=== PATIENT | male | born 1940 | race Caucasian/White ===

== ENCOUNTER → 2017-09-18 07:37 | Outpatient (CLI) | payer MEDICARE, OTHER, SELFPAY ==
--- NOTE | 2017-09-18 08:06 | EKG12_ITS ---
Test Reason : PREOP Blood Pressure : / mmHG Vent. Rate : 064 BPM Atrial Rate : 064 BPM P-R Int : 144 ms QRS Dur : 176 ms QT Int : 492 ms P-R-T Axes : 041 122 033 degrees QTc Int : 507 ms Electronic ventricular pacemaker When compared with ECG of 17-NOV-2015 08:43, Vent. rate has decreased BY 12 BPM Confirmed by SHASHANK BAXTER MD ([id number]), newspaper managing editor ENEDINA PALOMINO ([id number] on 09/18/2017 9:01:45 AM Referred By: Raymon Pineda Confirmed By:SHASHANK BAXTER MD
[2017-09-18 08:32] LABS: Hematocrit 38.8 % (40-54); Hemoglobin 12.4 g/dl (13.0-16.5); Mean Corpuscular Hgb 28.6 pg (27.0-32.0); Mean Corpuscular Volume 89.6 fL (80-94); Mean Platelet Vol. 9.5 fl (6.2-12.0); Platelet Count 339 K/mm3 (150-450); RBC Distribution Width CV 15.3 % (11.6-14.6); RBC Distribution Width SD 49.5 fl (35.1-43.9); Red Blood Count 4.33 M/mm3 (4.6-6.2); Scan Indicated on CBC? Y/N NO; White Blood Count 16.6 K/mm3 (4.4-11.0)
[2017-09-18 08:45] LABS: Anion Gap 8 (5-15); BUN 27 mg/dL (7-18); BUN/Creat Ratio 23.3 RATIO (10-20); Calcium,Total 8.6 mg/dL (8.5-10.1); Chloride 108 mmol/L (98-107); Creatinine, Serum 1.16 mg/dL (0.70-1.30); EST Glomerular Filtration Rate 65 mL/min (>60); Est Glom Filt Rate - Afr Amer 78 mL/min (>60); Glucose 121 mg/dL (74-106); Potassium 3.8 mmol/L (3.5-5.1); Sodium Level 146 mmol/L (136-145)
== END ==
PROVIDERS: Family Provider Internal Medicine; PCP Internal Medicine; Visit Provider Specialist
DX: Z01.810 Encounter for preprocedural cardiovascular examination (principal); Z01.818 Encounter for other preprocedural examination
CPT/HCPCS: 36415; 80048; 85027; 93005

== ENCOUNTER → 2017-11-02 09:44 | Outpatient (CLI) | payer MEDICARE, OTHER, SELFPAY ==
[2017-11-02 10:48] LABS: PSA,Total- Diagnostic 0.01 ng/mL (0.0-4.0)
== END ==
PROVIDERS: Family Provider Internal Medicine; PCP Internal Medicine; Visit Provider Radiology Radiation Oncology
DX: Z85.46 Personal history of malignant neoplasm of prostate (principal)
CPT/HCPCS: 36415; 84153

== ENCOUNTER → 2018-02-14 14:13 | Outpatient (CLI) | payer MEDICARE, OTHER, SELFPAY ==
[2018-02-14 15:22] LABS: Absolute Lymphocyte Count 10.83 X10^3/ul (0.83-4.51); Absolute Neutrophil Count 5.3 X10^3/uL (2.0-7.7); Basophil# 0.07 X10^3/uL; Basophil% 0.4 % (0-1); Eosinophil# 0.44 X10^3/uL; Eosinophils% 2.5 % (0-5); Hematocrit 36.3 % (40-54); Hemoglobin 11.6 g/dl (13.0-16.5); Lymphocyte # 10.83 X10^3/ul (4.0); Lymphocyte % 62.2 % (19-41); Mean Corpuscular Hgb 29.1 pg (27.0-32.0); Mean Platelet Vol. 9.7 fl (6.2-12.0); Monocyte# 0.79 X10^3/uL; Monocyte% 4.5 % (0-10); Neutrophil # 5.27 X10^3/uL (2.7-7.7); Neutrophil % 30.3 % (47-70); Platelet Count 282 K/mm3 (150-450); RBC Distribution Width CV 15.4 % (11.6-14.6); RBC Distribution Width SD 50.5 fl (35.1-43.9); Red Blood Count 3.99 M/mm3 (4.6-6.2); White Blood Count 17.4 K/mm3 (4.4-11.0)
[2018-02-14 15:24] LABS: Differential Indicated SCAN CRITERIA MET; POSITIVE COUNT NO; POSITIVE DIFFERENTIAL YES; POSITIVE MORPHOLOGY NO
[2018-02-14 15:39] LABS: ALB/GLOB Ratio 1.2 RATIO (0.9-2.4); AST(SGOT) 17 U/L (15-37); Alanine Aminotransfer ALT/SGPT 22 U/L (16-61); Albumin, Serum 3.3 g/dL (3.2-5.0); Alkaline Phosphatase 83 U/L (45-117); Anion Gap 7 (5-15); BUN 30 mg/dL (7-18); BUN/Creat Ratio 24.6 RATIO (10-20); Calcium,Total 8.9 mg/dL (8.5-10.1); Chloride 107 mmol/L (98-107); Creatinine, Serum 1.22 mg/dL (0.70-1.30); EST Glomerular Filtration Rate 61 mL/min (>60); Est Glom Filt Rate - Afr Amer 74 mL/min (>60); Globulin 2.8 g/dL (2.2-4.2); Glucose 95 mg/dL (74-106); PSA,Total- Diagnostic 0.02 ng/mL (0.0-4.0); Potassium 4.6 mmol/L (3.5-5.1); Protein, Total 6.1 g/dL (6.4-8.2); Sodium Level 144 mmol/L (136-145)
[2018-02-14 15:43] LABS: Differential Comment SCANNED
== END ==
PROVIDERS: Family Provider Internal Medicine; PCP Internal Medicine; Referring Provider Internal Medicine Medical Oncology; Visit Provider Internal Medicine Medical Oncology
DX: C91.10 Chronic lymphocytic leukemia of B-cell type not having achieved remission (principal); C61 Malignant neoplasm of prostate
CPT/HCPCS: 36415; 80053; 84153; 85025

== ENCOUNTER → 2018-04-13 11:37 | Outpatient (CLI) | payer MEDICARE, OTHER, SELFPAY ==
[2018-04-13 12:46] LABS: PSA,Total- Diagnostic 0.01 ng/mL (0.0-4.0)
--- OUTSIDE RECORDS SUMMARY | 2018-06-07 19:55 | XMS RPT_ITS ---
:1940 Author Organization [place] Support Name Relationship Address Phone JENIFER ANN Unavailable [address] + [place] [address] S Unavailable Unavailable Unavailable SETH JENIFER Unavailable [address] + [place] [address] S Unavailable Unavailable Unavailable SETH, JENIFER Unavailable [address] + [place] [address] S Unavailable Unavailable Unavailable SETH, JENIFER Unavailable [address] + [place] [address] S Unavailable Unavailable Unavailable OAWALD, BRYAN Unavailable [address] + [place] [address] OAWALD, BRYAN Unavailable [address] + [place] [address] OAWALD, BRYAN Unavailable [address] + [place] [address] OAWALD, BRYAN Unavailable [address] + [place] [address] SETH, JENIFER Unavailable [address] + [place] [address] S Unavailable Unavailable Unavailable SETH, JENIFER Unavailable [address] + [place] [address] S Unavailable Unavailable Unavailable SETH, JENIFER Unavailable [address] + [place] [address] S Unavailable Unavailable Unavailable OAWALD, BRYAN Unavailable [address] + [place] [address] OAWALD, BRYAN Unavailable [address] + [place] [address] SETH, JENIFER Unavailable [address] + [place] [address] S Unavailable Unavailable Unavailable OAWALD, BRYAN Unavailable [address] + [place] [address] OAWALD, BRYAN Unavailable [address] + [place] [address] OAWALD, BRYAN Unavailable [address] + [place] [address] OAWALD, BRYAN Unavailable [address] + [place] [address] OAWALD, BRYAN Unavailable [address] + [place] [address] OAWALD, BRYAN Unavailable [address] + [place] [address] Care Team Providers Name Role Phone Ean Bush Attending Unavailable Hal Ballard, Betsey Primary Care Unavailable Henry Cooper Referring Unavailable Ean Bush Attending Unavailable Hal Ballard, Betsey Primary Care Unavailable Ean Bush Consulting Unavailable Raymon Pineda Attending Unavailable Raymon Pineda Referring Unavailable Hal Ballard, Betsey Primary Care Unavailable Dominga Regan Attending Unavailable Hal Ballard, Betsey Primary Care Unavailable Dominga Regan Referring Unavailable Juan Banegas Attending Unavailable Raymon Pineda Referring Unavailable Ean Bush Attending Unavailable Ean Bush Referring Unavailable Hal Ballard, Betsey Primary Care Unavailable Ean Bush Attending Unavailable Henry Cooper Referring Unavailable Hal Ballard, Betsey Primary Care Unavailable Ean Bush Consulting Unavailable Henry Cooper Attending Unavailable Hal Ballard, Betsey Primary Care Unavailable Henry Cooper Referring Unavailable BETSEY LARES MD, JR. Attending Unavailable BETSEY LARES MD, JR. Primary Care Unavailable NATALIE LAWSON MD Attending Unavailable BETSEY LARES MD, JR. Primary Care Unavailable BETSEY LARES MD, JR. Attending Unavailable BETSEY LARES MD, JR. Primary Care Unavailable ELIA PALOMINO DO Attending Unavailable BETSEY LARES MD, JR. Primary Care Unavailable BETSEY LARES MD, JR. Attending Unavailable BETSEY LARES MD, JR. Primary Care Unavailable BETSEY LARES MD, JR. Attending Unavailable BETSEY LARES MD, JR. Primary Care Unavailable AG HORNE Attending Unavailable LONNY BARNETT Attending Unavailable LONNY BARNETT Referring Unavailable YOSHI RODRÍGUEZ Referring Unavailable HSICH, LONNY M Referring Unavailable AHMED, ANWAR Attending Unavailable CASSIEICH, LONNY M Referring Unavailable WILKOFF, EPI Referring Unavailable AHMED, ANWAR Referring Unavailable ASIYA OSEI (ERI) Attending Unavailable DESTINEE, ADITHYAWAR Referring Unavailable THERESA BATISAT Referring Unavailable YESSI, EPI Referring Unavailable MORENO AVINA P Referring Unavailable MORENO AVINA P Attending Unavailable BETSEY LARES JR Referring Unavailable RICHARD KATZ Attending Unavailable BETSEY LARES JR Referring Unavailable BETSEY LARES JR Referring Unavailable HSICH, LONNY M Referring Unavailable HSICH, LONNY M Attending Unavailable HSICH, LONNY M Referring Unavailable DOMINGA HAMILTON Referring Unavailable THERESA BATISTA Attending Unavailable EPI DICKSON Referring Unavailable AG HORNE Attending Unavailable AG HORNE Referring Unavailable AG HORNE Referring Unavailable HSICH, LONNY M Attending Unavailable HSICH, LONNY M Referring Unavailable IMCA Primary Care Unavailable AG HORNE Attending Unavailable AG HORNE Referring Unavailable IMCA Referring Unavailable IMCA Primary Care Unavailable AG HORNE Attending Unavailable PROBLEMS PROBLEMS DATE TYPE CONDITION / CODE ATTENDING STATUS SOURCE 02/21/2018 Unknown C61 - Malignant Ean Bush Active [place] neoplasm of prostate Community / C61(ICD-10) Hospital Repository 09/22/2015 Active Left bundle-branch NA Active [facility] block, unspecified / Clinic Main I44.7(ICD-10) [place] Repository 01/23/2018 Active Unknown / [place] Active [facility] UNK(Unknown) [facility] Main [place] Repository 10/06/2016 Active Essential (primary) BATISTA, Active [facility] hypertension / THERESA J Clinic Main I10(ICD-10) [facility] Repository 09/24/2015 Active Other BATISTA, Active [facility] cardiomyopathies / THERESA J Clinic Main I42.8(ICD-10) [facility] Repository 12/05/2017 Active Encounter for BATISTA Active [facility] screening for other THERESA J [facility] Main disorder / [place] Z13.89(ICD-10) Repository 10/06/2016 Active 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, except Clinic Main renal pelvis / [place] C64.2(ICD-10) Repository 08/10/2016 Active Aneurysm of other NA Active [facility] specified arteries / Clinic Main I72.8(ICD-10) [facility] Repository 10/29/2017 Active 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, without Clinic Main rupture / [place] I71.4(ICD-10) Repository 11/02/2017 Unknown Z01.810 - Encounter Juan Banegas Active [place] for preprocedural [facility] examination / Repository Z01.810(ICD-10) 07/19/2017 Active Syncope and collapse COLEEN, Active [facility] / R55(ICD-10) [facility] Clinic Other [place] Repository 07/19/2017 Admitting Unknown / COLEEN, Active [facility] diagnosis UNK(Unknown) [facility] Repository 07/04/2017 Active Other specified NA Active [facility] disorders of kidney Clinic Main and ureter / [place] N28.89(ICD-10) Repository 07/04/2017 Active Polyneuropathy, NA Active [facility] unspecified / Clinic Main G62.9(ICD-10) [facility] Repository 07/04/2017 Active Unspecified NA Active [facility] abnormalities of gait Clinic Main and mobility / [place] R26.9(ICD-10) Repository 07/04/2017 Active Other abnormal NA Active [facility] glucose / Clinic Main R73.09(ICD-10) [facility] Repository 07/04/2017 Active Abnormal finding of Active [facility] blood chemistry, Clinic Main unspecified / [place] R79.9(ICD-10) Repository 07/04/2017 Active 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, [place] unspecified / Repository G60.9(ICD-10) 06/21/2017 Active Encounter for NA Active [facility] examination for Clinic Main normal comparison and [place] control in clinical Repository research program / Z00.6(ICD-10) 09/24/2015 Active Chronic systolic NA Active [facility] (congestive) heart Clinic Main failure / [place] I50.22(ICD-10) Repository PROCEDURES PROCEDURES No Procedure Records FoundRESULTS RESULTS PSA,TOTAL- DIAGNOSTIC Collected: 04/13/2018 Status: F Source: [place] 11:44 AM [facility] HOSPITAL REPOSITORY TYPE CODE TESTS RESULT OUT OF RANGE REFERENCE UNITS LAB L501.9940 0.0-4.0 ng/mL PSA, Normal DIAGNOSTIC 0.01 Result Comment: This test was performed using the TPSA assay method for the [facility] system. Values obtained with different assay methods cannot be used interchangably. When changing PSA assays in the course of monitoring a patient, additional sequential testing should be carried out to confirm baseline values. Performed By: #### L501.9940 #### [facility] [place], [address] PROGRESS Observed: 03/04/2018 Status: COMPLETED Source: [place] 9:00 AM [facility] [place] REPOSITORY HNO ID: [id number] Author: Lonny Barnett Service: (none) Author Type: Physician Type: Progress Notes Filed: 03/04/2018 10:03 AM Note Text: Heart and Vascular [facility] SECTION OF HEART FAILURE and CARDIAC TRANSPLANT MEDICINE OUTPATIENT VISIT DATE March 04, 2018 OUTPATIENT VISIT TYPE Established Patient PRIMARY CARE PHYSICIAN: Betsey Lares Jr, MD [address] [id number] CHIEF COMPLAINT: HF F/u NURSING INTAKE (Patient?s concerns and/or recent hospitalizations/ER visits): HF Nursing Assessment: Interim Hospitalizations and/or ER visits: Chest Pain: no Skipping or irregular heartbeats: no Shortness of breath at rest: no Shortness of breath with activity: no Cough: no Waking up in the middle of the night gasping for air: no Lightheadedness or dizziness: yes with positional changes Feeling like you are going to pass out: no Actually passing out: no Poor energy level: yes Unintentional weight gain: up recently Unintentional weight loss: no Swelling in your legs,feet, abdomen: no Filling up quickly when you eat: no HISTORY OF PRESENT ILLNESS: Patient started norvasc 5 mg daily after last visit and nearly passed out. Feels better after stopping this drug PAST MEDICAL HISTORY Diagnosis Date - Chronic lymphocytic leukemia (HCC) - HTN (hypertension) - Liver cyst - Non-ischemic cardiomyopathy (HCC) - Peripheral neuropathy - Prostate cancer (HCC) s/p external radiation. no resection - Splenic artery aneurysm (HCC) - Subdural hematoma (HCC) summer 2015, after heart stopped and fell, s/p evacuation - Ventricular tachycardia (HCC) in 1983 and 2015 PAST SURGICAL HISTORY Procedure Laterality Date - ARTERIAL EMBOLIZATION, NON-HEMORRHAGE/TUMOR - TEACHING MUSIC LESSONS ICD (ICDCRT) 09/2015 - PAST SURGICAL HISTORY OF Right CMC arthroplasty - PAST SURGICAL HISTORY OF percutaneous splenic artery aneurysm repair SOCIAL HISTORY Social History Substance Use Topics - Smoking status: Never Smoker - Smokeless tobacco: Never Used - Alcohol use Yes Comment: rare use FAMILY HISTORY Problem Relation Age of Onset - Stroke Mother - Hypertension Mother - Diabetes Mother - Diabetes Father - Ischemic Heart Disease Father ALLERGIES: ALLERGIES Allergen Reactions - Lisinopril Cough CURRENT MEDICATIONS: carvedilol (COREG) 25 mg tablet Take 1 tablet by mouth twice daily. ENTRESTO 49-51 mg tablet TAKE 1 TABLET BY MOUTH TWICE DAILY. iv contrast (will be provided with radiology test) CT kidney wow Inject, intravenously, once for 1 dose.No IV access, insert saline lock prior to the beginning of sedation, infusion, injection of imaging exam. Discontinue saline lock post exam. If Pt. has a central line or IVAD, may access for administration according to line specific nursing protocol. Once exam is complete flush line and de-access according to line specific nursing protocol in the CT contrast administration guidelines link. nortriptyline (PAMELOR) 75 mg capsule Take 1 capsule by mouth twice daily. atorvastatin (LIPITOR) 20 mg tablet TAKE 1 TABLET BY MOUTH ONCE DAILY. CHOLECALCIFEROL, VITAMIN D3, (VITAMIN D3 ORAL) Take 1,000 Units by mouth once daily. oxybutynin ER (DITROPAN XL) 10 mg 24 hr tablet Take 10 mg by mouth once daily. Coenzyme Q10 (CO Q-10) 400 mg cap Take 1 capsule by mouth once daily. [id number] serr (OSTEO BI-FLEX, 5-LOXIN,) 1,500-400-100 mg-unit-mg tab Take 1 tablet by mouth once daily. REVIEW OF SYSTEMS: See HPI. PHYSICAL EXAMINATION: BP 124/61 Pulse 70 Ht 177.8 cm (5' 10) Wt 88.5 kg (195 lb) SpO2 94% BMI 27.98 kg/m? which is 3 lbs less than last visit General: no distress, obese, accompanied by family Skin: No clubbing, no cyanosis. Eyes: Anicteric sclerae Neck: Neck veins are not distended, no carotid bruits Lungs: Chest clear to auscultation Heart: Rhythm: regular rate and rhythm, Rate: normal, no murmur Abdomen: Distended, small hematoma right mid lateral quadrant. ?No HSM, normal bowel sounds Extremities:+1 edema right ankle, no edema left leg Component Latest Ref Rng AND Units 05/29/2017 07/04/2017 12/05/2017 Protein, Total 6.3 - 8.0 g/dL 6.1 (L) Albumin 3.9 - 4.9 g/dL 3.9 Calcium 8.5 - 10.2 mg/dL 9.0 9.4 Bilirubin, Total 0.2 - 1.3 mg/dL 0.4 Alkaline Phosphatase 36 - 108 U/L 94 AST 14 - 40 U/L 21 Glucose 74 - 99 mg/dL 106 (H) 87 BUN 9 - 24 mg/dL 21 30 (H) Creatinine 0.73 - 1.22 mg/dL 1.16 1.15 Sodium 136 - 144 mmol/L 142 143 Potassium 3.7 - 5.1 mmol/L 4.4 4.1 Chloride 97 - 105 mmol/L 104 105 CO2 22 - 30 mmol/L 27 26 Anion Gap 9 - 18 mmol/L 11 12 ALT 10 - 54 U/L 18 eGFR- >60 >60 eGFR-All Other Races . >60 >60 WBC 3.70 - 11.00 k/uL 13.80 (H) RBC 4.20 - 6.00 m/uL 4.57 Hemoglobin 13.0 - 17.0 g/dL 13.5 Hematocrit 39.0 - 51.0 % 41.0 MCV 80.0 - 100.0 fL 89.7 MCH 26.0 - 34.0 pG 29.5 MCHC 30.5 - 36.0 g/dL 32.9 RDW-CV 11.5 - 15.0 % 14.6 Platelet Count 150 - 400 k/uL 298 MPV 9.0 - 12.7 fL 9.6 Absolute nRBC <0.01 k/uL <0.01 Cr[place] Free, Serum 3.30 - 19.40 mg/L 12.2 Lambda Free, Serum 5.7 - 26.3 mg/L 14.5 K/L Ratio, Serum 0.26 - 1.65 0.84 Creatinine (POCT) 0.7 - 1.4 mg/dL 1.20 eGFR- (POCT) mL/min/1.73 m2 >60 eGFR-All Other Races (POCT) mL/min/1.73 m2 58 Hemoglobin A1C 4.3 - 5.6 % 6.4 (H) Estimated Average Glucose mg/dL 137 Result (PA) No M protein is identified. No M protein is identified. Staff Review ([facility]) Reviewed by Misbah Turner M.D., PhD ([id number]) [facility] Result No M protein is identified. No M protein is identified. Staff Review ([facility]) Reviewed by Misbah Turner M.D., PhD ([id number]) NT Pro BNP <450 pg/mL ??? CARDIOVASCULAR MEDICINE TESTING: Echocardiogram 07/04/16 LVEF = 34 ? 5% (2D biplane) (Visually EF appears <35%). ? Echo 11/23/17: The left ventricle is dilated. LVEF = 45 ? 5% (visual est.) - The right ventricle is normal in size. Right ventricular systolic function is normal. The left atrial cavity is mildly dilated. - Mild to moderate (1-2+) MR. Mild to moderate (1-2+) AI. Exam was compared with the prior echocardiographic exam performed on 07/04/2016 Ejection fraction and MR have improved. ICD check 02/13/18: PRESENTING EGM: /BV? BATTERY STATUS: Normal and shows no significant depletion.? COUNTERS SINCE : 11/12/17? ATRIAL ARRHYTHMIAS: There have been 0 triggered episodes of atrial high rates. Total time 0%. ? VENTRICULAR ARRHYTHMIAS: There have been no ventricular detections.? LEAD MEASUREMENTS: Sensing is appropriate. Review of the lead impedance trends are normal.? OTHER DIAGNOSTICS: Total V pacing 99.8%.? FOLLOW UP: Continue with 3 month remotes and yearly in-clinic visits. Rina Shea RN ? IMPRESSION Mr. Ann is a 77 year old male with a history of hypertension, LBBB, VT with syncope and non ischemic cardiomyopathy s/p BiV ICD in September 2015 when he was evaluated for heart failure. His admission in September of 2015 was associated with a drop in EF from 54% to 20% within a year in the setting of a syncopal event that was felt to be VT/VF. The etiology of this decline in EF is uncertain and may be due to tachycardia mediated due to VT, LBBB induced or viral/idiopathic. His coronary angiogram did not show obstructive coronary disease. Unfortunately, since September he?developed a subdural hematoma, likely during the syncopal event, which required surgical drainage in early November 2015. He was doing better and at last visit I increased his?Entresto. ?Then I reduced it again in January because he appeared dehydrated and fell after tripping over some stuff around the house. ?In November 2017 he had another fall and has hypertension in my office. I added norvasc 5 mg daily and he became light headed. Norvasc was discontinued and he has done well. Functional?NYHA class II, Stage C. LVEF 45% ?? ?I spent 30?minutes in this visit, with more than 50% of the time devoted to patient counseling. ?? PLAN AND RECOMMENDATIONS: 1. Continue current medications 2. Follow-up with me in 6 months ? Lonny Barnett MD March 04, 2018 9:50 AM ?? CC MD Yoshi Bender Jr, MD CNOV Observed: 03/04/2018 Status: COMPLETED Source: [place] 8:15 AM [facility] REPOSITORY Office Visit (TREV CHF ALEXI) JAIME ANN ([id number]) 1940 M Date Time Provider Department 03/04/18 8:15 AM LONNY BARNETT CHF ALEXI During your visit today, we recorded the following information about you: Pulse Blood pressure Weight Height 70/minute 124/61 88.5 kg 1.778 m Lonny Barnett MD 03/04/2018 10:03 AM [facility] Heart and Vascular [facility] SECTION OF HEART FAILURE and CARDIAC TRANSPLANT MEDICINE OUTPATIENT VISIT DATE March 04, 2018 OUTPATIENT VISIT TYPE Established Patient PRIMARY CARE PHYSICIAN: Betsey Lares Jr, MD [address] [place] [address] CHIEF COMPLAINT: HF F/u NURSING INTAKE (Patient?s concerns and/or recent hospitalizations/ER visits): HF Nursing Assessment: Interim Hospitalizations and/or ER visits: Chest Pain: no Skipping or irregular heartbeats: no Shortness of breath at rest: no Shortness of breath with activity: no Cough: no Waking up in the middle of the night gasping for air: no Lightheadedness or dizziness: yes with positional changes Feeling like you are going to pass out: no Actually passing out: no Poor energy level: yes Unintentional weight gain: up recently Unintentional weight loss: no Swelling in your legs,feet, abdomen: no Filling up quickly when you eat: no HISTORY OF PRESENT ILLNESS: Patient started norvasc 5 mg daily after last visit and nearly passed out. Feels better after stopping this drug PAST MEDICAL HISTORY Diagnosis Date - Chronic lymphocytic leukemia (HCC) - HTN (hypertension) - Liver cyst - Non-ischemic cardiomyopathy (HCC) - Peripheral neuropathy - Prostate cancer (HCC) s/p external radiation. no resection - Splenic artery aneurysm (HCC) - Subdural hematoma (HCC) summer 2015, after heart stopped and fell, s/p evacuation - Ventricular tachycardia (HCC) in 1983 and 2015 PAST SURGICAL HISTORY Procedure Laterality Date - ARTERIAL EMBOLIZATION, NON-HEMORRHAGE/TUMOR - TEACHING MUSIC LESSONS ICD (ICDCRT) 09/2015 - PAST SURGICAL HISTORY OF Right CMC arthroplasty - PAST SURGICAL HISTORY OF percutaneous splenic artery aneurysm repair SOCIAL HISTORY Social History Substance Use Topics - Smoking status: Never Smoker - Smokeless tobacco: Never Used - Alcohol use Yes Comment: rare use FAMILY HISTORY Problem Relation Age of Onset - Stroke Mother - Hypertension Mother - Diabetes Mother - Diabetes Father - Ischemic Heart Disease Father ALLERGIES: ALLERGIES Allergen Reactions - Lisinopril Cough CURRENT MEDICATIONS: carvedilol (COREG) 25 mg tablet Take 1 tablet by mouth twice daily. ENTRESTO 49-51 mg tablet TAKE 1 TABLET BY MOUTH TWICE DAILY. iv contrast (will be provided with radiology test) CT kidney wow Inject, intravenously, once for 1 dose.No IV access, insert saline lock prior to the beginning of sedation, infusion, injection of imaging exam. Discontinue saline lock post exam. If Pt. has a central line or IVAD, may access for administration according to line specific nursing protocol. Once exam is complete flush line and de-access according to line specific nursing protocol in the CT contrast administration guidelines link. nortriptyline (PAMELOR) 75 mg capsule Take 1 capsule by mouth twice daily. atorvastatin (LIPITOR) 20 mg tablet TAKE 1 TABLET BY MOUTH ONCE DAILY. CHOLECALCIFEROL, VITAMIN D3, (VITAMIN D3 ORAL) Take 1,000 Units by mouth once daily. oxybutynin ER (DITROPAN XL) 10 mg 24 hr tablet Take 10 mg by mouth once daily. Coenzyme Q10 (CO Q-10) 400 mg cap Take 1 capsule by mouth once daily. [id number] serr (OSTEO BI-FLEX, 5-LOXIN,) 1,500-400-100 mg-unit-mg tab Take 1 tablet by mouth once daily. REVIEW OF SYSTEMS: See HPI. PHYSICAL EXAMINATION: BP 124/61 Pulse 70 Ht 177.8 cm (5' 10) Wt 88.5 kg (195 lb) SpO2 94% BMI 27.98 kg/m? which is 3 lbs less than last visit General: no distress, obese, accompanied by family Skin: No clubbing, no cyanosis. Eyes: Anicteric sclerae Neck: Neck veins are not distended, no carotid bruits Lungs: Chest clear to auscultation Heart: Rhythm: regular rate and rhythm, Rate: normal, no murmur Abdomen: Distended, small hematoma right mid lateral quadrant. ?No HSM, normal bowel sounds Extremities:+1 edema right ankle, no edema left leg Component Latest Ref Rng AND Units 05/29/2017 07/04/2017 12/05/2017 Protein, Total 6.3 - 8.0 g/dL 6.1 (L) Albumin 3.9 - 4.9 g/dL 3.9 Calcium 8.5 - 10.2 mg/dL 9.0 9.4 Bilirubin, Total 0.2 - 1.3 mg/dL 0.4 Alkaline Phosphatase 36 - 108 U/L 94 AST 14 - 40 U/L 21 Glucose 74 - 99 mg/dL 106 (H) 87 BUN 9 - 24 mg/dL 21 30 (H) Creatinine 0.73 - 1.22 mg/dL 1.16 1.15 Sodium 136 - 144 mmol/L 142 143 Potassium 3.7 - 5.1 mmol/L 4.4 4.1 Chloride 97 - 105 mmol/L 104 105 CO2 22 - 30 mmol/L 27 26 Anion Gap 9 - 18 mmol/L 11 12 ALT 10 - 54 U/L 18 eGFR- >60 >60 eGFR-All Other Races . >60 >60 WBC 3.70 - 11.00 k/uL 13.80 (H) RBC 4.20 - 6.00 m/uL 4.57 Hemoglobin 13.0 - 17.0 g/dL 13.5 Hematocrit 39.0 - 51.0 % 41.0 MCV 80.0 - 100.0 fL 89.7 MCH 26.0 - 34.0 pG 29.5 MCHC 30.5 - 36.0 g/dL 32.9 RDW-CV 11.5 - 15.0 % 14.6 Platelet Count 150 - 400 k/uL 298 MPV 9.0 - 12.7 fL 9.6 Absolute nRBC <0.01 k/uL <0.01 [place] Free, Serum 3.30 - 19.40 mg/L 12.2 Lambda Free, Serum 5.7 - 26.3 mg/L 14.5 K/L Ratio, Serum 0.26 - 1.65 0.84 Creatinine (POCT) 0.7 - 1.4 mg/dL 1.20 eGFR- (POCT) mL/min/1.73 m2 >60 eGFR-All Other Races (POCT) mL/min/1.73 m2 58 Hemoglobin A1C 4.3 - 5.6 % 6.4 (H) Estimated Average Glucose mg/dL 137 Result ([facility]) No M protein is identified. No M protein is identified. Staff Review ([facility]) Reviewed by Misbah Turner M.D., PhD ([id number]) [facility] Result No M protein is identified. No M protein is identified. Staff Review ([facility]) Reviewed by Misbah Turner M.D., PhD ([id number]) NT Pro BNP <450 pg/mL ??? CARDIOVASCULAR MEDICINE TESTING: Echocardiogram 07/04/16 LVEF = 34 ? 5% (2D biplane) (Visually EF appears <35%). ? Echo 11/23/17: The left ventricle is dilated. LVEF = 45 ? 5% (visual est.) - The right ventricle is normal in size. Right ventricular systolic function is normal. The left atrial cavity is mildly dilated. - Mild to moderate (1-2+) MR. Mild to moderate (1-2+) AI. Exam was compared with the prior echocardiographic exam performed on 07/04/2016 Ejection fraction and MR have improved. ICD check 02/13/18: PRESENTING EGM: /BV? BATTERY STATUS: Normal and shows no significant depletion.? COUNTERS SINCE : 11/12/17? ATRIAL ARRHYTHMIAS: There have been 0 triggered episodes of atrial high rates. Total time 0%. ? VENTRICULAR ARRHYTHMIAS: There have been no ventricular detections.? LEAD MEASUREMENTS: Sensing is appropriate. Review of the lead impedance trends are normal.? OTHER DIAGNOSTICS: Total V pacing 99.8%.? FOLLOW UP: Continue with 3 month remotes and yearly in-clinic visits. Rina Shea RN ? IMPRESSION Mr. Ann is a 77 year old male with a history of hypertension, LBBB, VT with syncope and non ischemic cardiomyopathy s/p BiV ICD in September 2015 when he was evaluated for heart failure. His admission in September of 2015 was associated with a drop in EF from 54% to 20% within a year in the setting of a syncopal event that was felt to be VT/VF. The etiology of this decline in EF is uncertain and may be due to tachycardia mediated due to VT, LBBB induced or viral/idiopathic. His coronary angiogram did not show obstructive coronary disease. Unfortunately, since September he?developed a subdural hematoma, likely during the syncopal event, which required surgical drainage in early November 2015. He was doing better and at last visit I increased his?Entresto. ?Then I reduced it again in January because he appeared dehydrated and fell after tripping over some stuff around the house. ?In November 2017 he had another fall and has hypertension in my office. I added norvasc 5 mg daily and he became light headed. Norvasc was discontinued and he has done well. Functional?NYHA class II, Stage C. LVEF 45% ?? ?I spent 30?minutes in this visit, with more than 50% of the time devoted to patient counseling. ?? PLAN AND RECOMMENDATIONS: 1. Continue current medications 2. Follow-up with me in 6 months ? Lonny Barnett MD March 04, 2018 9:50 AM ?? CC MD Yoshi Bender Jr, MD Referring Provider: LONNY BARNETT [[id number]] Allergies As of Date: 03/04/2018 Noted Allergy Reaction LISINOPRIL 07/04/2016 3 - Cough Date Reviewed: 03/04/2018 Reviewed by: Venkata (Rn) JOSE DE JESUS Wilson - Fully Assessed Reason for Visit: Follow Up [171] Primary Visit Diagnosis:Chronic systolic CHF (congestive heart failure) (HCC) [I50.22] Other Visit Diagnoses:LBBB (left bundle branch block) [I44.7] Cardiomyopathy, nonischemic (HCC) [I42.8] VT (ventricular tachycardia) (HCC) [I47.2] Biventricular ICD (implantable cardioverter-defibrillator) in place [Z95.810] Syncope and collapse [R55] Subdural hematoma (HCC) [S06.5X9A] Essential hypertension [I10] Order(s):atorvastatin (LIPITOR) 20 mg tabletTake 1 tablet by mouth once daily.Disp: 30 tabletRfl: 11 Prescriptions as of 03/04/2018 Sig: ATORVASTATIN 20 MG TABLET Take 1 tablet by mouth once d* CARVEDILOL 25 MG TABLET Take 1 tablet by mouth twice * ENTRESTO 49 MG-51 MG TABLET TAKE 1 TABLET BY MOUTH TWICE * IV CONTRAST (RADIOLOGY PROCED* CT kidney wow Inject, intrave* NORTRIPTYLINE 75 MG CAPSULE Take 1 capsule by mouth twice* VITAMIN D3 ORAL Take 1,000 Units by mouth onc* OXYBUTYNIN CHLORIDE ER 10 MG * Take 10 mg by mouth once percy* COENZYME Q10 400 MG CAPSULE Take 1 capsule by mouth once * GLUCOSAMINE [id number] * Take 1 tablet by mouth once d* Problem List As Of Date 03/04/2018 Noted Resolved Left bundle branch block [I44.7] INVALID FOR* Priority: C Hypertension [I10] INVALID FOR*10/06/2016 More... Near syncope [R55] INVALID FOR* Hx of ventricular tachycardia [Z86.79] INVALID FOR* Splenic artery aneurysm (HCC) [I72.8] INVALID FOR* Cellulitis due to MRSA [L03.90, B95.62] INVALID FOR* Syncope [R55] INVALID FOR* Priority: A More... SUMMARY INVALID FOR* Priority: Mild More... 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 Medications Discontinued During This Encounter sacubitril-valsartan (ENTRESTO) 24-2* 60 t* 11 02/16/2017 03/04/2018 Route: ORAL Sig: Take 1 tablet by mouth twice daily. Disc: Changing Therapy/Dosage Form atorvastatin (LIPITOR) 20 mg tablet 30 t* 11 06/12/2017 03/04/2018 Sig: TAKE 1 TABLET BY MOUTH ONCE DAILY. Disc: Reason for discontinue is not on file. Disposition: Return in about 6 months (around 09/02/2018). Follow-up and Disposition History Recorded Encounter Status:Closed by LONNY BARNETT MD on 03/04/18 ONCOLOGY VISIT REPORT Observed: 02/21/2018 Status: F Source: [place] 2:00 PM [facility] REPOSITORY [facility] [address] [place] [id number] OFFICE VISIT Date of Service: 02/21/18 1355 MR#: [id number] Acct: [id number] Name: JAIME ANN Gab Rep #: [id number] : 1940 From: Ean Bush MD Age/Sex: 77/M Location: OMD Status: Signed Subjective - Date of Service Date of Service:: 02/21/18 - Chief Complaint F/u for CLL and Prostate cancer.. - History of Present Illness 77y.o.man was diagnosed with CLL stage 0 in 2003. He has not required therapy. He was diagnosed with Prostate Cancer stage IIA, finished Radiation therapy in July 2015 and on LHRH agonist by Dr. Cooper. Comes in for follow up. He feels well. - Past Medical/Social History Past Medical History Past Medical History: Hypertension Other Past Medical History: Ventricular Tachycardia Cancer: Leukemia,Prostate cancer Past Surgical History Surgical: Colonoscopy,Pacemaker Other Surgical History: Surgery to remove blood from brain after a fall. Family History Paternal Past Medical History: Heart disease Maternal Past Medical History: Stroke Social History Social History: No changes Smoking Status Never smoker Review of Systems Constitutional:: Denies: Fever, Sweats, Weight loss, Appetite change, Chills Cardiovascular:: Denies: Chest pain, Palpitations, Dyspnea on exertion, Orthopnea, PND, Shortness of breath Respiratory: Denies: Cough, Hemoptysis, Shortness of Breath, Wheezing Gastrointestinal:: Denies: Abdominal pain, Nausea, Vomiting, Diarrhea, Constipation, Hematochezia Genitourinary: Denies: Dysuria, Hematuria, 15, Flank pain Musculoskeletal:: Denies: Back pain, Myalgia, Arthralgia Skin: Denies: Rash, Skin Changes, Wounds Neurological:: Denies: Headache, Dizziness, Visual changes, Tinnitus, Hearing loss Psychiatric: Denies: Anxiety, Depression, Homicidal Ideations, Suicidal Ideations Vital Signs Height 5 ft 10 in Weight: 88.768 kg Weight in Pounds 195.7 lbs Pulse Ox 96 - Physical Exam General: Alert, Oriented x3, No apparent distress HEENT: Atraumatic, PERRLA, EOMI, Normocephalic Oropharynx:: Dry mucosa Neck:: Supple, Trachea midline. Negative for: JVD, bilateral Cardiac:: Regular rate, Regular rhythm, Normal S1, Normal S2. Negative for: Murmur Lungs: Clear to auscultation, Excusion symmetrical. Negative for: Rhonchi, Wheezes Abdomen:: Bowel sounds x 4, Soft, Non-tender, Non-distended. Negative for: Hepatosplenomegaly Extremities:: Negative for: Cyanosis, Edema Neurological: Neuro grossly intact Skin:: Negative for: Lesions, Rash, Petechiae, Ecchymosis Psychiatric:: Appropriate affect, Euthymic Lymphatics:: Negative for: Cervical lymphadenopathy, Supraclavicular lymphadenopathy, Axillary lymphadenopathy Laboratory Data: Laboratory Tests WBC Hgb Hct Plt Count Absolute Neuts (auto) Absolute Lymphs (auto) Creatinine 1.22 Total PSA 0.02 Assessment and Plan CLL-stage 0, clinically stable. Prostate cancer, PSA undetectable. Plan is to continue observation. Continue follow up with urology. RTC 6 months with CBC/CMP/LDH/PSA. Medications: Prescriptions This Visit Medication Instructions Recorded Primary Care Provider: Betsey Lares Referring Provider: - Problem List (1) CLL (chronic lymphocytic leukemia) Status: Chronic (2) Prostate cancer Status: Chronic Code Visit Office Visits / Consults: 23778 OV L3 Est 02/21/18 1400 <Electronically signed by Ean Bush MD> Date Ean Bush MD Cosigner Signature: Date (if applicable) CC: Betsey Lares Jr., MD CBC W/DIFF, AUTOMATED Collected: 02/14/2018 Status: F Source: [place] 2:27 PM [facility] REPOSITORY Order Comment: Reason for Laboratory Test . TYPE CODE TESTS RESULT OUT OF RANGE REFERENCE UNITS LAB L100.1000 4.4-11.0 K/mm3 High WBC 17.4 LAB L100.1200 4.6-6.2 M/mm3 Low RBC 3.99 LAB L100.1300 13.0-16.5 g/dl Low HGB 11.6 LAB L100.1400 40-54 % Low HCT 36.3 LAB L100.1500 80-94 fL Normal MCV 91.0 LAB L100.1600 27.0-32.0 pg Normal MCH 29.1 LAB L100.1700 32-36 g/gl Normal MCHC 32.0 LAB L100.1810 11.6-14.6 % High RDW CV 15.4 LAB L100.1820 35.1-43.9 fl High RDW SD 50.5 LAB L100.1900 150-450 K/mm3 Normal PLT 282 LAB L100.2000 6.2-12.0 fl Normal MPV 9.7 LAB L100.2100 47-70 % Low NEUT% 30.3 LAB L100.2200 19-41 % High LY% 62.2 LAB L100.2300 0-10 % Normal MONO% 4.5 LAB L100.2400 0-5 % Normal EO% 2.5 LAB L100.2500 0-1 % Normal BASO% 0.4 LAB L100.2550 0.0-0.9 % Normal IM GRAN % 0.100 Result Comment: IG% - Immature Granulocytes (promyelocytes, myelocytes and metamyelocytes) > 1% indicates that a LEFT SHIFT is Present. LAB L100.2620 2.0-7.7 X10 3/uL Normal Absolute Neut 5.3 LAB L100.2720 0.83-4.51 X10 3/ul High Absolute Lymph 10.83 LAB L100.4500 Normal SMEAR COMMENT SCANNED Result Comment: LYMPHOCYTOSIS NOTED Performed By: #### L100.0100, L500.4050, L501.9940 #### [facility] [address] [place], [place], [address] COMPREHENSIVE METABOLIC Collected: 02/14/2018 Status: F Source: [facility] 2:27 PM [facility] REPOSITORY Order Comment: Reason for Laboratory Test . TYPE CODE TESTS RESULT OUT OF RANGE REFERENCE UNITS LAB L501.0100 74-106 mg/dL Normal GLU 95 Result Comment: Please note revised GLUCOSE reference range effective 2017. LAB L501.1000 7-18 mg/dL High BUN 30 LAB L501.1100 0.70-1.30 mg/dL Normal CREAT,SERUM 1.22 Result Comment: The validity of the calculated GFR AND GFRAA in patients over 70 years has not been determined. Clinical correlation is essential. LAB L501.1110 >60 mL/min Normal EST GFR 61 Result Comment: Non- GFR Calc LAB L501.1115 >60 mL/min Normal EST GFR - AA 74 Result Comment: GFR Calc LAB L501.1300 10-20 RATIO High BUN/CRE 24.6 LAB L501.1500 6.4-8.2 g/dL Low T PROT 6.1 LAB L501.1800 3.2-5.0 g/dL Normal ALB 3.3 LAB L501.1950 2.2-4.2 g/dL Normal GLOB 2.8 LAB L501.2000 0.9-2.4 RATIO Normal A/G 1.2 LAB L501.2200 8.5-10.1 mg/dL CA Normal 8.9 LAB L501.4100 15-37 U/L Normal AST 17 LAB L501.4305 45-117 U/L Normal ALK P 83 LAB L501.4405 16-61 U/L Normal ALT 22 LAB L501.4600 0.20-1.00 mg/dL T Normal BILI 0.30 LAB L501.5300 136-145 mmol/L NA Normal 144 LAB L501.5600 3.5-5.1 mmol/L K Normal 4.6 LAB L501.5900 98-107 mmol/L CL Normal 107 LAB L501.6100 21.0-32.0 mmol/L Normal CO2 30.0 LAB L501.6200 5-15 Normal GAP 7 Performed By: #### L100.0100, L500.4050, L501.9940 #### [facility] [address] [place], [address] PSA,TOTAL- DIAGNOSTIC Collected: 02/14/2018 Status: F Source: [place] 2:27 PM [facility] REPOSITORY Order Comment: Reason for Laboratory Test . TYPE CODE TESTS RESULT OUT OF RANGE REFERENCE UNITS LAB L501.9940 0.0-4.0 ng/mL PSA, Normal DIAGNOSTIC 0.02 Result Comment: This test was performed using the TPSA assay method for the Regalister chemistry system. Values obtained with different assay methods cannot be used interchangably. When changing PSA assays in the course of monitoring a patient, additional sequential testing should be carried out to confirm baseline values. Performed By: #### L100.0100, L500.4050, L501.9940 #### [facility] [address] [place], [address] CBC Collected: 02/14/2018 Status: F Source: [facility] 8:23 AM [facility] REPOSIT[facility] TYPE CODE TESTS RESULT OUT OF REFERENCE UNITS RANGE LAB WBC(LOINC) 4.60-10.80 10 3/mcL High WBC 18.10 LAB RBCCT(LOINC 4.04-6.13 10 6/mcL ) RBC 4.31 LAB HGB(LOINC) 14.0-18.0 G/dL Low Hgb 12.4 LAB HCT(LOINC) 42.0-52.0 % Low Hct 38.3 LAB MCV(LOINC) 80.0-94.0 fL MCV 88.9 LAB MCH(LOINC) 27.0-31.2 pg MCH 28.8 LAB MCHC(LOINC) 31.8-35.4 G/dL MCHC 32.4 LAB RDW(LOINC) 11.5-14.5 % High RDW 15.9 LAB PLT(LOINC) 130-400 10 3/mcL Platelet 288 LAB MPV(LOINC) 7.4-10.4 fL MPV 7.5 Performed By: #### CBC, MORPH, DIFF #### [id number] [place], [place] [address] .MANUAL DIFF Collected: 02/14/2018 Status: F Source: [facility] 8:23 AM [facility] REPOSITORY TYPE CODE TESTS RESULT OUT OF REFERENCE UNITS RANGE LAB NEUM(LOINC 37.0-80.0 % ) Low Neutrophil %, 29.0 Manual LAB LYMM(LOINC 10.0-50.0 % ) Lymphocyte %, 49.0 Manual LAB MONM(LOINC 1.7-13.0 % ) Monocyte %, Manual 2.0 LAB EOM(LOINC) 0.0-7.0 % Eosinophil %, 2.0 Manual LAB BASM(LOINC 0.0-2.5 % ) Basophil High %, Manual 3.0 LAB ALYM(LOINC 0.0-5.0 % ) Atypical High Lymphs 15.0 LAB ANEUM(LOIN 2.85-6.16 10 3/mcL C) Neutrophil, Abs 5.00 Manual LAB ABLYMM(AXEL 0.77-3.85 10 3/mcL NC) High Lymphocyte, Abs 11.60 Manual LAB AMONM(LOIN 0.15-1.00 10 3/mcL C) Monocyte, Abs 0.40 Manual LAB AEOSM(LOIN 0.00-0.40 10 3/mcL C) Eosinophil, Abs 0.40 Manual LAB ABASM(LOIN 0.00-0.19 10 3/mcL C) High Basophil, Abs 0.50 Manual Performed By: #### CBC, MORPH, DIFF #### [address] [place], [place] [address] .MORPH Collected: 02/14/2018 Status: F Source: [facility] 8:23 AM [facility] REPOSITORY TYPE CODE TESTS RESULT OUT OF REFERENCE UNITS RANGE LAB PLTE(LOINC ) Platelet Normal Estimate LAB POIK(LOINC ) Poik Slight LAB SMUD(LOINC ) Smudge Cells Several Performed By: #### CBC, MORPH, DIFF #### [address] [place], [place] [address] CNNURSE Observed: 01/23/2018 Status: COMPLETED Source: [place] 3:45 PM [facility] REPOSITORY Nurse Visit (CAWSTR) JAIME ANN ([id number]) 1940 M Date Time Provider Department 01/23/18 3:45 PM NURSE CARD ADMIN [facility] WSTR CAWSTR During your visit today, we recorded the following information about you: Missy Barry MA 01/28/2018 10:38 AM Signed EKG completed and given to Dr Horne for review. Missy Barry MA Referring Provider: AG HORNE [[id number]] Allergies As of Date: 01/23/2018 Noted Allergy Reaction LISINOPRIL 07/04/2016 3 - Cough Date Reviewed: 01/23/2018 Reviewed by: Gabriela (Rn) Twin - Fully Assessed Visit Diagnosis:VT (ventricular tachycardia) ([facility]) [I47.2] Prescriptions as of 01/23/2018 Sig: CARVEDILOL 25 MG TABLET Take 1 tablet by mouth twice * ENTRESTO 49 MG-51 MG TABLET TAKE 1 TABLET BY MOUTH TWICE * IV CONTRAST (RADIOLOGY PROCED* CT kidney wow Inject, intrave* NORTRIPTYLINE 75 MG CAPSULE Take 1 capsule by mouth twice* ATORVASTATIN 20 MG TABLET TAKE 1 TABLET BY MOUTH ONCE D* SACUBITRIL 24 MG-VALSARTAN 26* Take 1 tablet by mouth twice * VITAMIN D3 ORAL Take 1,000 Units by mouth onc* OXYBUTYNIN CHLORIDE ER 10 MG * Take 10 mg by mouth once percy* COENZYME Q10 400 MG CAPSULE Take 1 capsule by mouth once * GLUCOSAMINE [id number] * Take 1 tablet by mouth once d* Problem List As Of Date 01/23/2018 Noted Resolved Left bundle branch block [I44.7] INVALID FOR* Priority: C Hypertension [I10] INVALID FOR*10/06/2016 More... Near syncope [R55] INVALID FOR* Hx of ventricular tachycardia [Z86.79] INVALID FOR* Splenic artery aneurysm (HCC) [I72.8] INVALID FOR* Cellulitis due to MRSA [L03.90, B95.62] INVALID FOR* Syncope [R55] INVALID FOR* Priority: A More... SUMMARY INVALID FOR* Priority: Mild More... 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] INVALID FOR* Peripheral polyneuropathy (HCC) [G62.9] INVALID FOR* Abnormality of gait [R26.9] INVALID FOR* Disturbance of skin sensation [R20.9] INVALID FOR* Pain in both lower extremities [M79.604, M79.60*INVALID FOR* Abnormal finding of blood chemistry [R79.9] INVALID FOR* Abnormal glucose [R73.09] INVALID FOR* Visit Notes: >> Missy Barry MA Mon Jan 28, 2018 10:37 AM Status: Signed EKG completed and given to Dr Horne for review. Missy Barry MA Encounter Status:Closed by MISSY BARRY MA on 01/29/18 CNNURSE Observed: 01/23/2018 Status: COMPLETED Source: [place] 3:45 PM [facility] REPOSITORY Nurse Visit (CAWSTR) JAIME ANN ([id number]) 1940 M Date Time Provider Department 01/23/18 3:45 PM [facility] During your visit today, we recorded the following information about you: Referring Provider: AG HORNE [[id number]] Allergies As of Date: 01/23/2018 Noted Allergy Reaction LISINOPRIL 07/04/2016 3 - Cough Date Reviewed: 01/23/2018 Reviewed by: Gabriela BanksRn) Twin - Fully Assessed Reason for Visit: Nurse Visit [792] Visit Diagnosis:Left bundle branch block [I44.7] Order(s):ECG COMPLETE W INTERPRETATION [ECG01] Order #: [id number] Prescriptions as of 01/23/2018 Sig: CARVEDILOL 25 MG TABLET Take 1 tablet by mouth twice * ENTRESTO 49 MG-51 MG TABLET TAKE 1 TABLET BY MOUTH TWICE * IV CONTRAST (RADIOLOGY PROCED* CT kidney wow Inject, intrave* NORTRIPTYLINE 75 MG CAPSULE Take 1 capsule by mouth twice* ATORVASTATIN 20 MG TABLET TAKE 1 TABLET BY MOUTH ONCE D* SACUBITRIL 24 MG-VALSARTAN 26* Take 1 tablet by mouth twice * VITAMIN D3 ORAL Take 1,000 Units by mouth onc* OXYBUTYNIN CHLORIDE ER 10 MG * Take 10 mg by mouth once percy* COENZYME Q10 400 MG CAPSULE Take 1 capsule by mouth once * GLUCOSAMINE [id number] * Take 1 tablet by mouth once d* Problem List As Of Date 01/23/2018 Noted Resolved Left bundle branch block [I44.7] INVALID FOR* Priority: C Hypertension [I10] INVALID FOR*10/06/2016 More... Near syncope [R55] INVALID FOR* Hx of ventricular tachycardia [Z86.79] INVALID FOR* Splenic artery aneurysm (HCC) [I72.8] INVALID FOR* Cellulitis due to MRSA [L03.90, B95.62] INVALID FOR* Syncope [R55] INVALID FOR* Priority: A More... SUMMARY INVALID FOR* Priority: Mild More... 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] INVALID FOR* Peripheral polyneuropathy (HCC) [G62.9] INVALID FOR* Abnormality of gait [R26.9] INVALID FOR* Disturbance of skin sensation [R20.9] INVALID FOR* Pain in both lower extremities [M79.604, M79.60*INVALID FOR* Abnormal finding of blood chemistry [R79.9] INVALID FOR* Abnormal glucose [R73.09] INVALID FOR* Encounter Status:Closed by OTF RUSSELL RN on 01/30/18 PROGRESS Observed: 01/23/2018 Status: COMPLETED Source: [place] 11:44 AM [facility] REPOSITORY HNO ID: [id number] Author: Ag Horne Service: (none) Author Type: Physician Type: Progress Notes Filed: 01/23/2018 1:03 PM Note Text: PERTINENT CARDIAC HISTORY Cardiomyopathy - nonischemic, 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 2015, no recurrence Orthostatic hypotension HL LBBB Splenic artery aneurysm - coil ADHERENCE TO GUIDELINES HERACLIO-I or ARB for HF with prior LVEF<40 (NQF 0081) - met ASA or Plavix for ASHD (NQF 0067) - met Beta domingo for ASHD with prior PA or prior LVEF<40 (NQF 0070) - met Beta domingo for HF with prior LVEF<40 (NQF 0083) - met HERACLIO-I or ARB for ASHD with DM or prior LVEF<40 (NQF 0066) - met Statin therapy for ASHD or FHL or DM - met BMI documented and plan if >25 (NQF 0421) - lifestyle recommendation form Tobacco use screening and referral (NQF 0028) - lifestyle recommendation form Recommendation for whole food, plant based diet - lifestyle recommendation form CLINICAL IMPRESSION/PLAN: Jaime Ann has stable nonischemic myopathy. He is well compensated. There is no evidence of volume overload. Blood pressure Is Borderline Low. I Advised Him to Discontinue Amlodipine and Go Back to Taking His Carvedilol Twice Daily. I Asked Him to Contact Me in One Week with Vital Signs. We Can Make Further Adjustments As Necessary. He Will Continue His Current Dose of Entresto. He Reports That Labs Are Being Followed at Primary Care. I Advised Him to Keep His Follow-Up Visit in Heart Failure Clinic Next Month. I Will See Him in 8 Months or As Needed. If There Is Increased Shortness of Breath or Chest Pain, He Has Been Advised to Contact me Written and verbal health teaching given to patient, patient verbalizes understanding and agrees with treatment plan. DIAGNOSIS FOR VISIT: Cardiomyopathy Postural hypotension HISTORY OF PRESENT ILLNESS Jaime Ann returns for follow-up of his nonischemic cardio myopathy. He was recently seen in the heart failure clinic. Amlodipine was added for better blood pressure control. Shortly thereafter, he called stating that his blood pressure was very low and he was lightheaded. His amlodipine was interrupted transiently. I advised him to restart at half dose, but he apparently did not get this message. He discontinued his evening dose of carvedilol and went back on amlodipine. He continues to have problems with lightheadedness. Blood pressures have been occasionally less than 100 systolic. He's had no chest discomfort. He denies orthopnea. He's had minimal edema. He's had no syncope, palpitations, TIAs, amaurosis. He has received no therapies from his device. He recently had an EP evaluation. ALLERGIES: ALLERGIES Allergen Reactions - Lisinopril Cough CURRENT OUTPATIENT MEDICATIONS: ENTRESTO 49-51 mg tablet TAKE 1 TABLET BY MOUTH TWICE DAILY. nortriptyline (PAMELOR) 75 mg capsule Take 1 capsule by mouth twice daily. amLODIPine (NORVASC) 5 mg tablet Take 1 tablet by mouth once daily. carvedilol (COREG) 25 mg tablet Take 1 tablet by mouth twice daily. atorvastatin (LIPITOR) 20 mg tablet TAKE 1 TABLET BY MOUTH ONCE DAILY. sacubitril-valsartan (ENTRESTO) 24-26 mg tablet Take 1 tablet by mouth twice daily. CHOLECALCIFEROL, VITAMIN D3, (VITAMIN D3 ORAL) Take 1,000 Units by mouth once daily. oxybutynin ER (DITROPAN XL) 10 mg 24 hr tablet Take 10 mg by mouth once daily. Coenzyme Q10 (CO Q-10) 400 mg cap Take 1 capsule by mouth once daily. qlxhanzteop-W7-htvvjtriq serr (OSTEO BI-FLEX, 5-LOXIN,) 1,500-400-100 mg-unit-mg tab Take 1 tablet by mouth once daily. iv contrast (will be provided with radiology test) CT kidney wow Inject, intravenously, once for 1 dose.No IV access, insert saline lock prior to the beginning of sedation, infusion, injection of imaging exam. Discontinue saline lock post exam. If Pt. has a central line or IVAD, may access for administration according to line specific nursing protocol. Once exam is complete flush line and de-access according to line specific nursing protocol in the CT contrast administration guidelines link. PHYSICAL EXAMINATION: VITAL SIGNS: BP 107/64 Pulse 80 Wt 192 lb 3.2 oz (87.2kg) Chest: Clear to auscultation. Trachea is midline. Air entry is equal. Cardiac: Regular rhythm. S1 and S2 are normal. PMI is Displaced. There is a soft murmur of mitral insufficiency. Carotids are brisk without bruits. JVP is less than 10 cm. Abdomen: Soft and nontender. There are no pulsatile masses or bruits. No liver enlargement. Bowel sounds are active. Extremities: No edema. Pulses are intact and symmetrical. EKG shows AV sequential pacemaker. Electronically Signed: Ag Horne MD January 23, 2018 11:44 AM CC: Betsey Lares Jr, MD EKG1 Observed: 01/23/2018 Status: F Source: [place] 11:24 AM [facility] REPOSITORY NAME : JAIME ANN PID : [id number] : 1940 Gender : Male Race : ORD : Procedure Date : Jan 23 2018 11:24:23 Edit Date : Jan 25 2018 09:59:13 Diagnosis:AV SEQUENTIAL OR DUAL CHAMBER ELECTRONIC PACEMAKER Confirmed by AG HORNE MD ([id number]) on 01/25/2018 9:47:48 AM Ventricular Rate : 60 BPM Atrial Rate : 65 BPM QRS Duration : 176 ms Q-T Interval : 480 ms QTC Calculation(Bezet) : 480 ms R [place] : 217 degrees T [place] : 30 degrees Test Reason : Location : 136 : [facility] Overread By : AG HORNE MD Edited By : AG HORNE MD Referred By : AG HORNE Acquired by : MAEVE MCCOLLUM Observed: 01/23/2018 Status: COMPLETED Source: [place] 10:30 AM [facility] REPOSITORY Office Visit (CAWSTR) JAIME ANN ([id number]) 1940 M Date Time Provider Department 01/23/18 10:30 AM AG HORNE CAWSTR During your visit today, we recorded the following information about you: Pulse Blood pressure Weight 80/minute 107/64 87.2 kg Ag Horne MD 01/23/2018 1:03 PM Signed PERTINENT CARDIAC HISTORY Cardiomyopathy - nonischemic, 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 2015, no recurrence Orthostatic hypotension HL LBBB Splenic artery aneurysm - coil ADHERENCE TO GUIDELINES HERACLIO-I or ARB for HF with prior LVEF<40 (NQF 0081) - met ASA or Plavix for ASHD (NQF 0067) - met Beta domingo for ASHD with prior PA or prior LVEF<40 (NQF 0070) - met Beta domingo for HF with prior LVEF<40 (NQF 0083) - met HERACLIO-I or ARB for ASHD with DM or prior LVEF<40 (NQF 0066) - met Statin therapy for ASHD or FHL or DM - met BMI documented and plan if >25 (NQF 0421) - lifestyle recommendation form Tobacco use screening and referral (NQF 0028) - lifestyle recommendation form Recommendation for whole food, plant based diet - lifestyle recommendation form CLINICAL IMPRESSION/PLAN: Jaime Ann has stable nonischemic myopathy. He is well compensated. There is no evidence of volume overload. Blood pressure Is Borderline Low. I Advised Him to Discontinue Amlodipine and Go Back to Taking His Carvedilol Twice Daily. I Asked Him to Contact Me in One Week with Vital Signs. We Can Make Further Adjustments As Necessary. He Will Continue His Current Dose of Entresto. He Reports That Labs Are Being Followed at Primary Care. I Advised Him to Keep His Follow-Up Visit in Heart Failure Clinic Next Month. I Will See Him in 8 Months or As Needed. If There Is Increased Shortness of Breath or Chest Pain, He Has Been Advised to Contact me Written and verbal health teaching given to patient, patient verbalizes understanding and agrees with treatment plan. DIAGNOSIS FOR VISIT: Cardiomyopathy Postural hypotension HISTORY OF PRESENT ILLNESS Jaime Ann returns for follow-up of his nonischemic cardio myopathy. He was recently seen in the heart failure clinic. Amlodipine was added for better blood pressure control. Shortly thereafter, he called stating that his blood pressure was very low and he was lightheaded. His amlodipine was interrupted transiently. I advised him to restart at half dose, but he apparently did not get this message. He discontinued his evening dose of carvedilol and went back on amlodipine. He continues to have problems with lightheadedness. Blood pressures have been occasionally less than 100 systolic. He's had no chest discomfort. He denies orthopnea. He's had minimal edema. He's had no syncope, palpitations, TIAs, amaurosis. He has received no therapies from his device. He recently had an EP evaluation. ALLERGIES: ALLERGIES Allergen Reactions - Lisinopril Cough CURRENT OUTPATIENT MEDICATIONS: ENTRESTO 49-51 mg tablet TAKE 1 TABLET BY MOUTH TWICE DAILY. nortriptyline (PAMELOR) 75 mg capsule Take 1 capsule by mouth twice daily. amLODIPine (NORVASC) 5 mg tablet Take 1 tablet by mouth once daily. carvedilol (COREG) 25 mg tablet Take 1 tablet by mouth twice daily. atorvastatin (LIPITOR) 20 mg tablet TAKE 1 TABLET BY MOUTH ONCE DAILY. sacubitril-valsartan (ENTRESTO) 24-26 mg tablet Take 1 tablet by mouth twice daily. CHOLECALCIFEROL, VITAMIN D3, (VITAMIN D3 ORAL) Take 1,000 Units by mouth once daily. oxybutynin ER (DITROPAN XL) 10 mg 24 hr tablet Take 10 mg by mouth once daily. Coenzyme Q10 (CO Q-10) 400 mg cap Take 1 capsule by mouth once daily. [id number] serr (OSTEO BI-FLEX, 5-LOXIN,) 1,500-400-100 mg-unit-mg tab Take 1 tablet by mouth once daily. iv contrast (will be provided with radiology test) CT kidney wow Inject, intravenously, once for 1 dose.No IV access, insert saline lock prior to the beginning of sedation, infusion, injection of imaging exam. Discontinue saline lock post exam. If Pt. has a central line or IVAD, may access for administration according to line specific nursing protocol. Once exam is complete flush line and de-access according to line specific nursing protocol in the CT contrast administration guidelines link. PHYSICAL EXAMINATION: VITAL SIGNS: BP 107/64 Pulse 80 Wt 192 lb 3.2 oz (87.2kg) Chest: Clear to auscultation. Trachea is midline. Air entry is equal. Cardiac: Regular rhythm. S1 and S2 are normal. PMI is Displaced. There is a soft murmur of mitral insufficiency. Carotids are brisk without bruits. JVP is less than 10 cm. Abdomen: Soft and nontender. There are no pulsatile masses or bruits. No liver enlargement. Bowel sounds are active. Extremities: No edema. Pulses are intact and symmetrical. EKG shows AV sequential pacemaker. Electronically Signed: Ag Horne MD January 23, 2018 11:44 AM CC: MD Ag Bender Jr, MD 01/23/2018 11:45 AM Signed LIFESTYLE CHANGE A healthy lifestyle is the most important component of your overall treatment plan. Please give serious thought to the following areas and commit to making skilled nursing changes. EAT A WHOLE FOOD, PLANT BASED DIET The nutrition your body gets is more important than the medicine you take. What matters most is the overall way you eat. We encourage you to minimize the use of animal products (which include dairy and all meats except fatty fish) and use whole, unprocessed plant foods to provide your protein, vitamins and other nutrients. We have a lot of information to share with you on this topic. This is not a diet. It is a way of life that you will keep with you. EXERCISE REGULARLY It is not important to spend hours in the gym, lifting weights and perspiring heavily. A total of 2-3 hours per week of aerobic (causing you to be moderately short of breath) exercise is sufficient to improve your health. Talk to us before you begin a new exercise program, if you have heart disease or experience shortness of breath or chest pain. REDUCE STRESS Chronic emotional and physical stress leads to disease. Ways of reducing stress include meditation, visualization, prayer, yoga and other forms of relaxation therapy. Consistency is the ny. Find a technique that works for you and do it every day. CULTIVATE RELATIONSHIPS Loneliness and isolation have a major negative impact on health. Seek out others who can love, care for and nurture you. Avoid hurtful relationships. MAINTAIN IDEAL BODY WEIGHT The best way to do this is to do all the things above. Our bodies naturally find the right weight if we keep moving and feed ourselves the right food. If your BMI is greater than 25, we strongly recommend a referral to a weight management program. Please speak to us or your family physician about available programs. AVOID NICOTINE IN ALL FORMS This includes all tobacco products, whether chewed, smoked, vaped, or rubbed on the skin. Smoking cessation programs, which can make use of tobacco substitutes, medications to suppress cravings and behavior management, are available. Please contact your family physician about programs in your area. Referring Provider: AG HORNE [[id number]] Allergies As of Date: 01/23/2018 Noted Allergy Reaction LISINOPRIL 07/04/2016 3 - Cough Date Reviewed: 01/23/2018 Reviewed by: Gabriela (Rn) Twin - Fully Assessed Reason for Visit: Established Patient [175] Cmt: 6 month follow-up CM/HTN Primary Visit Diagnosis:Left bundle branch block [I44.7] Other Visit Diagnosis:Cardiomyopathy, nonischemic (HCC) [I42.8] Order(s):ECG COMPLETE W INTERPRETATION [ECG01] Order #: [id number] FUTURE carvedilol (COREG) 25 mg tabletTake 1 tablet by mouth twice daily.Disp: 180 tabletRfl: 3 Prescriptions as of 01/23/2018 Sig: CARVEDILOL 25 MG TABLET Take 1 tablet by mouth twice * ENTRESTO 49 MG-51 MG TABLET TAKE 1 TABLET BY MOUTH TWICE * NORTRIPTYLINE 75 MG CAPSULE Take 1 capsule by mouth twice* ATORVASTATIN 20 MG TABLET TAKE 1 TABLET BY MOUTH ONCE D* SACUBITRIL 24 MG-VALSARTAN 26* Take 1 tablet by mouth twice * VITAMIN D3 ORAL Take 1,000 Units by mouth onc* OXYBUTYNIN CHLORIDE ER 10 MG * Take 10 mg by mouth once percy* COENZYME Q10 400 MG CAPSULE Take 1 capsule by mouth once * GLUCOSAMINE [id number] * Take 1 tablet by mouth once d* IV CONTRAST (RADIOLOGY PROCED* CT kidney wow Inject, intrave* Problem List As Of Date 01/23/2018 Noted Resolved Left bundle branch block [I44.7] INVALID FOR* Priority: C Hypertension [I10] INVALID FOR*10/06/2016 More... Near syncope [R55] INVALID FOR* Hx of ventricular tachycardia [Z86.79] INVALID FOR* Splenic artery aneurysm (HCC) [I72.8] INVALID FOR* Cellulitis due to MRSA [L03.90, B95.62] INVALID FOR* Syncope [R55] INVALID FOR* Priority: A More... SUMMARY INVALID FOR* Priority: Mild More... 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] INVALID FOR* Peripheral polyneuropathy (HCC) [G62.9] INVALID FOR* Abnormality of gait [R26.9] INVALID FOR* Disturbance of skin sensation [R20.9] INVALID FOR* Pain in both lower extremities [M79.604, M79.60*INVALID FOR* Abnormal finding of blood chemistry [R79.9] INVALID FOR* Abnormal glucose [R73.09] INVALID FOR* Other instructions from your clinician: LIFESTYLE CHANGE A healthy lifestyle is the most important component of your overall treatment plan. Please give serious thought to the following areas and commit to making skilled nursing changes. EAT A WHOLE FOOD, PLANT BASED DIET The nutrition your body gets is more important than the medicine you take. What matters most is the overall way you eat. We encourage you to minimize the use of animal products (which include dairy and all meats except fatty fish) and use whole, unprocessed plant foods to provide your protein, vitamins and other nutrients. We have a lot of information to share with you on this topic. This is not a diet. It is a way of life that you will keep with you. EXERCISE REGULARLY It is not important to spend hours in the gym, lifting weights and perspiring heavily. A total of 2-3 hours per week of aerobic (causing you to be moderately short of breath) exercise is sufficient to improve your health. Talk to us before you begin a new exercise program, if you have heart disease or experience shortness of breath or chest pain. REDUCE STRESS Chronic emotional and physical stress leads to disease. Ways of reducing stress include meditation, visualization, prayer, yoga and other forms of relaxation therapy. Consistency is the ny. Find a technique that works for you and do it every day. CULTIVATE RELATIONSHIPS Loneliness and isolation have a major negative impact on health. Seek out others who can love, care for and nurture you. Avoid hurtful relationships. MAINTAIN IDEAL BODY WEIGHT The best way to do this is to do all the things above. Our bodies naturally find the right weight if we keep moving and feed ourselves the right food. If your BMI is greater than 25, we strongly recommend a referral to a weight management program. Please speak to us or your family physician about available programs. AVOID NICOTINE IN ALL FORMS This includes all tobacco products, whether chewed, smoked, vaped, or rubbed on the skin. Smoking cessation programs, which can make use of tobacco substitutes, medications to suppress cravings and behavior management, are available. Please contact your family physician about programs in your area. Prescriptions ordered this encounter Disp Refills Start End CARVEDILOL 25 MG TABLET 180 * 3 01/23/2018 Class: Med Update Route: ORAL Sig: Take 1 tablet by mouth twice daily. Medications Discontinued During This Encounter amLODIPine (NORVASC) 5 mg tablet 30 t* 11 11/23/2017 01/23/2018 Route: ORAL Sig: Take 1 tablet by mouth once daily. Disc: Reason for discontinue is not on file. carvedilol (COREG) 25 mg tablet 180 * 3 06/18/2017 01/23/2018 Route: ORAL Sig: Take 1 tablet by mouth twice daily. Patient taking differently: Take 25 mg by mouth once daily. Disc: Reason for discontinue is not on file. Encounter Status:Closed by AG HORNE MD on 01/23/18 HG Collected: 01/17/2018 Status: F Source: [facility] 8:43 AM [facility] REPOSITORY TYPE CODE TESTS RESULT OUT OF REFERENCE UNITS RANGE LAB WBC(LOINC) 4.60-10.80 10 3/mcL High WBC 18.20 LAB RBCCT(LOINC 4.04-6.13 10 6/mcL ) RBC 4.24 LAB HGB(LOINC) 14.0-18.0 G/dL Low Hgb 12.4 LAB HCT(LOINC) 42.0-52.0 % Low Hct 36.9 LAB MCV(LOINC) 80.0-94.0 fL MCV 87.1 LAB MCH(LOINC) 27.0-31.2 pg MCH 29.3 LAB MCHC(LOINC) 31.8-35.4 G/dL MCHC 33.7 LAB RDW(LOINC) 11.5-14.5 % High RDW 15.1 LAB PLT(LOINC) 130-400 10 3/mcL Platelet 357 LAB MPV(LOINC) 7.4-10.4 fL MPV 7.7 Performed By: #### GFR, CMP, LIPID #### [address] [id number] #### HGMP #### [address] [id number] LIPID Collected: 01/17/2018 Status: F Source: [facility] 8:43 AM [facility] REPOSITORY TYPE CODE TESTS RESULT OUT OF REFERENCE UNITS RANGE LAB CHOL(LOINC 0-200 mg/dL ) Cholesterol 156 Result Comment: Cholesterol Reference Interval: Less than 200 Desirable 200-239 Borderline high risk 240 and above High risk LAB TRIG(LOINC) 0-150 mg/dL Triglycerides 116 Result Comment: Triglyceride Reference Interval: Less than 150 Normal 150-199 Borderline high risk 200-499 High risk 500 or higher Very high risk LAB HD(LOINC) 40-60 mg/dL HDL Cholesterol 44 LAB LDL(LOINC) 0-130 mg/dL LDL Cholesterol 89 Performed By: #### GFR, CMP, LIPID #### [address] [id number] #### HGMP #### [address] [address] CMP Collected: 01/17/2018 Status: F Source: [facility] 8:43 AM [facility] REPOSITORY TYPE CODE TESTS RESULT OUT OF REFERENCE UNITS RANGE LAB GLU(LOINC) 83-110 mg/dL Glucose High Level 121 LAB NA(LOINC) 136-145 mmol/L Sodium Level 143 LAB K(LOINC) 3.5-5.1 mmol/L Potassium Level 4.4 LAB CL(LOINC) 98-107 mmol/L Chloride 105 LAB CO2(LOINC) 23-31 mmol/L CO2 30 LAB EBAL(LOINC mEq/L ) Electrolyte Balance 8.0 LAB BUN(LOINC) 7-18 mg/dL BUN High 35 LAB CRE(LOINC) 0.70-1.30 mg/dL Creatinine Lvl (s) 1.23 LAB BC(LOINC) 7-27 ratio High BUN/Creatinine 28 Ratio LAB CA(LOINC) 8.4-10.2 mg/dL Calcium Lvl 9.3 LAB PROT(LOINC 6.4-8.2 G/dL ) Low Total Protein 6.1 LAB ALB(LOINC) 3.4-4.8 G/dL Albumin Level 3.5 LAB GLB(LOINC) G/dL Globulin 2.6 LAB AG(LOINC) 1.1-2.5 ratio A/G Ratio 1.3 LAB BILT(LOINC 0.2-1.0 mg/dL ) Bili Total 0.4 LAB AP(LOINC) 40-135 U/L Alk Phos 85 LAB AST(LOINC) 10-40 U/L AST/SGOT 14 LAB ALT(LOINC) 10-35 U/L ALT/SGPT 22 Performed By: #### GFR, CMP, LIPID #### [address] [id number] #### HGMP #### [address] [address] .GFR Collected: 01/17/2018 Status: F Source: [facility] 8:43 AM [facility] REPOSITORY TYPE CODE TESTS RESULT OUT OF REFERENCE UNITS RANGE LAB GFRAA(LOINC ml/min/1.73 ) sqm GFR 69 Tun[place]ian Result Comment: GFR Population mean for , Non- Americans Ages 20-29 = 116 mL/min/1.73 sq.m. Ages 30-39 = 107 mL/min/1.73 sq.m. Ages 40-49 = 99 mL/min/1.73 sq.m. Ages 50-59 = 93 mL/min/1.73 sq.m. Ages 60-69 = 85 mL/min/1.73 sq.m. Ages 70+ = 75 mL/min/1.73 sq.m. Chronic Kidney Disease: Less than 60 mL/min/1.73 square meters End Stage Renal Disease: Less than 15 mL/min/1.73 square meters LAB GFRNO(LOINC) ml/min/1.73sqm GFR Non- 57 Result Comment: GFR Population mean for , Non- Americans Ages 20-29 = 116 mL/min/1.73 sq.m. Ages 30-39 = 107 mL/min/1.73 sq.m. Ages 40-49 = 99 mL/min/1.73 sq.m. Ages 50-59 = 93 mL/min/1.73 sq.m. Ages 60-69 = 85 mL/min/1.73 sq.m. Ages 70+ = 75 mL/min/1.73 sq.m. Chronic Kidney Disease: Less than 60 mL/min/1.73 square meters End Stage Renal Disease: Less than 15 mL/min/1.73 square meters Performed By: #### GFR, CMP, LIPID #### [address] [id number] #### HGMP #### [address] [address] CNOV Observed: 12/05/2017 Status: COMPLETED Source: [place] 1:15 PM [facility] REPOSITORY Office Visit (UROLMN) JAIME ANN ([id number]) 1940 M Date Time Provider Department 12/05/17 1:15 PM THERESA BATISTA During your visit today, we recorded the following information about you: Theresa Batista MD 12/11/2017 3:05 PM Signed [facility] FOLLOW-UP Dx: Renal Cortical Tumor- Benign - Localized -, Left HPI: The patient is 77 year old years old and returns for surveillance of Left small renal neoplasms x 2 (9 mm and 15 mm) and bilateral complex renal cysts. The patient reports no specific complaints since last follow- up. No abdominal, back, or pelvic pain. No cough, dyspnea, chest pain. No headache, visual problems or gait problems. No weight loss, anorexia, fatigue, fever, chills. Hematuria: none Obstructive voiding symptoms: none. Irritative voiding symptoms: none Flank Pain: no Urinary tract infection: no Renal calculi: no Renal disease: no DATA REVIEW LABS Creatinine Date Value Ref Range Status 07/04/2017 1.15 0.73 - 1.22 mg/dL Final 05/29/2017 1.16 0.73 - 1.22 mg/dL Final 02/06/2017 1.33 (H) 0.73 - 1.22 mg/dL Final 11/20/2016 1.16 0.73 - 1.22 mg/dL Final Creatinine (POCT) Date Value Ref Range Status 12/05/2017 1.20 0.7 - 1.4 mg/dL Final 10/29/2017 1.20 0.7 - 1.4 mg/dL Final IMAGING: Ct kidney W/WO (12/05/2017): TWO SMALL ENHANCING LEFT RENAL NEOPLASMS ARE STABLE SINCE 01/2015. ?THERE IS A SINGLE LEFT RENAL ARTERY AND A RETROAORTIC LEFT RENAL VEIN. ONE RIGHT AND TWO LEFT BOSNIAK TYPE II RENAL CYSTS. MULTIPLE SMALL TO INTERMEDIATE SIZE RETROPERITONEAL AND MESENTERIC LYMPH NODES COULD INDICATE AN INDOLENT LYMPHOMA. I personally reviewed the images from above-mentioned radiology studies and agree with the interpretation as documented. Wt: 89.8 kg (198 lb) BMI: 28.41 kg/(m2) URINARY AND SEXUAL FUNCTION INCONTINENCE: Total QoL Score: 09/25 Continence 1- No pads SEXUAL FUNCTION: Total QoL Score: 06/25 PDE-5 Use: Never Erectile Function: 5- No erections IPSS: 4 QOL: 1 PVR: N/A PAST MEDICAL HISTORY/COMORBIDITIES PAST MEDICAL HISTORY Diagnosis Date - Chronic lymphocytic leukemia (HCC) - HTN (hypertension) - Liver cyst - Non-ischemic cardiomyopathy (HCC) - Peripheral neuropathy - Prostate cancer (HCC) s/p external radiation. 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 REVIEW OF SYSTEMS: GENERAL: No weight loss, malaise or fevers NECK: Negative for lumps, goiter, pain and significant neck swelling RESPIRATORY: Negative for cough, hemoptysis, wheezing, COPD, dyspnea or shortness of breath CARDIOVASCULAR: Negative for chest pain, leg swelling, hypertension, CHF or palpitations GI: No nausea, vomiting, or diarrhea : No history of dysuria, frequency or incontinence MUSCULOSKELETAL: Negative for joint pain or swelling, back pain or muscle pain SKIN: Negative for lesions, rash, and itching PSYCH: Negative for sleep disturbance, mood disorder and recent psychosocial stressors. HEMATOLOGY/LYMPHOLOGY Negative for prolonged bleeding, bruising easily or swollen nodes ENDOCRINE: Negative for cold or heat intolerance, polyuria, polydipsia and goiter NEURO: No history of headaches, syncope, paralysis, seizures or tremors PHYSICAL EXAM: constitutional: appears healthy in no acute distress cardiovascular: normal femoral pulses to palpate respiratory: normal respiratory motion gi: abdomen soft, non-tender without masses, small umbilical hernia gu: deferred skin: no rashes or bruises noted. Neck: Supple, no adenopathy; thyroid symmetric, normal size, no bruits Extremities: Extremities normal. No deformities, edema, or skin discoloration. Good capillary refill. Lymphatic: No palpable lymph nodes. Neuro: Gait normal. Sensation grossly intact. See impression and plan outlined in detail below. Disease Specificity: Acuity: Chronic Anatomic Site: Kidney, Laterality: Left Underlying Condition/Causal Agent: Primary Associated Conditions/Manifestations: 1. Malignant neoplasm of left kidney, except renal pelvis (HCC) - ICD9: 189.0, ICD10: C64.2 (primary diagnosis) 2. Essential hypertension - ICD9: 401.9, ICD10: I10 3. Non-ischemic cardiomyopathy (HCC) - ICD9: 425.4, ICD10: I42.8 IMPRESSION AND PLAN: 77 yo male with two small enhancing L renal neoplasms and bosniakII cysts, stable since last follow up Patient doing well with no LUTS, no complaints PE small umbilical hernia. Imaging discussed with patient, he is advised he can follow up yearly so long as imaging is stable. He is in agreement with this. PLAN FU [address] kidney and sCreatinine. Theresa Batista MD [facility] Electronically Signed Referring Provider: SELF [[id number]] Allergies As of Date: 12/05/2017 Noted Allergy Reaction LISINOPRIL 07/04/2016 3 - Cough Date Reviewed: 12/05/2017 Reviewed by: Crissy Temple Ma - Fully Assessed Primary Visit Diagnosis:Malignant neoplasm of left kidney, except renal pelvis (HCC) [C64.2] Other Visit Diagnoses:Essential hypertension [I10] Non-ischemic cardiomyopathy (HCC) [I42.8] Screening for genitourinary condition [Z13.89] Screening for nephropathy [Z13.89] Renal cell carcinoma of left kidney (HCC) [C64.2] Order(s):UA CHEMSTRIP ONLY [SQUA] Order #: [id number] FUTURE UA CHEMSTRIP ONLY [SQUA] Order #: [id number] CREATININE BLD [SQCRET] Order #: [id number] FUTURE CT KIDNEY WO/W IVCON [[id number]] Order #: [id number] FUTURE iv contrast (will be provided with radiology test)CT kidney wow Inject, intravenously, once for 1 dose.No IV access, insert saline lock prior to the beginning of sedation, infusion, injection of imaging exam. Discontinue saline lock post exam. If Pt. has a central line or IVAD, may access for administration according to line specific nursing protocol. Once exam is complete flush line and de-access according to line specific nursing protocol in the CT contrast administration guidelines link.Disp: 1 EachRfl: 0 Prescriptions as of 12/05/2017 Sig: NORTRIPTYLINE 75 MG CAPSULE Take 1 capsule by mouth twice* AMLODIPINE 5 MG TABLET Take 1 tablet by mouth once d* CARVEDILOL 25 MG TABLET Take 1 tablet by mouth twice * ATORVASTATIN 20 MG TABLET TAKE 1 TABLET BY MOUTH ONCE D* SACUBITRIL 24 MG-VALSARTAN 26* Take 1 tablet by mouth twice * VITAMIN D3 ORAL Take 1,000 Units by mouth onc* OXYBUTYNIN CHLORIDE ER 10 MG * Take 10 mg by mouth once percy* COENZYME Q10 400 MG CAPSULE Take 1 capsule by mouth once * GLUCOSAMINE [id number] * Take 1 tablet by mouth once d* IV CONTRAST (RADIOLOGY PROCED* CT kidney wow Inject, intrave* Problem List As Of Date 12/05/2017 Noted Resolved Left bundle branch block [I44.7] INVALID FOR* Priority: C Hypertension [I10] INVALID FOR*10/06/2016 More... Near syncope [R55] INVALID FOR* Hx of ventricular tachycardia [Z86.79] INVALID FOR* Splenic artery aneurysm (HCC) [I72.8] INVALID FOR* Cellulitis due to MRSA [L03.90, B95.62] INVALID FOR* Syncope [R55] INVALID FOR* Priority: A More... SUMMARY INVALID FOR* Priority: Mild More... 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] INVALID FOR* Peripheral polyneuropathy (HCC) [G62.9] INVALID FOR* Abnormality of gait [R26.9] INVALID FOR* Disturbance of skin sensation [R20.9] INVALID FOR* Pain in both lower extremities [M79.604, M79.60*INVALID FOR* Abnormal finding of blood chemistry [R79.9] INVALID FOR* Abnormal glucose [R73.09] INVALID FOR* Prescriptions ordered this encounter Disp Refills Start End IV CONTRAST (RADIOLOGY PROCEDURE) 1 Ea* 0 12/05/2017 Class: In Office Sig: CT kidney wow Inject, intravenously, once for 1 dose.No IV access, insert saline lock prior to the beginning of sedation, infusion, injection of imaging exam. Discontinue saline lock post exam. If Pt. has a central line or IVAD, may access for administration according to line specific nursing protocol. Once exam is complete flush line and de-access according to line specific nursing protocol in the CT contrast administration guidelines link. Level of Service: [facility] PATIENT VISIT LEVEL 4 [[id number]] Disposition: Return in about 1 year (around 12/05/2018). Follow-up and Disposition History Recorded Encounter Status:Closed by THERESA BATISTA MD on 12/11/17 CT KIDNEY WO/W Observed: 12/05/2017 Status: F Source: [place] IVCON 11:33 AM [facility] REPOSITORY * * *Final Report* * * DATE OF EXAM: Dec 05 2017 11:33AM [facility] [place] [id number] - CT KIDNEY WO/W IVCON / PROCEDURE REASON: multiple diagnoses * * * * Physician Interpretation * * * * EXAMINATION: CT ABDOMEN (KIDNEY) WITHOUT AND WITH IV CONTRAST CLINICAL HISTORY: Follow-up evaluation of previously identified 8 mm enhancing left renal mass. TECHNIQUE: Spiral imaging in three phases through the kidneys and including the entire abdomen was performed utilizing IV contrast only. No oral contrast was given. Arterial phase MIP, and nephrographic phase oblique coronal and sagittal reformations were created from thin-slice images under physician supervision on the imaging modality workstation. M: [id number] Contrast: IV contrast: 120 ml of Omnipaque 350 Oral Contrast: None CT Radiation dose: Integrated dose-length product (DLP) for this visit = 940 mGy*cm. CT Dose Reduction Employed: Yes COMPARISON: CTA abdomen/pelvis 10/29/2017 and right upper quadrant ultrasound 09/21/2015. Postcontrast CT evaluation of the abdomen and pelvis of 02/02/2015 RESULT: Kidneys, adrenals and ureters: Right kidney: No calculi. Stable 3 cm slightly above water attenuation (20 HU) nonenhancing mass in the interpolar region (8:47) with a thin rim of wall calcification. Additional subcentimeter low-attenuation lesions are too small to characterize. Right renal vasculature Arterial anatomy: single. No early branch (< 1cm). Venous anatomy: single. Right ureter: Single ureter. No hydronephrosis. Right adrenal: Normal, no nodules or thickening Left kidney: No calculus. * Anterolateral, exophytic enhancing mass in the interpolar region (0.9 cm; 8:53) unchanged in size since prior exam. It is also unchanged since 01/2015 This was the mass of concern on the prior scan. The mass is cortical. * More inferiorly placed anterolateral enhancing mass (1.5 cm; 8:61) unchanged in size since prior exam. Interestingly this mass is slightly smaller when compared to 01/2015 when it measured approximately 1.8 cm. This mass extends into the parenchyma but not to the level of the central sinus complex. * Stable 1.5 cm high attenuation, nonenhancing mass in the interpolar region (2:60) and 2.3 cm high attenuation, nonenhancing parapelvic cyst (8:51). * Additional cysts and indeterminate low-attenuation lesions also unchanged. Left renal vasculature Arterial anatomy: single. No early branch (< 1cm). Venous anatomy: retroaortic. Left ureter: Single ureter. No hydronephrosis. Left adrenal: Normal, no nodules or thickening Retroperitoneal lymphadenopathy and IVC involvement: No retroperitoneal lymphadenopathy. No IVC tumor thrombus. Abdomen and pelvis: Liver: Multiple liver cysts in both hepatic lobes are unchanged from the previous exam, for example a 4.2 cm bilobed cyst in segment II (2:23; previously 4.3 cm). Normal liver morphology. No new, enlarging or enhancing liver lesions. Biliary: No bile duct dilation. Stable 4 mm high attenuation focus in the gallbladder neck is either a polyp or gallstone. Spleen: Irregular splenic contour and cystic component in the mid aspect of the spleen are unchanged and related to splenic artery embolization. Pancreas: No mass or duct dilation. GI tract: No dilation or wall thickening. Lymph nodes (other): Multiple, small to intermediate size retroperitoneal and mesenteric lymph nodes. These lymph nodes are more prominent when compared to 01/2015. There still not technically enlarged. Mesentery/Peritoneum: No ascites or mass. Retroperitoneum: No mass. Vasculature: The celiac axis and SMA are patent. The portal vein and branches, splenic vein, SMV, and hepatic veins are patent. 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 Bones/Soft Tissues: No lytic or sclerotic osseous lesions. Degenerative changes in the lumbar spine. Lower thorax: Unremarkable. IMPRESSION: TWO SMALL ENHANCING LEFT RENAL NEOPLASMS ARE STABLE SINCE 01/2015. THERE IS A SINGLE LEFT RENAL ARTERY AND A RETROAORTIC LEFT RENAL VEIN. ONE RIGHT AND TWO LEFT BOSNIAK TYPE II RENAL CYSTS. MULTIPLE SMALL TO INTERMEDIATE SIZE RETROPERITONEAL AND MESENTERIC LYMPH NODES COULD INDICATE AN INDOLENT LYMPHOMA. Project Management Professor: MILLIE Transcribe Date/Time: Dec 05 2017 11:40A Dictated by : DOMINGA MOJICA MD This examination was interpreted and the report reviewed and electronically signed by: ESTRELLA HUSSEIN MD on Dec 05 2017 1:11PM EST [id number] PROGRESS Observed: 12/05/2017 Status: COMPLETED Source: [place] 11:25 AM [facility] REPOSITORY HNO ID: [id number] Author: NOBLE Gauthier (Ct) Service: Radiology Author Type: Clinical Shipping Weigher Type: Progress Notes Filed: 12/05/2017 11:33 AM Note Text: Radiology Service Progress Note PATIENT NAME: Jaime Ann DATE OF SERVICE: December 05, 2017 TIME: 11:25 AM PATIENT IDENTITY VERIFICATION COMPLETED USING TWO (2) METHODS: Patient confirmed name verbally and ID band matches.. PATIENT GENDER DATA: Male PATIENT RELEVANT IMPLANT DATA REVIEWED: Yes RADIOLOGY DEPARTMENT: CT; Exam(s) Completed: Kidney PERIPHERAL IV DATA: Site assessment: Clean,Dry and Intact, Site disposition Discontinued SIGNED BY: NOBLE Gauthier December 05, 2017 11:25 AM PROGRESS Observed: 12/05/2017 Status: COMPLETED Source: [place] 11:04 AM [facility] REPOSITORY HNO ID: [id number] Author: Anamaria BanksRn) JOSE DE JESUS Pennington Service: Nursing Author Type: Registered Nurse Type: Progress Notes Filed: 12/05/2017 11:14 AM Note Text: Radiology Service Progress Note PATIENT NAME: Jaime Ann DATE OF SERVICE: December 05, 2017 TIME: 11:04 AM PATIENT WEIGHT: 198 LBS PATIENT IDENTITY VERIFICATION COMPLETED USING TWO (2) METHODS: Patient confirmed name verbally and ID band matches.. PATIENT GENDER DATA: Male CONTRAST INDUCED NEPHROPATHY RISK FACTORS: Patient age > 60 years CREATININE: Creatinine Date Value Ref Range Status 07/04/2017 1.15 0.73 - 1.22 mg/dL Final 05/29/2017 1.16 0.73 - 1.22 mg/dL Final 02/06/2017 1.33 (H) 0.73 - 1.22 mg/dL Final Creatinine (POCT) Date Value Ref Range Status 10/29/2017 1.20 0.7 - 1.4 mg/dL Final eGFR-All Other Races Date Value Ref Range Status 07/04/2017 >60 . Final Comment: eGFR (Estimated GFR) Units of measure: mL/min/1.73 meters squared eGFR is derived from the reexpressed MDRD Study equation using the following parameters: serum creatinine, age, gender and race. The creatinine assay has been calibrated to be traceable to IDMS. An eGFR <60 mL/min/1.73m2 for >3 months is consistent with chronic kidney disease. Refer to KDOQI guidelines for clinical interpretation. In patients with unstable renal function, e.g. those with acute kidney injury, the eGFR may not accurately reflect actual GFR. eGFR-All Other Races (POCT) Date Value Ref Range Status 10/29/2017 58 mL/min/1.73 m2 Final eGFR- Date Value Ref Range Status 07/04/2017 >60 Final eGFR- (POCT) Date Value Ref Range Status 10/29/2017 >60 mL/min/1.73 m2 Final P.O.C.T. RESULTS: POC done: Yes, See Lab Tab December 05, 2017 TREATMENT: No Hydration needed. ALLERGIES: Reviewed and unchanged CONTRAST ALLERGY: NO. IV SITE: Ambulatory: A peripheral IV was started in the Left antecubital site with a Angio cath: 20 gauge diffusic and A Saline lock was inserted per protocol IV SITE APPEARANCE: Clean,Dry and Intact SIGNED BY: Anamaria Pennington RN December 05, 2017 11:04 AM PROGRESS Observed: 12/04/2017 Status: COMPLETED Source: [place] 10:57 AM [facility] REPOSITORY HNO ID: [id number] Author: Theresa Batista Service: (none) Author Type: Physician Type: Progress Notes Filed: 12/11/2017 3:05 PM Note Text: [facility] KIDNEY FOLLOW-UP Dx: Renal Cortical Tumor- Benign - Localized -, Left HPI: The patient is 77 year old years old and returns for surveillance of Left small renal neoplasms x 2 (9 mm and 15 mm) and bilateral complex renal cysts. The patient reports no specific complaints since last follow- up. No abdominal, back, or pelvic pain. No cough, dyspnea, chest pain. No headache, visual problems or gait problems. No weight loss, anorexia, fatigue, fever, chills. Hematuria: none Obstructive voiding symptoms: none. Irritative voiding symptoms: none Flank Pain: no Urinary tract infection: no Renal calculi: no Renal disease: no DATA REVIEW LABS Creatinine Date Value Ref Range Status 07/04/2017 1.15 0.73 - 1.22 mg/dL Final 05/29/2017 1.16 0.73 - 1.22 mg/dL Final 02/06/2017 1.33 (H) 0.73 - 1.22 mg/dL Final 11/20/2016 1.16 0.73 - 1.22 mg/dL Final Creatinine (POCT) Date Value Ref Range Status 12/05/2017 1.20 0.7 - 1.4 mg/dL Final 10/29/2017 1.20 0.7 - 1.4 mg/dL Final IMAGING: Ct kidney W/WO (12/05/2017): TWO SMALL ENHANCING LEFT RENAL NEOPLASMS ARE STABLE SINCE 01/2015. ?THERE IS A SINGLE LEFT RENAL ARTERY AND A RETROAORTIC LEFT RENAL VEIN. ONE RIGHT AND TWO LEFT BOSNIAK TYPE II RENAL CYSTS. MULTIPLE SMALL TO INTERMEDIATE SIZE RETROPERITONEAL AND MESENTERIC LYMPH NODES COULD INDICATE AN INDOLENT LYMPHOMA. I personally reviewed the images from above-mentioned radiology studies and agree with the interpretation as documented. Wt: 89.8 kg (198 lb) BMI: 28.41 kg/(m2) URINARY AND SEXUAL FUNCTION INCONTINENCE: Total QoL Score: 09/25 Continence 1- No pads SEXUAL FUNCTION: Total QoL Score: 2/ PDE-5 Use: Never Erectile Function: 5- No erections IPSS: 4 QOL: 1 PVR: N/A PAST MEDICAL HISTORY/COMORBIDITIES PAST MEDICAL HISTORY Diagnosis Date - Chronic lymphocytic leukemia (HCC) - HTN (hypertension) - Liver cyst - Non-ischemic cardiomyopathy (HCC) - Peripheral neuropathy - Prostate cancer (HCC) s/p external radiation. 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 REVIEW OF SYSTEMS: GENERAL: No weight loss, malaise or fevers NECK: Negative for lumps, goiter, pain and significant neck swelling RESPIRATORY: Negative for cough, hemoptysis, wheezing, COPD, dyspnea or shortness of breath CARDIOVASCULAR: Negative for chest pain, leg swelling, hypertension, CHF or palpitations GI: No nausea, vomiting, or diarrhea : No history of dysuria, frequency or incontinence MUSCULOSKELETAL: Negative for joint pain or swelling, back pain or muscle pain SKIN: Negative for lesions, rash, and itching PSYCH: Negative for sleep disturbance, mood disorder and recent psychosocial stressors. HEMATOLOGY/LYMPHOLOGY Negative for prolonged bleeding, bruising easily or swollen nodes ENDOCRINE: Negative for cold or heat intolerance, polyuria, polydipsia and goiter NEURO: No history of headaches, syncope, paralysis, seizures or tremors PHYSICAL EXAM: constitutional: appears healthy in no acute distress cardiovascular: normal femoral pulses to palpate respiratory: normal respiratory motion gi: abdomen soft, non-tender without masses, small umbilical hernia gu: deferred skin: no rashes or bruises noted. Neck: Supple, no adenopathy; thyroid symmetric, normal size, no bruits Extremities: Extremities normal. No deformities, edema, or skin discoloration. Good capillary refill. Lymphatic: No palpable lymph nodes. Neuro: Gait normal. Sensation grossly intact. See impression and plan outlined in detail below. Disease Specificity: Acuity: Chronic Anatomic Site: Kidney, Laterality: Left Underlying Condition/Causal Agent: Primary Associated Conditions/Manifestations: 1. Malignant neoplasm of left kidney, except renal pelvis (HCC) - ICD9: 189.0, ICD10: C64.2 (primary diagnosis) 2. Essential hypertension - ICD9: 401.9, ICD10: I10 3. Non-ischemic cardiomyopathy (HCC) - ICD9: 425.4, ICD10: I42.8 IMPRESSION AND PLAN: 77 yo male with two small enhancing L renal neoplasms and bosniakII cysts, stable since last follow up Patient doing well with no LUTS, no complaints PE small umbilical hernia. Imaging discussed with patient, he is advised he can follow up yearly so long as imaging is stable. He is in agreement with this. PLAN FU [address] kidney and sCreatinine. Theresa Batista MD [facility] Electronically Signed PROGRESS Observed: 11/23/2017 Status: COMPLETED Source: [place] 2:20 PM [facility] REPOSITORY HNO ID: [id number] Author: Lonny Barnett Service: (none) Author Type: Physician Type: Progress Notes Filed: 11/23/2017 4:00 PM Note Text: Heart [facility] Vascular [place] [facility] SECTION OF HEART FAILURE and CARDIAC TRANSPLANT MEDICINE OUTPATIENT VISIT DATE November 23, 2017 OUTPATIENT VISIT TYPE Established Patient PRIMARY CARE PHYSICIAN: Betsey Lares Jr, MD [address] [id number] CHIEF COMPLAINT: HF f/u NURSING INTAKE (Patient?s concerns and/or recent hospitalizations/ER visits): Mr. Ann was seen on 05/29/2017 HF Nursing Assessment: Interim Hospitalizations and/or ER visits:no Dyspnea: no Cough: no Orthopnea Or PND: no Chest pain: no Palpations: no Lightheadedness Or Dizziness: no Syncope: no Fatigue: no Unintentional weight loss or gain: stable Edema: No Appetite:Good HISTORY OF PRESENT ILLNESS: Since last visit patient saw neurologist and has broken his ankle. 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 It may have a hereditary component given that his brothers have similar symptoms. There is also concern for a possible restless leg syndrome given symptoms of urgency to move his legs at night. ? PLAN/RECOMMENDATIONS: 1. Labs: A1C, B12, MMA, Folate, Monoclonal studies, GENESIS, Crandon, Lambda, Ferritin and Celiac screening. 2. Medications: Stop Requip (denies efficacy)?and Nortriptyline (was already being weaned off). Start on Gabapentin 300 mg QHS (dual indication- polyneuropathy AND RLS).?Will increase to 300 mg TID over the next 3 weeks. Consult to physical therapy: Neuromuscular gait retraining and balance management. PAST MEDICAL HISTORY Diagnosis Date - Chronic lymphocytic leukemia (HCC) - HTN (hypertension) - Liver cyst - Non-ischemic cardiomyopathy (HCC) - Peripheral neuropathy - Prostate cancer (HCC) s/p external radiation. 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 carvedilol (COREG) 25 mg tablet Take 1 tablet by mouth twice daily. atorvastatin (LIPITOR) 20 mg tablet TAKE 1 TABLET BY MOUTH ONCE DAILY. sacubitril-valsartan (ENTRESTO) 24-26 mg tablet Take 1 tablet by mouth twice daily. CHOLECALCIFEROL, VITAMIN D3, (VITAMIN D3 ORAL) Take 1,000 Units by mouth once daily. oxybutynin ER (DITROPAN XL) 10 mg 24 hr tablet Take 10 mg by mouth once daily. Coenzyme Q10 (CO Q-10) 400 mg cap Take 1 capsule by mouth once daily. nfxaihennda-F8-jyesstocg serr (OSTEO BI-FLEX, 5-LOXIN,) 1,500-400-100 mg-unit-mg tab Take 1 tablet by mouth once daily. REVIEW OF SYSTEMS: See HPI. PHYSICAL EXAMINATION:BP 163/73 Pulse 60 Ht 177.8 cm (5' 10) Wt 89.8 kg (198 lb) SpO2 97% BMI 28.41 kg/m? Average BP (BpTru): 171/86 BpTRU BP #2 (BpTru): 164/87 Pulse #2 (BpTru): 64 beats/min BP #3 (BpTru): 166/86 Pulse #3 (BpTru): 64 beats/min BP #4 (BpTru): 172/86 Pulse #4 (BpTru): 64 beats/min BP #5 (BpTru): 172/84 Pulse #5 (BpTru): 63 beats/min BP #6 (BpTru): 179/84 Pulse #6 (BpTru): 65 beats/min Average BP (BpTru): 171/86 Average Pulse (BpTru): 64 beats/min 148/64 Pulse 60 Ht 177.8 cm (5' 10) Wt 91.2 kg (201 lb) SpO2 98% BMI 28.84 kg/m2 which is 1?lb more than last visit. General: no distress, obese, accompanied by family Skin: No clubbing, no cyanosis. Eyes: Anicteric sclerae Neck: Neck veins are not distended, no carotid bruits Lungs: Chest clear to auscultation Heart: Rhythm: regular rate and rhythm, Rate: normal, no murmur Abdomen: Distended, small hematoma right mid lateral quadrant. ?No HSM, normal bowel sounds Extremities:+1 edema right ankle, no edema left leg Component Latest Ref Rng AND Units 02/06/2017 05/29/2017 07/04/2017 10/29/2017 Protein, Total 6.3 - 8.0 g/dL 6.1 (L) Albumin 3.9 - 4.9 g/dL 3.9 Calcium 8.5 - 10.2 mg/dL 9.0 9.4 Bilirubin, Total 0.2 - 1.3 mg/dL 0.4 Alkaline Phosphatase 36 - 108 U/L 94 AST 14 - 40 U/L 21 Glucose 74 - 99 mg/dL 106 (H) 87 BUN 9 - 24 mg/dL 21 30 (H) Creatinine 0.73 - 1.22 mg/dL 1.16 1.15 Sodium 136 - 144 mmol/L 142 143 Potassium 3.7 - 5.1 mmol/L 4.4 4.1 Chloride 97 - 105 mmol/L 104 105 CO2 22 - 30 mmol/L 27 26 Anion Gap 9 - 18 mmol/L 11 12 ALT 10 - 54 U/L 18 eGFR- >60 >60 eGFR-All Other Races . >60 >60 WBC 3.70 - 11.00 k/uL 12.61 (H) 13.80 (H) RBC 4.20 - 6.00 m/uL 4.40 4.57 Hemoglobin 13.0 - 17.0 g/dL 13.0 13.5 Hematocrit 39.0 - 51.0 % 40.1 41.0 MCV 80.0 - 100.0 fL 91.1 89.7 MCH 26.0 - 34.0 pG 29.5 29.5 MCHC 30.5 - 36.0 g/dL 32.4 32.9 RDW-CV 11.5 - 15.0 % 15.8 (H) 14.6 Platelet Count 150 - 400 k/uL 301 298 MPV 9.0 - 12.7 fL 10.5 9.6 Absolute nRBC <0.01 k/uL 0.00 <0.01 Crandon Free, Serum 3.30 - 19.40 mg/L 12.2 Lambda Free, Serum 5.7 - 26.3 mg/L 14.5 K/L Ratio, Serum 0.26 - 1.65 0.84 IgA 78 - 391 mg/dL 45 (L) Transglutaminase Ab, IgA <20 Units 1 Interpretation (Celiac Screen) No serologic evidence of celiac disease. No serologic evidence of celiac disease. Creatinine (POCT) 0.7 - 1.4 mg/dL 1.20 eGFR- (POCT) mL/min/1.73 m2 >60 eGFR-All Other Races (POCT) mL/min/1.73 m2 58 Hemoglobin A1C 4.3 - 5.6 % 6.4 (H) Estimated Average Glucose mg/dL 137 Result ([facility]) No M protein is identified. No M protein is identified. Staff Review ([facility]) Reviewed by Misbah Turner M.D., PhD ([id number]) MPA Result No M protein is identified. No M protein is identified. Staff Review ([facility]) Reviewed by Misbah Turner M.D., PhD ([id number]) NT Pro BNP <450 pg/mL 579 (H) Vitamin B12 232 - 1,245 pg/mL 1,527 (H) Folate >4.7 ng/mL >20.0 MMA 79 - 376 nmol/L 344 Ferritin 30.3 - 565.7 ng/mL 125.9 ?? CARDIOVASCULAR MEDICINE TESTING: Echocardiogram 07/04/16 LVEF = 34 ? 5% (2D biplane) (Visually EF appears <35%). Echo today: The left ventricle is dilated. LVEF = 45 ? 5% (visual est.) - The right ventricle is normal in size. Right ventricular systolic function is normal. The left atrial cavity is mildly dilated. - Mild to moderate (1-2+) MR. Mild to moderate (1-2+) AI. Exam was compared with the prior echocardiographic exam performed on 07/04/2016 Ejection fraction and MR have improved. ICD check 11/12/17: UNDERLYING RHYTHM: SR? BATTERY STATUS: Normal and shows no significant depletion. COUNTERS SINCE 05/29/17? ATRIAL ARRHYTHMIAS: 0 AF. NO blood thinners? VENTRICULAR ARRHYTHMIAS: There have been no ventricular detections since the last evaluation.? LEAD MEASUREMENTS: Capture and sensing are appropriate. The pacing outputs maintain safety margin. Review of the lead impedance trends are normal. LV programmed to 1msecs d/t stimulation in the past. ? IMPLANT SITE/ SYMPTOMS: The incision and pocket are pain-free (0/10), well healed and without signs of erosion or infection. No arm swelling, syncope, pre-syncope or device related pocket stimulation.? OTHER DIAGNOSTICS: BIV pacing 99%.? PROGRAMMING CHANGES MADE TODAY: No changes made today? FOLLOW UP: Q 3 month remotes. ? IMPRESSION Mr. Ann is a 77 year old male with a history of hypertension, LBBB, VT with syncope and non ischemic cardiomyopathy s/p BiV ICD in September 2015 when he was evaluated for heart failure. His admission in September of 2015 was associated with a drop in EF from 54% to 20% within a year in the setting of a syncopal event that was felt to be VT/VF. The etiology of this decline in EF is uncertain and may be due to tachycardia mediated due to VT, LBBB induced or viral/idiopathic. His coronary angiogram did not show obstructive coronary disease. Unfortunately, since September he?developed a subdural hematoma, likely during the syncopal event, which required surgical drainage in early November 2015. He was doing better and at last visit I increased his?Entresto. ?Then I reduced it again in January because he appeared dehydrated and fell after tripping over some stuff around the house. ?Today returns after another fall and has hypertension. LVEF improved. Prefer to still not increase Entresto since this medication will significantly reduce his blood pressure. Will instead use a more gentle medication to lower it a little?NYHA class II, Stage C. ?? ?I spent 30?minutes in this visit, with more than 50% of the time devoted to patient counseling. ?? PLAN AND RECOMMENDATIONS: 1. Add norvasc 5 mg daily. Otherwise continue current medications 2. Follow-up with me in 3 months ? Lonny Barnett MD November 23, 2017 3:13 PM ? ?? CC MD Yoshi Bender Jr, MD ? ? CNOV Observed: 11/23/2017 Status: COMPLETED Source: [place] 2:15 PM [facility] [place] REPOSITORY Office Visit (TREV CHF ALEXI) SETHJAIME ([id number]) 1940 M Date Time Provider Department 11/23/17 2:15 PM LONNY BARNETT CHF ALEXI During your visit today, we recorded the following information about you: Pulse Blood pressure Weight Height 60/minute 163/73 89.8 kg 1.778 m Lonny Barnett MD 11/23/2017 4:00 PM Signed Heart [facility] Vascular [place] [facility] SECTION OF HEART FAILURE and CARDIAC TRANSPLANT MEDICINE OUTPATIENT VISIT DATE November 23, 2017 OUTPATIENT VISIT TYPE Established Patient PRIMARY CARE PHYSICIAN: Betsey Lares Jr, MD [address] [place] [address] CHIEF COMPLAINT: HF f/u NURSING INTAKE (Patient?s concerns and/or recent hospitalizations/ER visits): Mr. Ann was seen on 05/29/2017 HF Nursing Assessment: Interim Hospitalizations and/or ER visits:no Dyspnea: no Cough: no Orthopnea Or PND: no Chest pain: no Palpations: no Lightheadedness Or Dizziness: no Syncope: no Fatigue: no Unintentional weight loss or gain: stable Edema: No Appetite:Good HISTORY OF PRESENT ILLNESS: Since last visit patient saw neurologist and has broken his ankle. 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 It may have a hereditary component given that his brothers have similar symptoms. There is also concern for a possible restless leg syndrome given symptoms of urgency to move his legs at night. ? PLAN/RECOMMENDATIONS: 1. Labs: A1C, B12, MMA, Folate, Monoclonal studies, GENESIS, Crandon, Lambda, Ferritin and Celiac screening. 2. Medications: Stop Requip (denies efficacy)?and Nortriptyline (was already being weaned off). Start on Gabapentin 300 mg QHS (dual indication- polyneuropathy AND RLS).?Will increase to 300 mg TID over the next 3 weeks. Consult to physical therapy: Neuromuscular gait retraining and balance management. PAST MEDICAL HISTORY Diagnosis Date - Chronic lymphocytic leukemia (HCC) - HTN (hypertension) - Liver cyst - Non-ischemic cardiomyopathy (HCC) - Peripheral neuropathy - Prostate cancer (HCC) s/p external radiation. 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 carvedilol (COREG) 25 mg tablet Take 1 tablet by mouth twice daily. atorvastatin (LIPITOR) 20 mg tablet TAKE 1 TABLET BY MOUTH ONCE DAILY. sacubitril-valsartan (ENTRESTO) 24-26 mg tablet Take 1 tablet by mouth twice daily. CHOLECALCIFEROL, VITAMIN D3, (VITAMIN D3 ORAL) Take 1,000 Units by mouth once daily. oxybutynin ER (DITROPAN XL) 10 mg 24 hr tablet Take 10 mg by mouth once daily. Coenzyme Q10 (CO Q-10) 400 mg cap Take 1 capsule by mouth once daily. mjlypiiwwgn-[id number]-[id number] serr (OSTEO BI-FLEX, 5-LOXIN,) 1,500-400-100 mg-unit-mg tab Take 1 tablet by mouth once daily. REVIEW OF SYSTEMS: See HPI. PHYSICAL EXAMINATION:BP 163/73 Pulse 60 Ht 177.8 cm (5' 10) Wt 89.8 kg (198 lb) SpO2 97% BMI 28.41 kg/m? Average BP (BpTru): 171/86 BpTRU BP #2 (BpTru): 164/87 Pulse #2 (BpTru): 64 beats/min BP #3 (BpTru): 166/86 Pulse #3 (BpTru): 64 beats/min BP #4 (BpTru): 172/86 Pulse #4 (BpTru): 64 beats/min BP #5 (BpTru): 172/84 Pulse #5 (BpTru): 63 beats/min BP #6 (BpTru): 179/84 Pulse #6 (BpTru): 65 beats/min Average BP (BpTru): 171/86 Average Pulse (BpTru): 64 beats/min 148/64 Pulse 60 Ht 177.8 cm (5' 10) Wt 91.2 kg (201 lb) SpO2 98% BMI 28.84 kg/m2 which is 1?lb more than last visit. General: no distress, obese, accompanied by family Skin: No clubbing, no cyanosis. Eyes: Anicteric sclerae Neck: Neck veins are not distended, no carotid bruits Lungs: Chest clear to auscultation Heart: Rhythm: regular rate and rhythm, Rate: normal, no murmur Abdomen: Distended, small hematoma right mid lateral quadrant. ?No HSM, normal bowel sounds Extremities:+1 edema right ankle, no edema left leg Component Latest Ref Rng AND Units 02/06/2017 05/29/2017 07/04/2017 10/29/2017 Protein, Total 6.3 - 8.0 g/dL 6.1 (L) Albumin 3.9 - 4.9 g/dL 3.9 Calcium 8.5 - 10.2 mg/dL 9.0 9.4 Bilirubin, Total 0.2 - 1.3 mg/dL 0.4 Alkaline Phosphatase 36 - 108 U/L 94 AST 14 - 40 U/L 21 Glucose 74 - 99 mg/dL 106 (H) 87 BUN 9 - 24 mg/dL 21 30 (H) Creatinine 0.73 - 1.22 mg/dL 1.16 1.15 Sodium 136 - 144 mmol/L 142 143 Potassium 3.7 - 5.1 mmol/L 4.4 4.1 Chloride 97 - 105 mmol/L 104 105 CO2 22 - 30 mmol/L 27 26 Anion Gap 9 - 18 mmol/L 11 12 ALT 10 - 54 U/L 18 eGFR- >60 >60 eGFR-All Other Races . >60 >60 WBC 3.70 - 11.00 k/uL 12.61 (H) 13.80 (H) RBC 4.20 - 6.00 m/uL 4.40 4.57 Hemoglobin 13.0 - 17.0 g/dL 13.0 13.5 Hematocrit 39.0 - 51.0 % 40.1 41.0 MCV 80.0 - 100.0 fL 91.1 89.7 MCH 26.0 - 34.0 pG 29.5 29.5 MCHC 30.5 - 36.0 g/dL 32.4 32.9 RDW-CV 11.5 - 15.0 % 15.8 (H) 14.6 Platelet Count 150 - 400 k/uL 301 298 MPV 9.0 - 12.7 fL 10.5 9.6 Absolute nRBC <0.01 k/uL 0.00 <0.01 [place] Free, Serum 3.30 - 19.40 mg/L 12.2 Lambda Free, Serum 5.7 - 26.3 mg/L 14.5 K/L Ratio, Serum 0.26 - 1.65 0.84 IgA 78 - 391 mg/dL 45 (L) Transglutaminase Ab, IgA <20 Units 1 Interpretation (Celiac Screen) No serologic evidence of celiac disease. No serologic evidence of celiac disease. Creatinine (POCT) 0.7 - 1.4 mg/dL 1.20 eGFR- (POCT) mL/min/1.73 m2 >60 eGFR-All Other Races (POCT) mL/min/1.73 m2 58 Hemoglobin A1C 4.3 - 5.6 % 6.4 (H) Estimated Average Glucose mg/dL 137 Result ([facility]) No M protein is identified. No M protein is identified. Staff Review ([facility]) Reviewed by Misbah Turner M.D., PhD ([id number]) MPA Result No M protein is identified. No M protein is identified. Staff Review ([facility]) Reviewed by Misbah Turner M.D., PhD ([id number]) NT Pro BNP <450 pg/mL 579 (H) Vitamin B12 232 - 1,245 pg/mL 1,527 (H) Folate >4.7 ng/mL >20.0 MMA 79 - 376 nmol/L 344 Ferritin 30.3 - 565.7 ng/mL 125.9 ?? CARDIOVASCULAR MEDICINE TESTING: Echocardiogram 07/04/16 LVEF = 34 ? 5% (2D biplane) (Visually EF appears <35%). Echo today: The left ventricle is dilated. LVEF = 45 ? 5% (visual est.) - The right ventricle is normal in size. Right ventricular systolic function is normal. The left atrial cavity is mildly dilated. - Mild to moderate (1-2+) MR. Mild to moderate (1-2+) AI. Exam was compared with the prior echocardiographic exam performed on 07/04/2016 Ejection fraction and MR have improved. ICD check 11/12/17: UNDERLYING RHYTHM: SR? BATTERY STATUS: Normal and shows no significant depletion. COUNTERS SINCE 05/29/17? ATRIAL ARRHYTHMIAS: 0 AF. NO blood thinners? VENTRICULAR ARRHYTHMIAS: There have been no ventricular detections since the last evaluation.? LEAD MEASUREMENTS: Capture and sensing are appropriate. The pacing outputs maintain safety margin. Review of the lead impedance trends are normal. LV programmed to 1msecs d/t stimulation in the past. ? IMPLANT SITE/ SYMPTOMS: The incision and pocket are pain-free (0/10), well healed and without signs of erosion or infection. No arm swelling, syncope, pre-syncope or device related pocket stimulation.? OTHER DIAGNOSTICS: BIV pacing 99%.? PROGRAMMING CHANGES MADE TODAY: No changes made today? FOLLOW UP: Q 3 month remotes. ? IMPRESSION Mr. Ann is a 77 year old male with a history of hypertension, LBBB, VT with syncope and non ischemic cardiomyopathy s/p BiV ICD in September 2015 when he was evaluated for heart failure. His admission in September of 2015 was associated with a drop in EF from 54% to 20% within a year in the setting of a syncopal event that was felt to be VT/VF. The etiology of this decline in EF is uncertain and may be due to tachycardia mediated due to VT, LBBB induced or viral/idiopathic. His coronary angiogram did not show obstructive coronary disease. Unfortunately, since September he?developed a subdural hematoma, likely during the syncopal event, which required surgical drainage in early November 2015. He was doing better and at last visit I increased his?Entresto. ?Then I reduced it again in January because he appeared dehydrated and fell after tripping over some stuff around the house. ?Today returns after another fall and has hypertension. LVEF improved. Prefer to still not increase Entresto since this medication will significantly reduce his blood pressure. Will instead use a more gentle medication to lower it a little?NYHA class II, Stage C. ?? ?I spent 30?minutes in this visit, with more than 50% of the time devoted to patient counseling. ?? PLAN AND RECOMMENDATIONS: 1. Add norvasc 5 mg daily. Otherwise continue current medications 2. Follow-up with me in 3 months ? Lonny Barnett MD November 23, 2017 3:13 PM ? ?? CC MD Yoshi Bender Jr, MD ? ? Referring Provider: LONNY BARNETT [[id number]] Allergies As of Date: 11/23/2017 Noted Allergy Reaction LISINOPRIL 07/04/2016 3 - Cough Date Reviewed: 11/23/2017 Reviewed by: Michelle Zamarripa - Fully Assessed Reason for Visit: Follow Up [171] Primary Visit Diagnosis:Chronic systolic CHF (congestive heart failure) (HCC) [I50.22] Other Visit Diagnoses:LBBB (left bundle branch block) [I44.7] Cardiomyopathy, nonischemic (HCC) [I42.8] VT (ventricular tachycardia) ([facility]) [I47.2] Biventricular ICD (implantable cardioverter-defibrillator) in place [Z95.810] Subdural hematoma (HCC) [S06.5X9A] Order(s):amLODIPine (NORVASC) 5 mg tabletTake 1 tablet by mouth once daily.Disp: 30 tabletRfl: 11 Prescriptions as of 11/23/2017 Sig: NORTRIPTYLINE 75 MG CAPSULE Take 1 capsule by mouth twice* CARVEDILOL 25 MG TABLET Take 1 tablet by mouth twice * ATORVASTATIN 20 MG TABLET TAKE 1 TABLET BY MOUTH ONCE D* SACUBITRIL 24 MG-VALSARTAN 26* Take 1 tablet by mouth twice * VITAMIN D3 ORAL Take 1,000 Units by mouth onc* OXYBUTYNIN CHLORIDE ER 10 MG * Take 10 mg by mouth once percy* COENZYME Q10 400 MG CAPSULE Take 1 capsule by mouth once * GLUCOSAMINE [id number] * Take 1 tablet by mouth once d* AMLODIPINE 5 MG TABLET Take 1 tablet by mouth once d* Problem List As Of Date 11/23/2017 Noted Resolved Left bundle branch block [I44.7] INVALID FOR* Priority: C Hypertension [I10] INVALID FOR*10/06/2016 More... Near syncope [R55] INVALID FOR* Hx of ventricular tachycardia [Z86.79] INVALID FOR* Splenic artery aneurysm (HCC) [I72.8] INVALID FOR* Cellulitis due to MRSA [L03.90, B95.62] INVALID FOR* Syncope [R55] INVALID FOR* Priority: A More... SUMMARY INVALID FOR* Priority: Mild More... 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] INVALID FOR* Peripheral polyneuropathy (HCC) [G62.9] INVALID FOR* Abnormality of gait [R26.9] INVALID FOR* Disturbance of skin sensation [R20.9] INVALID FOR* Pain in both lower extremities [M79.604, M79.60*INVALID FOR* Abnormal finding of blood chemistry [R79.9] INVALID FOR* Abnormal glucose [R73.09] INVALID FOR* Prescriptions ordered this encounter Disp Refills Start End AMLODIPINE 5 MG TABLET 30 t* 11 11/23/2017 Route: ORAL Sig: Take 1 tablet by mouth once daily. Medications Discontinued During This Encounter aspirin 81 mg chewable tablet 12/07/2016 11/23/2017 Class: Med Update Route: ORAL Sig: Take 1 tablet by mouth every 48 hours. Disc: Discontinued by Patient DAILY MULTI-VITAMIN ORAL 11/23/2017 Class: Historical Med Route: ORAL Sig: Take 1 tablet by mouth once daily. Disc: Discontinued by Patient Disposition: Return in about 3 months (around 02/23/2018). Follow-up and Disposition History Recorded Encounter Status:Closed by LONNY BARNETT MD on 11/23/17 MAEVE Observed: 11/12/2017 Status: COMPLETED Source: [place] 3:30 PM [facility] REPOSITORY Office Visit (CARDMM) JAIME ANN ([id number]) 1940 M Date Time Provider Department 11/12/17 3:30 PM RICHARD KATZ During your visit today, we recorded the following information about you: Pulse Blood pressure Weight 70/minute 136/82 87.5 kg Richard Katz MD, MD 11/12/2017 3:58 PM Signed EP STAFF NOTE: Please note: This note has been produced using speech recognition software and may contain errors related to that system including grammar, punctuation, spelling, gender and words and phrases that may be inappropriate Consultation requested by Dr. Horne for an opinion regarding management of [employer] device and my final recommendations will be communicated back to the requesting physician by way of shared medical record OR letter via fax/US mail. I have reviewed the above information and examined the patient and confirm the above with the following additions/modifications. PE: Vitals: BP 136/82 Pulse 70 Wt 87.5 kg (193 lb) SpO2 96% BMI 27.69 kg/m? General: Appears well nourished. In no acute distress. Skin: No clubbing. No cyanosis. Eyes: EOMI Oropharynx: No oral lesions. Neck: Supple, no JVD, no carotid bruits, carotids w/ normal upstroke. Lungs: Clear to auscultation bilaterally. Heart: RRR, No M/G/R Abdomen: Soft, nontender, BS normal, no organomegaly, no bruits. Extremities: RLE in brace. Palpable distal pulses bilaterally. Neuro: Oriented x3, alert, cooperative, gait coordinated. DEVICE CHECK: LAst remote : PRESENTING EGM: /BiV paced ? BATTERY STATUS: Normal and shows no significant depletion, CONNIE 5 yrs. ? COUNTERS SINCE 05/29/15: ? ATRIAL ARRHYTHMIAS: There have been 0 triggered episodes of atrial high rates ? VENTRICULAR ARRHYTHMIAS: There have been no ventricular detections. ? LEAD MEASUREMENTS: Sensing is appropriate. Review of the lead impedance trends are normal. ? OTHER DIAGNOSTICS: BiV pacing 99.7%. Today: UNDERLYING RHYTHM: SR ? BATTERY STATUS: Normal and shows no significant depletion. COUNTERS SINCE 05/29/17 ? ATRIAL ARRHYTHMIAS: 0 AF. NO blood thinners ? VENTRICULAR ARRHYTHMIAS: There have been no ventricular detections since the last evaluation. ? LEAD MEASUREMENTS: Capture and sensing are appropriate. The pacing outputs maintain safety margin. Review of the lead impedance trends are normal. LV programmed to 1msecs d/t stimulation in the past. ? IMPLANT SITE/ SYMPTOMS: The incision and pocket are pain-free (0/10), well healed and without signs of erosion or infection. No arm swelling, syncope, pre-syncope or device related pocket stimulation. ? OTHER DIAGNOSTICS: BIV pacing 99%. ? PROGRAMMING CHANGES MADE TODAY: No changes made today ? FOLLOW UP: Q 3 month remotes. PROBLEM LIST: unexplained syncope in the setting of severe LV systolic dysfunction, with suspicion for ventricular tachyarrhythmia. During that hospitalization, his LVEF was found to be severely reduced at 19%. Coronary angiography during that stay demonstrated no evidence of flow-limiting coronary artery disease. hypertension LBBB VT with syncope chronic systolic heart failure d/t non ischemic cardiomyopathy s/p BiV ICD in September 2015. Last TTE : - The left ventricle is mildly dilated. There is left ventricular hypertrophy. Left ventricular systolic function is moderately decreased. EF = 34 ? 5% (2D biplane) (Visually EF appears <35%). - The right ventricle is normal in size. Right ventricular systolic function is normal. - The left atrial cavity is severely dilated. - The right atrial cavity is dilated. - There is moderate (2+ - 3+) mitral valve regurgitation. Regurgitant orifice area ?(PISA) is 0.21 cm?. - Exam was compared with the prior echocardiographic exam performed on 03/23/2016. MR appears to have increased. 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 He is followed by Dr. Rodríguez - last seen 2017. He present to establish longitudinal care for his device. LV lead is in a good mid lateral position. Paces with a RBBB, rightward axis. Device check show normal function. Rate histogram appropriate. BiV pacing 99.7% Battery 4 yr 11 mo No S/S of volume overload on PE. RLE in brace - tibular fracture after slip and fall. PLAN: Continue remotes q 3 months Annual device checks This note was created with electronic dictation and errors in syntax and meaning may have occurred. Richard Katz MD Pager: [phone] Office: [phone] I personally examined the patient and repeated the ny components of the exam and cardiac history, past medical and surgical history, social and family history. The assessment and plan were formulated and discussed with the patient and family. I spent over 25 minutes (face time) and greater than 50% of this time was spent counseling and/or coordinating the care of the patient with regard the diagnosis and medical regimen Referring Physician: Betsey Lares Jr, MD [address] [place] [address] Referring Provider: BETSEY LARES JR [[id number]] Allergies As of Date: 11/12/2017 Noted Allergy Reaction LISINOPRIL 07/04/2016 3 - Cough Date Reviewed: 11/12/2017 Reviewed by: Esther Toledo Ma - Fully Assessed Reason for Visit: Cardiology Follow Up [1732] Primary Visit Diagnosis:LBBB (left bundle branch block) [I44.7] Order(s):PACER OR ICD CHECK [[id number]] Order #: [id number]: 1 FUTURE Prescriptions as of 11/12/2017 Sig: CARVEDILOL 25 MG TABLET Take 1 tablet by mouth twice * ATORVASTATIN 20 MG TABLET TAKE 1 TABLET BY MOUTH ONCE D* SACUBITRIL 24 MG-VALSARTAN 26* Take 1 tablet by mouth twice * VITAMIN D3 ORAL Take 1,000 Units by mouth onc* OXYBUTYNIN CHLORIDE ER 10 MG * Take 10 mg by mouth once percy* COENZYME Q10 400 MG CAPSULE Take 1 capsule by mouth once * DAILY MULTI-VITAMIN ORAL Take 1 tablet by mouth once d* GLUCOSAMINE [id number] * Take 1 tablet by mouth once d* ASPIRIN 81 MG CHEWABLE TABLET Take 1 tablet by mouth every * Problem List As Of Date 11/12/2017 Noted Resolved Left bundle branch block [I44.7] INVALID FOR* Priority: C Hypertension [I10] INVALID FOR*10/06/2016 More... Near syncope [R55] INVALID FOR* Hx of ventricular tachycardia [Z86.79] INVALID FOR* Splenic artery aneurysm (HCC) [I72.8] INVALID FOR* Cellulitis due to MRSA [L03.90, B95.62] INVALID FOR* Syncope [R55] INVALID FOR* Priority: A More... SUMMARY INVALID FOR* Priority: Mild More... 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] INVALID FOR* Peripheral polyneuropathy (HCC) [G62.9] INVALID FOR* Abnormality of gait [R26.9] INVALID FOR* Disturbance of skin sensation [R20.9] INVALID FOR* Pain in both lower extremities [M79.604, M79.60*INVALID FOR* Abnormal finding of blood chemistry [R79.9] INVALID FOR* Abnormal glucose [R73.09] INVALID FOR* Disposition: Return in 12 months (on 11/12/2018). Follow-up and Disposition History Recorded Encounter Status:Closed by RICHARD KATZ MD on 11/12/17 PROGRESS Observed: 11/11/2017 Status: COMPLETED Source: [place] 2:37 PM [facility] [place] REPOSITORY [facility] ID: [id number] Author: Richard Katz MD Service: (none) Author Type: Physician Type: Progress Notes Filed: 11/12/2017 3:58 PM Note Text: EP STAFF NOTE: Please note: This note has been produced using speech recognition software and may contain errors related to that system including grammar, punctuation, spelling, gender and words and phrases that may be inappropriate Consultation requested by Dr. Horne for an opinion regarding management of [employer] device and my final recommendations will be communicated back to the requesting physician by way of shared medical record OR letter via fax/US mail. I have reviewed the above information and examined the patient and confirm the above with the following additions/modifications. PE: Vitals: BP 136/82 Pulse 70 Wt 87.5 kg (193 lb) SpO2 96% BMI 27.69 kg/m? General: Appears well nourished. In no acute distress. Skin: No clubbing. No cyanosis. Eyes: EOMI Oropharynx: No oral lesions. Neck: Supple, no JVD, no carotid bruits, carotids w/ normal upstroke. Lungs: Clear to auscultation bilaterally. Heart: RRR, No M/G/R Abdomen: Soft, nontender, BS normal, no organomegaly, no bruits. Extremities: RLE in brace. Palpable distal pulses bilaterally. Neuro: Oriented x3, alert, cooperative, gait coordinated. DEVICE CHECK: LAst remote : PRESENTING EGM: /BiV paced ? BATTERY STATUS: Normal and shows no significant depletion, CONNIE 5 yrs. ? COUNTERS SINCE 05/29/15: ? ATRIAL ARRHYTHMIAS: There have been 0 triggered episodes of atrial high rates ? VENTRICULAR ARRHYTHMIAS: There have been no ventricular detections. ? LEAD MEASUREMENTS: Sensing is appropriate. Review of the lead impedance trends are normal. ? OTHER DIAGNOSTICS: BiV pacing 99.7%. Today: UNDERLYING RHYTHM: SR ? BATTERY STATUS: Normal and shows no significant depletion. COUNTERS SINCE 05/29/17 ? ATRIAL ARRHYTHMIAS: 0 AF. NO blood thinners ? VENTRICULAR ARRHYTHMIAS: There have been no ventricular detections since the last evaluation. ? LEAD MEASUREMENTS: Capture and sensing are appropriate. The pacing outputs maintain safety margin. Review of the lead impedance trends are normal. LV programmed to 1msecs d/t stimulation in the past. ? IMPLANT SITE/ SYMPTOMS: The incision and pocket are pain-free (0/10), well healed and without signs of erosion or infection. No arm swelling, syncope, pre-syncope or device related pocket stimulation. ? OTHER DIAGNOSTICS: BIV pacing 99%. ? PROGRAMMING CHANGES MADE TODAY: No changes made today ? FOLLOW UP: Q 3 month remotes. PROBLEM LIST: unexplained syncope in the setting of severe LV systolic dysfunction, with suspicion for ventricular tachyarrhythmia. During that hospitalization, his LVEF was found to be severely reduced at 19%. Coronary angiography during that stay demonstrated no evidence of flow-limiting coronary artery disease. hypertension LBBB VT with syncope chronic systolic heart failure d/t non ischemic cardiomyopathy s/p BiV ICD in September 2015. Last TTE -2016: - The left ventricle is mildly dilated. There is left ventricular hypertrophy. Left ventricular systolic function is moderately decreased. EF = 34 ? 5% (2D biplane) (Visually EF appears <35%). - The right ventricle is normal in size. Right ventricular systolic function is normal. - The left atrial cavity is severely dilated. - The right atrial cavity is dilated. - There is moderate (2+ - 3+) mitral valve regurgitation. Regurgitant orifice area ?(PISA) is 0.21 cm?. - Exam was compared with the prior echocardiographic exam performed on 03/23/2016. MR appears to have increased. 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 He is followed by Dr. Rodríguez - last seen 2016. He present to establish longitudinal care for his device. LV lead is in a good mid lateral position. Paces with a RBBB, rightward axis. Device check show normal function. Rate histogram appropriate. BiV pacing 99.7% Battery 4 yr 11 mo No S/S of volume overload on PE. RLE in brace - tibular fracture after slip and fall. PLAN: Continue remotes q 3 months Annual device checks This note was created with electronic dictation and errors in syntax and meaning may have occurred. Richard Katz MD Pager: [phone] Office: [phone] I personally examined the patient and repeated the [place] components of the exam and cardiac history, past medical and surgical history, social and family history. The assessment and plan were formulated and discussed with the patient and family. I spent over 25 minutes (face time) and greater than 50% of this time was spent counseling and/or coordinating the care of the patient with regard the diagnosis and medical regimen Referring Physician: Betsey Lares Jr, [place] [address] [address] PSA,TOTAL- DIAGNOSTIC Collected: 11/02/2017 Status: F Source: [place] 9:49 AM [facility] [place] REPOSITORY TYPE CODE TESTS RESULT OUT OF RANGE REFERENCE UNITS LAB L501.9940 0.0-4.0 ng/mL PSA, Normal DIAGNOSTIC 0.01 Result Comment: This test was performed using the TPSA assay method for the [employer] chemistry system. Values obtained with different assay methods cannot be used interchangably. When changing PSA assays in the course of monitoring a patient, additional sequential testing should be carried out to confirm baseline values. Performed By: #### [id number] #### [facility] [address] 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 His repair looks intact. I do not see any enlargement of the spleen. I do not see any filling of the splenic artery. I do not see any enlargement of the splenic artery aneurysm. On his last CT report, there were some areas around his kidney with his history of lymphoma that we let him know to make sure that his cancer doctor followed up on. He since I last saw him broke his right ankle in July and is now in a boot after having surgery for it. The official CT report is not back yet. Once we have it, we will make sure we send a copy of that along with my note from today to Dr. Lares. Impression/Plan: Otherwise, I am really pleased with the splenic artery aneurysm repair and from that standpoint, I am going to recommend we recheck it again in two years. Moreno Avina M.D. 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 Because of his history of lymphoma, this should be worked up. Moreno Avina M.D. [facility]/089 Audio #: [id number] cc: Betsey Lares Jr, MD [address] [place] [address] Ag Horne MD [address] [place] [address] Lonny Barnett MD [address] [place] [address] Date Dictated: 10/29/2017 16:14:02 Date Typed: 10/30/2017 11:53:38 Date Revised: Moreno Avina MD 10/29/2017 4:33 PM Addendum DATE: 08/10/2016 AGE: 76 SURGEON 1: Moreno Avina M.D. OPERATION: Third order selective splenic artery catheterization and additional second order selective. Embolization with Tornado and Axel coils and [id number]. He is referred by Dr. Itz Hector for evaluation of splenic artery aneurysm. This was originally found when he was being evaluated for workup of kidney issues. It was found on a CAT scan. Back on 03/27/2015, Dr. Hector did a splenic embolization with a bunch of Xael coils. Originally, he had an ultrasound suggesting it was thrombosed. He had an ultrasound suggesting showing recannalization It measures 23 x 27 mm. We took him to surgery and reembolized it. October 29, 2017 This office note has been dictated. TECHNIQUE: ?High-resolution contrast-enhanced helical CT of the abdomen and pelvis was performed, timed to the arterial phase. ?3- D processing was performed by the physician on an independent work station, with MIP and volume-rendering techniques. ?Total of 90 ml of Omnipaque 350 was injected IV during the examination. ?The study was performed without oral contrast. ?The patient tolerated the injection without complications. Dose-Length Product (DLP): 485 mGy*cm. CT Dose Reduction Employed: Automated exposure control(AEC) and iterative recon RESULT: COMPARISON: ?The study was compared with a prior examination from 09/18/2016. ABDOMEN: Images of the aorta demonstrate mild calcifications without significant atherosclerotic disease, aneurysm, dissection, or stenosis. Celiac artery demonstrates mild aneurysmal dilation just before the bifurcation of the splenic and common hepatic arteries. ?This is unchanged in diameter from the prior examination. ?The coils near the splenic hilum are again noted and there is no flow seen distal to the coils in the vasculature. ?There is relative atrophy of the spleen with a very small post embolization cystic component since September.. Superior mesenteric artery demonstrates no significant focal stenosis. Inferior mesenteric artery demonstrates no significant focal stenosis. There is a single right renal artery. ?Right renal artery demonstrates no significant focal stenosis. ?There is a single renal vein which is patent. There is a single left renal artery. ?Left renal artery demonstrates no significant focal stenosis. ?There is a single renal vein which is patent. The common iliac arteries, the external iliac arteries, the internal iliac arteries, the common femoral arteries, the visualized superficial femoral arteries and profundus femoris arteries are normal. NONVASCULAR FINDINGS: Images through the lung bases demonstrate no acute pulmonary parenchymal abnormality or pleural effusion. Gallbladder, pancreas, spleen, bilateral adrenal glands, right kidney, and left kidney are unremarkable. ?Multiple cysts are again noted on the kidneys. Multiple low-density lesions are noted in the liver again. ?While these do have the appearance of cysts several of them are larger than on the prior examination notably the left lobe lesions now 2.4 cm with the segment 4 lesion being 3.2 cm and the anterior segment 6 lesion is 2.75 cm. ?These are all larger by several millimeters in the prior examination in September. ?While the interval growth is small is suggestion of interval growth suggests that these may represent something other than simple cysts and a dedicated three-phase CT of the abdomen and pelvis may be warranted. ?This was discussed with Dr. Avina. There are no enlarged lymph nodes. There is no significant free fluid. Visualized bony structures are unremarkable. Impression IMPRESSION: No significant change in the vascular configuration. 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 ?The low-density lesions in the liver getting larger so a 3-phase CT of the liver is suggested. Moreno Avina MD Railroad Worker: Transcribed Clinic Note (edin) ID: [id number] Author: MORENO AVINA * * * This document has not been signed * * * * * * DRAFT COPY. THIS DOCUMENT IS NOT AVAILABLE FOR PATIENT CARE * * * Document text: NAME: [facility] ANN [facility] NO: [id number] DATE OF SERVICE: 10/29/2017 DATE OF : 1940 Addendum: I did receive a call today from the radiologist reading his CAT scan, which noted there are low density lesions in the liver getting larger and recommended evaluation for that with a three-phase CT of the liver. Because of his history of lymphoma, this should be worked up. Moreno Avina M.D. [facility]/089 Audio #: [id number] cc: Betsey Lares Jr, MD [address] [place] [address] Ag Horne MD [address] [place] [address] Lonny Barnett MD [address] [place] [address] Date Dictated: 10/29/2017 16:14:02 Date Typed: 10/30/2017 11:53:38 Date Revised: Display document [id number] only Transcribed Clinic Note (edin) ID: [id number] Author: MORENO AVINA * * * This document has not been signed * * * * * * DRAFT COPY. 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 His repair looks intact. I do not see any enlargement of the spleen. I do not see any filling of the splenic artery. I do not see any enlargement of the splenic artery aneurysm. On his last CT report, there were some areas around his kidney with his history of lymphoma that we let him know to make sure that his cancer doctor followed up on. He since I last saw him broke his right ankle in July and is now in a boot after having surgery for it. The official CT report is not back yet. Once we have it, we will make sure we send a copy of that along with my note from today to Dr. Lares. Impression/Plan: Otherwise, I am really pleased with the splenic artery aneurysm repair and from that standpoint, I am going to recommend we recheck it again in two years. Moreno Avina M.D. [facility]/089 Audio #: [id number] cc: Klaus Hector MD [address] [id number] Date Dictated: 10/29/2017 12:04:30 Date Typed: 10/30/2017 10:38:46 Date Revised: Display document [id number] only Referring Provider: BETSEY LARES JR [[id number]] Allergies As of Date: 10/29/2017 Noted Allergy Reaction LISINOPRIL 07/04/2016 3 - Cough Date Reviewed: 10/29/2017 Reviewed by: Briana (Rn) JOSE DE JESUS Guerrero - Fully Assessed Reason for Visit: Established Patient [175] Primary Visit Diagnosis:Splenic artery aneurysm (HCC) [I72.8] Prescriptions as of 10/29/2017 Sig: CARVEDILOL 25 MG TABLET Take 1 tablet by mouth twice * ATORVASTATIN 20 MG TABLET TAKE 1 TABLET BY MOUTH ONCE D* SACUBITRIL 24 MG-VALSARTAN 26* Take 1 tablet by mouth twice * ASPIRIN 81 MG CHEWABLE TABLET Take 1 tablet by mouth every * VITAMIN D3 ORAL Take 1,000 Units by mouth onc* OXYBUTYNIN CHLORIDE ER 10 MG * Take 10 mg by mouth once percy* COENZYME Q10 400 MG CAPSULE Take 1 capsule by mouth once * DAILY MULTI-VITAMIN ORAL Take 1 tablet by mouth once d* GLUCOSAMINE [id number]-[id number] * Take 1 tablet by mouth once d* Problem List As Of Date 10/29/2017 Noted Resolved Left bundle branch block [I44.7] INVALID FOR* Priority: C Hypertension [I10] INVALID FOR*10/06/2016 More... Near syncope [R55] INVALID FOR* Hx of ventricular tachycardia [Z86.79] INVALID FOR* Splenic artery aneurysm (HCC) [I72.8] INVALID FOR* Cellulitis due to MRSA [L03.90, B95.62] INVALID FOR* Syncope [R55] INVALID FOR* Priority: A More... SUMMARY INVALID FOR* Priority: Mild More... 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] INVALID FOR* Peripheral polyneuropathy (HCC) [G62.9] INVALID FOR* Abnormality of gait [R26.9] INVALID FOR* Disturbance of skin sensation [R20.9] INVALID FOR* Pain in both lower extremities [M79.604, M79.60*INVALID FOR* Abnormal finding of blood chemistry [R79.9] INVALID FOR* Abnormal glucose [R73.09] INVALID FOR* Medications Discontinued During This Encounter iv contrast (will be provided with r* 1 Ea* 0 10/09/2017 10/29/2017 Class: In Office Sig: CT kidney wow Inject, intravenously, once for 1 dose.No IV access, insert saline lock prior to the beginning of sedation, infusion, injection of imaging exam. Discontinue saline lock post exam. If Pt. has a central line or IVAD, may access for administration according to line specific nursing protocol. Once exam is complete flush line and de-access according to line specific nursing protocol in the CT contrast administration guidelines link. Disc: Course of therapy completed gabapentin (NEURONTIN) 300 mg capsule 90 c* 5 07/04/2017 10/29/2017 Route: ORAL Sig: Take 1 capsule by mouth three times daily for 180 days. Start with 300 mg (1 cap) at bedtime. Disc: Course of therapy completed Letter Text Moreno Avina MD Parking Enforcement Manager Department of Vascular Surgery Office: [phone] Appointments: [phone] Fax: [phone] October 31, 2017 Betsey Lares Jr, MD [facility] [place] [address] NAME: Jaime Ann [facility] NO.: [id number] : 1940 DATE OF SERVICE: 10/29/[address] Lares: Your patient, Mr. Ann, was seen by me in the office. The details of his history and treatment plan are included in my office note, a copy of which is included for your interest and records. I appreciate the opportunity to participate in Mr. Ann's evaluation and treatment. If I can provide further information, please do not hesitate to contact me. Sincerely yours, Moreno Avina MD (Signed electronically to expedite mailing) [facility]/ Cc: Jaime Ann Klaus Hector MD Enclosure Encounter Status:Closed by MORENO AVINA MD on 10/29/17 PROGRESS Observed: 10/29/2017 Status: COMPLETED Source: [place] 11:12 AM [facility] REPOSITORY HNO ID: [id number] Author: Rhea Soliman Ct Service: (none) Author Type: (none) Type: Progress Notes Filed: 10/29/2017 11:12 AM Note Text: Radiology Service Progress Note PATIENT NAME: Jaime Ann DATE OF SERVICE: October 29, 2017 TIME: 11:12 AM PATIENT IDENTITY VERIFICATION COMPLETED USING TWO (2) METHODS: Patient confirmed name verbally and ID band matches.. PATIENT GENDER DATA: Male PATIENT RELEVANT IMPLANT DATA REVIEWED: Yes RADIOLOGY DEPARTMENT: CT; Exam(s) Completed: Abdomen/Pelvis PERIPHERAL IV DATA: Site assessment: Clean,Dry and Intact, Site disposition Discontinued SIGNED BY: Rhea Soliman Ct October 29, 2017 11:12 AM CTA ABD/PELV W IVCON Observed: 10/29/2017 Status: F Source: [place] 11:12 AM [facility] REPOSITORY * * *Final Report* * * DATE OF EXAM: Oct 29 2017 11:12AM [facility] [place] [facility] - CTA ABD/PELV W IVCON / PROCEDURE REASON: multiple diagnoses * * * * Physician Interpretation * * * * CT ANGIOGRAM OF THE ABDOMEN AND PELVIS HISTORY: 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 3- D processing was performed by the physician on an independent work station, with MIP and volume-rendering techniques. Total of 90 ml of Omnipaque 350 was injected IV during the examination. The study was performed without oral contrast. The patient tolerated the injection without complications. Dose-Length Product (DLP): 485 mGy*cm. CT Dose Reduction Employed: Automated exposure control(AEC) and iterative recon RESULT: COMPARISON: The study was compared with a prior examination from 09/18/2016. ABDOMEN: Images of the aorta demonstrate mild calcifications without significant atherosclerotic disease, aneurysm, dissection, or stenosis. Celiac artery demonstrates mild aneurysmal dilation just before the bifurcation of the splenic and common hepatic arteries. This is unchanged in diameter from the prior examination. The coils near the splenic hilum are again noted and there is no flow seen distal to the coils in the vasculature. There is relative atrophy of the spleen with a very small post embolization cystic component since September.. Superior mesenteric artery demonstrates no significant focal stenosis. Inferior mesenteric artery demonstrates no significant focal stenosis. There is a single right renal artery. Right renal artery demonstrates no significant focal stenosis. There is a single renal vein which is patent. There is a single left renal artery. Left renal artery demonstrates no significant focal stenosis. There is a single renal vein which is patent. The common iliac arteries, the external iliac arteries, the internal iliac arteries, the common femoral arteries, the visualized superficial femoral arteries and profundus femoris arteries are normal. NONVASCULAR FINDINGS: Images through the lung bases demonstrate no acute pulmonary parenchymal abnormality or pleural effusion. Gallbladder, pancreas, spleen, bilateral adrenal glands, right kidney, and left kidney are unremarkable. Multiple cysts are again noted on the kidneys. Multiple low-density lesions are noted in the liver again. While these do have the appearance of cysts several of them are larger than on the prior examination notably the left lobe lesions now 2.4 cm with the segment 4 lesion being 3.2 cm and the anterior segment 6 lesion is 2.75 cm. These are all larger by several millimeters in the prior examination in September. While the interval growth is small is suggestion of interval growth suggests that these may represent something other than simple cysts and a dedicated three-phase CT of the abdomen and pelvis may be warranted. This was discussed with Dr. Avina. There are no enlarged lymph nodes. There is no significant free fluid. Visualized bony structures are unremarkable. IMPRESSION: No significant change in the vascular configuration. 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 The low-density lesions in the liver getting larger so a 3-phase CT of the liver is suggested. Project Management Professor: MILLIE Transcribe Date/Time: Oct 29 2017 3:36P Dictated by : TED FLOREZ MD This examination was interpreted and the report reviewed and electronically signed by: TED FLOREZ MD on Oct 29 2017 3:57PM EST [id number] PROGRESS Observed: 10/29/2017 Status: COMPLETED Source: [place] 10:47 AM [facility] REPOSITORY HNO ID: [id number] Author: Briana BanksRn) JOSE DE JESUS Guerrero Service: Radiology Author Type: Registered Nurse Type: Progress Notes Filed: 10/29/2017 11:03 AM Note Text: Radiology Service Progress Note PATIENT NAME: Jaime Ann DATE OF SERVICE: October 29, 2017 TIME: 10:47 AM PATIENT WEIGHT: 193 LBS PATIENT IDENTITY VERIFICATION COMPLETED USING TWO (2) METHODS: Patient confirmed name verbally and ID band matches.. PATIENT GENDER DATA: Male CONTRAST INDUCED NEPHROPATHY RISK FACTORS: Patient age > 60 years CREATININE: Creatinine Date Value Ref Range Status 07/04/2017 1.15 0.73 - 1.22 mg/dL Final 05/29/2017 1.16 0.73 - 1.22 mg/dL Final 02/06/2017 1.33 (H) 0.73 - 1.22 mg/dL Final eGFR-All Other Races Date Value Ref Range Status 07/04/2017 >60 . Final Comment: eGFR (Estimated GFR) Units of measure: mL/min/1.73 meters squared eGFR is derived from the reexpressed MDRD Study equation using the following parameters: serum creatinine, age, gender and race. The creatinine assay has been calibrated to be traceable to IDMS. An eGFR <60 mL/min/1.73m2 for >3 months is consistent with chronic kidney disease. Refer to KDOQI guidelines for clinical interpretation. In patients with unstable renal function, e.g. those with acute kidney injury, the eGFR may not accurately reflect actual GFR. eGFR- Date Value Ref Range Status 07/04/2017 >60 Final P.O.C.T. RESULTS: POC done: Yes, See Lab Tab October 29, 2017 TREATMENT: No Hydration needed. ALLERGIES: Reviewed and unchanged CONTRAST ALLERGY: NO. IV SITE: Ambulatory: A peripheral IV was started in the Right antecubital site with a Angio cath: 20 gauge. and A Saline lock was inserted per protocol IV SITE APPEARANCE: Clean,Dry and Intact SIGNED BY: Briana Guerrero RN October 29, 2017 10:47 AM PROGRESS Observed: 10/29/2017 Status: COMPLETED Source: [place] 6:50 AM [facility] REPOSITORY [facility] ID: [id number] Author: Moreno Avina Service: (none) Author Type: Physician Type: Progress Notes Filed: 10/29/2017 4:33 PM Note Text: DATE: 08/10/2016 AGE: 76 SURGEON 1: Moreno Avina M.D. OPERATION: Third order selective splenic artery catheterization and additional second order selective. Embolization with Tornado and Axel coils and [id number]-zbmpjdeebdbru. He is referred by Dr. Itz Hector for evaluation of splenic artery aneurysm. This was originally found when he was being evaluated for workup of kidney issues. It was found on a CAT scan. Back on 03/27/2015, Dr. Hector did a splenic embolization with a bunch of Axel coils. Originally, he had an ultrasound suggesting it was thrombosed. He had an ultrasound suggesting showing recannalization It measures 23 x 27 mm. We took him to surgery and reembolized it. October 29, 2017 This office note has been dictated. TECHNIQUE: ?High-resolution contrast-enhanced helical CT of the abdomen and pelvis was performed, timed to the arterial phase. ?3- D processing was performed by the physician on an independent work station, with MIP and volume-rendering techniques. ?Total of 90 ml of Omnipaque 350 was injected IV during the examination. ?The study was performed without oral contrast. ?The patient tolerated the injection without complications. Dose-Length Product (DLP): 485 mGy*cm. CT Dose Reduction Employed: Automated exposure control(AEC) and iterative recon RESULT: COMPARISON: ?The study was compared with a prior examination from 09/18/2016. ABDOMEN: Images of the aorta demonstrate mild calcifications without significant atherosclerotic disease, aneurysm, dissection, or stenosis. Celiac artery demonstrates mild aneurysmal dilation just before the bifurcation of the splenic and common hepatic arteries. ?This is unchanged in diameter from the prior examination. ?The coils near the splenic hilum are again noted and there is no flow seen distal to the coils in the vasculature. ?There is relative atrophy of the spleen with a very small post embolization cystic component since September.. Superior mesenteric artery demonstrates no significant focal stenosis. Inferior mesenteric artery demonstrates no significant focal stenosis. There is a single right renal artery. ?Right renal artery demonstrates no significant focal stenosis. ?There is a single renal vein which is patent. There is a single left renal artery. ?Left renal artery demonstrates no significant focal stenosis. ?There is a single renal vein which is patent. The common iliac arteries, the external iliac arteries, the internal iliac arteries, the common femoral arteries, the visualized superficial femoral arteries and profundus femoris arteries are normal. NONVASCULAR FINDINGS: Images through the lung bases demonstrate no acute pulmonary parenchymal abnormality or pleural effusion. Gallbladder, pancreas, spleen, bilateral adrenal glands, right kidney, and left kidney are unremarkable. ?Multiple cysts are again noted on the kidneys. Multiple low-density lesions are noted in the liver again. ?While these do have the appearance of cysts several of them are larger than on the prior examination notably the left lobe lesions now 2.4 cm with the segment 4 lesion being 3.2 cm and the anterior segment 6 lesion is 2.75 cm. ?These are all larger by several millimeters in the prior examination in September. ?While the interval growth is small is suggestion of interval growth suggests that these may represent something other than simple cysts and a dedicated three-phase CT of the abdomen and pelvis may be warranted. ?This was discussed with Dr. Avina. There are no enlarged lymph nodes. There is no significant free fluid. Visualized bony structures are unremarkable. Impression IMPRESSION: No significant change in the vascular configuration. 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 ?The low-density lesions in the liver getting larger so a 3-phase CT of the liver is suggested. Moreno Avina MD PROGRESS Observed: 10/29/2017 Status: COMPLETED Source: [place] 12:00 AM [facility] REPOSITORY O ID: [id number] Author: Moreno vAina Service: Vascular Surgery Author Type: Physician Type: Progress Notes Filed: 11/08/2017 8:51 AM Note Text: NAME: JAIME ANN [facility] NO: [id number] DATE OF SERVICE: 10/29/2017 DATE OF : 1940 Addendum: I did receive a call today from the radiologist reading his CAT scan, which noted there are low density lesions in the liver getting larger and recommended evaluation for that with a three-phase CT of the liver. Because of his history of lymphoma, this should be worked up. Moreno Avina M.D. [facility]/089 Audio #: [id number] cc: Betsey Lares Jr, MD [address] [id number] Ag Horne MD [address] [id number] Lonny Barnett MD [address] [place], [place] [id number] Date Dictated: 10/29/2017 16:14:02 Date Typed: 10/30/2017 11:53:38 Date Revised: PROGRESS Observed: 10/29/2017 Status: COMPLETED Source: [place] 12:00 AM [facility] REPOSITORY HNO ID: [id number] Author: Moreno Avina Service: Vascular Surgery Author Type: Physician Type: Progress Notes Filed: 11/08/2017 8:51 AM Note Text: NAME: JAIME ANN [facility] NO: [id number] DATE OF SERVICE: 10/29/2017 DATE OF : 1940 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 His repair looks intact. I do not see any enlargement of the spleen. I do not see any filling of the splenic artery. I do not see any enlargement of the splenic artery aneurysm. On his last CT report, there were some areas around his kidney with his history of lymphoma that we let him know to make sure that his cancer doctor followed up on. He since I last saw him broke his right ankle in July and is now in a boot after having surgery for it. The official CT report is not back yet. Once we have it, we will make sure we send a copy of that along with my note from today to Dr. Lares. Impression/Plan: Otherwise, I am really pleased with the splenic artery aneurysm repair and from that standpoint, I am going to recommend we recheck it again in two years. Moreno Avina M.D. SPL/089 Audio #: [id number] cc: Klaus Hector MD [facility] [place] [address] Date Dictated: 10/29/2017 12:04:30 Date Typed: 10/30/2017 10:38:46 Date Revised: PROGRESS Observed: 09/20/2017 Status: COMPLETED Source: [place] 9:49 AM [facility] REPOSITORY HNO ID: [id number] Author: Sapna Lares (Rn), RN Service: (none) Author Type: Registered Nurse Type: Progress Notes Filed: 09/20/2017 9:50 AM Note Text: IRB # [id number]: [employer] SLS Registry (System Longevity Study) PI: Epi Dickson MD Chart review done today through last study visit / chart review on 08/29/2017. Sapna Lares RN Pager: [phone] CNNURSE Observed: 09/20/2017 Status: COMPLETED Source: [place] 7:00 AM [facility] REPOSITORY Nurse Visit (CARDMN) JAIME ANN ([id number]) 1940 M Date Time Provider Department 09/20/17 7:00 AM RESEARCH NURSE CARD EPS DALLINDMN During your visit today, we recorded the following information about you: Sapna Lares (Rn), RN 09/20/2017 9:50 AM Signed IRB # [id number]: [employer] SLS Registry (System Longevity Study) PI: Epi Dickson MD Chart review done today through last study visit / chart review on 08/29/2017. Sapna Lares, RN Pager: [phone] Referring Provider: EPI DICKSON [[id number]] Allergies As of Date: 09/20/2017 Noted Allergy Reaction LISINOPRIL 07/04/2016 3 - Cough Date Reviewed: 07/19/2017 Reviewed by: Linnea Mehta (Waitress) - Fully Assessed Reason for Visit: Research F/U [568] Primary Visit Diagnosis:Research study patient [Z00.6] Prescriptions as of 09/20/2017 Sig: GABAPENTIN 300 MG CAPSULE Take 1 capsule by mouth three* CARVEDILOL 25 MG TABLET Take 1 tablet by mouth twice * ATORVASTATIN 20 MG TABLET TAKE 1 TABLET BY MOUTH ONCE D* SACUBITRIL 24 MG-VALSARTAN 26* Take 1 tablet by mouth twice * ASPIRIN 81 MG CHEWABLE TABLET Take 1 tablet by mouth every * VITAMIN D3 ORAL Take 1,000 Units by mouth onc* OXYBUTYNIN CHLORIDE ER 10 MG * Take 10 mg by mouth once percy* COENZYME Q10 400 MG CAPSULE Take 1 capsule by mouth once * DAILY MULTI-VITAMIN ORAL Take 1 tablet by mouth once d* GLUCOSAMINE CON-W0-NEGBRSUNM * Take 1 tablet by mouth once d* Problem List As Of Date 09/20/2017 Noted Resolved Left bundle branch block [I44.7] INVALID FOR* Priority: C Hypertension [I10] INVALID FOR*10/06/2016 More... Near syncope [R55] INVALID FOR* Hx of ventricular tachycardia [Z86.79] INVALID FOR* Splenic artery aneurysm (HCC) [I72.8] INVALID FOR* Cellulitis due to MRSA [L03.90, B95.62] INVALID FOR* Syncope [R55] INVALID FOR* Priority: A More... SUMMARY INVALID FOR* Priority: Mild More... 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] INVALID FOR* Peripheral polyneuropathy (HCC) [G62.9] INVALID FOR* Abnormality of gait [R26.9] INVALID FOR* Disturbance of skin sensation [R20.9] INVALID FOR* Pain in both lower extremities [M79.604, M79.60*INVALID FOR* Abnormal finding of blood chemistry [R79.9] INVALID FOR* Abnormal glucose [R73.09] INVALID FOR* Encounter Status:Closed by SAPNA LARES on 09/20/17 12 LEAD ELECTROCARDIOGRAM Observed: 09/18/2017 Status: F Source: [place] 9:02 AM [facility] REPOSITORY [facility] Cardiovascular Services [address] [place] [id number] 12 Lead EKG 09/18/17 0821 MR#: [id number] Acct: [id number] Name: JAIME ANN Rep #: [id number] : 1940 77 From: Juan Banegas MD Attending Dr: Raymon Pineda MD Status: REG CLI Ordering Dr: Raymon Pineda MD Date: 09/18/17 Location: LAB Sex: M C Admitted: Test Reason : PREOP Blood Pressure : / mmHG Vent. Rate : 064 BPM Atrial Rate : 064 BPM P-R Int : 144 ms QRS Dur : 176 ms QT Int : 492 ms P-R-T Axes : 041 122 033 degrees QTc Int : 507 ms Electronic ventricular pacemaker When compared with ECG of 17-NOV-2015 08:43, Vent. rate has decreased BY 12 BPM Confirmed by JUAN BANEGAS MD ([id number]), food editor ENEDINA PALOMINO ([id number]) on 09/18/2017 9:01:45 AM Referred By: Raymon Pineda Confirmed By:JUAN BANEGAS MD 09/18/17 0901 Date Juan Banegas MD CC: Betsey Lares Jr., MD; Raymon Pineda MD Signed CBC-COMPLETE BLOOD CNT Collected: 09/18/2017 Status: F Source: [place] NO DIFF 7:44 AM [facility] REPOSITORY TYPE CODE TESTS RESULT OUT OF RANGE REFERENCE UNITS LAB L100.1000 4.4-11.0 K/mm3 High WBC 16.6 LAB L100.1200 4.6-6.2 M/mm3 Low RBC 4.33 LAB L100.1300 13.0-16.5 g/dl Low HGB 12.4 LAB L100.1400 40-54 % Low HCT 38.8 LAB L100.1500 80-94 fL Normal MCV 89.6 LAB L100.1600 27.0-32.0 pg Normal MCH 28.6 LAB L100.1700 32-36 g/gl Normal MCHC 32.0 LAB L100.1810 11.6-14.6 % High RDW CV 15.3 LAB L100.1820 35.1-43.9 fl High RDW SD 49.5 LAB L100.1900 150-450 K/mm3 Normal PLT 339 LAB L100.2000 6.2-12.0 fl Normal MPV 9.5 Performed By: #### L100.0500 #### [facility] [address] [place], [address] BASIC METABOLIC Collected: 09/18/2017 Status: F Source: [place] PROFILE (BMP) 7:44 AM [facility] REPOSITORY TYPE CODE TESTS RESULT OUT OF RANGE REFERENCE UNITS LAB L501.0100 74-106 mg/dL High GLU 121 Result Comment: Fasting Glucose result from 100 to 125 mg/dL suggests IMPAIRED HOMEOSTASIS per A.D.A. criteria. Please note revised GLUCOSE reference range effective 2017. LAB L501.1000 7-18 mg/dL High BUN 27 LAB L501.1100 0.70-1.30 mg/dL Normal CREAT,SERUM 1.16 Result Comment: The validity of the calculated GFR AND GFRAA in patients over 70 years has not been determined. Clinical correlation is essential. LAB L501.1110 >60 mL/min Normal EST GFR 65 Result Comment: Non- GFR Calc LAB L501.1115 >60 mL/min Normal EST GFR - AA 78 Result Comment: GFR Calc LAB L501.1300 10-20 RATIO High BUN/CRE 23.3 LAB L501.2200 8.5-10.1 mg/dL CA Normal 8.6 LAB L501.5300 136-145 mmol/L High NA 146 LAB L501.5600 3.5-5.1 mmol/L K Normal 3.8 LAB L501.5900 98-107 mmol/L High CL 108 LAB L501.6100 21.0-32.0 mmol/L Normal CO2 30.0 LAB L501.6200 5-15 Normal GAP 8 Performed By: #### L500.2500 #### [facility] [address] [place], [address] XR ANKLE MINIMUM 3 Observed: 09/03/2017 Status: F Source: [facility] VIEWS RIGHT 2:28 PM [facility] REPOSITORY ORIGINAL XR ANKLE MINIMUM 3 VIEWS RIGHT CLINICAL STATEMENT: pain. COMPARISON: None FINDINGS: There is a minimally displaced spiral fracture involving the distal fibula. Osseous fragments are seen inferior to the medial malleolus. No additional fractures or dislocation is identified. There is a large joint effusion and soft tissue swelling about the ankle. Degenerative changes are seen at the tibiotalar joint. There is calcaneal enthesopathy. IMPRESSION: 1. Minimally displaced spiral fracture involving the distal fibula. Soft tissue swelling about the ankle. 2. Osseous fragments inferior to the medial malleolus may represent avulsion fractures. Interpreted By: Lydia Amador MD Preliminary Report By: Lydia Amador MD Electronically Signed By: Lydia Amador MD Dictated Date: 09/03/2017 2:36:12 PM Prelim Date: 09/03/2017 2:36:12 PM Sign Date: 09/03/2017 2:46:54 PM ONCOLOGY VISIT REPORT Observed: 08/23/2017 Status: F Source: [place] 2:11 PM [facility] REPOSITORY [facility] [address] [place] [address] OFFICE VISIT Date of Service: 08/23/17 1404 MR#: [id number] Acct: [id number] Name: JAIME ANN Rep #: [id number] : 1940 From: Ean Bush MD Age/Sex: 77/M Location: OMD Status: Signed Subjective - Date of Service Date of Service:: 08/23/17 - Chief Complaint f/u for CLL and Prostate cancer.. - History of Present Illness 77y.o.man was diagnosed with CLL stage 0 in 2003. He has not required therapy. He was diagnosed with Prostate Cancer stage IIA, finished Radiation therapy in July 2015 and on LHRH agonist by Dr. Grewal. Comes in for follow up. He feels well. - Past Medical/Social History Past Medical History Past Medical History: Hypertension Other Past Medical History: Ventricular Tachycardia Cancer: Leukemia,Prostate cancer Past Surgical History Surgical: Colonoscopy,Pacemaker Other Surgical History: Surgery to remove blood from brain after a fall. Family History Paternal Past Medical History: Heart disease Maternal Past Medical History: Stroke Social History Social History: No changes Smoking Status Never smoker Review of Systems Constitutional:: Denies: Fever, Sweats, Weight loss, Appetite change, Chills Cardiovascular:: Denies: Chest pain, Palpitations, Dyspnea on exertion, Orthopnea, PND, Shortness of breath Respiratory: Denies: Cough, Hemoptysis, Shortness of Breath, Wheezing Gastrointestinal:: Denies: Abdominal pain, Nausea, Vomiting, Diarrhea, Constipation, Hematochezia Genitourinary: Denies: Dysuria, Hematuria, 15, Flank pain Musculoskeletal:: Denies: Back pain, Myalgia, Arthralgia Skin: Denies: Rash, Skin Changes, Wounds Neurological:: Denies: Headache, Dizziness, Visual changes, Tinnitus, Hearing loss Psychiatric: Denies: Anxiety, Depression, Homicidal Ideations, Suicidal Ideations Vital Signs Height 5 ft 10 in Weight: 87.362 kg Weight in Pounds 192.6 lbs Pulse Ox 99 - Physical Exam General: Alert, Oriented x3, No apparent distress HEENT: Atraumatic, PERRLA, EOMI, Normocephalic Oropharynx:: Dry mucosa Neck:: Supple, Trachea midline. Negative for: JVD, bilateral Cardiac:: Regular rate, Regular rhythm, Normal S1, Normal S2. Negative for: Murmur Lungs: Clear to auscultation, Excusion symmetrical. Negative for: Rhonchi, Wheezes Abdomen:: Bowel sounds x 4, Soft, Non-tender, Non-distended. Negative for: Hepatosplenomegaly Extremities:: Negative for: Cyanosis, Edema Neurological: Neuro grossly intact Skin:: Negative for: Lesions, Rash, Petechiae, Ecchymosis Psychiatric:: Appropriate affect, Euthymic Lymphatics:: Negative for: Cervical lymphadenopathy, Supraclavicular lymphadenopathy, Axillary lymphadenopathy Laboratory Data: 08/21/2017 Laboratory Tests WBC 15.9 H Hgb 12.3 L Plt Count 277 Absolute Lymphs (auto) 8.01 H Total PSA < 0.01 Assessment and Plan CLL-stage 0, clinically stable. Prostate cancer, PSA undetectable. Plan is to continue observation. Continue follow up with urology. RTC 6 months with CBC/CMP/LDH/PSA. Medications: Prescriptions This Visit Medication Instructions Recorded Aspirin [Lo-Dose Aspirin EC] 81 mg PO DAILY 08/09/16 Primary Care Provider: Betsey Lares Referring Provider: - Problem List (1) CLL (chronic lymphocytic leukemia) Status: Chronic (2) Prostate cancer Status: Chronic Code Visit Office Visits / Consults: [id number] OV L3 Est 08/23/17 1411 <Electronically signed by Ean Bush MD> Date Ean Bush MD Cosigner Signature: Date (if applicable) CC: CBC W/DIFF, AUTOMATED Collected: 08/21/2017 Status: F Source[facility] [place] [facility] Order Comment: Reason for Laboratory Test OV TYPE CODE TESTS RESULT OUT OF RANGE REFERENCE UNITS LAB L100.1000 4.4-11.0 K/mm3 High WBC 15.9 LAB L100.1200 4.6-6.2 M/mm3 Low RBC 4.16 LAB L100.1300 13.0-16.5 g/dl Low HGB 12.3 LAB L100.1400 40-54 % Low HCT 37.7 LAB L100.1500 80-94 fL Normal MCV 90.6 LAB L100.1600 27.0-32.0 pg Normal MCH 29.6 LAB L100.1700 32-36 g/gl Normal MCHC 32.6 LAB L100.1810 11.6-14.6 % High RDW CV 15.0 LAB L100.1820 35.1-43.9 fl High RDW SD 49.9 LAB L100.1900 150-450 K/mm3 Normal PLT 277 LAB L100.2000 6.2-12.0 fl Normal MPV 10.0 LAB L100.2100 47-70 % Low NEUT% 39.7 LAB L100.2200 19-41 % High LY% 50.4 LAB L100.2300 0-10 % Normal MONO% 6.5 LAB L100.2400 0-5 % Normal EO% 2.2 LAB L100.2500 0-1 % Normal BASO% 0.7 LAB L100.2550 0.0-0.9 % Normal IM GRAN % 0.500 Result Comment: IG% - Immature Granulocytes (promyelocytes, myelocytes and metamyelocytes) > 1% indicates that a LEFT SHIFT is Present. LAB L100.2620 2.0-7.7 X10 3/uL Normal Absolute Neut 6.3 LAB L100.2720 0.83-4.51 X10 3/ul High Absolute Lymph 8.01 LAB L100.4500 Normal SMEAR COMMENT COMMENT Result Comment: SLIDE SCANNED - LYMPHOCYTOSIS NOTED. Performed By: #### L100.0100, L500.4050, L501.9940 #### [facility] [address] [place], [address] COMPREHENSIVE METABOLIC Collected: 08/21/2017 Status: F Source: [place] PROFIL 2:13 PM [facility] REPOSITORY Order Comment: Reason for Laboratory Test OV TYPE CODE TESTS RESULT OUT OF RANGE REFERENCE UNITS LAB L501.0100 74-106 mg/dL Normal GLU 97 Result Comment: Please note revised GLUCOSE reference range effective 2017. LAB L501.1000 7-18 mg/dL High BUN 31 LAB L501.1100 0.70-1.30 mg/dL Normal CREAT,SERUM 1.19 Result Comment: The validity of the calculated GFR AND GFRAA in patients over 70 years has not been determined. Clinical correlation is essential. LAB L501.1110 >60 mL/min Normal EST GFR 63 Result Comment: Non- GFR Calc LAB L501.1115 >60 mL/min Normal EST GFR - AA 76 Result Comment: GFR Calc LAB L501.1255 ml/min Normal Estimated CRCL 51.97 LAB L501.1300 10-20 RATIO High BUN/CRE 26.1 LAB L501.1500 6.4-8. g/dL Low 2 T PROT 6.3 LAB L501.1800 3.2-5. g/dL Normal 0 ALB 3.6 LAB L501.1950 2.2-4. g/dL Normal 2 GLOB 2.7 LAB L501.2000 0.9-2. RATIO Normal 4 A/G 1.3 LAB L501.2200 8.5-10 mg/dL Normal .1 CA 8.7 LAB L501.4100 15-37 U/L Normal AST 18 LAB L501.4305 45-117 U/L Normal ALK P 89 LAB L501.4405 16-61 U/L Normal ALT 23 Result Comment: Please note revised ALT reference range effective 2017. LAB L501.4600 0.20-1.00 mg/dL Normal T BILI 0.40 LAB L501.5300 136-145 mmol/L Normal NA 143 LAB L501.5600 3.5-5.1 mmol/L Normal K 3.9 LAB L501.5900 98-107 mmol/L Normal CL 107 LAB L501.6100 21.0-32.0 mmol/L Normal CO2 30.0 LAB L501.6200 5-15 Normal GAP 6 Performed By: #### L100.0100, L500.4050, L501.9940 #### [facility] [address] [place], [address] PSA,TOTAL- DIAGNOSTIC Collected: 08/21/2017 Status: F Source: [place] 2:13 PM [facility] REPOSITORY Order Comment: Reason for Laboratory Test OV TYPE CODE TESTS RESULT OUT OF RANGE REFERENCE UNITS LAB L501.9940 0.0-4.0 ng/mL PSA, Normal DIAGNOSTIC < 0.01 Result Comment: This test was performed using the TPSA assay method for the [employer] chemistry system. Values obtained with different assay methods cannot be used interchangably. When changing PSA assays in the course of monitoring a patient, additional sequential testing should be carried out to confirm baseline values. 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 2015, no recurrence Orthostatic hypotension HL LBBB ADHERENCE TO GUIDELINES HERACLIO-I or ARB for HF with prior LVEF<40 (NQF 0081) - met ASA or Plavix for ASHD (NQF 0067) - met Beta domingo for ASHD with prior PA or prior LVEF<40 (NQF 0070) - met Beta domingo for HF with prior LVEF<40 (NQF 0083) - met HERACLIO-I or ARB for ASHD with DM or prior LVEF<40 (NQF 0066) - met Statin therapy for ASHD or FHL or DM - met BMI documented and plan if >25 (NQF 0421) - lifestyle recommendation form Tobacco use screening and referral (NQF 0028) - lifestyle recommendation form Recommendation for whole food, plant based diet - lifestyle recommendation form CLINICAL IMPRESSION/PLAN: Jaime Ann is doing well. His hemodynamics are optimized and he is receiving excellent therapy from his device. He will continue to be followed in heart failure clinic and EP. Labs are being followed in primary care, including lipids. I will continue to follow him periodically and be available for local issues. I will see him in 6 months or as needed. Written and verbal health teaching given to patient, patient verbalizes understanding and agrees with treatment plan. This note was generated using [employer] voice recognition system, and there may be some incorrect words, spellings, and punctuation that were not noted in checking the note before saving. DIAGNOSIS FOR VISIT: Cardiomyopathy The orthostatic hypotension HISTORY OF PRESENT ILLNESS Jaime Ann is a 76 -year-old gentleman with multiple cardiac issues, who is seen in follow-up. He was previously a patient of Dr. Arthur. He also follows with electrophysiology and heart failure clinic in [place] . He reports stable exercise tolerance. He has occasional postural lightheadedness but is able to keep from falling. He is cautious. He has had no recent chest discomfort and has used no nitroglycerin. He denies orthopnea. He's had no edema, palpitations, TIAs, amaurosis or claudication. He has received no therapies from his device. ALLERGIES: ALLERGIES Allergen Reactions - Lisinopril Cough CURRENT OUTPATIENT MEDICATIONS: carvedilol (COREG) 25 mg tablet Take 1 tablet by mouth twice daily. atorvastatin (LIPITOR) 20 mg tablet TAKE 1 TABLET BY MOUTH ONCE DAILY. sacubitril-valsartan (ENTRESTO) 24-26 mg tablet Take 1 tablet by mouth twice daily. aspirin 81 mg chewable tablet Take 1 tablet by mouth every 48 hours. CHOLECALCIFEROL, VITAMIN D3, (VITAMIN D3 ORAL) Take 1,000 Units by mouth once daily. oxybutynin ER (DITROPAN XL) 10 mg 24 hr tablet Take 10 mg by mouth once daily. Coenzyme Q10 (CO Q-10) 400 mg cap Take 1 capsule by mouth once daily. DAILY MULTI-VITAMIN ORAL Take 1 tablet by mouth once daily. mnbtpobucxn-N5-zkiewtafn serr (OSTEO BI-FLEX, 5-LOXIN,) 1,500-400-100 mg-unit-mg tab Take 1 tablet by mouth once daily. gabapentin (NEURONTIN) 300 mg capsule Take 1 capsule by mouth three times daily for 180 days. Start with 300 mg (1 cap) at bedtime. PAST MEDICAL HISTORY Diagnosis Date - Chronic lymphocytic leukemia (HCC) - HTN (hypertension) - Liver cyst - Non-ischemic cardiomyopathy (HCC) - Peripheral neuropathy - Prostate cancer (HCC) s/p external radiation. no resection - Splenic artery aneurysm (HCC) - Subdural hematoma (HCC) summer 2015, after heart stopped and fell, s/p evacuation - Ventricular tachycardia (HCC) in 1983 and 2015 PAST SURGICAL HISTORY Procedure Laterality Date - ARTERIAL EMBOLIZATION, NON-HEMORRHAGE/TUMOR - TEACHING MUSIC LESSONS ICD (ICDCRT) 09/2015 - PAST SURGICAL HISTORY OF Right CMC arthroplasty - PAST SURGICAL HISTORY OF percutaneous splenic artery aneurysm repair FAMILY HISTORY Problem Relation Age of Onset - Stroke Mother - Hypertension Mother - Diabetes Mother - Diabetes Father - Ischemic Heart Disease Father Social History Marital status: Spouse name: Years of education: Number of children: Social History Main Topics Smoking status: Never Smoker Smokeless status: Never Used Alcohol use: Yes Comment: rare use Drug use: No REVIEW OF SYSTEMS: General: No chills, fever, weight loss, night sweats. Respiratory: No productive cough. Cardiac: As noted above. GI: No melena. : No dysuria. Musculoskeletal: No myalgias. PHYSICAL EXAMINATION: S/he is alert and in no distress. VITAL SIGNS: BP 130/71 Pulse 74 Wt 192 lb 9.6 oz (87.4kg) SHEENT: Skin is warm and dry. No xanthelasmas appreciated. Pharynx is benign. There is no oral cyanosis. Neck: supple. No adenopathy or thyroid enlargement. Chest: Clear to percussion and auscultation. Trachea is midline. Air entry is equal. There is no chest wall tenderness. Cardiac: Regular rhythm. S1 and S2 are normal. PMI is sustained and enlarged. There is a soft murmur of mitral insufficiency. Carotids are brisk without bruits. JVP is less than 10 cm. Abdomen: Soft and nontender. There are no pulsatile masses or bruits. No liver enlargement. Bowel sounds are active. Extremities: No edema. Pulses are intact and symmetrical. No clubbing or cyanosis. No femoral bruits. Neurologic: Grossly normal motor and sensory. S/he is alert and oriented x4. Most recent echocardiogram shows ejection fraction of 35%. This has not improved with aggressive medical therapy. He has no significant coronary disease. Recent EKG shows paced rhythm. Device check shows near 100% biventricular pacing. Recent labs were reviewed. Renal function is normal. CBC is within normal limits. Electronically Signed: Ag Horne MD July 19, 2017 2:29 PM CC:Betsey Lares Jr, MD CNOV Observed: 07/19/2017 Status: COMPLETED Source: [place] 2:00 PM [facility] OTHER [facility] REPOSITORY Office Visit (AGCARDWST) JAIME ANN ([id number]) 1940 M Date Time Provider Department 07/19/17 2:00 PM AG HORNE AGCARDWST During your visit today, we recorded the following information about you: Pulse Blood pressure Weight 74/minute 130/71 87.4 kg Christos Reeves, RN, RN 07/20/2017 9:40 AM Signed Copy of OV note mailed to Dr. Lares's office. 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 2014, no recurrence Orthostatic hypotension HL LBBB ADHERENCE TO GUIDELINES HERACLIO-I or ARB for HF with prior LVEFANDlt;40 (NQF 0081) - met ASA or Plavix for ASHD (NQF 0067) - met Beta domingo for ASHD with prior PA or prior LVEFANDlt;40 (NQF 0070) - met Beta domingo for HF with prior LVEFANDlt;40 (NQF 0083) - met HERACLIO-I or ARB for ASHD with DM or prior LVEFANDlt;40 (NQF 0066) - met Statin therapy for ASHD or FHL or DM - met BMI documented and plan if ANDgt;25 (NQF 0421) - lifestyle recommendation form Tobacco use screening and referral (NQF 0028) - lifestyle recommendation form Recommendation for whole food, plant based diet - lifestyle recommendation form CLINICAL IMPRESSION/PLAN: Jaime Ann is doing well. His hemodynamics are optimized and he is receiving excellent therapy from his device. He will continue to be followed in heart failure clinic and EP. Labs are being followed in primary care, including lipids. I will continue to follow him periodically and be available for local issues. I will see him in 6 months or as needed. Written and verbal health teaching given to patient, patient verbalizes understanding and agrees with treatment plan. This note was generated using Cas[employer]et voice recognition system, and there may be some incorrect words, spellings, and punctuation that were not noted in checking the note before saving. DIAGNOSIS FOR VISIT: Cardiomyopathy The orthostatic hypotension HISTORY OF PRESENT ILLNESS Jaime Ann is a 76 -year-old gentleman with multiple cardiac issues, who is seen in follow-up. He was previously a patient of Dr. Arthur. He also follows with electrophysiology and heart failure clinic in [place] . He reports stable exercise tolerance. He has occasional postural lightheadedness but is able to keep from falling. He is cautious. He has had no recent chest discomfort and has used no nitroglycerin. He denies orthopnea. He's had no edema, palpitations, TIAs, amaurosis or claudication. He has received no therapies from his device. ALLERGIES: ALLERGIES Allergen Reactions - Lisinopril Cough CURRENT OUTPATIENT MEDICATIONS: carvedilol (COREG) 25 mg tablet Take 1 tablet by mouth twice daily. atorvastatin (LIPITOR) 20 mg tablet TAKE 1 TABLET BY MOUTH ONCE DAILY. sacubitril-valsartan (ENTRESTO) 24-26 mg tablet Take 1 tablet by mouth twice daily. aspirin 81 mg chewable tablet Take 1 tablet by mouth every 48 hours. CHOLECALCIFEROL, VITAMIN D3, (VITAMIN D3 ORAL) Take 1,000 Units by mouth once daily. oxybutynin ER (DITROPAN XL) 10 mg 24 hr tablet Take 10 mg by mouth once daily. Coenzyme Q10 (CO Q-10) 400 mg cap Take 1 capsule by mouth once daily. DAILY MULTI-VITAMIN ORAL Take 1 tablet by mouth once daily. ioxzzdfbgwa-O5-lxuqwkwld serr (OSTEO BI-FLEX, 5-LOXIN,) 1,500-400-100 mg-unit-mg tab Take 1 tablet by mouth once daily. gabapentin (NEURONTIN) 300 mg capsule Take 1 capsule by mouth three times daily for 180 days. Start with 300 mg (1 cap) at bedtime. PAST MEDICAL HISTORY Diagnosis Date - Chronic lymphocytic leukemia (HCC) - HTN (hypertension) - Liver cyst - Non-ischemic cardiomyopathy (HCC) - Peripheral neuropathy - Prostate cancer (HCC) s/p external radiation. no resection - Splenic artery aneurysm (HCC) - Subdural hematoma (HCC) summer 2015, after heart stopped and fell, s/p evacuation - Ventricular tachycardia (HCC) in 1983 and 2015 PAST SURGICAL HISTORY Procedure Laterality Date - ARTERIAL EMBOLIZATION, NON-HEMORRHAGE/TUMOR - TEACHING MUSIC LESSONS ICD (ICDCRT) 09/2015 - PAST SURGICAL HISTORY OF Right CMC arthroplasty - PAST SURGICAL HISTORY OF percutaneous splenic artery aneurysm repair FAMILY HISTORY Problem Relation Age of Onset - Stroke Mother - Hypertension Mother - Diabetes Mother - Diabetes Father - Ischemic Heart Disease Father Social History Marital status: Spouse name: Years of education: Number of children: Social History Main Topics Smoking status: Never Smoker Smokeless status: Never Used Alcohol use: Yes Comment: rare use Drug use: No REVIEW OF SYSTEMS: General: No chills, fever, weight loss, night sweats. Respiratory: No productive cough. Cardiac: As noted above. GI: No melena. : No dysuria. Musculoskeletal: No myalgias. PHYSICAL EXAMINATION: S/he is alert and in no distress. VITAL SIGNS: BP 130/71 Pulse 74 Wt 192 lb 9.6 oz (87.4kg) SHEENT: Skin is warm and dry. No xanthelasmas appreciated. Pharynx is benign. There is no oral cyanosis. Neck: supple. No adenopathy or thyroid enlargement. Chest: Clear to percussion and auscultation. Trachea is midline. Air entry is equal. There is no chest wall tenderness. Cardiac: Regular rhythm. S1 and S2 are normal. PMI is sustained and enlarged. There is a soft murmur of mitral insufficiency. Carotids are brisk without bruits. JVP is less than 10 cm. Abdomen: Soft and nontender. There are no pulsatile masses or bruits. No liver enlargement. Bowel sounds are active. Extremities: No edema. Pulses are intact and symmetrical. No clubbing or cyanosis. No femoral bruits. Neurologic: Grossly normal motor and sensory. S/he is alert and oriented x4. Most recent echocardiogram shows ejection fraction of 35%. This has not improved with aggressive medical therapy. He has no significant coronary disease. Recent EKG shows paced rhythm. Device check shows near 100% biventricular pacing. Recent labs were reviewed. Renal function is normal. CBC is within normal limits. Electronically Signed: Ag Horne MD July 19, 2017 2:29 PM CC:MD Ag Bender Jr, MD 07/19/2017 2:30 PM Signed LIFESTYLE CHANGE A healthy lifestyle is the most important component of your overall treatment plan. Please give serious thought to the following areas and commit to making skilled nursing changes. EAT A WHOLE FOOD, PLANT BASED DIET The nutrition your body gets is more important than the medicine you take. What matters most is the overall way you eat. We encourage you to minimize the use of animal products (which include dairy and all meats except fatty fish) and use whole, unprocessed plant foods to provide your protein, vitamins and other nutrients. We have a lot of information to share with you on this topic. We also hold Shared Medical Appointments, where you can come visit with Dr. Horne in the company of other patients and spend over an hour talking about the challenges of changing the way you eat. This is not a ANDquot;dietANDquot;. It is a way of life that you will keep with you. EXERCISE REGULARLY It is not important to spend hours in the gym, lifting weights and perspiring heavily. A total of 2-3 hours per week of aerobic (causing you to be moderately short of breath) exercise is sufficient to improve your health. Talk to us before you begin a new exercise program, if you have heart disease or experience shortness of breath or chest pain. REDUCE STRESS Chronic emotional and physical stress leads to disease. Ways of reducing stress include meditation, visualization, prayer, yoga and other forms of relaxation therapy. Consistency is the ny. Find a technique that works for you and do it every day. CULTIVATE RELATIONSHIPS Loneliness and isolation have a major negative impact on health. Seek out others who can love, care for and nurture you. Avoid hurtful relationships. MAINTAIN IDEAL BODY WEIGHT The best way to do this is to do all the things above. Our bodies naturally find the right weight if we keep moving and feed ourselves the right food. If your BMI is greater than 25, we strongly recommend a referral to a weight management program. Please speak to us or your family physician about available programs. AVOID NICOTINE IN ALL FORMS This includes all tobacco products, whether chewed, smoked, vaped, or rubbed on the skin. Smoking cessation programs, which can make use of tobacco substitutes, medications to suppress cravings and behavior management, are available. Please contact your family physician about programs in your area. Referring Provider: SELF [[id number]] Allergies As of Date: 07/19/2017 Noted Allergy Reaction LISINOPRIL 07/04/2016 3 - Cough Date Reviewed: 07/19/2017 Reviewed by: Linnea Mehta - Fully Assessed Reason for Visit: Recheck [92] Primary Visit Diagnosis:Cardiomyopathy, nonischemic (HCC) [I42.8] Other Visit Diagnoses:Hypertension, essential [I10] Cardiac syncope [R55] Prescriptions as of 07/19/2017 Sig: CARVEDILOL 25 MG TABLET Take 1 tablet by mouth twice * ATORVASTATIN 20 MG TABLET TAKE 1 TABLET BY MOUTH ONCE D* SACUBITRIL 24 MG-VALSARTAN 26* Take 1 tablet by mouth twice * ASPIRIN 81 MG CHEWABLE TABLET Take 1 tablet by mouth every * VITAMIN D3 ORAL Take 1,000 Units by mouth onc* OXYBUTYNIN CHLORIDE ER 10 MG * Take 10 mg by mouth once percy* COENZYME Q10 400 MG CAPSULE Take 1 capsule by mouth once * DAILY MULTI-VITAMIN ORAL Take 1 tablet by mouth once d* GLUCOSAMINE [id number] * Take 1 tablet by mouth once d* GABAPENTIN 300 MG CAPSULE Take 1 capsule by mouth three* Medication notes this encounter GABAPENTIN 300 MG CAPSULE >> Linnea Mehta LPN 07/19/2017 2:07 PM >> LINNEA MEHTA LPN Isabel Jul 19, 2017 2:07 PM Not taking Problem List As Of Date 07/19/2017 Noted Resolved Left bundle branch block [I44.7] INVALID FOR* Priority: C Hypertension [I10] INVALID FOR*10/06/2016 More... Near syncope [R55] INVALID FOR* Hx of ventricular tachycardia [Z86.79] INVALID FOR* Splenic artery aneurysm (HCC) [I72.8] INVALID FOR* Cellulitis due to MRSA [L03.90, B95.62] INVALID FOR* Syncope [R55] INVALID FOR* Priority: A More... SUMMARY INVALID FOR* Priority: Mild More... 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] INVALID FOR* Peripheral polyneuropathy (HCC) [G62.9] INVALID FOR* Abnormality of gait [R26.9] INVALID FOR* Disturbance of skin sensation [R20.9] INVALID FOR* Pain in both lower extremities [M79.604, M79.60*INVALID FOR* Abnormal finding of blood chemistry [R79.9] INVALID FOR* Abnormal glucose [R73.09] INVALID FOR* Other instructions from your clinician: LIFESTYLE CHANGE A healthy lifestyle is the most important component of your overall treatment plan. Please give serious thought to the following areas and commit to making skilled nursing changes. EAT A WHOLE FOOD, PLANT BASED DIET The nutrition your body gets is more important than the medicine you take. What matters most is the overall way you eat. We encourage you to minimize the use of animal products (which include dairy and all meats except fatty fish) and use whole, unprocessed plant foods to provide your protein, vitamins and other nutrients. We have a lot of information to share with you on this topic. We also hold Shared Medical Appointments, where you can come visit with Dr. Horne in the company of other patients and spend over an hour talking about the challenges of changing the way you eat. This is not a diet. It is a way of life that you will keep with you. EXERCISE REGULARLY It is not important to spend hours in the gym, lifting weights and perspiring heavily. A total of 2-3 hours per week of aerobic (causing you to be moderately short of breath) exercise is sufficient to improve your health. Talk to us before you begin a new exercise program, if you have heart disease or experience shortness of breath or chest pain. REDUCE STRESS Chronic emotional and physical stress leads to disease. Ways of reducing stress include meditation, visualization, prayer, yoga and other forms of relaxation therapy. Consistency is the ny. Find a technique that works for you and do it every day. CULTIVATE RELATIONSHIPS Loneliness and isolation have a major negative impact on health. Seek out others who can love, care for and nurture you. Avoid hurtful relationships. MAINTAIN IDEAL BODY WEIGHT The best way to do this is to do all the things above. Our bodies naturally find the right weight if we keep moving and feed ourselves the right food. If your BMI is greater than 25, we strongly recommend a referral to a weight management program. Please speak to us or your family physician about available programs. AVOID NICOTINE IN ALL FORMS This includes all tobacco products, whether chewed, smoked, vaped, or rubbed on the skin. Smoking cessation programs, which can make use of tobacco substitutes, medications to suppress cravings and behavior management, are available. Please contact your family physician about programs in your area. Visit Notes: >> Christos (Jose De Jesus) JOSE DE JESUS Reeves Isabel Jul 19, 2017 9:40 AM Status: Signed Copy of OV note mailed to Dr. Lares's office. Encounter Status:Closed by AG HORNE MD on 07/19/17 GLU Collected: 07/17/2017 Status: F Source: [place] [facility] 7:30 AM [facility] REPOSITORY TYPE CODE TESTS RESULT OUT OF REFERENCE UNITS RANGE LAB 1547-9 83-110 mg/dL GLUCOSE 103 Performed By: #### GLU #### [id number] [place], [place] [address] MONOCLONAL PROT UR Collected: 07/04/2017 Status: F Source: [place] 4:10 PM [facility] REPOSITORY TYPE CODE TESTS RESULT OUT OF REFERENCE UNITS RANGE LAB UMPA No M protein is identified. No UMPA M protein is Result identified. LAB UMPSTF UMPA Reviewed by Staff Review Misbah Turner M.D., PhD ([id number]) Performed By: #### URMPA #### [facility] [address] [place], [place] [address] FERRITIN Collected: 07/04/2017 Status: F Source: [place] 2:51 PM [facility] REPOSITORY TYPE CODE TESTS RESULT OUT OF REFERENCE UNITS RANGE LAB FERR 30.3-565.7 ng/mL Ferritin 125.9 Performed By: #### FERR, B12, SERFOL, HBA1C, KLFRS, MMA, CELSCR, IFESC #### [facility] [address] [place], [place] [address] VITAMIN B12 Collected: 07/04/2017 Status: F Source: [place] 2:51 PM [facility] REPOSITORY TYPE CODE TESTS RESULT OUT OF REFERENCE UNITS RANGE LAB B12 232-1245 pg/mL High Vitamin B12 1527 Performed By: #### FERR, B12, SERFOL, HBA1C, KLFRS, MMA, CELSCR, IFESC #### [facility] [address] [id number] FOLATE, SERUM Collected: 07/04/2017 Status: F Source: [place] 2:51 PM [facility] REPOSITORY TYPE CODE TESTS RESULT OUT OF REFERENCE UNITS RANGE LAB SERFOL >4.7 ng/mL Folate, >20.0 Serum Result Comment: A result of > 20 ng/mL is not necessarily indicative of a pathologic or treatable condition: it reflects a limitation of the test methodology. Assay reference range: 4.8 to 24.2 ng/mL. Suitable for detection of folate deficiency. Reference: Folate III (Folate III) [package insert V 1.0 [place]]. [place], [place], [place]: March 2015. Performed By: #### FERR, B12, SERFOL, HBA1C, KLFRS, MMA, CELSCR, IFESC #### [id number] [place] [address] HEMOGLOBIN A1C Collected: 07/04/2017 Status: F Source: [place] 2:51 PM [facility] REPOSITORY TYPE CODE TESTS RESULT OUT OF REFERENCE UNITS RANGE LAB HGBA1C 4.3-5.6 % High Hemoglobin A1c 6.4 LAB HBA0 mg/dL Est. Average Glucose 137 Result Comment: eAG: (Estimated average glucose) is a calculated value from HgbA1c and is medical office representative of the average blood glucose level in the last 2-3 month period. Performed By: #### FERR, B12, SERFOL, HBA1C, KLFRS, MMA, CELSCR, IFESC #### [facility] [address] [place], [place] [address] KAPPA/JOSHI,FREE,SER Collected: Status: F Source: [place] 07/04/2017 2:51 PM [facility] REPOSITORY TYPE CODE TESTS RESULT OUT OF REFERENCE UNITS RANGE LAB FKAPS 3.30-19.40 mg/L [place], 12.2 Free, Serum Result Comment: Rarely, increased serum free light chains values may not be detected due to antigen excess phenomenon. Results should always be correlated with other laboratory results and clinical findings. LAB FLAMS 5.7-26.3 mg/L Lambda, Free, 14.5 Serum Result Comment: Rarely, increased serum free light chains values may not be detected due to antigen excess phenomenon. Results should always be correlated with other laboratory results and clinical findings. LAB KLRAT 0.26-1.65 K/L Ratio, 0.84 Serum Performed By: #### FERR, B12, SERFOL, HBA1C, KLFRS, MMA, CELSCR, IFESC #### [facility] [address] [place] [id number] METHYLMALONIC ACID Collected: 07/04/2017 Status: F Source: [place] 2:51 PM [facility] REPOSITORY TYPE CODE TESTS RESULT OUT OF REFERENCE UNITS RANGE LAB MMA 79-376 nmol/L Methylmalonic Acid 344 Result Comment: This test was developed and its performance characteristics determined by [facility] [place] ([facility]). It has not been cleared or approved by the FDA. -[facility] is regulated under CLIA as qualified to perform high-complexity testing. This test is used for clinical purposes. It should not be regarded as investigational or for research. Performed By: #### FERR, B12, SERFOL, HBA1C, KLFRS, MMA, CELSCR, IFESC #### [id number] [place] [address] CELIAC SCR W REFLEX Collected: 07/04/2017 Status: F Source: [place] 2:51 PM [facility] REPOSITORY TYPE CODE TESTS RESULT OUT OF REFERENCE UNITS RANGE LAB IGA 78-391 mg/dL IgA Low 45 LAB TGLUTA <20 Units Transglutaminase IgA 1 Result Comment: Negative : < 20 Units Weak Positive : 20 - 30 Units Moderate Pos to Strong Pos: >30 Units The following results were obtained with the [employer] QUANTA Lite h-tTG IgA KEITH. h-tTG IgA values obtained with different manufacturers' assay methods may not be used interchangeably. The magnitude of th e reported IgA levels cannot be correlated to an endpoint titer. LAB CINTER No serologic evidence of Interpretation No celiac disease. serologic evidence of celiac disease. Performed By: #### FERR, B12, SERFOL, HBA1C, KLFRS, MMA, CELSCR, IFESC #### [facility] [address] [place], [place] [address] GENESIS SCREEN, SERUM Collected: 07/04/2017 Status: F Source: [place] 2:51 PM [facility] REPOSITORY TYPE CODE TESTS RESULT OUT OF REFERENCE UNITS RANGE LAB MPAR No M protein is identified. No MPA M protein is Result identified. LAB MPASTF Staff Reviewed by Review Misbah Turner M.D., PhD ([id number]) Performed By: #### FERR, B12, SERFOL, HBA1C, KLFRS, MMA, CELSCR, IFESC #### [facility] [address] [place] [id number] COMP METABOLIC PANEL Collected: 07/04/2017 Status: F Source: [place] 2:50 PM [facility] REPOSITORY TYPE CODE TESTS RESULT OUT OF REFERENCE UNITS RANGE LAB TP 6.3-8.0 g/dL Low Protein, Total 6.1 LAB ALB 3.9-4.9 g/dL Albumin 3.9 LAB CA 8.5-10.2 mg/dL Calcium, Total 9.4 LAB TBIL 0.2-1.3 mg/dL Bilirubin, Total 0.4 LAB ALKP 36-108 U/L Alkaline Phosphatase 94 LAB AST 14-40 U/L AST 21 LAB GLU 74-99 mg/dL Glucose 87 Result Comment: The [place] [employer] Association (ADA) provides guidance for cutoff values for fasting glucose and random glucose. The ADA defines fasting as no caloric intake for at least 8 hours. Fas ting plasma glucose results between 100 to 125 mg/dL indicate increased risk for diabetes (prediabetes). Fasting plasma glucose results greater than or equal to 126 mg/dL meet the criteria for diagnosis of diabetes. In the absence of unequivocal hyperglycemia, results should be confirmed by repeat testing. In a patient with classic symptoms of hyperglycemia or hyperglycemic crisis, random plasma glucose results greater than or equal to 200 mg/dL meet the criteria for diagnosis of diabetes. Reference: Standards of Medical Care in Diabetes 2016, [place] [employer] Association. Diabetes Care. 2016.39(Suppl 1). LAB BUN 9-24 mg/dL BUN High 30 LAB CRET 0.73-1.22 mg/dL Creatinine 1.15 LAB NA 136-144 mmol/L Sodium 143 LAB K 3.7-5.1 mmol/L Potassium 4.1 LAB CL 97-105 mmol/L Chloride 105 LAB CO2 22-30 mmol/L CO2 26 LAB AGAP 9-18 mmol/L Anion Gap 12 LAB ALT 10-54 U/L ALT 18 LAB GFRAA eGFR- Amer. >60 LAB GFRNAA . eGFR-All Other Races >60 Result Comment: eGFR (Estimated GFR) Units of measure: mL/min/1.73 meters squared eGFR is derived from the reexpressed MDRD Study equation using the following parameters: serum creatinine, age, gender and race. The creatinine assay has been calibrated to be traceable to IDMS. An eGFR <60 mL/min/1.73m2 for >3 months is consistent with chronic kidney disease. Refer to KDOQI guidelines for clinical interpretation. In patients with unstable renal function, e.g. those with acute kidney injury, the eGFR may not accurately reflect actual GFR. Performed By: #### CMP #### [facility] [id number] PROGRESS Observed: 07/04/2017 Status: COMPLETED Source: [place] 12:58 PM [facility] REPOSITORY HNO ID: [id number] Author: Yehuda Lainez Service: (none) Author Type: Physician Type: Progress Notes Filed: 07/10/2017 5:18 AM Note Text: [facility] [facility] New Patient Visit Note Consultation requested by Dr. Abhinav Sam for an opinion regarding neuropathy and balance issues. My final recommendations will be communicated back to the requesting physician by way of shared Medical record or letter to requesting physician via US mail. History of Present Illness: Mr. Ann is a pleasant 76 year old right-handed male with a history of HTN, CAD s/p AICD, CLL (15 years ago, in remission), prostate ca (s/p radiation, diagnosed in 2016) and subdural hematoma s/p fall presenting for evaluation of neuropathy symptoms and balance issues. The patient notes numbness in his feet for the past 10 years with some occasional stinging. He describes the numbness as feeling like he always has something around his foot. 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 It can wake him up at night. He was treated for this with Nortriptyline. He tried Lyrica and Neurotonin and he stopped due to fatigue. He also expresses an urge to move his feet at night. He was seen by Dr. Sam in Movement Disorder who felt he may have RLS. He is being weaned off Nortriptyline and onto Requip. He has had some fall recently (at work off a scaffolding and down the stairs). 2 years ago, he had an PA and fell which was complicated by subdural hematoma. He does report some issues with balance. He does not use a cane or walker. He is still working. When he closes his eyes in the shower, he has to hold onto the wall. He has a family history of neuropathy. He reports that all his brothers all have similar symptoms. The patient denies noticing any recent muscle bulk loss. There is no muscle pain, no cramps or muscle twitching. He denies symptoms suggestive of oculobulbar weakness including diplopia, ptosis, dysphagia, poor saliva control, dysarthria/dysphonia, impaired mastication, facial weakness/droop. The patient has not noticed any recent skin rashes nor does he report any constitutional symptoms like fever, night sweats, anorexia or unintentional weight loss. PAST MEDICAL HISTORY Diagnosis Date - Chronic lymphocytic leukemia (HCC) - HTN (hypertension) - Liver cyst - Non-ischemic cardiomyopathy (HCC) - Peripheral neuropathy - Prostate cancer (HCC) s/p external radiation. no resection - Splenic artery aneurysm (HCC) - Subdural hematoma (HCC) summer 2015, after heart stopped and fell, s/p evacuation - Ventricular tachycardia (HCC) in 1983 and 2015 PAST SURGICAL HISTORY Procedure Laterality Date - ARTERIAL EMBOLIZATION, NON-HEMORRHAGE/TUMOR - TEACHING MUSIC LESSONS ICD (ICDCRT) 09/2015 - PAST SURGICAL HISTORY OF Right CMC arthroplasty - PAST SURGICAL HISTORY OF percutaneous splenic artery aneurysm repair Medications: Current Outpatient Prescriptions: gabapentin (NEURONTIN) 300 mg capsule Take 1 capsule by mouth three times daily for 180 days. Start with 300 mg (1 cap) at bedtime. rOPINIRole (REQUIP) 0.25 mg tablet Take 1 tablet by mouth daily at bedtime. carvedilol (COREG) 25 mg tablet Take 1 tablet by mouth twice daily. atorvastatin (LIPITOR) 20 mg tablet TAKE 1 TABLET BY MOUTH ONCE DAILY. sacubitril-valsartan (ENTRESTO) 24-26 mg tablet Take 1 tablet by mouth twice daily. aspirin 81 mg chewable tablet Take 1 tablet by mouth every 48 hours. CHOLECALCIFEROL, VITAMIN D3, (VITAMIN D3 ORAL) Take 1,000 Units by mouth once daily. oxybutynin ER (DITROPAN XL) 10 mg 24 hr tablet Take 10 mg by mouth once daily. Coenzyme Q10 (CO Q-10) 400 mg cap Take 1 capsule by mouth once daily. nortriptyline (PAMELOR) 75 mg capsule Take 75 mg by mouth twice daily. DAILY MULTI-VITAMIN ORAL Take 1 tablet by mouth once daily. dhowygvdjid-T8-erblavewy serr (OSTEO BI-FLEX, 5-LOXIN,) 1,500-400-100 mg-unit-mg tab Take 1 tablet by mouth once daily. No current facility-administered medications for this visit. Allergies: See updated allergies documented below. ALLERGIES Allergen Reactions - Lisinopril Cough Social History Marital status: Spouse name: Years of education: Number of children: Social History Main Topics Smoking status: Never Smoker Smokeless status: Never Used Alcohol use: Yes Comment: rare use Drug use: No FAMILY HISTORY Problem Relation Age of Onset - Stroke Mother - Hypertension Mother - Diabetes Mother - Diabetes Father - Ischemic Heart Disease Father No history of neuromuscular disease. ROS: CONSTITUTIONAL: No reported fevers, chills, night sweats, or significant unintentional weight loss. EYES: No visual changes indicated. No eye pain or orbital swelling reported. HEENT: No hearing changes. No history of nose bleeds reported. He reports occasional episodes of vertigo. RESPIRATORY: No reported sputum, wheezing and dyspnea. + dry cough CARDIOVASCULAR: Negative for significant chest pain, and palpitations per report. GI: Negative for significant abdominal discomfort, blood in stools or black stools reported. No recent reported change in bowel habits. : No reported history of incontinence. No dark/cola colored urine reported. MUSCLOSKELETAL: No history of significant joint pain or swelling, or myalgias reported. SKIN: Negative for pertinent lesions, rash, and itching per report. HEMATOLOGY/ONCOLOGY: Negative for reported prolonged bleeding, bruising easily, and swollen nodes. ENDOCRINE: Negative for reported significant cold or heat intolerance, no reported goitrous neck swelling or polydipsia PSYCH: No reported depression or anxiety symptoms. NEURO: Per HPI above. Vital Signs: BP 149/59 Pulse 60 SpO2 96% Pain Scale: 0 on a scale of 0-10 General Medical Exam: General: Clinically well-appearing, comfortable. Eyes/ENT: see cranial nerve examination. Neck: No masses appreciated. Adequate range of motion without tenderness. Respiratory: Clear to auscultation, good air entry bilaterally. Cardiac/vascular: Regular rate and rhythm, no murmur appreciated. No carotid bruits appreciated. GI: non-distended abdomen. Rectal examination deferred. Back: Moderate range flexion and extension with no pain to palpation. Extremities: No pertinent deformities, no significant edema, or skin discoloration. Skin: Skin color, texture, turgor normal. No pertinent rashes or lesions. Neurologic Exam: Mental status including: orientation to time, place, person, recent and remote memory, attention span and concentration, language, and fund of knowledge is essentially normal. CRANIAL NERVES: II: No visual field defects. Funduscopic examination without appreciable abnormalities. III-IV-: Pupils equal round and reactive to light. Normal conjugate, extra-ocular eye movements in all directions of gaze. No nystagmus. No ptosis prior to or post sustained upgaze. V: Normal facial sensation. Jaw jerk is absent. VII: Normal facial symmetry and movements. No pathologic facial reflexes. VIII: Normal hearing and vestibular function. IX-X: Normal palatal movement. XI: Normal shoulder shrug and head rotation. XII: Normal tongue strength and range of motion, no deviation or fasciculation. Speech is not dysarthric. MOTOR: No appreciable atrophy, fasciculations or abnormal movements. No pronator drift. No scapular winging. Tone is within normal limits. Strength/Power (MRC grade- out of 5): Neck Flexion 5 Neck Extension 5 Upper extremity power, when graded out of 5, revealed: ?? ? Right Left ?? shoulder abduction 5 5 ? shoulder adduction 5 5 shoulder internal rotation 5 5 shoulder external rotation 5 5 ? elbow extension 5 5 ? elbow flexion 5 5 ? forearm supination 5 5 forearm pronation 5 5 ? wrist extension 5 5 ? wrist flexion 5 5 ? finger extension 5 5 ? deep finger flexion (D2-3) 5 5 deep finger flexion (D4-5) 5 5 ? thumb flexion with FPL 5 5 ? thumb abduction with APB 5 5 ? finger abduction 5 5 ? Lower extremity strength, when reported the same way, showed:? ? Right Left ?? hip flexion 5 5 ? hip extension 5 5 ? hip adduction 5 5 hip abduction 5 5 ? knee flexion 5 5 ? knee extension 5 5 ? ankle dorsiflexion 5 5 ? ankle plantar flexion 5 5 ? foot inversion 5 5 ? foot eversion 5 5 ? toe extension 5 5 ? toe flexion 5 5 ? Deep Tendon Reflexes (DTRs):? ? ? Right Left ?? Biceps 1+ 2+ ? Triceps 1+ 2+ ? Brachioradialis 1+ 2+ ? Patellar 1+ 1+ ? Achilles 0 0 ? Vertical spread: No Crossed adductors: No Klein's sign: No Tromner's sign: No Plantar responses: flexor Clonus: No SENSORY: Normal and symmetrical perception of light touch, pinprick, temperature, vibration, and proprioception except: - Diminished vibration: distal to the knee on the right, distal to ankle on the left - Increased temperature perception in the feet - Pinprick dysestheia in the feet - Normal proprioception. Romberg's sign absent. COORDINATION/GAIT: Normal finger-to- nose-finger and wick-xa-ffwb bilaterally. Intact rapid alternating movements bilaterally. Gait narrow-based and stable. Toe and heel walking intact. Unable to tandem OUTSIDE RECORDS: The patient provided outside medical records, which were reviewed during the course of the visit. The relevant details are summarized below: Hemoglobin A1C (11/17/2015) - 5.6 INTERNAL RECORDS: The patient's electronic medical record was reviewed. The relevant details include: CT head (07/04/2017) IMPRESSION: Left parietal craniotomy. No CT evidence of acute intracranial abnormality. IMPRESSION: 76 year old right-handed male with a history of HTN, CAD s/p AICD, CLL (15 years ago, in remission), prostate ca (s/p radiation, diagnosed in 2016) and subdural hematoma s/p fall in 2016 presents for evaluation of numbness in bilateral feet with occasional stinging sensations. Symptoms have been present for over 10 years but have been worsening in the past few years. It is disrupting his sleep. He has a family history of similar neuropathic symptoms. Patient has been weaning of nortriptyline and started on Requip 2 weeks ago. He has not had any benefit from the Requip. His exam is significant for diminished vibration sensation in lower extremity, increased pinprick and temperature perception in the feet, asymmetric reflexes (relative hyperreflexia in the left upper extremity) and difficult with tandem gait. Based on the patient's history and exam, the concern at this point would be for a distal, small fiber predominant polyneuropathy with difficulty with balance. It may have a hereditary component given that his brothers have similar symptoms. There is also concern for a possible restless leg syndrome given symptoms of urgency to move his legs at night. PLAN/RECOMMENDATIONS: 1. Labs: A1C, B12, MMA, Folate, Monoclonal studies, GENESIS, [place], Lambda, Ferritin and Celiac screening. 2. Medications: Stop Requip (denies efficacy) and Nortriptyline (was already being weaned off). Start on Gabapentin 300 mg QHS (dual indication- polyneuropathy AND RLS). Will increase to 300 mg TID over the next 3 weeks. 3. Consult to physical therapy: Neuromuscular gait retraining and balance management. 4. When available, results of the above investigations and possible further recommendations will be communicated to the patient via telephone/[employer]. Patient to call office if not contacted after expected testing turnaround time. 5. Follow Up: 3 months To aid with communication, patients (and primary care physicians) can sign up for [employer] (or [employer]), which allows online appointment scheduling, transmission of labs results and chart notes, and secure email communication. To establish either account, visit [email or web address]. Asiya Osei MD Neuromuscular Medicine (NM) Fellow In the service of Dr. Yehuda Lainez (NM Staff) [facility] STAFF: TEACHING PHYSICIAN NOTE OF PERSONAL INVOLVEMENT IN CARE INCLUDING MEDICAL DECISION MAKING I have reviewed the clinical details obtained and documented by Dr. Osei and I have participated in the ny components, including pertinent aspects of the history and physical examination. I have discussed the case and management of the patient's care with Dr. Osei. I essentially agree with the assessment and plan as documented above. Edits to the note are indicated by italics. The duration of this appointment visit was 75 minutes of collective xfue-mg-olne time with the patient. At least 50% of this time was spent in counseling, explanation of diagnosis, planning of further management, and coordination of care. This note was partially created using voice recognition software and is inherently subject to errors including those of syntax and sound-alike substitutions which may escape proofreading. In such instances, original meaning may be extrapolated by contextual derivation. Yehuda Lainez MD Staff, Neuromuscular Center [facility] [place] Electronically signed July 10, 2017 5:09 AM This note was created using voice recognition software and is subject to errors including those of syntax which may escape proofreading. Referring provider: Abhinav Sam MD [address] [facility] [address] Primary care provider: Betsey Lares Jr, MD [address] [address] [address] BRAIN WO IVCON Observed: 07/04/2017 Status: F Source: [place] 11:16 AM [facility] [place] REPOSITORY * * *Final Report* * * DATE OF EXAM: Jul 04 2017 11:16AM [facility] [place] CT BRAIN WO IVCON / PROCEDURE REASON: Hereditary and idiopathic neuropathy, unspecified * * * * Physician Interpretation * * * * EXAMINATION: CT BRAIN WO IVCON HISTORY: Hereditary and idiopathic neuropathy. TECHNIQUE: Serial axial images without IV were obtained from the vertex to the foramen magnum. MQ: [id number]_[id number] CT Dose-Length Product (DLP): 849 mGy*cm CT Dose Reduction Employed: No dose reduction techniques were required COMPARISON: None. RESULT: Post-operative change: None. Acute change: No evidence of an acute infarct or other acute parenchymal process. Hemorrhage: No evidence of acute intracranial hemorrhage. Mass Lesion / Mass Effect: There is no evidence of an intracranial mass or extraaxial fluid collection. No significant mass effect. Chronic change: None apparent. Left frontal craniotomy is seen. Parenchyma: There is no significant volume loss. The brain parenchyma is otherwise within normal limits for age. Ventricles: The ventricles are within normal limits of size and configuration for age. Paranasal sinuses and skull base: The visualized paranasal sinuses are grossly clear. The skull base and imaged soft tissues are unremarkable. IMPRESSION: Left parietal craniotomy. No CT evidence of acute intracranial abnormality. Project Management Professor: MILLIE Transcribe Date/Time: Jul 04 2017 11:32A Dictated by : RUCHI DUMONT MD This examination was interpreted and the report reviewed and electronically signed by: RUCHI DUMONT MD on Jul 04 2017 11:34AM EST [id number] PROGRESS Observed: 07/04/2017 Status: COMPLETED Source: [place] 11:09 AM [facility] REPOSITORY HNO ID: [id number] Author: NOBLE Gauthier (Ct) Service: Radiology Author Type: Clinical Shipping Weigher Type: Progress Notes Filed: 07/04/2017 11:14 AM Note Text: Radiology Service Progress Note PATIENT NAME: Jaime Ann DATE OF SERVICE: July 04, 2017 TIME: 11:09 AM PATIENT IDENTITY VERIFICATION COMPLETED USING TWO (2) METHODS: Patient confirmed name verbally and ID band matches.. PATIENT GENDER DATA: Male PATIENT RELEVANT IMPLANT DATA REVIEWED: Yes RADIOLOGY DEPARTMENT: CT; Exam(s) Completed: Brain PERIPHERAL IV DATA: Not applicable SIGNED BY: NOBLE Gauthier July 04, 2017 11:09 AM [facility] Observed: 07/04/2017 Status: COMPLETED Source: [place] 12:00 AM [facility] REPOSITORY Letter Text [facility] Abhinav Sam M.D. Department Of Movement Disorders/[place] [address] Office: [phone] July 04, 2017 [facility]#: [id number] Dear Jaime Ann Your Brain CT scan showed no new changes and no hemorrhage in brain. Thank you for inviting me to participate in your neurologic care. It was a pleasure meeting you. Sincerely, Abhinav Sam M.D. Enclosure: HISTORY PHYSICAL Observed: 06/19/2017 Status: COMPLETED Source: [place] 10:56 AM [facility] REPOSITORY HNO ID: [id number] Author: Abhinav Sam Service: (none) Author Type: Physician Type: HANDP Filed: 06/25/2017 10:05 AM Note Text: [facility] Outpatient History and Physical Referring provider: Lonny Barnett MD [address] [place] [address] HPI: Mr. Ann is a 76 year old right-handed male with a history of CHF, CLL, and peripheral neuropathy presenting for evaluation of balance problems/ ataxia. He reports that his balance problems started roughly around summer 2015. Around this time he had his heart stop from arrythmia, collapsed and hit his head on the concrete, and later wasn't acting right so saw Neurology who found brain bleed which was evacuated at [facility]. He reports since that time his walking/ balance have been the same. With his walking he notes that he sometimes leans to the side. Its not slowed or shuffling or leaning forward. He also drags his feet a bit so he trips over small things. He has had other falls hitting his head after slipping on the ice and mechanical fall over stoop down stairs. No fractures or LOC, did see stars. His falls all occurred in situations where balance is stressed- up on miriam/ ladders/ ice ect. He has fallen 2x in the last month. Has peripheral neuropathy in bilateral lower extremities just in feet, his brother and dad also have neuropathy. No clear etiology per patient Mother had a stroke. His brother has also had strokes. No other family history of neurological disorders. Non motor parkinsonism symptoms Loss of sense of smell: denies Hypomimia: denies Hypophonia: hoarseness, lots of voice clearing Neuropsychiatric symptoms; Depress mood/anxiety: denies Impaired Memory/Cognitive: trouble with names of people at work but not friends or family, not missing appointments/ bills, denies getting lost around Hallucination: denies Impulse Control Problems: denies Sleep disorders; Sleep problem: up to 2-3x per night to urinate REM behavioral disorder (RBD): denies Restless leg syndrome (RLS): denies Autonomic symptoms; Bowel/bladder control: denies Constipation: denies Sialorrhea: denies Swallowing: denies Orthostatic hypotension symptoms: yes PAST MEDICAL HISTORY Diagnosis Date - Chronic lymphocytic leukemia (HCC) - HTN (hypertension) - Liver cyst - Non-ischemic cardiomyopathy (HCC) - Peripheral neuropathy - Prostate cancer (HCC) s/p external radiation. no resection - Splenic artery aneurysm (HCC) - Subdural hematoma (HCC) summer 2015, after heart stopped and fell, s/p evacuation - Ventricular tachycardia (HCC) in 1983 and 2015 PAST SURGICAL HISTORY Procedure Laterality Date - ARTERIAL EMBOLIZATION, NON-HEMORRHAGE/TUMOR - TEACHING MUSIC LESSONS ICD (ICDCRT) 09/2015 - PAST SURGICAL HISTORY OF Right CMC arthroplasty - PAST SURGICAL HISTORY OF percutaneous splenic artery aneurysm repair Medications: See update medication list below. Current Outpatient Prescriptions: carvedilol (COREG) 25 mg tablet Take 1 tablet by mouth twice daily. atorvastatin (LIPITOR) 20 mg tablet TAKE 1 TABLET BY MOUTH ONCE DAILY. sacubitril-valsartan (ENTRESTO) 24-26 mg tablet Take 1 tablet by mouth twice daily. aspirin 81 mg chewable tablet Take 1 tablet by mouth every 48 hours. CHOLECALCIFEROL, VITAMIN D3, (VITAMIN D3 ORAL) Take 1,000 Units by mouth once daily. oxybutynin ER (DITROPAN XL) 10 mg 24 hr tablet Take 10 mg by mouth once daily. Coenzyme Q10 (CO Q-10) 400 mg cap Take 1 capsule by mouth once daily. nortriptyline (PAMELOR) 75 mg capsule Take 75 mg by mouth twice daily. DAILY MULTI-VITAMIN ORAL Take 1 tablet by mouth once daily. cyqxsuyxqyu-W7-eciumbphv serr (OSTEO BI-FLEX, 5-LOXIN,) 1,500-400-100 mg-unit-mg tab Take 1 tablet by mouth once daily. No current facility-administered medications for this visit. Allergies: See updated allergies documented below. 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 HEENT: Negative for frequent or significant headaches., No changes in hearing or vision NECK: + neck pain and stiffness after recent fall RESPIRATORY: Negative for cough, wheezing or shortness of breath. CARDIOVASCULAR: Negative for chest pain, leg swelling or palpitations. GI: Negative for abdominal discomfort : No history of dysuria or frequency or incontinence MUSCULOSKELETAL: Notes some muscular pain from recent fall SKIN: Negative for lesions, rash, and itching. NEURO: ?As per HPI Vital Signs: BP 152/66 Pulse 60 Resp 16 Ht 177.8 cm (5' 10) Wt 88.5 kg (195 lb) BMI 27.98 kg/m2 General Medical Exam: General: Well appearing, comfortable. Eyes/ENT: see cranial nerve examination. Neck: Full range of motion without tenderness. Respiratory: Clear to auscultation, good air entry bilaterally. Cardiac: Regular rate and rhythm Abdomen: Soft, non-tender, non-distended abdomen. Extremities: No deformities, edema, or skin discoloration Neurologic Exam: Mental Status: orientation to time, place, person Speech is not dysarthric. Cranial nerves: Pupils equal round and reactive to light. EOMI. No nystagmus. No ptosis. Normal facial sensation. Normal facial symmetry and movements. Decreased hearing to finger rubs bilaterally but able to hear hand rubs. Normal palatal movement. Normal shoulder shrug and head rotation. Normal tongue strength and range of motion, no deviation or fasciculation. Motor: No atrophy, fasciculations or abnormal movements. No pronator drift. Tone is normal. Power is 5/5 throughout. Sensation: Normal and symmetric perception of light touch. Symmetric decrease in pinprick to level of elbow and in lower extremities to level of knees, Vibration cannot feel until level of knees bilaterally, reports decreased cold sensation in bilateral feet, proprioception decreased in bilateral feet Reflexes: 1+ reflexes throughout, without vertical spread. Neither Klein's nor Tromner's signs are present. No crossed adductors. Plantar responses are mute. No clonus. Coordination: Normal finger-to- nose-finger. Intact rapid alternating movements bilaterally. Able to rise from a chair without using arms. Gait: Gait wide based but stable. Arm swing normal. Tandem gait intact with side-stepping. Other: Pull test negative. Rhomberg with significant swaying and side step. Prior Records: Saw Neurology in [place] found subdural hematoma s/p evacuation but balance/ walking never improved Impression: Mr. Ann is a 76 year-old male with CLL, CHF s/p ICD, peripheral neuropathy of unclear etiology, and ?subdural hematoma s/p evacuation presenting for 2 years of balance difficulty with falls and gait changes. His exam is notable for decreased sensation in multiple modalities in distal extremities, wide based gait, sway on Rhomberg and tandem gait with side-stepping. Overall clinical picture concerning for multifactorial gait/ balance disturbance from PN and possible recurrent subdural or NPH Plan: -CTH for evaluate for recurrent subdural or NPH -referral to neuromuscular for PN work-up Rica Garza MD Adult Neurology PGY-2 [id number] Staff Note: I reviewed the history and physical obtained and documented by the resident and I personally participated in the ny components. I agree with impression and plan. Other possibility is Nortriptyline associated side effects causing fall. We will wean off this medication. For RLS symptoms initiate Requip. Nortriptyline 75 mg Week 1: 1/2 twice daily Week 2: 1/2 tab at night Week 3: Stop Requip 0.25 mg at bed time Abhinav Sam MD CT HEAD OR BRAIN W/O Observed: 06/15/2017 Status: F Source: [facility] CONTRAST 1:42 PM [facility] REPOSITORY ORIGINAL Head CT 06/15/2017 1:47 PM INDICATION: INJURY COMPARISON: 09 September 2015 TECHNIQUE: Routine non-contrast head CT. This exam was performed according to our departmental dose optimization program, and includes the following measures where applicable: automated exposure control, adjustment of the mAs and/or kVp accord ing to patient size and/or exam, and an iterative reconstruction algorithm. FINDINGS: The ventricles and sulci are normal in size and configuration. There is no shift of midline structures. There are no abnormal intra or extra-axial fluid collections. There is mild irregular de creased attenuation in the white matter of the quiñones radiata and centrum semiovale. [place]-white matter differentiation is maintained. The paranasal sinuses and mastoid air cells are clear. The calvaria and the bones of the base of the skull are intact. Examination was performed within 24 hours of presentation to the hospital. IMPRESSION: Volume loss and white matter changes; no acute findings. Interpreted By: Venkata Alexander MD Preliminary Report By: Venkata Alexander MD Electronically Signed By: Venkata Alexander MD Dictated Date: 06/15/2017 1:48:34 PM Prelim Date: 06/15/2017 1:48:34 PM Sign Date: 06/15/2017 1:49:34 PM OBSOLETE Observed: 06/11/2017 Status: COMPLETED Source: [place] 12:00 AM [facility] REPOSITORY [facility] JAIME ANN ([id number]) 1940 M Date Time Provider Department 06/11/17 LONNY BARNETT [facility] During your visit today, we recorded the following information about you: Allergies As of Date: 06/11/2017 Noted Allergy Reaction LISINOPRIL 07/04/2016 3 - Cough Date Reviewed: 05/29/2017 Reviewed by: Michelle Zamarripa - Fully Assessed Reason for Visit: Refill Request [94] Order(s):atorvastatin (LIPITOR) 20 mg tabletTAKE 1 TABLET BY MOUTH ONCE DAILY.Disp: 30 tabletRfl: 11 Prescriptions as of 06/11/2017 Sig: ATORVASTATIN 20 MG TABLET TAKE 1 TABLET BY MOUTH ONCE D* SACUBITRIL 24 MG-VALSARTAN 26* Take 1 tablet by mouth twice * ASPIRIN 81 MG CHEWABLE TABLET Take 1 tablet by mouth every * CARVEDILOL 25 MG TABLET Take 1 tablet by mouth twice * VITAMIN D3 ORAL Take by mouth once daily. OXYBUTYNIN CHLORIDE ER 10 MG * Take 10 mg by mouth once percy* COENZYME Q10 400 MG CAPSULE Take 1 capsule by mouth once * NORTRIPTYLINE 75 MG CAPSULE Take 75 mg by mouth twice alyson* DAILY MULTI-VITAMIN ORAL Take 1 tablet by mouth once d* GLUCOSAMINE MSD-R2-CSYATAFUM * Take 1 tablet by mouth once d* Problem List As Of Date 06/11/2017 Noted Resolved Left bundle branch block [I44.7] INVALID FOR* Priority: C Hypertension [I10] INVALID FOR*10/06/2016 More... Near syncope [R55] INVALID FOR* Hx of ventricular tachycardia [Z86.79] INVALID FOR* Splenic artery aneurysm (HCC) [I72.8] INVALID FOR* Cellulitis due to MRSA [L03.90, B95.62] INVALID FOR* Syncope [R55] INVALID FOR* Priority: A More... SUMMARY INVALID FOR* Priority: Mild More... 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 Chronic systolic heart failure (HCC) [I50.22] INVALID FOR* Biventricular ICD (implantable cardioverter-def*INVALID FOR* Renal insufficiency [N28.9] INVALID FOR* Carotid stenosis [I65.29] Malignant neoplasm of left kidney, except renal*INVALID FOR* Essential hypertension [I10] INVALID FOR* Prescriptions ordered this encounter Disp Refills Start End ATORVASTATIN 20 MG TABLET 30 t* 11 06/12/2017 Sig: TAKE 1 TABLET BY MOUTH ONCE DAILY. Medications Discontinued During This Encounter atorvastatin (LIPITOR) 20 mg tablet 30 t* 6 11/16/2016 06/12/2017 Route: ORAL Sig: Take 1 tablet by mouth once daily. Disc: Reason for discontinue is not on file. Encounter Status:Closed by LONNY BARNETT MD on 06/12/17 CBC Collected: 05/29/2017 Status: F Source: [place] 12:46 PM [facility] REPOSITORY TYPE CODE TESTS RESULT OUT OF REFERENCE UNITS RANGE LAB WBC 3.70-11.00 k/uL WBC High 13.80 LAB RBC 4.20-6.00 m/uL RBC 4.57 LAB HGB 13.0-17.0 g/dL Hemoglobin 13.5 LAB HCT 39.0-51.0 % Hematocrit 41.0 LAB MCV 80.0-100.0 fL MCV 89.7 LAB MCH 26.0-34.0 pG MCH 29.5 LAB MCHC 30.5-36.0 g/dL MCHC 32.9 LAB RDWCV 11.5-15.0 % RDW-CV 14.6 LAB PLTCT 150-400 k/uL Platelet Count 298 LAB MPV 9.0-12.7 fL MPV 9.6 LAB ABSNUC <0.01 k/uL Absolute nRBC <0.01 Performed By: #### CBC, BMP #### [facility] [address], [place] [address] BASIC METABOLIC PANL Collected: 05/29/2017 Status: F Source: [place] 12:46 PM [facility] REPOSITORY TYPE CODE TESTS RESULT OUT OF REFERENCE UNITS RANGE LAB GLU 74-99 mg/dL High Glucose 106 Result Comment: The [place] Diabetes Association (ADA) provides guidance for cutoff values for fasting glucose and random glucose. The ADA defines fasting as no caloric intake for at least 8 hours. Fas ting plasma glucose results between 100 to 125 mg/dL indicate increased risk for diabetes (prediabetes). Fasting plasma glucose results greater than or equal to 126 mg/dL meet the criteria for diagnosis of diabetes. In the absence of unequivocal hyperglycemia, results should be confirmed by repeat testing. In a patient with classic symptoms of hyperglycemia or hyperglycemic crisis, random plasma glucose results greater than or equal to 200 mg/dL meet the criteria for diagnosis of diabetes. Reference: Standards of Medical Care in Diabetes 2016, [place] [employer] Association. Diabetes Care. 2016.39(Suppl 1). LAB BUN 9-24 mg/dL BUN 21 LAB CRET 0.73-1.22 mg/dL Creatinine 1.16 LAB NA 136-144 mmol/L Sodium 142 LAB K 3.7-5.1 mmol/L Potassium 4.4 LAB CL 97-105 mmol/L Chloride 104 LAB CO2 22-30 mmol/L CO2 27 LAB AGAP 9-18 mmol/L Anion Gap 11 LAB CA 8.5-10.2 mg/dL Calcium, Total 9.0 LAB GFRAA eGFR- Amer. >60 LAB GFRNAA . eGFR-All Other Races >60 Result Comment: eGFR (Estimated GFR) Units of measure: mL/min/1.73 meters squared eGFR is derived from the reexpressed MDRD Study equation using the following parameters: serum creatinine, age, gender and race. The creatinine assay has been calibrated to be traceable to IDMS. An eGFR <60 mL/min/1.73m2 for >3 months is consistent with chronic kidney disease. Refer to KDOQI guidelines for clinical interpretation. In patients with unstable renal function, e.g. those with acute kidney injury, the eGFR may not accurately reflect actual GFR. Performed By: #### CBC, BMP #### [facility] [address] [address] PROGRESS Observed: 05/29/2017 Status: COMPLETED Source: [place] 10:26 AM [facility] REPOSITORY HNO ID: [id number] Author: Lonny Barnett Service: (none) Author Type: Physician Type: Progress Notes Filed: 08/06/2017 9:53 AM Note Text: Heart and Vascular [facility] SECTION OF HEART FAILURE and CARDIAC TRANSPLANT MEDICINE OUTPATIENT VISIT DATE May 29, 2017 OUTPATIENT VISIT TYPE Established Patient PRIMARY CARE PHYSICIAN: Betsey Lares Jr, MD [address] [place] [address] CHIEF COMPLAINT: HF NURSING INTAKE (Patient?s concerns and/or recent hospitalizations/ER visits): Mr. Seth FAROOQ 02/06/17 Reduce Entresto to 24-26 mg twice daily. HISTORY OF PRESENT ILLNESS: HF F/u PAST MEDICAL HISTORY Diagnosis Date - Carotid stenosis - Chronic lymphocytic leukemia (HCC) - HTN (hypertension) - Liver cyst - Non-ischemic cardiomyopathy (HCC) - Peripheral neuropathy (HCC) - Prostate cancer (HCC) s/p external radiation. no resection - Splenic artery aneurysm (HCC) - Ventricular tachycardia (HCC) in 1983 and 2015 PAST SURGICAL HISTORY Procedure Laterality Date - ARTERIAL EMBOLIZATION, NON-HEMORRHAGE/TUMOR - TEACHING MUSIC LESSONS ICD (ICDCRT) 09/2015 - PAST SURGICAL HISTORY OF Right CMC arthroplasty - PAST SURGICAL HISTORY OF percutaneous splenic artery aneurysm repair SOCIAL HISTORY Social History Substance Use Topics - Smoking status: Never Smoker - Smokeless tobacco: Never Used - Alcohol use Yes Comment: rare use FAMILY HISTORY Problem Relation Age of Onset - Stroke Mother - Hypertension Mother - Diabetes Mother - Diabetes Father - Ischemic Heart Disease Father ALLERGIES: ALLERGIES Allergen Reactions - Lisinopril Cough CURRENT MEDICATIONS: sacubitril-valsartan (ENTRESTO) 24-26 mg tablet Take 1 tablet by mouth twice daily. aspirin 81 mg chewable tablet Take 1 tablet by mouth every 48 hours. atorvastatin (LIPITOR) 20 mg tablet Take 1 tablet by mouth once daily. carvedilol (COREG) 25 mg tablet Take 1 tablet by mouth twice daily. CHOLECALCIFEROL, VITAMIN D3, (VITAMIN D3 ORAL) Take by mouth once daily. oxybutynin ER (DITROPAN XL) 10 mg 24 hr tablet Take 10 mg by mouth once daily. Coenzyme Q10 (CO Q-10) 400 mg cap Take 1 capsule by mouth once daily. nortriptyline (PAMELOR) 75 mg capsule Take 75 mg by mouth twice daily. DAILY MULTI-VITAMIN ORAL Take 1 tablet by mouth once daily. [id number]-Y2-hcxhnobcr serr (OSTEO BI-FLEX, 5-LOXIN,) 1,500-400-100 mg-unit-mg tab Take 1 tablet by mouth once daily. REVIEW OF SYSTEMS: See HPI. PHYSICAL EXAMINATION: BP 148/64 Pulse 60 Ht 177.8 cm (5' 10) Wt 91.2 kg (201 lb) SpO2 98% BMI 28.84 kg/m2 which is 1?lb more than last visit. General: no distress, obese, accompanied by family Skin: No clubbing, no cyanosis. Eyes: Extra ocular movements intact, Normal conjunctiva, Non-icteric sclerae Neck: Neck veins are not distended, no carotid bruits Lungs: Chest clear to auscultation Heart: Rhythm: regular rate and rhythm, Rate: normal, no murmur Abdomen: Distended, small hematoma right mid lateral quadrant. No HSM, normal bowel sounds Extremities:No edema Neuro: Ambulating without assistance but cannot tandem walk Component Latest Ref Rng AND Units 08/11/2016 08/17/2016 11/20/2016 02/06/2017 Glucose 74 - 99 mg/dL 128 (H) 91 70 (L) 86 BUN 9 - 24 mg/dL 20 22 22 35 (H) Creatinine 0.73 - 1.22 mg/dL 0.98 1.09 1.16 1.33 (H) Sodium 136 - 144 mmol/L 140 143 144 140 Potassium 3.7 - 5.1 mmol/L 3.8 4.2 4.4 4.4 Chloride 97 - 105 mmol/L 100 104 106 (H) 101 CO2 22 - 30 mmol/L 25 27 26 29 Anion Gap 9 - 18 mmol/L 15 12 12 10 Calcium 8.5 - 10.2 mg/dL 8.7 8.8 9.3 9.0 eGFR- >60 >60 >60 >60 eGFR-All Other Races . >60 >60 >60 52 WBC 3.70 - 11.00 k/uL 12.61 (H) RBC 4.20 - 6.00 m/uL 4.40 Hemoglobin 13.0 - 17.0 g/dL 13.0 Hematocrit 39.0 - 51.0 % 40.1 MCV 80.0 - 100.0 fL 91.1 MCH 26.0 - 34.0 pG 29.5 MCHC 30.5 - 36.0 g/dL 32.4 RDW-CV 11.5 - 15.0 % 15.8 (H) Platelet Count 150 - 400 k/uL 301 MPV 9.0 - 12.7 fL 10.5 Absolute nRBC 0.00 k/uL 0.00 NT Pro BNP <450 pg/mL 1096 (H) 579 (H) ? CARDIOVASCULAR MEDICINE TESTING: Echocardiogram 07/04/16 CONCLUSIONS: - The left ventricle is mildly dilated. There is LVH, LVEF = 34 ? 5% (2D biplane) (Visually EF appears <35%). - The right ventricle is normal in size. Right ventricular systolic function is normal. - SUZAN. (2+ - 3+) mitral valve regurgitation. Regurgitant orifice area ?(PISA) is 0.21 cm?. - Exam was compared with the prior echocardiographic exam performed on 03/23/2016. MR appears to have increased. ?? ICD check 05/03/17: PRESENTING EGM: /BIV pacing BATTERY STATUS: Normal and shows no significant depletion. COUNTERS SINCE 02/06/17 ATRIAL ARRHYTHMIAS: There have been 0 triggered episodes of atrial high ratesBi VENTRICULAR ARRHYTHMIAS: There have been no ventricular detections. LEAD MEASUREMENTS: Sensing is appropriate. Review of the lead impedance trends are normal. OTHER DIAGNOSTICS: BiV pacing 99.7 %. ?FOLLOW UP: Continue with 3 month remotes and yearly in-clinic visits. Zoe Henao RN ? IMPRESSION Mr. Ann is a 76 year old male with a history of hypertension, LBBB, VT with syncope and non ischemic cardiomyopathy s/p BiV ICD in September 2015 when he was evaluated for heart failure. His admission in September of 2015 was associated with a drop in EF from 54% to 20% within a year in the setting of a syncopal event that was felt to be VT/VF. The etiology of this decline in EF is uncertain and may be due to tachycardia mediated due to VT, LBBB induced or viral/idiopathic. His coronary angiogram did not show obstructive coronary disease. Unfortunately, since September he developed a subdural hematoma, likely during the syncopal event, which required surgical drainage in early November 2015. He was doing better and at last visit I increased his Entresto. ?Then I reduced it again in January because he appeared dehydrated and fell after tripping over some stuff around the house. Currently feels better and appears euvolemic but remains unsteady with his gait. Cannot tandem walk. I do not want to change any blood pressure medication until he is more stable walking and I worry that he may have a cerebellar problem which cannot be evaluated because of his PPM/ICD. Since he did have one presyncopal event and has had ventricular arrythmia I will recheck his device today NYHA class II, Stage C. ?? ?I spent 30?minutes in this visit, with more than 50% of the time devoted to patient counseling. ?? PLAN AND RECOMMENDATIONS: 1. Continue current medications 2. Consult neuro 3. Device check today 4. Labs Lonny Barnett MD May 29, 2017 11:25 AM ?? CC MD Yoshi Bender Jr, MD ? Addendum: 1. Labs Component Latest Ref Rng AND Units 02/06/2017 05/29/2017 Glucose 74 - 99 mg/dL 86 106 (H) BUN 9 - 24 mg/dL 35 (H) 21 Creatinine 0.73 - 1.22 mg/dL 1.33 (H) 1.16 Sodium 136 - 144 mmol/L 140 142 Potassium 3.7 - 5.1 mmol/L 4.4 4.4 Chloride 97 - 105 mmol/L 101 104 CO2 22 - 30 mmol/L 29 27 Anion Gap 9 - 18 mmol/L 10 11 Calcium 8.5 - 10.2 mg/dL 9.0 9.0 eGFR- >60 >60 eGFR-All Other Races . 52 >60 WBC 3.70 - 11.00 k/uL 12.61 (H) RBC 4.20 - 6.00 m/uL 4.40 Hemoglobin 13.0 - 17.0 g/dL 13.0 Hematocrit 39.0 - 51.0 % 40.1 MCV 80.0 - 100.0 fL 91.1 MCH 26.0 - 34.0 pG 29.5 MCHC 30.5 - 36.0 g/dL 32.4 RDW-CV 11.5 - 15.0 % 15.8 (H) Platelet Count 150 - 400 k/uL 301 MPV 9.0 - 12.7 fL 10.5 Absolute nRBC 0.00 k/uL 0.00 2. Device check today: UNDERLYING RHYTHM: SR ?BATTERY STATUS: Normal and shows no significant depletion. COUNTERS SINCE 02/06/17 ATRIAL ARRHYTHMIAS: 0 AF. NO blood thinners VENTRICULAR ARRHYTHMIAS: There have been no ventricular detections since the last evaluation. LEAD MEASUREMENTS: Capture and sensing are appropriate. The pacing outputs maintain safety margin. Review of the lead impedance trends are normal. IMPLANT SITE/ SYMPTOMS: The incision and pocket are painfree (0/10), well healed and without signs of erosion or infection. No arm swelling, syncope, pre-syncope or device related pocket stimulation. OTHER DIAGNOSTICS: BIV pacing 99%. PROGRAMMING CHANGES MADE TODAY: NO changes made today FOLLOW UP: Q 3 month remotes. Will establish with DR. Katz in [place] Angel Manning RN 3. 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 It may have a hereditary component given that his brothers have similar symptoms. There is also concern for a possible restless leg syndrome given symptoms of urgency to move his legs at night. ? PLAN/RECOMMENDATIONS: 1. Labs: A1C, B12, MMA, Folate, Monoclonal studies, GENESIS, Crandon, Lambda, Ferritin and Celiac screening. 2. Medications: Stop Requip (denies efficacy) and Nortriptyline (was already being weaned off). Start on Gabapentin 300 mg QHS (dual indication- polyneuropathy AND RLS). Will increase to 300 mg TID over the next 3 weeks. Consult to physical therapy: Neuromuscular gait retraining and balance management. CNOV Observed: 05/29/2017 Status: COMPLETED Source: [place] 10:15 AM [facility] REPOSITORY Office Visit (TREV CHF ALEXI) JAIME ANN ([id number]) 1940 M Date Time Provider Department 05/29/17 10:15 AM LONNY BARNETT CHF ALEXI During your visit today, we recorded the following information about you: Pulse Blood pressure Weight Height 60/minute 148/64 91.2 kg 1.778 m Lonny Barnett MD 08/06/2017 9:53 AM Addendum Heart and Vascular [facility] SECTION OF HEART FAILURE and CARDIAC TRANSPLANT MEDICINE OUTPATIENT VISIT DATE May 29, 2017 OUTPATIENT VISIT TYPE Established Patient PRIMARY CARE PHYSICIAN: Betsey Lares Jr, MD [address] [place] [address] CHIEF COMPLAINT: HF NURSING INTAKE (Patient?s concerns and/or recent hospitalizations/ER visits): Mr. Seth FAROOQ 02/06/17 Reduce Entresto to 24-26 mg twice daily. HISTORY OF PRESENT ILLNESS: HF F/u PAST MEDICAL HISTORY Diagnosis Date - Carotid stenosis - Chronic lymphocytic leukemia (HCC) - HTN (hypertension) - Liver cyst - Non-ischemic cardiomyopathy (HCC) - Peripheral neuropathy (HCC) - Prostate cancer (HCC) s/p external radiation. no resection - Splenic artery aneurysm (HCC) - Ventricular tachycardia (HCC) in 1983 and 2015 PAST SURGICAL HISTORY Procedure Laterality Date - ARTERIAL EMBOLIZATION, NON-HEMORRHAGE/TUMOR - TEACHING MUSIC LESSONS ICD (ICDCRT) 09/2015 - PAST SURGICAL HISTORY OF Right CMC arthroplasty - PAST SURGICAL HISTORY OF percutaneous splenic artery aneurysm repair SOCIAL HISTORY Social History Substance Use Topics - Smoking status: Never Smoker - Smokeless tobacco: Never Used - Alcohol use Yes Comment: rare use FAMILY HISTORY Problem Relation Age of Onset - Stroke Mother - Hypertension Mother - Diabetes Mother - Diabetes Father - Ischemic Heart Disease Father ALLERGIES: ALLERGIES Allergen Reactions - Lisinopril Cough CURRENT MEDICATIONS: sacubitril-valsartan (ENTRESTO) 24-26 mg tablet Take 1 tablet by mouth twice daily. aspirin 81 mg chewable tablet Take 1 tablet by mouth every 48 hours. atorvastatin (LIPITOR) 20 mg tablet Take 1 tablet by mouth once daily. carvedilol (COREG) 25 mg tablet Take 1 tablet by mouth twice daily. CHOLECALCIFEROL, VITAMIN D3, (VITAMIN D3 ORAL) Take by mouth once daily. oxybutynin ER (DITROPAN XL) 10 mg 24 hr tablet Take 10 mg by mouth once daily. Coenzyme Q10 (CO Q-10) 400 mg cap Take 1 capsule by mouth once daily. nortriptyline (PAMELOR) 75 mg capsule Take 75 mg by mouth twice daily. DAILY MULTI-VITAMIN ORAL Take 1 tablet by mouth once daily. nvsngmhphhe-Z0-xybnwptls serr (OSTEO BI-FLEX, 5-LOXIN,) 1,500-400-100 mg-unit-mg tab Take 1 tablet by mouth once daily. REVIEW OF SYSTEMS: See HPI. PHYSICAL EXAMINATION: BP 148/64 Pulse 60 Ht 177.8 cm (5' 10ANDquot;) Wt 91.2 kg (201 lb) SpO2 98% BMI 28.84 kg/m2 which is 1?lb more than last visit. General: no distress, obese, accompanied by family Skin: No clubbing, no cyanosis. Eyes: Extra ocular movements intact, Normal conjunctiva, Non- icteric sclerae Neck: Neck veins are not distended, no carotid bruits Lungs: Chest clear to auscultation Heart: Rhythm: regular rate and rhythm, Rate: normal, no murmur Abdomen: Distended, small hematoma right mid lateral quadrant. No HSM, normal bowel sounds Extremities:No edema Neuro: Ambulating without assistance but cannot tandem walk Component Latest Ref Rng ANDamp; Units 08/11/2016 08/17/2016 11/20/2016 02/06/2017 Glucose 74 - 99 mg/dL 128 (H) 91 70 (L) 86 BUN 9 - 24 mg/dL 20 22 22 35 (H) Creatinine 0.73 - 1.22 mg/dL 0.98 1.09 1.16 1.33 (H) Sodium 136 - 144 mmol/L 140 143 144 140 Potassium 3.7 - 5.1 mmol/L 3.8 4.2 4.4 4.4 Chloride 97 - 105 mmol/L 100 104 106 (H) 101 CO2 22 - 30 mmol/L 25 27 26 29 Anion Gap 9 - 18 mmol/L 15 12 12 10 Calcium 8.5 - 10.2 mg/dL 8.7 8.8 9.3 9.0 eGFR- ANDgt;60 ANDgt;60 ANDgt;60 ANDgt;60 eGFR-All Other Races . ANDgt;60 ANDgt;60 ANDgt;60 52 WBC 3.70 - 11.00 k/uL 12.61 (H) RBC 4.20 - 6.00 m/uL 4.40 Hemoglobin 13.0 - 17.0 g/dL 13.0 Hematocrit 39.0 - 51.0 % 40.1 MCV 80.0 - 100.0 fL 91.1 MCH 26.0 - 34.0 pG 29.5 MCHC 30.5 - 36.0 g/dL 32.4 RDW-CV 11.5 - 15.0 % 15.8 (H) Platelet Count 150 - 400 k/uL 301 MPV 9.0 - 12.7 fL 10.5 Absolute nRBC 0.00 k/uL 0.00 NT Pro BNP ANDlt;450 pg/mL 1096 (H) 579 (H) ? CARDIOVASCULAR MEDICINE TESTING: Echocardiogram 07/04/16 CONCLUSIONS: - The left ventricle is mildly dilated. There is LVH, LVEF = 34 ? 5% (2D biplane) (Visually EF appears ANDlt;35%). - The right ventricle is normal in size. Right ventricular systolic function is normal. - SUZAN. (2+ - 3+) mitral valve regurgitation. Regurgitant orifice area ?(PISA) is 0.21 cm?. - Exam was compared with the prior echocardiographic exam performed on 03/23/2016. MR appears to have increased. ?? ICD check 05/03/17: PRESENTING EGM: /BIV pacing BATTERY STATUS: Normal and shows no significant depletion. COUNTERS SINCE 02/06/17 ATRIAL ARRHYTHMIAS: There have been 0 triggered episodes of atrial high ratesBi VENTRICULAR ARRHYTHMIAS: There have been no ventricular detections. LEAD MEASUREMENTS: Sensing is appropriate. Review of the lead impedance trends are normal. OTHER DIAGNOSTICS: BiV pacing 99.7 %. ?FOLLOW UP: Continue with 3 month remotes and yearly in-clinic visits. Zoe Henao RN ? IMPRESSION Mr. Ann is a 76 year old male with a history of hypertension, LBBB, VT with syncope and non ischemic cardiomyopathy s/p BiV ICD in September 2015 when he was evaluated for heart failure. His admission in September of 2015 was associated with a drop in EF from 54% to 20% within a year in the setting of a syncopal event that was felt to be VT/VF. The etiology of this decline in EF is uncertain and may be due to tachycardia mediated due to VT, LBBB induced or viral/idiopathic. His coronary angiogram did not show obstructive coronary disease. Unfortunately, since September he developed a subdural hematoma, likely during the syncopal event, which required surgical drainage in early November 2015. He was doing better and at last visit I increased his Entresto. ?Then I reduced it again in January because he appeared dehydrated and fell after tripping over some stuff around the house. Currently feels better and appears euvolemic but remains unsteady with his gait. Cannot tandem walk. I do not want to change any blood pressure medication until he is more stable walking and I worry that he may have a cerebellar problem which cannot be evaluated because of his PPM/ICD. Since he did have one presyncopal event and has had ventricular arrythmia I will recheck his device today NYHA class II, Stage C. ?? ?I spent 30?minutes in this visit, with more than 50% of the time devoted to patient counseling. ?? PLAN AND RECOMMENDATIONS: 1. Continue current medications 2. Consult neuro 3. Device check today 4. Labs Lonny Barnett MD May 29, 2017 11:25 AM ?? CC MD Yoshi Bender Jr, MD ? Addendum: 1. Labs Component Latest Ref Rng ANDamp; Units 02/06/2017 05/29/2017 Glucose 74 - 99 mg/dL 86 106 (H) BUN 9 - 24 mg/dL 35 (H) 21 Creatinine 0.73 - 1.22 mg/dL 1.33 (H) 1.16 Sodium 136 - 144 mmol/L 140 142 Potassium 3.7 - 5.1 mmol/L 4.4 4.4 Chloride 97 - 105 mmol/L 101 104 CO2 22 - 30 mmol/L 29 27 Anion Gap 9 - 18 mmol/L 10 11 Calcium 8.5 - 10.2 mg/dL 9.0 9.0 eGFR- ANDgt;60 ANDgt;60 eGFR-All Other Races . 52 ANDgt;60 WBC 3.70 - 11.00 k/uL 12.61 (H) RBC 4.20 - 6.00 m/uL 4.40 Hemoglobin 13.0 - 17.0 g/dL 13.0 Hematocrit 39.0 - 51.0 % 40.1 MCV 80.0 - 100.0 fL 91.1 MCH 26.0 - 34.0 pG 29.5 MCHC 30.5 - 36.0 g/dL 32.4 RDW-CV 11.5 - 15.0 % 15.8 (H) Platelet Count 150 - 400 k/uL 301 MPV 9.0 - 12.7 fL 10.5 Absolute nRBC 0.00 k/uL 0.00 2. Device check today: UNDERLYING RHYTHM: SR ?BATTERY STATUS: Normal and shows no significant depletion. COUNTERS SINCE 02/06/17 ATRIAL ARRHYTHMIAS: 0 AF. NO blood thinners VENTRICULAR ARRHYTHMIAS: There have been no ventricular detections since the last evaluation. LEAD MEASUREMENTS: Capture and sensing are appropriate. The pacing outputs maintain safety margin. Review of the lead impedance trends are normal. IMPLANT SITE/ SYMPTOMS: The incision and pocket are painfree (0/10), well healed and without signs of erosion or infection. No arm swelling, syncope, pre-syncope or device related pocket stimulation. OTHER DIAGNOSTICS: BIV pacing 99%. PROGRAMMING CHANGES MADE TODAY: NO changes made today FOLLOW UP: Q 3 month remotes. Will establish with DR. Katz in [place] Angel Manning RN 3. Neuro Consult Jun 2017: ANDnatashaot;His exam is significant for diminished vibration sensation in lower extremity, increased pinprick and temperature perception in the feet, asymmetric reflexes (relative hyperreflexia in the left upper extremity) and difficult with tandem gait.Based on the patient's history and exam, the concern at this point would be for a distal, small fiber predominant polyneuropathy with difficulty with balance. It may have a hereditary component given that his brothers have similar symptoms. There is also concern for a possible restless leg syndrome given symptoms of urgency to move his legs at night. ? PLAN/RECOMMENDATIONS: 1. Labs: A1C, B12, MMA, Folate, Monoclonal studies, GENESIS, Crandon, Lambda, Ferritin and Celiac screening. 2. Medications: Stop Requip (denies efficacy) and Nortriptyline (was already being weaned off). Start on Gabapentin 300 mg QHS (dual indication- polyneuropathy ANDamp; RLS). Will increase to 300 mg TID over the next 3 weeks. Consult to physical therapy: Neuromuscular gait retraining and balance management.ANDnatashaot; Referring Provider: LONNY BARNETT [[id number]] Allergies As of Date: 05/29/2017 Noted Allergy Reaction LISINOPRIL 07/04/2016 3 - Cough Date Reviewed: 05/29/2017 Reviewed by: Michelle Zamarripa - Fully Assessed Reason for Visit: Follow Up [171] Primary Visit Diagnosis:Chronic systolic CHF (congestive heart failure) ([facility]) [I50.22] Other Visit Diagnoses:LBBB (left bundle branch block) [I44.7] Cardiomyopathy, nonischemic (HCC) [I42.8] VT (ventricular tachycardia) ([facility]) [I47.2] Biventricular ICD (implantable cardioverter-defibrillator) in place [Z95.810] Essential hypertension [I10] Subdural hematoma (HCC) [I62.00] Syncope, unspecified syncope type [R55] Ataxia [R27.0] Prescriptions as of 05/29/2017 Sig: SACUBITRIL 24 MG-VALSARTAN 26* Take 1 tablet by mouth twice * ASPIRIN 81 MG CHEWABLE TABLET Take 1 tablet by mouth every * X ATORVASTATIN 20 MG TABLET Take 1 tablet by mouth once d* X CARVEDILOL 25 MG TABLET Take 1 tablet by mouth twice * VITAMIN D3 ORAL Take 1,000 Units by mouth onc* OXYBUTYNIN CHLORIDE ER 10 MG * Take 10 mg by mouth once percy* COENZYME Q10 400 MG CAPSULE Take 1 capsule by mouth once * DAILY MULTI-VITAMIN ORAL Take 1 tablet by mouth once d* GLUCOSAMINE [id number] * Take 1 tablet by mouth once d* X NORTRIPTYLINE 75 MG CAPSULE Take 75 mg by mouth twice alyson* Problem List As Of Date 05/29/2017 Noted Resolved Left bundle branch block [I44.7] INVALID FOR* Priority: C Hypertension [I10] INVALID FOR*10/06/2016 More... Near syncope [R55] INVALID FOR* Hx of ventricular tachycardia [Z86.79] INVALID FOR* Splenic artery aneurysm (HCC) [I72.8] INVALID FOR* Cellulitis due to MRSA [L03.90, B95.62] INVALID FOR* Syncope [R55] INVALID FOR* Priority: A More... SUMMARY INVALID FOR* Priority: Mild More... 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 Chronic systolic heart failure (HCC) [I50.22] INVALID FOR* Biventricular ICD (implantable cardioverter-def*INVALID FOR* Renal insufficiency [N28.9] INVALID FOR* Carotid stenosis [I65.29] Malignant neoplasm of left kidney, except renal*INVALID FOR* Essential hypertension [I10] INVALID FOR* Encounter Status:Closed by LONNY BARNETT MD on 05/29/17 A1C Collected: 05/04/2017 Status: F Source: [facility] 8:18 AM [facility] REPOSITORY TYPE CODE TESTS RESULT OUT OF RANGE REFERENCE UNITS LAB A1C(LOINC) 4.8-5.9 % High Hgb A1c 6.8 Performed By: #### A1C #### [id number] [place], [place] [address] ALLERGIES ALLERGIES DATE TYPE / CODE NAME / CODE REACTION SEVERITY SOURCE 02/21/2018 Drug No Known Unknown Kaylie Allergy/416 Allergies/[id number] [facility] [id number]([facility] 07/04/2016 DRUG LISINOPRIL COUGH [facility] INGREDI/419 Other [place] [id number](SNOM Repository ED CT) [id number] LISINOPRIL [address] [address]([facility] CT) Repository ENCOUNTERS ENCOUNTERS ADMIT/DISCHARGE ACCOUNT NUMBER ADMITTING ENCOUNTER LOCATION SOURCE CLASS 04/13/2018 [id number] Ambulatory [facility] ding:LAB.FUT Repository URE 03/04/2018/03/04/20 [id number] Ambulatory [address] Repository 02/21/2018 [id number] Ambulatory [facility] Repository 02/21/2018 [id number] Ambulatory [facility] ding:OMD Repository 02/14/2018 [id number] Ambulatory [facility] ding:LAB Repository 02/14/2018/02/15/20 [id number] Ambulatory [address] ding:[facility] Repository 01/23/2018/01/30/20 [id number] Ambulatory [address] Repository 01/23/2018/01/25/20 [id number] Ambulatory [address] Repository 01/23/2018 [id number] Ambulatory [facility] MEDICAL Repository CENTERBuildi ng:[facility] 01/17/2018/01/18/20 [id number] Ambulatory [address] ding:[facility] Repository 01/15/2018/01/16/20 [id number] Ambulatory [address] Repository 12/05/2017/12/13/19 [id number] Ambulatory [address] Repository 12/05/2017/12/06/19 [id number] Ambulatory [address] Repository 11/23/2017/11/27/19 [id number] Ambulatory [address] Repository 11/23/2017/11/24/19 [id number] Ambulatory [address] Repository 11/12/2017/11/21/19 [id number] Ambulatory [address] Repository 11/12/2017/11/13/19 [id number] Ambulatory [address] Repository 11/02/2017 [id number] Ambulatory [facility] ding:LAB.FUT Repository URE 10/29/2017/11/10/19 [id number] Ambulatory [address] Repository 10/29/2017/10/30/19 [id number] Ambulatory [address] Repository 09/20/2017/09/21/19 [id number] Ambulatory [address] Repository 09/18/2017 [id number] Ambulatory [facility] ding:LAB Repository 09/18/2017 [id number] Ambulatory BMSBuilding: [facility] Repository 09/03/2017/09/04/19 [id number] Emergency BBuilding:[facility] [place] [address] [place] [address] Repository 08/23/2017 [id number] Ambulatory BMSBuilding: [facility] Repository 07/19/2017/07/20/19 [id number] Ambulatory [address] Repository 07/19/2017/07/20/19 [id number] Ambulatory [address] MEDICAL Repository CENTERBuildi ng:CAGWS 07/17/2017/07/18/19 [id number] Ambulatory [address] ding:[facility] Repository 07/04/2017/07/09/19 [id number] Ambulatory [address] Repository 07/04/2017/07/10/19 [id number] Ambulatory [address] Repository 07/04/2017/07/09/19 [id number] Ambulatory [address] [place] Repository 06/21/2017/06/21/19 [id number] Ambulatory [address] [place] Repository 06/19/2017/06/25/19 [id number] Ambulatory [address] Repository 06/15/2017/06/15/19 [id number] Emergency BBuilding:PRINCESS Barajas [address] [place] [address] Repository 05/29/2017/05/29/19 [id number] Ambulatory [address] Repository 05/29/2017 [id number] Ambulatory [facility] Repository 05/29/2017/05/29/19 [id number] Ambulatory [address] Repository 05/04/2017/05/04/20 [id number] Ambulatory [address]:[facility] Repository PAYERS PAYERS ENCOUNTER GUARANTOR PAYER SUBSCRIBER SOURCE 04/13/2018 JAIME D Primary JAIME D Kaylie [id number] [place] Insurance:MEDICARE OSWALDDOB: Community [place] olicy Number: [id number] [facility]ingley [facility] [address]Jbl: [id number] Repository Date:2018-04-01 () 04/13/2018 Secondary JAIME D [place] Insurance:MUTUAL OF OSWALDDOB: [facility] Number: [id number] Hospital [id number] Repository Date:2192-61-74ZogsjrWanblee, [place] [address]MF: 04/13/2018 Tertiary NOT GIVENUNK Kaylie Insurance:SELF PAY [facility] Number: Effective Repository Date:2018-04-01 02/21/2018 JAIME D Primary JAIME D [place] [id number] LER[place] Insurance:MEDICARE OSWALDDOB: Community [place], PART A [facility] Number: [id number] Tingley Hospital [address]Ktl: [id number] Repository Date:2003-07-13 () 02/21/2018 Secondary JAIME D Kay[place] Insurance:MUTUAL OF OSWALDDOB: [facility] Number: [id number] Hospital [id number] Repository Date:2144-72-59Pstjzz [place] [address]CV: 02/21/2018 Tertiary NOT GIVENUNK [place] Insurance:SELF PAY [facility] Number: Effective Repository Date:2018-02-21 02/21/2018 JAIME D Primary JAIME D [place] [id number] [place] Insurance:MEDICARE OSWALDDOB: Community [place] A olicy Number: [id number] Tingley Hospital [address]Hwp: [id number] Repository Date:2003-07-13 () 02/21/2018 Secondary JAIME D [place] Insurance:MUTUAL OF OSWALDDOB: [facility] Number: [id number] Hospital [id number] Repository Date:4675-86[place]12[place]lgyxzSe[place], [place] [address]WZ: 02/21/2018 Tertiary NOT GIVENUNK Kaylie Insurance:SELF PAY [facility] Number: Effective Repository Date:2016-08-01 02/14/2018 Jaime [id number] Primary Jaime Kaylie [place] [address] Insurance:MEDICARE OswaldDOB: [place] PART A BPolicy Number: [id number] Hospital 250[address]Vgg: 330 [id number] Repository [phone] () Date:2018-02-14 02/14/2018 Secondary Jaime [place] Insurance:MUTUAL OF OswaldDOB: [facility] Number: [id number] Hospital [id number] Repository Date:4225-24-84DmxaicSeattle, [place] [address]ZD: 02/14/2018 Tertiary NOT GIVENUNK Kaylie Insurance:SELF PAY [facility] Number: Effective Repository Date:2018-02-14 02/14/2018 JAIME D Primary [facility] OSWALDDOB: Insurance:MEDICARE OSWALDDOB: [facility] PART BPolicy Number: [id number] Repository [place] [id number] [place] Date:2018-02-14 - [place], [place] [address]Upn: [phone] [id number] 00751Lih: Name:[facility] [phone] ()Tel: (000) Administrators LLCPO () (WP) [address] [address]Ahhndyrfb, [place] 000-0000 (WP) 96[address]IK: 02/14/2018 Secondary JAIME D [facility] Insurance:MUTUAL OF OSWALDDOB: [facility] Number: [id number] Repository [id number] [place] Date:2018-02-14 [place] 6549-90-25Yren [address]Fxi: ([phone]) Name:[facility] [place] [address] [facility] [place] ()Tel: [phone]: ([phone] 01/23/2018 JAIME D Primary [facility] OSWALDDOB: Insurance:MEDICARE A OSWALDDOB: Health System AND BPolicy Number: [id number] Repository [place] [id number] [place] Date: [address]Rpr: () 01/23/2018 Secondary [facility] Insurance:MUTUAL OF OSWALDDOB: Health [facility] [place] MEDICARE [id number] Repository SUPPLEMENTPolicy Number: [id number] Date: 01/17/2018 JAIME D Primary [facility] OSWALDDOB: Insurance:MEDICARE OSWALDDOB: [facility] PART BPolicy Number: [id number] Repository [place] [id number] [place] Date:2018-01-17 [place] [address]Gnf: [phone] [id number] [id number]: Name:[facility] [phone] ()Tel: (000) Administrators LLCPO () (WP) [address] [address]Zyrzdmojj, [place] 000-0000 (WP) [address]QG: 01/17/2018 Secondary [facility] Insurance:MUTUAL OF OSWALDDOB: [facility] Number: [id number] Repository [id number] [place] Date:2018-01-17 [place] 6868-46-13Ewlh 799[address]Vxk: ([phone]) Name:[facility] [place] [address] [place], [place] ()Tel: [phone]: () [phone] 11/02/2017 Jaime [id number] Primary Jaime Kaylie [place] [address] Insurance:MEDICARE OswaldDOB: Community [place] PART A BPolicy Number: [id number] Hospital 164[address]Jqk: [phone] [id number] Repository [phone] (HP) Date:2017-11-01 11/02/2017 Secondary Jaime Kaylie Insurance:MUTUAL OF OswaldDOB: [facility] Number: [id number] Hospital [id number] Repository Date:6477-87-03Ammvlb [place], [place] [address]VH: 11/02/2017 Tertiary NOT GIVENUNK [place] Insurance:SELF PAY [facility] Number: Effective Repository Date:2017-11-01 09/18/2017 Jaime [id number] Primary Jaime [place] [address] Insurance:MEDICARE OswaldDOB: [facility] PART A BPolicy Number: [id number] Hospital [address]Zux: [id number] Repository [phone] Date:2017-09-18 0-4 () 09/18/2017 Secondary Jaime Kaylie Insurance:MUTUAL OF OswaldDOB: [facility] Number: [id number] Hospital [id number] Repository Date:6569-62-56Vwqfhy Of [place], [place] [address]WH: 09/18/2017 Tertiary NOT GIVENUNK [place] Insurance:SELF PAY [facility] Number: Effective Repository Date:2017-09-18 09/18/2017 Jaime [id number] Primary Jaime [place] [address] Insurance:MEDICARE OswaldDOB: [facility] PART A BPolicy Number: [id number] Hospital [address]Ksb: [phone] [id number] Repository [phone] (HP) Date:2017-09-18 09/18/2017 Secondary Jaime [place] Insurance:MUTUAL OF OswaldDOB: [facility] Number: [id number] Hospital [id number] Repository Date:9438-97-63Jnnuuw Of [place], [place] [address]DH: 09/18/2017 Tertiary NOT GIVENUNK Kay[place] Insurance:SELF PAY [facility] Number: Effective Repository Date:2017-09-18 09/03/2017 JAIME D Primary [facility] OSWALDDOB: Insurance:MEDICARE OSWALDDOB: [facility] PART BPolicy Number: [id number] Repository [place] [id number] [place] Date:2017-09-03 [place], [place] [address]Zol: [id number] 21399Zdv: Name:[facility] [phone] ()Tel: (000) Administrators LLCPO () () [address] [place] [address] 000-0000 (WP) 833[address]CN: 09/03/2017 Secondary [facility] Insurance:MUTUAL OF OSWALDDOB: [facility] Number: [id number] Repository [id number] [place] Date:2017-09-03 [place] 1259-88-99Zlng [address]Aea: ([phone]) Name:CMUTUAL [facility] [place] ()Tel: [phone]) [phone]: (WP) [phone] 08/23/2017 Jaime [id number] Primary Jaime Kaylie [place] [address] Insurance:MEDICARE OswaldDOB: [facility] PART A BPolicy Number: [id number] Hospital [address]Oyy: [id number] Repository [phone] Date:2003-07-13 0-4 (HP) 08/23/2017 Secondary Jaime [place] Insurance:MUTUAL OF OswaldDOB: [facility] Number: [id number] Hospital [id number] Repository Date:3225-40-94[place] [address]QE: 08/23/2017 Tertiary NOT GIVENUNK [place] Insurance:SELF PAY [facility]: Effective Repository Date:2017-08-23 07/19/2017 JAIME D Primary JAIME D [facility] OSWALDDOB: Insurance:MEDICARE A OSWALDDOB: Health System AND BPolicy Number: [id number] Repository [place] [id number] [place] Date: [phone]: (HP) 07/19/2017 Secondary JAIME D [facility] Insurance:MUTUAL OF OSWALDDOB: [facility] [place] MEDICARE [id number] Repository SUPPLEMENTPolicy Number: [id number] Date: 07/17/2017 JAIME D Primary JAIME D [facility] OSWALDDOB: Insurance:MEDICARE OSWALDDOB: [facility] PART BPolicy Number: [id number] Repository [place] [id number] [place] Date:2017-07-17 [place], [place] [address]Uhk: 330 [id number] 33360Bmr: Name:[facility] [id number] (HP)Tel: (000) Administrators LLCPO (HP) (WP) [address] 000-0000 (WP) [address]PF: 07/17/2017 Secondary JAIME D [facility] Insurance:MUTUAL OF OSWALDDOB: [facility] Number: [id number] Repository [id number] [place] Date:2017-07-17 - [place] 9975-58-86Wsos [address]Okn: (330) Name:[facility] [place] [address] [facility] [place] (HP)Tel: [phone]) [phone]: ([phone] 06/15/2017 JAIME D [facility] OSWALDDOB: Insurance:MEDICARE OSWALDDOB: [facility] PART BPolicy Number: [id number] Repository [place] [id number] [place] Date:2017-06-15 [place], [place] [address]Vkr: [phone] [id number] 053[address]Owl: Name:[facility] [id number] (HP)Tel: (000) Administrators LLCPO (HP) (WP) [address] [address]Gzvyorpxd, [place] 000-0000 (WP) [address]LF: 06/15/2017 Secondary [facility] Insurance:MUTUAL OF OSWALDB: [facility] Number: [id number] Repository [id number] [place] Date:2017-06-15 [place], [place] 6572-99-68Ryyd [address]Tzy: ([phone]) Name:[facility]UAL [facility] [place] (HP)Tel: [phone]) [phone]: ([phone] 05/04/2017 JAIME De Guzman [facility] OSWALDDOB: Insurance:MEDICARE OSWALDDOB: [facility] PART BPolicy Number: [id number] Repository [place] [id number] [facility] [place] Date:2017-05-04 [place], [place] [address]Sjm: [phone] [id number] 27669Dcz: Name:[facility] [id number] (HP)Tel: (000) Administrators LLCPO (HP) (WP) [address] [address]Yexkyudqp, [place] 000-0000 (WP) [address]JM: 05/04/2017 Secondary [facility] Insurance:MUTUAL OF OSWALDDOB: [facility] Number: [id number] Repository [id number] [place] Date:2017-05-04 - [place] [id number] [address]Dlt: ([phone]) Name:[facility] [place] [phone] NATALIO FLETCHER ()Tel: [phone]: ([phone]
== END ==
PROVIDERS: Family Provider Internal Medicine; PCP Internal Medicine; Referring Provider Urology; Visit Provider Urology
DX: C61 Malignant neoplasm of prostate (principal)
CPT/HCPCS: 36415; 84153

== ENCOUNTER → 2018-08-20 09:05 | Outpatient (CLI) | payer MEDICARE, OTHER, SELFPAY ==
[2018-08-20 10:02] LABS: Absolute Lymphocyte Count 14.16 X10^3/ul (0.83-4.51); Absolute Neutrophil Count 5.2 X10^3/uL (2.0-7.7); Basophil# 0.07 X10^3/uL; Basophil% 0.3 % (0-1); Eosinophils% 2.4 % (0-5); Hematocrit 37.6 % (40-54); Lymphocyte # 14.16 X10^3/ul (4.0); Lymphocyte % 68.3 % (19-41); Mean Corp Hgb Conc 31.9 g/gl (32-36); Mean Corpuscular Hgb 28.8 pg (27.0-32.0); Mean Corpuscular Volume 90.2 fL (80-94); Mean Platelet Vol. 9.7 fl (6.2-12.0); Monocyte# 0.73 X10^3/uL; Monocyte% 3.5 % (0-10); Neutrophil # 5.21 X10^3/uL (2.7-7.7); Neutrophil % 25.2 % (47-70); Platelet Count 254 K/mm3 (150-450); RBC Distribution Width CV 15.6 % (11.6-14.6); RBC Distribution Width SD 50.9 fl (35.1-43.9); Red Blood Count 4.17 M/mm3 (4.6-6.2); White Blood Count 20.7 K/mm3 (4.4-11.0)
[2018-08-20 10:03] LABS: Differential Indicated SCAN CRITERIA MET; POSITIVE COUNT NO; POSITIVE DIFFERENTIAL YES; POSITIVE MORPHOLOGY NO
[2018-08-20 10:32] LABS: ALB/GLOB Ratio 1.5 RATIO (0.9-2.4); AST(SGOT) 21 U/L (15-37); Alanine Aminotransfer ALT/SGPT 21 U/L (16-61); Albumin, Serum 3.5 g/dL (3.2-5.0); Alkaline Phosphatase 94 U/L (45-117); Anion Gap 4 (5-15); BUN 28 mg/dL (7-18); BUN/Creat Ratio 21.7 RATIO (10-20); Calcium,Total 8.7 mg/dL (8.5-10.1); Chloride 109 mmol/L (98-107); Creatinine, Serum 1.29 mg/dL (0.70-1.30); EST Glomerular Filtration Rate 57 mL/min (>60); Est Glom Filt Rate - Afr Amer 69 mL/min (>60); Globulin 2.4 g/dL (2.2-4.2); Glucose 135 mg/dL (74-106); LDH 244 U/L (87-241); PSA,Total- Diagnostic 0.01 ng/mL (0.0-4.0); Protein, Total 5.9 g/dL (6.4-8.2); Sodium Level 141 mmol/L (136-145)
[2018-08-20 11:27] LABS: Platelet Estimate ADEQUATE (ADEQ); Red Cell Morphology NORM C+C NORMAL (NORM C&C)
[2018-08-20 11:28] LABS: Burr Cells RARE; Smudge Cells 2+
[2018-08-20 17:26] LABS: Xtra Tube EP Lab EXTRA TUBE
[2018-08-21 12:15] LABS: Pathologist Review Reviewed
== END ==
PROVIDERS: Family Provider Internal Medicine; PCP Internal Medicine; Referring Provider Internal Medicine Medical Oncology; Visit Provider Internal Medicine Medical Oncology
DX: C61 Malignant neoplasm of prostate (principal); C91.10 Chronic lymphocytic leukemia of B-cell type not having achieved remission
CPT/HCPCS: 36415; 80053; 83615; 84153; 85025

== ENCOUNTER → 2020-05-17 10:52 | Outpatient (CLI) | payer MEDICARE, SELFPAY ==
[2020-02-05 13:16] VITALS: BMI 28.4
[2020-05-17 12:10] LABS: PSA,Total- Diagnostic 0.05 ng/mL (0.0-4.0)
== END ==
PROVIDERS: PCP Nurse Practitioner Primary Care; Referring Provider Nurse Practitioner Adult Health; Visit Provider Nurse Practitioner Adult Health
DX: C61 Malignant neoplasm of prostate (principal)
CPT/HCPCS: 36415; 84153

== ENCOUNTER → 2021-02-21 12:42 | Outpatient (CLI) | payer MEDICARE, SELFPAY ==
[2021-02-21 13:48] LABS: Absolute Lymphocyte Count 37.93 X10^3/uL (0.83-4.51); Absolute Neutrophil Count 7.3 X10^3/uL (2.0-7.7); Basophil# 0.16 X10^3/uL; Basophil% 0.3 % (0-1); Eosinophil# 0.32 X10^3/uL; Eosinophils% 0.7 % (0-5); Hematocrit 34.3 % (40-54); Hemoglobin 10.8 g/dL (13.0-16.5); Lymphocyte # 37.93 X10^3/ul (0.83-4.51); Mean Corp Hgb Conc 31.5 g/dL (32-36); Mean Corpuscular Hgb 28.6 pg (27.0-32.0); Mean Platelet Vol. 9.5 fl (6.2-12.0); Monocyte# 2.09 X10^3/uL; Monocyte% 4.4 % (0-10); NRBC Flagged by Analyzer 0.1 % (0-5); Neutrophil # 7.26 X10^3/uL (2.7-7.7); POSITIVE COUNT YES; POSITIVE DIFFERENTIAL YES; POSITIVE MORPHOLOGY YES; Platelet Count 274 K/mm3 (150-450); RBC Distribution Width CV 16.2 % (11.6-14.6); RBC Distribution Width SD 53.6 fl (35.1-43.9); Red Blood Count 3.77 M/mm3 (4.6-6.2)
[2021-02-21 13:54] LABS: Differential Indicated SCAN CRITERIA MET
[2021-02-21 14:23] LABS: ALB/GLOB Ratio 0.9 RATIO (0.9-2.4); AST(SGOT) 15 U/L (15-37); Alanine Aminotransfer ALT/SGPT 22 U/L (16-61); Alkaline Phosphatase 98 U/L (45-117); Anion Gap 6 (5-15); BUN 35 mg/dL (7-18); BUN/Creat Ratio 24.3 RATIO (10-20); Calcium,Total 9.2 mg/dL (8.5-10.1); Chloride 106 mmol/L (98-107); Creatinine, Serum 1.44 mg/dL (0.70-1.30); EST Glomerular Filtration Rate 50 mL/min (>60); Est Glom Filt Rate - Afr Amer 60 mL/min (>60); Globulin 3.3 g/dL (2.2-4.2); Glucose 141 mg/dL (74-106); LDH 243 U/L (87-241); Potassium 4.3 mmol/L (3.5-5.1); Protein, Total 6.3 g/dL (6.4-8.2); Sodium Level 142 mmol/L (136-145)
[2021-02-21 14:46] LABS: Smudge Cells 1+
[2021-02-22 13:24] LABS: Pathologist Review Reviewed
== END ==
PROVIDERS: PCP Nurse Practitioner Primary Care; Referring Provider Internal Medicine Medical Oncology; Visit Provider Internal Medicine Medical Oncology
DX: C61 Malignant neoplasm of prostate (principal)
CPT/HCPCS: 36415; 80053; 83615; 85025

== ENCOUNTER 2023-03-04 12:38 | Inpatient (IN) | payer MEDICARE, SELFPAY ==
[2023-03-04] VITALS (9 sets, daily range): BP systolic 112–177; BP diastolic 59–80; PULSE 64–89; RESP 14–97; TEMP 36.4–36.7; O2SAT 98–100; BMI 25.0; BMI 26.1
--- NOTE | 2023-03-04 12:59 | RAD_ITS ---
INDICATION: chest pain EXAMINATION/TECHNIQUE: X-RAY - XR Chest 1 View COMPARISON: Prior study dated: 09/20/2015. FINDINGS: LINES/DEVICES: New dual-chamber left-sided cardiac pacer device in place. LUNGS: No consolidation, edema or effusion. No pneumothorax. MEDIASTINUM AND CARDIOVASCULAR STRUCTURES: Cardiac silhouette not enlarged. Central airways and mediastinal contour are unremarkable. BONES AND SOFT TISSUES: Unremarkable. RAD/Chest 1 View (Portable) IMPRESSION: No radiographic evidence of acute cardiopulmonary disease. Electronically Signed: Randy Coffey MD at 13:53 EDT ,
--- NOTE | 2023-03-04 13:00 | CT_ITS ---
INDICATION: vertigo EXAMINATION: CT BRAIN - CT Head or Brain W/O Contrast Injection TECHNIQUE: Multiple axial images were obtained of the head without intravenous contrast. A radiation dose optimization technique was used for this scan. IV Contrast dosage and agent: None. RADIATION DOSAGE (If Supplied By Facility): CTDIvol = ( 44.99 ) mGy, DLP = ( 779.24 ) mGycm COMPARISON: Prior study dated: 11/17/2015. FINDINGS: BRAIN PARENCHYMA: No intra- or extra-axial hemorrhage. No evidence of acute infarct. No intracranial mass or mass effect. There is preservation of the rouse/white matter interface. Mild chronic periventricular deep white matter changes likely due to microvascular disease. Posterior fossa structures are unremarkable. Atherosclerotic calcifications of the cavernous internal carotid arteries. CSF SPACES: Mild atrophy appropriate for patient''s age. No hydrocephalus. Basal cisterns are patent. CALVARIUM, SKULL BASE, PARANASAL SINUSES AND MASTOID AIR CELLS: Clear. No discrete lytic or blastic abnormalities. ORBITS: Both globes, extraocular muscles, optic nerves and retrobulbar fat appear unremarkable. CT/Brain/Head without Contrast IMPRESSION: 1. No acute intracranial process. 2. Chronic involutional changes of the brain. Electronically Signed: Randy Coffey MD at 14:05 EDT ,
--- NOTE | 2023-03-04 13:07 | EDS_ITS ---
HPI <RENETTA Waldrop - Last Filed: 03/04/23 14:13> History of Present Illness Chief Complaint: Dizziness Narrative Narrative: Patient is an 82-year-old male with history of nonischemic cardiomyopathy, vascular tachycardia, hypertension history of prostate cancer, CLL, history of brain bleed presents to the emergency department after multiple weeks of dizziness. Per the patient as well as the patient's , he has been having worsening dizziness over the last 3 to 4 weeks. He did have a mechanical fall few weeks ago and injuring his right wrist. Today he was at [employer], he had 2 episodes of dizziness, he did fall the second time. He denies any injury from today's fall. However secondary to the ongoing dizziness he is here for evaluation. Denies any weakness to his upper or lower extremities. Denies any difficulty speaking. Patient states the dizziness is more as unsteadiness, feeling that his balance is off. He denies any spinning sensation, denies any concern for lightheadedness. PFSH <RENETTA Waldrop - Last Filed: 03/04/23 14:13> [facility] Medical History (Updated 03/04/23 @ 14:[address] Waylon Sanchse, DO) CKD (chronic kidney disease) Essential hypertension Fracture of unspecified phalanx of unspecified finger, initial encounter for closed fracture Iron deficiency anemia LBBB (left bundle branch block) Non-ischemic cardiomyopathy Pacemaker Peripheral neuropathy Restless leg syndrome Subdural hematoma Syncope and collapse Ventricular tachycardia Home Medications multivitamin (Daily Multiple tablet) 1 ea PO DAILY 03/15/15 [History Last Taken 03/04/23] cholecalciferol (vitamin D3) 25 mcg (1,000 unit) capsule (Vitamin D3) 1,000 unit PO DAILY 08/09/16 [History Last Taken 03/04/23] carvedilol 25 mg tablet 25 mg PO BID 08/24/16 [History Last Taken 03/04/23] glucosamine 750 [id number] no1 644 mg-C 30 mg-gilson 1 mg tablet (Osteo Bi-Flex Triple Strength) 1 ea PO DAILY 08/24/16 [History Last Taken 03/04/23] sacubitril 49 mg-valsartan 51 mg tablet (Entresto) 1 tab PO BID 08/24/22 [History Last Taken 03/04/23] zinc acetate 50 mg (zinc) capsule 50 mg PO DAILY 08/24/22 [History Last Taken 03/04/23] atorvastatin 10 mg tablet 10 mg PO DAILY 03/04/23 [History Last Taken 03/03/23] nortriptyline 50 mg capsule 50 mg PO BID 03/04/23 [History Last Taken 03/04/23] Allergy/AdvReac Type Severity Reaction Status Date / Time lisinopril AdvReac Unknown cough Verified 08/24/22 15:46 Family History (Updated 08/24/22 @ 15:56 by Marely Parada) Mother CVA (cerebral vascular accident) Hypertension Diabetes Father Ischemic heart disease Diabetes Surgical History Cardiac 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 therapy defibrillator ([employer]-D) in place (~09/2015) History of arthroplasty of finger of left hand History of colonoscopy History of left heart catheterization (09/22/15) Splenic artery aneurysm Social History (Updated 08/24/22 @ 15:55 by Marely Parada) Smoking Status: Never smoker alcohol intake: never substance use type: does not use caffeine: Yes Type: coffee Number of servings: 3 ROS <RENETTA Waldrop - Last Filed: 03/04/23 14:13> [facility] ROS Narrative Constitutional: Negative for fever, chills, weight loss, weakness Eyes: Negative for vision loss, vision change, double vision ENT: Negative for any sore throat, ear pain, congestion Cardiovascular: Negative for any chest pain, tightness, palpitations Respiratory: Negative for any cough, sputum production, hemoptysis, dyspnea, dyspnea on exertion, orthopnea Gastrointestinal: Negative for any abdominal pain, nausea, vomiting, diarrhea, constipation, blood in stool, blood in vomit : Negative for any urinary frequency, dysuria, retention, blood in urine Muscle skeletal: Negative for any muscle joint pain, stiffness, myalgias, arthralgias, neck pain, back pain Neurological: Negative for any headache, syncope, numbness or tingling. Positive for feeling of unsteadiness, worse with standing up Skin: Negative for any rashes, lumps, itching, abrasions, lacerations Psychiatric: Negative for any depression, anxiety, stress, suicidal ideation, homicidal ideation Hematologic: Negative for any easy bruising, excessive bruising, easy bleeding Allergies: Negative for any eczema, hives, rash EXAM <Manolo OsunaRENETTA kessler - Last Filed: 03/04/23 14:13> Physical Exam Narrative Exam Narrative: Vital signs reviewed. Patient is no obvious distress. Alert and orient x4. Patient's feels asymptomatic at this time. HEET: Head normocephalic atraumatic, TMs clear bilaterally. Posterior pharynx is clear, moist mucous membranes. Nares clear bilaterally. Neck: Supple with no lymphadenopathy or tenderness. No signs of meningismus, negative jolt sign. Cardiac: Regular rate and rhythm no murmurs gallops or rubs, equal peripheral pulses bilaterally. Respiratory: Lungs clear to auscultation bilaterally. No chest tenderness. Abdomen: Soft, nontender, nondistended. No abdominal bruit or pulsatile masses. No hepatosplenomegaly Extremities: No peripheral edema, no signs of gross trauma or deformity. Active full range of motion of all extremities. Neuro: Cranial nerves II through XII intact, no focal neurological deficits. NIH stroke score is 0. [place]-Hallpike was negative. Patient did have orthostatic vital signs completed, patient did have a 20 point drop to the systolic blood pressure however heart rate remained the same. Patient denied any dizziness or unsteadiness sensation. Skin: Clean dry and intact with no rash, purpura, petechiae, vesicles or pus tules. Backs/flank: No CVA tenderness, no midline spinal tenderness, no deformity. Psych: Normal mood and affect. No SI, HI or acute psychosis. Const Vital Signs: 03/04/23 12:39 03/04/23 12:40 03/04/23 13:01 Temperature 97.6 F L Temperature Source Temporal Pulse Rate 68 Respiratory Rate 16 Respiratory Effort Normal Respiratory Depth Normal Respiratory Pattern Normal Blood Pressure 161/79 H Blood Pressure [Lying] Blood Pressure [Sitting (for 1 minute prior to obtaining)] Blood Pressure [Standing (for 1 minute prior to obtaining)] Blood Pressure Mean 106 Blood Pressure Mean [Lying] Blood Pressure Mean [Sitting (for 1 minute prior to obtaining)] Blood Pressure Mean [Standing (for 1 minute prior to obtaining)] Pulse Ox 99 Oxygen Delivery Method Room Air Room Air Room Air 03/04/23 13:20 03/04/23 13:21 Temperature Temperature Source Pulse Rate 74 Respiratory Rate 97 H Respiratory Effort Respiratory Depth Respiratory Pattern Blood Pressure 132/59 H Blood Pressure [Lying] 132/59 H Blood Pressure [Sitting (for 1 minute prior to obtaining)] 113/64 Blood Pressure [Standing (for 1 minute prior to obtaining)] 112/62 Blood Pressure Mean 83 Blood Pressure Mean [Lying] 83 Blood Pressure Mean [Sitting (for 1 minute prior to obtaining)] 80 Blood Pressure Mean [Standing (for 1 minute prior to obtaining)] 78 Pulse Ox Oxygen Delivery Method Room Air <Dr. Yovani Crenshaw DO - Last Filed: 03/04/23 15:58> Physical Exam Const Vital Signs: 03/04/23 12:39 03/04/23 12:40 03/04/23 13:01 Temperature 97.6 F L Temperature Source Temporal Pulse Rate 68 Respiratory Rate 16 Respiratory Effort Normal Respiratory Depth Normal Respiratory Pattern Normal Blood Pressure 161/79 H Blood Pressure [Lying] Blood Pressure [Sitting (for 1 minute prior to obtaining)] Blood Pressure [Standing (for 1 minute prior to obtaining)] Blood Pressure Mean 106 Blood Pressure Mean [Lying] Blood Pressure Mean [Sitting (for 1 minute prior to obtaining)] Blood Pressure Mean [Standing (for 1 minute prior to obtaining)] Pulse Ox 99 Oxygen Delivery Method Room Air Room Air Room Air 03/04/23 13:20 03/04/23 13:21 Temperature Temperature Source Pulse Rate 74 Respiratory Rate 97 H Respiratory Effort Respiratory Depth Respiratory Pattern Blood Pressure 132/59 H Blood Pressure [Lying] 132/59 H Blood Pressure [Sitting (for 1 minute prior to obtaining)] 113/64 Blood Pressure [Standing (for 1 minute prior to obtaining)] 112/62 Blood Pressure Mean 83 Blood Pressure Mean [Lying] 83 Blood Pressure Mean [Sitting (for 1 minute prior to obtaining)] 80 Blood Pressure Mean [Standing (for 1 minute prior to obtaining)] 78 Pulse Ox Oxygen Delivery Method Room Air [facility] <RENETTA Waldrop - Last Filed: 03/04/23 14:13> [facility] Lab Data Labs: Laboratory Results - last 24 hr 03/04/23 03/04/23 12:55 13:00 WBC 52.1 H* RBC 3.52 L Hgb 9.0 L Hct 30.8 L MCV 87.5 MCH 25.6 L MCHC 29.2 L RDW Std Deviation 56.0 H RDW Coeff of Willie 18.0 H Plt Count 305 MPV 9.5 Immature Gran % (Auto) 0.200 Neut % (Auto) 7.6 L Lymph % (Auto) 89.0 H Kerr % (Auto) 2.3 Eos % (Auto) 0.5 Baso % (Auto) 0.4 Absolute Neuts (auto) 3.9 Absolute Lymphs (auto) 46.39 H Nucleated RBC % 0 Diff Path Review May foll Smudge Cells 2+ Sodium 142 Potassium 4.6 Chloride 110 H Carbon Dioxide 26.0 Anion Gap 6 BUN 62 H Creatinine 2.82 H Estim Creat Clear Calc 20.13 Est GFR (MDRD) Af Amer 28 L Est GFR (MDRD) Non-Af 23 L BUN/Creatinine Ratio 22.0 H Glucose 90 Calcium 9.2 Troponin I High Sens 12 B-Natriuretic Peptide 477.2 H Urine Color Yellow Urine Clarity Turbid Urine pH 6.0 Ur Specific [place] 1.010 Urine Protein 100 H Urine Glucose (UA) Normal Urine Ketones Negative Urine Occult Blood 50 H Urine Nitrite Positive H Urine Bilirubin Negative Urine Urobilinogen Normal Ur Leukocyte Esterase 500 H Urine RBC 0 SEEN Urine WBC >100 SEEN Ur Squamous Epith Cells 0 SEEN Urine Bacteria 0 SEEN Urine Mucus 0 SEEN Radiography Diagnostic Testing: Clinical Impression(s) from Imaging Studies Chest X-Ray 03/04/23 12:59 IMPRESSION: No radiographic evidence of acute cardiopulmonary disease. Electronically Signed: Randy Coffey MD at 13:53 EDT , Brain CT 03/04/23 13:00 IMPRESSION: 1. No acute intracranial process. 2. Chronic involutional changes of the brain. Electronically Signed: Randy Coffey MD at 14:05 EDT , Treatment and Re-Evaluation :: Patient is in no obvious distress, vital signs are stable. Presenting to the emergency department with complaints of dizziness, which she describes as unsteadiness, difficulty keeping his balance. Differential diagnosis includes benign positional peripheral vertigo, brain tumor, dehydration, orthostatic hypotension. Patient will receive a full work-up including cardiac markers, CBC, BMP. Patient will receive 500 cc of normal saline bolus, looking for any urinary tract infection, as well as a CT scan of the brain. Patient did have orthostatic vital signs, there was a 20 point drop in the systolic blood pressure from laying to sitting however patient did not have an elevated heart rate. Patient was also asymptomatic during the orthostatic vital signs. Patient laboratory values showed a leukocytosis white blood count of 52.1, this is secondary to his CLL, he is aware that he does have elevated white blood count. Patient since 2019 has been over 20. Patient is slightly anemic with a hemoglobin 9.0, this is slightly down from his baseline of 10-11. Patient's chemistries show acute renal sufficiency with a BUN of 62 creatinine 2.8 and EGFR of 23. Patient 1 year ago showed a creatinine of 1.53 this was his baseline. Patient's proBNP was elevated at 477. Urinalysis was positive for infection with leukocytosis, nitrates, leukocyte Estrace. This was sent for culture. Patient was started IV Rocephin. He was given 500 cc of normal saline. Patient's chest x-ray, CT of the brain was grossly unremarkable. At this time, I do believe the patient needs to be admitted to the hospital, patient has acute kidney injury, dehydration, UTI. This could be likely why the patient has been having difficulty with balance. There is no evidence of any stroke. No evidence of any central vertigo. Patient will be admitted, hospitalist accepts. <Dr. Yovani Crenshaw, DO - Last Filed: 03/04/23 15:58> [facility] Narrative Medical decision making narrative: I have personally performed a face to face assessment of the patient and have reviewed the EMPERATRIZ Note. I performed a substantive portion of the visit including all aspects of the following. My ny findings include: History: Patient presents with dizziness that has been getting worse over the past several days. Patient states he feels like he is off balance. Patient states it is worse when he stands up from a seated position. Patient also thinks it may be worse when he extends his neck. Patient denies any hearing changes. Patient denies any tinnitus. Patient denies any nausea or vomiting. Patient denies any headaches. Exam: Vital signs are stable. Patient is afebrile. Patient is in no acute distress. Oral mucosa is pink and moist. Neck is supple. Trachea is midline. There is no JVD. Heart was regular rate and rhythm. Lungs are clear and equal bilaterally. Abdomen is soft. Bowel sounds are normal. There is no tenderness. Cranial nerves II through XII are intact. There are no focal motor or sensory deficits noted. Pupils are equal, round, and reactive to light bilaterally. Extraocular muscles are intact. There is no nystagmus noted. There is small some conjunctival hemorrhages on the right. Medical Decision Making: Differential diagnosis includes vertigo, labyrinthitis, stroke, intracranial bleeding, cardiac dysrhythmia, cardiac ischemia, and urinary tract infection. CT scan of the brain will be obtained to assess for intracranial bleeding. CBC will be obtained to assess for leukocytosis and anemia. Basic metabolic profile will be obtained to assess for renal function and electrolyte abnormalities. BNP will be obtained to assess for congestive heart failure. High-sensitivity troponin will be obtained to assess for cardiac ischemia. 2-hour repeat high-sensitivity troponin will be obtained to assess for ongoing cardiac ischemia. Urinalysis will be obtained to assess for urinary tract infection. Chest x-ray will be obtained to assess for pneumonia. EKG will be obtained to assess for cardiac dysrhythmia and cardiac ischemia. EKG was obtained. It showed a paced rhythm with a left bundle branch block pattern. There are no acute ST or T wave changes noted. CBC was reviewed. White blood cell count was elevated at 52.1. There is a mild anemia with a hemoglobin of 9.0 and hematocrit 30.8. Platelets were normal. Basic metabolic profile was reviewed. BUN was 62 and creatinine was 2.82. This was increased from previous results. High-sensitivity troponin was reviewed and was normal at 12. BNP was reviewed and was elevated at 477.2. Urinalysis was reviewed. There were positive nitrites. Leukocyte esterase was 500. There were greater than 100 white blood cells noted. Patient was started on Rocephin. Patient was given IV fluids. Case was discussed with the hospitalist. She will admit the patient to her service. Patient understood and was agreeable with the plan. All questions were answered. Lab Data Labs: Laboratory Results - last 24 hr 03/04/23 03/04/23 12:55 13:00 WBC 52.1 H* RBC 3.52 L Hgb 9.0 L Hct 30.8 L MCV 87.5 MCH 25.6 L MCHC 29.2 L RDW Std Deviation 56.0 H RDW Coeff of Willie 18.0 H Plt Count 305 MPV 9.5 Immature Gran % (Auto) 0.200 Neut % (Auto) 7.6 L Lymph % (Auto) 89.0 H Kerr % (Auto) 2.3 Eos % (Auto) 0.5 Baso % (Auto) 0.4 Absolute Neuts (auto) 3.9 Absolute Lymphs (auto) 46.39 H Nucleated RBC % 0 [address] Review May foll Smudge Cells 2+ Sodium 142 Potassium 4.6 Chloride 110 H Carbon Dioxide 26.0 Anion Gap 6 BUN 62 H Creatinine 2.82 H Estim Creat Clear Calc 20.13 Est GFR (MDRD) Af Amer 28 L Est GFR (MDRD) Non-Af 23 L BUN/Creatinine Ratio 22.0 H Glucose 90 Calcium 9.2 Troponin I High Sens 12 B-Natriuretic Peptide 477.2 H Urine Color Yellow Urine Clarity Turbid Urine pH 6.0 Ur Specific [place] 1.010 Urine Protein 100 H Urine Glucose (UA) Normal Urine Ketones Negative Urine Occult Blood 50 H Urine Nitrite Positive H Urine Bilirubin Negative Urine Urobilinogen Normal Ur Leukocyte Esterase 500 H Urine RBC 0 SEEN Urine WBC >100 SEEN Ur Squamous Epith Cells 0 SEEN Urine Bacteria 0 SEEN Urine Mucus 0 SEEN Radiography Diagnostic Testing: Clinical Impression(s) from Imaging Studies Chest X-Ray 03/04/23 12:59 IMPRESSION: No radiographic evidence of acute cardiopulmonary disease. Electronically Signed: Randy Coffey MD at 13:53 EDT Reading Location ID and State: [facility] / [place] Tel , Service support , Brain CT 03/04/23 13:00 IMPRESSION: 1. No acute intracranial process. 2. Chronic involutional changes of the brain. Electronically Signed: Rnady Coffey MD at 14:05 EDT , Management Discussion w/another healthcare provider: Hospitalist Discharge Plan Dx/Rx/DC Orders Clinical Impression: Acute kidney injury, UTI (urinary tract infection), Dizziness, Anemia, History of chronic lymphocytic leukemia, Fall Disposition Disposition: Acute Care Hospital [facility] Discharge Date/Time: 03/04/23 15:03
[2023-03-04 13:12] LABS: Absolute Lymphocyte Count 46.39 X10^3/uL (0.83-4.51); Absolute Neutrophil Count 3.9 X10^3/uL (2.0-7.7); Basophil% 0.4 % (0-1); Differential Indicated SCAN CRITERIA MET; Eosinophil# 0.28 X10^3/uL; Eosinophils% 0.5 % (0-5); Hematocrit 30.8 % (40-54); Lymphocyte # 46.39 X10^3/ul (0.83-4.51); Mean Corp Hgb Conc 29.2 g/dL (32-36); Mean Corpuscular Hgb 25.6 pg (27.0-32.0); Mean Corpuscular Volume 87.5 fL (80-94); Mean Platelet Vol. 9.5 fl (6.2-12.0); Monocyte# 1.21 X10^3/uL; Monocyte% 2.3 % (0-10); NRBC Flagged by Analyzer 0 % (0-5); Neutrophil # 3.93 X10^3/uL (2.7-7.7); Neutrophil % 7.6 % (47-70); POSITIVE COUNT YES; POSITIVE DIFFERENTIAL YES; POSITIVE MORPHOLOGY YES; Platelet Count 305 K/mm3 (150-450); Red Blood Count 3.52 M/mm3 (4.6-6.2); White Blood Count 52.1 K/mm3 (4.4-11.0)
[2023-03-04 13:27] LABS: Anion Gap 6 (5-15); BUN 62 mg/dL (7-18); Calcium,Total 9.2 mg/dL (8.5-10.1); Chloride 110 mmol/L (98-107); Creatinine, Serum 2.82 mg/dL (0.70-1.30); EST Glomerular Filtration Rate 23 mL/min (>60); Est Glom Filt Rate - Afr Amer 28 mL/min (>60); Estimated Creatinine Clearance 20.13 ml/min; Glucose 90 mg/dL (74-106); Potassium 4.6 mmol/L (3.5-5.1); Sodium Level 142 mmol/L (136-145); Troponin-I HS (w/2H Reflex) 12 pg/mL (3.0-78.0)
[2023-03-04] MEDS: 0.9% Normal Saline (500mL Bag) 500 ML 999 ML IV (13:27)
[2023-03-04 13:30] LABS: BNP,B-Type NATRIURETIC PEPTIDE 477.2 pg/mL (0-100)
[2023-03-04 13:31] LABS: Smudge Cells 2+
[2023-03-04 13:33] LABS: Bacteria 0 SEEN /hpf (None Seen); Mucous, Urine 0 SEEN /hpf (<or=2+); Red Blood Cells-Urine 0 SEEN /hpf (0-5); Squamous Epithelial Cells - UA 0 SEEN /hpf (0-5)
[2023-03-04 13:38] LABS: Color, Urine Yellow (Yellow); Glucose, Dipstick Normal (Normal); Ketone-Dipstick Negative (Negative); Leukocyte Esterase-Dipstick 500 /ul (Negative); Nitrite-Dipstick Positive (Negative); Occult Blood-Urine 50 /ul (Negative); Protein-Dipstick 100 mg/dl (Negative); Urine Bilirubin Dipstick Negative (Negative); Urine Clarity Turbid (Clear); Urine Urobilinogen Normal (Normal)
[2023-03-04 13:44] LABS: White Blood Cells >100 SEEN /hpf (0-5)
--- NOTE | 2023-03-04 14:29 | HP.PCM.HOS_ITS ---
HPI - General General Date of Admission: 03/04/23 Date of Service: 03/04/23 Chief Complaint: Orthostatic hypotension HPI Narrative BIGG LONG, is a 82 M with past medical history of heart failure with recovered ejection fraction, prostate cancer s/p radiation, iron deficiency anemia and CLL who presented to [facility] ED on 03/04/2023 with worsening dizziness. Patient seen at bedside in the ED, and son present. Patient sitting comfortably in bed, conversing normally, no acute distress. Patient states that he has felt dizzy specifically when going from sitting to standing over the past several weeks. Has history of heart failure and is on Coreg and Entresto, denies any recent changes to his medications that he is aware of. Patient denies any episodes of syncope or falls. Patient denies any specific vision changes. Denies any weakness, numbness or tingling in his extremities. Patient notes that he has been urinating quite frequently recently and often does not have very good p.o. intake at home. Patient denies any dysuria or burning with urination recently. He denies any fevers or chills curr ently. Denies any other acute concerns this morning. Vitals in ED notable for normotensive to mildly hypertensive BP, otherwise unremarkable. Notably did have orthostatic hypotension with 20 point drop of BP with standing in the ED. Labs notable for WBC count 52 (close to baseline), hemoglobin 9.0, platelets 305, sodium 142, potassium 4.6, chloride 110, bicarb 26, BUN 62, creatinine 2.82, BNP 477, troponin normal. UA showed positive nitrites, 500 leukocyte esterase, greater than 100 WBCs, however 0 bacteria. Chest x-ray nonacute. CT brain without contrast showed no acute intracranial pr ocess, chronic involutional changes of the brain. [facility] Medical History (Updated 03/04/23 @ 14:[address] Waylon Sanches, ) CKD (chronic kidney disease) Essential hypertension Fracture of unspecified phalanx of unspecified finger, initial encounter for closed fracture Iron deficiency anemia LBBB (left bundle branch block) Non-ischemic cardiomyopathy Pacemaker Peripheral neuropathy Restless leg syndrome Subdural hematoma Syncope and collapse Ventricular tachycardia Home Medications multivitamin (Daily Multiple tablet) 1 ea PO DAILY 03/15/15 [History Last Taken 03/04/23] cholecalciferol (vitamin D3) 25 mcg (1,000 unit) capsule (Vitamin D3) 1,000 unit PO DAILY 08/09/16 [History Last Taken 03/04/23] carvedilol 25 mg tablet 25 mg PO BID 08/24/16 [History Last Taken 03/04/23] glucosamine 750 [id number] 644 mg-C 30 mg-gilson 1 mg tablet (Osteo Bi-Flex Triple Strength) 1 ea PO DAILY 08/24/16 [History Last Taken 03/04/23] sacubitril 49 mg-valsartan 51 mg tablet (Entresto) 1 tab PO BID 08/24/22 [History Last Taken 03/04/23] zinc acetate 50 mg (zinc) capsule 50 mg PO DAILY 08/24/22 [History Last Taken 03/04/23] atorvastatin 10 mg tablet 10 mg PO DAILY 03/04/23 [History Last Taken 03/03/23] nortriptyline 50 mg capsule 50 mg PO BID 03/04/23 [History Last Taken 03/04/23] Allergy/AdvReac Type Severity Reaction Status Date / Time lisinopril AdvReac Unknown cough Verified 08/24/22 15:46 Family History (Updated 08/24/22 @ 15:56 by Marely Parada) Mother CVA (cerebral vascular accident) Hypertension Diabetes Father Ischemic heart disease Diabetes Surgical History Cardiac 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 therapy defibrillator (CYLINDER FILLER-D) in place (~09/2015) History of arthroplasty of finger of left hand History of colonoscopy History of left heart catheterization (09/22/15) Splenic artery aneurysm Social History (Updated 08/24/22 @ 15:55 by Marely Parada) Smoking Status: Never smoker alcohol intake: never substance use type: does not use caffeine: Yes Type: coffee Number of servings: 3 ROS Constitutional Constitutional: Denies change in weight, chills, fatigue, fever(s) or weakness Eyes Eyes: Denies change in vision Cardiovascular Cardiovascular: Reports lightheadedness; Denies chest pain, edema, orthopnea, palpitations, rapid heart rate or syncope Respiratory/Chest Respiratory/Chest: Denies cough or shortness of breath at rest Gastrointestinal Gastrointestinal: Denies abdominal pain, constipation, diarrhea, nausea or vomiting Genitourinary Genitourinary: Denies burning urination or dysuria Neurologic Neurologic: Reports dizziness; Denies abnormal gait, abnormal speech, confusion, focal weakness, headache(s), numbness, paresthesias, syncope or tingling Vital Signs Vital Signs Vital Signs: 03/04/23 12:39 03/04/23 12:40 03/04/23 13:01 Temperature 97.6 F L Temperature Source Temporal Pulse Rate 68 Respiratory Rate 16 Respiratory Effort Normal Respiratory Depth Normal Respiratory Pattern Normal Blood Pressure 161/79 H Blood Pressure [Lying] Blood Pressure [Sitting (for 1 minute prior to obtaining)] Blood Pressure [Standing (for 1 minute prior to obtaining)] Blood Pressure Mean 106 Blood Pressure Mean [Lying] Blood Pressure Mean [Sitting (for 1 minute prior to obtaining)] Blood Pressure Mean [Standing (for 1 minute prior to obtaining)] Pulse Ox 99 Oxygen Delivery Method Room Air Room Air Room Air 03/04/23 13:20 03/04/23 13:21 Temperature Temperature Source Pulse Rate 74 Respiratory Rate 97 H Respiratory Effort Respiratory Depth Respiratory Pattern Blood Pressure 132/59 H Blood Pressure [Lying] 132/59 H Blood Pressure [Sitting (for 1 minute prior to obtaining)] 113/64 Blood Pressure [Standing (for 1 minute prior to obtaining)] 112/62 Blood Pressure Mean 83 Blood Pressure Mean [Lying] 83 Blood Pressure Mean [Sitting (for 1 minute prior to obtaining)] 80 Blood Pressure Mean [Standing (for 1 minute prior to obtaining)] 78 Pulse Ox Oxygen Delivery Method Room Air Weight Weight: 79.197 kg Body Mass Index (BMI) 25.0 Physical Exam Const alert, oriented x3, no apparent distress and average body habitus Constitutional Narrative: Pleasant elderly female, sitting comfortably in bed, conversing normally, no acute distress. General Appearance: cooperative and comfortable HEENT normocephalic, head/scalp atraumatic, hearing grossly normal bilaterally, nasal mucous membranes and turbinates normal and moist oral mucous membranes Eyes PERRL, EOMs intact bilaterally and conjunctivae normal Neck full ROM, no lymphadenopathy and supple Lymph Lymphatic: no lymphadenopathy noted Chest inspection of chest normal Resp normal respiratory effort, normal air movement, no use of accessory muscles and clear to auscultation bilaterally Cardio regular rate, regular rhythm, no murmurs and peripheral pulses 2+ throughout GI normal to inspection, nondistended, normoactive bowel sounds, soft to palpation, non-tender and non-distended Back/Spine normal ROM Extremity normal to inspection, full ROM and no pedal edema Skin no rashes or lesions noted Psych mental status grossly normal Results Lab / Micro Data 03/04/23 12:55 03/04/23 12:55 Labs: Laboratory Results - last 24 hr 03/04/23 12:55: WBC 52.1 H*, RBC 3.52 L, Hgb 9.0 L, Hct 30.8 L, MCV 87.5, MCH 25.6 L, MCHC 29.2 L, RDW Std Deviation 56.0 H, RDW Coeff of Willie 18.0 H, Plt Count 305, MPV 9.5, Immature Gran % (Auto) 0.200, Neut % (Auto) 7.6 L, Lymph % (Auto) 89.0 H, [place] % (Auto) 2.3, Eos % (Auto) 0.5, Baso % (Auto) 0.4, Absolute Neuts (auto) 3.9, Absolute Lymphs (auto) 46.39 H, Nucleated RBC % 0, Diff Path Review May foll, Smudge Cells 2+, Sodium 142, Potassium 4.6, Chloride 110 H, Carbon Dioxide 26.0, Anion Gap 6, BUN 62 H, Creatinine 2.82 H, Estim Creat Clear Calc 20.13, Est GFR (MDRD) Af Amer 28 L, Est GFR (MDRD) Non-Af 23 L, BUN/Creatinine Ratio 22.0 H, Glucose 90, Calcium 9.2, Troponin I High Sens 12, B-Natriuretic Peptide 477.2 H 03/04/23 13:00: Urine Color Yellow, Urine Clarity Turbid, Urine pH 6.0, Ur Specific [place] 1.010, Urine Protein 100 H, Urine Glucose (UA) Normal, Urine Ketones Negative, Urine Occult Blood 50 H, Urine Nitrite Positive H, Urine Bilirubin Negative, Urine Urobilinogen Normal, Ur Leukocyte Esterase 500 H, Urine RBC 0 SEEN, Urine WBC >100 SEEN, Ur Squamous Epith Cells 0 SEEN, Urine Bacteria 0 SEEN, Urine Mucus 0 SEEN Radiology Impression Chest X-Ray 03/04/23 12:59 IMPRESSION: No radiographic evidence of acute cardiopulmonary disease. Electronically Signed: Randy Coffey MD at 13:53 EDT , Brain CT 03/04/23 13:00 IMPRESSION: 1. No acute intracranial process. 2. Chronic involutional changes of the brain. Electronically Signed: Randy Coffey MD at 14:05 EDT , Assessment & Plan Assessment/Plan (1) Orthostatic hypotension: PLAN: Plan Patient is an 82-year-old male with past medical history of heart failure with recovered ejection fraction, prostate cancer s/p radiation, iron deficiency anemia and CLL who presented to [facility] ED on 03/04/2023 with worsening dizziness. 1. Dizziness, orthostatic hypotension Positive orthostatic vital signs in the ED, blood pressure dropped about 20 points with standing. Orthostatic hypotension seems like most likely cause of his dizziness. May be secondary to overmedication. Does not seem consistent with BPPV or vertigo. Very low concern for intracranial etiology. CT brain without contrast in ED showed no acute intracranial process, chronic evolution of changes of the brain. Patient notably is on Coreg and Entresto for heart failure as noted below. ? Admit under observation status to PCU. We will give low-dose maintenance IV fluids through tomorrow morning. Recheck orthopedic vitals tomorrow. Hold home Coreg and Entresto for now, can likely restart Coreg tomorrow but would consider holding Entresto on discharge and can follow-up outpatient with cardiology to consider resuming at that time if needed. 2. AUGUSTO on CKD III Presumed prerenal AUGUSTO secondary to hypovolemia from possible overmedication as noted above. BUN 62, creatinine 2.82 on admit. Baseline creatinine appears to be around 1.3-1.6. ? Follow-up BMP tomorrow after IV fluids as noted above. Urine sodium and creatinine ordered to calculate FeNa. Lower concern for postobstructive etiology as patient reports good urine output, but will order renal/bladder ultrasound for completeness sake, especially given his history of prostate cancer as noted below. 3. Concern for UTI UA on admit with 500 leukocyte esterase, positive nitrates, greater than 100 WBCs, however no bacteria seen. Given 1 dose of IV ceftriaxone empirically in the ED. ? We will continue empiric ceftriaxone for now. Urine culture pending. 4. CLL, severe leukocytosis Follows outpatient with Dr. Bush with Oncology, last known office visit was in February 2022. Diagnosed with CLL back in 2003, has not required therapy to this point. WBC count has consistently been in the 40s since 2019. WBC count of 52 on admit. May be slightly elevated secondary to UTI, otherwise likely close to patient's baseline. Afebrile on admit. ? Monitor CBC daily. Outpatient follow-up with oncology. 5. Heart failure with recovered ejection fraction Patient had echo from 2015 that showed an EF of 20% at that time. Has followed with [facility] cardiology since then. On review of [facility] records, patient had an echo in 09/2022 that showed an EF of 48%. He is on home Coreg 25 mg twice daily and Entresto 49-51 mg twice daily. Patient denies any recent medication changes that he is aware of. ? Holding home Coreg and Entresto for now as noted above. Given the patient's ejection fraction has recovered fairly well, may be reasonable to hold Entresto on discharge and monitor BP outpatient. Can follow-up with [facility] cardiology and determine if patient continues to need Entresto going forward. Can likely restart Coreg on discharge. 6. Iron deficiency anemia Previously diagnosed with iron deficiency anemia back in February 2021. Unclear if patient was taking iron supplementation for this. Hemoglobin 9.0 on admit, baseline hemoglobin appears to be around 10-11. No signs of bleeding. ? Monitor CBC daily. Repeat iron studies ordered. Vitamin B12 and folate ordered as well. 7. History of prostate cancer Follows with Dr. Bush with oncology as noted above. Diagnosed with prostate cancer stage IIa in 2015, completed radiation therapy in July 2015 and received LHRH agonist for treatment via Dr. Cooper with Urology. Not currently on any treatment, remains on observation. ? Continue outpatient follow-up. DVT prophylaxis: Heparin subcu CODE STATUS: Full code, verified Expected disposition: TBD Total clinical time spent by myself addressing the patient's medical issues, reviewing all the data, and collaborating with patient's care team: 55 minutes. Charges/Coding Visit Charges Inpatient E&M: 56619 Init Hosp L2
[2023-03-04] MEDS: Ceftriaxone 1 GM/50 ML BAG IV (14:30)
[2023-03-04 15:06] LABS: Reflex Troponin-HS? (from REC) Y
[2023-03-04 16:14] LABS: Troponin-I HS 12 pg/mL (3.0-78.0)
[2023-03-04] MEDS: Lactated Ringers 1,000 ML 75 ML IV (17:00)
[2023-03-04 17:11] LABS: Ferritin 92 ng/mL (26-388); Iron 18 ug/dL (65-175); Iron Binding Capacity,Total 263 ug/dL (250-450); PERCENT IRON SATURATION 6.8 % (15.0-55.0)
[2023-03-04] MEDS: Heparin Injection (Vial) 5,000 UNIT/ML VIAL 5000 UNIT SC (21:19)
[2023-03-05] VITALS (7 sets, daily range): BP systolic 148–186; BP diastolic 63–92; PULSE 75–92; RESP 12–18; TEMP 36–36.8; O2SAT 96–100
[2023-03-05] MEDS: Lactated Ringers 1,000 ML 75 ML IV (05:03)
[2023-03-05 08:18] LABS: Vitamin B12 > 2000 pg/mL (211-911)
--- NOTE | 2023-03-05 09:00 | US_ITS ---
STUDY: RENAL ULTRASOUND - COMPLETE REASON FOR EXAM: Male, 82 years old. r/o hydronephrosis TECHNIQUE: Ultrasound evaluation of the kidneys was performed with real-time and static nunez-scale imaging. COMPARISON: Comparison is made with prior study February 05, 2015. FINDINGS: RIGHT KIDNEY: Normal location of the right kidney, which is normal in size. The right kidney measures 11.3 cm x 6 cm x 6.9 cm. There is a normal cortex of the right kidney. The renal cortex measures 2.4 cm. 1.7 cm x 1.8 cm x 1.4 cm right renal cyst. There are no right renal calculi. There is moderate to severe right hydronephrosis and hydroureter. DISTAL RIGHT URETER: There is mild hydroureter of the distal right ureter. There is no demonstrated right ureterovesical junction calculus. There is a visualized right ureteral jet. LEFT KIDNEY: Normal location of the left kidney, which is normal in size. The left kidney measures 10.2 cm x 5.9 cm x 4.8 cm. There is a normal cortex of the left kidney. The renal cortex measures 1.9 cm. There is no left renal mass or cyst. There are no left renal calculi. There is moderate to severe left hydronephrosis and hydroureter. DISTAL LEFT URETER: There is mild hydroureter of the distal left ureter. There is no demonstrated left ureterovesical junction calculus. There is a visualized left ureteral jet. BLADDER: The distended urinary bladder has a volume of 460 ml. There is a normal wall thickness of the distended urinary bladder. There is no demonstrated mass within the urinary bladder. There is a 1.8 cm x 1.5 cm x 0.9 cm stone at the base of the bladder. US/Kidney and Bladder IMPRESSION: Moderate to severe degree of bilateral hydronephrosis and hydroureter. Right renal cyst. Bladder calculus. Electronically Signed: Gerson Watkins MD at 10:12 EDT ,
--- NOTE | 2023-03-05 10:16 | PCM.PN.HOSP ---
Reason for Visit Reason for Visit: Diagnoses Orthostatic hypotension (03/04/23) Subjective Subjective Patient feels he is urinating well, does feel slightly better today versus yesterday Objective Data Objective Data Vital Signs: Vital Signs Temp Pulse Resp BP Pulse Ox O2 Del Method 98.1 F 75 12 148/63 H 97 Room Air 03/05/23 03:10 03/05/23 03:10 03/05/23 03:10 03/05/23 03:10 03/05/23 07:55 03/05/23 07:55 Oxygen Delivery Method Room Air Weight: 78 kg Body Mass Index (BMI) 26.1 Intake & Output: Intake and Output for Last 24 Hours 03/03/23 03/04/23 03/05/23 23:59 23:59 23:59 Intake Total 750 / 1550 2993.75 / 2993.75 Balance 750 / 1550 2993.75 / 2993.75 Lab / Micro Data 03/05/23 11:30 03/05/23 11:35 Labs: Laboratory Results - last 24 hr 03/04/23 12:55: WBC 52.1 H*, RBC 3.52 L, Hgb 9.0 L, Hct 30.8 L, MCV 87.5, MCH 25.6 L, MCHC 29.2 L, RDW Std Deviation 56.0 H, RDW Coeff of Willie 18.0 H, Plt Count 305, MPV 9.5, Immature Gran % (Auto) 0.200, Neut % (Auto) 7.6 L, Lymph % (Auto) 89.0 H, [place] % (Auto) 2.3, Eos % (Auto) 0.5, Baso % (Auto) 0.4, Absolute Neuts (auto) 3.9, Absolute Lymphs (auto) 46.39 H, Nucleated RBC % 0, Diff Path Review May foll, Smudge Cells 2+, Sodium 142, Potassium 4.6, Chloride 110 H, Carbon Dioxide 26.0, Anion Gap 6, BUN 62 H, Creatinine 2.82 H, Estim Creat Clear Calc 20.13, Est GFR (MDRD) Af Amer 28 L, Est GFR (MDRD) Non-Af 23 L, BUN/Creatinine Ratio 22.0 H, Glucose 90, Calcium 9.2, Troponin I High Sens 12, B-Natriuretic Peptide 477.2 H 03/04/23 13:00: Urine Color Yellow, Urine Clarity Turbid, Urine pH 6.0, Ur Specific [place] 1.010, Urine Protein 100 H, Urine Glucose (UA) Normal, Urine Ketones Negative, Urine Occult Blood 50 H, Urine Nitrite Positive H, Urine Bilirubin Negative, Urine Urobilinogen Normal, Ur Leukocyte Esterase 500 H, Urine RBC 0 SEEN, Urine WBC >100 SEEN, Ur Squamous Epith Cells 0 SEEN, Urine Bacteria 0 SEEN, Urine Mucus 0 SEEN 03/04/23 15:48: Iron 18 L, TIBC 263, Iron Saturation 6.8 L, Ferritin 92, Troponin I High Sens 12, Vitamin B12 > 2000 H, Folate 22.60 Micro: Microbiology 03/04/23 13:00 Urine, Clean Catch Urine Culture - Preliminary Staphylococcus aureus Radiography Diagnostic Testing: Radiology Impression Chest X-Ray 03/04/23 12:59 IMPRESSION: No radiographic evidence of acute cardiopulmonary disease. Electronically Signed: Randy Coffey MD at 13:53 EDT , Brain CT 03/04/23 13:00 IMPRESSION: 1. No acute intracranial process. 2. Chronic involutional changes of the brain. Electronically Signed: Randy Coffey MD at 14:05 EDT , Renal Ultrasound 03/05/23 09:00 IMPRESSION: Moderate to severe degree of bilateral hydronephrosis and hydroureter. Right renal cyst. Bladder calculus. Electronically Signed: Gerson Watkins MD at 10:12 EDT , Physical Exam Narrative General: Alert, oriented, no apparent distress HEENT: Atraumatic, normocephalic Eyes: Anicteric, normal conjunctiva, extraocular movements grossly intact Neck: Supple Respiratory: Clear to auscultation bilaterally, normal respiratory effort Cardiovascular: Regular rate and rhythm GI: Soft, nontender, nondistended Extremities: No edema Musculoskeletal: Moving all extremities but does have right wrist in brace Neuro: No overt focal neurological deficits Skin: Has bruise under right thumbnail Psych: Cooperative Assessment & Plan Assessment/Plan (1) Orthostatic hypotension: PLAN: Plan Patient is an 82-year-old male with past medical history of heart failure with recovered ejection fraction, prostate cancer s/p radiation, iron deficiency anemia and CLL who presented to [facility] ED on 03/04/2023 with worsening dizziness. 1. Dizziness, orthostatic hypotension Positive orthostatic vital signs in the ED, blood pressure dropped about 20 points with standing. Orthostatic hypotension seems like most likely cause of his dizziness. May be secondary to overmedication. Does not seem consistent with BPPV or vertigo. Very low concern for intracranial etiology. CT brain without contrast in ED showed no acute intracranial process, chronic evolution of changes of the brain. Patient notably is on Coreg and Entresto for heart failure as noted below. ? Admit under observation status to PCU. We will give low-dose maintenance IV fluids through tomorrow morning. Recheck orthostatic vitals tomorrow. Hold home Coreg and Entresto for now, can likely restart Coreg tomorrow but would consider holding Entresto on discharge and can follow-up outpatient with cardiology to consider resuming at that time if needed. -03/05: Likely exacerbated by underlying infection, blood pressure support, PT evaluation, repeat orthostatic vital signs 2. AUGUSTO on CKD III Presumed prerenal AUGUSTO secondary to hypovolemia from possible overmedication as noted above. BUN 62, creatinine 2.82 on admit. Baseline creatinine appears to be around 1.3-1.6. ? Follow-up BMP tomorrow after IV fluids as noted above. Urine sodium and creatinine ordered to calculate FeNa. Lower concern for postobstructive etiology as patient reports good urine output, but will order renal/bladder ultrasound for completeness sake, especially given his history of prostate cancer as noted below. -03/05: Improved slightly from yesterday, Fena 2.3% and urine sodium 57, appears to be intrinsic in nature, especially given history of heart failure we will proceed cautiously with fluids, will consult nephrology. Patient with moderate to severe bilateral hydronephrosis and hydroureter with a bladder calculus. We will get postvoid to see if patient has any retention. No previous imaging available 3. Concern for UTI- found to have staph aureus UTI UA on admit with 500 leukocyte esterase, positive nitrates, greater than 100 WBCs, however no bacteria seen. Given 1 dose of IV ceftriaxone empirically in the ED. ? We will continue empiric ceftriaxone for now. Urine culture pending. -03/05: Growing Staph aureus in urine, Rocephin switched to vancomycin while awaiting sensitivities 4. CLL, severe leukocytosis Follows outpatient with Dr. Bush with Oncology, last known office visit was in February 2022. Diagnosed with CLL back in 2003, has not required therapy to this point. WBC count has consistently been in the 40s since 2019. WBC count of 52 on admit. May be slightly elevated secondary to UTI, otherwise likely close to patient's baseline. Afebrile on admit. ? Monitor CBC daily. Outpatient follow-up with oncology. -03/05: Continue to monitor white blood cell count 5. Heart failure with recovered ejection fraction Patient had echo from 2015 that showed an EF of 20% at that time. Has followed with [facility] cardiology since then. On review of [facility] records, patient had an echo in 09/2022 that showed an EF of 48%. He is on home Coreg 25 mg twice daily and Entresto 49-51 mg twice daily. Patient denies any recent medication changes that he is aware of. ? Holding home Coreg and Entresto for now as noted above. Given the patient's ejection fraction has recovered fairly well, may be reasonable to hold Entresto on discharge and monitor BP outpatient. Can follow-up with [facility] cardiology and determine if patient continues to need Entresto going forward. Can likely restart Coreg on discharge. -03/05: Daily weights, I's and O's, holding Entresto 6. Multifactorial normocytic anemia Previously diagnosed with iron deficiency anemia back in February 2021. Unclear if patient was taking iron supplementation for this. Hemoglobin 9.0 on admit, baseline hemoglobin appears to be around 10-11. No signs of bleeding. ? Monitor CBC daily. Repeat iron studies ordered. Vitamin B12 and folate ordered as well. -03/05: Ferritin and 90s but low iron level and saturation, suspect component of iron depletion but also chronic disease likely secondary to CKD. Folate within normal limits and B12 actually elevated, continue to monitor, no active blood loss appreciated 7. History of prostate cancer Follows with Dr. Bush with oncology as noted above. Diagnosed with prostate cancer stage IIa in 2015, completed radiation therapy in July 2015 and received LHRH agonist for treatment via Dr. Cooper with Urology. Not currently on any treatment, remains on observation. ? Continue outpatient follow-up. DVT prophylaxis: Heparin subcu CODE STATUS: Full code, verified Expected disposition: TBD Total clinical time spent by myself addressing the patient's medical issues, reviewing all the data, and collaborating with patient's care team: 37 minutes. Charges/Coding Visit Charges Inpatient E&M: 64208 Subs Hosp L2
[2023-03-05] MEDS: 0.9% Saline Lock 10 ML Syringe IV (10:18)
[2023-03-05] MEDS: Ceftriaxone 1 GM/50 ML BAG IV (10:18)
[2023-03-05] MEDS: Heparin Injection (Vial) 5,000 UNIT/ML VIAL 5000 UNIT SC ×2 (10:19→21:14)
[2023-03-05] MEDS: Vancomycin HCl 2,000 MG in 0.9% Normal Saline (500mL Bag) 500 ML 250 MG IV (11:31)
--- NOTE | 2023-03-05 11:45 | PCM.RX.CS ---
Consult Antibiotic Management Pharmacy has been consulted to manage selected antiobiotic: Vancomycin Type of Intervention Type of Consult: New start Suspected Infection Suspected Infection: Other (SA URINARY TRACT INFECTION) Prior Doses of Antibiotics Prior Doses of Antibiotics Received/Current Regimen: Vancomycin 2000 mg loading dose given 03/05/23 @ 1131 Microbiology Microbiology: Microbiology 03/04/23 13:00 Urine, Clean Catch Urine Culture - Preliminary Staphylococcus aureus Dosing Weight Weight used for dosin kg Estimated Creatinine Clearance Estimated Creatinine Clearance: ~20 Goal Trough Goal Trough: 15-20 mcg/mL Pharmacy Plan for Drug Dosing Pharmacy Plan for Drug Dosing: Vancomycin 2000 mg IV x 1 loading dose followed by Vancomycin 750 mg IV Q24H starting 03/06/23 @ 1100 with a trough prior to the 3rd dose. Pharmacy Service will continue to monitor and adjust dosing as required. Follow-Up Labs Follow-Up Labs: Trough: Vancomycin Date/Time Labs Ordered Labs to be done on [date and time ordered]: 03/07/23 @ 1030
[2023-03-05 11:49] LABS: Absolute Lymphocyte Count 46.25 X10^3/uL (0.83-4.51); Absolute Neutrophil Count 3.9 X10^3/uL (2.0-7.7); Basophil# 0.25 X10^3/uL; Basophil% 0.5 % (0-1); Eosinophil# 0.35 X10^3/uL; Eosinophils% 0.7 % (0-5); Hematocrit 29.2 % (40-54); Hemoglobin 8.5 g/dL (13.0-16.5); Lymphocyte # 46.25 X10^3/ul (0.83-4.51); Mean Corp Hgb Conc 29.1 g/dL (32-36); Mean Corpuscular Hgb 25.1 pg (27.0-32.0); Mean Corpuscular Volume 86.1 fL (80-94); Mean Platelet Vol. 9.4 fl (6.2-12.0); Monocyte# 1.09 X10^3/uL; Monocyte% 2.1 % (0-10); NRBC Flagged by Analyzer 0 % (0-5); Neutrophil # 3.87 X10^3/uL (2.7-7.7); Neutrophil % 7.4 % (47-70); POSITIVE COUNT YES; POSITIVE DIFFERENTIAL YES; POSITIVE MORPHOLOGY YES; Platelet Count 280 K/mm3 (150-450); RBC Distribution Width SD 55.7 fl (35.1-43.9); Red Blood Count 3.39 M/mm3 (4.6-6.2)
[2023-03-05 11:57] LABS: Differential Indicated SCAN CRITERIA MET
[2023-03-05 12:14] LABS: Anion Gap 7 (5-15); BUN 52 mg/dL (7-18); BUN/Creat Ratio 21.7 RATIO (10-20); Calcium,Total 8.6 mg/dL (8.5-10.1); Chloride 109 mmol/L (98-107); EST Glomerular Filtration Rate 28 mL/min (>60); Est Glom Filt Rate - Afr Amer 33 mL/min (>60); Estimated Creatinine Clearance 22.17 ml/min; Glucose 150 mg/dL (74-106); Potassium 3.9 mmol/L (3.5-5.1); Sodium Level 142 mmol/L (136-145)
[2023-03-05 13:19] LABS: Urine Sodium 57 mmol/L (Not Establ.)
--- NOTE | 2023-03-05 15:49 | CHAPLAIN ---
Type of Pastoral Visit _x__ Initial Visit ___ Follow-up Visit ___ On-call Visit ___ General Patient Visit ___ Spiritual Assessment ___ Family Conference ___ Bereavement ___ Rapid Response ___ Code Blue ___ Other (describe below) Pastoral Care Referral From _x__ Patient ___ Family ___ Nurse ___ Physician ___ Care Consultant ___ Field Operator ___ Other (describe below) Sacrament/Intervention _x__ Active listening ___ Anointing ___ Buddhism ___ Bereavement ___ Communion _x__ Dipika exploration ___ _x__ Life review _x__ Prayer ___ Reconciliation ___ Sacrament of Sick ___ Supportive presence ___ Wedding ___ Other (describe below) Pastoral Comments patient along with spouse and son are in the room; pt is talkative and gives current status; pt acknowledges desire for spiritual care support and 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
--- NOTE | 2023-03-05 16:59 | CASEMGMT ---
RAMONITA MARTINEZ in to complete RICCI form with patient. RAMONITA MARTINEZ explained RICCI form to patient. Patient voiced understanding and signed RICCI Form. RAMONITA MARTINEZ provided copy of signed RICCI form to patient, original filed in chart. Patient had no further questions or concerns at this time.
[2023-03-05] MEDS: Carvedilol 6.25 MG Tablet PO (17:21)
--- NOTE | 2023-03-05 22:05 | NURSING ---
voided in urinal 300cc clear yellow. bladder scanned for 353cc. hutchinson placed and bladder drained 450 cc clear yellow
[2023-03-06] VITALS (11 sets, daily range): BP systolic 140–178; BP diastolic 66–145; PULSE 71–93; RESP 16–18; TEMP 36.2–36.8; O2SAT 94–98; BMI 26.6
[2023-03-06 07:02] LABS: Absolute Lymphocyte Count 46.86 X10^3/uL (0.83-4.51); Absolute Neutrophil Count 5.1 X10^3/uL (2.0-7.7); Basophil# 0.11 X10^3/uL; Basophil% 0.2 % (0-1); Eosinophil# 0.38 X10^3/uL; Eosinophils% 0.7 % (0-5); Hematocrit 28.3 % (40-54); Hemoglobin 8.5 g/dL (13.0-16.5); Lymphocyte # 46.86 X10^3/ul (0.83-4.51); Lymphocyte % 87.2 % (19-41); Mean Corpuscular Hgb 25.7 pg (27.0-32.0); Mean Corpuscular Volume 85.5 fL (80-94); Mean Platelet Vol. 9.6 fl (6.2-12.0); Monocyte# 1.04 X10^3/uL; Monocyte% 1.9 % (0-10); NRBC Flagged by Analyzer 0 % (0-5); Neutrophil # 5.14 X10^3/uL (2.7-7.7); Neutrophil % 9.6 % (47-70); POSITIVE COUNT YES; POSITIVE DIFFERENTIAL YES; POSITIVE MORPHOLOGY YES; Platelet Count 265 K/mm3 (150-450); RBC Distribution Width CV 17.9 % (11.6-14.6); RBC Distribution Width SD 55.1 fl (35.1-43.9); Red Blood Count 3.31 M/mm3 (4.6-6.2)
[2023-03-06 07:09] LABS: Differential Indicated SCAN CRITERIA MET; White Blood Count 53.7 K/mm3 (4.4-11.0)
[2023-03-06 07:25] LABS: Anion Gap 5 (5-15); BUN 41 mg/dL (7-18); Calcium,Total 8.5 mg/dL (8.5-10.1); Chloride 111 mmol/L (98-107); Creatinine, Serum 1.95 mg/dL (0.70-1.30); EST Glomerular Filtration Rate 35 mL/min (>60); Est Glom Filt Rate - Afr Amer 42 mL/min (>60); Estimated Creatinine Clearance 27.28 ml/min; Glucose 109 mg/dL (74-106); Potassium 3.4 mmol/L (3.5-5.1); Sodium Level 142 mmol/L (136-145)
[2023-03-06 07:26] LABS: Differential Comment SCANNED
[2023-03-06] MEDS: Carvedilol 6.25 MG Tablet PO (10:11)
[2023-03-06] MEDS: Heparin Injection (Vial) 5,000 UNIT/ML VIAL 5000 UNIT SC ×2 (10:11→21:26)
[2023-03-06] MEDS: Atorvastatin Calcium 10 MG Tablet PO (10:11)
[2023-03-06] MEDS: Polyethylene Glycol 3350 17 GM PACKET PO (10:11)
[2023-03-06] MEDS: Iron Polysaccharide Complex 150 MG CAPSULE PO (10:11)
[2023-03-06] MEDS: Potassium Chloride Oral Tablet 20 MEQ PO (10:17)
[2023-03-06 10:21] LABS: Pathologist Review Reviewed
--- NOTE | 2023-03-06 10:30 | CASEMGMT ---
RAMONITA MARTINEZ Face to Face with patient for initial transition planning/care coordination assessment. RN CM introduced self and role at [facility]. Patient lying in bed, alert and oriented. Patient willing to participate in assessment and is able to answer all questions appropriately. Care providers, pharmacy, and demographics verified. Patient wishes to discharge home, denies need for home health at this time. Patient states he has no further needs or concerns at this time. CM to follow for discharge planning needs that may arise. PCP: Riccardo JEWELRY MODEL MAKER Specialists: Sterling senior business development analyst Stella; OrvilleMetallurgical SpecialistShahrzad Preferred Pharmacy: [facility] Insurance: [employer] Prescription Benefit: yes Living Will/HPOA: yes, Christine Ann LNOK: , son Living Arrangements: Patient lives with in a split level home with 4-8 steps with railing between levels. Patient states he is independent at home and able to ambulate stairs. Transportation: self, DME/HHC: Patient states he has shower chair, cane, grab bars, walker. No previous HHC or SNF. Disposition Plan: Patient to discharge home with family support and follow-up plans in place. Verito MIRANDA, RN, CM
[2023-03-06] MEDS: Tamsulosin HCl 0.4 MG Capsule PO (10:37)
[2023-03-06] MEDS: Vancomycin HCl 750 MG in 0.9% Normal Saline (250mL Bag) 250 ML 250 MG IV (12:05)
[2023-03-06 13:09] LABS: Pathologist Review Reviewed
[2023-03-06 13:14] LABS: Pathologist Review Reviewed
--- NOTE | 2023-03-06 14:03 | PCM.DC ---
Discharge Instructions Diet Discharge Diet: No restrictions Activity Discharge Activity: Return to Normal Activity Follow Up Care Test Results: Test results from this visit will be discussed in further detail at your follow-up appointment, if applicable. Discharge Plan Admission Admit Date/Time: 03/05/23 16:41 Primary Reason for Your Visit: Dizziness, urinary tract infection Attending Provider: Laura Bowman Primary Care Provider: German Gu NP Consulting Providers: Waylon Sanches Instructions Patient Instructions: Indwelling Urinary Catheter Dc, ED Fall Prevention Additional Instructions / Restrictions: DISCHARGE INSTRUCTIONS PLEASE READ *Please take this with you to your next doctors appointment* -You will be discharged on 7 days of ciprofloxacin 250 mg every 12 hours -You will also be discharged on tamsulosin as well as iron supplementation -Please follow-up with urology upon discharge. Please call their office to schedule hospital follow-up appointment upon discharge. -Would recommend lab work (BMP) to check your kidney function in 2 to 3 days through your primary care physician's office. Please call their office upon discharge to obtain order for lab work. -Resume Entresto in 1 week -Would recommend against nortriptyline as it can contribute to orthostatic hypotension, urinary retention, confusion, and falls -Please call your primary care provider's office upon discharge to schedule a hospital follow up within 1 week. -For any concerning signs or symptoms please call 911 or proceed to the nearest emergency department Discharge Orders/Prescriptions Prescriptions: New ciprofloxacin HCl [Cipro] 250 mg tablet 250 mg PO Q12H 7 Days Qty: 14 0RF Rx Instructions: Starting 03/07 polysaccharide iron complex [Ferrex 150] 150 mg iron Capsule 150 mg PO DAILY Qty: 30 0RF tamsulosin 0.4 mg Capsule 0.4 mg PO DAILY 30 Days Qty: 30 0RF Continued zinc acetate 50 mg (zinc) capsule 50 mg PO DAILY multivitamin [Daily Multiple] 1 EACH tablet 1 ea PO DAILY Patient Comments: SUPPLEMENT cholecalciferol (vitamin D3) [Vitamin D3] 1,000 UNIT capsule 1,000 unit PO DAILY carvedilol 25 MG tablet 25 mg PO BID Osteo Bi-Flex Triple Strength 1 EACH tablet 1 ea PO DAILY atorvastatin 10 mg tablet 10 mg PO DAILY Held Entresto 49-51 mg tablet 1 tab PO BID Hold Instructions: Resume on 03/15/23. Discontinued nortriptyline 50 mg capsule 50 mg PO BID Referrals / Follow Up: Kenneth,Long, MD [Med Staff - Active Staff] - Within 1 Week (New urinary retention with Hood catheter placement) German Gu NP, SEWER SEPARATION DESIGNER-C [Primary Care Provider] - Within 1 Week Disposition Disposition (needs filled in before D/C Order can be placed): Home, Self Care
--- NOTE | 2023-03-06 14:09 | PCM.DC.SUM ---
Providers Date of Admission: 03/05/23 Date of Discharge: 03/06/23 Primary Care Physician: RENETTA Justice Reason For Visit: ORTHOSTATIC HYPOTENSION Diagnosis Discharge Diagnosis (1) Orthostatic hypotension: Status: Acute Code(s): I95.1 - Orthostatic hypotension (2) Acute kidney injury: Status: Acute Code(s): N17.9 - Acute kidney failure, unspecified (3) CLL (chronic lymphocytic leukemia): Status: Chronic Code(s): C91.10 - Chronic lymphocytic leukemia of B-cell type not having achieved remission (4) CKD (chronic kidney disease): Status: Chronic Code(s): N18.9 - Chronic kidney disease, unspecified (5) UTI (urinary tract infection): Status: Acute Code(s): N39.0 - Urinary tract infection, site not specified (6) Urinary retention: Status: Acute Code(s): R33.9 - Retention of urine, unspecified Plan 1. Dizziness, orthostatic hypotension- resolved 2. AUGUSTO on CKD III- improving, intrinsic injury secondary to urinary retention leading to bilateral hydronephrosis 3. staph aureus UTI 4. CLL, severe leukocytosis 5. 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 Multifactorial normocytic anemia 7. History of prostate cancer 8. Urinary retention Medications at Discharge Home Medications multivitamin (Daily Multiple tablet) 1 ea PO DAILY 03/15/15 cholecalciferol (vitamin D3) 25 mcg (1,000 unit) capsule (Vitamin D3) 1,000 unit PO DAILY 08/09/16 carvedilol 25 mg tablet 25 mg PO BID 08/24/16 glucosamine 750 [id number] no1 644 mg-C 30 mg-gilson 1 mg tablet (Osteo Bi-Flex Triple Strength) 1 ea PO DAILY 08/24/16 sacubitril 49 mg-valsartan 51 mg tablet (Entresto) 1 tab PO BID 08/24/22 zinc acetate 50 mg (zinc) capsule 50 mg PO DAILY 08/24/22 atorvastatin 10 mg tablet 10 mg PO DAILY 03/04/23 ciprofloxacin HCl 250 mg tablet (Cipro) 250 mg PO Q12H 7 days #14 tabs 03/06/23 polysaccharide iron complex 150 mg iron capsule (Ferrex) 150 mg PO DAILY #30 caps 03/06/23 tamsulosin 0.4 mg capsule 0.4 mg PO DAILY 30 days #30 caps 03/06/23 Hospital Course Summary of Care Provided Minutes Spent on Discharge: 35 Hospital Course: BIGG LONG, is a 82 M with past medical history of heart failure with recovered ejection fraction, prostate cancer s/p radiation, iron deficiency anemia and CLL who presented to [facility] ED on 03/04/2023 with worsening dizziness. He was found to have orthostatic hypotension and AUGUSTO with additional concern for UTI. He had his home blood pressure medications held, IV fluids, was found to have Staph aureus UTI and retroperitoneal ultrasound demonstrated bladder stone and bilateral hydroureter and hydronephrosis. Patient had postvoid with retention and straight cath x1 and repeat in the evening showed continued retention, Hood placement with an additional 450 cc out, patient improved with Hood placement. Unclear if he had UTI leading to worsening urinary retention or if urinary retention led to UTI. We will start tamsulosin and continue to hold nortriptyline as this may cause or contribute to his urinary retention, of note does have history of prostate cancer, will DC with Hood and advise close follow-up with urology for further eval and management. Blood cultures ordered by infectious disease physician prior to discharge, discussed and patient does not need to remain inpatient if stable and these can be followed peripherally. Discharge instructions as follows: -You will be discharged on 7 days of ciprofloxacin 250 mg every 12 hours -You will also be discharged on tamsulosin as well as iron supplementation -Please follow-up with urology upon discharge. Please call their office to schedule hospital follow-up appointment upon discharge. -Would recommend lab work (BMP) to check your kidney function in 2 to 3 days through your primary care physician's office. Please call their office upon discharge to obtain order for lab work. -Resume Entresto in 1 week -Would recommend against nortriptyline as it can contribute to orthostatic hypotension, urinary retention, confusion, and falls -Please call your primary care provider's office upon discharge to schedule a hospital follow up within 1 week. -For any concerning signs or symptoms please call 911 or proceed to the nearest emergency department Physical Exam Narrative General: Alert, oriented, no apparent distress HEENT: Atraumatic, normocephalic Eyes: Anicteric, normal conjunctiva, extraocular movements grossly intact Neck: Supple Respiratory: Clear to auscultation bilaterally, normal respiratory effort Cardiovascular: Regular rate and rhythm GI: Soft, nontender, nondistended Extremities: No edema Musculoskeletal: Moving all extremities but does have right wrist in brace Neuro: No overt focal neurological deficits Skin: Has bruise under right thumbnail Psych: Cooperative Weight / BMI Weight Weight: 79.3 kg Body Mass Index (BMI) 26.6 ABG / Lab / Microbiology Data 03/06/23 05:57 03/06/23 05:57 Laboratory: Laboratory Results - last 24 hr 03/04/23 12:55: Diff Path Review Reviewed 03/05/23 11:30: Diff Path Review Reviewed 03/06/23 05:57: WBC 53.7 H*, RBC 3.31 L, Hgb 8.5 L, Hct 28.3 L, MCV 85.5, MCH 25.7 L, MCHC 30.0 L, RDW Std Deviation 55.1 H, RDW Coeff of Willie 17.9 H, Plt Count 265, MPV 9.6, Immature Gran % (Auto) 0.400, Neut % (Auto) 9.6 L, Lymph % (Auto) 87.2 H, [place] % (Auto) 1.9, Eos % (Auto) 0.7, Baso % (Auto) 0.2, Absolute Neuts (auto) 5.1, Absolute Lymphs (auto) 46.86 H, Nucleated RBC % 0, Differential Comment SCANNED, Diff Path Review Reviewed, Sodium 142, Potassium 3.4 L, Chloride 111 H, Carbon Dioxide 26.0, Anion Gap 5, BUN 41 H, Creatinine 1.95 H, Estim Creat Clear Calc 27.28, Est GFR (MDRD) Af Amer 42 L, Est GFR (MDRD) Non-Af 35 L, BUN/Creatinine Ratio 21.0 H, Glucose 109 H, Calcium 8.5 Microbiology: Microbiology 03/04/23 13:00 Urine, Clean Catch Urine Culture - Final Staphylococcus aureus D/C Instructions Discharge Diet: No restrictions Meaningful Use Info Meaningful Use Diagnoses (Choose all that apply): None applicable Discharge Plan Admission Admit Date/Time: 03/05/23 16:41 Primary Reason for Your Visit: Dizziness, urinary tract infection Attending Provider: Laura Bowman Primary Care Provider: German Gu CHIEF CONTRACT OFFICER Consulting Providers: Waylon Sanches Instructions Patient Instructions: Indwelling Urinary Catheter Dc, ED Fall Prevention Additional Instructions / Restrictions: DISCHARGE INSTRUCTIONS PLEASE READ *Please take this with you to your next doctors appointment* -You will be discharged on 7 days of ciprofloxacin 250 mg every 12 hours -You will also be discharged on tamsulosin as well as iron supplementation -Please follow-up with urology upon discharge. Please call their office to schedule hospital follow-up appointment upon discharge. -Would recommend lab work (BMP) to check your kidney function in 2 to 3 days through your primary care physician's office. Please call their office upon discharge to obtain order for lab work. -Resume Entresto in 1 week -Would recommend against nortriptyline as it can contribute to orthostatic hypotension, urinary retention, confusion, and falls -Please call your primary care provider's office upon discharge to schedule a hospital follow up within 1 week. -For any concerning signs or symptoms please call 911 or proceed to the nearest emergency department Discharge Orders/Prescriptions Prescriptions: New ciprofloxacin HCl [Cipro] 250 mg tablet 250 mg PO Q12H 7 Days Qty: 14 0RF Rx Instructions: Starting 03/07 polysaccharide iron complex [Ferrex 150] 150 mg iron Capsule 150 mg PO DAILY Qty: 30 0RF tamsulosin 0.4 mg Capsule 0.4 mg PO DAILY 30 Days Qty: 30 0RF Continued zinc acetate 50 mg (zinc) capsule 50 mg PO DAILY multivitamin [Daily Multiple] 1 EACH tablet 1 ea PO DAILY Patient Comments: SUPPLEMENT cholecalciferol (vitamin D3) [Vitamin D3] 1,000 UNIT capsule 1,000 unit PO DAILY carvedilol 25 MG tablet 25 mg PO BID Osteo Bi-Flex Triple Strength 1 EACH tablet 1 ea PO DAILY atorvastatin 10 mg tablet 10 mg PO DAILY Held Entresto 49-51 mg tablet 1 tab PO BID Hold Instructions: Resume on 03/15/23. Discontinued nortriptyline 50 mg capsule 50 mg PO BID Referrals / Follow Up: Henry Cooper MD [Med Staff - Active Staff] - Within 1 Week (New urinary retention with Hood catheter placement) German Gu NP, CHIEF CONTRACT OFFICER-C [Primary Care Provider] - Within 1 Week Disposition Disposition (needs filled in before D/C Order can be placed): Home, Self Care Charges/Coding Visit Charges Inpatient E&M: 80760 Disch Hosp >30min
[2023-03-06] MEDS: Ondansetron 4 MG/2 ML Vial IV (15:28)
[2023-03-06] MEDS: Carvedilol 12.5 MG Tablet PO (16:11)
--- NOTE | 2023-03-06 16:42 | PN.HOSP_ITS ---
Reason for Visit Reason for Visit: Diagnoses Chronic lymphocytic leukemia of B-cell type not having achieved remission (02/12 08/03) Orthostatic hypotension (03/05/23) Acute kidney failure, unspecified (03/05/23) Chronic kidney disease, unspecified (03/05/23) Urinary tract infection, site not specified (03/05/23) Retention of urine, unspecified (03/05/23) Subjective Subjective Patient had been doing better earlier in the day but feeling a little bit unsteady and had an episode of emesis but patient very poor at describing any other associated symptoms or problems Objective Data Objective Data Vital Signs: Vital Signs Temp Pulse Resp BP Pulse Ox O2 Del Method 98.2 F 74 16 145/73 H 94 Room Air 03/06/23 16:09 03/06/23 16:09 03/06/23 16:09 03/06/23 16:09 03/06/23 16:09 03/06/23 16:09 Oxygen Delivery Method Room Air Weight: 79.3 kg Body Mass Index (BMI) 26.6 Intake & Output: Intake and Output for Last 24 Hours 03/04/23 03/05/23 03/06/23 23:59 23:59 23:59 Intake Total 750 / 1550 4032.08 / 4032.08 1185 / 1185 Output Total 1150 / 1150 2650 / 2650 Balance 750 / 1550 2882.08 / 2882.08 -1465 / -1465 Lab / Micro Data 03/06/23 05:57 03/06/23 05:57 Labs: Laboratory Results - last 24 hr 03/04/23 12:55: Diff Path Review Reviewed 03/05/23 11:30: Diff Path Review Reviewed 03/06/23 05:57: WBC 53.7 H*, RBC 3.31 L, Hgb 8.5 L, Hct 28.3 L, MCV 85.5, MCH 25.7 L, MCHC 30.0 L, RDW Std Deviation 55.1 H, RDW Coeff of Willie 17.9 H, Plt Count 265, MPV 9.6, Immature Gran % (Auto) 0.400, Neut % (Auto) 9.6 L, Lymph % (Auto) 87.2 H, [place] % (Auto) 1.9, Eos % (Auto) 0.7, Baso % (Auto) 0.2, Absolute Neuts (auto) 5.1, Absolute Lymphs (auto) 46.86 H, Nucleated RBC % 0, Differential Comment SCANNED, Diff Path Review Reviewed, Sodium 142, Potassium 3.4 L, Chloride 111 H, Carbon Dioxide 26.0, Anion Gap 5, BUN 41 H, Creatinine 1.95 H, Estim Creat Clear Calc 27.28, Est GFR (MDRD) Af Amer 42 L, Est GFR (MDRD) Non-Af 35 L, BUN/Creatinine Ratio 21.0 H, Glucose 109 H, Calcium 8.5 Micro: Microbiology 03/04/23 13:00 Urine, Clean Catch Urine Culture - Final Staphylococcus aureus Physical Exam Narrative General: Alert, no acute distress HEENT: Atraumatic, normocephalic Eyes: Anicteric, normal conjunctiva, extraocular movements grossly intact Neck: Supple Respiratory: Clear to auscultation bilaterally, normal respiratory effort Cardiovascular: Regular rate GI: Soft, nontender, nondistended Extremities: No edema Musculoskeletal: Moving all extremities Neuro: No overt focal neurological deficits Skin: No rashes appreciated Psych: Cooperative Assessment & Plan Assessment/Plan (1) Orthostatic hypotension: PLAN: Plan Patient is an 82-year-old male with past medical history of heart failure with recovered ejection fraction, prostate cancer s/p radiation, iron deficiency anemia and CLL who presented to [facility] ED on 03/04/2023 with worsening dizziness. 1. Dizziness, orthostatic hypotension Positive orthostatic vital signs in the ED, blood pressure dropped about 20 points with standing. Orthostatic hypotension seems like most likely cause of his dizziness. May be secondary to overmedication. Does not seem consistent with BPPV or vertigo. Very low concern for intracranial etiology. CT brain without contrast in ED showed no acute intracranial process, chronic evolution of changes of the brain. Patient notably is on Coreg and Entresto for heart failure as noted below. ? Admit under observation status to PCU. We will give low-dose maintenance IV fluids through tomorrow morning. Recheck orthostatic vitals tomorrow. Hold home Coreg and Entresto for now, can likely restart Coreg tomorrow but would consider holding Entresto on discharge and can follow-up outpatient with cardiology to consider resuming at that time if needed. -03/05: Likely exacerbated by underlying infection, blood pressure support, PT evaluation, repeat orthostatic vital signs -03/06: Patient repeat orthostats which were not overly impressive and patient actually was hypertensive, suspect this is all still due to resolving UTI and AUGUSTO, will continue present management and have patient work with [facility] tomorrow 2. AUGUSTO on CKD III with bilateral hydronephrosis secondary to urinary retention Presumed prerenal AUGUSTO secondary to hypovolemia from possible overmedication as noted above. BUN 62, creatinine 2.82 on admit. Baseline creatinine appears to be around 1.3-1.6. ? Follow-up BMP tomorrow after IV fluids as noted above. Urine sodium and creatinine ordered to calculate FeNa. Lower concern for postobstructive etiology as patient reports good urine output, but will order renal/bladder ultrasound for completeness sake, especially given his history of prostate cancer as noted below. -03/05: Improved slightly from yesterday, Fena 2.3% and urine sodium 57, appears to be intrinsic in nature, especially given history of heart failure we will proceed cautiously with fluids, will consult nephrology. Patient with moderate to severe bilateral hydronephrosis and hydroureter with a bladder calculus. We will get postvoid to see if patient has any retention. No previous imaging available -03/06: Patient retaining urine x2, Hood catheter placed last night and is improving, started on tamsulosin, treat underlying UTI, will likely need to DC with Hood catheter and outpatient follow-up 3. Concern for UTI- found to have staph aureus UTI UA on admit with 500 leukocyte esterase, positive nitrates, greater than 100 WBCs, however no bacteria seen. Given 1 dose of IV ceftriaxone empirically in the ED. ? We will continue empiric ceftriaxone for now. Urine culture pending. -03/05: Growing Staph aureus in urine, Rocephin switched to vancomycin while awaiting sensitivities -03/06: Blood cultures added by infectious disease. Also switch to Cipro 200 twice daily based on sensitivities and kidney function 4. CLL, severe leukocytosis Follows outpatient with Dr. Bush with Oncology, last known office visit was in February 2022. Diagnosed with CLL back in 2003, has not required therapy to this point. WBC count has consistently been in the 40s since 2019. WBC count of 52 on admit. May be slightly elevated secondary to UTI, otherwise likely close to patient's baseline. Afebrile on admit. ? Monitor CBC daily. Outpatient follow-up with oncology. -03/05: Continue to monitor white blood cell count -03/06: Patient follows with oncology on outpatient basis 5. Heart failure with recovered ejection fraction Patient had echo from 2015 that showed an EF of 20% at that time. Has followed with [facility] cardiology since then. On review of [facility] records, patient had an echo in 09/2022 that showed an EF of 48%. He is on home Coreg 25 mg twice daily and Entresto 49-51 mg twice daily. Patient denies any recent medication changes that he is aware of. ? Holding home Coreg and Entresto for now as noted above. Given the patient's ejection fraction has recovered fairly well, may be reasonable to hold Entresto on discharge and monitor BP outpatient. Can follow-up with [facility] cardiology and determine if patient continues to need Entresto going forward. Can likely restart Coreg on discharge. -03/05: Daily weights, I's and O's, holding Entresto 6. Multifactorial normocytic anemia Previously diagnosed with iron deficiency anemia back in February 2021. Unclear if patient was taking iron supplementation for this. Hemoglobin 9.0 on admit, baseline hemoglobin appears to be around 10-11. No signs of bleeding. ? Monitor CBC daily. Repeat iron studies ordered. Vitamin B12 and folate ordered as well. -03/05: Ferritin and 90s but low iron level and saturation, suspect component of iron depletion but also chronic disease likely secondary to CKD. Folate within normal limits and B12 actually elevated, continue to monitor, no active blood loss appreciated 7. History of prostate cancer Follows with Dr. Bush with oncology as noted above. Diagnosed with prostate cancer stage IIa in 2015, completed radiation therapy in July 2015 and received LHRH agonist for treatment via Dr. Cooper with Urology. Not currently on any treatment, remains on observation. ? Continue outpatient follow-up. DVT prophylaxis: Heparin subcu CODE STATUS: Full code, verified Expected disposition: TBD Total clinical time spent by myself addressing the patient's medical issues, reviewing all the data, and collaborating with patient's care team: 37 minutes. Charges/Coding Visit Charges Inpatient E&M: 91336 Subs Hosp L2
[2023-03-06] MEDS: 0.9% Normal Saline (1000mL) 1,000 ML 50 ML IV (17:49)
[2023-03-06] MEDS: Ciprofloxacin 200 MG/100 ML BAG 100 MG IV (21:23)
[2023-03-07 03:26] VITALS: BP 170/70; PULSE 72; RESP 16; TEMP 36.1; O2SAT 96
[2023-03-07 03:51] VITALS: BMI 25.7
[2023-03-07 06:19] LABS: Absolute Lymphocyte Count 49.61 X10^3/uL (0.83-4.51); Absolute Neutrophil Count 6.1 X10^3/uL (2.0-7.7); Basophil# 0.14 X10^3/uL; Basophil% 0.2 % (0-1); Eosinophil# 0.34 X10^3/uL; Eosinophils% 0.6 % (0-5); Hematocrit 29.9 % (40-54); Hemoglobin 8.9 g/dL (13.0-16.5); Lymphocyte # 49.61 X10^3/ul (0.83-4.51); Lymphocyte % 85.1 % (19-41); Mean Corp Hgb Conc 29.8 g/dL (32-36); Mean Corpuscular Hgb 25.7 pg (27.0-32.0); Mean Corpuscular Volume 86.4 fL (80-94); Mean Platelet Vol. 9.6 fl (6.2-12.0); Monocyte% 3.1 % (0-10); NRBC Flagged by Analyzer 0 % (0-5); Neutrophil # 6.14 X10^3/uL (2.7-7.7); Neutrophil % 10.5 % (47-70); POSITIVE COUNT YES; POSITIVE DIFFERENTIAL YES; POSITIVE MORPHOLOGY YES; Platelet Count 292 K/mm3 (150-450); RBC Distribution Width SD 55.8 fl (35.1-43.9); Red Blood Count 3.46 M/mm3 (4.6-6.2)
[2023-03-07 06:42] LABS: Anion Gap 7 (5-15); BUN 31 mg/dL (7-18); BUN/Creat Ratio 17.9 RATIO (10-20); Calcium,Total 8.5 mg/dL (8.5-10.1); Chloride 110 mmol/L (98-107); Creatinine, Serum 1.73 mg/dL (0.70-1.30); EST Glomerular Filtration Rate 40 mL/min (>60); Est Glom Filt Rate - Afr Amer 49 mL/min (>60); Estimated Creatinine Clearance 30.75 ml/min; Glucose 103 mg/dL (74-106); Potassium 3.7 mmol/L (3.5-5.1); Sodium Level 143 mmol/L (136-145)
[2023-03-07 06:45] LABS: Differential Indicated SCAN CRITERIA MET; White Blood Count 58.3 K/mm3 (4.4-11.0)
[2023-03-07 07:22] LABS: Differential Comment SCANNED
[2023-03-07] MEDS: Tamsulosin HCl 0.4 MG Capsule PO (09:00)
[2023-03-07] MEDS: Carvedilol 12.5 MG Tablet PO ×2 (09:00→18:04)
[2023-03-07] MEDS: Iron Polysaccharide Complex 150 MG CAPSULE PO (09:01)
[2023-03-07] MEDS: Heparin Injection (Vial) 5,000 UNIT/ML VIAL 5000 UNIT SC ×2 (09:01→22:53)
[2023-03-07] MEDS: Atorvastatin Calcium 10 MG Tablet PO (09:01)
[2023-03-07 09:30] VITALS: BP 160/68; PULSE 81; RESP 16; TEMP 36.6; O2SAT 97
[2023-03-07] MEDS: Ciprofloxacin 200 MG/100 ML BAG 100 MG IV ×2 (10:03→22:52)
[2023-03-07 11:25] LABS: AST(SGOT) 17 U/L (15-37); Alanine Aminotransfer ALT/SGPT 16 U/L (16-61); Albumin, Serum 2.6 g/dL (3.2-5.0); Alkaline Phosphatase 89 U/L (45-117); Globulin 2.8 g/dL (2.2-4.2); Magnesium 1.9 mg/dL (1.6-2.6); Phosphorus 2.9 mg/dL (2.5-4.9); Protein, Total 5.4 g/dL (6.4-8.2); Thyroid Stim Hormone (TSH) 4.48 uIU/mL (0.358-3.74)
--- NOTE | 2023-03-07 11:44 | PN.HOSP_ITS ---
Reason for Visit Reason for Visit: Diagnoses Chronic lymphocytic leukemia of B-cell type not having achieved remission (02/12 08/03) Orthostatic hypotension (03/05/23) Acute kidney failure, unspecified (03/05/23) Chronic kidney disease, unspecified (03/05/23) Urinary tract infection, site not specified (03/05/23) Retention of urine, unspecified (03/05/23) Subjective Subjective Patient reports still intermittently having a feeling of unsteadiness, patient has a very difficult time describing this feeling but does not seem to be necessarily lightheaded and said sometimes he will be looking at something and it will appear to be oscillating [id number] and it will take a minute before everything stays still and he will get nauseous sometimes and can happen when standing or sitting down he said this has been going on for a week and progress ively worsening and is what brought him to the hospital more so than a dizziness going from sitting to standing. Objective Data Objective Data Vital Signs: Vital Signs Temp Pulse Resp BP Pulse Ox O2 Del Method 97.8 F 81 16 160/68 H 97 Room Air 03/07/23 09:30 03/07/23 09:30 03/07/23 09:30 03/07/23 09:30 03/07/23 09:30 03/07/23 09:30 Oxygen Delivery Method Room Air Weight: 76.6 kg Body Mass Index (BMI) 25.7 Intake & Output: Intake and Output for Last 24 Hours 03/05/23 03/06/23 03/07/23 23:59 23:59 23:59 Intake Total 4032.08 / 4032.08 2405 / 2645 940 / 940 Output Total 1150 / 1150 3450 / 4150 2049 / 2049 Balance 2882.08 / 2882.08 -1045 / -1505 -1110 / -1110 Lab / Micro Data 03/07/23 05:17 03/07/23 05:17 Labs: Laboratory Results - last 24 hr 03/05/23 11:30: Diff Path Review Reviewed 03/06/23 05:57: Diff Path Review Reviewed 03/07/23 05:17: WBC 58.3 H*, RBC 3.46 L, Hgb 8.9 L, Hct 29.9 L, MCV 86.4, MCH 25.7 L, MCHC 29.8 L, RDW Std Deviation 55.8 H, RDW Coeff of Willie 18.0 H, Plt Coun t 292, MPV 9.6, Immature Gran % (Auto) 0.500, Neut % (Auto) 10.5 L, Lymph % (Auto) 85.1 H, [place] % (Auto) 3.1, Eos % (Auto) 0.6, Baso % (Auto) 0.2, Absolute Neuts (auto) 6.1, Absolute Lymphs (auto) 49.61 H, Nucleated RBC % 0, Differ ential Comment SCANNED, Diff Path Review September foll, Sodium 143, Potassium 3.7, Chloride 110 H, Carbon Dioxide 26.0, Anion Gap 7, BUN 31 H, Creatinine 1.73 H, Estim Creat Clear Calc 30.75, Est GFR (MDRD) Af Amer 49 L, Est GFR (MDRD) Non-Af 40 L, BUN/Creatinine Ratio 17.9, Glucose 103, Calcium 8.5, Phosphorus 2.9, Magnesium 1.9, Total Bilirubin 0.30, Direct Bilirubin 0.10, AST 17, ALT 16, Alkaline Phosphatase 89, C-React Prot Ext Range 15.50 H, Total Protein 5.4 L, Albumin 2.6 L, Globulin 2.8, TSH 4.48 H, Free T4 1.10 Micro: Microbiology 03/04/23 13:00 Urine, Clean Catch Urine Culture - Final Staphylococcus aureus Physical Exam Narrative General: Alert, oriented, no apparent distress HEENT: Atraumatic, normocephalic Eyes: Anicteric, normal conjunctiva, extraocular movements intact, pupils equal Neck: Supple Respiratory: Clear to auscultation bilaterally, normal respiratory effort Cardiovascular: Regular rate and rhythm GI: Soft, nontender, nondistended Extremities: No edema Musculoskeletal: Strength 5 out of 5 in right upper extremity, 5 out of 5 left upper extremity, 5 out of 5 right lower extremity, 5 out of 5 left lower extremity Neuro: No overt focal neurological deficits, cranial nerves II through XII intact, [id number] without significant difficulty bilaterally Skin: No rashes appreciated Psych: Cooperative Assessment & Plan Assessment/Plan (1) Orthostatic hypotension: PLAN: Plan Patient is an 82-year-old male with past medical history of heart failure with recovered ejection fraction, prostate cancer s/p radiation, iron deficiency anemia and CLL who presented to [facility] ED on 03/04/2023 with worsening dizziness. 1. Dizziness, orthostatic hypotension, feeling of being off balance Positive orthostatic vital signs in the ED, blood pressure dropped about 20 poi nts with standing. Orthostatic hypotension seems like most likely cause of his dizziness. May be secondary to overmedication. Does not seem consistent with BPPV or vertigo. Very low concern for intracranial etiology. CT brain without contrast in ED showed no acute intracranial process, chronic evolution of changes of the brain. Patient notably is on Coreg and Entresto for heart failure as noted below. ? Admit under observation status to PCU. We will give low-dose maintenance IV fluids through tomorrow morning. Recheck orthostatic vitals tomorrow. Hold home Coreg and Entresto for now, can likely restart Coreg tomorrow but would consider holding Entresto on discharge and can follow-up outpatient with cardiology to consider resuming at that time if needed. -03/05: Likely exacerbated by underlying infection, blood pressure support, PT evaluation, repeat orthostatic vital signs -03/06: Patient repeat orthostats which were not overly impressive and patient actually was hypertensive, suspect this is all still due to resolving UTI and AUGUSTO, will continue present management and have patient work with physical therapy tomorrow -03/07: Still has this feeling of being off balance that is affecting his ambulation and makes him sick, patient has difficult time describing this, will obtain further lab work-up and will attempt to obtain an MRI if pacemaker is compatible. Pending work-up may need neurology involvement if still having symptoms and no other underlying etiology found. Could be inner ear in nature but the way patient describes symptoms are not necessarily classic for that but are certainly not classic for orthostatic hypotension. Telemetry reviewed and patient does get intermittent PVCs but does not seem to string together and associated with his feeling unsteady this 2. AUGUSTO on CKD III with bilateral hydronephrosis secondary to urinary retention Presumed prerenal AUGUSTO secondary to hypovolemia from possible overmedication as noted above. BUN 62, creatinine 2.82 on admit. Baseline creatinine appears to be around 1.3-1.6. ? Follow-up BMP tomorrow after IV fluids as noted above. Urine sodium and creatinine ordered to calculate FeNa. Lower concern for postobstructive etiology as patient reports good urine output, but will order renal/bladder ultrasound for completeness sake, especially given his history of prostate cancer as noted below. -03/05: Improved slightly from yesterday, Fena 2.3% and urine sodium 57, appears to be intrinsic in nature, especially given history of heart failure we will proceed cautiously with fluids, will consult nephrology. Patient with moderate to severe bilateral hydronephrosis and hydroureter with a bladder calculus. We will get postvoid to see if patient has any retention. No previous imaging available -03/06: Patient retaining urine x2, Hood catheter placed last night and is improving, started on tamsulosin, treat underlying UTI, will likely need to DC with Hood catheter and outpatient follow-up -03/07: Continues to improve 3. Concern for UTI- found to have staph aureus UTI UA on admit with 500 leukocyte esterase, positive nitrates, greater than 100 WBCs, however no bacteria seen. Given 1 dose of IV ceftriaxone empirically in the ED. ? We will continue empiric ceftriaxone for now. Urine culture pending. -03/05: Growing Staph aureus in urine, Rocephin switched to vancomycin while awaiting sensitivities -03/06: Blood cultures added by infectious disease. Also switch to Cipro 200 twice daily based on sensitivities and kidney function -03/07: Good urine output, continue antibiotics 4. CLL, severe leukocytosis Follows outpatient with Dr. Bush with Oncology, last known office visit was in February 2022. Diagnosed with CLL back in 2003, has not required therapy to this point. WBC count has consistently been in the 40s since 2019. WBC count of 52 on admit. May be slightly elevated secondary to UTI, otherwise likely close to patient's baseline. Afebrile on admit. ? Monitor CBC daily. Outpatient follow-up with oncology. 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 Heart failure with recovered ejection fraction Patient had echo from 2016 that showed an EF of 20% at that time. Has followed with [facility] cardiology since then. On review [facility], patient had an echo in 09/2022 that showed an EF of 48%. He is on home Coreg 25 mg twice daily and Entresto 49-51 mg twice daily. Patient denies any recent medication changes that he is aware of. ? Holding home Coreg and Entresto for now as noted above. Given the patient's ejection fraction has recovered fairly well, may be reasonable to hold Entresto on discharge and monitor BP outpatient. Can follow-up with [facility] cardiology and determine if patient continues to need Entresto going forward. Can likely restart Coreg on discharge. -03/05: Daily weights, I's and O's, holding Entresto 6. Multifactorial normocytic anemia Previously diagnosed with iron deficiency anemia back in February 2021. Unclear if patient was taking iron supplementation for this. Hemoglobin 9.0 on admit, baseline hemoglobin appears to be around 10-11. No signs of bleeding. ? Monitor CBC daily. Repeat iron studies ordered. Vitamin B12 and folate ordered as well. -03/05: Ferritin and 90s but low iron level and saturation, suspect component of iron depletion but also chronic disease likely secondary to CKD. Folate within normal limits and B12 actually elevated, continue to monitor, no active blood loss appreciated 7. History of prostate cancer Follows with Dr. Bush with oncology as noted above. Diagnosed with prostate cancer stage IIa in 2015, completed radiation therapy in July 2015 and received LHRH agonist for treatment via Dr. Cooper with Urology. Not currently on any treatment, remains on observation. ? Continue outpatient follow-up. DVT prophylaxis: Heparin subcu CODE STATUS: Full code, verified Expected disposition: TBD Total clinical time spent by myself addressing the patient's medical issues, reviewing all the data, and collaborating with patient's care team: 51 minutes. Charges/Coding Visit Charges Inpatient E&M: 70511 Subs Hosp L3
[2023-03-07 11:45] LABS: HIV - WCH Non-Reactive (Nonreactive); Syphilis Antibodies Non-reactive; Vitamin D,25 Hydroxy 111.6 ng/mL
[2023-03-07 12:04] LABS: Erythrocyte Sedimentation Rate 17 mm/hr (0-20)
[2023-03-07 14:30] VITALS: BP 148/81; PULSE 73; RESP 15; TEMP 36.6; O2SAT 94
[2023-03-07 20:25] VITALS: BP 154/87; PULSE 93; RESP 16; TEMP 37.1; O2SAT 96
[2023-03-07 22:00] VITALS: PULSE 96; RESP 16; O2SAT 96
[2023-03-08] VITALS (10 sets, daily range): BP systolic 147–189; BP diastolic 75–104; PULSE 69–100; RESP 16–18; TEMP 36.6–37.1; O2SAT 92–96; BMI 25.4
[2023-03-08 07:41] LABS: Absolute Lymphocyte Count 51.57 X10^3/uL (0.83-4.51); Absolute Neutrophil Count 6.9 X10^3/uL (2.0-7.7); Basophil# 0.12 X10^3/uL; Basophil% 0.2 % (0-1); Eosinophil# 0.27 X10^3/uL; Eosinophils% 0.4 % (0-5); Hematocrit 30.1 % (40-54); Hemoglobin 9.1 g/dL (13.0-16.5); Lymphocyte # 51.57 X10^3/ul (0.83-4.51); Lymphocyte % 85.7 % (19-41); Mean Corp Hgb Conc 30.2 g/dL (32-36); Mean Platelet Vol. 9.2 fl (6.2-12.0); Monocyte# 1.03 X10^3/uL; Monocyte% 1.7 % (0-10); NRBC Flagged by Analyzer 0 % (0-5); Neutrophil # 6.87 X10^3/uL (2.7-7.7); Neutrophil % 11.5 % (47-70); POSITIVE COUNT YES; POSITIVE DIFFERENTIAL YES; POSITIVE MORPHOLOGY YES; Platelet Count 292 K/mm3 (150-450); RBC Distribution Width CV 18.2 % (11.6-14.6); RBC Distribution Width SD 55.7 fl (35.1-43.9)
[2023-03-08 08:10] LABS: Anion Gap 7 (5-15); BUN 29 mg/dL (7-18); BUN/Creat Ratio 16.6 RATIO (10-20); Calcium,Total 8.7 mg/dL (8.5-10.1); Chloride 110 mmol/L (98-107); Creatinine, Serum 1.75 mg/dL (0.70-1.30); EST Glomerular Filtration Rate 40 mL/min (>60); Est Glom Filt Rate - Afr Amer 48 mL/min (>60); Glucose 123 mg/dL (74-106); Potassium 3.8 mmol/L (3.5-5.1); Sodium Level 143 mmol/L (136-145)
[2023-03-08 08:22] LABS: Differential Indicated SCAN CRITERIA MET; White Blood Count 60.2 K/mm3 (4.4-11.0)
[2023-03-08 09:15] LABS: Differential Comment SCANNED; Smudge Cells 1+
[2023-03-08 09:24] LABS: Pathologist Review Reviewed
[2023-03-08] MEDS: Ondansetron 4 MG/2 ML Vial IV (09:26)
[2023-03-08] MEDS: 0.9% Saline Lock 10 ML Syringe IV (09:29)
--- NOTE | 2023-03-08 09:30 | MRI_ITS ---
HISTORY: dizziness/off balance. TECHNIQUE: Multiplanar and multisequence MR images of the brain were obtained before and after the intravenous administration of 15 cc Clariscan. 354 images. COMPARISON: CT 03/02/2023. FINDINGS: BRAIN PARENCHYMA: Mild foci of increased T2 FLAIR signal in the bilateral cerebral white matter. No enhancing lesion in the brain parenchyma. No abnormal focus of restricted diffusion. No acute intracranial hemorrhage identified. Old right posterior periventricular microhemorrhage. CSF SPACES: Generalized volume loss. No significant midline shift or other mass effect.No extra-axial fluid collection. VASCULAR SYSTEM: Major intracranial flow voids are maintained. OTHER: Artifact from left craniotomy. Symmetric orbital contents. Small right ethmoid mucous retention cyst. Trace fluid in the mastoid air cells. MRI/Brain W/WO Contrast IMPRESSION: No evidence for acute infarct or enhancing intracranial mass. Mild chronic involutional and white matter changes. Electronically Signed: Carmen Mukherjee MD at 11:49 EDT ,
[2023-03-08] MEDS: Heparin Injection (Vial) 5,000 UNIT/ML VIAL 5000 UNIT SC (10:56)
[2023-03-08] MEDS: Carvedilol 12.5 MG Tablet PO ×2 (10:56→16:30)
[2023-03-08] MEDS: Iron Polysaccharide Complex 150 MG CAPSULE PO (10:57)
[2023-03-08] MEDS: Polyethylene Glycol 3350 17 GM PACKET PO (10:57)
[2023-03-08] MEDS: Ciprofloxacin 200 MG/100 ML BAG 100 MG IV (10:57)
[2023-03-08] MEDS: Tamsulosin HCl 0.4 MG Capsule PO (10:57)
[2023-03-08] MEDS: Atorvastatin Calcium 10 MG Tablet PO (10:57)
--- NOTE | 2023-03-08 15:35 | DCINST_ITS ---
Discharge Instructions Diet Discharge Diet: No restrictions Activity Discharge Activity: Use Walker Follow Up Care Test Results: Test results from this visit will be discussed in further detail at your follow- up appointment, if applicable. Discharge Plan Admission Admit Date/Time: 03/05/23 16:41 Primary Reason for Your Visit: Dizziness, urinary tract infection Attending Provider: Laura Bowman Primary Care Provider: German Gu NP Consulting Providers: Waylon Sanches Instructions Patient Instructions: Indwelling Urinary Catheter Dc, ED Fall Prevention Additional Instructions / Restrictions: DISCHARGE INSTRUCTIONS PLEASE READ *Please take this with you to your next doctors appointment* -You will be discharged on ciprofloxacin 250 mg every 12 hours, you will need 1 dose tonight and then twice daily for 6 more days -You will also be discharged on tamsulosin as well as iron supplementation -Please follow-up with urology upon discharge. Please call their office to schedule hospital follow-up appointment upon discharge. -Would recommend lab work (CBC and BMP) to check your white blood cell count and kidney function in 2 to 3 days through your primary care physician's office. Please call their office upon discharge to obtain order for lab work. -Resume Entresto in 1 week -You will be discharged with a prescription for outpatient vestibular rehab and balance therapy, also advised to use a walker -Would recommend against nortriptyline as it can contribute to orthostatic hypotension, urinary retention, confusion, and falls -May be beneficial to follow-up with your hematology doctor for your CLL if you have not followed with them recently -Please call your primary care provider's office upon discharge to schedule a hospital follow up within 1 week. -For any concerning signs or symptoms please call 911 or proceed to the nearest emergency department Discharge Orders/Prescriptions Prescriptions: New ciprofloxacin HCl [Cipro] 250 mg tablet 250 mg PO Q12H 7 Days Qty: 14 0RF Rx Instructions: Starting 03/07 polysaccharide iron complex [Ferrex 150] 150 mg iron Capsule 150 mg PO DAILY Qty: 30 0RF tamsulosin 0.4 mg Capsule 0.4 mg PO DAILY 30 Days Qty: 30 0RF Continued zinc acetate 50 mg (zinc) capsule 50 mg PO DAILY multivitamin [Daily Multiple] 1 EACH tablet 1 ea PO DAILY Patient Comments: SUPPLEMENT cholecalciferol (vitamin D3) [Vitamin D3] 1,000 UNIT capsule 1,000 unit PO DAILY carvedilol 25 MG tablet 25 mg PO BID Osteo Bi-Flex Triple Strength 1 EACH tablet 1 ea PO DAILY atorvastatin 10 mg tablet 10 mg PO DAILY Held Entresto 49-51 mg tablet 1 tab PO BID Hold Instructions: Resume on 03/15/23. Discontinued nortriptyline 50 mg capsule 50 mg PO BID Referrals / Follow Up: Henry Cooper MD [Med Staff - Active Staff] - Within 1 Week (New urinary retention with Hood catheter placement) German Gu NP, [employer] [Primary Care Provider] - Within 1 Week Disposition Disposition (needs filled in before D/C Order can be placed): Home, Self Care
--- NOTE | 2023-03-08 15:40 | DS.PCM_ITS ---
Providers Date of Admission: 03/05/23 Date of Discharge: 03/08/23 Primary Care Physician: RENETTA Justice Reason For Visit: ORTHOSTATIC HYPOTENSION Diagnosis Discharge Diagnosis (1) Orthostatic hypotension: Status: Acute Code(s): I95.1 - Orthostatic hypotension Plan 1. Dizziness, orthostatic hypotension, feeling of being off balance, likely component of inner ear pathology 2. AUGUSTO on CKD III with bilateral hydronephrosis secondary to urinary retention- improving 3. staph aureus UTI 4. CLL, leukocytosis 5. Heart failure with recovered ejection fraction 6. Multifactorial normocytic anemia 7. History of prostate cancer Medications at Discharge Home Medications multivitamin (Daily Multiple tablet) 1 ea PO DAILY 03/15/15 cholecalciferol (vitamin D3) 25 mcg (1,000 unit) capsule (Vitamin D3) 1,000 unit PO DAILY 08/09/16 carvedilol 25 mg tablet 25 mg PO BID 08/24/16 glucosamine 750 [id number] no1 644 mg-C 30 mg-gilson 1 mg tablet (Osteo Bi-Flex Triple Strength) 1 ea PO DAILY 08/24/16 sacubitril 49 mg-valsartan 51 mg tablet (Entresto) 1 tab PO BID 08/24/22 zinc acetate 50 mg (zinc) capsule 50 mg PO DAILY 08/24/22 atorvastatin 10 mg tablet 10 mg PO DAILY 03/04/23 ciprofloxacin HCl 250 mg tablet (Cipro) 250 mg PO Q12H 7 days #14 tabs 03/06/23 polysaccharide iron complex 150 mg iron capsule (Ferrex) 150 mg PO DAILY #30 caps 03/06/23 tamsulosin 0.4 mg capsule 0.4 mg PO DAILY 30 days #30 caps 03/06/23 Hospital Course Summary of Care Provided Minutes Spent on Discharge: 40 Hospital Course: BIGG LONG, is a 82 M with past medical history of heart failure with recovered ejection fraction, prostate cancer s/p radiation, iron deficiency anemia and CLL who presented to [facility] ED on 03/04/2023 with worsening dizziness. He was found to have orthostatic hypotension and AUGUSTO with additional concern for UTI. He had his home blood pressure medications held, IV fluids, was found to have Staph aureus UTI and retroperitoneal ultrasound demonstrated bladder stone and bilateral hydroureter and hydronephrosis. Patient had postvoid with retention and straight cath x1 and repeat in the evening showed continued retention, Hood placement with an additional 450 cc out, patient improved with Hood placement. Unclear if he had UTI leading to worsening urinary retention or if urinary retention led to UTI. We will start tamsulosin and continue to hold nortriptyline as this may cause or contribute to his urinary retention, of note does have history of prostate cancer, will DC with Hood and advise close follow-up with urology for further eval and management. Patient was going to be discharged 03/06/2023 but reported continued feeling of being off balance despite no further significant orthostatic hypotension. Patient is very poor historian and had difficulty de scribing the feeling however after pinning it down it seemed like objects were spinning around in front of him and he would get nauseous and it was not associated with standing up and could happen when he turned his head or looked various directions. Given extent of his complaints MRI obtained which did not show acute infarct. On day of discharge patient reported that he was feeling better and was still having some of the episodes but they were decreasing in frequency, suspect this is inner ear pathology. Discussed with patient and regarding plan and both verbalized understanding and were okay with discharge. Discharge instructions as follows: -You will be discharged on ciprofloxacin 250 mg every 12 hours, you will need 1 dose tonight and then twice daily for 6 more days -You will also be discharged on tamsulosin as well as iron supplementation -Please follow-up with urology upon discharge. Please call their office to schedule hospital follow-up appointment upon discharge. -Would recommend lab work (CBC and BMP) to check your white blood cell count and kidney function in 2 to 3 days through your primary care physician's office. Please call their office upon discharge to obtain order for lab work. -Resume Entresto in 1 week -You will be discharged with a prescription for outpatient vestibular rehab and balance therapy, also advised to use a walker -Would recommend against nortriptyline as it can contribute to orthostatic hypotension, urinary retention, confusion, and falls -May be beneficial to follow-up with your hematology doctor for your CLL if you have not followed with them recently -Please call your primary care provider's office upon discharge to schedule a hospital follow up within 1 week. -For any concerning signs or symptoms please call 911 or proceed to the nearest emergency department Physical Exam Narrative General: Alert, no acute distress HEENT: Atraumatic, normocephalic Eyes: Anicteric, normal conjunctiva, extraocular movements grossly intact Neck: Supple Respiratory: Clear to auscultation bilaterally, normal respiratory effort Cardiovascular: Regular rate GI: Soft, nontender, nondistended Extremities: No edema Musculoskeletal: Moving all extremities Neuro: No overt focal neurological deficits Skin: No rashes appreciated Psych: Cooperative Weight / BMI Weight Weight: 76 kg Body Mass Index (BMI) 25.4 ABG / Lab / Microbiology Data 03/08/23 07:20 03/08/23 07:20 Laboratory: Laboratory Results - last 24 hr 03/07/23 05:17: Diff Path Review Reviewed 03/08/23 07:20: WBC 60.2 H*, RBC 3.50 L, Hgb 9.1 L, Hct 30.1 L, MCV 86.0, MCH 26.0 L, MCHC 30.2 L, RDW Std Deviation 55.7 H, RDW Coeff of Willie 18.2 H, Plt Count 292, MPV 9.2, Immature Gran % (Auto) 0.500, Neut % (Auto) 11.5 L, Lymph % (Auto) 85.7 H, Woods % (Auto) 1.7, Eos % (Auto) 0.4, Baso % (Auto) 0.2, Absolute Neuts (auto) 6.9, Absolute Lymphs (auto) 51.57 H, Nucleated RBC % 0, Differential Comment SCANNED, Diff Path Review May foll, Smudge Cells 1+ H, Sodium 143, Potassium 3.8, Chloride 110 H, Carbon Dioxide 26.0, Anion Gap 7, BUN 29 H, Creatinine 1.75 H, Estim Creat Clear Calc 30.40, Est GFR (MDRD) Af Amer 48 L, Est GFR (MDRD) Non-Af 40 L, BUN/Creatinine Ratio 16.6, Glucose 123 H, Calcium 8.7 Microbiology: Microbiology 03/06/23 08:47 Blood Culture (Wb) - Anticubital Right Blood Culture - Preliminary No growth in 48 hours. 03/06/23 08:40 Blood Culture (Wb) - Anticubital Left Blood Culture - Preliminary No growth in 48 hours. 03/04/23 13:00 Urine, Clean Catch Urine Culture - Final Staphylococcus aureus Radiography Diagnostic Testing: Radiology Impression Brain MRI 03/08/23 09:30 IMPRESSION: No evidence for acute infarct or enhancing intracranial mass. Mild chronic involutional and white matter changes. Electronically Signed: Carmen Mukherjee MD at 11:49 EDT Reading Location ID and State: [facility] / [place] Tel , Service support , D/C Instructions Discharge Diet: No restrictions Discharge Activity: Use Walker Meaningful Use Info Meaningful Use Diagnoses (Choose all that apply): None applicable Discharge Plan Admission Admit Date/Time: 03/05/23 16:41 Primary Reason for Your Visit: Dizziness, urinary tract infection Attending Provider: Laura Bowman Primary Care Provider: German Gu NP Consulting Providers: Waylon Sanches Instructions Patient Instructions: Indwelling Urinary Catheter Dc, ED Fall Prevention Additional Instructions / Restrictions: DISCHARGE INSTRUCTIONS PLEASE READ *Please take this with you to your next doctors appointment* -You will be discharged on ciprofloxacin 250 mg every 12 hours, you will need 1 dose tonight and then twice daily for 6 more days -You will also be discharged on tamsulosin as well as iron supplementation -Please follow-up with urology upon discharge. Please call their office to schedule hospital follow-up appointment upon discharge. -Would recommend lab work (CBC and BMP) to check your white blood cell count and kidney function in 2 to 3 days through your primary care physician's office. Please call their office upon discharge to obtain order for lab work. -Resume Entresto in 1 week -You will be discharged with a prescription for outpatient vestibular rehab and balance therapy, also advised to use a walker -Would recommend against nortriptyline as it can contribute to orthostatic hypotension, urinary retention, confusion, and falls -May be beneficial to follow-up with your hematology doctor for your CLL if you have not followed with them recently -Please call your primary care provider's office upon discharge to schedule a hospital follow up within 1 week. -For any concerning signs or symptoms please call 911 or proceed to the nearest emergency department Discharge Orders/Prescriptions Prescriptions: New ciprofloxacin HCl [Cipro] 250 mg tablet 250 mg PO Q12H 7 Days Qty: 14 0RF Rx Instructions: Starting 03/07 polysaccharide iron complex [Ferrex 150] 150 mg iron Capsule 150 mg PO DAILY Qty: 30 0RF tamsulosin 0.4 mg Capsule 0.4 mg PO DAILY 30 Days Qty: 30 0RF Continued zinc acetate 50 mg (zinc) capsule 50 mg PO DAILY multivitamin [Daily Multiple] 1 EACH tablet 1 ea PO DAILY Patient Comments: SUPPLEMENT cholecalciferol (vitamin D3) [Vitamin D3] 1,000 UNIT capsule 1,000 unit PO DAILY carvedilol 25 MG tablet 25 mg PO BID Osteo Bi-Flex Triple Strength 1 EACH tablet 1 ea PO DAILY atorvastatin 10 mg tablet 10 mg PO DAILY Held Entresto 49-51 mg tablet 1 tab PO BID Hold Instructions: Resume on 03/15/23. Discontinued nortriptyline 50 mg capsule 50 mg PO BID Referrals / Follow Up: Henry Cooper MD [Med Staff - Active Staff] - Within 1 Week (New urinary retention with Hood catheter placement) German Gu NP, [employer] [Primary Care Provider] - Within 1 Week Disposition Disposition (needs filled in before D/C Order can be placed): Home, Self Care Charges/Coding Visit Charges Inpatient E&M: 10526 Disch Hosp >30min
--- NOTE | 2023-03-08 15:55 | CASEMGMT ---
RAMONITA MARTINEZ NOTE: Pt being discharged. Therapy notes reviewed. OP therapy for balance training recommended and Dr Bowman rec vestibular therapy. Script for both obtained from Dr Bowman. RN CM to room. Introduced self and role. Pt resting in bed. @ bedside. Discussed discharge planning. Pt and interested in OP therapy. Given script and made aware they can take to any location of choice and instructed on process. They voice understanding. Pt has a WW @ home and denies needing any other DME and they deny having any further discharge planning needs or concerns. Noemy BENITON RN CM
[2023-03-09 09:53] LABS: Pathologist Review Reviewed
== END 2023-03-08 16:42 | disposition home or self-care (01) | DRG 666 ==
LOC: ED 14:13 → PCU 14:44
PROVIDERS: Nurse Practitioner; Admitting Provider Hospitalist; Emergency Provider Emergency Medicine; PCP Nurse Practitioner Primary Care; Visit Provider Internal Medicine
DX: N13.6 Pyonephrosis (principal); I42.8 Other cardiomyopathies; I13.0 Hypertensive heart and chronic kidney disease with heart failure and stage 1 through stage 4 chronic kidney disease, or unspecified chronic kidney disease; N13.8 Other obstructive and reflux uropathy; C91.10 Chronic lymphocytic leukemia of B-cell type not having achieved remission; I50.32 Chronic diastolic (congestive) heart failure; D63.1 Anemia in chronic kidney disease; N17.9 Acute kidney failure, unspecified; N18.30 Chronic kidney disease, stage 3 unspecified; D50.9 Iron deficiency anemia, unspecified; I95.1 Orthostatic hypotension; E78.00 Pure hypercholesterolemia, unspecified; K21.00 Gastro-esophageal reflux disease with esophagitis, without bleeding; K44.9 Diaphragmatic hernia without obstruction or gangrene; E87.6 Hypokalemia; I25.2 Old myocardial infarction; K57.10 Diverticulosis of small intestine without perforation or abscess without bleeding; B95.61 Methicillin susceptible Staphylococcus aureus infection as the cause of diseases classified elsewhere; N40.1 Benign prostatic hyperplasia with lower urinary tract symptoms; R33.8 Other retention of urine; Z95.0 Presence of cardiac pacemaker; Z79.899 Other long term (current) drug therapy; Z85.46 Personal history of malignant neoplasm of prostate; Z92.3 Personal history of irradiation
CPT/HCPCS: 36415; 70450; 70553; 71045; 74176; 76770; 80048; 80053; 80076; 81001; 82150; 82306; 82570; 82607; 82728; 82746; 83540; 83550; 83690; 83735; 83880; 84100; 84300; 84439; 84443; 84484; 85025; 85610; 85652; 85730; 86140; 86703; 86780; 87040; 87077; 87086; 87088; 87186; 88300; 88305; 88325; 88341; 88342; 93005; 97110; 97162; 97166; 97802; 99285; A9575; J7030; J7040; J7050; J7120; A4216; J0744; J2405

== ENCOUNTER 2023-03-12 17:08 | Inpatient (IN) | payer MEDICARE, SELFPAY ==
[2023-03-12 16:19] VITALS: BMI 24.7
--- NOTE | 2023-03-12 16:51 | CT_ITS ---
INDICATION: nausea vomiting EXAMINATION: CT Abdomen And Pelvis W/O Contrast Injection TECHNIQUE: Helically acquired images were obtained of the abdomen and pelvis without the use of IV contrast. A radiation dose optimization technique was used for this scan. Oral contrast: None. COMPARISON: None FINDINGS: Evaluation of the solid organs and vascular structures is limited without intravenous contrast. Visualized lung bases: Unremarkable Liver: Multiple stable simple cysts. Gallbladder: Few small intraluminal stones seen. 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 Pancreas: Unremarkable Adrenal Glands: Unremarkable Kidneys: Mild bilateral pelviectasis with no obstructing stone seen. 3.2 cm intermediate density cyst in the left upper renal pole. Vasculature: Severe aortoiliac atherosclerotic disease. GI Tract: Hiatal hernia. Extensive colonic diverticula. Lymphadenopathy: There is retroperitoneal lymphadenopathy. Peritoneum: No ascites. Bladder: 1.4 cm stone in the dependent portion of the bladder. Mild circumferential bladder wall thickening with surrounding mesenteric fat stranding. Reproductive organs: Postradiation changes in the prostate. Bones/Soft tissues: There are diffuse degenerative changes of the spine. CT/Abdomen/Pelvis without Cont IMPRESSION: Findings suspicious for cystitis. Correlate with urinalysis. Mild bilateral pelviectasis with no obstructing stone seen. Retroperitoneal lymphadenopathy of uncertain etiology. 3.2 cm intermediate density cyst in the left upper renal pole it is indeterminate.. Recommend multiphase MR abdomen with and without contrast renal mass protocol. 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 Electronically Signed: Kennedy Day MD at 19:35 EDT ,
[2023-03-12 17:01] VITALS: BP 172/66; PULSE 57; RESP 18; TEMP 36.9; O2SAT 97
--- NOTE | 2023-03-12 17:24 | PN.HOSP_ITS ---
Objective Data Objective Data Vital Signs: Vital Signs Temp Pulse Resp BP Pulse Ox O2 Del Method 98.5 F 57 L 18 172/66 H 97 Room Air 03/12/23 17:01 03/12/23 17:01 03/12/23 17:01 03/12/23 17:01 03/12/23 17:01 03/12/23 17:01 Oxygen Delivery Method Room Air Weight: 162 lb 14.746 oz Body Mass Index (BMI) 24.7 Physical Exam Narrative General: Alert, Oriented x3, Cooperative, No apparent distress HEENT: Atraumatic, PERRLA, EOMI, Normocephalic Oral: Moist Mucosa Neck: Supple, No JVD Lungs: Diminished, Normal air movement, No rhonchi, No wheeze, No rales Cardiovascular: Regular rate, Regular Rhythm, Normal S1, Normal S2, No murmurs Abdomen: Soft, Non Tender, Non-Distended, No Hepato-splenomegaly Extremities: No edema, Capillary Refill Less than 3 Seconds Skin: No rashes, No breakdown Musculoskeletal: No Tenderness to Palpation of Joints or Extremities Neurological: Cranial nerves II-XII grossly intact, Motor Exam 5/5 strength throughout, Sensory exam intact to light touch and pain Psych/Mental Status: Normal Affect, Appropriate Assessment & Plan Assessment/Plan (1) Urinary retention: PLAN: Plan 1. Urinary retention with hydronephrosis ? She was a direct admission from the urologist office secondary to nausea and vomiting ? We will place him on Zofran and start him on IV fluids ? Plan for CT scan of the abdomen/pelvis ? Of note on his previous admission to have a Staph aureus UTI 2. Chronic systolic CHF/HTN/HLD 3
--- NOTE | 2023-03-12 17:24 | PCM.PN.HOSP ---
Subjective Subjective 82-year-old male who was recently discharged from the hospital for a staph UTI as well as his 6 months of dizziness. At that time he was found to have some orthostatic hypotension but he was not having any nausea or vomiting. He was found to have a staph UTI started on Cipro but he says that he thinks that the nausea and vomiting started because of the Cipro and the iron so he stopped taking it. He was discharged with a Hood and secondary to urinary retention and he followed up with urology today where the Hood was removed but he was describing his nausea and vomiting and therefore he was transferred back to the hospital as a direct admission under urology for further evaluation. Lab work is currently pending, but vital signs so far are unremarkable, his blood pressure is a little bit elevated. Objective Data Objective Data Vital Signs: Vital Signs Temp Pulse Resp BP Pulse Ox O2 Del Method 98.5 F 57 L 18 172/66 H 97 Room Air 03/12/23 17:03/12/23 17:01 03/12/23 17:03/12/23 17:01 03/12/23 17:01 03/12/23 17:01 Oxygen Delivery Method Room Air Weight: 162 lb 14.746 oz Body Mass Index (BMI) 24.7 Physical Exam Narrative General: Alert, Oriented x3, Cooperative, No apparent distress HEENT: Atraumatic, PERRLA, EOMI, Normocephalic Oral: Moist Mucosa Neck: Supple, No JVD Lungs: Diminished, Normal air movement, No rhonchi, No wheeze, No rales Cardiovascular: Regular rate, Regular Rhythm, Normal S1, Normal S2, No murmurs Abdomen: Soft, Non Tender, Non-Distended, No Hepato-splenomegaly Extremities: No edema, Capillary Refill Less than 3 Seconds Skin: No rashes, No breakdown Musculoskeletal: No Tenderness to Palpation of Joints or Extremities Neurological: Cranial nerves II-XII grossly intact, Motor Exam 5/5 strength throughout, Sensory exam intact to light touch and pain Psych/Mental Status: Normal Affect, Appropriate Assessment & Plan Assessment/Plan (1) Urinary retention: PLAN: Plan 1. Urinary retention with hydronephrosis/history of prostate cancer/nausea and vomiting ?He was a direct admission from the urologist office secondary to nausea and vomiting ? He thinks that the nausea and vomiting is due to his iron and Cipro but is also been having dizziness for the last 6 months ? We will place him on Zofran and start him on IV fluids ? Of note on his previous admission to have a Staph aureus UTI which was sensitive to Levaquin and he was discharged on Cipro, will repeat UA ? Continue with Flomax 2. Chronic systolic CHF/HTN/HLD ? Blood pressures are stable, will monitor and make adjustments as necessary ? Continue with his Coreg but will continue to hold Entresto pending a BMP to monitor his renal function as this was held on his last discharge secondary to AUGUSTO 3. CLL with normocytic anemia ? Being monitored by oncology as an outpatient DVT: SCDs Charges/Coding Visit Charges Inpatient E&M: 26313 Subs Hosp L2
[2023-03-12] MEDS: 0.9% Normal Saline (1000mL) 1,000 ML 75 ML IV (18:14)
[2023-03-12 18:28] LABS: Absolute Lymphocyte Count 59.41 X10^3/uL (0.83-4.51); Absolute Neutrophil Count 9.2 X10^3/uL (2.0-7.7); Basophil# 0.08 X10^3/uL; Basophil% 0.1 % (0-1); Eosinophil# 0.04 X10^3/uL; Eosinophils% 0.1 % (0-5); Hematocrit 31.3 % (40-54); Hemoglobin 9.4 g/dL (13.0-16.5); Lymphocyte # 59.41 X10^3/ul (0.83-4.51); Lymphocyte % 85.5 % (19-41); Mean Corpuscular Hgb 26.3 pg (27.0-32.0); Mean Corpuscular Volume 87.7 fL (80-94); Mean Platelet Vol. 9.2 fl (6.2-12.0); Monocyte# 0.34 X10^3/uL; Monocyte% 0.5 % (0-10); NRBC Flagged by Analyzer 0 % (0-5); Neutrophil # 9.19 X10^3/uL (2.7-7.7); Neutrophil % 13.2 % (47-70); POSITIVE COUNT YES; POSITIVE DIFFERENTIAL YES; POSITIVE MORPHOLOGY YES; Platelet Count 286 K/mm3 (150-450); RBC Distribution Width CV 18.7 % (11.6-14.6); RBC Distribution Width SD 57.9 fl (35.1-43.9); Red Blood Count 3.57 M/mm3 (4.6-6.2)
[2023-03-12 18:40] VITALS: BP 169/70; PULSE 63
[2023-03-12 18:45] LABS: ALB/GLOB Ratio 1.2 RATIO (0.9-2.4); AST(SGOT) 23 U/L (15-37); Alanine Aminotransfer ALT/SGPT 25 U/L (16-61); Alkaline Phosphatase 80 U/L (45-117); Amylase 36 U/L (25-115); Anion Gap 5 (5-15); BUN 31 mg/dL (7-18); BUN/Creat Ratio 16.7 RATIO (10-20); Calcium,Total 8.4 mg/dL (8.5-10.1); Chloride 110 mmol/L (98-107); Creatinine, Serum 1.86 mg/dL (0.70-1.30); EST Glomerular Filtration Rate 37 mL/min (>60); Est Glom Filt Rate - Afr Amer 45 mL/min (>60); Globulin 2.6 g/dL (2.2-4.2); Glucose 146 mg/dL (74-106); Lipase 12 U/L (13-75); Potassium 3.6 mmol/L (3.5-5.1); Protein, Total 5.6 g/dL (6.4-8.2); Sodium Level 143 mmol/L (136-145)
[2023-03-12 18:50] LABS: Differential Indicated SCAN CRITERIA MET
[2023-03-12 18:51] LABS: White Blood Count 69.5 K/mm3 (4.4-11.0)
[2023-03-12 18:55] LABS: Anisocytosis RARE; Differential Comment SEE COMMENTS; Ovalocyte RARE; Platelet Estimate ADEQUATE (ADEQ); Red Cell Morphology N CHROM NORMAL (NORM C&C)
--- NOTE | 2023-03-12 19:26 | PCM.HP.BLA ---
History and Physical CC/HPI: 82 year old male with history of prostate cancer presents for a hospital follow up visit He was experiencing dizziness and weakness then fell at [employer] Presented to the ER and was found to have urinary retention and a UTI Admitted and treated with IV abx He was sent home with Cipro - he has been experiencing adverse reactions of nausea, vomiting & swelling. He discontinued this medication but symptoms persist He was sent home with a hutchinson, presents today for removal He started taking Flomax on Sunday Denies hematuria ALLERGIES:Cipro - Swelling, Vomiting, Nausea MEDICATIONS: see in patient list. PAST SURGICAL HISTORY: - 2015, 2014 Depolupron 1 3 4 Month - 2017, 2017, 2016, 2016, 2016 Hand/finger Surgery - 2019 Heart Pacemaker/ICD Initial Male VB Sounds - 2015 Laser Surgery Prostate - 2015 Patient documented to have received pneumococcal vaccination PLACE RT DEVICE/MARKER, PROS - 2015 Prostate Needle Biopsy - 2014 Transrectal Biopsy US - 2015, 2014 PAST MEDICAL HISTORY:- 06/01/2022, - 2021, - 2017, - 2016, - 2016, - 2016, - 2015, - 2016, - 2016, - 2016, - 2016, - 2016, - 2014, - 2014 Nocturia - 06/01/2022 Male erectile dysfunction, unspecified (Stable) - 2021, - 2014, - 2013 Post-traumatic bulbous urethral stricture - 2021, - 2016 Overactive bladder - 2020 Personal history of malignant neoplasm of prostate - 2020 Urge incontinence (Stable) - 2020, - 2015 Urgency of urination - 2020 Poor urinary stream - 2015, - 2015, - 2016, - 2016, - 2016, - 2015, - 2015, - 2015, - 2014, - 2013, - 2012 Urethral stricture, unspecified - 2016 Benign prostatic hyperplasia with lower urinary tract symptoms - 2015, - 2015, - 2015, - 2015, - 2015, - 2015, - 2014 Post-traumatic urethral stricture, male, meatal - 2016 Feeling of incomplete bladder emptying - 2016 Neuromuscular dysfunction of bladder, unspecified - 2015 Elevated prostate specific antigen [PSA] - 2014 Benign neoplasm of urinary organ, unspecified - 2014, - 2014, - 2013, - 2012, - 2011 Cutaneous T-cell lymphoma, unspecified, intra-abdominal lymph nodes Hyperlipidemia, unspecified Non-ST elevation (NSTEMI) myocardial infarction Polyneuropathy in diseases classified elsewhere Presence of cardiac pacemaker Secondary hypertension, unspecified FAMILY HISTORY:Diabetes - Runs in Family Hypertension - Runs in Family SOCIAL HISTORY:Marital Status: Preferred Language: Belarusian; Ethnicity: Not Or ; Race: White Current Smoking Status: Patient has never smoked. Does not use smokeless tobacco. Has never drank. Does not use drugs. Drinks 2 caffeinated drinks per day. Has not had a blood transfusion REVIEW OF SYSTEMS:Constitutional: ?Gastrointestinal: ?Patient reports nausea and vomiting.Genitourinary: ?hutchinson in place today in office . Patient reports urinary retention. VITAL SIGNS:?03/12/2023 02:23 PMWeightBP PHYSICAL EXAM:Penis:Penile hutchinson catheter present. Experiencing N/V in office Complexity of Data: Source Of History:? Lab Test Review: ? Records Review: ? X-Ray Review: PROCEDURES: ASSESSMENT: ? ICD-10 Details PLAN: ? ? ? Document Letter(s): ? ? ?Notes: ? Experiencing persistent N/V since hospital admission, thought it was due to Cipro but has not had much improvement after discontinuing medication. Reviewed urine culture, CBC, CMP, renal US from hospital admission. Hutchinson was removed in office however he was retaining urine prior to placement. Educated that he needs to push fluids and if he can't urinate within 6 hours he will need hutchinson replaced. Based on his previous test results and his current symptoms in office he would benefit from hospital admission and further work up. Patient agrees with this plan. Direct admit to hospital, written orders provided. Assessment & Plan Assessment/Plan (1) Urinary retention: PLAN: Hutchinson out voiding trial tonight nurse instructed to replace hutchinson if can't void (2) Orthostatic hypotension: (3) Fall: (4) History of chronic lymphocytic leukemia: PLAN: wbc elevated? (5) Anemia: (6) Dizziness: (7) UTI (urinary tract infection): (8) Acute kidney injury: (9) CLL (chronic lymphocytic leukemia): (10) Prostate cancer: PLAN: stabel PLAN: Plan persistent Nausea and vomiting not feeling well hutchinson removed for a void trial medical consult consult for nausea and vomiting will also order imaging
[2023-03-12 20:46] LABS: Bacteria 0 SEEN /hpf (None Seen); Mucous, Urine 0 SEEN /hpf (<or=2+); Red Blood Cells-Urine 0 SEEN /hpf (0-5); Squamous Epithelial Cells - UA 0 SEEN /hpf (0-5)
[2023-03-12 21:53] LABS: Color, Urine Yellow (Yellow); Glucose, Dipstick 100 mg/dl (Normal); Ketone-Dipstick Negative (Negative); Leukocyte Esterase-Dipstick Negative /ul (Negative); Nitrite-Dipstick Negative (Negative); Occult Blood-Urine 10 /ul (Negative); Protein-Dipstick 30 mg/dl (Negative); Specific Gravity, Urine 1.015 (1.002-1.030); Urine Bilirubin Dipstick Negative (Negative); Urine Clarity Clear (Clear); Urine Urobilinogen Normal (Normal); Urine pH 6.5 (5.0 - 8.0)
[2023-03-12 22:02] LABS: White Blood Cells 0-5 SEEN /hpf (0-5)
[2023-03-12 22:43] VITALS: BP 163/74; PULSE 82; RESP 16; TEMP 36.7; O2SAT 97
[2023-03-12] MEDS: Atorvastatin Calcium 10 MG Tablet PO (22:48)
[2023-03-12] MEDS: Carvedilol 25 MG Tablet PO (22:48)
[2023-03-12] MEDS: Ondansetron 4 MG/2 ML Vial IV (23:00)
--- NOTE | 2023-03-12 23:00 | CON.PCM.GI_ITS ---
HPI Consult Data Date of Consult: 03/12/23 HPI Narrative Reason for Consultation: Nausea and vomiting HPI Narrative: BIGG LONG, is a 82 M with past medical history of heart failure with recovered ejection fraction, prostate cancer s/p radiation, iron deficiency anemia and CLL who presented to [facility] ED on 03/04/2023 with worsening dizziness. Patient stated that he has felt dizzy specifically when going from sitting to standing over the past several weeks. He has history of heart failure and is on Coreg and Entresto, denies any recent changes to his medications that he is aware of. Patient denies any episodes of syncope or falls. Patient denies any specific vision changes. Denies any weakness, numbness or tingling in his extremities. Patient notes that he has been urinating quite frequently recently and often does not have very good p.o. intake at home. Patient denies any dysuria or burning with urination recently. He denies any fevers or chills currently. Denies any other acute concerns this morning. Vitals in ED notable for normotensive to mildly hypertensive BP, otherwise unremarkable. Notably did have orthostatic hypotension with 20 point drop of BP with standing in the ED. Labs notable for WBC count 52 (close to baseline), hemoglobin 9.0, platelets 305, sodium 142, potassium 4.6, chloride 110, bicarb 26, BUN 62, creatinine 2.82, BNP 477, troponin normal. UA showed positive ni trites, 500 leukocyte esterase, greater than 100 WBCs, however 0 bacteria. Chest x-ray nonacute. CT brain without contrast showed no acute intracranial process, chronic involutional changes of the brain. During the hospitalization he had his home blood pressure medications held, IV fluids, was found to have Staph aureus UTI and retroperitoneal ultrasound demonstrated bladder stone and bilateral hydroureter and hydronephrosis. Patient had postvoid with retention and straight cath x1 and repeat in the evening showed continued retention, Hood placement with an additional 450 cc out, patient improved with Hood placement. Unclear if he had UTI leading to worsening urinary retention or if urinary retention led to UTI. He was started on tamsulosin and nortriptyline was held as it may have contributed to his urinary retention, of note does have history of prostate cancer, will DC with Hood and advise close follow-up with urology for further eval and management. Patient was discharged 03/08/2023 but reported continued feeling of being off balance despite no further significant orthostatic hypotension. Patient is very poor historian and had difficulty describing the feeling however after pinning it down it seemed like objects were spinning around in front of him and he would get nauseous and it was not associated with standing up and could happen when he turned his head or looked various directions. MRI obtained which did not show acute infarct. On day of discharge patient reported that he was feeling better and was discharged on ciprofloxacin 250 mg every 12 hours. He presented back to the hospital with worsening nausea and vomiting after being seen in the office with worsening nausea vomiting. He was discharged with a Hood and secondary to urinary retention and he followed up with urology today where the Hood was removed but he was describing his nausea and vomiting and therefore he was transferred back to the hospital as a direct admission under urology for further evaluation. [facility] Medical History (Updated 03/12/23 @ 16:32 by Sherry Avalos) Cancer CKD (chronic kidney disease) Essential hypertension Fracture of unspecified phalanx of unspecified finger, initial encounter for closed fracture Iron deficiency anemia LBBB (left bundle branch block) Non-ischemic cardiomyopathy Pacemaker Peripheral neuropathy Restless leg syndrome Subdural hematoma Syncope Syncope and collapse Ventricular tachycardia Home Medications multivitamin (Daily Multiple tablet) 1 ea PO DAILY 03/15/15 [History Last Taken 03/04/23] cholecalciferol (vitamin D3) 25 mcg (1,000 unit) capsule (Vitamin D3) 1,000 unit PO DAILY 08/09/16 [History Last Taken 03/04/23] carvedilol 25 mg tablet 25 mg PO BID 08/24/16 [History Last Taken 03/04/23] glucosamine 750 uf-[id number]-rrd no1 644 mg-C 30 mg-gilson 1 mg tablet (Osteo Bi-Flex Triple Strength) 1 ea PO DAILY 08/24/16 [History Last Taken 03/04/23] sacubitril 49 mg-valsartan 51 mg tablet (Entresto) 1 tab PO BID 08/24/22 [Hi story Last Taken 03/04/23] zinc acetate 50 mg (zinc) capsule 50 mg PO DAILY 08/24/22 [History Last Taken 03/04/23] atorvastatin 10 mg tablet 10 mg PO DAILY 03/04/23 [History Last Taken 03/03/23] ciprofloxacin HCl 250 mg tablet (Cipro) 250 mg PO Q12H 7 days #14 tabs 03/06/23 [Rx Last Taken Unknown] polysaccharide iron complex 150 mg iron capsule (Ferrex) 150 mg PO DAILY #30 caps 03/06/23 [Rx Last Taken Unknown] tamsulosin 0.4 mg capsule 0.4 mg PO DAILY 30 days #30 caps 03/06/23 [Rx Last Taken Unknown] Allergy/AdvReac Type Severity Reaction Status Date / Time lisinopril AdvReac Unknown cough Verified 03/05/23 11:08 Family History (Updated 08/24/22 @ 15:56 by Marely Parada) Mother CVA (cerebral vascular accident) Hypertension Diabetes Father Ischemic heart disease Diabetes Surgical History Cardiac 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 therapy defibrillator (FINISH CARPENTER-D) in place (~09/2015) History of arthroplasty of finger of left hand History of colonoscopy History of left heart catheterization (09/22/15) Splenic artery aneurysm Social History (Updated 08/24/22 @ 15:55 by Marely Parada) Smoking Status: Never smoker alcohol intake: never substance use type: does not use caffeine: Yes Type: coffee Number of servings: 3 ROS Constitutional Constitutional: Denies change in weight, chills, fatigue, fever(s) or weakness Eyes Eyes: Denies change in vision Cardiovascular Cardiovascular: Reports lightheadedness; Denies chest pain, edema, orthopnea, palpitations, rapid heart rate or syncope Respiratory/Chest Respiratory/Chest: Denies cough or shortness of breath at rest Gastrointestinal Gastrointestinal: Denies abdominal pain, constipation, diarrhea, nausea or vomiting Genitourinary Genitourinary: Denies burning urination or dysuria Neurologic Neurologic: Reports dizziness; Denies abnormal gait, abnormal speech, confusion, focal weakness, headache(s), numbness, paresthesias, syncope or tingling Physical Exam Narrative GENERAL: cooperative HEENT: Atraumatic; normocephalic EYES; Anicteric, Normal Conjunctiva NECK; supple, normal thyroid, RESPIRATORY: Diminished to auscultation CARDIOVASCULAR: Regular S1 S2, GI: soft, normoactive bowel sounds, : No Renal angle tenderness; EXTREMITIES: No edema, no clubbing, MUSCULOSKELETAL: no muscle wasting NEURO: Awake; no lateralizing signs. SKIN: No Rash PSYCH; Flat affect Lab / Micro Data 03/12/23 18:17 03/12/23 18:17 Labs: Laboratory Results - last 24 hr 03/12/23 18:17: WBC 69.5 H*, RBC 3.57 L, Hgb 9.4 L, Hct 31.3 L, MCV 87.7, MCH 26.3 L, MCHC 30.0 L, RDW Std Deviation 57.9 H, RDW Coeff of Willie 18.7 H, Plt Count 286, MPV 9.2, Immature Gran % (Auto) 0.600, Neut % (Auto) 13.2 L, Lymph % (Auto) 85.5 H, [place] % (Auto) 0.5, Eos % (Auto) 0.1, Baso % (Auto) 0.1, Absolute Neuts (auto) 9.2 H, Absolute Lymphs (auto) 59.41 H, Nucleated RBC % 0, Differential Comment SEE COMMENTS, Diff Path Review May foll, Platelet Estimate ADEQUATE, RBC Morphology N CHROM, Anisocytosis RARE, Ovalocytes RARE, Sodium 143, Potassium 3.6, Chloride 110 H, Carbon Dioxide 28.0, Anion Gap 5, BUN 31 H, Creatinine 1.86 H, Estim Creat Clear Calc 28.60, Est GFR (MDRD) Af Amer 45 L, Est GFR (MDRD) Non-Af 37 L, BUN/Creatinine Ratio 16.7, Glucose 146 H, Calcium 8.4 L, Total Bilirubin 0.40, AST 23, ALT 25, Alkaline Phosphatase 80, Total Protein 5.6 L, Albumin 3.0 L, Globulin 2.6, Albumin/Globulin Ratio 1.2, Amylase 36, Lipase 12 L 03/12/23 20:30: Urine Color Yellow, Urine Clarity Clear, Urine pH 6.5, Ur Specific [place] 1.015, Urine Protein 30 H, Urine Glucose (UA) 100 H, Urine Ketones Negative, Urine Occult Blood 10 H, Urine Nitrite Negative, Urine Bilirubin Negative, Urine Urobilinogen Normal, Ur Leukocyte Esterase Negative, Urine RBC 0 SEEN, Urine WBC 0-5 SEEN, Ur Squamous Epith Cells 0 SEEN, Urine B acteria 0 SEEN, Urine Mucus 0 SEEN Radiology Impression Abdomen/Pelvis CT 03/12/23 16:51 IMPRESSION: Findings suspicious for cystitis. Correlate with urinalysis. Mild bilateral pelviectasis with no obstructing stone seen. Retroperitoneal lymphadenopathy of uncertain etiology. 3.2 cm intermediate density cyst in the left upper renal pole it is indeterminate.. Recommend multiphase MR abdomen with and without contrast renal mass protocol. 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 Electronically Signed: Kennedy Day MD at 19:35 EDT , Assessment & Plan Assessment/Plan (1) Urinary retention: PLAN: Plan 82-year-old with past medical history of CLL, prostate cancer status post ration, CKD stage III and recent urinary tract infection with obstructive uropathy status post Hood and removal Urinary retention with hydronephrosis/history of prostate cancer/nausea and vomiting ? He thinks that the nausea and vomiting is due to his iron and Cipro but is also been having dizziness for the last 6 months He will undergo an upper endoscopy to make sure it is not an acute GI pathology contributing to his nausea and vomiting. If that is normal then I will treat him accordingly. He was explained alternatives, risk, benefits include not withstanding bleeding, infection, sepsis, perforation, need for emergency to . Have an ASA of 3. Chronic systolic CHF/HTN/HLD ? Seems to be stable and not contributing to his nausea vomiting Charges/Coding Visit Charges Inpatient E&M: 27785 Init Hosp L3
[2023-03-13] VITALS (9 sets, daily range): BP systolic 130–177; BP diastolic 59–90; PULSE 59–77; RESP 14–18; TEMP 36.4–36.9; O2SAT 91–96
--- NOTE | 2023-03-13 | EGD_PTH ---
PATIENT: BIGG LONG LOC: MS3 U#:[id number] AGE/SX: 82/M ROOM: IN312 RE03/12/[address]: Dr. Onesimo Cavazos MD : 1940 BED: 1 DIS: 03/15/2023 SPEC #: [id number] RECD: 03/13/23 15:12 STATUS: KAJAL REKrupa #: [id number] SHANON: 03/13/23 00:[address]: Harpreet Hartman DEPT: SURGICAL PATHOLOGY RECD BY: Maykel Nagel ENTERED: 03/14/23 10:09 SP TYPE: EGD BIOPSY OTHR DR: MD Dr. Henry Jurado MD Dr. Nicholas F Kotsonis, MD Dr. Rahsaan Friend, DO Ryan Baltes, NP-C Tissues: A - Gastric mucous membrane B - Duodenum, NOS Procedures: Gen Path Consultation (on slides) Surgery Specimen Level IV Comments: @ Ordering doctor for SUIV edited from to @ by ORLIN at 03/14/23 1448 @ Submitting doctor edited from to @ by ORLIN at 03/14/23 1448 HEADER OPERATION: EGD with biopsy PRE-OP DIAGNOSIS: Nausea and vomiting TISSUE SUBMITTED: A - Ampulla biopsy, B - Duodenum biopsy MICROSCOPIC DIAGNOSIS A. 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 See comment. B. Duodenum, biopsy: Gastric metaplasia. AM:ariana 03/15/2023 COMMENT A. Immunohistochemistry ([id number]) supports the above diagnosis. The specimen is sent to [facility] for expert opinion and reviewed by Dr. branch and above diagnosis is rendered. The complete report is viewable in patient's EMR. Case has been reviewed in consultation with Dr. Michelle who concurs with the above diagnosis. IDC:SJ MICROSCOPIC DESCRIPTION Slides are reviewed. GROSS DESCRIPTION A - Received in fixative is one container labeled with the patient's name and designated ampulla biopsy. The specimen consists of multiple irregular fragments of light harry soft tissue that in aggregate measure 0.8 x 0.3 x 0.1 cm. The specimen is totally submitted in one cassette. B - Received in fixative is one container labeled with the patient's name and designated duodenum biopsy. The specimen consists of multiple irregular fragments of light harry soft tissue that in aggregate measure 1.0 x 0.3 x 0.1 cm. The specimen is totally submitted in one cassette. / SJ:ariana 03/14/2023 TC:5 CPT: 24223 x2
--- NOTE | 2023-03-13 | IMM_PTH ---
PATIENT: BIGG LONG LOC: MS3 U#:[id number] AGE/SX: 82/M ROOM: WV312 RE03/12/[address]: Dr. Onesimo Cavazos MD : 1940 BED: 1 DIS: 03/15/2023 SPEC #: [id number] RECD: 03/15/23 14:07 STATUS: KAJAL REQ #: [id number] SHANON: 03/13/23 00:[address]: Harpreet Hartman DEPT: IMMUNOHISTOCHEMISTRY RECD BY: Kristina Angel ENTERED: 03/15/23 14:10 SP TYPE: IMMUNO OTHR DR: MD Dr. Henry Jurado MD Dr. Nicholas F Kotsonis, MD Ryan Baltes, INTERNAL SPECIALIST-C Tissues: A - Stomach, NOS Procedures: CK20 (add) CK7 (add) KI-67 (add) P53 (add) Pankeratin (initial) CDX2 (add) PHYSICIAN & [address] [address] SPECIMEN INFORMATION: Tissue Source: Kenia Enriquez Clinical Info: Nausea and vomiting Specimen Number: [id number] CPT code: 08496, 59922 x5 METHODOLOGY: Deparaffinized sections of prefer/formalin-fixed tissue or PAP/DQ stained slides are incubated with monoclonal/polyclonal antibodies/oligonucleotide probes. Localization is made via biotin free immunoperoxidase method. Appropriate controls are performed and reacted as expected. Results on target cell population are indicated in the following table: RESULTS: ANTIBODY / CLONE RESULT Block A AE1-3 (AE1/AE3/PCK26) positive CK7 (OV-TL12/30) positive CK20 (KS20.8) negative CDX2 (UON0572J) positive P53 (DO-7) positive, wild type pattern Ki-67 (30-9) positive, 5% These tests were developed and their performance characteristics determined by [facility]. They may not have been cleared or approved by the U.S. Food and Drug Administration. The FDA has determined that such clearance or approval is not necessary. The above immunohistochemical/dualISH markers are ordered and reviewed by the Pathologist. INTERPRETATION: Drew Enriquez, biopsy: Neoplastic glandular epithelium. AM/am 03/27/23
[2023-03-13] MEDS: 0.9% Normal Saline (1000mL) 1,000 ML 75 ML IV ×2 (06:07→17:57)
--- NOTE | 2023-03-13 07:34 | PN.URO_ITS ---
Subjective Subjective CT scan last night demonstrates a distended bladder and a bladder stone has a history of a recent UTI with Staph aureus. We will start him on antibiotics with Cipro 40 mg IV twice daily n.p.o. at midnight plan for surgery tomorrow for cystolitholapaxy removal of the bladder stone and possible TURP. Hold all blood thinners Objective Data Objective Data Vital Signs: Vital Signs Temp Pulse Resp BP Pulse Ox O2 Del Method 97.6 F L 70 16 162/90 H 93 Room Air 03/13/23 03:38 03/13/23 03:38 03/13/23 03:38 03/13/23 03:38 03/13/23 03:38 03/13/23 03:38 Oxygen Delivery Method Room Air Weight: 73.9 kg Body Mass Index (BMI) 24.7 Intake & Output: Intake and Output for Last 24 Hours 03/11/23 03/12/23 03/13/23 23:59 23:59 23:59 Intake Total 300 / 300 1091.25 / 1091.25 Output Total 500 / 500 375 / 375 Balance -200 / -200 716.25 / 716.25 Lab / Micro Data 03/12/23 18:17 03/12/23 18:17 Labs: Laboratory Results - last 24 hr 03/12/23 18:17: WBC 69.5 H*, RBC 3.57 L, Hgb 9.4 L, Hct 31.3 L, MCV 87.7, MCH 26.3 L, MCHC 30.0 L, RDW Std Deviation 57.9 H, RDW Coeff of Willie 18.7 H, Plt Count 286, MPV 9.2, Immature Gran % (Auto) 0.600, Neut % (Auto) 13.2 L, Lymph % (Auto) 85.5 H, [place] % (Auto) 0.5, Eos % (Auto) 0.1, Baso % (Auto) 0.1, Absolute Neuts (auto) 9.2 H, Absolute Lymphs (auto) 59.41 H, Nucleated RBC % 0, Differential Comment SEE COMMENTS, Diff Path Review May foll, Platelet Estimate ADEQUATE, RBC Morphology N CHROM, Anisocytosis RARE, Ovalocytes RARE, Sodium 143, Potassium 3.6, Chloride 110 H, Carbon Dioxide 28.0, Anion Gap 5, BUN 31 H, Creatinine 1.86 H, Estim Creat Clear Calc 28.60, Est GFR (MDRD) Af Amer 45 L, Est GFR (MDRD) Non-Af 37 L, BUN/Creatinine Ratio 16.7, Glucose 146 H, Calcium 8.4 L, Total Bilirubin 0.40, AST 23, ALT 25, Alkaline Phosphatase 80, Total Protein 5.6 L, Albumin 3.0 L, Globulin 2.6, Albumin/Globulin Ratio 1.2, Amylase 36, Lipase 12 L 03/12/23 20:30: Urine Color Yellow, Urine Clarity Clear, Urine pH 6.5, Ur Specific [place] 1.015, Urine Protein 30 H, Urine Glucose (UA) 100 H, Urine Ketones Negative, Urine Occult Blood 10 H, Urine Nitrite Negative, Urine Bilirubin Negative, Urine Urobilinogen Normal, Ur Leukocyte Esterase Negative, Urine RBC 0 SEEN, Urine WBC 0-5 SEEN, Ur Squamous Epith Cells 0 SEEN, Urine Bacteria 0 SEEN, Urine Mucus 0 SEEN Radiography Diagnostic Testing: Radiology Impression Abdomen/Pelvis CT 03/12/23 16:51 IMPRESSION: Findings suspicious for cystitis. Correlate with urinalysis. Mild bilateral pelviectasis with no obstructing stone seen. Retroperitoneal lymphadenopathy of uncertain etiology. 3.2 cm intermediate density cyst in the left upper renal pole it is indeterminate.. Recommend multiphase MR abdomen with and without contrast renal mass protocol. 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 Electronically Signed: Kennedy Day MD at 19:35 EDT ,
--- NOTE | 2023-03-13 09:56 | PCM.PN.HOSP ---
Reason for Visit Reason for Visit: Diagnoses Malignant neoplasm of prostate (03/12/23) Chronic lymphocytic leukemia of B-cell type not having achieved remission (03/12/23) Anemia, unspecified (03/12/23) Orthostatic hypotension (03/12/23) Acute kidney failure, unspecified (03/12/23) Urinary tract infection, site not specified (03/12/23) Retention of urine, unspecified (03/12/23) Dizziness and giddiness (03/12/23) Unspecified fall, initial encounter (03/12/23) Personal history of leukemia (03/12/23) Subjective Subjective Patient is an 82-year-old gentleman With history of recent hospitalization with staph UTI discharged home with a Hood catheter due to urinary retention admitted with nausea vomiting and dizziness Objective Data Objective Data Vital Signs: Vital Signs Temp Pulse Resp BP Pulse Ox O2 Del Method 98 F 61 14 177/68 H 91 Room Air 03/13/23 08:31 03/13/23 08:31 03/13/23 08:31 03/13/23 08:31 03/13/23 08:31 03/13/23 08:31 Oxygen Delivery Method Room Air Weight: 73.9 kg Body Mass Index (BMI) 24.7 Intake & Output: Intake and Output for Last 24 Hours 03/11/23 03/12/23 03/13/23 23:59 23:59 23:59 Intake Total 300 / 300 1091.25 / 1091.25 Output Total 500 / 500 375 / 375 Balance -200 / -200 716.25 / 716.25 Lab / Micro Data 03/12/23 18:17 03/12/23 18:17 Labs: Laboratory Results - last 24 hr 03/12/23 18:17: WBC 69.5 H*, RBC 3.57 L, Hgb 9.4 L, Hct 31.3 L, MCV 87.7, MCH 26.3 L, MCHC 30.0 L, RDW Std Deviation 57.9 H, RDW Coeff of Willie 18.7 H, Plt Count 286, MPV 9.2, Immature Gran % (Auto) 0.600, Neut % (Auto) 13.2 L, Lymph % (Auto) 85.5 H, [place] % (Auto) 0.5, Eos % (Auto) 0.1, Baso % (Auto) 0.1, Absolute Neuts (auto) 9.2 H, Absolute Lymphs (auto) 59.41 H, Nucleated RBC % 0, Differential Comment SEE COMMENTS, Diff Path Review May foll, Platelet Estimate ADEQUATE, RBC Morphology N CHROM, Anisocytosis RARE, Ovalocytes RARE, Sodium 143, Potassium 3.6, Chloride 110 H, Carbon Dioxide 28.0, Anion Gap 5, BUN 31 H, Creatinine 1.86 H, Estim Creat Clear Calc 28.60, Est GFR (MDRD) Af Amer 45 L, Est GFR (MDRD) Non-Af 37 L, BUN/Creatinine Ratio 16.7, Glucose 146 H, Calcium 8.4 L, Total Bilirubin 0.40, AST 23, ALT 25, Alkaline Phosphatase 80, Total Protein 5.6 L, Albumin 3.0 L, Globulin 2.6, Albumin/Globulin Ratio 1.2, Amylase 36, Lipase 12 L 03/12/23 20:30: Urine Color Yellow, Urine Clarity Clear, Urine pH 6.5, Ur Specific [place] 1.015, Urine Protein 30 H, Urine Glucose (UA) 100 H, Urine Ketones Negative, Urine Occult Blood 10 H, Urine Nitrite Negative, Urine Bilirubin Negative, Urine Urobilinogen Normal, Ur Leukocyte Esterase Negative, Urine RBC 0 SEEN, Urine WBC 0-5 SEEN, Ur Squamous Epith Cells 0 SEEN, Urine Bacteria 0 SEEN, Urine Mucus 0 SEEN Radiography Diagnostic Testing: Radiology Impression Abdomen/Pelvis CT 03/12/23 16:51 IMPRESSION: Findings suspicious for cystitis. Correlate with urinalysis. Mild bilateral pelviectasis with no obstructing stone seen. Retroperitoneal lymphadenopathy of uncertain etiology. 3.2 cm intermediate density cyst in the left upper renal pole it is indeterminate.. Recommend multiphase MR abdomen with and without contrast renal mass protocol. 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 Electronically Signed: Kennedy Day MD at 19:35 EDT , Physical Exam Narrative GENERAL: cooperative HEENT: Atraumatic; normocephalic EYES; Anicteric, Normal Conjunctiva NECK; supple, normal thyroid, RESPIRATORY: Diminished to auscultation CARDIOVASCULAR: Regular S1 S2, GI: soft, normoactive bowel sounds, : No Renal angle tenderness; EXTREMITIES: No edema, no clubbing, MUSCULOSKELETAL: no muscle wasting NEURO: Awake; no lateralizing signs. SKIN: No Rash PSYCH; Flat affect Assessment & Plan Assessment/Plan (1) Urinary retention: PLAN: Plan Patient is an 82-year-old gentleman With history of recent hospitalization with staph UTI discharged home with a Hood catheter due to urinary retention admitted with nausea vomiting and dizziness 1. Intractable nausea vomiting ? Suspected to be secondary to acute urinary tract infection. Patient had recently grown staph patient was started on ciprofloxacin repeat cultures sent. Patient also has a stone and plan is for cystolitholapaxy removal of the bladder stone and possible TURP on 03/14/[address] Cooper 2. Urinary retention ? Status post Hood catheter placement followed by urology 3. History of prostate CA ? Follows with Dr. Bush with oncology as noted above. Diagnosed with prostate cancer stage IIa in 2015, completed radiation therapy in July 2015 and received LHRH agonist for treatment via Dr. Cooper with Urology 4. 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 Status post cardiac 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 therapy defibrillator placement. Patient is on carvedilol did continue on Entresto held given low blood pressure and impaired kidney function 5. Anemia - Secondary to chronic disorder monitoring H&H and transfuse if patient becomes symptomatic or hemoglobin falls below 7 6. Chronic lymphocytic leukemia with significant leukocytosis ? Followed by oncology 7. Chronic kidney disease stage III ? Kidney function at baseline 8. Dyslipidemia -Patient is on statin therapy, continued at home dose 9. DVT prophylaxis ? Started on SC heparin Time spent in the patient's overall evaluation,decision-making process, review of diagnostic data, adjustment of management, discussion with other providers, nursing nursing and ancillary staff involved in patient's care documentation,50 Minutes Charges/Coding Visit Charges Inpatient E&M: 15452 Subs Hosp L3
--- NOTE | 2023-03-13 10:33 | CASEMGMT ---
Social Work SW met with pt to discuss advance directives.? SW explained living will and health care POA and pt states he has not completed these documents. Pt was accepting of written information and Advance Directive Rack Card provided. Pt will discuss with his spouse and is aware he can make an appointment with SW as an outpatient. CARLEY Majano
--- NOTE | 2023-03-13 13:10 | OP.CCLET_ITS ---
03/13/2023 Jorge Luis Justice Re : Upper GI endoscopy procedure for Jaime Meader Riccardo This procedure was performed on Monday, March 13, 2023. My impressions and recommendations are as follows: Impressions : - LA Grade B reflux esophagitis with no bleeding. Biopsied. - No gross lesions in the stomach. - Small hiatal hernia. - Congested duodenal mucosa. Biopsied. - Non-bleeding duodenal diverticulum. - Nodular mucosa in the area of the papilla. Biopsied. Recommendations : - Return patient to hospital [facility] for ongoing care. - Full liquid diet. - Use Protonix (pantoprazole) 40 mg PO BID for 4 weeks. -It is likely he has vestibular causes of nausea vomiting therefore first-line agents would be antihistamines, anticholinergics or dopamine antagonist. He should have IV metoclopramide and transition to oral for a 1 week course of 5 mg IV every 6 hours and transition to oral over 7 days, antihistamines at night (such as 25 to 50 mg of Benadryl at night ) for 3 to 5 days and avoiding anticholinergics due to his history of urinary retention. - Continue present medications. My findings are described in the full procedure note, which is enclosed. If I can be of further assistance, please feel free to contact me at . Sincerely, Harpreet Hartman, 03/13/2023 1:09:51 PM This report has been signed electronically.
--- NOTE | 2023-03-13 13:10 | OP.EGD_ITS ---
Patient Name: Jaime Ann Procedure Date: 03/13/2023 12:36 PM Date of : 1940 Age: 82 Procedure: Upper GI endoscopy Indications: Dyspepsia, Indigestion Providers: Harpreet Hartman DO Medicines: Monitored Anesthesia Care Patient Profile: This is an 82 year old male. Refer to note in patient chart for documentation of history and physical. Patient has symptoms of chronic vomiting. Complications: No immediate complications. Procedure: Pre-Anesthesia Assessment: - Prior to the procedure, a History and Physical was performed, and patient medications and allergies were reviewed. The patient is competent. The risks and benefits of the procedure and the sedation options and risks were discussed with the patient. All questions were answered and informed consent was obtained. Patient identification and proposed procedure were verified by the physician in the pre-procedure area. Mental Status Examination: alert and oriented. Airway Examination: normal oropharyngeal airway and neck mobility. Respiratory Examination: clear to auscultation. CV Examination: normal. Prophylactic Antibiotics: The patient does not require prophylactic antibiotics. Prior Anticoagulants: The patient has taken no anticoagulant or antiplatelet agents. ASA Grade Assessment: II - A patient with mild systemic disease. After reviewing the risks and benefits, the patient was deemed in satisfactory condition to undergo the procedure. The anesthesia plan was to use monitored anesthesia care (MAC). Immediately prior to administration of medications, the patient was re-assessed for adequacy to receive sedatives. The heart rate, respiratory rate, oxygen saturations, blood pressure, adequacy of pulmonary ventilation, and response to care were monitored throughout the procedure. The physical status of the patient was re-assessed after the procedure. After obtaining informed consent, the endoscope was passed under direct vision. Throughout the procedure, the patient's blood pressure, pulse, and oxygen saturations were monitored continuously. The Endoscope was introduced through the mouth, and advanced to the second part of duodenum. The upper GI endoscopy was accomplished without difficulty. The patient tolerated the procedure well. Scope In: 12:49:55 PM Scope Out: 12:56:09 PM Total Procedure Duration Time 0 hours 6 minutes 14 seconds Findings: LA Grade B (one or more mucosal breaks greater than 5 mm, not extending between the tops of two mucosal folds) esophagitis with no bleeding was found 37 to 39 cm from the incisors. Biopsies were taken with a cold forceps for histology. Verification of patient identification for the specimen was done. Estimated blood loss was minimal. No gross lesions were noted in the stomach. A small hiatal hernia was present. Localized moderately congested mucosa without active bleeding and with no stigmata of bleeding was found in the duodenal bulb. Biopsies were taken with a cold forceps for histology. Verification of patient identification for the specimen was done. Estimated blood loss was minimal. A 5 mm non-bleeding diverticulum was found in the second portion of the duodenum. Localized nodular mucosa was found in the area of the papilla. Biopsies were taken with a cold forceps for histology. Verification of patient identification for the specimen was done. Estimated blood loss was minimal. Impression: - LA Grade B reflux esophagitis with no bleeding. Biopsied. - No gross lesions in the stomach. - Small hiatal hernia. - Congested duodenal mucosa. Biopsied. - Non-bleeding duodenal diverticulum. - Nodular mucosa in the area of the papilla. Biopsied. Recommendation: - Return patient to [facility] for ongoing care. - Full liquid diet. - Use Protonix (pantoprazole) 40 mg PO BID for 4 weeks. -It is likely he has vestibular causes of nausea vomiting therefore first-line agents would be antihistamines, anticholinergics or dopamine antagonist. He should have IV metoclopramide and transition to oral for a 1 week course of 5 mg IV every 6 hours and transition to oral over 7 days, antihistamines at night (such as 25 to 50 mg of Benadryl at night ) for 3 to 5 days and avoiding anticholinergics due to his history of urinary retention. - Continue present medications. Procedure Code(s): --- Professional --- 14204, Esophagogastroduodenoscopy, flexible, transoral; with biopsy, single or multiple CPT copyright 2021 [employer]. All rights reserved. The codes documented in this report are preliminary and upon rouge sifter and miller review may be revised to meet current compliance requirements. Harpreet Hartman DO 03/13/2023 1:09:51 PM This report has been signed electronically. Number of Addenda: 0 Note Initiated On: 03/13/2023 12:36 PM
[2023-03-13] MEDS: Carvedilol 25 MG Tablet PO ×2 (14:03→22:21)
[2023-03-13] MEDS: Tamsulosin HCl 0.4 MG Capsule PO (14:03)
[2023-03-13] MEDS: Cefepime HCl 1 GM in 0.9% Normal Saline (50mL MB+) 50 ML IV (14:08)
--- NOTE | 2023-03-13 15:31 | CHAPLAIN ---
Type of Pastoral Visit _x__ Initial Visit ___ Follow-up Visit ___ On-call Visit ___ General Patient Visit ___ Spiritual Assessment ___ Family Conference ___ Bereavement ___ Rapid Response ___ Code Blue ___ Other (describe below) Pastoral Care Referral From _x__ Patient _x__ Family ___ Nurse ___ Physician ___ Heavy Mobile Equipment Repairer ___ Western Philosophy Professor ___ Other (describe below) Sacrament/Intervention _x__ Active listening ___ Anointing ___ Synagogue ___ Bereavement ___ Communion _x__ Dipika exploration ___ _x__ Life review _x__ Prayer ___ Reconciliation ___ Sacrament of Sick ___ Supportive presence ___ Wedding ___ Other (describe below) Pastoral Comments found patient in the room along with his and his design assistant; conversation continued as pt talks about his own needs and for the planned surgery; pt and spouse talk about a rough year it has been and how they hope for a better year next year; pt is active in his pentecostal and has a dipika in [place] which helps him; pt has family support as well;
--- NOTE | 2023-03-13 15:52 | CASEMGMT ---
RN JUAN Readmission Note: Index Diagnosis: orthostatic hypotension Admission Dates: 03/05/23-03/08/23 Disposition: Home with rx for outpt therapy for balance and vestibular treatment Current Diagnosis: nausea, vomiting, hydronephrosis, failed therapy Pt was a direct admit from 's office. Pt had follow up appt with uro and hutchinson was removed. Pt reported N/V that he contributed to his atb cipro and from the iron. Pt had EGD today with GI c/s and is scheduled for cysto with litholapaxy tomorrow. No therapy currently ordered as pt 6clicks=20. RAMONITA MARTINEZ into pt room, pt states his dizziness is better than prior. He states once home he did have his rx picked up and had taken all meds as ordered but then stopped the cipro and iron. Pt has a WW at home but did not need to use, steady on feet without AD. Pt had not had time to follow up with PCP and did not have labs drawn prior to rehospitalization. Pt states he has been up in the halls, encouraged him to continue this with staff member. Pt present in the room. Pt does not feel he will have any homegoing dc needs. Pt aware RAMONITA MARTINEZ will continue to follow. DC Plan: Home, pt still has outpt therapy rx
[2023-03-13] MEDS: Ensure Plus High Protein 120 ML LIQUID PO (17:57)
[2023-03-13] MEDS: Atorvastatin Calcium 10 MG Tablet PO (22:21)
[2023-03-14] VITALS (11 sets, daily range): BP systolic 146–184; BP diastolic 59–95; PULSE 58–76; RESP 14–18; TEMP 36.6–37.7; O2SAT 92–96; BMI 24.7
[2023-03-14] MEDS: 0.9% Normal Saline (1000mL) 1,000 ML 75 ML IV ×2 (04:50→16:05)
--- NOTE | 2023-03-14 06:00 | EKG12_ITS ---
Test Reason : PRE-OP Blood Pressure : / mmHG Vent. Rate : 066 BPM Atrial Rate : 066 BPM P-R Int : 000 ms QRS Dur : 180 ms QT Int : 488 ms P-R-T Axes : 000 212 045 degrees QTc Int : 511 ms AV dual-paced rhythm Biventricular pacemaker detected Abnormal ECG When compared with ECG of 04-MAR-2023 12:53, Vent. rate has decreased BY 3 BPM Confirmed by AMIRA MCKEON, TASNEEM ([id number]), medical editor CINTHIA MCGARRY ([id number]) on 03/26/2023 10:45:17 AM Referred By: PAULINE Confirmed By:JUDITH COLLIER MD
[2023-03-14 06:54] LABS: Absolute Lymphocyte Count 61.17 X10^3/uL (0.83-4.51); Absolute Neutrophil Count 6.7 X10^3/uL (2.0-7.7); Basophil# 0.32 X10^3/uL; Basophil% 0.5 % (0-1); Eosinophil# 0.18 X10^3/uL; Eosinophils% 0.3 % (0-5); Hematocrit 30.8 % (40-54); Hemoglobin 8.9 g/dL (13.0-16.5); Lymphocyte # 61.17 X10^3/ul (0.83-4.51); Lymphocyte % 88.3 % (19-41); Mean Corp Hgb Conc 28.9 g/dL (32-36); Mean Corpuscular Hgb 25.6 pg (27.0-32.0); Mean Corpuscular Volume 88.5 fL (80-94); Mean Platelet Vol. 9.8 fl (6.2-12.0); Monocyte# 0.56 X10^3/uL; Monocyte% 0.8 % (0-10); NRBC Flagged by Analyzer 0 % (0-5); Neutrophil # 6.68 X10^3/uL (2.7-7.7); Neutrophil % 9.5 % (47-70); POSITIVE COUNT YES; POSITIVE DIFFERENTIAL YES; Platelet Count 298 K/mm3 (150-450); RBC Distribution Width CV 18.9 % (11.6-14.6); RBC Distribution Width SD 59.3 fl (35.1-43.9); Red Blood Count 3.48 M/mm3 (4.6-6.2)
--- NOTE | 2023-03-14 07:00 | PCM.PN.GU ---
Subjective Subjective N.p.o., plan for cystoscopy laser bladder stones and transurethral section of prostate Objective Data Objective Data Vital Signs: Vital Signs Temp Pulse Resp BP Pulse Ox O2 Del Method 98.2 F 62 16 173/74 H 94 Room Air 03/14/23 04:49 03/14/23 04:49 03/14/23 04:49 03/14/23 04:49 03/14/23 04:49 03/14/23 04:49 Oxygen Delivery Method Room Air Weight: 73.9 kg Body Mass Index (BMI) 24.7 Intake & Output: Intake and Output for Last 24 Hours 03/12/23 03/13/23 03/14/23 23:59 23:59 23:59 Intake Total 300 / 300 2028.75 / 2328.75 1116.25 / 1116.25 Output Total 500 / 500 375 / 675 600 / 600 Balance -200 / -200 1653.75 / 1653.75 516.25 / 516.25 Lab / Micro Data 03/12/23 18:17 03/12/23 18:17
[2023-03-14 07:06] LABS: Differential Indicated SCAN CRITERIA MET; White Blood Count 69.3 K/mm3 (4.4-11.0)
[2023-03-14 07:08] LABS: International Normalized Ratio 1.1; Prothrombin Time (Protime)PT. 14.2 SECONDS (11.7-14.9)
[2023-03-14 07:09] LABS: Partial Thromboplast Time 26.3 Seconds (24.1-36.2)
[2023-03-14 07:37] LABS: Differential Comment SCANNED
[2023-03-14 07:50] LABS: Anion Gap 10 (5-15); BUN 24 mg/dL (7-18); BUN/Creat Ratio 14.5 RATIO (10-20); Calcium,Total 7.5 mg/dL (8.5-10.1); Chloride 113 mmol/L (98-107); Creatinine, Serum 1.65 mg/dL (0.70-1.30); EST Glomerular Filtration Rate 42 mL/min (>60); Est Glom Filt Rate - Afr Amer 51 mL/min (>60); Estimated Creatinine Clearance 32.24 ml/min; Glucose 91 mg/dL (74-106); Magnesium 1.9 mg/dL (1.6-2.6); Phosphorus 2.8 mg/dL (2.5-4.9); Potassium 3.7 mmol/L (3.5-5.1); Sodium Level 144 mmol/L (136-145)
--- NOTE | 2023-03-14 08:11 | PCM.PN.HOSP ---
Reason for Visit Reason for Visit: Diagnoses Malignant neoplasm of prostate (03/12/23) Chronic lymphocytic leukemia of B-cell type not having achieved remission (03/12/23) Anemia, unspecified (03/12/23) Orthostatic hypotension (03/12/23) Acute kidney failure, unspecified (03/12/23) Urinary tract infection, site not specified (03/12/23) Retention of urine, unspecified (03/12/23) Dizziness and giddiness (03/12/23) Unspecified fall, initial encounter (03/12/23) Personal history of leukemia (03/12/23) Subjective Subjective Patient is scheduled to undergo cystoscopy laser bladder stones and transurethral section of prostate Objective Data Objective Data Vital Signs: Vital Signs Temp Pulse Resp BP Pulse Ox O2 Del Method 98.2 F 62 16 173/74 H 94 Room Air 03/14/23 04:49 03/14/23 04:49 03/14/23 04:49 03/14/23 04:49 03/14/23 04:49 03/14/23 04:49 Oxygen Delivery Method Room Air Weight: 73.9 kg Body Mass Index (BMI) 24.7 Intake & Output: Intake and Output for Last 24 Hours 03/12/23 03/13/23 03/14/23 23:59 23:59 23:59 Intake Total 300 / 300 2028.75 / 2328.75 1116.25 / 1116.25 Output Total 500 / 500 375 / 675 600 / 600 Balance -200 / -200 1653.75 / 1653.75 516.25 / 516.25 Lab / Micro Data 03/14/23 05:40 03/14/23 05:40 Labs: Laboratory Results - last 24 hr 03/14/23 05:40: WBC 69.3 H*, RBC 3.48 L, Hgb 8.9 L, Hct 30.8 L, MCV 88.5, MCH 25.6 L, MCHC 28.9 L, RDW Std Deviation 59.3 H, RDW Coeff of Willie 18.9 H, Plt Count 298, MPV 9.8, Immature Gran % (Auto) 0.600, Neut % (Auto) 9.5 L, Lymph % (Auto) 88.3 H, [place] % (Auto) 0.8, Eos % (Auto) 0.3, Baso % (Auto) 0.5, Absolute Neuts (auto) 6.7, Absolute Lymphs (auto) 61.17 H, Nucleated RBC % 0, Differential Comment SCANNED, Diff Path Review September foll, PT 14.2, INR 1.1, APTT 26.3, Sodium 144, Potassium 3.7, Chloride 113 H, Carbon Dioxide 21.0, Anion Gap 10, BUN 24 H, Creatinine 1.65 H, Estim Creat Clear Calc 32.24, Est GFR (MDRD) Af Amer 51 L, Est GFR (MDRD) Non-Af 42 L, BUN/Creatinine Ratio 14.5, Glucose 91, Calcium 7.5 L, Phosphorus 2.8, Magnesium 1.9 Physical Exam Narrative GENERAL: cooperative HEENT: Atraumatic; normocephalic EYES; Anicteric, Normal Conjunctiva NECK; supple, normal thyroid, RESPIRATORY: Diminished to auscultation CARDIOVASCULAR: Regular S1 S2, GI: soft, normoactive bowel sounds, : No Renal angle tenderness; EXTREMITIES: No edema, no clubbing, MUSCULOSKELETAL: no muscle wasting NEURO: Awake; no lateralizing signs. SKIN: No Rash PSYCH; Flat affect Assessment & Plan Assessment/Plan (1) Urinary retention: PLAN: Plan Patient is an 82-year-old gentleman With history of recent hospitalization with staph UTI discharged home with a Hood catheter due to urinary retention admitted with nausea vomiting and dizziness 1. Intractable nausea vomiting ? Suspected to be secondary to acute urinary tract infection. Patient had recently grown staph patient was started on ciprofloxacin repeat cultures sent. Patient also has a stone and plan is for cystolitholapaxy removal of the bladder stone and possible TURP on 03/14/[address] Cooper ? 03/14/2023; Patient is scheduled to undergo cystoscopy laser bladder stones and transurethral section of p 2. Urinary retention ? Status post Hood catheter placement followed by urology 3. History of prostate CA ? Follows with Dr. Bush with oncology as noted above. Diagnosed with prostate cancer stage IIa in 2015, completed radiation therapy in July 2015 and received LHRH agonist for treatment via Dr. Cooper with Urology 4. 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 Status post cardiac 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 therapy defibrillator placement. Patient is on carvedilol did continue on Entresto held given low blood pressure and impaired kidney function 5. Anemia - Secondary to chronic disorder monitoring H&H and transfuse if patient becomes symptomatic or hemoglobin falls below 7 6. Chronic lymphocytic leukemia with significant leukocytosis ? Followed by oncology 7. Chronic kidney disease stage III ? Kidney function at baseline 8. Dyslipidemia -Patient is on statin therapy, continued at home dose 9. DVT prophylaxis ? Started on SC heparin Time spent in the patient's overall evaluation,decision-making process, review of diagnostic data, adjustment of management, discussion with other providers, nursing nursing and ancillary staff involved in patient's care documentation, 35 Minutes Charges/Coding Visit Charges Inpatient E&M: 25157 Subs Hosp L2
[2023-03-14] MEDS: Cefepime HCl 1 GM in 0.9% Normal Saline (50mL MB+) 50 ML IV (09:35)
[2023-03-14] MEDS: Carvedilol 25 MG Tablet PO ×2 (09:36→21:02)
[2023-03-14 13:32] LABS: Pathologist Review Reviewed
[2023-03-14 13:41] LABS: Pathologist Review Reviewed
--- NOTE | 2023-03-14 14:58 | NURSING ---
talked with [facility] device nurse about pt's defiberlator- nurse given all info about pt's surgery and she states since surgery is below umbilicus no intervention is needed. but she said if they want to put a magnet on they can and just remove after surgery is completed. pacer form sent to device clinic to be filled out. this info given to the surgery team
--- NOTE | 2023-03-14 15:24 | OP.PCM_ITS ---
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 Went to the bladder with a 21 Marshallese rigid cystourethroscope the entire length of the urethra is normal no scar tissues or abnormalities and along the urethra sphincter was intact went through the prostate into the bladder I then identified a stone that was in the base of the bladder this was seen on CAT scan I used 1000 ?m laser fiber laser the stone little tiny pieces and then all the pieces then evacuated out of the bladder I then used the 24 Marshallese noncontinuous flow Olympus bipolar resectoscope used the obturator lens to get into the prostate identified the prostate anatomy the verumontanum the sphincter of the bladder neck I then used the button and there was a short but obstructive prostate we used the button then the shave open the prostate and got a nice wide open channel after using the button there was minimal tissue so no specimen I then cauterized extensively to control for bleeding and then we put a 22 Marshallese catheter in the bladder for continuous bladder irrigation patient anesthetic was reversed taken back to PACU in good condition and will remove the catheter tomorrow for voiding trial and successfully removed the stone from his bladder. Surgeon: Henry Cooper Type of Anesthesia: General Drains: 22fr 3 way Estimated Blood Loss (mL): 0 Admit VTE Documentation VTE Present on Admission: No VTE Mechan Device Prophylaxis: SCD's VTE Pharm Prophylaxis ordered?: No
--- NOTE | 2023-03-14 16:05 | CALC_PTH ---
PATIENT: BIGG LONG LOC: MS3 U#:[id number] AGE/SX: 82/M ROOM: W[facility]312 RE03/12/[address]: Dr. Onesimo Cavazos MD : 1940 BED: 1 DIS: 03/15/2023 SPEC #: [id number] RECD: 03/14/23 18:10 STATUS: KAJAL MASTERS #: [id number] SHANON: 03/14/23 16:[address]: Henry Cooper DEPT: SURGICAL PATHOLOGY RECD BY: Krys Miller ENTERED: 03/15/23 09:04 SP TYPE: Calculi OTHR DR: MD Dr. Henry Jurado MD Dr. Nicholas F Kotsonis, MD Dr. Rahsaan Friend, DO Ryan Baltes, NP-C Tissues: CALCULI Procedures: Surgery Specimen Level I Comments: @ Ordering doctor for PALMA edited from to @ by ORLIN at 03/15/23 1515 @ Submitting doctor edited from to @ by ORLIN at 03/15/23 1515 HEADER OPERATION: Cysto, litholapaxy, laser bladder stone extraction, transurethral PRE-OP DIAGNOSIS: Bladder stone, BPH, obstruction TISSUE SUBMITTED: Bladder stones GROSS DIAGNOSIS Fragments of stone, clinically bladder stone (gross only). CHRIS:ariana 03/16/2023 MICROSCOPIC DESCRIPTION Slides are reviewed. GROSS DESCRIPTION Received without fixative labeled with the patient's name and designated bladder stone. The specimen consists of multiple fragments of brown irregular stone measuring in aggregate 1.5 x 1.0 x 0.3 cm. The specimen is for gross identification only. The entire specimen is saved if stone analysis is requested. / CHRIS:ariana 03/15/2023 CPT: 07410
[2023-03-14] MEDS: Ensure Plus High Protein 120 ML LIQUID PO (17:48)
--- NOTE | 2023-03-14 19:07 | PN.GI_ITS ---
Subjective Subjective Patient underwent an upper endoscopy yesterday. He is scheduled to undergo urologic procedure today. His nausea is a lot better. It he was able to eat some clear liquids overnight. He denies any chest pain or shortness of breath. Objective Data Objective Data Vital Signs: Vital Signs Temp Pulse Resp BP Pulse Ox O2 Del Method 97.9 F 58 L 16 178/95 H 95 Room Air 03/14/23 17:18 03/14/23 17:18 03/14/23 17:18 03/14/23 17:18 03/14/23 17:18 03/14/23 17:18 Oxygen Delivery Method Room Air Weight: 162 lb 14.746 oz Body Mass Index (BMI) 24.7 Intake & Output: Intake and Output for Last 24 Hours 03/12/23 03/13/23 03/14/23 23:59 23:59 23:59 Intake Total 300 / 300 2028.75 / 2328.75 2166.25 / 2166.25 Output Total 500 / 500 375 / 675 2900 / 2900 Balance -200 / -200 1653.75 / 1653.75 -733.75 / -733.75 Lab / Micro Data 03/14/23 05:40 03/14/23 05:40 Labs: Laboratory Results - last 24 hr 03/12/23 18:17: Diff Path Review Reviewed 03/14/23 05:40: WBC 69.3 H*, RBC 3.48 L, Hgb 8.9 L, Hct 30.8 L, MCV 88.5, MCH 25.6 L, MCHC 28.9 L, RDW Std Deviation 59.3 H, RDW Coeff of Willie 18.9 H, Plt Count 298, MPV 9.8, Immature Gran % (Auto) 0.600, Neut % (Auto) 9.5 L, Lymph % (Auto) 88.3 H, [place] % (Auto) 0.8, Eos % (Auto) 0.3, Baso % (Auto) 0.5, Absolute Neuts (auto) 6.7, Absolute Lymphs (auto) 61.17 H, Nucleated RBC % 0, Differential Comment SCANNED, Diff Path Review Reviewed, PT 14.2, INR 1.1, APTT 26.3, Sodium 144, Potassium 3.7, Chloride 113 H, Carbon Dioxide 21.0, Anion Gap 10, BUN 24 H, Creatinine 1.65 H, Estim Creat Clear Calc 32.24, Est GFR (MDRD) Af Amer 51 L, Est GFR (MDRD) Non-Af 42 L, BUN/Creatinine Ratio 14.5, Glucose 91, Calcium 7.5 L, Phosphorus 2.8, Magnesium 1.9 Physical Exam Narrative GENERAL: cooperative HEENT: Atraumatic; normocephalic EYES; Anicteric, Normal Conjunctiva NECK; supple, normal thyroid, RESPIRATORY: Diminished to auscultation CARDIOVASCULAR: Regular S1 S2, GI: soft, normoactive bowel sounds, : No Renal angle tenderness; EXTREMITIES: No edema, no clubbing, MUSCULOSKELETAL: no muscle wasting NEURO: Awake; no lateralizing signs. SKIN: No Rash PSYCH; Flat affect Assessment & Plan Assessment/Plan (1) Urinary retention: PLAN: Plan 82-year-old with past medical history of CLL, prostate cancer status post rati on, CKD stage III and recent urinary tract infection with obstructive uropathy status post Hood and removal Urinary retention with hydronephrosis/history of prostate cancer/nausea and vomiting ? He thinks that the nausea and vomiting is due to his iron and Cipro but is also been having dizziness for the last 6 months He will undergo an upper endoscopy to make sure it is not an acute GI pathology contributing to his nausea and vomiting. If that is normal then I will treat him accordingly. He was explained alternatives, risk, benefits include not withstanding bleeding, infection, sepsis, perforation, need for emergency to . Have an ASA of 3. Chronic systolic CHF/HTN/HLD ? Seems to be stable and not contributing to his nausea vomiting 03/14- Findings from EGD include: LA Grade B (one or more mucosal breaks greater than 5 mm, not extending between the tops of two mucosal folds) esophagitis with no bleeding was found 37 to 39 cm from the incisors. Biopsies were taken with a cold forceps for histology. Verification of patient identification for the specimen was done. Estimated blood loss was minimal. No gross lesions were noted in the stomach. A small hiatal hernia was present. Localized moderately congested mucosa without active bleeding and with no stigmata of bleeding was found in the duodenal bulb. Biopsies were taken with a cold forceps for histology. Verification of patient identification for the specimen was done. Estimated blood loss was minimal. A 5 mm non-bleeding diverticulum was found in the second portion of the duodenum. Localized nodular mucosa was found in the area of the papilla. Biopsies were taken with a cold forceps for histology. Verification of patient identification for the specimen was done. Estimated blood loss was minimal. Continue supportive care as patient is getting a lot better. Await biopsy results. Charges/Coding Visit Charges Inpatient E&M: 01233 Subs Hosp L3
[2023-03-14] MEDS: Atorvastatin Calcium 10 MG Tablet PO (21:02)
[2023-03-15 00:12] VITALS: BP 147/56; PULSE 59; RESP 16; TEMP 37.2; O2SAT 95; BMI 24.7
[2023-03-15 05:02] VITALS: BP 176/74; PULSE 59; RESP 16; TEMP 37.1; O2SAT 96; BMI 24.7
[2023-03-15] MEDS: 0.9% Normal Saline (1000mL) 1,000 ML 75 ML IV (05:05)
[2023-03-15 06:37] VITALS: BP 149/69
--- NOTE | 2023-03-15 07:14 | DS.PCM_ITS ---
Providers Date of Admission: 03/12/23 Primary Care Physician: RENETTA Justice Consultations 03/12/23 16:46 Consult: Gastroenterology Routine Consulting Provider: Harpreet Hartman Reason for Consult: persistent nausea vomiting EMERGENT Consult: No Notified: Yes Date Notified: 03/12/23 Time Notified: 16:47 Method of Notification: Text Consult: Hospitalist Routine Consulting Provider: Braxton Powers Reason for Consult: medical management EMERGENT Consult: No Notified: Yes Date Notified: 03/12/23 Time Notified: 16:46 Method of Notification: Text Reason For Visit: NAUSEA,VOMITING,HYDRONEPHROSIS,FAILED THERAPY Diagnosis Discharge Diagnosis (1) Urinary retention: Status: Acute Code(s): R33.9 - Retention of urine, unspecified Plan: Hutchinson out voiding trial tonight nurse instructed to replace hutchinson if can't void Plan persistent Nausea and vomiting not feeling well hutchinson removed for a void trial medical consult consult for nausea and vomiting will also order imaging Medications at Discharge Home Medications multivitamin (Daily Multiple tablet) 1 ea PO DAILY 03/15/15 cholecalciferol (vitamin D3) 25 mcg (1,000 unit) capsule (Vitamin D3) 1,000 unit PO DAILY 08/09/16 carvedilol 25 mg tablet 25 mg PO BID 08/24/16 glucosamine 750 [id number] no1 644 mg-C 30 mg-gilson 1 mg tablet (Osteo Bi-Flex Triple Strength) 1 ea PO DAILY 08/24/16 sacubitril 49 mg-valsartan 51 mg tablet (Entresto) 1 tab PO BID 08/24/22 zinc acetate 50 mg (zinc) capsule 50 mg PO DAILY 08/24/22 atorvastatin 10 mg tablet 10 mg PO DAILY 03/04/23 polysaccharide iron complex 150 mg iron capsule (Ferrex) 150 mg PO DAILY #30 caps 03/06/23 tamsulosin 0.4 mg capsule 0.4 mg PO DAILY 30 days #30 caps 03/06/23 ciprofloxacin HCl 500 mg tablet (Cipro) 500 mg PO BID #10 tabs 03/15/23 ondansetron 4 mg disintegrating tablet 4 mg PO Q6H PRN nausea and vomiting #10 tabs 03/15/23 Hospital Course Summary of Care Provided Minutes Spent on Discharge: 35 Hospital Course: 82-year-old male was admitted to the hospital persistent nausea vomiting UTI CT scan was done demonstrated a stone in the bladder also was seen by gastroenterology biopsies pending. Patient underwent a cystoscopy evacuation laser of the bladder stone also went TURP with a bipolar Olympus. Today we will remove the Hutchinson catheter for voiding trial. He will be given Cipro for his UTI infection with Staph aureus pansensitive. But he has been feeling better since admission no more nausea or vomiting. Feels ready to be discharged. So we will discharge him home today with Cipro for the UTI for few more days, and ondansetron as necessary for nausea vomiting follow-up with me in the office and that he will follow-up with all his other primary personal care aide. Physical Exam Const alert and oriented x3 General Appearance: cooperative HEENT normocephalic, head/scalp atraumatic, EAC's normal and TM's normal bilaterally Eyes PERRL and EOMs intact bilaterally Pupil: sluggish Neck no lymphadenopathy, supple and no JVD General: trachea midline Lymph Lymphatic: no lymphadenopathy noted, lymphedema and lymphadenopathy Resp normal respiratory effort, normal air movement and clear to auscultation bilaterally Cardio regular rate, regular rhythm and peripheral pulses 2+ throughout GI soft to palpation, non-tender and non-distended Extremity normal capillary refill and no clubbing, cyanosis or edema General Extremity: no tenderness to palpation of joints or extremities Skin no rashes or lesions noted General Skin Exam: turgor normal Lesions: no lesions Rashes: no rashes Neuro CN's II-XII intact bilaterally Speech: speech normal Motor Exam: strength 5/5 throughout; Negative for general weakness Psych thought process normal, cooperative and affect normal Appearance: appropriate Medical Records Data Attestation: I reviewed the patient's medical records Weight / BMI Weight Weight: 73.9 kg Body Mass Index (BMI) 24.7 ABG / Lab / Microbiology Data 03/14/23 05:40 03/14/23 05:40 Laboratory: Laboratory Results - last 24 hr 03/12/23 18:17: Diff Path Review Reviewed 03/14/23 05:40: Differential Comment SCANNED, Diff Path Review Reviewed, Sodium 144, Potassium 3.7, Chloride 113 H, Carbon Dioxide 21.0, Anion Gap 10, BUN 24 H, Creatinine 1.65 H, Estim Creat Clear Calc 32.24, Est GFR (MDRD) Af Amer 51 L, Est GFR (MDRD) Non-Af 42 L, BUN/Creatinine Ratio 14.5, Glucose 91, Calcium 7.5 L , Phosphorus 2.8, Magnesium 1.9 D/C Instructions Discharge Diet: No restrictions Discharge Activity: Return to Normal Activity Call your doctor if you observe: Fever of 101 or Higher Please Follow Up With: Henry Cooper MD When: 2 weeks Meaningful Use Info Meaningful Use Diagnoses (Choose all that apply): None applicable Discharge Plan Admission Admit Date/Time: 03/12/23 17:08 Primary Reason for Your Visit: bladder stone, and TURP, UTI Attending Provider: Onesimo Cavazos Primary Care Provider: German Gu NP Consulting Providers: Harpreet Hartman; Braxton Powers; Henry Cooper Discharge Orders/Prescriptions Prescriptions: New ciprofloxacin HCl [Cipro] 500 mg tablet 500 mg PO BID Qty: 10 0RF ondansetron 4 mg tablet,disintegrating 4 mg PO Q6H PRN (Reason: nausea and vomiting) Qty: 10 0RF Continued Entresto 49-51 mg tablet 1 tab PO BID Hold Instructions: Resume on 03/15/23. zinc acetate 50 mg (zinc) capsule 50 mg PO DAILY multivitamin [Daily Multiple] 1 EACH tablet 1 ea PO DAILY Patient Comments: SUPPLEMENT cholecalciferol (vitamin D3) [Vitamin D3] 1,000 UNIT capsule 1,000 unit PO DAILY carvedilol 25 MG tablet 25 mg PO BID Osteo Bi-Flex Triple Strength 1 EACH tablet 1 ea PO DAILY atorvastatin 10 mg tablet 10 mg PO DAILY polysaccharide iron complex [Ferrex 150] 150 mg iron Capsule 150 mg PO DAILY Qty: 30 0RF tamsulosin 0.4 mg Capsule 0.4 mg PO DAILY 30 Days Qty: 30 0RF Discontinued ciprofloxacin HCl [Cipro] 250 mg tablet 250 mg PO Q12H 7 Days Qty: 14 0RF Rx Instructions: Starting 03/07 Referrals / Follow Up: German Gu NP, WET MACHINE CUTTER-C [Primary Care Provider] - Henry Cooper MD [Med Staff - Active Staff] - Disposition Discharge Orders: Discharge Patient (Routine); Ordered 03/15/23 Ordered By: Dr. Henry Cooper
[2023-03-15 07:36] LABS: Absolute Lymphocyte Count 55.55 X10^3/uL (0.83-4.51); Absolute Neutrophil Count 10.9 X10^3/uL (2.0-7.7); Basophil# 0.17 X10^3/uL; Basophil% 0.2 % (0-1); Eosinophil# 0.16 X10^3/uL; Eosinophils% 0.2 % (0-5); Hematocrit 28.3 % (40-54); Hemoglobin 8.3 g/dL (13.0-16.5); Lymphocyte # 55.55 X10^3/ul (0.83-4.51); Lymphocyte % 80.9 % (19-41); Mean Corp Hgb Conc 29.3 g/dL (32-36); Mean Corpuscular Hgb 25.8 pg (27.0-32.0); Mean Corpuscular Volume 87.9 fL (80-94); Mean Platelet Vol. 9.9 fl (6.2-12.0); Monocyte# 1.46 X10^3/uL; Monocyte% 2.1 % (0-10); NRBC Flagged by Analyzer 0 % (0-5); Neutrophil # 10.88 X10^3/uL (2.7-7.7); POSITIVE COUNT YES; POSITIVE DIFFERENTIAL YES; POSITIVE MORPHOLOGY YES; Platelet Count 243 K/mm3 (150-450); RBC Distribution Width SD 59.6 fl (35.1-43.9); Red Blood Count 3.22 M/mm3 (4.6-6.2)
[2023-03-15 07:58] LABS: Differential Indicated SCAN CRITERIA MET; White Blood Count 68.6 K/mm3 (4.4-11.0)
[2023-03-15 08:09] LABS: Anion Gap 9 (5-15); BUN 28 mg/dL (7-18); BUN/Creat Ratio 16.8 RATIO (10-20); Calcium,Total 7.5 mg/dL (8.5-10.1); Chloride 113 mmol/L (98-107); Creatinine, Serum 1.67 mg/dL (0.70-1.30); EST Glomerular Filtration Rate 42 mL/min (>60); Est Glom Filt Rate - Afr Amer 51 mL/min (>60); Estimated Creatinine Clearance 31.86 ml/min; Glucose 102 mg/dL (74-106); Potassium 3.3 mmol/L (3.5-5.1); Sodium Level 144 mmol/L (136-145)
[2023-03-15 08:25] VITALS: BP 159/94; PULSE 67; RESP 16; TEMP 36.9
--- NOTE | 2023-03-15 09:17 | PCM.PN.HOSP ---
Reason for Visit Reason for Visit: Diagnoses Malignant neoplasm of prostate (03/12/23) Chronic lymphocytic leukemia of B-cell type not having achieved remission (03/12/23) Anemia, unspecified (03/12/23) Orthostatic hypotension (03/12/23) Acute kidney failure, unspecified (03/12/23) Urinary tract infection, site not specified (03/12/23) Retention of urine, unspecified (03/12/23) Dizziness and giddiness (03/12/23) Unspecified fall, initial encounter (03/12/23) Personal history of leukemia (03/12/23) Subjective Subjective Patient seen, Underwent Cystoscopy and laser of bladder stone stone was 1 cm in size and transurethral resection of the prostate with button Olympus. Plan is for patient to be assessed for possible discharge by Dr Cooper Objective Data Objective Data Vital Signs: Vital Signs Temp Pulse Resp BP Pulse Ox O2 Del Method 98.4 F 67 16 159/94 H 96 Room Air 03/15/23 08:25 03/15/23 08:25 03/15/23 08:25 03/15/23 08:25 03/15/23 05:02 03/15/23 08:25 Oxygen Delivery Method Room Air Weight: 73.9 kg Body Mass Index (BMI) 24.7 Intake & Output: Intake and Output for Last 24 Hours 03/13/23 03/14/23 03/15/23 23:59 23:59 23:59 Intake Total 2028.75 / 2328.75 2166.25 / 2366.25 1293.75 / 1293.75 Output Total 375 / 675 2900 / 3200 900 / 900 Balance 1653.75 / 1653.75 -733.75 / -833.75 393.75 / 393.75 Lab / Micro Data 03/15/23 06:40 03/15/23 06:40 Labs: Laboratory Results - last 24 hr 03/12/23 18:17: Diff Path Review Reviewed 03/14/23 05:40: Diff Path Review Reviewed 03/15/23 06:40: WBC 68.6 H*, RBC 3.22 L, Hgb 8.3 L, Hct 28.3 L, MCV 87.9, MCH 25.8 L, MCHC 29.3 L, RDW Std Deviation 59.6 H, RDW Coeff of Willie 19.0 H, Plt Count 243, MPV 9.9, Immature Gran % (Auto) 0.600, Neut % (Auto) 16.0 L, Lymph % (Auto) 80.9 H, [place] % (Auto) 2.1, Eos % (Auto) 0.2, Baso % (Auto) 0.2, Absolute Neuts (auto) 10.9 H, Absolute Lymphs (auto) 55.55 H, Nucleated RBC % 0, Differential Comment COMMENT, Diff Path Review September foll, Sodium 144, Potassium 3.3 L, Chloride 113 H, Carbon Dioxide 22.0, Anion Gap 9, BUN 28 H, Creatinine 1.67 H, Estim Creat Clear Calc 31.86, Est GFR (MDRD) Af Amer 51 L, Est GFR (MDRD) Non-Af 42 L, BUN/Creatinine Ratio 16.8, Glucose 102, Calcium 7.5 L Micro: Microbiology 03/12/23 20:30 Urine, Clean Catch Urine Culture - Final Culture exhibits no growth. Physical Exam Narrative GENERAL: cooperative HEENT: Atraumatic; normocephalic EYES; Anicteric, Normal Conjunctiva NECK; supple, normal thyroid, RESPIRATORY: Diminished to auscultation CARDIOVASCULAR: Regular S1 S2, GI: soft, normoactive bowel sounds, : No Renal angle tenderness; EXTREMITIES: No edema, no clubbing, MUSCULOSKELETAL: no muscle wasting NEURO: Awake; no lateralizing signs. SKIN: No Rash PSYCH; Flat affect Assessment & Plan Assessment/Plan (1) Urinary retention: PLAN: Plan Patient is an 82-year-old gentleman With history of recent hospitalization with staph UTI discharged home with a Hood catheter due to urinary retention admitted with nausea vomiting and dizziness 1. Intractable nausea vomiting ? Suspected to be secondary to acute urinary tract infection. Patient had recently grown staph patient was started on ciprofloxacin repeat cultures sent. Patient also has a stone and plan is for cystolitholapaxy removal of the bladder stone and possible TURP on 03/14/[address] Cooper ? 03/14/2023; Patient is scheduled to undergo cystoscopy laser bladder stones and transurethral section of prostate ? 03/15/2023; status post Cystoscopy and laser of bladder stone stone was 1 cm in size and transurethral resection of the prostate with button Olympus by Dr Cooper on 03/14/2023. 2. Urinary retention ? Status post Hood catheter placement followed by urology 3. History of prostate CA ? Follows with Dr. Bush with oncology as noted above. Diagnosed with prostate cancer stage IIa in 2015, completed radiation therapy in July 2015 and received LHRH agonist for treatment via Dr. Cooper with Urology 4. 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 Status post cardiac 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 therapy defibrillator placement. Patient is on carvedilol did continue on Entresto held given low blood pressure and impaired kidney function 5. Anemia - Secondary to chronic disorder monitoring H&H and transfuse if patient becomes symptomatic or hemoglobin falls below 7 6. Chronic lymphocytic leukemia with significant leukocytosis ? Followed by oncology 7. Chronic kidney disease stage III ? Kidney function at baseline 8. Dyslipidemia -Patient is on statin therapy, continued at home dose 9. DVT prophylaxis ? Started on SC heparin 10. Hypokalemia ? Corrected per protocol Time spent in the patient's overall evaluation,decision-making process, review of diagnostic data, adjustment of management, discussion with other providers, nursing nursing and ancillary staff involved in patient's care documentation, 35 Minutes Charges/Coding Visit Charges Inpatient E&M: 79291 Subs Hosp L2
--- NOTE | 2023-03-15 09:25 | CASEMGMT ---
RAMONITA CM into pt room, pt lying in bed in no distress. Pt states he feels safe to go home, feels strong enough. Pt states he will use his outpt therapy rx once home. Denies any homegoing needs.
[2023-03-15] MEDS: Cefepime HCl 1 GM in 0.9% Normal Saline (50mL MB+) 50 ML IV (10:19)
[2023-03-15] MEDS: Tamsulosin HCl 0.4 MG Capsule PO (10:19)
[2023-03-15] MEDS: Potassium Chloride Oral Tablet 20 MEQ 40 MEQ PO (10:19)
[2023-03-15] MEDS: Carvedilol 25 MG Tablet PO (10:19)
[2023-03-15 13:59] LABS: Pathologist Review Reviewed
== END 2023-03-15 13:13 | disposition home or self-care (01) | DRG 666 ==
PROVIDERS: Anesthesiology; Family Medicine; Internal Medicine Gastroenterology; Admitting Provider Urology; PCP Nurse Practitioner Primary Care; Visit Provider Internal Medicine
PROC: 0DJ08ZZ Inspection of Upper Intestinal Tract, Via Natural or Artificial Opening Endoscopic (ICD-10-PCS; CPT 43235; principal; 2023-03-13 14:40)
PROC: 0VT08ZZ Resection of Prostate, Via Natural or Artificial Opening Endoscopic (ICD-10-PCS; principal; 2023-03-14 15:55)
DX: N13.6 Pyonephrosis (principal); I13.0 Hypertensive heart and chronic kidney disease with heart failure and stage 1 through stage 4 chronic kidney disease, or unspecified chronic kidney disease; N13.8 Other obstructive and reflux uropathy; C91.10 Chronic lymphocytic leukemia of B-cell type not having achieved remission; I50.22 Chronic systolic (congestive) heart failure; D63.1 Anemia in chronic kidney disease; C61 Malignant neoplasm of prostate; N18.30 Chronic kidney disease, stage 3 unspecified; E78.00 Pure hypercholesterolemia, unspecified; K21.00 Gastro-esophageal reflux disease with esophagitis, without bleeding; K44.9 Diaphragmatic hernia without obstruction or gangrene; E87.6 Hypokalemia; K57.10 Diverticulosis of small intestine without perforation or abscess without bleeding; I25.2 Old myocardial infarction; I95.1 Orthostatic hypotension; N40.1 Benign prostatic hyperplasia with lower urinary tract symptoms; R33.8 Other retention of urine; B95.61 Methicillin susceptible Staphylococcus aureus infection as the cause of diseases classified elsewhere; Z95.0 Presence of cardiac pacemaker; Z79.899 Other long term (current) drug therapy
CPT/HCPCS: 36415; 74176; 80048; 80053; 81001; 82150; 83690; 83735; 84100; 85025; 85610; 85730; 87086; 88300; 88305; 88325; 88341; 88342; 93005; 97802; J7030; J7120; J2405

== ENCOUNTER 2023-03-31 14:00 | Observation (INO) | payer MEDICARE, SELFPAY ==
[2023-03-31] VITALS (7 sets, daily range): BP systolic 141–163; BP diastolic 64–93; PULSE 66–79; RESP 16–18; TEMP 36.9–37.1; O2SAT 94–98; BMI 27.3; BMI 27.1
--- NOTE | 2023-03-31 14:29 | RAD_ITS ---
EXAM: XR CHEST, 1 VIEW CLINICAL INDICATION: chest pain TECHNIQUE: Frontal view of the chest. COMPARISON: XR Chest dated 03/04/2023 FINDINGS: LUNGS AND PLEURAL SPACES: Small bilateral pleural effusions. HEART: Stable top normal heart size. MEDIASTINUM: No mediastinal or hilar mass. BONES/JOINTS: No acute abnormality. TUBES, LINES AND DEVICES: Atrial and biventricular pacemaker wires are in place. RAD/Chest 1 View (Portable) IMPRESSION: Small bilateral pleural effusions. Electronically Signed: Patrick Wagner MD at 15:52 EST ,
--- NOTE | 2023-03-31 14:29 | EKG12_ITS ---
Test Reason : CHEST PAIN Blood Pressure : / mmHG Vent. Rate : 063 BPM Atrial Rate : 063 BPM P-R Int : 000 ms QRS Dur : 176 ms QT Int : 486 ms P-R-T Axes : 000 190 045 degrees QTc Int : 497 ms Ventricular-paced rhythm Biventricular pacemaker detected Abnormal ECG Confirmed by VEE MCKEON, SHASHANK ([id number]), editor in chief CINTHIA MCGARRY ([id number]) on 04/04/2023 12:37:22 PM Referred By: ERNESTINA Confirmed By:SHASHANK BAXTER MD
--- NOTE | 2023-03-31 14:30 | EDS_ITS ---
HPI History of Present Illness Chief Complaint: Edema Detail of Chief Complaint: Left arm and bilateral leg swelling Informant: patient Onset/Context/Timing Onset: Days Context: Gradual Onset Timing: Continuous Maximum Severity: Mild Narrative Narrative: 82-year-old male history of a pacemaker, chronic kidney disease and hypertension. Recently hospitalized for UTI and bladder stone removal. States that in the last 3 days he has developed swelling of his left arm and both legs. He denies any prior history. He denies being short of breath. He denies any palpitations or chest pain. Prior similar symptoms: No Recent Illness/Hospitalization: Yes [facility] Medical History Back pain due to injury Bilateral lower extremity edema Cancer CKD (chronic kidney disease) Edema of left upper extremity Essential hypertension Fall Fracture of unspecified phalanx of unspecified finger, initial encounter for closed fracture High cholesterol History of stress test Iron deficiency anemia Irregular heartbeat LBBB (left bundle branch block) Non-ischemic cardiomyopathy Orthostatic hypotension Pacemaker Peripheral neuropathy Restless leg syndrome Subdural hematoma Syncope Syncope and collapse Ventricular tachycardia Home Medications multivitamin (Daily Multiple tablet) 1 ea PO DAILY 03/15/15 [History Last Taken 03/04/23] cholecalciferol (vitamin D3) 25 mcg (1,000 unit) capsule (Vitamin D3) 1,000 unit PO DAILY 08/09/16 [History Last Taken 03/04/23] carvedilol 25 mg tablet 25 mg PO BID 08/24/16 [History Last Taken 03/04/23] glucosamine 750 [id number] no1 644 mg-C 30 mg-gilson 1 mg tablet (Osteo Bi-Flex Triple Strength) 1 ea PO DAILY 08/24/16 [History Last Taken 03/04/23] sacubitril 49 mg-valsartan 51 mg tablet (Entresto) 1 tab PO BID 08/24/22 [History Last Taken 03/04/23] zinc acetate 50 mg (zinc) capsule 50 mg PO DAILY 08/24/22 [History Last Taken 03/04/23] atorvastatin 10 mg tablet 10 mg PO DAILY 03/04/23 [History Last Taken 03/03/23] tamsulosin 0.4 mg capsule 0.4 mg PO DAILY 30 days #30 caps 03/06/23 [Rx Last Taken Unknown] ondansetron 4 mg disintegrating tablet 4 mg PO Q6H PRN nausea and vomiting #10 tabs 03/15/23 [Rx Last Taken Unknown] polysaccharide iron complex 150 mg iron capsule (Ferrex) 150 mg PO DAILY #30 caps 03/20/23 [Rx Last Taken Unknown] Allergy/AdvReac Type Severity Reaction Status Date / Time lisinopril AdvReac Unknown cough Verified 03/31/23 14:00 Family History Mother CVA (cerebral vascular accident) Hypertension Diabetes Father Ischemic heart disease Diabetes Surgical History Cardiac 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 therapy defibrillator (STORAGE BATTERY TESTER-D) in place (~09/2015) History of arthroplasty of finger of left hand History of colonoscopy History of left heart catheterization (09/22/15) Splenic artery aneurysm Social History Smoking Status: Never smoker alcohol intake: never substance use type: does not use caffeine: Yes Type: coffee Number of servings: 3 ROS ROS ED ROS Narrative Denies shortness of breath. Denies fever. Review of Systems ROS Unobtainable: Denies due to encephalopathy Constitutional Constitutional ED: Denies chills or fever(s) Eyes Eyes: Denies blurry vision ENT ENT ED: Denies ear pain Cardiovascular Cardiovascular: Denies chest pain Respiratory/Chest Respiratory/Chest: Denies cough or dyspnea Gastrointestinal Gastrointestinal: Denies abdominal pain Genitourinary Genitourinary ED: Denies dysuria or hematuria Musculoskeletal Musculoskeletal: Denies arthralgias Integumentary Denies abscess Neurologic Neurologic: Denies headache(s) Psychiatric Psychiatric: Denies anxiety Endocrine Endocrinology: Denies cold intolerance Hematologic/Lymphatic Hematologic/Lymphatic: Reports none; Denies systems reviewed and no addt'l complaints, except as documented Allergic/Immunologic Allergic/Immunologic ED: Denies mouth swelling, tongue swelling or urticaria EXAM Physical Exam Narrative Exam Narrative: Appearing 82-year-old male. Vital signs are stable and afebrile. Sitting upright in bed. He is comfortable. He is in no distress. Family is at bedside. H EENT exam unremarkable. Neck nontender. No JVD. No lymphadenopathy. Lungs clear to auscultation bilaterally. Heart regular rhythm rate in the 70s no murmur. Chest wall nontender. Abdomen soft nontender. He is moving all 4 extremities. He has 1+ pitting edema both lower extremities which is equal symmetrical. Calves are nontender. He also swelling to his left hand and forearm. Right upper extremity is unremarkable. He has normal motor strength. Normal range of motion. Neurologically he is awake and alert. He is answering questions and following commands. Const Vital Signs: 03/31/23 14:01 03/31/23 14:52 Temperature 98.4 F Temperature Source Temporal Pulse Rate 77 Respiratory Rate 18 Blood Pressure 161/76 H Blood Pressure Mean 104 Pulse Ox 98 Oxygen Delivery Method Room Air Room Air Positive well nourished and well developed; Negative for obese, cachectic, contractures or unkempt General Appearance ED: well developed and NAD; Negative for unkempt, cachectic, contractures, cyanotic or diaphoretic Nutritional Appearance: Negative for cachectic or obese HEENT Reports moist mucous membranes; Denies dry mucous membranes Negative for trauma or tenderness Mouth ED: No dry mucous membranes Mouth: No dry mucous membranes Eyes PERRL and EOMs intact bilaterally General Eye ED: Negative for pale conjunctiva or scleral icterus Neck no lymphadenopathy, supple and no JVD General: Negative for tenderness Lymph Lymphatic: Negative for other Chest Wall inspection of chest normal and palpation of chest normal Chest: Negative for other Resp normal respiratory effort and clear to auscultation bilaterally Effort and Inspection: Negative for retractions Auscultation: Negative for rales, rhonchi or wheezes Cardio regular rate, regular rhythm, S1 normal heart sound, S2 normal heart sound and no murmurs Palpation: Negative for palpable S3 or palpable S4 Rate: Negative for bradycardia or tachycardic Rhythm: Negative for abnormal rhythm GI normal to inspection, nondistended, normoactive bowel sounds, non-tender, non- distended and no masses Inspection: Negative for abdominal distention Auscultation: normoactive bowel sounds Palpation: soft; Negative for tender or guarding Back/Spine no CVA tenderness General Back: Negative for CVA tenderness Cervical Spine: Negative for cervical spine tenderness Thoracic Spine / Upper Back: Negative for thoracic spinal tenderness Lumbar Spine / Lower Back: Negative for lumbar spinal tenderness Extremity Negative for normal to inspection Extremity Narrative: Edema of the left upper extremity. Bilateral lower extremity 1+ pitting edema. General Extremety ED: Yes edema General Extremity: edema Neuro oriented x3 and CN's II-XII intact bilaterally Sensorium / Orientation: alert; Negative for orientation impaired, lethargic or stuporous Motor Exam: strength 5/5 throughout; Negative for general weakness Psych mental status grossly normal Appearance: Negative for unkempt Attitude: No agitated Mood & Affect: Negative for depressed, anxious or tearful Skin no rashes or lesions noted, no wounds and skin turgor normal General Skin Exam: Negative for elasticity normal Lesions: No lesion noted Rashes: No rashes noted Trauma: Negative for abrasion Wounds: Negative for wounds noted MDM MDM MDM Narrative Medical decision making narrative: 82-year-old male with edema of his left upper and both lower extremities. He denies any history of this. 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 He will be worked up for possible CHF. History & Record Review Discussion w/independent historian: Patient and Family Lab Data Attestation: I reviewed the patient's lab results. Lab results narrative: DC shows a white count of 50,000 which is the patient's baseline he has chronic leukemia. H&H is 7.8 and 26.7 he also has a chronic anemia. Platelet count 171. Electrolytes show a gap of 3. BUN and creatinine are 37 and 2.0. Glucose 130. Troponin normal at 61. BNP elevated at 1597. Chest x-ray is unremarkable. No significant congestive heart failure. No effusions. Left-sided pacemaker defibrillator. Labs: Laboratory Results - last 24 hr 03/31/23 14:30 RBC 3.00 L Hgb 7.8 L Hct 26.7 L MCV 89.0 MCH 26.0 L MCHC 29.2 L RDW Std Deviation 63.7 H RDW Coeff of Willie 19.9 H Plt Count 171 MPV 9.9 Immature Gran % (Auto) 0.400 Neut % (Auto) 12.8 L Lymph % (Auto) 82.0 H [place] % (Auto) 4.3 Eos % (Auto) 0.4 Baso % (Auto) 0.1 Absolute Neuts (auto) 6.6 Absolute Lymphs (auto) 41.98 H Nucleated RBC % 0 Sodium 140 Potassium 4.2 Chloride 107 Carbon Dioxide 30.0 Anion Gap 3 L BUN 37 H Creatinine 2.09 H Estim Creat Clear Calc 25.45 Est GFR (MDRD) Af Amer 39 L Est GFR (MDRD) Non-Af 32 L BUN/Creatinine Ratio 17.7 Glucose 130 H Calcium 8.8 Troponin I High Sens 61 B-Natriuretic Peptide 1597.3 H Radiography Chest X-Ray - ED: 1 View, Read by ED Physician, Heart, Lungs, Mediastinum, Bony Structures, No Acute Disease and Chronic Changes Diagnostic Testing: Chest x-ray, portable, single view shows normal cardiac silhouette. Normal mediastinum. Normal lung arevalo. No CHF. No effusions. No pneumonia. Left- sided pacemaker defibrillator. Rhythm Strip Rhythm Strip: Paced Rate: 63 Ectopy: None EKG Initial EKG: Attestation: I personally reviewed and interpreted this EKG as follows: Interpretation: Paced Comments: Rhythm. Rate is 63. No acute signs of [place], ischemia or dysrhythmia. Discharge Plan Triage Chief Complaint: Edema ED Provider: [place] Jung Dx/Rx/DC Orders Prescriptions: No Action Entresto 49-51 mg tablet 1 tab PO BID Hold Instructions: Resume on 03/15/23. zinc acetate 50 mg (zinc) capsule 50 mg PO DAILY polysaccharide iron complex [Ferrex 150] 150 mg iron capsule 150 mg PO DAILY Qty: 30 1RF multivitamin [Daily Multiple] 1 EACH tablet 1 ea PO DAILY Patient Comments: SUPPLEMENT cholecalciferol (vitamin D3) [Vitamin D3] 1,000 UNIT capsule 1,000 unit PO DAILY carvedilol 25 MG tablet 25 mg PO BID Osteo Bi-Flex Triple Strength 1 EACH tablet 1 ea PO DAILY atorvastatin 10 mg tablet 10 mg PO DAILY tamsulosin 0.4 mg Capsule 0.4 mg PO DAILY 30 Days Qty: 30 0RF ondansetron 4 mg tablet,disintegrating 4 mg PO Q6H PRN (Reason: nausea and vomiting) Qty: 10 0RF Primary Care Provider: German Gu NP Referrals: German Gu NP, PHYSICAL FITNESS TRAINER-C [Primary Care Provider] -
[2023-03-31 14:42] LABS: Absolute Lymphocyte Count 41.98 X10^3/uL (0.83-4.51); Absolute Neutrophil Count 6.6 X10^3/uL (2.0-7.7); Basophil# 0.05 X10^3/uL; Basophil% 0.1 % (0-1); Eosinophils% 0.4 % (0-5); Hematocrit 26.7 % (40-54); Hemoglobin 7.8 g/dL (13.0-16.5); Lymphocyte # 41.98 X10^3/ul (0.83-4.51); Mean Corp Hgb Conc 29.2 g/dL (32-36); Mean Platelet Vol. 9.9 fl (6.2-12.0); Monocyte# 2.18 X10^3/uL; Monocyte% 4.3 % (0-10); NRBC Flagged by Analyzer 0 % (0-5); Neutrophil # 6.62 X10^3/uL (2.7-7.7); Neutrophil % 12.8 % (47-70); POSITIVE COUNT YES; POSITIVE DIFFERENTIAL YES; POSITIVE MORPHOLOGY YES; Platelet Count 171 K/mm3 (150-450); RBC Distribution Width CV 19.9 % (11.6-14.6); RBC Distribution Width SD 63.7 fl (35.1-43.9)
[2023-03-31 14:44] LABS: Differential Indicated SCAN CRITERIA MET
[2023-03-31 14:45] LABS: White Blood Count 51.2 K/mm3 (4.4-11.0)
[2023-03-31 15:03] LABS: Anion Gap 3 (5-15); BNP,B-Type NATRIURETIC PEPTIDE 1597.3 pg/mL (0-100); BUN 37 mg/dL (7-18); BUN/Creat Ratio 17.7 RATIO (10-20); Calcium,Total 8.8 mg/dL (8.5-10.1); Chloride 107 mmol/L (98-107); Creatinine, Serum 2.09 mg/dL (0.70-1.30); EST Glomerular Filtration Rate 32 mL/min (>60); Est Glom Filt Rate - Afr Amer 39 mL/min (>60); Estimated Creatinine Clearance 25.45 ml/min; Glucose 130 mg/dL (74-106); Potassium 4.2 mmol/L (3.5-5.1); Sodium Level 140 mmol/L (136-145); Troponin-I HS 61 pg/mL (3.0-78.0)
[2023-03-31 15:18] LABS: Smudge Cells 3+
--- NOTE | 2023-03-31 16:08 | PCM.HP.STD ---
HPI - General General Date of Admission: 03/31/23 Date of Service: 03/31/23 Chief Complaint: Edema. HPI Narrative The patient is an 82 y/o M w/ PMHx: CLL, HTN, HLD, Hx Prostate CA, CLL following with Dr. Bush, CKD stage III unclear subtype, Orthostatic hypotension, HFrEF with component of recovery s/p prior AICD/pacemaker/Nonischemic cardiomyopathy, Chronic anemia/Fe deficiency anemia, RLS, Chronic peripheral neuropathy, recent admission 03/12/23-03/15/23 following evaluation for intractable nausea and emesis as well as urinary retention with eventual diagnosis of UTI and CT scan demonstrating a stone in the bladder with cystoscopy performed of the stone in addition to follow-up TURP with discharge on ciprofloxacin with resolution of nausea and emesis who now represents to the [facility] ED on 03/31/23 with history of significantly increased swelling to bilateral lower extremities as well as his left upper extremity over the last 3 days with no associated dyspnea nor chest discomfort initially seen at urgent care with referral to the ED for evaluation to be cautious. Oddly patient has notable edema in BL LE and LUE but not the RUE. He does state that he attempted to elevate these extremities but from discussions sounds as though it was not above his heart. He denies any recent calf discomfort or pain to the lower extremities or the left upper extremity. Work-up in the ED included T98.2, heart rate 70, BP 132/54, respiratory rate 14, 98% on room air, CBC with WBC 51.2, hemoglobin 7.8, MCV 89, platelet 171 with significant lymphocytosis, BMP with BUN/creatinine 37/2.09, glucose 130, troponin 61, BNP 1597.3, EKG paced with rate 63. Unfortunately per discussion with ED unable to obtain duplex ultrasound at this time. [facility] Medical History (Updated 03/31/23 @ 16:[address] Zari Jose MD) Back pain due to injury CKD (chronic kidney disease), stage III CLL (chronic lymphocytic leukemia) Essential hypertension High cholesterol Iron deficiency anemia LBBB (left bundle branch block) Non-ischemic cardiomyopathy Orthostatic hypotension Pacemaker Peripheral neuropathy Prostate cancer Restless leg syndrome Subdural hematoma Ventricular tachycardia Home Medications multivitamin (Daily Multiple tablet) 1 ea PO DAILY 03/15/15 [History Last Taken 03/04/23] cholecalciferol (vitamin D3) 25 mcg (1,000 unit) capsule (Vitamin D3) 1,000 unit PO DAILY 08/09/16 [History Last Taken 03/04/23] carvedilol 25 mg tablet 25 mg PO BID 08/24/16 [History Last Taken 03/04/23] glucosamine 750 [id number] no1 644 mg-C 30 mg-gilson 1 mg tablet (Osteo Bi-Flex Triple Strength) 1 ea PO DAILY 08/24/16 [History Last Taken 03/04/23] sacubitril 49 mg-valsartan 51 mg tablet (Entresto) 1 tab PO BID 08/24/22 [History Last Taken 03/04/23] zinc acetate 50 mg (zinc) capsule 50 mg PO DAILY 08/24/22 [History Last Taken 03/04/23] atorvastatin 10 mg tablet 10 mg PO DAILY 03/04/23 [History Last Taken 03/03/23] tamsulosin 0.4 mg capsule 0.4 mg PO DAILY 30 days #30 caps 03/06/23 [Rx Last Taken Unknown] ondansetron 4 mg disintegrating tablet 4 mg PO Q6H PRN nausea and vomiting #10 tabs 03/15/23 [Rx Last Taken Unknown] polysaccharide iron complex 150 mg iron capsule (Ferrex) 150 mg PO DAILY #30 caps 03/20/23 [Rx Last Taken Unknown] Allergy/AdvReac Type Severity Reaction Status Date / Time lisinopril AdvReac Unknown cough Verified 03/31/23 14:00 Family History Mother CVA (cerebral vascular accident) Hypertension Diabetes Father Ischemic heart disease Diabetes Surgical History (Updated 03/31/23 @ 16:[address] Zari Jose MD) Cardiac 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 therapy defibrillator ([employer]) in place (~09/2015) History of arthroplasty of finger of left hand History of colonoscopy History of left heart catheterization (09/22/15) S/P TURP Splenic artery aneurysm Status post laser lithotripsy of ureteral calculus Social History (Updated 03/31/23 @ 16:[address] Zari Jose MD) household members: spouse Smoking Status: Never smoker alcohol intake: never substance use type: does not use caffeine: Yes Type: coffee Number of servings: 3 ROS ROS Narrative Admission Review of Systems: CONSTITUTIONAL: No weight loss, fever, chills, + weakness or fatigue. HEENT: Eyes: No visual loss, blurred vision, double vision or yellow sclerae. Ears, Nose, Throat: No hearing loss, sneezing, congestion, runny nose or sore throat. SKIN: + Very staged ecchymoses, abrasions, venous stasis skin changes. CARDIOVASCULAR: + Edema to left upper, bilateral lower extremities. No chest pain, chest pressure or chest discomfort, palpitations, orthopnea, syncopal events. RESPIRATORY: No shortness of breath, cough or sputum, wheezing, hemoptysis. GASTROINTESTINAL: No anorexia, nausea, vomiting or diarrhea, abdominal pain, melena, BRBPR. GENITOURINARY: + History of recent urinary retention with nephrolithiasis with UTI, resolved. No dysuria, frequency, urgency or retention. NEUROLOGICAL: No headache, dizziness, syncope, paralysis, ataxia, numbness or tingling in the extremities, focal weakness, change in bowel or bladder control, seizure. MUSCULOSKELETAL: + muscle, back pain, joint pain or stiffness. HEMATOLOGIC: + anemia, bleeding/bruising. LYMPHATICS: No enlarged nodes. No history of splenectomy. PSYCHIATRIC: No history of depression or anxiety. ENDOCRINOLOGIC: No reports of sweating, cold or heat intolerance. No polyuria or polydipsia. ALLERGIES: No history of asthma, hives, eczema or rhinitis. Vital Signs Vital Signs Vital Signs: 03/31/23 14:01 03/31/23 14:52 Temperature 98.4 F Temperature Source Temporal Pulse Rate 77 Respiratory Rate 18 Blood Pressure 161/76 H Blood Pressure Mean 104 Pulse Ox 98 Oxygen Delivery Method Room Air Room Air Weight Weight: 180 lb Body Mass Index (BMI) 27.3 Physical Exam Narrative Physical Examination: General: Awake, alert, oriented x 3 and cooperative, seated upright in the ED bed in no apparent distress, denies any chest discomfort or dyspnea associated. Skin: Normal color, normal turgor, no icterus, no cyanosis except for very staged ecchymoses, venous stasis skin changes, abrasions. HEENT: AT/NC, EOMI, PERRLA, MMM, no carotid bruits or JVD noted. Lungs: CTA bilaterally, moderate effort, mild decrease BL bases, no rales, ronchi or wheezing. Heart: Regular rate and rhythm; no gallop, rub audible, + SM. Abdomen: Soft, overweight, NTTP, ND, distant normal BS, no appreciated HSM. Extremities: No cyanosis, no clubbing, bilateral pedal, right mildly greater than left likely secondary to previous injury pedal edema to proximal wilkins 1-2+ edema as well as left upper extremity with hand to mid forearm 1-2+ pitting edema. Neurological: Patient awake, alert, oriented as noted, cognitive function intact; pupils equally reactive to light and accommodation, cranial nerves II-XII grossly normal, moving all 4 extremities, no focal deficits, strength moderately globally decreased secondary to acute presentation underlying comorbidities Psychiatric: Affect appears fatigued, no acute evidence of depressive or anxiety feelings. Results Lab / Micro Data 03/31/23 14:30 03/31/23 14:30 Labs: Laboratory Results - last 24 hr 03/31/23 14:30: WBC 51.2 H*, RBC 3.00 L, Hgb 7.8 L, Hct 26.7 L, MCV 89.0, MCH 26.0 L, MCHC 29.2 L, RDW Std Deviation 63.7 H, RDW Coeff of Willie 19.9 H, Plt Count 171, MPV 9.9, Immature Gran % (Auto) 0.400, Neut % (Auto) 12.8 L, Lymph % (Auto) 82.0 H, [place] % (Auto) 4.3, Eos % (Auto) 0.4, Baso % (Auto) 0.1, Absolute Neuts (auto) 6.6, Absolute Lymphs (auto) 41.98 H, Nucleated RBC % 0, Differential Comment COMMENT, Diff Path Review May foll, Smudge Cells 3+, Sodium 140, Potassium 4.2, Chloride 107, Carbon Dioxide 30.0, Anion Gap 3 L, BUN 37 H, Creatinine 2.09 H, Estim Creat Clear Calc 25.45, Est GFR (MDRD) Af Amer 39 L, Est GFR (MDRD) Non-Af 32 L, BUN/Creatinine Ratio 17.7, Glucose 130 H, Calcium 8.8, Troponin I High Sens 61, B-Natriuretic Peptide 1597.3 H Rhythm Strip Rhythm Strip: Paced Rate: 63 Ectopy: None Imagaing Radiology Impression Chest X-Ray 03/31/23 14:29 IMPRESSION: Small bilateral pleural effusions. Electronically Signed: aPtrick Wagner MD at 15:52 EST Reading Location ID and State: [facility] / [place] Tel , Service support , Assessment & Plan Assessment/Plan (1) Bilateral lower extremity edema: PLAN: Plan The patient is an 82 y/o M w/ PMHx: CLL, HTN, HLD, Hx Prostate CA, CLL following with Dr. Bush, CKD stage III unclear subtype, Orthostatic hypotension, HFrEF with component of recovery s/p prior AICD/pacemaker/Nonischemic cardiomyopathy, Chronic anemia/Fe deficiency anemia, RLS, Chronic peripheral neuropathy, recent admission 03/12/23-03/15/23 following evaluation for intractable nausea and emesis as well as urinary retention with eventual diagnosis of UTI and CT scan demonstrating a stone in the bladder with cystoscopy performed of the stone in addition to follow-up TURP with discharge on ciprofloxacin with resolution of nausea and emesis who now represents to the [facility] ED on 03/31/23 with history of significantly increased swelling to bilateral lower extremities as well as his left upper extremity over the last 3 days with no associated dyspnea nor chest discomfort initially seen at urgent care with referral to the ED for evaluation to be cautious. Oddly patient has notable edema in BL LE and LUE but not the RUE. #1. Peripheral Edema, Possibly multifactorial, atypical given only 3 extremities, concern for Acute on Chronic HFrEF w/ component of recovery/Nonischemic cardiomyopathy as well as Possible VTE: s/p pacemaker/AICD, Mmst recent [facility] ECHO noted 09/21/2015 with moderately dilated LV, severe segmental systolic dysfunction with EF 20%, septal motion consistent with IVCD, mildly enlarged LA, moderately severe MVI, mild TVI, trivial MINOR, trivial PVI, RVSP 38 mmHg, bubble study negative at that time. Most recent echocardiogram in clinic sink records at [facility] 09/2022 with EF 48% but given now 6 months out will request repeat. Will admit to PCU, maintain on cardiac telemetry, obtain cardiac enzyme series, obtain serial EKGs, continue IV lasix diuresis, monitor I/Os, maintain on intake restriction, continue medical therapy w/ asa, statin, BB, ACEI, obtain TSH and magnesium level. Duplex ultrasound bilateral lower extremities as well as left upper extremity requested to be cautious given atypical edema presentation. Will place snug Iftikhar wraps with elevation. The thing to consider is given underlying cancer history may certainly consider imaging to assure there is no compression as etiology for presentation as well. PT/OT/case management consulted for discharge planning. #2. Mild Acute Renal Insufficiency on Chronic Kidney Disease Stage III, unclear subtype per GFR trend: Admission BUN/Cr 37/2.09, baseline renal function appears primarily 0.6-1.9, most recently prior to this 03/20/2023 creatinine 1.74, will closely monitor given usage of judicious IV Lasix and if worsens further will hold other nephrotoxic medication and further investigate. #3. CLL: Admission CBC with a BC 51.2, hemoglobin 7.8, platelet 171 with significant lymphocytosis with known underlying CLL, following with Dr. Bush, initially diagnosed in 2003 with primarily baseline consistent WBC at least in the 40s since 2019 however since recent presentation 02/2023 level has remained in the 50s of note, encourage continued early follow-up with oncology. #4. Chronic normocytic anemia: Large component secondary to his underlying CLL, admission hemoglobin 7.8, MCV 89, baseline hemoglobin primarily 8-9, most recently prior to this presentation 03/20/2023 hemoglobin 9.2, continue to monitor and if drifts further would initiate PRBC administration, will continue trend CBC. Recent work-up included iron studies as well as vitamin B12 and folic acid and ferritin, encourage follow-up outpatient with hematology. #5. Recent nephrolithiasis with BL hydronephrosis secondary to acute staphylococcal complicated urinary tract infection with acute urinary retention: Required transient Hood placement, continued on Flomax, status post cystoscopy with laser intervention as well as follow-up TURP discharged on ciprofloxacin. #6. Hypertension: Continue home regimen including Entresto, Coreg, PRN hydralazine. #7. Hyperlipidemia: We will continue patient on statin therapy, FLP in AM. #8. Prostate cancer: Follows with Dr. Waite and urology, diagnosed stage IIa prostate cancer in 2016 status post radiation therapy, received LHRH agonist not currently on any treatment, status post recent TURP as noted. #9. Orthostatic hypotension: Noted historically, encourage cautious positional changes especially given diuresis as noted above, not currently on any midodrine, closely monitor, PT/OT/case management consulted for discharge planning. #10. DVT prophylaxis: Chemoprophylactic dosing of heparin, will hold on anticoagulation given hemoglobin decrease until assure need for this as again unclear reason for edema, possibly multifactorial with failure as main etiology. #11. CODE status: Patient ZAHEER is his daughter who is present and living will is currently in place. Discussed CODE status at length including difference between FULL code, DNR-CCA and DNR-CC status. Following discussions about the differences in these status, requested Full Code status. Advanced Care Planning Face to Face Time: 16 minutes. Charges/Coding Visit Charges Inpatient E&M: 30911 Init Hosp L2 Procedures Hospitalists Procedures: 91371 Advncd Care Plan 30 Min
--- NOTE | 2023-03-31 16:14 | VDUE_ITS ---
Reason For Study: Left arm swelling Left Proximal Left jugular vein is spontaneous, widely patent, phasic, with no intraluminal echogenicity noted. Left subclavian vein is spontaneous, widely patent, phasic, with no intraluminal echogenicity noted. Left Arm Left axillary vein is spontaneous, patent, phasic, competent, compressible and demonstrates augmentation. Left brachial vein is compressible. Left cephalic vein is compressible. Left basilic vein is compressible. Left Lower Arm Left radial vein is compressible. Left ulnar vein is compressible. Patient Safety Preliminary report given to PCU wrapper layer and examiner soft work. VL/Venous Duplex US, Unilateral Interpretation Summary Deep veins of the left upper extremity are patent and compressible segmentally. There is no evidence of deep vein thrombosis. Superficial veins of the left upper extremity are patent and compressible segme ntally. There is no evidence of superficial vein thrombosis. Ordering Physician: Zari Jose Referring Physician: German Gu Performed By: Verito Curiel RVT ???
--- NOTE | 2023-03-31 16:14 | VDLE_ITS ---
Reason For Study: Bilateral leg swelling RIGHT LEFT GSV is normal. GSV is normal. CFV is compressible, spontaneous, phasic, CFV is compressible, spontaneous, phasic, competent and demonstrates normal competent, and demonstrates normal augmentation. augmentation. FV is compressible, spontaneous, phasic, FV is compressible, spontaneous, phasic, competent and demonstrates normal competent and demonstrates normal augmentation. augmentation. POP V is compressible, spontaneous, phasic, POP V is compressible, spontaneous, phasic, competent and demonstrates normal competent and demonstrates normal augmentation. augmentation. T/P Trunk is compressible. T/P Trunk is compressible. PTV is compressible. PTV is compressible. RT PerV is compressible. LT PerV is compressible. Procedure This is a venous duplex using B-mode, color flow and spectral Doppler. Exam performed portable in patient room. A preliminary report was called and/or faxed to PCU director of marketing [employer]. VL/Venous Duplex US - Nagi Extrem Interpretation Summary Deep veins of the bilateral lower extremities are patent and compressible segme ntally. There is no evidence of bilateral lower extremity deep vein thrombosis. The bilateral great saphenous veins appear patent and compressible segmentally. Ordering Physician: Zari Jose Referring Physician: German Gu Performed By: Verito Curiel RVT
--- NOTE | 2023-03-31 16:55 | ECHOD_ITS ---
Version 2 Reason For Study: CHF Procedure This was a 2D Doppler, Color Flow transthoracic echocardiogram. Exam performed portable in patient room. Left Ventricle Moderately dilated left ventricle. Mild concentric left ventricular hypertrophy. The left ventricular ejection fraction is 30 %. Diastolic function is indeterminate. There is severe global hypokinesis of the left ventricle. Right Ventricle ICD or pacer leads identified within the right ventricle. Atria The left atrium is moderately enlarged. Normal right atrium. Mitral Valve Mild mitral annular calcification. Moderately severe (3+) posteriorly directed mitral valve insufficiency. Tricuspid Valve Trivial tricuspid valve insufficiency. Unable to estimate RV systolic pressure due to insufficient tricuspid regurgitant envelope. Aortic Valve Trisinus/trileaflet aortic valve. Mild (1+) aortic valve insufficiency. Pulmonic Valve The pulmonic valve is not well visualized. Mild (1+) pulmonic valve insufficiency. Great Vessels The aortic root is not well visualized. Pericardium/Pleural No pericardial effusion. MMode/2D Measurements & Calculations LVIDd: 6.0 cm IVSd: 1.5 cm LAV(MOD-bp): 90.4 ml LVIDs: 5.0 cm LVPWd: 1.4 cm LAV(MOD-bp) Indexed: 46.2 ml/m2 FS: 17.6 % LAV(MOD-sp2): 92.9 ml LAV(MOD-sp4): 77.5 ml SV(MOD-sp4): 44.3 ml SV(sp4-el): 44.6 ml LVAd ap4: 31.6 cm2 LVLd ap4: 8.2 cm EDV(MOD-sp4): 104.5 ml EDV(sp4-el): 103.1 ml LVAs ap4: 21.9 cm2 LVLs ap4: 7.0 cm ESV(MOD-sp4): 60.2 ml ESV(sp4-el): 58.5 ml EF(MOD-sp4): 42.4 % EF(sp4-el): 43.2 % LA A4 area: 25.9 cm2 LA dimension(2D): 4.5 cm RA A4 area: 18.6 cm2 TAPSE: 3.1 cm Time Measurements MV dec time: 0.21 sec Doppler Measurements & Calculations MV E max brian: 78.1 cm/sec Lat Peak E' Brian: 9.3 cm/sec Med Peak E' Brian: 6.3 cm/sec MV A max brian: 92.2 cm/sec E/E' lat: 8.4 E/E' med: 12.3 MV E/A: 0.85 MV V2 max: 98.8 cm/sec Ao V2 max: 185.6 cm/sec MV max P.9 mmHg MV dec slope: 371.6 cm/sec2 Ao max P.9 mmHg MV V2 mean: 72.8 cm/sec Ao V2 mean: 126.7 cm/sec MV mean P.2 mmHg Ao mean P.4 mmHg MV V2 VTI: 28.2 cm Ao V2 VTI: 37.4 cm AV (velocity ratio): 0.68 LV V1 max: 132.5 cm/sec PA V2 max: 123.9 cm/sec LV V1 max P.0 mmHg PA V2 mean: 85.8 cm/sec LV V1 mean P.0 mmHg LV V1 mean: 93.2 cm/sec LV V1 VTI: 25.4 cm ECHO/Echo Complete Interpretation Summary Moderately dilated left ventricle. Mild concentric left ventricular hypertrophy. The left ventricular ejection fraction is 30 %. Diastolic function is indeterminate. The left atrium is moderately enlarged. Mild mitral annular calcification. Moderately severe (3+) posteriorly directed mitral valve insufficiency. Mild (1+) aortic valve insufficiency. Mild (1+) pulmonic valve insufficiency. Multiple large hepatic cysts noted. Recommend abdominal ultrasound or CT scan f or further evaluation. Ordering Physician: Zari Jose Referring Physician: KENN TURCIOS Performed By: Sommer Hernandez RCS
[2023-03-31 16:58] LABS: Magnesium 2.1 mg/dL (1.6-2.6); Phosphorus 2.9 mg/dL (2.5-4.9)
[2023-03-31] MEDS: Furosemide 40 MG/4 ML Vial IV (17:48)
[2023-03-31] MEDS: 0.9% Saline Lock 10 ML Syringe IV (17:49)
[2023-03-31 18:18] LABS: Troponin-I HS 63 pg/mL (3.0-78.0)
[2023-03-31] MEDS: Carvedilol 25 MG Tablet PO (20:35)
[2023-03-31] MEDS: SACUBITRIL/VALSARTAN 49-51 MG TABLET 1 EACH PO (20:35)
[2023-03-31] MEDS: Heparin Injection (Vial) 5,000 UNIT/ML VIAL 5000 UNIT SC (20:36)
[2023-03-31 21:09] LABS: Troponin-I HS 52 pg/mL (3.0-78.0)
[2023-04-01 05:15] VITALS: BP 136/64; PULSE 63; RESP 18; TEMP 36.6; O2SAT 96
[2023-04-01 06:00] VITALS: BMI 27.6
[2023-04-01 06:53] LABS: Absolute Lymphocyte Count 42.84 X10^3/uL (0.83-4.51); Absolute Neutrophil Count 4.9 X10^3/uL (2.0-7.7); Basophil# 0.08 X10^3/uL; Basophil% 0.2 % (0-1); Eosinophil# 0.42 X10^3/uL; Eosinophils% 0.9 % (0-5); Hematocrit 25.6 % (40-54); Hemoglobin 7.5 g/dL (13.0-16.5); Lymphocyte # 42.84 X10^3/ul (0.83-4.51); Lymphocyte % 87.3 % (19-41); Mean Corp Hgb Conc 29.3 g/dL (32-36); Mean Corpuscular Hgb 26.3 pg (27.0-32.0); Mean Corpuscular Volume 89.8 fL (80-94); Mean Platelet Vol. 10.1 fl (6.2-12.0); Monocyte# 0.74 X10^3/uL; Monocyte% 1.5 % (0-10); NRBC Flagged by Analyzer 0 % (0-5); Neutrophil # 4.88 X10^3/uL (2.7-7.7); Neutrophil % 9.8 % (47-70); POSITIVE COUNT YES; POSITIVE DIFFERENTIAL YES; POSITIVE MORPHOLOGY YES; Platelet Count 171 K/mm3 (150-450); RBC Distribution Width CV 19.4 % (11.6-14.6); Red Blood Count 2.85 M/mm3 (4.6-6.2)
[2023-04-01 06:56] LABS: Differential Indicated SCAN CRITERIA MET; White Blood Count 49.1 K/mm3 (4.4-11.0)
[2023-04-01 07:33] LABS: ALB/GLOB Ratio 1.1 RATIO (0.9-2.4); AST(SGOT) 15 U/L (15-37); Alanine Aminotransfer ALT/SGPT 21 U/L (16-61); Albumin, Serum 2.6 g/dL (3.2-5.0); Alkaline Phosphatase 61 U/L (45-117); Anion Gap 7 (5-15); BUN 34 mg/dL (7-18); BUN/Creat Ratio 16.4 RATIO (10-20); Calcium,Total 8.2 mg/dL (8.5-10.1); Chloride 108 mmol/L (98-107); Cholesterol 104 mg/dL (200); Creatinine, Serum 2.07 mg/dL (0.70-1.30); EST Glomerular Filtration Rate 33 mL/min (>60); Est Glom Filt Rate - Afr Amer 40 mL/min (>60); Globulin 2.4 g/dL (2.2-4.2); Glucose 99 mg/dL (74-106); High Density Lipoprotein 47 mg/dL; Potassium 3.7 mmol/L (3.5-5.1); Sodium Level 142 mmol/L (136-145); Thyroid Stim Hormone (TSH) 3.83 uIU/mL (0.358-3.74); Triglycerides 73 mg/dL; Very Low Density Lipoprotein 15 mg/dL (5-40)
[2023-04-01 08:17] VITALS: O2SAT 94
--- NOTE | 2023-04-01 08:43 | PN.HOSP_ITS ---
Reason for Visit Reason for Visit: Diagnoses Localized edema (03/31/23) Subjective Subjective Still with edema in his legs and his left upper extremity. Does not have edema in his right upper extremity. Denies any history of any trauma to his left arm nor any surgery though he does have a pacemaker in his left upper chest. Objective Data Objective Data Vital Signs: Vital Signs Temp Pulse Resp BP Pulse Ox O2 Del Method 36.6 C 63 18 136/64 H 94 Room Air 04/01/23 05:15 04/01/23 05:15 04/01/23 05:15 04/01/23 05:15 04/01/23 08:17 04/01/23 08:17 Oxygen Delivery Method Room Air Weight: 82.6 kg Body Mass Index (BMI) 27.6 Intake & Output: Intake and Output for Last 24 Hours 03/30/23 03/31/23 04/01/23 23:59 23:59 23:59 Intake Total 610 / 610 200 / 200 Output Total 900 / 900 800 / 800 Balance -290 / -290 -600 / -600 Lab / Micro Data 04/01/23 06:31 04/01/23 06:31 Labs: Laboratory Results - last 24 hr 03/31/23 14:30: WBC 51.2 H*, RBC 3.00 L, Hgb 7.8 L, Hct 26.7 L, MCV 89.0, MCH 26.0 L, MCHC 29.2 L, RDW Std Deviation 63.7 H, RDW Coeff of Willie 19.9 H, Plt Count 171, MPV 9.9, Immature Gran % (Auto) 0.400, Neut % (Auto) 12.8 L, Lymph % (Auto) 82.0 H, [place] % (Auto) 4.3, Eos % (Auto) 0.4, Baso % (Auto) 0.1, Absolute Neuts (auto) 6.6, Absolute Lymphs (auto) 41.98 H, Nucleated RBC % 0, Differential Comment COMMENT, Diff Path Review May foll, Smudge Cells 3+, Sodium 140, Potassium 4.2, Chloride 107, Carbon Dioxide 30.0, Anion Gap 3 L, BUN 37 H, Creatinine 2.09 H, Estim Creat Clear Calc 25.45, Est GFR (MDRD) Af Amer 39 L, Est GFR (MDRD) Non-Af 32 L, BUN/Creatinine Ratio 17.7, Glucose 130 H, Calcium 8.8, Phosphorus 2.9, Magnesium 2.1, Troponin I High Sens 61, B-Natriuretic Peptide 1597.3 H 03/31/23 17:45: Troponin I High Sens 63 03/31/23 20:30: Troponin I High Sens 52 04/01/23 06:31: WBC 49.1 H*, RBC 2.85 L, Hgb 7.5 L, Hct 25.6 L, MCV 89.8, MCH 26.3 L, MCHC 29.3 L, RDW Std Deviation 63.0 H, RDW Coeff of Willie 19.4 H, Plt Count 171, MPV 10.1, Immature Gran % (Auto) 0.300, Neut % (Auto) 9.8 L, Lymph % (Auto) 87.3 H, [place] % (Auto) 1.5, Eos % (Auto) 0.9, Baso % (Auto) 0.2, Absolute Neuts (auto) 4.9, Absolute Lymphs (auto) 42.84 H, Nucleated RBC % 0, Sodium 142, Potassium 3.7, Chloride 108 H, Carbon Dioxide 27.0, Anion Gap 7, BUN 34 H, Creatinine 2.07 H, Estim Creat Clear Calc 25.70, Est GFR (MDRD) Af Amer 40 L, Est GFR (MDRD) Non-Af 33 L, BUN/Creatinine Ratio 16.4, Glucose 99, Calcium 8.2 L , Total Bilirubin 0.40, AST 15, ALT 21, Alkaline Phosphatase 61, Total Protein 5.0 L, Albumin 2.6 L, Globulin 2.4, Albumin/Globulin Ratio 1.1, Triglycerides 73, Cholesterol 104, LDL Cholesterol 42, VLDL Cholesterol 15, HDL Cholesterol 47, TSH 3.83 H Radiography Diagnostic Testing: Radiology Impression Chest X-Ray 03/31/23 14:29 IMPRESSION: Small bilateral pleural effusions. Electronically Signed: Patrick Wagner MD at 15:52 EST , Rhythm Strip Rhythm Strip: Paced Rate: 63 Ectopy: None Physical Exam Cardio regular rate, regular rhythm, S1 normal heart sound and S2 normal heart sound GI normal to inspection, nondistended, normoactive bowel sounds, soft to palpation, non-tender and non-distended Extremity normal to inspection and full ROM Extremity Narrative: Nonpitting edema lower extremities. Subtle edema left upper extremity as compared to the right. Assessment & Plan Assessment/Plan (1) HFrEF (heart failure with reduced ejection fraction): PLAN: Acute with peripheral edema, pleural effusions (not enough for thoracentesis). Undergoing diuresis with furosemide 40 IV BID. Continue sacubitril/valsartan, carvedilol. Current weight 82.6, was 78 on the 7th. Fluid restrict. Duplex of upper extremity and lower extremities performed but results pending. Echo ordered, yet to be performed. PLAN: Plan Chronic complicating medical conditions: * CKD IIIB: monitor closely while on furosemide * CLL:Following with Dr. Bush, initially diagnosed in 2003 * Chronic normocytic anemia: overall trending down over the past several month. Monitor. Check iron studies, B12, folate. TSH high, will check free T4. * Recent nephrolithiasis with BL hydronephrosis secondary to acute staphylococc al complicated urinary tract infection with acute urinary retention: Required transient Hood placement, continued on Flomax, status post cystoscopy with laser intervention as well as follow-up TURP discharged on ciprofloxacin. Follow up w * Hypertension: Continue home regimen including Entresto, Coreg, PRN hydralazine. * Hyperlipidemia: We will continue patient on statin * Prostate cancer: Follows with Dr. Bush and urology, diagnosed stage IIa prostate cancer in 2016 status post radiation therapy, received LHRH agonist not currently on any treatment, status post recent TURP as noted. * Orthostatic hypotension: Noted historically, encourage cautious positional changes especially given diuresis as noted above, not currently on any midodrine, closely monitor, PT/OT/case management consulted for discharge planning. DVT prophylaxis: SQ heparin CODE status: Full code. Charges/Coding Visit Charges Inpatient E&M: 16707 Subs Hosp L2
[2023-04-01 08:44] LABS: Differential Comment SCANNED
[2023-04-01 08:55] VITALS: BP 161/81; PULSE 70; RESP 16; TEMP 36.7; O2SAT 95
[2023-04-01] MEDS: Carvedilol 25 MG Tablet PO ×2 (08:56→20:45)
[2023-04-01] MEDS: SACUBITRIL/VALSARTAN 49-51 MG TABLET 1 EACH PO ×2 (08:56→20:45)
[2023-04-01] MEDS: Heparin Injection (Vial) 5,000 UNIT/ML VIAL 5000 UNIT SC ×2 (08:56→20:45)
[2023-04-01] MEDS: 0.9% Saline Lock 10 ML Syringe IV ×2 (08:56→17:45)
[2023-04-01] MEDS: Zinc Sulfate 50 mg zinc (220 mg) ORAL capsule PO (08:56)
[2023-04-01] MEDS: Tamsulosin HCl 0.4 MG Capsule PO (08:56)
[2023-04-01] MEDS: Furosemide 40 MG/4 ML Vial IV ×2 (08:56→17:45)
[2023-04-01 10:04] LABS: Ferritin 106 ng/mL (26-388); Iron 17 ug/dL (65-175); Iron Binding Capacity,Total 231 ug/dL (250-450); PERCENT IRON SATURATION 7.4 % (15.0-55.0); T4 Free Direct 1.06 ng/dL (0.76-1.46)
[2023-04-01 14:55] VITALS: BP 156/69; PULSE 69; RESP 16; TEMP 37.3; O2SAT 94
[2023-04-01 20:55] VITALS: BP 167/68; PULSE 67; RESP 18; TEMP 36.9; O2SAT 94
[2023-04-02 02:55] VITALS: BP 151/81; PULSE 69; RESP 16; TEMP 36.7; O2SAT 93
[2023-04-02 04:43] VITALS: BMI 27.4
[2023-04-02 04:58] LABS: Absolute Lymphocyte Count 41.94 X10^3/uL (0.83-4.51); Absolute Neutrophil Count 6.1 X10^3/uL (2.0-7.7); Basophil# 0.06 X10^3/uL; Basophil% 0.1 % (0-1); Eosinophil# 0.32 X10^3/uL; Eosinophils% 0.6 % (0-5); Hematocrit 28.5 % (40-54); Hemoglobin 8.5 g/dL (13.0-16.5); Lymphocyte # 41.94 X10^3/ul (0.83-4.51); Lymphocyte % 84.9 % (19-41); Mean Corp Hgb Conc 29.8 g/dL (32-36); Mean Corpuscular Hgb 26.2 pg (27.0-32.0); Mean Platelet Vol. 10.1 fl (6.2-12.0); Monocyte# 0.85 X10^3/uL; Monocyte% 1.7 % (0-10); NRBC Flagged by Analyzer 0 % (0-5); Neutrophil # 6.07 X10^3/uL (2.7-7.7); Neutrophil % 12.4 % (47-70); POSITIVE COUNT YES; POSITIVE DIFFERENTIAL YES; POSITIVE MORPHOLOGY YES; Platelet Count 193 K/mm3 (150-450); RBC Distribution Width CV 19.3 % (11.6-14.6); RBC Distribution Width SD 61.1 fl (35.1-43.9); Red Blood Count 3.24 M/mm3 (4.6-6.2)
[2023-04-02 05:04] LABS: Differential Indicated SCAN CRITERIA MET; White Blood Count 49.4 K/mm3 (4.4-11.0)
[2023-04-02 05:47] LABS: Anion Gap 7 (5-15); BUN 36 mg/dL (7-18); BUN/Creat Ratio 17.7 RATIO (10-20); Calcium,Total 8.6 mg/dL (8.5-10.1); Chloride 105 mmol/L (98-107); Creatinine, Serum 2.03 mg/dL (0.70-1.30); EST Glomerular Filtration Rate 33 mL/min (>60); Est Glom Filt Rate - Afr Amer 40 mL/min (>60); Estimated Creatinine Clearance 26.21 ml/min; Glucose 112 mg/dL (74-106); Potassium 3.2 mmol/L (3.5-5.1); Sodium Level 143 mmol/L (136-145)
[2023-04-02] MEDS: Potassium Chloride Oral Tablet 20 MEQ 60 MEQ PO (06:50)
[2023-04-02 07:04] VITALS: O2SAT 95
[2023-04-02 08:55] VITALS: BP 165/77; PULSE 77; RESP 14; TEMP 36.8; O2SAT 94
[2023-04-02 09:54] LABS: Vitamin B12 > 2000 pg/mL (211-911)
[2023-04-02] MEDS: Carvedilol 25 MG Tablet PO (10:02)
[2023-04-02] MEDS: Tamsulosin HCl 0.4 MG Capsule PO (10:02)
[2023-04-02] MEDS: Furosemide 40 MG/4 ML Vial IV (10:02)
[2023-04-02] MEDS: Zinc Sulfate 50 mg zinc (220 mg) ORAL capsule PO (10:03)
[2023-04-02] MEDS: 0.9% Saline Lock 10 ML Syringe IV (10:03)
[2023-04-02] MEDS: SACUBITRIL/VALSARTAN 49-51 MG TABLET 1 EACH PO (10:03)
[2023-04-02] MEDS: Menthol/Lanolin/Calamine/Znox 113 GM Tube 1 APPLIC TOPICAL (10:04)
[2023-04-02] MEDS: Heparin Injection (Vial) 5,000 UNIT/ML VIAL 5000 UNIT SC (10:05)
--- NOTE | 2023-04-02 11:27 | PCM.DC ---
Discharge Instructions Diet Discharge Diet: No restrictions Activity Discharge Activity: Return to Normal Activity Weight Bearing Status: Full weight bearing Follow Up Care Test Results: Test results from this visit will be discussed in further detail at your follow-up appointment, if applicable. Discharge Plan Admission Admit Date/Time: 03/31/23 16:10 Primary Reason for Your Visit: edema Attending Provider: Marco Antonio Recinos Primary Care Provider: German Gu NP Consulting Providers: Zari Jose; Yovani Soto Instructions Additional Instructions / Restrictions: With your account solutions analyst as scheduled Discharge Orders/Prescriptions Prescriptions: New furosemide [Lasix] 40 mg tablet 40 mg PO DAILY Qty: 30 0RF potassium chloride 20 mEq tablet extended release 20 meq PO DAILY Qty: 30 0RF Continued Entresto 49-51 mg tablet 1 tab PO BID Hold Instructions: Resume on 03/15/23. zinc acetate 50 mg (zinc) capsule 50 mg PO DAILY polysaccharide iron complex [Ferrex 150] 150 mg iron capsule 150 mg PO DAILY Qty: 30 1RF multivitamin [Daily Multiple] 1 EACH tablet 1 ea PO DAILY Patient Comments: SUPPLEMENT cholecalciferol (vitamin D3) [Vitamin D3] 1,000 UNIT capsule 50 mcg PO DAILY carvedilol 25 MG tablet 25 mg PO BID Osteo Bi-Flex Triple Strength 1 EACH tablet 1 ea PO DAILY atorvastatin 10 mg tablet 10 mg PO DAILY tamsulosin 0.4 mg Capsule 0.4 mg PO DAILY 30 Days Qty: 30 0RF ondansetron 4 mg tablet,disintegrating 4 mg PO Q6H PRN (Reason: nausea and vomiting) Qty: 10 0RF nortriptyline 50 mg capsule 50 mg PO BID Referrals / Follow Up: German Gu NP, REAL ESTATE ASSET MANAGER-C [Primary Care Provider] - Within 2 Weeks Disposition Disposition (needs filled in before D/C Order can be placed): Home, Self Care
--- NOTE | 2023-04-02 12:25 | PHA.DC.MC.R ---
Pharmacy [facility] has performed discharge medication reconciliation and counseling for this patient. The patient's discharge medication list was reviewed for discrepancies and discrepancies were resolved. The patient was counseled on the following discharge medications and changes in medications for homegoing were reviewed. The Reason for Use, instructions for use, and potential side effects were reviewed for all new medications. The patient's questions regarding all of their medications were answered. 1. furosemide 40 mg PO daily 2. potassium chloride 20 mEq PO daily The patient was able to verbally demonstrate an understanding of their discharge medications. The patient was counselled on new medications by director of student financial services Hunter. Medications at Discharge Home Medications multivitamin (Daily Multiple tablet) 1 ea PO DAILY 03/15/15 cholecalciferol (vitamin D3) 25 mcg (1,000 unit) capsule (Vitamin D3) 50 mcg PO DAILY 08/09/16 carvedilol 25 mg tablet 25 mg PO BID 08/24/16 glucosamine 750 [id number] no1 644 mg-C 30 mg-gilson 1 mg tablet (Osteo Bi-Flex Triple Strength) 1 ea PO DAILY 08/24/16 sacubitril 49 mg-valsartan 51 mg tablet (Entresto) 1 tab PO BID 08/24/22 zinc acetate 50 mg (zinc) capsule 50 mg PO DAILY 08/24/22 atorvastatin 10 mg tablet 10 mg PO DAILY 03/04/23 tamsulosin 0.4 mg capsule 0.4 mg PO DAILY 30 days #30 caps 03/06/23 ondansetron 4 mg disintegrating tablet 4 mg PO Q6H PRN nausea and vomiting #10 tabs 03/15/23 polysaccharide iron complex 150 mg iron capsule (Ferrex) 150 mg PO DAILY #30 caps 03/20/23 nortriptyline 50 mg capsule 50 mg PO BID neuropathy 03/31/23 furosemide 40 mg tablet (Lasix) 40 mg PO DAILY #30 tabs 04/02/23 potassium chloride 20 mEq tablet,extended release 20 meq PO DAILY #30 tabs 04/02/23
--- NOTE | 2023-04-02 13:08 | CASEMGMT ---
Patient has order for discharge. RN CM in to discuss needs at discharge with patient. Patient deny needs for at discharge. Patient states he has a scale at home. RN CM encouraged patient to weigh self daily and to updated PCP with significant weight increases. Patient and voiced understanding. Patient had no further questions or concerns.
--- NOTE | 2023-04-02 13:16 | CASEMGMT ---
Met with patient and his to complete RICCI form. RICCI form explained to both who voiced understanding, Patient requested that his sign form. Original form placed in pt?s chart and copy provided to?patient. Tammy Vital, Discharge Planning Asst
--- NOTE | 2023-04-02 14:14 | PCM.DC ---
Discharge Instructions Diet Discharge Diet: No restrictions Activity Weight Bearing Status: Full weight bearing Follow Up Care Test Results: Test results from this visit will be discussed in further detail at your follow-up appointment, if applicable. Discharge Plan Admission Admit Date/Time: 03/31/23 16:10 Primary Reason for Your Visit: edema Attending Provider: Marco Antonio Recinos Primary Care Provider: German Gu NP Consulting Providers: Zari Jose; Yovani Soto Instructions Additional Instructions / Restrictions: With your catalyst unit operator as scheduled Weight yourself daily, if you gain more than 5 pounds per week, notify your catalyst unit operator Discharge Orders/Prescriptions Prescriptions: New furosemide [Lasix] 40 mg tablet 40 mg PO DAILY Qty: 30 0RF potassium chloride 20 mEq tablet extended release 20 meq PO DAILY Qty: 30 0RF Continued Entresto 49-51 mg tablet 1 tab PO BID Hold Instructions: Resume on 03/15/23. zinc acetate 50 mg (zinc) capsule 50 mg PO DAILY polysaccharide iron complex [Ferrex 150] 150 mg iron capsule 150 mg PO DAILY Qty: 30 1RF multivitamin [Daily Multiple] 1 EACH tablet 1 ea PO DAILY Patient Comments: SUPPLEMENT cholecalciferol (vitamin D3) [Vitamin D3] 1,000 UNIT capsule 50 mcg PO DAILY carvedilol 25 MG tablet 25 mg PO BID Osteo Bi-Flex Triple Strength 1 EACH tablet 1 ea PO DAILY atorvastatin 10 mg tablet 10 mg PO DAILY tamsulosin 0.4 mg Capsule 0.4 mg PO DAILY 30 Days Qty: 30 0RF ondansetron 4 mg tablet,disintegrating 4 mg PO Q6H PRN (Reason: nausea and vomiting) Qty: 10 0RF nortriptyline 50 mg capsule 50 mg PO BID Referrals / Follow Up: German Gu NP, SAFETY SEALER-C [Primary Care Provider] - Within 2 Weeks Disposition Disposition (needs filled in before D/C Order can be placed): Home, Self Care
[2023-04-02 14:38] VITALS: BP 167/87; PULSE 68; RESP 16; TEMP 37.4; O2SAT 94
[2023-04-02 15:00] VITALS: BP 167/77; PULSE 76
--- NOTE | 2023-04-02 19:37 | DS.PCM_ITS ---
Providers Date of Admission: 03/31/23 Date of Discharge: 04/02/23 Primary Care Physician: RENETTA Justice Reason For Visit: PEIRPHERAL EDEMA, ? 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 #4 essential hypertension #5 hyperlipidemia #6 severe mitral valve insufficiency Medications at Discharge Home Medications multivitamin (Daily Multiple tablet) 1 ea PO DAILY 03/15/15 cholecalciferol (vitamin D3) 25 mcg (1,000 unit) capsule (Vitamin D3) 50 mcg PO DAILY 08/09/16 carvedilol 25 mg tablet 25 mg PO BID 08/24/16 glucosamine 750 [id number] no1 644 mg-C 30 mg-gilson 1 mg tablet (Osteo Bi-Flex Triple Strength) 1 ea PO DAILY 08/24/16 sacubitril 49 mg-valsartan 51 mg tablet (Entresto) 1 tab PO BID 08/24/22 zinc acetate 50 mg (zinc) capsule 50 mg PO DAILY 08/24/22 atorvastatin 10 mg tablet 10 mg PO DAILY 03/04/23 tamsulosin 0.4 mg capsule 0.4 mg PO DAILY 30 days #30 caps 03/06/23 ondansetron 4 mg disintegrating tablet 4 mg PO Q6H PRN nausea and vomiting #10 tabs 03/15/23 polysaccharide iron complex 150 mg iron capsule (Ferrex) 150 mg PO DAILY #30 caps 03/20/23 nortriptyline 50 mg capsule 50 mg PO BID neuropathy 03/31/23 furosemide 40 mg tablet (Lasix) 40 mg PO DAILY #30 tabs 04/02/23 potassium chloride 20 mEq tablet,extended release 20 meq PO DAILY #30 tabs 04/02/23 Hospital Course Operations None Procedures 2-D Echocardiogram Summary of Care Provided Minutes Spent on Discharge: 32 Hospital Course: This 82-year-old white male was seen in the emergency room at [facility] with complaints of swelling of his left arm and both legs, patient denied any chest pain or shortness of breath patient had +1 pitting edema over both lower extremities, there is noted to be swelling of his left hand and forearm. Patient's pulse ox was above 90% on room air. Patient's labs showed an elevated white count which was normal due to his chronic leukemia, hemoglobin was 7.8, beta natruretic peptide was elevated at 1597, chest x-ray showed no gross evidence of pulmonary edema. Patient was admitted to PCU for acute on chronic congestive heart failure, echocardiogram was obtained which showed a reduced ejection fraction of 30% and severe mitral regurg. Patient was treated with IV Lasix, Doppler of the left arm did not show any evidence of thrombus. Patient improved during his hospital stay. On 04/02/2023, patient was seen and examined: On examination he appeared in good health and spirits. Vital signs as documented. Skin warm and dry and without overt rashes. Neck without JVD, neck was supple, trachea midline, thyroid was normal. Lungs clear bilaterally, normal air movement was noted. Heart exam notable for regular rhythm, normal sounds and absence of murmurs, rubs or gallops. Abdomen unremarkable and without evidence of organomegaly, masses, or abdominal aortic enlargement. Bowel sounds are present, abdomen is not distended. Extremities nonedematous, no cyanosis was noted, no clubbing was noted. Neuro: Cranial nerves II through XII are grossly intact, no focal motor deficits were noted, sensation to light touch and pinprick intact, motor exam 5/5 throughout. Psych: Patient is alert and oriented x3, he does not appear anxious or depressed, he does not appear agitated. Patient was discharged home in stable condition on 04/02/2020 Weight / BMI Weight Weight: 81.8 kg Body Mass Index (BMI) 27.4 ABG / Lab / Microbiology Data 04/02/23 04:12 04/02/23 04:12 Laboratory: Laboratory Results - last 24 hr 04/02/23 04:12: WBC 49.4 H*, RBC 3.24 L, Hgb 8.5 L, Hct 28.5 L, MCV 88.0, MCH 26.2 L, MCHC 29.8 L, RDW Std Deviation 61.1 H, RDW Coeff of Willie 19.3 H, Plt Cou nt 193, MPV 10.1, Immature Gran % (Auto) 0.300, Neut % (Auto) 12.4 L, Lymph % (Auto) 84.9 H, [place] % (Auto) 1.7, Eos % (Auto) 0.6, Baso % (Auto) 0.1, Absolute Neuts (auto) 6.1, Absolute Lymphs (auto) 41.94 H, Nucleated RBC % 0, Diff erential Comment COMMENT, Diff Path Review September foll, Sodium 143, Potassium 3.2 L , Chloride 105, Carbon Dioxide 31.0, Anion Gap 7, BUN 36 H, Creatinine 2.03 H, Estim Creat Clear Calc 26.21, Est GFR (MDRD) Af Amer 40 L, Est GFR (MDRD) Non-Af 33 L, BUN/Creatinine Ratio 17.7, Glucose 112 H, Calcium 8.6, Vitamin B12 > 2000 H Radiography Diagnostic Testing: Radiology Impression Venous Doppler Study 03/31/23 16:14 Interpretation Summary Deep veins of the bilateral lower extremities are patent and compressible segmentally. There is no evidence of bilateral lower extremity deep vein thrombosis. The bilateral great saphenous veins appear patent and compressible segmentally. Ordering Physician: Zari Jose Referring Physician: Kenn Gu Performed By: Verito Curiel RVT Venous Doppler Study 03/31/23 16:14 Interpretation Summary Deep veins of the left upper extremity are patent and compressible segmentally. There is no evidence of deep vein thrombosis. Superficial veins of the left upper extremity are patent and compressible segmentally. There is no evidence of superficial vein thrombosis. Ordering Physician: Zari Jose Referring Physician: Kenn Gu Performed By: Willinger, Verito, RVT ??? Echocardiogram 03/31/23 16:55 Interpretation Summary Moderately dilated left ventricle. Mild concentric left ventricular hypertrophy. The left ventricular ejection fraction is 30 %. Diastolic function is indeterminate. The left atrium is moderately enlarged. Mild mitral annular calcification. Moderately severe (3+) posteriorly directed mitral valve insufficiency. Mild (1+) aortic valve insufficiency. Mild (1+) pulmonic valve insufficiency. Ordering Physician: Zari Jose Referring Physician: KENN GU Performed By: Sommer Hernandez RCS D/C Instructions Discharge Diet: No restrictions Weight Bearing Status: Full weight bearing Meaningful Use Info Meaningful Use Diagnoses (Choose all that apply): CHF CHF HERACLIO/ARB ordered at discharge?: Yes Documented LVEF (%): 30 Discharge Plan Admission Admit Date/Time: 03/31/23 16:10 Primary Reason for Your Visit: edema Attending Provider: Marco Antonio Recinos Primary Care Provider: Kenn Gu NP Consulting Providers: Zari Jose; Yoavni Soto Instructions Additional Instructions / Restrictions: With your database design analyst as scheduled Weight yourself daily, if you gain more than 5 pounds per week, notify your database design analyst Discharge Orders/Prescriptions Prescriptions: New furosemide [Lasix] 40 mg tablet 40 mg PO DAILY Qty: 30 0RF potassium chloride 20 mEq tablet extended release 20 meq PO DAILY Qty: 30 0RF Continued Entresto 49-51 mg tablet 1 tab PO BID Hold Instructions: Resume on 03/15/23. zinc acetate 50 mg (zinc) capsule 50 mg PO DAILY polysaccharide iron complex [Ferrex 150] 150 mg iron capsule 150 mg PO DAILY Qty: 30 1RF multivitamin [Daily Multiple] 1 EACH tablet 1 ea PO DAILY Patient Comments: SUPPLEMENT cholecalciferol (vitamin D3) [Vitamin D3] 1,000 UNIT capsule 50 mcg PO DAILY carvedilol 25 MG tablet 25 mg PO BID Osteo Bi-Flex Triple Strength 1 EACH tablet 1 ea PO DAILY atorvastatin 10 mg tablet 10 mg PO DAILY tamsulosin 0.4 mg Capsule 0.4 mg PO DAILY 30 Days Qty: 30 0RF ondansetron 4 mg tablet,disintegrating 4 mg PO Q6H PRN (Reason: nausea and vomiting) Qty: 10 0RF nortriptyline 50 mg capsule 50 mg PO BID Referrals / Follow Up: Kenn Gu SUPERINTENDENT POLICE, SUPERINTENDENT POLICE-C [Primary Care Provider] - Within 2 Weeks Disposition Disposition (needs filled in before D/C Order can be placed): Home, Self Care Charges/Coding Visit Charges Inpatient E&M: 50891 Disch Hosp >30min
[2023-04-03 10:00] LABS: Pathologist Review Reviewed
[2023-04-03 10:08] LABS: Pathologist Review Reviewed
[2023-04-03 10:11] LABS: Pathologist Review Reviewed
== END 2023-04-02 15:56 | disposition home or self-care (01) ==
LOC: ED 16:21 → PCU 16:26
PROVIDERS: Admitting Provider Family Medicine; Emergency Provider Emergency Medicine; PCP Nurse Practitioner Primary Care; Visit Provider Internal Medicine
DX: I13.0 Hypertensive heart and chronic kidney disease with heart failure and stage 1 through stage 4 chronic kidney disease, or unspecified chronic kidney disease (principal); C91.10 Chronic lymphocytic leukemia of B-cell type not having achieved remission; I42.8 Other cardiomyopathies; I50.23 Acute on chronic systolic (congestive) heart failure; N18.32 Chronic kidney disease, stage 3b; I08.3 Combined rheumatic disorders of mitral, aortic and tricuspid valves; D50.9 Iron deficiency anemia, unspecified; E78.00 Pure hypercholesterolemia, unspecified; Z95.0 Presence of cardiac pacemaker; Z79.899 Other long term (current) drug therapy
CPT/HCPCS: 36415; 71045; 80048; 80053; 80061; 82607; 82728; 82746; 83540; 83550; 83735; 83880; 84100; 84439; 84443; 84484; 85025; 93005; 93306; 93970; 93971; 94667; 94668; 96372; 96374; 96376; 99221; 99252; 99285; A4216; G0378; G0463; J1940

== ENCOUNTER → 2023-04-20 | Outpatient (CLI) | payer MEDICARE, SELFPAY ==
--- NOTE | 2023-04-20 10:25 | MRI_ITS ---
STUDY: MRI ABDOMEN WITH AND WITHOUT CONTRAST REASON FOR EXAM: Male, 82 years old. PANCREATIC PROTOCOL/AMPULLAR CA TECHNIQUE: Standardized fat and water weighted pulse sequences were obtained in all 3 orthogonal planes post contrast administration. IV 15CC CLARISCAN was administered for the contrast portion of the examination. COMPARISON: CT 03/12/2023 FINDINGS: The visualized lung bases are unremarkable. The visualized portions of the heart are within normal limits. Multiple nonenhancing hepatic cysts primarily in the left lobe. The largest measures 3 cm in the lateral segment left lobe. There are multiple gallstones. Normal spleen. Normal pancreas. Normal bilateral adrenal glands. Multiple bilateral renal cysts. 1.5 cm cyst of the posterior cortex in the midsection left kidney is T1 slightly hyperintense, T2 slightly hyperintense and does not demonstrate contrast enhancement consistent with a hyperdense (hemorrhagic or proteinaceous) (cyst. There is a 4 cm oval T1 hyperintense, T2 hyperintense with fluid fluid level nonenhancing mass of the upper pole the left kidney consistent with another hyperdense (hemorrhagic or proteinaceous) cyst. Normal visualized stomach. Normal small intestine. Normal colon. There is non-visualization of the appendix. Normal abdominal aorta. Normal inferior vena cava. Multiple enlarged retroperitoneal lymph nodes at the level of the renal arteries worrisome for metastatic lymphadenopathy. The largest discrete lymph node is a left aortic lymph node that measures 1.5 x 2.2 cm. Normal abdominal wall. Normal osseous structures. MRI/MRI Abd WITH and W/O Contrast IMPRESSION: 1. No obvious pancreatic mass. 2. Multiple benign hepatic cysts. 3. Multiple bilateral renal cysts including hyperdense (hemorrhagic or proteinaceous) (Bosniak type II) (cyst. 4. Suspect metastatic retroperitoneal lymphadenopathy. Electronically Signed: Jenaro Murphy MD at 0:28 EST ,
[2023-04-20 10:57] VITALS: BP 148/86; PULSE 100; RESP 18; O2SAT 98
[2023-04-20 11:12] VITALS: BP 129/79; PULSE 100; O2SAT 99
[2023-04-20 11:27] VITALS: BP 152/77; PULSE 100; O2SAT 97
== END | disposition home or self-care (01) ==
PROVIDERS: PCP Nurse Practitioner Primary Care; Referring Provider Internal Medicine Medical Oncology; Visit Provider Internal Medicine Medical Oncology
DX: C24.1 Malignant neoplasm of ampulla of Vater (principal)
CPT/HCPCS: 74183; A9575; A4216

== ENCOUNTER 2023-08-07 12:29 | Inpatient (IN) | payer MEDICARE, SELFPAY ==
[2023-08-07] VITALS (12 sets, daily range): BP systolic 149–179; BP diastolic 74–94; PULSE 71–95; RESP 16–24; TEMP 36–36.7; O2SAT 79–98; BMI 25.5; BMI 25.0
--- NOTE | 2023-08-07 13:13 | EKG12_ITS ---
Test Reason : SOB Blood Pressure : / mmHG Vent. Rate : 081 BPM Atrial Rate : 081 BPM P-R Int : 128 ms QRS Dur : 166 ms QT Int : 446 ms P-R-T Axes : 050 228 052 degrees QTc Int : 518 ms Atrial-sensed ventricular-paced rhythm Biventricular pacemaker detected Abnormal ECG Confirmed by VEE MCKEON, SHASHANK ([id number]), assistant film editor SHWETA MORENO ([id number]) on 08/08/2023 9:33:27 AM Referred By: Confirmed By:SHASHANK BAXTER MD
--- NOTE | 2023-08-07 13:15 | EDS_ITS ---
HPI History of Present Illness Chief Complaint: Shortness of Breath Detail of Chief Complaint: Shortness of breath Informant: patient Narrative Narrative: Patient presents with shortness of breath that started 2 days ago. Complains of exertional dyspnea. Denies weight gain. Has had no fever. He started with a cough today. He had some sweats last night. Daughter came to visit from out of town today and noted that he had some increased confusion today. Patient with history of hypertension and cholesterol as well as CKD and history of CLL. Patient has a pacer and defibrillator. Patient denies any chest pain. He denies recent travel or surgery. No history of PE or DVT. [facility] Medical History Back pain due to injury CKD (chronic kidney disease), stage III CLL (chronic lymphocytic leukemia) Essential hypertension HFrEF (heart failure with reduced ejection fraction) High cholesterol Iron deficiency anemia LBBB (left bundle branch block) Non-ischemic cardiomyopathy Orthostatic hypotension Pacemaker Peripheral neuropathy Prostate cancer Restless leg syndrome Subdural hematoma Ventricular tachycardia Home Medications cholecalciferol (vitamin D3) 25 mcg (1,000 unit) capsule (Vitamin D3) 50 mcg PO DAILY 08/09/16 [History Last Taken 03/31/23] carvedilol 25 mg tablet 25 mg PO BID 08/24/16 [History Last Taken 03/04/23] glucosamine 750 [id number] no1 644 mg-C 30 mg-gilson 1 mg tablet (Osteo Bi-Flex Triple Strength) 1 ea PO DAILY 08/24/16 [History Last Taken 03/31/23] sacubitril 49 mg-valsartan 51 mg tablet (Entresto) 1 tab PO BID 08/24/22 [History Last Taken 03/31/23] zinc acetate 50 mg (zinc) capsule 50 mg PO DAILY 08/24/22 [History Last Taken 03/31/23] atorvastatin 10 mg tablet 10 mg PO DAILY 03/04/23 [History Last Taken 03/30/23] tamsulosin 0.4 mg capsule 0.4 mg PO DAILY 30 days #30 caps 03/06/23 [Rx Last Taken 03/31/23] ondansetron 4 mg disintegrating tablet 4 mg PO Q6H PRN nausea and vomiting #10 tabs 03/15/23 [Rx Last Taken Unknown] polysaccharide iron complex 150 mg iron capsule (Ferrex) 150 mg PO DAILY #30 caps 03/20/23 [Rx Last Taken 03/31/23] nortriptyline 50 mg capsule 50 mg PO BID neuropathy 03/31/23 [History Last Taken 03/31/23] multivitamin (Daily Multi-Vitamin tablet) 1 tab PO DAILY 08/07/23 [History Last Taken Unknown] potassium chloride 10 mEq capsule,extended release 10 meq PO DAILY 08/07/23 [History Last Taken Unknown] Allergy/AdvReac Type Severity Reaction Status Date / Time lisinopril AdvReac Unknown cough Verified 08/07/23 12:30 Family History Mother CVA (cerebral vascular accident) Hypertension Diabetes Father Ischemic heart disease Diabetes Surgical History Cardiac 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 therapy 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 (~09/2015) History of arthroplasty of finger of left hand History of colonoscopy History of left heart catheterization (09/22/15) S/P TURP Splenic artery aneurysm Status post laser lithotripsy of ureteral calculus Social History household members: spouse Smoking Status: Never smoker alcohol intake: never substance use type: does not use caffeine: Yes Type: coffee Number of servings: 3 ROS ROS ED Review of Systems ROS Unobtainable: other Constitutional Constitutional ED: Reports lethargy; Denies chills, fever(s), sweats or weight loss Eyes Eyes: Denies blurry vision, change in vision or diplopia ENT ENT ED: Denies rhinorrhea or sore throat Cardiovascular Cardiovascular: Denies chest pain, orthopnea or racing heartbeat Respiratory/Chest Respiratory/Chest: Reports cough, dyspnea and dyspnea on exertion; Denies orthopnea or sputum Gastrointestinal Gastrointestinal: Denies abdominal pain, diarrhea, nausea or vomiting Genitourinary Genitourinary ED: Denies dysuria, hematuria or urinary frequency Musculoskeletal Musculoskeletal: Denies arthralgias, back pain, myalgias or neck pain Integumentary Denies abscess, Abrasions or rash Neurologic Neurologic: Denies headache(s) or weakness Psychiatric Psychiatric: Denies anxiety, depression or suicidal thoughts Endocrine Endocrinology: Denies polydipsia, polyphagia or polyuria Hematologic/Lymphatic Hematologic/Lymphatic: Denies easy bleeding, easy bruising or lymphadenopathy Allergic/Immunologic Allergic/Immunologic ED: Denies mouth swelling, tongue swelling or urticaria EXAM Physical Exam Const Vital Signs: 08/07/23 12:30 08/07/23 12:30 08/07/23 12:33 Temperature 96.8 F L 97.7 F L Temperature Source Temporal Oral Pulse Rate 95 93 95 Respiratory Rate 22 H 22 H 23 H Respiratory Effort Respiratory Depth Respiratory Pattern Blood Pressure 171/94 H 171/94 H 179/94 H Blood Pressure Mean 119 119 122 Pulse Ox 93 94 91 Oxygen Delivery Method Room Air Room Air Room Air 08/07/23 12:41 08/07/23 13:18 08/07/23 13:23 Temperature Temperature Source Pulse Rate 84 Respiratory Rate 22 H Respiratory Effort Normal Non-Labored Respiratory Depth Normal Respiratory Pattern Normal Tachypnea Blood Pressure Blood Pressure Mean Pulse Ox Oxygen Delivery Method Room Air Room Air 08/07/23 13:33 08/07/23 14:00 Temperature 97.8 F 97.9 F Temperature Source Oral Oral Pulse Rate 82 83 Respiratory Rate 23 H 17 Respiratory Effort Respiratory Depth Respiratory Pattern Blood Pressure 157/87 H 161/85 H Blood Pressure Mean 110 108 Pulse Ox 94 92 Oxygen Delivery Method Room Air Positive well nourished and well developed General Appearance ED: well developed and NAD HEENT Reports TM's clear and moist mucous membranes normocephalic and atraumatic; Negative for trauma or tenderness Tympanic Membrane ED: Yes TM's clear Eyes PERRL and EOMs intact bilaterally General Eye ED: Negative for pale conjunctiva or scleral icterus Neck no lymphadenopathy, supple and no JVD General: Negative for tenderness Chest Wall inspection of chest normal and palpation of chest normal Chest: Negative for tenderness Resp normal respiratory effort and clear to auscultation bilaterally Resp Narrative: Rales noted in the right base. He does have tachypnea with some mild conversational dyspnea at rest. No accessory muscle use or retractions. Effort and Inspection: Negative for respiratory distress or pain with movement Auscultation: Negative for rhonchi, wheezes or diminished lung sounds Cardio regular rate, regular rhythm, S1 normal heart sound, S2 normal heart sound and no murmurs Peripheral Pulses: pulses 2+ throughout GI normal to inspection, nondistended, normoactive bowel sounds, soft to palpation, non-tender, non-distended and no masses Back/Spine no CVA tenderness and no thoracic nor lumbar tenderness Extremity normal to inspection Extremity Narrative: Trace edema both lower extremities. Neuro oriented x3, CN's II-XII intact bilaterally, no sensory deficits noted and gait normal Sensorium / Orientation: awake, alert, oriented to person, oriented to place and oriented to time Motor Exam: strength 5/5 throughout and strength abnormal Psych mental status grossly normal Skin no rashes or lesions noted and no wounds MDM MDM MDM Narrative Medical decision making narrative: Patient presents with dyspnea. History of CLL. Denies fever. He did develop a cough today. He denied having history of CHF or COPD to me. IV line established. EKG obtained showed atrially sensed ventricularly paced rhythm with rate of 81 bpm with left bundle branch block morphology. CBC with differential showed a white count of 55,000 with hemoglobin 9.2 and platelet count of 236. Chemistries unremarkable. BUN was 44 and creatinine 1.91. D- dimer elevated 1.43. BNP was elevated 4227. Troponin was 34. Did review his prior medical records and it is noted that he does have history of CHF. Patient had an echocardiogram in March 2023 that showed an EF of 30%. Patient was given Lasix 40 mg IV and started nitro paste. With minimal movement patient desaturates O2 sats down into the 70s. Case will be discussed with hospitalist to evaluate patient for admission. I did obtain a CTA of the chest to rule out PE given his history of CLL and elevated D-dimer and dyspnea. Official report pending but on my interpretation I do not appreciate any obvious PEs and did note bilateral pleural effusions and pulmonary edema. Lab Data Attestation: I reviewed the patient's lab results. Labs: Laboratory Results - last 24 hr 08/07/23 13:37 WBC 55.2 H* RBC 3.50 L Hgb 9.2 L Hct 30.7 L MCV 87.7 MCH 26.3 L MCHC 30.0 L RDW Std Deviation 57.8 H RDW Coeff of Willie 18.3 H Plt Count 236 MPV 10.4 Immature Gran % (Auto) 0.400 Neut % (Auto) 11.0 L Lymph % (Auto) 82.7 H [place] % (Auto) 5.2 Eos % (Auto) 0.4 Baso % (Auto) 0.3 Absolute Neuts (auto) 6.1 Absolute Lymphs (auto) 45.68 H Nucleated RBC % 0 Differential Comment SCANNED Diff Path Review May foll Smudge Cells 2+ D-Dimer Quant (PE/DVT) 1.43 H* Sodium 143 Potassium 4.5 Chloride 110 H Carbon Dioxide 25.0 Anion Gap 8 BUN 44 H Creatinine 1.91 H Estim Creat Clear Calc 29.20 Est GFR (MDRD) Af Amer 43 L Est GFR (MDRD) Non-Af 36 L BUN/Creatinine Ratio 23.0 H Glucose 121 H Lactic Acid 0.9 Calcium 9.1 Troponin I High Sens 34 B-Natriuretic Peptide 4227.8 H Radiography Diagnostic Testing: Clinical Impression(s) from Imaging Studies Chest X-Ray 08/07/23 13:30 IMPRESSION: Mild cardiomegaly and the vascular congestion with CHF. Blunting of both costophrenic angles. Electronically Signed: Gerson Watkins MD at 13:48 EDT , 1 view chest x-ray obtained interpreted by myself as cardiomegaly with pulmonary congestion and small pleural effusions. Radiology in agreement noted cardiomegaly and vascular congestion with CHF. EKG Initial EKG: Attestation: I personally reviewed and interpreted this EKG as follows: Comments: Atrially sensed and ventricularly paced rhythm with rate of 81 bpm with left bundle branch block morphology. Discharge Plan Triage Chief Complaint: Shortness of Breath Other Complaint: Cough ED Provider: Ian Lujan Dx/Rx/DC Orders Clinical Impression: Acute exacerbation of CHF (congestive heart failure), Personal history of chronic lymphocytic leukemia, Hypoxemia, Leukocytosis Prescriptions: No Action Entresto 49-51 mg tablet 1 tab PO BID Hold Instructions: Resume on 03/15/23. zinc acetate 50 mg (zinc) capsule 50 mg PO DAILY polysaccharide iron complex [Ferrex 150] 150 mg iron capsule 150 mg PO DAILY Qty: 30 1RF cholecalciferol (vitamin D3) [Vitamin D3] 1,000 UNIT capsule 50 mcg PO DAILY Patient Comments: pt unsure if 25mcg or 50 mcg carvedilol 25 MG tablet 25 mg PO BID Osteo Bi-Flex Triple Strength 1 EACH tablet 1 ea PO DAILY atorvastatin 10 mg tablet 10 mg PO DAILY tamsulosin 0.4 mg Capsule 0.4 mg PO DAILY 30 Days Qty: 30 0RF ondansetron 4 mg tablet,disintegrating 4 mg PO Q6H PRN (Reason: nausea and vomiting) Qty: 10 0RF nortriptyline 50 mg capsule 50 mg PO BID multivitamin [Daily Multi-Vitamin] Tablet 1 tab PO DAILY potassium chloride 10 mEq capsule, extended release 10 meq PO DAILY Primary Care Provider: German Gu NP Referrals: German Gu NP, [facility] [Primary Care Provider] - Disposition Disposition: Acute Care Hospital [facility]
[2023-08-07] MEDS: Ipratropium/Albuterol Sulfate 3 ML AMPUL.NEB INHALATION (13:22)
--- NOTE | 2023-08-07 13:30 | RAD_ITS ---
STUDY: X-RAY CHEST REASON FOR EXAM: Male, 83 years old. dyspnea TECHNIQUE: Single AP portable view of the chest. COMPARISON: Comparison is made with prior study March 31, 2023. FINDINGS: EKG electrodes are seen. Blunting of both cosmetic angles. Vascular congestion and mild degree of CHF with superimposed bibasilar atelectasis. There is mild cardiac enlargement. A left-sided dual-chamber pacemaker is seen. Normal mediastinum and emerson. Normal visualized pulmonary arteries. There is atherosclerotic calcification of the aortic arch with tortuosity. There are diffuse degenerative changes of the visualized thoracic spine. There is degenerative osteoarthritis of the bilateral shoulders. There is no demonstrated abnormality of the visualized soft tissue structures of the upper abdomen. RAD/Chest 1 View (Portable) IMPRESSION: Mild cardiomegaly and the vascular congestion with CHF. Blunting of both costophrenic angles. Electronically Signed: Gerson Watkins MD at 13:48 EDT ,
[2023-08-07 13:49] LABS: Absolute Lymphocyte Count 45.68 X10^3/uL (0.83-4.51); Absolute Neutrophil Count 6.1 X10^3/uL (2.0-7.7); Basophil# 0.14 X10^3/uL; Basophil% 0.3 % (0-1); Eosinophils% 0.4 % (0-5); Hematocrit 30.7 % (40-54); Hemoglobin 9.2 g/dL (13.0-16.5); Lymphocyte # 45.68 X10^3/ul (0.83-4.51); Lymphocyte % 82.7 % (19-41); Mean Corpuscular Hgb 26.3 pg (27.0-32.0); Mean Corpuscular Volume 87.7 fL (80-94); Mean Platelet Vol. 10.4 fl (6.2-12.0); Monocyte# 2.87 X10^3/uL; Monocyte% 5.2 % (0-10); NRBC Flagged by Analyzer 0 % (0-5); Neutrophil # 6.13 X10^3/uL (2.7-7.7); POSITIVE COUNT YES; POSITIVE DIFFERENTIAL YES; POSITIVE MORPHOLOGY YES; Platelet Count 236 K/mm3 (150-450); RBC Distribution Width CV 18.3 % (11.6-14.6); RBC Distribution Width SD 57.8 fl (35.1-43.9); White Blood Count 55.2 K/mm3 (4.4-11.0)
[2023-08-07 13:51] LABS: Differential Indicated SCAN CRITERIA MET
[2023-08-07 14:05] LABS: Lactic Acid 0.9 mmol/L (0.4-1.9)
[2023-08-07 14:08] LABS: Anion Gap 8 (5-15); BUN 44 mg/dL (7-18); Calcium,Total 9.1 mg/dL (8.5-10.1); Chloride 110 mmol/L (98-107); Creatinine, Serum 1.91 mg/dL (0.70-1.30); EST Glomerular Filtration Rate 36 mL/min (>60); Est Glom Filt Rate - Afr Amer 43 mL/min (>60); Glucose 121 mg/dL (74-106); Potassium 4.5 mmol/L (3.5-5.1); Sodium Level 143 mmol/L (136-145); Troponin-I HS 34 pg/mL (3.0-78.0)
[2023-08-07 14:11] LABS: D-Dimer Quantitative (DVT/PE) 1.43 FEU/ug/m (0.27-0.49)
[2023-08-07 14:12] LABS: Differential Comment SCANNED; Smudge Cells 2+
[2023-08-07] MEDS: Furosemide 40 MG/4 ML Vial IV ×2 (14:19→17:17)
--- NOTE | 2023-08-07 14:28 | CT_ITS ---
STUDY: CTA CHEST REASON FOR EXAM: Male, 83 years old. Elevated d-dimer RADIATION DOSAGE (If Supplied By Facility): CTDIvol = ( 14.44 ) mGy, DLP = ( 546.91 ) mGycm TECHNIQUE: The examination was performed with the intravenous administration of IV 100mL Isovue-370. Post-processing of the angiographic images was performed, with multiplanar reformation and 3D reconstruction. Individualized dose optimization techniques were used for this CT. COMPARISON: Comparison is made with prior chest radiograph done earlier today. FINDINGS: Normal enhancement of the main pulmonary artery and right and left pulmonary arteries. Normal enhancement of the bilateral peripheral pulmonary arteries. There is no demonstrated pulmonary embolism. There is atherosclerotic calcification of the aortic arch with tortuosity. There is no demonstrated aortic dissection. There are calcifications of the coronary arteries. A dual-chamber pacemaker is seen. Normal mediastinum. Normal hilar regions. Normal visualized trachea and bronchi. Bilateral pleural effusions with bibasilar dependent atelectasis. I suspect superimposed scarring. Increased interstitial markings suggestive of a mild degree of CHF. Normal chest wall structures. There are degenerative changes of thoracic spine. There is enlargement of the retroperitoneal lymph nodes. Multiple hypodense nodules are seen scattered throughout the liver suggestive of hepatic cysts. Findings suggestive of a left parapelvic renal cysts. CT/CTA Chest W/WO Contrast IMPRESSION: No evidence of bone embolism. Small bilateral pleural effusions with bibasilar atelectasis with superimposed scarring. Mild degree of increased interstitial markings suggestive of CHF. Multiple hepatic cysts. Enlarged retroperitoneal lymph nodes. Electronically Signed: Gerson Watkins MD at 15:19 EDT ,
[2023-08-07 14:33] LABS: BNP,B-Type NATRIURETIC PEPTIDE 4227.8 pg/mL (0-100)
[2023-08-07] MEDS: Nitroglycerin Oint 1 INCH PACKET TD (14:33)
--- NOTE | 2023-08-07 15:19 | ED.RN ---
pt returned from radiology and pulse ox was 79% on room air. pt placed on oxygen 2lnc and currently pulse ox 98%.
--- NOTE | 2023-08-07 15:48 | HP.PCM.HOS_ITS ---
[facility] - General General Date of Admission: 08/07/23 Date of Service: 08/07/23 Chief Complaint: shortness of breath. HPI Narrative BIGG LONG, is a 83 M who presents with shortness of breath. He states it began 2 weeks ago but the patient's daughter, is at bedside, stated that happened yesterday. Patient presented to the emergency room and his oxygen was okay but when he would move around in bed, dropped down to the 70s. Patient was subsequent placed on oxygen. Denies any fever or chills. Denies any lower extremity edema. Patient had been on furosemide but had been stopped at some point by his primary care doctor. Reasoning for the discontinuation is unknown to the patient. Patient had a elevated BNP of 4000, D-dimer was elevated at 1.43. CTA of the chest showed bilateral pleural effusions and increased interstitial markings consistent with CHF. Patient did receive IV furosemide in the emergency room. [facility] Medical History Back pain due to injury CKD (chronic kidney disease), stage III CLL (chronic lymphocytic leukemia) Essential hypertension HFrEF (heart failure with reduced ejection fraction) High cholesterol Iron deficiency anemia LBBB (left bundle branch block) Non-ischemic cardiomyopathy Orthostatic hypotension Pacemaker Peripheral neuropathy Prostate cancer Restless leg syndrome Subdural hematoma Ventricular tachycardia Home Medications cholecalciferol (vitamin D3) 25 mcg (1,000 unit) capsule (Vitamin D3) 50 mcg PO DAILY 08/09/16 [History Last Taken 03/31/23] carvedilol 25 mg tablet 25 mg PO BID 08/24/16 [History Last Taken 03/04/23] glucosamine 750 mh-[id number]-nhi no1 644 mg-C 30 mg-gilson 1 mg tablet (Osteo Bi-Flex Triple Strength) 1 ea PO DAILY 08/24/16 [History Last Taken 03/31/23] sacubitril 49 mg-valsartan 51 mg tablet (Entresto) 1 tab PO BID 08/24/22 [History Last Taken 03/31/23] zinc acetate 50 mg (zinc) capsule 50 mg PO DAILY 08/24/22 [History Last Taken 03/31/23] atorvastatin 10 mg tablet 10 mg PO DAILY 03/04/23 [History Last Taken 03/30/23] tamsulosin 0.4 mg capsule 0.4 mg PO DAILY 30 days #30 caps 03/06/23 [Rx Last T aken 03/31/23] ondansetron 4 mg disintegrating tablet 4 mg PO Q6H PRN nausea and vomiting #10 tabs 03/15/23 [Rx Last Taken Unknown] polysaccharide iron complex 150 mg iron capsule (Ferrex) 150 mg PO DAILY #30 caps 03/20/23 [Rx Last Taken 03/31/23] nortriptyline 50 mg capsule 50 mg PO BID neuropathy 03/31/23 [History Last Taken 03/31/23] multivitamin (Daily Multi-Vitamin tablet) 1 tab PO DAILY 08/07/23 [History Last Taken Unknown] potassium chloride 10 mEq capsule,extended release 10 meq PO DAILY 08/07/23 [History Last Taken Unknown] Allergy/AdvReac Type Severity Reaction Status Date / Time lisinopril AdvReac Unknown cough Verified 08/07/23 12:30 Family History Mother CVA (cerebral vascular accident) Hypertension Diabetes Father Ischemic heart disease Diabetes Surgical History Cardiac 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 No fever or chills. All review of systems were negative except as mentioned above in the history of present illness and the other review of systems. Vital Signs Vital Signs Vital Signs: 08/07/23 12:30 08/07/23 12:30 08/07/23 12:33 Temperature 36.0 C L 36.5 C L Temperature Source Temporal Oral Pulse Rate 95 93 95 Respiratory Rate 22 H 22 H 23 H Respiratory Effort Respiratory Depth Respiratory Pattern Blood Pressure 171/94 H 171/94 H 179/94 H Blood Pressure Mean 119 119 122 Pulse Ox 93 94 91 Oxygen Delivery Method Room Air Room Air Room Air 08/07/23 12:41 08/07/23 13:18 08/07/23 13:23 Temperature Temperature Source Pulse Rate 84 Respiratory Rate 22 H Respiratory Effort Normal Non-Labored Respiratory Depth Normal Respiratory Pattern Normal Tachypnea Blood Pressure Blood Pressure Mean Pulse Ox Oxygen Delivery Method Room Air Room Air 08/07/23 13:33 08/07/23 14:00 08/07/23 15:05 Temperature 36.6 C 36.6 C Temperature Source Oral Oral Pulse Rate 82 83 Respiratory Rate 23 H 17 24 H Respiratory Effort Respiratory Depth Respiratory Pattern Blood Pressure 157/87 H 161/85 H Blood Pressure Mean 110 108 Pulse Ox 94 92 79 Oxygen Delivery Method Room Air Room Air 08/07/23 15:40 Temperature 36.7 C Temperature Source Pulse Rate 81 Respiratory Rate 18 Respiratory Effort Respiratory Depth Respiratory Pattern Blood Pressure 159/93 H Blood Pressure Mean 115 Pulse Ox 98 Oxygen Delivery Method Weight Weight: 80.739 kg Body Mass Index (BMI) 25.5 Physical Exam Const alert and no apparent distress General Appearance: cooperative HEENT normocephalic and head/scalp atraumatic Eyes Eyes Narrative: No icterus Neck no lymphadenopathy Neck Narrative: No thyromegaly. Patient has loose skin on his I appreciate any JVD. Resp Resp Narrative: Bibasilar wheezes. Dullness percussion in the bases bilaterally. Cardio regular rate, regular rhythm, S1 normal heart sound and S2 normal heart sound GI normal to inspection, nondistended, normoactive bowel sounds, soft to palpation, non-tender and non-distended Extremity Extremity Narrative: Trace lower extremity edema. Skin Skin Narrative: No rashes or lesions. Neuro oriented x3 and moves all extremities Sensorium / Orientation: awake and alert Psych affect normal Results Lab / Micro Data Attestation: I reviewed the patient's lab results. 08/07/23 13:37 08/07/23 13:37 Labs: Laboratory Results - last 24 hr 08/07/23 13:37: WBC 55.2 H*, RBC 3.50 L, Hgb 9.2 L, Hct 30.7 L, MCV 87.7, MCH 26.3 L, MCHC 30.0 L, RDW Std Deviation 57.8 H, RDW Coeff of Willie 18.3 H, Plt Count 236, MPV 10.4, Immature Gran % (Auto) 0.400, Neut % (Auto) 11.0 L, Lymph % (Auto) 82.7 H, [place] % (Auto) 5.2, Eos % (Auto) 0.4, Baso % (Auto) 0.3, Absolute Neuts (auto) 6.1, Absolute Lymphs (auto) 45.68 H, Nucleated RBC % 0, Differential Comment SCANNED, Diff Path Review May foll, Smudge Cells 2+, D- Dimer Quant (PE/DVT) 1.43 H*, Sodium 143, Potassium 4.5, Chloride 110 H, Carbon Dioxide 25.0, Anion Gap 8, BUN 44 H, Creatinine 1.91 H, Estim Creat Clear Calc 29.20, Est GFR (MDRD) Af Amer 43 L, Est GFR (MDRD) Non-Af 36 L, BUN/Creatinine Ratio 23.0 H, Glucose 121 H, Lactic Acid 0.9, Calcium 9.1, Troponin I High Sens 34, B-Natriuretic Peptide 4227.8 H Micro: Microbiology 08/07/23 13:20 Mucosa - Nose SARS-CoV-2, Influenza & RSV (PCR) - Final EKG Initial EKG: EKG Rhythm Intrepretation: Ventricular Paced Imaging Radiology Impression Chest X-Ray 08/07/23 13:30 IMPRESSION: Mild cardiomegaly and the vascular congestion with CHF. Blunting of both costophrenic angles. Electronically Signed: Gerson Watkins MD at 13:48 EDT , Chest CTA 08/07/23 14:28 IMPRESSION: No evidence of bone embolism. Small bilateral pleural effusions with bibasilar atelectasis with superimposed scarring. Mild degree of increased interstitial markings suggestive of CHF. Multiple hepatic cysts. Enlarged retroperitoneal lymph nodes. Electronically Signed: Gerson Watkins MD at 15:19 EDT , Assessment & Plan Assessment/Plan (1) Acute exacerbation of CHF (congestive heart failure): PLAN: Plan Acute heart failure with reduced ejection fraction * EF 30% from 2 echocardiogram from March 2023. * Appears that the patient's weight is gone up about 3 to 4 kg since March * Continue with IV furosemide. Continue with sacubitril/valsartan. Continue with carvedilol * Caution with kidney function. Chronic kidney disease stage IIIb * Creatinine seems to be better than it was back in April where his creatinine was 2.4 at that time. It is 1.91 today. I suspect his worsening kidney function was why his furosemide was discontinued previously. * Caution with the IV furosemide but patient also had contrast with a CT angiogram. Chronic complicating medical conditions: * CLL:Following with Dr. Bush, initially diagnosed in 2003 * Chronic normocytic anemia: Stable * Recent nephrolithiasis with BL hydronephrosis secondary to acute staphylococcal complicated urinary tract infection with acute urinary retention: Required transient Hood placement, continued on Flomax, status post cystoscopy with laser intervention as well as follow-up TURP discharged on ciprofloxacin. Follow up w * Hypertension: Continue home regimen including Entresto, Coreg * Hyperlipidemia: We will continue patient on statin * Prostate cancer: Follows with Dr. Bush and urology, diagnosed stage IIa prostate cancer in 2016 status post radiation therapy, received LHRH agonist not currently on any treatment, status post recent TURP as noted. * Orthostatic hypotension: Noted historically, encourage cautious positional changes especially given diuresis as noted above, not currently on any midodrine, closely monitor, PT/OT/case management consulted for discharge planning. VTE prophylaxis with enoxaparin CODE STATUS: Addressed with the patient and his family at bedside. Patient was to be full code. Charges/Coding Visit Charges Inpatient E&M: 93649 Init Hosp L3
--- NOTE | 2023-08-07 16:14 | ECHOD_ITS ---
Reason For Study: CHF Procedure This was a 2D Doppler, Color Flow transthoracic echocardiogram. Exam performed portable in patient room. Left Ventricle Normal LV size. Moderate concentric left ventricular hypertrophy. Moderately severe global left ventricular systolic dysfunction. The estimated ejection fraction is 30 %. Stage 2 diastolic dysfunction. Right Ventricle ICD or pacer leads identified within the right ventricle. Normal RV size. Normal systolic function. Atria The left atrium is moderately enlarged. ICD or pacer leads identified within the right atrium. The right atrium is mildly enlarged. Mitral Valve Mild mitral annular calcification. Moderately severe (3+) eccentric mitral valve insufficiency. Tricuspid Valve Normal tricuspid valve. Pulmonary artery systolic pressure is 57 mmHg. Mild (1+) tricuspid valve insufficiency. Aortic Valve Trisinus/trileaflet aortic valve. Mild focal aortic valve thickening. Mild focal aortic valve calcification. Mild (1+) aortic valve insufficiency. Pulmonic Valve Normal pulmonic valve. Trivial pulmonic valve insufficiency. Great Vessels Normal aortic root. Pericardium/Pleural No pericardial effusion. Left pleural effusion. MMode/2D Measurements & Calculations LVIDd: 5.5 cm IVSd: 1.4 cm LVOT diam: 2.2 cm LVIDs: 3.9 cm LVPWd: 1.3 cm LVOT area: 3.7 cm2 RVDd: 3.8 cm FS: 29.3 % Ao root diam: 3.7 cm LAV(MOD-bp): 111.4 ml LVAd ap4: 35.7 cm2 LAV(MOD-bp) Indexed: 56.6 ml/m2 LVLd ap4: 8.8 cm LAV(MOD-sp2): 102.8 ml EDV(MOD-sp4): 125.6 ml LAV(MOD-sp4): 110.0 ml EDV(sp4-el): 122.7 ml LVAs ap4: 27.6 cm2 LVLs ap4: 8.3 cm ESV(MOD-sp4): 77.9 ml ESV(sp4-el): 78.6 ml EF(MOD-sp4): 38.0 % EF(sp4-el): 36.0 % LVAd ap2: 42.0 cm2 SV(MOD-sp4): 47.7 ml SV(MOD-sp2): 48.8 ml LVLd ap2: 9.4 cm EDV(MOD-sp2): 162.8 ml EDV(sp2-el): 159.1 ml LVAs ap2: 35.1 cm2 LVLs ap2: 9.0 cm ESV(MOD-sp2): 114.0 ml ESV(sp2-el): 116.3 ml EF(MOD-sp2): 30.0 % SV(sp4-el): 44.1 ml LA dimension(2D): 4.9 cm LA A4 area: 30.2 cm2 RA A4 area: 19.9 cm2 TAPSE: 2.3 cm Time Measurements MV dec time: 0.20 sec Doppler Measurements & Calculations MV E max brian: 82.8 cm/sec Lat Peak E' Brian: 4.9 cm/sec Med Peak E' Brian: 4.4 cm/sec MV A max brian: 76.8 cm/sec E/E' lat: 16.8 E/E' med: 18.9 MV E/A: 1.1 Ao V2 max: 154.1 cm/sec AI max brian: 460.5 cm/sec MV dec slope: 408.5 cm/sec2 Ao max P.5 mmHg AI max P.8 mmHg Ao V2 mean: 106.8 cm/sec Ao mean P.3 mmHg AI dec slope: 370.8 cm/sec2 Ao V2 VTI: 31.7 cm AI P1/2t: 363.8 msec AV (velocity ratio): 0.73 RADHA(I,D): 2.7 cm2 RADHA(V,D): 2.6 cm2 LV V1 max: 109.5 cm/sec SV(LVOT): 85.9 ml PA V2 max: 93.4 cm/sec LV V1 max P.8 mmHg PA max PG (full): 2.7 mmHg LV V1 mean P.3 mmHg LV V1 mean: 67.4 cm/sec LV V1 VTI: 23.1 cm TR max brian: 349.3 cm/sec TR max P.8 mmHg ECHO/Echo Complete Interpretation Summary The estimated ejection fraction is 30 %. Stage 2 diastolic dysfunction. Moderate concentric left ventricular hypertrophy. Moderately severe (3+) eccentric mitral valve insufficiency. Mild (1+) tricuspid valve insufficiency. Pulmonary artery systolic pressure is 57 mmHg. Mild (1+) aortic valve insufficiency. No significant change from prior echocardiogram Ordering Physician: Yovani Soto Referring Physician: German Gu Performed By: Madison Romero RDCS
[2023-08-07] MEDS: Carvedilol 25 MG Tablet PO (17:17)
[2023-08-07] MEDS: Tamsulosin HCl 0.4 MG Capsule PO (17:17)
[2023-08-07] MEDS: 0.9% Saline Lock 10 ML Syringe IV (17:19)
[2023-08-07] MEDS: Nortriptyline 25 MG Capsule 50 MG PO (21:05)
[2023-08-07] MEDS: Atorvastatin Calcium 10 MG Tablet PO (21:05)
[2023-08-07] MEDS: SACUBITRIL/VALSARTAN 49-51 MG TABLET 1 EACH PO (21:05)
[2023-08-08] VITALS (9 sets, daily range): BP systolic 124–169; BP diastolic 62–96; PULSE 69–76; RESP 16–18; TEMP 36.3–36.7; O2SAT 89–96; BMI 24.6
[2023-08-08] MEDS: hydrALAZINE 20 MG/ML Vial 10 MG IV (05:14)
[2023-08-08] MEDS: 0.9% Saline Lock 10 ML Syringe IV ×2 (05:14→17:44)
[2023-08-08 07:26] LABS: Absolute Lymphocyte Count 43.22 X10^3/uL (0.83-4.51); Absolute Neutrophil Count 5.6 X10^3/uL (2.0-7.7); Basophil# 0.21 X10^3/uL; Basophil% 0.4 % (0-1); Eosinophil# 0.35 X10^3/uL; Eosinophils% 0.7 % (0-5); Hematocrit 31.5 % (40-54); Hemoglobin 9.7 g/dL (13.0-16.5); Lymphocyte # 43.22 X10^3/ul (0.83-4.51); Lymphocyte % 84.2 % (19-41); Mean Corp Hgb Conc 30.8 g/dL (32-36); Mean Corpuscular Volume 87.7 fL (80-94); Mean Platelet Vol. 10.5 fl (6.2-12.0); Monocyte# 1.75 X10^3/uL; Monocyte% 3.4 % (0-10); NRBC Flagged by Analyzer 0 % (0-5); Neutrophil % 10.9 % (47-70); POSITIVE COUNT YES; POSITIVE DIFFERENTIAL YES; POSITIVE MORPHOLOGY YES; Platelet Count 236 K/mm3 (150-450); RBC Distribution Width SD 56.9 fl (35.1-43.9); Red Blood Count 3.59 M/mm3 (4.6-6.2); White Blood Count 51.3 K/mm3 (4.4-11.0)
[2023-08-08 07:48] LABS: Anion Gap 6 (5-15); BUN 44 mg/dL (7-18); BUN/Creat Ratio 22.7 RATIO (10-20); Chloride 108 mmol/L (98-107); Creatinine, Serum 1.94 mg/dL (0.70-1.30); EST Glomerular Filtration Rate 35 mL/min (>60); Est Glom Filt Rate - Afr Amer 43 mL/min (>60); Estimated Creatinine Clearance 28.74 ml/min; Glucose 128 mg/dL (74-106); Potassium 3.8 mmol/L (3.5-5.1); Sodium Level 141 mmol/L (136-145)
[2023-08-08 08:06] LABS: Anisocytosis 2+; Smudge Cells 2+
[2023-08-08] MEDS: Iron Polysaccharide Complex 150 MG CAPSULE PO (10:35)
[2023-08-08] MEDS: Furosemide 40 MG/4 ML Vial IV (10:35)
[2023-08-08] MEDS: Potassium Chloride Oral Tablet 10 MEQ PO (10:35)
[2023-08-08] MEDS: Multivitamins,Therapeutic Tablet 1 TABLET PO (10:36)
[2023-08-08] MEDS: Nortriptyline 25 MG Capsule 50 MG PO ×2 (10:36→22:27)
[2023-08-08] MEDS: Zinc Sulfate 50 mg zinc (220 mg) ORAL capsule PO (10:36)
[2023-08-08] MEDS: Carvedilol 25 MG Tablet PO ×2 (10:36→17:44)
[2023-08-08] MEDS: SACUBITRIL/VALSARTAN 49-51 MG TABLET 1 EACH PO ×2 (10:36→22:27)
[2023-08-08] MEDS: Cholecalciferol (VIT D3) 25 MCG TABLET (1,000 UNITS) 50 MCG PO (10:36)
[2023-08-08] MEDS: Enoxaparin 30 MG/0.3 ML Syringe SC (10:52)
--- NOTE | 2023-08-08 11:30 | CASEMGMT ---
RAMONITA MARTINEZ Face to Face with patient for initial transition planning/care coordination assessment. RAMONITA MARTINEZ introduced self and role at [facility]. Patient sitting in chair, alert and oriented, daughter at bedside. Patient willing to participate in assessment and is able to answer all questions appropriately. Care providers, pharmacy, and demographics verified. PCP: Riccardo MACHINE PACKAGER Specialists: Population Health Manager, [facility]; Kenneth Cardenas Pharmacy: [facility] Insurance: [employer] [facility] Prescription Benefit: yes Living Will/HPOA: Daughter Renuka Vo LNOK: , daughter, sons Living Arrangements: Patient lives with and son in a 2 story home. Patient is independent at home and able to ambulate stairs. Son that lives with patient has health issues according to daughter and not much assistance at home. Patient's recent had surgery and is requiring more help than what patient can provide. Transportation: self, son DME/HHC: Patient has shower chair, raised toilet, cane, walker, grab bars at home. No previous HHC or SNF. Patient wishes to discharge home, will monitor progress with therapy for HHC. RAMONITA MARTINEZ discussed CCN, private aides, and HHC for patient's and process to setup. Daughter appreciative of conversation. Patient and daughter state they have no further needs or concerns at this time. CM to follow for discharge planning needs that may arise. Disposition Plan: Patient to discharge home with family support and follow-up plans in place. Will monitor for HHC. Verito MIRANDA, RN, CM
[2023-08-08] MEDS: Ondansetron 4 MG/2 ML Vial IV (11:34)
--- NOTE | 2023-08-08 15:34 | CASEMGMT ---
RN JUAN reviewed progress with therapy, no therapy recommended. RN JUAN provided daughter with Private Duty List, C list, and CCN resources. Daughter voiced appreciation. Referral sent to CCN. CM will continue to follow this patient and plan for a safe discharge.
--- NOTE | 2023-08-08 15:42 | PCM.PN.HOSP ---
Reason for Visit Reason for Visit: Shortness of breath Subjective Subjective Mr. Ann is an 83-year-old white male who presented to emergency department at [facility] on 08/07/2023 due to shortness of breath. He reported that it started about 2 weeks ago but his daughter was at the bedside and feels that it happened the day prior to presentation. Upon presentation the emergency department his oxygenation was stable on room air however when he would move around in bed he dropped to the 70s. He was subsequently placed on oxygen at that time. He denied any fever chills or lower extremity edema. He had previously been on diuretics but had been stopped at some point by his primary care today after for uncertain reasons. He does have a known history of cardiomyopathy with a previous echocardiogram done in 2022 that demonstrated an EF of 30% with moderately dilated LV, mild concentric LVH, indeterminate diastolic dysfunction, moderate left atrial lodgment, severe mitral valve insufficiency, mild aortic and pulmonic valve insufficiency. Vital signs on presentation showed a temperature of 36 ?C, heart rate was 95, blood pressure was initially 171/94 with a pulse ox of 93% on room air and a respiratory rate of 22. His CBC shows a markedly elevated white count however this is chronic and stable, he is a chronic stable anemia with a normal platelet count and no left shift. CBC does show a significant lymphocytosis, which again is chronic and stable. His chemistry panel showed chronic stable serum creatinine elevation at 1.91 with a slightly elevated glucose at 121. His troponin was 34 and his BNP was 4227.8 which is markedly elevated when compared to previous numbers at which time he was admitted. His daughter does not think he weighs himself, watches his diet or watches his fluid intake. He was admitted to the PCU and started on IV Lasix and a repeat echocardiogram was ordered. Today the patient states that he is feeling better overall and his breathing is improved. Objective Data Objective Data Vital Signs: Vital Signs Temp Pulse Resp BP Pulse Ox O2 Del Method O2 Flow Rate 97.3 F L 76 16 150/96 H 91 Room Air 2 08/08/23 10:33 08/08/23 10:33 08/08/23 10:33 08/08/23 10:33 08/08/23 13:23 08/08/23 13:23 08/08/23 13:23 Oxygen Flow Rate (L/min) 2 Oxygen Delivery Method Room Air Weight: 78 kg Body Mass Index (BMI) 24.6 Intake & Output: Intake and Output for Last 24 Hours 08/06/23 08/07/23 08/08/23 23:59 23:59 23:59 Intake Total 520 / 520 Output Total 200 / 200 Balance -200 / -200 520 / 520 Lab / Micro Data 08/08/23 06:50 08/08/23 06:50 Labs: Laboratory Results - last 24 hr 08/08/23 06:50: WBC 51.3 H*, RBC 3.59 L, Hgb 9.7 L, Hct 31.5 L, MCV 87.7, MCH 27.0, MCHC 30.8 L, RDW Std Deviation 56.9 H, RDW Coeff of Willie 18.0 H, Plt Count 236, MPV 10.5, Immature Gran % (Auto) 0.400, Neut % (Auto) 10.9 L, Lymph % (Auto) 84.2 H, [place] % (Auto) 3.4, Eos % (Auto) 0.7, Baso % (Auto) 0.4, Absolute Neuts (auto) 5.6, Absolute Lymphs (auto) 43.22 H, Nucleated RBC % 0, Diff Path Review May foll, Smudge Cells 2+, Anisocytosis 2+, Sodium 141, Potassium 3.8, Chloride 108 H, Carbon Dioxide 27.0, Anion Gap 6, BUN 44 H, Creatinine 1.94 H, Estim Creat Clear Calc 28.74, Est GFR (MDRD) Af Amer 43 L, Est GFR (MDRD) Non-Af 35 L, BUN/Creatinine Ratio 22.7 H, Glucose 128 H, Calcium 9.0 Micro: Microbiology 08/07/23 13:20 Mucosa - Nose SARS-CoV-2, Influenza & RSV (PCR) - Final Radiography Diagnostic Testing: Radiology Impression Echocardiogram 08/07/23 16:14 Interpretation Summary The estimated ejection fraction is 30 %. Stage 2 diastolic dysfunction. Moderate concentric left ventricular hypertrophy. Moderately severe (3+) eccentric mitral valve insufficiency. Mild (1+) tricuspid valve insufficiency. Pulmonary artery systolic pressure is 57 mmHg. Mild (1+) aortic valve insufficiency. No significant change from prior echocardiogram Ordering Physician: Yovani Soto Referring Physician: German Gu Performed By: Madison Romero RDCS Physical Exam Const alert, oriented x3, no apparent distress, average body habitus and well nourished; Negative for healthy appearing Constitutional Narrative: Elderly, white male, lying in bed sleeping upon my arrival however his daughter was at the bedside, he awakened quite easily HEENT head/scalp atraumatic and moist oral mucous membranes HEENT Narrative: Mallampati 2, no thrush Head and Scalp: normocephalic Eyes PERRL, EOMs intact bilaterally and conjunctivae normal Eyes Narrative: No scleral icterus Neck no lymphadenopathy, supple and No no JVD Neck Narrative: Positive JVD, trachea midline Resp normal respiratory effort, no retractions, no use of accessory muscles and No clear to auscultation bilaterally Resp Narrative: Crackles at bases bilaterally, no signs of respiratory distress at rest and patient is on room air Auscultation: crackles; Negative for rhonchi or wheezes Cardio regular rate, regular rhythm, S1 normal heart sound, S2 normal heart sound, no murmurs, no rub, no gallops and no clicks GI normal to inspection, nondistended, normoactive bowel sounds, soft to palpation and non-tender Extremity Extremity Narrative: Trace bilateral lower extremity edema, no cyanosis or clubbing Skin no wounds, skin turgor normal, no jaundice, no petechiae and no mottling Skin Narrative: Scattered ecchymosis, thin skin Neuro oriented x3, moves all extremities and no focal motor deficits Speech: speech normal Psych affect normal Psych Narrative: Very pleasant, eye contact is good Assessment & Plan Assessment/Plan (1) Hypoxemia: PLAN: Plan Hypoxia and shortness of breath secondary to acute exacerbation of heart failure with reduced ejection fraction -EF at baseline is 30% and repeat echo done today is stable when compared to previous echo from 2022 -This is a nonischemic cardiomyopathy -Continue home goal-directed therapy with carvedilol and Entresto -Will transition from intermittent IV push diuretics to Lasix drip -BNP on admission was greater than 4000 -Salt restricted diet to 2 g and fluid restrict to 1500 cc daily -Check daily weights -Accurate I's and O's -Will ensure patient has cardiology follow-up after discharge CKD stage IIIb -Baseline serum creatinine appears to run between 1.9 and 2.4 -Stable with diuretics at this point -Patient did have CT angiogram due to elevated D-dimer on presentation so we will need to monitor closely especially with diuretics 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 -Management as above -Chronic left bundle branch on EKG -ICD pacer in place HTN/HPL -Continue Entresto -Continue Coreg -Continue home statin History of prostate cancer -Follows as an outpatient with oncology and urology -Diagnosis stage IIIa in 2016 History of orthostatic hypotension -No signs of any current issues Vitamin D deficiency -Continue home supplemental vitamin D History of subdural hematoma -No acute issues DVT prophylaxis -Heparin 3 times daily CODE STATUS -Further discussion today with patient and daughter and they have elected for DNR CCA with no intubation--> order changed to address this Charges/Coding Visit Charges Inpatient E&M: 77737 [facility] L3
[2023-08-08 16:28] LABS: Pathologist Review Reviewed
[2023-08-08 16:31] LABS: Pathologist Review Reviewed
[2023-08-08 17:05] LABS: Anion Gap 6 (5-15); BUN 45 mg/dL (7-18); BUN/Creat Ratio 22.5 RATIO (10-20); Calcium,Total 8.9 mg/dL (8.5-10.1); Chloride 106 mmol/L (98-107); EST Glomerular Filtration Rate 34 mL/min (>60); Est Glom Filt Rate - Afr Amer 41 mL/min (>60); Estimated Creatinine Clearance 27.88 ml/min; Glucose 110 mg/dL (74-106); Potassium 3.6 mmol/L (3.5-5.1); Sodium Level 141 mmol/L (136-145)
[2023-08-08] MEDS: Furosemide 500 MG in Empty Viaflex 50 mL 1 EACH CONT INF (17:44)
[2023-08-08] MEDS: Tamsulosin HCl 0.4 MG Capsule PO (17:44)
[2023-08-08] MEDS: Atorvastatin Calcium 10 MG Tablet PO (22:27)
[2023-08-08] MEDS: Heparin Injection (Vial) 5,000 UNIT/ML VIAL 5000 UNIT SC (22:32)
[2023-08-09] VITALS (7 sets, daily range): BP systolic 99–161; BP diastolic 59–73; PULSE 63–79; RESP 16; TEMP 36.3–36.9; O2SAT 92–100; BMI 24.3
[2023-08-09 00:23] LABS: Anion Gap 6 (5-15); BUN 50 mg/dL (7-18); BUN/Creat Ratio 24.4 RATIO (10-20); Calcium,Total 8.6 mg/dL (8.5-10.1); Chloride 106 mmol/L (98-107); Creatinine, Serum 2.05 mg/dL (0.70-1.30); EST Glomerular Filtration Rate 33 mL/min (>60); Est Glom Filt Rate - Afr Amer 40 mL/min (>60); Glucose 124 mg/dL (74-106); Potassium 3.5 mmol/L (3.5-5.1); Sodium Level 143 mmol/L (136-145)
[2023-08-09] MEDS: Heparin Injection (Vial) 5,000 UNIT/ML VIAL 5000 UNIT SC ×3 (05:28→21:27)
[2023-08-09 06:20] LABS: Absolute Lymphocyte Count 45.76 X10^3/uL (0.83-4.51); Absolute Neutrophil Count 4.5 X10^3/uL (2.0-7.7); Basophil# 0.14 X10^3/uL; Basophil% 0.3 % (0-1); Eosinophil# 0.42 X10^3/uL; Eosinophils% 0.8 % (0-5); Hematocrit 33.1 % (40-54); Hemoglobin 9.9 g/dL (13.0-16.5); Lymphocyte # 45.76 X10^3/ul (0.83-4.51); Lymphocyte % 86.6 % (19-41); Mean Corp Hgb Conc 29.9 g/dL (32-36); Mean Corpuscular Hgb 26.2 pg (27.0-32.0); Mean Corpuscular Volume 87.6 fL (80-94); Mean Platelet Vol. 9.7 fl (6.2-12.0); Monocyte# 1.85 X10^3/uL; Monocyte% 3.5 % (0-10); NRBC Flagged by Analyzer 0 % (0-5); Neutrophil # 4.54 X10^3/uL (2.7-7.7); Neutrophil % 8.5 % (47-70); POSITIVE COUNT YES; POSITIVE DIFFERENTIAL YES; POSITIVE MORPHOLOGY YES; Platelet Count 244 K/mm3 (150-450); RBC Distribution Width SD 57.1 fl (35.1-43.9); Red Blood Count 3.78 M/mm3 (4.6-6.2); White Blood Count 52.9 K/mm3 (4.4-11.0)
[2023-08-09 06:36] LABS: Anion Gap 6 (5-15); BUN 49 mg/dL (7-18); Calcium,Total 8.8 mg/dL (8.5-10.1); Chloride 104 mmol/L (98-107); Creatinine, Serum 2.13 mg/dL (0.70-1.30); EST Glomerular Filtration Rate 32 mL/min (>60); Est Glom Filt Rate - Afr Amer 38 mL/min (>60); Estimated Creatinine Clearance 26.18 ml/min; Glucose 118 mg/dL (74-106); Magnesium 2.1 mg/dL (1.6-2.6); Potassium 3.7 mmol/L (3.5-5.1); Sodium Level 142 mmol/L (136-145)
[2023-08-09 06:41] LABS: Phosphorus 4.8 mg/dL (2.5-4.9)
[2023-08-09 07:06] LABS: Differential Indicated SCAN CRITERIA MET
[2023-08-09 07:12] LABS: Differential Comment SCANNED
[2023-08-09] MEDS: Carvedilol 25 MG Tablet PO ×2 (08:43→17:19)
[2023-08-09] MEDS: Zinc Sulfate 50 mg zinc (220 mg) ORAL capsule PO (08:43)
[2023-08-09] MEDS: Iron Polysaccharide Complex 150 MG CAPSULE PO (08:43)
[2023-08-09] MEDS: Nortriptyline 25 MG Capsule 50 MG PO (08:44)
[2023-08-09] MEDS: Cholecalciferol (VIT D3) 25 MCG TABLET (1,000 UNITS) 50 MCG PO (08:44)
[2023-08-09] MEDS: Potassium Chloride Oral Tablet 10 MEQ PO (08:44)
[2023-08-09] MEDS: SACUBITRIL/VALSARTAN 49-51 MG TABLET 1 EACH PO ×2 (08:44→21:27)
[2023-08-09] MEDS: Multivitamins,Therapeutic Tablet 1 TABLET PO (08:44)
--- NOTE | 2023-08-09 13:52 | PCM.PN.HOSP ---
Reason for Visit Reason for Visit: Shortness of breath Subjective Subjective Patient states he feels much better today. He he was able to move around the room and walk without any significant shortness of breath. Feels like his swelling is better. Has no complaints at this time. Family reports that he has had ongoing issues with dry mouth and we did review his medication list. He is on nortriptyline and I suspect this is probably causing significant dry mouth. I did discuss with them discontinuing this and starting him on some low-dose gabapentin at night for his neuropathy and they were in agreement. They also will start him on some Biotene. We did discuss that if he continues to feel well we will probably be able to discharge him in the next 24 hours. Objective Data Objective Data Vital Signs: Vital Signs Temp Pulse Resp BP Pulse Ox O2 Del Method O2 Flow Rate 97.6 F L 79 16 99/63 98 Nasal Cannula 2 08/09/23 08:41 08/09/23 08:41 08/09/23 08:41 08/09/23 10:21 08/09/23 08:41 08/09/23 09:00 08/09/23 09:00 Oxygen Flow Rate (L/min) 2 Oxygen Delivery Method Nasal Cannula Weight: 76.7 kg Body Mass Index (BMI) 24.3 Intake & Output: Intake and Output for Last 24 Hours 08/07/23 08/08/23 08/09/23 23:59 23:59 23:59 Intake Total 1400 / 1400 466.62 / 466.62 Output Total 200 / 200 450 / 450 Balance -200 / -200 1400 / 1400 16.62 / 16.62 Lab / Micro Data 08/09/23 06:05 08/09/23 06:05 Labs: Laboratory Results - last 24 hr 08/07/23 13:37: Diff Path Review Reviewed 08/08/23 06:50: Diff Path Review Reviewed 08/08/23 16:17: Sodium 141, Potassium 3.6, Chloride 106, Carbon Dioxide 29.0, Anion Gap 6, BUN 45 H, Creatinine 2.00 H, Estim Creat Clear Calc 27.88, Est GFR (MDRD) Af Amer 41 L, Est GFR (MDRD) Non-Af 34 L, BUN/Creatinine Ratio 22.5 H, Glucose 110 H, Calcium 8.9 08/08/23 23:55: Sodium 143, Potassium 3.5, Chloride 106, Carbon Dioxide 31.0, Anion Gap 6, BUN 50 H, Creatinine 2.05 H, Estim Creat Clear Calc 27.20, Est GFR (MDRD) Af Amer 40 L, Est GFR (MDRD) Non-Af 33 L, BUN/Creatinine Ratio 24.4 H, Glucose 124 H, Calcium 8.6 08/09/23 06:03: Phosphorus 4.8 08/09/23 06:05: WBC 52.9 H*, RBC 3.78 L, Hgb 9.9 L, Hct 33.1 L, MCV 87.6, MCH 26.2 L, MCHC 29.9 L, RDW Std Deviation 57.1 H, RDW Coeff of Willie 18.0 H, Plt Count 244, MPV 9.7, Immature Gran % (Auto) 0.300, Neut % (Auto) 8.5 L, Lymph % (Auto) 86.6 H, [place] % (Auto) 3.5, Eos % (Auto) 0.8, Baso % (Auto) 0.3, Absolute Neuts (auto) 4.5, Absolute Lymphs (auto) 45.76 H, Nucleated RBC % 0, Differential Comment SCANNED, Diff Path Review September, Sodium 142, Potassium 3.7, Chloride 104, Carbon Dioxide 32.0, Anion Gap 6, BUN 49 H, Creatinine 2.13 H, Estim Creat Clear Calc 26.18, Est GFR (MDRD) Af Amer 38 L, Est GFR (MDRD) Non-Af 32 L, BUN/Creatinine Ratio 23.0 H, Glucose 118 H, Calcium 8.8, Magnesium 2.1 Micro: Microbiology 08/07/23 13:37 Blood Culture (Wb) - Anticubital Left Blood Culture - Preliminary No growth in 48 hours. 08/07/23 13:20 Mucosa - Nose SARS-CoV-2, Influenza & RSV (PCR) - Final Radiography Diagnostic Testing: Radiology Impression Echocardiogram 08/07/23 16:14 Interpretation Summary The estimated ejection fraction is 30 %. Stage 2 diastolic dysfunction. Moderate concentric left ventricular hypertrophy. Moderately severe (3+) eccentric mitral valve insufficiency. Mild (1+) tricuspid valve insufficiency. Pulmonary artery systolic pressure is 57 mmHg. Mild (1+) aortic valve insufficiency. No significant change from prior echocardiogram Ordering Physician: Yovani Soto Referring Physician: German Gu Performed By: Madison Romero RDCS Physical Exam Const alert, oriented x3, no apparent distress, average body habitus and well nourished; Negative for healthy appearing Constitutional Narrative: Elderly, white male, sitting up in a chair at the bedside, appears comfortable, nontoxic, daughter and son are at the bedside General Appearance: cooperative HEENT normocephalic, head/scalp atraumatic and moist oral mucous membranes Resp normal respiratory effort, no retractions, no use of accessory muscles and clear to auscultation bilaterally Auscultation: Negative for crackles, rhonchi or wheezes Cardio regular rate, regular rhythm, S1 normal heart sound, S2 normal heart sound, no murmurs, no rub, no gallops and no clicks GI normal to inspection, nondistended, normoactive bowel sounds, soft to palpation and non-tender Extremity Extremity Narrative: Pitting edema has resolved, no cyanosis or clubbing Neuro oriented x3, moves all extremities and no focal motor deficits Speech: speech normal Psych affect normal Psych Narrative: Very pleasant, eye contact is good Assessment & Plan Assessment/Plan (1) Hypoxemia: PLAN: Plan Hypoxia and shortness of breath secondary to acute exacerbation of heart failure with reduced ejection fraction -EF at baseline is 30% and repeat echo done today is stable when compared to previous echo from 2022 -This is a nonischemic cardiomyopathy -Continue home goal-directed therapy with carvedilol and Entresto -Will discontinue Lasix drip and place him on IV push Lasix twice daily -BNP on admission was greater than 4000 -Salt restricted diet to 2 g and fluid restrict to 1500 cc daily -Continue daily weights--> patient is down about 2 kg for his hospital stay -Accurate I's and O's--> these appear inaccurate -Will ensure patient has cardiology follow-up after discharge -Patient and family would like him to follow-up here we will arrange for records from [facility] to be transported down to [place] -Will schedule follow-up for him at [place] cardiology CKD stage IIIb -Baseline serum creatinine appears to run between 1.9 and 2.4 -Serum creatinine is slowly trending up and is now up to 2.13 so we will stop Lasix drip and transition him to IV push Lasix -Patient did have CT angiogram due to elevated D-dimer on presentation so we will need to monitor closely especially with diuretics CLL -Continue outpatient follow-up with Dr. 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 -Management as above -Chronic left bundle branch on EKG -ICD pacer in place HTN/HPL -Continue Entresto -Continue Coreg -Continue home statin History of prostate cancer -Follows as an outpatient with oncology and urology -Diagnosis stage IIIa in 2016 History of orthostatic hypotension -No signs of any current issues History of neuropathy -Patient had been on nortriptyline for this -Patient has been having significant dry mouth -Will discontinue nortriptyline now and at the time of discharge -Hopefully this will change his severe dry mouth as he is drinking excessive amounts of water to combat this -Start gabapentin 200 mg nightly for his neuropathy Vitamin D deficiency -Continue home supplemental vitamin D History of subdural hematoma -No acute issues DVT prophylaxis -Heparin 3 times daily CODE STATUS -DNR CCA with no intubation per discussion yesterday with patient and daughter Charges/Coding Visit Charges Inpatient E&M: 54973 Subs Hosp L2
[2023-08-09 14:38] LABS: Pathologist Review Reviewed
[2023-08-09 16:17] LABS: Anion Gap 5 (5-15); BUN 52 mg/dL (7-18); BUN/Creat Ratio 23.7 RATIO (10-20); Calcium,Total 9.1 mg/dL (8.5-10.1); Chloride 105 mmol/L (98-107); Creatinine, Serum 2.19 mg/dL (0.70-1.30); EST Glomerular Filtration Rate 31 mL/min (>60); Est Glom Filt Rate - Afr Amer 37 mL/min (>60); Estimated Creatinine Clearance 25.46 ml/min; Glucose 93 mg/dL (74-106); Potassium 4.1 mmol/L (3.5-5.1); Sodium Level 144 mmol/L (136-145)
[2023-08-09] MEDS: Tamsulosin HCl 0.4 MG Capsule PO (17:19)
[2023-08-09] MEDS: Furosemide 40 MG/4 ML Vial IV (17:19)
[2023-08-09] MEDS: Atorvastatin Calcium 10 MG Tablet PO (21:27)
[2023-08-09] MEDS: 0.9% Saline Lock 10 ML Syringe IV (21:27)
[2023-08-09] MEDS: Gabapentin 100 MG Capsule 200 MG PO (21:27)
[2023-08-10] MEDS: Magnesium Sulfate 1 GM in Dextrose 5%-Water (100mL Bag) 100 ML IV (00:36)
[2023-08-10 02:51] VITALS: BP 168/76; PULSE 63; RESP 18; TEMP 36.4; O2SAT 94
[2023-08-10 04:15] VITALS: BMI 24.0
[2023-08-10 05:06] VITALS: BP 148/71
[2023-08-10] MEDS: Heparin Injection (Vial) 5,000 UNIT/ML VIAL 5000 UNIT SC (05:07)
[2023-08-10 06:47] LABS: Absolute Lymphocyte Count 47.53 X10^3/uL (0.83-4.51); Absolute Neutrophil Count 5.4 X10^3/uL (2.0-7.7); Basophil# 0.23 X10^3/uL; Basophil% 0.4 % (0-1); Eosinophils% 0.7 % (0-5); Hematocrit 34.4 % (40-54); Hemoglobin 10.5 g/dL (13.0-16.5); Lymphocyte # 47.53 X10^3/ul (0.83-4.51); Lymphocyte % 85.7 % (19-41); Mean Corp Hgb Conc 30.5 g/dL (32-36); Mean Corpuscular Hgb 26.6 pg (27.0-32.0); Mean Corpuscular Volume 87.3 fL (80-94); Mean Platelet Vol. 10.2 fl (6.2-12.0); Monocyte# 1.76 X10^3/uL; Monocyte% 3.2 % (0-10); NRBC Flagged by Analyzer 0 % (0-5); Neutrophil # 5.37 X10^3/uL (2.7-7.7); Neutrophil % 9.7 % (47-70); POSITIVE COUNT YES; POSITIVE DIFFERENTIAL YES; Platelet Count 253 K/mm3 (150-450); RBC Distribution Width CV 17.8 % (11.6-14.6); RBC Distribution Width SD 56.9 fl (35.1-43.9); Red Blood Count 3.94 M/mm3 (4.6-6.2)
[2023-08-10 06:51] LABS: Differential Indicated SCAN CRITERIA MET
[2023-08-10 06:53] LABS: White Blood Count 55.5 K/mm3 (4.4-11.0)
[2023-08-10 07:18] LABS: Anion Gap 5 (5-15); BUN 49 mg/dL (7-18); BUN/Creat Ratio 23.9 RATIO (10-20); Calcium,Total 9.1 mg/dL (8.5-10.1); Chloride 105 mmol/L (98-107); Creatinine, Serum 2.05 mg/dL (0.70-1.30); EST Glomerular Filtration Rate 33 mL/min (>60); Est Glom Filt Rate - Afr Amer 40 mL/min (>60); Glucose 118 mg/dL (74-106); Potassium 3.6 mmol/L (3.5-5.1); Sodium Level 144 mmol/L (136-145)
[2023-08-10 08:50] VITALS: BP 157/82; PULSE 74; RESP 16; TEMP 36; O2SAT 95
[2023-08-10] MEDS: Carvedilol 25 MG Tablet PO (08:52)
[2023-08-10] MEDS: SACUBITRIL/VALSARTAN 49-51 MG TABLET 1 EACH PO (08:53)
[2023-08-10] MEDS: Potassium Chloride Oral Tablet 10 MEQ PO (08:53)
[2023-08-10] MEDS: Iron Polysaccharide Complex 150 MG CAPSULE PO (08:53)
[2023-08-10] MEDS: Furosemide 40 MG Tablet PO (08:53)
[2023-08-10] MEDS: Multivitamins,Therapeutic Tablet 1 TABLET PO (08:53)
[2023-08-10] MEDS: Cholecalciferol (VIT D3) 25 MCG TABLET (1,000 UNITS) 50 MCG PO (08:53)
[2023-08-10] MEDS: Zinc Sulfate 50 mg zinc (220 mg) ORAL capsule PO (08:54)
[2023-08-10 11:07] LABS: Pathologist Review Reviewed
--- NOTE | 2023-08-10 11:22 | DS.PCM_ITS ---
Providers Date of Admission: 08/07/23 Date of Discharge: 08/10/23 Primary Care Physician: RENETTA Justice Reason For Visit: CHF EXAC Diagnosis Discharge Diagnosis (1) Hypoxemia: Status: Acute Code(s): R09.02 - Hypoxemia Medications at Discharge Home Medications cholecalciferol (vitamin D3) 25 mcg (1,000 unit) capsule (Vitamin D3) 50 mcg PO DAILY 08/09/16 carvedilol 25 mg tablet 25 mg PO BID 08/24/16 glucosamine 750 [id number] no1 644 mg-C 30 mg-gilson 1 mg tablet (Osteo Bi-Flex Triple Strength) 1 ea PO DAILY 08/24/16 sacubitril 49 mg-valsartan 51 mg tablet (Entresto) 1 tab PO BID 08/24/22 zinc acetate 50 mg (zinc) capsule 50 mg PO DAILY 08/24/22 atorvastatin 10 mg tablet 10 mg PO DAILY 03/04/23 tamsulosin 0.4 mg capsule 0.4 mg PO DAILY 30 days #30 caps 03/06/23 ondansetron 4 mg disintegrating tablet 4 mg PO Q6H PRN nausea and vomiting #10 tabs 03/15/23 polysaccharide iron complex 150 mg iron capsule (Ferrex) 150 mg PO DAILY #30 caps 03/20/23 multivitamin (Daily Multi-Vitamin tablet) 1 tab PO DAILY 08/07/23 potassium chloride 10 mEq capsule,extended release 10 meq PO DAILY 08/07/23 furosemide 40 mg tablet 40 mg PO DAILY #30 tabs 08/10/23 gabapentin 100 mg capsule 200 mg (2 x 100 mg) PO QHS #60 caps 08/10/23 Hospital Course Operations None Procedures 2-D Echocardiogram, EKG and - (Chest x-ray/CTA chest) Summary of Care Provided Minutes Spent on Discharge: 38 Hospital Course: Mr. Ann is an 83-year-old white male who presented to emergency department at [facility] on 08/07/2023 due to shortness of breath. He reported that it started about 2 weeks ago but his daughter was at the bedside and feels that it happened the day prior to presentation. Upon presentation the emergency department his oxygenation was stable on room air however when he would move around in bed he dropped to the 70s. He was subsequently placed on oxygen at that time. He denied any fever chills or lower extremity edema. He had previously been on diuretics but had been stopped at some point by his primary care today after for uncertain reasons. He does have a known history of cardi omyopathy with a previous echocardiogram done in 2022 that demonstrated an EF of 30% with moderately dilated LV, mild concentric LVH, indeterminate diastolic dysfunction, moderate left atrial lodgment, severe mitral valve insufficiency, mild aortic and pulmonic valve insufficiency. Vital signs on presentation showed a temperature of 36 ?C, heart rate was 95, blood pressure was initially 171/94 with a pulse ox of 93% on room air and a respiratory rate of 22. His CBC shows a markedly elevated white count however this is chronic and stable, he is a chronic stable anemia with a normal platelet count and no left shift. CBC does show a significant lymphocytosis, which again is chronic and stable. His chemistry panel showed chronic stable serum creatinine elevation at 1.91 with a slightly elevated glucose at 121. His troponin was 34 and his BNP was 4227.8 which is markedly elevated when compared to previous numbers at which time he was admitted. His daughter does not think he weighs himself, watches his diet or watches his fluid intake. He was admitted to the PCU and started on IV Lasix and a repeat echocardiogram was ordered. Echocardiogram done on 08/07/2023 demonstrated an EF of 30% with stage II diastolic dysfunction, moderate concentric LVH, moderately severe eccentric mitral valve insufficiency, mild tricuspid valve insufficiency, pulmonary artery systolic pressure of 57 mmHg and mild aortic valve insufficiency with no significant changes from previous echocardiogram done last year. He was transition from bolus Lasix to Lasix drip for about 24 hours. Had good diuresis. We then discontinued the Lasix drip and placed him on bolus IV Lasix for another 24 hours. We were able to wean him off oxygen and he had no further shortness of breath with exertion. He was complaining of significant dry mouth and this evidently had been a problem at home per discussion with both he and his son and daughter. He was noted to be on nortriptyline for neuropathy. I discussed the side effects of nortriptyline with the patient and his family and recommended discontinuing this. They were agreed so we did and placed him on gabapentin 200 mg at at bedtime for his neuropathy. He got good resolution of his symptoms with the gabapentin and he stated his mouth was not nearly as dry being off the nortriptyline. This was discontinued at the time of discharge. We did send him on on Lasix 40 mg oral daily. He is already on goal-directed therapy for his reduced ejection fraction with carvedilol as well as Entresto. We were able to obtain a follow-up appointment with Dr. Loc Thorne on September 04, 2023 at 1:30 PM as he desires to switch his cardiology care to [place] from [facility] as it is very taxing for he and his to drive that far for appointments. I did ask case management to start the process for procurement of previous records so that Dr. Thorne has them in his office when he follows up. Prescriptions for gabapentin and Lasix were sent to local pharmacy with 1 month refill. I have also asked him to follow-up with his [facility] physician within the next week and ask that a basic metabolic profile be done in the next 5 to 7 days to reassess his renal function and electrolytes on the Lasix. Patient was able to be discharged home in stable condition on room air on 08/10/2023. We talked extensively about daily weights and taking an extra dose of Lasix if he gains more than 2 to 3 pounds in a 24-hour period, sodium restriction as well as fluid restriction prior to discharge. Discharge diagnoses: Acute hypoxia-resolved Shortness of breath-resolved Acute on chronic heart failure with preserved ejection fraction CKD stage IIIb CLL Chronic normocytic anemia History of bilateral hydronephrosis secondary to acute staphylococcal complicated UTI with acute urinary retention History of nephrolithiasis History of nonischemic cardiomyopathy HTN HPL History of prostate cancer History of BPH with obstruction History of orthostatic hypotension History of neuropathy Vitamin D deficiency History of subdural hematoma Physical Exam Narrative Pt reports that he is feeling well today. Did have some nausea this morning a fter he ate the for breakfast egg but that has since resolved. Denies any shortness of breath and is anxious to go home if possible. Const alert, oriented x3, no apparent distress, average body habitus, no limitations and well nourished; Negative for healthy appearing Constitutional Narrative: Elderly, white male, sitting up in bed, appears comfortable, nontoxic General Appearance: cooperative, comfortable, well kempt and well developed Orientation / Consciousness: awake, oriented to person, oriented to place and oriented to time Exam Limitations: no limitations HEENT normocephalic, head/scalp atraumatic and moist oral mucous membranes HEENT Narrative: Mild to moderate hearing loss, Mallampati is 2-3, no thrush Eyes PERRL, EOMs intact bilaterally and conjunctivae normal Eyes Narrative: No scleral icterus Neck no lymphadenopathy, supple and no JVD Neck Narrative: trachea midline, no thyroid enlargement Resp normal respiratory effort, no retractions, no use of accessory muscles and clear to auscultation bilaterally Auscultation: Negative for crackles, rhonchi or wheezes Cardio regular rate, regular rhythm, S1 normal heart sound, S2 normal heart sound, no murmurs, no rub, no gallops and no clicks GI normal to inspection, nondistended, normoactive bowel sounds, soft to palpation and non-tender Extremity no clubbing, cyanosis or edema Skin no wounds, skin turgor normal, no jaundice, no petechiae and no mottling Skin Narrative: Scattered ecchymosis Neuro oriented x3, CN's II-XII intact bilaterally, moves all extremities and no focal motor deficits Sensorium / Orientation: awake and alert Speech: speech normal Psych affect normal Psych Narrative: Very pleasant, eye contact is good Weight / BMI Weight Weight: 75.9 kg Body Mass Index (BMI) 24.0 ABG / Lab / Microbiology Data 08/10/23 06:10 08/10/23 06:10 Laboratory: Laboratory Results - last 24 hr 08/09/23 06:05: Diff Path Review Reviewed 08/09/23 15:55: Sodium 144, Potassium 4.1, Chloride 105, Carbon Dioxide 34.0 H, Anion Gap 5, BUN 52 H, Creatinine 2.19 H, Estim Creat Clear Calc 25.46, Est GFR (MDRD) Af Amer 37 L, Est GFR (MDRD) Non-Af 31 L, BUN/Creatinine Ratio 23.7 H, Glucose 93, Calcium 9.1 08/10/23 06:10: WBC 55.5 H*, RBC 3.94 L, Hgb 10.5 L, Hct 34.4 L, MCV 87.3, MCH 26.6 L, MCHC 30.5 L, RDW Std Deviation 56.9 H, RDW Coeff of Willie 17.8 H, Plt Count 253, MPV 10.2, Immature Gran % (Auto) 0.300, Neut % (Auto) 9.7 L, Lymph % (Auto) 85.7 H, [place]berry % (Auto) 3.2, Eos % (Auto) 0.7, Baso % (Auto) 0.4, Absolute Neuts (auto) 5.4, Absolute Lymphs (auto) 47.53 H, Nucleated RBC % 0, Diff Path Review Reviewed, Sodium 144, Potassium 3.6, Chloride 105, Carbon Dioxide 34.0 H, Anion Gap 5, BUN 49 H, Creatinine 2.05 H, Estim Creat Clear Calc 27.20, Est GFR (MDRD) Af Amer 40 L, Est GFR (MDRD) Non-Af 33 L, BUN/Creatinine Ratio 23.9 H, Glucose 118 H, Calcium 9.1 Microbiology: Microbiology 08/07/23 13:37 Blood Culture (Wb) - Anticubital Left Blood Culture - Preliminary No growth in 48 hours. 08/07/23 13:20 Mucosa - Nose SARS-CoV-2, Influenza & RSV (PCR) - Final D/C Instructions Discharge Diet: Low fat / Low cholesterol (Limit to 2 L of fluid a day) and 2000 mg Sodium Diet Discharge Activity: Return to Normal Activity Meaningful Use Info Meaningful Use Diagnoses (Choose all that apply): CHF CHF HERACLIO/ARB ordered at discharge?: Yes Documented LVEF (%): 30 Discharge Plan Admission Admit Date/Time: 08/07/23 15:19 Primary Reason for Your Visit: Shortness of breath Attending Provider: Kate Horton Primary Care Provider: German Gu NP Consulting Providers: Yovani Soto Instructions Additional Instructions / Restrictions: 1. You are found to have acute on chronic congestive heart failure at the time of your admission. At discharge please monitor your liquid intake and take in no more than 2 L daily. Also, please limit your salt intake to no more than 2 to 3 g of salt daily. 2. Please weigh yourself on a daily basis with no close on. This would be best to do in the morning when you get up and if you gain more than 2 to 3 pounds in a 24-hour period please take 1 extra dose of Lasix at that time. And call the manager cost office. Make sure you use the same scale every day. 3. Due to your dry mouth we stopped your nortriptyline for your neuropathy. 4. Please follow-up with cardiology as noted below 5. Please call your primary care physician and ask that a basic metabolic profile be obtained in the next 5 to 7 days to recheck your kidney function and electrolyte levels with the addition of the Lasix. Discharge Orders/Prescriptions Prescriptions: New furosemide 40 mg Tablet 40 mg PO DAILY Qty: 30 1RF gabapentin 100 mg Capsule 200 mg PO QHS Qty: 60 1RF Continued Entresto 49-51 mg tablet 1 tab PO BID Hold Instructions: Resume on 03/15/23. zinc acetate 50 mg (zinc) capsule 50 mg PO DAILY polysaccharide iron complex [Ferrex 150] 150 mg iron capsule 150 mg PO DAILY Qty: 30 1RF cholecalciferol (vitamin D3) [Vitamin D3] 1,000 UNIT capsule 50 mcg PO DAILY Patient Comments: pt unsure if 25mcg or 50 mcg carvedilol 25 MG tablet 25 mg PO BID Osteo Bi-Flex Triple Strength 1 EACH tablet 1 ea PO DAILY atorvastatin 10 mg tablet 10 mg PO DAILY tamsulosin 0.4 mg Capsule 0.4 mg PO DAILY 30 Days Qty: 30 0RF ondansetron 4 mg tablet,disintegrating 4 mg PO Q6H PRN (Reason: nausea and vomiting) Qty: 10 0RF multivitamin [Daily Multi-Vitamin] Tablet 1 tab PO DAILY potassium chloride 10 mEq capsule, extended release 10 meq PO DAILY Discontinued nortriptyline 50 mg capsule 50 mg PO BID Referrals / Follow Up: Loc Thorne MD [Med Staff - Active Staff] - 09/04/23 1:30 pm German Gu NP, [employer]ATOR-C [Primary Care Provider] - Within 1 Week Disposition Disposition (needs filled in before D/C Order can be placed): Home, Self Care Charges/Coding Visit Charges Inpatient E&M: 33680 Disch Hosp >30min
--- NOTE | 2023-08-10 12:45 | CASEMGMT ---
Patient has order for discharge. RN CM in to discuss needs at discharge. Patient states he would like walker at discharge and prefers [employer]. Patient discharging with CCN. Patient and sons had no further questions or concerns. Script received and referral sent to [facility] via [email or web address]. Patient provided walker from [employer].
--- NOTE | 2023-08-10 13:37 | PHA.DC_ITS ---
Pharmacy [facility] has performed discharge medication reconciliation and counseling for this patient. The patient's discharge medication list was reviewed for discrepancies and discrepancies were resolved. The patient was counseled on the following discharge medications and changes in medications for homegoing were reviewed. The Reason for Use, instructions for use, and potential side effects were reviewed for all new medications. The patient's questions regarding all of their medications were answered. 1. Furosemide 40 mg PO daily 2. Gabapentin 200 mg PO QHS The patient was able to verbally demonstrate an understanding of their discharge medications. Medications at Discharge Home Medications cholecalciferol (vitamin D3) 25 mcg (1,000 unit) capsule (Vitamin D3) 50 mcg PO DAILY 08/09/16 carvedilol 25 mg tablet 25 mg PO BID 08/24/16 glucosamine 750 [id number] no1 644 mg-C 30 mg-gilson 1 mg tablet (Osteo Bi-Flex Triple Strength) 1 ea PO DAILY 08/24/16 sacubitril 49 mg-valsartan 51 mg tablet (Entresto) 1 tab PO BID 08/24/22 zinc acetate 50 mg (zinc) capsule 50 mg PO DAILY 08/24/22 atorvastatin 10 mg tablet 10 mg PO DAILY 03/04/23 tamsulosin 0.4 mg capsule 0.4 mg PO DAILY 30 days #30 caps 03/06/23 ondansetron 4 mg disintegrating tablet 4 mg PO Q6H PRN nausea and vomiting #10 tabs 03/15/23 polysaccharide iron complex 150 mg iron capsule (Ferrex) 150 mg PO DAILY #30 caps 03/20/23 multivitamin (Daily Multi-Vitamin tablet) 1 tab PO DAILY 08/07/23 potassium chloride 10 mEq capsule,extended release 10 meq PO DAILY 08/07/23 furosemide 40 mg tablet 40 mg PO DAILY #30 tabs 08/10/23 gabapentin 100 mg capsule 200 mg (2 x 100 mg) PO QHS #60 caps 08/10/23
--- NOTE | 2023-08-10 14:20 | CCN.REFER ---
PATIENT AND FAMILY AGREEABLE TO CCN. HOME VISIT WILL TAKE PLACE WEEK OF 08/11.
== END 2023-08-10 13:45 | disposition home or self-care (01) | DRG 291 ==
LOC: ED 15:17 → PCU 15:27
PROVIDERS: Emergency Provider Emergency Medicine; PCP Nurse Practitioner Primary Care; Visit Provider Internal Medicine
DX: I13.0 Hypertensive heart and chronic kidney disease with heart failure and stage 1 through stage 4 chronic kidney disease, or unspecified chronic kidney disease (principal); I50.23 Acute on chronic systolic (congestive) heart failure; N13.8 Other obstructive and reflux uropathy; D63.1 Anemia in chronic kidney disease; I42.8 Other cardiomyopathies; N18.32 Chronic kidney disease, stage 3b; E78.00 Pure hypercholesterolemia, unspecified; E55.9 Vitamin D deficiency, unspecified; G62.9 Polyneuropathy, unspecified; I44.7 Left bundle-branch block, unspecified; R09.02 Hypoxemia; N40.1 Benign prostatic hyperplasia with lower urinary tract symptoms; R33.8 Other retention of urine; Z66 Do not resuscitate; Z95.810 Presence of automatic (implantable) cardiac defibrillator; Z79.899 Other long term (current) drug therapy; Z85.46 Personal history of malignant neoplasm of prostate; Z85.6 Personal history of leukemia; Z86.79 Personal history of other diseases of the circulatory system; Z92.3 Personal history of irradiation
CPT/HCPCS: 36415; 71045; 71275; 80048; 83605; 83735; 83880; 84100; 84484; 85025; 85379; 87040; 87631; 92526; 92610; 93005; 93306; 94640; 97161; 97802; 99285; Q9967; A4216; J1940; J2405

== ENCOUNTER 2023-08-16 11:35 | Inpatient (IN) | payer MEDICARE, SELFPAY ==
[2023-08-16] VITALS (7 sets, daily range): BP systolic 116–148; BP diastolic 54–90; PULSE 60–88; RESP 13–18; TEMP 36.6–36.7; O2SAT 94–97; BMI 22.9
--- NOTE | 2023-08-16 11:57 | CT_ITS ---
STUDY: CT BRAIN WITHOUT CONTRAST REASON FOR EXAM: Male, 83 years old. Altered mental status RADIATION DOSAGE (If Supplied By Facility): CTDIvol = ( 44.99 ) mGy, DLP = ( 812.98 ) mGycm TECHNIQUE: Transaxial CT imaging of the brain was performed without administration of intravenous contrast material. Individualized dose optimization techniques were used for this CT. COMPARISON: Comparison is made with prior examination dated March 04, 2023. FINDINGS: Normal soft tissue structures. The patient is status post left frontal craniotomy. There is mild cerebral atrophy with widening of the extra-axial spaces and ventricular dilatation. There are areas of decreased attenuation within the white matter tracts of the supratentorial brain, consistent with microvascular disease changes. Normal basal ganglia and thalami. Normal brainstem. Normal cerebellum. There is no intracranial hemorrhage. There are no findings of an acute ischemic infarction. Atherosclerotic plaque formation of the vertebral arteries and cavernous portions of the internal carotid arteries bilaterally. Normal visualized paranasal sinuses. Nasal septal deviation towards the left side of the midline. CT/Brain/Head without Contrast IMPRESSION: Chronic involutional changes of the brain. Electronically Signed: Gerson Watkins MD at 12:51 EDT ,
--- NOTE | 2023-08-16 12:00 | EX.ED.DYSGE1 ---
HPI <RENETTA Waldrop - Last Filed: 08/16/23 13:50> History of Present Illness Chief Complaint: Weakness Narrative Narrative: Patient is a 83-year-old male with history of hypertension hyperlipidemia CHF who recently was admitted to the hospital 1 week ago for CHF exacerbation, hypoxia. Patient has been home for greater than 1 week. Per the daughter, the patient is continuing to have nausea and vomiting, patient has been having intermittent dizziness which she described as unsteadiness, however this has been ongoing for several weeks. He did see his PCP yesterday given Zofran however patient continues to feel worsening weakness. Patient denies any chest pain or shortness of breath. Per the daughter, they were very concerned with his excessive weakness in the last 24 hours and is here for evaluation. PFS <RENETTA Waldrop - Last Filed: 08/16/23 13:50> [facility] Medical History Back pain due to injury Cancer CKD (chronic kidney disease), stage III CLL (chronic lymphocytic leukemia) Essential hypertension HFrEF (heart failure with reduced ejection fraction) High cholesterol ICD (implantable cardioverter-defibrillator) in place Iron deficiency anemia LBBB (left bundle branch block) Myocardial infarct Non-ischemic cardiomyopathy Orthostatic hypotension Pacemaker Peripheral neuropathy Prostate cancer Restless leg syndrome Subdural hematoma Ventricular tachycardia Home Medications cholecalciferol (vitamin D3) 25 mcg (1,000 unit) capsule (Vitamin D3) 50 mcg PO DAILY 08/09/16 [History Last Taken 03/31/23] carvedilol 25 mg tablet 25 mg PO BID 08/24/16 [History Last Taken 03/04/23] sacubitril 49 mg-valsartan 51 mg tablet (Entresto) 1 tab PO BID 08/24/22 [History Last Taken 03/31/23] zinc acetate 50 mg (zinc) capsule 50 mg PO DAILY 08/24/22 [History Last Taken 03/31/23] atorvastatin 10 mg tablet 10 mg PO DAILY 03/04/23 [History Last Taken 03/30/23] polysaccharide iron complex 150 mg iron capsule (Ferrex) 150 mg PO DAILY #30 caps 03/20/23 [Rx Last Taken 03/31/23] potassium chloride 10 mEq capsule,extended release 10 meq PO DAILY 08/07/23 [History Last Taken Unknown] furosemide 40 mg tablet 40 mg PO DAILY #30 tabs 08/10/23 [Rx Last Taken Unknown] gabapentin 100 mg capsule 200 mg (2 x 100 mg) PO QHS #60 caps 08/10/23 [Rx Last Taken Unknown] Allergy/AdvReac Type Severity Reaction Status Date / Time lisinopril AdvReac Unknown cough Verified 08/16/23 11:36 Family History Mother CVA (cerebral vascular accident) Hypertension Diabetes Father Ischemic heart disease Diabetes Surgical History Cardiac 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 therapy defibrillator (LEGAL COMPLIANCE OFFICER-D) in place (~09/2015) History of arthroplasty of finger of left hand History of colonoscopy History of left heart catheterization (09/22/15) S/P TURP Splenic artery aneurysm Status post laser lithotripsy of ureteral calculus Social History household members: spouse Smoking Status: Never smoker alcohol intake: never substance use type: does not use caffeine: Yes Type: coffee Number of servings: 3 ROS <RENETTA Waldrop - Last Filed: 08/16/23 13:50> ROS ED ROS Narrative Constitutional: Negative for fever, chills, weight loss. Positive for generalized weakness Eyes: Negative for vision loss, vision change, double vision ENT: Negative for any sore throat, ear pain, congestion Cardiovascular: Negative for any chest pain, tightness, palpitations Respiratory: Negative for any cough, sputum production, hemoptysis, dyspnea, dyspnea on exertion, orthopnea Gastrointestinal: Negative for any abdominal pain, diarrhea, constipation, blood in stool, blood in vomit. Positive for nausea and vomiting : Negative for any urinary frequency, dysuria, retention, blood in urine Muscle skeletal: Negative for any neck pain, back pain Neurological: Negative for any headache, syncope, dizziness Skin: Negative for any rashes, itching, abrasions, lacerations Psychiatric: Negative for any depression, anxiety, stress, suicidal ideation, homicidal ideation Hematologic: Negative for any excessive bruising, easy bleeding EXAM <RENETTA Waldrop - Last Filed: 08/16/23 13:50> Physical Exam Narrative Exam Narrative: Vital signs reviewed. Patient is alert and orient x 4. HEET: Head normocephalic atraumatic, TMs clear bilaterally. Posterior pharynx is clear, dry mucous membranes. Nares clear bilaterally. Neck: Supple with no lymphadenopathy or tenderness. No signs of meningismus. Cardiac: Regular rate and rhythm no murmurs gallops or rubs, equal peripheral pulses bilaterally. Respiratory: Lungs clear to auscultation bilaterally. No chest tenderness. Abdomen: Soft, nontender, nondistended. No abdominal bruit or pulsatile masses. No hepatosplenomegaly Extremities: No peripheral edema, no signs of gross trauma or deformity. Active full range of motion of all extremities. Neuro: Cranial nerves II through XII intact, no focal neurological deficits. Gladis-Hallpike maneuver was negative. However patient does have horizontal nystagmus. Skin: Clean dry and intact with no rash, purpura, petechiae, vesicles or pustules. Backs/flank: No CVA tenderness, no midline spinal tenderness, no deformity. Psych: Normal mood and affect. No SI, HI or acute psychosis. Const Vital Signs: 08/16/23 11:35 08/16/23 12:17 08/16/23 13:35 Temperature 98 F Temperature Source Temporal Pulse Rate 61 67 Respiratory Rate 14 18 Respiratory Effort Normal Respiratory Pattern Normal Blood Pressure 118/54 L 117/59 L Blood Pressure Mean 75 78 Pulse Ox 96 96 Oxygen Delivery Method Room Air Room Air <Dr. Latesha Heredia MD - Last Filed: 08/16/23 15:45> Physical Exam Const Vital Signs: 08/16/23 11:35 08/16/23 12:17 08/16/23 13:35 Temperature 98 F Temperature Source Temporal Pulse Rate 61 67 Respiratory Rate 14 18 Respiratory Effort Normal Respiratory Pattern Normal Blood Pressure 118/54 L 117/59 L Blood Pressure Mean 75 78 Pulse Ox 96 96 Oxygen Delivery Method Room Air Room Air MAT <RENETTA Waldrop - Last Filed: 08/16/23 13:50> [facility] Lab Data Labs: Laboratory Results - last 24 hr 08/16/23 08/16/23 12:00 13:00 WBC 57.8 H* RBC 3.99 L Hgb 10.7 L Hct 35.5 L MCV 89.0 MCH 26.8 L MCHC 30.1 L RDW Std Deviation 57.1 H RDW Coeff of Willie 17.7 H Plt Count 272 MPV 10.1 Immature Gran % (Auto) 0.300 Neut % (Auto) 11.5 L Lymph % (Auto) 85.8 H [place] % (Auto) 1.7 Eos % (Auto) 0.3 Baso % (Auto) 0.4 Absolute Neuts (auto) 6.7 Absolute Lymphs (auto) 49.61 H Nucleated RBC % 0 Differential Comment SCANNED Diff Path Review September foll Sodium 141 Potassium 3.8 Chloride 106 Carbon Dioxide 33.0 H Anion Gap 2 L BUN 54 H Creatinine 2.05 H Est GFR (MDRD) Af Amer 40 L Est GFR (MDRD) Non-Af 33 L BUN/Creatinine Ratio 26.3 H Glucose 140 H Calcium 9.0 Magnesium 2.3 Total Bilirubin 0.40 AST 19 ALT 24 Alkaline Phosphatase 87 Troponin I High Sens 17 Total Protein 5.8 L Albumin 3.3 Globulin 2.5 Albumin/Globulin Ratio 1.3 Lipase 15 Urine Color Yellow Urine Clarity Clear Urine pH 6.5 Ur Specific [place] 1.010 Urine Protein 15 H Urine Glucose (UA) Normal Urine Ketones Negative Urine Occult Blood Negative Urine Nitrite Negative Urine Bilirubin Negative Urine Urobilinogen Normal Ur Leukocyte Esterase 100 H Urine RBC 0 SEEN Urine WBC 5-10 SEEN Ur Squamous Epith Cells 0 SEEN Urine Bacteria 0 SEEN Urine Mucus 0 SEEN Radiography Diagnostic Testing: Clinical Impression(s) from Imaging Studies Brain CT 08/16/23 11:57 IMPRESSION: Chronic involutional changes of the brain. Electronically Signed: Gerson Watkins MD at 12:51 EDT , Chest X-Ray 08/16/23 12:22 IMPRESSION: Hyperinflation. No acute abnormality is seen. Electronically Signed: Gerson Watkins MD at 12:52 EDT , EKG AV dual pacemaker: Attestation: I personally reviewed and interpreted this EKG as follows: Comments: AV dual paced rhythm, rate of 60 bpm, SC interval 126 ms, QRS duration 68 ms, no acute ST elevation, no acute infarct noted. Treatment and Re-Evaluation :: Differential diagnosis includes however is not limited to: CVA, ACS, DC, dehydration, electrolyte abnormality, gastroenteritis, vertigo Patient is alert oriented x 4. Patient is in no respiratory distress. Patient presents to the emergency department with complaints of generalized weakness, nausea and vomiting, intermittent dizziness. Patient will receive a full workup. Patient received a CT scan of the brain, chest x-ray, laboratory values including a troponin. This is concerning for any ACS or DC, electrolyte abnormalities. All radiologic examinations were read, reviewed by the emergency department attending. From these reads, a plan of care will be put in place. Patient will be given IV fluids, 500 cc normal saline. Patient will be reevaluated. Patient's chest x-ray showed no acute abnormality. Patient's COVID-19 influenza and RSV were negative. CT scan of the brain was unremarkable. Patient's laboratory values showed an elevated white blood count at 57.8 however second [place] to the patient's CLL, he is always above 50. Patient's hemoglobin is 10.7 which is baseline. Patient's chemistries show some renal sufficiency with a creatinine of 2.05, this again is baseline for the patient. Patient's BUN is elevated at 54. Patient trying to urinate on the urinal did take 2 nurses to help him steady himself. At this time, I spoke with the patient, the patient's family. The patient and family are very nervous about the patient returning home, the patient's is currently healing from a significant back surgery and the patient's family lives greater than 1 hour away. The patient is concerned for falling, and is unsure if the patient cannot care for himself. Patient will need to be admitted to the hospital and sent to rehab facility. I spoke with the patient as well as the patient's family, they are in agreement. I spoke with hospitalist who agrees to admit. Patient is stable. <Dr. Latesha Heredia MD - Last Filed: 08/16/23 15:45> [facility] Lab Data Labs: Laboratory Results - last 24 hr 08/16/23 08/16/23 12:00 13:00 WBC 57.8 H* RBC 3.99 L Hgb 10.7 L Hct 35.5 L MCV 89.0 MCH 26.8 L MCHC 30.1 L RDW Std Deviation 57.1 H RDW Coeff of Willie 17.7 H Plt Count 272 MPV 10.1 Immature Gran % (Auto) 0.300 Neut % (Auto) 11.5 L Lymph % (Auto) 85.8 H [place] % (Auto) 1.7 Eos % (Auto) 0.3 Baso % (Auto) 0.4 Absolute Neuts (auto) 6.7 Absolute Lymphs (auto) 49.61 H Nucleated RBC % 0 Differential Comment SCANNED Diff Path Review September Sodium 141 Potassium 3.8 Chloride 106 Carbon Dioxide 33.0 H Anion Gap 2 L BUN 54 H Creatinine 2.05 H Est GFR (MDRD) Af Amer 40 L Est GFR (MDRD) Non-Af 33 L BUN/Creatinine Ratio 26.3 H Glucose 140 H Calcium 9.0 Magnesium 2.3 Total Bilirubin 0.40 AST 19 ALT 24 Alkaline Phosphatase 87 Troponin I High Sens 17 Total Protein 5.8 L Albumin 3.3 Globulin 2.5 Albumin/Globulin Ratio 1.3 Lipase 15 Urine Color Yellow Urine Clarity Clear Urine pH 6.5 Ur Specific [place] 1.010 Urine Protein 15 H Urine Glucose (UA) Normal Urine Ketones Negative Urine Occult Blood Negative Urine Nitrite Negative Urine Bilirubin Negative Urine Urobilinogen Normal Ur Leukocyte Esterase 100 H Urine RBC 0 SEEN Urine WBC 5-10 SEEN Ur Squamous Epith Cells 0 SEEN Urine Bacteria 0 SEEN Urine Mucus 0 SEEN Radiography Diagnostic Testing: Clinical Impression(s) from Imaging Studies Brain CT 08/16/23 11:57 IMPRESSION: Chronic involutional changes of the brain. Electronically Signed: Gersno Watkins MD at 12:51 EDT , Chest X-Ray 08/16/23 12:22 IMPRESSION: Hyperinflation. No acute abnormality is seen. Electronically Signed: Gerson Watkins MD at 12:52 EDT , Treatment and Re-Evaluation Comments:: Patient seen and evaluated with EMPERATRIZ. I personally interviewed and examined the patient. I was involved in all aspects of patient's orders, interpretation of results, and treatment. Patient presents secondary to generalized weakness. He had a recent hospital admission for CHF. Family states he has continued to have functional decline at home. His reportedly just had recent back surgery and she is unable to help care for him as well. Patient is concerned about falling and injuring himself. Patient sitting upright in bed no acute distress. Head and neck examination unremarkable. Heart is regular rate and rhythm. Lung sounds are clear. Abdomen is soft with no focal tenderness. Neuro exam reveals no evidence of focal deficit. CBC reveals white count of 57.8 consistent with his CLL. Hemoglobin is 10.7. 85% lymphocytes noted. Chemistry studies reveal a BUN of 54 and a creatinine of 2.05. This is consistent with his prior values. LFTs and lipase are unremarkable. Urinalysis reveals no evidence of acute infection. CT scan of the head reveals chronic changes with no acute findings. Chest x-ray shows hyperinflation with no evidence of focal infiltrate per both my independent interpretation as well as radiology. Swab for COVID, influenza, and RSV is negative. EKG is paced with no evidence of ischemia. Nursing staff does note that they got the patient up to help him go to the bathroom. He required an assist of 2 secondary to unsteadiness. Family would like him placed for rehab and therapy. Hospitalist contacted. Discharge Plan Dx/Rx/DC Orders Clinical Impression: Dizziness, Weakness, Nausea & vomiting Disposition Disposition: [facility]
[2023-08-16] MEDS: Ondansetron 4 MG/2 ML Vial IV (12:12)
[2023-08-16] MEDS: 0.9% Normal Saline (500mL Bag) 500 ML 999 ML IV (12:13)
[2023-08-16 12:14] LABS: Absolute Lymphocyte Count 49.61 X10^3/uL (0.83-4.51); Absolute Neutrophil Count 6.7 X10^3/uL (2.0-7.7); Basophil# 0.24 X10^3/uL; Basophil% 0.4 % (0-1); Eosinophil# 0.18 X10^3/uL; Eosinophils% 0.3 % (0-5); Hematocrit 35.5 % (40-54); Hemoglobin 10.7 g/dL (13.0-16.5); Lymphocyte # 49.61 X10^3/ul (0.83-4.51); Lymphocyte % 85.8 % (19-41); Mean Corp Hgb Conc 30.1 g/dL (32-36); Mean Corpuscular Hgb 26.8 pg (27.0-32.0); Mean Platelet Vol. 10.1 fl (6.2-12.0); Monocyte# 0.97 X10^3/uL; Monocyte% 1.7 % (0-10); NRBC Flagged by Analyzer 0 % (0-5); Neutrophil # 6.65 X10^3/uL (2.7-7.7); Neutrophil % 11.5 % (47-70); POSITIVE COUNT YES; POSITIVE DIFFERENTIAL YES; Platelet Count 272 K/mm3 (150-450); RBC Distribution Width CV 17.7 % (11.6-14.6); RBC Distribution Width SD 57.1 fl (35.1-43.9); Red Blood Count 3.99 M/mm3 (4.6-6.2)
--- NOTE | 2023-08-16 12:22 | RAD_ITS ---
STUDY: X-RAY CHEST REASON FOR EXAM: Male, 83 years old. Cough TECHNIQUE: Single AP portable view of the chest. COMPARISON: Comparison is made with prior study August 07, 2023. FINDINGS: EKG electrodes are seen. Hyperinflation. The lungs are clear. There is no demonstrated pleural abnormality. There is mild cardiac enlargement. A left-sided dual-chamber pacemaker is seen. Normal mediastinum and emerson. Normal visualized pulmonary arteries. There is atherosclerotic calcification of the aortic arch with tortuosity. There are diffuse degenerative changes of the visualized thoracic spine. There is degenerative osteoarthritis of the bilateral shoulders. There is no demonstrated abnormality of the visualized soft tissue structures of the upper abdomen. RAD/Chest 1 View (Portable) IMPRESSION: Hyperinflation. No acute abnormality is seen. Electronically Signed: Gerson Watkins MD at 12:52 EDT ,
[2023-08-16 12:28] LABS: Differential Indicated SCAN CRITERIA MET; White Blood Count 57.8 K/mm3 (4.4-11.0)
[2023-08-16 12:32] LABS: ALB/GLOB Ratio 1.3 RATIO (0.9-2.4); AST(SGOT) 19 U/L (15-37); Alanine Aminotransfer ALT/SGPT 24 U/L (16-61); Albumin, Serum 3.3 g/dL (3.2-5.0); Alkaline Phosphatase 87 U/L (45-117); Anion Gap 2 (5-15); BUN 54 mg/dL (7-18); BUN/Creat Ratio 26.3 RATIO (10-20); Chloride 106 mmol/L (98-107); Creatinine, Serum 2.05 mg/dL (0.70-1.30); EST Glomerular Filtration Rate 33 mL/min (>60); Est Glom Filt Rate - Afr Amer 40 mL/min (>60); Globulin 2.5 g/dL (2.2-4.2); Glucose 140 mg/dL (74-106); Lipase 15 U/L (13-75); Potassium 3.8 mmol/L (3.5-5.1); Protein, Total 5.8 g/dL (6.4-8.2); Sodium Level 141 mmol/L (136-145); Troponin-I HS 17 pg/mL (3.0-78.0)
[2023-08-16 12:48] LABS: Differential Comment SCANNED
[2023-08-16 13:08] LABS: Bacteria 0 SEEN /hpf (None Seen); Mucous, Urine 0 SEEN /hpf (<or=2+); Red Blood Cells-Urine 0 SEEN /hpf (0-5); Squamous Epithelial Cells - UA 0 SEEN /hpf (0-5)
[2023-08-16 13:14] LABS: Color, Urine Yellow (Yellow); Glucose, Dipstick Normal (Normal); Ketone-Dipstick Negative (Negative); Leukocyte Esterase-Dipstick 100 /ul (Negative); Nitrite-Dipstick Negative (Negative); Occult Blood-Urine Negative /ul (Negative); Protein-Dipstick 15 mg/dl (Negative); Urine Bilirubin Dipstick Negative (Negative); Urine Clarity Clear (Clear); Urine Urobilinogen Normal (Normal); Urine pH 6.5 (5.0 - 8.0)
[2023-08-16 13:22] LABS: White Blood Cells 5-10 SEEN /hpf (0-5)
--- NOTE | 2023-08-16 13:42 | HP.PCM.HOS_ITS ---
HPI - General HPI Narrative BIGG LONG, is a 83 M who presents [facility] Medical History Back pain due to injury Cancer CKD (chronic kidney disease), stage III CLL (chronic lymphocytic leukemia) Essential hypertension HFrEF (heart failure with reduced ejection fraction) High cholesterol ICD (implantable cardioverter-defibrillator) in place Iron deficiency anemia LBBB (left bundle branch block) Myocardial infarct Non-ischemic cardiomyopathy Orthostatic hypotension Pacemaker Peripheral neuropathy Prostate cancer Restless leg syndrome Subdural hematoma Ventricular tachycardia Home Medications cholecalciferol (vitamin D3) 25 mcg (1,000 unit) capsule (Vitamin D3) 50 mcg PO DAILY 08/09/16 [History Last Taken 03/31/23] carvedilol 25 mg tablet 25 mg PO BID 08/24/16 [History Last Taken 03/04/23] glucosamine 750 [id number] 644 mg-C 30 mg-gilson 1 mg tablet (Osteo Bi-Flex Triple Strength) 1 ea PO DAILY 08/24/16 [History Last Taken 03/31/23] sacubitril 49 mg-valsartan 51 mg tablet (Entresto) 1 tab PO BID 08/24/22 [History Last Taken 03/31/23] zinc acetate 50 mg (zinc) capsule 50 mg PO DAILY 08/24/22 [History Last Taken 03/31/23] atorvastatin 10 mg tablet 10 mg PO DAILY 03/04/23 [History Last Taken 03/30/23] tamsulosin 0.4 mg capsule 0.4 mg PO DAILY 30 days #30 caps 03/06/23 [Rx Last Taken 03/31/23] ondansetron 4 mg disintegrating tablet 4 mg PO Q6H PRN nausea and vomiting #10 tabs 03/15/23 [Rx Last Taken Unknown] polysaccharide iron complex 150 mg iron capsule (Ferrex) 150 mg PO DAILY #30 caps 03/20/23 [Rx Last Taken 03/31/23] multivitamin (Daily Multi-Vitamin tablet) 1 tab PO DAILY 08/07/23 [History Last Taken Unknown] potassium chloride 10 mEq capsule,extended release 10 meq PO DAILY 08/07/23 [History Last Taken Unknown] furosemide 40 mg tablet 40 mg PO DAILY #30 tabs 08/10/23 [Rx Last Taken Unknown] gabapentin 100 mg capsule 200 mg (2 x 100 mg) PO QHS #60 caps 08/10/23 [Rx Last Taken Unknown] Allergy/AdvReac Type Severity Reaction Status Date / Time lisinopril AdvReac Unknown cough Verified 08/16/23 11:36 Family History Mother CVA (cerebral vascular accident) Hypertension Diabetes Father Ischemic heart disease Diabetes Surgical History Cardiac 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 therapy defibrillator (COMMUNICATIONS STATION MANAGER-D) in place (~09/2015) History of arthroplasty of finger of left hand History of colonoscopy History of left heart catheterization (09/22/15) S/P TURP Splenic artery aneurysm Status post laser lithotripsy of ureteral calculus Social History household members: spouse Smoking Status: Never smoker alcohol intake: never substance use type: does not use caffeine: Yes Type: coffee Number of servings: 3 Vital Signs Vital Signs Vital Signs: 08/16/23 11:35 08/16/23 12:17 08/16/23 13:35 Temperature 98 F Temperature Source Temporal Pulse Rate 61 67 Respiratory Rate 14 18 Respiratory Effort Normal Respiratory Pattern Normal Blood Pressure 118/54 L 117/59 L Blood Pressure Mean 75 78 Pulse Ox 96 96 Oxygen Delivery Method Room Air Room Air Results Lab / Micro Data 08/16/23 12:00 08/16/23 12:00 Labs: Laboratory Results - last 24 hr 08/16/23 12:00: WBC 57.8 H*, RBC 3.99 L, Hgb 10.7 L, Hct 35.5 L, MCV 89.0, MCH 26.8 L, MCHC 30.1 L, RDW Std Deviation 57.1 H, RDW Coeff of Willie 17.7 H, Plt Count 272, MPV 10.1, Immature Gran % (Auto) 0.300, Neut % (Auto) 11.5 L, Lymph % (Auto) 85.8 H, [place] % (Auto) 1.7, Eos % (Auto) 0.3, Baso % (Auto) 0.4, Absolute Neuts (auto) 6.7, Absolute Lymphs (auto) 49.61 H, Nucleated RBC % 0, Differential Comment SCANNED, Diff Path Review September foll, Sodium 141, Potassium 3.8, Chloride 106, Carbon Dioxide 33.0 H, Anion Gap 2 L, BUN 54 H, Creatinine 2.05 H, Est GFR (MDRD) Af Amer 40 L, Est GFR (MDRD) Non-Af 33 L, BUN/Creatinine Ratio 26.3 H, Glucose 140 H, Calcium 9.0, Total Bilirubin 0.40, AST 19, ALT 24, Alkaline Phosphatase 87, Troponin I High Sens 17, Total Protein 5.8 L, Albumin 3.3, Globulin 2.5, Albumin/Globulin Ratio 1.3, Lipase 15 08/16/23 13:00: Urine Color Yellow, Urine Clarity Clear, Urine pH 6.5, Ur Specific [place] 1.010, Urine Protein 15 H, Urine Glucose (UA) Normal, Urine Ketones Negative, Urine Occult Blood Negative, Urine Nitrite Negative, Urine Bilirubin Negative, Urine Urobilinogen Normal, Ur Leukocyte Esterase 100 H, Urine RBC 0 SEEN, Urine WBC 5-10 SEEN, Ur Squamous Epith Cells 0 SEEN, Urine Bacteria 0 SEEN, Urine Mucus 0 SEEN Micro: Microbiology 08/16/23 12:10 Mucosa - Nose SARS-CoV-2, Influenza & RSV (PCR) - Final Imaging Radiology Impression Brain CT 08/16/23 11:57 IMPRESSION: Chronic involutional changes of the brain. Electronically Signed: Gerson Watkins MD at 12:51 EDT Reading Location ID and State: [facility] / [place] , Service support , Chest X-Ray 08/16/23 12:22 IMPRESSION: Hyperinflation. No acute abnormality is seen. Electronically Signed: Gerson Watkins MD at 12:52 EDT , Assessment & Plan Assessment/Plan PLAN: Plan Microbiology Past 72 Hours 08/16/23 12:10 Mucosa - Nose SARS-CoV-2, Influenza & RSV (PCR) - Final Laboratory Results 08/16/23 12:00: WBC 57.8 H*, RBC 3.99 L, Hgb 10.7 L, Hct 35.5 L, MCV 89.0, MCH 26.8 L, MCHC 30.1 L, RDW Std Deviation 57.1 H, RDW Coeff of Willie 17.7 H, Plt Count 272, MPV 10.1, Immature Gran % (Auto) 0.300, Neut % (Auto) 11.5 L, Lymph % (Auto) 85.8 H, [place] % (Auto) 1.7, Eos % (Auto) 0.3, Baso % (Auto) 0.4, Absolute Neuts (auto) 6.7, Absolute Lymphs (auto) 49.61 H, Nucleated RBC % 0, Differential Comment SCANNED, Diff Path Review September, Sodium 141, Potassium 3.8, Chloride 106, Carbon Dioxide 33.0 H, Anion Gap 2 L, BUN 54 H, Creatinine 2.05 H, Est GFR (MDRD) Af Amer 40 L, Est GFR (MDRD) Non-Af 33 L, BUN/Creatinine Ratio 26.3 H, Glucose 140 H, Calcium 9.0, Total Bilirubin 0.40, AST 19, ALT 24, Alkaline Phosphatase 87, Troponin I High Sens 17, Total Protein 5.8 L, Albumin 3.3, Globulin 2.5, Albumin/Globulin Ratio 1.3, Lipase 15 08/16/23 13:00: Urine Color Yellow, Urine Clarity Clear, Urine pH 6.5, Ur Specific [place] 1.010, Urine Protein 15 H, Urine Glucose (UA) Normal, Urine Ketones Negative, Urine Occult Blood Negative, Urine Nitrite Negative, Urine Bilirubin Negative, Urine Urobilinogen Normal, Ur Leukocyte Esterase 100 H, Urine RBC 0 SEEN, Urine WBC 5-10 SEEN, Ur Squamous Epith Cells 0 SEEN, Urine Bacteria 0 SEEN, Urine Mucus 0 SEEN Clinical Impression(s) from Imaging Studies Brain CT 08/16/23 11:57 IMPRESSION: Chronic involutional changes of the brain. Chest X-Ray 08/16/23 12:22
--- NOTE | 2023-08-16 13:42 | PCM.HP.STD ---
[facility] - General General Date of Admission: 08/16/23 Date of Service: 08/16/23 Chief Complaint: Generalized weakness, nauseated/mild vomiting in the morning. HPI Narrative BIGG LONG, is a 83 M who was recently admitted between 08/06 to 08/09 for acute on chronic HFrEF and had full workup done and discharged on guideline directed heart failure medications. After discharge patient feels periodic morning nausea and vomiting little amount after he wakes up. As per the son and daughter who is near the patient in ED also said that he only gets vomiting more like gagging and nauseated in the morning but not afterwards. This is even before taking medication or food or drink. No fever. Patient also complained that he feels very weak fatigued even on normal activities of daily living. He gets easily tired on walking within the home like in the morning climbed 340 steps and he felt like fatigue and almost collapsed and sat down. He did not pass out or felt like fainting or vertigo although had mild dizziness feeling. Patient denies chest pressure tightness or pain or shortness of breath on exertion or palpitation or other cardiopulmonary symptoms after discharge. Patient is being admitted for dehydration and evaluation for rehab placement Vitals in the ED within normal range. Labs and EKG reviewed and discussed assessment and plan [facility] Medical History Back pain due to injury Cancer CKD (chronic kidney disease), stage III CLL (chronic lymphocytic leukemia) Essential hypertension HFrEF (heart failure with reduced ejection fraction) High cholesterol ICD (implantable cardioverter-defibrillator) in place Iron deficiency anemia LBBB (left bundle branch block) Myocardial infarct Non-ischemic cardiomyopathy Orthostatic hypotension Pacemaker Peripheral neuropathy Prostate cancer Restless leg syndrome Subdural hematoma Ventricular tachycardia Home Medications cholecalciferol (vitamin D3) 25 mcg (1,000 unit) capsule (Vitamin D3) 50 mcg PO DAILY 08/09/16 [History Last Taken 03/31/23] carvedilol 25 mg tablet 25 mg PO BID 08/24/16 [History Last Taken 03/04/23] sacubitril 49 mg-valsartan 51 mg tablet (Entresto) 1 tab PO BID 08/24/22 [History Last Taken 03/31/23] zinc acetate 50 mg (zinc) capsule 50 mg PO DAILY 08/24/22 [History Last Taken 03/31/23] atorvastatin 10 mg tablet 10 mg PO DAILY 03/04/23 [History Last Taken 03/30/23] polysaccharide iron complex 150 mg iron capsule (Ferrex) 150 mg PO DAILY #30 caps 03/20/23 [Rx Last Taken 03/31/23] potassium chloride 10 mEq capsule,extended release 10 meq PO DAILY 08/07/23 [History Last Taken Unknown] furosemide 40 mg tablet 40 mg PO DAILY #30 tabs 08/10/23 [Rx Last Taken Unknown] gabapentin 100 mg capsule 200 mg (2 x 100 mg) PO QHS #60 caps 08/10/23 [Rx Last Taken Unknown] Allergy/AdvReac Type Severity Reaction Status Date / Time lisinopril AdvReac Unknown cough Verified 08/16/23 11:36 Family History Mother CVA (cerebral vascular accident) Hypertension Diabetes Father Ischemic heart disease Diabetes Surgical History Cardiac 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 therapy defibrillator (CONCRETE TILE MACHINE OPERATOR-D) in place (~09/2015) History of arthroplasty of finger of left hand History of colonoscopy History of left heart catheterization (09/22/15) S/P TURP Splenic artery aneurysm Status post laser lithotripsy of ureteral calculus Social History household members: spouse Smoking Status: Never smoker alcohol intake: never substance use type: does not use caffeine: Yes Type: coffee Number of servings: 3 ROS ROS Narrative Constitutional: Reports severe fatigue and weakness. No fever. HEENT: Reports systems reviewed and no addt'l complaints, except as documented Respiratory/Chest:No acute shortness of breath or respiratory distress or wheezing. CVS: Recent admission for heart failure exacerbation. Rest described in HPI Gastrointestinal: No abdominal pain. Denies acute alteration of bowel habit. Rest as described in HPI. No hematemesis melena Genitourinary: Denies burning urination or new urinary tract symptoms Musculoskeletal: Denies acute joint pain or limited range of motion. No acute injury. Chronic arthritis Neurologic: Denies seizure-like symptoms. skin: No ulcer. No rash Endocrinology: Reports systems reviewed and no addt'l complaints, except as documented Hematologic/Lymphatic: Reports systems reviewed and no addt'l complaints, except as documented Rest 14 ROS are negative except as mentioned in HPI Vital Signs Vital Signs Vital Signs: 08/16/23 11:35 08/16/23 12:17 08/16/23 13:35 Temperature 98 F Temperature Source Temporal Pulse Rate 61 67 Respiratory Rate 14 18 Respiratory Effort Normal Respiratory Pattern Normal Blood Pressure 118/54 L 117/59 L Blood Pressure Mean 75 78 Pulse Ox 96 96 Oxygen Delivery Method Room Air Room Air Physical Exam Narrative General: Alert, Oriented x3, Cooperative HEENT: Atraumatic, PERRLA, EOMI, Normocephalic Oral: No Gingival or Mucosal Lesions/ Ulcerations Neck: Supple, No JVD, Negative Carotid Bruits Chest wall/Lungs: Air entry diminished in bilateral lung bases. No crepitation/rhonchi Cardiovascular: Paced rhythm, left upper chest AICD.No M/G/R Abdomen: Bowel Sounds Present, Soft, Non Tender, Non-Distended : No dysuria. No renal angle tenderness. No suprapubic tenderness. Extremities: No edema, Capillary Refill Less than 3 Seconds Skin: No rashes, No breakdown Musculoskeletal: No Tenderness to Palpation of Joints or Extremities. Degenerative arthritis of knees and hip joints Neurological: Cranial nerves II-XII grossly intact, DTR 2+/4. No acute focal neurological deficit. Psych/Mental Status: Normal Affect, Appropriate. Results Lab / Micro Data 08/16/23 12:00 08/16/23 12:00 Labs: Laboratory Results - last 24 hr 08/16/23 12:00: WBC 57.8 H*, RBC 3.99 L, Hgb 10.7 L, Hct 35.5 L, MCV 89.0, MCH 26.8 L, MCHC 30.1 L, RDW Std Deviation 57.1 H, RDW Coeff of Willie 17.7 H, Plt Count 272, MPV 10.1, Immature Gran % (Auto) 0.300, Neut % (Auto) 11.5 L, Lymph % (Auto) 85.8 H, [place] % (Auto) 1.7, Eos % (Auto) 0.3, Baso % (Auto) 0.4, Absolute Neuts (auto) 6.7, Absolute Lymphs (auto) 49.61 H, Nucleated RBC % 0, Differential Comment SCANNED, Diff Path Review May foll, Sodium 141, Potassium 3.8, Chloride 106, Carbon Dioxide 33.0 H, Anion Gap 2 L, BUN 54 H, Creatinine 2.05 H, Est GFR (MDRD) Af Amer 40 L, Est GFR (MDRD) Non-Af 33 L, BUN/Creatinine Ratio 26.3 H, Glucose 140 H, Calcium 9.0, Total Bilirubin 0.40, AST 19, ALT 24, Alkaline Phosphatase 87, Troponin I High Sens 17, Total Protein 5.8 L, Albumin 3.3, Globulin 2.5, Albumin/Globulin Ratio 1.3, Lipase 15 08/16/23 13:00: Urine Color Yellow, Urine Clarity Clear, Urine pH 6.5, Ur Specific [place] 1.010, Urine Protein 15 H, Urine Glucose (UA) Normal, Urine Ketones Negative, Urine Occult Blood Negative, Urine Nitrite Negative, Urine Bilirubin Negative, Urine Urobilinogen Normal, Ur Leukocyte Esterase 100 H, Urine RBC 0 SEEN, Urine WBC 5-10 SEEN, Ur Squamous Epith Cells 0 SEEN, Urine Bacteria 0 SEEN, Urine Mucus 0 SEEN Micro: Microbiology 08/16/23 12:10 Mucosa - Nose SARS-CoV-2, Influenza & RSV (PCR) - Final Imaging Radiology Impression Brain CT 08/16/23 11:57 IMPRESSION: Chronic involutional changes of the brain. Electronically Signed: Gerson Watkins MD at 12:51 EDT , Chest X-Ray 08/16/23 12:22 IMPRESSION: Hyperinflation. No acute abnormality is seen. Electronically Signed: Gerson Watkins MD at 12:52 EDT , Assessment & Plan Assessment/Plan (1) Weakness: (2) Nausea & vomiting: QUALIFIERS: Vomiting type: unspecified Qualified Code(s): R11.2 - Nausea with vomiting, unspecified (3) Chronic HFrEF (heart failure with reduced ejection fraction): PLAN: Plan This 83-year-old gentleman being admitted for generalized fatigue and weakness nausea and vomiting. 1. Acute dehydration associated with nausea and vomiting, exact etiology unclear: Patient is being admitted on MedSurg floor. Conservative IV fluid normal saline ordered as patient recently admitted for HFrEF exacerbation. I feel mild to be gabapentin 200 mg at bedtime may be the potential cause although unclear. Will decrease the dose to gabapentin 100 mg at bedtime. 2. Fatigue and generalized weakness with restricted ADL to mobility/adult failure to thrive: Patient uses cane for walking but gets easily fatigued while doing ADLs. PT and OT ordered. nursing manager consulted. 3. Recent admission for acute on chronic HFrEF: Currently patient not having signs and symptoms of acute heart failure. Resume Lasix from tomorrow. Home heart failure medications including carvedilol and Entresto continued. 4. CKD stage IIIb: Patient baseline creatinine runs between 1.8-2.4. Currently it is 2.05 BUN 54, on baseline. BUN slightly elevated. 5. CLL: Patient follows Dr. Osborn an outpatient diagnosis in 2003. Patient chronically has elevated leukocytosis mainly lymphocytes 85%. ALC about 50,000. 6. Chronic normocytic anemia: Hemoglobin is 10.7/35% on baseline. Patient is on ferrous sulfate. 7. History of bilateral hydronephrosis secondary to acute [place] complicated UTI with history of nephrolithiasis and urine retention during recent admission: Patient on Flomax continued. Follows urologist as an outpatient. 8. Other multiple comorbidities include hypertension, dyslipidemia, history of prostate cancer diagnosed in 2016, history of subdural hematoma and neuropathy: Chronic conditions. Multiple comorbidities complicates the present care and expect difficult and delay recovery Living will/advanced directive/end of life care: Patient does have living will or advanced directive. Her daughter is power of immigration attorney for health. After discussion of benefits/risks procedures involved with full code, DNR CC arrest and DNR CC, the patient, her daughter and son all in agreement with DNR CC arrest with no intubation. Patient doesn't want artificial life support including intubation, tube feed, ventilator and/chest compression, central venous catheter, vasopressor and DC shock if needed Total time spent in [id number] encounter in discussion of advanced directive 17 minutes. Microbiology Past 72 Hours 08/16/23 12:10 Mucosa - Nose SARS-CoV-2, Influenza & RSV (PCR) - Final Laboratory Results 08/16/23 12:00: WBC 57.8 H*, RBC 3.99 L, Hgb 10.7 L, Hct 35.5 L, MCV 89.0, MCH 26.8 L, MCHC 30.1 L, RDW Std Deviation 57.1 H, RDW Coeff of Willie 17.7 H, Plt Count 272, MPV 10.1, Immature Gran % (Auto) 0.300, Neut % (Auto) 11.5 L, Lymph % (Auto) 85.8 H, [place] % (Auto) 1.7, Eos % (Auto) 0.3, Baso % (Auto) 0.4, Absolute Neuts (auto) 6.7, Absolute Lymphs (auto) 49.61 H, Nucleated RBC % 0, Differential Comment SCANNED, Diff Path Review September, Sodium 141, Potassium 3.8, Chloride 106, Carbon Dioxide 33.0 H, Anion Gap 2 L, BUN 54 H, Creatinine 2.05 H, Est GFR (MDRD) Af Amer 40 L, Est GFR (MDRD) Non-Af 33 L, BUN/Creatinine Ratio 26.3 H, Glucose 140 H, Calcium 9.0, Total Bilirubin 0.40, AST 19, ALT 24, Alkaline Phosphatase 87, Troponin I High Sens 17, Total Protein 5.8 L, Albumin 3.3, Globulin 2.5, Albumin/Globulin Ratio 1.3, Lipase 15 08/16/23 13:00: Urine Color Yellow, Urine Clarity Clear, Urine pH 6.5, Ur Specific [place] 1.010, Urine Protein 15 H, Urine Glucose (UA) Normal, Urine Ketones Negative, Urine Occult Blood Negative, Urine Nitrite Negative, Urine Bilirubin Negative, Urine Urobilinogen Normal, Ur Leukocyte Esterase 100 H, Urine RBC 0 SEEN, Urine WBC 5-10 SEEN, Ur Squamous Epith Cells 0 SEEN, Urine Bacteria 0 SEEN, Urine Mucus 0 SEEN Clinical Impression(s) from Imaging Studies Brain CT 08/16/23 11:57 IMPRESSION: Chronic involutional changes of the brain. Chest X-Ray 08/16/23 12:22 IMPRESSION: Hyperinflation. No acute abnormality is seen. Charges/Coding Visit Charges Inpatient E&M: 07554 Init Hosp L3 Procedures Hospitalists Procedures: 71808 Advncd Care Plan 30 Min
[2023-08-16] MEDS: 0.9% Normal Saline (1000mL) 1,000 ML 75 ML IV (14:37)
[2023-08-16 14:42] LABS: Magnesium 2.3 mg/dL (1.6-2.6)
[2023-08-16] MEDS: proCHLORPERazine 10 MG/2 ML Vial 5 MG IV (17:21)
[2023-08-16] MEDS: Carvedilol 25 MG Tablet PO (23:14)
[2023-08-16] MEDS: Senna/Docusate Sodium 1 Tablet 2 TABLET PO (23:14)
[2023-08-16] MEDS: SACUBITRIL/VALSARTAN 49-51 MG TABLET 1 EACH PO (23:14)
[2023-08-16] MEDS: Gabapentin 100 MG Capsule PO (23:21)
[2023-08-17 03:51] VITALS: BP 155/71; PULSE 66; RESP 18; TEMP 36.6; O2SAT 94
[2023-08-17] MEDS: Enoxaparin 30 MG/0.3 ML Syringe SC (06:20)
[2023-08-17 06:58] VITALS: O2SAT 95
[2023-08-17 07:39] LABS: Absolute Lymphocyte Count 47.98 X10^3/uL (0.83-4.51); Absolute Neutrophil Count 5.2 X10^3/uL (2.0-7.7); Basophil% 0.2 % (0-1); Eosinophil# 0.29 X10^3/uL; Eosinophils% 0.5 % (0-5); Hematocrit 34.3 % (40-54); Hemoglobin 10.1 g/dL (13.0-16.5); Lymphocyte # 47.98 X10^3/ul (0.83-4.51); Lymphocyte % 86.6 % (19-41); Mean Corp Hgb Conc 29.4 g/dL (32-36); Mean Corpuscular Hgb 26.1 pg (27.0-32.0); Mean Corpuscular Volume 88.6 fL (80-94); Mean Platelet Vol. 10.9 fl (6.2-12.0); Monocyte# 1.66 X10^3/uL; NRBC Flagged by Analyzer 0 % (0-5); Neutrophil % 9.4 % (47-70); POSITIVE COUNT YES; POSITIVE DIFFERENTIAL YES; POSITIVE MORPHOLOGY YES; Platelet Count 254 K/mm3 (150-450); RBC Distribution Width CV 17.7 % (11.6-14.6); RBC Distribution Width SD 57.1 fl (35.1-43.9); Red Blood Count 3.87 M/mm3 (4.6-6.2)
[2023-08-17 07:48] LABS: Differential Indicated SCAN CRITERIA MET
[2023-08-17 07:53] LABS: White Blood Count 55.4 K/mm3 (4.4-11.0)
[2023-08-17 08:08] LABS: Anion Gap 5 (5-15); BUN 45 mg/dL (7-18); BUN/Creat Ratio 24.7 RATIO (10-20); Calcium,Total 9.1 mg/dL (8.5-10.1); Chloride 110 mmol/L (98-107); Creatinine, Serum 1.82 mg/dL (0.70-1.30); EST Glomerular Filtration Rate 38 mL/min (>60); Est Glom Filt Rate - Afr Amer 46 mL/min (>60); Estimated Creatinine Clearance 30.46 ml/min; Glucose 118 mg/dL (74-106); Potassium 3.5 mmol/L (3.5-5.1); Sodium Level 144 mmol/L (136-145)
[2023-08-17 09:43] LABS: BNP,B-Type NATRIURETIC PEPTIDE 616.4 pg/mL (0-100)
[2023-08-17 10:00] VITALS: BP 128/55; PULSE 57; RESP 15; TEMP 36.3; O2SAT 96
[2023-08-17] MEDS: Carvedilol 25 MG Tablet PO ×2 (10:30→22:23)
[2023-08-17] MEDS: Furosemide 40 MG Tablet PO (10:30)
[2023-08-17] MEDS: Potassium Chloride Oral Tablet 10 MEQ PO (10:30)
[2023-08-17] MEDS: Iron Polysaccharide Complex 150 MG CAPSULE PO (10:30)
[2023-08-17] MEDS: Atorvastatin Calcium 10 MG Tablet PO (10:30)
[2023-08-17] MEDS: Senna/Docusate Sodium 1 Tablet 2 TABLET PO ×2 (10:30→22:58)
[2023-08-17] MEDS: Cholecalciferol (VIT D3) 25 MCG TABLET (1,000 UNITS) 50 MCG PO (10:30)
[2023-08-17] MEDS: SACUBITRIL/VALSARTAN 49-51 MG TABLET 1 EACH PO ×2 (10:30→22:34)
--- NOTE | 2023-08-17 12:59 | CASEMGMT ---
Readmission Note: Index: 08/07/23-08/10/23. Dx: CHF Exacerbation Readmission: 08/16/23. Dx: N/V Pt with a history of CKD stage III, HTN, HFrEF, high cholesterol, VT, and ventricular tachycardia was admitted on the above noted dates for the corresponding dx?s. On index admission, the pt was admitted for acute on chronic HFrEF and had full workup done and discharged on guideline directed heart failure medications. Pt was discharged with CCN and a walker. RAMONITA MARTINEZ to pt room at this time. Pt daughter at bedside. 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 Pt states that he saw his PCP on Sunday. Pt states that his appt with the transcribing operator head is on the . Pt also reports that he has been weighing himself daily. Pt is aware and states that he has been adhering to the diet restrictions/ recommendations given at discharge. Pt states that it has not been hard to follow the fluid restrictions d/t his nausea. Pt came to [facility] ER with generalizes weakness and N/V. Pt and the pt daughter are wanting the pt to DC to a SNF. However, the pt has done great with therapy and PT is not recommending any additional therapy. LORI Mcneill explained to the pt and the pt daughter that if the pt were to go to a SNF, the pt insurance would most likely not approve and the pt would have to self pay. Dr. Sanches notified that the pt did well with therapy. Dr. Sanches to pt room at this time. The MD states that the pt will not be medically ready until at least tomorrow d/t the intractable N/V. Dr. Sanches states to this RAMONITA MARTINEZ and LORI that the pt is wanting to go to a SNF regardless if he has to self pay or not. SW is aware and to follow for safe DC from [facility]. PLAN: Self pay to SNF
[2023-08-17 13:10] LABS: Pathologist Review Reviewed
[2023-08-17] MEDS: Ondansetron 4 MG/2 ML Vial IV (13:42)
[2023-08-17] MEDS: 0.9% Saline Lock 10 ML Syringe IV ×2 (13:42→18:49)
[2023-08-17 14:00] VITALS: BP 117/62; PULSE 60; RESP 14; TEMP 36.7; O2SAT 95
--- NOTE | 2023-08-17 14:36 | CASEMGMT ---
Addendum entered by Charito Gallardo 08/17/23 16:43: Social Work Pt has been accepted at [facility], private pay. Pt, Pt's dgt and pt's son notified and agreeable. Pt's son Kee [phone] will transport to [facility] when pt is medically ready. Green sheet on chart to facilitate a weekend discharge. Physician updated. Plan: [facility], when medically ready CARLEY Majano Original Note: Social Work SW met with pt and his daughter Renuka and introduced self and role of SW. Pt lives at home with his who is recovering from back surgery. Pt has 4 children who do not live local and are unable to assist. Pt is a hospital readmission. Pt feels he cannot return home at this time and will need short term SNF placement. SW reviewed therapy notes with pt and dgt and updated that pt ambulated 400 ft SBA and transferred at SBA. LORI informed pt and family that pt does not qualify for SNF stay under insurance. Options discussed including return home with home health care vs. private pay at SNF. After consideration and speaking with family pt and dgt requesting private pay in a nursing facility. A list of SNF providers including quality and resource use data and consistent with the patient?s preferred geographic region, medical needs, and insurance network were provided from the [employer] Guide. Pt preferred provider is [facility] and [facility]. Referrals sent to both facilities. SW will await determination of acceptance. Plan: [facility] or [facility], pending acceptance CARLEY Majano
--- NOTE | 2023-08-17 15:59 | PN.HOSP_ITS ---
Reason for Visit Reason for Visit: Diagnoses Chronic systolic (congestive) heart failure (08/16/23) Nausea with vomiting, unspecified (08/16/23) Weakness (08/16/23) Subjective Subjective No acute events overnight. Patient seen at bedside this morning. Sitting up comfortably in bedside chair, conversing normally, no acute distress. Patient stated that he ate some breakfast and tolerated this without issue. Denied any nausea at that time. He reported feeling somewhat weak this morning, had not worked with physical therapy yet to that point. Denied any other acute concerns. Saw patient again this afternoon and daughter was present. Was noted that patient had a significant episode of vomiting around noon. Had not eaten since breakfast and stated that he felt fairly nauseous for 15 minutes or so prior to vomiting. Has not tried eating since that episode of vomiting. Patient notably did work with PT and OT and did quite well ambulating around the floor. In talking with daughter, she notes that the patient has had these episodes of nausea and vomiting fairly consistently over the past few weeks. He has never had this consistently before. Has had fairly normal bowel movements throughout that time. Patient states that between episodes of nausea vomiting he feels fairly well. Has been eating slightly less food than normal but initially tolerates food well, then has nausea with vomiting a few hours later. He denies any symptoms of acid reflux. Denies any dysphagia symptoms. Denies any pain with eating or anytime after eating. No other acute concerns at this time. Objective Data Objective Data Vital Signs: Vital Signs Temp Pulse Resp BP Pulse Ox O2 Del Method 98.1 F 60 14 117/62 95 Room Air 08/17/23 14:00 08/17/23 14:00 08/17/23 14:00 08/17/23 14:00 08/17/23 14:00 08/17/23 14:00 Oxygen Delivery Method Room Air Weight: 72.575 kg Body Mass Index (BMI) 22.9 Intake & Output: Intake and Output for Last 24 Hours 08/15/23 08/16/23 08/17/23 23:59 23:59 23:59 Intake Total 1128.75 / 1128.75 0 / 0 Balance 1128.75 / 1128.75 0 / 0 Medical Nutrition Assessment Dietitian: Malnutrition Criteria Met Start: 08/17/23 13:12 Freq: Status: Active Protocol: Document 08/17/23 13:13 IVAN (Rec: 08/17/23 13:13 [facility] Desktop) Nutrition Malnutrition Evidence of Malnutrition Exists Yes Malnutrition (severe): Acute Illness/Injury Evidenced By Suboptimal Energy Intake ( Severe),Weight Loss (Severe) Clinical Problem Acute Disease or Injury Related Malnutrition Etiology related to GI dysfunction, therapeutic diet and inadequate energy intake Signs/Symptoms as evidenced by n/v since discharge from hospital 08/09 w / 7% wt loss and po intake meeting <75% of est nutritional needs Status Active Problem Recommendation Dietitian Recommendations/Changes Will change diet to Cardiac/ Sodium Restricted w/ Ensure Compact at meals - suggest fluid restriction if indicated by MD Available if additional diet education desired prior to d/c . Lab / Micro Data 08/17/23 06:10 08/17/23 06:10 Labs: Laboratory Results - last 24 hr 08/16/23 12:00: Diff Path Review Reviewed 08/17/23 06:10: WBC 55.4 H*, RBC 3.87 L, Hgb 10.1 L, Hct 34.3 L, MCV 88.6, MCH 26.1 L, MCHC 29.4 L, RDW Std Deviation 57.1 H, RDW Coeff of Willie 17.7 H, Plt Count 254, MPV 10.9, Immature Gran % (Auto) 0.300, Neut % (Auto) 9.4 L, Lymph % (Auto) 86.6 H, [place] % (Auto) 3.0, Eos % (Auto) 0.5, Baso % (Auto) 0.2, Absolute Neuts (auto) 5.2, Absolute Lymphs (auto) 47.98 H, Nucleated RBC % 0, Differential Comment COMMENT, Diff Path Review May foll, Sodium 144, Potassium 3.5, Chloride 110 H, Carbon Dioxide 29.0, Anion Gap 5, BUN 45 H, Creatinine 1.82 H, Estim Creat Clear Calc 30.46, Est GFR (MDRD) Af Amer 46 L, Est GFR (MDRD) Non-Af 38 L, BUN/Creatinine Ratio 24.7 H, Glucose 118 H, Calcium 9.1, B- Natriuretic Peptide 616.4 H Micro: Microbiology 08/16/23 12:10 Mucosa - Nose SARS-CoV-2, Influenza & RSV (PCR) - Final Physical Exam Const alert, oriented x3, no apparent distress and average body habitus Constitutional Narrative: Pleasant elderly male, sitting up comfortably in bedside chair, conversing normally, no acute distress. General Appearance: cooperative and comfortable HEENT normocephalic, head/scalp atraumatic, hearing grossly normal bilaterally and nasal mucous membranes and turbinates normal Eyes PERRL, EOMs intact bilaterally and conjunctivae normal Neck full ROM Chest inspection of chest normal Resp normal respiratory effort, normal air movement, no use of accessory muscles and clear to auscultation bilaterally Cardio regular rate, regular rhythm, no murmurs and peripheral pulses 2+ throughout GI normal to inspection, nondistended, normoactive bowel sounds, soft to palpation, non-tender and non-distended Back/Spine normal ROM Extremity normal to inspection, full ROM and no pedal edema Skin no rashes or lesions noted Neuro moves all extremities and no focal motor deficits Speech: speech normal Psych mental status grossly normal Assessment & Plan Assessment/Plan (1) Nausea & vomiting: QUALIFIERS: Vomiting type: unspecified Qualified Code(s): R11.2 - Nausea with vomiting, unspecified (2) Weakness: PLAN: Plan Patient is an 83-year-old male who presented to [facility] ED on 08/16/2023 with worsening weakness at home and recurrent episodes of nausea with vomiting. 1. Recurrent episodes of nausea with vomiting Unclear etiology at this time. Reportedly has had episodes of nausea with vomiting in the mornings most days for the past few weeks prior to admission. Had similar episode a few hours after eating breakfast on morning of 08/16. Normal bowel movements during that time. No symptoms of acid reflux or dy sphagia. No pain with eating or anytime after eating. Does not seem to have any offending medications on med list. ? GI consulted. CT abdomen pelvis with oral contrast ordered on 08/16. N.p.o. at midnight for possible gastric emptying study plus or minus EGD tomorrow. 2. Weakness ? PT/OT/case management following. Patient did very well with therapy on 08/16, walked several hundred feet with minimal assistance. However, on discussion with patient's daughter they have strong concern with him going home given his recurrent episodes of nausea with vomiting as noted above, and patient's is having back surgery soon and patient will have very minimal help at home. Family likely planning to have patient placed in SNF on discharge, even if this requires private pay. Will continue to follow. 3. HFrEF with recent hospitalization for heart failure exacerbation ? See discharge summary from 08/10/2023 for further details. Patient appeared euvolemic on admission. Chest x-ray with hyperinflation, no other abnormalities, no volume overload. BNP 616 on admit, much improved from BNP 4227 on 08/06. Continue home p.o. Lasix 40 mg daily, Coreg 25 mg twice daily, Entresto twice daily. 4. CKD stage IIIb ? Creatinine 2.05 on admit, baseline creatinine 1.8-2.2. Stable at baseline. Adequate urine output reported. 5. CLL ? WBC count 57 on admit, baseline WBC count 52 to 62, leukocyte predominant. Diagnosed back in 2003, follows with Dr. Osborn in outpatient setting. Stable at baseline. Chronic medical conditions: ? Chronic normocytic anemia: Hemoglobin 10.7 on admit, baseline hemoglobin 9-11. Stable at baseline. ? History of bilateral hydronephrosis secondary to complicated UTI with nephrolithiasis and urinary retention during recent hospitalization: Good urine output reported since admission. Not on any home medications for urinary retention. Stable. ? Hypertension: Continue home Coreg, Entresto, Lasix. ? Hyperlipidemia: Continue home statin. ? Neuropathy: Continue home gabapentin. ? History of prostate cancer ? History of subdural hematoma DVT prophylaxis: Heparin subcu CODE STATUS: DNR CCA, DNI Expected disposition: SNF, TBD Total clinical time spent by myself addressing the patient's medical issues, reviewing all the data, and collaborating with patient's care team: 35 minutes. Charges/Coding Visit Charges Inpatient E&M: 21367 Subs Hosp L2
--- NOTE | 2023-08-17 16:08 | CHAPLAIN ---
Type of Pastoral Visit _x__ Initial Visit ___ Follow-up Visit ___ On-call Visit ___ General Patient Visit ___ Spiritual Assessment ___ Family Conference ___ Bereavement ___ Rapid Response ___ Code Blue ___ Other (describe below) Pastoral Care Referral From _x__ Patient ___ Family ___ Nurse ___ Physician ___ Automatic Nailing Machine Feeder ___ Ladle Filler ___ Other (describe below) Sacrament/Intervention ___ Active listening ___ Anointing ___ Denominational ___ Bereavement ___ Communion ___ Dipika exploration ___ ___ Life review ___ Prayer ___ Reconciliation ___ Sacrament of Sick _x__ Supportive presence ___ Wedding ___ Other (describe below) Pastoral Comments this was a brief offer of support and moments of presence to give support for patient; pt remembers this behavioral health technician from previous visits; pt needed assistance from SHIP CLEANER for the bathroom and the visit ended; due to time limits this behavioral health technician was unable to return to the room
--- NOTE | 2023-08-17 18:26 | CT_ITS ---
INDICATION: intractable nausea/vomiting, unclear etiology EXAMINATION: CT ABDOMEN AND PELVIS WITHOUT CONTRAST - CT Abdomen And Pelvis W/O Contrast Injection TECHNIQUE: Helically acquired images were obtained of the abdomen and pelvis without oral or IV contrast. A radiation dose optimization technique was used for this scan. IV Contrast dosage and agent: None. Oral contrast: Oral Gastrografin administered. COMPARISON: None. FINDINGS: LOWER CHEST: Basilar atelectasis. Mild cardiomegaly with partially seen AICD. LIVER: Homogeneous with scattered small hepatic cysts. No focal mass. GALLBLADDER AND BILIARY TREE: No calcified gallstones. No gallbladder distension or wall edema. No intra- or extrahepatic biliary ductal dilation. PANCREAS: No focal cystic or solid mass. SPLEEN: Normal size without focal cystic or solid mass. ADRENAL GLANDS: No nodules. KIDNEYS AND URETERS: Severe left and moderate right hydronephrosis and hydroureter extending into a mildly distended bladder. PERITONEUM: No ascites or free air. No other fluid collection. BOWEL: No acute gastric finding. No small bowel distention or focal wall thickening. Normal appendix. Mild cecal colonic wall thickening LYMPH NODES: No enlarged mesenteric or retroperitoneal lymph nodes. VESSELS: Aortic atherosclerosis without ectasia. URINARY BLADDER: Distended bladder without focal wall thickening. REPRODUCTIVE ORGANS: Scattered prostate radiation beads ABDOMINAL WALL: Small fat-containing umbilical hernia with minimal hernia fluid CT/Abdomen/Pel W ORAL Cont Only IMPRESSION: Distended bladder with severe left and moderate right hydronephrosis concerning for urinary retention. Prosthetic radiation beads also noted. No bowel obstruction. Large colonic stool burden as can be seen with constipation. Focal mild wall thickening of the gastric ascending colon likely represents peristalsis. Electronically Signed: Eulalio Hatfield MD at 1:32 EDT ,
[2023-08-17] MEDS: proCHLORPERazine 10 MG/2 ML Vial 5 MG IV (18:50)
[2023-08-17 22:00] VITALS: BP 167/68; PULSE 64; RESP 18; TEMP 36.7; O2SAT 95
[2023-08-17] MEDS: Gabapentin 100 MG Capsule PO (22:23)
[2023-08-17] MEDS: Heparin Injection (Vial) 5,000 UNIT/ML VIAL 5000 UNIT SC (22:24)
[2023-08-18 05:00] VITALS: BP 148/64; PULSE 62; RESP 16; TEMP 36.8; O2SAT 95
[2023-08-18 05:52] LABS: Hematocrit 32.2 % (40-54); Mean Corp Hgb Conc 31.1 g/dL (32-36); Mean Corpuscular Hgb 27.1 pg (27.0-32.0); Mean Corpuscular Volume 87.3 fL (80-94); Mean Platelet Vol. 10.1 fl (6.2-12.0); POSITIVE COUNT YES; Platelet Count 238 K/mm3 (150-450); RBC Distribution Width CV 17.4 % (11.6-14.6); RBC Distribution Width SD 55.4 fl (35.1-43.9); Red Blood Count 3.69 M/mm3 (4.6-6.2)
[2023-08-18 06:07] LABS: Anion Gap 4 (5-15); BUN 37 mg/dL (7-18); BUN/Creat Ratio 20.7 RATIO (10-20); Calcium,Total 8.6 mg/dL (8.5-10.1); Chloride 108 mmol/L (98-107); Creatinine, Serum 1.79 mg/dL (0.70-1.30); EST Glomerular Filtration Rate 39 mL/min (>60); Est Glom Filt Rate - Afr Amer 47 mL/min (>60); Estimated Creatinine Clearance 30.97 ml/min; Glucose 106 mg/dL (74-106); Potassium 3.9 mmol/L (3.5-5.1); Sodium Level 142 mmol/L (136-145)
[2023-08-18 06:35] LABS: White Blood Count 51.7 K/mm3 (4.4-11.0)
[2023-08-18 06:44] LABS: ERROR RESULT FLAG NO
[2023-08-18 06:45] LABS: Differential Comment SCANNED; Scan Indicated on CBC? Y/N YES- FLAGS NOTED
[2023-08-18 08:11] VITALS: O2SAT 95
[2023-08-18 10:00] VITALS: BP 159/69; PULSE 63; RESP 18; TEMP 37; O2SAT 96
[2023-08-18] MEDS: Bisacodyl 10 MG Suppository RC (10:08)
[2023-08-18] MEDS: Carvedilol 25 MG Tablet PO ×2 (10:08→21:19)
[2023-08-18] MEDS: Polyethylene Glycol 3350 17 GM PACKET PO (10:09)
[2023-08-18] MEDS: SACUBITRIL/VALSARTAN 49-51 MG TABLET 1 EACH PO ×2 (10:10→21:21)
[2023-08-18] MEDS: Heparin Injection (Vial) 5,000 UNIT/ML VIAL 5000 UNIT SC (10:10)
[2023-08-18] MEDS: Senna/Docusate Sodium 1 Tablet 2 TABLET PO ×2 (10:10→21:20)
[2023-08-18] MEDS: Furosemide 40 MG Tablet PO (11:00)
--- NOTE | 2023-08-18 11:16 | PN.HOSP_ITS ---
Reason for Visit Reason for Visit: Diagnoses Chronic systolic (congestive) heart failure (08/16/23) Nausea with vomiting, unspecified (08/16/23) Weakness (08/16/23) Subjective Subjective Patient had CT abdomen pelvis with oral contrast done yesterday evening, was found to have large colonic stool burden likely secondary to constipation, focal mild wall thickening of gastric ascending colon likely representing peristalsis, and distended bladder with severe left and moderate right hydronephrosis concerning for urinary retention. Patient seen at bedside this morning, daughter was also listening in over the phone. Patient noted that he had a small hard bowel movement this morning and he has had difficulty with having bowel movements over the past few weeks. He denied any pain or discomfort with urination or any suprapubic pain at this time. He was n.p.o. this morning for possible EGD versus small bowel follow-through study, still had a mild degree of nausea but no episodes of vomiting, did not feel very hungry even when I saw him later in the morning. No other acute concerns today. Objective Data Objective Data Vital Signs: Vital Signs Temp Pulse Resp BP Pulse Ox O2 Del Method 98.6 F 63 18 159/69 H 96 Room Air 08/18/23 10:00 08/18/23 10:00 08/18/23 10:00 08/18/23 10:00 08/18/23 10:00 08/18/23 10:00 Oxygen Delivery Method Room Air Weight: 72.575 kg Body Mass Index (BMI) 22.9 Intake & Output: Intake and Output for Last 24 Hours 08/16/23 08/17/23 08/18/23 23:59 23:59 23:59 Intake Total 1128.75 / 1128.75 0 / 0 Balance 1128.75 / 1128.75 0 / 0 Medical Nutrition Assessment Dietitian: Malnutrition Criteria Met Start: 08/17/23 13:1 2 Freq: Status: Active Protocol: Document 08/17/23 13:13 IVAN (Rec: 08/17/23 13:13 IVAN Desktop) Nutrition Malnutrition Evidence of Malnutrition Exists Yes Malnutrition (severe): Acute Illness/Injury Evidenced By Suboptimal Energy Intake ( Severe),Weight Loss (Severe) Clinical Problem Acute Disease or Injury Related Malnutrition Etiology related to GI dysfunction, therapeutic diet and inadequate energy intake Signs/Symptoms as evidenced by n/v since discharge from hospital 08/09 w / 7% wt loss and po intake meeting <75% of est nutritional needs Status Active Problem Recommendation Dietitian Recommendations/Changes Will change diet to Cardiac/ Sodium Restricted w/ Ensure Compact at meals - suggest fluid restriction if indicated by MD Available if additional diet education desired prior to d/c . Lab / Micro Data 08/18/23 05:30 08/18/23 05:30 Labs: Laboratory Results - last 24 hr 08/16/23 12:00: Diff Path Review Reviewed 08/18/23 05:30: WBC 51.7 H*, RBC 3.69 L, Hgb 10.0 L, Hct 32.2 L, MCV 87.3, MCH 27.1, MCHC 31.1 L D, RDW Std Deviation 55.4 H, RDW Coeff of Willie 17.4 H, Plt Count 238, MPV 10.1, Differential Comment SCANNED, Diff Path Review September, Sodium 142, Potassium 3.9, Chloride 108 H, Carbon Dioxide 30.0, Anion Gap 4 L, BUN 37 H, Creatinine 1.79 H, Estim Creat Clear Calc 30.97, Est GFR (MDRD) Af Amer 47 L, Est GFR (MDRD) Non-Af 39 L, BUN/Creatinine Ratio 20.7 H, Glucose 106, Calcium 8.6 Micro: Microbiology 08/16/23 12:10 Mucosa - Nose SARS-CoV-2, Influenza & RSV (PCR) - Final Radiography Diagnostic Testing: Radiology Impression Abdomen CT 08/17/23 18:26 IMPRESSION: Distended bladder with severe left and moderate right hydronephrosis concerning for urinary retention. Prosthetic radiation beads also noted. No bowel obstruction. Large colonic stool burden as can be seen with constipation. Focal mild wall thickening of the gastric ascending colon likely represents peristalsis. Electronically Signed: Eulalio Hatfield MD at 1:32 EDT , Physical Exam Const alert, oriented x3, no apparent distress and average body habitus Constitutional Narrative: Pleasant elderly male, sitting up comfortably in bed, conversing normally, no acute distress. General Appearance: cooperative and comfortable HEENT normocephalic, head/scalp atraumatic, hearing grossly normal bilaterally and nasal mucous membranes and turbinates normal Eyes PERRL, EOMs intact bilaterally and conjunctivae normal Neck full ROM Chest inspection of chest normal Resp normal respiratory effort, normal air movement, no use of accessory muscles and clear to auscultation bilaterally Cardio regular rate, regular rhythm, no murmurs and peripheral pulses 2+ throughout GI normal to inspection, nondistended, normoactive bowel sounds, soft to palpation, non-tender and non-distended no CVA tenderness Bladder / Kidney Exam: No catheter in place and bladder normal to palpation Back/Spine normal ROM Extremity normal to inspection, full ROM and no pedal edema Skin no rashes or lesions noted Neuro moves all extremities and no focal motor deficits Speech: speech normal Psych mental status grossly normal Assessment & Plan Assessment/Plan (1) Nausea & vomiting: QUALIFIERS: Vomiting type: unspecified Qualified Code(s): R11.2 - Nausea with vomiting, unspecified (2) Weakness: (3) Constipation: (4) Hydronephrosis: PLAN: Plan Patient is an 83-year-old male who presented to [facility] ED on 08/16/2023 with worsening weakness at home and recurrent episodes of nausea with vomiting. 1. Recurrent episodes of nausea with vomiting suspected due to constipation Unclear etiology at this time. Reportedly has had episodes of nausea with vomiting in the mornings most days for the past few weeks prior to admission. Had similar episode a few hours after eating breakfast on morning of 08/16. Normal bowel movements during that time. No symptoms of acid reflux or dysphagia. No pain with eating or anytime after eating. Does not seem to have any offending medications on med list. CT abdomen pelvis with oral contrast on 08/16 showed large colonic stool burden likely secondary to constipation, focal mild wall thickening of gastric ascending colon likely representing peristalsis. ? GI consulted. Started heavy bowel regimen on 08/17 including senna/docusate 2 tablets twice daily, MiraLAX daily, Dulcolax suppository daily for 3 days. Pending response, can give enemas as needed as well. Patient okay for diet, will treat constipation for now and hold on any further GI studies such as gastric emptying study or EGD for now. Appreciate GI recs. 2. Severe bilateral hydronephrosis with concern for urinary retention; history of bilateral hydronephrosis secondary to complicated UTI with nephrolithiasis CT abdomen pelvis on 08/16 showed a distended bladder with severe left and moderate right hydronephrosis concerning for urinary retention. Patient notably has had decent urine output per nursing staff and denies any suprapubic pain, pain or discomfort with urination, CVA tenderness. Has been hemodynamically stable and denies fevers or chills. UA on admit noninfectious appearing. ? Urology consulted. Will plan to straight cath today and see how much urine is removed with this. Okay to continue home diuretics as noted below. Appreciate further urology recommendations. 3. Weakness ? PT/OT/case management following. Patient did well with therapy on 08/16, walked several hundred feet with minimal assistance. However, on discussion with patient's daughter they have strong concern with him going home given his ongoing nausea with vomiting as noted above, and patient's is having back surgery soon and patient will have very minimal help at home. Likely planning for SNF on discharge even if this requires private pay. Will continue to follow. 4. HFrEF with recent hospitalization for heart failure exacerbation ? See discharge summary from 08/10/2023 for further details. Patient appeared euvolemic on admission. Chest x-ray with hyperinflation, no other abnormalities, no volume overload. BNP 616 on admit, much improved from BNP 4227 on 08/06. Continue home p.o. Lasix 40 mg daily, Coreg 25 mg twice daily, Entresto twice daily. 5. CKD stage IIIb ? Creatinine 2.05 on admit, baseline creatinine 1.8-2.2. Stable at baseline. Adequate urine output reported. 6. CLL ? WBC count 57 on admit, baseline WBC count 50 to 60, leukocyte predominant. Diagnosed back in 2003, follows with Dr. Osborn in outpatient setting. Stable at baseline. 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 Follows with Dr. Bush with oncology, last office visit 06/21/2023. 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 CA 19?9 was mildly elevated at 49 on 04/17/2023, however it improved to 34 on 06/21/2023. MRI abdomen on 04/20/2023 apparently showed no masses, PET/CT on 12/26 showed no hypermetabolic activity. Continue outpatient oncology follow-up. Chronic medical conditions: ? Chronic normocytic anemia: Hemoglobin 10.7 on admit, baseline hemoglobin 9-11. Stable at baseline. ? Hypertension: Continue home Coreg, Entresto, Lasix. ? Hyperlipidemia: Continue home statin. ? Neuropathy: Continue home gabapentin. ? History of prostate cancer: Follows with oncology, last office visit as noted above. Clinically stable, PSA normal. Continue observation. ? History of subdural hematoma DVT prophylaxis: Heparin subcu CODE STATUS: DNR CCA, DNI Expected disposition: SNF, TBD Total clinical time spent by myself addressing the patient's medical issues, reviewing all the data, and collaborating with patient's care team: 35 minutes. Charges/Coding Visit Charges Inpatient E&M: 91330 Subs Hosp L2
--- NOTE | 2023-08-18 15:14 | CON.PCM.GI_ITS ---
HPI Consult Data Date of Consult: 08/18/23 HPI Narrative Reason for Consultation: nausea and vomiting HPI Narrative: BIGG LONG, is a 83 M who presents with nausea and vomiting. He was recently admitted between 08/06 to 08/09 for acute on chronic HFrEF and had full workup done and discharged on guideline directed heart failure medications. After discharge patient feels periodic morning nausea and vomiting little amount after he wakes up. He was diagnosed with CLL stage 0 in 2003. He has not required therapy. He was diagnosed with Prostate Cancer stage IIA, finished Radiation therapy in July 2015 and received LHRH agonist by Dr. Cooper. He was admitted to [facility] with UTI, found to have Iron deficiency anemia, started on Oral Iron, had nausea and vomiting so stopped. He had an EGD on 03/13/2023 which showed nodular mass around the Ampulla of Vater, biopsy showed Neoplastic glandular epithelium with pancreatobiliary f eatures. MRI abdomen on 04/20/2023 showed no pancreatic mass, cysts in liver and kidneys, ?metastatic retroperitoneal node. CA19-9 on 04/17/2023 was 49. PET/CT ON 05/08/2023 was negative. He saw Surgeon at [facility]. He had an Endoscopy on 05/28/2022. He reports that the biopsy was negative. I was called to see him due to nausea vomiting. He had a CT scan of the abdomen pelvis that displayed Distended bladder with severe left and moderate right hydronephrosis concerning for urinary retention. Prosthetic radiation beads also noted. There was no bowel obstruction. Large colonic stool burden as can be seen with constipation. There was also some focal mild wall thickening of the gastric ascending colon likely represents peristalsis. [facility] Medical History Back pain due to injury Cancer CKD (chronic kidney disease), stage III CLL (chronic lymphocytic leukemia) Essential hypertension HFrEF (heart failure with reduced ejection fraction) High cholesterol ICD (implantable cardioverter-defibrillator) in place Iron deficiency anemia LBBB (left bundle branch block) Myocardial infarct Non-ischemic cardiomyopathy Orthostatic hypotension Pacemaker Peripheral neuropathy Prostate cancer Restless leg syndrome Subdural hematoma Ventricular tachycardia Home Medications cholecalciferol (vitamin D3) 25 mcg (1,000 unit) capsule (Vitamin D3) 50 mcg PO DAILY 03/29/17 [History Last Taken 03/31/23] carvedilol 25 mg tablet 25 mg PO BID 08/24/16 [History Last Taken 03/04/23] sacubitril 49 mg-valsartan 51 mg tablet (Entresto) 1 tab PO BID 08/24/22 [History Last Taken 03/31/23] zinc acetate 50 mg (zinc) capsule 50 mg PO DAILY 08/24/22 [History Last Taken 03/31/23] atorvastatin 10 mg tablet 10 mg PO DAILY 03/04/23 [History Last Taken 03/30/23] polysaccharide iron complex 150 mg iron capsule (Ferrex) 150 mg PO DAILY #30 caps 03/20/23 [Rx Last Taken 03/31/23] potassium chloride 10 mEq capsule,extended release 10 meq PO DAILY 08/07/23 [History Last Taken Unknown] furosemide 40 mg tablet 40 mg PO DAILY #30 tabs 08/10/23 [Rx Last Taken Unknown] gabapentin 100 mg capsule 200 mg (2 x 100 mg) PO QHS #60 caps 08/10/23 [Rx Last Taken Unknown] Allergy/AdvReac Type Severity Reaction Status Date / Time lisinopril AdvReac Unknown cough Verified 08/16/23 11:36 Family History Mother CVA (cerebral vascular accident) Hypertension Diabetes Father Ischemic heart disease Diabetes Surgical History Cardiac 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 therapy defibrillator ([employer]-D) in place (~09/2015) History of arthroplasty of finger of left hand History of colonoscopy History of left heart catheterization (09/22/15) S/P TURP Splenic artery aneurysm Status post laser lithotripsy of ureteral calculus Social History household members: spouse Smoking Status: Never smoker alcohol intake: never substance use type: does not use caffeine: Yes Type: coffee Number of servings: 3 ROS ROS Narrative Constitutional: Reports severe fatigue and weakness. No fever. HEENT: Reports systems reviewed and no addt'l complaints, except as documented Respiratory/Chest:No acute shortness of breath or respiratory distress or wheezing. CVS: Recent admission for heart failure exacerbation. Rest described in HPI Gastrointestinal: No abdominal pain. Denies acute alteration of bowel habit. Rest as described in HPI. No hematemesis melena Genitourinary: Denies burning urination or new urinary tract symptoms Musculoskeletal: Denies acute joint pain or limited range of motion. No acute injury. Chronic arthritis Neurologic: Denies seizure-like symptoms. skin: No ulcer. No rash Endocrinology: Reports systems reviewed and no addt'l complaints, except as documented Hematologic/Lymphatic: Reports systems reviewed and no addt'l complaints, except as documented Rest 14 ROS are negative except as mentioned in HPI Physical Exam Const alert, oriented x3, no apparent distress and average body habitus Constitutional Narrative: no acute distress. General Appearance: cooperative and comfortable HEENT normocephalic, head/scalp atraumatic, hearing grossly normal bilaterally and nasal mucous membranes and turbinates normal Eyes PERRL, EOMs intact bilaterally and conjunctivae normal Neck full ROM Chest inspection of chest normal Resp normal respiratory effort, normal air movement, no use of accessory muscles and clear to auscultation bilaterally Cardio regular rate, regular rhythm, no murmurs and peripheral pulses 2+ throughout GI normal to inspection, nondistended, normoactive bowel sounds, soft to palpation, non-tender and non-distended no CVA tenderness Bladder / Kidney Exam: No catheter in place and bladder normal to palpation Back/Spine normal ROM Extremity normal to inspection, full ROM and no pedal edema Skin no rashes or lesions noted Neuro moves all extremities and no focal motor deficits Speech: speech normal Psych mental status grossly normal Medical Records Data Medical Nutrition Assessment Dietitian: Malnutrition Criteria Met Start: 08/17/23 13:12 Freq: Status: Active Protocol: Document 08/17/23 13:13 IVAN (Rec: 08/17/23 13:13 [facility] Desktop) Nutrition Malnutrition Evidence of Malnutrition Exists Yes Malnutrition (severe): Acute Illness/Injury Evidenced By Suboptimal Energy Intake ( Severe),Weight Loss (Severe) Clinical Problem Acute Disease or Injury Related Malnutrition Etiology related to GI dysfunction, therapeutic diet and inadequate energy intake Signs/Symptoms as evidenced by n/v since discharge from hospital 08/09 w / 7% wt loss and po intake meeting <75% of est nutritional needs Status Active Problem Recommendation Dietitian Recommendations/Changes Will change diet to Cardiac/ Sodium Restricted w/ Ensure Compact at meals - suggest fluid restriction if indicated by MD Available if additional diet education desired prior to d/c . Lab / Micro Data 08/18/23 05:30 08/18/23 05:30 Labs: Laboratory Results - last 24 hr 08/18/23 05:30: WBC 51.7 H*, RBC 3.69 L, Hgb 10.0 L, Hct 32.2 L, MCV 87.3, MCH 27.1, MCHC 31.1 L D, RDW Std Deviation 55.4 H, RDW Coeff of Willie 17.4 H, Plt Count 238, MPV 10.1, Differential Comment SCANNED, Diff Path Review May foll, Sodium 142, Potassium 3.9, Chloride 108 H, Carbon Dioxide 30.0, Anion Gap 4 L, BUN 37 H, Creatinine 1.79 H, Estim Creat Clear Calc 30.97, Est GFR (MDRD) Af Amer 47 L, Est GFR (MDRD) Non-Af 39 L, BUN/Creatinine Ratio 20.7 H, Glucose 106, Calcium 8.6 Imaging Radiology Impression Abdomen CT 08/17/23 18:26 IMPRESSION: Distended bladder with severe left and moderate right hydronephrosis concerning for urinary retention. Prosthetic radiation beads also noted. No bowel obstruction. Large colonic stool burden as can be seen with constipation. Focal mild wall thickening of the gastric ascending colon likely represents peristalsis. Electronically Signed: Eulalio Hatfield MD at 1:32 EDT Reading Location ID and State: [facility] / [place] Tel , Service support , Assessment & Plan Assessment/Plan (1) Hydronephrosis: (2) Constipation: (3) Nausea & vomiting: QUALIFIERS: Vomiting type: unspecified Qualified Code(s): R11.2 - Nausea with vomiting, unspecified PLAN: Plan 82-year-old with past medical history of CLL, prostate cancer status post ration, CKD stage III and recent urinary tract infection with obstructive uropathy status post Hood and removal Urinary retention with hydronephrosis/history of prostate cancer/nausea and vomiting ? He thinks that the nausea and vomiting is due to his iron and Cipro but is also been having dizziness for the last 6 months He will undergo an upper endoscopy to make sure it is not an acute GI pathology contributing to his nausea and vomiting. On his last upper endoscopy approximately 6 months ago he was discovered to have some nodular changes in his duodenum causing a mild elevation of peristalsis with intermittent possible gastric outlet. It would make sense that he would get this during the morning if he is building up pressure from the night. He was explained alternatives, risk, benefits include not withstanding bleed ing, infection, sepsis, perforation, need for emergency to . Have an ASA of 3. Chronic systolic CHF/HTN/HLD ? Seems to be stable and not contributing to his nausea vomiting Charges/Coding Visit Charges Inpatient E&M: 50043 Init Hosp L3
--- NOTE | 2023-08-18 15:50 | CM.UR ---
Social Work Power of employee benefits attorney for healthcare is scanned into [employer], with the living will provision initialed, Shruthi Ann as listed as POA for healthcare. MELODY Huffman
[2023-08-18] MEDS: Tamsulosin HCl 0.4 MG Capsule PO (18:42)
[2023-08-18 21:16] VITALS: BP 149/69; PULSE 69; RESP 16; TEMP 36.9; O2SAT 97
[2023-08-18] MEDS: Gabapentin 100 MG Capsule PO (21:23)
--- NOTE | 2023-08-19 06:00 | EKG12_ITS ---
Test Reason : PRE OP Blood Pressure : / mmHG Vent. Rate : 061 BPM Atrial Rate : 061 BPM P-R Int : 126 ms QRS Dur : 172 ms QT Int : 502 ms P-R-T Axes : 000 212 073 degrees QTc Int : 505 ms AV dual-paced rhythm Possible Biventricular pacemaker detected Abnormal ECG Confirmed by Loc Thorne ([id number]), movie editor PETEY CONTEH ([id number]) on 08/20/2023 1:19:41 PM Referred By: RYANN Confirmed By:Loc Thorne
[2023-08-19 06:37] VITALS: BP 150/64; PULSE 62; RESP 16; TEMP 36.9; O2SAT 97
[2023-08-19 07:20] LABS: Hemoglobin 9.7 g/dL (13.0-16.5); Mean Corp Hgb Conc 30.3 g/dL (32-36); Mean Corpuscular Hgb 26.5 pg (27.0-32.0); Mean Corpuscular Volume 87.4 fL (80-94); Mean Platelet Vol. 10.8 fl (6.2-12.0); POSITIVE COUNT YES; Platelet Count 242 K/mm3 (150-450); RBC Distribution Width CV 17.4 % (11.6-14.6); RBC Distribution Width SD 55.6 fl (35.1-43.9); Red Blood Count 3.66 M/mm3 (4.6-6.2); White Blood Count 56.7 K/mm3 (4.4-11.0)
[2023-08-19 07:36] LABS: Scan Indicated on CBC? Y/N YES- FLAGS NOTED
[2023-08-19 08:08] LABS: Anion Gap 3 (5-15); BUN 44 mg/dL (7-18); BUN/Creat Ratio 25.3 RATIO (10-20); Chloride 109 mmol/L (98-107); Creatinine, Serum 1.74 mg/dL (0.70-1.30); EST Glomerular Filtration Rate 40 mL/min (>60); Est Glom Filt Rate - Afr Amer 48 mL/min (>60); Estimated Creatinine Clearance 31.86 ml/min; Glucose 123 mg/dL (74-106); Potassium 3.5 mmol/L (3.5-5.1); Sodium Level 143 mmol/L (136-145)
--- NOTE | 2023-08-19 08:28 | CON.PCM.UR_ITS ---
HPI Consult Data Date of Consult: 08/19/23 HPI Narrative Reason for Consultation: retention HPI Narrative: BIGG LONG, is a 83 M who presents in hospital with retention of urine and bilateral hydronephrosis, hutchinson in place, had a turp end of last year, nit sure why went back into retention, will need to be discharged w hutchinson for outpatient work up, follow up w urology as outpatient w hutchinson and cysto, call w questions [facility] Medical History Back pain due to injury Cancer CKD (chronic kidney disease), stage III CLL (chronic lymphocytic leukemia) Essential hypertension HFrEF (heart failure with reduced ejection fraction) High cholesterol ICD (implantable cardioverter-defibrillator) in place Iron deficiency anemia LBBB (left bundle branch block) Myocardial infarct Non-ischemic cardiomyopathy Orthostatic hypotension Pacemaker Peripheral neuropathy Prostate cancer Restless leg syndrome Subdural hematoma Ventricular tachycardia Home Medications cholecalciferol (vitamin D3) 25 mcg (1,000 unit) capsule (Vitamin D3) 50 mcg PO DAILY 08/09/16 [History Last Taken 03/31/23] carvedilol 25 mg tablet 25 mg PO BID 08/24/16 [History Last Taken 03/04/23] sacubitril 49 mg-valsartan 51 mg tablet (Entresto) 1 tab PO BID 08/24/22 [History Last Taken 03/31/23] zinc acetate 50 mg (zinc) capsule 50 mg PO DAILY 08/24/22 [History Last Taken 03/31/23] atorvastatin 10 mg tablet 10 mg PO DAILY 03/04/23 [History Last Taken 03/30/23] polysaccharide iron complex 150 mg iron capsule (Ferrex) 150 mg PO DAILY #30 caps 03/20/23 [Rx Last Taken 03/31/23] potassium chloride 10 mEq capsule,extended release 10 meq PO DAILY 08/07/23 [History Last Taken Unknown] furosemide 40 mg tablet 40 mg PO DAILY #30 tabs 08/10/23 [Rx Last Taken Unknown] gabapentin 100 mg capsule 200 mg (2 x 100 mg) PO QHS #60 caps 08/10/23 [Rx Last Taken Unknown] Allergy/AdvReac Type Severity Reaction Status Date / Time lisinopril AdvReac Unknown cough Verified 08/16/23 11:36 Family History Mother CVA (cerebral vascular accident) Hypertension Diabetes Father Ischemic heart disease Diabetes Surgical History Cardiac 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 therapy defibrillator (OVERNIGHT STOCKER-D) in place (~09/2015) History of arthroplasty of finger of left hand History of colonoscopy History of left heart catheterization (09/22/15) S/P TURP Splenic artery aneurysm Status post laser lithotripsy of ureteral calculus Social History household members: spouse Smoking Status: Never smoker alcohol intake: never substance use type: does not use caffeine: Yes Type: coffee Number of servings: 3 Medical Records Data Medical Nutrition Assessment Dietitian: Malnutrition Criteria Met Start: 08/17/23 13:12 Freq: Status: Active Protocol: Document 08/17/23 13:13 SLA (Rec: 08/17/23 13:13 SLA Desktop) Nutrition Malnutrition Evidence of Malnutrition Exists Yes Malnutrition (severe): Acute Illness/Injury Evidenced By Suboptimal Energy Intake ( Severe),Weight Loss (Severe) Clinical Problem Acute Disease or Injury Related Malnutrition Etiology related to GI dysfunction, therapeutic diet and inadequate energy intake Signs/Symptoms as evidenced by n/v since discharge from hospital 08/09 w / 7% wt loss and po intake meeting <75% of est nutritional needs Status Active Problem Recommendation Dietitian Recommendations/Changes Will change diet to Cardiac/ Sodium Restricted w/ Ensure Compact at meals - suggest fluid restriction if indicated by MD Available if additional diet education desired prior to d/c . Lab / Micro Data 08/19/23 05:50 08/19/23 05:50 Labs: Laboratory Results - last 24 hr 08/19/23 05:50: WBC 56.7 H*, RBC 3.66 L, Hgb 9.7 L, Hct 32.0 L, MCV 87.4, MCH 26.5 L, MCHC 30.3 L, RDW Std Deviation 55.6 H, RDW Coeff of Willie 17.4 H, Plt Count 242, MPV 10.8, Differential Comment , Diff Path Review September, Sodium 143, Potassium 3.5, Chloride 109 H, Carbon Dioxide 31.0, Anion Gap 3 L, BUN 44 H , Creatinine 1.74 H, Estim Creat Clear Calc 31.86, Est GFR (MDRD) Af Amer 48 L, Est GFR (MDRD) Non-Af 40 L, BUN/Creatinine Ratio 25.3 H, Glucose 123 H, Calcium 9.0
[2023-08-19 09:34] VITALS: BP 167/77; PULSE 63; RESP 16; TEMP 36.5; O2SAT 97
[2023-08-19] MEDS: Carvedilol 25 MG Tablet PO ×2 (09:37→21:14)
[2023-08-19] MEDS: Bisacodyl 10 MG Suppository RC (09:44)
--- NOTE | 2023-08-19 10:58 | PN.HOSP_ITS ---
Reason for Visit Reason for Visit: Diagnoses Chronic systolic (congestive) heart failure (08/16/23) Constipation, unspecified (08/16/23) Unspecified hydronephrosis (08/16/23) Nausea with vomiting, unspecified (08/16/23) Weakness (08/16/23) Subjective Subjective No acute events overnight. Patient seen at bedside this morning. Patient and nursing staff noted that he had a large bowel movement this morning. He had Hood catheter placed yesterday afternoon and has been tolerating this without issue. He was kept n.p.o. overnight for possible scopes today, notes that he feels hungry today and denies any nausea this morning. No other acute concerns at this time. Objective Data Objective Data Vital Signs: Vital Signs Temp Pulse Resp BP Pulse Ox O2 Del Method 97.7 F L 63 16 167/77 H 97 Room Air 08/19/23 09:34 08/19/23 09:34 08/19/23 09:34 08/19/23 09:34 08/19/23 09:34 08/19/23 09:34 Oxygen Delivery Method Room Air Weight: 72.575 kg Body Mass Index (BMI) 22.9 Intake & Output: Intake and Output for Last 24 Hours 08/17/23 08/18/23 08/19/23 23:59 23:59 23:59 Intake Total 0 / 0 350 / 550 200 / 200 Output Total 375 / 375 Balance 0 / 0 350 / 550 -175 / -175 Medical Nutrition Assessment Dietitian: Malnutrition Criteria Met Start: 08/17/23 13: 12 Freq: Status: Active Protocol: Document 08/17/23 13:13 IVAN (Rec: 08/17/23 13:13 IVAN Desktop) Nutrition Malnutrition Evidence of Malnutrition Exists Yes Malnutrition (severe): Acute Illness/Injury Evidenced By Suboptimal Energy Intake ( Severe),Weight Loss (Severe) Clinical Problem Acute Disease or Injury Related Malnutrition Etiology related to GI dysfunction, therapeutic diet and inadequate energy intake Signs/Symptoms as evidenced by n/v since discharge from hospital 08/09 w / 7% wt loss and po intake meeting <75% of est nutritional needs Status Active Problem Recommendation Dietitian Recommendations/Changes Will change diet to Cardiac/ Sodium Restricted w/ Ensure Compact at meals - suggest fluid restriction if indicated by MD Available if additional diet education desired prior to d/c . Lab / Micro Data 08/19/23 05:50 08/19/23 05:50 Labs: Laboratory Results - last 24 hr 08/19/23 05:50: WBC 56.7 H*, RBC 3.66 L, Hgb 9.7 L, Hct 32.0 L, MCV 87.4, MCH 26.5 L, MCHC 30.3 L, RDW Std Deviation 55.6 H, RDW Coeff of Willie 17.4 H, Plt Count 242, MPV 10.8, Differential Comment , Diff Path Review September, Sodium 143, Potassium 3.5, Chloride 109 H, Carbon Dioxide 31.0, Anion Gap 3 L, BUN 44 H , Creatinine 1.74 H, Estim Creat Clear Calc 31.86, Est GFR (MDRD) Af Amer 48 L, Est GFR (MDRD) Non-Af 40 L, BUN/Creatinine Ratio 25.3 H, Glucose 123 H, Calcium 9.0 Micro: Microbiology 08/16/23 12:10 Mucosa - Nose SARS-CoV-2, Influenza & RSV (PCR) - Final Physical Exam Const alert, oriented x3, no apparent distress and average body habitus Constitutional Narrative: Pleasant elderly male, sitting up comfortably in bed, conversing normally, no acute distress. General Appearance: cooperative and comfortable HEENT normocephalic, head/scalp atraumatic, hearing grossly normal bilaterally and nasal mucous membranes and turbinates normal Eyes PERRL, EOMs intact bilaterally and conjunctivae normal Neck full ROM Chest inspection of chest normal Resp normal respiratory effort, normal air movement, no use of accessory muscles and clear to auscultation bilaterally Cardio regular rate, regular rhythm, no murmurs and peripheral pulses 2+ throughout GI normal to inspection, nondistended, normoactive bowel sounds, soft to palpation, non-tender and non-distended no CVA tenderness Bladder / Kidney Exam: No catheter in place and bladder normal to palpation Back/Spine normal ROM Extremity normal to inspection, full ROM and no pedal edema Skin no rashes or lesions noted Neuro moves all extremities and no focal motor deficits Speech: speech normal Psych mental status grossly normal Assessment & Plan Assessment/Plan (1) Nausea & vomiting: QUALIFIERS: Vomiting type: unspecified Qualified Code(s): R11.2 - Nausea with vomiting, unspecified (2) Weakness: (3) Constipation: (4) Hydronephrosis: PLAN: Plan Patient is an 83-year-old male who presented to [facility] ED on 08/16/2023 with worsening weakness at home and recurrent episodes of nausea with vomiting. 1. Recurrent episodes of nausea with vomiting suspected due to constipation Unclear etiology at this time. Reportedly has had episodes of nausea with vomiting in the mornings most days for the past few weeks prior to admission. Had similar episode a few hours after eating breakfast on morning of 08/16. Normal bowel movements during that time. No symptoms of acid reflux or dysphagia. No pain with eating or anytime after eating. Does not seem to have any offending medications on med list. CT abdomen pelvis with oral contrast on 08/16 showed large colonic stool burden likely secondary to constipation, focal mild wall thickening of gastric ascending colon likely representing peristalsis. ? GI following. Started heavy bowel regimen on 08/17 including senna/docusate 2 tablets twice daily, MiraLAX daily, Dulcolax suppository daily for 3 days. Has had a few large bowel movements with this, will continue for now. Patient okay for diet today, will make n.p.o. overnight with plan for EGD tomorrow to evaluate for possible intermittent gastric outlet obstruction. 2. Severe bilateral hydronephrosis with concern for urinary retention; history of bilateral hydronephrosis secondary to complicated UTI with nephrolithiasis CT abdomen pelvis on 08/16 showed a distended bladder with severe left and moderate right hydronephrosis concerning for urinary retention. Patient notably had decent urine output per nursing staff and denied any suprapubic pain, pain or discomfort with urination, CVA tenderness. Hemodynamically stable and denied fevers or chills. UA on admit noninfectious appearing. Hood placed on 08/17, has had moderate urine output since placement. ? Urology evaluated. Unsure why patient went back into urinary retention. Ace mmended discharging patient with Hood catheter with close outpatient follow-up with urology. Okay to continue home Flomax and home diuretics as noted below. 3. Weakness ? PT/OT/case management following. Patient did well with therapy on 08/16, walked several hundred feet with minimal assistance. However, on discussion with patient's daughter they have strong concern with him going home given his ongoing nausea with vomiting as noted above, and patient's is having back surgery soon and patient will have very minimal help at home. Currently plan for discharge to SNF even though this will require private pay. 4. HFrEF with recent hospitalization for heart failure exacerbation ? See discharge summary from 08/10/2023 for further details. Patient appeared euvolemic on admission. Chest x-ray with hyperinflation, no other abnormalities, no volume overload. BNP 616 on admit, much improved from BNP 4227 on 08/06. Continue home p.o. Lasix 40 mg daily, Coreg 25 mg twice daily, Entresto twice daily. 5. CKD stage IIIb ? Creatinine 2.05 on admit, baseline creatinine 1.8-2.2. Stable at baseline, has had adequate urine output. 6. CLL ? WBC count 57 on admit, baseline WBC count 50 to 60, leukocyte predominant. Diagnosed back in 2003, follows with Dr. Osborn in outpatient setting. Stable at baseline. 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 Follows with Dr. Bush with oncology, last office visit 06/21/2023. 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 CA 19?9 was m ildly elevated at 49 on 04/17/2023, however it improved to 34 on 06/21/2023. MRI abdomen on 04/20/2023 apparently showed no masses, PET/CT on 05/08 showed no hypermetabolic activity. Continue outpatient oncology follow-up. Chronic medical conditions: ? Chronic normocytic anemia: Hemoglobin 10.7 on admit, baseline hemoglobin 9-11. Stable at baseline. ? Hypertension: Continue home Coreg, Entresto, Lasix. ? Hyperlipidemia: Continue home statin. ? Neuropathy: Continue home gabapentin. ? History of prostate cancer: Follows with oncology, last office visit as noted above. Clinically stable, PSA normal. Continue observation. ? History of subdural hematoma DVT prophylaxis: Heparin subcu CODE STATUS: DNR CCA, DNI Expected disposition: SNF, TBD Total clinical time spent by myself addressing the patient's medical issues, reviewing all the data, and collaborating with patient's care team: 35 minutes. Charges/Coding Visit Charges Inpatient E&M: 26885 Subs Hosp L2
[2023-08-19] MEDS: 0.9% Saline Lock 10 ML Syringe IV (11:25)
[2023-08-19] MEDS: Ondansetron 4 MG/2 ML Vial IV (11:25)
[2023-08-19] MEDS: Heparin Injection (Vial) 5,000 UNIT/ML VIAL 5000 UNIT SC (11:26)
[2023-08-19] MEDS: SACUBITRIL/VALSARTAN 49-51 MG TABLET 1 EACH PO ×2 (11:30→21:14)
[2023-08-19] MEDS: Cholecalciferol (VIT D3) 25 MCG TABLET (1,000 UNITS) 50 MCG PO (11:30)
[2023-08-19] MEDS: Senna/Docusate Sodium 1 Tablet 2 TABLET PO (11:32)
[2023-08-19] MEDS: Furosemide 40 MG Tablet PO (11:33)
--- NOTE | 2023-08-19 11:45 | NURSING ---
This RN went in to see pt and tell him that there wont be any procedures done today so he can have a diet. Pt started to dry heave. Pt said its been a few minutes that he started to feel nauseated. Continued to dry heave for 1-2 minutes. Zofran given.
[2023-08-19 14:01] VITALS: BP 117/52; PULSE 64; RESP 18; TEMP 36.4; O2SAT 95
[2023-08-19] MEDS: Tamsulosin HCl 0.4 MG Capsule PO (18:33)
[2023-08-19 21:10] VITALS: BP 139/61; PULSE 66; RESP 16; TEMP 36.8; O2SAT 95
[2023-08-19] MEDS: Gabapentin 100 MG Capsule PO (21:14)
[2023-08-20] VITALS (12 sets, daily range): BP systolic 88–155; BP diastolic 52–90; PULSE 58–71; RESP 12–18; TEMP 36.1–37; O2SAT 93–98
[2023-08-20 04:40] LABS: Hematocrit 31.9 % (40-54); Hemoglobin 9.7 g/dL (13.0-16.5); Mean Corp Hgb Conc 30.4 g/dL (32-36); Mean Corpuscular Hgb 26.6 pg (27.0-32.0); Mean Corpuscular Volume 87.6 fL (80-94); Mean Platelet Vol. 10.6 fl (6.2-12.0); POSITIVE COUNT YES; Platelet Count 213 K/mm3 (150-450); RBC Distribution Width CV 17.4 % (11.6-14.6); RBC Distribution Width SD 55.8 fl (35.1-43.9); Red Blood Count 3.64 M/mm3 (4.6-6.2)
[2023-08-20 04:49] LABS: Scan Indicated on CBC? Y/N YES- FLAGS NOTED; White Blood Count 48.2 K/mm3 (4.4-11.0)
[2023-08-20 05:03] LABS: Anion Gap 3 (5-15); BUN 42 mg/dL (7-18); BUN/Creat Ratio 22.1 RATIO (10-20); Calcium,Total 8.8 mg/dL (8.5-10.1); Chloride 109 mmol/L (98-107); EST Glomerular Filtration Rate 36 mL/min (>60); Est Glom Filt Rate - Afr Amer 44 mL/min (>60); Estimated Creatinine Clearance 29.18 ml/min; Glucose 123 mg/dL (74-106); Potassium 3.9 mmol/L (3.5-5.1); Sodium Level 144 mmol/L (136-145)
[2023-08-20 06:44] LABS: Differential Comment SCANNED
[2023-08-20] MEDS: Lactated Ringers 1,000 ML 15 ML IV (11:36)
--- NOTE | 2023-08-20 12:30 | EGD_PTH ---
PATIENT: BIGG LONG LOC: MS3 U#:[id number] AGE/SX: 83/M ROOM: [facility] [place] RE08/16/[address]: Dr. Kate Horton DO : 1940 BED: 1 DIS: 08/20/2023 SPEC #: [id number] RECD: 08/20/23 17:07 STATUS: KAJAL REKrupa #: [id number] SHANON: 08/20/23 12:[address]: Harpreet Hartman DEPT: SURGICAL PATHOLOGY RECD BY: Michelle Burger ENTERED: 08/21/23 12:08 SP TYPE: EGD BIOPSY OTHR DR: DO Dr. Kate Bradshaw DO Dr. Prakash Chand, MD Dr. Rahsaan Friend, DO Ryan Baltes, NP-C Tissues: Gastric mucous membrane Procedures: Surgery Specimen Level IV Comments: @ Ordering doctor for PALMA edited from to @ gary ABREU at 08/21/23 1340 @ Submitting doctor edited from to @ by LOIS at 08/21/23 1340 HEADER OPERATION: EGD with biopsy PRE-OP DIAGNOSIS: Nausea and vomiting TISSUE SUBMITTED: Gastric antrum MICROSCOPIC DIAGNOSIS Gastric antrum, biopsy: Mild gastritis. See microscopic description and comment. / 08/22/23 COMMENT The results of immunohistochemistry for Helicobacter pylori will be reported separately ([id number]). MICROSCOPIC DESCRIPTION Slides are reviewed. The specimen shows fragments of gastric mucosa with chronic inflammatory cell infiltrates in the lamina propria consisting of lymphocytes and plasma cells, consistent with mild chronic gastritis. GROSS DESCRIPTION Received in fixative is one container labeled with the patient's name and designated Gastric antrum. The specimen consists of two irregular fragments of light harry soft tissue that in aggregate measure 0.5 x 0.5 x 0.1 cm. The specimen is totally submitted in one cassette. [facility] 08/21/23 TC:3 CPT: 02045
--- NOTE | 2023-08-20 12:30 | IMM_PTH ---
PATIENT: BIGG LONG LOC: MS3 U#:[id number] AGE/SX: 83/M ROOM: [facility] [place] RE08/16/[address]: Dr. Kate Horton DO : 1940 BED: 1 DIS: 08/20/2023 SPEC #: [id number] RECD: 08/21/23 13:38 STATUS: SOUT REQ #: [id number] SHANON: 08/20/23 12:[address]: Harpreet Hartman DEPT: IMMUNOHISTOCHEMISTRY RECD BY: Jonas Porter ENTERED: 08/21/23 13:39 SP TYPE: IMMUNO OTHR DR: DO Dr. Kate Bradshaw DO Dr. Prakash Chand, MD Dr. Rahsaan Friend, DO Ryan Baltes, HEALTHCARE ECONOMICS CONSULTANT-C Tissues: Stomach, NOS Procedures: H Pylori (initial) Comments: @ Ordering doctor for H.PYLORI edited from to @ by LOIS at 08/21/23 1340 @ Submitting doctor edited from to @ by LOIS at 08/21/23 1340 PHYSICIAN & INSTITUTION [place] [id number] SPECIMEN INFORMATION: Tissue Source: Gastric antrum Clinical Info: Nausea and vomiting Specimen Number: [id number] CPT code: 57253 METHODOLOGY: Deparaffinized sections of prefer/formalin-fixed tissue or PAP/DQ stained slides are incubated with monoclonal/polyclonal antibodies/oligonucleotide probes. Localization is made via biotin free immunoperoxidase method. Appropriate controls are performed and reacted as expected. Results on target cell population are indicated in the following table: RESULTS: ANTIBODY / CLONE RESULT H Pylori (polyclonal) negative These tests were developed and their performance characteristics determined by [facility]. They may not have been cleared or approved by the U.S. Food and Drug Administration. The FDA has determined that such clearance or approval is not necessary. The above immunohistochemical/dualISH markers are ordered and reviewed by the Pathologist. INTERPRETATION: Gastric antrum, biopsy: Negative for Helicobacter pylori organisms. CHRIS/ 08/22/23
--- NOTE | 2023-08-20 13:08 | OP.EGD_ITS ---
Patient Name: Jaime Ann Procedure Date: 08/20/2023 12:52 PM Date of : 1940 Age: 83 Procedure: Upper GI endoscopy Indications: Nausea, Nausea with vomiting, Regurgitation Providers: Harpreet Hartman DO Medicines: Monitored Anesthesia Care Patient Profile: This is an 83 year old male. Refer to note in patient chart for documentation of history and physical. Patient has symptoms of acute regurgitation, chronic regurgitation, acute vomiting and chronic vomiting. Complications: No immediate complications. Procedure: Pre-Anesthesia Assessment: - Prior to the procedure, a History and Physical was performed, and patient medications and allergies were reviewed. The patient is competent. The risks and benefits of the procedure and the sedation options and risks were discussed with the patient. All questions were answered and informed consent was obtained. Patient identification and proposed procedure were verified by the physician in the pre-procedure area. Mental Status Examination: alert and oriented. Airway Examination: normal oropharyngeal airway and neck mobility. Respiratory Examination: clear to auscultation. CV Examination: normal. Prophylactic Antibiotics: The patient does not require prophylactic antibiotics. Prior Anticoagulants: The patient has taken no anticoagulant or antiplatelet agents. ASA Grade Assessment: II - A patient with mild systemic disease. After reviewing the risks and benefits, the patient was deemed in satisfactory condition to undergo the procedure. The anesthesia plan was to use monitored anesthesia care (MAC). Immediately prior to administration of medications, the patient was re-assessed for adequacy to receive sedatives. The heart rate, respiratory rate, oxygen saturations, blood pressure, adequacy of pulmonary ventilation, and response to care were monitored throughout the procedure. The physical status of the patient was re-assessed after the procedure. After obtaining informed consent, the endoscope was passed under direct vision. Throughout the procedure, the patient's blood pressure, pulse, and oxygen saturations were monitored continuously. The Endoscope was introduced through the mouth, and advanced to the second part of duodenum. The upper GI endoscopy was accomplished without difficulty. The patient tolerated the procedure well. Scope In: 1:00:02 PM Scope Out: 1:01:31 PM Total Procedure Duration Time 0 hours 1 minute 29 seconds Findings: The examined esophagus was normal. Localized moderate inflammation characterized by congestion (edema), erosions and erythema was found in the gastric antrum. Biopsies were taken with a cold forceps for histology. Verification of patient identification for the specimen was done. Estimated blood loss was minimal. Biopsies were taken with a cold forceps for Helicobacter pylori testing. Verification of patient identification for the specimen was done. Estimated blood loss was minimal. The second portion of the duodenum was normal. Impression: - Normal esophagus. - Chronic gastritis. Biopsied. - Normal second portion of the duodenum. Recommendation: - Return patient to hospital [facility] for ongoing care. - Resume regular diet. - Continue present medications. - Await pathology results. Procedure Code(s): --- Professional --- 41456, Esophagogastroduodenoscopy, flexible, transoral; with biopsy, single or multiple CPT copyright 2021 [employer]. All rights reserved. The codes documented in this report are preliminary and upon braille coder review may be revised to meet current compliance requirements. Harpreet Hartman DO 08/20/2023 1:07:42 PM This report has been signed electronically. Number of Addenda: 0 Note Initiated On: 08/20/2023 12:52 PM
--- NOTE | 2023-08-20 13:08 | OP.CCLET_ITS ---
08/20/2023 Jorge Luis Justice Re : Upper GI endoscopy procedure for Jaime Ann Dear Riccardo This procedure was performed on Sunday, August 20, 2023. My impressions and recommendations are as follows: Impressions : - Normal esophagus. - Chronic gastritis. Biopsied. - Normal second portion of the duodenum. Recommendations : - Return patient to hospital [facility] for ongoing care. - Resume regular diet. - Continue present medications. - Await pathology results. My findings are described in the full procedure note, which is enclosed. If I can be of further assistance, please feel free to contact me at . Sincerely, Harpreet Hartman, 08/20/2023 1:07:42 PM This report has been signed electronically.
--- NOTE | 2023-08-20 14:55 | TREXTCAR_ITS ---
Diet Diet Order/Speech Therapy: 08/20/23 14:28 Diet: Cardiac - Heart Healthy Dietary Modifications:: Sodium Restricted Type of Dietary Supplement:: Ensure Compact Is pt able to select menu?: No Routine Orders/Code Status Enema Frequency: Daily PRN Suppository Type: Dulcolax 10mg Suppository Frequency: Daily PRN O2 Frequency: PRN Keep PO Greater than or Equal to (%): 89 Routine Lab Work: CBC (1 week) and BMP (1 week) Code Status: DNRCC-A (No intubation) Wound(s) RT INNER ARM: Wound Type: Skin Tear Suggestions for Active Care Change Position every (hours): 2 Therapies Weight Bearing: Full weight bearing Physical Therapy: Eval and Treat Occupational Therapy: Eval and Treat Problem/Diagnosis (1) Nausea & vomiting: Status: Acute Code(s): R11.2 - Nausea with vomiting, unspecified (2) Weakness: Status: Acute Code(s): R53.1 - Weakness (3) Constipation: Status: Acute Code(s): K59.00 - Constipation, unspecified (4) Hydronephrosis: Status: Acute Code(s): N13.30 - Unspecified hydronephrosis Allergies/Procedures Done in Hospital Allergies lisinopril Adverse Reaction (Unknown, Verified 08/16/23 11:36) cough Adressed with patient and he does not remeber the reaction, it was so long ago but he was told not to take Lisinopril Procedures: EGD and - (CT abdomen and pelvis/brain CT/chest x-ray) Type of Care/Length of Stay Estimated LOS: Convalescent Care Less Than 30 days Type of Care Needed: Skilled Rehab Potential: Good Prognosis: Good Additional Orders/Day of Discharge Day of Discharge: 08/20/23 Dietary and Speech Recommendations Dietitian Recommendations/Changes: When able to resume diet, rec Cardiac/ Sodium Restricted w/ Ensure Compact at meals - suggest fluid restriction if indicated by MD Available if additional diet education desired prior to d/c. Follow Up Care Please follow up with your Primary Care Physician in: 1 week after discharge from intermediate facility Please Follow Up With: Henry Cooper MD When: 1 week Discharge Plan Admission Admit Date/Time: 08/16/23 13:43 Attending Provider: Kate Horton Primary Care Provider: German Gu NP Consulting Providers: Lamont Castillo; Friend,Harpreet; Waylon Sanches Discharge Orders/Prescriptions Prescriptions: No Action Entresto 49-51 mg tablet 1 tab PO BID Hold Instructions: Resume on 03/15/23. zinc acetate 50 mg (zinc) capsule 50 mg PO DAILY polysaccharide iron complex [Ferrex 150] 150 mg iron capsule 150 mg PO DAILY Qty: 30 1RF cholecalciferol (vitamin D3) [Vitamin D3] 1,000 UNIT capsule 50 mcg PO DAILY carvedilol 25 MG tablet 25 mg PO BID atorvastatin 10 mg tablet 10 mg PO DAILY potassium chloride 10 mEq capsule, extended release 10 meq PO DAILY furosemide 40 mg Tablet 40 mg PO DAILY Qty: 30 1RF gabapentin 100 mg Capsule 200 mg PO QHS Qty: 60 1RF Referrals / Follow Up: German Gu DIRECTOR OF REGIONAL SALES, DIRECTOR OF REGIONAL SALES-C [Primary Care Provider] - (1) Nausea & vomiting Qualifiers: Vomiting type: unspecified Qualified Code(s): R11.2 - Nausea with vomiting, unspecified
--- NOTE | 2023-08-20 14:57 | DS.PCM_ITS ---
Providers Date of Admission: 08/16/23 Date of Discharge: 08/20/23 Primary Care Physician: German Gu, RENETTA Consultations 08/17/23 18:27 Consult: Gastroenterology Routine Consulting Provider: Harpreet Hartman Reason for Consult: intractable n/v, ctap w/ po contrast pending, EGD +/- GES needed? EMERGENT Consult: No MD Notified: Yes Date Notified: 08/17/23 Time Notified: 18:27 Method of Notification: via text 08/18/23 11:55 Consult: Urology Routine Consulting Provider: Henry Cooper Reason for Consult: severe left and moderate right hydronephrosis EMERGENT Consult: No MD Notified: No Date Notified: 08/18/23 Time Notified: 11:55 Reason For Visit: N/V Diagnosis Discharge Diagnosis (1) Nausea & vomiting: Status: Acute Code(s): R11.2 - Nausea with vomiting, unspecified Qualifiers: Vomiting type: unspecified Qualified Code(s): R11.2 - Nausea with vomiting, unspecified (2) Weakness: Status: Acute Code(s): R53.1 - Weakness (3) Constipation: Status: Acute Code(s): K59.00 - Constipation, unspecified (4) Hydronephrosis: Status: Acute Code(s): N13.30 - Unspecified hydronephrosis Medications at Discharge Home Medications cholecalciferol (vitamin D3) 25 mcg (1,000 unit) capsule (Vitamin D3) 50 mcg PO DAILY 08/09/16 carvedilol 25 mg tablet 25 mg PO BID 08/24/16 sacubitril 49 mg-valsartan 51 mg tablet (Entresto) 1 tab PO BID 08/24/22 zinc acetate 50 mg (zinc) capsule 50 mg PO DAILY 08/24/22 atorvastatin 10 mg tablet 10 mg PO DAILY 03/04/23 polysaccharide iron complex 150 mg iron capsule (Ferrex) 150 mg PO DAILY #30 caps 03/20/23 potassium chloride 10 mEq capsule,extended release 10 meq PO DAILY 08/07/23 furosemide 40 mg tablet 40 mg PO DAILY #30 tabs 08/10/23 bisacodyl 10 mg rectal suppository 10 mg ND DAILY #0 ea 08/20/23 gabapentin 100 mg capsule 100 mg PO QHS #0 caps 08/20/23 tamsulosin 0.4 mg capsule 0.4 mg PO DAILY@1730 #0 caps 08/20/23 Hospital Course Procedures EGD, EKG and - (Chest x-ray/CT abdomen/CT brain) Summary of Care Provided Minutes Spent on Discharge: 37 Hospital Course: Mr. Ann is an 83-year-old white male who presented to the emergency department at [facility] on 08/16/2023 with generalized weakness, nausea, and vomiting. The patient had a recent hospitalization here from 08/07/2023 through 08/10/2023 for heart failure and was aggressively diuresed. He did very well and did have 1 episode of emesis on the day of discharge but indicated to us that it was not an ongoing issue. Evidently, it has been an ongoing issue and he was brought back to the emergency department due to this and generalized weakness. During that hospitalization he was complaining of dry mouth so we discontinued his nortriptyline and placed him on gabapentin low-dose 200 mg at night. The admitting physician thought that it was may be related to this however it sounds like this has been an ongoing issue prior to the initiation of gabapentin. He was having significant fatigue with exertion and had a mild dizziness failing on presentation. He was admitted to the medical floor and workup was initiated. A CT of his abdomen pelvis was obtained and he had marked distention of the bladder with severe left and moderate right hydronephrosis concerning for urinary retention, no bowel obstruction but large colonic stool burden and mild wall thickening of the gastric ascending colon that was suggestive of peristalsis. With bilateral hydronephrosis, urology was consulted and recommended continuation of Hood at the time of discharge and outpatient follow-up for further workup. He does have a history of TURP and history of retention but plan is for outpatient cystoscopy after discharge. I have asked the patient to follow-up with urology within 1 week as urology a vailability labs. He was placed on an aggressive bowel regimen for his constipation and we were able to get good stool output. He will be maintained on stool softeners and MiraLAX at discharge with a goal for him to be having a bowel movement every 1 to 2 days. As needed enemas and suppositories have been suggested as well for discharge. With the treatment of the above his nausea vomiting has resolved. An EGD was performed to ensure that there is no issue with his esophagus or stomach. This was performed on 08/20/2023 and found localized moderate inflammation characterized by congestion, erosions, and erythema in the gastric antrum. Biopsies were taken here and sent to pathology. The findings were consistent with chronic gastritis and no medication changes were recommended. He was asked to follow-up with gastroenterology as able for biopsy results as Dr. Hartman's availability allows after discharge. We have also asked that he follow-up with his primary care physician within 1 week after discharge from the senior living [facility]. Family was concerned about him going home due to his weakness however he did extremely well with therapy. At this point his is having issues that she has had recent back surgery and is not able to help him so they plan on private pay at [facility] for ongoing rehab until he is stable to go home again. He was started on Flomax in addition to his bowel regimen at the time of discharge. He was discharged home in stable condition on 08/20/2023. He is to continue fluid and sodium restriction at the time of discharge. Discharge diagnoses: Nausea and vomiting-resolved Severe constipation-resolved Bilateral hydronephrosis chronic heart failure with preserved ejection fraction CKD stage IIIb CLL Chronic normocytic anemia History of bilateral hydronephrosis secondary to acute staphylococcal com plicated UTI with acute urinary retention History of nephrolithiasis History of nonischemic cardiomyopathy HTN HPL History of prostate cancer History of BPH with obstruction History of orthostatic hypotension History of neuropathy Vitamin D deficiency History of subdural hematoma Physical Exam Narrative Patient said his nausea and vomiting has resolved. He is able to eat without any difficulty. Having bowel movements with no problem. Const alert, oriented x3, no apparent distress, average body habitus and no limitations; Negative for well nourished Constitutional Narrative: Elderly, white male, sitting up in bed, appears comfortable, son at bedside, nontoxic, watching television General Appearance: cooperative, comfortable, well kempt and well developed Orientation / Consciousness: awake, oriented to person, oriented to place and oriented to time Exam Limitations: no limitations Nutritional Appearance: thin HEENT normocephalic, head/scalp atraumatic and moist oral mucous membranes HEENT Narrative: Moderate hearing loss, Mallampati is 2, no thrush Eyes PERRL, EOMs intact bilaterally and conjunctivae normal Eyes Narrative: No scleral icterus Neck no lymphadenopathy, supple and no JVD Neck Narrative: Trachea midline, no thyroid enlargement Resp normal respiratory effort, no retractions, no use of accessory muscles and clear to auscultation bilaterally Auscultation: Negative for rales, rhonchi or wheezes Cardio regular rate, regular rhythm, S1 normal heart sound, S2 normal heart sound, no murmurs, no rub, no gallops and no clicks GI normal to inspection, nondistended, normoactive bowel sounds, soft to palpation and non-tender Extremity no clubbing, cyanosis or edema Extremity Narrative: Pedal pulses and radial pulses are 2+ Skin no rashes or lesions noted, no wounds, skin turgor normal and no jaundice Neuro oriented x3, CN's II-XII intact bilaterally, moves all extremities and no focal motor deficits Speech: speech normal Psych affect normal Psych Narrative: Very pleasant, jovial, interacts appropriately Medical Records Data Medical Nutrition Assessment Dietitian: Malnutrition Criteria Met Start: 08/17/23 13:12 Freq: Status: Active Protocol: Document 08/17/23 13:13 SLA (Rec: 08/17/23 13:13 SLA Desktop) Nutrition Malnutrition Evidence of Malnutrition Exists Yes Malnutrition (severe): Acute Illness/Injury Evidenced By Suboptimal Energy Intake ( Severe),Weight Loss (Severe) Clinical Problem Acute Disease or Injury Related Malnutrition Etiology related to GI dysfunction, therapeutic diet and inadequate energy intake Signs/Symptoms as evidenced by n/v since discharge from hospital 08/09 w / 7% wt loss and po intake meeting <75% of est nutritional needs Status Active Problem Recommendation Dietitian Recommendations/Changes Will change diet to Cardiac/ Sodium Restricted w/ Ensure Compact at meals - suggest fluid restriction if indicated by MD Available if additional diet education desired prior to d/c . Weight / BMI Weight Weight: 72.575 kg Body Mass Index (BMI) 22.9 ABG / Lab / Microbiology Data 08/20/23 04:20 08/20/23 04:20 Laboratory: Laboratory Results - last 24 hr 08/20/23 04:20: WBC 48.2 H*, RBC 3.64 L, Hgb 9.7 L, Hct 31.9 L, MCV 87.6, MCH 26.6 L, MCHC 30.4 L, RDW Std Deviation 55.8 H, RDW Coeff of Willie 17.4 H, Plt Count 213, MPV 10.6, Differential Comment SCANNED, Diff Path Review September foll, Sodium 144, Potassium 3.9, Chloride 109 H, Carbon Dioxide 32.0, Anion Gap 3 L, BUN 42 H, Creatinine 1.90 H, Estim Creat Clear Calc 29.18, Est GFR (MDRD) Af Amer 44 L, Est GFR (MDRD) Non-Af 36 L, BUN/Creatinine Ratio 22.1 H, Glucose 123 H, Calcium 8.8 Microbiology: Microbiology 08/16/23 12:10 Mucosa - Nose SARS-CoV-2, Influenza & RSV (PCR) - Final D/C Instructions Discharge Diet: Low fat / Low cholesterol (Sodium restriction to 2 g daily/fluid restriction to 2 L daily) Discharge Activity: Return to Normal Activity Please Follow Up With: Henry Cooper MD Meaningful Use Info Meaningful Use Diagnoses (Choose all that apply): None applicable Discharge Plan Admission Admit Date/Time: 08/16/23 13:43 Primary Reason for Your Visit: Nausea and vomiting Attending Provider: Kate Horton Primary Care Provider: German Gu NP Consulting Providers: Lamont Castillo; Harpreet Hartman; Waylon Sanches Instructions Additional Instructions / Restrictions: 1. Hood is to stay in place until evaluated by urology Discharge Orders/Prescriptions Prescriptions: New tamsulosin 0.4 mg Capsule 0.4 mg PO DAILY@1730 Qty: 0 0RF bisacodyl 10 mg Suppository 10 mg ND DAILY Qty: 0 0RF gabapentin 100 mg Capsule 100 mg PO QHS Qty: 0 0RF Continued Entresto 49-51 mg tablet 1 tab PO BID Hold Instructions: Resume on 03/15/23. zinc acetate 50 mg (zinc) capsule 50 mg PO DAILY polysaccharide iron complex [Ferrex 150] 150 mg iron capsule 150 mg PO DAILY Qty: 30 1RF cholecalciferol (vitamin D3) [Vitamin D3] 1,000 UNIT capsule 50 mcg PO DAILY carvedilol 25 MG tablet 25 mg PO BID atorvastatin 10 mg tablet 10 mg PO DAILY potassium chloride 10 mEq capsule, extended release 10 meq PO DAILY furosemide 40 mg Tablet 40 mg PO DAILY Qty: 30 1RF Discontinued gabapentin 100 mg Capsule 200 mg PO QHS Qty: 60 1RF Referrals / Follow Up: Henry Cooper MD [Med Staff - Active Staff] - Within 1 Week (Keep Hood in until evaluated by urology) German Gu COMP FIELD CASE MANAGER, COMP FIELD CASE MANAGER-C [Primary Care Provider] - Within 1 Week (After discharge from nursing facility) Disposition Disposition (needs filled in before D/C Order can be placed): Group Home Facility Charges/Coding Visit Charges Inpatient E&M: 70805 SNF Disch >30 Min
--- NOTE | 2023-08-20 15:32 | PHA.DC.MR.R ---
Pharmacy [place] Med Reconciliation Pharmacy Service has performed discharge medication reconciliation for this patient. The patient's discharge medication list was reviewed for discrepancies and discrepancies were resolved. Medications at Discharge Home Medications cholecalciferol (vitamin D3) 25 mcg (1,000 unit) capsule (Vitamin D3) 50 mcg PO DAILY 08/09/16 carvedilol 25 mg tablet 25 mg PO BID 08/24/16 sacubitril 49 mg-valsartan 51 mg tablet (Entresto) 1 tab PO BID 08/24/22 zinc acetate 50 mg (zinc) capsule 50 mg PO DAILY 08/24/22 atorvastatin 10 mg tablet 10 mg PO DAILY 03/04/23 polysaccharide iron complex 150 mg iron capsule (Ferrex) 150 mg PO DAILY #30 caps 03/20/23 potassium chloride 10 mEq capsule,extended release 10 meq PO DAILY 08/07/23 furosemide 40 mg tablet 40 mg PO DAILY #30 tabs 08/10/23 bisacodyl 10 mg rectal suppository 10 mg NE DAILY #0 ea 08/20/23 gabapentin 100 mg capsule 100 mg PO QHS #0 caps 08/20/23 tamsulosin 0.4 mg capsule 0.4 mg PO DAILY@1730 #0 caps 08/20/23
[2023-08-20] MEDS: Tamsulosin HCl 0.4 MG Capsule PO (17:45)
--- NOTE | 2023-08-20 21:37 | NURSING ---
Report called to RAMONITA Garcia at [facility]
[2023-08-21 08:49] LABS: Pathologist Review Reviewed
[2023-08-21 08:52] LABS: Pathologist Review Reviewed
[2023-08-21 08:53] LABS: Pathologist Review Reviewed
[2023-08-21 09:07] LABS: Pathologist Review Reviewed
== END 2023-08-20 21:05 | disposition skilled nursing facility (03) | DRG 391 ==
LOC: ED 14:00 → MS3 15:27
PROVIDERS: Hospitalist; Internal Medicine Gastroenterology; Nurse Practitioner; Admitting Provider Internal Medicine; Emergency Provider Emergency Medicine; PCP Nurse Practitioner Primary Care; Visit Provider Internal Medicine
PROC: 0DJ08ZZ Inspection of Upper Intestinal Tract, Via Natural or Artificial Opening Endoscopic (ICD-10-PCS; CPT 43235; principal; 2023-08-20 12:25)
DX: K59.09 Other constipation (principal); E43 Unspecified severe protein-calorie malnutrition; I42.8 Other cardiomyopathies; I13.0 Hypertensive heart and chronic kidney disease with heart failure and stage 1 through stage 4 chronic kidney disease, or unspecified chronic kidney disease; N13.39 Other hydronephrosis; C91.10 Chronic lymphocytic leukemia of B-cell type not having achieved remission; I50.32 Chronic diastolic (congestive) heart failure; N18.32 Chronic kidney disease, stage 3b; D50.9 Iron deficiency anemia, unspecified; K29.50 Unspecified chronic gastritis without bleeding; E86.0 Dehydration; E78.00 Pure hypercholesterolemia, unspecified; E55.9 Vitamin D deficiency, unspecified; G62.9 Polyneuropathy, unspecified; I25.2 Old myocardial infarction; N40.1 Benign prostatic hyperplasia with lower urinary tract symptoms; R33.8 Other retention of urine; R62.7 Adult failure to thrive; R53.1 Weakness; Z66 Do not resuscitate; Z68.22 Body mass index [BMI] 22.0-22.9, adult; Z95.810 Presence of automatic (implantable) cardiac defibrillator; Z79.899 Other long term (current) drug therapy; Z85.46 Personal history of malignant neoplasm of prostate; Z86.79 Personal history of other diseases of the circulatory system; Z87.442 Personal history of urinary calculi
CPT/HCPCS: 36415; 70450; 71045; 74176; 80048; 80053; 81001; 83690; 83735; 83880; 84484; 85025; 85027; 87426; 87631; 88305; 88342; 93005; 94668; 97162; 97166; 97530; 99284; J7030; J7040; J7120; A4216; J2405

== ENCOUNTER → 2023-09-18 | Outpatient (CLI) | payer MEDICARE, SELFPAY ==
[2023-09-18 11:21] LABS: Anion Gap 4 (5-15); BUN 59 mg/dL (7-18); BUN/Creat Ratio 28.6 RATIO (10-20); Calcium,Total 9.1 mg/dL (8.5-10.1); Chloride 108 mmol/L (98-107); Creatinine, Serum 2.06 mg/dL (0.70-1.30); EST Glomerular Filtration Rate 33 mL/min (>60); Est Glom Filt Rate - Afr Amer 40 mL/min (>60); Glucose 127 mg/dL (74-106); Potassium 4.4 mmol/L (3.5-5.1); Sodium Level 143 mmol/L (136-145)
== END | disposition home or self-care (01) ==
LOC: LAB 10:34
PROVIDERS: PCP Nurse Practitioner Primary Care; Referring Provider Internal Medicine Cardiovascular Disease; Visit Provider Internal Medicine Cardiovascular Disease
DX: N18.9 Chronic kidney disease, unspecified (principal)
CPT/HCPCS: 36415; 80048

== ENCOUNTER → 2023-11-08 | Outpatient (CLI) | payer MEDICARE, SELFPAY | END | disposition home or self-care (01) | LOC: LABSPEC 15:50 | PROVIDERS: PCP Nurse Practitioner Primary Care; Referring Provider Urology; Visit Provider Urology | DX: R30.0 Dysuria (principal) | CPT/HCPCS: 87077; 87086; 87088 ==

== ENCOUNTER → 2023-11-23 | Outpatient (CLI) | payer MEDICARE, SELFPAY ==
[2023-11-23 13:40] LABS: Anion Gap 5 (5-15); BUN 59 mg/dL (7-18); BUN/Creat Ratio 23.5 RATIO (10-20); Calcium,Total 8.9 mg/dL (8.5-10.1); Chloride 109 mmol/L (98-107); Creatinine, Serum 2.51 mg/dL (0.70-1.30); EST Glomerular Filtration Rate 26 mL/min (>60); Est Glom Filt Rate - Afr Amer 32 mL/min (>60); Glucose 124 mg/dL (74-106); Potassium 4.6 mmol/L (3.5-5.1); Sodium Level 140 mmol/L (136-145)
== END | disposition home or self-care (01) ==
LOC: LAB 12:13
PROVIDERS: PCP Nurse Practitioner Primary Care; Referring Provider Internal Medicine Cardiovascular Disease; Visit Provider Internal Medicine Cardiovascular Disease
DX: I42.8 Other cardiomyopathies (principal)
CPT/HCPCS: 36415; 80048

== ENCOUNTER → 2023-12-07 | Outpatient (CLI) | payer MEDICARE, SELFPAY ==
[2023-12-07 09:49] LABS: Anion Gap 5 (5-15); BUN 39 mg/dL (7-18); Calcium,Total 8.9 mg/dL (8.5-10.1); Chloride 111 mmol/L (98-107); Creatinine, Serum 2.17 mg/dL (0.70-1.30); EST Glomerular Filtration Rate 31 mL/min (>60); Est Glom Filt Rate - Afr Amer 37 mL/min (>60); Glucose 153 mg/dL (74-106); Potassium 4.3 mmol/L (3.5-5.1); Sodium Level 143 mmol/L (136-145)
== END | disposition home or self-care (01) ==
LOC: LAB 09:10
PROVIDERS: PCP Nurse Practitioner Primary Care; Visit Provider Internal Medicine Cardiovascular Disease
DX: N18.32 Chronic kidney disease, stage 3b (principal)
CPT/HCPCS: 36415; 80048

== ENCOUNTER → 2024-01-17 | Outpatient (CLI) | payer MEDICARE, SELFPAY ==
[2024-01-17 13:22] LABS: Anion Gap 6 (5-15); BUN 47 mg/dL (7-18); BUN/Creat Ratio 24.5 RATIO (10-20); Calcium,Total 9.1 mg/dL (8.5-10.1); Chloride 111 mmol/L (98-107); Creatinine, Serum 1.92 mg/dL (0.70-1.30); EST Glomerular Filtration Rate 36 mL/min (>60); Est Glom Filt Rate - Afr Amer 43 mL/min (>60); Glucose 98 mg/dL (74-106); Potassium 4.2 mmol/L (3.5-5.1); Sodium Level 143 mmol/L (136-145)
== END | disposition home or self-care (01) ==
PROVIDERS: PCP Nurse Practitioner Primary Care; Referring Provider Nurse Practitioner Primary Care; Visit Provider Nurse Practitioner Primary Care
DX: I12.9 Hypertensive chronic kidney disease with stage 1 through stage 4 chronic kidney disease, or unspecified chronic kidney disease (principal); N18.4 Chronic kidney disease, stage 4 (severe)
CPT/HCPCS: 36415; 80048

== ENCOUNTER → 2024-04-07 | Outpatient (CLI) | payer MEDICARE, SELFPAY ==
[2024-04-07 16:06] LABS: PSA,Total- Diagnostic 0.03 ng/mL (0.0-4.0)
== END | disposition home or self-care (01) ==
LOC: LAB 14:56
PROVIDERS: PCP Nurse Practitioner Primary Care; Referring Provider Urology; Visit Provider Urology
DX: C61 Malignant neoplasm of prostate (principal)
CPT/HCPCS: 36415; 84153

== ENCOUNTER → 2024-06-23 | Outpatient (CLI) | payer MEDICARE, SELFPAY ==
--- NOTE | 2024-06-23 17:01 | RAD_ITS ---
PROCEDURE: CHEST PA AND LATERAL REASON FOR EXAM: Productive cough. TECHNIQUE: Frontal and lateral views of the chest. COMPARISON: Chest x-ray from 08/16/2023. FINDINGS: Mild cardiomegaly is present. Pulmonary vasculature is within normal limits. No consolidation, pleural effusion, or pneumothorax is present. Left-sided pacemaker is present. Mild bibasilar atelectatic changes are present. RAD/Chest PA and Lateral IMPRESSION: No acute cardiopulmonary process. Reading Location: [facility]
== END | disposition home or self-care (01) ==
LOC: MTRAD 17:01
PROVIDERS: PCP Family Medicine; Referring Provider Family Medicine; Visit Provider Family Medicine
DX: R05.8 Other specified cough (principal)
CPT/HCPCS: 71046

== ENCOUNTER → 2024-07-09 | Outpatient (CLI) | payer MEDICARE, SELFPAY ==
--- NOTE | 2024-07-09 18:49 | CT_ITS ---
PROCEDURE: Noncontrast CT of the abdomen. 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 TECHNIQUE: Contiguous unenhanced axial CT images were obtained through the abdomen. Sagittal and coronal reformats were created. COMPARISON: 08/17/2023 FINDINGS: Bones are osteopenic with degenerative changes in the spine. There is similar severe compression/vertebral plana deformity of the T12 vertebral body. There is similar posterior cortical retropulsion of T12 and [id number] central spinal canal narrowing. Evaluation of the solid organs and vascular structures is limited due to lack of intravenous contrast. Heart is not enlarged. No sizable pericardial effusion. Moderate coronary artery calcifications. Lower ribs intact. Some increased scarring or subsegmental atelectasis in the lower lobes. There is moderate enteric contrast in the stomach. Streak artifact from embolization coil in the left upper abdomen, between the posterior stomach and spleen, similar to the previous study. Multiple low-attenuation probable cysts of the liver, measuring up to 3.4 cm, not significantly changed. Probable gallstones in the gallbladder lumen without evidence of acute cholecystitis. The gallbladder undo that the common duct measures 9 mm near the level of the pancreatic head, probably not significantly different. There is a 17 mm filling defect/area of nodularity at the medial aspect 1st segment of the duodenum on image 67 of the axial images. This is not well evaluated on the prior study due to lack of oral contrast. No abnormally dilated bowel segments of the abdomen. Moderate colonic diverticulosis. Moderate stool in the colon. Normal appendix. The adrenal glands are unremarkable. Heterogeneous/lobulated appearance of the spleen similar to the prior study. No focal abnormality of the pancreas on the provided noncontrast images. There is similar to slightly worsened moderate dilation of the right renal collecting system and included right ureter without obstructing calculus. There is severe worsened distention of the left renal collecting system and left renal pelvis, as well as the included left ureter. The lower pelvis is not included on this study. A 3.7 cm probable proteinaceous cyst at the medial aspect of the left kidney is not significantly changed from the prior study. The abdominal aorta is normal in caliber with a moderate amount of atherosclerotic calcification. There are either tortuous vascular structures in the upper abdomen/left retroperitoneum versus adenopathy in these locations, not significantly changed from 08/17/2023. 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 This is not well demonstrated/evaluated o n the prior study due to lack of intravenous contrast. The common duct measures 9 mm near the pancreatic head, which can be within normal limits for patient of this age. There are either tortuous vascular structures or adenopathy in the upper abdome n and left retroperitoneum, not significantly changed from the prior study. Similar moderate distention/dilation of the right renal pelvis and right ureter and worsened severe distention of the left renal pelvis and left ureter. The distal ureters are not included on this examinatio n. No radiopaque obstructing calculus. Colonic diverticulosis, partially included. Similar lobulated heterogeneous ap pearance of the spleen. Embolization coil in the upper abdomen, between the posterior stomach and spleen, similar to the previou s study. Similar hepatic cysts. One or more dose reduction techniques were used (e.g., Automated exposure contr ol, adjustment of the mA and/or kV according to patient size, use of iterative reconstruction technique). Reading Location: [facility]
== END | disposition home or self-care (01) ==
LOC: CT 18:47
PROVIDERS: PCP Family Medicine; Visit Provider Nurse Practitioner Family
DX: C24.1 Malignant neoplasm of ampulla of Vater (principal)
CPT/HCPCS: 74150

== ENCOUNTER → 2024-09-04 | Outpatient (CLI) | payer MEDICARE, SELFPAY ==
[2024-09-04 12:27] LABS: Absolute Lymphocyte Count 42.57 X10^3/uL (0.83-4.51); Absolute Neutrophil Count 6.1 X10^3/uL (2.0-7.7); Basophil% 0.4 % (0-1); Eosinophil# 0.46 X10^3/uL; Eosinophils% 0.9 % (0-5); Hematocrit 32.2 % (40-54); Hemoglobin 9.8 g/dL (13.0-16.5); Lymphocyte # 42.57 X10^3/ul (0.83-4.51); Lymphocyte % 84.4 % (19-41); Mean Corp Hgb Conc 30.4 g/dL (32-36); Mean Corpuscular Hgb 27.4 pg (27.0-32.0); Mean Corpuscular Volume 89.9 fL (80-94); Mean Platelet Vol. 9.8 fl (6.2-12.0); Monocyte# 0.96 X10^3/uL; Monocyte% 1.9 % (0-10); NRBC Flagged by Analyzer 0 % (0-5); Neutrophil % 12.1 % (47-70); POSITIVE COUNT YES; POSITIVE DIFFERENTIAL YES; POSITIVE MORPHOLOGY YES; Platelet Count 198 K/mm3 (150-450); RBC Distribution Width CV 18.1 % (11.6-14.6); RBC Distribution Width SD 59.2 fl (35.1-43.9); Red Blood Count 3.58 M/mm3 (4.6-6.2)
[2024-09-04 12:37] LABS: Differential Indicated SCAN CRITERIA MET; White Blood Count 50.5 K/mm3 (4.4-11.0)
[2024-09-04 13:04] LABS: Anion Gap 8 (5-15); BUN 44 mg/dL (4-19); BUN/Creat Ratio 26.4 RATIO (10-20); Calcium,Total 8.7 mg/dL (7.6-11.0); Carbon Dioxide 25.7 mmol/L (21.0-32.0); Chloride 108 mmol/L (98-108); Creatinine, Serum 1.65 mg/dL (0.70-1.20); EST Glomerular Filtration Rate 40 (>60); Glucose 88 mg/dL (70-99); Potassium 4.7 mmol/L (3.3-5.1); Sodium Level 141 mmol/L (133-145)
[2024-09-04 13:49] LABS: Smudge Cells 2+
== END | disposition home or self-care (01) ==
LOC: LAB 12:04
PROVIDERS: PCP Family Medicine; Referring Provider Internal Medicine Cardiovascular Disease; Visit Provider Internal Medicine Cardiovascular Disease
DX: C91.10 Chronic lymphocytic leukemia of B-cell type not having achieved remission (principal); I42.8 Other cardiomyopathies
CPT/HCPCS: 36415; 80048; 85025

== ENCOUNTER → 2024-10-13 | Outpatient (CLI) | payer MEDICARE, SELFPAY ==
--- NOTE | 2024-10-13 12:48 | RAD_ITS ---
PROCEDURE: CHEST PA AND LATERAL 10/13/2024 REASON FOR EXAM: COUGH, RECENT BRONCHITIS TECHNIQUE: Frontal and lateral views of the chest. COMPARISON: 06/23/2024 FINDINGS: Bibasilar subsegmental atelectasis. No definite focal consolidations. Mild pulmonary vascular congestion. Stable bazg-yn-lkmzuaet cardiomegaly. Atherosclerotic aortic arch. Left chest pacer. No pleural effusion or pneumothorax. Extensive degenerative changes of the thoracic spine with stable multilevel compression deformities. RAD/Chest PA and Lateral IMPRESSION: Bibasilar subsegmental atelectasis. No definite focal consolidations. Mild pul monary vascular congestion. Stable ivyg-pg-lpwqqckn cardiomegaly. Atherosclerotic Reading Location: [id number]
[2024-10-13 15:28] LABS: Absolute Lymphocyte Count 27.67 X10^3/uL (0.83-4.51); Absolute Neutrophil Count 3.8 X10^3/uL (2.0-7.7); Basophil% 0.6 % (0-1); Eosinophils% 1.5 % (0-5); Hematocrit 33.5 % (40-54); Hemoglobin 10.2 g/dL (13.0-16.5); Lymphocyte # 27.67 X10^3/ul (0.83-4.51); Lymphocyte % 80.6 % (19-41); Mean Corp Hgb Conc 30.4 g/dL (32-36); Mean Corpuscular Hgb 27.3 pg (27.0-32.0); Mean Corpuscular Volume 89.8 fL (80-94); Mean Platelet Vol. 10.2 fl (6.2-12.0); Monocyte# 2.02 X10^3/uL; Monocyte% 5.9 % (0-10); NRBC Flagged by Analyzer 0.1 % (0-5); Neutrophil # 3.78 X10^3/uL (2.7-7.7); POSITIVE COUNT YES; POSITIVE DIFFERENTIAL YES; POSITIVE MORPHOLOGY YES; Platelet Count 261 K/mm3 (150-450); RBC Distribution Width CV 17.3 % (11.6-14.6); RBC Distribution Width SD 56.5 fl (35.1-43.9); Red Blood Count 3.73 M/mm3 (4.6-6.2)
[2024-10-13 15:37] LABS: Anion Gap 11 (5-15); BUN 46 mg/dL (4-19); BUN/Creat Ratio 23.1 RATIO (10-20); Calcium,Total 9.3 mg/dL (7.6-11.0); Carbon Dioxide 25.6 mmol/L (21.0-32.0); Chloride 104 mmol/L (98-108); Creatinine, Serum 1.99 mg/dL (0.70-1.20); EST Glomerular Filtration Rate 32 (>60); Glucose 176 mg/dL (70-99); Potassium 4.6 mmol/L (3.3-5.1); Sodium Level 141 mmol/L (133-145)
[2024-10-13 16:01] LABS: Pro- Brain NATRIURETIC PEPTIDE 2639 pg/mL (<=1800)
[2024-10-13 16:03] LABS: Differential Indicated SCAN CRITERIA MET; White Blood Count 34.3 K/mm3 (4.4-11.0)
[2024-10-13 21:21] LABS: Atypical Lymphocyte 2+ %
[2024-10-13 21:22] LABS: Acanthocytes 1+; Ovalocyte 1+; Platelet Estimate A (ADEQ); Red Cell Morphology NORM C+C NORMAL (NORM C&C)
[2024-10-14 05:32] LABS: Pathologist Review May foll
== END | disposition home or self-care (01) ==
LOC: MTLAB 12:46
PROVIDERS: PCP Family Medicine; Referring Provider Nurse Practitioner Family; Visit Provider Nurse Practitioner Family
DX: R05.9 Cough, unspecified (principal)
CPT/HCPCS: 36415; 71046; 80048; 83880; 85025

== ENCOUNTER 2024-10-20 14:51 | Outpatient (CLI) | payer MEDICARE, SELFPAY ==
[2024-10-20 16:26] LABS: Anion Gap 11 (5-15); BUN 52 mg/dL (4-19); Calcium,Total 9.3 mg/dL (7.6-11.0); Carbon Dioxide 27.3 mmol/L (21.0-32.0); Chloride 105 mmol/L (98-108); Creatinine, Serum 2.27 mg/dL (0.70-1.20); EST Glomerular Filtration Rate 27 (>60); Glucose 111 mg/dL (70-99); Potassium 4.6 mmol/L (3.3-5.1); Sodium Level 143 mmol/L (133-145)
--- OUTSIDE RECORDS SUMMARY | 2024-10-20 23:54 | XMS RPT_ITS | CCD ---
Author Organization [facility] Care Team Providers Care Planner/Scheduler Name Role Phone FUNMILAYO HORNE Unavailable Unavailable [facility] Unavailable Unavailable [facility] Unavailable Unavailable FUNMILAYO HORNE Unavailable Unavailable FUNMILAYO HORNE Unavailable Unavailable IMCA Unavailable Unavailable Richard ALCOCER, Emma Key Unavailable RICCARDO BUYER ASSISTANT-KENN OLIVIA Primary Care Physician (33 [phone]) Domingo PT, Carin Unavailable Unavailable [facility] BUYER ASSISTANT.Kenn OLIVIA Primary Care Provider [phone] Jenaro Hong Jr. Unavailable Apple Barnett MD Unavailable Hal Ballard MD, Richard W Unavailable Riccardo BUYER ASSISTANT.Kenn OLIVIA Primary Care Provider [phone] Hal Ballard MD, Richard W Unavailable Apple Barnett MD Unavailable [phone] RICCARDO BUYER ASSISTANT-KENN OLIVIA Primary Care Physician (33 [phone]) Riccardo BUYER ASSISTANT.Kenn OLIVIA Primary Care Provider [phone] Hal Ballard MD, Richard W Unavailable Apple Barnett MD Unavailable Apple Barnett MD Unavailable Riccardo GARNETT FEEDER, GARNETT FEEDER-C Kenn Primary Care Provider [phone] Dr. Yovani Crenshaw Emergency Provider Dr. Waylon Sanches Admit Provider Dr. Waylon Sanches Attending Provider Dr. Waylon Sanches Other Provider Dr. Laura Bowman Attending Provider Dr. Laura Bowman Other Provider Kenneth, Dr. Janine Horton Admit Provider Kenneth, Dr. Janine Horton Other Provider Friend, Dr. Mullins Other Provider Dr. Braxton Powers Attending Provider Dr. Braxton Powers Other Provider Friend, Dr. Mullins Attending Provider [phone] Dr. Mehreen Cavazos Other Provider Unavailable Dr. Mehreen Cavazos Attending Provider Unavailable Riccardo GARNETT FEEDER, GARNETT FEEDER-C Kenn Primary Care Provider [phone] Dr. Yovani Crenshaw Emergency Provider Dr. Waylon Sanches Admit Provider [phone] Dr. Waylon Sanches Attending Provider Dr. Waylon Sanches Other Provider Dr. Laura Bowman Attending Provider Dr. Laura Bowman Other Provider Kenneth, Dr. Janine Horton Admit Provider Kenneth, Dr. Janine Horton Other Provider Devan, Dr. Mullins Other Provider Dr. Braxton Powers Attending Provider Dr. Braxton Powers Other Provider Devan, Dr. Mullins Attending Provider [phone] Dr. Mehreen Cavazos Other Provider Unavailable Dr. Mehreen Cavazos Attending Provider Unavailable Dr. Maria Esther Garza Attending Provider Dr. Mehreen Cavazos Referring Provider Unavailable Riccardo GARNETT FEEDER, GARNETT FEEDER-C Kenn Referring Provider [phone] Dr. aEn Bush Attending Provider EDISON Mayo Attending Provider Dr. Boston Jung Emergency Provider Dr. Zari Jose Admit Provider Dr. Zari Jose Other Provider Dr. Yovani Soto Attending Provider Dr. Yovani Soto Other Provider Dr. Yovani Pierce Attending Provider Dr. Sailaja Cuevas Attending Provider Baltes NURSING UNIT CLERK, Kenn Primary Care Provider [phone] Dr. Mehreen Cavazos Referring Provider Unavailable Dr. Zari Jose Referring Provider Dr. Marco Antonio Recinos Attending Provider Dr. Marco Antonio Recinos Other Provider BALTES, KENN Primary Care Unavailable BALTES, KENN Primary Care Unavailable CHIQUI, LAMINE Referring Unavailable HSICH, APPLE M Referring Unavailable BALTES, KENN Primary Care Unavailable HSICH, APPLE M Attending Unavailable BALTES, KENN Primary Care Unavailable KERA DICKSON Referring Unavailable BALTES, KENN Primary Care Unavailable CHIQUI, LAMINE Attending Unavailable CHIQUI, LAMINE Referring Unavailable BALTES, KENN Primary Care Unavailable CHIQUI, LAMINE Referring Unavailable CHIQUILAMINE Admitting Unavailable CHIQUILAMINE Attending Unavailable HSICH, APPLE M Referring Unavailable BALTES, KENN Primary Care Unavailable HSICH, APPLE M Referring Unavailable BALTES, KENN Primary Care Unavailable HSICH, APPLE M Attending Unavailable BALTES, KENN Primary Care Unavailable CHIQUI, LAMINE Referring Unavailable BALTES, KENN Primary Care Unavailable WILKOFFKERA Referring Unavailable BALTES, KENN Primary Care Unavailable CHIQUI, LAMINE Referring Unavailable CHIQUI, LAMINE Attending Unavailable BALTES, KENN Primary Care Unavailable CHIQUI, LAMINE Referring Unavailable HSICH, APPLE M Attending Unavailable BALTES, KENN Primary Care Unavailable HSICH, APPLE M Referring Unavailable BALTES, KENN Primary Care Unavailable BALTES, KENN Primary Care Unavailable HSICH, APPLE M Referring Unavailable BALTES, KENN Primary Care Unavailable LAMINE KATZ Admitting Unavailable LAMINE KATZ Attending Unavailable KATE AGUIRRE Attending Unavailable BALTES, KENN Primary Care Unavailable BALTES, KENN Primary Care Unavailable JAVON PINEDA Attending Unavailable KATE AGUIRRE Referring Unavailable KATE AGUIRRE Attending Unavailable BALTES, KENN Primary Care Unavailable Baltes GARNETT FEEDER, GARNETT FEEDER-C Kenn Primary Care Provider [phone] Baltes GARNETT FEEDER, GARNETT FEEDER-C Kenn Referring Provider [phone] Dr. Ean Bush Attending Provider Dr. Ian Lujan Emergency Provider Dr. Yovani Soto Admit Provider Dr. Yovani Soto Attending Provider Dr. Yovani Soto Other Provider Dr. Keyana Pal Attending Provider Dr. Kate Horton Attending Provider Dr. Kate Horton Other Provider Baltes GARNETT FEEDER, GARNETT FEEDER-C Kenn Primary Care Provider [phone] Baltes GARNETT FEEDER, GARNETT FEEDER-C Kenn Referring Provider [phone] Dr. Ean Bush Attending Provider Dr. Latesha Heredia Emergency Provider Dr. Lamont Castillo Attending Provider Dr. Lamont Castillo Admit Provider Dr. Lamont Castillo Other Provider Dr. Waylon Sanches Attending Provider Dr. Waylon Sanches Other Provider Friend, Dr. Mullins Other Provider Friend, Dr. Mullins Attending Provider BALTES BUYER ASSISTANT-NURSING UNIT CLERK, KENN Attending Unavailabl e BALTES BUYER ASSISTANT-NURSING UNIT CLERK, KENN Primary Care Unavailabl e DR SWAPNIL SEN MD Attending Un available BALTES BUYER ASSISTANT-NURSING UNIT CLERK, KENN Primary Care Unavailabl e BALTES BUYER ASSISTANT-NURSING UNIT CLERK, KENN Attending Unavailabl e BALTES BUYER ASSISTANT-NURSING UNIT CLERK, KENN Primary Care Unavailabl e BALTES BUYER ASSISTANT-NURSING UNIT CLERK, KENN Attending Unavailabl e BALTES BUYER ASSISTANT-NURSING UNIT CLERK, KENN Primary Care Unavailabl e FRANCY MCKEON, DR KRAFT Attending Un available BALTES BUYER ASSISTANT-NURSING UNIT CLERK, KENN Primary Care Unavailabl e BALTES BUYER ASSISTANT-NURSING UNIT CLERK, KENN Attending Unavailabl e BALTES BUYER ASSISTANT-NURSING UNIT CLERK, KENN Primary Care Unavailabl e BALTES BUYER ASSISTANT-NURSING UNIT CLERK, KENN Attending Unavailabl e BALTES BUYER ASSISTANT-NURSING UNIT CLERK, KENN Primary Care Unavailabl e BALTES BUYER ASSISTANT-NURSING UNIT CLERK, KENN Attending Unavailabl e BALTES BUYER ASSISTANT-NURSING UNIT CLERK, KENN Primary Care Unavailabl e BALTES BUYER ASSISTANT-NURSING UNIT CLERK, KENN Attending Unavailabl e BALTES BUYER ASSISTANT-NURSING UNIT CLERK, KENN Primary Care Unavailabl e RFANCY MCKEON, DR KRAFT Attending Un available BALTES BUYER ASSISTANT-NURSING UNIT CLERK, KENN Primary Care Unavailabl e FRANCY MCKEON, DR KRAFT Attending Un available BALTES BUYER ASSISTANT-NURSING UNIT CLERK, KENN Primary Care Unavailabl e BALTES BUYER ASSISTANT-NURSING UNIT CLERK, KENN Attending Unavailabl e BALTES BUYER ASSISTANT-NURSING UNIT CLERK, KENN Primary Care Unavailabl e Baltes NURSING UNIT CLERK, Kenn Primary Care Provider [phone] BALTES BUYER ASSISTANT-NURSING UNIT CLERK, KENN Attending Unavailabl e BALTES BUYER ASSISTANT-NURSING UNIT CLERK, KENN Primary Care Unavailabl e Baltes GARNETT FEEDER-C, Kenn Primary Care Provider [phone] Kenneth MCKEON, Dr. Janine Horton Attending Provider Dr. Janine Payne MD Referring Provider [phone] Dr. Juan Banegas MD Attending Provider Dr. Ean Bush MD Attending Provider Leona Parra MD Primary Care Provider Leona Parra MD Attending Provider Leona Parra MD Referring Provider [phone] Bandar GARNETT FEEDER-C, Sherri Attending Provider Riccardo GARNETT FEEDER-C, Kenn Referring Provider 1([facility])754-[address] [place] [address] GARNETT FEEDER-Yehuda Garrett Attending Provider Bandar GARNETT FEEDER, Sherri Attending Unavailable Aida, Chalon Primary Care Unavailable Makenzie, Juan Attending Unavailable Aida, Chalon Primary Care Unavailable Loc Thorne Attending Unavailable Baltes GARNETT FEEDER, Kenn Referring Unavailable Baltes GARNETT FEEDER, Kenn Primary Care Unavailable Loc Thorne Attending Unavailable Baltes GARNETT FEEDER, Kenn Primary Care Unavailable Kenneth, Long Referring Unavailable Baltes GARNETT FEEDER, Kenn Primary Care Unavailable Ean Bush Attending Unavailable Baltes GARNETT FEEDER, Kenn Primary Care Unavailable Baltes GARNETT FEEDER, Kenn Referring Unavailable Baltes GARNETT FEEDER, Kenn Attending Unavailable Kenneth, Long Referring Unavailable Kenneth, Janine Horton Attending Unavailable Baltes GARNETT FEEDER, Kenn Primary Care Unavailable Aida, Chalon Attending Unavailable Aida, Chalon Primary Care Unavailable Aida, Chalon Referring Unavailable Aida, Chalon Referring Unavailable Blue GARNETT FEEDER, Rola Attending Unavailable Aida, Chalon Primary Care Unavailable Loc Thorne Referring Unavailable Loc Thorne Attending Unavailable Aida, Chalon Primary Care Unavailable Aida, Chalon Primary Care Unavailable Ean Bush Attending Unavailable Aida, Chalon Referring Unavailable Makenzie, Littleton Attending Unavailable Aida, Chalon Primary Care Unavailable Loc Thorne Attending Unavailable Aida, Chalon Primary Care Unavailable Aida, Chalon Referring Unavailable Makenzie, Littleton Attending Unavailable Baltes GARNETT FEEDER, Kenn Primary Care Unavailable Roof GARNETT FEEDER, Yehuda Hawley Attending Unavailable Baltes GARNETT FEEDER, Kenn Primary Care Unavailable Baltes GARNETT FEEDER, Kenn Referring Unavailable Makenzie, Littleton Attending Unavailable Baltes GARNETT FEEDER, Kenn Primary Care Unavailable Bandar GARNETT FEEDER, Sherri Attending Unavailable Aida, Chalon Primary Care Unavailable Aida, Chalon Referring Unavailable Roof GARNETT FEEDER, Yehuda Hawley Attending Unavailable Aida, Chalon Primary Care Unavailable Baltes GARNETT FEEDER, Kenn Referring Unavailable Aida, Chalon Referring Unavailable Aida, Chalon Primary Care Unavailable Makenzie, Littleton Attending Unavailable Kenneth, Long Referring Unavailable Kenneth, Long Attending Unavailable Baltes GARNETT FEEDER, Kenn Primary Care Unavailable Loc Thorne Referring Unavailable Loc Thorne Attending Unavailable Baltes GARNETT FEEDER, Kenn Primary Care Unavailable JtNina Referring Unavailable Nina Waters Attending Unavailable Aida, Chalon Primary Care Unavailable Eleazar MCKEON, Dr. Mckoy Attending Provider [phone] Dr. Juan Banegas MD Attending Provider Dr. Loc Thorne MD Attending Provider Dr. Loc Thorne MD Referring Provider Mirza GARNETT FEEDER-C, Rola Attending Provider Jt GARNETT FEEDER-CNina Attending Provider Jt GARNETT FEEDER-C, Nina Referring Provider Allergies Allergy Classification Reported Allergen(s) Allergy Type Date of Onset Reaction(s) Facility (20 sources) lisinopril; Translations: [LISINOPRIL] Drug Allergy 7 Cough (finding), Cough [facility] Repository Comment on above: Adressed with patifrancy t and he does not remeber the reaction, it was so long ago" but he was told not to take Lisinopril (2 sources) Ciprofloxacin; Translations: [ciprofloxacin] Drug Allergy unsure-per [facility] [place] Medications Current Medications Medication Drug Class(es) Dates Sig (Normalized) Sig (Original) atorvastatin 10 mg oral tablet (20 sources) HMG-CoA Reductase Inhibitor Start: 08-01-2022 End: 10-11-2024 take 1 tablet by mouth once daily Atorvastatin 10 mg tablet Active 10 mg PO DAILY March 04, 2023 12:00am Start: 06-05-2022 take 1 tablet by fatoumata th once daily atorvastatin (LIPITOR) 20 mg tablet Take 1 tablet by mouth once daily. 90 tablet 3 06/05/2022 Active Start: 11-24-2021 End: 02-22-2022 atorvastatin 10 mg oral tabl et Dose : 10 mg = 1 tab(s), Oral, qDay, # 90 tab(s), 0 Refill(s), Pharmacy: [id number], Hyperlipidemia Type 2 diabetes mellitus, 171.45, cm, 11/22/21 11:46:00 EDT, Height Start Date: 11/24/21 Stop Date: 02/22/22 Status: Ordered Comment on above: Take 1 tablet by fatoumata th once daily. capsaicin 0.25 mg/ml topical cream (2 sources) Start: 11-28-2023 End: 03-27-2024 capsaicin 0.025% topical cream Apply 1 alex, Topical, QID, X 30 day(s), # 20 gram(s), 3 Refill(s), Pharmacy: [id number], Cream, 166, cm, 11/27/23 10:20:00 EDT, Height, 74.6, kg, 11/27/23 10:08:00 EDT, Dosing Weight Start Date: 11/28/23 Stop Date: 03/27/24 Status: Ordered carvedilol 12.5 mg oral tablet (20 sources) alpha-Adrenergic Domingo, beta-Adrenergic Domingo Start: 10-02-2024 take 2 tablets by mouth twice daily Carvedilol 12.5 mg tablet Active 25 mg PO TWICE A DAY October 02, 2024 11:27am Start: 09-04-2024 End: 10-02-2024 take 1 tablet by mouth twice daily Carvedilol 12.5 mg tablet Discontinued 12.5 mg PO TWICE A DAY September 04, 2024 11:52am October 02, 2024 11:28am Start: 09-26-2019 CARVEDILOL 25 MG TABS 1 tablet daily CARVEDILOL [id number] Missy Ojeda AT Start: 08-24-2016 End: 09-04-2024 take 1 tablet by mouth twice daily Carvedilol 25 mg tablet Discontinued 25 mg PO TWICE A DAY 180 August 13, 2024 2:50pm September 04, 2024 11:54am Comment on above: Take 1 tablet by fatoumata th twice daily. Take 1 tablet by fatoumata th twice daily with meals. Take 1 tablet by fatoumata th two times a day with meals. cephalexin 250 mg oral capsule (2 sources) Cephalosporin Antibacterial Start: 01-17-2024 End: 01-24-2024 cephalexin 250 mg oral capsule Dose : 250 mg = 1 cap(s), Oral, q12h, X 7 day(s), # 14 cap(s), 0 Refill(s), 01/24/24 11:14:00 AM EDT, Pharmacy: [id number], Urinary tract infection, 165.1, cm, 01/17/24 10:50:00 EDT, Height, 74, kg, 01/17/24 10:44:00 EDT, Dosing Weight Start Date: 01/17/24 Stop Date: 01/24/24 Status: Ordered Start: 11-27-2023 End: 12-04-2023 cephalexin 500 mg oral capsu le Dose : 500 mg = 1 cap(s), Oral, q12h, X 7 day(s), # 14 cap(s), 0 Refill(s), 12/04/23 10:45:00 AM EDT, Pharmacy: [id number], UTI (urinary tract infection), 166, cm, 11/27/23 10:20:00 EDT, Height, 74.6, kg, 11/27/23 10:08:00 EDT, Dosing Weight Start Date: 11/27/23 Stop Date: 12/04/23 Status: Ordered CHOLECALCIFEROL, VITAMIN D3, (VITAMIN D3 ORAL) (20 sources) take 1000 [IU] by mouth once daily CHOLECALCIFEROL, VITAMIN D3, (VITAMIN D3 ORAL) Take 1,000 Units by mouth once daily. Active take 1000 [IU] by mouth once alyson ly CHOLECALCIFEROL, VITAMIN D3, (VITAMIN D3 ORAL) Take 1,000 Units by mouth once daily. 0 Active Comment on above: Take 1,000 Units by mouth once daily. Co-Q10 (7 sources) Start: 021 take 1 dose by mouth once daily Co-Q10 Dose : 400 mg =, Oral, qDay, 0 Refill(s) Start Date: 02/15/21 Status: Ordered dextromethorphan hydrobromide 3 mg/ml oral solution (1 source) Uncompetitive E-pshwhi-S-aspartate Receptor Antagonist, Sigma-1 Agonist Start: 025 take 30 mg by mouth once as needed Dextromethorphan Hbr 15 mg/5 mL syrup Active 30 mg PO ONCE as needed October 20, 2024 12:00am ferrous sulfate 325 mg delayed release oral tablet (6 sources) Start: 023 ferrous sulfate 325 mg (65 mg elemental iron) oral delayed release tablet Dose : 325 mg = 1 tab(s), Oral, qDay, # 90 tab(s), 0 Refill(s), Pharmacy: [id number], Iron deficiency anemia, 171.45, cm, 05/24/22 11:38:00 EST, Height Start Date: 05/25/22 Status: Ordered furosemide 40 mg oral tablet (20 sources) Loop Diuretic Start: take 1 tablet by mouth once daily Furosemide 40 mg tablet Active 40 mg PO daily October 14, 2024 4:07pm Start: 10-02-2024 End: 10-02-2024 take 1 tablet by mouth once daily Furosemide 40 mg tablet Discontinued 40 mg PO daily October 02, 2024 11:27am October 02, 2024 12:00pm Start: 06-12-2024 End: 10-14-2024 Furosemide 40 mg tablet Disc ontinued 20 mg PO daily October 02, 2024 12:00pm October 14, 2024 4:07pm Start: 01-30-2024 End: 06-12-2024 take 1 tablet by mouth every other day Furosemide 40 mg tablet Discontinued 40 mg PO every other day January 30, 2024 3:30pm June 12, 2024 9:48am Start: 08-10-2023 End: 01-30-2024 take 1 tablet by mouth once daily Furosemide 40 mg tablet Discontinued 40 mg PO DAILY October 15, 2023 1:33pm January 30, 2024 3:31pm Start: 04-02-2023 End: 06-21-2023 take 1 tablet by mouth once daily Furosemide (Lasix) 40 mg tablet Discontinued 40 mg PO DAILY April 02, 2023 1:00am June 21, 2023 4:01pm gabapentin 300 mg oral capsule (20 sources) Anti-epileptic Agent Start: 10-02-2024 Gabapenti n 300 mg capsule Active 200 mg PO AT BEDTIME October 02, 2024 11:27am Start: 07-10-2024 take 2 capsules by m outh once daily in the morning Gabapentin 100 mg capsule Active 200 mg PO EVERY MORNING July 10, 2024 11:28am Start: 07-10-2024 End: 10-02-2024 take 1 capsule by mouth at bedtime Gabapentin 300 mg capsule Discontinued 300 mg PO AT BEDTIME July 10, 2024 1:00am October 02, 2024 11:28am Start: 08-15-2023 End: 07-10-2024 take 1 capsule by mouth at bedtime Gabapentin 100 mg Capsule Discontinued 100 mg PO AT BEDTIME August 20, 2023 12:00am July 10, 2024 11:30am Start: 08-10-2023 End: 08-20-2023 take 2 capsules by mouth at bedtime Gabapentin 100 mg Capsule Discontinued 200 mg PO AT BEDTIME 60 August 10, 2023 12:00am August 20, 2023 2:58pm Start: 08-10-2023 End: 08-20-2023 take 200 mg by mouth at bedtime Gabapentin Discontinue d 200 MG PO AT BEDTIME 60 August 10, 2023 12:00am August 20, 2023 2:58pm Nghhesph-Uftp-Imu1-C-Jesus-Aj sw (Osteo Bi-Flex Caplet) 1 EACH tablet (14 sources) Start: 08-24-2016 take 1 tablet by mouth once daily Mqsivmiy-Xqzk-Dum9-C-Jesus-Bosw (Osteo Bi-Flex Caplet) 1 EACH tablet Active 1 EACH PO DAILY August 24, 2016 12:00am Start: 03-15-2015 End: 08-24-2016 take 1 tablet by mouth once daily Tbxsyfvk-Shwt-Qpc5-C-Ejsus-Bosw (Osteo Bi -Flex Caplet) 1 EACH tablet Discontinued 1 NMA PO DAILY March 15, 2015 1:00am August 24, 2016 2:05pm Start: 03-15-2015 End: 08-24-2016 take 1 tablet by mouth once daily Fcpdjxos-Xglf-Ujx4-C-Jesus-Bosw (Osteo Bi -Flex Caplet) 1 EACH tablet Discontinued 1 EACH PO DAILY March 15, 2015 12:00am August 24, 2016 1:05pm Start: 03-15-2015 End: 08-24-2016 take 1 tablet by mouth once daily Xyywftwf-Pdqp-Pfu6-C-Jesus-Bosw (Osteo Bi -Flex Caplet) 1 EACH tablet Discontinued 1 EACH PO DAILY March 15, 2015 1:00am August 24, 2016 2:05pm idbwsaduitz-E4-Ivyjpcqub ser r 1,500-400-100 mg-unit-mg tab (20 sources) take 1 tablet by mouth once daily tmozluripzp-D1-Elolstpch serr 1,500-400-100 mg-unit-mg tab Take 1 tablet by mouth once daily. Active take 1 tablet by mouth once percy y owldwfvpphj-D5-Royuvulvm serr 1,500-400-100 mg-unit-mg tab Take 1 tablet by mouth once daily. 0 Active Comment on above: Take 1 tablet by fatoumata once daily. M.V.I. Adult (14 sources) Start: 09-09-2015 M.V.I. Adult S tart Date: 09/09/15 Status: Ordered MULTI-VITAMIN ORAL (20 sources) MULTI-VITAMIN OR AL Take by mouth. Active MULTI-VITAMIN OR AL Take by mouth. 0 Active Comment on above: Take by mouth. Multivitamin (Daily Multiple Vitamin) 1 EACH tablet (1 source) Start: 03-15-20 15 take 1 tablet by mouth once daily Multivitamin (Daily Multiple Vitamin) 1 EACH tablet Active 1 EACH PO DAILY March 15, 2015 1:00am naproxen sodium 220 mg oral tablet (8 sources) Nonsteroidal Anti-inflammatory Drug Start: 11-21-19 take 1 capsule by mouth once daily as needed for pain Aleve 220 mg oral tablet 1 cap(s), Oral, Daily, PRN as needed for pain, # 40 cap(s), 0 Refill(s) Start Date: 11/20/18 Status: Ordered Nerve renew (2 sources) Start: 11-27-19 Nerve renew Nerve renew, 0 Refill(s), 74.3 Start Date: 11/27/23 Status: Ordered ofloxacin 3 mg/ml otic solution (1 source) Quinolone Antimicrobial Start: 10-02-19 End: 10-09-19 ofloxacin 0.3% otic solution Dose = 5 drop(s), Ear, left, BID, Please d/c any existing drops ordered, X 7 day(s), # 5 mL, 0 Refill(s), Pharmacy: [id number], Left otitis externa, 166, cm, 09/28/23 13:23:00 EDT, Height, kg, 10/02/23 8:59:00 EDT, Dosing Weight Start Date: 10/02/23 Stop Date: 10/09/23 Status: Ordered omeprazole 20 mg delayed release oral tablet (5 sources) Proton Pump Inhibitor Start: 11-27-19 omeprazole 20 mg oral delayed release tablet Dose : 20 mg = 1 tab(s), Oral, qDay, 0 Refill(s) Start Date: 11/27/23 Status: Ordered Start: 11-23-2023 take 1 capsule by mo uth once daily Omeprazole 20 mg capsule,delayed release(DR/EC) Active 20 mg PO daily November 23, 2023 12:00am ondansetron 4 mg oral tablet (12 sources) Serotonin-3 Receptor Antagonist Start: 08-15-2023 End: 08-25-2023 Zofran 4 mg oral tablet Dose : 4 mg = 1 tab(s), Oral, BID, PRN Nausea, # 20 tab(s), 0 Refill(s), Pharmacy: [id number], Nausea, 167.6, cm, 08/15/23 13:08:00 EDT, Height, kg, 08/15/23 12:57:00 EDT, Dosing Weight Start Date: 08/15/23 Stop Date: 08/25/23 Status: Ordered Start: 03-15-2023 End: 08-16-2023 take 1 tablet by mouth every six hours as needed for nausea and vomiting Ondansetron 4 mg tablet,disintegrating Discontinued 4 mg PO EVERY 6 HOURS as needed for nausea and vomiting March 15, 2023 12:00am August 16, 2023 1:44pm OTC NUTRITIONAL SUPPLEMENT (20 sources) OTC NUTRITIONAL SUPPLEMENT 2 tablets once daily. Nerve Renew Active OTC NUTRITIONAL SUPPLEMENT 2 tablets once daily. Nerve Renew 0 Active Comment on above: 2 tablets once daily . Nerve Renew 24 hr oxybutynin chloride 10 mg extended release oral tablet (17 sources) Cholinergic Muscarinic Antagonist Start: 11-27-2023 take 1 tablet by mouth every hour, then take 1 tablet by mouth once daily oxybutynin 10 mg/24 hr oral tablet, extended release Dose : 10 mg = 1 tab(s), Oral, qDay, 0 Refill(s) Start Date: 11/27/23 Status: Ordered Start: 09-26-2019 OXYBUTYNIN CHL ORIDE ER 10 MG [id number] 1 tablet daily OXYBUTYNIN CHLORIDE [id number] Missy Ojeda AT Start: 08-24-2016 End: 08-24-2022 take 2 tablets by mouth once daily Oxybutynin Chloride 5 MG tablet Discontinued 10 mg PO DAILY August 24, 2016 12:00am August 24, 2022 3:50pm Start: 08-24-2016 End: 08-24-2022 take 10 mg by mouth once daily Oxybutynin Chloride Dis continued 10 MG PO DAILY August 24, 2016 12:00am August 24, 2022 3:50pm perflutren lipid microspheres 1.3 mL in NaCl (PF) 0.9% 10 mL injection (DEFINITY) (20 sources) Start: 02-20-2022 End: 05-22-2023 perflutren lipid microspheres 1.3 mL in NaCl (PF) 0.9% 10 mL injection (DEFINITY) polysaccharide iron complex 150 mg oral capsule (20 sources) Start: 03-06-2023 End: 03-20-2023 Polysaccharide Iron Complex (Ferrex 150) 150 mg iron capsule Active 150 mg PO DAILY March 20, 2023 3:55pm psyllium 3400 mg powder for oral suspension (2 sources) Start: 11-27-2023 take 1.7 doses by mouth once daily Metamucil 3.4 g/5.2 g oral powder for reconstitution Dose : 1.7 gram(s) =, Oral, qDay, 0 Refill(s) Start Date: 11/27/23 Status: Ordered sacubitril 49 mg / valsartan 51 mg oral tablet (20 sources) Angiotensin 2 Receptor Domingo Start: 10-20-2024 Sacubitril-Valsartan (Entresto) 49-51 mg tablet Active 1 {tbl} PO TWICE A DAY 180 October 20, 2024 2:38pm Start: 07-16-2024 End: 10-20-2024 Sacubitril-Valsartan (Entres to) 49-51 mg tablet Discontinued 0.5 {tbl} PO TWICE A DAY July 16, 2024 1:00am October 20, 2024 2:38pm Start: 07-16-2024 Sacubitril-Yulissa sartan (Entresto) 49-51 mg tablet Active 0.5 {tbl} PO TWICE A DAY July 16, 2024 1:00am Start: 07-10-2024 End: 07-16-2024 Sacubitril-Valsartan (Entres to) 24-26 mg tablet Discontinued 1 {tbl} PO TWICE A DAY 60 July 10, 2024 1:00am July 16, 2024 12:52pm Start: 02-20-2022 End: 07-10-2024 Sacubitril-Valsartan (Entres to) 49-51 mg tablet Discontinued 1 {tbl} PO TWICE A DAY August 24, 2022 12:00am July 10, 2024 11:50am Start: 02-18-2020 End: 02-20-2022 take 1 tablet by mouth twice daily Entresto 24 mg-26 mg oral tablet Dose = 1 tab(s), Oral, BID, # 60 tab(s), 0 Refill(s) Start Date: 02/18/20 Status: Ordered Start: 09-26-2019 ENTRESTO 49-51 MG TABS 1 tablet twice a day SACUBITRIL-VALSARTAN [id number] Emma Ramos PA-C Start: 08-26-2018 End: 08-24-2022 take 49-51 mg by mouth twice daily Entresto 49 mg-51 mg Tablet Discontinued 49 - 51 mg PO TWICE A DAY August 26, 2018 12:00am August 24, 2022 3:49pm Start: 08-26-2018 End: 08-24-2022 take 49-51 mg by mouth twice daily Entresto 49 mg-51 mg Tablet Discontinued 49 - 51 MG PO TWICE A DAY August 25, 2018 11:00pm August 24, 2022 2:49pm Start: 08-26-2018 End: 08-24-2022 take 49-51 mg by mouth twice daily Entresto 49 mg-51 mg Tablet Discontinued 49 - 51 MG PO TWICE A DAY August 26, 2018 12:00am August 24, 2022 3:49pm Comment on above: Take 1 tablet by fatoumata twice daily. 125 ml sodium chloride 9 mg/ml prefilled syringe (20 sources) Start: 02-20-2022 End: 05-22-2023 sodium chloride 0.9 % (flush) 10 mL (BD POSIFLUSH) tamsulosin hydrochloride 0.4 mg oral capsule (20 sources) alpha-Adrenergic Domingo Start: 07-10-2024 take 1 mg by mouth once daily Tamsulosin 0.4 mg capsule Active mg PO DAILY July 10, 2024 1:00am Start: 08-20-2023 End: 09-04-2023 take 1 capsule by mouth once daily Tamsulosin 0.4 mg Capsule Discontinued 0.4 mg PO DAILY@1730 0 August 20, 2023 12:00am September 04, 2023 1:40pm Start: 03-06-2023 End: 08-16-2023 take 1 capsule by mouth once daily Tamsulosin 0.4 mg Capsule Discontinued 0.4 mg PO DAILY March 06, 2023 12:00am August 16, 2023 1:42pm Start: 11-17-2015 End: 08-24-2016 take 1 capsule by mouth once daily Tamsulosin 0.4 MG capsule Discontinued 0.4 mg PO DAILY November 17, 2015 12:00am August 24, 2016 2:04pm Comment on above: Take 0.4 mg by mouth once daily. traZODone hydrochloride 50 mg oral tablet (3 sources) Serotonin Reuptake Inhibitor Start: 3 traZODone 50 mg oral tablet Dose : 25 mg = 0.5 tab(s), Oral, qHS, # 15 tab(s), 0 Refill(s), Pharmacy: [id number], Insomnia, 170.2, cm, 03/22/23 13:00:00 EST, Height, kg, 03/22/23 13:00:00 EST, Dosing Weight Start Date: 03/23/23 Status: Ordered Vitamin D3 50 mcg (2000 intl units) oral capsule (11 sources) Start: 1 Vitamin D3 50 mcg (2000 intl units) oral capsule Dose : 50 mcg = 1 cap(s), Oral, qDay, 0 Refill(s) Start Date: 02/15/21 Status: Ordered Zinc (3 sources) Start: 4 take 1 tablet by mouth once daily zinc zinc, 1 tab(s), Oral, Daily, 50 mg, 0 Refill(s), 72.2 Start Date: 09/11/23 Status: Ordered zinc acetate 50 mg oral capsule (20 sources) Start: 3 take 1 capsule by mouth once daily Zinc Acetate 50 mg (zinc) capsule Active 50 mg PO DAILY August 24, 2022 12:00am ZINC ACETATE ORA L Take by mouth once daily. Active ZINC ACETATE ORA L Take by mouth once daily. 0 Active Comment on above: Take by mouth once d aily. zinc gluconate 50 mg oral tablet (10 sources) Start: 08-12-2020 zinc (as gluconate) 50 mg oral tablet Dose : 50 mg = 1 tab(s), Oral, Daily, 0 Refill(s) Start Date: 02/21/22 Status: Ordered Completed/Discontinued Medications Medication Drug Class(es) Dates Sig (Normalized) Sig (Original) amLODIPine 10 mg oral tablet (13 sources) Dihydropyridine Calcium Channel Domingo Start: 03-12-2015 End: 08-24-2016 take 1 tablet by mouth once daily Amlodipine 10 MG tablet Discontinued 10 mg PO DAILY March 12, 2015 12:00am August 24, 2016 2:08pm bisacodyl 10 mg rectal suppository (5 sources) Stimulant Laxative Start: 08-20-2023 End: 07-10-2024 Bisacodyl 10 mg Suppository Discontinued 10 mg RC DAILY 0 August 20, 2023 12:00am July 10, 2024 11:29am Cholecalciferol (15 sources) Vitamin D Start: 09-26-2019 VITAMIN D3 GUMMIES CHEW 1 tablet daily CHOLECALCIFEROL CHEW [id number] Missy Ojeda AT Start: 08-09-2016 Cholecalcifero l (Vitamin D3) (Vitamin D3) 1,000 UNIT capsule Active 50 ug PO DAILY August 09, 2016 12:00am Start: 08-09-2016 take [address] [facility] once daily Cholecalciferol (Vitamin D3) (Vitamin D3) 1,000 UNIT capsule Active 1000 UNIT PO DAILY August 08, 2016 11:00pm chondroitin sulfates 200 mg / glucosamine hydrochloride 250 mg oral tablet (13 sources) Start: 09-26-2019 OSTEO BI-FLEX REGULAR STRENGTH 250-200 MG TABS 1 tablet daily GLUCOSAMINE-CHONDROITIN [id number] Missy Ojeda AT Start: 09-09-2015 Osteo Bi-Flex Start Date: 09/09/15 Status: Ordered ciprofloxacin 500 mg oral tablet (20 sources) Quinolone Antimicrobial Start: 03-15-2023 End: 03-31-2023 take 1 tablet by mouth twice daily Ciprofloxacin Hcl (Cipro) 500 mg tablet Discontinued 500 mg PO TWICE A DAY March 15, 2023 12:00am March 31, 2023 3:50pm Start: 03-06-2023 End: 03-15-2023 take 1 tablet by mouth every twelve hours Ciprofloxacin Hcl (Cipro) 250 mg tablet Discontinued 250 mg PO Q12H 14 7 March 06, 2023 12:00am March 15, 2023 7:13am Starting 03/07 COENZYME Q10 CAPS (2 sources) Start: 04-10-2012 CO Q 10 CAPS 1 tab every day COENZYME Q10 CAPS [id number] Nina Katarina Kbfixcdx-Jwoj-Plp2-C- Jesus-Bosw (Osteo Bi-Flex Triple Strength) 1 EACH tablet (12 sources) Start: 08-24-2016 End: 08-16-2023 take 1 tablet by mouth once daily Rzouxzgx-Cqev-Naf1-C-Jesus -Bosw (Osteo Bi-Flex Triple Strength) 1 EACH tablet Discontinued 1 NMA PO DAILY August 24, 2016 12:00am August 16, 2023 1:43pm Start: 08-24-2016 End: 08-16-2023 take 1 tablet by mouth once daily Fbazubzk-Uurh-Ysa4-C-Jesus-Bosw (Osteo Bi -Flex Triple Strength) 1 EACH tablet Discontinued 1 EACH PO DAILY August 24, 2016 12:00am August 16, 2023 1:43pm Start: 08-24-2016 take 1 tablet by fatoumata th once daily Ulpkusic-Mikj-Imx1-C-Jesus-Bosw (Osteo Bi -Flex Triple Strength) 1 EACH tablet Active 1 EACH PO DAILY August 23, 2016 11:00pm Start: 08-24-2016 take 1 tablet by fatoumata th once daily Shbeebzt-Tmep-Wnh5-C-Jesus-Bosw (Osteo Bi -Flex Triple Strength) 1 EACH tablet Active 1 EACH PO DAILY August 24, 2016 12:00am digduykhfma-I7-awrvrhfpa serr (OSTEO BI-FLEX, 5-LOXIN,) 1,500-400-100 mg-unit-mg tab (3 sources) take 1 tablet by mouth once daily pttxzgviyba-E0-uwztypvnw serr (OSTEO BI-FLEX, 5-LOXIN,) 1,500-400-100 mg-unit-mg tab Take 1 tablet by mouth once daily. 0 Active Comment on above: Take 1 tablet by fatoumata th once daily. levETIRAcetam 500 mg oral tablet (13 sources) Star t: 03-2 9-20 17 End: 08-12 17 take 1 tablet by mouth twice daily Levetiracetam 500 MG tablet Discontinued 500 mg PO TWICE A DAY August 09, 2016 12:00am August 24, 2016 2:03pm lisinopril 20 mg oral tablet (13 sources) Angiotensin Converting Enzyme Inhibitor Star t: 10-31 16 End: 08-12 17 take 1 tablet by mouth once daily Lisinopril 20 MG tablet Discontinued 20 mg PO DAILY November 17, 2015 12:00am August 24, 2016 2:05pm 24 hr metoprolol succinate 25 mg extended release oral tablet (13 sources) beta-Adrenergic Domingo Star t: 07-03 15 End: 08-12 17 take 1 tablet by mouth once daily Metoprolol Succinate 25 MG tablet Discontinued 25 mg PO DAILY March 15, 2015 1:00am August 24, 2016 2:04pm Misc Medication (14 sources) Star t: 09-30 Misc Medication Something for his feet, OTC. And a cream also for his feet., 0 Refill(s), 88.5 Start Date: 08/16/21 Status: Ordered MULTIPLE VITAMIN (2 sources) Star t: 03-15 12 MULTIVITAMINS TABS 1 tab every day MULTIPLE VITAMIN [id number] Nina Katarina Multivitamin (Daily Multi-Vitamin) tablet (7 sources) Star t: 07-13 24 End: 08-31 24 Multivitamin (Daily Multi-Vitamin) tablet Discontinued 1 {tbl} PO DAILY August 07, 2023 12:00am August 16, 2023 1:42pm Start: 08-07-2023 End: 08-16-2023 take 1 tablet by mouth once daily Multivitamin (Daily Multi-Vitamin) tablet Discontinued 1 TABLET PO DAILY August 07, 2023 12:00am August 16, 2023 1:42pm Start: 08-07-2023 take 1 tablet by fatoumata th once daily Multivitamin (Daily Multi-Vitamin) tablet Active 1 TABLET PO DAILY August 07, 2023 12:00am Multivitamin (Daily Multiple) 1 EACH tablet (12 sources) Start: 03-15-2015 End: 08-07-2023 take 1 tablet by mouth once daily Multivitamin (Daily Multiple) 1 EACH tablet Discontinued 1 NMA PO DAILY March 15, 2015 1:00am August 07, 2023 2:14pm Start: 03-15-2015 End: 08-07-2023 take 1 tablet by mouth once daily Multivitamin (Daily Multiple) 1 EACH tablet Discontinued 1 EACH PO DAILY March 15, 2015 1:00am August 07, 2023 2:14pm Start: 03-15-2015 take 1 tablet by fatoumata th once daily Multivitamin (Daily Multiple) 1 EACH tablet Active 1 EACH PO DAILY March 15, 2015 12:00am Start: 03-15-2015 take 1 tablet by fatoumata th once daily Multivitamin (Daily Multiple) 1 EACH tablet Active 1 EACH PO DAILY March 15, 2015 1:00am Nerve Renew (9 sources) Start: 05-24-2022 Nerve Renew Nerve Renew, 1 tab(s), Oral, BID, 0 Refill(s), 83.6 Start Date: 05/24/22 Status: Ordered nortriptyline 50 mg oral capsule (20 sources) Tricyclic Antidepressant Start: 10-03-2022 End: 10-15-2023 take 1 capsule by mouth twice daily Nortriptyline 50 mg capsule Discontinued 50 mg PO TWICE A DAY March 31, 2023 1:00am August 10, 2023 11:24am Start: 03-28-2022 End: 09-24-2022 nortriptyline 50 mg oral cap josefa Dose : 50 mg = 1 cap(s), Oral, BID, # 180 cap(s), 1 Refill(s), Pharmacy: [id number], Neuropathy, 171.45, cm, 02/21/22 11:43:00 EDT, Height, kg, 02/21/22 11:43:00 EDT, Dosing Weight Start Date: 03/28/22 Stop Date: 09/24/22 Status: Ordered Start: 09-21-2021 End: 03-20-2022 nortriptyline 50 mg oral cap josefa Dose : 50 mg = 1 cap(s), Oral, BID, # 180 cap(s), 1 Refill(s), Pharmacy: [id number], Neuropathy, 172.7, cm, 08/16/21 9:34:00 EDT, Height, kg, 08/16/21 9:34:00 EDT, Dosing Weight Start Date: 09/21/21 Stop Date: 03/20/22 Status: Ordered Start: 02-15-2021 End: 08-14-2021 nortriptyline 50 mg oral cap josefa Dose : 50 mg = 1 cap(s), Oral, BID, # 180 cap(s), 1 Refill(s), Pharmacy: [id number], Neuropathy, 172.7, cm, 02/15/21 9:04:00 EDT, Height, kg, 02/15/21 9:04:00 EDT, Dosing Weight Start Date: 02/15/21 Stop Date: 08/14/21 Status: Ordered Start: 03-12-2015 End: 03-04-2023 take 1 capsule by mouth twice daily Nortriptyline (Pamelor) 75 MG capsule Discontinued 75 mg PO TWICE A DAY March 12, 2015 12:00am March 04, 2023 2:36pm Start: 04-10-2012 NORTRIPTYLINE HCL 50 MG ORAL CAPSULE (NORTRIPTYLINE HCL) 75 mg in the AM 50mg in the PM NORTRIPTYLINE HCL 50 MG ORAL CAPSULE (NORTRIPTYLINE HCL) Emma Ramos PA-C Comment on above: Take [address] [facility] twice daily. Take 50 mg by mouth twice daily. potassium chloride 10 meq extended release oral capsule (20 sources) Start: 07-19-2023 End: 09-09-2024 take 1 capsule by mouth once daily Potassium Chloride 10 mEq capsule, extended release Discontinued 10 meq PO DAILY August 07, 2023 12:00am September 09, 2024 2:32pm Start: 04-18-2023 Potassium Chlo ride (Nbv-Bvyb-Gmc M20) 20 mEq oral tablet, extended release Dose : 20 mEq = 1 tab(s), Oral, qDay, # 90 tab(s), 0 Refill(s), Pharmacy: [id number], Hypokalemia Heart failure with reduced ejection fraction, 170.4, cm, 04/18/23 9:11:00 EST, Height, kg, 04/18/23 9:04:00 EST, Dosing Weight Start Date: 04/18/23 Status: Ordered Start: 04-02-2023 End: 08-07-2023 take 1 tablet by mouth once daily Potassium Chloride 20 mEq tablet extended release Discontinued 20 meq PO DAILY April 02, 2023 1:00am August 07, 2023 2:15pm ubidecarenone 100 mg oral capsule (20 sources) Start: 03-15-2015 End: 03-04-2023 take 10 capsules by mouth once daily Coenzyme Q10 100 MG capsule Discontinued 400 mg PO DAILY March 15, 2015 1:00am March 04, 2023 2:36pm End: 04-12-2023 take 1 capsule by mouth once daily Coenzyme Q10 (CO Q-10) 400 mg cap Take 1 capsule by mouth once daily. 0 04/12/2023 Discontinued (Course of therapy completed) Comment on above: Take 1 capsule by [facility] once daily. vitamin e 100 unt oral capsule (13 sources) Start: 08-09-2016 End: 08-24-2016 take 1 capsule by mouth once daily Vitamin E 100 UNIT capsule Discontinued 100 U PO DAILY August 09, 2016 12:00am August 24, 2016 2:03pm Problems Active Problems Problem Classification Problem Date Documented Da te Episodic/Chronic Acute and unspecified renal failure (20 sources) Acute renal failure syndrome; Translations: [Acute kidney failure, unspecified] 03-04-2023 Episodic Acute cerebrovascular disease (11 sources) Hematoma of subdural space of neuraxis; Translations: [Subdural hematoma] Onset: 3 Chronic Aortic; peripheral; and visceral artery aneurysms (20 sources) Aneurysm of splenic artery; Translations: [Aneurysm of other specified arteries] Onset: 5 08-10-2016 Chronic Cancer of kidney and renal pelvis (20 sources) Malignant tumor of kidney; Translations: [Malignant neoplasm of left kidney, except renal pelvis] Onset: 7 10-06-2016 Chronic Cancer of other GI organs; peritoneum (20 sources) Carcinoma of ampulla of Vater; Translations: [Malignant neoplasm of ampulla of Vater] Onset: 4 04-24-2023 Chronic Comment on above: Biopsy of Duodenal A mpullary mass done in the hospital 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 Cancer of prostate (19 sources) Malignant tumor of prostate; Translations: [Malignant neoplasm of prostate] Onset: 4 03-02-2021 Chronic Comment on above: Clinically stable. P SA is normal. Cardiac dysrhythmias (20 sources) Ventricular tachycardia; Translations: [Ventricular tachycardia] Onset: 3 Chronic Chronic kidney disease (20 sources) Chronic kidney disease stage 3; Translations: [Chronic kidney disease] Onset: 3 11-24-2021 Chronic Chronic kidney disease (2 sources) Chronic kidney disease; Translations: [Stage 3 chronic kidney disease, unspecified whether stage 3a or 3b CKD (HCC)] Onset: 4 Chronic obstructive pulmonary disease and bronchiectasis (6 sources) Bronchitis 05-17-2023 Episodic Conditions associated with dizziness or vertigo (20 sources) Postural dizziness; Translations: [Dizziness and giddiness] Episodic Conduction disorders (20 sources) Cardiac pacemaker in situ; Translations: [Left bundle branch block] Onset: 5 06-15-2017 Chronic Congestive heart failure; nonhypertensive (20 sources) Chronic systolic heart failure; Translations: [Chronic systolic (congestive) heart failure] Onset: 6 Chronic Deficiency and other anemia (1 source) Anemia of chronic renal failure; Translations: [Anemia in chronic kidney disease] Chronic Deficiency and other anemia (20 sources) Iron deficiency anemia; Translations: [Iron deficiency anemia, unspecified] 08-17-2021 Episodic Comment on above: He wants to try Oral iron again before considering IV. Most recently in Jun 2024, his hemoglobin was 9.8Patient has a CLL. Deficiency and other anemia (18 sources) Anemia; Translations: [Anemia, unspecified] 03-04-2023 Episodic Deficiency and other anemia (10 sources) Anemia, unspecified; Translations: [Anemia, unspecified] 03-04-2023 Episodic Diabetes mellitus with complications (2 sources) Type 2 diabetes mellitus with hyperosmolarity without nonketotic hyperglycemic-hyperosm olar coma ([facility]); Translations: [Type 2 diabetes mellitus with hyperosmolarity without coma, unspecified whether mcc insulin use (HCC)] Onset: 3 Chronic Diabetes mellitus without complication (20 sources) Type 2 diabetes mellitus; Translations: [Type 2 diabetes mellitus with hyperosmolarity without nonketotic hyperglycemic-hyperosm olar coma ([facility])] Onset: 3 11-23-2021 Chronic Diseases of white blood cells (11 sources) Leukocytosis; Translations: [Elevated white blood cell count, unspecified] 08-07-2023 Chronic Disorders of lipid metabolism (19 sources) Hyperlipidemia; Translations: [Hyperlipidemia, unspecified] Onset: 4 11-24-2021 Chronic E Codes: Fall (17 sources) Fall; Translations: [Unspecified fall, initial encounter] 03-04-2023 Episodic E Codes: Fall (14 sources) Fall 06-15-2017 Essential hypertension (20 sources) Hypertensive disorder; Translations: [Essential hypertension] Onset: 5 Resolved: 7 04-29-2019 Chronic Genitourinary symptoms and ill-defined conditions (20 sources) Retention of urine; Translations: [Retention of urine, unspecified] Onset: 4 03-06-2023 Episodic Hypertension with complications and secondary hypertension (1 source) Hypertensive chronic kidney disease with stage 1 through stage 4 chronic kidney disease, or unspecified chronic kidney disease; Translations: [Hypertensive chronic kidney disease with stage 1 through stage 4 chronic kidney disease, or unspecified chronic kidney disease] Onset: 4 Chronic Intracranial injury (13 sources) Concussion injury of body structure; Translations: [Concussion] 08-24-2022 Episodic Leukemias (20 sources) Chronic lymphoid leukemia, disease; Translations: [Chronic lymphocytic leukemia of B-cell type not having achieved remission] Onset: 9 Chronic Comment on above: Lymphocytes are risi ng.No indication for therapy. Leukemias (20 sources) History of chronic lymphocytic leukemia; Translations: [Personal history of leukemia] Onset: 5 03-04-2023 Episodic Malaise and fatigue (7 sources) Asthenia; Translations: [Weakness] 08-16-2023 Episodic Nausea and vomiting (10 sources) Nausea and vomiting; Translations: [Nausea with vomiting, unspecified] 08-16-2023 Episodic Occlusion or stenosis of precerebral arteries (20 sources) Carotid artery stenosis; Translations: [Occlusion and stenosis of unspecified carotid artery] 08-07-2016 Chronic Open wounds of extremities (1 source) Laceration of thumb; Translations: [Laceration without foreign body of unspecified thumb without damage to nail, initial encounter] Onset: Episodic Osteoarthritis (2 sources) Osteoarthrosis of the carpometacarpal joint of the thumb; Translations: [Unilateral primary osteoarthritis of first carpometacarpal joint, right hand] Onset: 5 02-23-2015 Chronic Other aftercare (3 sources) Post-discharge follow-up 09-12-2023 Episodic Other aftercare (2 sources) Long-term current use of diuretic; Translations: [Encounter for therapeutic drug level monitoring] 10-14-2024 Episodic Other and unspecified benign neoplasm (1 source) Adenoma of ampulla of Vater; Translations: [Benign neoplasm of extrahepatic bile ducts] 06-22-2023 Episodic Other circulatory disease (13 sources) Orthostatic hypotension; Translations: [Orthostatic hypotension] 03-04-2023 Episodic Other circulatory disease (4 sources) Orthostatic hypotension; Translations: [Orthostatic hypotension] 03-04-2023 Episodic Other connective tissue disease (14 sources) Contracture of palmar fascia 06-16-2020 Episodic Other diseases of kidney and ureters (4 sources) Hydronephrosis; Translations: [Unspecified hydronephrosis] 08-18-2023 Episodic Other diseases of kidney and ureters (1 source) Unspecified hydronephrosis; Translations: [Hydronephrosis] 08-20-2023 Episodic Other diseases of kidney and ureters (3 sources) Bilateral hydronephrosis 09-12-2023 Episodic Other endocrine disorders (1 source) Secondary hyperparathyroidism; Translations: [Secondary hyperparathyroidism, not elsewhere classified] Chronic Other gastrointestinal disorders (4 sources) Constipation; Translations: [Constipation, unspecified] 08-18-2023 Episodic Other gastrointestinal disorders (1 source) Constipation, unspecified; Translations: [Constipation, unspecified] 08-20-2023 Episodic Other hereditary and degenerative nervous system conditions (2 sources) Restless legs 11-30-2023 Chronic Other lower respiratory disease (7 sources) Hypoxemia; Translations: [Hypoxemia] 08-07-2023 Episodic Other lower respiratory disease (4 sources) Hypoxemia; Translations: [Hypoxemia] 08-07-2023 Episodic Other nervous system disorders (14 sources) Neuropathy 11-19-2018 Chronic Other nervous system disorders (20 sources) Small fiber neuropathy; Translations: [Polyneuropathy, unspecified] Onset: 8 07-10-2017 Chronic Other nervous system disorders (20 sources) Polyneuropathy; Translations: [Polyneuropathy, unspecified] Onset: 8 07-10-2017 Chronic Other nervous system disorders (2 sources) Peripheral nerve disease 11-30-2023 Chronic Other non-traumatic joint disorders (1 source) Arthritis of first carpometacarpal joint of left hand; Translations: [Unilateral primary osteoarthritis of first carpometacarpal joint, left hand] Onset: 0 09-30-2019 Marci-; endo-; and myocarditis; cardiomyopathy (20 sources) Other cardiomyopathies; Translations: [Cardiomyopathy] Onset: 6 11-19-2018 Chronic Residual codes; unclassified (10 sources) Bilateral lower limb edema; Translations: [Localized edema] 03-31-2023 Episodic Residual codes; unclassified (10 sources) Edema of left upper limb; Translations: [Localized edema] 03-31-2023 Episodic Residual codes; unclassified (9 sources) Localized edema; Translations: [Edema] 03-31-2023 Episodic Syncope (20 sources) Near syncope; Translations: [Syncope and collapse] Onset: 5 10-16-2014 Episodic Unclassified (1 source) Unknown / UNK(Unknown) Onset: 8 Unclassified (14 sources) Patient encounter status 08-17-2021 Unclassified (20 sources) SUMMARY Onset: 6 05-09-2021 Unclassified (1 source) VT (ventricular tachycardia) (HCC); Translations: [VT (ventricular tachycardia) (HCC)] Onset: 3 Unclassified (1 source) VT (ventricular tachycardia); Translations: [VT (ventricular tachycardia)] Onset: 3 Unclassified (1 source) Established Patient Onset: 4 Unclassified (1 source) Cough, unspecified; Translations: [Cough, unspecified] Onset: 5 Unclassified (1 source) Other specified cough; Translations: [Other specified cough] Onset: 5 Urinary tract infections (20 sources) Urinary tract infectious disease; Translations: [Urinary tract infection, site not specified] Onset: 4 03-04-2023 Episodic Past or Other Problems Problem Classification Problem Date Documented Date Episodic/Chronic Cancer of prostate (20 sources) History of malignant neoplasm of prostate; Translations: [Personal history of malignant neoplasm of prostate] Onset: 04-02-2019 02-15-2021 Episodic Deficiency and other anemia (20 sources) Iron deficiency anemia, unspecified; Translations: [Iron deficiency anemia, unspecified] Onset: 07-16-2024 03-20-2023 Episodic Diabetes mellitus without complication (20 sources) Abnormal glucose level; Translations: [Other abnormal glucose] Onset: 07-10-2017 07-10-2017 Episodic Fracture of upper limb (2 sources) Fracture of unspecified phalanx of right little finger, initial encounter for closed fracture; Translations: [Fracture of unspecified phalanx of right little finger, initial encounter for closed fracture] Onset: 09-26-2019 09-26-2019 Episodic Other circulatory disease (20 sources) History of cardiac arrhythmia; Translations: [Personal history of other diseases of the circulatory system] Onset: 10-16-2014 09-21-2015 Episodic Other connective tissue disease (2 sources) Dupuytren's contracture ; Translations: [Palmar fascial fibromatosis [Dupuytren]] Onset: 02-23-2015 02-23-2015 Episodic Other connective tissue disease (1 source) Hand pain; Translations: [Pain in left hand] Onset: 09-30-2019 09-30-2019 Episodic Other connective tissue disease (20 sources) Pain in bilateral legs; Translations: [Pain in right leg] Onset: 07-10-2017 07-10-2017 Episodic Other diseases of kidney and ureters (20 sources) Renal impairment; Translations: [Disorder of kidney and ureter, unspecified] Onset: 07-19-2016 07-19-2016 Episodic Other nervous system disorders (20 sources) Abnormal gait; Translations: [Unspecified abnormalities of gait and mobility] Onset: 07-10-2017 07-10-2017 Episodic Other nervous system disorders (20 sources) Skin sensation disturbance; Translations: [Unspecified disturbances of skin sensation] Onset: 07-10-2017 07-10-2017 Episodic Other screening for suspected conditions (not mental disorders or infectious disease) (20 sources) Blood chemistry abnormal; Translations: [Abnormal finding of blood chemistry, unspecified] Onset: 07-10-2017 07-10-2017 Episodic Skin and subcutaneous tissue infections (20 sources) Cellulitis caused by Staphylococcus aureus; Translations: [Cellulitis, unspecified] Onset: 08-05-2015 08-05-2015 Episodic Unclassified (2 sources) Problem Results Test Name Value Interpretation Reference Range Facility CBC W/Diff, Automatedon PATH REV May foll Normal [facility] Comment on above: Order Comment: Order Date: 10/13/24Order Info: [id number] - CBCD Performed By: #### L 500.2500, L100.0100 ####[facility] [address] [place], [address] Absolute lymphocyte countOrd ered By: Nina Waters on 10-13-2024 Lymphocytes Auto (Unsp spec) [#/Vol] 27.67 10*3/uL High 0.83-4.51 [facility] Absolute neutrophil countOrd ered By: Ninameredith Waters on 10-13-2024 Neutrophils (Bld) [#/Vol] 3.8 10*3/uL 2.0-7.7 [facility] Anion gap in Serum or Plasma Ordered By: Nina Waters on 10-13-2024 Anion gap [Moles/Vol] 11 mmol/L 5-15 [facility] Automated lymphocyte count a s percentage of total leukocytesOrdered By: Nina Waters on 10-13-2024 Lymphocytes/100 WBC Auto (Unsp spec) 80.6 % High 19-41 [facility] BUN/creatinine ratioOrdered By: Nina Waters on 10-13-2024 Urea nitrogen/Creatinine [Mass ratio] 23.1 mg/mg High 10-20 [facility] Basic Metabolic Profile (BMP )on 10-13-2024 BUN/CRE 23.1 RATIO High 10-20 [facility] Comment on above: Order Comment: Order Date: 10/13/24 Order Info: 0667-1 - BMP Performed By: #### L 500.2500, L100.0100 #### [facility] [address] [place], [address] Calcium [Mass/Vol] 9.3 mg/dL Normal 7.6-11.0 [facility] Comment on above: Order Comment: Order Date: 10/13/24 Order Info: 0667-1 - BMP Performed By: #### L 500.2500, L100.0100 #### [facility] [address] [place], [address] Chloride [Moles/Vol] 104 mmol/L Normal 98-108 [facility] Comment on above: Order Comment: Order Date: 10/13/24 Order Info: 0667-1 - BMP Performed By: #### L 500.2500, L100.0100 #### [facility] [address] [place], [address] CO2 [Moles/Vol] 25.6 mmol/L Normal 21.0-32.0 [facility] Comment on above: Order Comment: Order Date: 10/13/24 Order Info: 0667-1 - BMP Performed By: #### L 500.2500, L100.0100 #### [facility] [address] [place], [address] Creatinine [Mass/Vol] 1.99 mg/dL High 0.70-1.20 [facility] Comment on above: Order Comment: Order Date: 10/13/24 Order Info: 0667-1 - BMP Performed By: #### L 500.2500, L100.0100 #### [facility] [address] [place], [address] GAP 11 Normal 5-15 [facility] Comment on above: Order Comment: Order Date: 10/13/24 Order Info: 0667-1 - BMP Performed By: #### L 500.2500, L100.0100 #### [facility] [address] [place], [address] GFR/1.73 sq M.predicted among non-blacks MDRD (S/P/Bld) [Vol rate/Area] 32 mL/min/{1.73_m2} Low >60 [facility] Comment on above: Order Comment: Order Date: 10/13/24 Order Info: 0667- - BMP Result Comment: mL/m in/1.73m2 CKD-EPI Creatinine Equation (2020) Performed By: #### L 500.2500, L100.0100 #### [facility] [address] [place], [address] Glucose [Mass/Vol] 176 mg/dL High 70-99 [facility] Comment on above: Order Comment: Order Date: 10/13/24 Order Info: 0667- - BMP Performed By: #### L 500.2500, L100.0100 #### [facility] [address] [place], [address] Potassium [Moles/Vol] 4.6 mmol/L Normal 3.3-5.1 [facility] Comment on above: Order Comment: Order Date: 10/13/24 Order Info: 0667- - BMP Performed By: #### L 500.2500, L100.0100 #### [facility] [address] [place], [address] Sodium [Moles/Vol] 141 mmol/L Normal 133-145 [facility] Comment on above: Order Comment: Order Date: 10/13/24 Order Info: 0667- - BMP Performed By: #### L 500.2500, L100.0100 #### [facility] [address] [place], [address] Urea nitrogen [Mass/Vol] 46 mg/dL High 4-19 [facility] Comment on above: Order Comment: Order Date: 10/13/24 Order Info: 0667- - BMP Performed By: #### L 500.2500, L100.0100 #### [facility] [address] [place], [place], [address] Basophil percentageOrdered B y: Nina Waters on 10-13-2024 Basophils/100 WBC (Bld) 0.6 % 0-1 [facility] Carbon dioxide, total [Moles /volume] in Central venous bloodOrdered By: Nina Waters on 10-13-2024 CO2 [Moles/Vol] 25.6 mmol/L 21.0-32.0 [facility] Chest PA and Lateralon 10-13 Chest PA and Lateral [facility] Imaging Services [address] [place], [place] [address] Chest PA and Lateral MR#: [id number] Acct: [id number] Name: JAIME ANN Rep #: [id number] : 1940 M 84 From: [place] De Guzman PCP: Dr. Leona Parra MD Status: REG CLI Study: Chest PA and Lateral Date of Exam: 10/13/24 Exam# [id number] Ordering Dr: Nina Waters NP [facility] [employer]-C PROCEDURE: CHEST PA AND LATERAL 10/13/2024 REASON FOR EXAM: COUGH, RECENT BRONCHITIS TECHNIQUE: Frontal and lateral views of the chest. COMPARISON: 06/23/2024 FINDINGS: Bibasilar subsegmental atelectasis. No definite focal consolidations. Mild pulmonary vascular congestion. Stable tdwv-wd-tiojgwnm cardiomegaly. Atherosclerotic aortic arch. Left chest pacer. No pleural effusion or pneumothorax. Extensive degenerative changes of the thoracic spine with stable multilevel compression deformities. RAD/Chest PA and Lateral IMPRESSION: Bibasilar subsegmental atelectasis. No definite focal consolidations. Mild pulmonary vascular congestion. Stable uqby-dy-taoehuzm cardiomegaly. Atherosclerotic Reading Location: [facility] CC: [facility]ER-C Nina Waters; Dr. Leona Parra MD Manuscripts Curator: Signed Normal [place] [facility] Chloride assayOrdered By: Pj Waters on 10-13-2024 Chloride [Moles/Vol] 104 mmol/L 98-108 [facility] Eosinophil percentageOrdered By: Nina Waters on 10-13-2024 Eosinophils/100 WBC (Bld) 1.5 % 0-5 [facility] Erythrocyte distribution wid th ratioOrdered By: Nina Waters on 10-13-2024 Erythrocyte distribution width (RBC) [Ratio] 17.3 % High 11.6-14.6 [facility] Erythrocyte distribution wid th standard deviationOrdered By: Nina Waters on 10-13-2024 Erythrocyte distribution width (RBC) [Ratio] 56.5 fl High 35.1-43.9 [facility] Erythrocyte morphology asses smentOrdered By: Nina Waters on 10-13-2024 RBC morphology finding Nom (Bld) NORM C+C NORMAL NORM C&C [facility] Glomerular filtration rate ( GFR) estimation/1.73 sq m using serum, plasma, or whole bOrdered By: Nina Waters on 10-13-2024 GFR/1.73 sq M.predicted among non-blacks MDRD (S/P/Bld) [Vol rate/Area] 32 mL/min/{1.73_m2} Low >60 [facility] Comment on above: mL/min/1.73m2 CKD-EP I Creatinine Equation (2020) Hematocrit Auto (Bld) [Volum e fraction]Ordered By: Nina Waters on 10-13-2024 Hematocrit (Bld) [Volume fraction] 33.5 % Low 40-54 [facility] Hemoglobin measurementOrdere d By: Nina Waters on 10-13-2024 Hemoglobin (Bld) [Mass/Vol] 10.2 g/dL Low 13.0-16.5 [facility] Immature granulocytes/100 WB C Auto (Bld)Ordered By: Nina Waters on 10-13-2024 Immature granulocytes/100 WBC (Bld) 0.400 % 0.0-0.9 [facility] Comment on above: IG% - Immature Granu locytes (promyelocytes, myelocytes and metamyelocytes) > 1% indicates that a LEFT SHIFT is Present. L503.7505on 10-13-2024 Natriuretic peptide B (Bld) [Mass/Vol] 2639 pg/mL High <=1800 [facility] Comment on above: Order Comment: Order Date: 10/13/24 Order Info: 0667-1 - BMP Result Comment: Hear t Failure Unlikely: < 300 pg/mL Heart Failure Likely < 50 Years: > 450 pg/mL 50-75 Years: > 900 pg/mL >75 Years: > 1800 pg/mL Performed By: #### L 503.7505 #### [facility] [address] [place], [address] MCV (mean corpuscular volume ) determinationOrdered By: Ninameredith Waters on 10-13-2024 MCV (RBC) [Entitic vol] 89.8 fL 80-94 [facility] Mean corpuscular hemoglobin (MCH) determinationOrdered By: Ninameredith Waters on 10-13-2024 MCH (RBC) [Entitic mass] 27.3 pg 27.0-32.0 [facility] Mean corpuscular hemoglobin concentration (MCHC) determinationOrdered By: Nina Waters on 10-13-2024 MCHC (RBC) [Mass/Vol] 30.4 g/dL Low 32-36 [facility] Mean platelet volume determi nationOrdered By: Ninameredith Waters on 10-13-2024 Platelet mean volume (Bld) [Entitic vol] 10.2 fL 6.2-12.0 [facility] Monocyte percentageOrdered B y: Nina Waters on 10-13-2024 Monocytes/100 WBC (Bld) 5.9 % 0-10 [facility] Natriuretic peptide.B prohor peter N-Terminal [Mass/volume] in Serum or PlasmaOrdered By: Nina Waters on 10-13-2024 Natriuretic peptide.B prohormone N-Terminal [Mass/Vol] 2639 pg/mL High <1800 [facility] Comment on above: Heart Failure Unlike ly: < 300 pg/mLHeart Failure Likely< 50 Years: > 450 pg/mL50-75 Years: > 900 pg/mL>75 Years: > 1800 pg/mL Neutrophil percentageOrdered By: Nina Waters on 10-13-2024 Neutrophils/100 WBC (Bld) 11.0 % Low 47-70 [facility] Nucleated red blood cell per centageOrdered By: Nina Waters on 10-13-2024 Nucleated RBC/100 WBC (Bld) [Ratio] 0.1 % 0-5 [facility] Ovalocyte detectionOrdered B y: Nina Waters on 10-13-2024 Ovalocytes LM Ql (Bld) 1+ [facility] Platelet countOrdered By: Pj Waters on 10-13-2024 Platelets (Bld) [#/Vol] 261 10*3/uL 150-450 [facility] Platelet estimateOrdered By: Nina Waters on 10-13-2024 Platelets LM Ql (Bld) A ADEQ [facility] Potassium measurement (mass/ volume)Ordered By: Nina Waters on 10-13-2024 Potassium (Unsp spec) [Mass/Vol] 4.6 mmol/L 3.3-5.1 [facility] RBC Auto (Bld) [#/Vol]Ordere d By: Nina Waters on 10-13-2024 RBC (Bld) [#/Vol] 3.73 10*6/uL Low 4.6-6.2 [facility] Review by pathologistOrdered By: Nina Waters on 10-13-2024 Pathologist review Felice (Unsp spec) [Interp] September [facility] Serum creatinine measurement (mass/volume)Ordered By: Nina Waters on 10-13-2024 Creatinine [Mass/Vol] 1.99 mg/dL High 0.70-1.20 [facility] Serum glucose measurement (m ass/volume)Ordered By: Nina Waters on 10-13-2024 Glucose [Mass/Vol] 176 mg/dL High 70-99 [facility] Serum or plasma calcium jamila urement (mass/volume)Ordered By: Nina Waters on 10-13-2024 Calcium [Mass/Vol] 9.3 mg/dL 7.6-11.0 [facility] Serum or plasma urea nitroge n measurement (mass/volume)Ordered By: Nina Waters on 10-13-2024 Urea nitrogen [Mass/Vol] 46 mg/dL High 4-19 [facility] Sodium levelOrdered By: Nina Waters on 10-13-2024 Sodium [Moles/Vol] 141 mmol/L 133-145 [facility] White blood cell (WBC) count Ordered By: Nina Waters on 10-13-2024 WBC (Bld) [#/Vol] 34.3 10*3/uL High 4.4-11.0 [facility] Comment on above: CRITICAL VALUE PRAKASH D TO Sergio [id number]/02/25 1603 Missy Oconnell.RESULTS READ BACK BY SAME. Cardiology Visit Reporton Cardiology Visit Report [facility] [address] [place] [address] OFFICE VISIT Date of Service: 10/02/24 MR#: [id number] Acct: [id number] Name: JAIME ANN Rep #: [id number] : 1940 Provider: RENETTA valles Age/Sex: 84/M Location: [facility] Status: Signed HPI HPI History of Present Illness Details: Patient is a very pleasant 84-year-old white male who presents to the office today for a cardiovascular follow-up visit. Patient has been lightheaded and very unsteady on his feet. He has a known history of heart failure reduced ejection fraction in the 30% range. Echocardiogram in July 2023 showed 3+ MR he also has a history of chronic anemia and CLL he is usual white count is in the 50,000 range. He also has chronic kidney disease and is status post MATTRESS STRIPPER-D implant followed to the [place] device clinic. From a cardiac standpoint, the patient is doing well. He denies any palpitations, chest pain, pressure or heaviness. He denies SOB, Orthopnea, and PND. He does not have bleeding issues; no blood in urine, stool, or nosebleeds. He denies any decrease in energy level, myalgias, or claudication. He does not have edema, or sudden weight gain. He does have slight lightheadedness with positional changes. He states this has improved slightly from the decrease in medications. He denies dizziness, syncopal or near syncopal episodes, and headaches. Intake Vital Signs 09/04/24 11:36 10/02/24 06:51 Height 5 ft 10 in 5 ft 10 in Weight: 164 lb BMI 23.5 BP 171/82 H Blood Pressure Location Lt brachial Position Sitting Respiration 18 Pulse 70 Pulse Source Monitor Pulse Oximetry (%) 99 Intake Visit Reasons: 1 M FU [employer] Person Required: No Is patient in pain?: No Allergies lisinopril Adverse Reaction (Unknown, Verified 10/02/24 11:54) cough Medications ???Medication ???Instructions ???Recorded ???Confirmed ???Type cholecalciferol (vitamin D3) 25 50 mcg PO DAILY 08/09/16 10/02/24 History mcg (1,000 unit) capsule (Vitamin D3) zinc acetate 50 mg (zinc) capsule 50 mg PO DAILY 08/24/22 10/02/24 History atorvastatin 10 mg tablet 10 mg PO DAILY 03/04/23 10/02/24 H istory polysaccharide iron complex 150 mg 150 mg PO DAILY #30 caps 3 10/02/24 Rx iron capsule (Ferrex) omeprazole 20 mg capsule,delayed 20 mg PO QDAY 11/23/23 10/02/24 Hi story release gabapentin 100 mg capsule 200 mg PO QAM 07/10/24 10/02/24 Hi story tamsulosin 0.4 mg capsule mg PO DAILY 07/10/24 10/02/24 Hist ory sacubitril 49 mg-valsartan 51 mg 0.5 tab PO BID Pt has large supply 07/16/24 10/02/24 Rx tablet (Entresto) from [facility] tabs potassium chloride 10 mEq 10 meq PO DAILY #90 caps 09/09/24 10/02/24 Rx capsule,extended release carvedilol 12.5 mg tablet 25 mg PO BID 10/02/24 10/02/24 His tory furosemide 40 mg tablet 20 mg PO QDAY dose decreasd by 10/02/24 History Aida gabapentin 300 mg capsule 200 mg PO QHS 10/02/24 10/02/24 Hi story Ejection fraction %: 30 Have you fallen in the past year?: No PFSH Medical History Chronic HFrEF (heart failure with reduced ejection fraction) Cancer ICD (implantable cardioverter-defibrillat or) in place Myocardial infarct Personal history of chronic lymphocytic leukemia HFrEF (heart failure with reduced ejection fraction) CKD (chronic kidney disease), stage III Back pain due to injury High cholesterol Orthostatic hypotension Restless leg syndrome Iron deficiency anemia LBBB (left bundle branch block) Subdural hematoma Peripheral neuropathy Non-ischemic cardiomyopathy Essential hypertension Pacemaker Ventricular tachycardia CLL (chronic lymphocytic leukemia) Prostate cancer Surgical History S/P TURP Status post laser lithotripsy of ureteral calculus History of left heart catheterization (09/22/15) Splenic artery aneurysm Cardiac 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 therapy defibrillator (MATTRESS STRIPPER-D) in place ( 09/2015) History of colonoscopy History of arthroplasty of finger of left hand Family History Mother CVA (cerebral vascular accident) Hypertension Diabetes Father Ischemic heart disease Diabetes Social History household members: spouse Smoking Status: Never smoker alcohol intake: never substance use type: does not use caffeine: Yes Type: coffee Number of servings: 3 ROS Const Const: Negative for fatigue, weakness, headache(s) or frequent falls Eyes Eyes: Negative for blurry vision ENT ENT: Negative for headache(s), dizziness or Nosebleed/epistaxis Car (more content not included)... Normal [facility] CBC W/Diff, Automatedon 09-11 PATH REV Reviewed Normal [facility] Comment on above: Result Comment: SEE REPORT IN PATIENT'S EMR. Performed By: #### L 100.0100, L500.2500 #### [facility] [address] [place], [address] Absolute lymphocyte countOrd ered By: Loc Thorne on 09-04-2024 Lymphocytes Auto (Unsp spec) [#/Vol] 42.57 10*3/uL High 0.83-4.51 [facility] Absolute neutrophil countOrd ered By: Loc Thorne on 09-04-2024 Neutrophils (Bld) [#/Vol] 6.1 10*3/uL 2.0-7.7 [facility] Anion gap in Serum or Plasma Ordered By: Loc Thorne on 04-24-2025 Anion gap [Moles/Vol] 8 mmol/L 5-15 [facility] Automated lymphocyte count a s percentage of total leukocytesOrdered By: Loc Thorne on 09-04-2024 Lymphocytes/100 WBC Auto (Unsp spec) 84.4 % High 19-41 [facility] BUN/creatinine ratioOrdered By: Loc Thorne on 09-04-2024 Urea nitrogen/Creatinine [Mass ratio] 26.4 mg/mg High 10- [facility] Basic Metabolic Profile (BMP )on 09-04-2024 BUN/CRE 26.4 RATIO High 10- [facility] Comment on above: Performed By: #### L 100.0100, L500.2500 #### [facility] [address] [place], [address] Calcium [Mass/Vol] 8.7 mg/dL Normal 7.6-11.0 [facility] Comment on above: Performed By: #### L 100.0100, L500.2500 #### [facility] [address] [place], [address] Chloride [Moles/Vol] 108 mmol/L Normal 98-108 [facility] Comment on above: Performed By: #### L 100.0100, L500.2500 #### [facility] [address] [place], [address] CO2 [Moles/Vol] 25.7 mmol/L Normal 21.0-32.0 [facility] Comment on above: Performed By: #### L 100.0100, L500.2500 #### [facility] [address] [place], [address] Creatinine [Mass/Vol] 1.65 mg/dL High 0.70-1.20 [facility] Comment on above: Performed By: #### L 100.0100, L500.2500 #### [facility] [address] [place], [address] GAP 8 Normal -15 [facility] Comment on above: Performed By: #### L 100.0100, L500.2500 #### [facility] [address] [place], [address] GFR/1.73 sq M.predicted among non-blacks MDRD (S/P/Bld) [Vol rate/Area] 40 mL/min/{1.73_m2} Low >60 [facility] Comment on above: Result Comment: mL/m in/1.73m2 CKD-EPI Creatinine Equation (2020) Performed By: #### L 100.0100, L500.2500 #### [facility] [address] [place], [address] Glucose [Mass/Vol] 88 mg/dL Normal 70-99 [facility] Comment on above: Performed By: #### L 100.0100, L500.2500 #### [facility] [address] [place], [address] Potassium [Moles/Vol] 4.7 mmol/L Normal 3.3-5.1 [facility] Comment on above: Performed By: #### L 100.0100, L500.2500 #### [facility] [address] [place], [address] Sodium [Moles/Vol] 141 mmol/L Normal 133-145 [facility] Comment on above: Performed By: #### L 100.0100, L500.2500 #### [facility] [address] [place], [address] Urea nitrogen [Mass/Vol] 44 mg/dL High 4-19 [facility] Comment on above: Performed By: #### L 100.0100, L500.2500 #### [facility] [address] [place], [address] Basophil percentageOrdered B y: Loc Thorne on 09-04-2024 Basophils/100 WBC (Bld) 0.4 % 0-1 [facility] Carbon dioxide, total [Moles /volume] in Central venous bloodOrdered By: Loc Thorne on 09-04-2024 CO2 [Moles/Vol] 25.7 mmol/L 21.0-32.0 [facility] Cardiology Visit Reporton Cardiology Visit Report [facility] [address] [place] [address] OFFICE VISIT Date of Service: 09/04/24 MR#: [id number] Acct: [id number] Name: JAIME ANN Rep #: [id number] : 1940 Provider: Dr. Loc jensen MD Age/Sex: 84/M Location: [facility] Status: Signed with Addenda ADDENDUM by Dr. Loc Thorne MD on 09/04/24 at 1211 Addendum Addendum Details:: Patient's MATTRESS STRIPPER-D device was interrogated today in the [facility] device clinic. He is BiV paced 99% of the time. There were no 8 atrial tach or atrial fibs episodes there were 4 nonsustained VT episodes lasting was April 09, 2024. The patient has not received any therapeutic shocks since his last interrogation. Assessment and Plan Assessment and Plan (1) CLL (chronic lymphocytic leukemia): Status: Chronic Comment: Lymphocytes are rising. No indication for therapy. (2) Non-ischemic cardiomyopathy: Status: Acute (3) Anemia: Status: Acute Qualifiers: Anemia type: unspecified type Qualified Code(s): D64.9 - Anemia, unspecified (4) Dizziness: Status: Chronic Orders: Orders Basic Metabolic Profile (BMP) Today C91.10 - Chronic lymphocytic leukemia of B-cell type not having achieved remission, I42.8 - Other cardiomyopathies CBC W/Diff, Automated Today Z85.6 - Personal history of leukemia Medications: Changed From carvedilol 25 mg PO BID 180 tabs 3RF To carvedilol 12.5 mg PO BID 30 tabs 11RF Plan Details Follow Up: 1 Month (With ALEX and as needed) 09/04/24 1211 Date Loc Thorne MD cc: Dr. Leona Parra MD * Signed HPI HPI History of Present Illness Details: Patient is a very pleasant 84-year-old white male that comes in today for monitoring of his cardiovascular status Patient has been lightheaded and very unsteady on his feet. He has a known history of heart failure reduced ejection fraction in the 30% range. Echocardiogram in July 2023 showed 3+ MR he also has a history of chronic anemia and CLL he is usual white count is in the 50,000 range. He also has chronic kidney disease and is status post MATTRESS STRIPPER-D implant followed to the [place] device clinic. Orthostatics were done in the office today he was 125/63 sitting 101/60 standing and his heart rate went from 73-66 sitting to standing. This is not consistent with a diagnosis of orthostasis. We had previously cut his Entresto in half. Due to low resting blood pressures. The patient has had carotids done 5 years ago that had minimal disease bilaterally. And the patient has a nonischemic cardiomyopathy. He denies any lower extremity edema denies any PND orthopnea at this time. He reports that for months he has had this situation where when he stands up he has to stand for a little while to get equilibrated before he starts to walk. Intake Vital Signs 07/16/24 14:10 09/04/24 11:36 09/04/24 11:37 Height 5 ft 10 in 5 ft 10 in Weight: 163 lb 6 oz 167 lb BMI 23.4 23.9 BP 109/59 L 125/63 H 101/60 Blood Pressure Location Lt brachial Lt brachial Lt brachial Position Sitting Sitting Standing Respiration 18 18 18 Pulse 65 73 66 Pulse Source Monitor Monitor Monitor Temp 98.3 F Temperature Source Temporal Artery Pulse Oximetry (%) 98 90 89 Oxygen Delivery Method room air room air room air Intake Visit Reasons: 6 M FU/Sees Zulma @ [employer] Person Required: No Accompanied by: Self Is patient in pain?: No Allergies lisinopril Adverse Reaction (Unknown, Verified 09/04/24 11:28) cough Medications ???Medication ???Instructions ???Recorded ???Confirmed ???Type cholecalciferol (vitamin D3) 25 50 mcg PO DAILY 08/09/16 09/04/24 History mcg (1,000 unit) capsule (Vitamin D3) zinc acetate 50 mg (zinc) capsule 50 mg PO DAILY 08/24/22 09/04/24 History atorvastatin 10 mg tablet 10 mg PO DAILY 03/04/23 09/04/24 H istory polysaccharide iron complex 150 mg 150 mg PO DAILY #30 caps 3 09/04/24 Rx iron capsule (Ferrex) potassium chloride 10 mEq 10 meq PO DAILY 08/07/23 09/04/24 History capsule,extended release omeprazole 20 mg capsule,delayed 20 mg PO QDAY 11/23/23 09/04/24 Hi story release furosemide 40 mg tablet 20 mg (1/2 x 40 mg) PO QDAY dose 0 06/12/24 09/04/[address] Parra #0 tabs gabapentin 100 mg capsule 200 mg PO QAM 07/10/24 09/04/24 Hi story gabapentin 300 mg capsule 300 mg PO QHS 07/10/24 09/04/24 Hi story tamsulosin 0.4 mg capsule mg PO DAILY 07/10/24 09/04/24 Hist ory sacubitril 49 mg-valsartan 51 mg 0.5 tab PO BID Pt has large supply 07/16/24 09/04/24 Rx tablet (Entresto) from [facility] #90 tabs carvedilol 12.5 mg tablet 12.5 mg PO BID #30 tabs 09/04/24 0 09/04/24 Rx Ejection fra (more content not included)... Normal [facility] Chloride assayOrdered By: Beatriz Thorne on 09-04-2024 Chloride [Moles/Vol] 108 mmol/L 98-108 [facility] Eosinophil percentageOrdered By: Loc Thorne on 09-04-2024 Eosinophils/100 WBC (Bld) 0.9 % 0-5 [facility] Erythrocyte distribution wid th ratioOrdered By: Loc Thorne on 09-04-2024 Erythrocyte distribution width (RBC) [Ratio] 18.1 % High 11.6-14.6 [facility] Erythrocyte distribution wid th standard deviationOrdered By: Loc Throne on 09-04-2024 Erythrocyte distribution width (RBC) [Ratio] 59.2 fl High 35.1-43.9 [facility] Glomerular filtration rate ( GFR) estimation/1.73 sq m using serum, plasma, or whole bOrdered By: Loc Thorne on 09-04-2024 GFR/1.73 sq M.predicted among non-blacks MDRD (S/P/Bld) [Vol rate/Area] 40 mL/min/{1.73_m2} Low >60 [facility] Comment on above: mL/min/1.73m2 CKD-EP I Creatinine Equation (2020) Hematocrit Auto (Bld) [Volum e fraction]Ordered By: Loc Thorne on 09-04-2024 Hematocrit (Bld) [Volume fraction] 32.2 % Low 40-54 [facility] Hemoglobin measurementOrdere d By: Loc Thorne on 09-04-2024 Hemoglobin (Bld) [Mass/Vol] 9.8 g/dL Low 13.0-16.5 [facility] Immature granulocytes/100 WB C Auto (Bld)Ordered By: Loc Thorne on 09-04-2024 Immature granulocytes/100 WBC (Bld) 0.300 % 0.0-0.9 [facility] Comment on above: IG% - Immature Granu locytes (promyelocytes, myelocytes and metamyelocytes) > 1% indicates that a LEFT SHIFT is Present. MCV (mean corpuscular volume ) determinationOrdered By: Loc Thorne on 09-04-2024 MCV (RBC) [Entitic vol] 89.9 fL 80-94 [facility] Mean corpuscular hemoglobin (MCH) determinationOrdered By: Loc Thorne on 09-04-2024 MCH (RBC) [Entitic mass] 27.4 pg 27.0-32.0 [facility] Mean corpuscular hemoglobin concentration (MCHC) determinationOrdered By: Loc Thorne on 09-04-2024 MCHC (RBC) [Mass/Vol] 30.4 g/dL Low 32-36 [facility] Mean platelet volume determi nationOrdered By: Loc Thorne on 09-04-2024 Platelet mean volume (Bld) [Entitic vol] 9.8 fL 6.2-12.0 [facility] Monocyte percentageOrdered B y: Loc Thorne on 09-04-2024 Monocytes/100 WBC (Bld) 1.9 % 0-10 [facility] Neutrophil percentageOrdered By: Loc Thorne on 09-04-2024 Neutrophils/100 WBC (Bld) 12.1 % Low 47-70 [facility] Nucleated red blood cell per centageOrdered By: Loc Thorne on 09-04-2024 Nucleated RBC/100 WBC (Bld) [Ratio] 0 % 0-5 [facility] Pacemaker Checkon 09-04-2024 Pacemaker Check [facility] [address] [place] [address] Pacemaker Check Date of Service: 09/04/24 1542 MR#: [id number] Acct: [id number] Name: JAIME ANN Rep #: [id number] : 1940 From: Cindy Powell Age/Sex: 84/M Location: [facility] Status: Signed Billing Codes ICD Device Billin ICD Dev Prog Eval, Multi Assessment and Plan Assessment and Plan (1) Cardiac 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 therapy defibrillator (MATTRESS STRIPPER-D) in place: Status: Chronic (2) Ventricular tachycardia: Status: Chronic (3) Non-ischemic cardiomyopathy: Status: Acute (4) LBBB (left bundle branch block): Status: Chronic 09/04/24 1543 Date Cindy Lee Signature: Date (if applicable) CC: Normal [facility] Platelet countOrdered By: Beatriz Thorne on 09-04-2024 Platelets (Bld) [#/Vol] 198 10*3/uL 150-450 [facility] Potassium measurement (mass/ volume)Ordered By: Loc Thorne on 09-04-2024 Potassium (Unsp spec) [Mass/Vol] 4.7 mmol/L 3.3-5.1 [facility] RBC Auto (Bld) [#/Vol]Ordere d By: Loc Thorne on 09-04-2024 RBC (Bld) [#/Vol] 3.58 10*6/uL Low 4.6-6.2 [facility] Review by pathologistOrdered By: Loc Thorne on 09-04-2024 Pathologist review Felice (Unsp spec) [Interp] Reviewed [facility] Comment on above: SEE REPORT IN ROSA[facility]A Tucker'S EMR. Serum creatinine measurement (mass/volume)Ordered By: Loc Thorne on 09-04-2024 Creatinine [Mass/Vol] 1.65 mg/dL High 0.70-1.20 [facility] Serum glucose measurement (m ass/volume)Ordered By: Loc Thorne on 09-04-2024 Glucose [Mass/Vol] 88 mg/dL 70-99 [facility] Serum or plasma calcium jamila urement (mass/volume)Ordered By: Loc Thorne on 09-04-2024 Calcium [Mass/Vol] 8.7 mg/dL 7.6-11.0 [facility] Serum or plasma urea nitroge n measurement (mass/volume)Ordered By: Loc hTorne on 09-04-2024 Urea nitrogen [Mass/Vol] 44 mg/dL High 4-19 [facility] Smudge cell detectionOrdered By: Loc Thorne on 09-04-2024 Smudge cells LM Ql (Bld) 2+ [facility] Sodium levelOrdered By: Vasile Thorne on 09-04-2024 Sodium [Moles/Vol] 141 mmol/L 133-145 [facility] White blood cell (WBC) count Ordered By: Loc Thorne on 09-04-2024 WBC (Bld) [#/Vol] 50.5 10*3/uL High 4.4-11.0 [facility] Comment on above: CRITICAL VALUE PRAKASH Gab MESSER RN ([facility])09/04/24 1237 Eulalio Dietz.RESULTS READ BACK BY SAME. Oncology Visit Reporton Oncology Visit Report [facility] [address] [place] [address] OFFICE VISIT Date of Service: 07/16/24 1409 MR#: [id number] Acct: [id number] Name: ETHANJAIMERUBIO VERDE Rep #: [id number] : 1940 From: Ean Bush MD Age/Sex: 83/M Location: [facility] Status: Signed HPI Subjective Date of Service 07/16/24 Chief Complaint F/u for CLL and Ampullary tumor. History of Present Illness 83 y.o.man was diagnosed with CLL stage 0 in 2003. He has not required therapy. He was diagnosed with Prostate Cancer stage IIA, finished Radiation therapy in July 2015 and received LHRH agonist by Dr. Payne. He was admitted to [facility] with UTI, found to have Iron deficiency anemia, started on Oral Iron, had nausea and vomiting so stopped. 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 MRI abdomen on 04/20/2023 showed no pancreatic mass, cysts in liver and kidneys, ?metastatic retroperitoneal node. CA19-9 on 04/17/2023 was 49. PET/CT ON 05/08/2023 was negative. Saw Surgeon at [facility], had Endoscopy on 05/28/2022. He reports that the biopsy was negative. 08/20/23 EGD: Impressions : - Normal esophagus. - Chronic gastritis. Biopsied (Spec # [id number] gastric antrum: mild gastritis). - Normal second portion of the duodenum. He is on observation, had CT done,comes for follow up. H feels well. [facility] Medical History Chronic HFrEF (heart failure with reduced ejection fraction) Cancer ICD (implantable cardioverter-defibrillat or) in place Myocardial infarct Personal history of chronic lymphocytic leukemia HFrEF (heart failure with reduced ejection fraction) CKD (chronic kidney disease), stage III Back pain due to injury High cholesterol Orthostatic hypotension Restless leg syndrome Iron deficiency anemia LBBB (left bundle branch block) Subdural hematoma Peripheral neuropathy Non-ischemic cardiomyopathy Essential hypertension Pacemaker Ventricular tachycardia CLL (chronic lymphocytic leukemia) Prostate cancer Surgical History S/P TURP Status post laser lithotripsy of ureteral calculus History of left heart catheterization (09/22/15) Splenic artery aneurysm Cardiac 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 therapy defibrillator (MATTRESS STRIPPER-D) in place ( 09/2015) History of colonoscopy History of arthroplasty of finger of left hand Family History Mother CVA (cerebral vascular accident) Hypertension Diabetes Father Ischemic heart disease Diabetes Social History household members: spouse Smoking Status: Never smoker alcohol intake: never substance use type: does not use caffeine: Yes Type: coffee Number of servings: 3 Intake Vital Signs 06/24/24 14:57 07/10/24 10:14 07/16/24 14:10 Height 5 ft 10 in 5 ft 10 in 5 ft 10 in Weight: 73.936 kg 74.106 kg BMI 23.3 23.4 BP 104/60 109/59 L Blood Pressure Location Lt brachial Lt brachial Position Sitting Sitting Respiration 18 18 Pulse 65 65 Pulse Source NIBP Monitor Temp 98.3 F Temperature Source Temporal Artery Pulse Oximetry (%) 98 Oxygen Delivery Method room air Intake Is patient in pain?: No Allergies lisinopril Adverse Reaction (Unknown, Verified 07/16/24 14:13) cough Medications ???Medication ???Instructions ???Recorded ???Confirmed ???Type cholecalciferol (vitamin D3) 25 50 mcg PO DAILY 08/09/16 07/16/24 History mcg (1,000 unit) capsule (Vitamin D3) carvedilol 25 mg tablet 25 mg PO BID 08/24/16 07/16/24 His tory zinc acetate 50 mg (zinc) capsule 50 mg PO DAILY 08/24/22 07/16/24 History atorvastatin 10 mg tablet 10 mg PO DAILY 03/04/23 07/16/24 H istory polysaccharide iron complex 150 mg 150 mg PO DAILY #30 caps 3 07/16/24 Rx iron capsule (Ferrex) potassium chloride 10 mEq 10 meq PO DAILY 08/07/23 07/16/24 History capsule,extended release omeprazole 20 mg capsule,delayed 20 mg PO QDAY 11/23/23 07/16/24 Hi story release furosemide 40 mg tablet 20 mg (1/2 x 40 mg) PO QDAY dose 0 06/12/24 07/16/[address] Parra #0 tabs gabapentin 100 mg capsule 200 mg PO QAM 02/27/25 03/05/25 Hi story gabapentin 300 mg capsule 300 mg PO QHS 07/10/24 07/16/24 Hi story tamsulosin 0.4 mg capsule mg PO DAILY 07/10/24 07/16/24 Hist ory sacubitril 49 mg-valsartan 51 mg 0.5 tab PO BID Pt has large supply 07/16/24 07/16/24 Rx tablet (Entresto) from [facility] Special[facility] #90 tabs Have you fallen in the past year?: No Central Venous Access Central Venous Access: No 07/09/2024 CT reviewed. (more content not included)... Normal [facility] Cardiology Visit Reporton Cardiology Visit Report [facility] [address] [place] [address] OFFICE VISIT Date of Service: 07/10/24 MR#: [id number] Acct: [id number] Name: JAIME ANN Rep #: [id number] : 1940 Provider: RENETTA burgess Age/Sex: 83/M Location: [facility] Status: Signed HPI HPI History of Present Illness Details: He has a history of heart failure with reduced ejection fraction at 30% range. He also carries a history of iron deficiency, anemia, and chronic lymphocytic leukemia with a white count in the 45- 50,000 range. He has chronic kidney disease with a GFR of around 30-35. He also has a history of MATTRESS STRIPPER-D implant. He denies chest, arm, jaw, or neck discomfort. He denies palpitations. He denies bilateral lower extremity edema. He denies claudication. He denies shortness of breath with activity, shortness of breath at rest, orthopnea, or PND. He denies chronic cough. He denies significant, sudden weight gain. He acknowledges occasional lightheadedness when changing positions. He denies dizziness, near- syncope, or syncope. He denies blood in urine, blood in stool, or epistaxis. He denies fever with chills. He denies myalgia. He denies fatigue. His exercise level has remained stable. Intake Vital Signs 02/26/24 11:27 07/10/24 10:14 Height 5 ft 10 in 5 ft 10 in Weight: 163 lb BMI 23.3 BP 104/60 Blood Pressure Location Lt brachial Position Sitting Respiration 18 Pulse 65 Pulse Source NIBP Intake Visit Reasons: Dr genevieve fitzpatrick [employer] Person Required: No Is patient in pain?: No Allergies lisinopril Adverse Reaction (Unknown, Verified 07/10/24 10:24) cough Medications ???Medication ???Instructions ???Recorded ???Confirmed ???Type cholecalciferol (vitamin D3) 25 50 mcg PO DAILY 08/09/16 07/10/24 History mcg (1,000 unit) capsule (Vitamin D3) carvedilol 25 mg tablet 25 mg PO BID 08/24/16 07/10/24 His tory zinc acetate 50 mg (zinc) capsule 50 mg PO DAILY 08/24/22 07/10/24 History atorvastatin 10 mg tablet 10 mg PO DAILY 03/04/23 07/10/24 H istory polysaccharide iron complex 150 mg 150 mg PO DAILY #30 caps 3 07/10/24 Rx iron capsule (Ferrex) potassium chloride 10 mEq 10 meq PO DAILY 08/07/23 07/10/24 History capsule,extended release omeprazole 20 mg capsule,delayed 20 mg PO QDAY 11/23/23 07/10/24 Hi story release furosemide 40 mg tablet 20 mg (1/2 x 40 mg) PO QDAY dose 0 06/12/24 07/10/[address] Parra #0 tabs gabapentin 100 mg capsule 200 mg PO QAM 07/10/24 History gabapentin 300 mg capsule 300 mg PO QHS 07/10/24 07/10/24 Hi story sacubitril 24 mg-valsartan 26 mg 1 tab PO BID #60 tabs 07/10/24 Rx tablet (Entresto) tamsulosin 0.4 mg capsule mg PO DAILY 07/10/24 07/10/24 Hist ory Ejection fraction %: 30 Have you fallen in the past year?: Yes (Slip and fall) [facility] Medical History Chronic HFrEF (heart failure with reduced ejection fraction) Cancer ICD (implantable cardioverter-defibrillat or) in place Myocardial infarct Personal history of chronic lymphocytic leukemia HFrEF (heart failure with reduced ejection fraction) CKD (chronic kidney disease), stage III Back pain due to injury High cholesterol Orthostatic hypotension Restless leg syndrome Iron deficiency anemia LBBB (left bundle branch block) Subdural hematoma Peripheral neuropathy Non-ischemic cardiomyopathy Essential hypertension Pacemaker Ventricular tachycardia CLL (chronic lymphocytic leukemia) Prostate cancer Surgical History S/P TURP Status post laser lithotripsy of ureteral calculus History of left heart catheterization (09/22/15) Splenic artery aneurysm Cardiac 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 therapy defibrillator (MATTRESS STRIPPER-D) in place ( 09/2015) History of colonoscopy History of arthroplasty of finger of left hand Family History Mother CVA (cerebral vascular accident) Hypertension Diabetes Father Ischemic heart disease Diabetes Social History household members: spouse Smoking Status: Never smoker alcohol intake: never substance use type: does not use caffeine: Yes Type: coffee Number of servings: 3 ROS Const Const: Negative for fatigue or weakness Eyes Eyes: Negative for change in vision ENT ENT: Negative for dizziness or balance problems Cardio Chest Pain: No Palpitations: No Edema: None Muscle aches with walking: None Resp Respiratory: Positive for Cough; Negative for SOB with activity, SOB at rest or SOB orthopnea SOB lying down GI GI: Negative nausea or heartburn : Negative for hematuria or frequent nighttime urination/ (more content not included)... Normal [facility] Abdomen without IV Contrasto n 07-09-2024 Abdomen without IV Contrast [facility] Imaging Services [address], [place] [address] Abdomen without IV Contrast MR#: [id number] Acct: [id number] Name: JAIME ANN Rep #: [id number] : 1940 M 83 From: Mark Hearn i, DO PCP: Dr. Leona Parra MD Status: REG CLI Study: Abdomen without IV Contrast Date of Exam: 06/15 11/05 Exam# [id number] Ordering Dr: Sherri Portillo [facility] [employer] -C PROCEDURE: Noncontrast CT of the abdomen. 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 TECHNIQUE: Contiguous unenhanced axial CT images were obtained through the abdomen. Sagittal and coronal reformats were created. COMPARISON: 08/17/2023 FINDINGS: Bones are osteopenic with degenerative changes in the spine. There is similar severe compression/vertebral plana deformity of the T12 vertebral body. There is similar posterior cortical retropulsion of T12 and [id number] central spinal canal narrowing. Evaluation of the solid organs and vascular structures is limited due to lack of intravenous contrast. Heart is not enlarged. No sizable pericardial effusion. Moderate coronary artery calcifications. Lower ribs intact. Some increased scarring or subsegmental atelectasis in the lower lobes. There is moderate enteric contrast in the stomach. Streak artifact from embolization coil in the left upper abdomen, between the posterior stomach and spleen, similar to the previous study. Multiple low-attenuation probable cysts of the liver, measuring up to 3.4 cm, not significantly changed. Probable gallstones in the gallbladder lumen without evidence of acute cholecystitis. The gallbladder undo that the common duct measures 9 mm near the level of the pancreatic head, probably not significantly different. There is a 17 mm filling defect/area of nodularity at the medial aspect 1st segment of the duodenum on image 67 of the axial images. This is not well evaluated on the prior study due to lack of oral contrast. No abnormally dilated bowel segments of the abdomen. Moderate colonic diverticulosis. Moderate stool in the colon. Normal appendix. The adrenal glands are unremarkable. Heterogeneous/lobulated appearance of the spleen similar to the prior study. No focal abnormality of the pancreas on the provided noncontrast images. There is similar to slightly worsened moderate dilation of the right renal collecting system and included right ureter without obstructing calculus. There is severe worsened distention of the left renal collecting system and left renal pelvis, as well as the included left ureter. The lower pelvis is not included on this study. A 3.7 cm probable proteinaceous cyst at the medial aspect of the left kidney is not significantly changed from the prior study. The abdominal aorta is normal in caliber with a moderate amount of atherosclerotic calcification. There are either tortuous vascular structures in the upper abdomen/left retroperitoneum versus adenopathy in these locations, not significantly changed from 08/17/2023. 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 This is not well demonstrated/evaluated on the prior study due to lack of intravenous contrast. The common duct measures 9 mm near the pancreatic head, which can be within normal limits for patient of this age. There are either tortuous vascular structures or adenopathy in the upper abdomen and left retroperitoneum, not significantly changed from the prior study. Similar moderate distention/dilation of the right renal pelvis and right ureter and worsened severe distention of the left renal pelvis and left ureter. The distal ureters are not included on this examination. No radiopaque obstructing calculus. Colonic diverticulosis, partially included. Similar lobulated heterogeneous appearance of the spleen. Embolization coil in the upper abdomen, between the posterior stomach and spleen, similar to the previous study. Similar hepatic cysts. One or more dose reduction techniques were used (e.g., Automated exposure control, adjustment of the mA and/or kV according to patient size, use of iterative reconstruction technique). Reading Location: [facility] CC: GARNETT FEEDERRafi Portillo; Dr. Leona Parra MD Manuscripts Curator: Signed Normal [facility] Oncology Visit Reporton 06-14 Oncology Visit Report [facility] [address] [place] [address] OFFICE VISIT Date of Service: 06/24/24 1456 MR#: [id number] Acct: [id number] Name: JAIME ANN MEHREEN Rep #: [id number] : 1940 From: Sherri Portillo NP [employer]ER Rafi Age/Sex: 83/M Location: [facility] Status: Signed HPI Subjective Date of Service 06/21/23 Chief Complaint F/u for CLL and new Ampullary tumor. History of Present Illness 83 y.o.man was diagnosed with CLL stage 0 in 2003. He has not required therapy. He was diagnosed with Prostate Cancer stage IIA, finished Radiation therapy in July 2015 and received LHRH agonist by Dr. Payne. He was admitted to [facility] with UTI, found to have Iron deficiency anemia, started on Oral Iron, had nausea and vomiting so stopped. 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 MRI abdomen on 04/20/2023 showed no pancreatic mass, cysts in liver and kidneys, ?metastatic retroperitoneal node. CA19-9 on 04/17/2023 was 49. PET/CT ON 05/08/2023 was negative. Saw Surgeon at [facility], had Endoscopy on 05/28/2022. He reports that the biopsy was negative. 08/20/23 EGD: Impressions : - Normal esophagus. - Chronic gastritis. Biopsied (Spec # [id number] gastric antrum: mild gastritis). - Normal second portion of the duodenum. Interval History The patient is presenting to clinic for a planned 1 year follow up. Recently experienced a viral URI, has residual occasional cough. This is being managed by his pcp, thinks he may have been taking steroids last week with cough suppressant to address cough. Specifically denies headaches, enlarged lymph nodes, dysphagia, night sweats, CP, palpitations, SOB, abd pain, swelling/pain of his extremities, melena, hematochezia. Takes iron and vitamin C daily. Nocturia ongoing, up 2 times per night typically. Follows with Dr. Payne every 6 months. [facility] Medical History Chronic HFrEF (heart failure with reduced ejection fraction) Cancer ICD (implantable cardioverter-defibrillat or) in place Myocardial infarct Personal history of chronic lymphocytic leukemia HFrEF (heart failure with reduced ejection fraction) CKD (chronic kidney disease), stage III Back pain due to injury High cholesterol Orthostatic hypotension Restless leg syndrome Iron deficiency anemia LBBB (left bundle branch block) Subdural hematoma Peripheral neuropathy Non-ischemic cardiomyopathy Essential hypertension Pacemaker Ventricular tachycardia CLL (chronic lymphocytic leukemia) Prostate cancer Surgical History S/P TURP Status post laser lithotripsy of ureteral calculus History of left heart catheterization (09/22/15) Splenic artery aneurysm Cardiac 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 therapy defibrillator (MATTRESS STRIPPER-D) in place ( 09/2015) History of colonoscopy History of arthroplasty of finger of left hand Family History Mother CVA (cerebral vascular accident) Hypertension Diabetes Father Ischemic heart disease Diabetes Social History household members: spouse Smoking Status: Never smoker alcohol intake: never substance use type: does not use caffeine: Yes Type: coffee Number of servings: 3 ROS ROS Narrative Negative except as documented in the interval HPI Intake Vital Signs 02/26/24 11:27 06/24/24 14:57 Height 5 ft 10 in 5 ft 10 in Weight: 168 lb 4 oz BMI 24.1 BP 120/60 Blood Pressure Location Lt brachial Position Sitting Respiration 18 Pulse 62 Pulse Source Monitor Temp 97 F L Temperature Source Temporal Artery Pulse Oximetry (%) 94 Oxygen Delivery Method room air Intake Is patient in pain?: No Allergies lisinopril Adverse Reaction (Unknown, Verified 06/24/24 14:56) cough Medications ???Medication ???Instructions ???Recorded ???Confirmed ???Type cholecalciferol (vitamin D3) 25 50 mcg PO DAILY 08/09/16 06/24/24 History mcg (1,000 unit) capsule (Vitamin D3) carvedilol 25 mg tablet 25 mg PO BID 08/24/16 06/24/24 His tory sacubitril 49 mg-valsartan 51 mg 1 tab PO BID 08/24/22 06/24/24 His tory tablet (Entresto) zinc acetate 50 mg (zinc) capsule 50 mg PO DAILY 08/24/22 06/24/24 History atorvastatin 10 mg tablet 10 mg PO DAILY 03/04/23 06/24/24 H istory polysaccharide iron complex 150 mg 150 mg PO DAILY #30 caps 3 06/24/24 Rx iron capsule (Ferrex) potassium chloride 10 mEq 10 meq PO DAILY 08/07/23 06/24/24 History capsule,extended release bisacodyl 10 mg rectal suppository 10 mg MD DAILY #0 ea 08/20/23more content not included)... Normal [facility] Chest PA and Lateralon 06-23 Chest PA and Lateral [facility] Imaging Services [address] [place], [place] [address] Chest PA and Lateral MR#: [id number] Acct: [id number] Name: JAIME ANN Rep #: [id number] : 1940 M 83 From: Dimitri Wilcox DO PCP: Dr. Leona Parra MD Status: REG CLI Study: Chest PA and Lateral Date of Exam: 06/23/24 Exam# [id number] Ordering Dr: Leona Parra MD PROCEDURE: CHEST PA AND LATERAL REASON FOR EXAM: Productive cough. TECHNIQUE: Frontal and lateral views of the chest. COMPARISON: Chest x-ray from 08/16/2023. FINDINGS: Mild cardiomegaly is present. Pulmonary vasculature is within normal limits. No consolidation, pleural effusion, or pneumothorax is present. Left-sided pacemaker is present. Mild bibasilar atelectatic changes are present. RAD/Chest PA and Lateral IMPRESSION: No acute cardiopulmonary process. Reading Location: [facility] CC: Dr. Leona Parra MD Manuscripts Curator: Signed Normal [facility] CBC W/Diff, Automatedon PATH REV Reviewed Normal [facility] Comment on above: Result Comment: Abso lute lymphocytosis suggestive of low grade lympho- proliferative disorder. Normocytic anemia. Clinical correlation is necessary. Roby Michelle M.D. 06/19/24 AMENDED REPORT 06/19/24 0912 PATH REV previously reported as: September Performed By: #### L 101.9900, L503.6030, L501.6710, L100.9950, L500.4050, L3100.5020, L503.6550, L504.2610, L100.0100, L501.9940 ####[facility] [address] [place], [address] Carbohydrate AG 19-9on 06-18 CA 19-9 39 U/mL High 0-35 [facility] Comment on above: Result Comment: [employer] Electrochemiluminescence Immunoassay (ECLIA) Values obtained with different assay methods or kits cannot be used interchangeably. Results cannot be interpreted as absolute evidence of the presence or absence of malignant disease. Performed at: - [facility] [address], [place] [id number] [employer]: Sharad Armando PhD, Phone: [phone] Performed By: #### L 101.9900, L503.6030, L501.6710, L100.9950, L500.4050, L3100.5020, L503.6550, L504.2610, L100.0100, L501.9940 ####[facility] [address] [place], [address] Absolute neutrophil countOrd ered By: Ean Bush on 06-17-2024 Neutrophils (Bld) [#/Vol] 5.1 10*3/uL 2.0-7.7 [facility] Acanthocyte detectionOrdered By: Ean Eleazar on 06-17-2024 Acanthocytes 1+ [facility] Albumin to globulin ratioOrd ered By: Ean Bush on 06-17-2024 Albumin/Globulin [Mass ratio] 1.3 {ratio} 0.9-2.4 [facility] Basophil percentageOrdered B y: Ean [facility] on 06-17-2024 Basophils/100 WBC (Bld) 0.3 % 0-1 [facility] Bilirubin, totalOrdered By: Ean Bush on 06-17-2024 Bilirubin [Mass/Vol] 0.60 mg/dL 0.20-1.00 [facility] Comment on above: For patients on eltr ombopag therapy, use of Dimension Beacon TBIL is not recommended. Blood urea nitrogen (BUN)/cr eatinine ratioOrdered By: Ean Bush on 06-17-2024 Urea nitrogen/Creatinine [Mass ratio] 19.1 mg/mg 10-20 [facility] C-reactive protein measureme nt by high sensitivity methodOrdered By: Ean Bush on 06-17-2024 C-Reactive Protein Extended Range 16.00 mg/L High 0.0-3.0 [facility] Comment on above: C-Reactive Protein ( CRP) provides useful information for thediagnosis, therapy and monitoring of inflammatory processesand associated diseases. For the evaluation of Relative Riskfor Cardiovascular Disease, a High Sensitivity CRP (HSCRP)should be ordered. CA 19-9 agOrdered By: Ean Bush on 06-17-2024 CA 19-9 Antigen 39 U/mL High 0-35 [facility] Comment on above: [facility] El ectrochemiluminescence Immunoassay(ECLIA)Values obtained with different assay methods or kits cannotbe used interchangeably. Results cannot be interpreted asabsolute evidence of the presence or absence of malignantdisease.Performed at: [facility] [id number] Director: Sharad Armando PhD, Phone: [phone] CRPon 06-17-2024 C-REACTIVE PROT 16.00 mg/L High 0.0-3.0 [facility] Comment on above: Result Comment: C-Re active Protein (CRP) provides useful information for the diagnosis, therapy and monitoring of inflammatory processes and associated diseases. For the evaluation of Relative Risk for Cardiovascular Disease, a High Sensitivity CRP (HSCRP) should be ordered. Performed By: #### L 101.9900, L503.6030, L501.6710, L100.9950, L500.4050, L3100.5020, L503.6550, L504.2610, L100.0100, L501.9940 ####[facility] [address] [place], [address] Carbon dioxide measurementOr dered By: Ean Bsuh on 06-17-2024 CO2 [Moles/Vol] 27.0 mmol/L 21.0-32.0 [facility] Chloride measurementOrdered By: Ean Bush on 06-17-2024 Chloride [Moles/Vol] 108 mmol/L High 98-107 [facility] Comprehensive Metabolic Prof ilon 06-17-2024 Albumin [Mass/Vol] 3.2 g/dL Normal 3.2-5.0 [facility] Comment on above: Order Comment: N Performed By: #### L 101.9900, L503.6030, L501.6710, L100.9950, L500.4050, L3100.5020, L503.6550, L504.2610, L100.0100, L501.9940 ####[facility] [address] [place], [address] Albumin/Globulin [Mass ratio] 1.3 {ratio} Normal 0.9-2.4 [facility] Comment on above: Order Comment: N Performed By: #### L 101.9900, L503.6030, L501.6710, L100.9950, L500.4050, L3100.5020, L503.6550, L504.2610, L100.0100, L501.9940 ####[facility] [address] [place], [place], [id number] ALK P 79 U/L Normal 45-117 [facility] Comment on above: Order Comment: N Performed By: #### L 101.9900, L503.6030, L501.6710, L100.9950, L500.4050, L3100.5020, L503.6550, L504.2610, L100.0100, L501.9940 ####[facility] [address] [place], [place], [id number] ALT [Catalytic activity/Vol] 16 U/L Normal 16-61 [facility] Comment on above: Order Comment: N Performed By: #### L 101.9900, L503.6030, L501.6710, L100.9950, L500.4050, L3100.5020, L503.6550, L504.2610, L100.0100, L501.9940 ####[facility] [address] [place], [address] AST [Catalytic activity/Vol] 22 U/L Normal 15-37 [facility] Comment on above: Order Comment: N Performed By: #### L 101.9900, L503.6030, L501.6710, L100.9950, L500.4050, L3100.5020, L503.6550, L504.2610, L100.0100, L501.9940 ####[facility] [address] [place], [address] Bilirubin [Mass/Vol] 0.60 mg/dL Normal 0.20-1.00 [facility] Comment on above: Order Comment: N Result Comment: For patients on eltrombopag therapy, use of Dimension Beacon TBIL is not recommended. Performed By: #### L 101.9900, L503.6030, L501.6710, L100.9950, L500.4050, L3100.5020, L503.6550, L504.2610, L100.0100, L501.9940 ####[facility] [address] [place], [place], [phone] BUN/CRE 19.1 RATIO Normal 10-20 [facility] Comment on above: Order Comment: N Performed By: #### L 101.9900, L503.6030, L501.6710, L100.9950, L500.4050, L3100.5020, L503.6550, L504.2610, L100.0100, L501.9940 ####[facility] [address] [place], [place], [phone] CA,Total 8.8 mg/dL Normal 8.5-10.1 [facility] Comment on above: Order Comment: N Performed By: #### L 101.9900, L503.6030, L501.6710, L100.9950, L500.4050, L3100.5020, L503.6550, L504.2610, L100.0100, L501.9940 ####[facility] [address] [place], [address] Chloride [Moles/Vol] 108 mmol/L High 98-107 [facility] Comment on above: Order Comment: N Performed By: #### L 101.9900, L503.6030, L501.6710, L100.9950, L500.4050, L3100.5020, L503.6550, L504.2610, L100.0100, L501.9940 ####[facility] [address] [place], [address] CO2 [Moles/Vol] 27.0 mmol/L Normal 21.0-32.0 [facility] Comment on above: Order Comment: N Performed By: #### L 101.9900, L503.6030, L501.6710, L100.9950, L500.4050, L3100.5020, L503.6550, L504.2610, L100.0100, L501.9940 ####[facility] [address] [place], [address] Creatinine [Mass/Vol] 1.99 mg/dL High 0.70-1.30 [facility] Comment on above: Order Comment: N Result Comment: The validity of the calculated GFR GFRAA in patients over 70 years has not been determined. Clinical correlation is essential. Performed By: #### L 101.9900, L503.6030, L501.6710, L100.9950, L500.4050, L3100.5020, L503.6550, L504.2610, L100.0100, L501.9940 ####[facility] [address] [place], [address] ECRCL 26.26 ml/min Normal [facility] Comment on above: Order Comment: N Performed By: #### L 101.9900, L503.6030, L501.6710, L100.9950, L500.4050, L3100.5020, L503.6550, L504.2610, L100.0100, L501.9940 ####[facility] [address] [place], [address] EST GFR - AA 41 mL/min Low >60 [facility] Comment on above: Order Comment: N Result Comment: Afri can Thai GFR Calc Performed By: #### L 101.9900, L503.6030, L501.6710, L100.9950, L500.4050, L3100.5020, L503.6550, L504.2610, L100.0100, L501.9940 ####[facility] [address] [place], [place], [phone]) GAP 6 Normal 5-15 [facility] Comment on above: Order Comment: N Performed By: #### L 101.9900, L503.6030, L501.6710, L100.9950, L500.4050, L3100.5020, L503.6550, L504.2610, L100.0100, L501.9940 ####[facility] [address] [place], [place], [phone]) GFR/1.73 sq M.predicted among non-blacks MDRD (S/P/Bld) [Vol rate/Area] 34 mL/min/{1.73_m2} Low >60 [facility] Comment on above: Order Comment: N Result Comment: Non- GFR Calc Performed By: #### L 101.9900, L503.6030, L501.6710, L100.9950, L500.4050, L3100.5020, L503.6550, L504.2610, L100.0100, L501.9940 ####[facility] [address] [place], [place], [phone] Globulin (S) [Mass/Vol] 2.4 g/dL Normal 2.2-4.2 [facility] Comment on above: Order Comment: N Performed By: #### L 101.9900, L503.6030, L501.6710, L100.9950, L500.4050, L3100.5020, L503.6550, L504.2610, L100.0100, L501.9940 ####[facility] [address] [place], [address] Glucose [Mass/Vol] 143 mg/dL High 74-106 [facility] Comment on above: Order Comment: N Result Comment: Fast ing Glucose result greater than or equal to 126 mg/dL suggests DIABETES MELLITUS per A.D.A. criteria. Performed By: #### L 101.9900, L503.6030, L501.6710, L100.9950, L500.4050, L3100.5020, L503.6550, L504.2610, L100.0100, L501.9940 ####[facility] [address] [place], [address] Potassium [Moles/Vol] 4.4 mmol/L Normal 3.5-5.1 [facility] Comment on above: Order Comment: N Performed By: #### L 101.9900, L503.6030, L501.6710, L100.9950, L500.4050, L3100.5020, L503.6550, L504.2610, L100.0100, L501.9940 ####[facility] [address] [place], [address] Sodium [Moles/Vol] 141 mmol/L Normal 136-145 [facility] Comment on above: Order Comment: N Performed By: #### L 101.9900, L503.6030, L501.6710, L100.9950, L500.4050, L3100.5020, L503.6550, L504.2610, L100.0100, L501.9940 ####[facility] [address] [place], [address] T PROT 5.6 g/dL Low 6.4-8.2 [facility] Comment on above: Order Comment: N Performed By: #### L 101.9900, L503.6030, L501.6710, L100.9950, L500.4050, L3100.5020, L503.6550, L504.2610, L100.0100, L501.9940 ####[facility] [address] [place], [address] Urea nitrogen [Mass/Vol] 38 mg/dL High 7-18 [facility] Comment on above: Order Comment: N Performed By: #### L 101.9900, L503.6030, L501.6710, L100.9950, L500.4050, L3100.5020, L503.6550, L504.2610, L100.0100, L501.9940 ####[facility] [address] [place], [address] Diagnostic total prostate sp ecific antigen (PSA) measurementOrdered By: Ean Bush on 06-17-2024 Prostate Specific Antigen Total 0.04 ng/mL 0.0-4.0 [facility] Comment on above: This test was perfor med using the TPSA assay method for theCellBiosciences chemistry system. Values obtained with differentassay methods cannot be used interchangably.When changing PSA assays in the course of monitoring apatient, additional sequential testing should be carriedout to confirm baseline values. Eosinophil percentageOrdered By: Ean Bush on 06-17-2024 Eosinophils/100 WBC (Bld) 1.0 % 0-5 [facility] Erythrocyte Sed Rateon 06-17 SED RATE 1 mm/hr Normal 0-20 [facility] Comment on above: Performed By: #### L 101.9900, L503.6030, L501.6710, L100.9950, L500.4050, L3100.5020, L503.6550, L504.2610, L100.0100, L501.9940 ####[facility] [address] [place], [address] Erythrocyte distribution wid th ratioOrdered By: Ean Bush on 06-17-2024 Erythrocyte distribution width (RBC) [Ratio] 18.6 % High 11.6-14.6 [facility] Erythrocyte distribution wid th standard deviationOrdered By: Ean Bush on 06-17-2024 Erythrocyte distribution width (RBC) [Entitic vol] 61.1 fL High 35.1-43.9 [facility] Erythrocyte sedimentation ra teOrdered By: Ean Bush on 06-17-2024 ESR (Bld) [Velocity] 1 mm/h 0-20 [facility] Estimated glomerular filtrat ion rate (GFR) AmericanOrdered By: Ean Bush on 06-17-2024 Estimated GFR (MDRD) Amer 41 mL/min Low >60 [facility] Comment on above: GFR Calc Estimation of creatinine benjy aranceOrdered By: Ean Bush on 06-17-2024 Estimated Creatinine Clearance Calc 26.26 ml/min [facility] Ferritinon 06-17-2024 Ferritin [Mass/Vol] 48 ng/mL Normal 26-388 [facility] Comment on above: Performed By: #### L 101.9900, L503.6030, L501.6710, L100.9950, L500.4050, L3100.5020, L503.6550, L504.2610, L100.0100, L501.9940 ####[facility] [address] [place], [address] Ferritin measurementOrdered By: Ean Bush on 06-17-2024 Ferritin [Mass/Vol] 48 ng/mL 26-388 [facility] Glomerular filtration rate ( GFR) estimationOrdered By: Ean Bush on 06-17-2024 Estimated GFR (MDRD) Non-Af Amer 34 mL/min Low >60 [facility] Comment on above: Non- GFR Calc Glucose measurementOrdered B y: Ean Bush on 06-17-2024 Glucose [Mass/Vol] 143 mg/dL High 74-106 [facility] Comment on above: Fasting Glucose resu lt greater than or equal to 126 mg/dL suggests DIABETES MELLITUS per A.D.A. criteria. Hematocrit Auto (Bld) [Volum e fraction]Ordered By: Ean Bush on 06-17-2024 Hematocrit (Bld) [Volume fraction] 32.6 % Low 40-54 [facility] Hemoglobin (Reticulocytes) [ Entitic mass]Ordered By: Ean Bush on 06-17-2024 Reticulocyte Hemoglobin Equivalent 30.3 pg 30-35 [facility] Hemoglobin measurementOrdere d By: [facility] on 06-17-2024 Hemoglobin (Bld) [Mass/Vol] 9.8 g/dL Low 13.0-16.5 [facility] Immature granulocytes/100 WB C Auto (Bld)Ordered By: [facility] on 06-17-2024 Immature granulocytes/100 WBC (Bld) 0.200 % 0.0-0.9 [facility] Comment on above: IG% - Immature Granu locytes (promyelocytes, myelocytes and metamyelocytes) > 1% indicates that a LEFT SHIFT is Present. Immature reticulocyte fracti onOrdered By: [facility] on 06-17-2024 Immature Reticulocyte Fraction 21.80 % High 3.00-15.90 [facility] Iron (Unsp spec) [Mass/Mass] Ordered By: [facility] on 06-17-2024 Iron [Mass/Vol] 34 ug/dL Low 65-175 [facility] Iron saturation [Mass fracti on]Ordered By: [facility] on 06-17-2024 Iron Saturation 11.4 % Low 15.0-55.0 [facility] Iron+Iron Binding Capacityon 06-17-2024 Iron [Mass/Vol] 34 ug/dL Low 65-175 [facility] Comment on above: Order Comment: N Performed By: #### L 101.9900, L503.6030, L501.6710, L100.9950, L500.4050, L3100.5020, L503.6550, L504.2610, L100.0100, L501.9940 ####[facility] [address] [place], [place], [phone] IRON SATURATION 11.4 Low 15.0-55.0 [facility] Comment on above: Order Comment: N Performed By: #### L 101.9900, L503.6030, L501.6710, L100.9950, L500.4050, L3100.5020, L503.6550, L504.2610, L100.0100, L501.9940 ####[facility] [address] [place], [place], [id number] TIBC 299 ug/dL Normal 250-450 [facility] Comment on above: Order Comment: N Performed By: #### L 101.9900, L503.6030, L501.6710, L100.9950, L500.4050, L3100.5020, L503.6550, L504.2610, L100.0100, L501.9940 ####[facility] [address] [place], [address] LDHon 06-17-2024 LDH 255 U/L High 87-241 [facility] Comment on above: Order Comment: N1 Performed By: #### L 101.9900, L503.6030, L501.6710, L100.9950, L500.4050, L3100.5020, L503.6550, L504.2610, L100.0100, L501.9940 ####[facility] [address] [facility] [place], [place], [address] Laboratory - Chemistry and C hemistry - challengeOrdered By: Ean Bush on 06-17-2024 AST [Catalytic activity/Vol] 22 U/L 15-37 [facility] Laboratory - Hematology and Cell countsOrdered By: Ean Bush on 06-17-2024 Anisocytosis Ql (Bld) 1+ [facility] Lactate dehydrogenase (LDH) measurementOrdered By: Ean Bush on 06-17-2024 LDH [Catalytic activity/Vol] 255 U/L High 87-241 [facility] Lymphocytes Auto (Unsp spec) [#/Vol]Ordered By: Ean Bush on 06-17-2024 Lymphocytes (Bld) [#/Vol] 54.33 10*3/uL High 0.83-4.51 [facility] Lymphocytes/100 WBC Auto (Un sp spec)Ordered By: Ean Bush on 06-17-2024 Lymphocytes/100 WBC (Bld) 86.1 % High 19-41 [facility] MCV (mean corpuscular volume ) determinationOrdered By: Ean Bush on 06-17-2024 MCV (RBC) [Entitic vol] 90.1 fL 80-94 [facility] Mean corpuscular hemoglobin (MCH) determinationOrdered By: Ean Bush on 06-17-2024 MCH (RBC) [Entitic mass] 27.1 pg 27.0-32.0 [facility] Mean corpuscular hemoglobin concentration (MCHC) determinationOrdered By: [facility] on 06-17-2024 MCHC (RBC) [Mass/Vol] 30.1 g/dL Low 32-36 [facility] Mean platelet volume determi nationOrdered By: [facility] on 06-17-2024 Platelet mean volume (Bld) [Entitic vol] 9.6 fL 6.2-12.0 [facility] Monocyte percentageOrdered B y: Ean [facility] on 06-17-20[facility] Monocytes/100 WBC (Bld) 4.3 % 0-10 [facility] Neutrophil percentageOrdered By: [facility] on 06-17-2024 Neutrophils/100 WBC (Bld) 8.1 % Low 47-70 [facility] Nucleated red blood cell per centageOrdered By: [facility] on 06-17-2024 Nucleated RBC/100 WBC (Bld) [Ratio] 0 % 0-5 [facility] PSA,Total- Diagnosticon 02-0 PSA, DIAGNOSTIC 0.04 ng/mL Normal 0.0-4.0 [facility] Comment on above: Result Comment: This test was performed using the TPSA assay method for the [employer] chemistry system. Values obtained with different assay methods cannot be used interchangably. When changing PSA assays in the course of monitoring a patient, additional sequential testing should be carried out to confirm baseline values. Performed By: #### L 101.9900, L503.6030, L501.6710, L100.9950, L500.4050, L3100.5020, L503.6550, L504.2610, L100.0100, L501.9940 ####[facility] [address] [place], [address] Pathologist review Felice (Unsp spec) [Interp]Ordered By: Ean Bush on 02-04-2025 Differential Pathologist's Review Reviewed [facility] Comment on above: Previous reported re sult: Ayesha adamson Edited by: LOIS on 06/19/24:0912Absolute lymphocytosis suggestive of low grade lympho-proliferative disorder.Normocytic anemia.Clinical correlation is necessary. Roby Michelle M.D. 06/19/24 AMENDED REPORT 06/19/24 0912 PATH REV previously reported as: Ayesha adamson Platelet countOrdered By: Sarah Bush on 06-17-2024 Platelets (Bld) [#/Vol] 167 10*3/uL 150-450 [facility] Platelets LM Ql (Bld)Ordered By: Ean Bush on 06-17-2024 Platelet Estimate ADEQUATE ADEQ [facility] Polychromasia LM Ql (Bld)Ord ered By: Ean Bush on 06-17-2024 Polychromasia 1+ [facility] Potassium measurementOrdered By: Ean Bush on 06-17-2024 Potassium [Moles/Vol] 4.4 mmol/L 3.5-5.1 [facility] RBC Auto (Bld) [#/Vol]Ordere d By: Ean Bush on 06-17-2024 RBC (Bld) [#/Vol] 3.62 10*6/uL Low 4.6-6.2 [facility] Retic Panelon 06-17-2024 IM RET FRACTION 21.80 High 3.00-15.90 [facility] Comment on above: Performed By: #### L 101.9900, L503.6030, L501.6710, L100.9950, L500.4050, L3100.5020, L503.6550, L504.2610, L100.0100, L501.9940 ####[facility] [address] [place], [place], [id number] RET-HE 30.3 pg Normal 30-35 [facility] Comment on above: Performed By: #### L 101.9900, L503.6030, L501.6710, L100.9950, L500.4050, L3100.5020, L503.6550, L504.2610, L100.0100, L501.9940 ####[facility] [address] [facility] [place], [address] Retic Count 1.65 High 0.5-1.5 [facility] Comment on above: Performed By: #### L 101.9900, L503.6030, L501.6710, L100.9950, L500.4050, L3100.5020, L503.6550, L504.2610, L100.0100, L501.9940 ####[facility] [address] [facility] [place], [address] Reticulocytes Auto (Bld) [#/ Vol]Ordered By: Ean Bush on 06-17-2024 Reticulocyte Count 1.65 % High 0.5-1.5 [facility] Serum anion gap measurementO rdered By: Ean Bush on 06-17-2024 Anion gap [Moles/Vol] 6 mmol/L 5-15 [facility] Serum globulin measurementOr dered By: Ean Bush on 06-17-2024 Globulin (S) [Mass/Vol] 2.4 g/dL 2.2-4.2 [facility] Serum or plasma alanine bernabe otransferase (ALT) measurementOrdered By: Ean Bush on 06-17-2024 ALT [Catalytic activity/Vol] 16 U/L 16-61 [facility] Serum or plasma albumin jamila urement (mass/volume)Ordered By: Ean Bush on 06-17-2024 Albumin [Mass/Vol] 3.2 g/dL 3.2-5.0 [facility] Serum or plasma alkaline onelia sphatase measurementOrdered By: Ean Bush on 06-17-2024 ALP [Catalytic activity/Vol] 79 U/L 45-117 [facility] Serum or plasma calcium jamila urement (mass/volume)Ordered By: Ean Bush on 06-17-2024 Calcium [Mass/Vol] 8.8 mg/dL 8.5-10.1 [facility] Serum or plasma creatinine m easurement (mass/volume)Ordered By: Ean Bush on 06-17-2024 Creatinine [Mass/Vol] 1.99 mg/dL High 0.70-1.30 [facility] Comment on above: The validity of the calculated GFR & GFRAA in patients over 70 years has not been determined. Clinical correlation is essential. Serum or plasma urea nitroge n measurement (mass/volume)Ordered By: Ean Bush on 06-17-2024 Urea nitrogen [Mass/Vol] 38 mg/dL High 7-18 [facility] Smudge cells LM Ql (Bld)Orde red By: Ean Bush on 06-17-2024 Smudge Cells 3+ [facility] Sodium levelOrdered By: Collin Bush on 06-17-2024 Sodium [Moles/Vol] 141 mmol/L 136-145 [facility] TIBCOrdered By: Ean Bush on 06-17-2024 Total Iron Binding Capacity 299 ug/dL 250-450 [facility] Total proteinOrdered By: Marc Bush on 06-17-2024 Protein [Mass/Vol] 5.6 g/dL Low 6.4-8.2 [facility] White blood cell (WBC) count Ordered By: Ean Bush on 06-17-2024 WBC (Bld) [#/Vol] 63.1 10*3/uL High 4.4-11.0 [facility] Comment on above: CRITICAL VALUE PRAKASH D TO DOROTHY GAGNON06/17/24 1027 [place].RESULTS READ BACK BY SAME. Diagnostic total prostate sp ecific antigen (PSA) measurementOrdered By: Janine Payne on 04-07-2024 Prostate Specific Antigen Total 0.03 ng/mL 0.0-4.0 [facility] Comment on above: This test was perfor med using the TPSA assay method for the[employer] chemistry system. Values obtained with differentassay methods cannot be used interchangably.When changing PSA assays in the course of monitoring apatient, additional sequential testing should be carriedout to confirm baseline values. PSA,Total- Diagnosticon 03-15 PSA, DIAGNOSTIC 0.03 ng/mL Normal 0.0-4.0 [facility] Comment on above: Result Comment: This test was performed using the TPSA assay method for the [employer] chemistry system. Values obtained with different assay methods cannot be used interchangably. When changing PSA assays in the course of monitoring a patient, additional sequential testing should be carried out to confirm baseline values. Performed By: #### L 501.9940 #### [facility] [address] [place], [address] Cardiology Visit Reporton Cardiology Visit Report [facility] [address] [place] [address] OFFICE VISIT Date of Service: 02/26/24 MR#: [id number] Acct: [id number] Name: JAIME ANN Rep #: [id number] : 1940 Provider: RENETTA burgess Age/Sex: 83/M Location: [facility] [place] Status: Signed [facility] History of Present Illness Details: He has a history of heart failure with reduced ejection fraction at 30% range he also carries a history of iron deficiency anemia chronic lymphocytic leukemia with a white count in the 45-50,000 range he has chronic kidney disease with a GFR of around 30-35. He also has a history of MATTRESS STRIPPER-D implant. He denies chest, arm, jaw, or neck discomfort. He denies palpitations. He denies bilateral lower extremity edema. He denies claudication. He denies shortness of breath with activity, shortness of breath at rest, orthopnea, or PND. He denies chronic cough. He denies significant, sudden weight gain. He states intermittent dizziness. He denies lightheadedness, near-syncope, or syncope. He denies blood in urine, blood in stool, or epistaxis. He denies fever with chills. He denies myalgia. He denies fatigue. His exercise level has remained stable. Intake Vital Signs 11/23/23 11:36 02/26/24 11:23 02/26/24 11:27 Height 5 ft 10 in 5 ft 10 in 5 ft 10 in Weight: 165 lb BMI 23.6 BP 157/76 H Blood Pressure Location Lt brachial Position Sitting Respiration 18 Pulse 71 Pulse Source Monitor Pulse Oximetry (%) 97 Intake Visit Reasons: 3 M [employer] Person Required: No Is patient in pain?: No Allergies lisinopril Adverse Reaction (Unknown, Verified 02/26/24 11:23) cough Medications ???Medication ???Instructions ???Recorded ???Confirmed ???Type cholecalciferol (vitamin D3) 25 50 mcg PO DAILY 08/09/16 02/26/24 History mcg (1,000 unit) capsule (Vitamin D3) carvedilol 25 mg tablet 25 mg PO BID 08/24/16 02/26/24 History sacubitril 49 mg-valsartan 51 mg 1 tab PO BID 08/24/22 02/26/24 History tablet (Entresto) zinc acetate 50 mg (zinc) capsule 50 mg PO DAILY 08/24/22 02/26/24 History atorvastatin 10 mg tablet 10 mg PO DAILY 03/04/23 02/26/24 History polysaccharide iron complex 150 mg 150 mg PO DAILY #30 caps 03/20/23 02/26/24 Rx iron capsule (Ferrex) potassium chloride 10 mEq 10 meq PO DAILY 08/07/23 02/26/24 History capsule,extended release bisacodyl 10 mg rectal suppository 10 mg MD DAILY #0 ea 08/20/23 02/26/24 Rx gabapentin 100 mg capsule 100 mg PO QHS #0 caps 08/20/23 02/26/24 Rx omeprazole 20 mg capsule,delayed 20 mg PO QDAY 11/23/23 02/26/24 History release furosemide 40 mg tablet 40 mg PO Q OTHER DAY dose 01/30/24 02/26/24 Rx decreased by Kenn HOGAN #90 tabs Have you fallen in the past year?: No PFSH Medical History Chronic HFrEF (heart failure with reduced ejection fraction) Cancer ICD (implantable cardioverter-defibrillat or) in place Myocardial infarct Personal history of chronic lymphocytic leukemia HFrEF (heart failure with reduced ejection fraction) CKD (chronic kidney disease), stage III Back pain due to injury High cholesterol Orthostatic hypotension Restless leg syndrome Iron deficiency anemia LBBB (left bundle branch block) Subdural hematoma Peripheral neuropathy Non-ischemic cardiomyopathy Essential hypertension Pacemaker Ventricular tachycardia CLL (chronic lymphocytic leukemia) Prostate cancer Surgical History S/P TURP Status post laser lithotripsy of ureteral calculus History of left heart catheterization (09/22/15) Splenic artery aneurysm Cardiac 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 therapy defibrillator (MATTRESS STRIPPER-D) in place ( 09/2015) History of colonoscopy History of arthroplasty of finger of left hand Family History Mother CVA (cerebral vascular accident) Hypertension Diabetes Father Ischemic heart disease Diabetes Social History household members: spouse Smoking Status: Never smoker alcohol intake: never substance use type: does not use caffeine: Yes Type: coffee Number of servings: 3 ROS Const Const: Negative for fatigue, weakness, body ache, fever(s) or chills ENT ENT: Positive for dizziness; Negative for Nosebleed/epistaxis Cardio Chest Pain: No Palpitations: No Edema: None Muscle aches with walking: None Resp Respiratory: Negative for SOB with activity, SOB at rest, SOB orthopnea SOB lying down, Cough or paroxysmal nocturnal dyspnea GI GI: Negative nausea, vomiting blood/hematemesis, bright, red blood in stools or black,tarry stools : Negative for hematuria or frequen (more content not included)... Normal [facility] Basic Metabolic Profile (BMP )on 01-17-2024 BUN/CRE 24.5 RATIO High 10-20 [facility] Comment on above: Performed By: #### L 500.2500 ####[facility] [address] [facility] [place], [address] CA,Total 9.1 mg/dL Normal 8.5-10.1 [facility] Comment on above: Performed By: #### L 500.2500 ####[facility] [address] [place], [address] Chloride [Moles/Vol] 111 mmol/L High 98-107 [facility] Comment on above: Performed By: #### L 500.2500 ####[facility] [address] [place], [address] CO2 [Moles/Vol] 26.0 mmol/L Normal 21.0-32.0 [facility] Comment on above: Performed By: #### L 500.2500 ####[facility] [address] [place], [address] Creatinine [Mass/Vol] 1.92 mg/dL High 0.70-1.30 [facility] Comment on above: Result Comment: The validity of the calculated GFR GFRAA in patients over 70 years has not been determined. Clinical correlation is essential. Performed By: #### L 500.2500 ####[facility] [address] [place], [address] EST GFR - AA 43 mL/min Low >60 [facility] Comment on above: Result Comment: Afri can Thai GFR Calc Performed By: #### L 500.2500 ####[facility] [address] [place], [address] GAP 6 Normal 5-15 [facility] Comment on above: Performed By: #### L 500.2500 ####[facility] [address] [place], [address] GFR/1.73 sq M.predicted among non-blacks MDRD (S/P/Bld) [Vol rate/Area] 36 mL/min/{1.73_m2} Low >60 [facility] Comment on above: Result Comment: Non- GFR Calc Performed By: #### L 500.2500 ####[facility] [address] [place], [address] Glucose [Mass/Vol] 98 mg/dL Normal 74-106 [facility] Comment on above: Performed By: #### L 500.2500 ####[facility] [address] [place], [address] Potassium [Moles/Vol] 4.2 mmol/L Normal 3.5-5.1 [facility] Comment on above: Performed By: #### L 500.2500 ####[facility] [address] [place], [address] Sodium [Moles/Vol] 143 mmol/L Normal 136-145 [facility] Comment on above: Performed By: #### L 500.2500 ####[facility] [address] [place], [address] Urea nitrogen [Mass/Vol] 47 mg/dL High 7-18 [facility] Comment on above: Performed By: #### L 500.2500 ####[facility] [address] [place], [address] No Panel Informationon 01-16 Culture Urine 50,000 - 100,000 cfu /ml Mixed growth consistent with normal urogenital javier. [facility] Work Phone: Basic Metabolic Profile (BMP )on 12-07-2023 BUN/CRE 18.0 RATIO Normal 10-20 [facility] Comment on above: Performed By: #### L 500.2500 #### [facility] [address] [place], [address] CA,Total 8.9 mg/dL Normal 8.5-10.1 [facility] Comment on above: Performed By: #### L 500.2500 #### [facility] [address] [place], [address] Chloride [Moles/Vol] 111 mmol/L High 98-107 [facility] Comment on above: Performed By: #### L 500.2500 #### [facility] [address] [place], [address] CO2 [Moles/Vol] 27.0 mmol/L Normal 21.0-32.0 [facility] Comment on above: Performed By: #### L 500.2500 #### [facility] [address] [place], [address] Creatinine [Mass/Vol] 2.17 mg/dL High 0.70-1.30 [facility] Comment on above: Result Comment: The validity of the calculated GFR GFRAA in patients over 70 years has not been determined. Clinical correlation is essential. Performed By: #### L 500.2500 #### [facility] [address] [place], [address] EST GFR - AA 37 mL/min Low >60 [facility] Comment on above: Result Comment: Afri can Thai GFR Calc Performed By: #### L 500.2500 #### [facility] [address] [place], [address] GAP 5 Normal 5-15 [facility] Comment on above: Performed By: #### L 500.2500 #### [facility] [address] [place], [address] GFR/1.73 sq M.predicted among non-blacks MDRD (S/P/Bld) [Vol rate/Area] 31 mL/min/{1.73_m2} Low >60 [facility] Comment on above: Result Comment: Non- GFR Calc Performed By: #### L 500.2500 #### [facility] [address] [place], [address] Glucose [Mass/Vol] 153 mg/dL High 74-106 [facility] Comment on above: Result Comment: Fast ing Glucose result greater than or equal to 126 mg/dL suggests DIABETES MELLITUS per A.D.A. criteria. Performed By: #### L 500.2500 #### [facility] [address] [place], [address] Potassium [Moles/Vol] 4.3 mmol/L Normal 3.5-5.1 [facility] Comment on above: Performed By: #### L 500.2500 #### [facility] [address] [place], [address] Sodium [Moles/Vol] 143 mmol/L Normal 136-145 [facility] Comment on above: Performed By: #### L 500.2500 #### [facility] [address] [place], [address] Urea nitrogen [Mass/Vol] 39 mg/dL High 7-18 [facility] Comment on above: Performed By: #### L 500.2500 #### [facility] [address] [place], [address] No Panel Informationon 11-26 Culture Urine 50,000 - 100,000 cfu /ml Mixed growth consistent with normal urogenital javier. [facility] Work Phone: Basic Metabolic Profile (BMP )on 11-23-2023 BUN/CRE 23.5 RATIO High 10-20 [facility] Comment on above: Performed By: #### L 500.2500 #### [facility] [address] [place], [address] CA,Total 8.9 mg/dL Normal 8.5-10.1 [facility] Comment on above: Performed By: #### L 500.2500 #### [facility] [address] [place], [address] Chloride [Moles/Vol] 109 mmol/L High 98-107 [facility] Comment on above: Performed By: #### L 500.2500 #### [facility] [address] [place], [address] CO2 [Moles/Vol] 26.0 mmol/L Normal 21.0-32.0 [facility] Comment on above: Performed By: #### L 500.2500 #### [facility] [address] [place], [address] Creatinine [Mass/Vol] 2.51 mg/dL High 0.70-1.30 [facility] Comment on above: Result Comment: The validity of the calculated GFR GFRAA in patients over 70 years has not been determined. Clinical correlation is essential. Performed By: #### L 500.2500 #### [facility] [address] [place], [address] EST GFR - AA 32 mL/min Low >60 [facility] Comment on above: Result Comment: Afri can Thai GFR Calc Performed By: #### L 500.2500 #### [facility] [address] [place], [address] GAP 5 Normal 5-15 [facility] Comment on above: Performed By: #### L 500.2500 #### [facility] [address] [place], [address] GFR/1.73 sq M.predicted among non-blacks MDRD (S/P/Bld) [Vol rate/Area] 26 mL/min/{1.73_m2} Low >60 [facility] Comment on above: Result Comment: Non- GFR Calc Performed By: #### L 500.2500 #### [facility] [address] [place], [address] Glucose [Mass/Vol] 124 mg/dL High 74-106 [facility] Comment on above: Result Comment: Fast ing Glucose result from 100 to 125 mg/dL suggests IMPAIRED HOMEOSTASIS per A.D.A. criteria. Performed By: #### L 500.2500 #### [facility] [address] [place], [address] Potassium [Moles/Vol] 4.6 mmol/L Normal 3.5-5.1 [facility] Comment on above: Performed By: #### L 500.2500 #### [facility] [address] [place], [address] Sodium [Moles/Vol] 140 mmol/L Normal 136-145 [facility] Comment on above: Performed By: #### L 500.2500 #### [facility] [address] [place], [address] Urea nitrogen [Mass/Vol] 59 mg/dL High 7-18 [facility] Comment on above: Performed By: #### L 500.2500 #### [facility] [address] [place], [address] Cardiology Visit Reporton Cardiology Visit Report [facility] [address] [place] [address] OFFICE VISIT Date of Service: 11/23/23 MR#: [id number] Acct: [id number] Name: JAIME ANN Rep #: [id number] : 1940 Provider: Dr. Loc jensen MD Age/Sex: 83/M Location: [facility] [place] Status: Signed HPI HPI History of Present Illness Details: Patient comes in today for 3-month follow-up visit. He has a history of heart failure with reduced ejection fraction at 30% range he also carries a history of iron deficiency anemia chronic lymphocytic leukemia with a white count in the 45-50,000 range he has chronic kidney disease with a GFR of around 30-35. He also has a history of MATTRESS STRIPPER-D implant. Historically he has been 98% BiV paced. His device is monitored through the [facility]. He just moved yesterday into a condo and I asked him to make sure he checks with the device clinic next week to be certain that his device is communicating appropriately. Patient reports that upon change of position he does get some minimal lightheadedness he has not had any falls when he changes position. He did have a mechanical fall where he missed stepped last week on a step and fell down he was not significantly injured and he did skin the side of his face. The patient reports that his lower extremity edema has been controlled he is currently on furosemide 40 mg daily we had increased that from every other day to daily at his last office visit 3 months ago. Intake Vital Signs 09/04/23 13:39 11/23/23 11:36 Height 5 ft 10 in 5 ft 10 in Weight: 165 lb BMI 23.6 BP 93/44 L Blood Pressure Location Lt brachial Position Sitting Respiration 18 Pulse 78 Pulse Source Monitor Pulse Oximetry (%) 94 Oxygen Delivery Method room air Intake Visit Reasons: 3 M [employer] Person Required: No Accompanied by: Self Is patient in pain?: No Allergies lisinopril Adverse Reaction (Unknown, Verified 11/23/23 11:39) cough Medications ???Medication ???Instructions ???Recorded ???Confirmed ???Type cholecalciferol (vitamin D3) 25 50 mcg PO DAILY 08/09/16 11/23/23 History mcg (1,000 unit) capsule (Vitamin D3) carvedilol 25 mg tablet 25 mg PO BID 08/24/16 11/23/23 History sacubitril 49 mg-valsartan 51 mg 1 tab PO BID 08/24/22 11/23/23 History tablet (Entresto) zinc acetate 50 mg (zinc) capsule 50 mg PO DAILY 08/24/22 11/23/23 History atorvastatin 10 mg tablet 10 mg PO DAILY 03/04/23 11/23/23 History polysaccharide iron complex 150 mg 150 mg PO DAILY #30 caps 03/20/23 11/23/23 Rx iron capsule (Ferrex) potassium chloride 10 mEq 10 meq PO DAILY 08/07/23 11/23/23 History capsule,extended release bisacodyl 10 mg rectal suppository 10 mg MD DAILY #0 ea 08/20/23 11/23/23 Rx gabapentin 100 mg capsule 100 mg PO QHS #0 caps 08/20/23 11/23/23 Rx furosemide 40 mg tablet 40 mg PO DAILY #90 tabs 10/15/23 11/23/23 Rx omeprazole 20 mg capsule,delayed 20 mg PO QDAY 11/23/23 11/23/23 History release Ejection fraction %: 30 Have you fallen in the past year?: Yes (Patient had a mechanical fall) [facility] Medical History Chronic HFrEF (heart failure with reduced ejection fraction) Cancer ICD (implantable cardioverter-defibrillat or) in place Myocardial infarct Personal history of chronic lymphocytic leukemia HFrEF (heart failure with reduced ejection fraction) CKD (chronic kidney disease), stage III Back pain due to injury High cholesterol Orthostatic hypotension Restless leg syndrome Iron deficiency anemia LBBB (left bundle branch block) Subdural hematoma Peripheral neuropathy Non-ischemic cardiomyopathy Essential hypertension Pacemaker Ventricular tachycardia CLL (chronic lymphocytic leukemia) Prostate cancer Surgical History S/P TURP Status post laser lithotripsy of ureteral calculus History of left heart catheterization (09/22/15) Splenic artery aneurysm Cardiac 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 therapy defibrillator (MATTRESS STRIPPER-D) in place ( 09/2015) History of colonoscopy History of arthroplasty of finger of left hand Family History Mother CVA (cerebral vascular accident) Hypertension Diabetes Father Ischemic heart disease Diabetes Social History household members: spouse Smoking Status: Never smoker alcohol intake: never substance use type: does not use caffeine: Yes Type: coffee Number of servings: 3 ROS Const Const: Positive for fatigue; Negative for weakness ENT ENT: Positive for dizziness (upon standing up); Negative for balance problems Cardio Chest Pain: No Palpitati (more content not included)... Normal [facility] Urine Cultureon 11-11-2023 [facility] Organism is too fastidious for routine susceptibility studies. Aerococcus urinae [place] Count 11,000-25,000 Normal [facility] Comment on above: Performed By: #### M 100.2200 ####[facility] [address] [place], [address] .CBC Path Reviewon CBC Path Review Marked atypical abso lute lymphocytosis noted, consistent with patient's history of chronic lymphocytic leukemia. Moderate anemia also noted. Normal [facility] ([place]) Comment on above: Result Comment: Elec tronically signed by: ALFONSO MCNEIL 10.03.2023 11:32 EDT Performed By: #### C BC, GFR, DIFF, URIC, MORPH, BMP, VIDH #### [address] [address] #### PTH #### [facility] [address] [place] [address] .Auto Diffon 10-02-2023 Basophil, Absolute 0.1 10 3/mcL Normal 0.0-0.2 [facility] ([place]) Comment on above: Performed By: #### C BC, GFR, DIFF, URIC, MORPH, BMP, VIDH #### [address] [address] #### PTH #### [address] [address] Basophils/100 WBC (Bld) 0.2 % Normal 0.0-2.5 [facility] ([place]) Comment on above: Performed By: #### C BC, GFR, DIFF, URIC, MORPH, BMP, VIDH #### [address] [address] #### PTH #### [address] [address] Eosinophil, Absolute 0.8 10 3/mcL High 0.0-0.4 [facility] ([place]) Comment on above: Performed By: #### C BC, GFR, DIFF, URIC, MORPH, BMP, VIDH #### [address] [address] #### PTH #### [address] [address] Eosinophils/100 WBC (Bld) 1.4 % Normal 0.0-7.0 [facility] ([place]) Comment on above: Performed By: #### C BC, GFR, DIFF, URIC, MORPH, BMP, VIDH #### [place] [address] #### PTH #### [address] [address] Lymphocyte, Absolute 49.7 10 3/mcL High 0.8-3.9 [facility] ([place]) Comment on above: Performed By: #### C BC, GFR, DIFF, URIC, MORPH, BMP, VIDH #### [place] [address] #### PTH #### [address] [address] Lymphocytes/100 WBC (Bld) 82.5 % High 10.0-50.0 [facility] ([place]) Comment on above: Performed By: #### C BC, GFR, DIFF, URIC, MORPH, BMP, VIDH #### [address] [address] #### PTH #### [address] [address] Monocyte, Absolute 1.3 10 3/mcL High 0.2-1.0 [facility] ([place]) Comment on above: Performed By: #### C BC, GFR, DIFF, URIC, MORPH, BMP, VIDH #### [address] [address] #### PTH #### [address] [address] Monocytes/100 WBC (Bld) 2.1 % Normal 1.7-13.0 [facility] ([place]) Comment on above: Performed By: #### C BC, GFR, DIFF, URIC, MORPH, BMP, VIDH #### [address] [address] #### PTH #### [address] [address] Neutrophils/100 WBC (Bld) 13.8 % Low 37.0-80.0 [facility] ([place]) Comment on above: Performed By: #### C BC, GFR, DIFF, URIC, MORPH, BMP, VIDH #### [address] [address] #### PTH #### [address] [address] .GFRon 10-02-2023 GFR 26 ml/min/1.73sqm Normal [facility] ([place]) Comment on above: Result Comment: GFR Population mean for , [...] 15 mL/min/1.73 square meters Performed By: #### C BC, GFR, DIFF, URIC, MORPH, BMP, VIDH #### [address] [address] #### PTH #### [address] [address] GFR Non- 22 ml/min/1.73sqm Normal [facility] ([place]) Comment on above: Result Comment: GFR Population mean for , [...] 15 mL/min/1.73 square meters Performed By: #### C BC, GFR, DIFF, URIC, MORPH, BMP, VIDH #### [place] [address] #### PTH #### [place] [address] .Morphon 10-02-2023 Platelet Estimate Normal Normal [facility] ([place]) Comment on above: Performed By: #### C BC, GFR, DIFF, URIC, MORPH, BMP, VIDH #### [place] [address] #### PTH #### [address] [address] Smudge Cells 2+ Normal [facility] ([place]) Comment on above: Performed By: #### C BC, GFR, DIFF, URIC, MORPH, BMP, VIDH #### [place] [address] #### PTH #### [place] [address] .NEUABSon 10-02-2023 Neutrophil, Absolute 8.3 10 3/mcL High 2.9-6.2 [facility] ([place]) Comment on above: Performed By: #### C BC, GFR, DIFF, URIC, MORPH, BMP, VIDH #### [address] [address] #### PTH #### [address] [address] BMPon 10-02-2023 BUN/Creatinine Ratio 19 ratio Normal 7-27 [facility] ([place]) Comment on above: Performed By: #### C BC, GFR, DIFF, URIC, MORPH, BMP, VIDH #### [address] [address] #### PTH #### [address] [address] Calcium [Mass/Vol] 9.2 mg/dL Normal 8.4-10.2 [facility] ([place]) Comment on above: Performed By: #### C BC, GFR, DIFF, URIC, MORPH, BMP, VIDH #### [address] [address] #### PTH #### [address] [address] Chloride [Moles/Vol] 106 mmol/L Normal 98-107 [facility] ([place]) Comment on above: Performed By: #### C BC, GFR, DIFF, URIC, MORPH, BMP, VIDH #### [address] [address] #### PTH #### [address] [address] CO2 [Moles/Vol] 27 mmol/L Normal 23-31 [facility] ([place]) Comment on above: Performed By: #### C BC, GFR, DIFF, URIC, MORPH, BMP, VIDH #### [address] [address] #### PTH #### [address] [address] Creatinine [Mass/Vol] 2.81 mg/dL High 0.70-1.30 [facility] ([place]) Comment on above: Performed By: #### C BC, GFR, DIFF, URIC, MORPH, BMP, VIDH #### [address] [address] #### PTH #### [address] [address] Electrolyte Balance 11.0 mEq/L Normal 4.0-15.0 [facility] ([place]) Comment on above: Performed By: #### C BC, GFR, DIFF, URIC, MORPH, BMP, VIDH #### [place] [address] #### PTH #### [address] [address] Glucose [Mass/Vol] 150 mg/dL High 83-110 [facility] ([place]) Comment on above: Performed By: #### C BC, GFR, DIFF, URIC, MORPH, BMP, VIDH #### [place] [address] #### PTH #### [address] [address] Potassium [Moles/Vol] 5.1 mmol/L Normal 3.5-5.1 [facility] ([place]) Comment on above: Performed By: #### C BC, GFR, DIFF, URIC, MORPH, BMP, VIDH #### [place] [address] #### PTH #### [address] [address] Sodium [Moles/Vol] 144 mmol/L Normal 136-145 [facility] ([place]) Comment on above: Performed By: #### C BC, GFR, DIFF, URIC, MORPH, BMP, VIDH #### [place] [address] #### PTH #### [address] [address] Urea nitrogen [Mass/Vol] 54 mg/dL High 7-18 [facility] ([place]) Comment on above: Performed By: #### C BC, GFR, DIFF, URIC, MORPH, BMP, VIDH #### [place] [address] #### PTH #### [place] [address] CBCon 10-02-2023 Erythrocyte distribution width (RBC) [Ratio] 17.6 % High 11.5-14.5 [facility] ([place]) Comment on above: Performed By: #### C BC, GFR, DIFF, URIC, MORPH, BMP, VIDH #### [place] [address] #### PTH #### [place] [address] Hematocrit (Bld) [Volume fraction] 28.2 % Low 42.0-52.0 [facility] ([place]) Comment on above: Performed By: #### C BC, GFR, DIFF, URIC, MORPH, BMP, VIDH #### [place] [address] #### PTH #### [place] [address] Hgb 9.4 G/dL Low 14.0-18.0 [facility] ([place]) Comment on above: Performed By: #### C BC, GFR, DIFF, URIC, MORPH, BMP, VIDH #### [place] [address] #### PTH #### [place] [address] MCH (RBC) [Entitic mass] 27.5 pg Normal 27.0-31.2 [facility] ([place]) Comment on above: Performed By: #### C BC, GFR, DIFF, URIC, MORPH, BMP, VIDH #### [place] [address] #### PTH #### [place] [address] MCHC 33.4 G/dL Normal 31.8-35.4 [facility] ([place]) Comment on above: Performed By: #### C BC, GFR, DIFF, URIC, MORPH, BMP, VIDH #### [place] [address] #### PTH #### [place] [address] MCV (RBC) [Entitic vol] 82.2 fL Normal 80.0-94.0 [facility] ([place]) Comment on above: Performed By: #### C BC, GFR, DIFF, URIC, MORPH, BMP, VIDH #### [place] [address] #### PTH #### [place] [address] Platelet 380 10 3/mcL Normal 130-400 [facility] ([place]) Comment on above: Performed By: #### C BC, GFR, DIFF, URIC, MORPH, BMP, VIDH #### [place] [address] #### PTH #### [place] [address] Platelet mean volume (Bld) [Entitic vol] 7.8 fL Normal 7.4-10.4 [facility] ([place]) Comment on above: Performed By: #### C BC, GFR, DIFF, URIC, MORPH, BMP, VIDH #### [place] [address] #### PTH #### [place] [address] RBC 3.42 10 6/mcL Low 4.04-6.13 [facility] ([place] Comment on above: Performed By: #### C BC, GFR, DIFF, URIC, MORPH, BMP, VIDH #### [place] [address] #### PTH #### [place] [address] WBC 60.2 10 3/mcL Critically abnormal 4.6-10.8 [facility] ([place]) Comment on above: Performed By: #### C BC, GFR, DIFF, URIC, MORPH, BMP, VIDH #### [place] [address] #### PTH #### [facility] [address] [place] [address] CRURon 10-02-2023 U Creatinine 47.3 mg/dL Normal 39.0-259.0 [facility] ([place]) Comment on above: Performed By: #### P AVIS BROWNUR #### [place] [id number] [place], [place] [address] LABORATORYOrdered By: SYSTEM SYSTEM on 10-02-2023 Creatinine (U) [Mass/Vol] 47.3 mg/dL Normal 39.0 - 259.0 mg/dL AO ADM SS Protein (U) [Mass/Vol] 218 mg/dL High 0 - 11 mg/dL AO ADM SS 25-hydroxyvitamin D3 [Mass/Vol] 91.0 ng/mL Invalid Interpretation Code AO ADM SS Comment on above: Interpretive Data: I nterpretive Values Based on Total 25(OH) Vitamin D: Deficient <20 ng/mL Insufficient 20 - <30 ng/mL Sufficient 30-100 ng/mL Basophil, Absolute 0.1 103/mcL Normal 0.0 - 0.2 10^3/mcL AO Workflow SS Basophils/100 WBC (Bld) 0.2 % Normal 0.0 - 2.5 % AO Workflow SS Calcium [Mass/Vol] 9.2 mg/dL Normal 8.4 - 10. 2 mg/dL AO ADM SS Chloride [Moles/Vol] 106 mmol/L Normal 98 - 10 7 mmol/L AO ADM SS CO2 [Moles/Vol] 27 mmol/L Normal 23 - 31 mmol/L AO ADM SS Creatinine [Mass/Vol] 2.81 mg/dL High 0.70 - 1.30 mg/dL AO ADM SS Electrolyte Balance 11.0 mEq/L Normal 4.0 - 15 .0 mEq/L AO ADM SS Eosinophil, Absolute 0.8 103/mcL High 0.0 - 0 .4 10^3/mcL AO Workflow SS Eosinophils/100 WBC (Bld) 1.4 % Normal 0.0 - 7.0 % AO Workflow SS Erythrocyte distribution width (RBC) [Ratio] 17.6 % High 11.5 - 14.5 % AO Workflow SS GFR/1.73 sq M.predicted among blacks MDRD (S/P/Bld) [Vol rate/Area] 26 ml/min/1.73sqm Invalid Interpretation Code AO Chemistry S Comment on above: Interpretive Data: GFR Population mean for , Non- Americans Ages 20-29 = 116 mL/min/1.73 sq.m. Ages 30-39 = 107 mL/min/1.73 sq.m. Ages 40-49 = 99 mL/min/1.73 sq.m. Ages 50-59 = 93 mL/min/1.73 sq.m. Ages 60-69 = 85 mL/min/1.73 sq.m. Ages 70+ = 75 mL/min/1.73 sq.m. Chronic Kidney Disease: Less than 60 mL/min/1.73 square meters End Stage Renal Disease: Less than 15 mL/min/1.73 square meters GFR/1.73 sq M.predicted among non-blacks MDRD (S/P/Bld) [Vol rate/Area] 22 ml/min/1.73sqm Invalid Interpretation Code AO Chemistry S Comment on above: Interpretive Data: GFR Population mean for , Non- Americans Ages 20-29 = 116 mL/min/1.73 sq.m. Ages 30-39 = 107 mL/min/1.73 sq.m. Ages 40-49 = 99 mL/min/1.73 sq.m. Ages 50-59 = 93 mL/min/1.73 sq.m. Ages 60-69 = 85 mL/min/1.73 sq.m. Ages 70+ = 75 mL/min/1.73 sq.m. Chronic Kidney Disease: Less than 60 mL/min/1.73 square meters End Stage Renal Disease: Less than 15 mL/min/1.73 square meters Glucose [Mass/Vol] 150 mg/dL High 83 - 110 mg/dL AO ADM SS Hematocrit (Bld) [Volume fraction] 28.2 % Low 42.0 - 52.0 % AO Workflow SS Hemoglobin (Bld) [Mass/Vol] 9.4 G/dL Low 14.0 - 18.0 G/dL AO Workflow SS Lymphocyte, Absolute 49.7 103/mcL High 0.8 - 3 .9 10^3/mcL AO Workflow SS Lymphocytes/100 WBC (Bld) 82.5 % High 10.0 - 50.0 % AO Workflow SS MCH (RBC) [Entitic mass] 27.5 pg Normal 27.0 - 31.2 pg AO Workflow SS MCHC 33.4 G/dL Normal 31.8 - 35.4 G/dL AO Workflow SS MCV (RBC) [Entitic vol] 82.2 fL Normal 80.0 - 94.0 fL AO Workflow SS Monocyte, Absolute 1.3 103/mcL High 0.2 - 1.0 10^3/mcL AO Workflow SS Monocytes/100 WBC (Bld) 2.1 % Normal 1.7 - 13.0 % AO Workflow SS Neutrophil, Absolute 8.3 103/mcL High 2.9 - 6 .2 10^3/mcL AO Workflow SS Neutrophils/100 WBC (Bld) 13.8 % Low 37.0 - 80.0 % AO Workflow SS Parathyrin.intact [Mass/Vol] 67.3 pg/mL Normal 18.5 - 88.0 pg/mL AH ADM SS Platelet Estimate Normal *NA* (10/02/23 8:42 AM) Invalid Interpretation Code AO Workflow SS Platelet mean volume (Bld) [Entitic vol] 7.8 fL Normal 7.4 - 10.4 fL AO Workflow SS Platelets (Bld) [#/Vol] 380 103/mcL Normal 130 - 400 10^3/mcL AO Workflow SS Potassium [Moles/Vol] 5.1 mmol/L Normal 3.5 - 5.1 mmol/L AO ADM SS RBC (Bld) [#/Vol] 3.42 106/mcL Low 4.04 - 6.1 3 10^6/mcL AO Workflow SS Smudge Cells 2+ *NA* (10/02/23 8:42 AM) Invalid Interpretation Code AO Workflow SS Sodium [Moles/Vol] 144 mmol/L Normal 136 - 145 mmol/L AO ADM SS Urea nitrogen [Mass/Vol] 54 mg/dL High 7 - 18 mg/dL AO ADM SS Urea nitrogen/Creatinine [Mass ratio] 19 ratio Normal 7 - 27 ratio AO ADM SS Uric Acid Lvl 7.3 mg/dL High 3.5 - 7.2 mg/dL AO ADM SS WBC (Bld) [#/Vol] 60.2 103/mcL Invalid Interpretation Code 4.6 - 10.8 10^3/mcL AO Workflow SS PRURon 10-02-2023 U Protein 218 mg/dL High 0-11 [facility] ([place]) Comment on above: Performed By: #### P RUR, CRUR #### [address] [address] PTHon 10-02-2023 PTH, Intact 67.3 pg/mL Normal 18.5-88.0 [facility] ([place]) Comment on above: Performed By: #### C BC, GFR, DIFF, URIC, MORPH, BMP, VIDH #### [place] [address] #### PTH #### [place] [address] URICon 10-02-2023 Uric Acid Lvl 7.3 mg/dL High 3.5-7.2 [facility] ([place]) Comment on above: Performed By: #### C BC, GFR, DIFF, URIC, MORPH, BMP, VIDH #### [place] [address] #### PTH #### [place] [address] VIDHon 10-02-2023 Vit. D 25-Hydroxy 91.0 ng/mL Normal [facility] ([place]) Comment on above: Result Comment: Inte rpretive Values Based on Total 25(OH) Vitamin D: Deficient <20 ng/mL Insufficient 20 - <30 ng/mL Sufficient 30-100 ng/mL Performed By: #### C BC, GFR, DIFF, URIC, MORPH, BMP, VIDH #### [place] [address] #### PTH #### [place] [address] Basophil percentageOrdered B y: Waylon Khannanieves on 08-20-2023 Chloride [Moles/Vol] 109 mmol/L 98-107 [facility] Glucose [Mass/Vol] 123 mg/dL 74-106 [facility] Comment on above: Fasting Glucose resu lt from 100 to 125 mg/dL suggests IMPAIRED HOMEOSTASIS per A.D.A. criteria. Hemoglobin (Bld) [Mass/Vol] 9.7 g/dL 13.0-16.5 [facility] Potassium [Moles/Vol] 3.9 mmol/L 3.5-5.1 [facility] Sodium [Moles/Vol] 144 mmol/L 136-145 [facility] WBC (Bld) [#/Vol] 48.2 10*3/uL 4.4-11.0 [facility] Comment on above: CRITICAL VALUE VERIF IED. CALLED TO [id number]/08/24 0449 Manjinder Araseli Trish.RESULTS READ BACK BY SAME. Blood manual differential co mment interpretation (narrative result)Ordered By: Waylon Sanches on 08-20-2023 Manual differential comment Felice (Bld) [Interp] SCANNED [facility] Comment on above: LEUKOCYTOSIS PRESENT SMUDGE CELLS PRESENT 2+ COVID-19 virus antigen assay Ordered By: Kate Horton on 08-20-2023 SARS-CoV-2 (COVID-19) Ag IA.rapid Ql (Resp) [facility] Determination of erythrocyte mean corpuscular volume (MCV)Ordered By: Waylon Sanches on 08-20-2023 MCV (RBC) [Entitic vol] 87.6 fL 80-94 [facility] Erythrocyte distribution wid th ratioOrdered By: Waylon Sanches on 08-20-2023 Erythrocyte distribution width (RBC) [Ratio] 17.4 % 11.6-14.6 [facility] Erythrocyte distribution wid th standard deviationOrdered By: Waylon Sanches on 08-20-2023 Erythrocyte distribution width (RBC) [Entitic vol] 55.8 fL 35.1-43.9 [facility] Hematocrit Auto (Bld) [Volum e fraction]Ordered By: Waylon Sanches on 08-20-2023 Hematocrit (Bld) [Volume fraction] 31.9 % 40-54 [facility] Laboratory - Chemistry and C hemistry - challengeOrdered By: Waylon Sanches on 08-20-2023 CO2 [Moles/Vol] 32.0 mmol/L 21.0-32.0 [facility] Urea nitrogen/Creatinine [Mass ratio] 22.1 mg/mg 10-20 [facility] Laboratory - Hematology and Cell countsOrdered By: Waylon Sanches on 08-20-2023 MCH (RBC) [Entitic mass] 26.6 pg 27.0-32.0 [facility] MCHC (RBC) [Mass/Vol] 30.4 g/dL 32-36 [facility] Platelet mean volume (Bld) [Entitic vol] 10.6 fL 6.2-12.0 [facility] Platelets (Bld) [#/Vol] 213 10*3/uL 150-450 [facility] No Panel InformationOrdered By: Waylon Sanches on 08-20-2023 Estimated Creatinine Clearance Calc 29.18 ml/min [facility] Estimated GFR (MDRD) Amer 44 mL/min >60 [facility] Comment on above: GFR Calc Estimated GFR (MDRD) Non-Af Amer 36 mL/min >60 [facility] Comment on above: Non- GFR Calc RBC Auto (Bld) [#/Vol]Ordere d By: Waylon Sanches on 08-20-2023 RBC (Bld) [#/Vol] 3.64 10*6/uL 4.6-6.2 [facility] Review by pathologistOrdered By: Waylon Sanches on 08-20-2023 Pathologist review Felice (Unsp spec) [Interp] September [facility] Serum or plasma calcium jamila urement (mass/volume)Ordered By: Waylon Sanches on 08-20-2023 Calcium [Mass/Vol] 8.8 mg/dL 8.5-10.1 [facility] Serum or plasma creatinine m easurement (mass/volume)Ordered By: Waylon Sanches on 08-20-2023 Creatinine [Mass/Vol] 1.90 mg/dL 0.70-1.30 [facility] Comment on above: The validity of the calculated GFR & GFRAA in patients over 70 years has not been determined. Clinical correlation is essential. Serum or plasma urea nitroge n measurement (mass/volume)Ordered By: Waylon Sanches on 08-20-2023 Urea nitrogen [Mass/Vol] 42 mg/dL 7-18 [facility] Thin prep Papanicolaou smear with manual screeningOrdered By: Waylon Sanches on 08-20-2023 Thin prep Papanicolaou smear with manual screening 3 5-15 [facility] Absolute lymphocyte countOrd ered By: Lamont Castillo on 08-17-2023 Lymphocytes Auto (Unsp spec) [#/Vol] 47.98 10*3/uL 0.83-4.51 [facility] Automated lymphocyte count a s percentage of total leukocytesOrdered By: Lamont Castillo on 08-17-2023 Lymphocytes/100 WBC Auto (Unsp spec) 86.6 % 19-41 [facility] Basophil percentageOrdered B y: Lamont Castillo on 08-17-2023 Basophils/100 WBC (Bld) 0.2 % 0-1 [facility] Eosinophils/100 WBC (Bld) 0.5 % 0-5 [facility] Monocytes/100 WBC (Bld) 3.0 % 0-10 [facility] Neutrophils (Bld) [#/Vol] 5.2 10*3/uL 2.0-7.7 [facility] Neutrophils/100 WBC (Bld) 9.4 % 47-70 [facility] Immature granulocytes/100 WB C Auto (Bld)Ordered By: Lamont Castillo on 08-17-2023 Immature granulocytes/100 WBC (Bld) 0.300 % 0.0-0.9 [facility] Comment on above: IG% - Immature Granu locytes (promyelocytes, myelocytes and metamyelocytes) > 1% indicates that a LEFT SHIFT is Present. Laboratory - Chemistry and C hemistry - challengeOrdered By: Waylon Sanches on 08-17-2023 Natriuretic peptide B (Bld) [Mass/Vol] 616.4 pg/mL 0-100 [facility] Laboratory - Hematology and Cell countsOrdered By: Lamont Castillo on 08-17-2023 Nucleated RBC/100 WBC (Bld) [Ratio] 0 % 0-5 [facility] Absolute lymphocyte countOrd ered By: Manolo Khan on 08-16-2023 Lymphocytes Auto (Unsp spec) [#/Vol] 49.61 10*3/uL 0.83-4.51 [facility] Automated lymphocyte count a s percentage of total leukocytesOrdered By: Manolo Khan on 08-16-2023 Lymphocytes/100 WBC Auto (Unsp spec) 85.8 % 19-41 [facility] Basophil percentageOrdered B y: Manolo Khan on 08-16-2023 Basophil percentage 5-10 SEEN /hpf 0-5 [facility] Basophils/100 WBC (Bld) 0.4 % 0-1 [facility] Bilirubin [Mass/Vol] 0.40 mg/dL 0.20-1.00 [facility] Comment on above: For patients on eltr ombopag therapy, use of Dimension Beacon TBIL is not recommended. Chloride [Moles/Vol] 106 mmol/L 98-107 [facility] Eosinophils/100 WBC (Bld) 0.3 % 0-5 [facility] Glucose [Mass/Vol] 140 mg/dL 74-106 [facility] Comment on above: Fasting Glucose resu lt greater than or equal to 126 mg/dL suggests DIABETES MELLITUS per A.D.A. criteria. Hemoglobin (Bld) [Mass/Vol] 10.7 g/dL 13.0-16.5 [facility] Monocytes/100 WBC (Bld) 1.7 % 0-10 [facility] Neutrophils (Bld) [#/Vol] 6.7 10*3/uL 2.0-7.7 [facility] Neutrophils/100 WBC (Bld) 11.5 % 47-70 [facility] Potassium [Moles/Vol] 3.8 mmol/L 3.5-5.1 [facility] Protein [Mass/Vol] 5.8 g/dL 6.4-8.2 [facility] Sodium [Moles/Vol] 141 mmol/L 136-145 [facility] WBC (Bld) [#/Vol] 57.8 10*3/uL 4.4-11.0 [facility] Comment on above: CRITICAL VALUE VERIF IED. CALLED TO [id number]/04/24 1228 Lupillo Quiroga.RESULTS READ BACK BY SAME . Bilirubin Test strip Ql (U)O rdered By: Manolo Khan on 08-16-2023 Bilirubin Ql (U) Negative Negative [facility] Blood manual differential co mment interpretation (narrative result)Ordered By: Manolo Khan on 08-16-2023 Manual differential comment Felice (Bld) [Interp] SCANNED [facility] Determination of erythrocyte mean corpuscular volume (MCV)Ordered By: Manolo Khan on 08-16-2023 MCV (RBC) [Entitic vol] 89.0 fL 80-94 [facility] Erythrocyte distribution wid th ratioOrdered By: Manolo Khan on 08-16-2023 Erythrocyte distribution width (RBC) [Ratio] 17.7 % 11.6-14.6 [facility] Erythrocyte distribution wid th standard deviationOrdered By: Manolo Khan on 08-16-2023 Erythrocyte distribution width (RBC) [Entitic vol] 57.1 fL 35.1-43.9 [facility] Hematocrit Auto (Bld) [Volum e fraction]Ordered By: Manolo Khan on 08-16-2023 Hematocrit (Bld) [Volume fraction] 35.5 % 40-54 [facility] Immature granulocytes/100 WB C Auto (Bld)Ordered By: Manolo Khan on 08-16-2023 Immature granulocytes/100 WBC (Bld) 0.300 % 0.0-0.9 [facility] Comment on above: IG% - Immature Granu locytes (promyelocytes, myelocytes and metamyelocytes) > 1% indicates that a LEFT SHIFT is Present. Ketones Test strip Ql (U)Ord ered By: Manolo Khan on 08-16-2023 Ketones Ql (U) Negative Negative [facility] Laboratory - Chemistry and C hemistry - challengeOrdered By: Manolo Khan on 08-16-2023 Albumin/Globulin [Mass ratio] 1.3 {ratio} 0.9-2.4 [facility] ALP [Catalytic activity/Vol] 87 U/L 45-117 [facility] ALT [Catalytic activity/Vol] 24 U/L 16-61 [facility] CO2 [Moles/Vol] 33.0 mmol/L 21.0-32.0 [facility] Globulin (S) [Mass/Vol] 2.5 g/dL 2.2-4.2 [facility] Lipase [Catalytic activity/Vol] 15 U/L 13-75 [facility] Comment on above: Please note:LIPASE r evised reference range effective 22. New Lipase methodology. Expected to produce lower values than the previous assay method. NEW Reference Range: 13 - 75 U/L Urea nitrogen/Creatinine [Mass ratio] 26.3 mg/mg 10-20 [facility] Laboratory - Chemistry and C hemistry - challengeOrdered By: Lamont Castillo on 08-16-2023 Magnesium [Mass/Vol] 2.3 mg/dL 1.6-2.6 [facility] Laboratory - Hematology and Cell countsOrdered By: Manolo Khan on 08-16-2023 MCH (RBC) [Entitic mass] 26.8 pg 27.0-32.0 [facility] MCHC (RBC) [Mass/Vol] 30.1 g/dL 32-36 [facility] Nucleated RBC/100 WBC (Bld) [Ratio] 0 % 0-5 [facility] Platelet mean volume (Bld) [Entitic vol] 10.1 fL 6.2-12.0 [facility] Platelets (Bld) [#/Vol] 272 10*3/uL 150-450 [facility] Laboratory - Microbiology an d Antimicrobial susceptibilityOrdered By: Manolo Khan on 08-16-2023 SARS-CoV-2 (COVID-19) RNA LAURA+probe Ql (Unsp spec) [facility] Mucus LM Ql (Urine sed)Order ed By: Manolo Khan on 08-16-2023 Mucus Ql (Urine sed) 0 SEEN /hpf [facility] Nitrite Test strip Ql (U)Ord ered By: Manolo Khan on 08-16-2023 Nitrite Ql (U) Negative Negative [facility] No Panel InformationOrdered By: Manolo Khan on 08-16-2023 Urine RBC 0 SEEN /hpf 0-5 [facility] Estimated GFR (MDRD) Amer 40 mL/min >60 [facility] Comment on above: GFR Calc Estimated GFR (MDRD) Non-Af Amer 33 mL/min >60 [facility] Comment on above: Non- GFR Calc Troponin I High Sensitivity 17 pg/mL 3.0-78.0 [facility] Comment on above: Please Note: New Kacie t Units and Gender Specific Reference Ranges. For more information see Policy Stat Procedure Beacon High Sensitivity Troponin (TNIH) and attachments. Protein Test strip Ql (U)Ord ered By: Manolo Khan on 08-16-2023 Protein Ql (U) 15 mg/dl Negative [facility] RBC Auto (Bld) [#/Vol]Ordere d By: Manolo Khan on 08-16-2023 RBC (Bld) [#/Vol] 3.99 10*6/uL 4.6-6.2 [facility] Review by pathologistOrdered By: Manolo Khan on 08-16-2023 Pathologist review Felice (Unsp spec) [Interp] May foll [facility] Serum or plasma calcium jamila urement (mass/volume)Ordered By: Manolo Khan on 08-16-2023 Calcium [Mass/Vol] 9.0 mg/dL 8.5-10.1 [facility] Serum or plasma creatinine m easurement (mass/volume)Ordered By: Manolo Khan on 08-16-2023 Creatinine [Mass/Vol] 2.05 mg/dL 0.70-1.30 [facility] Comment on above: The validity of the calculated GFR & GFRAA in patients over 70 years has not been determined. Clinical correlation is essential. Serum or plasma urea nitroge n measurement (mass/volume)Ordered By: Manolo Khan on 08-16-2023 Urea nitrogen [Mass/Vol] 54 mg/dL 7-18 [facility] Squamous epithelial cells de tection in urine sediment by light microscopyOrdered By: Manolo Khan on 08-16-2023 Epithelial cells.squamous LM Ql (Urine sed) 0 SEEN /hpf 0-5 [facility] Thin prep Papanicolaou smear with manual screeningOrdered By: Manolo Khan on 08-16-2023 Thin prep Papanicolaou smear with manual screening 3.3 g/dL 3.2-5.0 [facility] Thin prep Papanicolaou smear with manual screening 19 U/L 15-37 [facility] Thin prep Papanicolaou smear with manual screening 2 5-15 [facility] Urine blood detectionOrdered By: Manolo Khan on 08-16-2023 RBC Ql (U) Negative Negative [facility] Urine clarityOrdered By: Magaly Khan on 08-16-2023 Clarity (U) Clear Clear [facility] Urine color determinationOrd ered By: Manolo Khan on 08-16-2023 Color (U) Yellow Yellow [facility] Urine glucose detectionOrder ed By: Manolo Khan on 08-16-2023 Glucose Ql (U) Normal mg/dl Normal [facility] Urine leukocyte esterase det ection by dipstickOrdered By: Manolo Khan on 08-16-2023 Leukocyte esterase Test strip Ql (U) 100 /ul Negative [facility] Urine pHOrdered By: Manolo tanner on 08-16-2023 pH (U) 6.5 [pH] 5.0 - 8.0 [facility] Urine sediment bacteria coun t by microscopy (number/high power field)Ordered By: Manolo Khan on 08-16-2023 Bacteria LM.HPF (Urine sed) [#/Area] 0 /[HPF] None Seen [facility] Urine specific gravity measu rementOrdered By: Manolo Khan on 08-16-2023 Specific gravity (U) [Rel density] 1.010 1.002-1.030 [facility] Urine urobilinogen measureme ntOrdered By: Manolo Khan on 08-16-2023 Urobilinogen Ql (U) Normal mg/dl Normal [facility] .GFRon 08-15-2023 GFR Non- 31 ml/min/1.73sqm Normal [facility] ([place]) Comment on above: Result Comment: GFR Population mean for , [...] 15 mL/min/1.73 square meters Performed By: #### C BC, GFR, DIFF, URIC, MORPH, BMP, VIDH #### [address] [address] #### PTH #### [address] [address] GFR 38 ml/min/1.73sqm Normal [facility] ([place]) Comment on above: Result Comment: GFR Population mean for , [...] 15 mL/min/1.73 square meters Performed By: #### C BC, GFR, DIFF, URIC, MORPH, BMP, VIDH #### [place] [address] #### PTH #### [place] [address] .Manual Diffon 08-15-2023 Atypical Lymphs 3.0 % Normal 0.0-5.0 [facility] ([place]) Comment on above: Performed By: #### C BC, GFR, DIFF, URIC, MORPH, BMP, VIDH #### [place] [address] #### PTH #### [place] [address] Basophil %, Manual 0.0 % Normal 0.0-2.5 [facility] ([place]) Comment on above: Performed By: #### C BC, GFR, DIFF, URIC, MORPH, BMP, VIDH #### [place] [address] #### PTH #### [place] [address] Basophil, Abs Manual 0.0 10 3/mcL Normal 0.0-0.2 [facility] ([place]) Comment on above: Performed By: #### C BC, GFR, DIFF, URIC, MORPH, BMP, VIDH #### [place] [address] #### PTH #### [place] [address] Eosinophil %, Manual 1.0 % Normal 0.0-7.0 [facility] ([place]) Comment on above: Performed By: #### C BC, GFR, DIFF, URIC, MORPH, BMP, VIDH #### [place] [address] #### PTH #### [address] [address] Eosinophil, Abs Manual 0.6 10 3/mcL High 0.0-0.4 [facility] ([place]) Comment on above: Performed By: #### C BC, GFR, DIFF, URIC, MORPH, BMP, VIDH #### [place] [address] #### PTH #### [address] [address] Lymphocyte %, Manual 82.0 % High 10.0-50.0 [facility] ([place]) Comment on above: Performed By: #### C BC, GFR, DIFF, URIC, MORPH, BMP, VIDH #### [place] [address] #### PTH #### [address] [address] Lymphocyte, Abs Manual 53.1 10 3/mcL High 0.8-3.9 [facility] ([place]) Comment on above: Performed By: #### C BC, GFR, DIFF, URIC, MORPH, BMP, VIDH #### [place] [address] #### PTH #### [address] [address] Monocyte %, Manual 2.0 % Normal 1.7-13.0 [facility] ([place] Comment on above: Performed By: #### C BC, GFR, DIFF, URIC, MORPH, BMP, VIDH #### [place] [address] #### PTH #### [address] [address] Monocyte, Abs Manual 1.3 10 3/mcL High 0.2-1.0 [facility] ([place]) Comment on above: Performed By: #### C BC, GFR, DIFF, URIC, MORPH, BMP, VIDH #### [place] [address] #### PTH #### [place] [address] Neutrophil %, Manual 12.0 % Low 37.0-80.0 [facility] ([place] Comment on above: Performed By: #### C BC, GFR, DIFF, URIC, MORPH, BMP, VIDH #### [place] [address] #### PTH #### [place] [address] Neutrophil, Abs Manual 7.8 10 3/mcL High 2.9-6.2 [facility] ([place] Comment on above: Performed By: #### C BC, GFR, DIFF, URIC, MORPH, BMP, VIDH #### [place] [address] #### PTH #### [place] [address] Nucleated RBC 0.0 /100 WBC Normal [facility] ([place] Comment on above: Performed By: #### C BC, GFR, DIFF, URIC, MORPH, BMP, VIDH #### [place] [address] #### PTH #### [place] [address] .Morphon 08-15-2023 Anisocytosis Ql (Bld) 1+ Normal [facility] ([place]) Comment on above: Performed By: #### C BC, GFR, DIFF, URIC, MORPH, BMP, VIDH #### [place] [address] #### PTH #### [place] [address] Ovalocytes 1+ Normal [facility] ([place]) Comment on above: Performed By: #### C BC, GFR, DIFF, URIC, MORPH, BMP, VIDH #### [place] [address] #### PTH #### [address] [address] Platelet Estimate Normal Normal [facility] ([place]) Comment on above: Performed By: #### C BC, GFR, DIFF, URIC, MORPH, BMP, VIDH #### [address] [address] #### PTH #### [address] [address] Poik 1+ Normal [facility] ([place]) Comment on above: Performed By: #### C BC, GFR, DIFF, URIC, MORPH, BMP, VIDH #### [address] [address] #### PTH #### [address] [address] Tear Cell 1+ Normal [facility] ([place]) Comment on above: Performed By: #### C BC, GFR, DIFF, URIC, MORPH, BMP, VIDH #### [address] [address] #### PTH #### [place] [address] BMPon 08-15-2023 BUN/Creatinine Ratio 28 ratio High 7-27 [facility] ([place]) Comment on above: Performed By: #### C BC, GFR, DIFF, URIC, MORPH, BMP, VIDH #### [address] [address] #### PTH #### [place] [address] Calcium [Mass/Vol] 8.6 mg/dL Normal 8.4-10.2 [facility] ([place] Comment on above: Performed By: #### C BC, GFR, DIFF, URIC, MORPH, BMP, VIDH #### [address] [address] #### PTH #### [address] [address] Chloride [Moles/Vol] 105 mmol/L Normal 98-107 [facility] ([place]) Comment on above: Performed By: #### C BC, GFR, DIFF, URIC, MORPH, BMP, VIDH #### [place] [address] #### PTH #### [address] [address] CO2 [Moles/Vol] 30 mmol/L Normal 23-31 [facility] ([place] Comment on above: Performed By: #### C BC, GFR, DIFF, URIC, MORPH, BMP, VIDH #### [place] [address] #### PTH #### [address] [address] Creatinine [Mass/Vol] 2.03 mg/dL High 0.70-1.30 [facility] ([place]) Comment on above: Performed By: #### C BC, GFR, DIFF, URIC, MORPH, BMP, VIDH #### [place] [address] #### PTH #### [address] [address] Electrolyte Balance 9.0 mEq/L Normal 4.0-15.0 [facility] ([place]) Comment on above: Performed By: #### C BC, GFR, DIFF, URIC, MORPH, BMP, VIDH #### [place] [address] #### PTH #### [address] [address] Glucose [Mass/Vol] 104 mg/dL Normal 83-110 [facility] ([place] Comment on above: Performed By: #### C BC, GFR, DIFF, URIC, MORPH, BMP, VIDH #### [place] [address] #### PTH #### [address] [address] Potassium [Moles/Vol] 3.9 mmol/L Normal 3.5-5.1 [facility] ([place]) Comment on above: Performed By: #### C BC, GFR, DIFF, URIC, MORPH, BMP, VIDH #### [address] [address] #### PTH #### [address] [address] Sodium [Moles/Vol] 144 mmol/L Normal 136-145 [facility] ([place] Comment on above: Performed By: #### C BC, GFR, DIFF, URIC, MORPH, BMP, VIDH #### [place] [address] #### PTH #### [address] [address] Urea nitrogen [Mass/Vol] 57 mg/dL High 7-18 [facility] ([place] Comment on above: Performed By: #### C BC, GFR, DIFF, URIC, MORPH, BMP, VIDH #### [place] [address] #### PTH #### [place] [address] CBCon 08-15-2023 Erythrocyte distribution width (RBC) [Ratio] 18.6 % High 11.5-14.5 [facility] ([place] Comment on above: Performed By: #### C BC, GFR, DIFF, URIC, MORPH, BMP, VIDH #### [place] [address] #### PTH #### [place] [address] Hematocrit (Bld) [Volume fraction] 34.4 % Low 42.0-52.0 [facility] ([place] Comment on above: Performed By: #### C BC, GFR, DIFF, URIC, MORPH, BMP, VIDH #### [place] [address] #### PTH #### [place] [address] Hgb 11.0 G/dL Low 14.0-18.0 [facility] ([place] Comment on above: Performed By: #### C BC, GFR, DIFF, URIC, MORPH, BMP, VIDH #### [place] [address] #### PTH #### [address] [address] MCH (RBC) [Entitic mass] 26.9 pg Low 27.0-31.2 [facility] ([place]) Comment on above: Performed By: #### C BC, GFR, DIFF, URIC, MORPH, BMP, VIDH #### [place] [address] #### PTH #### [place] [address] MCHC 31.9 G/dL Normal 31.8-35.4 [facility] ([place]) Comment on above: Performed By: #### C BC, GFR, DIFF, URIC, MORPH, BMP, VIDH #### [place] [address] #### PTH #### [place] [address] MCV (RBC) [Entitic vol] 84.2 fL Normal 80.0-94.0 [facility] ([place]) Comment on above: Performed By: #### C BC, GFR, DIFF, URIC, MORPH, BMP, VIDH #### [place] [address] #### PTH #### [place] [address] Platelet 292 10 3/mcL Normal 130-400 [facility] ([place]) Comment on above: Performed By: #### C BC, GFR, DIFF, URIC, MORPH, BMP, VIDH #### [place] [address] #### PTH #### [place] [address] Platelet mean volume (Bld) [Entitic vol] 7.9 fL Normal 7.4-10.4 [facility] ([place]) Comment on above: Performed By: #### C BC, GFR, DIFF, URIC, MORPH, BMP, VIDH #### [place] [address] #### PTH #### [address] [address] RBC 4.09 10 6/mcL Normal 4.04-6.13 [facility] ([place] Comment on above: Performed By: #### C BC, GFR, DIFF, URIC, MORPH, BMP, VIDH #### [address] [address] #### PTH #### [place] [address] WBC 64.7 10 3/mcL Critically abnormal 4.6-10.8 [facility] ([place]) Comment on above: Performed By: #### C BC, GFR, DIFF, URIC, MORPH, BMP, VIDH #### [address] [address] #### PTH #### [place] [address] LABORATORYOrdered By: SYSTEM SYSTEM on 08-15-2023 Calcium [Mass/Vol] 8.6 mg/dL Normal 8.4 - 10. 2 mg/dL AO ADM SS Chloride [Moles/Vol] 105 mmol/L Normal 98 - 10 7 mmol/L AO ADM SS CO2 [Moles/Vol] 30 mmol/L Normal 23 - 31 mmol/L AO ADM SS Creatinine [Mass/Vol] 2.03 mg/dL High 0.70 - 1.30 mg/dL AO ADM SS Electrolyte Balance 9.0 mEq/L Normal 4.0 - 15 .0 mEq/L AO ADM SS GFR/1.73 sq M.predicted among blacks MDRD (S/P/Bld) [Vol rate/Area] 38 ml/min/1.73sqm Invalid Interpretation Code AO Chemistry S Comment on above: Interpretive Data: GFR Population mean for , Non- Americans Ages 20-29 = 116 mL/min/1.73 sq.m. Ages 30-39 = 107 mL/min/1.73 sq.m. Ages 40-49 = 99 mL/min/1.73 sq.m. Ages 50-59 = 93 mL/min/1.73 sq.m. Ages 60-69 = 85 mL/min/1.73 sq.m. Ages 70+ = 75 mL/min/1.73 sq.m. Chronic Kidney Disease: Less than 60 mL/min/1.73 square meters End Stage Renal Disease: Less than 15 mL/min/1.73 square meters GFR/1.73 sq M.predicted among non-blacks MDRD (S/P/Bld) [Vol rate/Area] 31 ml/min/1.73sqm Invalid Interpretation Code AO Chemistry S Comment on above: Interpretive Data: GFR Population mean for , Non- Americans Ages 20-29 = 116 mL/min/1.73 sq.m. Ages 30-39 = 107 mL/min/1.73 sq.m. Ages 40-49 = 99 mL/min/1.73 sq.m. Ages 50-59 = 93 mL/min/1.73 sq.m. Ages 60-69 = 85 mL/min/1.73 sq.m. Ages 70+ = 75 mL/min/1.73 sq.m. Chronic Kidney Disease: Less than 60 mL/min/1.73 square meters End Stage Renal Disease: Less than 15 mL/min/1.73 square meters Glucose [Mass/Vol] 104 mg/dL Normal 83 - 110 mg/dL AO ADM SS Potassium [Moles/Vol] 3.9 mmol/L Normal 3.5 - 5.1 mmol/L AO ADM SS Sodium [Moles/Vol] 144 mmol/L Normal 136 - 145 mmol/L AO ADM SS Urea nitrogen [Mass/Vol] 57 mg/dL High 7 - 18 mg/dL AO ADM SS Urea nitrogen/Creatinine [Mass ratio] 28 ratio High 7 - 27 ratio AO ADM SS Absolute lymphocyte countOrd ered By: Kate Horton on 08-10-2023 Lymphocytes Auto (Unsp spec) [#/Vol] 47.53 10*3/uL 0.83-4.51 [facility] Automated lymphocyte count a s percentage of total leukocytesOrdered By: Kate Horton on 08-10-2023 Lymphocytes/100 WBC Auto (Unsp spec) 85.7 % 19-41 [facility] Basophil percentageOrdered B y: Kate Horton on 08-10-2023 Basophils/100 WBC (Bld) 0.4 % 0-1 [facility] Chloride [Moles/Vol] 105 mmol/L 98-107 [facility] Eosinophils/100 WBC (Bld) 0.7 % 0-5 [facility] Glucose [Mass/Vol] 118 mg/dL 74-106 [facility] Comment on above: Fasting Glucose resu lt from 100 to 125 mg/dL suggests IMPAIRED HOMEOSTASIS per A.D.A. criteria. Hemoglobin (Bld) [Mass/Vol] 10.5 g/dL 13.0-16.5 [facility] Monocytes/100 WBC (Bld) 3.2 % 0-10 [facility] Neutrophils (Bld) [#/Vol] 5.4 10*3/uL 2.0-7.7 [facility] Neutrophils/100 WBC (Bld) 9.7 % 47-70 [facility] Potassium [Moles/Vol] 3.6 mmol/L 3.5-5.1 [facility] Sodium [Moles/Vol] 144 mmol/L 136-145 [facility] WBC (Bld) [#/Vol] 55.5 10*3/uL 4.4-11.0 [facility] Comment on above: CRITICAL VALUE VERIF IED. CALLED TO [id number] 0651 Veronica Donovan.RESULTS READ BACK BY SAME. Determination of erythrocyte mean corpuscular volume (MCV)Ordered By: Kate Horton on 08-10-2023 MCV (RBC) [Entitic vol] 87.3 fL 80-94 [facility] Erythrocyte distribution wid th ratioOrdered By: Kate Horton on 08-10-2023 Erythrocyte distribution width (RBC) [Ratio] 17.8 % 11.6-14.6 [facility] Erythrocyte distribution wid th standard deviationOrdered By: Kate Horton on 08-10-2023 Erythrocyte distribution width (RBC) [Entitic vol] 56.9 fL 35.1-43.9 [facility] Hematocrit Auto (Bld) [Volum e fraction]Ordered By: Kate Horton on 08-10-2023 Hematocrit (Bld) [Volume fraction] 34.4 % 40-54 [facility] Immature granulocytes/100 WB C Auto (Bld)Ordered By: Kate Horton on 08-10-2023 Immature granulocytes/100 WBC (Bld) 0.300 % 0.0-0.9 [facility] Comment on above: IG% - Immature Granu locytes (promyelocytes, myelocytes and metamyelocytes) > 1% indicates that a LEFT SHIFT is Present. Laboratory - Chemistry and C hemistry - challengeOrdered By: Kate Horton on 08-10-2023 CO2 [Moles/Vol] 34.0 mmol/L 21.0-32.0 [facility] Urea nitrogen/Creatinine [Mass ratio] 23.9 mg/mg 10-20 [facility] Laboratory - Hematology and Cell countsOrdered By: Kate Horton on 08-10-2023 MCH (RBC) [Entitic mass] 26.6 pg 27.0-32.0 [facility] MCHC (RBC) [Mass/Vol] 30.5 g/dL 32-36 [facility] Nucleated RBC/100 WBC (Bld) [Ratio] 0 % 0-5 [facility] Platelet mean volume (Bld) [Entitic vol] 10.2 fL 6.2-12.0 [facility] Platelets (Bld) [#/Vol] 253 10*3/uL 150-450 [facility] No Panel InformationOrdered By: Kate Horton on 08-10-2023 Estimated Creatinine Clearance Calc 27.20 ml/min [facility] Estimated GFR (MDRD) Amer 40 mL/min >60 [facility] Comment on above: GFR Calc Estimated GFR (MDRD) Non-Af Amer 33 mL/min >60 [facility] Comment on above: Non- GFR Calc RBC Auto (Bld) [#/Vol]Ordere d By: Kate Horton on 08-10-2023 RBC (Bld) [#/Vol] 3.94 10*6/uL 4.6-6.2 [facility] Review by pathologistOrdered By: Kate Horton on 08-10-2023 Pathologist review Felice (Unsp spec) [Interp] Reviewed [facility] Comment on above: Previous reported re sult: September foll Edited by: LOIS on 08/10/23:1107Absolute lymphocytosis suggestive of low grade lympho-proliferative disorder.Clinical correlation is necessary.Normocytic anemia. Roby Michelle M.D. 08/10/23 AMENDED REPORT 08/10/23 1107 PATH REV previously reported as: September foll Serum or plasma calcium jamila urement (mass/volume)Ordered By: Kate Horton on 08-10-2023 Calcium [Mass/Vol] 9.1 mg/dL 8.5-10.1 [facility] Serum or plasma creatinine m easurement (mass/volume)Ordered By: Kate Horton on 08-10-2023 Creatinine [Mass/Vol] 2.05 mg/dL 0.70-1.30 [facility] Comment on above: The validity of the calculated GFR & GFRAA in patients over 70 years has not been determined. Clinical correlation is essential. Serum or plasma urea nitroge n measurement (mass/volume)Ordered By: Kate Horton on 08-10-2023 Urea nitrogen [Mass/Vol] 49 mg/dL 7-18 [facility] Thin prep Papanicolaou smear with manual screeningOrdered By: Kate Horton on 08-10-2023 Thin prep Papanicolaou smear with manual screening 5 5-15 [facility] Basophil percentageOrdered B y: Kate Horton on 08-09-2023 Basophil percentage 4.8 mg/dL 2.5-4.9 [facility] Blood manual differential co mment interpretation (narrative result)Ordered By: Kate Horton on 08-09-2023 Manual differential comment Felice (Bld) [Interp] SCANNED [facility] Laboratory - Chemistry and C hemistry - challengeOrdered By: Kate Horton on 08-09-2023 Magnesium [Mass/Vol] 2.1 mg/dL 1.6-2.6 [facility] Laboratory - Hematology and Cell countsOrdered By: Yovani Soto on 08-08-2023 Anisocytosis Ql (Bld) 2+ [facility] Smudge cell detectionOrdered By: Yovani Soto on 08-08-2023 Smudge cells LM Ql (Bld) 2+ [facility] Absolute lymphocyte countOrd ered By: Ian Lujan on 08-07-2023 Lymphocytes Auto (Unsp spec) [#/Vol] 45.68 10*3/uL 0.83-4.51 [facility] Automated lymphocyte count a s percentage of total leukocytesOrdered By: Ian Lujan on 08-07-2023 Lymphocytes/100 WBC Auto (Unsp spec) 82.7 % 19-41 [facility] Basophil percentageOrdered B y: Ian Delacruzbhavin on 08-07-2023 Basophils/100 WBC (Bld) 0.3 % 0-1 [facility] Chloride [Moles/Vol] 110 mmol/L 98-107 [facility] Eosinophils/100 WBC (Bld) 0.4 % 0-5 [facility] Glucose [Mass/Vol] 121 mg/dL 74-106 [facility] Comment on above: Fasting Glucose resu lt from 100 to 125 mg/dL suggests IMPAIRED HOMEOSTASIS per A.D.A. criteria. Hemoglobin (Bld) [Mass/Vol] 9.2 g/dL 13.0-16.5 [facility] Lactate [Moles/Vol] 0.9 mmol/L 0.4-2.0 [facility] Monocytes/100 WBC (Bld) 5.2 % 0-10 [facility] Neutrophils (Bld) [#/Vol] 6.1 10*3/uL 2.0-7.7 [facility] Neutrophils/100 WBC (Bld) 11.0 % 47-70 [facility] Potassium [Moles/Vol] 4.5 mmol/L 3.5-5.1 [facility] Sodium [Moles/Vol] 143 mmol/L 136-145 [facility] WBC (Bld) [#/Vol] 55.2 10*3/uL 4.4-11.0 [facility] Blood manual differential co mment interpretation (narrative result)Ordered By: Ian Lujan on 08-07-2023 Manual differential comment Felice (Bld) [Interp] SCANNED [facility] Comment on above: LYMPHOCYTOSIS Determination of erythrocyte mean corpuscular volume (MCV)Ordered By: Ian Lujan on 08-07-2023 MCV (RBC) [Entitic vol] 87.7 fL 80-94 [facility] Erythrocyte distribution wid th ratioOrdered By: Ian Lujan on 08-07-2023 Erythrocyte distribution width (RBC) [Ratio] 18.3 % 11.6-14.6 [facility] Erythrocyte distribution wid th standard deviationOrdered By: Ian Lujan on 08-07-2023 Erythrocyte distribution width (RBC) [Entitic vol] 57.8 fL 35.1-43.9 [facility] Hematocrit Auto (Bld) [Volum e fraction]Ordered By: Ian Lujan on 08-07-2023 Hematocrit (Bld) [Volume fraction] 30.7 % 40-54 [facility] Immature granulocytes/100 WB C Auto (Bld)Ordered By: Ian Lujan on 08-07-2023 Immature granulocytes/100 WBC (Bld) 0.400 % 0.0-0.9 [facility] Comment on above: IG% - Immature Granu locytes (promyelocytes, myelocytes and metamyelocytes) > 1% indicates that a LEFT SHIFT is Present. Laboratory - Chemistry and C hemistry - challengeOrdered By: [facility] 08-07-2023 CO2 [Moles/Vol] 25.0 mmol/L 21.0-32.0 [facility] Natriuretic peptide B (Bld) [Mass/Vol] 4227.8 pg/mL 0-100 [facility] Urea nitrogen/Creatinine [Mass ratio] 23.0 mg/mg 10-20 [facility] Laboratory - Hematology and Cell countsOrdered By: [facility] on 08-07-2023 MCH (RBC) [Entitic mass] 26.3 pg 27.0-32.0 [facility] MCHC (RBC) [Mass/Vol] 30.0 g/dL 32-36 [facility] Nucleated RBC/100 WBC (Bld) [Ratio] 0 % 0-5 [facility] Platelet mean volume (Bld) [Entitic vol] 10.4 fL 6.2-12.0 [facility] Platelets (Bld) [#/Vol] 236 10*3/uL 150-450 [facility] Laboratory - Microbiology an d Antimicrobial susceptibilityOrdered By: [facility] Lujan on 08-07-2023 Bacteria identified Cx Nom (Bld) No growth in 5 days. [facility] SARS-CoV-2 (COVID-19) RNA LAURA+probe Ql (Unsp spec) [facility] No Panel InformationOrdered By: [facility] Lu[facility] on 08-07-2023 D-Dimer Quantitative (PE/DVT) 1.43 FEU/ug/m 0.27-0.49 [facility] Comment on above: D-Dimer ELEVATED (>0 .49): Additional studies and clinicalassessments are indicated to conclude diagnosis of:Deep Vein Thrombosis (DVT) or Pulmonary Embolism (PE)CRITICAL VALUE VERIFIED. CALLED TO GORDO LAZAR08/07/23 1410 Karon Velazquez.RESULTS READ BACK BY SAME . Estimated Creatinine Clearance Calc 29.20 ml/min [facility] Estimated GFR (MDRD) Amer 43 mL/min >60 [facility] Comment on above: GFR Calc Estimated GFR (MDRD) Non-Af Amer 36 mL/min >60 [facility] Comment on above: Non- GFR Calc Troponin I High Sensitivity 34 pg/mL 3.0-78.0 [facility] Comment on above: Please Note: New Kacie t Units and Gender Specific Reference Ranges. For more information see Policy Stat Procedure [place] High Sensitivity Troponin (TNIH) and attachments. RBC Auto (Bld) [#/Vol]Ordere d By: Ian Lujan on 08-07-2023 RBC (Bld) [#/Vol] 3.50 10*6/uL 4.6-6.2 [facility] Review by pathologistOrdered By: Ian Lujan on 08-07-2023 Pathologist review Felice (Unsp spec) [Interp] May foll [facility] Serum or plasma calcium jamila urement (mass/volume)Ordered By: Ian Lujan on 08-07-2023 Calcium [Mass/Vol] 9.1 mg/dL 8.5-10.1 [facility] Serum or plasma creatinine m easurement (mass/volume)Ordered By: Ian Lujan on 08-07-2023 Creatinine [Mass/Vol] 1.91 mg/dL 0.70-1.30 [facility] Comment on above: The validity of the calculated GFR & GFRAA in patients over 70 years has not been determined. Clinical correlation is essential. Serum or plasma urea nitroge n measurement (mass/volume)Ordered By: Ian Lujan on 08-07-2023 Urea nitrogen [Mass/Vol] 44 mg/dL 7-18 [facility] Smudge cell detectionOrdered By: Ian Lujan on 08-07-2023 Smudge cells LM Ql (Bld) 2+ [facility] Thin prep Papanicolaou smear with manual screeningOrdered By: Ian Lujan on 08-07-2023 Thin prep Papanicolaou smear with manual screening 8 5-15 [facility] .GFRon 07-18-2023 GFR 36 ml/min/1.73sqm Normal [facility] ([place]) Comment on above: Result Comment: GFR Population mean for , [...] 15 mL/min/1.73 square meters Performed By: #### P KASIA BROWN #### [address] [address] GFR Non- 30 ml/min/1.73sqm Normal [facility] ([place]) Comment on above: Result Comment: GFR Population mean for , [...] 15 mL/min/1.73 square meters Performed By: #### P KASIA BROWN #### [address] [address] .Manual Diffon 07-18-2023 Basophil %, Manual 0.0 % Normal 0.0-2.5 [facility] ([place]) Comment on above: Performed By: #### P RUR, CRUR #### [address] [address] Basophil, Abs Manual 0.0 10 3/mcL Normal 0.0-0.2 [facility] ([place]) Comment on above: Performed By: #### P RUR, CRUR #### [address] [address] Eosinophil %, Manual 1.0 % Normal 0.0-7.0 [facility] ([place]) Comment on above: Performed By: #### P RUR, CRUR #### [address] [address] Eosinophil, Abs Manual 0.5 10 3/mcL High 0.0-0.4 [facility] ([place]) Comment on above: Performed By: #### P RUR, CRUR #### [address] [address] Lymphocyte %, Manual 92.0 % High 10.0-50.0 [facility] ([place]) Comment on above: Performed By: #### P RUR, CRUR #### [address] [address] Lymphocyte, Abs Manual 49.4 10 3/mcL High 0.8-3.9 [facility] ([place]) Comment on above: Performed By: #### P RUR, CRUR #### [address] [address] Monocyte %, Manual 1.0 % Low 1.7-13.0 [facility] ([place] Comment on above: Performed By: #### P RUR, CRUR #### [address] [address] Monocyte, Abs Manual 0.6 10 3/mcL Normal 0.2-1.0 [facility] ([place]) Comment on above: Performed By: #### P RUR, CRUR #### [address] [address] Neutrophil %, Manual 6.0 % Low 37.0-80.0 [facility] ([place]) Comment on above: Performed By: #### P RUR, KASIA #### [address] [address] Neutrophil, Abs Manual 3.2 10 3/mcL Normal 2.9-6.2 [facility] ([place]) Comment on above: Performed By: #### P RUR, CRUR #### [place] [id number] Nucleated RBC 0.0 /100 WBC Normal [facility] ([place]) Comment on above: Performed By: #### P RUR, CRUR #### [place] [address] .Morphon 07-18-2023 Anisocytosis Ql (Bld) 1+ Normal [facility] ([place]) Comment on above: Performed By: #### P RUR, KASIA #### [place] [address] Ovalocytes 1+ Normal [facility] ([place]) Comment on above: Performed By: #### P RUR, CRBHAVIN #### [place] [address] Platelet Estimate Normal Normal [facility] ([place]) Comment on above: Performed By: #### P RUR, CRUR #### [place] [address] Poik 1+ Normal [facility] [facility] ([place]) Comment on above: Performed By: #### P RUR, CRUR #### [place] [address] CBCon 07-18-2023 Erythrocyte distribution width (RBC) [Ratio] 18.4 % High 11.5-14.5 [facility] ([place]) Comment on above: Performed By: #### P RUR, CRUR #### [place] [address] Hematocrit (Bld) [Volume fraction] 31.0 % Low 42.0-52.0 [facility] ([place]) Comment on above: Performed By: #### P RUR, KASIA #### [address] [address] Hgb 9.9 G/dL Low 14.0-18.0 [facility] ([place]) Comment on above: Performed By: #### P RUR, CRBHAVIN #### [address] [address] MCH (RBC) [Entitic mass] 26.8 pg Low 27.0-31.2 [facility] ([place]) Comment on above: Performed By: #### P RUR, KASIA #### [address] [address] MCHC 31.9 G/dL Normal 31.8-35.4 [facility] ([place]) Comment on above: Performed By: #### P RUR, KASIA #### [address] [address] MCV (RBC) [Entitic vol] 83.8 fL Normal 80.0-94.0 [facility] ([place]) Comment on above: Performed By: #### P RURKASIA #### [address] [address] Platelet 259 10 3/mcL Normal 130-400 [facility] ([place]) Comment on above: Performed By: #### P RUR, KASIA #### [address] [address] Platelet mean volume (Bld) [Entitic vol] 8.0 fL Normal 7.4-10.4 [facility] ([place]) Comment on above: Performed By: #### P RUR, KASIA #### [address] [address] RBC 3.70 10 6/mcL Low 4.04-6.13 [facility] ([place]) Comment on above: Performed By: #### P RUR, CRBHAVIN #### [address] [address] WBC 53.7 10 3/mcL Critically abnormal 4.6-10.8 [facility] ([place]) Comment on above: Performed By: #### KASIA SPEARS #### [address] [address] CMPon 07-18-2023 Albumin Level 3.6 G/dL Normal 3.4-4.8 [facility] ([place]) Comment on above: Performed By: #### P KASIA BROWN #### [address] [address] Albumin/Globulin [Mass ratio] 1.8 {ratio} Normal 1.1-2.5 [facility] ([place]) Comment on above: Performed By: #### KASIA SPEARS #### [address] [address] ALP [Catalytic activity/Vol] 131 U/L Normal 40-135 [facility] ([place]) Comment on above: Performed By: #### KASIA SPEARS #### [address] [address] ALT [Catalytic activity/Vol] 20 U/L Normal 16-63 [facility] ([place]) Comment on above: Performed By: #### KASIA SPEARS #### [address] [address] AST [Catalytic activity/Vol] 18 U/L Normal 10-40 [facility] ([place]) Comment on above: Performed By: #### P KASIA BROWN #### [address] [address] Bili Total 0.5 mg/dL Normal 0.2-1.0 [facility] ([place]) Comment on above: Result Comment: Use of this assay is not recommended for patients undergoing treatment with eltrombopag due to the potential for falsely elevated results. Performed By: #### P KASIA BROWN #### [address] [address] BUN/Creatinine Ratio 18 ratio Normal 7-27 [facility] ([place]) Comment on above: Performed By: #### P KASIA BROWN #### [address] [address] Calcium [Mass/Vol] 9.1 mg/dL Normal 8.4-10.2 [facility] ([place]) Comment on above: Performed By: #### KASIA SPEARS #### [address] [address] Chloride [Moles/Vol] 104 mmol/L Normal 98-107 [facility] ([place]) Comment on above: Performed By: #### KASIA SPEARS #### [address] [address] CO2 [Moles/Vol] 29 mmol/L Normal 23-31 [facility] ([place]) Comment on above: Performed By: #### KASIA SPEASR #### [address] [address] Creatinine [Mass/Vol] 2.11 mg/dL High 0.70-1.30 [facility] ([place]) Comment on above: Performed By: #### KASIA SPEARS #### [address] [address] Electrolyte Balance 6.0 mEq/L Normal 4.0-15.0 [facility] ([place]) Comment on above: Performed By: #### KASIA SPEARS #### [address] [address] Globulin 2.0 G/dL Normal [facility] ([place]) Comment on above: Performed By: #### AKSIA SPEARS #### [address] [address] Glucose [Mass/Vol] 99 mg/dL Normal 83-110 [facility] ([place]) Comment on above: Performed By: #### KASIA SPEARS #### [address] [address] Potassium [Moles/Vol] 5.1 mmol/L Normal 3.5-5.1 [facility] ([place]) Comment on above: Performed By: #### KASIA SPEARS #### [address] [place], [place] [address] Sodium [Moles/Vol] 139 mmol/L Normal 136-145 [facility] ([place]) Comment on above: Performed By: #### KASIA SPEARS #### [place] [id number] [place], [place] [address] Total Protein 5.6 G/dL Low 6.4-8.2 [facility] ([place]) Comment on above: Performed By: #### KASIA SPEARS #### [address] [address] Urea nitrogen [Mass/Vol] 38 mg/dL High 7-18 [facility] ([place]) Comment on above: Performed By: #### KASIA SPEARS #### [address] [address] Basilio 07-18-2023 Ferritin [Mass/Vol] 70.0 ng/mL Normal 26.0-388.0 [facility] ([place]) Comment on above: Performed By: #### KASIA SPEARS #### [address] [address] LABORATORYOrdered By: SYSTEM SYSTEM on 07-18-2023 Albumin BCP dye [Mass/Vol] 3.6 G/dL Normal 3.4 - 4.8 G/dL AO ADM SS Albumin/Globulin [Mass ratio] 1.8 {ratio} Normal 1.1 - 2.5 ratio AO ADM SS ALP [Catalytic activity/Vol] 131 U/L Normal 40 - 135 U/L AO ADM SS ALT With P-5'-P [Catalytic activity/Vol] 20 U/L Normal 16 - 63 U/L AO ADM SS Anisocytosis Ql (Bld) 1+ *NA* (07/18/23 11:25 AM) Invalid Interpretation Code AO Workflow SS AST With P-5'-P [Catalytic activity/Vol] 18 U/L Normal 10 - 40 U/L AO ADM SS Basophil %, Manual 0.0 % Normal 0.0 - 2.5 % AO Wo rkflow SS Basophil, Abs Manual 0.0 103/mcL Normal 0.0 - 0 .2 10^3/mcL AO Workflow SS Bilirubin [Mass/Vol] 0.5 mg/dL Normal 0.2 - 1 .0 mg/dL AO ADM SS Comment on above: Interpretive Data: U se of this assay is not recommended for patients undergoing treatment with eltrombopag due to the potential for falsely elevated results. Calcium [Mass/Vol] 9.1 mg/dL Normal 8.4 - 10. 2 mg/dL AO ADM SS Chloride [Moles/Vol] 104 mmol/L Normal 98 - 10 7 mmol/L AO ADM SS CO2 [Moles/Vol] 29 mmol/L Normal 23 - 31 mmol/L AO ADM SS Creatinine [Mass/Vol] 2.11 mg/dL High 0.70 - 1.30 mg/dL AO ADM SS Electrolyte Balance 6.0 mEq/L Normal 4.0 - 15 .0 mEq/L AO ADM SS Eosinophil %, Manual 1.0 % Normal 0.0 - 7.0 % AO Workflow SS Eosinophils (Bld) [#/Vol] 0.5 103/mcL High 0.0 - 0.4 10^3/mcL AO Workflow SS Erythrocyte distribution width (RBC) [Ratio] 18.4 % High 11.5 - 14.5 % AO Workflow SS Ferritin [Mass/Vol] 70.0 ng/mL Normal 26.0 - 3 88.0 ng/mL AO ADM SS GFR/1.73 sq M.predicted among blacks MDRD (S/P/Bld) [Vol rate/Area] 36 ml/min/1.73sqm Invalid Interpretation Code AO Chemistry S Comment on above: Interpretive Data: GFR Population mean for , Non- Americans Ages 20-29 = 116 mL/min/1.73 sq.m. Ages 30-39 = 107 mL/min/1.73 sq.m. Ages 40-49 = 99 mL/min/1.73 sq.m. Ages 50-59 = 93 mL/min/1.73 sq.m. Ages 60-69 = 85 mL/min/1.73 sq.m. Ages 70+ = 75 mL/min/1.73 sq.m. Chronic Kidney Disease: Less than 60 mL/min/1.73 square meters End Stage Renal Disease: Less than 15 mL/min/1.73 square meters GFR/1.73 sq M.predicted among non-blacks MDRD (S/P/Bld) [Vol rate/Area] 30 ml/min/1.73sqm Invalid Interpretation Code AO Chemistry S Comment on above: Interpretive Data: GFR Population mean for , Non- Americans Ages 20-29 = 116 mL/min/1.73 sq.m. Ages 30-39 = 107 mL/min/1.73 sq.m. Ages 40-49 = 99 mL/min/1.73 sq.m. Ages 50-59 = 93 mL/min/1.73 sq.m. Ages 60-69 = 85 mL/min/1.73 sq.m. Ages 70+ = 75 mL/min/1.73 sq.m. Chronic Kidney Disease: Less than 60 mL/min/1.73 square meters End Stage Renal Disease: Less than 15 mL/min/1.73 square meters Globulin 2.0 G/dL Invalid Interpretation Code AO ADM SS Glucose [Mass/Vol] 99 mg/dL Normal 83 - 110 mg/dL AO ADM SS Hematocrit (Bld) [Volume fraction] 31.0 % Low 42.0 - 52.0 % AO Workflow SS Hemoglobin (Bld) [Mass/Vol] 9.9 G/dL Low 14.0 - 18.0 G/dL AO Workflow SS Lymphocyte %, Manual 92.0 % High 10.0 - 50.0 % AO Workflow SS Lymphocyte, Abs Manual 49.4 103/mcL High 0.8 - 3.9 10^3/mcL AO Workflow SS MCH (RBC) [Entitic mass] 26.8 pg Low 27.0 - 31.2 pg AO Workflow SS MCHC 31.9 G/dL Normal 31.8 - 35.4 G/dL AO Workflow SS MCV (RBC) [Entitic vol] 83.8 fL Normal 80.0 - 94.0 fL AO Workflow SS Monocyte %, Manual 1.0 % Low 1.7 - 13.0 % AO W orkflow SS Monocyte, Abs Manual 0.6 103/mcL Normal 0.2 - 1 .0 10^3/mcL AO Workflow SS Neutrophil %, Manual 6.0 % Low 37.0 - 80.0 % AO Workflow SS Neutrophil, Abs Manual 3.2 103/mcL Normal 2.9 - 6.2 10^3/mcL AO Workflow SS Nucleated RBC 0.0 /100 WBC Invalid Interpretation Code AO Workflow SS Ovalocytes LM Ql (Bld) 1+ *NA* (07/18/23 11:25 AM) Invalid Interpretation Code AO Workflow SS Platelet Estimate Normal *NA* (07/18/23 11:25 AM) Invalid Interpretation Code AO Workflow SS Platelet mean volume (Bld) [Entitic vol] 8.0 fL Normal 7.4 - 10.4 fL AO Workflow SS Platelets (Bld) [#/Vol] 259 103/mcL Normal 130 - 400 10^3/mcL AO Workflow SS Poikilocytosis LM Ql (Bld) 1+ *NA* (07/18/23 11:25 AM) Invalid Interpretation Code AO Workflow SS Potassium [Moles/Vol] 5.1 mmol/L Normal 3.5 - 5.1 mmol/L AO ADM SS Protein [Mass/Vol] 5.6 G/dL Low 6.4 - 8.2 G/dL AO ADM SS RBC (Bld) [#/Vol] 3.70 106/mcL Low 4.04 - 6.1 3 10^6/mcL AO Workflow SS Sodium [Moles/Vol] 139 mmol/L Normal 136 - 145 mmol/L AO ADM SS Urea nitrogen [Mass/Vol] 38 mg/dL High 7 - 18 mg/dL AO ADM SS Urea nitrogen/Creatinine [Mass ratio] 18 ratio Normal 7 - 27 ratio AO ADM SS WBC (Bld) [#/Vol] 53.7 103/mcL Invalid Interpretation Code 4.6 - 10.8 10^3/mcL AO Workflow SS ICD REMOTE CHECKon 4 AV Delay Adaptive Paced Minimum (ms) 130 ms [facility] AV Delay Adaptive Rate Maximum (bpm) 130 {beats}/min [facility] AV Delay Adaptive Rate Minimum (bpm) 90 {beats}/min [facility] AV Delay Adaptive Sensed Minimum (ms) 100 ms [facility] AV Delay Adaptive Status ENABLED [facility] AV Delay Paced (ms) 100 ms [facility] AV Delay Sensed (ms) 70 ms [facility] Battery Voltage 3 V [facility] Jaxson LV Pacing Amplitude (volts) 1.75 V [facility] Jaxson LV Pacing Polarity BI [facility] Jaxson LV Pacing Pulse Width (ms) 1.0 ms [facility] Jaxson RA Pacing Amplitude (volts) 1.5 V [facility] Jaxson RA Pacing Polarity BI [facility] Jaxson RA Pacing Pulse Width (ms) 0.4 ms [facility] Jasxon RA Sensing Amplitude (mvolts) 0.3 mV [facility] Jaxson RA Sensing Blanking Period (ms) 150 ms [facility] Jaxson RA Sensing Polarity BI [facility] Jaxson RA Sensing Refractory Period (ms) 300 ms [facility] Jaxson RV Pacing Amplitude (volts) 2.0 V [facility] Jaxson RV Pacing Polarity BI [facility] Jaxson RV Pacing Pulse Width (ms) 0.4 ms [facility] Jaxson RV Sensing Amplitude (mvolts) 0.45 mV [facility] Jaxson RV Sensing Blanking Period (ms) 230 ms [facility] Jaxson RV Sensing Polarity BI [facility] Detection Configuration (Vent) 2 - Zone [facility] FastVT_Detection Interval 320 ms [facility] FastVT_Therapy Configuration 1 ATP(s) + 6 Shock(s) [facility] ICD AFIB DetectionStatus ENABLED [facility] ICD ATAF DetectionInterval ms 350 ms [facility] ICD ATAF DetectionStatus ENABLED [facility] ICD FastVT DetectionStatus ENABLED [facility] ICD-ADLRATE_BPM 85 {beats}/min [facility] ICD-AMS EPISODES 171 {beats}/min [facility] ICD-ATP Episodes (Vent) 0 [facility] ICD-ATRIALFIBRILLATION 0 Cl [facility] ICD-Device Lili ESTEBAN [facility] ICD-LEADIMPEDANCEATRIA L 399 ohm [facility] ICD-Percent Pacing (Vent) 98.27 % [facility] ICD-PMT Intervention Enabled [facility] ICD-PVC Intervention Enabled [facility] ICD-Rate Modulation Acceleration Reaction 30 s [facility] ICD-Rate Modulation Deceleration Exercise [facility] ICD-Rate Modulation Cowley 3 [facility] ICD-Rate Modulation Threshold Medium High [facility] ICD-Shocks Aborted (Vent) 0 [facility] [id number] 0 [facility] ICD-SHOCKSABORTED 0 [facility] ICD-SHOCKSDELIVEREDVEN TRICULAR 0 [facility] ICD-Ventricular Fibrillation 0 [facility] ICD-VVDELAY_MS 0 ms [facility] Implant Date 09/26/2022 [facility] Lead Impedance (LV) 836 ohm [facility] Lead Impedance (RV) 209 ohm [facility] Lead Impedance High Voltage 48 ohm [facility] Lead1 Lili MCKEONT [facility] Lead2 Lili ESTEBAN [facility] Lead3 Lili ESTEBAN [facility] Location LV [facility] Location RA [facility] Location RV [facility] Lower Rate (bpm) 60 {beats}/min [facility] LV PACING % 98.23 % [facility] Max Sensor Rate (bpm) 130 {beats}/min [facility] MDT_PROG_TACHY_ZONE_DE TECTIONS_STATUS ENABLED [facility] Model [id number] [place] XT HF Quad MATTRESS STRIPPER-D MRI [facility] Model 4298 Attain Performa [facility] Model 5076 CapSureFix Novus [facility] Model 6947M Sprint Quattro Secure [facility] Pacing Mode DDDR [facility] Serial Number [id number] [facility] Serial Number [id number] [facility] Serial Number [id number] [facility] Serial Number [id number] [facility] Test Charge Energy 18.0 J [facility] Test Charge Time 3.7 s [facility] Therapy Status (Vent) Enabled [facility] Thresh LV Capture Amplitude (volts) 1.125 V [facility] Thresh LV Capture Duration (ms) 1.0 ms [facility] Thresh RA Capture Amplitude (volts) 0.625 V [facility] Thresh RA Capture Duration (ms) 0.4 ms [facility] Thresh RA Sensing Amplitude (mvolts) 3.1 mV [facility] Thresh RV Capture Amplitude (VOLTS) 0.75 V [facility] Thresh RV Capture Duration (MS) 0.4 ms [facility] Thresh RV Sensing Amplitude (MVOLTS) 8.1 mV [facility] Tracking Rate (bpm) 130 {beats}/min [facility] VF Zone Detection Interval 320 ms [facility] VF Zone Therapy Configuration 1 ATP(s) + 6 Shock(s) [facility] No Panel Informationon 07-07 BLANK _ [facility] ICD-ATRIALTACHYCARDIA 0 [facility] ICD-Fast Ventricular Tachycardia 0 [facility] Implant Date 09/27/2015 [facility] No Panel InformationOrdered By: Ean Bush on 06-21-2023 CA 19-9 Antigen 34 U/mL 0-35 [facility] Comment on above: [facility] El ectrochemiluminescence Immunoassay(ECLIA)Values obtained with different assay methods or kits cannotbe used interchangeably. Results cannot be interpreted asabsolute evidence of the presence or absence of malignantdisease.Performed at: [place] [id number] [place], [place] [id number] Director: Sharad Armando PhD, Phone: [phone] Bianca 06-19-2023 CN Office Visit (AGGENS 3) -------- ETHANJAIME Gab ([id number]) 1940 M Date Time Provider Department 06/19/23 11:30 AM KATE AGUIRRE3 During your visit today, we recorded the following information about you: Pulse Blood pressure Weight Height 65/minute 130/80 77.1 kg 1.778 m Kate Aguirre MD 06/22/2023 2:36 PM Signed [facility] SURGERY PROGRESS NOTE Subjective INTERVAL HISTORY OF PRESENT ILLNESS: Continues to be asymptomatic and without complaints Had EGD/EUS with Dr. Pineda with biopsy of his enlarged lymph nodes and biopsy of an ampullary polyp Biopsy consistent with pyloric gland adenoma and lymph node biopsies negative for malignancy. No biliary obstruction clinically or biochemically. Objective PHYSICAL EXAM: BP 130/80 Pulse 65 Ht 5' 10" (1.78m) Wt 170 lb (77.1kg) SpO2 99% BMI 24.39 kg/(m2). Physical Exam Performed GENERAL: Alert, no distress, cooperative LUNGS: No respiratory distress ABDOMEN: Soft, nontender The remainder of the physical exam is noncontributory. 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 --Discussed with Dr. Pineda plan for endoscopic surveillance --Will defer to Dr. 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 - tamsulosin (FLOMAX) 0.4 mg Take 0.4 mg by mouth once daily. - nortriptyline (PAMELOR) 50 mg capsule Take 50 mg by mouth twice daily. - carvedilol (COREG) 25 mg tablet Take 1 tablet by mouth twice daily with meals. - atorvastatin (LIPITOR) 20 mg tablet Take 1 tablet by mouth once daily. - OTC NUTRITIONAL SUPPLEMENT 2 tablets once daily. [employer] Renew - ZINC ACETATE ORAL Take by mouth once daily. - MULTI-VITAMIN ORAL Take by mouth. - CHOLECALCIFEROL, VITAMIN D3, (VITAMIN D3 ORAL) Take 1,000 Units by mouth once daily. - phsptwohrcn-K4-Fhvakncoe serr 1,500-400-100 mg-unit-mg tab Take 1 tablet by mouth once daily. 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] 02/19/2015 Cellulitis due to MRSA [L03.90, B95.62] 08/05/2015 Syncope [R55] 09/21/2015 SUMMARY 09/22/2015 Non-ischemic cardiomyopathy (HCC) [I42.8] 09/22/2015 Chronic systolic heart failure (HCC) [I50.22] 09/24/2015 Biventricular ICD (implantable cardioverter-def* 016 Renal insufficiency [N28.9] 07/19/2016 Carotid stenosis [I65.29] Malignant neoplasm of left kidney, except renal*10/06/2016 Essential hypertension [I10] 10/06/2016 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] 07/10/2017 Peripheral polyneuropathy (HCC) [G62.9] 07/10/2017 Abnormality of gait [R26.9] 07/10/2017 Disturbance of skin sensation [R20.9] 07/10/2017 Pain in both lower extremities [M79.604, M79.60*07/10/2017 Abnormal finding of blood chemistry [R79.9] 07/10/2017 Abnormal glucose [R73.09] 07/10/2017 CLL (chronic lymphocytic leukemia) (HCC) [C91.1*04/02/2019 History of prostate cancer [Z85.46] 04/02/2019 VT (ventricular tachycardia) (HCC) [I47.20] 10/05/2022 Type 2 diabetes mellitus with hyperosmolarity w*10/05/2022 Pre-op examination [Z01.818] 05/30/2023 Subdural hematoma (HCC) [S06.5XAA] 05/30/2023 Hyperlipidemia [E78.5] 05/30/2023 Stage 3 chronic kidney disease (HCC) [N18.30] 03/08/2023 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 ANES POSTPROC EVALon 024 ANES POSTPROC EVAL HNO ID: [id number] Author: EAN SANCHEZ MD Service: Anesthesiology Author Type: Physician Type: Anesthesia Postprocedure Evaluation Filed: 05/30/2023 14:19 Note Text: POST ANESTHESIA EVALUATION NOTE : 1940 Procedure Summary Date: 05/30/23 Room / Location: [facility] Anesthesia Start: 1125 Anesthesia Stop: 1216 Procedure: EGD - THERAPEUTIC, EUS, OR TUBE INTERVENTIONS Diagnosis: Ampullary carcinoma (HCC) (Duodenal mucosal mass/polyp found on endoscopy) Scheduled Providers: Javon Pineda MD Responsible Provider: Ean Sanchez MD Anesthesia Type: MAC ASA Status: 4 Anesthesia Type: MAC Last Vitals Vitals Value Taken Time BP 173/79 05/30/23 1245 Temp 36.5 ?C (97.7 ?F) 05/30/23 1231 Pulse 63 05/30/23 1245 Resp 16 05/30/23 1245 SpO2 96 % 05/30/23 1245 Post Anesthesia Patient Status Patient Evaluation: bedside. Pulmonary Status: breathing comfortably on supplemental oxygen Cardiovascular Status: stable. Intraoperative Events: no significant anesthesia events Recommendation: continue current plan of care. Anesthesia Observations No Documentation SIGNATURE: Ean Sanchez MD PATIENT NAME: Jaime Ann DATE: May 30, 2023 TIME: 2:19 PM CSN: [id number] Normal [facility] ANES PRE-OPon 05-30-2023 ANES PRE-OP HNO ID: [id number] Author: EAN SANCHEZ MD Service: Anesthesiology Author Type: Physician Type: Anesthesia Preprocedure Evaluation Filed: 05/30/2023 10:06 Note Text: ANESTHESIOLOGY DAY OF SURGERY NOTE : 1940 Procedure Information Date/Time: 05/30/23 1000 Scheduled providers: Javon Pineda MD Procedure: EGD - THERAPEUTIC, EUS, OR TUBE INTERVENTIONS Location: [facility] Estimated body mass index is 24.39 kg/m? as calculated from the following: Height as of 05/01/23: 177.8 cm (5' 10"). Weight as of 05/01/23: 77.1 kg (170 lb). Most recent hematocrit and potassium results: Hematocrit 34.0 09/26/2022 Potassium 4.9 04/12/2023 Relevant Problems CARDIO (+) Carotid stenosis (+) Essential hypertension (+) Left bundle branch block (+) Splenic artery aneurysm (HCC) ENDO (+) Type 2 diabetes mellitus with hyperosmolarity without coma, unspecified whether mcc insulin use (HCC) -RENAL (+) Malignant neoplasm of left kidney, except renal pelvis (HCC) (+) Renal insufficiency (+) Stage 3 chronic kidney disease (HCC) NEURO-PSYCH (+) History of prostate cancer (+) Hx of ventricular tachycardia Other (+) CLL (chronic lymphocytic leukemia) ([facility]) I - PHYSICAL EVALUATION AIRWAY Patient intubated: No. Tracheostomy tube not present Mallampati: II. TM distance: >3 FB. Neck ROM: full ROM without neurological symptoms. Mouth opening: adequate. Short neck: no. Thick neck: no Garner present: no Microretrognathia/Micron agthia/Recessed Chin: No DENTAL Dental findings: poor dentition. Additional exam findings: no II - ANESTHESIA PLAN ASA Score: 4 Anesthetic Plan: MAC NPO Status: adequate Anesthetic plan additional comments: HX V Tach CLL CHF . Beta Domingo Administration of chronic beta domingo medication not planned. Reasons for not administering beta domingo perioperatively: other Monitoring Plan Monitoring plan: standard ASA. Post Procedure Analgesic Plan Postoperative analgesic plan: parenteral or oral opioids and per surgical service. Informed Consent Anesthetic risks, benefits, alternatives, personnel and consent discussed: yes. Patient / Responsible [employer] Party agrees to proceed: yes Patient / Surrogate agrees to blood products: blood products not planned Discussed the possibility of lip / dental damage: yes Vitals Value Taken Time BP 165/77 05/30/23930 Pulse 74 05/30/23930 Resp 23 05/30/23930 Temp 36.1 ?C (97 ?F) 05/30/23930 SpO2 97 % 05/30/23930 Outpatient Medications as of 05/30/2023 Medication Sig - sacubitril-valsartan (ENTRESTO) 49-51 mg tablet Take 1 tablet by mouth twice daily. - nortriptyline (PAMELOR) 50 mg capsule Take 50 mg by mouth twice daily. - carvedilol (COREG) 25 mg tablet Take 1 tablet by mouth twice daily with meals. - atorvastatin (LIPITOR) 20 mg tablet Take 1 tablet by mouth once daily. - ZINC ACETATE ORAL Take by mouth once daily. - MULTI-VITAMIN ORAL Take by mouth. - CHOLECALCIFEROL, VITAMIN D3, (VITAMIN D3 ORAL) Take 1,000 Units by mouth once daily. - ccuhcuzodap-F7-Kuouqjsnf serr 1,500-400-100 mg-unit-mg tab Take 1 tablet by mouth once daily. - tamsulosin (FLOMAX) 0.4 mg Take 0.4 mg by mouth once daily. (Patient not taking: Reported on 05/01/2023) - OTC NUTRITIONAL SUPPLEMENT 2 tablets once daily. Nerve Renew Facility-Administered Medications as of 05/30/2023 Medication Dose Route Frequency - lidocaine 10 mg/mL (1 %) 1-2 mg injection (XYLOCAINE) 0.1-0.2 mL INTRADERMAL PRN - NaCl 0.9% iv infusion 30 mL/hr INTRAVENOUS CONTINUOUS I have interviewed and examined the patient. I have reviewed the medical record and/or the pre-anesthesia evaluation, pertinent labs, and test results. This contains updated information obtained within 48 hours of Surgery/Procedure. SIGNATURE: Ean Sanchez MD PATIENT NAME: Jaime Ann DATE: May 30, 2023 TIME: 10:03 AM CSN: [id number] [facility] CYTOLOGY NON-GYNon CASE REPORT [facility] Comment on above: Order Comment: Speci men Type: SPECIMEN OBTAINED BY ASPIRATION Ordering Facility: [facility] Address: [address] [place] [address] Result Comment: [facility] Cytology Report Case: [id number] Authorizing Provider: Javon Pineda MD Collected: 05/30/2023 12:10 PM Ordering Location: [facility] Received: 05/31/2023 03:16 AM Pathologist: Linda Hines MD Specimens: A) - PORTAL REGION FINE NEEDLE ASPIRATION, MARCI PORTAL HEPATIC LYMPH NODE #1 B) - PORTAL REGION FINE NEEDLE ASPIRATION, MARCI PORTAL HEPATIC LYMPH NODE #2 Performed By: #### C YTONON #### [facility] CLIA [id number] [address] FINAL DIAGNOSIS [facility] Comment on above: Order Comment: Speci men Type: SPECIMEN OBTAINED BY ASPIRATION Ordering Facility: [facility] Address: [address] [place] [address] Result Comment: A - PORTAL REGION FINE NEEDLE ASPIRATION - MARCI PORTAL HEPATIC LYMPH NODE #1 Negative for carcinoma. Heterogeneous lymphoid sample. B - PORTAL REGION FINE NEEDLE ASPIRATION - MARCI PORTAL HEPATIC LYMPH NODE #2 Negative for malignant cells. Heterogeneous lymphoid sample. [place] ductal cells. The following cell blocks were associated with this case: A1 Cell Block, Alcohol Fixed B1 Cell Block, Alcohol Fixed Performed By: #### C YTONON #### [facility] CLIA [id number] [address] FINAL PERFORMING LAB Normal [facility] Comment on above: Order Comment: Speci men Type: SPECIMEN OBTAINED BY ASPIRATION Ordering Facility: [facility] Address: [address] [place] [address] Result Comment: Tech nical component, psychology assistant screening performed at [facility], [address] [place] [address] CLIA# [id number] Diagnostic interpretation performed at [facility], [address] [place] [address] CLIA# [id number] Bisque Grader: Yovani Luna M.D. Performed By: #### C YTONON #### [facility] CLIA [id number] [address] GROSS DESCRIPTION [facility] Comment on above: Order Comment: Speci men Type: SPECIMEN OBTAINED BY ASPIRATION Ordering Facility: [facility] Address: [address] [place] [address] Result Comment: A. P ORTAL REGION FINE NEEDLE ASPIRATION 30 cc clear light pink CytoLyt with scant particles. ThinPrep and Cell Block prepared and 2 smears (1 air dried and 1 fixed). B. PORTAL REGION FINE NEEDLE ASPIRATION 30 cc clear light pink CytoLyt with scant particles. ThinPrep and Cell Block prepared and 2 smears (1 air dried and 1 fixed). Performed By: #### C YTONON #### [facility] CLIA [id number] [address] [place] [address] HISTORY PHYSICALon HISTORY PHYSICAL HNO ID: [id number] Author: TRISTA MCDONALD APRN.CNP Service: Anesthesiology Author Type: Nurse Practitioner Type: H&P Filed: 05/30/2023 09:45 Note Text: HISTORY AND PHYSICAL EXAMINATION SERVICE DATE: 05/30/2023 SERVICE TIME: 9:36 AM PRIMARY CARE PHYSICIAN: Kenn Turcios NP, NURSING UNIT CLERK REASON FOR VISIT: The reason for this visit is To perform a comprehensive review of the patients past medical history, assess their current health status and obtain any additional testing required based on anesthesia guidelines. To assess and identify potential anesthesia problems, particularly those that may suggest potential complications or contraindications to the planned procedure. The patient has the following: ACTIVE PROBLEM LIST Left Bundle Branch Block Near Syncope Hx of Ventricular Tachycardia Splenic Artery Aneurysm (Hcc) Cellulitis Due to Mrsa Syncope Summary Non-Ischemic Cardiomyopathy (Hcc) Chronic Systolic Heart Failure (Hcc) Biventricular Icd (Implantable Cardioverter-Defibrillat or) in Place Renal Insufficiency Carotid Stenosis Malignant Neoplasm of Left Kidney, Except Renal Pelvis (Hcc) Essential Hypertension Small Fiber Neuropathy Peripheral Polyneuropathy Abnormality of Gait Disturbance of Skin Sensation Pain in Both Lower Extremities Abnormal finding of blood chemistry Abnormal Glucose Cll (Chronic Lymphocytic Leukemia) (Hcc) History of Prostate Cancer Vt (Ventricular Tachycardia) (Hcc) Type 2 Diabetes Mellitus With Hyperosmolarity Without Coma, 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 Patient here for routine Upper GI Endoscopy screening. Patient has had previous EGD's. He believes his last one was last year, but is here today for EUS as well. Patient denies any N/V/D or constipation. Denies any abdominal pain. Denies any melena, hematochezia, or hematemesis. Patient denies any other problems at this time. Denies any family history of Colon cancer or other Gastric ca. Patient agreed to planned procedure. METS: Climb a flight of stairs or walk up a hill (5.50 METs) Patient denies any chest pain or undue shortness of breath with the above physical activity. Patient denies any CP/SOB with above activity. PAST MEDICAL HISTORY Diagnosis Date Chronic lymphocytic leukemia (HCC) HTN (hypertension) Liver cyst Non-ischemic cardiomyopathy (HCC) Peripheral neuropathy Prostate cancer (HCC) s/p external radiation. no resection Splenic artery aneurysm (HCC) Subdural hematoma (HCC) summer 2015, after heart stopped and fell, s/p evacuation Ventricular tachycardia (HCC) in 1983 and 2015 PAST SURGICAL HISTORY Procedure Laterality Date MATTRESS STRIPPER ICD (ICDCRT) 09/2015 FASCT PALM W/WO Z-PLASTY TISSUE REARGMT/SKN GRFT Left 04/04/2019 Left palmar fasciectomy HAND SURGERY HX 2014 detrupens contracture PAST SURGICAL HISTORY OF Right CMC arthroplasty PAST SURGICAL HISTORY OF percutaneous splenic artery aneurysm repair VASCULAR EMBOLIZATION OR OCCLUSION ARTERIAL RSANDI FAMILY HISTORY Problem Relation Age of Onset Stroke Mother Hypertension Mother Diabetes Mother Diabetes Father Ischemic Heart Disease Father SOCIAL HISTORY: Social History Tobacco Use Smoking status: Never Smokeless tobacco: Never Vaping Use Vaping Use: Never used Substance Use Topics Alcohol use: Yes Comment: rare use Drug use: No Prior to Admission medications as of 05/30/23 0931 Medication Sig Last Dose Taking sacubitril-valsartan (ENTRESTO) 49-51 mg tablet Take 1 tablet by mouth twice daily. 05/29/2023 Yes nortriptyline (PAMELOR) 50 mg capsule Take 50 mg by mouth twice daily. 05/29/2023 Yes carvedilol (COREG) 25 mg tablet Take 1 tablet by mouth twice daily with meals. 05/29/2023 Yes atorvastatin (LIPITOR) 20 mg tablet Take 1 tablet by mouth once daily. 05/29/2023 Yes ZINC ACETATE ORAL Take by mouth once daily. 05/29/2023 Yes MULTI-VITAMIN ORAL Take by mouth. 05/29/2023 Yes CHOLECALCIFEROL, VITAMIN D3, (VITAMIN D3 ORAL) Take 1,000 Units by mouth once daily. 05/29/2023 Yes wbokugxkibs-Z2-Ehbbkdoso serr 1,500-400-100 mg-unit-mg tab Take 1 tablet by mouth once daily. 05/29/2023 Yes tamsulosin (FLOMAX) 0.4 mg Take 0.4 mg by mouth once daily. Patient not taking: Reported on 05/01/2023 OTC NUTRITIONAL SUPPLEMENT 2 tablets once daily. Nerve Renew No medication comments found. ALLERGIES Allergen Reactions Lisinopril Cough REVIEW OF SYSTEMS: PAIN ASSESSMENT: Pain Pain Level: 0 Pain Assessment: Assessment Tool: Verbal (Numeric Rating or Visual Analog Scale) General: Denies fever, chills, and unexpected weight change. Neuro: Denies dizziness and headaches. Respiratory: Denies SOB. Cardiovascular: Denies CP and palpita (more content not included)... [facility] SURGICAL PATHOLOGYon CASE REPORT [facility] Comment on above: Order Comment: Speci men Type: TISSUE SPECIMEN Ordering Facility: [facility] Address: [address] [place] [address] Result Comment: Surg ica Pathology Report Case: [id number] Authorizing Provider: Javon Pineda MD Collected: 05/30/2023 11:39 AM Ordering Location: [facility] Received: 05/31/2023 11:07 AM Pathologist: Mark Ledezma MD Specimen: AMPULLA BIOPSY, ampulla polyp boipsy Performed By: #### S #### [facility] CLIA [id number] [address] DIAGNOSIS COMMENT No high-grade dyspla melva is identified. The case was presented at the [facility] Gastrointestinal Pathology consensus conference on 06/05/2023 via telepathology, and there was agreement on this interpretation (by amongst others Drs. eYhuda Guerrero and Sukumar Hutton.) [facility] Comment on above: Order Comment: Speci men Type: TISSUE SPECIMEN Ordering Facility: [facility] Address: [address] [place] [address] Performed By: #### S #### [facility] CLIA [id number] [address] [place] [address] FINAL DIAGNOSIS [facility] Comment on above: Order Comment: Speci men Type: TISSUE SPECIMEN Ordering Facility: [facility] Address: [address] [place] [address] Result Comment: A. A mpulla, polyp, biopsy: - Pyloric gland adenoma, (see comment). Performed By: #### S #### [facility] CLIA [id number] [address] [place] [address] FINAL PERFORMING LAB [facility] Comment on above: Order Comment: Speci men Type: TISSUE SPECIMEN Ordering Facility: [facility] Address: [address] [place] [address] Result Comment: Diag nostic interpretation performed at [facility], [address] [place] [address] CLIA# [id number] Bisque Grader: Yovani Luna M.D. Performed By: #### S #### [facility] CLIA [id number] [address] [place] [address] GROSS DESCRIPTION [facility] Comment on above: Order Comment: Speci men Type: TISSUE SPECIMEN Ordering Facility: [facility] Address: [address] [place] [address], [place] [address] Result Comment: A. A MPULLA BIOPSY Received in formalin labeled "ampulla polyp biopsy" are two pieces of harry, soft tissue aggregating to 0.8 x 0.2 x 0.2 cm. Totally submitted in one cassette. Gross examination performed at [facility], [address] [place] [address] CLIA#[id number] [facility] May 31, 2023 2:47 PM Performed By: #### S #### [facility] CLIA [id number] [address] [place] [address] [place] Upper EUSon 05-30-2023 Upper EUS [facility] Gastrointestinal Endoscopy Patient Name: Jaime Ann Procedure Date: 05/30/2023 11:08 AM Date of : 1940 Admit Type: Outpatient Room: [place] [address] Gender: Male Note Status: Finalized Attending MD: Javon Pineda MD, [id number] Procedure: Upper EUS Indications: Duodenal mucosal mass/polyp found on endoscopy Providers: Javon Pineda MD Patient Profile: This is an 82 year old male. Refer to note in patient chart for documentation of history and physical. Referring Physician: Kate Aguirre MD (Referring MD) Medicines: Monitored Anesthesia Care Complications: No immediate complications. Procedure: Pre-Anesthesia Assessment: - Prior to the procedure, a History and Physical was performed, and patient medications and allergies were reviewed. The patient's tolerance of previous anesthesia was also reviewed. The risks and benefits of the procedure and the sedation options and risks were discussed with the patient. All questions were answered, and informed consent was obtained. Prior Anticoagulants: The patient has taken no anticoagulant or antiplatelet agents. ASA Grade Assessment: III - A patient with severe systemic disease. After reviewing the risks and benefits, the patient was deemed in satisfactory condition to undergo the procedure. After obtaining informed consent, the endoscope was passed under direct vision. Throughout the procedure, the patient's blood pressure, pulse, and oxygen saturations were monitored continuously. The Endoscope was introduced through the mouth, and advanced to the second part of duodenum. I was present and participated during the entire procedure, including non-ny portions, and during the administration and monitoring of Moderate Sedation. The Duodenoscope was introduced through the mouth, and advanced to the second part of duodenum. I was present and participated during the entire procedure, including non-ny portions, and during the administration and monitoring of Moderate Sedation. The Endosonoscope was introduced through the and advanced to the. I was present and participated during the entire procedure, including non-ny portions, and during the administration and monitoring of Moderate Sedation. After obtaining informed consent, the endoscope was passed under direct vision. Throughout the procedure, the patient's blood pressure, pulse, and oxygen saturations were monitored continuously.The upper GI endoscopy was accomplished without difficulty. The patient tolerated the procedure well. Moderate Sedation: Exam was performed under monitored anesthesia care (MAC) Findings: ENDOSCOPIC FINDING: : The examined esophagus was normal. The entire examined stomach was normal. A single 8 mm sessile polyp with no bleeding was found at the major papilla. Biopsies were taken with a cold forceps for histology. Verification of patient identification for the specimen was done. Estimated blood loss was minimal. ENDOSONOGRAPHIC FINDING: : There was no sign of significant endosonographic abnormality in the entire pancreas. No masses, the pancreatic duct was regular in contour. A hypoechoic round mass was identified endosonographically in the ampulla. The mass measured 8 mm by 5 mm in maximal cross-sectional diameter with possible extension into distal CBD. Two enlarged lymph nodes were visualized in the amelia hepatis region. The largest measured 25 (16 mm and 25 mm) mm in maximal cross-sectional diameter. The nodes were triangular, hypoechoic and had well defined margins. Fine needle biopsy was performed. Color Doppler imaging was utilized prior to needle puncture to confirm a lack of significant vascular structures within the needle path. Two passes were made with the 22 gauge HunterOnCore biopsy needle using a transduodenal approach. A visible core of tissue was obtained. Preliminary cytologic examination and touch preps were performed. Final cytology results are pending. Verification of patient identification for the specimen was done. Estimated blood loss was minimal. Due to technical issues EUS pictures were not saved. Estimated Blood Loss: Estimated blood loss: none. Impression: - Normal esophagus. - Normal stomach. - A single duodenal polyp. Biopsied. - There was no sign of significant pathology in the entire pancreas. - A 8 mm hypoecheic lesion with possible extension into distal CBD was found in the ampulla. - Two enlarged lymph nodes were visualized in the amelia hepatis region. Fine needle biopsy performed. Recommendation: - Discharge patient to home. - Resume previous diet. - Continue present medications. - Await cytology results and await path results. Procedure Code(s): --- Professional --- 59782, Esophagogastroduodenosco py, flexible, transoral; with transendoscopic ultrasound-guided (more content not included)... [facility] .GFRon 05-28-2023 GFR Non- 32 ml/min/1.73sqm Normal [facility] ([place]) Comment on above: Result Comment: GFR Population mean for , [...] 15 mL/min/1.73 square meters Performed By: #### C BC, GFR, DIFF, URIC, MORPH, BMP, VIDH #### [address] [address] #### PTH #### [place] [address] GFR 39 ml/min/1.73sqm Normal [facility] ([place]) Comment on above: Result Comment: GFR Population mean for , [...] 15 mL/min/1.73 square meters Performed By: #### C BC, GFR, DIFF, URIC, MORPH, BMP, VIDH #### [place] [address] #### PTH #### [place] [address] .Manual Diffon 05-28-2023 Basophil %, Manual 1.0 % Normal 0.0-2.5 [facility] ([place]) Comment on above: Performed By: #### C BC, GFR, DIFF, URIC, MORPH, BMP, VIDH #### [place] [address] #### PTH #### [place] [address] Basophil, Abs Manual 0.6 10 3/mcL High 0.0-0.2 [facility] ([place]) Comment on above: Performed By: #### C BC, GFR, DIFF, URIC, MORPH, BMP, VIDH #### [place] [address] #### PTH #### [place] [address] Eosinophil %, Manual 1.0 % Normal 0.0-7.0 [facility] ([place]) Comment on above: Performed By: #### C BC, GFR, DIFF, URIC, MORPH, BMP, VIDH #### [place] [address] #### PTH #### [place] [address] Eosinophil, Abs Manual 0.6 10 3/mcL High 0.0-0.4 [facility] ([place]) Comment on above: Performed By: #### C BC, GFR, DIFF, URIC, MORPH, BMP, VIDH #### [place] [address] #### PTH #### [place] [address] Lymphocyte %, Manual 71.0 % High 10.0-50.0 [facility] ([place]) Comment on above: Performed By: #### C BC, GFR, DIFF, URIC, MORPH, BMP, VIDH #### [address] [address] #### PTH #### [address] [address] Lymphocyte, Abs Manual 43.2 10 3/mcL High 0.8-3.9 [facility] ([place]) Comment on above: Performed By: #### C BC, GFR, DIFF, URIC, MORPH, BMP, VIDH #### [place] [address] #### PTH #### [place] [address] Monocyte %, Manual 0.0 % Low 1.7-13.0 [facility] ([place]) Comment on above: Performed By: #### C BC, GFR, DIFF, URIC, MORPH, BMP, VIDH #### [place] [address] #### PTH #### [address] [address] Monocyte, Abs Manual 0.0 10 3/mcL Low 0.2-1.0 [facility] ([place]) Comment on above: Performed By: #### C BC, GFR, DIFF, URIC, MORPH, BMP, VIDH #### [place] [address] #### PTH #### [address] [address] Neutrophil %, Manual 27.0 % Low 37.0-80.0 [facility] ([place]) Comment on above: Performed By: #### C BC, GFR, DIFF, URIC, MORPH, BMP, VIDH #### [place] [address] #### PTH #### [address] [address] Neutrophil, Abs Manual 16.5 10 3/mcL High 2.9-6.2 [facility] ([place]) Comment on above: Performed By: #### C BC, GFR, DIFF, URIC, MORPH, BMP, VIDH #### [address] [address] #### PTH #### [address] [address] Nucleated RBC 0.0 /100 WBC Normal [facility] ([place]) Comment on above: Performed By: #### C BC, GFR, DIFF, URIC, MORPH, BMP, VIDH #### [place] [address] #### PTH #### [address] [address] .Morphon 05-28-2023 Acanthocytes 1+ Normal [facility] ([place]) Comment on above: Performed By: #### C BC, GFR, DIFF, URIC, MORPH, BMP, VIDH #### [place] [address] #### PTH #### [place] [address] Anisocytosis Ql (Bld) 1+ Normal [facility] ([place]) Comment on above: Performed By: #### C BC, GFR, DIFF, URIC, MORPH, BMP, VIDH #### [address] [address] #### PTH #### [place] [address] Hypochrom 1+ Normal [facility] ([place]) Comment on above: Performed By: #### C BC, GFR, DIFF, URIC, MORPH, BMP, VIDH #### [address] [address] #### PTH #### [address] [address] Ovalocytes 1+ Normal [facility] ([place]) Comment on above: Performed By: #### C BC, GFR, DIFF, URIC, MORPH, BMP, VIDH #### [place] [address] #### PTH #### [address] [address] Platelet Estimate Normal Normal [facility] ([place]) Comment on above: Performed By: #### C BC, GFR, DIFF, URIC, MORPH, BMP, VIDH #### [address] [address] #### PTH #### [address] [address] Smudge Cells 2+ Normal [facility] ([place]) Comment on above: Performed By: #### C BC, GFR, DIFF, URIC, MORPH, BMP, VIDH #### [address] [address] #### PTH #### [address] [address] BMPon 05-28-2023 BUN/Creatinine Ratio 18 ratio Normal 7-27 [facility] ([place]) Comment on above: Performed By: #### C BC, GFR, DIFF, URIC, MORPH, BMP, VIDH #### [address] [address] #### PTH #### [address] [address] Calcium [Mass/Vol] 9.2 mg/dL Normal 8.4-10.2 [facility] ([place]) Comment on above: Performed By: #### C BC, GFR, DIFF, URIC, MORPH, BMP, VIDH #### [address] [address] #### PTH #### [address] [address] Chloride [Moles/Vol] 107 mmol/L Normal 98-107 [facility] ([place]) Comment on above: Performed By: #### C BC, GFR, DIFF, URIC, MORPH, BMP, VIDH #### [address] [address] #### PTH #### [address] [address] CO2 [Moles/Vol] 30 mmol/L Normal 23-31 [facility] ([place]) Comment on above: Performed By: #### C BC, GFR, DIFF, URIC, MORPH, BMP, VIDH #### [address] [address] #### PTH #### [address] [address] Creatinine [Mass/Vol] 2.01 mg/dL High 0.70-1.30 [facility] ([place]) Comment on above: Performed By: #### C BC, GFR, DIFF, URIC, MORPH, BMP, VIDH #### [place] [address] #### PTH #### [address] [address] Electrolyte Balance 10.0 mEq/L Normal 4.0-15.0 [facility] ([place]) Comment on above: Performed By: #### C BC, GFR, DIFF, URIC, MORPH, BMP, VIDH #### [place] [address] #### PTH #### [address] [address] Glucose [Mass/Vol] 115 mg/dL High 83-110 [facility] ([place]) Comment on above: Performed By: #### C BC, GFR, DIFF, URIC, MORPH, BMP, VIDH #### [place] [address] #### PTH #### [address] [address] Potassium [Moles/Vol] 4.7 mmol/L Normal 3.5-5.1 [facility] ([place]) Comment on above: Performed By: #### C BC, GFR, DIFF, URIC, MORPH, BMP, VIDH #### [place] [address] #### PTH #### [address] [address] Sodium [Moles/Vol] 147 mmol/L High 136-145 [facility] ([place]) Comment on above: Performed By: #### C BC, GFR, DIFF, URIC, MORPH, BMP, VIDH #### [address] [address] #### PTH #### [address] [address] Urea nitrogen [Mass/Vol] 36 mg/dL High 7-18 [facility] ([place]) Comment on above: Performed By: #### C BC, GFR, DIFF, URIC, MORPH, BMP, VIDH #### [place] [address] #### PTH #### [address] [address] CBCon 05-28-2023 RBC 3.71 10 6/mcL Low 4.04-6.13 [facility] ([place]) Comment on above: Result Comment: crit ical wbc called to Carin snow 05/28/2023 12:25:50 EST Performed By: #### C BC, GFR, DIFF, URIC, MORPH, BMP, VIDH #### [place] [address] #### PTH #### [place] [address] Erythrocyte distribution width (RBC) [Ratio] 17.9 % High 11.5-14.5 [facility] ([place]) Comment on above: Performed By: #### C BC, GFR, DIFF, URIC, MORPH, BMP, VIDH #### [place] [address] #### PTH #### [place] [address] Hematocrit (Bld) [Volume fraction] 30.9 % Low 42.0-52.0 [facility] ([place]) Comment on above: Performed By: #### C BC, GFR, DIFF, URIC, MORPH, BMP, VIDH #### [place] [address] #### PTH #### [place] [address] Hgb 9.9 G/dL Low 14.0-18.0 [facility] ([place]) Comment on above: Performed By: #### C BC, GFR, DIFF, URIC, MORPH, BMP, VIDH #### [place] [address] #### PTH #### [place] [address] MCH (RBC) [Entitic mass] 26.8 pg Low 27.0-31.2 [facility] ([place]) Comment on above: Performed By: #### C BC, GFR, DIFF, URIC, MORPH, BMP, VIDH #### [place] [address] #### PTH #### [place] [address] MCHC 32.2 G/dL Normal 31.8-35.4 [facility] ([place]) Comment on above: Performed By: #### C BC, GFR, DIFF, URIC, MORPH, BMP, VIDH #### [place] [address] #### PTH #### [place] [address] MCV (RBC) [Entitic vol] 83.2 fL Normal 80.0-94.0 [facility] ([place]) Comment on above: Performed By: #### C BC, GFR, DIFF, URIC, MORPH, BMP, VIDH #### [place] [address] #### PTH #### [place] [address] Platelet 290 10 3/mcL Normal 130-400 [facility] ([place]) Comment on above: Performed By: #### C BC, GFR, DIFF, URIC, MORPH, BMP, VIDH #### [place] [address] #### PTH #### [place] [address] Platelet mean volume (Bld) [Entitic vol] 7.5 fL Normal 7.4-10.4 [facility] ([place]) Comment on above: Performed By: #### C BC, GFR, DIFF, URIC, MORPH, BMP, VIDH #### [address] [address] #### PTH #### [address] [address] WBC 60.9 10 3/mcL Critically abnormal 4.6-10.8 [facility] ([place] Comment on above: Performed By: #### C BC, GFR, DIFF, URIC, MORPH, BMP, VIDH #### [place] [address] #### PTH #### [address] [address] CRURon 05-28-2023 U Creatinine 46.4 mg/dL Normal 39.0-259.0 [facility] ([place]) Comment on above: Performed By: #### P RUR, CRUR #### [place] [address] LABORATORYOrdered By: SYSTEM SYSTEM on 05-28-2023 Creatinine (U) [Mass/Vol] 46.4 mg/dL Normal 39.0 - 259.0 mg/dL AO ADM SS Protein (U) [Mass/Vol] 34 mg/dL High 0 - 11 mg/dL AO ADM SS 25-hydroxyvitamin D3 [Mass/Vol] 94.4 ng/mL Invalid Interpretation Code AO ADM SS Comment on above: Interpretive Data: I nterpretive Values Based on Total 25(OH) Vitamin D: Deficient <20 ng/mL Insufficient 20 - <30 ng/mL Sufficient 30-100 ng/mL Acanthocytes LM Ql (Bld) 1+ *NA* (05/28/23 10:21 AM) Invalid Interpretation Code AO Workflow SS Anisocytosis Ql (Bld) 1+ *NA* (05/28/23 10:21 AM) Invalid Interpretation Code AO Workflow SS Basophil %, Manual 1.0 % Normal 0.0 - 2.5 % AO Wo rkflow SS Basophil, Abs Manual 0.6 103/mcL High 0.0 - 0 .2 10^3/mcL AO Workflow SS Calcium [Mass/Vol] 9.2 mg/dL Normal 8.4 - 10. 2 mg/dL AO ADM SS Chloride [Moles/Vol] 107 mmol/L Normal 98 - 10 7 mmol/L AO ADM SS CO2 [Moles/Vol] 30 mmol/L Normal 23 - 31 mmol/L AO ADM SS Creatinine [Mass/Vol] 2.01 mg/dL High 0.70 - 1.30 mg/dL AO ADM SS Electrolyte Balance 10.0 mEq/L Normal 4.0 - 15 .0 mEq/L AO ADM SS Eosinophil %, Manual 1.0 % Normal 0.0 - 7.0 % AO Workflow SS Eosinophils (Bld) [#/Vol] 0.6 103/mcL High 0.0 - 0.4 10^3/mcL AO Workflow SS Erythrocyte distribution width (RBC) [Ratio] 17.9 % High 11.5 - 14.5 % AO Workflow SS GFR/1.73 sq M.predicted among blacks MDRD (S/P/Bld) [Vol rate/Area] 39 ml/min/1.73sqm Invalid Interpretation Code AO Chemistry S Comment on above: Interpretive Data: GFR Population mean for , Non- Americans Ages 20-29 = 116 mL/min/1.73 sq.m. Ages 30-39 = 107 mL/min/1.73 sq.m. Ages 40-49 = 99 mL/min/1.73 sq.m. Ages 50-59 = 93 mL/min/1.73 sq.m. Ages 60-69 = 85 mL/min/1.73 sq.m. Ages 70+ = 75 mL/min/1.73 sq.m. Chronic Kidney Disease: Less than 60 mL/min/1.73 square meters End Stage Renal Disease: Less than 15 mL/min/1.73 square meters GFR/1.73 sq M.predicted among non-blacks MDRD (S/P/Bld) [Vol rate/Area] 32 ml/min/1.73sqm Invalid Interpretation Code AO Chemistry S Comment on above: Interpretive Data: GFR Population mean for , Non- Americans Ages 20-29 = 116 mL/min/1.73 sq.m. Ages 30-39 = 107 mL/min/1.73 sq.m. Ages 40-49 = 99 mL/min/1.73 sq.m. Ages 50-59 = 93 mL/min/1.73 sq.m. Ages 60-69 = 85 mL/min/1.73 sq.m. Ages 70+ = 75 mL/min/1.73 sq.m. Chronic Kidney Disease: Less than 60 mL/min/1.73 square meters End Stage Renal Disease: Less than 15 mL/min/1.73 square meters Glucose [Mass/Vol] 115 mg/dL High 83 - 110 mg/dL AO ADM SS Hematocrit (Bld) [Volume fraction] 30.9 % Low 42.0 - 52.0 % AO Workflow SS Hemoglobin (Bld) [Mass/Vol] 9.9 G/dL Low 14.0 - 18.0 G/dL AO Workflow SS Hypochromia Ql (Bld) 1+ *NA* (05/28/23 10:21 AM) Invalid Interpretation Code AO Workflow SS Lymphocyte %, Manual 71.0 % High 10.0 - 50.0 % AO Workflow SS Lymphocyte, Abs Manual 43.2 103/mcL High 0.8 - 3.9 10^3/mcL AO Workflow SS MCH (RBC) [Entitic mass] 26.8 pg Low 27.0 - 31.2 pg AO Workflow SS MCHC 32.2 G/dL Normal 31.8 - 35.4 G/dL AO Workflow SS MCV (RBC) [Entitic vol] 83.2 fL Normal 80.0 - 94.0 fL AO Workflow SS Monocyte %, Manual 0.0 % Low 1.7 - 13.0 % AO W orkflow SS Monocyte, Abs Manual 0.0 103/mcL Low 0.2 - 1 .0 10^3/mcL AO Workflow SS Neutrophil %, Manual 27.0 % Low 37.0 - 80.0 % AO Workflow SS Neutrophil, Abs Manual 16.5 103/mcL High 2.9 - 6.2 10^3/mcL AO Workflow SS Nucleated RBC 0.0 /100 WBC Invalid Interpretation Code AO Workflow SS Ovalocytes LM Ql (Bld) 1+ *NA* (05/28/23 10:21 AM) Invalid Interpretation Code AO Workflow SS Parathyrin.intact [Mass/Vol] 64.3 pg/mL Normal 18.5 - 88.0 pg/mL AH ADM SS Platelet Estimate Normal *NA* (05/28/23 10:21 AM) Invalid Interpretation Code AO Workflow SS Platelet mean volume (Bld) [Entitic vol] 7.5 fL Normal 7.4 - 10.4 fL AO Workflow SS Platelets (Bld) [#/Vol] 290 103/mcL Normal 130 - 400 10^3/mcL AO Workflow SS Potassium [Moles/Vol] 4.7 mmol/L Normal 3.5 - 5.1 mmol/L AO ADM SS RBC (Bld) [#/Vol] 3.71 106/mcL Low 4.04 - 6.1 3 10^6/mcL AO Hematology S Comment on above: Result Comment: crit ical wbc called to Carin snow 05/28/2023 12:25:50 EST Smudge Cells 2+ *NA* (05/28/23 10:21 AM) Invalid Interpretation Code AO Workflow SS Sodium [Moles/Vol] 147 mmol/L High 136 - 145 mmol/L AO ADM SS Urea nitrogen [Mass/Vol] 36 mg/dL High 7 - 18 mg/dL AO ADM SS Urea nitrogen/Creatinine [Mass ratio] 18 ratio Normal 7 - 27 ratio AO ADM SS Uric Acid Lvl 5.4 mg/dL Normal 3.5 - 7.2 mg/dL AO ADM SS WBC (Bld) [#/Vol] 60.9 103/mcL Invalid Interpretation Code 4.6 - 10.8 10^3/mcL AO Workflow SS PRURon 05-28-2023 U Protein 34 mg/dL High 0-11 [facility] ([place] Comment on above: Performed By: #### P KASIA BROWN #### [address] [address] PTHon 05-28-2023 PTH, Intact 64.3 pg/mL Normal 18.5-88.0 [facility] ([place]) Comment on above: Performed By: #### C BC, GFR, DIFF, URIC, MORPH, BMP, VIDH #### [address] [address] #### PTH #### [address] [address] URICon 05-28-2023 Uric Acid Lvl 5.4 mg/dL Normal 3.5-7.2 [facility] ([place]) Comment on above: Performed By: #### C BC, GFR, DIFF, URIC, MORPH, BMP, VIDH #### [address] [address] #### PTH #### [address] [address] VIDHon 05-28-2023 Vit. D 25-Hydroxy 94.4 ng/mL Normal [facility] ([place]) Comment on above: Result Comment: Inte rpretive Values Based on Total 25(OH) Vitamin D: Deficient <20 ng/mL Insufficient 20 - <30 ng/mL Sufficient 30-100 ng/mL Performed By: #### C BC, GFR, DIFF, URIC, MORPH, BMP, VIDH #### [address] [address] #### PTH #### [place] [id number] CNOVon 05-01-2023 CNOV Office Visit ([facility] 3) -------- JAIME ANN ([id number]) 1940 M Date Time Provider Department 05/01/23 11:15 AM KATE [id number] During your visit today, we recorded the following information about you: Pulse Blood pressure Weight Height 72/minute 118/64 77.1 kg 1.778 m Kate Aguirre MD 05/09/2023 2:39 PM Signed [facility] SURGERY HANDP Subjective CHIEF COMPLAINT: Ampullary nodularity HISTORY OF PRESENT ILLNESS: Mr. Ann is a 82 year old male who presents for ampullary lesion. History of CLL diagnosed 01/2004 and has not required therapy for this. 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 Had MRI which showed no obvious pancreatic mass. Does not have biliary obstruction/jaundice. No current symptoms. He was having dry heaves when he was admitted with a UTI, but this has resolved. No abdominal pain. No vomiting. Eating well. No unintentional weight loss. No history of pancreatitis. PAST MEDICAL HISTORY Diagnosis Date Chronic lymphocytic leukemia (HCC) HTN (hypertension) Liver cyst Non-ischemic cardiomyopathy (HCC) Peripheral neuropathy Prostate cancer (HCC) s/p external radiation. no resection Splenic artery aneurysm (HCC) Subdural hematoma (HCC) summer 2015, after heart stopped and fell, s/p evacuation Ventricular tachycardia (HCC) in 1983 and 2015 PAST SURGICAL HISTORY Procedure Laterality Date MATTRESS STRIPPER ICD (ICDCRT) 09/2015 FASCT PALM W/WO Z-PLASTY TISSUE REARGMT/SKN GRFT Left 04/04/2019 Left palmar fasciectomy HAND SURGERY HX 2014 detrupens contracture PAST SURGICAL HISTORY OF Right CMC arthroplasty PAST SURGICAL HISTORY OF percutaneous splenic artery aneurysm repair VASCULAR EMBOLIZATION OR OCCLUSION ARTERIAL RSANDI Current Outpatient Medications on File Prior to Visit Medication Sig sacubitril-valsartan (ENTRESTO) 49-51 mg tablet Take 1 tablet by mouth twice daily. tamsulosin (FLOMAX) 0.4 mg Take 0.4 mg by mouth once daily. nortriptyline (PAMELOR) 50 mg capsule Take 50 mg by mouth twice daily. carvedilol (COREG) 25 mg tablet Take 1 tablet by mouth twice daily with meals. atorvastatin (LIPITOR) 20 mg tablet Take 1 tablet by mouth once daily. OTC NUTRITIONAL SUPPLEMENT 2 tablets once daily. Nerve Renew ZINC ACETATE ORAL Take by mouth once daily. MULTI-VITAMIN ORAL Take by mouth. CHOLECALCIFEROL, VITAMIN D3, (VITAMIN D3 ORAL) Take 1,000 Units by mouth once daily. qtfbqaaiuby-H2-Hlfoiajvv serr 1,500-400-100 mg-unit-mg tab Take 1 tablet by mouth once daily. Current Facility-Administered Medications on File Prior to Visit Medication perflutren lipid microspheres 1.3 mL in NaCl (PF) 0.9% 10 mL injection (DEFINITY) sodium chloride 0.9 % (flush) 10 mL (BD POSIFLUSH) ALLERGIES Allergen Reactions Lisinopril Cough FAMILY HISTORY Problem Relation Age of Onset Stroke Mother Hypertension Mother Diabetes Mother Diabetes Father Ischemic Heart Disease Father Social History Tobacco Use Smoking status: Never Smokeless tobacco: Never Vaping Use Vaping Use: Never used Substance Use Topics Alcohol use: Yes Comment: rare use Drug use: No Objective PHYSICAL EXAM: BP 118/64 Pulse 72 Ht 5' 10" (1.78m) Wt 170 lb (77.1kg) SpO2 97% BMI 24.39 kg/(m2). Physical Exam Performed GENERAL: Alert, no distress, cooperative LUNGS: No respiratory distress CARDIAC: RRR ABDOMEN: Soft, nontender The remainder of the physical exam is noncontributory. DATA: Diagnostic tests reviewed for today's visit: Most recent labs and imaging results. CT abdomen/pelvis non-con 03/12/23 --Findings suspicious for cystitis. Correlate with urinalysis. --Mild bilateral pelviectasis with no obstructing stone seen. --Retroperitoneal lymphadenopathy of uncertain etiology --3.2 cm indeterminate density cyst in the left upper renal pole is indeterminate. Recommend multiphase MR abdomen with and without contrast renal mass protocol. --Posttreatment changes status post embolization of the splenic artery aneurysm EGD 03/13/23: --LA Grade B reflux, esophagitis with no bleeding, biopsied --No gross lesions in the stomach --Small hiatal hernia --Congested duodenal mucosa. Biopsied. --Nonbleeding duodenal diverticulum --Nodular mucosa in the area of the papilla. Biopsied. 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 Normal [facility] HISTORY PHYSICALon HISTORY PHYSICAL HNO ID: [id number] Author: Kate Aguirre MD Service: ? Author Type: Physician Type: HANDP Filed: 05/09/2023 2:39 PM Note Text: HPB SURGERY HANDP Subjective CHIEF COMPLAINT: Ampullary nodularity HISTORY OF PRESENT ILLNESS: Mr. Ann is a 82 year old male who presents for ampullary lesion. History of CLL diagnosed 01/2004 and has not required therapy for this. 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 Had MRI which showed no obvious pancreatic mass. Does not have biliary obstruction/jaundice. No current symptoms. He was having dry heaves when he was admitted with a UTI, but this has resolved. No abdominal pain. No vomiting. Eating well. No unintentional weight loss. No history of pancreatitis. PAST MEDICAL HISTORY Diagnosis Date Chronic lymphocytic leukemia (HCC) HTN (hypertension) Liver cyst Non-ischemic cardiomyopathy (HCC) Peripheral neuropathy Prostate cancer (HCC) s/p external radiation. no resection Splenic artery aneurysm (HCC) Subdural hematoma (HCC) summer 2015, after heart stopped and fell, s/p evacuation Ventricular tachycardia (HCC) in 1983 and 2015 PAST SURGICAL HISTORY Procedure Laterality Date MATTRESS STRIPPER ICD (ICDCRT) 09/2015 FASCT PALM W/WO Z-PLASTY TISSUE REARGMT/SKN GRFT Left 04/04/2019 Left palmar fasciectomy HAND SURGERY HX 2014 detrupens contracture PAST SURGICAL HISTORY OF Right CMC arthroplasty PAST SURGICAL HISTORY OF percutaneous splenic artery aneurysm repair VASCULAR EMBOLIZATION OR OCCLUSION ARTERIAL RSANDI Current Outpatient Medications on File Prior to Visit Medication Sig sacubitril-valsartan (ENTRESTO) 49-51 mg tablet Take 1 tablet by mouth twice daily. tamsulosin (FLOMAX) 0.4 mg Take 0.4 mg by mouth once daily. nortriptyline (PAMELOR) 50 mg capsule Take 50 mg by mouth twice daily. carvedilol (COREG) 25 mg tablet Take 1 tablet by mouth twice daily with meals. atorvastatin (LIPITOR) 20 mg tablet Take 1 tablet by mouth once daily. OTC NUTRITIONAL SUPPLEMENT 2 tablets once daily. Nerve Renew ZINC ACETATE ORAL Take by mouth once daily. MULTI-VITAMIN ORAL Take by mouth. CHOLECALCIFEROL, VITAMIN D3, (VITAMIN D3 ORAL) Take 1,000 Units by mouth once daily. niyelyxynom-R7-Ozjzodfsw serr 1,500-400-100 mg-unit-mg tab Take 1 tablet by mouth once daily. Current Facility-Administered Medications on File Prior to Visit Medication perflutren lipid microspheres 1.3 mL in NaCl (PF) 0.9% 10 mL injection (DEFINITY) sodium chloride 0.9 % (flush) 10 mL (BD POSIFLUSH) ALLERGIES Allergen Reactions Lisinopril Cough FAMILY HISTORY Problem Relation Age of Onset Stroke Mother Hypertension Mother Diabetes Mother Diabetes Father Ischemic Heart Disease Father Social History Tobacco Use Smoking status: Never Smokeless tobacco: Never Vaping Use Vaping Use: Never used Substance Use Topics Alcohol use: Yes Comment: rare use Drug use: No Objective PHYSICAL EXAM: BP 118/64 Pulse 72 Ht 5' 10" (1.78m) Wt 170 lb (77.1kg) SpO2 97% BMI 24.39 kg/(m2). Physical Exam Performed GENERAL: Alert, no distress, cooperative LUNGS: No respiratory distress CARDIAC: RRR ABDOMEN: Soft, nontender The remainder of the physical exam is noncontributory. DATA: Diagnostic tests reviewed for today's visit: Most recent labs and imaging results. CT abdomen/pelvis non-con 03/12/23 --Findings suspicious for cystitis. Correlate with urinalysis. --Mild bilateral pelviectasis with no obstructing stone seen. --Retroperitoneal lymphadenopathy of uncertain etiology --3.2 cm indeterminate density cyst in the left upper renal pole is indeterminate. Recommend multiphase MR abdomen with and without contrast renal mass protocol. --Posttreatment changes status post embolization of the splenic artery aneurysm EGD 03/13/23: --LA Grade B reflux, esophagitis with no bleeding, biopsied --No gross lesions in the stomach --Small hiatal hernia --Congested duodenal mucosa. Biopsied. --Nonbleeding duodenal diverticulum --Nodular mucosa in the area of the papilla. Biopsied. 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 Normal [facility] .GFRon 04-18-2023 GFR 31 ml/min/1.73sqm Normal [facility] ([place]) Comment on above: Result Comment: GFR Population mean for , [...] 15 mL/min/1.73 square meters Performed By: #### C BC, GFR, DIFF, URIC, MORPH, BMP, VIDH #### [address] [address] #### PTH #### [address] [address] GFR Non- 26 ml/min/1.73sqm Normal [facility] ([place]) Comment on above: Result Comment: GFR Population mean for , [...] 15 mL/min/1.73 square meters Performed By: #### C BC, GFR, DIFF, URIC, MORPH, BMP, VIDH #### [address] [address] #### PTH #### [address] [address] .Manual Diffon 04-18-2023 Atypical Lymphs 5.0 % Normal 0.0-5.0 [facility] ([place]) Comment on above: Performed By: #### C BC, GFR, DIFF, URIC, MORPH, BMP, VIDH #### [place] [address] #### PTH #### [address] [address] Basophil %, Manual 0.0 % Normal 0.0-2.5 [facility] ([place]) Comment on above: Performed By: #### C BC, GFR, DIFF, URIC, MORPH, BMP, VIDH #### [place] [address] #### PTH #### [address] [address] Basophil, Abs Manual 0.0 10 3/mcL Normal 0.0-0.2 [facility] ([place]) Comment on above: Performed By: #### C BC, GFR, DIFF, URIC, MORPH, BMP, VIDH #### [place] [address] #### PTH #### [place] [address] Eosinophil %, Manual 0.0 % Normal 0.0-7.0 [facility] ([place]) Comment on above: Performed By: #### C BC, GFR, DIFF, URIC, MORPH, BMP, VIDH #### [place] [address] #### PTH #### [place] [address] Eosinophil, Abs Manual 0.0 10 3/mcL Normal 0.0-0.4 [facility] ([place]) Comment on above: Performed By: #### C BC, GFR, DIFF, URIC, MORPH, BMP, VIDH #### [place] [address] #### PTH #### [place] [address] Lymphocyte %, Manual 60.0 % High 10.0-50.0 [facility] ([place]) Comment on above: Performed By: #### C BC, GFR, DIFF, URIC, MORPH, BMP, VIDH #### [place] [address] #### PTH #### [address] [address] Lymphocyte, Abs Manual 34.7 10 3/mcL High 0.8-3.9 [facility] ([place]) Comment on above: Performed By: #### C BC, GFR, DIFF, URIC, MORPH, BMP, VIDH #### [place] [address] #### PTH #### [address] [address] Monocyte %, Manual 0.0 % Low 1.7-13.0 [facility] ([place]) Comment on above: Performed By: #### C BC, GFR, DIFF, URIC, MORPH, BMP, VIDH #### [place] [address] #### PTH #### [address] [address] Monocyte, Abs Manual 0.0 10 3/mcL Low 0.2-1.0 [facility] ([place]) Comment on above: Performed By: #### C BC, GFR, DIFF, URIC, MORPH, BMP, VIDH #### [place] [address] #### PTH #### [address] [address] Neutrophil %, Manual 35.0 % Low 37.0-80.0 [facility] ([place]) Comment on above: Performed By: #### C BC, GFR, DIFF, URIC, MORPH, BMP, VIDH #### [place] [address] #### PTH #### [address] [address] Neutrophil, Abs Manual 20.3 10 3/mcL High 2.9-6.2 [facility] ([place]) Comment on above: Performed By: #### C BC, GFR, DIFF, URIC, MORPH, BMP, VIDH #### [place] [address] #### PTH #### [address] [address] Nucleated RBC 0.0 /100 WBC Normal [facility] ([place]) Comment on above: Performed By: #### C BC, GFR, DIFF, URIC, MORPH, BMP, VIDH #### [address] [address] #### PTH #### [address] [address] .Morphon 04-18-2023 Acanthocytes 1+ Normal [facility] ([place]) Comment on above: Performed By: #### C BC, GFR, DIFF, URIC, MORPH, BMP, VIDH #### [address] [address] #### PTH #### [place] [address] Anisocytosis Ql (Bld) 1+ Normal [facility] ([place]) Comment on above: Performed By: #### C BC, GFR, DIFF, URIC, MORPH, BMP, VIDH #### [address] [address] #### PTH #### [place] [address] Ovalocytes 1+ Normal [facility] ([place]) Comment on above: Performed By: #### C BC, GFR, DIFF, URIC, MORPH, BMP, VIDH #### [address] [address] #### PTH #### [place] [address] Platelet Estimate Normal Normal [facility] ([place]) Comment on above: Performed By: #### C BC, GFR, DIFF, URIC, MORPH, BMP, VIDH #### [address] [address] #### PTH #### [place] [address] Smudge Cells 2+ Normal [facility] ([place]) Comment on above: Performed By: #### C BC, GFR, DIFF, URIC, MORPH, BMP, VIDH #### [place] [address] #### PTH #### [address] [address] CBCon 04-18-2023 Erythrocyte distribution width (RBC) [Ratio] 18.8 % High 11.5-14.5 [facility] ([place]) Comment on above: Performed By: #### C BC, GFR, DIFF, URIC, MORPH, BMP, VIDH #### [place] [address] #### PTH #### [place] [address] Hematocrit (Bld) [Volume fraction] 29.3 % Low 42.0-52.0 [facility] ([place]) Comment on above: Performed By: #### C BC, GFR, DIFF, URIC, MORPH, BMP, VIDH #### [place] [address] #### PTH #### [place] [address] Hgb 9.2 G/dL Low 14.0-18.0 [facility] ([place]) Comment on above: Performed By: #### C BC, GFR, DIFF, URIC, MORPH, BMP, VIDH #### [place] [address] #### PTH #### [place] [address] MCH (RBC) [Entitic mass] 25.9 pg Low 27.0-31.2 [facility] ([place]) Comment on above: Performed By: #### C BC, GFR, DIFF, URIC, MORPH, BMP, VIDH #### [place] [address] #### PTH #### [place] [address] MCHC 31.4 G/dL Low 31.8-35.4 [facility] ([place]) Comment on above: Performed By: #### C BC, GFR, DIFF, URIC, MORPH, BMP, VIDH #### [place] [address] #### PTH #### [place] [address] MCV (RBC) [Entitic vol] 82.6 fL Normal 80.0-94.0 [facility] ([place]) Comment on above: Performed By: #### C BC, GFR, DIFF, URIC, MORPH, BMP, VIDH #### [place] [address] #### PTH #### [place] [address] Platelet 286 10 3/mcL Normal 130-400 [facility] ([place]) Comment on above: Performed By: #### C BC, GFR, DIFF, URIC, MORPH, BMP, VIDH #### [place] [address] #### PTH #### [place] [address] Platelet mean volume (Bld) [Entitic vol] 7.8 fL Normal 7.4-10.4 [facility] ([place]) Comment on above: Performed By: #### C BC, GFR, DIFF, URIC, MORPH, BMP, VIDH #### [place] [address] #### PTH #### [place] [address] RBC 3.54 10 6/mcL Low 4.04-6.13 [facility] ([place]) Comment on above: Performed By: #### C BC, GFR, DIFF, URIC, MORPH, BMP, VIDH #### [place] [address] #### PTH #### [place] [address] WBC 57.9 10 3/mcL Critically abnormal 4.6-10.8 [facility] ([place]) Comment on above: Performed By: #### C BC, GFR, DIFF, URIC, MORPH, BMP, VIDH #### [place] [address] #### PTH #### [address] [address] CMPon 04-18-2023 Albumin Level 3.2 G/dL Low 3.4-4.8 [facility] ([place]) Comment on above: Performed By: #### C BC, GFR, DIFF, URIC, MORPH, BMP, VIDH #### [address] [address] #### PTH #### [address] [address] Albumin/Globulin [Mass ratio] 1.3 {ratio} Normal 1.1-2.5 [facility] ([place]) Comment on above: Performed By: #### C BC, GFR, DIFF, URIC, MORPH, BMP, VIDH #### [place] [address] #### PTH #### [address] [address] ALP [Catalytic activity/Vol] 84 U/L Normal 40-135 [facility] ([place]) Comment on above: Performed By: #### C BC, GFR, DIFF, URIC, MORPH, BMP, VIDH #### [place] [address] #### PTH #### [address] [address] ALT [Catalytic activity/Vol] 18 U/L Normal 16-63 [facility] ([place]) Comment on above: Performed By: #### C BC, GFR, DIFF, URIC, MORPH, BMP, VIDH #### [place] [address] #### PTH #### [address] [address] AST [Catalytic activity/Vol] 16 U/L Normal 10-40 [facility] ([place] Comment on above: Performed By: #### C BC, GFR, DIFF, URIC, MORPH, BMP, VIDH #### [address] [address] #### PTH #### [address] [address] Bili Total 0.4 mg/dL Normal 0.2-1.0 [facility] ([place]) Comment on above: Result Comment: Use of this assay is not recommended for patients undergoing treatment with eltrombopag due to the potential for falsely elevated results. Performed By: #### C BC, GFR, DIFF, URIC, MORPH, BMP, VIDH #### [place] [address] #### PTH #### [place] [address] BUN/Creatinine Ratio 22 ratio Normal 7-27 [facility] ([place]) Comment on above: Performed By: #### C BC, GFR, DIFF, URIC, MORPH, BMP, VIDH #### [place] [address] #### PTH #### [place] [address] Calcium [Mass/Vol] 9.0 mg/dL Normal 8.4-10.2 [facility] ([place]) Comment on above: Performed By: #### C BC, GFR, DIFF, URIC, MORPH, BMP, VIDH #### [place] [address] #### PTH #### [place] [address] Chloride [Moles/Vol] 104 mmol/L Normal 98-107 [facility] ([place]) Comment on above: Performed By: #### C BC, GFR, DIFF, URIC, MORPH, BMP, VIDH #### [place] [address] #### PTH #### [place] [address] CO2 [Moles/Vol] 29 mmol/L Normal 23-31 [facility] ([place]) Comment on above: Performed By: #### C BC, GFR, DIFF, URIC, MORPH, BMP, VIDH #### [place] [address] #### PTH #### [place] [address] Creatinine [Mass/Vol] 2.43 mg/dL High 0.70-1.30 [facility] ([place]) Comment on above: Performed By: #### C BC, GFR, DIFF, URIC, MORPH, BMP, VIDH #### [address] [address] #### PTH #### [address] [address] Electrolyte Balance 13.0 mEq/L Normal 4.0-15.0 [facility] ([place]) Comment on above: Performed By: #### C BC, GFR, DIFF, URIC, MORPH, BMP, VIDH #### [address] [address] #### PTH #### [address] [address] Globulin 2.5 G/dL Normal [facility] ([place]) Comment on above: Performed By: #### C BC, GFR, DIFF, URIC, MORPH, BMP, VIDH #### [address] [address] #### PTH #### [address] [address] Glucose [Mass/Vol] 86 mg/dL Normal 83-110 [facility] ([place]) Comment on above: Performed By: #### C BC, GFR, DIFF, URIC, MORPH, BMP, VIDH #### [address] [address] #### PTH #### [address] [address] Potassium [Moles/Vol] 4.3 mmol/L Normal 3.5-5.1 [facility] ([place]) Comment on above: Performed By: #### C BC, GFR, DIFF, URIC, MORPH, BMP, VIDH #### [address] [address] #### PTH #### [address] [address] Sodium [Moles/Vol] 146 mmol/L High 136-145 [facility] ([place]) Comment on above: Performed By: #### C BC, GFR, DIFF, URIC, MORPH, BMP, VIDH #### [address] [address] #### PTH #### [address] [address] Total Protein 5.7 G/dL Low 6.4-8.2 [facility] ([place]) Comment on above: Performed By: #### C BC, GFR, DIFF, URIC, MORPH, BMP, VIDH #### [address] [address] #### PTH #### [address] [address] Urea nitrogen [Mass/Vol] 53 mg/dL High 7-18 [facility] ([place]) Comment on above: Performed By: #### C BC, GFR, DIFF, URIC, MORPH, BMP, VIDH #### [place] [id number] #### PTH #### [address] [address] Janis 04-18-2023 CNPN Telephone (TIFFANI) -------- JAIME ANN ([id number]) 1940 M Date Time Provider Department 04/18/23 LAMINE KATZ During your visit today, we recorded the following information about you: Ananya Manzo 04/18/2023 8:15 AM Signed Cardiology form completed, fax'd/rec'd AND scanned into outside ep. Ananya Manzo Allergies As of Date: 04/18/2023 Noted Allergy Reaction LISINOPRIL 07/04/2016 3 - Cough Date Reviewed: 04/12/2023 Reviewed by: Karon Conteh Ma - Fully Assessed Reason for Visit: Received Outside Medical Records [[id number]] Cmt: [employer] Cardiology Form Prescriptions as of 04/18/2023 - tamsulosin (FLOMAX) 0.4 mg Take 0.4 mg by mouth once daily. - nortriptyline (PAMELOR) 50 mg capsule Take 50 mg by mouth twice daily. - carvedilol (COREG) 25 mg tablet Take 1 tablet by mouth twice daily with meals. - atorvastatin (LIPITOR) 20 mg tablet Take 1 tablet by mouth once daily. - sacubitril-valsartan (ENTRESTO) 49-51 mg tablet Take 1 tablet by mouth twice daily. - OTC NUTRITIONAL SUPPLEMENT 2 tablets once daily. Nerve Renew - ZINC ACETATE ORAL Take by mouth once daily. - MULTI-VITAMIN ORAL Take by mouth. - CHOLECALCIFEROL, VITAMIN D3, (VITAMIN D3 ORAL) Take 1,000 Units by mouth once daily. - slbhtinoavk-H4-Nkrbbcsld serr 1,500-400-100 mg-unit-mg tab Take 1 tablet by mouth once daily. Facility-Administered Medications as of 04/18/2023 - perflutren lipid microspheres 1.3 mL in NaCl (PF) 0.9% 10 mL injection (DEFINITY) - sodium chloride 0.9 % (flush) 10 mL (BD POSIFLUSH) Problem List As Of Date 04/18/2023 Noted Resolved Left bundle branch block [I44.7] 10/16/2014 Hypertension [I10] 10/16/2014 10/06/2016 Near syncope [R55] 10/16/2014 Hx of ventricular tachycardia [Z86.79] 10/16/2014 Splenic artery aneurysm (HCC) [I72.8] 02/19/2015 Cellulitis due to MRSA [L03.90, B95.62] 08/05/2015 Syncope [R55] 09/21/2015 SUMMARY 09/22/2015 Non-ischemic cardiomyopathy (HCC) [I42.8] 09/22/2015 Chronic systolic heart failure (HCC) [I50.22] 09/24/2015 Biventricular ICD (implantable cardioverter-def* 016 Renal insufficiency [N28.9] 07/19/2016 Carotid stenosis [I65.29] Malignant neoplasm of left kidney, except renal*10/06/2016 Essential hypertension [I10] 10/06/2016 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] 07/10/2017 Peripheral polyneuropathy (HCC) [G62.9] 07/10/2017 Abnormality of gait [R26.9] 07/10/2017 Disturbance of skin sensation [R20.9] 07/10/2017 Pain in both lower extremities [M79.604, M79.60*07/10/2017 Abnormal finding of blood chemistry [R79.9] 07/10/2017 Abnormal glucose [R73.09] 07/10/2017 CLL (chronic lymphocytic leukemia) (HCC) [C91.1*04/02/2019 History of prostate cancer [Z85.46] 04/02/2019 VT (ventricular tachycardia) ([facility]) [I47.20] 10/05/2022 Type 2 diabetes mellitus with hyperosmolarity w*10/05/2022 Encounter Status:Closed by ANANYA MANZO on 04/18/23 Normal [facility] Absolute lymphocyte countOrd ered By: Ean Bush on 04-17-2023 Lymphocytes Auto (Unsp spec) [#/Vol] 51.12 10*3/uL 0.83-4.51 [facility] Basophil percentageOrdered B y: Ean Bush on 04-17-2023 Basophils/100 WBC (Bld) 0.3 % 0-1 [facility] Bilirubin [Mass/Vol] 0.50 mg/dL 0.20-1.00 [facility] Comment on above: For patients on eltr ombopag therapy, use of Dimension Beacon TBIL is not recommended. Chloride [Moles/Vol] 107 mmol/L 98-107 [facility] Eosinophils/100 WBC (Bld) 0.4 % 0-5 [facility] Glucose [Mass/Vol] 101 mg/dL 74-106 [facility] Comment on above: Fasting Glucose resu lt from 100 to 125 mg/dL suggests IMPAIRED HOMEOSTASIS per A.D.A. criteria. LDH [Catalytic activity/Vol] 238 U/L 87-241 [facility] Neutrophils (Bld) [#/Vol] 9.4 10*3/uL 2.0-7.7 [facility] Neutrophils/100 WBC (Bld) 15.2 % 47-70 [facility] Potassium [Moles/Vol] 4.8 mmol/L 3.5-5.1 [facility] Protein [Mass/Vol] 6.0 g/dL 6.4-8.2 [facility] Sodium [Moles/Vol] 141 mmol/L 136-145 [facility] WBC (Bld) [#/Vol] 62.3 10*3/uL 4.4-11.0 [facility] Blood erythrocytes count (nu mber/volume)Ordered By: Ean Bush on 04-17-2023 RBC (Bld) [#/Vol] 3.60 10*6/uL 4.6-6.2 [facility] Blood hemoglobin measurement (mass/volume)Ordered By: Ean Bush on 04-17-2023 Hemoglobin (Bld) [Mass/Vol] 9.6 g/dL 13.0-16.5 [facility] Blood lymphocytes/100 leukoc ytesOrdered By: Ean Bush on 04-17-2023 Lymphocytes/100 WBC (Bld) 82.0 % 19-41 [facility] Blood monocytes/100 leukocyt esOrdered By: Ean Bush on 04-17-2023 Monocytes/100 WBC (Bld) 1.8 % 0-10 [facility] Blood platelet mean volumeOr dered By: Ean Bush on 04-17-2023 Platelet mean volume (Bld) [Entitic vol] 9.5 fL 6.2-12.0 [facility] Determination of erythrocyte mean corpuscular volume (MCV)Ordered By: Ean Bush on 04-17-2023 MCV (RBC) [Entitic vol] 88.1 fL 80-94 [facility] Hematocrit Auto (Bld) [Volum e fraction]Ordered By: Ean Bush on 04-17-2023 Hematocrit (Bld) [Volume fraction] 31.7 % 40-54 [facility] Hypochromatic red blood cell detectionOrdered By: Ean Bush on 04-17-2023 Hypochromia Ql (Bld) See comment [facility] Comment on above: Absolute lymphocytos is suggestive of low grade lympho-proliferative disorder.Clinical correlation is necessary.Normocytic anemia. Roby Michelle M.D. 04/19/23 Hypochromia Ql (Bld)Ordered By: Ean Bush on 04-17-2023 Hypochromasia See comment [facility] Comment on above: Absolute lymphocytos is suggestive of low grade lympho-proliferative disorder.Clinical correlation is necessary.Normocytic anemia. Roby Michelle M.D. 04/19/23 Iron measurement (mass/mass) Ordered By: Ean Bush on 04-17-2023 Iron (Unsp spec) [Mass/Mass] 26 ug/dL 65-175 [facility] Laboratory - Chemistry and C hemistry - challengeOrdered By: Ean Bush on 04-17-2023 ALP [Catalytic activity/Vol] 81 U/L 45-117 [facility] ALT [Catalytic activity/Vol] 18 U/L 16-61 [facility] CO2 [Moles/Vol] 28.0 mmol/L 21.0-32.0 [facility] Globulin (S) [Mass/Vol] 2.8 g/dL 2.2-4.2 [facility] Urea nitrogen/Creatinine [Mass ratio] 18.8 mg/mg 10-20 [facility] Laboratory - Hematology and Cell countsOrdered By: Ean Bush on 04-17-2023 Erythrocyte distribution width (RBC) [Entitic vol] 56.8 fL 35.1-43.9 [facility] Erythrocyte distribution width (RBC) [Ratio] 17.9 % 11.6-14.6 [facility] Immature granulocytes/100 WBC (Bld) 0.300 % 0.0-0.9 [facility] Comment on above: IG% - Immature Granu locytes (promyelocytes, myelocytes and metamyelocytes) > 1% indicates that a LEFT SHIFT is Present. MCH (RBC) [Entitic mass] 26.7 pg 27.0-32.0 [facility] Nucleated RBC/100 WBC (Bld) [Ratio] 0 % 0-5 [facility] MCHC Auto (RBC) [Mass/Vol]Or dered By: Ean Bush on 04-17-2023 MCHC (RBC) [Mass/Vol] 30.3 g/dL 32-36 [facility] No Panel InformationOrdered By: Ean Bush on 04-17-2023 CA 19-9 Antigen 49 U/mL 0-35 [facility] Comment on above: [facility] El ectrochemiluminescence Immunoassay(ECLIA)Values obtained with different assay methods or kits cannotbe used interchangeably. Results cannot be interpreted asabsolute evidence of the presence or absence of malignantdisease.Performed at: [facility] [id number] Director: Sharad Armando PhD, Phone: [phone] Estimated Creatinine Clearance Calc 22.17 ml/min [facility] Estimated GFR (MDRD) Amer 33 mL/min >60 [facility] Comment on above: GFR Calc Estimated GFR (MDRD) Non-Af Amer 28 mL/min >60 [facility] Comment on above: Non- GFR Calc Total Iron Binding Capacity 302 ug/dL 250-450 [facility] Platelets bldOrdered By: Marc Bush on 04-17-2023 Platelets (Bld) [#/Vol] 299 10*3/uL 150-450 [facility] Review by pathologistOrdered By: Ean Bush on 04-17-2023 Pathologist review Felice (Unsp spec) [Interp] Reviewed [facility] Comment on above: Previous reported re sult: Ayesha adamson Edited by: MARY on 04/19/23:1048 AMENDED REPORT 04/19/23 1048 PATH REV previously reported as: Ayesha adamson Serum or plasma albumin jamila urement (mass/volume)Ordered By: Ean Bush on 04-17-2023 Albumin [Mass/Vol] 3.2 g/dL 3.2-5.0 [facility] Serum or plasma albumin/glob ulin mass ratioOrdered By: Ean Bush on 04-17-2023 Albumin/Globulin [Mass ratio] 1.1 {ratio} 0.9-2.4 [facility] Serum or plasma calcium jamila urement (mass/volume)Ordered By: Ean Bush on 04-17-2023 Calcium [Mass/Vol] 8.9 mg/dL 8.5-10.1 [facility] Serum or plasma creatinine m easurement (mass/volume)Ordered By: Ean Bush on 04-17-2023 Creatinine [Mass/Vol] 2.40 mg/dL 0.70-1.30 [facility] Comment on above: The validity of the calculated GFR & GFRAA in patients over 70 years has not been determined. Clinical correlation is essential. Serum or plasma ferritin sabine surement (mass/volume)Ordered By: Ean Vadim on 04-17-2023 Ferritin [Mass/Vol] 71 ng/mL 26-388 [facility] Serum or plasma iron saturat ion measurement (mass fraction)Ordered By: [facility] on 04-17-2023 Iron saturation [Mass fraction] 8.6 % 15.0-55.0 [facility] Serum or plasma urea nitroge n measurement (mass/volume)Ordered By: [facility] on 04-17-2023 Urea nitrogen [Mass/Vol] 45 mg/dL 7-18 [facility] Thin prep Papanicolaou smear with manual screeningOrdered By: [facility] on 04-17-2023 Thin prep Papanicolaou smear with manual screening 16 U/L 15-37 [facility] Thin prep Papanicolaou smear with manual screening 6 5-15 [facility] CNOVon 04-12-2023 CNOV Office Visit (CARD C HF ALEXI) -------- JAIME ANN ([id number]) 1940 M Date Time Provider Department 04/12/23 10:15 AM [facility] CARD CHF ALEXI During your visit today, we recorded the following information about you: Pulse Blood pressure Weight Height 81/minute 113/58 75.2 kg 1.753 m Apple Barnett MD 04/12/2023 2:02 PM Signed [facility] [place] [facility] SECTION OF HEART FAILURE and CARDIAC TRANSPLANT MEDICINE OUTPATIENT VISIT DATE April 12, 2023 OUTPATIENT VISIT TYPE Established Patient PRIMARY CARE PHYSICIAN: Kenn Turcios NP [address] [place] [address] CHIEF COMPLAINT: HF f/u NURSING INTAKE (Patient?s concerns and/or recent hospitalizations/ER visits): HF Nursing Assessment: Interim Hospitalizations and/or ER visits: 03/04/2023 UTI 03/12/2023 bladder stone; 03/31/2023 retention of fluid Chest Pain: no Skipping or irregular heartbeats: no Shortness of breath at rest: no Shortness of breath with activity: no Cough: yes Waking up in the middle of the night gasping for air: no Lightheadedness or dizziness: yes, when stand too quickly Feeling like you are going to pass out: no Actually passing out: no Poor energy level: no Unintentional weight gain: no Unintentional weight loss:yes, loss 12 lbs since last visit Swelling in your legs,feet, abdomen: no Filling up quickly when you eat: no HISTORY OF PRESENT ILLNESS: Hospitalized x 3 since last visit 1. S aureus UTI 03/04/23 2. Nephrolithiasis 03/12/23 with BL hydronephrosis secondary to acute staphyloco ccal complicated urinary tract infection with acute urinary retention. Required transient Hood placement, continued on Flomax, status post cystoscopy with laser intervention as well as follow-up TURP discharged on ciprofloxacin. 3. LUE and leg edema without DVT per 03/31/23. BNP 1597, Cr 2.09, BUN 37 Had echo on 04/02/23 locally PAST MEDICAL HISTORY Diagnosis Date Chronic lymphocytic leukemia (HCC) HTN (hypertension) Liver cyst Non-ischemic cardiomyopathy (HCC) Peripheral neuropathy Prostate cancer (HCC) s/p external radiation. no resection Splenic artery aneurysm (HCC) Subdural hematoma (HCC) summer 2015, after heart stopped and fell, s/p evacuation Ventricular tachycardia (HCC) in 1983 and 2015 PAST SURGICAL HISTORY Procedure Laterality Date MATTRESS STRIPPER ICD (ICDCRT) 09/2015 FASCT PALM W/WO Z-PLASTY TISSUE REARGMT/SKN GRFT Left 04/04/2019 Left palmar fasciectomy HAND SURGERY HX 2014 detrupens contracture PAST SURGICAL HISTORY OF Right CMC arthroplasty PAST SURGICAL HISTORY OF percutaneous splenic artery aneurysm repair VASCULAR EMBOLIZATION OR OCCLUSION ARTERIAL RSANDI SOCIAL HISTORY Social History Tobacco Use Smoking status: Never Smokeless tobacco: Never Vaping Use Vaping Use: Never used Substance Use Topics Alcohol use: Yes Comment: rare use Drug use: No FAMILY HISTORY Problem Relation Age of Onset Stroke Mother Hypertension Mother Diabetes Mother Diabetes Father Ischemic Heart Disease Father ALLERGIES: ALLERGIES Allergen Reactions Lisinopril Cough CURRENT MEDICATIONS: tamsulosin (FLOMAX) 0.4 mgTake 0.4 mg by mouth once daily.Disp: Rfl: nortriptyline (PAMELOR) 50 mg capsuleTake 50 mg by mouth twice daily.Disp: Rfl: carvedilol (COREG) 25 mg tabletTake 1 tablet by mouth twice daily with meals.Disp: 180 tabletRfl: 3 atorvastatin (LIPITOR) 20 mg tabletTake 1 tablet by mouth once daily.Disp: 90 tabletRfl: 3 sacubitril-valsartan (ENTRESTO) 49-51 mg tabletTake 1 tablet by mouth twice daily.Disp: 60 tabletRfl: 11 OTC NUTRITIONAL SUPPLEMENT2 tablets once daily. Nerve Renew Disp: Rfl: ZINC ACETATE ORALTake by mouth once daily.Disp: Rfl: MULTI-VITAMIN ORALTake by mouth.Disp: Rfl: CHOLECALCIFEROL, VITAMIN D3, (VITAMIN D3 ORAL)Take 1,000 Units by mouth once daily. Disp: Rfl: seuzamhjvlw-Z4-Hibkmhifa serr 1,500-400-100 mg-unit-mg tabTake 1 tablet by mouth once daily.Disp: Rfl: REVIEW OF SYSTEMS: ROS HEART FAILURE PATIENT ENTERED DATA: No flowsheet data found. PHQ-9 06/19/2017 Score 3 PROMIS Global Health - (T-Scores - the mean of general population = 50. Five points is a clinically meaningful difference.) 06/19/2017 03/04/2019 03/04/2019 Physical T-Score 47.7 - - Mental T-Score 53.3 50.8 50.8 PHYSICAL EXAMINATION: BP 113/58 (BP Site: Left Arm) Pulse 81 Ht 175.3 cm (5' 9") Wt 75.2 kg (165 lb 11.2 oz) SpO2 98% BMI 24.47 kg/m? which is 8 lbs less than last visit. General: no distress, obese, accompanied by family Skin: No clubbing, no cyanosis. Eyes: Anicteric sclerae Neck: Neck veins are not distended, no carotid bruits Lungs: Chest clear to auscultation Heart: Irregular rate and rhythm, Rate: normal, no murmur Abdomen: No HSM, normal bow (more content not included)... Normal [facility] Comprehensive metabolic 2000 panelon 04-12-2023 Albumin [Mass/Vol] 3.9 g/dL Normal 3.9-4.9 [facility] Comment on above: Order Comment: Speci men Type: BLOOD SPECIMENOrdering Facility: [facility] Address: [address] [place] [address] Performed By: #### 2 4323-8 ####[facility] LABCLIA [id number] [place] [address] [place] ALP [Catalytic activity/Vol] 74 U/L Normal 38-113 [facility] Comment on above: Order Comment: Speci men Type: BLOOD SPECIMENOrdering Facility: [facility] Address: [address] [place] [address] Performed By: #### 2 4323-8 ####[facility] LABCLIA [id number] [place] [address] [place] ALT [Catalytic activity/Vol] 13 U/L Normal 10-54 [facility] Comment on above: Order Comment: Speci men Type: BLOOD SPECIMENOrdering Facility: [facility] Address: [address] [place] [address] Result Comment: Resu lt rechecked. Performed By: #### 2 4323-8 ####[facility] LABCLIA [id number] [place] [address] [place] Anion gap [Moles/Vol] 9 mmol/L Normal 9-18 [facility] Comment on above: Order Comment: Speci men Type: BLOOD SPECIMENOrdering Facility: [facility] Address: [address] [place] [address] Performed By: #### 2 4323-8 ####[facility] LABCLIA [id number] [place] [address] [place] AST [Catalytic activity/Vol] 17 U/L Normal 14-40 [facility] Comment on above: Order Comment: Speci men Type: BLOOD SPECIMENOrdering Facility: [facility] Address: [address] [place] [address] Performed By: #### 2 4323-8 ####[facility] LABCLIA [id number] [place] [address] [place] Bilirubin [Mass/Vol] 0.3 mg/dL Normal 0.2-1.3 [facility] Comment on above: Order Comment: Speci men Type: BLOOD SPECIMENOrdering Facility: [facility] Address: [address] [place] [address] Performed By: #### 2 4323-8 ####[facility] LABCLIA [id number] [place] [address] [place] Calcium [Mass/Vol] 9.5 mg/dL Normal 8.5-10.2 [facility] Comment on above: Order Comment: Speci men Type: BLOOD SPECIMENOrdering Facility: [facility] Address: [address] [place] [address] Performed By: #### 2 4323-8 ####[facility] LABCLIA [id number] [place] [address] [place] Chloride [Moles/Vol] 106 mmol/L High 97-105 [facility] Comment on above: Order Comment: Speci men Type: BLOOD SPECIMENOrdering Facility: [facility] Address: [address] [place] [address] Performed By: #### 2 4323-8 ####[facility] LABCLIA [id number] [place] [address] [place] CO2 [Moles/Vol] 29 mmol/L Normal 22-30 [facility] Comment on above: Order Comment: Speci men Type: BLOOD SPECIMENOrdering Facility: [facility] Address: [address] [place] [address] Performed By: #### 2 4323-8 ####[facility] LABCLIA [id number] [place] [address] [place] Creatinine [Mass/Vol] 2.33 mg/dL High 0.73-1.22 [facility] Comment on above: Order Comment: Glynn silva Type: BLOOD SPECIMENOrdering Facility: [facility] Address: [address] [place] [address] Performed By: #### 2 4323-8 ####[facility] LABCLIA [id number] [place] [address] [facility] Creatinine and Glomerular filtration rate.predicted panel (S/P/Bld) 27 mL/min/1.73m??? Low >=60 [facility] Comment on above: Order Comment: Glynn silva Type: BLOOD SPECIMENOrdering Facility: [facility] Address: [address] [place] [address] Result Comment: Melania mated Glomerular Filtration Rate (eGFR) is calculated using the 2020 CKD-EPI creatinine equation. This equation utilizes serum creatinine, sex, and age as parameters. The creatinine assay has traceable calibration to isotope dilution-mass spectrometry. Refer to KDIGO guidelines for clinical interpretation. In patients with unstable renal function, e.g. those with acute kidney injury, the eGFR may not accurately reflect actual GFR. Performed By: #### 2 4323-8 ####[facility] LABCLIA [id number] [place] [address] [place] Glucose [Mass/Vol] 95 mg/dL Normal 74-99 [facility] Comment on above: Order Comment: Glynn silva Type: BLOOD SPECIMENOrdering Facility: [facility] Address: [address] [place] [address] Result Comment: The [place] Diabetes [employer] (ADA) provides guidance for cutoff values for fasting glucose and random glucose. The ADA defines fasting as no caloric intake for at least 8 hours. Fasting plasma glucose results between 100 to 125 [...] Standards of Medical Care in Diabetes 2016, [place] [employer]. Diabetes Care. 2016.39(Suppl 1). Performed By: #### 2 4323-8 ####[facility] LABCLIA [id number] [place] [address] [place] Potassium [Moles/Vol] 4.9 mmol/L Normal 3.7-5.1 [facility] Comment on above: Order Comment: Speci men Type: BLOOD SPECIMENOrdering Facility: [facility] Address: [address] [place] [address] Performed By: #### 2 4323-8 ####[facility] LABCLIA [id number] [place] [address] [place] Protein [Mass/Vol] 5.7 g/dL Low 6.3-8.0 [facility] Comment on above: Order Comment: Speci men Type: BLOOD SPECIMENOrdering Facility: [facility] Address: [address] [place] [address] Performed By: #### 2 4323-8 ####[facility] LABIA [id number] [place] [address] [place] Sodium [Moles/Vol] 144 mmol/L Normal 136-144 [facility] Comment on above: Order Comment: Speci men Type: BLOOD SPECIMENOrdering Facility: [facility] Address: [address] [place] [address] Performed By: #### 2 4323-8 ####[facility] LABCLIA [id number] [place] [address] [place] Urea nitrogen [Mass/Vol] 52 mg/dL High 9-24 [facility] Comment on above: Order Comment: Speci men Type: BLOOD SPECIMENOrdering Facility: [facility] Address: [address] [place] [address] Performed By: #### 2 4323-8 ####[facility] LABCLIA [id number] [address] [address] [place] Albumin [Mass/Vol] 3.9 g/dL 3.9 - 4.9 g/dL [facility] ALP [Catalytic activity/Vol] 74 U/L 38 - 113 U/L [facility] ALT [Catalytic activity/Vol] 13 U/L 10 - 54 U/L [facility] Anion gap [Moles/Vol] 9 mmol/L 9 - 18 mmol/L [facility] AST [Catalytic activity/Vol] 17 U/L 14 - 40 U/L [facility] Bilirubin [Mass/Vol] 0.3 mg/dL 0.2 - 1 .3 mg/dL [facility] Calcium [Mass/Vol] 9.5 mg/dL 8.5 - 10. 2 mg/dL [facility] Chloride [Moles/Vol] 106 mmol/L High 97 - 10 5 mmol/L [facility] CO2 [Moles/Vol] 29 mmol/L 22 - 30 mmol/L [facility] Creatinine [Mass/Vol] 2.33 mg/dL High 0.73 - 1.22 mg/dL [facility] Estimated Glomerular Filtration Rate 27 mL/min/1.73m Low >=60 mL/min/1.73m [facility] Glucose [Mass/Vol] 95 mg/dL 74 - 99 mg/dL [facility] Potassium [Moles/Vol] 4.9 mmol/L 3.7 - 5.1 mmol/L [facility] Protein [Mass/Vol] 5.7 g/dL Low 6.3 - 8.0 g/dL [facility] Sodium [Moles/Vol] 144 mmol/L 136 - 144 mmol/L [facility] Urea nitrogen [Mass/Vol] 52 mg/dL High 9 - 24 mg/dL [facility] [id number] 04-12-2023 ECG01 Ventricular Rate : 7 2 BPM Atrial Rate : 72 BPM P-R Interval : 134 ms QRS Duration : 158 ms Q-T Interval : 488 ms QTC Calculation(Bazett) : 534 ms Calculated P [place] : 108 degrees Calculated R [place] : -146 degrees Calculated T [place] : 47 degrees ELECTRONIC VENTRICULAR PACEMAKER BIVENTRICULAR PACING * ABNORMAL ECG Confirmed by MD ZORAN, ALLISON ([id number]) on 04/25/2023 3:35:36 PM NAME : JAIME ANN PID : [id number] : 1940 Gender : Male Race : ORD : Procedure Date : Apr 12 2023 11:04:09 Edit Date : Apr 25 2023 15:35:40 Diagnosis: ELECTRONIC VENTRICULAR PACEMAKER BIVENTRICULAR PACING * ABNORMAL ECG Confirmed by MD MEEHAN HEBA ([id number]) on 04/25/2023 3:35:36 PM Test Reason : Location : 568 : [facility] Overread By : MD MEEHAN HEBA Edited By : MD MEEHAN HEBA Referred By : , Acquired by : [id number], Normal [facility] ICD REMOTE CHECKon 3 AV Delay Adaptive Paced Minimum (ms) 130 ms [facility] AV Delay Adaptive Rate Maximum (bpm) 130 {beats}/min [facility] AV Delay Adaptive Rate Minimum (bpm) 90 {beats}/min [facility] AV Delay Adaptive Sensed Minimum (ms) 100 ms [facility] AV Delay Adaptive Status ENABLED [facility] AV Delay Paced (ms) 100 ms [facility] AV Delay Sensed (ms) 70 ms [facility] Battery Voltage 3 V [facility] Jaxson LV Pacing Amplitude (volts) 2.0 V [facility] Jaxson LV Pacing Polarity BI [facility] Jaxson LV Pacing Pulse Width (ms) 1.0 ms [facility] Jaxson RA Pacing Amplitude (volts) 1.5 V [facility] Jaxson RA Pacing Polarity BI [facility] Jaxson RA Pacing Pulse Width (ms) 0.4 ms [facility] Jaxson RA Sensing Amplitude (mvolts) 0.3 mV [facility] Jaxson RA Sensing Blanking Period (ms) 150 ms [facility] Jaxson RA Sensing Polarity BI [facility] Jaxson RA Sensing Refractory Period (ms) 300 ms [facility] Jaxson RV Pacing Amplitude (volts) 2.0 V [facility] Jaxson RV Pacing Polarity BI [facility] Jaxson RV Pacing Pulse Width (ms) 0.4 ms [facility] Jaxson RV Sensing Amplitude (mvolts) 0.45 mV [facility] Jaxson RV Sensing Blanking Period (ms) 230 ms [facility] Jaxson RV Sensing Polarity BI [facility] Detection Configuration (Vent) 2 - Zone [facility] FastVT_Detection Interval 320 ms [facility] FastVT_Therapy Configuration 1 ATP(s) + 6 Shock(s) [facility] ICD AFIB DetectionStatus ENABLED [facility] ICD ATAF DetectionInterval ms 350 ms [facility] ICD ATAF DetectionStatus ENABLED [facility] ICD FastVT DetectionStatus ENABLED [facility] ICD-ADLRATE_BPM 85 {beats}/min [facility] ICD-AMS EPISODES 171 {beats}/min [facility] ICD-ATP Episodes (Vent) 0 [facility] ICD-ATRIALFIBRILLATION 0 Cl [facility] ICD-Device Mfg MDT [facility] ICD-LEADIMPEDANCEATRIA L 380 ohm [facility] ICD-Percent Pacing (Atrial) 24.64 % [facility] ICD-Percent Pacing (Vent) 98.21 % [facility] ICD-PMT Intervention Enabled [facility] ICD-PVC Intervention Enabled [facility] ICD-Rate Modulation Acceleration Reaction 30 s [facility] ICD-Rate Modulation Deceleration Exercise [facility] ICD-Rate Modulation Cow[place] 3 [facility] ICD-Rate Modulation Threshold Medium High [facility] ICD-Shocks Aborted (Vent) 0 [facility] [id number] 0 [facility] ICD-SHOCKSABORTED 0 [facility] ICD-SHOCKSDELIVEREDVEN TRICULAR 0 [facility] ICD-Ventricular Fibrillation 0 [facility] ICD-VVDELAY_MS 0 ms [facility] Implant Date 09/26/2022 [facility] Lead Impedance (LV) 646 ohm [facility] Lead Impedance (RV) 209 ohm [facility] Lead Impedance High Voltage 43 ohm [facility] Lead1 Mfg MDT [facility] Lead2 Mfg MDT [facility] Lead3 Mfg MDT [facility] Location LV [facility] Location RA [facility] Location RV [facility] Lower Rate (bpm) 60 {beats}/min [facility] LV PACING % 98.16 % [facility] Max Sensor Rate (bpm) 130 {beats}/min [facility] MDT_PROG_TACHY_ZONE_DE TECTIONS_STATUS ENABLED [facility] Model [id number] [place] XT HF Quad MATTRESS STRIPPER-D MRI [facility] Model 4298 Attain Performa [facility] Model 5076 CapSureFix Novus [facility] Model 6947M Sprint Quattro Secure [facility] Pacing Mode DDDR [facility] Serial Number [id number] [facility] Serial Number [id number] [facility] Serial Number [id number] [facility] Serial Number [id number] [facility] Test Charge Energy 18.0 J [facility] Test Charge Time 3.7 s [facility] Therapy Status (Vent) Enabled [facility] Thresh LV Capture Amplitude (volts) 1.0 V [facility] Thresh LV Capture Duration (ms) 1.0 ms [facility] Thresh RA Capture Amplitude (volts) 0.625 V [facility] Thresh RA Capture Duration (ms) 0.4 ms [facility] Thresh RA Sensing Amplitude (mvolts) 3.9 mV [facility] Thresh RV Capture Amplitude (VOLTS) 1.0 V [facility] Thresh RV Capture Duration (MS) 0.4 ms [facility] Thresh RV Sensing Amplitude (MVOLTS) 8.1 mV [facility] Tracking Rate (bpm) 130 {beats}/min [facility] VF Zone Detection Interval 320 ms [facility] VF Zone Therapy Configuration 1 ATP(s) + 6 Shock(s) [facility] No Panel Informationon 04-03 BLANK _ [facility] ICD-ATRIALTACHYCARDIA 0 [facility] ICD-Fast Ventricular Tachycardia 0 [facility] Implant Date 09/27/2015 [facility] Absolute lymphocyte countOrd ered By: Yovani Brittany on 04-02-2023 Lymphocytes Auto (Unsp spec) [#/Vol] 41.94 10*3/uL 0.83-4.51 [facility] Basophil percentageOrdered B y: Yovani Smithbrenda on 04-02-2023 Basophils/100 WBC (Bld) 0.1 % 0-1 [facility] Chloride [Moles/Vol] 105 mmol/L 98-107 [facility] Eosinophils/100 WBC (Bld) 0.6 % 0-5 [facility] Glucose [Mass/Vol] 112 mg/dL 74-106 [facility] Comment on above: Fasting Glucose resu lt from 100 to 125 mg/dL suggests IMPAIRED HOMEOSTASIS per A.D.A. criteria. Neutrophils (Bld) [#/Vol] 6.1 10*3/uL 2.0-7.7 [facility] Neutrophils/100 WBC (Bld) 12.4 % 47-70 [facility] Potassium [Moles/Vol] 3.2 mmol/L 3.5-5.1 [facility] Sodium [Moles/Vol] 143 mmol/L 136-145 [facility] WBC (Bld) [#/Vol] 49.4 10*3/uL 4.4-11.0 [facility] Comment on above: CRITICAL VALUE VERIF IED. CALLED TO [id number]/20/23 0502 Manjinder Chambers.RESULTS READ BACK BY SAME. Blood erythrocytes count (nu mber/volume)Ordered By: Yovani Soto on 04-02-2023 RBC (Bld) [#/Vol] 3.24 10*6/uL 4.6-6.2 [facility] Blood hemoglobin measurement (mass/volume)Ordered By: Yovani Soto on 04-02-2023 Hemoglobin (Bld) [Mass/Vol] 8.5 g/dL 13.0-16.5 [facility] Blood lymphocytes/100 leukoc ytesOrdered By: Yovani Soto on 04-02-2023 Lymphocytes/100 WBC (Bld) 84.9 % 19-41 [facility] Blood manual differential co mment interpretation (narrative result)Ordered By: Yovani Soto on 04-02-2023 Manual differential comment Felice (Bld) [Interp] COMMENT [facility] Comment on above: LYMPHOCYTOSIS.LEUKOC YTOSIS. Blood monocytes/100 leukocyt esOrdered By: Yovani Soto on 04-02-2023 Monocytes/100 WBC (Bld) 1.7 % 0-10 [facility] Blood platelet mean volumeOr dered By: Yovani Soto on 04-02-2023 Platelet mean volume (Bld) [Entitic vol] 10.1 fL 6.2-12.0 [facility] Determination of erythrocyte mean corpuscular volume (MCV)Ordered By: Yovani Soto on 04-02-2023 MCV (RBC) [Entitic vol] 88.0 fL 80-94 [facility] Hematocrit Auto (Bld) [Volum e fraction]Ordered By: Yovani Soto on 04-02-2023 Hematocrit (Bld) [Volume fraction] 28.5 % 40-54 [facility] Laboratory - Chemistry and C hemistry - challengeOrdered By: Yovani Soto on 04-02-2023 CO2 [Moles/Vol] 31.0 mmol/L 21.0-32.0 [facility] Urea nitrogen/Creatinine [Mass ratio] 17.7 mg/mg 10-20 [facility] Laboratory - Hematology and Cell countsOrdered By: Yovani Soto on 04-02-2023 Erythrocyte distribution width (RBC) [Entitic vol] 61.1 fL 35.1-43.9 [facility] Erythrocyte distribution width (RBC) [Ratio] 19.3 % 11.6-14.6 [facility] Immature granulocytes/100 WBC (Bld) 0.300 % 0.0-0.9 [facility] Comment on above: IG% - Immature Granu locytes (promyelocytes, myelocytes and metamyelocytes) > 1% indicates that a LEFT SHIFT is Present. MCH (RBC) [Entitic mass] 26.2 pg 27.0-32.0 [facility] Nucleated RBC/100 WBC (Bld) [Ratio] 0 % 0-5 [facility] MCHC Auto (RBC) [Mass/Vol]Or dered By: Yovani Soto on 04-02-2023 MCHC (RBC) [Mass/Vol] 29.8 g/dL 32-36 [facility] No Panel InformationOrdered By: Yovani Soto on 04-02-2023 Estimated Creatinine Clearance Calc 26.21 ml/min [facility] Estimated GFR (MDRD) Amer 40 mL/min >60 [facility] Comment on above: GFR Calc Estimated GFR (MDRD) Non-Af Amer 33 mL/min >60 [facility] Comment on above: Non- GFR Calc Vitamin B12 Level > 2000 pg/mL 211-911 [facility] Platelets bldOrdered By: Connie Soto on 04-02-2023 Platelets (Bld) [#/Vol] 193 10*3/uL 150-450 [facility] Review by pathologistOrdered By: Yovani Soto on 04-02-2023 Pathologist review Felice (Unsp spec) [Interp] Ayesha adamson [facility] Pathologist review Felice (Unsp spec) [Interp] Reviewed [facility] Comment on above: Previous reported re sult: Ayesha adamson Edited by: RGOOD on 04/03/23:1010Absolute Lymphocytosis consistent with CLL.Normocytic anemia.Clinical correlation necessary.Hlolis Gallegos D.O. 04/03/23 AMENDED REPORT 04/03/23 1010 PATH REV previously reported as: Ayesha adamson Serum or plasma calcium jamila urement (mass/volume)Ordered By: Yovani Soto on 04-02-2023 Calcium [Mass/Vol] 8.6 mg/dL 8.5-10.1 [facility] Serum or plasma creatinine m easurement (mass/volume)Ordered By: Yovani Soto on 04-02-2023 Creatinine [Mass/Vol] 2.03 mg/dL 0.70-1.30 [facility] Comment on above: The validity of the calculated GFR & GFRAA in patients over 70 years has not been determined. Clinical correlation is essential. Serum or plasma urea nitroge n measurement (mass/volume)Ordered By: Yovani Soto on 04-02-2023 Urea nitrogen [Mass/Vol] 36 mg/dL 7-18 [facility] Thin prep Papanicolaou smear with manual screeningOrdered By: Yovani Soto on 04-02-2023 Thin prep Papanicolaou smear with manual screening 7 5-15 [facility] Basophil percentageOrdered B y: Zari White on 04-01-2023 Bilirubin [Mass/Vol] 0.40 mg/dL 0.20-1.00 [facility] Comment on above: For patients on eltr ombopag therapy, use of Dimension Beacon TBIL is not recommended. Cholesterol [Mass/Vol] 104 mg/dL <200 [facility] Comment on above: <200 mg/dL Desirable 200-240 mg/dL Borderline >240 mg/dL High Risk Protein [Mass/Vol] 5.0 g/dL 6.4-8.2 [facility] Triglyceride [Mass/Vol] 73 mg/dL <199 [facility] Comment on above: The drugs N-Acetylcy steine and Metamizole may falsely depress this assay.Serum Triglycerides Reference Interval Normal <150 mg/dL Borderline high 150 - 199 mg/dL High 200 - 499 mg/dL Very High > or = 500 mg/dL Iron measurement (mass/mass) Ordered By: Yovani Soto on 04-01-2023 Iron (Unsp spec) [Mass/Mass] 17 ug/dL 65-175 [facility] Laboratory - Chemistry and C hemistry - challengeOrdered By: Zari Jose on 04-01-2023 ALP [Catalytic activity/Vol] 61 U/L 45-117 [facility] ALT [Catalytic activity/Vol] 21 U/L 16-61 [facility] Globulin (S) [Mass/Vol] 2.4 g/dL 2.2-4.2 [facility] Laboratory - Chemistry and C hemistry - challengeOrdered By: Yovani Soto on 04-01-2023 Free T4 [Mass/Vol] 1.06 ng/dL 0.76-1.46 [facility] No Panel InformationOrdered By: Zari Jose on 04-01-2023 Thyroid Stimulating Hormone (TSH) 3.83 uIU/mL 0.358-3.74 [facility] No Panel InformationOrdered By: Yovani Soto on 04-01-2023 Total Iron Binding Capacity 231 ug/dL 250-450 [facility] Serum or plasma albumin jamila urement (mass/volume)Ordered By: Zari Jose on 04-01-2023 Albumin [Mass/Vol] 2.6 g/dL 3.2-5.0 [facility] Serum or plasma albumin/glob ulin mass ratioOrdered By: Zari Damon on 04-01-2023 Albumin/Globulin [Mass ratio] 1.1 {ratio} 0.9-2.4 [facility] Serum or plasma cholesterol in HDL measurement (mass/volume)Ordered By: Zari Jose on 04-01-2023 Cholesterol in HDL [Mass/Vol] 47 mg/dL >40 [facility] Comment on above: The drugs N-Acetylcy steine and Metamizole may falsely depress this assay. Reference Range HDL <40 mg/dL Low HDL Cholesterol HDL >or= 60 mg/dL High HDL Cholesterol Serum or plasma cholesterol in VLDL measurement (mass/volume)Ordered By: Zari Jose on 04-01-2023 Cholesterol in VLDL [Mass/Vol] 15 mg/dL 5-40 [facility] Serum or plasma ferritin sabine surement (mass/volume)Ordered By: Yovani Soto on 04-01-2023 Ferritin [Mass/Vol] 106 ng/mL 26-388 [facility] Serum or plasma folate measu rement (mass/volume)Ordered By: Yovani Soto on 04-01-2023 Folate [Mass/Vol] 16.10 ng/mL 3.1-55.4 [facility] Serum or plasma iron saturat ion measurement (mass fraction)Ordered By: Yovani Soto on 04-01-2023 Iron saturation [Mass fraction] 7.4 % 15.0-55.0 [facility] Serum or plasma low density lipoprotein (LDL) cholesterol measurement (mass/volume)Ordered By: Zari Jose on 04-01-2023 Cholesterol in LDL [Mass/Vol] 42 mg/dL 0-130 [facility] Thin prep Papanicolaou smear with manual screeningOrdered By: Zari Damon on 04-01-2023 Thin prep Papanicolaou smear with manual screening 15 U/L 15-37 [facility] Absolute lymphocyte countOrd ered By: Boston Jung on 03-31-2023 Lymphocytes Auto (Unsp spec) [#/Vol] 41.98 10*3/uL 0.83-4.51 [facility] Basophil percentageOrdered B y: Zari Jose on 03-31-2023 Basophil percentage 2.9 mg/dL 2.5-4.9 [facility] Basophil percentageOrdered B y: Boston Jung on 03-31-2023 Basophils/100 WBC (Bld) 0.1 % 0-1 [facility] Chloride [Moles/Vol] 107 mmol/L 98-107 [facility] Eosinophils/100 WBC (Bld) 0.4 % 0-5 [facility] Glucose [Mass/Vol] 130 mg/dL 74-106 [facility] Comment on above: Fasting Glucose resu lt greater than or equal to 126 mg/dL suggests DIABETES MELLITUS per A.D.A. criteria. Neutrophils (Bld) [#/Vol] 6.6 10*3/uL 2.0-7.7 [facility] Neutrophils/100 WBC (Bld) 12.8 % 47-70 [facility] Potassium [Moles/Vol] 4.2 mmol/L 3.5-5.1 [facility] Sodium [Moles/Vol] 140 mmol/L 136-145 [facility] WBC (Bld) [#/Vol] 51.2 10*3/uL 4.4-11.0 [facility] Comment on above: CRITICAL VALUE VERIF IED. CALLED TO [id number]/18/23 1445 Cornelia Cobb.RESULTS READ BACK BY SAME . Blood erythrocytes count (nu mber/volume)Ordered By: Boston Jung on 03-31-2023 RBC (Bld) [#/Vol] 3.00 10*6/uL 4.6-6.2 [facility] Blood hemoglobin measurement (mass/volume)Ordered By: Boston Jung on 03-31-2023 Hemoglobin (Bld) [Mass/Vol] 7.8 g/dL 13.0-16.5 [facility] Blood lymphocytes/100 leukoc ytesOrdered By: Boston Jung on 03-31-2023 Lymphocytes/100 WBC (Bld) 82.0 % 19-41 [facility] Blood manual differential co mment interpretation (narrative result)Ordered By: Boston Jung on 03-31-2023 Manual differential comment Felice (Bld) [Interp] COMMENT [facility] Comment on above: LEUKOCYTOSIS AND LYM PHOCYTOSIS NOTED Blood monocytes/100 leukocyt esOrdered By: Boston Jung on 03-31-2023 Monocytes/100 WBC (Bld) 4.3 % 0-10 [facility] Blood platelet mean volumeOr dered By: Boston Jung on 03-31-2023 Platelet mean volume (Bld) [Entitic vol] 9.9 fL 6.2-12.0 [facility] Determination of erythrocyte mean corpuscular volume (MCV)Ordered By: Boston Jung on 03-31-2023 MCV (RBC) [Entitic vol] 89.0 fL 80-94 [facility] Hematocrit Auto (Bld) [Volum e fraction]Ordered By: Boston Jung on 03-31-2023 Hematocrit (Bld) [Volume fraction] 26.7 % 40-54 [facility] Laboratory - Chemistry and C hemistry - challengeOrdered By: Boston Jung on 03-31-2023 CO2 [Moles/Vol] 30.0 mmol/L 21.0-32.0 [facility] Natriuretic peptide B (Bld) [Mass/Vol] 1597.3 pg/mL 0-100 [facility] Urea nitrogen/Creatinine [Mass ratio] 17.7 mg/mg 10-20 [facility] Laboratory - Chemistry and C hemistry - challengeOrdered By: Zari Jose on 03-31-2023 Magnesium [Mass/Vol] 2.1 mg/dL 1.6-2.6 [facility] Laboratory - Hematology and Cell countsOrdered By: Boston Jung on 03-31-2023 Erythrocyte distribution width (RBC) [Entitic vol] 63.7 fL 35.1-43.9 [facility] Erythrocyte distribution width (RBC) [Ratio] 19.9 % 11.6-14.6 [facility] Immature granulocytes/100 WBC (Bld) 0.400 % 0.0-0.9 [facility] Comment on above: IG% - Immature Granu locytes (promyelocytes, myelocytes and metamyelocytes) > 1% indicates that a LEFT SHIFT is Present. MCH (RBC) [Entitic mass] 26.0 pg 27.0-32.0 [facility] Nucleated RBC/100 WBC (Bld) [Ratio] 0 % 0-5 [facility] MCHC Auto (RBC) [Mass/Vol]Or dered By: Boston Jung on 03-31-2023 MCHC (RBC) [Mass/Vol] 29.2 g/dL 32-36 [facility] No Panel InformationOrdered By: Zari Jose on 03-31-2023 Troponin I High Sensitivity 52 pg/mL 3.0-78.0 [facility] Comment on above: Please Note: New Kacie t Units and Gender Specific Reference Ranges. For more information see Policy Stat Procedure Beacon High Sensitivity Troponin (TNIH) and attachments. No Panel InformationOrdered By: Boston Jung on 03-31-2023 Estimated Creatinine Clearance Calc 25.45 ml/min [facility] Estimated GFR (MDRD) Amer 39 mL/min >60 [facility] Comment on above: GFR Calc Estimated GFR (MDRD) Non-Af Amer 32 mL/min >60 [facility] Comment on above: Non- GFR Calc Troponin I High Sensitivity 61 pg/mL 3.0-78.0 [facility] Comment on above: Please Note: New Kacie t Units and Gender Specific Reference Ranges. For more information see Policy Stat Procedure Beacon High Sensitivity Troponin (TNIH) and attachments. Platelets bldOrdered By: Dar Jung on 03-31-2023 Platelets (Bld) [#/Vol] 171 10*3/uL 150-450 [facility] Review by pathologistOrdered By: Boston Jung on 03-31-2023 Pathologist review Felice (Unsp spec) [Interp] May juan diego [facility] Serum or plasma calcium jamila urement (mass/volume)Ordered By: Boston Jung on 03-31-2023 Calcium [Mass/Vol] 8.8 mg/dL 8.5-10.1 [facility] Serum or plasma creatinine m easurement (mass/volume)Ordered By: Boston Jung on 03-31-2023 Creatinine [Mass/Vol] 2.09 mg/dL 0.70-1.30 [facility] Comment on above: The validity of the calculated GFR & GFRAA in patients over 70 years has not been determined. Clinical correlation is essential. Serum or plasma urea nitroge n measurement (mass/volume)Ordered By: Boston Jung on 03-31-2023 Urea nitrogen [Mass/Vol] 37 mg/dL 7-18 [facility] Smudge cell detectionOrdered By: Boston Jung on 03-31-2023 Smudge cells LM Ql (Bld) 3+ [facility] Thin prep Papanicolaou smear with manual screeningOrdered By: Boston Jung on 03-31-2023 Thin prep Papanicolaou smear with manual screening 3 5-15 [facility] Lower GI hemoglobin IA Ql (S tl)Ordered By: Ean Bush on 03-27-2023 Stool Occult Blood (ROBERTA) [facility] Stool gastrointestinal hemog lobin detection by immunologic methodOrdered By: Ean Bush on 03-27-2023 Lower GI hemoglobin IA Ql (Stl) [facility] Lower GI hemoglobin IA Ql (Stl) [facility] .GFRon 03-22-2023 GFR Non- 37 ml/min/1.73sqm Normal [facility] ([place]) Comment on above: Result Comment: GFR Population mean for , [...] 15 mL/min/1.73 square meters Performed By: #### C BC, GFR, DIFF, URIC, MORPH, BMP, VIDH #### [address] [address] #### PTH #### [address] [address] GFR 45 ml/min/1.73sqm Normal [facility] ([place]) Comment on above: Result Comment: GFR Population mean for , [...] 15 mL/min/1.73 square meters Performed By: #### C BC, GFR, DIFF, URIC, MORPH, BMP, VIDH #### [address] [address] #### PTH #### [address] [address] .Manual Diffon 03-22-2023 Basophil %, Manual 0.0 % Normal 0.0-2.5 [facility] ([place]) Comment on above: Performed By: #### C BC, GFR, DIFF, URIC, MORPH, BMP, VIDH #### [address] [address] #### PTH #### [address] [address] Basophil, Abs Manual 0.0 10 3/mcL Normal 0.0-0.2 [facility] ([place]) Comment on above: Performed By: #### C BC, GFR, DIFF, URIC, MORPH, BMP, VIDH #### [place] [address] #### PTH #### [address] [address] Eosinophil %, Manual 5.0 % Normal 0.0-7.0 [facility] ([place]) Comment on above: Performed By: #### C BC, GFR, DIFF, URIC, MORPH, BMP, VIDH #### [place] [address] #### PTH #### [address] [address] Eosinophil, Abs Manual 3.0 10 3/mcL High 0.0-0.4 [facility] ([place]) Comment on above: Performed By: #### C BC, GFR, DIFF, URIC, MORPH, BMP, VIDH #### [place] [address] #### PTH #### [address] [address] Lymphocyte %, Manual 78.0 % High 10.0-50.0 [facility] ([place]) Comment on above: Performed By: #### C BC, GFR, DIFF, URIC, MORPH, BMP, VIDH #### [place] [address] #### PTH #### [address] [address] Lymphocyte, Abs Manual 47.4 10 3/mcL High 0.8-3.9 [facility] ([place]) Comment on above: Performed By: #### C BC, GFR, DIFF, URIC, MORPH, BMP, VIDH #### [place] [address] #### PTH #### [address] [address] Monocyte %, Manual 2.0 % Normal 1.7-13.0 [facility] ([place]) Comment on above: Performed By: #### C BC, GFR, DIFF, URIC, MORPH, BMP, VIDH #### [place] [address] #### PTH #### [address] [address] Monocyte, Abs Manual 1.2 10 3/mcL High 0.2-1.0 [facility] ([place]) Comment on above: Performed By: #### C BC, GFR, DIFF, URIC, MORPH, BMP, VIDH #### [place] [address] #### PTH #### [place] [address] Neutrophil %, Manual 15.0 % Low 37.0-80.0 [facility] ([place]) Comment on above: Performed By: #### C BC, GFR, DIFF, URIC, MORPH, BMP, VIDH #### [place] [address] #### PTH #### [place] [address] Neutrophil, Abs Manual 9.1 10 3/mcL High 2.9-6.2 [facility] ([place]) Comment on above: Performed By: #### C BC, GFR, DIFF, URIC, MORPH, BMP, VIDH #### [place] [address] #### PTH #### [place] [address] Nucleated RBC 0.0 /100 WBC Normal [facility] ([place]) Comment on above: Performed By: #### C BC, GFR, DIFF, URIC, MORPH, BMP, VIDH #### [place] [address] #### PTH #### [place] [address] .Morphon 03-22-2023 Acanthocytes 1+ Normal [facility] ([place]) Comment on above: Performed By: #### C BC, GFR, DIFF, URIC, MORPH, BMP, VIDH #### [address] [address] #### PTH #### [address] [address] Anisocytosis Ql (Bld) 1+ Normal [facility] ([place]) Comment on above: Performed By: #### C BC, GFR, DIFF, URIC, MORPH, BMP, VIDH #### [address] [address] #### PTH #### [place] [address] Hypochrom 1+ Normal [facility] ([place]) Comment on above: Performed By: #### C BC, GFR, DIFF, URIC, MORPH, BMP, VIDH #### [address] [address] #### PTH #### [place] [address] Ovalocytes 1+ Normal [facility] ([place]) Comment on above: Performed By: #### C BC, GFR, DIFF, URIC, MORPH, BMP, VIDH #### [address] [address] #### PTH #### [place] [address] Platelet Estimate Normal [facility] ([place]) Comment on above: Performed By: #### C BC, GFR, DIFF, URIC, MORPH, BMP, VIDH #### [place] [address] #### PTH #### [place] [address] Poik 1+ Normal [facility] ([place]) Comment on above: Performed By: #### C BC, GFR, DIFF, URIC, MORPH, BMP, VIDH #### [address] [address] #### PTH #### [place] [address] Smudge Cells 2+ Normal [facility] ([place]) Comment on above: Performed By: #### C BC, GFR, DIFF, URIC, MORPH, BMP, VIDH #### [place] [address] #### PTH #### [place] [address] CBCon 03-22-2023 Erythrocyte distribution width (RBC) [Ratio] 21.0 % High 11.5-14.5 [facility] ([place]) Comment on above: Performed By: #### C BC, GFR, DIFF, URIC, MORPH, BMP, VIDH #### [place] [address] #### PTH #### [place] [address] Hematocrit (Bld) [Volume fraction] 28.4 % Low 42.0-52.0 [facility] ([place]) Comment on above: Performed By: #### C BC, GFR, DIFF, URIC, MORPH, BMP, VIDH #### [place] [address] #### PTH #### [place] [address] Hgb 8.7 G/dL Low 14.0-18.0 [facility] ([place]) Comment on above: Performed By: #### C BC, GFR, DIFF, URIC, MORPH, BMP, VIDH #### [place] [address] #### PTH #### [place] [address] MCH (RBC) [Entitic mass] 26.0 pg Low 27.0-31.2 [facility] ([place]) Comment on above: Performed By: #### C BC, GFR, DIFF, URIC, MORPH, BMP, VIDH #### [place] [address] #### PTH #### [place] [address] MCHC 30.8 G/dL Low 31.8-35.4 [facility] ([place] Comment on above: Performed By: #### C BC, GFR, DIFF, URIC, MORPH, BMP, VIDH #### [place] [address] #### PTH #### [place] [address] MCV (RBC) [Entitic vol] 84.4 fL Normal 80.0-94.0 [facility] ([place]) Comment on above: Performed By: #### C BC, GFR, DIFF, URIC, MORPH, BMP, VIDH #### [place] [address] #### PTH #### [place] [address] Platelet 231 10 3/mcL Normal 130-400 [facility] ([place]) Comment on above: Performed By: #### C BC, GFR, DIFF, URIC, MORPH, BMP, VIDH #### [place] [address] #### PTH #### [place] [address] Platelet mean volume (Bld) [Entitic vol] 7.6 fL Normal 7.4-10.4 [facility] ([place]) Comment on above: Performed By: #### C BC, GFR, DIFF, URIC, MORPH, BMP, VIDH #### [place] [address] #### PTH #### [place] [address] RBC 3.37 10 6/mcL Low 4.04-6.13 [facility] ([place]) Comment on above: Performed By: #### C BC, GFR, DIFF, URIC, MORPH, BMP, VIDH #### [place] [address] #### PTH #### [place] [address] WBC 60.7 10 3/mcL Critically abnormal 4.6-10.8 [facility] ([place]) Comment on above: Performed By: #### C BC, GFR, DIFF, URIC, MORPH, BMP, VIDH #### [place] [address] #### PTH #### [address] [address] CMPon 03-22-2023 Albumin Level 3.4 G/dL Normal 3.4-4.8 [facility] ([place]) Comment on above: Performed By: #### C BC, GFR, DIFF, URIC, MORPH, BMP, VIDH #### [address] [address] #### PTH #### [address] [address] Albumin/Globulin [Mass ratio] 1.8 {ratio} Normal 1.1-2.5 [facility] ([place]) Comment on above: Performed By: #### C BC, GFR, DIFF, URIC, MORPH, BMP, VIDH #### [place] [address] #### PTH #### [address] [address] ALP [Catalytic activity/Vol] 66 U/L Normal 40-135 [facility] ([place]) Comment on above: Performed By: #### C BC, GFR, DIFF, URIC, MORPH, BMP, VIDH #### [place] [address] #### PTH #### [address] [address] ALT [Catalytic activity/Vol] 17 U/L Normal 16-63 [facility] ([place]) Comment on above: Performed By: #### C BC, GFR, DIFF, URIC, MORPH, BMP, VIDH #### [place] [address] #### PTH #### [address] [address] AST [Catalytic activity/Vol] 17 U/L Normal 10-40 [facility] ([place]) Comment on above: Performed By: #### C BC, GFR, DIFF, URIC, MORPH, BMP, VIDH #### [place] [address] #### PTH #### [address] [address] Bili Total 0.5 mg/dL Normal 0.2-1.0 [facility] ([place]) Comment on above: Result Comment: Use of this assay is not recommended for patients undergoing treatment with eltrombopag due to the potential for falsely elevated results. Performed By: #### C BC, GFR, DIFF, URIC, MORPH, BMP, VIDH #### [place] [address] #### PTH #### [address] [address] BUN/Creatinine Ratio 13 ratio Normal 7-27 [facility] ([place]) Comment on above: Performed By: #### C BC, GFR, DIFF, URIC, MORPH, BMP, VIDH #### [place] [address] #### PTH #### [address] [address] Calcium [Mass/Vol] 9.2 mg/dL Normal 8.4-10.2 [facility] ([place]) Comment on above: Performed By: #### C BC, GFR, DIFF, URIC, MORPH, BMP, VIDH #### [place] [address] #### PTH #### [address] [address] Chloride [Moles/Vol] 109 mmol/L High 98-107 [facility] ([place]) Comment on above: Performed By: #### C BC, GFR, DIFF, URIC, MORPH, BMP, VIDH #### [place] [address] #### PTH #### [address] [address] CO2 [Moles/Vol] 27 mmol/L Normal 23-31 [facility] ([place]) Comment on above: Performed By: #### C BC, GFR, DIFF, URIC, MORPH, BMP, VIDH #### [place] [address] #### PTH #### [address] [address] Creatinine [Mass/Vol] 1.76 mg/dL High 0.70-1.30 [facility] ([place]) Comment on above: Performed By: #### C BC, GFR, DIFF, URIC, MORPH, BMP, VIDH #### [address] [address] #### PTH #### [address] [address] Electrolyte Balance 9.0 mEq/L Normal 4.0-15.0 [facility] ([place]) Comment on above: Performed By: #### C BC, GFR, DIFF, URIC, MORPH, BMP, VIDH #### [address] [address] #### PTH #### [address] [address] Globulin 1.9 G/dL Normal [facility] ([place]) Comment on above: Performed By: #### C BC, GFR, DIFF, URIC, MORPH, BMP, VIDH #### [address] [address] #### PTH #### [address] [address] Glucose [Mass/Vol] 85 mg/dL Normal 83-110 [facility] ([place]) Comment on above: Performed By: #### C BC, GFR, DIFF, URIC, MORPH, BMP, VIDH #### [address] [address] #### PTH #### [address] [address] Potassium [Moles/Vol] 4.1 mmol/L Normal 3.5-5.1 [facility] ([place]) Comment on above: Performed By: #### C BC, GFR, DIFF, URIC, MORPH, BMP, VIDH #### [address] [address] #### PTH #### [address] [address] Sodium [Moles/Vol] 145 mmol/L Normal 136-145 [facility] ([place]) Comment on above: Performed By: #### C BC, GFR, DIFF, URIC, MORPH, BMP, VIDH #### [address] [address] #### PTH #### [address] [address] Total Protein 5.3 G/dL Low 6.4-8.2 [facility] ([place]) Comment on above: Performed By: #### C BC, GFR, DIFF, URIC, MORPH, BMP, VIDH #### [place] [address] #### PTH #### [place] [address] Urea nitrogen [Mass/Vol] 23 mg/dL High 7-18 [facility] ([place]) Comment on above: Performed By: #### C BC, GFR, DIFF, URIC, MORPH, BMP, VIDH #### [place] [address] #### PTH #### [address] [address] FEon 03-22-2023 Iron [Mass/Vol] 31 ug/dL Low 65-175 [facility] ([place]) Comment on above: Performed By: #### C BC, GFR, DIFF, URIC, MORPH, BMP, VIDH #### [place] [address] #### PTH #### [place] [address] Basilio 03-22-2023 Ferritin [Mass/Vol] 80.0 ng/mL Normal 26.0-388.0 [facility] ([place]) Comment on above: Performed By: #### C BC, GFR, DIFF, URIC, MORPH, BMP, VIDH #### [place] [address] #### PTH #### [place] [address] Absolute lymphocyte countOrd ered By: Ean Bush on 03-20-2023 Lymphocytes Auto (Unsp spec) [#/Vol] 64.59 10*3/uL 0.83-4.51 [facility] Basophil percentageOrdered B y: Ean Bush on 03-20-2023 Basophils/100 WBC (Bld) 0.3 % 0-1 [facility] Bilirubin [Mass/Vol] 0.40 mg/dL 0.20-1.00 [facility] Comment on above: For patients on eltr ombopag therapy, use of Dimension Beacon TBIL is not recommended. Chloride [Moles/Vol] 111 mmol/L 98-107 [facility] Eosinophils/100 WBC (Bld) 0.7 % 0-5 [facility] Glucose [Mass/Vol] 120 mg/dL 74-106 [facility] Comment on above: Fasting Glucose resu lt from 100 to 125 mg/dL suggests IMPAIRED HOMEOSTASIS per A.D.A. criteria. LDH [Catalytic activity/Vol] 247 U/L 87-241 [facility] Neutrophils (Bld) [#/Vol] 6.5 10*3/uL 2.0-7.7 [facility] Neutrophils/100 WBC (Bld) 8.9 % 47-70 [facility] Potassium [Moles/Vol] 4.3 mmol/L 3.5-5.1 [facility] Protein [Mass/Vol] 5.5 g/dL 6.4-8.2 [facility] Sodium [Moles/Vol] 144 mmol/L 136-145 [facility] WBC (Bld) [#/Vol] 73.1 10*3/uL 4.4-11.0 [facility] Comment on above: CRITICAL VALUE VERIF IED. CALLED TO FADY SHIPMAN (ONC)03/20/23 1429 Eulalio Dietz.RESULTS READ BACK BY SAME. Blood erythrocytes count (nu mber/volume)Ordered By: Ean Eleazar on 03-20-2023 RBC (Bld) [#/Vol] 3.60 10*6/uL 4.6-6.2 [facility] Blood hemoglobin measurement (mass/volume)Ordered By: Ean Bush on 03-20-2023 Hemoglobin (Bld) [Mass/Vol] 9.2 g/dL 13.0-16.5 [facility] Blood lymphocytes/100 leukoc ytesOrdered By: Ean Bush on 03-20-2023 Lymphocytes/100 WBC (Bld) 88.4 % 19-41 [facility] Blood manual differential co mment interpretation (narrative result)Ordered By: Ean Bush on 03-20-2023 Manual differential comment Felice (Bld) [Interp] COMMENT [facility] Comment on above: LYMPHOCYTOSIS.LEUKOC YTOSIS. Blood monocytes/100 leukocyt esOrdered By: Ean Bush on 03-20-2023 Monocytes/100 WBC (Bld) 1.4 % 0-10 [facility] Blood platelet mean volumeOr dered By: Ean Bush on 03-20-2023 Platelet mean volume (Bld) [Entitic vol] 9.6 fL 6.2-12.0 [facility] Determination of erythrocyte mean corpuscular volume (MCV)Ordered By: Ean Bush on 03-20-2023 MCV (RBC) [Entitic vol] 90.0 fL 80-94 [facility] Hematocrit Auto (Bld) [Volum e fraction]Ordered By: Ean Bush on 03-20-2023 Hematocrit (Bld) [Volume fraction] 32.4 % 40-54 [facility] Iron measurement (mass/mass) Ordered By: Ean Bush on 03-20-2023 Iron (Unsp spec) [Mass/Mass] 37 ug/dL 65-175 [facility] Laboratory - Chemistry and C hemistry - challengeOrdered By: Ean Bush on 03-20-2023 ALP [Catalytic activity/Vol] 65 U/L 45-117 [facility] ALT [Catalytic activity/Vol] 15 U/L 16-61 [facility] CO2 [Moles/Vol] 29.0 mmol/L 21.0-32.0 [facility] Globulin (S) [Mass/Vol] 2.2 g/dL 2.2-4.2 [facility] Urea nitrogen/Creatinine [Mass ratio] 19.0 mg/mg 10-20 [facility] Laboratory - Hematology and Cell countsOrdered By: Ean Bush on 03-20-2023 Erythrocyte distribution width (RBC) [Entitic vol] 63.2 fL 35.1-43.9 [facility] Erythrocyte distribution width (RBC) [Ratio] 19.8 % 11.6-14.6 [facility] Immature granulocytes/100 WBC (Bld) 0.300 % 0.0-0.9 [facility] Comment on above: IG% - Immature Granu locytes (promyelocytes, myelocytes and metamyelocytes) > 1% indicates that a LEFT SHIFT is Present. MCH (RBC) [Entitic mass] 25.6 pg 27.0-32.0 [facility] Nucleated RBC/100 WBC (Bld) [Ratio] 0 % 0-5 [facility] MCHC Auto (RBC) [Mass/Vol]Or dered By: Ean Bush on 03-20-2023 MCHC (RBC) [Mass/Vol] 28.4 g/dL 32-36 [facility] Manual differential comment Felice (Bld) [Interp]Ordered By: Ean Bush on 03-20-2023 Differential Comment COMMENT [facility] Comment on above: LYMPHOCYTOSIS.LEUKOC YTOSIS. No Panel InformationOrdered By: Ean Bush on 03-20-2023 Estimated Creatinine Clearance Calc 30.57 ml/min [facility] Estimated GFR (MDRD) Amer 48 mL/min >60 [facility] Comment on above: GFR Calc Estimated GFR (MDRD) Non-Af Amer 40 mL/min >60 [facility] Comment on above: Non- GFR Calc Prostate Specific Antigen Total 0.09 ng/mL 0.0-4.0 [facility] Comment on above: This test was perfor med using the TPSA assay method [facility]. Values obtained with differentassay methods cannot be used interchangably.When changing PSA assays in the course of monitoring apatient, additional sequential testing should be carriedout to confirm baseline values. Total Iron Binding Capacity 273 ug/dL 250-450 [facility] Platelets bldOrdered By: Marc Bush on 03-20-2023 Platelets (Bld) [#/Vol] 271 10*3/uL 150-450 [facility] Review by pathologistOrdered By: Ean Bush on 03-20-2023 Pathologist review Felice (Unsp spec) [Interp] Reviewed [facility] Comment on above: Previous reported re sult: Ayesha adamson Edited by: JOSÉ LUIS on 03/22/23:0915Absolute lymphocytosis suggestive of low grade lympho-proliferative disorder.Normocytic anemia.Clinical correlation is necessary. Roby Michelle M.D. 03/22/23 AMENDED REPORT 03/22/23914 PATH REV previously reported as: Ayesha adamson Serum or plasma albumin jamila urement (mass/volume)Ordered By: Ean Bush on 03-20-2023 Albumin [Mass/Vol] 3.3 g/dL 3.2-5.0 [facility] Serum or plasma albumin/glob ulin mass ratioOrdered By: Ean Bush on 03-20-2023 Albumin/Globulin [Mass ratio] 1.5 {ratio} 0.9-2.4 [facility] Serum or plasma calcium jamila urement (mass/volume)Ordered By: Ean Bush on 03-20-2023 Calcium [Mass/Vol] 8.9 mg/dL 8.5-10.1 [facility] Serum or plasma creatinine m easurement (mass/volume)Ordered By: Ean Bush on 03-20-2023 Creatinine [Mass/Vol] 1.74 mg/dL 0.70-1.30 [facility] Comment on above: The validity of the calculated GFR & GFRAA in patients over 70 years has not been determined. Clinical correlation is essential. Serum or plasma ferritin sabine surement (mass/volume)Ordered By: Ean Bush on 03-20-2023 Ferritin [Mass/Vol] 72 ng/mL 26-388 [facility] Serum or plasma iron saturat ion measurement (mass fraction)Ordered By: Ean Bush on 03-20-2023 Iron saturation [Mass fraction] 13.6 % 15.0-55.0 [facility] Serum or plasma urea nitroge n measurement (mass/volume)Ordered By: Ean Bush on 03-20-2023 Urea nitrogen [Mass/Vol] 33 mg/dL 7-18 [facility] Thin prep Papanicolaou smear with manual screeningOrdered By: Ean Bush on 03-20-2023 Thin prep Papanicolaou smear with manual screening 19 U/L 15-37 [facility] Thin prep Papanicolaou smear with manual screening 4 5-15 [facility] Absolute lymphocyte countOrd ered By: Mehreen Cavazos on 03-15-2023 Lymphocytes Auto (Unsp spec) [#/Vol] 55.55 10*3/uL 0.83-4.51 [facility] Basophil percentageOrdered B y: Mehreen Cavazos on 03-15-2023 Basophils/100 WBC (Bld) 0.2 % 0-1 [facility] Chloride [Moles/Vol] 113 mmol/L 98-107 [facility] Eosinophils/100 WBC (Bld) 0.2 % 0-5 [facility] Glucose [Mass/Vol] 102 mg/dL 74-106 [facility] Comment on above: Fasting Glucose resu lt from 100 to 125 mg/dL suggests IMPAIRED HOMEOSTASIS per A.D.A. criteria. Neutrophils (Bld) [#/Vol] 10.9 10*3/uL 2.0-7.7 [facility] Neutrophils/100 WBC (Bld) 16.0 % 47-70 [facility] Potassium [Moles/Vol] 3.3 mmol/L 3.5-5.1 [facility] Sodium [Moles/Vol] 144 mmol/L 136-145 [facility] WBC (Bld) [#/Vol] 68.6 10*3/uL 4.4-11.0 [facility] Comment on above: CRITICAL VALUE VERIF IED. CALLED TO HUANG SHIPMAN (MS3)03/15/23 9230 Eulalio Dietz.RESULTS READ BACK BY SAME. Blood erythrocytes count (nu mber/volume)Ordered By: Mehreen Cavazos on 03-15-2023 RBC (Bld) [#/Vol] 3.22 10*6/uL 4.6-6.2 [facility] Blood hemoglobin measurement (mass/volume)Ordered By: Mehreen Cavazos on 03-15-2023 Hemoglobin (Bld) [Mass/Vol] 8.3 g/dL 13.0-16.5 [facility] Blood lymphocytes/100 leukoc ytesOrdered By: Mehreen Cavazos on 03-15-2023 Lymphocytes/100 WBC (Bld) 80.9 % 19-41 [facility] Blood manual differential co mment interpretation (narrative result)Ordered By: Mehreen Cavazos on 03-15-2023 Manual differential comment Felice (Bld) [Interp] COMMENT [facility] Comment on above: LYMPHOCYTOSIS.LEUKOC YTOSIS. Blood monocytes/100 leukocyt esOrdered By: Mehreen Cavazos on 03-15-2023 Monocytes/100 WBC (Bld) 2.1 % 0-10 [facility] Blood platelet mean volumeOr dered By: Mehreen Cavazos on 03-15-2023 Platelet mean volume (Bld) [Entitic vol] 9.9 fL 6.2-12.0 [facility] Determination of erythrocyte mean corpuscular volume (MCV)Ordered By: Mehreen Cavazos on 03-15-2023 MCV (RBC) [Entitic vol] 87.9 fL 80-94 [facility] Hematocrit Auto (Bld) [Volum e fraction]Ordered By: Mehreen Cavazos on 03-15-2023 Hematocrit (Bld) [Volume fraction] 28.3 % 40-54 [facility] Laboratory - Chemistry and C hemistry - challengeOrdered By: Mehreen Cavazos on 03-15-2023 CO2 [Moles/Vol] 22.0 mmol/L 21.0-32.0 [facility] Urea nitrogen/Creatinine [Mass ratio] 16.8 mg/mg 10-20 [facility] Laboratory - Hematology and Cell countsOrdered By: Mehreen Cavazos on 03-15-2023 Erythrocyte distribution width (RBC) [Entitic vol] 59.6 fL 35.1-43.9 [facility] Erythrocyte distribution width (RBC) [Ratio] 19.0 % 11.6-14.6 [facility] Immature granulocytes/100 WBC (Bld) 0.600 % 0.0-0.9 [facility] Comment on above: IG% - Immature Granu locytes (promyelocytes, myelocytes and metamyelocytes) > 1% indicates that a LEFT SHIFT is Present. MCH (RBC) [Entitic mass] 25.8 pg 27.0-32.0 [facility] Nucleated RBC/100 WBC (Bld) [Ratio] 0 % 0-5 [facility] MCHC Auto (RBC) [Mass/Vol]Or dered By: Mehreen Cavazos on 03-15-2023 MCHC (RBC) [Mass/Vol] 29.3 g/dL 32-36 [facility] No Panel InformationOrdered By: Mehreen Cavazos on 03-15-2023 Estimated Creatinine Clearance Calc 31.86 ml/min [facility] Estimated GFR (MDRD) Amer 51 mL/min >60 [facility] Comment on above: GFR Calc Estimated GFR (MDRD) Non-Af Amer 42 mL/min >60 [facility] Comment on above: Non- GFR Calc Platelets bldOrdered By: Angel Cavazos on 03-15-2023 Platelets (Bld) [#/Vol] 243 10*3/uL 150-450 [facility] Review by pathologistOrdered By: Mehreen Cavazos on 03-15-2023 Pathologist review Felice (Unsp spec) [Interp] Ayesha adamson [facility] Pathologist review Felice (Unsp spec) [Interp] Reviewed [facility] Comment on above: Previous reported re sult: Ayesha adamson Edited by: RGOOD on 03/15/23:1358Absolute lymphocytosis suggestive of low grade lympho-proliferative disorder.Normocytic anemia.Clinical correlation is necessary. Roby Michelle M.D. 03/15/23 AMENDED REPORT 03/15/23 1358 PATH REV previously reported as: Ayesha adamson Serum or plasma calcium jamila urement (mass/volume)Ordered By: Mehreen Cavazos on 03-15-2023 Calcium [Mass/Vol] 7.5 mg/dL 8.5-10.1 [facility] Serum or plasma creatinine m easurement (mass/volume)Ordered By: Mehreen Cavazos on 03-15-2023 Creatinine [Mass/Vol] 1.67 mg/dL 0.70-1.30 [facility] Comment on above: The validity of the calculated GFR & GFRAA in patients over 70 years has not been determined. Clinical correlation is essential. Serum or plasma urea nitroge n measurement (mass/volume)Ordered By: Mehreen Cavazos on 03-15-2023 Urea nitrogen [Mass/Vol] 28 mg/dL 7-18 [facility] Thin prep Papanicolaou smear with manual screeningOrdered By: Mehreen Cavazos on 03-15-2023 Thin prep Papanicolaou smear with manual screening 9 5-15 [facility] Basophil percentageOrdered B y: Mehreen Cavazos on 03-14-2023 Basophil percentage 2.8 mg/dL 2.5-4.9 [facility] INR in Blood by Coagulation assayOrdered By: Amilcar Pisano on 03-14-2023 INR Coag (Bld) [Relative time] 1.1 {INR} [facility] Laboratory - Chemistry and C hemistry - challengeOrdered By: Mehreen Cavazos on 03-14-2023 Magnesium [Mass/Vol] 1.9 mg/dL 1.6-2.6 [facility] Laboratory - CoagulationOrde red By: Amilcar Pisano on 03-14-2023 aPTT Coag (Bld) [Time] 26.3 s 24.1-36.2 [facility] PT Coag (PPP) [Time] 14.2 s 11.7-14.9 [facility] Basophil percentageOrdered B y: Braxton Powers on 03-12-2023 Basophil percentage 0-5 SEEN /hpf 0-5 [facility] Basophil percentageOrdered B y: Janine Payne on 03-12-2023 Amylase [Catalytic activity/Vol] 36 U/L 25-115 [facility] Bilirubin [Mass/Vol] 0.40 mg/dL 0.20-1.00 [facility] Comment on above: For patients on eltr ombopag therapy, use of Dimension Beacon TBIL is not recommended. Protein [Mass/Vol] 5.6 g/dL 6.4-8.2 [facility] Bilirubin Test strip Ql (U)O rdered By: Braxton Powers on 03-12-2023 Bilirubin Ql (U) Negative Negative [facility] Blood platelet adequacy dete ction by light microscopyOrdered By: Janine Payne on 03-12-2023 Platelets LM Ql (Bld) ADEQUATE ADEQ [facility] Culture, urineOrdered By: Carmela Payne on 03-12-2023 Bacteria identified Cx Nom (U) Culture exhibits no growth. [facility] Bacteria identified Cx Nom (U) Culture exhibits no growth. [facility] Ketones Test strip Ql (U)Ord ered By: Braxton Powers on 03-12-2023 Ketones Ql (U) Negative Negative [facility] Laboratory - Chemistry and C hemistry - challengeOrdered By: Janine Payne on 03-12-2023 ALP [Catalytic activity/Vol] 80 U/L 45-117 [facility] ALT [Catalytic activity/Vol] 25 U/L 16-61 [facility] Globulin (S) [Mass/Vol] 2.6 g/dL 2.2-4.2 [facility] Lipase [Catalytic activity/Vol] 12 U/L 13-75 [facility] Comment on above: Please note:LIPASE r evised reference range effective 22. New Lipase methodology. Expected to produce lower values than the previous assay method. NEW Reference Range: 13 - 75 U/L Laboratory - Hematology and Cell countsOrdered By: Janine Payne on 03-12-2023 Anisocytosis Ql (Bld) RARE [facility] Mucus LM Ql (Urine sed)Order ed By: Braxton Powers on 03-12-2023 Mucus Ql (Urine sed) 0 SEEN /hpf [facility] Nitrite Test strip Ql (U)Ord ered By: Braxton Powers on 03-12-2023 Nitrite Ql (U) Negative Negative [facility] Ovalocyte detectionOrdered B y: Janine Payne on 03-12-2023 Ovalocytes LM Ql (Bld) RARE [facility] Protein Test strip Ql (U)Ord ered By: Braxton Powers on 03-12-2023 Protein Ql (U) 30 mg/dl Negative [facility] RBC morphologyOrdered By: Carmela Payne on 03-12-2023 RBC morphology finding Nom (Bld) N CHROM NORMAL NORM C&C [facility] Serum or plasma albumin jamila urement (mass/volume)Ordered By: Janine Payne on 03-12-2023 Albumin [Mass/Vol] 3.0 g/dL 3.2-5.0 [facility] Serum or plasma albumin/glob ulin mass ratioOrdered By: Janine Payne on 03-12-2023 Albumin/Globulin [Mass ratio] 1.2 {ratio} 0.9-2.4 [facility] Squamous epithelial cells de tection in urine sediment by light microscopyOrdered By: Braxton Powers on 03-12-2023 Epithelial cells.squamous LM Ql (Urine sed) 0 SEEN /hpf 0-5 [facility] Thin prep Papanicolaou smear with manual screeningOrdered By: Janine Payne on 03-12-2023 Thin prep Papanicolaou smear with manual screening 23 U/L 15-37 [facility] Urine blood detectionOrdered By: Braxton Powers on 03-12-2023 RBC Ql (U) 10 /ul Negative [facility] RBC Ql (U) 0 SEEN /hpf 0-5 [facility] Urine clarityOrdered By: Tee Powers on 03-12-2023 Clarity (U) Clear Clear [facility] Urine color determinationOrd ered By: Braxton Powers on 03-12-2023 Color (U) Yellow Yellow [facility] Urine glucose detectionOrder ed By: Braxton Powers on 03-12-2023 Glucose Ql (U) 100 mg/dl Normal [facility] Urine leukocyte esterase det ection by dipstickOrdered By: Braxton Powers on 03-12-2023 Leukocyte esterase Test strip Ql (U) Negative Negative [facility] Urine pHOrdered By: Braxton Powers on 03-12-2023 pH (U) 6.5 [pH] 5.0 - 8.0 [facility] Urine sediment bacteria coun t by microscopy (number/high power field)Ordered By: Braxton Powers on 03-12-2023 Bacteria LM.HPF (Urine sed) [#/Area] 0 /[HPF] None Seen [facility] Urine specific gravity measu rementOrdered By: Braxton Powers on 03-12-2023 Specific gravity (U) [Rel density] 1.015 1.002-1.030 [facility] Urobilinogen Auto test strip Ql (U)Ordered By: Braxton Powers on 03-12-2023 Urobilinogen Ql (U) Normal mg/dl Normal [facility] Absolute lymphocyte countOrd ered By: Laura Bowman on 03-08-2023 Lymphocytes Auto (Unsp spec) [#/Vol] 51.57 10*3/uL 0.83-4.51 [facility] Basophil percentageOrdered B y: Laura Bowman on 03-08-2023 Basophils/100 WBC (Bld) 0.2 % 0-1 [facility] Chloride [Moles/Vol] 110 mmol/L 98-107 [facility] Eosinophils/100 WBC (Bld) 0.4 % 0-5 [facility] Glucose [Mass/Vol] 123 mg/dL 74-106 [facility] Comment on above: Fasting Glucose resu lt from 100 to 125 mg/dL suggests IMPAIRED HOMEOSTASIS per A.D.A. criteria. Neutrophils (Bld) [#/Vol] 6.9 10*3/uL 2.0-7.7 [facility] Neutrophils/100 WBC (Bld) 11.5 % 47-70 [facility] Potassium [Moles/Vol] 3.8 mmol/L 3.5-5.1 [facility] Sodium [Moles/Vol] 143 mmol/L 136-145 [facility] WBC (Bld) [#/Vol] 60.2 10*3/uL 4.4-11.0 [facility] Comment on above: CRITICAL VALUE VERIF IED. CALLED TO RADHA MATTHEWS03/08/23 0822 Karon Velazquez.RESULTS READ BACK BY SAME . Blood erythrocytes count (nu mber/volume)Ordered By: Laura Bowman on 03-08-2023 RBC (Bld) [#/Vol] 3.50 10*6/uL 4.6-6.2 [facility] Blood hemoglobin measurement (mass/volume)Ordered By: Laura Bowman on 03-08-2023 Hemoglobin (Bld) [Mass/Vol] 9.1 g/dL 13.0-16.5 [facility] Blood lymphocytes/100 leukoc ytesOrdered By: Laura Bowman on 03-08-2023 Lymphocytes/100 WBC (Bld) 85.7 % 19-41 [facility] Blood manual differential co mment interpretation (narrative result)Ordered By: Laura Bowman on 03-08-2023 Manual differential comment Felice (Bld) [Interp] SCANNED [facility] Comment on above: LYMPHOCYTOSIS NOTED Blood monocytes/100 leukocyt esOrdered By: Laura Bowman on 03-08-2023 Monocytes/100 WBC (Bld) 1.7 % 0-10 [facility] Blood platelet mean volumeOr dered By: Laura Bowman on 03-08-2023 Platelet mean volume (Bld) [Entitic vol] 9.2 fL 6.2-12.0 [facility] CNPNon 03-08-2023 CNPN Telephone (CARDMN) -------- JAIME ANN ([id number]) 1940 M Date Time Provider Department 03/08/23 LAMINE KATZ During your visit today, we recorded the following information about you: Ananya Manzo 03/08/2023 8:25 AM Signed Outside EP Signed, fax'd/rec'd AND scanned into outside ep. Ananya Manzo Allergies As of Date: 03/08/2023 Noted Allergy Reaction LISINOPRIL 07/04/2016 3 - Cough Date Reviewed: 01/18/2023 Reviewed by: Lesly Oliva - Fully Assessed Reason for Visit: Received Outside Medical Records [9879] Cmt: [email or web address] [facility]iology Form Prescriptions as of 03/08/2023 - nortriptyline (PAMELOR) 50 mg capsule Take 50 mg by mouth twice daily. - carvedilol (COREG) 25 mg tablet Take 1 tablet by mouth twice daily with meals. - atorvastatin (LIPITOR) 20 mg tablet Take 1 tablet by mouth once daily. - sacubitril-valsartan (ENTRESTO) 49-51 mg tablet Take 1 tablet by mouth twice daily. - OTC NUTRITIONAL SUPPLEMENT 2 tablets once daily. [facility] - ZINC ACETATE ORAL Take by mouth once daily. - MULTI-VITAMIN ORAL Take by mouth. - CHOLECALCIFEROL, VITAMIN D3, (VITAMIN D3 ORAL) Take 1,000 Units by mouth once daily. - Coenzyme Q10 (CO Q-10) 400 mg cap Take 1 capsule by mouth once daily. - sbldhppzjlx-I1-Jtnovfrmc serr 1,500-400-100 mg-unit-mg tab Take 1 tablet by mouth once daily. Facility-Administered Medications as of 03/08/2023 - perflutren lipid microspheres 1.3 mL in NaCl (PF) 0.9% 10 mL injection (DEFINITY) - sodium chloride 0.9 % (flush) 10 mL (BD POSIFLUSH) Problem List As Of Date 03/08/2023 Noted Resolved Left bundle branch block [I44.7] 10/16/2014 Hypertension [I10] 10/16/2014 10/06/2016 Near syncope [R55] 10/16/2014 Hx of ventricular tachycardia [Z86.79] 10/16/2014 Splenic artery aneurysm (HCC) [I72.8] 02/19/2015 Cellulitis due to MRSA [L03.90, B95.62] 08/05/2015 Syncope [R55] 09/21/2015 SUMMARY 09/22/2015 Non-ischemic cardiomyopathy (HCC) [I42.8] 09/22/2015 Chronic systolic heart failure (HCC) [I50.22] 09/24/2015 Biventricular ICD (implantable cardioverter-def* 016 Renal insufficiency [N28.9] 07/19/2016 Carotid stenosis [I65.29] Malignant neoplasm of left kidney, except renal*10/06/2016 Essential hypertension [I10] 10/06/2016 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] 07/10/2017 Peripheral polyneuropathy (HCC) [G62.9] 07/10/2017 Abnormality of gait [R26.9] 07/10/2017 Disturbance of skin sensation [R20.9] 07/10/2017 Pain in both lower extremities [M79.604, M79.60*07/10/2017 Abnormal finding of blood chemistry [R79.9] 07/10/2017 Abnormal glucose [R73.09] 07/10/2017 CLL (chronic lymphocytic leukemia) (HCC) [C91.1*04/02/2019 History of prostate cancer [Z85.46] 04/02/2019 VT (ventricular tachycardia) (HCC) [I47.20] 10/05/2022 Type 2 diabetes mellitus with hyperosmolarity w*10/05/2022 Encounter Status:Closed by ANANYA MANZO on 03/08/23 Normal [facility] Determination of erythrocyte mean corpuscular volume (MCV)Ordered By: Laura Bowman on 03-08-2023 MCV (RBC) [Entitic vol] 86.0 fL 80-94 [facility] Hematocrit Auto (Bld) [Volum e fraction]Ordered By: Laura Bowman on 03-08-2023 Hematocrit (Bld) [Volume fraction] 30.1 % 40-54 [facility] Laboratory - Chemistry and C hemistry - challengeOrdered By: Laura Bowman on 03-08-2023 CO2 [Moles/Vol] 26.0 mmol/L 21.0-32.0 [facility] Urea nitrogen/Creatinine [Mass ratio] 16.6 mg/mg 10-20 [facility] Laboratory - Hematology and Cell countsOrdered By: Laura Bowman on 03-08-2023 Erythrocyte distribution width (RBC) [Entitic vol] 55.7 fL 35.1-43.9 [facility] Erythrocyte distribution width (RBC) [Ratio] 18.2 % 11.6-14.6 [facility] Immature granulocytes/100 WBC (Bld) 0.500 % 0.0-0.9 [facility] Comment on above: IG% - Immature Granu locytes (promyelocytes, myelocytes and metamyelocytes) > 1% indicates that a LEFT SHIFT is Present. MCH (RBC) [Entitic mass] 26.0 pg 27.0-32.0 [facility] Nucleated RBC/100 WBC (Bld) [Ratio] 0 % 0-5 [facility] MCHC Auto (RBC) [Mass/Vol]Or dered By: Laura Bowman on 03-08-2023 MCHC (RBC) [Mass/Vol] 30.2 g/dL 32-36 [facility] No Panel InformationOrdered By: Laura Bowman on 03-08-2023 Estimated Creatinine Clearance Calc 30.40 ml/min [facility] Estimated GFR (MDRD) Amer 48 mL/min >60 [facility] Comment on above: GFR Calc Estimated GFR (MDRD) Non-Af Amer 40 mL/min >60 [facility] Comment on above: Non- GFR Calc Platelets bldOrdered By: Siria Bowman on 03-08-2023 Platelets (Bld) [#/Vol] 292 10*3/uL 150-450 [facility] Review by pathologistOrdered By: Laura Bowman on 03-08-2023 Pathologist review Felice (Unsp spec) [Interp] September juan diego [facility] Pathologist review Felice (Unsp spec) [Interp] Reviewed [facility] Comment on above: Previous reported re sult: September juan diego Edited by: RGOOD on 03/09/23:0953Absolute lymphocytosis suggestive of low grade lympho-proliferative disorder.Normocytic anemia.Clinical correlation is necessary. Roby Michelle M.D. 03/09/23 AMENDED REPORT 03/09/23 0953 PATH REV previously reported as: September juan diego Serum or plasma calcium jamila urement (mass/volume)Ordered By: Lauar Bowman on 03-08-2023 Calcium [Mass/Vol] 8.7 mg/dL 8.5-10.1 [facility] Serum or plasma creatinine m easurement (mass/volume)Ordered By: Laura Bowman on 03-08-2023 Creatinine [Mass/Vol] 1.75 mg/dL 0.70-1.30 [facility] Comment on above: The validity of the calculated GFR & GFRAA in patients over 70 years has not been determined. Clinical correlation is essential. Serum or plasma urea nitroge n measurement (mass/volume)Ordered By: Laura Bowman on 03-08-2023 Urea nitrogen [Mass/Vol] 29 mg/dL 7-18 [facility] Smudge cell detectionOrdered By: Laura Bowman on 03-08-2023 Smudge cells LM Ql (Bld) 1+ [facility] Thin prep Papanicolaou smear with manual screeningOrdered By: Laura Bowman on 03-08-2023 Thin prep Papanicolaou smear with manual screening 7 5-15 [facility] Basophil percentageOrdered B y: Laura Bowman on 03-07-2023 Basophil percentage 2.9 mg/dL 2.5-4.9 [facility] Bilirubin [Mass/Vol] 0.30 mg/dL 0.20-1.00 [facility] Comment on above: For patients on eltr ombopag therapy, use of Dimension Beacon TBIL is not recommended. Protein [Mass/Vol] 5.4 g/dL 6.4-8.2 [facility] Direct bilirubinOrdered By: Laura Bowman on 03-07-2023 Bilirubin.direct [Mass/Vol] 0.10 mg/dL 0.00-0.30 [facility] Erythrocyte sedimentation ra teOrdered By: Laura Bowman on 03-07-2023 ESR (Bld) [Velocity] 17 mm/h 0-20 [facility] HIV 1 and HIV-2 antibody ass ay with HIV-1 p24 antigen detectionOrdered By: Laura Bowman on 03-07-2023 HIV 1+2 Ab+HIV1 p24 Ag IA Ql Non-Reactive Nonreactive [facility] Laboratory - Chemistry and C hemistry - challengeOrdered By: Laura Bowman on 03-07-2023 ALP [Catalytic activity/Vol] 89 U/L 45-117 [facility] ALT [Catalytic activity/Vol] 16 U/L 16-61 [facility] Free T4 [Mass/Vol] 1.10 ng/dL 0.76-1.46 [facility] Globulin (S) [Mass/Vol] 2.8 g/dL 2.2-4.2 [facility] Magnesium [Mass/Vol] 1.9 mg/dL 1.6-2.6 [facility] No Panel InformationOrdered By: Laura Bowman on 03-07-2023 Thyroid Stimulating Hormone (TSH) 4.48 uIU/mL 0.358-3.74 [facility] Vitamin D 25-Hydroxy 111.6 ng/mL [facility] Comment on above: Vitamin D 25(OH) Sta tus Range Deficiency <20 ng/mL (50nmol/L) Insufficiency 20 - 30 ng/mL (50 - 75 nmol/L) Sufficiency 30 - 100 ng/mL (75 - 250 nmol/L) Toxicity >100 ng/mL (>250 nmol/L)Evidence suggests that patients undergoing fluorescein dye angiography can retain small amounts of fluorescein in the body for up to 48 to 72 hours post-treatment. In the cases of patients with renal insufficiency, retention could be much longer. Samples containing fluorescein can produce falsely elevated values when tested with the [employer] Vitamin D assay. With fluorescein interference, observed Vitamin D values can be as high as >150 ng/mL (>375 nmol/L). Samples should be resubmitted post fluorescein clearance to ensure there is no interference with Vitamin D test results. Serum Treponema species anti body detectionOrdered By: Laura Bowman on 03-07-2023 Treponema sp Ab Ql (S) Non-Reactive [facility] Serum or plasma C reactive p rotein measurement (mass/volume)Ordered By: Laura Bowman on 03-07-2023 CRP [Mass/Vol] 15.50 mg/L 0.0-3.0 [facility] Comment on above: C-Reactive Protein ( CRP) provides useful information for thediagnosis, therapy and monitoring of inflammatory processesand associated diseases. For the evaluation of Relative Riskfor Cardiovascular Disease, a High Sensitivity CRP (HSCRP)should be ordered. Serum or plasma albumin jamila urement (mass/volume)Ordered By: Laura Bowman on 03-07-2023 Albumin [Mass/Vol] 2.6 g/dL 3.2-5.0 [facility] Thin prep Papanicolaou smear with manual screeningOrdered By: Laura Bowman on 03-07-2023 Thin prep Papanicolaou smear with manual screening 17 U/L 15-37 [facility] Laboratory - Microbiology an d Antimicrobial susceptibilityOrdered By: Klaus Ambriz on 03-06-2023 Bacteria identified Cx Nom (Bld) No growth in 5 days. [facility] Bacteria identified Cx Nom (Bld) No growth in 5 days. [facility] Absolute lymphocyte countOrd ered By: Manolo Khan on 03-04-2023 Lymphocytes Auto (Unsp spec) [#/Vol] 46.39 10*3/uL 0.83-4.51 [facility] Basophil percentageOrdered B y: Manolo Khan on 03-04-2023 Basophil percentage >100 SEEN /hpf 0-5 [facility] Basophils/100 WBC (Bld) 0.4 % 0-1 [facility] Chloride [Moles/Vol] 110 mmol/L 98-107 [facility] Eosinophils/100 WBC (Bld) 0.5 % 0-5 [facility] Glucose [Mass/Vol] 90 mg/dL 74-106 [facility] Neutrophils (Bld) [#/Vol] 3.9 10*3/uL 2.0-7.7 [facility] Neutrophils/100 WBC (Bld) 7.6 % 47-70 [facility] Potassium [Moles/Vol] 4.6 mmol/L 3.5-5.1 [facility] Sodium [Moles/Vol] 142 mmol/L 136-145 [facility] WBC (Bld) [#/Vol] 52.1 10*3/uL 4.4-11.0 [facility] Bilirubin Test strip Ql (U)O rdered By: Manolo Khan on 03-04-2023 Bilirubin Ql (U) Negative Negative [facility] Blood erythrocytes count (nu mber/volume)Ordered By: Manolo Khan on 03-04-2023 RBC (Bld) [#/Vol] 3.52 10*6/uL 4.6-6.2 [facility] Blood hemoglobin measurement (mass/volume)Ordered By: Manolo Khan on 03-04-2023 Hemoglobin (Bld) [Mass/Vol] 9.0 g/dL 13.0-16.5 [facility] Blood lymphocytes/100 leukoc ytesOrdered By: Manolo Khan on 03-04-2023 Lymphocytes/100 WBC (Bld) 89.0 % 19-41 [facility] Blood monocytes/100 leukocyt esOrdered By: Manolo Khan on 03-04-2023 Monocytes/100 WBC (Bld) 2.3 % 0-10 [facility] Blood platelet mean volumeOr dered By: Manolo Khan on 03-04-2023 Platelet mean volume (Bld) [Entitic vol] 9.5 fL 6.2-12.0 [facility] Culture, urineOrdered By: Edison Khan on 03-04-2023 Bacteria identified Cx Nom (U) Staphylococcus aureus [facility] Determination of erythrocyte mean corpuscular volume (MCV)Ordered By: Manolo Khan on 03-04-2023 MCV (RBC) [Entitic vol] 87.5 fL 80-94 [facility] Hematocrit Auto (Bld) [Volum e fraction]Ordered By: Manolo Khan on 03-04-2023 Hematocrit (Bld) [Volume fraction] 30.8 % 40-54 [facility] Iron measurement (mass/mass) Ordered By: Waylon Sanches on 03-04-2023 Iron (Unsp spec) [Mass/Mass] 18 ug/dL 65-175 [facility] Ketones Test strip Ql (U)Ord ered By: Manolo Khan on 03-04-2023 Ketones Ql (U) Negative Negative [facility] Laboratory - Chemistry and C hemistry - challengeOrdered By: Waylon Sanches on 03-04-2023 Sodium (U) [Moles/Vol] 57 mmol/L Not Establ. [facility] Laboratory - Chemistry and C hemistry - challengeOrdered By: Manolo Khan on 03-04-2023 CO2 [Moles/Vol] 26.0 mmol/L 21.0-32.0 [facility] Natriuretic peptide B (Bld) [Mass/Vol] 477.2 pg/mL 0-100 [facility] Urea nitrogen/Creatinine [Mass ratio] 22.0 mg/mg 10-20 [facility] Laboratory - Hematology and Cell countsOrdered By: Manolo Khan on 03-04-2023 Erythrocyte distribution width (RBC) [Entitic vol] 56.0 fL 35.1-43.9 [facility] Erythrocyte distribution width (RBC) [Ratio] 18.0 % 11.6-14.6 [facility] Immature granulocytes/100 WBC (Bld) 0.200 % 0.0-0.9 [facility] Comment on above: IG% - Immature Granu locytes (promyelocytes, myelocytes and metamyelocytes) > 1% indicates that a LEFT SHIFT is Present. MCH (RBC) [Entitic mass] 25.6 pg 27.0-32.0 [facility] Nucleated RBC/100 WBC (Bld) [Ratio] 0 % 0-5 [facility] MCHC Auto (RBC) [Mass/Vol]Or dered By: Manolo Khan on 03-04-2023 MCHC (RBC) [Mass/Vol] 29.2 g/dL 32-36 [facility] Mucus LM Ql (Urine sed)Order ed By: Manolo Khan on 03-04-2023 Mucus Ql (Urine sed) 0 SEEN /hpf [facility] Nitrite Test strip Ql (U)Ord ered By: Manolo Khan on 03-04-2023 Nitrite Ql (U) Positive Negative [facility] No Panel InformationOrdered By: Waylon Sanches on 03-04-2023 Total Iron Binding Capacity 263 ug/dL 250-450 [facility] Vitamin B12 Level > 2000 pg/mL 211-911 [facility] No Panel InformationOrdered By: Manolo Khan on 03-04-2023 Troponin I High Sensitivity 12 pg/mL 3.0-78.0 [facility] Comment on above: Please Note: New Kacie t Units and Gender Specific Reference Ranges. For more information see Policy Stat Procedure Beacon High Sensitivity Troponin (TNIH) and attachments. Estimated Creatinine Clearance Calc 20.13 ml/min [facility] Estimated GFR (MDRD) Amer 28 mL/min >60 [facility] Comment on above: GFR Calc Estimated GFR (MDRD) Non-Af Amer 23 mL/min >60 [facility] Comment on above: Non- GFR Calc Troponin I High Sensitivity 12 pg/mL 3.0-78.0 [facility] Comment on above: Please Note: New Kacie t Units and Gender Specific Reference Ranges. For more information see Policy Stat Procedure Beacon High Sensitivity Troponin (TNIH) and attachments. Platelets bldOrdered By: Magaly Khan on 03-04-2023 Platelets (Bld) [#/Vol] 305 10*3/uL 150-450 [facility] Protein Test strip Ql (U)Ord ered By: Manolo Khan on 03-04-2023 Protein Ql (U) 100 mg/dl Negative [facility] Review by pathologistOrdered By: Manolo Khan on 03-04-2023 Pathologist review Felice (Unsp spec) [Interp] May foll [facility] Serum or plasma calcium jamila urement (mass/volume)Ordered By: Manolo Khan on 03-04-2023 Calcium [Mass/Vol] 9.2 mg/dL 8.5-10.1 [facility] Serum or plasma creatinine m easurement (mass/volume)Ordered By: Manolo Khan on 03-04-2023 Creatinine [Mass/Vol] 2.82 mg/dL 0.70-1.30 [facility] Comment on above: The validity of the calculated GFR & GFRAA in patients over 70 years has not been determined. Clinical correlation is essential. Serum or plasma ferritin sabine surement (mass/volume)Ordered By: Waylon Sanches on 03-04-2023 Ferritin [Mass/Vol] 92 ng/mL 26-388 [facility] Serum or plasma folate measu rement (mass/volume)Ordered By: Waylon Sanches on 03-04-2023 Folate [Mass/Vol] 22.60 ng/mL 3.1-55.4 [facility] Serum or plasma iron saturat ion measurement (mass fraction)Ordered By: Waylon Sanches on 03-04-2023 Iron saturation [Mass fraction] 6.8 % 15.0-55.0 [facility] Serum or plasma urea nitroge n measurement (mass/volume)Ordered By: Manolo Khan on 03-04-2023 Urea nitrogen [Mass/Vol] 62 mg/dL 7-18 [facility] Smudge cell detectionOrdered By: Manolo Khan on 03-04-2023 Smudge cells LM Ql (Bld) 2+ [facility] Squamous epithelial cells de tection in urine sediment by light microscopyOrdered By: Manolo Khan on 03-04-2023 Epithelial cells.squamous LM Ql (Urine sed) 0 SEEN /hpf 0-5 [facility] Thin prep Papanicolaou smear with manual screeningOrdered By: Manolo Khan on 03-04-2023 Thin prep Papanicolaou smear with manual screening 6 5-15 [facility] Urine blood detectionOrdered By: Manolo Khan on 03-04-2023 RBC Ql (U) 50 /ul Negative [facility] RBC Ql (U) 0 SEEN /hpf 0-5 [facility] Urine clarityOrdered By: Magaly Khan on 03-04-2023 Clarity (U) Turbid Clear [facility] Urine color determinationOrd ered By: Manolo Khan on 03-04-2023 Color (U) Yellow Yellow [facility] Urine creatinine measurement (mass/volume)Ordered By: Waylon Sanches on 03-04-2023 Creatinine (U) [Mass/Vol] 49.50 mg/dL NO RANGE EST. [facility] Urine glucose detectionOrder ed By: Manolo Khan on 03-04-2023 Glucose Ql (U) Normal mg/dl Normal [facility] Urine leukocyte esterase det ection by dipstickOrdered By: Manolo Khan on 03-04-2023 Leukocyte esterase Test strip Ql (U) 500 /ul Negative [facility] Urine pHOrdered By: Manolo tanner on 03-04-2023 pH (U) 6.0 [pH] 5.0 - 8.0 [facility] Urine sediment bacteria coun t by microscopy (number/high power field)Ordered By: Manolo Khan on 03-04-2023 Bacteria LM.HPF (Urine sed) [#/Area] 0 /[HPF] None Seen [facility] Urine specific gravity measu rementOrdered By: Manolo Khan on 03-04-2023 Specific gravity (U) [Rel density] 1.010 1.002-1.030 [facility] Urobilinogen Auto test strip Ql (U)Ordered By: Manolo Khan on 03-04-2023 Urobilinogen Ql (U) Normal mg/dl Normal [facility] .GFRon 02-27-2023 GFR 24 ml/min/1.73sqm Normal [facility] ([place]) Comment on above: Result Comment: GFR Population mean for , [...] 15 mL/min/1.73 square meters Performed By: #### C BC, GFR, DIFF, URIC, MORPH, BMP, VIDH #### [address] [address] #### PTH #### [address] [address] GFR Non- 20 ml/min/1.73sqm Normal [facility] ([place]) Comment on above: Result Comment: GFR Population mean for , [...] 15 mL/min/1.73 square meters Performed By: #### C BC, GFR, DIFF, URIC, MORPH, BMP, VIDH #### [place] [address] #### PTH #### [place] [address] .Manual Diffon 02-27-2023 Basophil %, Manual 0.0 % Normal 0.0-2.5 [facility] ([place]) Comment on above: Performed By: #### C BC, GFR, DIFF, URIC, MORPH, BMP, VIDH #### [place] [address] #### PTH #### [place] [address] Basophil, Abs Manual 0.0 10 3/mcL Normal 0.0-0.2 [facility] ([place]) Comment on above: Performed By: #### C BC, GFR, DIFF, URIC, MORPH, BMP, VIDH #### [place] [address] #### PTH #### [place] [address] Eosinophil %, Manual 3.0 % Normal 0.0-7.0 [facility] ([place]) Comment on above: Performed By: #### C BC, GFR, DIFF, URIC, MORPH, BMP, VIDH #### [place] [address] #### PTH #### [place] [address] Eosinophil, Abs Manual 1.5 10 3/mcL High 0.0-0.4 [facility] ([place]) Comment on above: Performed By: #### C BC, GFR, DIFF, URIC, MORPH, BMP, VIDH #### [address] [address] #### PTH #### [address] [address] Lymphocyte %, Manual 76.0 % High 10.0-50.0 [facility] ([place]) Comment on above: Performed By: #### C BC, GFR, DIFF, URIC, MORPH, BMP, VIDH #### [place] [address] #### PTH #### [address] [address] Lymphocyte, Abs Manual 36.7 10 3/mcL High 0.8-3.9 [facility] ([place]) Comment on above: Performed By: #### C BC, GFR, DIFF, URIC, MORPH, BMP, VIDH #### [place] [address] #### PTH #### [address] [address] Monocyte %, Manual 4.0 % Normal 1.7-13.0 [facility] ([place] Comment on above: Performed By: #### C BC, GFR, DIFF, URIC, MORPH, BMP, VIDH #### [place] [address] #### PTH #### [address] [address] Monocyte, Abs Manual 1.9 10 3/mcL High 0.2-1.0 [facility] ([place]) Comment on above: Performed By: #### C BC, GFR, DIFF, URIC, MORPH, BMP, VIDH #### [place] [address] #### PTH #### [address] [address] Neutrophil %, Manual 17.0 % Low 37.0-80.0 [facility] ([place] Comment on above: Performed By: #### C BC, GFR, DIFF, URIC, MORPH, BMP, VIDH #### [address] [address] #### PTH #### [place] [address] Neutrophil, Abs Manual 8.2 10 3/mcL High 2.9-6.2 [facility] ([place] Comment on above: Performed By: #### C BC, GFR, DIFF, URIC, MORPH, BMP, VIDH #### [place] [address] #### PTH #### [place] [address] Nucleated RBC 0.0 /100 WBC Normal [facility] ([place]) Comment on above: Performed By: #### C BC, GFR, DIFF, URIC, MORPH, BMP, VIDH #### [place] [address] #### PTH #### [place] [address] .Morphon 02-27-2023 Acanthocytes 1+ Normal [facility] ([place] Comment on above: Performed By: #### C BC, GFR, DIFF, URIC, MORPH, BMP, VIDH #### [place] [address] #### PTH #### [place] [address] Anisocytosis Ql (Bld) 1+ Normal [facility] ([place]) Comment on above: Performed By: #### C BC, GFR, DIFF, URIC, MORPH, BMP, VIDH #### [place] [address] #### PTH #### [place] [address] Hypochrom 1+ Normal [facility] ([place]) Comment on above: Performed By: #### C BC, GFR, DIFF, URIC, MORPH, BMP, VIDH #### [place] [address] #### PTH #### [address] [address] Ovalocytes 1+ Normal [facility] ([place]) Comment on above: Performed By: #### C BC, GFR, DIFF, URIC, MORPH, BMP, VIDH #### [address] [address] #### PTH #### [address] [address] Platelet Estimate Normal Normal [facility] ([place]) Comment on above: Performed By: #### C BC, GFR, DIFF, URIC, MORPH, BMP, VIDH #### [address] [address] #### PTH #### [address] [address] Poik 1+ Normal [facility] ([place]) Comment on above: Performed By: #### C BC, GFR, DIFF, URIC, MORPH, BMP, VIDH #### [address] [address] #### PTH #### [address] [address] Smudge Cells 2+ Normal [facility] ([place]) Comment on above: Performed By: #### C BC, GFR, DIFF, URIC, MORPH, BMP, VIDH #### [address] [address] #### PTH #### [place] [address] BMPon 02-27-2023 BUN/Creatinine Ratio 19 ratio Normal 7-27 [facility] ([place]) Comment on above: Performed By: #### C BC, GFR, DIFF, URIC, MORPH, BMP, VIDH #### [address] [address] #### PTH #### [address] [address] Calcium [Mass/Vol] 9.2 mg/dL Normal 8.4-10.2 [facility] ([place]) Comment on above: Performed By: #### C BC, GFR, DIFF, URIC, MORPH, BMP, VIDH #### [address] [address] #### PTH #### [address] [address] Chloride [Moles/Vol] 107 mmol/L Normal 98-107 [facility] ([place]) Comment on above: Performed By: #### C BC, GFR, DIFF, URIC, MORPH, BMP, VIDH #### [place] [address] #### PTH #### [address] [address] CO2 [Moles/Vol] 28 mmol/L Normal 23-31 [facility] ([place]) Comment on above: Performed By: #### C BC, GFR, DIFF, URIC, MORPH, BMP, VIDH #### [place] [address] #### PTH #### [address] [address] Creatinine [Mass/Vol] 3.03 mg/dL High 0.70-1.30 [facility] ([place]) Comment on above: Performed By: #### C BC, GFR, DIFF, URIC, MORPH, BMP, VIDH #### [place] [address] #### PTH #### [address] [address] Electrolyte Balance 7.0 mEq/L Normal 4.0-15.0 [facility] ([place]) Comment on above: Performed By: #### C BC, GFR, DIFF, URIC, MORPH, BMP, VIDH #### [place] [address] #### PTH #### [address] [address] Glucose [Mass/Vol] 153 mg/dL High 83-110 [facility] ([place]) Comment on above: Performed By: #### C BC, GFR, DIFF, URIC, MORPH, BMP, VIDH #### [address] [address] #### PTH #### [address] [address] Potassium [Moles/Vol] 4.8 mmol/L Normal 3.5-5.1 [facility] ([place]) Comment on above: Performed By: #### C BC, GFR, DIFF, URIC, MORPH, BMP, VIDH #### [address] [address] #### PTH #### [address] [address] Sodium [Moles/Vol] 142 mmol/L Normal 136-145 [facility] ([place]) Comment on above: Performed By: #### C BC, GFR, DIFF, URIC, MORPH, BMP, VIDH #### [address] [address] #### PTH #### [address] [address] Urea nitrogen [Mass/Vol] 59 mg/dL High 7-18 [facility] ([place]) Comment on above: Performed By: #### C BC, GFR, DIFF, URIC, MORPH, BMP, VIDH #### [address] [address] #### PTH #### [address] [address] CBCon 02-27-2023 Erythrocyte distribution width (RBC) [Ratio] 18.0 % High 11.5-14.5 [facility] ([place]) Comment on above: Performed By: #### C BC, GFR, DIFF, URIC, MORPH, BMP, VIDH #### [address] [address] #### PTH #### [address] [address] Hematocrit (Bld) [Volume fraction] 28.4 % Low 42.0-52.0 [facility] ([place]) Comment on above: Performed By: #### C BC, GFR, DIFF, URIC, MORPH, BMP, VIDH #### [place] [address] #### PTH #### [place] [address] Hgb 9.0 G/dL Low 14.0-18.0 [facility] ([place]) Comment on above: Performed By: #### C BC, GFR, DIFF, URIC, MORPH, BMP, VIDH #### [place] [address] #### PTH #### [place] [address] MCH (RBC) [Entitic mass] 25.8 pg Low 27.0-31.2 [facility] ([place]) Comment on above: Performed By: #### C BC, GFR, DIFF, URIC, MORPH, BMP, VIDH #### [place] [address] #### PTH #### [place] [address] MCHC 31.6 G/dL Low 31.8-35.4 [facility] ([place]) Comment on above: Performed By: #### C BC, GFR, DIFF, URIC, MORPH, BMP, VIDH #### [place] [address] #### PTH #### [place] [address] MCV (RBC) [Entitic vol] 81.6 fL Normal 80.0-94.0 [facility] ([place]) Comment on above: Performed By: #### C BC, GFR, DIFF, URIC, MORPH, BMP, VIDH #### [place] [address] #### PTH #### [place] [address] Platelet 293 10 3/mcL Normal 130-400 [facility] ([place]) Comment on above: Performed By: #### C BC, GFR, DIFF, URIC, MORPH, BMP, VIDH #### [place] [address] #### PTH #### [place] [address] Platelet mean volume (Bld) [Entitic vol] 7.2 fL Low 7.4-10.4 [facility] ([place] Comment on above: Performed By: #### C BC, GFR, DIFF, URIC, MORPH, BMP, VIDH #### [place] [address] #### PTH #### [place] [address] RBC 3.48 10 6/mcL Low 4.04-6.13 [facility] ([place]) Comment on above: Performed By: #### C BC, GFR, DIFF, URIC, MORPH, BMP, VIDH #### [place] [address] #### PTH #### [place] [address] WBC 48.3 10 3/mcL High 4.6-10.8 [facility] ([place] Comment on above: Performed By: #### C BC, GFR, DIFF, URIC, MORPH, BMP, VIDH #### [place] [address] #### PTH #### [place] [address] CRURon 02-27-2023 U Creatinine 52.4 mg/dL Normal 39.0-259.0 [facility] ([place]) Comment on above: Performed By: #### P RUR, CRUR #### [place] [address] LABORATORYOrdered By: SYSTEM SYSTEM on 02-27-2023 Creatinine (U) [Mass/Vol] 52.4 mg/dL Invalid Interpretation Code 39.0 - 259.0 mg/dL AO ADM SS Protein (U) [Mass/Vol] 105 mg/dL Invalid Interpretation Code 0 - 11 mg/dL AO ADM SS 25-hydroxyvitamin D3 [Mass/Vol] 105.9 ng/mL Invalid Interpretation Code AO ADM SS Comment on above: Interpretive Data: I nterpretive Values Based on Total 25(OH) Vitamin D: Deficient <20 ng/mL Insufficient 20 - <30 ng/mL Sufficient 30-100 ng/mL Acanthocytes LM Ql (Bld) 1+ *NA* (02/27/23 9:55 AM) Invalid Interpretation Code AO Workflow SS Anisocytosis Ql (Bld) 1+ *NA* (02/27/23 9:55 AM) Invalid Interpretation Code AO Workflow SS Basophil %, Manual 0.0 1 Invalid Interpretation Code 0.0 - 2.5 % AO Workflow SS Basophil, Abs Manual 0.0 103/mcL Invalid Interpretation Code 0.0 - 0.2 10^3/mcL AO Workflow SS Calcium [Mass/Vol] 9.2 mg/dL Invalid Interpretation Code 8.4 - 10.2 mg/dL AO ADM SS Chloride [Moles/Vol] 107 mmol/L Invalid Interpretation Code 98 - 107 mmol/L AO ADM SS CO2 [Moles/Vol] 28 mmol/L Invalid Interpretation Code 23 - 31 mmol/L AO ADM SS Creatinine [Mass/Vol] 3.03 mg/dL Invalid Interpretation Code 0.70 - 1.30 mg/dL AO ADM SS Electrolyte Balance 7.0 mEq/L Invalid Interpretation Code 4.0 - 15.0 mEq/L AO ADM SS Eosinophil %, Manual 3.0 1 Invalid Interpretation Code 0.0 - 7.0 % AO Workflow SS Eosinophils (Bld) [#/Vol] 1.5 103/mcL Invalid Interpretation Code 0.0 - 0.4 10^3/mcL AO Workflow SS Erythrocyte distribution width (RBC) [Ratio] 18.0 % Invalid Interpretation Code 11.5 - 14.5 % AO Workflow SS GFR/1.73 sq M.predicted among blacks MDRD (S/P/Bld) [Vol rate/Area] 24 ml/min/1.73sqm Invalid Interpretation Code AO Chemistry S Comment on above: Interpretive Data: GFR Population mean for , Non- Americans Ages 20-29 = 116 mL/min/1.73 sq.m. Ages 30-39 = 107 mL/min/1.73 sq.m. Ages 40-49 = 99 mL/min/1.73 sq.m. Ages 50-59 = 93 mL/min/1.73 sq.m. Ages 60-69 = 85 mL/min/1.73 sq.m. Ages 70+ = 75 mL/min/1.73 sq.m. Chronic Kidney Disease: Less than 60 mL/min/1.73 square meters End Stage Renal Disease: Less than 15 mL/min/1.73 square meters GFR/1.73 sq M.predicted among non-blacks MDRD (S/P/Bld) [Vol rate/Area] 20 ml/min/1.73sqm Invalid Interpretation Code AO Chemistry S Comment on above: Interpretive Data: GFR Population mean for , Non- Americans Ages 20-29 = 116 mL/min/1.73 sq.m. Ages 30-39 = 107 mL/min/1.73 sq.m. Ages 40-49 = 99 mL/min/1.73 sq.m. Ages 50-59 = 93 mL/min/1.73 sq.m. Ages 60-69 = 85 mL/min/1.73 sq.m. Ages 70+ = 75 mL/min/1.73 sq.m. Chronic Kidney Disease: Less than 60 mL/min/1.73 square meters End Stage Renal Disease: Less than 15 mL/min/1.73 square meters Glucose [Mass/Vol] 153 mg/dL Invalid Interpretation Code 83 - 110 mg/dL AO ADM SS Hematocrit (Bld) [Volume fraction] 28.4 % Invalid Interpretation Code 42.0 - 52.0 % AO Workflow SS Hemoglobin (Bld) [Mass/Vol] 9.0 G/dL Invalid Interpretation Code 14.0 - 18.0 G/dL AO Workflow SS Hypochromia Ql (Bld) 1+ *NA* (02/27/23 9:55 AM) Invalid Interpretation Code AO Workflow SS Lymphocyte %, Manual 76.0 1 Invalid Interpretation Code 10.0 - 50.0 % AO Workflow SS Lymphocyte, Abs Manual 36.7 103/mcL Invalid Interpretation Code 0.8 - 3.9 10^3/mcL AO Workflow SS MCH (RBC) [Entitic mass] 25.8 pg Invalid Interpretation Code 27.0 - 31.2 pg AO Workflow SS MCHC 31.6 G/dL Invalid Interpretation Code 31.8 - 35.4 G/dL AO Workflow SS MCV (RBC) [Entitic vol] 81.6 fL Invalid Interpretation Code 80.0 - 94.0 fL AO Workflow SS Monocyte %, Manual 4.0 1 Invalid Interpretation Code 1.7 - 13.0 % AO Workflow SS Monocyte, Abs Manual 1.9 103/mcL Invalid Interpretation Code 0.2 - 1.0 10^3/mcL AO Workflow SS Neutrophil %, Manual 17.0 1 Invalid Interpretation Code 37.0 - 80.0 % AO Workflow SS Neutrophil, Abs Manual 8.2 103/mcL Invalid Interpretation Code 2.9 - 6.2 10^3/mcL AO Workflow SS Nucleated RBC 0.0 /100 WBC Invalid Interpretation Code AO Workflow SS Ovalocytes LM Ql (Bld) 1+ *NA* (02/27/23 9:55 AM) Invalid Interpretation Code AO Workflow SS Parathyrin.intact [Mass/Vol] 36.9 pg/mL Invalid Interpretation Code 18.5 - 88.0 pg/mL AH ADM SS Platelet Estimate Normal *NA* (02/27/23 9:55 AM) Invalid Interpretation Code AO Workflow SS Platelet mean volume (Bld) [Entitic vol] 7.2 fL Invalid Interpretation Code 7.4 - 10.4 fL AO Workflow SS Platelets (Bld) [#/Vol] 293 103/mcL Invalid Interpretation Code 130 - 400 10^3/mcL AO Workflow SS Poikilocytosis LM Ql (Bld) 1+ *NA* (02/27/23 9:55 AM) Invalid Interpretation Code AO Workflow SS Potassium [Moles/Vol] 4.8 mmol/L Invalid Interpretation Code 3.5 - 5.1 mmol/L AO ADM SS RBC (Bld) [#/Vol] 3.48 106/mcL Invalid Interpretation Code 4.04 - 6.13 10^6/mcL AO Workflow SS Smudge Cells 2+ *NA* (02/27/23 9:55 AM) Invalid Interpretation Code AO Workflow SS Sodium [Moles/Vol] 142 mmol/L Invalid Interpretation Code 136 - 145 mmol/L AO ADM SS Urea nitrogen [Mass/Vol] 59 mg/dL Invalid Interpretation Code 7 - 18 mg/dL AO ADM SS Urea nitrogen/Creatinine [Mass ratio] 19 ratio Invalid Interpretation Code 7 - 27 ratio AO ADM SS Uric Acid Lvl 6.2 mg/dL Invalid Interpretation Code 3.5 - 7.2 mg/dL AO ADM SS WBC (Bld) [#/Vol] 48.3 103/mcL Invalid Interpretation Code 4.6 - 10.8 10^3/mcL AO Workflow SS PRURon 02-27-2023 U Protein 105 mg/dL High 0-11 [facility] ([place] Comment on above: Performed By: #### P RUR, CRUR #### [address] [address] PTHon 02-27-2023 PTH, Intact 36.9 pg/mL Normal 18.5-88.0 [facility] ([place]) Comment on above: Performed By: #### C BC, GFR, DIFF, URIC, MORPH, BMP, VIDH #### [place] [address] #### PTH #### [place] [address] URICon 02-27-2023 Uric Acid Lvl 6.2 mg/dL Normal 3.5-7.2 [facility] ([place]) Comment on above: Performed By: #### C BC, GFR, DIFF, URIC, MORPH, BMP, VIDH #### [place] [address] #### PTH #### [place] [address] VIDHon 02-27-2023 Vit. D 25-Hydroxy 105.9 ng/mL Normal [facility] ([place]) Comment on above: Result Comment: Inte rpretive Values Based on Total 25(OH) Vitamin D: Deficient <20 ng/mL Insufficient 20 - <30 ng/mL Sufficient 30-100 ng/mL Performed By: #### C BC, GFR, DIFF, URIC, MORPH, BMP, VIDH #### [place] [address] #### PTH #### [place] [address] US RENALon 02-22-2023 US RENAL ORIGINAL EXAMINATION: ULTRASOUND OF THE KIDNEYS 02/20/2023 10:19 am COMPARISON: Renal ultrasound 11/09/2022 HISTORY: ORDERING SYSTEM PROVIDED HISTORY: Reason for Exam: CKD STAGE 3B FINDINGS: Right kidney: Measures 10.5 x 5.3 x 5.3 cm. Cortical thickness is within normal limits. Suspect subtle mild increased cortical echogenicity. Mild pelvicaliectasis, increased in the prior exam. There is a 2.0 cm benign appearing right lower pole cyst. Left kidney: Measures 9.4 cm in length. Mild cortical thinning and mild increased echogenicity. There is moderate pelvicaliectasis, increased from the prior exam. There is mild dilatation of the left ureter, with visualization to the level of the pelvis. No nephrolithiasis or visualized ureteral stone. Multiple benign renal cysts measuring up to 4.8 cm by my measurement. Bladder: Bladder wall appears mildly prominent for the degree of distension. There are bladder wall trabeculations. There is a large mobile stone. Both ureteral jets are visualized. Postvoid volume of 219.2 mL. Prostate: Not visualized IMPRESSION: Thick-walled, trabeculated bladder with large postvoid residual, which is nonspecific but can be seen in the setting of neurogenic bladder or acute on chronic bladder outlet obstruction. There is a mobile bladder calculus. Correlate with KUB if not already performed. Moderate left and mild right pelvicaliectasis with mild dilatation of the visualized left ureter, increased from the comparison study. This could be secondary to bladder outlet obstruction. No nephrolithiasis or visualized ureteral stone. Suspect medical renal disease. The prostate is not visualized. I have personally reviewed the images of this examination and agree with the resident's findings and interpretation. Interpreted by: Derek Pierre MD Preliminary Report By: Brandy Huynh Electronically signed By Derek Pierre MD Dictated Date: 02/22/2023 11:34:39 AM Prelim Date: 02/22/2023 4:11:36 PM Sign Date: 02/22/2023 4:11:36 PM Ordering Provider: SWAPNIL SEN [facility] ([place]) XR HAND MINIMUM 3 VIEWS [facility] 02-09-2023 XR HAND MINIMUM 3 VIEWS RIGHT ORIGINAL EXAMINATION: THREE XRAY VIEWS OF THE RIGHT WRIST; THREE XRAY VIEWS OF THE RIGHT HAND02/07/2023 11:05 am; 02/07/2023 11:04 am COMPARISON: None HISTORY: ORDERING SYSTEM PROVIDED HISTORY: Reason for Exam: fall, pain, injury; ORDERING SYSTEM PROVIDED HISTORY: Reason for Exam: fall, hand/wrist pain FINDINGS: There is suspected fracture through the distal radius involving the metaphysis. There is also small fracture of the ulnar styloid. There is overlying soft tissue swelling. There are postsurgical changes of the 5th proximal phalanx. The bones are diffusely osteopenic with interphalangeal degenerative changes. There also degenerative changes through the carpal bones with multiple calcified loose bodies. IMPRESSION: Distal radial and ulnar fractures. Interpreted by: Mehreen Ny DO Preliminary Report By: Mehreen Ny DO Electronically signed By Mehreen Ny DO Dictated Date: 02/09/2023 4:17:46 PM Prelim Date: 02/09/2023 4:21:40 PM Sign Date: 02/09/2023 4:21:40 PM Ordering Provider: KENN TURCIOS [facility] ([place] XR WRIST MINIMUM 3 VIEWS RIG HTon 02-09-2023 XR WRIST MINIMUM 3 VIEWS RIGHT ORIGINAL EXAMINATION: THREE XRAY VIEWS OF THE RIGHT WRIST; THREE XRAY VIEWS OF THE RIGHT HAND02/07/2023 11:05 am; 02/07/2023 11:04 am COMPARISON: None HISTORY: ORDERING SYSTEM PROVIDED HISTORY: Reason for Exam: fall, pain, injury; ORDERING SYSTEM PROVIDED HISTORY: Reason for Exam: fall, hand/wrist pain FINDINGS: There is suspected fracture through the distal radius involving the metaphysis. There is also small fracture of the ulnar styloid. There is overlying soft tissue swelling. There are postsurgical changes of the 5th proximal phalanx. The bones are diffusely osteopenic with interphalangeal degenerative changes. There also degenerative changes through the carpal bones with multiple calcified loose bodies. IMPRESSION: Distal radial and ulnar fractures. Interpreted by: Mehreen Ny DO Preliminary Report By: Mehreen Ny DO Electronically signed By Mehreen Ny DO Dictated Date: 02/09/2023 4:17:46 PM Prelim Date: 02/09/2023 4:21:40 PM Sign Date: 02/09/2023 4:21:40 PM Ordering Provider: KENN TURCIOS [facility] ([place]) LABORATORYOrdered By: Maddie Machado on 01-26-2023 Albumin DL <= 20 mg/L (U) [Mass/Vol] 5927 mcg/dL Invalid Interpretation Code AO ADM SS Albumin/Creatinine DL <= 20 mg/L (U) [Mass ratio] 118 mcg/mg Invalid Interpretation Code 0 - 30 mcg/mg AO ADM SS Creatinine (U) [Mass/Vol] 50.4 mg/dL Invalid Interpretation Code 39.0 - 259.0 mg/dL AO ADM SS MALBRon 01-26-2023 U Creatinine 50.4 mg/dL Normal 39.0-259.0 [facility] ([place]) Comment on above: Performed By: #### C BC, GFR, DIFF, URIC, MORPH, BMP, VIDH #### [address] [address] #### PTH #### [address] [address] U Microalb 5927 mcg/dL Normal [facility] ([place]) Comment on above: Performed By: #### C BC, GFR, DIFF, URIC, MORPH, BMP, VIDH #### [address] [address] #### PTH #### [address] [address] U Ratio Alb/Cre 118 mcg/mg High 0-30 [facility] ([place] Comment on above: Performed By: #### C BC, GFR, DIFF, URIC, MORPH, BMP, VIDH #### [address] [address] #### PTH #### [address] [address] CNOVon 01-18-2023 CNOV Office Visit (CRUZITO ) -------- JAIME ANN ([id number]) 1940 M Date Time Provider Department 01/18/23 3:00 PM LAMINE KATZ During your visit today, we recorded the following information about you: Pulse Blood pressure Weight Height 64/minute 122/68 79.4 kg 1.753 m Lamine Katz MD 01/18/2023 3:18 PM Signed EP STAFF NOTE: Please note: This note has been produced using speech recognition software and may contain errors related to that system including grammar, punctuation, spelling, gender and words and phrases that may be inappropriate Consultation initially requested by Dr. Horne 2018 for an opinion regarding management of MATTRESS STRIPPER device I have reviewed the above information and examined the patient and confirm the above with the following additions/modifications. PE: Vitals: BP 122/68 Pulse 64 Ht 175.3 cm (5' 9") Wt 79.4 kg (175 lb) SpO2 97% BMI 25.84 kg/m? Neck: no JVD. Lungs: Unlabored Heart: RRR Extremities: No peripheral edema bilaterally. DEVICE CHECK: CHB, no RV intrinsic at VVI 30 Today: PRESENTS FOR: Appt with Dr. Katz PRESENTING EGM: /AP/Bi-V paced UNDERLYING RHYTHM: Sinus with CHB, no RV intrinsic at VVI 40bpm BATTERY STATUS: Estimated time remaining to CONNIE is 8.6 years. COUNTERS SINCE: 11/08/2022 ARRHYTHMIAS: None LEAD MEASUREMENTS: Capture and RA sensing are appropriate. The pacing outputs maintain safety margin. Review of the lead impedance trends are normal. IMPLANT SITE/ SYMPTOMS: The incision and pocket are pain-free, well healed and without signs of erosion or infection. OTHER DIAGNOSTICS: RA pacing 21.1%, Nonadaptive BiV pacing 97.3%. PROGRAMMING CHANGES MADE TODAY: RV sensing was programmed to integrated bipolar with sensitivity programmed at 0.45mV, as it was in previous device. FOLLOW UP: Pt will continue with every 3 month remote transmissions and annual in-clinic visits. Kinga Ruiz RN PROBLEM LIST: unexplained syncope in the setting of severe LV systolic dysfunction, with suspicion for ventricular tachyarrhythmia. During that hospitalization, his LVEF was found to be severely reduced at 19%. Coronary angiography during that stay demonstrated no evidence of flow-limiting coronary artery disease. 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 TTE : - The left ventricle is [...] 3+) mitral valve regurgitation. Regurgitant orifice area (PISA) is 0.21 cm?. - Exam was compared with the prior CC echocardiographic exam performed on 03/23/2016. MR appears to have increased. tibular fracture after slip and fall. TTE : - The left ventricle is dilated. Left ventricular systolic function is mildly decreased. EF = 45 ? 5% (visual est.) - The right ventricle is normal in size. Right ventricular systolic function is normal. - The left atrial cavity is mildly dilated. - Mild to moderate (1-2+) MR. - Mild to moderate (1-2+) AI. - Exam was compared with the prior CC echocardiographic exam performed on 07/04/2016 Ejection fraction and MR have improved. TTE with Dr. Barnett: - Exam indication: Evaluation of known heart failure to guide therapy - The left ventricle is normal in size. Left ventricular systolic function is mildly decreased. EF = 45 ? 5% (visual est.) - The right ventricle is normal in size. Right ventricular systolic function is low normal. - The left atrial cavity is severely dilated. - The right atrial cavity is mildly dilated. - The visualized aorta is borderline dilated with a maximal dimension of 3.8 cm. - There is moderate (2+) aortic valve regurgitation. - There are no significant valvular abnormalities. - Exam was compared with the prior CC echocardiographic exam performed on 11/23/2017. Similar findings. IMPRESSION / PLAN: 82 y/o with DCM, LBBB and VT with associated syncope - s/p MATTRESS STRIPPER-D . He was followed by Dr. Darden - last seen 2016. He presented to [facility] longitudinal care for his device . Last seen be id at time of generator change. presents for follow up No CV complaints. No CV events in past year. Looking forward [place] [employer] [place] with [place] On OMT with Entresto and Coreg. Follows with Dr. Barnett at [facility] main - upcoming visits in September 2022 Dizziness with positional changes - chronic issues - consistent with orthostatic intolerance. No arrhythmia n (more content not included)... Normal [facility] CHECKon 3 AV Delay Adaptive Paced Minimum (ms) 130 ms [facility] AV Delay Adaptive Rate Maximum (bpm) 130 {beats}/min [facility] AV Delay Adaptive Rate Minimum (bpm) 90 {beats}/min [facility] AV Delay Adaptive Sensed Minimum (ms) 100 ms [facility] AV Delay Adaptive Status ENABLED [facility] AV Delay Paced (ms) 100 ms [facility] AV Delay Sensed (ms) 70 ms [facility] Battery Voltage 3.04 V [facility] Jaxson LV Pacing Amplitude (volts) 1.5 V [facility] Jaxson LV Pacing Polarity BI [facility] Jaxson LV Pacing Pulse Width (ms) 1.0 ms [facility] Jaxson RA Pacing Amplitude (volts) 1.5 V [facility] Jaxson RA Pacing Polarity BI [facility] Jaxson RA Pacing Pulse Width (ms) 0.4 ms [facility] Jaxson RA Sensing Amplitude (mvolts) 0.3 mV [facility] Jaxson RA Sensing Blanking Period (ms) 150 ms [facility] Jaxson RA Sensing Polarity BI [facility] Jaxson RA Sensing Refractory Period (ms) 300 ms [facility] Jaxson RV Pacing Amplitude (volts) 2.0 V [facility] Jaxson RV Pacing Polarity BI [facility] Jaxson RV Pacing Pulse Width (ms) 0.4 ms [facility] Jaxson RV Sensing Amplitude (mvolts) 0.45 mV [facility] Jaxson RV Sensing Blanking Period (ms) 230 ms [facility] Jaxson RV Sensing Polarity BI [facility] Detection Configuration (Vent) 2 - Zone [facility] FastVT_Detection Interval 320 ms [facility] FastVT_Therapy Configuration 1 ATP(s) + 6 Shock(s) [facility] ICD AFIB DetectionStatus ENABLED [facility] ICD ATAF DetectionInterval ms 350 ms [facility] ICD ATAF DetectionStatus ENABLED [facility] ICD FastVT DetectionStatus ENABLED [facility] ICD-ADLRATE_BPM 85 {beats}/min [facility] ICD-AMS EPISODES 171 {beats}/min [facility] ICD-ATP Episodes (Vent) 0 [facility] ICD-ATRIALFIBRILLATION 0 Cl [facility] ICD-Device Mfg MDT [facility] ICD-LEADIMPEDANCEATRIA L 418 ohm [facility] ICD-Percent Pacing (Atrial) 21.10 % [facility] ICD-Percent Pacing (Vent) 97.29 % [facility] ICD-PMT Intervention Enabled [facility] ICD-PVC Intervention Enabled [facility] ICD-Rate Modulation Acceleration Reaction 30 s [facility] ICD-Rate Modulation Deceleration Exercise [facility] ICD-Rate Modulation Cowley 3 [facility] ICD-Rate Modulation Threshold Medium High [facility] ICD-Rhythm Sinus with CHB, no R V intrinsic at VVI 40bpm [facility] ICD-Shocks Aborted (Vent) 0 [facility] [id number] 0 [facility] ICD-SHOCKSABORTED 0 [facility] ICD-SHOCKSDELIVEREDVEN TRICULAR 0 [facility] ICD-Ventricular Fibrillation 0 [facility] ICD-VVDELAY_MS 0 ms [facility] Implant Date 09/26/2022 [facility] Lead Impedance (LV) 874 ohm [facility] Lead Impedance (RV) 247 ohm [facility] Lead Impedance High Voltage 51 ohm [facility] Lead1 Mfg MDT [facility] Lead2 Mfg MDT [facility] Lead3 Mfg MDT [facility] Location LV [facility] Location RA [facility] Location RV [facility] Lower Rate (bpm) 60 {beats}/min [facility] LV PACING % 97.25 % [facility] Max Sensor Rate (bpm) 130 {beats}/min [facility] MDT_PROG_TACHY_ZONE_DE TECTIONS_STATUS ENABLED [facility] Model [id number] [place] XT HF Quad MATTRESS STRIPPER-D MRI [facility] Model 4298 Attain Performa [facility] Model 5076 CapSureFix Novus [facility] Model 6947M Sprint Quattro Secure [facility] Pacemaker Dependent? YES [facility] Pacing Mode DDDR [facility] Serial Number [id number] [facility] Serial Number [id number] [facility] Serial Number [id number] [facility] Serial Number [id number] [facility] Test Charge Energy 18.0 J [facility] Test Charge Time 3.6 s [facility] Therapy Status (Vent) Enabled [facility] Thresh LV Capture Amplitude (volts) 1.0 V [facility] Thresh LV Capture Duration (ms) 1.0 ms [facility] Thresh RA Capture Amplitude (volts) 0.625 V [facility] Thresh RA Capture Duration (ms) 0.4 ms [facility] Thresh RA Sensing Amplitude (mvolts) 4.5 mV [facility] Thresh RV Capture Amplitude (VOLTS) 1.0 V [facility] Thresh RV Capture Duration (MS) 0.4 ms [facility] Thresh RV Sensing Amplitude (MVOLTS) 1.3 mV [facility] Tracking Rate (bpm) 130 {beats}/min [facility] VF Zone Detection Interval 320 ms [facility] VF Zone Therapy Configuration 1 ATP(s) + 6 Shock(s) [facility] No Panel Informationon 01-18 BLANK _ [facility] ICD-Fast Ventricular Tachycardia 0 [facility] Implant Date 09/27/2015 [facility] ICD REMOTE CHECKon AV Delay Adaptive Paced Minimum (ms) 130 ms [facility] AV Delay Adaptive Rate Maximum (bpm) 130 {beats}/min [facility] AV Delay Adaptive Rate Minimum (bpm) 90 {beats}/min [facility] AV Delay Adaptive Sensed Minimum (ms) 100 ms [facility] AV Delay Adaptive Status ENABLED [facility] AV Delay Paced (ms) 100 ms [facility] AV Delay Sensed (ms) 70 ms [facility] Battery Voltage 3.05 V [facility] Jaxson LV Pacing Amplitude (volts) 1.5 V [facility] Jaxson LV Pacing Polarity BI [facility] Jaxson LV Pacing Pulse Width (ms) 1.0 ms [facility] Jaxson RA Pacing Amplitude (volts) 1.5 V [facility] Jaxson RA Pacing Polarity BI [facility] Jaxson RA Pacing Pulse Width (ms) 0.4 ms [facility] Jaxson RA Sensing Amplitude (mvolts) 0.3 mV [facility] Jaxson RA Sensing Blanking Period (ms) 150 ms [facility] Jaxson RA Sensing Polarity BI [facility] Jaxson RA Sensing Refractory Period (ms) 300 ms [facility] Jaxson RV Pacing Amplitude (volts) 2.0 V [facility] Jaxson RV Pacing Polarity BI [facility] Jaxson RV Pacing Pulse Width (ms) 0.4 ms [facility] Jaxson RV Sensing Amplitude (mvolts) 0.3 mV [facility] Jaxson RV Sensing Blanking Period (ms) 230 ms [facility] Jaxson RV Sensing Polarity BI [facility] Detection Configuration (Vent) 2 - Zone [facility] FastVT_Detection Interval 320 ms [facility] FastVT_Therapy Configuration 1 ATP(s) + 6 Shock(s) [facility] ICD AFIB DetectionStatus ENABLED [facility] ICD ATAF DetectionInterval ms 350 ms [facility] ICD ATAF DetectionStatus ENABLED [facility] ICD FastVT DetectionStatus ENABLED [facility] ICD-ADLRATE_BPM 85 {beats}/min [facility] ICD-AMS EPISODES 171 {beats}/min [facility] ICD-ATP Episodes (Vent) 0 [facility] ICD-ATRIALFIBRILLATION 0 Cl [facility] ICD-Device Mfg MDT [facility] ICD-LEADIMPEDANCEATRIA L 361 ohm [facility] ICD-Percent Pacing (Atrial) 20.50 % [facility] ICD-Percent Pacing (Vent) 96.98 % [facility] ICD-PMT Intervention Enabled [facility] ICD-PVC Intervention Enabled [facility] ICD-Rate Modulation Acceleration Reaction 30 s [facility] ICD-Rate Modulation Deceleration Exercise [facility] ICD-Rate Modulation Cowley 3 [facility] ICD-Rate Modulation Threshold Medium High [facility] ICD-Shocks Aborted (Vent) 0 [facility] [id number] 0 [facility] ICD-SHOCKSABORTED 0 [facility] ICD-SHOCKSDELIVEREDVEN TRICULAR 0 [facility] ICD-Ventricular Fibrillation 0 [facility] ICD-VVDELAY_MS 0 ms [facility] Implant Date 09/26/2022 [facility] Lead Impedance (LV) 817 ohm [facility] Lead Impedance (RV) 228 ohm [facility] Lead Impedance High Voltage 47 ohm [facility] Lead1 Mfg MDT [facility] Lead2 Mfg MDT [facility] Lead3 Mfg MDT [facility] Location LV [facility] Location RA [facility] Location RV [facility] Lower Rate (bpm) 60 {beats}/min [facility] LV PACING % 96.94 % [facility] Max Sensor Rate (bpm) 130 {beats}/min [facility] MDT_PROG_TACHY_ZONE_DE TECTIONS_STATUS ENABLED [facility] Model [id number] [place] XT HF Quad MATTRESS STRIPPER-D MRI [facility] Model 4298 Attain Performa [facility] Model 5076 CapSureFix Novus [facility] Model 6947M Sprint Quattro Secure [facility] Pacing Mode DDDR [facility] Serial Number [id number] [facility] Serial Number [id number] [facility] Serial Number [id number] [facility] Serial Number [id number] [facility] Test Charge Energy 18.0 J [facility] Test Charge Time 3.6 s [facility] Therapy Status (Vent) Enabled [facility] Thresh LV Capture Amplitude (volts) 1.0 V [facility] Thresh LV Capture Duration (ms) 1.0 ms [facility] Thresh RA Capture Amplitude (volts) 0.5 V [facility] Thresh RA Capture Duration (ms) 0.4 ms [facility] Thresh RA Sensing Amplitude (mvolts) 3.8 mV [facility] Thresh RV Capture Amplitude (VOLTS) 1.0 V [facility] Thresh RV Capture Duration (MS) 0.4 ms [facility] Thresh RV Sensing Amplitude (MVOLTS) 1.3 mV [facility] Tracking Rate (bpm) 130 {beats}/min [facility] VF Zone Detection Interval 320 ms [facility] VF Zone Therapy Configuration 1 ATP(s) + 6 Shock(s) [facility] No Panel Informationon 01-04 BLANK _ [facility] ICD-ATRIALTACHYCARDIA 0 [facility] ICD-Fast Ventricular Tachycardia 0 [facility] Implant Date 09/27/2015 [facility] Janis 11-08-2022 LYNNE Telephone (CARDMN) -------- JAIME ANN ([id number]) 1940 M Date Time Provider Department 11/08/22 LAMINE KATZ During your visit today, we recorded the following information about you: Gordo Montalvo, RN 11/08/2022 2:12 PM Signed After reviewing all documents and 1 High rate-NS event, EGM shows one 1 second of TWOS and noise/oversensing. Patient had this back in June and patient came in 06/15/20 to have changes made and no further episodes occurred. It appears the changes (which were RV sensing from bipolar to integrated bipolar, and sensitivity from 0.30mV to 0.45mV) were not changed in the new ICD. I called patient requesting him to come back (as he was driving back home) and he said would like to wait until he comes back to see Dr. Katz in January. I did let patient and know that if patient experiences any dizziness or weird feelings like he did back in 2020 to be seen sooner. Patient and verbally confirmed understanding. Updated Dr. Katz. MULTI LEAD ICD EVALUATION PRESENTS FOR: 4-6 week post implant device check. PRESENTING EGM: AP-/BiVP UNDERLYING RHYTHM: Sinus jaxson with CHB, rare ventricular escape at VVI 30bpm. BATTERY STATUS: Estimated time remaining to CONNIE is 8.8 years. COUNTERS SINCE: 09/26/22 ATRIAL ARRHYTHMIAS: None. VENTRICULAR ARRHYTHMIAS: There was 1 High Rate-NS episode on 10/03/22 at 12:05am for 1 second. EGM shows TWOS/lead noise, which patient previously had in previous device (in-clinic check explains full extent 06/15/20). LEAD MEASUREMENTS: Capture and RA sensing are appropriate. The pacing outputs maintain safety margin. Review of the lead impedance trends are normal. Upon reviewing of episode, RV sensitivity is at 0.30mV, and RV sensing is bipolar (Previous device was programmed with RV sensitivity at 0.45mV, and sense polarity was integrated bipolar). IMPLANT SITE/ SYMPTOMS: The incision and pocket are pain-free, well healed and without signs of erosion or infection. OTHER DIAGNOSTICS: RA pacing 23.5%, Nonadaptive BiV pacing 96.9%. PROGRAMMING CHANGES MADE TODAY: Turned ON post-shock pacing. FOLLOW UP: After reviewing EGM and patient's programming history quite awhile after patient left, I attempted to call patient back for programming changes. Patient reports he would like to wait until January, as he is almost home (Lives in [facility]). Telephone encounter documented in [place]. Update Dr. Katz. Continue Q3 month remotes and routine in clinic device checks. RAMONITA Regalado 11/21/2022 1:00 PM Signed Patient is scheduled for device check before appointment with Dr. Katz Allergies As of Date: 11/08/2022 Noted Allergy Reaction LISINOPRIL 07/04/2016 3 - Cough Date Reviewed: 10/05/2022 Reviewed by: Karon Conteh Ma - Fully Assessed Reason for Visit: Patient Update [1234] Functional Skills Tutor - Other [3602] Cmt: ICD settings Prescriptions as of 11/21/2022 - nortriptyline (PAMELOR) 50 mg capsule Take 50 mg by mouth twice daily. - carvedilol (COREG) 25 mg tablet Take 1 tablet by mouth twice daily with meals. - atorvastatin (LIPITOR) 20 mg tablet Take 1 tablet by mouth once daily. - sacubitril-valsartan (ENTRESTO) 49-51 mg tablet Take 1 tablet by mouth twice daily. - OTC NUTRITIONAL SUPPLEMENT 2 tablets once daily. Nerve Renew - ZINC ACETATE ORAL Take by mouth once daily. - MULTI-VITAMIN ORAL Take by mouth. - CHOLECALCIFEROL, VITAMIN D3, (VITAMIN D3 ORAL) Take 1,000 Units by mouth once daily. - Coenzyme Q10 (CO Q-10) 400 mg cap Take 1 capsule by mouth once daily. - caipkecihva-O5-Jwwqdpagj serr 1,500-400-100 mg-unit-mg tab Take 1 tablet by mouth once daily. Facility-Administered Medications as of 11/21/2022 - perflutren lipid microspheres 1.3 mL in NaCl (PF) 0.9% 10 mL injection (DEFINITY) - sodium chloride 0.9 % (flush) 10 mL (BD POSIFLUSH) Problem List As Of Date 11/08/2022 Noted Resolved Left bundle branch block [I44.7] 10/16/2014 Hypertension [I10] 10/16/2014 10/06/2016 Near syncope [R55] 10/16/2014 Hx of ventricular tachycardia [Z86.79] 10/16/2014 Splenic artery aneurysm (HCC) [I72.8] 02/19/2015 Cellulitis due to MRSA [L03.90, B95.62] 08/05/2015 Syncope [R55] 09/21/2015 SUMMARY 09/22/2015 Non-ischemic cardiomyopathy (HCC) [I42.8] 09/22/2015 Chronic systolic heart failure (HCC) [I50.22] 09/24/2015 Biventricular ICD (implantable cardioverter-def* 016 Renal insufficiency [N28.9] 07/19/2016 Carotid stenosis [I65.29] Malignant neoplasm of left kidney, except renal*10/06/2016 Essential hypertension [I10] 10/06/2016 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 Normal [facility] ICD CLINIC CHECKon 3 AV Delay Adaptive Paced Minimum (ms) 130 ms [facility] AV Delay Adaptive Rate Maximum (bpm) 130 {beats}/min [facility] AV Delay Adaptive Rate Minimum (bpm) 90 {beats}/min [facility] AV Delay Adaptive Sensed Minimum (ms) 100 ms [facility] AV Delay Adaptive Status ENABLED [facility] AV Delay Paced (ms) 100 ms [facility] AV Delay Sensed (ms) 70 ms [facility] Battery Voltage 3.12 V [facility] Jaxson LV Pacing Amplitude (volts) 1.5 V [facility] Jaxson LV Pacing Polarity BI [facility] Jaxson LV Pacing Pulse Width (ms) 1.0 ms [facility] Jaxson RA Pacing Amplitude (volts) 1.5 V [facility] Jaxson RA Pacing Polarity BI [facility] Jaxson RA Pacing Pulse Width (ms) 0.4 ms [facility] Jaxson RA Sensing Amplitude (mvolts) 0.3 mV [facility] Jaxson RA Sensing Blanking Period (ms) 150 ms [facility] Jaxson RA Sensing Polarity BI [facility] Jaxson RA Sensing Refractory Period (ms) 300 ms [facility] Jaxson RV Pacing Amplitude (volts) 2.0 V [facility] Jaxson RV Pacing Polarity BI [facility] Jaxson RV Pacing Pulse Width (ms) 0.4 ms [facility] Jaxson RV Sensing Amplitude (mvolts) 0.3 mV [facility] Jaxson RV Sensing Blanking Period (ms) 230 ms [facility] Jaxson RV Sensing Polarity BI [facility] Detection Configuration (Vent) 2 - Zone [facility] FastVT_Detection Interval 320 ms [facility] FastVT_Therapy Configuration 1 ATP(s) + 6 Shock(s) [facility] ICD AFIB DetectionStatus ENABLED [facility] ICD ATAF DetectionInterval ms 350 ms [facility] ICD ATAF DetectionStatus ENABLED [facility] ICD FastVT DetectionStatus ENABLED [facility] ICD-ADLRATE_BPM 85 {beats}/min [facility] ICD-AMS EPISODES 171 {beats}/min [facility] ICD-ATP Episodes (Vent) 0 [facility] ICD-ATRIALFIBRILLATION 0 Cl [facility] ICD-Device Mfg MDT [facility] ICD-LEADIMPEDANCEATRIA L 399 ohm [facility] ICD-Percent Pacing (Atrial) 23.13 % [facility] ICD-Percent Pacing (Vent) 96.87 % [facility] ICD-PMT Intervention Enabled [facility] ICD-PVC Intervention Enabled [facility] ICD-Rate Modulation Acceleration Reaction 30 s [facility] ICD-Rate Modulation Deceleration Exercise [facility] ICD-Rate Modulation Cowley 3 [facility] ICD-Rate Modulation Threshold Medium High [facility] ICD-Rhythm Sinus jaxson with CHB , rare ventricular escape at VVI 30bpm. [facility] ICD-Shocks Aborted (Vent) 0 [facility] [id number] 0 [facility] ICD-SHOCKSABORTED 0 [facility] ICD-SHOCKSDELIVEREDVEN TRICULAR 0 [facility] ICD-Ventricular Fibrillation 0 [facility] ICD-VVDELAY_MS 0 ms [facility] Implant Date 09/26/2022 [facility] Lead Impedance (LV) 912 ohm [facility] Lead Impedance (RV) 228 ohm [facility] Lead Impedance High Voltage 48 ohm [facility] Lead1 Mfg MDT [facility] Lead2 Mfg MDT [facility] Lead3 Mfg MDT [facility] Location LV [facility] Location RA [facility] Location RV [facility] Lower Rate (bpm) 60 {beats}/min [facility] LV PACING % 96.82 % [facility] Max Sensor Rate (bpm) 130 {beats}/min [facility] MDT_PROG_TACHY_ZONE_DE TECTIONS_STATUS ENABLED [facility] Model [id number] [place] XT HF Quad MATTRESS STRIPPER-D MRI [facility] Model 4298 Attain Performa [facility] Model 5076 CapSureFix Novus [facility] Model 6947M Sprint Quattro Secure [facility] Pacemaker Dependent? YES [facility] Pacing Mode DDDR [facility] Serial Number [id number] [facility] Serial Number [id number] [facility] Serial Number [id number] [facility] Serial Number [id number] [facility] Test Charge Energy 40.0 J [facility] Test Charge Time 0 s [facility] Therapy Status (Vent) Enabled [facility] Thresh LV Capture Amplitude (volts) 1.0 V [facility] Thresh LV Capture Duration (ms) 1.0 ms [facility] Thresh RA Capture Amplitude (volts) 0.5 V [facility] Thresh RA Capture Duration (ms) 0.4 ms [facility] Thresh RA Sensing Amplitude (mvolts) 4.3 mV [facility] Thresh RV Capture Amplitude (VOLTS) 0.75 V [facility] Thresh RV Capture Duration (MS) 0.4 ms [facility] Thresh RV Sensing Amplitude (MVOLTS) 1.3 mV [facility] Tracking Rate (bpm) 130 {beats}/min [facility] VF Zone Detection Interval 320 ms [facility] VF Zone Therapy Configuration 1 ATP(s) + 6 Shock(s) [facility] No Panel Informationon 11-08 BLANK _ [facility] ICD-Fast Ventricular Tachycardia 0 [facility] Implant Date 09/27/2015 [facility] LABORATORYOrdered By: Malachi iEd on 10-31-2022 Creatinine (U) [Mass/Vol] 51.6 mg/dL Invalid Interpretation Code 39.0 - 259.0 mg/dL AO ADM SS Protein (U) [Mass/Vol] 97 mg/dL Invalid Interpretation Code 0 - 11 mg/dL AO ADM SS U Ratio Prot/Creat 1.9 ratio Invalid Interpretation Code AO Chemistry S Erythrocyte distribution width (RBC) [Ratio] 17.3 % Invalid Interpretation Code 11.5 - 14.5 % AO Workflow SS Hematocrit (Bld) [Volume fraction] 32.8 % Invalid Interpretation Code 42.0 - 52.0 % AO Workflow SS Hemoglobin (Bld) [Mass/Vol] 10.5 G/dL Invalid Interpretation Code 14.0 - 18.0 G/dL AO Workflow SS MCH (RBC) [Entitic mass] 26.9 pg Invalid Interpretation Code 27.0 - 31.2 pg AO Workflow SS MCHC 32.0 G/dL Invalid Interpretation Code 31.8 - 35.4 G/dL AO Workflow SS MCV (RBC) [Entitic vol] 84.0 fL Invalid Interpretation Code 80.0 - 94.0 fL AO Workflow SS Platelet mean volume (Bld) [Entitic vol] 7.4 fL Invalid Interpretation Code 7.4 - 10.4 fL AO Workflow SS Platelets (Bld) [#/Vol] 234 103/mcL Invalid Interpretation Code 130 - 400 10^3/mcL AO Workflow SS RBC (Bld) [#/Vol] 3.91 106/mcL Invalid Interpretation Code 4.04 - 6.13 10^6/mcL AO Workflow SS WBC (Bld) [#/Vol] 53.5 103/mcL Invalid Interpretation Code 4.6 - 10.8 10^3/mcL AO Workflow SS LABORATORYOrdered By: SYSTEM SYSTEM on 10-31-2022 25-hydroxyvitamin D3 [Mass/Vol] 96.2 ng/mL Invalid Interpretation Code AO ADM SS Calcium [Mass/Vol] 9.4 mg/dL Invalid Interpretation Code 8.4 - 10.2 mg/dL AO ADM SS Chloride [Moles/Vol] 105 mmol/L Invalid Interpretation Code 98 - 107 mmol/L AO ADM SS CO2 [Moles/Vol] 31 mmol/L Invalid Interpretation Code 23 - 31 mmol/L AO ADM SS Creatinine [Mass/Vol] 1.76 mg/dL Invalid Interpretation Code 0.70 - 1.30 mg/dL AO ADM SS Electrolyte Balance 5.0 mEq/L Invalid Interpretation Code 4.0 - 15.0 mEq/L AO ADM SS Ferritin [Mass/Vol] 58.0 ng/mL Invalid Interpretation Code 26.0 - 388.0 ng/mL AO ADM SS GFR/1.73 sq M.predicted among blacks MDRD (S/P/Bld) [Vol rate/Area] 45 ml/min/1.73sqm Invalid Interpretation Code AO Chemistry S GFR/1.73 sq M.predicted among non-blacks MDRD (S/P/Bld) [Vol rate/Area] 37 ml/min/1.73sqm Invalid Interpretation Code AO Chemistry S Glucose [Mass/Vol] 103 mg/dL Invalid Interpretation Code 83 - 110 mg/dL AO ADM SS Iron [Mass/Vol] 30 ug/dL Invalid Interpretation Code 65 - 175 mcg/dL AO ADM SS Iron binding capacity [Mass/Vol] 303 mcg/dL Invalid Interpretation Code 250 - 450 mcg/dL AO ADM SS Iron Sat 10 1 Invalid Interpretation Code AO ADM SS Parathyrin.intact [Mass/Vol] 77.0 pg/mL Invalid Interpretation Code 18.5 - 88.0 pg/mL AH ADM SS Potassium [Moles/Vol] 4.5 mmol/L Invalid Interpretation Code 3.5 - 5.1 mmol/L AO ADM SS Sodium [Moles/Vol] 141 mmol/L Invalid Interpretation Code 136 - 145 mmol/L AO ADM SS Urea nitrogen [Mass/Vol] 38 mg/dL Invalid Interpretation Code 7 - 18 mg/dL AO ADM SS Urea nitrogen/Creatinine [Mass ratio] 22 ratio Invalid Interpretation Code 7 - 27 ratio AO ADM SS Uric Acid Lvl 5.7 mg/dL Invalid Interpretation Code 3.5 - 7.2 mg/dL AO ADM SS LABORATORYOrdered By: Justice Ramirez on 10-31-2022 Basophil %, Manual 0.0 1 Invalid Interpretation Code 0.0 - 2.5 % AO Workflow SS Basophil, Abs Manual 0.0 103/mcL Invalid Interpretation Code 0.0 - 0.2 10^3/mcL AO Workflow SS Eosinophil %, Manual 0.0 1 Invalid Interpretation Code 0.0 - 7.0 % AO Workflow SS Eosinophils (Bld) [#/Vol] 0.0 103/mcL Invalid Interpretation Code 0.0 - 0.4 10^3/mcL AO Workflow SS Lymphocyte %, Manual 91.0 1 Invalid Interpretation Code 10.0 - 50.0 % AO Workflow SS Lymphocyte, Abs Manual 48.7 103/mcL Invalid Interpretation Code 0.8 - 3.9 10^3/mcL AO Workflow SS Monocyte %, Manual 3.0 1 Invalid Interpretation Code 1.7 - 13.0 % AO Workflow SS Monocyte, Abs Manual 1.6 103/mcL Invalid Interpretation Code 0.2 - 1.0 10^3/mcL AO Workflow SS Neutrophil %, Manual 6.0 1 Invalid Interpretation Code 37.0 - 80.0 % AO Workflow SS Neutrophil, Abs Manual 3.2 103/mcL Invalid Interpretation Code 2.9 - 6.2 10^3/mcL AO Workflow SS Nucleated RBC 0.0 /100 WBC Invalid Interpretation Code AO Workflow SS Ovalocytes LM Ql (Bld) 1+ (10/31/22 10:45 AM) Invalid Interpretation Code AO Hematology S Platelet Estimate Normal (10/31/22 10:45 AM) Invalid Interpretation Code AO Hematology S Poikilocytosis LM Ql (Bld) 1+ (10/31/22 10:45 AM) Invalid Interpretation Code AO Hematology S Smudge Cells 2+ (10/31/22 10:45 AM) Invalid Interpretation Code AO Hematology S Tear Cell 1+ (10/31/22 10:45 AM) Invalid Interpretation Code AO Hematology S LABORATORYOrdered By: Yazan Conteh on 10-31-2022 Protein [Mass/Vol] 5.7 G/dL Invalid Interpretation Code 5.7 - 8.2 G/dL AH ADM SS CNPNon 10-13-2022 CNPN Telephone (CARDMN) -------- JAIME ANN ([id number]) 1940 M Date Time Provider Department 10/13/22 LAMINE KATZ During your visit today, we recorded the following information about you: Sevar Consult 10/13/2022 12:34 PM Signed Post Implant follow up call: Date: 10/13/2022 Name: Jaime Humphreyswald Is your incision: Red: No Open: No Swollen: No Draining: No Steri Strips: fell off If the device is an ICD, have you received any shocks: No Have you received your temporary or permanent ID card: Yes Do you have your f/u appointment: Yes Appointments for Next 60 Days Date Time Provider Location Dept Phone 11/08/2022 12:45 PM [facility] [phone] Any scheduling issues:No Questions moving forward: No Sevar Consult Allergies As of Date: 10/13/2022 Noted Allergy Reaction LISINOPRIL 07/04/2016 3 - Cough Date Reviewed: 10/05/2022 Reviewed by: Karon Conteh Ma - Fully Assessed Reason for Visit: device survey [Other] Prescriptions as of 10/13/2022 - nortriptyline (PAMELOR) 50 mg capsule Take 50 mg by mouth twice daily. - carvedilol (COREG) 25 mg tablet Take 1 tablet by mouth twice daily with meals. - atorvastatin (LIPITOR) 20 mg tablet Take 1 tablet by mouth once daily. - sacubitril-valsartan (ENTRESTO) 49-51 mg tablet Take 1 tablet by mouth twice daily. - OTC NUTRITIONAL SUPPLEMENT 2 tablets once daily. Nerve Renew - ZINC ACETATE ORAL Take by mouth once daily. - MULTI-VITAMIN ORAL Take by mouth. - CHOLECALCIFEROL, VITAMIN D3, (VITAMIN D3 ORAL) Take 1,000 Units by mouth once daily. - Coenzyme Q10 (CO Q-10) 400 mg cap Take 1 capsule by mouth once daily. - knfzxfjwvvo-O9-Pbbkqeceo serr 1,500-400-100 mg-unit-mg tab Take 1 tablet by mouth once daily. Facility-Administered Medications as of 10/13/2022 - perflutren lipid microspheres 1.3 mL in NaCl (PF) 0.9% 10 mL injection (DEFINITY) - sodium chloride 0.9 % (flush) 10 mL (BD POSIFLUSH) Problem List As Of Date 10/13/2022 Noted Resolved Left bundle branch block [I44.7] 10/16/2014 Hypertension [I10] 10/16/2014 10/06/2016 Near syncope [R55] 10/16/2014 Hx of ventricular tachycardia [Z86.79] 10/16/2014 Splenic artery aneurysm (HCC) [I72.8] 02/19/2015 Cellulitis due to MRSA [L03.90, B95.62] 08/05/2015 Syncope [R55] 09/21/2015 SUMMARY 09/22/2015 Non-ischemic cardiomyopathy (HCC) [I42.8] 09/22/2015 Chronic systolic heart failure (HCC) [I50.22] 09/24/2015 Biventricular ICD (implantable cardioverter-def* 016 Renal insufficiency [N28.9] 07/19/2016 Carotid stenosis [I65.29] Malignant neoplasm of left kidney, except renal*10/06/2016 Essential hypertension [I10] 10/06/2016 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] 07/10/2017 Peripheral polyneuropathy (HCC) [G62.9] 07/10/2017 Abnormality of gait [R26.9] 07/10/2017 Disturbance of skin sensation [R20.9] 07/10/2017 Pain in both lower extremities [M79.604, M79.60*07/10/2017 Abnormal finding of blood chemistry [R79.9] 07/10/2017 Abnormal glucose [R73.09] 07/10/2017 CLL (chronic lymphocytic leukemia) ([facility]) [C91.1*04/02/2019 History of prostate cancer [Z85.46] 04/02/2019 VT (ventricular tachycardia) ([facility]) [I47.20] 10/05/2022 Type 2 diabetes mellitus with hyperosmolarity w*10/05/2022 Encounter Status:Closed by SORAIDA FONSECA on 10/13/22 [facility] CNOVon 10-05-2022 CNOV Office Visit (CARD C HF ALEXI) -------- JAIME ANN ([id number]) 1940 Date Time Provider Department 10/05/22 11:45 AM APPLE BARNETT CHF ALEXI During your visit today, we recorded the following information about you: Pulse Blood pressure Weight Height 61/minute 154/74 80.3 kg 1.778 m Apple Barnett MD 10/05/2022 1:39 PM [facility] [place] [facility] SECTION OF HEART FAILURE and CARDIAC TRANSPLANT MEDICINE OUTPATIENT VISIT DATE October 05, 2022 OUTPATIENT VISIT TYPE Established Patient PRIMARY CARE PHYSICIAN: Kenn Turcios NP [address] [place] [address] CHIEF COMPLAINT: HF f/u NURSING INTAKE (Patient?s concerns and/or recent hospitalizations/ER visits): HF Nursing Assessment: Interim Hospitalizations and/or ER visits:09/26/2022 VT Chest Pain: no Skipping or irregular heartbeats: no Shortness of breath at rest: no Shortness of breath with activity: no Cough: no Waking up in the middle of the night gasping for air: no Lightheadedness or dizziness: yes, looking up and down Feeling like you are going to pass out: no Actually passing out: no Poor energy level: yes Unintentional weight gain: no Unintentional weight loss: no Swelling in your legs,feet, abdomen: no Filling up quickly when you eat: no HISTORY OF PRESENT ILLNESS: No new issues PAST MEDICAL HISTORY Diagnosis Date Chronic lymphocytic leukemia (HCC) HTN (hypertension) Liver cyst Non-ischemic cardiomyopathy (HCC) Peripheral neuropathy Prostate cancer (HCC) s/p external radiation. no resection Splenic artery aneurysm (HCC) Subdural hematoma (HCC) summer 2015, after heart stopped and fell, s/p evacuation Ventricular tachycardia (HCC) in 1983 and 2015 PAST SURGICAL HISTORY Procedure Laterality Date MATTRESS STRIPPER ICD (ICDCRT) 09/2015 FASCT PALM W/WO Z-PLASTY TISSUE REARGMT/SKN GRFT Left 04/04/2019 Left palmar fasciectomy HAND SURGERY HX 2014 detrupens contracture PAST SURGICAL HISTORY OF Right CMC arthroplasty PAST SURGICAL HISTORY OF percutaneous splenic artery aneurysm repair VASCULAR EMBOLIZATION OR OCCLUSION ARTERIAL RSANDI SOCIAL HISTORY Social History Tobacco Use Smoking status: Never Smokeless tobacco: Never Vaping Use Vaping Use: Never used Substance Use Topics Alcohol use: Yes Comment: rare use Drug use: No FAMILY HISTORY Problem Relation Age of Onset Stroke Mother Hypertension Mother Diabetes Mother Diabetes Father Ischemic Heart Disease Father ALLERGIES: ALLERGIES Allergen Reactions Lisinopril Cough CURRENT MEDICATIONS: nortriptyline (PAMELOR) 50 mg capsuleTake 50 mg by mouth twice daily.Disp: Rfl: carvedilol (COREG) 25 mg tabletTake 1 tablet by mouth twice daily with meals.Disp: 180 tabletRfl: 3 atorvastatin (LIPITOR) 20 mg tabletTake 1 tablet by mouth once daily.Disp: 90 tabletRfl: 3 sacubitril-valsartan (ENTRESTO) 49-51 mg tabletTake 1 tablet by mouth twice daily.Disp: 60 tabletRfl: 11 OTC NUTRITIONAL SUPPLEMENT2 tablets once daily. Nerve Renew Disp: Rfl: ZINC ACETATE ORALTake by mouth once daily.Disp: Rfl: MULTI-VITAMIN ORALTake by mouth.Disp: Rfl: CHOLECALCIFEROL, VITAMIN D3, (VITAMIN D3 ORAL)Take 1,000 Units by mouth once daily. Disp: Rfl: Coenzyme Q10 (CO Q-10) 400 mg capTake 1 capsule by mouth once daily. Disp: Rfl: xibggwflgpb-I9-Xbcgtiuxa serr 1,500-400-100 mg-unit-mg tabTake 1 tablet by mouth once daily.Disp: Rfl: REVIEW OF SYSTEMS: ROS HEART FAILURE PATIENT ENTERED DATA: No flowsheet data found. PHQ-9 06/19/2017 Score 3 PROMIS Global Health - (T-Scores - the mean of general population = 50. Five points is a clinically meaningful difference.) 06/19/2017 03/04/2019 03/04/2019 Physical T-Score 47.7 - - Mental T-Score 53.3 50.8 50.8 PHYSICAL EXAMINATION: BP 154/74 (BP Site: Left Arm) Pulse 61 Ht 177.8 cm (5' 10") Wt 80.3 kg (177 lb) SpO2 99% BMI 25.40 kg/m? which is 3 lbs less than last visit. General: no distress, obese, accompanied by family Skin: No clubbing, no cyanosis. Eyes: Anicteric sclerae Neck: Neck veins are not distended, no carotid bruits Lungs: Chest clear to auscultation Heart: Rhythm: regular rate and rhythm, Rate: normal, no murmur Abdomen: No HSM, normal bowel sounds Extremities: No edema Labs on 10/26/2019: Na 140, K 4.0, BUN 18, Cr 1.1, WBC 32.6, hgb 12.4, plt 276 Labs Feb 2022 Alkphos 98, LDH 249, TC 45, TTG 110, LDL 147, Hgb a1C 6.2 Labs 05/24/22: WBC 52.9, hct 33.5, hgb 10.5, plt 221, TP 5.8, ALB 3.6, ALT 24, AST 22, Tbili 0.5, Ca 9.3, Na 142, K 4.6, BUN 38, Cr 1.68, glucose 94, TSH 2.84, Component Latest Ref Rng AND Units 07/29/2020 09/26/2022 Protein, Total 6.3 - 8.0 g/dL 5.8 (L) Albumin 3.9 - 4.9 g/dL 4.1 Calcium 8.5 - 10.2 mg/dL 9.4 9.3 Bilirubin, Total 0.2 - 1.3 mg/dL 0.3 Alkaline Phosp (more content not included)... Normal [facility] ECHOon 10-05-2022 Echocardiography Echocardiography Rep ort: Transthoracic Echo [facility] J1-5 Date of service: 10/05/2022 10:02:15 AM ICER Ordering physician: APPLE BARNETT Indication: Chronic systolic HF Technologist: Lalitha Hayes and Cesilia Infante RD Fellow: Mark Kramer MD Interpreting physician: Loc De La Cruz MD PATIENT: Name: MR. JAIME ANN : 1940 Age: 82 years Gender: M History of cardiomyopathy, valvular heart disease, hypertension, arrhythmia, heart failure with hospitalization and syncope. Previous cardiovascular interventions: BIV ICD pacemaker implant (2016) Primary rhythm: V. Paced. Height: 177.80 cm BSA: 2.01 m Weight: 81.65 kg BMI: 25.8 kg/m Heart rate 61 bpm Blood pressure 142/55 mmHg Color Doppler was utilized to interrogate the cardiac valves assessed and spectral Doppler was utilized to determine the flow velocities and pressure gradients reported in this exam. Myocardial strain analysis was performed in this exam to aid in the assessment of cardiac function. MEASUREMENTS: Value Indexed Normal Max aortic dimension 3.6 cm Ao < 3.8 Left atrial volume 72 ml (biplane A-L) 36 ml/m Galen <= 34 LV ID (diastole) 5.8 cm (2D) 2.89 cm/m LV ID (systole) 4.4 cm (2D) 2.19 cm/m IVS, leaflet tips 1.1 cm (2D) Posterior wall thickness 1.1 cm (2D) Left ventricular mass 264 g (2D) 132 g/m Global peak long strain -8.5 % LV stroke volume 54 ml (2D biplane) LV end diastolic volume 113 ml (2D biplane) 56.4 ml/m 34<=EDVi<75 LV end systolic volume 59 ml (2D biplane) 29.3 ml/m Ejection Fraction 48 % (2D biplane) EF > 52 FINDINGS: LEFT VENTRICLE The left ventricle is normal in size. There is prominent trabeculation of the left ventricle. Left ventricular systolic function is mildly decreased globally. Global LV myocardial strain is abnormal. Left ventricular diastolic function was not evaluated due to >2+ AI and >2+ MR. Mitral annular lateral E/e': 8.6. Mitral annular septal E/e': 8.6. Wall Motion: The entire anterior wall, entire lateral wall, entire septum, entire apex, and entire inferior wall are mildly hypokinetic. RIGHT VENTRICLE The right ventricle is normal in size. Pacer wires are noted in the right ventricle. Right ventricular systolic function is low normal. RV systolic tissue Doppler velocity is 16.0 cm/s. Tricuspid annular displacement is 3.2 cm. Estimated right ventricular systolic pressure is not reported due to an insufficient tricuspid regurgitation signal. Estimated right atrial pressure is 3 mmHg based on IVC assessment. LEFT ATRIUM The left atrial cavity is mildly dilated. Pulmonary Veins: The pulmonary venous pattern showed blunted systolic flow. RIGHT ATRIUM The right atrial cavity is normal in size. Pacer wires are noted in the right atrium. Inferior Vena Cava: The inferior vena cava appears normal measuring 1.8 cm. The vessel decreases greater than 50 percent with inspiration. MITRAL VALVE There is moderately severe (3+) holosystolic mitral valve regurgitation. There is mild thickening. Regurgitant orifice area (PISA) is 0.23 cm . The pressure half time is 70 msec. The peak mitral E/A ratio is 0.70. The average mitral E/e' ratio is 8.6. The mitral flow deceleration time is 243 msec. TRICUSPID VALVE The tricuspid valve leaflets are structurally normal. There is trace tricuspid valve regurgitation. AORTIC VALVE There is moderate (2+) aortic valve regurgitation. Tricuspid aortic valve. There is mild thickening. The peak gradient is 8 mmHg (peak velocity = 144.0 cm/s). PULMONIC VALVE The pulmonic valve cusps are structurally normal. There is trace pulmonic valve regurgitation. AORTA The visualized aorta is normal in size. Measurements - Sinus: 3.6 cm. Mid ascending aorta 3.4 cm. Distal ascending aorta 3.5 cm. PULMONARY ARTERIES The pulmonary arteries are normal. INTERATRIAL SEPTUM There is no evidence of intracardiac shunting as detected by Doppler. INTERVENTRICULAR SEPTUM There is abnormal motion of the interventricular septum secondary to a pacemaker. There is no flow through the interventricular septum as detected by Doppler. PERICARDIUM There is no pericardial effusion. CONCLUSIONS: - Exam indication: Chronic systolic HF - The left ventricle is normal in size. Left ventricular systolic function is mildly decreased. EF = 48 5% (2D biplane) Left ventricular diastolic function was not evaluated due to >2+ AI and >2+ MR. - The right ventricle is normal in size. Right ventricular systolic function is low normal. - The left atrial cavity is mildly dilated. - There is moderately severe (3+) holosystolic mitral valve regurgitation. Regurgitant orifice area (PISA) is 0.23 cm . - There is moderate (2+) aortic valve regurgitation. - Exam was compared with the prior echocardiographic exam performed on 02/17/2021. Interval progression of MR severit (more content not included)... Normal [facility] BRIEF OP NOTon 09-26-2022 BRIEF OP NOT HNO ID: [id number] Author: William Heard MD Service: Electrophysiology Author Type: Fellow Type: Brief Op Note Filed: 09/26/2022 10:40 AM Note Text: [facility]LECTR[facility] BRIEF PROCEDURE NOTE Jaime Ann [id number] Physician Team: - Attending: Lamine Katz MD - Fellow: William Heard MD - Primary Care: Kenn Turcios NP, BUYER ASSISTANT.NURSING UNIT CLERK PATIENT AND PROCEDURE: CRTD generator change OUTCOME: successful ACCESS: Left prepectoral pocket COMPLICATIONS: none Estimated blood loss: 10cc Specimen removed: Old generator PLAN: - Post-procedure device check ordered. - Avoid heparin and enoxaparin for the next 48-72 hours due to risk of pocket hematoma. - No changes to outpatient medications upon discharge. - Plan for same day discharge Full report will follow in Psychiatric. William Heard MD Cardiac Electrophysiology Fellow Pager [phone] 09/26/2022 10:39 AM Normal [facility] Basic metabolic 2000 panelon 09-26-2022 Anion gap [Moles/Vol] 7 mmol/L Low 9-18 [facility] Comment on above: Order Comment: Spectim silva Type: BLOOD SPECIMENOrdering Facility: [facility] Address: [address] [id number] Performed By: #### 2 4321-2 ####[facility] LABCLIA [id number] [place] [address] [place] Calcium [Mass/Vol] 9.3 mg/dL Normal 8.5-10.2 [facility] Comment on above: Order Comment: Glynn silva Type: BLOOD SPECIMENOrdering Facility: [facility] Address: [address] [address] Performed By: #### 2 4321-2 ####[facility] LABCLIA [id number] [place] [address] [place] Chloride [Moles/Vol] 108 mmol/L High 97-105 [facility] Comment on above: Order Comment: Speci men Type: BLOOD SPECIMENOrdering Facility: [facility] Address: [address] [place] [address] Performed By: #### 2 4321-2 ####[facility] LABIA [id number] [place] [address] [place] CO2 [Moles/Vol] 28 mmol/L Normal 22-30 [facility] Comment on above: Order Comment: Speci men Type: BLOOD SPECIMENOrdering Facility: [facility] Address: [address] [place] [address] Performed By: #### 2 4321-2 ####[facility] LABIA [id number] [address] STATES OF [facility] Creatinine [Mass/Vol] 1.87 mg/dL High 0.73-1.22 [facility] Comment on above: Order Comment: Speci men Type: BLOOD SPECIMENOrdering Facility: [facility] Address: [address] [place] [address] Performed By: #### 2 4321-2 ####[facility] LABIA [id number] [address] OF [facility] ESTIMATED GLOMERULAR FILTRATION RATE 35 mL/min/1.73m??? Low >=60 [facility] Comment on above: Order Comment: Speci men Type: BLOOD SPECIMENOrdering Facility: [facility] Address: [address] [place] [address] Result Comment: Melania mated Glomerular Filtration Rate (eGFR) is calculated using the 2020 CKD-EPI creatinine equation. This equation utilizes serum creatinine, sex, and age as parameters. The creatinine assay has traceable calibration to isotope dilution-mass spectrometry. Refer to KDIGO guidelines for clinical interpretation. In patients with unstable renal function, e.g. those with acute kidney injury, the eGFR may not accurately reflect actual GFR. Performed By: #### 2 4321-2 ####[facility] LABIA [id number] [place] [address] [place] Glucose [Mass/Vol] 120 mg/dL High 74-99 [facility] Comment on above: Order Comment: Speci men Type: BLOOD SPECIMENOrdering Facility: [facility] Address: [address] [address] Result Comment: The [place] Diabetes Association (ADA) provides guidance for cutoff values for fasting glucose and random glucose. The ADA defines fasting as no caloric intake for at least 8 hours. Fasting plasma glucose results between 100 to 125 [...] Standards of Medical Care in Diabetes 2016, [place] [employer]. Diabetes Care. 2016.39(Suppl 1). Performed By: #### 2 4321-2 ####[facility] LABIA [id number] [place] [address] [place] Potassium [Moles/Vol] 4.5 mmol/L Normal 3.7-5.1 [facility] Comment on above: Order Comment: Oraliai men Type: BLOOD SPECIMENOrdering Facility: [facility] Address: [address] [id number] Performed By: #### 2 4321-2 ####[facility] LABIA [id number] [place] [address] [place] Sodium [Moles/Vol] 143 mmol/L Normal 136-144 [facility] Comment on above: Order Comment: Oraliai men Type: BLOOD SPECIMENOrdering Facility: [facility] Address: [address] [place], [place] [address] Performed By: #### 2 4321-2 ####[facility] LABCLIA [id number] [place] [address] [place] Urea nitrogen [Mass/Vol] 35 mg/dL High 9-24 [facility] Comment on above: Order Comment: Speci men Type: BLOOD SPECIMENOrdering Facility: [facility] Address: [address] [place] [address] Performed By: #### 2 4321-2 ####[facility] LABCLIA [id number] [place] [address] [place] CBC panel Auto (Bld)on 09-26 Erythrocyte distribution width (RBC) [Ratio] 16.8 % High 11.5-15.0 [facility] Comment on above: Order Comment: Speci men Type: BLOOD SPECIMENOrdering Facility: [facility] Address: [address] [place] [address] Performed By: #### 5 8410-2 ####[facility] LABCLIA [id number] [place] [address] [place] Hematocrit (Bld) [Volume fraction] 34.0 % Low 39.0-51.0 [facility] Comment on above: Order Comment: Speci men Type: BLOOD SPECIMENOrdering Facility: [facility] Address: [address] [place], [place] [address] Performed By: #### 5 8410-2 ####[facility] LABCLIA [id number] [place] [address] [place] Hemoglobin (Bld) [Mass/Vol] 10.6 g/dL Low 13.0-17.0 [facility] Comment on above: Order Comment: Speci men Type: BLOOD SPECIMENOrdering Facility: [facility] Address: [address] [place], [place] [address] Performed By: #### 5 8410-2 ####[facility] LABCLIA [id number] [place] [address] [place] MCH (RBC) [Entitic mass] 27.1 pg Normal 26.0-34.0 [facility] Comment on above: Order Comment: Speci men Type: BLOOD SPECIMENOrdering Facility: [facility] Address: [address] [place] [address] Performed By: #### 5 8410-2 ####[facility] [id number] [address] [place] MCHC (RBC) [Mass/Vol] 31.2 g/dL Normal 30.5-36.0 [facility] Comment on above: Order Comment: Speci men Type: BLOOD SPECIMENOrdering Facility: [facility] Address: [address] [place] [address] Performed By: #### 5 8410-2 ####[facility] [id number] [address] [place] MCV (RBC) [Entitic vol] 87.0 fL Normal 80.0-100.0 [facility] Comment on above: Order Comment: Speci men Type: BLOOD SPECIMENOrdering Facility: [facility] Address: [address] [place], [place] [address] Performed By: #### 5 8410-2 ####[facility] [id number] [place] [address] [place] Nucleated RBC (Bld) [#/Vol] 10*3/uL Normal <0.01 [facility] Comment on above: Order Comment: Speci men Type: BLOOD SPECIMENOrdering Facility: [facility] Address: [address] [place], [place] [address] Performed By: #### 5 8410-2 ####[facility] [id number] [address] [place] Platelet mean volume (Bld) [Entitic vol] 9.2 fL Normal 9.0-12.7 [facility] Comment on above: Order Comment: Speci men Type: BLOOD SPECIMENOrdering Facility: [facility] Address: [address] [place], [place] [address] Performed By: #### 5 8410-2 ####[facility] LABCLIA [id number] [place] [address] [place] Platelets (Bld) [#/Vol] 237 10*3/uL Normal 150-400 [facility] Comment on above: Order Comment: Speci men Type: BLOOD SPECIMENOrdering Facility: [facility] Address: [address] [place], [place] [address] Performed By: #### 5 8410-2 ####[facility] LABCLIA [id number] [place] [address] [place] RBC (Bld) [#/Vol] 3.91 10*6/uL Low 4.20-6.00 [facility] Comment on above: Order Comment: Speci men Type: BLOOD SPECIMENOrdering Facility: [facility] Address: [address] [place], [place] [address] Performed By: #### 5 8410-2 ####[facility] LABCLIA [id number] [place] [address] [place] WBC (Bld) [#/Vol] 44.71 10*3/uL High 3.70-11.00 [facility] Comment on above: Order Comment: Speci men Type: BLOOD SPECIMENOrdering Facility: [facility] Address: [address] [place], [place] [address] Performed By: #### 5 8410-2 ####[facility] LABCLIA [id number] [place] [address] [place] ECG COMPLETEon 09-26-2022 ECG COMPLETE Ventricular Rate : 6 0 BPM Atrial Rate : 60 BPM P-R Interval : 128 ms QRS Duration : 176 ms Q-T Interval : 510 ms QTC Calculation(Bazett) : 510 ms Calculated R [place] : -173 degrees Calculated T [place] : 23 degrees AV DUAL-PACED RHYTHM BIVENTRICULAR PACEMAKER DETECTED ABNORMAL ECG Confirmed by CHANDANA LEMUS MD ([id number]) on 10/04/2022 10:27:39 AM NAME : JAIME ANN PID : [id number] : 1940 Gender : Male Race : ORD : [id number] Procedure Date : Sep 26 2022 12:19:49 Edit Date : Oct 04 2022 10:27:47 Diagnosis: AV DUAL-PACED RHYTHM BIVENTRICULAR PACEMAKER DETECTED ABNORMAL ECG Confirmed by CHANDANA LEMUS MD ([id number]) on 10/04/2022 10:27:39 AM Test Reason : Post-OP Location : 333 : J33 [id number] Overread By : CHANDANA LEMUS MD Edited By : CHANDANA LEMUS MD Referred By : , Acquired by : TOMI CONTEH [facility] ECG COMPLETE Ventricular Rate : 6 0 BPM Atrial Rate : 60 BPM P-R Interval : 134 ms QRS Duration : 178 ms Q-T Interval : 500 ms QTC Calculation(Bazett) : 500 ms Calculated P [place] : 101 degrees Calculated R [place] : -141 degrees Calculated T [place] : 42 degrees AV DUAL-PACED RHYTHM BIVENTRICULAR PACEMAKER DETECTED ABNORMAL ECG Confirmed by DARIN BUSBY MD ([id number]) on 10/01/2022 9:29:39 AM NAME : JAIME ANN PID : [id number] : 1940 Gender : Male Race : ORD : [id number] Procedure Date : Sep 26 2022 08:07:28 Edit Date : Oct 01 2022 09:29:40 Diagnosis: AV DUAL-PACED RHYTHM BIVENTRICULAR PACEMAKER DETECTED ABNORMAL ECG Confirmed by DARIN BUSBY MD ([id number]) on 10/01/2022 9:29:39 AM Test Reason : 921 Location : 23 : J21NS J21NS Overread By : DARIN BUSBY MD Edited By : DARIN BUSBY MD Referred By : , Acquired by : [id number] Trejo [facility] SURGICAL PATHOLOGYon 05-16-2 023 CASE REPORT Normal [facility] Comment on above: Order Comment: Speci men Type: DEVICE SPECIMENOrdering Facility: [facility] Address: [address] [place] [address] Result Comment: Surg [facility] Pathology Report Case: [id number] Authorizing Provider: Lamine Katz MD Collected: 09/26/2022 09:49 AM Ordering Location: [id number] Received: 09/26/2022 02:42 PM Pathologist: Wili Clement MD Specimen: HARDWARE, old icd Performed By: #### S ####[facility] LABCLIA [id number] [address] CLINICAL HISTORY Normal [facility] Comment on above: Order Comment: Speci men Type: DEVICE SPECIMENOrdering Facility: [facility] Address: [address] [place] [address] Result Comment: Pre- op diagnosis: VT (ventricular tachycardia) ([facility]) [I47.20] NICM (nonischemic cardiomyopathy) ([facility]) [I42.8] Chronic systolic CHF (congestive heart failure) ([facility]) [I50.22] LBBB (left bundle branch block) [I44.7] Syncope and collapse [R55] Performed By: #### S ####[facility] LABCLIA [id number] [address] FINAL DIAGNOSIS Normal [facility] Comment on above: Order Comment: Speci men Type: DEVICE SPECIMENOrdering Facility: [facility] Address: [address] [place] [address] Result Comment: A. S ite not specified, hardware removal: - Generator battery with no soft tissue present (gross examination only) ERR/ADALI 09/27/22 Performed By: #### S ####[facility] LABCLIA [id number] [address] FINAL PERFORMING LAB Normal [facility] Comment on above: Order Comment: Speci men Type: DEVICE SPECIMENOrdering Facility: [facility] Address: [address] [place] [address] Result Comment: Diag nostic interpretation performed at [facility], [address] [address] CLIA# [id number] Bisque Grader: Sheldon Reagan M.D. Performed By: #### S ####[facility] LABCLIA [id number] [place] [address] [place] GROSS DESCRIPTION A. HARDWARE Normal [facility] Comment on above: Order Comment: Speci men Type: DEVICE SPECIMENOrdering Facility: [facility] Address: [address] [address] Result Comment: Rece ived in formalin labeled "ICD" is a generator battery measuring 7.2 x 5.1 x 1.3 cm with following inscription "[employer] MRI Quad MATTRESS STRIPPER-D SureScan CXOJ1OF SN [id number] DDE-DDDR [place]". No soft tissue is present. No sections were submitted. The specimen was shown to Dr. Clement. Gross examination performed at [facility], [address] [place] [address] 09/27/22 10:21 AM Performed By: #### S ####[facility] LABIA [id number] [address] [place] TYPE + SCREENon 09-26-2022 ABO A Normal [facility] Comment on above: Order Comment: Speci men Type: BLOOD SPECIMENOrdering Facility: [facility] Address: [address] [place] [address] Performed By: #### T SCR ####[facility] BLOOD BANKIA [id number] [place] [address] [place] HISTORICAL AB SCR STATUS Negative Normal [facility] Comment on above: Order Comment: Speci men Type: BLOOD SPECIMENOrdering Facility: [facility] Address: [address] [address] Performed By: #### T SCR ####[facility] BLOOD BANKIA [id number] [address] [id number] [facility] Rh Nom (Bld) Positive Normal [facility] Comment on above: Order Comment: Speci men Type: BLOOD SPECIMENOrdering Facility: [facility] Address: [address] [place] [address] Performed By: #### T SCR ####[facility] BLOOD BANKCLIA [id number] [address] TYPE AND SCREEN EXPIRATION 09/29/2022 23:59 Normal [facility] Comment on above: Order Comment: Speci men Type: BLOOD SPECIMENOrdering Facility: [facility] Address: [place] [address] Performed By: #### T SCR ####[facility] BLOOD BANKCLIA [id number] [address] [id number] [facility] LABORATORYOrdered By: SYSTEM SYSTEM on 09-21-2022 Albumin BCP dye [Mass/Vol] 3.5 G/dL Invalid Interpretation Code 3.4 - 4.8 G/dL AO ADM SS Albumin/Globulin [Mass ratio] 1.6 {ratio} Invalid Interpretation Code 1.1 - 2.5 ratio AO ADM SS ALP [Catalytic activity/Vol] 100 U/L Invalid Interpretation Code 40 - 135 U/L AO ADM SS ALT With P-5'-P [Catalytic activity/Vol] 21 U/L Invalid Interpretation Code 16 - 63 U/L AO ADM SS AST With P-5'-P [Catalytic activity/Vol] 22 U/L Invalid Interpretation Code 10 - 40 U/L AO ADM SS Bilirubin [Mass/Vol] 0.4 mg/dL Invalid Interpretation Code 0.2 - 1.0 mg/dL AO ADM SS Calcium [Mass/Vol] 9.1 mg/dL Invalid Interpretation Code 8.4 - 10.2 mg/dL AO ADM SS Chloride [Moles/Vol] 106 mmol/L Invalid Interpretation Code 98 - 107 mmol/L AO ADM SS CO2 [Moles/Vol] 30 mmol/L Invalid Interpretation Code 23 - 31 mmol/L AO ADM SS Creatinine [Mass/Vol] 1.77 mg/dL Invalid Interpretation Code 0.70 - 1.30 mg/dL AO ADM SS Electrolyte Balance 8.0 mEq/L Invalid Interpretation Code 4.0 - 15.0 mEq/L AO ADM SS Ferritin [Mass/Vol] 71.0 ng/mL Invalid Interpretation Code 26.0 - 388.0 ng/mL AO ADM SS GFR/1.73 sq M.predicted among blacks MDRD (S/P/Bld) [Vol rate/Area] 45 ml/min/1.73sqm Invalid Interpretation Code AO Chemistry S GFR/1.73 sq M.predicted among non-blacks MDRD (S/P/Bld) [Vol rate/Area] 37 ml/min/1.73sqm Invalid Interpretation Code AO Chemistry S Globulin 2.2 G/dL Invalid Interpretation Code AO ADM SS Glucose [Mass/Vol] 94 mg/dL Invalid Interpretation Code 83 - 110 mg/dL AO ADM SS Potassium [Moles/Vol] 4.8 mmol/L Invalid Interpretation Code 3.5 - 5.1 mmol/L AO ADM SS Protein [Mass/Vol] 5.7 G/dL Invalid Interpretation Code 6.4 - 8.2 G/dL AO ADM SS Sodium [Moles/Vol] 144 mmol/L Invalid Interpretation Code 136 - 145 mmol/L AO ADM SS Urea nitrogen [Mass/Vol] 37 mg/dL Invalid Interpretation Code 7 - 18 mg/dL AO ADM SS Urea nitrogen/Creatinine [Mass ratio] 21 ratio Invalid Interpretation Code 7 - 27 ratio AO ADM SS LABORATORYOrdered By: Miles Dotson on 09-21-2022 Anisocytosis Ql (Bld) 1+ *NA* (09/21/22 12:24 PM) Invalid Interpretation Code AO Workflow SS Bands 2.0 1 Invalid Interpretation Code 0.0 - 5.0 % AO Workflow SS Basophil %, Manual 0.0 1 Invalid Interpretation Code 0.0 - 2.5 % AO Workflow SS Basophil, Abs Manual 0.0 103/mcL Invalid Interpretation Code 0.0 - 0.2 10^3/mcL AO Workflow SS Eosinophil %, Manual 2.0 1 Invalid Interpretation Code 0.0 - 7.0 % AO Workflow SS Eosinophils (Bld) [#/Vol] 1.0 103/mcL Invalid Interpretation Code 0.0 - 0.4 10^3/mcL AO Workflow SS Lymphocyte %, Manual 86.0 1 Invalid Interpretation Code 10.0 - 50.0 % AO Workflow SS Lymphocyte, Abs Manual 44.7 103/mcL Invalid Interpretation Code 0.8 - 3.9 10^3/mcL AO Workflow SS Monocyte %, Manual 3.0 1 Invalid Interpretation Code 1.7 - 13.0 % AO Workflow SS Monocyte, Abs Manual 1.6 103/mcL Invalid Interpretation Code 0.2 - 1.0 10^3/mcL AO Workflow SS Neutrophil %, Manual 7.0 1 Invalid Interpretation Code 37.0 - 80.0 % AO Workflow SS Neutrophil, Abs Manual 3.7 103/mcL Invalid Interpretation Code 2.9 - 6.2 10^3/mcL AO Workflow SS Nucleated RBC 0.0 /100 WBC Invalid Interpretation Code AO Workflow SS Ovalocytes LM Ql (Bld) 1+ *NA* (09/21/22 12:24 PM) Invalid Interpretation Code AO Workflow SS Platelet Estimate Normal *NA* (09/21/22 12:24 PM) Invalid Interpretation Code AO Workflow SS Poikilocytosis LM Ql (Bld) 1+ *NA* (09/21/22 12:24 PM) Invalid Interpretation Code AO Workflow SS Smudge Cells 2+ *NA* (09/21/22 12:24 PM) Invalid Interpretation Code AO Workflow SS LABORATORYOrdered By: Justice Ramirez on 09-21-2022 Erythrocyte distribution width (RBC) [Ratio] 17.4 % Invalid Interpretation Code 11.5 - 14.5 % AO Workflow SS Hematocrit (Bld) [Volume fraction] 34.2 % Invalid Interpretation Code 42.0 - 52.0 % AO Workflow SS Hemoglobin (Bld) [Mass/Vol] 10.9 G/dL Invalid Interpretation Code 14.0 - 18.0 G/dL AO Workflow SS MCH (RBC) [Entitic mass] 26.8 pg Invalid Interpretation Code 27.0 - 31.2 pg AO Workflow SS MCHC 32.0 G/dL Invalid Interpretation Code 31.8 - 35.4 G/dL AO Workflow SS MCV (RBC) [Entitic vol] 83.8 fL Invalid Interpretation Code 80.0 - 94.0 fL AO Workflow SS Platelet mean volume (Bld) [Entitic vol] 7.4 fL Invalid Interpretation Code 7.4 - 10.4 fL AO Workflow SS Platelets (Bld) [#/Vol] 292 103/mcL Invalid Interpretation Code 130 - 400 10^3/mcL AO Workflow SS RBC (Bld) [#/Vol] 4.08 106/mcL Invalid Interpretation Code 4.04 - 6.13 10^6/mcL AO Workflow SS WBC (Bld) [#/Vol] 52.0 103/mcL Invalid Interpretation Code 4.6 - 10.8 10^3/mcL AO Workflow SS CNOVon 08-28-2022 CNOV Office Visit ([facility]ARD[facility] ) -------- JAIME ANN ([id number]) 1940 M Date Time Provider Department 08/28/22 10:30 AM LAMINE KATZ During your visit today, we recorded the following information about you: Pulse Blood pressure Weight Height 68/minute 150/82 81.6 kg 1.778 m Lamine Katz MD 08/28/2022 11:06 AM Signed EP STAFF NOTE: Please note: This note has been produced using speech recognition software and may contain errors related to that system including grammar, punctuation, spelling, gender and words and phrases that may be inappropriate Consultation initially requested by Dr. Radha Hughes for an opinion regarding management of MATTRESS STRIPPER device and my final recommendations will be communicated back to the requesting physician by way of shared medical record OR letter via fax/US mail. I have reviewed the above information and examined the patient and confirm the above with the following additions/modifications. PE: Vitals: BP 150/82 Pulse 68 Ht 177.8 cm (5' 10") Wt 81.6 kg (180 lb) SpO2 98% BMI 25.83 kg/m? Neck: no JVD. Lungs: Unlabored Heart: RRR Extremities: No peripheral edema bilaterally. DEVICE CHECK: CHB, no RV intrinsic at VVI 30 Last remote : PRESENTING EGM: -AP/BiVP BATTERY STATUS: Device reached CORRECTIONAL GUARD on 07/31/2022. Device has advisory of potential for shortened CORRECTIONAL GUARD to EOS. COUNTERS SINCE: 06/05/2022 ATRIAL ARRHYTHMIAS: There have been no atrial high rate detections since the last evaluation. VENTRICULAR ARRHYTHMIAS: There have been no ventricular detections since the last evaluation. LEAD MEASUREMENTS: Sensing is appropriate. Review of the lead impedance trends are normal. OTHER DIAGNOSTICS: RA pacing 29.7%, 98.9%, VSR pace 0.2%, VS 0.9%. FOLLOW UP: Update sent to Dr. Katz. Updated patient on CORRECTIONAL GUARD status. Continue 5 week remote transmissions and yearly in-clinic interrogations. Dwain Garcia RN. PROBLEM LIST: unexplained syncope in the setting of severe LV systolic dysfunction, with suspicion for ventricular tachyarrhythmia. During that hospitalization, his LVEF was found to be severely reduced at 19%. Coronary angiography during that stay demonstrated no evidence of flow-limiting coronary artery disease. 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 TTE : - The left ventricle is [...] 3+) mitral valve regurgitation. Regurgitant orifice area (PISA) is 0.21 cm?. - Exam was compared with the prior CC echocardiographic exam performed on 03/23/2016. MR appears to have increased. tibular fracture after slip and fall. TTE : - The left ventricle is dilated. Left ventricular systolic function is mildly decreased. EF = 45 ? 5% (visual est.) - The right ventricle is normal in size. Right ventricular systolic function is normal. - The left atrial cavity is mildly dilated. - Mild to moderate (1-2+) MR. - Mild to moderate (1-2+) AI. - Exam was compared with the prior CC echocardiographic exam performed on 07/04/2016 Ejection fraction and MR have improved. IMPRESSION: 82 y/o with DCM, LBBB and VT with associated syncope - s/p MATTRESS STRIPPER-D . He was followed by Dr. Darden - last seen 2016. He presented to [facility] care for his device . Last seen be id . Device reached CONNIE . Scheduled for generator change . presents for follow up No CV complaints. No CV events in past year. On OMT with Entresto and Coreg. Follows with Dr. Barnett at [facility] main - upcoming visits in September 2022 Dizziness with positional changes - chronic issues - consistent with orthostatic intolerance. No arrhythmia noted on device check. Improved with counter maneuvers prior to standing. LV lead is in a good mid lateral position. Paces with a RBBB, rightward axis. No underlying rhythm at VVI 30 Rate histogram appropriate. BiV pacing 99% No S/S of volume overload on PE. ast visit TTE with Dr. Barnett: - Exam indication: Evaluation of known heart failure to guide therapy - The left ventricle is normal in size. Left ventricular systolic function is mildly decreased. EF = 45 ? 5% (visual est.) - The right ventricle is normal in size. Right ventricular systolic function is low normal. - The left atrial cavity is severely dilated. - The right atrial cavity is mildly dilated. - The visualized aorta is borderline dilated with a maxi (more content not included)... Normal [facility] ICD CLINIC CHECKon 3 AV Delay Adaptive Paced Minimum (ms) 130 ms [facility] AV Delay Adaptive Rate Maximum (bpm) 130 {beats}/min [facility] AV Delay Adaptive Rate Minimum (bpm) 90 {beats}/min [facility] AV Delay Adaptive Sensed Minimum (ms) 100 ms [facility] AV Delay Adaptive Status ENABLED [facility] AV Delay Paced (ms) 100 ms [facility] AV Delay Sensed (ms) 70 ms [facility] Battery Voltage 2.69 V [facility] Jaxson LV Pacing Amplitude (volts) 2 V [facility] Jaxson LV Pacing Polarity BI [facility] Jaxson LV Pacing Pulse Width (ms) 1 ms [facility] Jaxson RA Pacing Amplitude (volts) 1.5 V [facility] Jaxson RA Pacing Polarity BI [facility] Jaxson RA Pacing Pulse Width (ms) 0.4 ms [facility] Jaxson RA Sensing Amplitude (mvolts) 0.3 mV [facility] Jaxson RA Sensing Blanking Period (ms) 150 ms [facility] Jaxson RA Sensing Polarity BI [facility] Jaxson RA Sensing Refractory Period (ms) 300 ms [facility] Jaxson RV Pacing Amplitude (volts) 2 V [facility] Jaxson RV Pacing Polarity BI [facility] Jaxson RV Pacing Pulse Width (ms) 0.4 ms [facility] Jaxson RV Sensing Amplitude (mvolts) 0.45 mV [facility] Jaxson RV Sensing Blanking Period (ms) 200 ms [facility] Jaxson RV Sensing Polarity BI [facility] Detection Configuration (Vent) 2 - Zone [facility] FastVT_Detection Interval 320 ms [facility] FastVT_Therapy Configuration 1 ATP(s) + 6 Shock(s) [facility] ICD ATAF DetectionInterval ms 350 ms [facility] ICD ATAF DetectionStatus ENABLED [facility] ICD FastVT DetectionStatus ENABLED [facility] ICD-ADLRATE_BPM 85 {beats}/min [facility] ICD-AMS EPISODES 171 {beats}/min [facility] ICD-ATP Episodes (Vent) 0 [facility] ICD-ATRIALFIBRILLATION 0 Cl [facility] ICD-Counters Cleared Date 09/27/2015 [facility] ICD-Device Lili ESTEBAN [facility] ICD-Fast Ventricular Tachycardia 1 [facility] ICD-LEADIMPEDANCEATRIA L 399 ohm [facility] ICD-Percent Pacing (Atrial) 28.48 % [facility] ICD-Percent Pacing (Vent) 98.98 % [facility] ICD-PMT Intervention ENABLED [facility] ICD-PVC Intervention ENABLED [facility] ICD-Rate Modulation Acceleration Reaction 30 s [facility] ICD-Rate Modulation Deceleration Exercise [facility] ICD-Rate Modulation Cowley 3 [facility] ICD-Rate Modulation Threshold MediumHigh [facility] ICD-Shocks Aborted (Vent) 0 [facility] EQP-JKAUST-TRERBGMAR 0 [facility] ICD-SHOCKSABORTED 0 [facility] ICD-SHOCKSDELIVEREDVEN TRICULAR 0 [facility] ICD-Ventricular Fibrillation 0 [facility] ICD-VVDELAY_MS 0 ms [facility] Lead Impedance (LV) 1235 ohm [facility] Lead Impedance (RV) 304 ohm [facility] Lead Impedance High Voltage 40 ohm [facility] Lead1 Mfg MDT [facility] Lead2 Padminig MDT [facility] Lead3 Mfg MDT [facility] Location LV [facility] Location RA [facility] Location RV [facility] Lower Rate (bpm) 60 {beats}/min [facility] Max Sensor Rate (bpm) 130 {beats}/min [facility] MDT_PROG_TACHY_ZONE_DE TECTIONS_STATUS ENABLED [facility] Model [id number] Compia MRI Q uad MATTRESS STRIPPER-D [facility] Model 4298 Attain Performa [facility] Model 5076 CapSureFix Novus [facility] Model 6947M Sprint Quattro Secure [facility] Pacing Mode DDDR [facility] Serial Number [id number] [facility] Serial Number [id number] [facility] Serial Number [id number] [facility] Serial Number [id number] [facility] Test Charge Energy 18 J [facility] Test Charge Time 5.695 [facility] Status (Vent) Enabled [facility] Thresh LV Capture Amplitude (volts) 1.625 V [facility] Thresh LV Capture Duration (ms) 0.5 ms [facility] Thresh RA Capture Amplitude (volts) 0.625 V [facility] Thresh RA Capture Duration (ms) 0.4 ms [facility] Thresh RA Sensing Amplitude (mvolts) 3 mV [facility] Thresh RV Capture Amplitude (VOLTS) 0.875 V [facility] Thresh RV Capture Duration (MS) 0.4 ms [facility] Thresh RV Sensing Amplitude (MVOLTS) 10.375 mV [facility] Tracking Rate (bpm) 130 {beats}/min [facility] VF Zone Detection Interval 320 ms [facility] VF Zone Therapy Configuration 1 ATP(s) + 6 Shock(s) [facility] No Panel Informationon 08-28 BLANK _ [facility] ICD-Fast Ventricular Tachycardia 0 [facility] Implant Date 09/27/2015 [facility] CNCOon 08-16-2022 CNCO Letter Text Normal [facility] CNPNon 08-14-2022 CNPN Telephone (EPSMN) -------- JAIME ANN ([id number]) 1940 M Date Time Provider Department 08/14/22 LAMINE KATZ EPSMN During your visit today, we recorded the following information about you: John Auguste RN 08/14/2022 1:03 PM Signed ----- Message from Lamine Katz MD sent at 08/09/2022 6:51 PM EDT ----- EPS Lab Request: Device Patient: Jaime Ann Requested by: Lamine Katz MD Requesting Physician: Lamine Katz MD Procedure Physician: Any Procedure Requested: ICD change CPT: 05170 Multi Lead Date of Last HANDP? 06-05 Indications / Dx for Procedure: CHF Procedure Time Frame: Patient's Convenience Estimated length of case: 1 HOUR Device Company: [email or web address] Patient: No Type of Bed: SHORTSTAY (4-8 HRS) Medication to be stopped(please specify medication/timeframe): No John Auguste RN 08/14/2022 1:05 PM Signed The date of 09-26-[address] Katz offered AND accepted by patients' . Noted to be scheduled for OPD with Dr. Katz on 08-28-22. Instructed that patient will also need labs AND CXR that day as well. Stated understanding. Allergies As of Date: 08/14/2022 Noted Allergy Reaction LISINOPRIL 07/04/2016 3 - Cough Date Reviewed: 06/05/2022 Reviewed by: Diana Moreno MA - Fully Assessed Reason for Visit: Schedule Surgery [1330] Cmt: MATTRESS STRIPPER - D change Prescriptions as of 08/14/2022 - carvedilol (COREG) 25 mg tablet Take 1 tablet by mouth twice daily with meals. - atorvastatin (LIPITOR) 20 mg tablet Take 1 tablet by mouth once daily. - sacubitril-valsartan (ENTRESTO) 49-51 mg tablet Take 1 tablet by mouth twice daily. - sacubitril-valsartan (ENTRESTO) 49-51 mg tablet Take 1 tablet by mouth twice daily. - OTC NUTRITIONAL SUPPLEMENT 2 tablets once daily. Nerve Renew - ZINC ACETATE ORAL Take by mouth once daily. - MULTI-VITAMIN ORAL Take by mouth. - nortriptyline (PAMELOR) 75 mg capsule Take 1 capsule by mouth twice daily. - CHOLECALCIFEROL, VITAMIN D3, (VITAMIN D3 ORAL) Take 1,000 Units by mouth once daily. - Coenzyme Q10 (CO Q-10) 400 mg cap Take 1 capsule by mouth once daily. - pactqbbixkp-K5-Jcrozwwll serr 1,500-400-100 mg-unit-mg tab Take 1 tablet by mouth once daily. Facility-Administered Medications as of 08/14/2022 - perflutren lipid microspheres 1.3 mL in NaCl (PF) 0.9% 10 mL injection (DEFINITY) - sodium chloride 0.9 % (flush) 10 mL (BD POSIFLUSH) Problem List As Of Date 08/14/2022 Noted Resolved Left bundle branch block [I44.7] 10/16/2014 Hypertension [I10] 10/16/2014 10/06/2016 Near syncope [R55] 10/16/2014 Hx of ventricular tachycardia [Z86.79] 10/16/2014 Splenic artery aneurysm (HCC) [I72.8] 02/19/2015 Cellulitis due to MRSA [L03.90, B95.62] 08/05/2015 Syncope [R55] 09/21/2015 SUMMARY 09/22/2015 Non-ischemic cardiomyopathy (HCC) [I42.8] 09/22/2015 Chronic systolic heart failure (HCC) [I50.22] 09/24/2015 Biventricular ICD (implantable cardioverter-def* 016 Renal insufficiency [N28.9] 07/19/2016 Carotid stenosis [I65.29] Malignant neoplasm of left kidney, except renal*10/06/2016 Essential hypertension [I10] 10/06/2016 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] 07/10/2017 Peripheral polyneuropathy (HCC) [G62.9] 07/10/2017 Abnormality of gait [R26.9] 07/10/2017 Disturbance of skin sensation [R20.9] 07/10/2017 Pain in both lower extremities [M79.604, M79.60*07/10/2017 Abnormal finding of blood chemistry [R79.9] 07/10/2017 Abnormal glucose [R73.09] 07/10/2017 CLL (chronic lymphocytic leukemia) (HCC) [C91.1*04/02/2019 History of prostate cancer [Z85.46] 04/02/2019 Encounter Status:Closed by JOHN AUGUSTE RN on 08/14/22 [facility] 08-07-2022 CNPN Telephone (CRUZITO) -------- ETHANJAIME MICHAELS ([id number]) 1940 M Date Time Provider Department 08/07/22 LAMINE KATZ During your visit today, we recorded the following information about you: Misyt Lindsay RN 08/07/2022 10:52 AM Signed Pt calling in to report device is has been alarming for the past week. Per 08/01/22 Remote Check: Device reached CORRECTIONAL GUARD on 07/31/2022. Device has advisory of potential for shortened CORRECTIONAL GUARD to EOS. Ananya Manzo 08/10/2022 10:27 AM Signed Device is alarming. Ananya Barnes RN 08/10/2022 12:22 PM Addendum Patient contacted and device alarm discussed. Patient concerns regarding CORRECTIONAL GUARD status and device function addressed. Change out request submitted on 08/03/[address] Katz updated. Patient schedule to see Dr. Katz and have device check done 08/28/22. Patient encouraged to contact device with any further concerns or questions Allergies As of Date: 08/07/2022 Noted Allergy Reaction LISINOPRIL 07/04/2016 3 - Cough Date Reviewed: 06/05/2022 Reviewed by: Diana Moreno MA - Fully Assessed Reason for Visit: Patient Question [0382] Cmt: Device Alarming Prescriptions as of 08/10/2022 - carvedilol (COREG) 25 mg tablet Take 1 tablet by mouth twice daily with meals. - atorvastatin (LIPITOR) 20 mg tablet Take 1 tablet by mouth once daily. - sacubitril-valsartan (ENTRESTO) 49-51 mg tablet Take 1 tablet by mouth twice daily. - sacubitril-valsartan (ENTRESTO) 49-51 mg tablet Take 1 tablet by mouth twice daily. - OTC NUTRITIONAL SUPPLEMENT 2 tablets once daily. Nerve Renew - ZINC ACETATE ORAL Take by mouth once daily. - MULTI-VITAMIN ORAL Take by mouth. - nortriptyline (PAMELOR) 75 mg capsule Take 1 capsule by mouth twice daily. - CHOLECALCIFEROL, VITAMIN D3, (VITAMIN D3 ORAL) Take 1,000 Units by mouth once daily. - Coenzyme Q10 (CO Q-10) 400 mg cap Take 1 capsule by mouth once daily. - vwhrqewvwlw-P1-Hohyokvyi serr 1,500-400-100 mg-unit-mg tab Take 1 tablet by mouth once daily. Facility-Administered Medications as of 08/10/2022 - perflutren lipid microspheres 1.3 mL in NaCl (PF) 0.9% 10 mL injection (DEFINITY) - sodium chloride 0.9 % (flush) 10 mL (BD POSIFLUSH) Problem List As Of Date 08/07/2022 Noted Resolved Left bundle branch block [I44.7] 10/16/2014 Hypertension [I10] 10/16/2014 10/06/2016 Near syncope [R55] 10/16/2014 Hx of ventricular tachycardia [Z86.79] 10/16/2014 Splenic artery aneurysm (HCC) [I72.8] 02/19/2015 Cellulitis due to MRSA [L03.90, B95.62] 08/05/2015 Syncope [R55] 09/21/2015 SUMMARY 09/22/2015 Non-ischemic cardiomyopathy (HCC) [I42.8] 09/22/2015 Chronic systolic heart failure (HCC) [I50.22] 09/24/2015 Biventricular ICD (implantable cardioverter-def* 016 Renal insufficiency [N28.9] 07/19/2016 Carotid stenosis [I65.29] Malignant neoplasm of left kidney, except renal*10/06/2016 Essential hypertension [I10] 10/06/2016 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] 07/10/2017 Peripheral polyneuropathy (HCC) [G62.9] 07/10/2017 Abnormality of gait [R26.9] 07/10/2017 Disturbance of skin sensation [R20.9] 07/10/2017 Pain in both lower extremities [M79.604, M79.60*07/10/2017 Abnormal finding of blood chemistry [R79.9] 07/10/2017 Abnormal glucose [R73.09] 07/10/2017 CLL (chronic lymphocytic leukemia) (HCC) [C91.1*04/02/2019 History of prostate cancer [Z85.46] 04/02/2019 Encounter Status:Closed by MISTY LINDSAY on 08/09/22 [facility] 06-07-2022 CNPN Telephone (MNOPRX) -------- JAIME ANN ([id number]) 1940 M Date Time Provider Department 06/07/22 LINNEA VALLEOPRX During your visit today, we recorded the following information about you: Linnea Valle [facility] 06/07/2022 9:38 AM Signed Patient's copay was $47 for a 30 day supply with his Medicare Part D insurance. Patient was approved for efra assistance through [employer] which brought the copay to $0. Shipment has been arranged, and pt will receive medication(s) on 06/08/22 via [employer]. Patient expressed understanding of the information provided today and received our contact information for any questions or concerns which may arise. Thank you, Linnea Valle [facility] [phone] Allergies As of Date: 06/07/2022 Noted Allergy Reaction LISINOPRIL 07/04/2016 3 - Cough Date Reviewed: 06/05/2022 Reviewed by: Diana Moreno MA - Fully Assessed Reason for Visit: Medication Update [4661] Cmt: Entresto 49-51mg Prescriptions as of 06/07/2022 - atorvastatin (LIPITOR) 20 mg tablet Take 1 tablet by mouth once daily. - sacubitril-valsartan (ENTRESTO) 49-51 mg tablet Take 1 tablet by mouth twice daily. - sacubitril-valsartan (ENTRESTO) 49-51 mg tablet Take 1 tablet by mouth twice daily. - OTC NUTRITIONAL SUPPLEMENT 2 tablets once daily. Nerve Renew - ZINC ACETATE ORAL Take by mouth once daily. - MULTI-VITAMIN ORAL Take by mouth. - nortriptyline (PAMELOR) 75 mg capsule Take 1 capsule by mouth twice daily. - CHOLECALCIFEROL, VITAMIN D3, (VITAMIN D3 ORAL) Take 1,000 Units by mouth once daily. - Coenzyme Q10 (CO Q-10) 400 mg cap Take 1 capsule by mouth once daily. - tlsztlraykz-Z7-Ichcblimn serr 1,500-400-100 mg-unit-mg tab Take 1 tablet by mouth once daily. Facility-Administered Medications as of 06/07/2022 - perflutren lipid microspheres 1.3 mL in NaCl (PF) 0.9% 10 mL injection (DEFINITY) - sodium chloride 0.9 % (flush) 10 mL (BD POSIFLUSH) Problem List As Of Date 06/07/2022 Noted Resolved Left bundle branch block [I44.7] 10/16/2014 Hypertension [I10] 10/16/2014 10/06/2016 Near syncope [R55] 10/16/2014 Hx of ventricular tachycardia [Z86.79] 10/16/2014 Splenic artery aneurysm (HCC) [I72.8] 02/19/2015 Cellulitis due to MRSA [L03.90, B95.62] 08/05/2015 Syncope [R55] 09/21/2015 SUMMARY 09/22/2015 Non-ischemic cardiomyopathy (HCC) [I42.8] 09/22/2015 Chronic systolic heart failure (HCC) [I50.22] 09/24/2015 Biventricular ICD (implantable cardioverter-def* 016 Renal insufficiency [N28.9] 07/19/2016 Carotid stenosis [I65.29] Malignant neoplasm of left kidney, except renal*10/06/2016 Essential hypertension [I10] 10/06/2016 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] 07/10/2017 Peripheral polyneuropathy (HCC) [G62.9] 07/10/2017 Abnormality of gait [R26.9] 07/10/2017 Disturbance of skin sensation [R20.9] 07/10/2017 Pain in both lower extremities [M79.604, M79.60*07/10/2017 Abnormal finding of blood chemistry [R79.9] 07/10/2017 Abnormal glucose [R73.09] 07/10/2017 CLL (chronic lymphocytic leukemia) (HCC) [C91.1*04/02/2019 History of prostate cancer [Z85.46] 04/02/2019 Encounter Status:Closed by LINNEA VALLE on 06/07/22 Normal [facility] CNOVon 06-05-2022 CNOV Office Visit (TREV Garrett HF ALEXI) -------- JAIME ANN ([id number]) 1940 M Date Time Provider Department 06/05/22 2:45 PM APPLE BARNETT CHF ALEXI During your visit today, we recorded the following information about you: Pulse Respiration Blood pressure Weight 68/minute 15/minute 174/82 81.6 kg Height 1.778 m Apple Barnett MD 06/05/2022 7:53 PM Signed [facility] [place] [facility] SECTION OF HEART FAILURE and CARDIAC TRANSPLANT MEDICINE OUTPATIENT VISIT DATE June 05, 2022 OUTPATIENT VISIT TYPE Established Patient PRIMARY CARE PHYSICIAN: Kenn Turcios NP [address] [place] [address] CHIEF COMPLAINT: HF f/u NURSING INTAKE (Patient?s concerns and/or recent hospitalizations/ER visits): HF Nursing Assessment: Interim Hospitalizations and/or ER visits:no Chest Pain: no Skipping or irregular heartbeats: no Shortness of breath at rest: no Shortness of breath with activity: no Cough: yes Waking up in the middle of the night gasping for air: no Lightheadedness or dizziness: no Feeling like you are going to pass out: no Actually passing out: no Poor energy level: yes with age Unintentional weight gain: no Unintentional weight loss: no Swelling in your legs,feet, abdomen: no Filling up quickly when you eat: no HISTORY OF PRESENT ILLNESS: No new issues PAST MEDICAL HISTORY Diagnosis Date Chronic lymphocytic leukemia (HCC) HTN (hypertension) Liver cyst Non-ischemic cardiomyopathy (HCC) Peripheral neuropathy Prostate cancer (HCC) s/p external radiation. no resection Splenic artery aneurysm (HCC) Subdural hematoma (HCC) summer 2015, after heart stopped and fell, s/p evacuation Ventricular tachycardia (HCC) in 1983 and 2015 PAST SURGICAL HISTORY Procedure Laterality Date MATTRESS STRIPPER ICD (ICDCRT) 09/2015 FASCT PALM W/WO Z-PLASTY TISSUE REARGMT/SKN GRFT Left 04/04/2019 Left palmar fasciectomy HAND SURGERY HX 2014 detrupens contracture PAST SURGICAL HISTORY OF Right [facility] arthroplasty PAST SURGICAL HISTORY OF percutaneous splenic artery aneurysm repair VASCULAR EMBOLIZATION OR OCCLUSION ARTERIAL RSANDI SOCIAL HISTORY Social History Tobacco Use Smoking status: Never Smokeless tobacco: Never Vaping Use Vaping Use: Never used Substance Use Topics Alcohol use: Yes Comment: rare use Drug use: No FAMILY HISTORY Problem Relation Age of Onset Stroke Mother Hypertension Mother Diabetes Mother Diabetes Father Ischemic Heart Disease Father ALLERGIES: ALLERGIES Allergen Reactions Lisinopril Cough CURRENT MEDICATIONS: carvedilol (COREG) 25 mg tabletTake 1 tablet by mouth twice daily.Disp: 180 tabletRfl: 3 sacubitril-valsartan (ENTRESTO) 49-51 mg tabletTake 1 tablet by mouth twice daily.Disp: 180 tabletRfl: 3 OTC NUTRITIONAL SUPPLEMENT2 tablets once daily. Nerve Renew Disp: Rfl: ZINC ACETATE ORALTake by mouth once daily.Disp: Rfl: MULTI-VITAMIN ORALTake by mouth.Disp: Rfl: nortriptyline (PAMELOR) 75 mg capsuleTake 1 capsule by mouth twice daily. Disp: Rfl: CHOLECALCIFEROL, VITAMIN D3, (VITAMIN D3 ORAL)Take 1,000 Units by mouth once daily. Disp: Rfl: Coenzyme Q10 (CO Q-10) 400 mg capTake 1 capsule by mouth once daily. Disp: Rfl: tkklcpsekan-I6-Bownpwwet serr 1,500-400-100 mg-unit-mg tabTake 1 tablet by mouth once daily.Disp: Rfl: REVIEW OF SYSTEMS: ROS HEART FAILURE PATIENT ENTERED DATA: No flowsheet data found. PHQ-9 06/19/2017 Score 3 PROMIS Global Health - (T-Scores - the mean of general population = 50. Five points is a clinically meaningful difference.) 06/19/2017 03/04/2019 03/04/2019 Physical T-Score 47.7 - - Mental T-Score 53.3 50.8 50.8 PHYSICAL EXAMINATION: BP 174/82 (BP Site: Right Arm, BP Position: Sitting, BP Cuff Size: Regular Adult) Pulse 68 Resp 15 Ht 177.8 cm (5' 10") Wt 81.6 kg (180 lb) SpO2 98% BMI 25.83 kg/m? which is 2 lbs less than last visit. General: no distress, obese, accompanied by family Skin: No clubbing, no cyanosis. Eyes: Anicteric sclerae Neck: Neck veins are not distended, no carotid bruits Lungs: Chest clear to auscultation Heart: Rhythm: regular rate and rhythm, Rate: normal, no murmur Abdomen: No HSM, normal bowel sounds Extremities: No edema Labs on 10/26/2019: Na 140, K 4.0, BUN 18, Cr 1.1, WBC 32.6, hgb 12.4, plt 276 Component Latest Ref Rng AND Units 07/29/2020 Protein, Total 6.3 - 8.0 g/dL 5.8 (L) Albumin 3.9 - 4.9 g/dL 4.1 Calcium 8.5 - 10.2 mg/dL 9.4 Bilirubin, Total 0.2 - 1.3 mg/dL 0.3 Alkaline Phosphatase 38 - 113 U/L 88 AST 14 - 40 U/L 27 Glucose 74 - 99 mg/dL 96 BUN 9 - 24 mg/dL 36 (H) Creatinine 0.73 - 1.22 mg/dL 1.38 (H) Sodium 136 - 144 mmol/L 142 Potassium 3.7 - 5.1 mmol/L 4.7 Chloride 97 - 105 mmol/L 106 (H) CO2 22 - 30 mmol/L 28 Anion Gap 9 - 18 mmol/L (more content not included)... Normal [facility] CLINIC CHECKon 3 AV Delay Adaptive Paced Minimum (ms) 130 ms [facility] AV Delay Adaptive Rate Maximum (bpm) 130 {beats}/min [facility] AV Delay Adaptive Rate Minimum (bpm) 90 {beats}/min [facility] AV Delay Adaptive Sensed Minimum (ms) 100 ms [facility] AV Delay Adaptive Status ENABLED [facility] AV Delay Paced (ms) 100 ms [facility] AV Delay Sensed (ms) 70 ms [facility] Battery Voltage 2.77 V [facility] Jaxson LV Pacing Amplitude (volts) 2 V [facility] Jaxson LV Pacing Polarity BI [facility] Jaxson LV Pacing Pulse Width (ms) 1 ms [facility] Jaxson RA Pacing Amplitude (volts) 1.5 V [facility] Jaxson RA Pacing Polarity BI [facility] Jaxson RA Pacing Pulse Width (ms) 0.4 ms [facility] Jaxson RA Sensing Amplitude (mvolts) 0.3 mV [facility] Jaxson RA Sensing Blanking Period (ms) 150 ms [facility] Jaxson RA Sensing Polarity BI [facility] Jaxson RA Sensing Refractory Period (ms) 300 ms [facility] Jaxson RV Pacing Amplitude (volts) 2 V [facility] Jaxson RV Pacing Polarity BI [facility] Jaxson RV Pacing Pulse Width (ms) 0.4 ms [facility] Jaxson RV Sensing Amplitude (mvolts) 0.45 mV [facility] Jaxson RV Sensing Blanking Period (ms) 200 ms [facility] Jaxson RV Sensing Polarity BI [facility] Detection Configuration (Vent) 2 - Zone [facility] FastVT_Detection Interval 320 ms [facility] FastVT_Therapy Configuration 1 ATP(s) + 6 Shock(s) [facility] ICD ATAF DetectionInterval ms 350 ms [facility] ICD ATAF DetectionStatus ENABLED [facility] ICD FastVT DetectionStatus ENABLED [facility] ICD-ADLRATE_BPM 85 {beats}/min [facility] ICD-AMS EPISODES 171 {beats}/min [facility] ICD-ATP Episodes (Vent) 0 [facility] ICD-ATRIALFIBRILLATION 0 Cl [facility] ICD-Counters Cleared Date 09/27/2015 [facility] ICD-Device Mfg MDT [facility] ICD-LEADIMPEDANCEATRIA L 399 ohm [facility] ICD-Percent Pacing (Atrial) 24.9 % [facility] ICD-Percent Pacing (Vent) 99.04 % [facility] ICD-PMT Intervention ENABLED [facility] ICD-PVC Intervention ENABLED [facility] ICD-Rate Modulation Acceleration Reaction 30 s [facility] ICD-Rate Modulation Deceleration Exercise [facility] ICD-Rate Modulation Cowley 3 [facility] ICD-Rate Modulation Threshold MediumHigh [facility] ICD-Rhythm sinus arrhythmia wit h CHB [facility] ICD-Shocks Aborted (Vent) 0 [facility] [id number] 0 [facility] ICD-SHOCKSABORTED 0 [facility] ICD-SHOCKSDELIVEREDVEN TRICULAR 0 [facility] ICD-Ventricular Fibrillation 0 [facility] ICD-VVDELAY_MS 0 ms [facility] Lead Impedance (LV) 1140 ohm [facility] Lead Impedance (RV) 323 ohm [facility] Lead Impedance High Voltage 40 ohm [facility] Lead1 Mfg MDT [facility] Lead2 Mfg MDT [facility] Lead3 Mfg MDT [facility] Location LV [facility] Location RA [facility] Location RV [facility] Lower Rate (bpm) 60 {beats}/min [facility] Max Sensor Rate (bpm) 130 {beats}/min [facility] MDT_PROG_TACHY_ZONE_DE TECTIONS_STATUS ENABLED [facility] Model [id number] Compia MRI Q uad MATTRESS STRIPPER-D [facility] Model 4298 Attain Performa [facility] Model 5076 CapSureFix Novus [facility] Model 6947M Sprint Quattro Secure [facility] Pacemaker Dependent? YES [facility] Pacing Mode DDDR [facility] Serial Number [id number] [facility] Serial Number [id number] [facility] Serial Number [id number] [facility] Serial Number [id number] [facility] Test Charge Energy 18 J [facility] Test Charge Time 5.345 [facility] Therapy Status (Vent) Enabled [facility] Thresh LV Capture Amplitude (volts) 1.625 V [facility] Thresh LV Capture Duration (ms) 0.5 ms [facility] Thresh RA Capture Amplitude (volts) 0.625 V [facility] Thresh RA Capture Duration (ms) 0.4 ms [facility] Thresh RA Sensing Amplitude (mvolts) 3.5 mV [facility] Thresh RV Capture Amplitude (VOLTS) 0.875 V [facility] Thresh RV Capture Duration (MS) 0.4 ms [facility] Thresh RV Sensing Amplitude (MVOLTS) 8.125 mV [facility] Tracking Rate (bpm) 130 {beats}/min [facility] VF Zone Detection Interval 320 ms [facility] VF Zone Therapy Configuration 1 ATP(s) + 6 Shock(s) [facility] No Panel Informationon 06-05 BLANK _ [facility] ICD-Fast Ventricular Tachycardia 0 [facility] Implant Date 09/27/2015 [facility] ICD REMOTE CHECKon AV Delay Adaptive Paced Minimum (ms) 130 ms [facility] AV Delay Adaptive Rate Maximum (bpm) 130 {beats}/min [facility] AV Delay Adaptive Rate Minimum (bpm) 90 {beats}/min [facility] AV Delay Adaptive Sensed Minimum (ms) 100 ms [facility] AV Delay Adaptive Status ENABLED [facility] AV Delay Paced (ms) 100 ms [facility] AV Delay Sensed (ms) 70 ms [facility] Battery Voltage 2.77 V [facility] Jaxson LV Pacing Amplitude (volts) 2 V [facility] Jaxson LV Pacing Polarity BI [facility] Jaxson LV Pacing Pulse Width (ms) 1 ms [facility] Jaxson RA Pacing Amplitude (volts) 1.5 V [facility] Jaxson RA Pacing Polarity BI [facility] Jaxson RA Pacing Pulse Width (ms) 0.4 ms [facility] Jaxson RA Sensing Amplitude (mvolts) 0.3 mV [facility] Jaxson RA Sensing Blanking Period (ms) 150 ms [facility] Jaxson RA Sensing Polarity BI [facility] Jaxson RA Sensing Refractory Period (ms) 300 ms [facility] Jaxson RV Pacing Amplitude (volts) 2 V [facility] Jaxson RV Pacing Polarity BI [facility] Jaxson RV Pacing Pulse Width (ms) 0.4 ms [facility] Jaxson RV Sensing Amplitude (mvolts) 0.45 mV [facility] Jaxson RV Sensing Blanking Period (ms) 200 ms [facility] Jaxson RV Sensing Polarity BI [facility] Detection Configuration (Vent) 2 - Zone [facility] FastVT_Detection Interval 320 ms [facility] FastVT_Therapy Configuration 1 ATP(s) + 6 Shock(s) [facility] ICD ATAF DetectionInterval ms 350 ms [facility] ICD ATAF DetectionStatus ENABLED [facility] ICD FastVT DetectionStatus ENABLED [facility] ICD-ADLRATE_BPM 85 {beats}/min [facility] ICD-AMS EPISODES 171 {beats}/min [facility] ICD-ATP Episodes (Vent) 0 [facility] ICD-ATRIALFIBRILLATION 0 Cl [facility] ICD-Counters Cleared Date 09/27/2015 [facility] ICD-Device Mfg MDT [facility] ICD-LEADIMPEDANCEATRIA L 399 ohm [facility] ICD-Percent Pacing (Atrial) 25.23 % [facility] ICD-Percent Pacing (Vent) 98.84 % [facility] ICD-PMT Intervention ENABLED [facility] ICD-PVC Intervention ENABLED [facility] ICD-Rate Modulation Acceleration Reaction 30 s [facility] ICD-Rate Modulation Deceleration Exercise [facility] ICD-Rate Modulation Cowley 3 [facility] ICD-Rate Modulation Threshold MediumHigh [facility] ICD-Shocks Aborted (Vent) 0 [facility] [id number] 0 [facility] ICD-SHOCKSABORTED 0 [facility] ICD-SHOCKSDELIVEREDVEN TRICULAR 0 [facility] ICD-Ventricular Fibrillation 0 [facility] ICD-VVDELAY_MS 0 ms [facility] Lead Impedance (LV) 1235 ohm [facility] Lead Impedance (RV) 266 ohm [facility] Lead Impedance High Voltage 37 ohm [facility] Lead1 Mfg MDT [facility] Lead2 Mfg MDT [facility] Lead3 Mfg MDT [facility] Location LV [facility] Location RA [facility] Location RV [facility] Lower Rate (bpm) 60 {beats}/min [facility] Max Sensor Rate (bpm) 130 {beats}/min [facility] MDT_PROG_TACHY_ZONE_DE TECTIONS_STATUS ENABLED [facility] Model [id number] Compia MRI Q uad MATTRESS STRIPPER-D [facility] Model 4298 Attain Performa [facility] Model 5076 CapSureFix Novus [facility] Model 6947M Sprint Quattro Secure [facility] Pacing Mode DDDR [facility] Serial Number [id number] [facility] Serial Number [id number] [facility] Serial Number [id number] [facility] Serial Number [id number] [facility] Test Charge Energy 18 J [facility] Test Charge Time 5.345 [facility] Therapy Status (Vent) Enabled [facility] Thresh LV Capture Amplitude (volts) 1.625 V [facility] Thresh LV Capture Duration (ms) 0.5 ms [facility] Thresh RA Capture Amplitude (volts) 0.625 V [facility] Thresh RA Capture Duration (ms) 0.4 ms [facility] Thresh RA Sensing Amplitude (mvolts) 3.75 mV [facility] Thresh RV Capture Amplitude (VOLTS) 0.875 V [facility] Thresh RV Capture Duration (MS) 0.4 ms [facility] Thresh RV Sensing Amplitude (MVOLTS) 8.125 mV [facility] Tracking Rate (bpm) 130 {beats}/min [facility] VF Zone Detection Interval 320 ms [facility] VF Zone Therapy Configuration 1 ATP(s) + 6 Shock(s) [facility] No Panel Informationon 05-24 BLANK _ [facility] ICD-ATRIALTACHYCARDIA 0 [facility] ICD-Fast Ventricular Tachycardia 0 [facility] Implant Date 09/27/2015 [facility] ICD REMOTE CHECKon 2 AV Delay Adaptive Paced Minimum (ms) 130 ms [facility] AV Delay Adaptive Rate Maximum (bpm) 130 {beats}/min [facility] AV Delay Adaptive Rate Minimum (bpm) 90 {beats}/min [facility] AV Delay Adaptive Sensed Minimum (ms) 100 ms [facility] AV Delay Adaptive Status ENABLED [facility] AV Delay Paced (ms) 100 ms [facility] AV Delay Sensed (ms) 70 ms [facility] Battery Voltage 2.79 V [facility] Jaxson LV Pacing Amplitude (volts) 2 V [facility] Jaxson LV Pacing Polarity BI [facility] Jaxson LV Pacing Pulse Width (ms) 1 ms [facility] Jaxson RA Pacing Amplitude (volts) 1.5 V [facility] Jaxson RA Pacing Polarity BI [facility] Jaxson RA Pacing Pulse Width (ms) 0.4 ms [facility] Jaxson RA Sensing Amplitude (mvolts) 0.3 mV [facility] Jaxson RA Sensing Blanking Period (ms) 150 ms [facility] Jaxson RA Sensing Polarity BI [facility] Jaxson RA Sensing Refractory Period (ms) 300 ms [facility] Jaxson RV Pacing Amplitude (volts) 2 V [facility] Jaxson RV Pacing Polarity BI [facility] Jaxson RV Pacing Pulse Width (ms) 0.4 ms [facility] Jaxson RV Sensing Amplitude (mvolts) 0.45 mV [facility] Jaxson RV Sensing Blanking Period (ms) 200 ms [facility] Jaxson RV Sensing Polarity BI [facility] Detection Configuration (Vent) 2 - Zone [facility] FastVT_Detection Interval 320 ms [facility] FastVT_Therapy Configuration 1 ATP(s) + 6 Shock(s) [facility] ICD ATAF DetectionInterval ms 350 ms [facility] ICD ATAF DetectionStatus ENABLED [facility] ICD FastVT DetectionStatus ENABLED [facility] ICD-ADLRATE_BPM 85 {beats}/min [facility] ICD-AMS EPISODES 171 {beats}/min [facility] ICD-ATP Episodes (Vent) 0 [facility] ICD-ATRIALFIBRILLATION 0 Cl [facility] ICD-Counters Cleared Date 09/27/2015 [facility] ICD-Device Mfg MDT [facility] ICD-LEADIMPEDANCEATRIA L 380 ohm [facility] ICD-Percent Pacing (Atrial) 25.08 % [facility] ICD-Percent Pacing (Vent) 99.12 % [facility] ICD-PMT Intervention ENABLED [facility] ICD-PVC Intervention ENABLED [facility] ICD-Rate Modulation Acceleration Reaction 30 s [facility] ICD-Rate Modulation Deceleration Exercise [facility] ICD-Rate Modulation Cowley 3 [facility] ICD-Rate Modulation Threshold MediumHigh [facility] ICD-Shocks Aborted (Vent) 0 [facility] [id number] 0 [facility] ICD-SHOCKSABORTED 0 [facility] ICD-SHOCKSDELIVEREDVEN TRICULAR 0 [facility] ICD-Ventricular Fibrillation 0 [facility] ICD-VVDELAY_MS 0 ms [facility] Lead Impedance (LV) 1273 ohm [facility] Lead Impedance (RV) 304 ohm [facility] Lead Impedance High Voltage 39 ohm [facility] Lead1 Mfg MDT [facility] Lead2 Mfg MDT [facility] Lead3 Mfg MDT [facility] Location LV [facility] Location RA [facility] Location RV [facility] Lower Rate (bpm) 60 {beats}/min [facility] Max Sensor Rate (bpm) 130 {beats}/min [facility] MDT_PROG_TACHY_ZONE_DE TECTIONS_STATUS ENABLED [facility] Model [id number] Compia MRI Q uad MATTRESS STRIPPER-D [facility] Model 4298 Attain Performa [facility] Model 5076 CapSureFix Novus [facility] Model 6947M Sprint Quattro Secure [facility] Pacing Mode DDDR [facility] Serial Number [id number] [facility] Serial Number [id number] [facility] Serial Number [id number] [facility] Serial Number [id number] [facility] Test Charge Energy 18 J [facility] Test Charge Time 4.904 [facility] Therapy Status (Vent) Enabled [facility] Thresh LV Capture Amplitude (volts) 1.625 V [facility] Thresh LV Capture Duration (ms) 0.5 ms [facility] Thresh RA Capture Amplitude (volts) 0.625 V [facility] Thresh RA Capture Duration (ms) 0.4 ms [facility] Thresh RA Sensing Amplitude (mvolts) 3.375 mV [facility] Thresh RV Capture Amplitude (VOLTS) 1 V [facility] Thresh RV Capture Duration (MS) 0.4 ms [facility] Thresh RV Sensing Amplitude (MVOLTS) 8.125 mV [facility] Tracking Rate (bpm) 130 {beats}/min [facility] VF Zone Detection Interval 320 ms [facility] VF Zone Therapy Configuration 1 ATP(s) + 6 Shock(s) [facility] No Panel Informationon 04-19 BLANK _ [facility] ICD-ATRIALTACHYCARDIA 0 [facility] ICD-Fast Ventricular Tachycardia 0 [facility] Implant Date 09/27/2015 [facility] ICD REMOTE CHECKon 2 AV Delay Adaptive Paced Minimum (ms) 130 ms [facility] AV Delay Adaptive Rate Maximum (bpm) 130 {beats}/min [facility] AV Delay Adaptive Rate Minimum (bpm) 90 {beats}/min [facility] AV Delay Adaptive Sensed Minimum (ms) 100 ms [facility] AV Delay Adaptive Status ENABLED [facility] AV Delay Paced (ms) 100 ms [facility] AV Delay Sensed (ms) 70 ms [facility] Battery Voltage 2.81 V [facility] Jaxson LV Pacing Amplitude (volts) 2 V [facility] Jaxson LV Pacing Polarity BI [facility] Jaxson LV Pacing Pulse Width (ms) 1 ms [facility] Jaxson RA Pacing Amplitude (volts) 1.5 V [facility] Jaxson RA Pacing Polarity BI [facility] Jaxson RA Pacing Pulse Width (ms) 0.4 ms [facility] Jaxson RA Sensing Amplitude (mvolts) 0.3 mV [facility] Jaxson RA Sensing Blanking Period (ms) 150 ms [facility] Jaxson RA Sensing Polarity BI [facility] Jaxson RA Sensing Refractory Period (ms) 300 ms [facility] Jaxson RV Pacing Amplitude (volts) 2.25 V [facility] Jaxson RV Pacing Polarity BI [facility] Jaxson RV Pacing Pulse Width (ms) 0.4 ms [facility] Jaxson RV Sensing Amplitude (mvolts) 0.45 mV [facility] Jaxson RV Sensing Blanking Period (ms) 200 ms [facility] Jaxson RV Sensing Polarity BI [facility] Detection Configuration (Vent) 2 - Zone [facility] FastVT_Detection Interval 320 ms [facility] FastVT_Therapy Configuration 1 ATP(s) + 6 Shock(s) [facility] ICD ATAF DetectionInterval ms 350 ms [facility] ICD ATAF DetectionStatus ENABLED [facility] ICD FastVT DetectionStatus ENABLED [facility] ICD-ADLRATE_BPM 85 {beats}/min [facility] ICD-AMS EPISODES 171 {beats}/min [facility] ICD-ATP Episodes (Vent) 0 [facility] ICD-ATRIALFIBRILLATION 0 Cl [facility] ICD-Counters Cleared Date 09/27/2015 [facility] ICD-Device Lili ESTEBAN [facility] ICD-LEADIMPEDANCEATRIA L 380 ohm [facility] ICD-Percent Pacing (Atrial) 28.95 % [facility] ICD-Percent Pacing (Vent) 99.2 % [facility] ICD-PMT Intervention ENABLED [facility] ICD-PVC Intervention ENABLED [facility] ICD-Rate Modulation Acceleration Reaction 30 s [facility] ICD-Rate Modulation Deceleration Exercise [facility] ICD-Rate Modulation Cowley 3 [facility] ICD-Rate Modulation Threshold MediumHigh [facility] ICD-Shocks Aborted (Vent) 0 [facility] [id number] 0 [facility] ICD-SHOCKSABORTED 0 [facility] ICD-SHOCKSDELIVEREDVEN TRICULAR 0 [facility] ICD-Ventricular Fibrillation 0 [facility] ICD-VVDELAY_MS 0 ms [facility] Lead Impedance (LV) 1349 ohm [facility] Lead Impedance (RV) 266 ohm [facility] Lead Impedance High Voltage 39 ohm [facility] Lead1 Mfg MDT [facility] Lead2 Mfg MDT [facility] Lead3 Mfg MDT [facility] Location LV [facility] Location RA [facility] Location RV [facility] Lower Rate (bpm) 60 {beats}/min [facility] Max Sensor Rate (bpm) 130 {beats}/min [facility] EULALIA_PROG_TACHY_ZONE_DE TECTIONS_STATUS ENABLED [facility] Model [id number] Compia MRI Q uad MATTRESS STRIPPER-D [facility] Model 4298 Attain Performa [facility] Model 5076 [employer]Sure[employer] [facility] Model 6947M Sprint Quattro Secure [facility] Pacing Mode DDDR [facility] Serial Number [id number] [facility] Serial Number [id number] [facility] Serial Number [id number] [facility] Serial Number [id number] [facility] Test Charge Energy 18 J [facility] Test Charge Time 4.904 [facility] Therapy Status (Vent) Enabled [facility] Thresh LV Capture Amplitude (volts) 1.625 V [facility] Thresh LV Capture Duration (ms) 0.5 ms [facility] Thresh RA Capture Amplitude (volts) 0.625 V [facility] Thresh RA Capture Duration (ms) 0.4 ms [facility] Thresh RA Sensing Amplitude (mvolts) 3.375 mV [facility] Thresh RV Capture Amplitude (VOLTS) 1 V [facility] Thresh RV Capture Duration (MS) 0.4 ms [facility] Thresh RV Sensing Amplitude (MVOLTS) 8.125 mV [facility] Tracking Rate (bpm) 130 {beats}/min [facility] VF Zone Detection Interval 320 ms [facility] VF Zone Therapy Configuration 1 ATP(s) + 6 Shock(s) [facility] No Panel Informationon 03-08 BLANK _ [facility] ICD-ATRIALTACHYCARDIA 0 [facility] ICD-Fast Ventricular Tachycardia 0 [facility] Implant Date 09/27/2015 [facility] Blood platelet adequacy dete ction by light microscopyOrdered By: Ean Bush on 03-01-2022 Platelets LM Ql (Bld) ADEQUATE ADEQ [facility] No Panel InformationOrdered By: Ean Bush on 03-01-2022 Atypical Lymphocytes 2+ % [facility] RBC morphologyOrdered By: Sarah Bush on 03-01-2022 RBC morphology finding Nom (Bld) NORM C+C NORMAL NORM C&C [facility] RBC morphology finding Nom ( Bld)Ordered By: Ean Bush on 03-01-2022 Red Blood Cell Morphology NORM C+C NORMAL NORM C&C [facility] Smudge cell detectionOrdered By: Ean Bush on 03-01-2022 Smudge cells LM Ql (Bld) 2+ [facility] LABORATORYOrdered By: Justice Ramirez on 02-20-2022 Albumin BCP dye [Mass/Vol] 3.4 G/dL Invalid Interpretation Code 3.4 - 4.8 G/dL AO ADM SS Albumin/Globulin [Mass ratio] 1.7 {ratio} Invalid Interpretation Code 1.1 - 2.5 ratio AO ADM SS ALP [Catalytic activity/Vol] 99 U/L Invalid Interpretation Code 40 - 135 U/L AO ADM SS ALT With P-5'-P [Catalytic activity/Vol] 24 U/L Invalid Interpretation Code 16 - 63 U/L AO ADM SS AST With P-5'-P [Catalytic activity/Vol] 20 U/L Invalid Interpretation Code 10 - 40 U/L AO ADM SS Bilirubin [Mass/Vol] 0.3 mg/dL Invalid Interpretation Code 0.2 - 1.0 mg/dL AO ADM SS Calcium [Mass/Vol] 8.6 mg/dL Invalid Interpretation Code 8.4 - 10.2 mg/dL AO ADM SS Chloride [Moles/Vol] 106 mmol/L Invalid Interpretation Code 98 - 107 mmol/L AO ADM SS Cholesterol [Mass/Vol] 157 mg/dL Invalid Interpretation Code 0 - 200 mg/dL AO ADM SS Cholesterol in HDL [Mass/Vol] 48 mg/dL Invalid Interpretation Code 40 - 60 mg/dL AO ADM SS Cholesterol in LDL [Mass/Vol] 91 mg/dL Invalid Interpretation Code 0 - 130 mg/dL AO ADM SS CO2 [Moles/Vol] 29 mmol/L Invalid Interpretation Code 23 - 31 mmol/L AO ADM SS Creatinine [Mass/Vol] 1.62 mg/dL Invalid Interpretation Code 0.70 - 1.30 mg/dL AO ADM SS Electrolyte Balance 8.0 mEq/L Invalid Interpretation Code 4.0 - 15.0 mEq/L AO ADM SS Globulin 2.0 G/dL Invalid Interpretation Code AO ADM SS Glucose [Mass/Vol] 121 mg/dL Invalid Interpretation Code 83 - 110 mg/dL AO ADM SS HbA1c (Bld) [Mass fraction] 6.2 % Invalid Interpretation Code 4.3 - 6.4 % AO ADM SS Potassium [Moles/Vol] 4.1 mmol/L Invalid Interpretation Code 3.5 - 5.1 mmol/L AO ADM SS Protein [Mass/Vol] 5.4 G/dL Invalid Interpretation Code 6.4 - 8.2 G/dL AO ADM SS Sodium [Moles/Vol] 143 mmol/L Invalid Interpretation Code 136 - 145 mmol/L AO ADM SS Triglyceride [Mass/Vol] 89 mg/dL Invalid Interpretation Code 0 - 150 mg/dL AO ADM SS Urea nitrogen [Mass/Vol] 34 mg/dL Invalid Interpretation Code 7 - 18 mg/dL AO ADM SS Urea nitrogen/Creatinine [Mass ratio] 21 ratio Invalid Interpretation Code 7 - 27 ratio AO ADM SS LABORATORYOrdered By: Irma Otto on 02-20-2022 Anisocytosis Ql (Bld) 1+ *NA* (02/20/22 7:18 AM) Invalid Interpretation Code AO Workflow SS Basophil %, Manual 0.0 1 Invalid Interpretation Code 0.0 - 2.5 % AO Workflow SS Basophil, Abs Manual 0.0 103/mcL Invalid Interpretation Code 0.0 - 0.2 10^3/mcL AO Workflow SS Eosinophil %, Manual 1.0 1 Invalid Interpretation Code 0.0 - 7.0 % AO Workflow SS Eosinophils (Bld) [#/Vol] 0.5 103/mcL Invalid Interpretation Code 0.0 - 0.4 10^3/mcL AO Workflow SS Erythrocyte distribution width (RBC) [Ratio] 17.0 % Invalid Interpretation Code 11.5 - 14.5 % AO Workflow SS Hematocrit (Bld) [Volume fraction] 33.3 % Invalid Interpretation Code 42.0 - 52.0 % AO Workflow SS Hemoglobin (Bld) [Mass/Vol] 10.8 G/dL Invalid Interpretation Code 14.0 - 18.0 G/dL AO Workflow SS Lymphocyte %, Manual 61.0 1 Invalid Interpretation Code 10.0 - 50.0 % AO Workflow SS Lymphocyte, Abs Manual 27.4 103/mcL Invalid Interpretation Code 0.8 - 3.9 10^3/mcL AO Workflow SS MCH (RBC) [Entitic mass] 28.1 pg Invalid Interpretation Code 27.0 - 31.2 pg AO Workflow SS MCHC 32.4 G/dL Invalid Interpretation Code 31.8 - 35.4 G/dL AO Workflow SS MCV (RBC) [Entitic vol] 86.6 fL Invalid Interpretation Code 80.0 - 94.0 fL AO Workflow SS Monocyte %, Manual 5.0 1 Invalid Interpretation Code 1.7 - 13.0 % AO Workflow SS Monocyte, Abs Manual 2.2 103/mcL Invalid Interpretation Code 0.2 - 1.0 10^3/mcL AO Workflow SS Neutrophil %, Manual 19.0 1 Invalid Interpretation Code 37.0 - 80.0 % AO Workflow SS Neutrophil, Abs Manual 8.5 103/mcL Invalid Interpretation Code 2.9 - 6.2 10^3/mcL AO Workflow SS Nucleated RBC 0.0 /100 WBC Invalid Interpretation Code AO Workflow SS Ovalocytes LM Ql (Bld) 1+ *NA* (02/20/22 7:18 AM) Invalid Interpretation Code AO Workflow SS Platelet Estimate Normal *NA* (02/20/22 7:18 AM) Invalid Interpretation Code AO Workflow SS Platelet mean volume (Bld) [Entitic vol] 7.8 fL Invalid Interpretation Code 7.4 - 10.4 fL AO Workflow SS Platelets (Bld) [#/Vol] 230 103/mcL Invalid Interpretation Code 130 - 400 10^3/mcL AO Workflow SS RBC (Bld) [#/Vol] 3.84 106/mcL Invalid Interpretation Code 4.04 - 6.13 10^6/mcL AO Workflow SS Smudge Cells 2+ *NA* (02/20/22 7:18 AM) Invalid Interpretation Code AO Workflow SS Tear Cell 1+ *NA* (02/20/22 7:18 AM) Invalid Interpretation Code AO Workflow SS Variant lymphocytes/100 WBC (Bld) 14.0 % Invalid Interpretation Code 0.0 - 5.0 % AO Workflow SS WBC (Bld) [#/Vol] 44.9 103/mcL Invalid Interpretation Code 4.6 - 10.8 10^3/mcL AO Workflow SS LABORATORYOrdered By: SYSTEM SYSTEM on 02-20-2022 GFR 50 ml/min/1.73sqm Invalid Interpretation Code AO Chemistry S GFR Non- 41 ml/min/1.73sqm Invalid Interpretation Code AO Chemistry S ICD REMOTE CHECKon 2 AV Delay Adaptive Paced Minimum (ms) 130 ms [facility] AV Delay Adaptive Rate Maximum (bpm) 130 {beats}/min [facility] AV Delay Adaptive Rate Minimum (bpm) 90 {beats}/min [facility] AV Delay Adaptive Sensed Minimum (ms) 100 ms [facility] AV Delay Adaptive Status ENABLED [facility] AV Delay Paced (ms) 100 ms [facility] AV Delay Sensed (ms) 70 ms [facility] Battery Voltage 2.83 V [facility] Jaxson LV Pacing Amplitude (volts) 2 V [facility] Jaxson LV Pacing Polarity BI [facility] Jaxson LV Pacing Pulse Width (ms) 1 ms [facility] Jaxson RA Pacing Amplitude (volts) 1.5 V [facility] Jaxson RA Pacing Polarity BI [facility] Jaxson RA Pacing Pulse Width (ms) 0.4 ms [facility] Jaxson RA Sensing Amplitude (mvolts) 0.3 mV [facility] Jaxson RA Sensing Blanking Period (ms) 150 ms [facility] Jaxson RA Sensing Polarity BI [facility] Jaxson RA Sensing Refractory Period (ms) 300 ms [facility] Jaxson RV Pacing Amplitude (volts) 2 V [facility] Jaxson RV Pacing Polarity BI [facility] Jaxson RV Pacing Pulse Width (ms) 0.4 ms [facility] Jaxson RV Sensing Amplitude (mvolts) 0.45 mV [facility] Jaxson RV Sensing Blanking Period (ms) 200 ms [facility] Jaxson RV Sensing Polarity BI [facility] Detection Configuration (Vent) 2 - Zone [facility] FastVT_Detection Interval 320 ms [facility] FastVT_Therapy Configuration 1 ATP(s) + 6 Shock(s) [facility] ICD ATAF DetectionInterval ms 350 ms [facility] ICD ATAF DetectionStatus ENABLED [facility] ICD FastVT DetectionStatus ENABLED [facility] ICD-ADLRATE_BPM 85 {beats}/min [facility] ICD-AMS EPISODES 171 {beats}/min [facility] ICD-ATP Episodes (Vent) 0 [facility] ICD-ATRIALFIBRILLATION 0 Cl [facility] ICD-Counters Cleared Date 09/27/2015 [facility] ICD-Device Mfg MDT [facility] ICD-LEADIMPEDANCEATRIA L 399 ohm [facility] ICD-Percent Pacing (Atrial) 23.21 % [facility] ICD-Percent Pacing (Vent) 99.16 % [facility] ICD-PMT Intervention ENABLED [facility] ICD-PVC Intervention ENABLED [facility] ICD-Rate Modulation Acceleration Reaction 30 s [facility] ICD-Rate Modulation Deceleration Exercise [facility] ICD-Rate Modulation Cowley 3 [facility] ICD-Rate Modulation Threshold MediumHigh [facility] ICD-Shocks Aborted (Vent) 0 [facility] [id number] 0 [facility] ICD-SHOCKSABORTED 0 [facility] ICD-SHOCKSDELIVEREDVEN TRICULAR 0 [facility] ICD-Ventricular Fibrillation 0 [facility] ICD-VVDELAY_MS 0 ms [facility] Lead Impedance (LV) 1425 ohm [facility] Lead Impedance (RV) 304 ohm [facility] Lead Impedance High Voltage 39 ohm [facility] Lead1 Mfg MDT [facility] Lead2 Mfg MDT [facility] Lead3 Mfg MDT [facility] Location LV [facility] Location RA [facility] Location RV [facility] Lower Rate (bpm) 60 {beats}/min [facility] Max Sensor Rate (bpm) 130 {beats}/min [facility] MDT_PROG_TACHY_ZONE_DE TECTIONS_STATUS ENABLED [facility] Model [id number] Compia MRI Q uad MATTRESS STRIPPER-D [facility] Model 4298 Attain Performa [facility] Model 5076 CapSureFix Novus [facility] Model 6947M Sprint Quattro Secure [facility] Pacing Mode DDDR [facility] Serial Number [id number] [facility] Serial Number [id number] [facility] Serial Number [id number] [facility] Serial Number [id number] [facility] Test Charge Energy 18 J [facility] Test Charge Time 4.644 [facility] Therapy Status (Vent) Enabled [facility] Thresh LV Capture Amplitude (volts) 1.625 V [facility] Thresh LV Capture Duration (ms) 0.5 ms [facility] Thresh RA Capture Amplitude (volts) 0.625 V [facility] Thresh RA Capture Duration (ms) 0.4 ms [facility] Thresh RA Sensing Amplitude (mvolts) 3.875 mV [facility] Thresh RV Capture Amplitude (VOLTS) 0.875 V [facility] Thresh RV Capture Duration (MS) 0.4 ms [facility] Thresh RV Sensing Amplitude (MVOLTS) 8.125 mV [facility] Tracking Rate (bpm) 130 {beats}/min [facility] VF Zone Detection Interval 320 ms [facility] VF Zone Therapy Configuration 1 ATP(s) + 6 Shock(s) [facility] No Panel Informationon 12-05 BLANK _ [facility] ICD-ATRIALTACHYCARDIA 0 [facility] ICD-Fast Ventricular Tachycardia 0 [facility] Implant Date 09/27/2015 [facility] ICD REMOTE CHECKon AV Delay Adaptive Paced Minimum (ms) 130 ms [facility] AV Delay Adaptive Rate Maximum (bpm) 130 {beats}/min [facility] AV Delay Adaptive Rate Minimum (bpm) 90 {beats}/min [facility] AV Delay Adaptive Sensed Minimum (ms) 100 ms [facility] AV Delay Adaptive Status ENABLED [facility] AV Delay Paced (ms) 100 ms [facility] AV Delay Sensed (ms) 70 ms [facility] Battery Voltage 2.85 V [facility] Jaxson LV Pacing Amplitude (volts) 2 V [facility] Jaxson LV Pacing Polarity BI [facility] Jaxson LV Pacing Pulse Width (ms) 1 ms [facility] Jaxson RA Pacing Amplitude (volts) 1.5 V [facility] Jaxson RA Pacing Polarity BI [facility] Jaxson RA Pacing Pulse Width (ms) 0.4 ms [facility] Jaxson RA Sensing Amplitude (mvolts) 0.3 mV [facility] Jaxson RA Sensing Blanking Period (ms) 150 ms [facility] Jaxson RA Sensing Polarity BI [facility] Jaxson RA Sensing Refractory Period (ms) 300 ms [facility] Jaxson RV Pacing Amplitude (volts) 2 V [facility] Jaxson RV Pacing Polarity BI [facility] Jaxson RV Pacing Pulse Width (ms) 0.4 ms [facility] Jaxson RV Sensing Amplitude (mvolts) 0.45 mV [facility] Jaxson RV Sensing Blanking Period (ms) 200 ms [facility] Jaxson RV Sensing Polarity BI [facility] Detection Configuration (Vent) 2 - Zone [facility] FastVT_Detection Interval 320 ms [facility] FastVT_Therapy Configuration 1 ATP(s) + 6 Shock(s) [facility] ICD ATAF DetectionInterval ms 350 ms [facility] ICD ATAF DetectionStatus ENABLED [facility] ICD FastVT DetectionStatus ENABLED [facility] ICD-ADLRATE_BPM 85 {beats}/min [facility] ICD-AMS EPISODES 171 {beats}/min [facility] ICD-ATP Episodes (Vent) 0 [facility] ICD-ATRIALFIBRILLATION 0 Cl [facility] ICD-Counters Cleared Date 09/27/2015 [facility] ICD-Device Mfg MDT [facility] ICD-LEADIMPEDANCEATRIA L 380 ohm [facility] ICD-Percent Pacing (Atrial) 20.51 % [facility] ICD-Percent Pacing (Vent) 98.96 % [facility] ICD-PMT Intervention ENABLED [facility] ICD-PVC Intervention ENABLED [facility] ICD-Rate Modulation Acceleration Reaction 30 s [facility] ICD-Rate Modulation Deceleration Exercise [facility] ICD-Rate Modulation Cowley 3 [facility] ICD-Rate Modulation Threshold MediumHigh [facility] ICD-Shocks Aborted (Vent) 0 [facility] [id number] 0 [facility] ICD-SHOCKSABORTED 0 [facility] ICD-SHOCKSDELIVEREDVEN TRICULAR 0 [facility] ICD-Ventricular Fibrillation 0 [facility] ICD-VVDELAY_MS 0 ms [facility] Lead Impedance (LV) 1368 ohm [facility] Lead Impedance (RV) 304 ohm [facility] Lead Impedance High Voltage 41 ohm [facility] Lead1 Mfg MDT [facility] Lead2 Mfg MDT [facility] Lead3 Mfg MDT [facility] Location LV [facility] Location RA [facility] Location RV [facility] Lower Rate (bpm) 60 {beats}/min [facility] Max Sensor Rate (bpm) 130 {beats}/min [facility] MDT_PROG_TACHY_ZONE_DE TECTIONS_STATUS ENABLED [facility] Model [id number] Compia MRI Q uad MATTRESS STRIPPER-D [facility] Model 4298 Attain Performa [facility] Model 5076 CapSureFix Novus [facility] Model 6947M Sprint Quattro Secure [facility] Pacing Mode DDDR [facility] Serial Number [id number] [facility] Serial Number [id number] [facility] Serial Number [id number] [facility] Serial Number [id number] [facility] Test Charge Energy 18 J [facility] Test Charge Time 4.504 [facility] Therapy Status (Vent) Enabled [facility] Thresh LV Capture Amplitude (volts) 1.625 V [facility] Thresh LV Capture Duration (ms) 0.5 ms [facility] Thresh RA Capture Amplitude (volts) 0.625 V [facility] Thresh RA Capture Duration (ms) 0.4 ms [facility] Thresh RA Sensing Amplitude (mvolts) 3.375 mV [facility] Thresh RV Capture Amplitude (VOLTS) 1 V [facility] Thresh RV Capture Duration (MS) 0.4 ms [facility] Thresh RV Sensing Amplitude (MVOLTS) 10.5 mV [facility] Tracking Rate (bpm) 130 {beats}/min [facility] VF Zone Detection Interval 320 ms [facility] VF Zone Therapy Configuration 1 ATP(s) + 6 Shock(s) [facility] No Panel Informationon 10-18 BLANK _ [facility] ICD-ATRIALTACHYCARDIA 0 [facility] ICD-Fast Ventricular Tachycardia 0 [facility] Implant Date 09/27/2015 [facility] LABORATORYOrdered By: Maddie Machado on 08-17-2021 Albumin BCP dye [Mass/Vol] 3.3 G/dL Invalid Interpretation Code 3.4 - 4.8 G/dL AO ADM SS Albumin/Globulin [Mass ratio] 1.4 {ratio} Invalid Interpretation Code 1.1 - 2.5 ratio AO ADM SS ALP [Catalytic activity/Vol] 103 U/L Invalid Interpretation Code 40 - 135 U/L AO ADM SS ALT With P-5'-P [Catalytic activity/Vol] 23 U/L Invalid Interpretation Code 16 - 63 U/L AO ADM SS AST With P-5'-P [Catalytic activity/Vol] 15 U/L Invalid Interpretation Code 10 - 40 U/L AO ADM SS Atypical Lymphs 10.0 1 Invalid Interpretation Code 0.0 - 5.0 % AO Auto Heme SS Basophil %, Manual 0.0 1 Invalid Interpretation Code 0.0 - 2.5 % AO Auto Heme SS Basophil, Abs Manual 0.00 103/mcL Invalid Interpretation Code 0.00 - 0.19 10^3/mcL AO Auto Heme SS Bilirubin [Mass/Vol] 0.3 mg/dL Invalid Interpretation Code 0.2 - 1.0 mg/dL AO ADM SS Calcium [Mass/Vol] 9.3 mg/dL Invalid Interpretation Code 8.4 - 10.2 mg/dL AO ADM SS Chloride [Moles/Vol] 105 mmol/L Invalid Interpretation Code 98 - 107 mmol/L AO ADM SS Cholesterol [Mass/Vol] 214 mg/dL Invalid Interpretation Code 0 - 200 mg/dL AO ADM SS Cholesterol in HDL [Mass/Vol] 45 mg/dL Invalid Interpretation Code 40 - 60 mg/dL AO ADM SS Cholesterol in LDL [Mass/Vol] 147 mg/dL Invalid Interpretation Code 0 - 130 mg/dL AO ADM SS CO2 [Moles/Vol] 29 mmol/L Invalid Interpretation Code 23 - 31 mmol/L AO ADM SS Creatinine [Mass/Vol] 1.48 mg/dL Invalid Interpretation Code 0.70 - 1.30 mg/dL AO ADM SS Electrolyte Balance 8.0 mEq/L Invalid Interpretation Code 4.0 - 15.0 mEq/L AO ADM SS Eosinophil %, Manual 2.0 1 Invalid Interpretation Code 0.0 - 7.0 % AO Auto Heme SS Eosinophil, Abs Manual 0.88 103/mcL Invalid Interpretation Code 0.00 - 0.40 10^3/mcL AO Auto Heme SS Erythrocyte distribution width (RBC) [Ratio] 18.5 % Invalid Interpretation Code 11.5 - 14.5 % AO Auto Heme SS Globulin 2.3 G/dL Invalid Interpretation Code AO ADM SS Glucose [Mass/Vol] 108 mg/dL Invalid Interpretation Code 83 - 110 mg/dL AO ADM SS HbA1c (Bld) [Mass fraction] 6.5 % Invalid Interpretation Code 4.3 - 6.4 % AO ADM SS Hematocrit (Bld) [Volume fraction] 32.6 % Invalid Interpretation Code 42.0 - 52.0 % AO Auto Heme SS Hemoglobin (Bld) [Mass/Vol] 10.4 G/dL Invalid Interpretation Code 14.0 - 18.0 G/dL AO Auto Heme SS Iron [Mass/Vol] 41 ug/dL Invalid Interpretation Code 65 - 175 mcg/dL AO ADM SS Lymphocyte %, Manual 71.0 1 Invalid Interpretation Code 10.0 - 50.0 % AO Auto Heme SS Lymphocyte, Abs Manual 35.80 103/mcL Invalid Interpretation Code 0.77 - 3.85 10^3/mcL AO Auto Heme SS MCH (RBC) [Entitic mass] 26.6 pg Invalid Interpretation Code 27.0 - 31.2 pg AO Auto Heme SS MCHC (RBC) [Mass/Vol] 32.0 G/dL Invalid Interpretation Code 31.8 - 35.4 G/dL AO Auto Heme SS MCV (RBC) [Entitic vol] 83.3 fL Invalid Interpretation Code 80.0 - 94.0 fL AO Auto Heme SS Monocyte %, Manual 1.0 1 Invalid Interpretation Code 1.7 - 13.0 % AO Auto Heme SS Monocyte, Abs Manual 0.44 103/mcL Invalid Interpretation Code 0.15 - 1.00 10^3/mcL AO Auto Heme SS Neutrophil %, Manual 16.0 1 Invalid Interpretation Code 37.0 - 80.0 % AO Auto Heme SS Neutrophil, Abs Manual 7.07 103/mcL Invalid Interpretation Code 2.85 - 6.16 10^3/mcL AO Auto Heme SS Platelet Estimate Normal (08/17/21 7:36 AM) Invalid Interpretation Code AO Auto Heme SS Platelet mean volume (Bld) [Entitic vol] 7.8 fL Invalid Interpretation Code 7.4 - 10.4 fL AO Auto Heme SS Platelets (Bld) [#/Vol] 280 103/mcL Invalid Interpretation Code 130 - 400 10^3/mcL AO Auto Heme SS Potassium [Moles/Vol] 4.2 mmol/L Invalid Interpretation Code 3.5 - 5.1 mmol/L AO ADM SS Protein [Mass/Vol] 5.6 G/dL Invalid Interpretation Code 6.4 - 8.2 G/dL AO ADM SS RBC (Bld) [#/Vol] 3.92 106/mcL Invalid Interpretation Code 4.04 - 6.13 10^6/mcL AO Auto Heme SS Smudge cells/100 WBC (Bld) Many (08/17/21 7:36 AM) Invalid Interpretation Code AO Auto Heme SS Sodium [Moles/Vol] 142 mmol/L Invalid Interpretation Code 136 - 145 mmol/L AO ADM SS Triglyceride [Mass/Vol] 110 mg/dL Invalid Interpretation Code 0 - 150 mg/dL AO ADM SS Urea nitrogen [Mass/Vol] 31 mg/dL Invalid Interpretation Code 7 - 18 mg/dL AO ADM SS Urea nitrogen/Creatinine [Mass ratio] 21 ratio Invalid Interpretation Code 7 - 27 ratio AO ADM SS WBC (Bld) [#/Vol] 44.20 103/mcL Invalid Interpretation Code 4.60 - 10.80 10^3/mcL AO Auto Heme SS LABORATORYOrdered By: SYSTEM SYSTEM on 08-17-2021 Cobalamin (Vitamin B12) [Mass/Vol] pg/mL Invalid Interpretation Code 211 - 911 pg/mL AH ADM SS Ferritin [Mass/Vol] 60.6 ng/mL Invalid Interpretation Code 26.0 - 388.0 ng/mL AH ADM SS Folate [Mass/Vol] 16.36 ng/mL Invalid Interpretation Code 5.38 - 24.00 ng/mL AH ADM SS GFR 55 ml/min/1.73sqm Invalid Interpretation Code AO Chemistry S GFR Non- 45 ml/min/1.73sqm Invalid Interpretation Code AO Chemistry S CT BRAIN WO IVCONon 07-06-[address] BRAIN WO IVCON * * *Final Report* * * DATE OF EXAM: Jul 06 2020 3:36PM [facility] [place] BRAIN WO IVCON / PROCEDURE REASON: subdural hematoma, pt to take cd * * * * Physician Interpretation * * * * EXAMINATION: CT BRAIN WO IVCON CLINICAL HISTORY: FOLLOW UP SUBDURAL TECHNIQUE: Serial axial images without IV contrast were obtained from the vertex to the foramen magnum. MQ: [id number] CT Radiation dose: Integrated Dose-Length Product (DLP) for this visit = 744 mGy*cm CT Dose Reduction Employed: No dose reduction techniques were required COMPARISON: 07/04/2017 RESULT: Post-operative change: Left frontoparietal craniotomy Acute change: No evidence of an acute infarct or other acute parenchymal process. Hemorrhage: No evidence of acute intracranial hemorrhage. ECASS hemorrhagic transformation score: Not Applicable Mass Lesion / Mass Effect: There is no evidence of an intracranial mass or extraaxial fluid collection. No significant mass effect. Chronic change: Scattered patchy foci of low attenuation are present within supratentorial white matter which is a nonspecific finding but likely represents mild microvascular ischemia. Parenchyma: There is no significant volume loss. The brain parenchyma is otherwise within normal limits for age. Ventricles: The ventricles are within normal limits of size and configuration for age. Paranasal sinuses and skull base: The visualized paranasal sinuses are grossly clear. The skull base and imaged soft tissues are unremarkable. Pharmaceutical Process Engineer (topogram) images: No additional findings. IMPRESSION: NO EVIDENCE OF AN ACUTE INTRACRANIAL PROCESS Manuscripts Curator: MILLIE Transcribe Date/Time: Jul 06 2020 3:37P Dictated by : BOLIVAR SANTOYO MD This examination was interpreted and the report reviewed and electronically signed by: BOLIVAR SANTOYO MD on Jul 06 2020 3:40PM EST [id number] [facility] PROGRESSon 07-06-2020 PROGRESS HNO ID: [id number] Author: NOBLE Kelly (Ct) Service: Radiology Author Type: Clinical Medical Service Representative Type: Progress Notes Filed: 07/06/2020 3:35 PM Note Text: Radiology Service Progress Note PATIENT NAME: Jaime Ann DATE OF SERVICE: July 06, 2020 TIME: 3:35 PM PATIENT IDENTITY VERIFICATION COMPLETED USING TWO (2) IDENTIFIERS: Name and Date of confirmed by patient verbally and Name and Date of confirmed by identification band. FALL SCREENING: Has the patient had 2 falls in the last year or 1 fall with injury or currently using an Ambulatory Assistive Device (Walker, Cane, Wheelchair, Crutches, etc.)? No PATIENT GENDER DATA: Male PATIENT RELEVANT IMPLANT DATA REVIEWED: Not Applicable RADIOLOGY DEPARTMENT: CT; Exam(s) Completed: Brain PERIPHERAL IV DATA: Not applicable SIGNED BY: NOBLE Kelly July 06, 2020 3:35 PM Normal [facility] Basophil percentageon 2019 Eosinophils/100 WBC (Bld) 3 % 0-5 [facility] Cells counted Molgen (Bld/Ti ss) [#]on 02-05-2020 Differential Total Cells Counted 100 MANUAL DIFF [facility] Laboratory - Hematology and Cell countson 02-05-2020 Lymphocytes/100 WBC (Bld) 71 % High 19-41 [facility] Metamyelocytes/100 WBC (Bld) 1 % 0-1 [facility] Monocytes/100 WBC (Bld) 6 % 0-10 [facility] Neutrophils/100 WBC (Bld) 17 % Low 47-70 [facility] No Panel Informationon 02-04 Blast Cells % 2 % High 0-0 [facility] Serum or plasma uric acid me asurement (mass/volume)on 02-05-2020 Urate [Mass/Vol] 6.8 mg/dL 3.5-7.2 [facility] Comment on above: The drugs N-Acetylcy steine and Metamizole may falsely depress this assay. Total cell counton 0 Cells counted Molgen (Bld/Tiss) [#] 100 MANUAL DIFF [facility] Blood platelet morphology de termination (nominal result)on 10-28-2019 Platelet morphology finding Nom (Bld) [facility] Laboratory - Hematology and Cell countson 10-28-2019 Band form neutrophils/100 WBC (Bld) 1 % 0-5 [facility] Platelet morphology finding Nom (Bld)on 10-28-2019 Platelet Morphology Comment [facility] Clinical Summary: HMSPatient IDon 09-30-2019 SOP [facility] Work Phone: Clinical Summary: HMSPatient IDon 09-26-2019 number of previous outpatient psychiatric treatments [id number] SOT [facility] Work Phone: SOP [facility] Work Phone: Office Visit: New/Est - 1st visit with physician, Rm:on 09-26-2019 xray history of the right hand on 09/25/2019 at [facility] Work Phone: NEGATED: Highlighted rowxray history of the right hand on 09/25/2019 at [facility] Work Phone: Erythrocyte distribution wid th (RBC) [Entitic vol]on 08-21-2017 Red Cell Distribution Width Diff 49.9 fl High 35.1-43.9 [facility] Erythrocyte distribution wid th standard deviationon 08-21-2017 Erythrocyte distribution width (RBC) [Entitic vol] 49.9 fL 35.1-43.9 [facility] Laboratory - Hematology and Cell countson 08-21-2017 Erythrocyte distribution width (RBC) [Ratio] 15.0 % High 11.6-14.6 [facility] Vital Signs Date Time Vital Sign Value [facility] 10-20-2024 13:56-0400 Body height 177.8 cm Leona Parra MD Work Phone: [facility] 10-20-2024 13:56-0400 Body mass index (BMI) [Ratio] 22.9 kg/m2 Leona Parra MD Work Phone: [facility] 10-20-2024 13:56-0400 Body weight 72.57 kg Leona Parra MD Work Phone: [facility] 10-20-2024 13:56-0400 Diastolic blood pressure 91 mm[Hg] Leona Parra MD Work Phone: [facility] 10-20-2024 13:56-0400 Heart rate 73 /min Leona Parra MD Work Phone: [facility] 10-20-2024 13:56-0400 Respiratory rate 16 /min Leona Parra MD Work Phone: [facility] 10-20-2024 13:56-0400 Systolic blood pressure 147 mm[Hg] Leona Parra MD Work Phone: [facility] 10-02-2024 06:51-0400 Body mass index (BMI) [Ratio] 23.5 kg/m2 Leona Parra MD Work Phone: [facility] 10-02-2024 06:51-0400 Body weight 74.38 kg Leona Parra MD Work Phone: [facility] 10-02-2024 06:51-0400 Diastolic blood pressure 82 mm[Hg] Leona Parra MD Work Phone: [facility] 10-02-2024 06:51-0400 Heart rate 70 /min Leona Parra MD Work Phone: [facility] 10-02-2024 06:51-0400 Respiratory rate 18 /min Leona Parra MD Work Phone: [facility] 10-02-2024 06:51-0400 SaO2% (BldA) [Mass fraction] 99 % Leona Parra MD Work Phone: [facility] 10-02-2024 06:51-0400 Systolic blood pressure 171 mm[Hg] Leona Parra MD Work Phone: [facility] 09-04-2024 11:37-0400 Diastolic blood pressure 60 mm[Hg] Leona Parra MD Work Phone: [facility] 09-04-2024 11:37-0400 Heart rate 66 /min Leona Parra MD Work Phone: [facility] 09-04-2024 11:37-0400 Respiratory rate 18 /min Leona Parra MD Work Phone: [facility] 09-04-2024 11:37-0400 SaO2% (BldA) [Mass fraction] 89 % Leona Parra MD Work Phone: [facility] 09-04-2024 11:37-0400 Systolic blood pressure 101 mm[Hg] Leona Parra MD Work Phone: [facility] 09-04-2024 11:36-0400 Body height 177.8 cm Leona Parra MD Work Phone: [facility] 09-04-2024 11:36-0400 Body mass index (BMI) [Ratio] 23.9 kg/m2 Leona Parra MD Work Phone: [facility] 09-04-2024 11:36-0400 Body weight 75.74 kg Leona Parra MD Work Phone: [facility] 07-16-2024 14:10-0500 Body height 177.8 cm Kenn Baltes [employer] Work Phone: [facility] 07-16-2024 14:10-0500 Body mass index (BMI) [Ratio] 23.4 kg/m2 Kenn Baltes [employer] Work Phone: [facility] 07-16-2024 14:10-0500 Body temperature 98.3 [degF] Kenn Baltes [employer] Work Phone: [facility] 07-16-2024 14:10-0500 Body weight 74.1 kg Kenn Baltes [employer] Work Phone: [facility] 07-16-2024 14:10-0500 Diastolic blood pressure 59 mm[Hg] Kenn Baltes [employer] Work Phone: [facility] 07-16-2024 14:10-0500 Heart rate 65 /min Kenn Baltes [employer] Work Phone: [facility] 07-16-2024 14:10-0500 Respiratory rate 18 /min Kenn Baltes [employer] Work Phone: [facility] 07-16-2024 14:10-0500 SaO2% (BldA) [Mass fraction] 98 % Kenn Baltes [employer] Work Phone: [facility] 07-16-2024 14:10-0500 Systolic blood pressure 109 mm[Hg] Kenn Baltes [employer] Work Phone: [facility] 07-10-2024 10:14-0500 Body mass index (BMI) [Ratio] 23.3 kg/m2 Kenn Baltes [employer] Work Phone: [facility] 07-10-2024 10:14-0500 Body weight 73.93 kg Kenn Baltes [employer] Work Phone: [facility] 07-10-2024 10:14-0500 Diastolic blood pressure 60 mm[Hg] Kenn Baltes [employer] Work Phone: [facility] 07-10-2024 10:14-0500 Heart rate 65 /min Kenn Baltes [employer] Work Phone: [facility] 07-10-2024 10:14-0500 Respiratory rate 18 /min Kenn Baltes [employer] Work Phone: [facility] 07-10-2024 10:14-0500 Systolic blood pressure 104 mm[Hg] Kenn Baltes [employer] Work Phone: [facility] 06-24-2024 14:57-0500 Body mass index (BMI) [Ratio] 24.1 kg/m2 Kenn Baltes [employer] Work Phone: [facility] 06-24-2024 14:57-0500 Body temperature 97 [degF] Kenn Baltes [employer] Work Phone: [facility] 06-24-2024 14:57-0500 Body weight 76.31 kg Kenn Baltes [employer] Work Phone: [facility] 06-24-2024 14:57-0500 Diastolic blood pressure 60 mm[Hg] Kenn Baltes [employer] Work Phone: [facility] 06-24-2024 14:57-0500 Heart rate 62 /min Kenn Baltes [employer] Work Phone: [facility] 06-24-2024 14:57-0500 Respiratory rate 18 /min Kenn Baltes [employer] Work Phone: [facility] 06-24-2024 14:57-0500 SaO2% (BldA) [Mass fraction] 94 % Kenn Baltes [employer] Work Phone: [facility] 06-24-2024 14:57-0500 Systolic blood pressure 120 mm[Hg] Kenn Baltes [employer] Work Phone: [facility] 08-20-2023 21:05-0400 Body temperature 98.3 [degF] [employer] Kenn Baltes [employer] Work Phone: [facility] 08-20-2023 21:05-0400 Diastolic blood pressure 90 mm[Hg] [employer] Kenn Baltes [employer] Work Phone: [facility] 08-20-2023 21:05-0400 Heart rate 71 /min [employer] Kenn Baltes [employer] Work Phone: [facility] 08-20-2023 21:05-0400 Respiratory rate 16 /min [employer] Kenn Baltes [employer] Work Phone: [facility] 08-20-2023 21:05-0400 SaO2% (BldA) [Mass fraction] 96 % [employer] Kenn Baltes [employer] Work Phone: [facility] 08-20-2023 21:05-0400 Systolic blood pressure 155 mm[Hg] [employer] Kenn Baltes [employer] Work Phone: [facility] 08-20-2023 12:53-0400 Body height 177.8 cm [employer] Kenn Baltes [employer] Work Phone: [facility] 08-20-2023 12:53-0400 Body weight 72.57 kg [employer] Kenn Baltes [employer] Work Phone: [facility] 08-16-2023 16:26-0400 Body mass index (BMI) [Ratio] 22.9 kg/m2 [employer] Kenn Baltes [employer] Work Phone: [facility] 08-16-2023 15:00-0400 Diastolic blood pressure 90 mm[Hg] [employer] Kenn Baltes [employer] Work Phone: [facility] 08-16-2023 15:00-0400 Heart rate 63 /min [employer] Kenn Baltes [employer] Work Phone: [facility] 08-16-2023 15:00-0400 Respiratory rate 14 /min [employer] Kenn Baltes [employer] Work Phone: [facility] 08-16-2023 15:00-0400 SaO2% (BldA) [Mass fraction] 94 % [employer] Kenn Baltes [employer] Work Phone: [facility] 08-16-2023 15:00-0400 Systolic blood pressure 136 mm[Hg] [employer] Kenn Baltes [employer] Work Phone: [facility] 08-16-2023 14:00-0400 Body temperature 98 [degF] [employer] Kenn Baltes [employer] Work Phone: [facility] 08-16-2023 11:35-0400 Body height 177.8 cm [employer] Kenn Baltes [employer] Work Phone: [facility] 08-10-2023 08:50-0400 Body temperature 96.8 [degF] [employer] Kenn Baltes [employer] Work Phone: [facility] 08-10-2023 08:50-0400 Diastolic blood pressure 82 mm[Hg] [employer] Kenn Baltes [employer] Work Phone: [facility] 08-10-2023 08:50-0400 Heart rate 74 /min [employer] Kenn Baltes [employer] Work Phone: [facility] 08-10-2023 08:50-0400 Respiratory rate 16 /min [employer] Kenn Baltes [employer] Work Phone: [facility] 08-10-2023 08:50-0400 SaO2% (BldA) [Mass fraction] 95 % [employer] Kenn Baltes [employer] Work Phone: [facility] 08-10-2023 08:50-0400 Systolic blood pressure 157 mm[Hg] [employer] Kenn Baltes [employer] Work Phone: [facility] 08-10-2023 04:15-0400 Body mass index (BMI) [Ratio] 24 kg/m2 [employer] Kenn Baltes [employer] Work Phone: [facility] 08-10-2023 04:15-0400 Body weight 75.9 kg [employer] Kenn Baltes [employer] Work Phone: [facility] 08-09-2023 09:00-0400 Inhaled oxygen flow rate 2 L/min [employer] Kenn Baltes [employer] Work Phone: [facility] 08-08-2023 16:02-0400 Body height 177.8 cm [employer] Kenn Baltes [employer] Work Phone: [facility] 08-07-2023 15:40-0400 Body temperature 98.1 [degF] [employer] Kenn Baltes [employer] Work Phone: [facility] 08-07-2023 15:40-0400 Diastolic blood pressure 93 mm[Hg] [employer] Kenn Baltes [employer] Work Phone: [facility] 08-07-2023 15:40-0400 Heart rate 81 /min [employer] Kenn Baltes [employer] Work Phone: [facility] 08-07-2023 15:40-0400 Respiratory rate 18 /min [employer] Kenn Baltes [employer] Work Phone: [facility] 08-07-2023 15:40-0400 SaO2% (BldA) [Mass fraction] 98 % [employer] Kenn Baltes [employer] Work Phone: [facility] 08-07-2023 15:40-0400 Systolic blood pressure 159 mm[Hg] [employer] Kenn Baltes [employer] Work Phone: [facility] 08-07-2023 12:30-0400 Body height 177.8 cm [employer] Kenn Baltes [employer] Work Phone: [facility] 08-07-2023 12:30-0400 Body mass index (BMI) [Ratio] 25.5 kg/m2 [employer] Kenn Baltes [employer] Work Phone: [facility] 08-07-2023 12:30-0400 Body weight 80.73 kg [employer] Kenn Baltes [employer] Work Phone: [facility] 06-21-2023 15:01-0500 Body mass index (BMI) [Ratio] 26.6 kg/m2 [employer] Kenn Baltes [employer] Work Phone: [facility] 06-21-2023 15:01-0500 Body temperature 98.7 [degF] [employer] Kenn Baltes [employer] Work Phone: [facility] 06-21-2023 15:01-0500 Body weight 79.57 kg [employer] Kenn Baltes [employer] Work Phone: [facility] 06-21-2023 15:01-0500 Diastolic blood pressure 71 mm[Hg] [employer] Kenn Baltes [employer] Work Phone: [facility] 06-21-2023 15:01-0500 Heart rate 81 /min [employer] Kenn Baltes [employer] Work Phone: [facility] 06-21-2023 15:01-0500 Respiratory rate 18 /min [employer] Kenn Baltes [employer] Work Phone: [facility] 06-21-2023 15:01-0500 SaO2% (BldA) [Mass fraction] 98 % [employer] Kenn Baltes [employer] Work Phone: [facility] 06-21-2023 15:01-0500 Systolic blood pressure 155 mm[Hg] [employer] Kenn Baltes [employer]ER Work Phone: [facility] 06-19-2023 11:15-0500 Body height 177.8 cm Kate Aguirre MD Work Phone: [facility] 06-19-2023 11:15-0500 Body weight 77.11 kg Kate Aguirre MD Work Phone: [facility] 06-19-2023 11:15-0500 Diastolic blood pressure 80 mm[Hg] Kate Aguirre MD Work Phone: [facility] 06-19-2023 11:15-0500 Heart rate 65 /min Kate Aguirre MD Work Phone: [facility] 06-19-2023 11:15-0500 SaO2% (BldA) [Mass fraction] 99 % Kate Aguirre MD Work Phone: [facility] 06-19-2023 11:15-0500 Systolic blood pressure 130 mm[Hg] Kate Aguirre MD Work Phone: [facility] 05-10-2023 14:01-0500 Body mass index (BMI) [Ratio] 25.9 kg/m2 [employer] Kenn Baltes [employer] Work Phone: [facility] 05-10-2023 14:01-0500 Body temperature 98.4 [degF] [employer] Kenn Baltes [employer] Work Phone: [facility] 05-10-2023 14:01-0500 Body weight 77.28 kg [employer] Kenn Baltes [employer] Work Phone: [facility] 05-10-2023 14:01-0500 Diastolic blood pressure 57 mm[Hg] [employer] Kenn Baltes [employer]ER Work Phone: [facility] 05-10-2023 14:01-0500 Heart rate 80 /min [employer] Kenn Baltes [employer] Work Phone: [facility] 05-10-2023 14:01-0500 Respiratory rate 18 /min [employer] Kenn Baltes [employer] Work Phone: [facility] 05-10-2023 14:01-0500 SaO2% (BldA) [Mass fraction] 98 % [employer] Kenn Baltes [employer] Work Phone: [facility] 05-10-2023 14:01-0500 Systolic blood pressure 107 mm[Hg] [employer] Kenn Baltes [employer] Work Phone: [facility] 04-24-2023 11:03-0500 Body height 172.72 cm [employer] Kenn Baltes [employer] Work Phone: [facility] 04-24-2023 11:03-0500 Body mass index (BMI) [Ratio] 25.9 kg/m2 [employer] Kenn Baltes [employer] Work Phone: [facility] 04-24-2023 11:03-0500 Body temperature 97.5 [degF] [employer] Kenn Baltes [employer] Work Phone: [facility] 04-24-2023 11:03-0500 Body weight 77.3 kg [employer] Kenn Baltes [employer] Work Phone: [facility] 04-24-2023 11:03-0500 Diastolic blood pressure 75 mm[Hg] [employer] Kenn Baltes [employer]ER Work Phone: [facility] 04-24-2023 11:03-0500 Heart rate 70 /min [employer] Kenn Baltes [employer] Work Phone: [facility] 04-24-2023 11:03-0500 Respiratory rate 18 /min [employer] Kenn Baltes [employer] Work Phone: [facility] 04-24-2023 11:03-0500 SaO2% (BldA) [Mass fraction] 96 % [employer] Kenn Baltes [employer] Work Phone: [facility] 04-24-2023 11:03-0500 Systolic blood pressure 145 mm[Hg] [employer] Kenn Baltes [employer]ER Work Phone: [facility] 04-20-2023 11:27-0500 Diastolic blood pressure 77 mm[Hg] [employer] Kenn Baltes [employer]ER Work Phone: [facility] 04-20-2023 11:27-0500 Heart rate 100 /min [employer] Kenn Baltes [employer] Work Phone: [facility] 04-20-2023 11:27-0500 SaO2% (BldA) [Mass fraction] 97 % [employer] Kenn Baltes [employer]ER Work Phone: [facility] 04-20-2023 11:27-0500 Systolic blood pressure 152 mm[Hg] [employer] Kenn Baltes [employer]ER Work Phone: [facility] 04-20-2023 10:57-0500 Respiratory rate 18 /min [employer] Kenn Baltes [employer] Work Phone: [facility] 04-17-2023 15:00-0500 Body mass index (BMI) [Ratio] 25.9 kg/m2 [employer] Kenn Baltes [employer]ER Work Phone: [facility] 04-17-2023 15:00-0500 Body temperature 97 [degF] [employer] Kenn Baltes [employer]ER Work Phone: [facility] 04-17-2023 15:00-0500 Body weight 77.3 kg [employer] Kenn Baltes [employer] Work Phone: [facility] 04-17-2023 15:00-0500 Diastolic blood pressure 76 mm[Hg] [employer] Kenn Baltes [employer]ER Work Phone: [facility] 04-17-2023 15:00-0500 Heart rate 7 /min [employer] Kenn Baltes [employer]ER Work Phone: [facility] 04-17-2023 15:00-0500 Respiratory rate 18 /min [employer] Kenn Baltes [employer]ER Work Phone: [facility] 04-17-2023 15:00-0500 SaO2% (BldA) [Mass fraction] 97 % [employer] Kenn Baltes [employer]ER Work Phone: [facility] 04-17-2023 15:00-0500 Systolic blood pressure 156 mm[Hg] [employer] Kenn Baltes [employer]ER Work Phone: [facility] 04-12-2023 10:44-0500 Body height 175.3 cm Apple Barnett MD Work Phone: [facility] 04-12-2023 10:44-0500 Body weight 75.16 kg Apple Barnett MD Work Phone: [facility] 04-12-2023 10:44-0500 Diastolic blood pressure 58 mm[Hg] Apple Barnett MD Work Phone: [facility] 04-12-2023 10:44-0500 Heart rate 81 /min Apple Barnett MD Work Phone: [facility] 04-12-2023 10:44-0500 SaO2% (BldA) [Mass fraction] 98 % Apple Barnett MD Work Phone: [facility] 04-12-2023 10:44-0500 Systolic blood pressure 113 mm[Hg] Apple Barnett MD Work Phone: [facility] 04-02-2023 15:00-0500 Diastolic blood pressure 77 mm[Hg] [employer] Kenn Baltes [employer]ER Work Phone: [facility] 04-02-2023 15:00-0500 Heart rate 76 /min [employer] Kenn Baltes [employer]ER Work Phone: [facility] 04-02-2023 15:00-0500 Systolic blood pressure 167 mm[Hg] [employer] Kenn Baltes [employer]ER Work Phone: [facility] 04-02-2023 14:38-0500 Body temperature 99.3 [degF] [employer] Kenn Baltes [employer]ER Work Phone: [facility] 04-02-2023 14:38-0500 Respiratory rate 16 /min [employer] Kenn Baltes [employer]ER Work Phone: [facility] 04-02-2023 14:38-0500 SaO2% (BldA) [Mass fraction] 94 % [employer] Kenn Baltes [employer]ER Work Phone: [facility] 04-02-2023 04:43-0500 Body mass index (BMI) [Ratio] 27.4 kg/m2 [employer] Kenn Baltes [employer]ER Work Phone: [facility] 04-02-2023 04:43-0500 Body weight 81.8 kg [employer] Kenn Baltes [employer]ER Work Phone: [facility] 03-31-2023 17:03-0500 Body height 172.72 cm [employer] Kenn Baltes [employer]ER Work Phone: [facility] 03-31-2023 16:50-0500 Diastolic blood pressure 81 mm[Hg] [employer] Kenn Baltes [employer]ER Work Phone: [facility] 03-31-2023 16:50-0500 Systolic blood pressure 163 mm[Hg] [employer] Kenn Baltes [employer]ER Work Phone: [facility] 03-31-2023 14:01-0500 Body height 173 cm [employer] Kenn Baltes [employer]ER Work Phone: [facility] 03-31-2023 14:01-0500 Body mass index (BMI) [Ratio] 27.3 kg/m2 [employer] Kenn Baltes [employer]ER Work Phone: [facility] 03-31-2023 14:01-0500 Body temperature 98.4 [degF] [employer] Kenn Baltes [employer]ER Work Phone: [facility] 03-31-2023 14:01-0500 Body weight 81.64 kg [employer] Kenn Baltes [employer] FE[employer]ER Work Phone: [facility] 03-31-2023 14:01-0500 Heart rate 77 /min [employer] Kenn Baltes [employer] FEEDER Work Phone: [facility] 03-31-2023 14:01-0500 Respiratory rate 18 /min [employer] Kenn Baltes [employer] FE[employer]ER Work Phone: [facility] 03-31-2023 14:01-0500 SaO2% (BldA) [Mass fraction] 98 % [employer] Kenn Baltes [employer] FE[employer]ER Work Phone: [facility] 03-31-2023 13:46-0500 Body mass index (BMI) [Ratio] 27.3 kg/m2 [employer] Kenn Baltes [employer]ER Work Phone: [facility] 03-31-2023 13:46-0500 Body temperature 98.2 [degF] [employer] Kenn Baltes [employer] FE[employer]ER Work Phone: [facility] 03-31-2023 13:46-0500 Body weight 81.64 kg [employer] Kenn Baltes [employer] Work Phone: [facility] 03-31-2023 13:46-0500 Diastolic blood pressure 54 mm[Hg] [employer] Kenn Baltes [employer] FE[employer]ER Work Phone: [facility] 03-31-2023 13:46-0500 Heart rate 70 /min [employer] Kenn Baltes [employer] FE[employer]ER Work Phone: [facility] 03-31-2023 13:46-0500 Respiratory rate 14 /min [employer] Kenn Baltes [employer]ER Work Phone: [facility] 03-31-2023 13:46-0500 SaO2% (BldA) [Mass fraction] 98 % [employer] Kenn Baltes [employer]ER Work Phone: [facility] 03-31-2023 13:46-0500 Systolic blood pressure 132 mm[Hg] [employer] Kenn Baltes [employer]ER Work Phone: [facility] 03-20-2023 14:39-0500 Body mass index (BMI) [Ratio] 26.2 kg/m2 [employer] Kenn Baltes [employer]ER Work Phone: [facility] 03-20-2023 14:39-0500 Body temperature 98.6 [degF] [employer] Kenn Baltes [employer]ER Work Phone: [facility] 03-20-2023 14:39-0500 Body weight 78.47 kg [employer] Kenn Baltes [employer] Work Phone: [facility] 03-20-2023 14:39-0500 Diastolic blood pressure 68 mm[Hg] [employer] Kenn Baltes [employer]ER Work Phone: [facility] 03-20-2023 14:39-0500 Heart rate 71 /min [employer] Kenn Baltes [employer]ER Work Phone: [facility] 03-20-2023 14:39-0500 Respiratory rate 18 /min [employer] Kenn Baltes [employer]ER Work Phone: [facility] 03-20-2023 14:39-0500 SaO2% (BldA) [Mass fraction] 98 % [employer] Kenn Baltes [employer]ER Work Phone: [facility] 03-20-2023 14:39-0500 Systolic blood pressure 169 mm[Hg] [employer] Kenn Baltes [employer]ER Work Phone: [facility] 03-15-2023 08:25-0400 Body temperature 98.4 [degF] [employer] Kenn Baltes [employer] Work Phone: [facility] 03-15-2023 08:25-0400 Diastolic blood pressure 94 mm[Hg] [employer] Kenn Baltes [employer]ER Work Phone: [facility] 03-15-2023 08:25-0400 Heart rate 67 /min [employer] Kenn Baltes [employer]ER Work Phone: [facility] 03-15-2023 08:25-0400 Respiratory rate 16 /min [employer] Kenn Baltes [employer] Work Phone: [facility] 03-15-2023 08:25-0400 Systolic blood pressure 159 mm[Hg] [employer] Kenn Baltes [employer] Work Phone: [facility] 03-15-2023 05:02-0400 SaO2% (BldA) [Mass fraction] 96 % [employer] Kenn Baltes [employer]ER Work Phone: [facility] 03-14-2023 13:25-0400 Body height 173 cm [employer] Kenn Baltes [employer] Work Phone: [facility] 03-14-2023 13:25-0400 Body mass index (BMI) [Ratio] 24.7 kg/m2 [employer] Kenn Baltes [employer] Work Phone: [facility] 03-14-2023 13:25-0400 Body weight 73.9 kg [employer] Kenn Baltes [employer] Work Phone: [facility] 03-08-2023 15:10-0400 Body temperature 97.9 [degF] [employer] Kenn Baltes [employer] Work Phone: [facility] 03-08-2023 15:10-0400 Diastolic blood pressure 75 mm[Hg] [employer] Kenn Baltes [employer] Work Phone: [facility] 03-08-2023 15:10-0400 Heart rate 69 /min [employer] Kenn Baltes [employer] Work Phone: [facility] 03-08-2023 15:10-0400 Respiratory rate 18 /min [employer] Kenn Baltes [employer] Work Phone: [facility] 03-08-2023 15:10-0400 SaO2% (BldA) [Mass fraction] 95 % [employer] Kenn Baltes [employer] Work Phone: [facility] [facility] 03-08-2023 15:10-0400 Systolic blood pressure 149 mm[Hg] GARNETT FEEDER-C Kenn Baltes GARNETT FEEDER Work Phone: [facility] 03-08-2023 02:35-0400 Body mass index (BMI) [Ratio] 25.4 kg/m2 GARNETT FEEDER-C Kenn Baltes GARNETT FEEDER Work Phone: [facility] 03-08-2023 02:35-0400 Body weight 76 kg GARNETT FEEDER-C Kenn Baltes GARNETT FEEDER Work Phone: [facility] 03-04-2023 15:08-0400 Body height 172.72 cm GARNETT FEEDER-C Kenn Baltes GARNETT FEEDER Work Phone: [facility] 03-04-2023 14:40-0400 Body temperature 97.6 [degF] [facility] 03-04-2023 14:40-0400 Diastolic blood pressure 78 mm[Hg] [facility] 03-04-2023 14:40-0400 Heart rate 64 /min [facility] 03-04-2023 14:40-0400 Respiratory rate 14 /min [facility] 03-04-2023 14:40-0400 SaO2% (BldA) [Mass fraction] 99 % [facility] 03-04-2023 14:40-0400 Systolic blood pressure 118 mm[Hg] [facility] 03-04-2023 12:48-0400 Body mass index (BMI) [Ratio] 25 kg/m2 [facility] 03-04-2023 12:48-0400 Body weight 79.19 kg [facility] 03-04-2023 12:39-0400 Body height 177.8 cm [facility] 01-18-2023 14:42-0400 Body height 175.3 cm Lamine Katz MD Work Phone: [facility] 01-18-2023 14:42-0400 Body weight 79.38 kg Lamine Katz MD Work Phone: [facility] 01-18-2023 14:42-0400 Diastolic blood pressure 68 mm[Hg] Lamine Katz MD Work Phone: [facility] 01-18-2023 14:42-0400 Heart rate 64 /min Lamine Katz MD Work Phone: [facility] 01-18-2023 14:42-0400 SaO2% (BldA) [Mass fraction] 97 % Lamine Katz MD Work Phone: [facility] 01-18-2023 14:42-0400 Systolic blood pressure 122 mm[Hg] Lamine Katz MD Work Phone: [facility] 10-31-2022 11:09-0400 Body height 177.8 cm JIM OLMOS MD [facility] 10-31-2022 11:09-0400 Body temperature 96.98 [degF] JIM OLMOS MD [facility] 10-31-2022 11:09-0400 Body weight 81.8 kg JIM OLMOS MD [facility] 10-31-2022 11:09-0400 Diastolic Blood Pressure Non-Invasive 78 1 JIM OLMOS MD [facility] 10-31-2022 11:09-0400 Heart rate 64 /min JIM OLMOS MD [facility] 10-31-2022 11:09-0400 Respiratory rate 18 /min JIM OLMOS MD [facility] 10-31-2022 11:09-0400 Systolic Blood Pressure Non-Invasive 179 1 JIM OLMOS MD [facility] 08-28-2022 10:45-0400 Body height 177.8 cm Lamine Katz MD Work Phone: [facility] 08-28-2022 10:45-0400 Body weight 81.65 kg Lamine Katz MD Work Phone: [facility] 08-28-2022 10:45-0400 Diastolic blood pressure 82 mm[Hg] Lamine Katz MD Work Phone: [facility] 08-28-2022 10:45-0400 Heart rate 68 /min Lamine Katz MD Work Phone: [facility] 08-28-2022 10:45-0400 SaO2% (BldA) [Mass fraction] 98 % Lamine Katz MD Work Phone: [facility] 08-28-2022 10:45-0400 Systolic blood pressure 150 mm[Hg] Lamine Katz MD Work Phone: [facility] 06-05-2022 14:46-0500 Diastolic blood pressure 82 mm[Hg] Apple Barnett MD Work Phone: [facility] 06-05-2022 14:46-0500 Systolic blood pressure 174 mm[Hg] Apple Barnett MD Work Phone: [facility] 06-05-2022 14:43-0500 Body height 177.8 cm Apple Barnett MD Work Phone: [facility] 06-05-2022 14:43-0500 Body weight 81.65 kg Apple Barnett MD Work Phone: [facility] 06-05-2022 14:43-0500 Heart rate 68 /min Apple Barnett MD Work Phone: [facility] 06-05-2022 14:43-0500 Respiratory rate 15 /min Apple Barnett MD Work Phone: [facility] 06-05-2022 14:43-0500 SaO2% (BldA) [Mass fraction] 98 % Apple Barnett MD Work Phone: [facility] 02-20-2022 11:06-0400 Body height 177.8 cm Apple Barnett MD Work Phone: [facility] 02-20-2022 11:06-0400 Body weight 82.56 kg Apple Barnett MD Work Phone: [facility] 02-20-2022 11:06-0400 Diastolic blood pressure 62 mm[Hg] Apple Barnett MD Work Phone: [facility] 02-20-2022 11:06-0400 Heart rate 63 /min Apple Barnett MD Work Phone: [facility] 02-20-2022 11:06-0400 Respiratory rate 15 /min Apple Barnett MD Work Phone: [facility] 02-20-2022 11:06-0400 SaO2% (BldA) [Mass fraction] 97 % Apple Barnett MD Work Phone: [facility] 02-20-2022 11:06-0400 Systolic blood pressure 144 mm[Hg] Apple Barnett MD Work Phone: [facility] 08-18-2021 09:47-0400 Diastolic blood pressure 78 mm[Hg] Apple Barnett MD Work Phone: [facility] 08-18-2021 09:47-0400 Heart rate 62 /min Apple Barnett MD Work Phone: [facility] 08-18-2021 09:47-0400 Systolic blood pressure 157 mm[Hg] Apple Barnett MD Work Phone: [facility] 08-18-2021 09:40-0400 Body height 176.5 cm Apple Barnett MD Work Phone: [facility] 08-18-2021 09:40-0400 Body weight 84.1 kg Apple Barnett MD Work Phone: [facility] 08-18-2021 09:40-0400 SaO2% (BldA) [Mass fraction] 99 % Apple Barnett MD Work Phone: [facility] 02-05-2020 13:16-0400 Body mass index (BMI) [Ratio] 28.4 kg/m2 GARNETT FEEDER-C Kenn Baltes GARNETT FEEDER Work Phone: [facility] 02-05-2020 13:16-0400 Body temperature 97.5 [degF] GARNETT FEEDER-C Kenn Baltes GARNETT FEEDER Work Phone: [facility] 02-05-2020 13:16-0400 Diastolic blood pressure 73 mm[Hg] GARNETT FEEDER-C Kenn Baltes GARNETT FEEDER Work Phone: [facility] 02-05-2020 13:16-0400 Heart rate 61 /min GARNETT FEEDER-C Kenn Baltes GARNETT FEEDER Work Phone: [facility] 02-05-2020 13:16-0400 Respiratory rate 16 /min GARNETT FEEDER-C Kenn Baltes GARNETT FEEDER Work Phone: [facility] 02-05-2020 13:16-0400 SaO2% (BldA) [Mass fraction] 98 % GARNETT FEEDER-C Kenn Baltes GARNETT FEEDER Work Phone: [facility] 02-05-2020 13:16-0400 Systolic blood pressure 164 mm[Hg] GARNETT FEEDER-C Kenn Baltes GARNETT FEEDER Work Phone: [facility] NEGATED: Highlighted [id number] 11:19-0400 BMI (Body Mass Index) 30.06 kg/m2 Norma Madison [employer]ERCIAL SALES CONSULTANT [facility] Work Phone: NEGATED: Highlighted [id number] 11:19-0400 Body weight 89.36 kg Norma Madison COMMERCIAL SALES CONSULTANT [facility] Work Phone: NEGATED: Highlighted [id number] 11:19-0400 Body weight 90 kg Norma Los COMMERCIAL SALES CONSULTANT [facility] Work Phone: NEGATED: Highlighted [id number] 11:19-0400 Height 172.72 cm Norma Madison COMMERCIAL SALES CONSULTANT [facility] Work Phone: NEGATED: Highlighted [id number] 11:-0400 Height 173 cm Norma Madison COMMERCIAL SALES CONSULTANT [facility] Work Phone: NEGATED: Highlighted [id number] 10:17-0400 BMI (Body Mass Index) 30.06 kg/m2 Missy Rusty AT [facility] Work Phone: NEGATED: Highlighted [id number] 10:17-0400 Body weight 89.36 kg Missy Rusty AT [facility] Work Phone: NEGATED: Highlighted [id number] 10:17-0400 Body weight 90 kg Missy Rusty AT [facility] Work Phone: NEGATED: Highlighted [id number] 10:17-0400 BP Diastolic 0 mm[Hg] Missy Rusty AT [facility] Work Phone: NEGATED: Highlighted [id number] 10:17-0400 BP Systolic 0 mm[Hg] Missy Rusty AT [facility] Work Phone: NEGATED: Highlighted [id number] 10:17-0400 Height 172.72 cm Missy Rusty AT [facility] Work Phone: NEGATED: Highlighted [id number] 10:17-0400 Height 173 cm Missy Ojeda AT [facility] Work Phone: NEGATED: Highlighted [id number] 10:17-0400 Pulse (Heart Rate) 0 /min Missy Ojeda AT [facility] Work Phone: Encounters Encounter Date Encounter Type Care Provider Facility Start: 10-20-2024 End: 10-20-2024 ambulatory Leona Parra MD Work Phone: [facility] Work Phone: Start: 10-20-2024 End: 10-20-2024 Patient encounter procedure Yehuda Kennedy GARNETT FEEDER-C -[facility] Work Phone: Start: 10-13-2024 End: 10-13-2024 ambulatory Leona Parra MD Work Phone: [facility] Work Phone: Start: 10-13-2024 End: 10-13-2024 Patient encounter procedure Nina Waters GARNETT FEEDER-C -[facility] Work Phone: Start: 10-13-2024 End: 10-13-2024 ambulatory Nina Waters Facility:[facility] Start: 10-02-2024 End: 10-02-2024 Patient encounter procedure Rola Blue GARNETT FEEDER-Gerry -[facility] Work Phone: Start: 10-02-2024 End: 10-02-2024 ambulatory Leona Parra Facility:[facility] Start: 09-04-2024 End: 09-04-2024 ambulatory Leona Parra Facility:[facility] Start: 09-04-2024 End: 09-04-[address] Juan Banegas MD -[facility] Work Phone: Start: 09-04-2024 End: 09-04-2024 ambulatory Loc Thorne Facility:[facility] Start: 07-19-2024 End: 07-19-2024 ambulatory Juan Banegas Facility:[facility] Start: 07-19-2024 End: 07-19-[address] Juan Banegas MD -[facility] Work Phone: Start: 07-16-2024 End: 07-16-[address] Ean Bush MD -[facility] Work Phone: Start: 07-16-2024 End: 07-16-2024 ambulatory Leona Parra Facility:[facility] Start: 07-10-2024 End: 07-10-2024 Patient encounter procedure Yehuda Kennedy GARNETT FEEDER-C -[facility] Work Phone: Start: 07-10-2024 End: 07-10-2024 ambulatory Yehuda Kennedy GARNETT FEEDER Facility:[facility] Start: 07-09-2024 End: 07-09-2024 ambulatory Kenn Turcios GARNETT FEEDER-C Work Phone: [facility] Work Phone: Start: 07-09-2024 End: 07-09-2024 Patient encounter procedure Sherri Abndar GARNETT FEEDER-C -[facility] Work Phone: Start: 07-09-2024 End: 07-09-2024 ambulatory Sherri Bandar GARNETT FEEDER Facility:[facility] Start: 06-24-2024 End: 06-24-2024 Patient encounter procedure Sherri Bandar GARNETT FEEDER-C -[facility] Work Phone: Start: 06-24-2024 End: 06-24-2024 ambulatory Sherri Bandar GARNETT FEEDER Facility:[facility] Start: 06-23-2024 End: 06-23-[address] [facility] Start: 06-23-2024 End: 06-23-2024 ambulatory Leona Parra Facility:[facility] Start: 06-17-2024 ambulatory Janine Payne Faci lity:[facility] Start: 06-17-[address] Ean Bush MD -[facility] Start: 04-29-2024 End: 04-29-2024 Refill Apple Barnett MD Work Phone: Cardiology Comment on above: Refill Request Start: 04-20-2024 End: 04-20-2024 ambulatory Juan Banegas Facility:[facility] Start: 04-20-2024 End: 04-20-[address] Juan Banegas MD -[facility] Work Phone: Start: 04-07-2024 End: 04-07-[address] Janine Payne MD -Laboratory Work Phone: Start: 04-07-2024 End: 04-07-2024 ambulatory Janine Payne Facility:[facility] Start: 02-26-2024 End: 02-26-2024 ambulatory Yehuda Kennedy NP Facility:[facility] Start: 01-19-2024 End: 01-19-2024 ambulatory Juan Banegas Facility:[facility] Start: 01-17-2024 End: 01-21-2024 ambulatory KENN BALKACIE BUYER ASSISTANT-NURSING UNIT CLERK Facility:[facility] Start: 01-17-2024 End: 01-21-2024 Outreach Lab KENN TURCIOS BUYER ASSISTANT-NURSING UNIT CLERK [facility] Start: 01-17-2024 End: 01-17-2024 ambulatory Kenn Turcios GARNETT FEEDER Facility:[facility] Start: 12-26-2023 Telephone encounter Lamine dorman MD Work Phone: Cardiology Start: 12-07-2023 End: 12-07-2023 ambulatory Loc Thorne Facility:[facility] Start: 11-27-2023 End: 12-01-2023 ambulatory KENN BALKACIE BUYER ASSISTANT-NURSING UNIT CLERK Facility:[facility] Start: 11-27-2023 End: 12-01-2023 Outreach Lab KENN TURCIOS BUYER ASSISTANT-NURSING UNIT CLERK [facility] Start: 11-23-2023 End: 11-23-2023 ambulatory Loc Thorne Facility:[facility] Start: 11-23-2023 End: 11-23-2023 ambulatory Loc Thorne Facility:[facility] Start: 11-08-2023 End: 11-08-2023 ambulatory Janine Payne Facility:[facility] Start: 10-02-2023 End: 10-02-[address] SWAPNIL SEN MD Facility:[facility] Start: 10-02-2023 End: 10-02-[address] SWAPNIL SEN MD [facility] Start: 08-20-2023 Non-patient / Non-visit GARNETT FEEDER-C R anh Baltes GARNETT FEEDER Work Phone: [facility] Work Phone: Start: 08-20-2023 Non-patient / Non-visit GARNETT FEEDER-C R anh Baltes GARNETT FEEDER Work Phone: [facility] Start: 08-19-2023 Non-patient / Non-visit GARNETT FEEDER-C R anh Baltes GARNETT FEEDER Work Phone: [facility] Work Phone: Start: 08-18-2023 Non-patient / Non-visit GARNETT FEEDER-C R anh Baltes GARNETT FEEDER Work Phone: [facility] Start: 08-18-2023 Non-patient / Non-visit GARNETT FEEDER-C R anh Baltes GARNETT FEEDER Work Phone: [facility] Work Phone: Start: 08-17-2023 Non-patient / Non-visit GARNETT FEEDER-C R anh Baltes GARNETT FEEDER Work Phone: [facility] Work Phone: Start: 08-16-2023 End: 08-20-2023 Evaluation and management of inpatient GARNETT FEEDER-C Kenn Baltes GARNETT FEEDER Work Phone: [facility] 3 Work Phone: Start: 08-16-2023 Non-patient / Non-visit GARNETT FEEDER-C R anh Arriagates GARNETT FEEDER Work Phone: [facility] Work Phone: Start: 08-15-2023 Registered Recurring GARNETT FEEDER-C Kenn Turcios GARNETT FEEDER Work Phone: [facility] Work Phone: Start: 08-15-2023 End: 08-19-2023 ambulatory KENN TURCIOS BUYER ASSISTANT-NURSING UNIT CLERK Facility:[facility] Start: 08-15-2023 End: 08-19-2023 Outreach Lab KENN ARRIAGAKACIE BUYER ASSISTANT-NURSING UNIT CLERK [facility] Start: 08-15-2023 End: 08-15-2023 ambulatory KENN ARRIAGATES BUYER ASSISTANT-NURSING UNIT CLERK Facility:[facility] Start: 08-10-2023 Non-patient / Non-visit GARNETT FEEDER-C R anh Baltes GARNETT FEEDER Work Phone: [facility] Work Phone: Start: 08-09-2023 Non-patient / Non-visit GARNETT FEEDER-C R anh Baltes GARNETT FEEDER Work Phone: [facility] Work Phone: Start: 08-08-2023 Non-patient / Non-visit GARNETT FEEDER-C R anh Baltes GARNETT FEEDER Work Phone: [facility] Work Phone: Start: 08-08-2023 Non-patient / Non-visit GARNETT FEEDER-C R anh Baltes GARNETT FEEDER Work Phone: [facility] Start: 08-07-2023 Non-patient / Non-visit GARNETT FEEDER-C R anh Baltes GARNETT FEEDER Work Phone: [facility] Work Phone: Start: 08-07-2023 End: 08-10-2023 Evaluation and management of inpatient GARNETT FEEDER-C Kenn Turcios GARNETT FEEDER Work Phone: [facility]Pro[facility] Unit Work Phone: Start: 2023 Refill Apple Barnett MD Work Phone: Cardiology Comment on above: Rx Refills Start: 07-18-2023 End: 07-18-2023 ambulatory KENN TURCIOS BUYER ASSISTANT-NURSING UNIT CLERK Facility:[facility] Start: 07-18-2023 End: 07-18-2023 Patient encounter procedure KENN TURCIOS BUYER ASSISTANT-NURSING UNIT CLERK [facility] Start: 07-02-2023 Follow-up encounter Lamine dorman MD Work Phone: [facility] Start: 07-02-2023 ICD Remote F/U Lamine marin MD Work Phone: [facility] Department Start: 06-21-2023 End: 06-21-2023 Patient encounter procedure GARNETT FEEDER-Gerry Turcios GARNETT FEEDER Work Phone: [facility] Work Phone: Start: 06-21-2023 Registered Recurring GARNETT FEEDER-Gerry Turcios GARNETT FEEDER Work Phone: [facility] Start: 06-19-2023 End: 06-19-2023 ambulatory KATE AGUIRRE Facility:[facility] Start: 06-19-2023 End: 06-19-2023 Office outpatient visit 15 minutes Kate gAuirre MD Work Phone: [facility] Comment on above: Ampullary adenoma (P rimary Dx) Start: 05-30-2023 Preprocedural examin ation done Kate Aguirre MD Work Phone: [facility] Work Phone: Start: 05-30-2023 Encounter for other preprocedural examination JAVON PINEDA [facility] Start: 05-30-2023 ambulatory KENN TURCIOS [facility] Start: 05-28-2023 End: 05-28-[address] SWAPNIL SEN MD Facility:[facility] Start: 05-28-2023 End: 05-28-[address] SWAPNIL SEN MD [facility] Start: 05-10-2023 End: 05-10-2023 Patient encounter procedure GARNETT FEEDER-C Kenn Turcios GARNETT FEEDER Work Phone: [facility] Work Phone: Start: 05-03-2023 Orders Only Kate lou MD Work Phone: [facility] Comment on above: Ampullary carcinoma (HCC) (Primary Dx) Start: 05-01-2023 End: 05-01-2023 ambulatory KATE AGUIRRE Facility:[facility] Start: 04-24-2023 Refill Apple Barnett MD Work Phone: Cardiology Comment on above: Refill Request Start: 04-24-2023 End: 04-24-2023 Patient encounter procedure GARNETT FEEDER-C Kenn Turcios GARNETT FEEDER Work Phone: [facility] Work Phone: Start: 04-20-2023 End: 04-20-2023 ambulatory GARNETT FEEDER-C Kenn Turcios GARNETT FEEDER Work Phone: [facility] Work Phone: Start: 04-20-2023 End: 04-20-2023 Patient encounter procedure GARNETT FEEDER-C Kenn Turcios GARNETT FEEDER Work Phone: [facility] Work Phone: Start: 04-18-2023 End: 04-18-2023 ambulatory KENN TURCIOS BUYER ASSISTANT-NURSING UNIT CLERK Facility:[facility] Start: 04-17-2023 Registered Recurring GARNETT FEEDER-C Kenn Turcios GARNETT FEEDER Work Phone: [facility] Start: 04-17-2023 End: 04-17-2023 Patient encounter procedure GARNETT FEEDER-C Kenn Turcios GARNETT FEEDER Work Phone: [facility] Work Phone: Start: 04-12-2023 End: 04-13-2023 Orders Only Apple Barnett MD Work Phone: Cardiology Comment on above: HFrEF (heart failure with reduced ejection fraction) (HCC) (Primary Dx) Chronic systolic (co ngestive) heart failure (HCC) (Primary Dx); Acute renal failure with acute tubular necrosis superimposed on stage 3 chronic kidney disease, unspecified whether stage 3a or 3b CKD (HCC); VT (ventricular tachycardia) (HCC); Type 2 diabetes mellitus with hyperosmolarity without coma, unspecified whether mcc insulin use (HCC); Splenic artery aneurysm (HCC); CLL (chronic lymphocytic leukemia) (HCC); Cardiomyopathy, nonischemic (HCC); Biventricular ICD (implantable cardioverter-defibrillator) in place; Subdural hematoma (HCC); LBBB (left bundle branch block); History of prostate cancer; Essential hypertension Start: 04-02-2023 Non-patient / Non-visit GARNETT FEEDER-C Araseli Turcios GARNETT FEEDER Work Phone: [facility] Work Phone: Start: 04-02-2023 Follow-up encounter Lamine dorman MD Work Phone: [facility] Start: 04-02-2023 ICD Remote F/U Lamine marin MD Work Phone: [facility] Department Start: 04-02-2023 Non-patient / Non-visit GARNETT FEEDER-C Araseli Turcios GARNETT FEEDER Work Phone: [facility] Start: 04-01-2023 Non-patient / Non-visit GARNETT FEEDER-C Araseli Turcios GARNETT FEEDER Work Phone: [facility] Start: 04-01-2023 Non-patient / Non-visit GARNETT FEEDER-C Araseli Turcios GARNETT FEEDER Work Phone: [facility] Work Phone: Start: 03-31-2023 End: 04-02-2023 Evaluation and management of inpatient GARNETT FEEDER-C Kenn Turcios GARNETT FEEDER Work Phone: [facility] Work Phone: Start: 03-31-2023 End: 04-02-2023 observation encounter GARNETT FEEDER-C Kenn Turcios GARNETT FEEDER Work Phone: [facility] Work Phone: Start: 03-31-2023 End: 03-31-2023 Patient encounter procedure GARNETT FEEDER-C Kenn Turcios GARNETT FEEDER Work Phone: [facility] Work Phone: Start: 03-27-2023 Registered Recurring GARNETT FEEDER-C Kenn Turcios GARNETT FEEDER [facility] Start: 03-22-2023 End: 03-22-2023 ambulatory KENN TURCIOS BUYER ASSISTANT-NURSING UNIT CLERK Facility:[facility] Start: 03-20-2023 End: 03-20-2023 Patient encounter procedure GARNETT FEEDER-C Kenn Turcios GARNETT FEEDER Work Phone: [facility] Work Phone: Start: 03-15-2023 Non-patient / Non-visit GARNETT FEEDER-C Araseli Turcios GARNETT FEEDER Work Phone: [facility] Work Phone: Start: 03-14-2023 Non-patient / Non-visit GARNETT FEEDER-C Araseli Arriagates GARNETT FEEDER Work Phone: [facility] Start: 03-14-2023 End: 03-14-2023 Non-patient / Non-visit GARNETT FEEDER-C Kenn Turcios GARNETT FEEDER Work Phone: [facility] Work Phone: Start: 03-13-2023 Non-patient / Non-visit GARNETT FEEDER-C R anh Baltes GARNETT FEEDER Work Phone: [facility] Start: 03-13-2023 Non-patient / Non-visit GARNETT FEEDER-C R anh Baltes GARNETT FEEDER Work Phone: [facility] Work Phone: Start: 03-12-2023 Non-patient / Non-visit GARNETT FEEDER-C R anh Arriagates GARNETT FEEDER Work Phone: [facility] Start: 03-12-2023 End: 03-15-2023 Evaluation and management of inpatient GARNETT FEEDER-C Kenn Turcios GARNETT FEEDER [facility] Work Phone: Start: 03-08-2023 Non-patient / Non-visit GARNETT FEEDER-C R anh Baltes GARNETT FEEDER Work Phone: [facility] Work Phone: Start: 03-08-2023 Telephone encounter Lamine dorman MD Work Phone: Cardiology Comment on above: Received Outside Med ical Records ([employer] Cardiology Form ) Start: 03-07-2023 Non-patient / Non-visit GARNETT FEEDER-C R anh Baltes GARNETT FEEDER Work Phone: [facility] Work Phone: Start: 03-06-2023 Non-patient / Non-visit GARNETT FEEDER-C R anh Baltes GARNETT FEEDER Work Phone: [facility] Work Phone: Start: 03-05-2023 End: 03-08-2023 Evaluation and management of inpatient GARNETT FEEDER-C Kenn Baltes GARNETT FEEDER Work Phone: [facility] Care Unit Work Phone: Start: 03-05-2023 Non-patient / Non-visit GARNETT FEEDER-C R anh Baltes GARNETT FEEDER Work Phone: [facility] Inpatient Physicians Work Phone: Start: 03-04-2023 Evaluation and manag ement of inpatient [facility] Care Unit Work Phone: Start: 03-04-2023 Non-patient / Non-visit GARNETT FEEDER-C R anh Baltes GARNETT FEEDER Work Phone: [facility] Physicians Work Phone: Start: 03-04-2023 observation encounter [facility] Work Phone: Start: 02-27-2023 End: 02-27-[address] SWAPNIL SEN MD Facility:B Start: 02-27-2023 End: 02-27-[address] SWAPNIL SEN MD [facility] Start: 02-20-2023 End: 02-20-[address] SWAPNIL SEN MD Facility:B Start: 02-07-2023 End: 02-07-2023 ambulatory KENN TURCIOS BUYER ASSISTANT-NURSING UNIT CLERK Facility:B Start: 01-26-2023 End: 01-30-2023 ambulatory KENN BALKACIE BUYER ASSISTANT-NURSING UNIT CLERK Facility:B Start: 01-26-2023 End: 01-30-2023 Outreach Lab KENN BALKACIE BUYER ASSISTANT-NURSING UNIT CLERK [facility] Start: 01-18-2023 End: 01-18-2023 ambulatory KENN TURCIOS Facility:[facility] Start: 01-18-2023 Follow-up encounter Lamine dorman MD Work Phone: [facility] Start: 01-18-2023 End: 01-18-2023 Patient encounter procedure Lamine Katz MD Work Phone: [facility] Department Comment on above: CHB (complete heart block) (HCC) (Primary Dx) Start: 01-01-2023 Follow-up encounter Lamine dorman MD Work Phone: [facility] Start: 01-01-2023 ICD Remote F/U Lamine marin MD Work Phone: [facility] Department Start: 12-15-2022 End: 12-18-2022 ambulatory KENN TURCIOS Facility:[facility] Start: 11-09-2022 End: 11-09-[address] SWAPNIL SEN MD [facility] Start: 11-08-2022 End: 11-08-2022 ambulatory [facility] Facility:[facility] Start: 11-08-2022 Follow-up encounter Lamine dorman MD Work Phone: [facility] Start: 11-08-2022 Patient encounter procedure Lamine Katz MD Work Phone: [facility] Department Start: 11-08-2022 Telephone encounter Lamine dorman MD Work Phone: Cardiology Comment on above: Patient Update; Functional Skills Tutor - Other (ICD settings) Start: 10-31-2022 End: 10-31-2022 Emergency department patient visit JIM OLMOS MD [facility] Start: 10-31-2022 End: 10-31-[address] SWAPNIL SEN MD [facility] Start: 10-13-2022 Telephone encounter Lamine dorman MD Work Phone: Cardiology Comment on above: device survey Start: 10-05-2022 End: 10-06-2022 ambulatory APPLE BARNETT Facility:[facility] Start: 09-27-2022 End: 09-27-2022 ambulatory [facility] Facility:[facility] Start: 09-26-2022 End: 09-26-2022 ambulatory [facility] Facility:[facility] Start: 09-26-2022 End: 09-27-2022 ambulatory [facility] Facility:[facility] Start: 09-25-2022 ambulatory Trista carranza Comment on above: Patient Education (/ ) Start: 09-21-2022 End: 09-21-2022 Patient encounter procedure KENN TURCIOS BUYER ASSISTANT-NURSING UNIT CLERK [facility] Start: 08-28-2022 Follow-up encounter Lamine dorman MD Work Phone: [facility] Start: 08-28-2022 End: 08-28-2022 Patient encounter procedure Lamine Katz MD Work Phone: Cardiology Comment on above: LBBB (left bundle br anch block) (Primary Dx) Start: 08-28-2022 End: 08-28-2022 ambulatory [facility] Facility:[facility] Start: 08-18-2022 End: 08-18-2022 ambulatory [facility] Facility:[facility] Start: 08-14-2022 Telephone encounter Lamine dorman MD Work Phone: Cardiology Comment on above: Schedule Surgery (CR T - D change) Start: 08-07-2022 Telephone encounter Lamine dorman MD Work Phone: Cardiology Comment on above: Patient Question (De vice Alarming) Start: 07-10-2022 Orders Only Apple Barnett MD Work Phone: Cardiology Start: 06-07-2022 Telephone encounter Linnea Valle [facility] Home Delivery Comment on above: Medication Update (E ntresto 49-51mg) Start: 06-05-2022 End: 06-06-2022 ambulatory APPLE BARNETT Facility:[facility] Start: 06-05-2022 Follow-up encounter Lamine dorman MD Work Phone: [facility] Start: 06-05-2022 End: 06-05-2022 Patient encounter procedure Lamine Katz MD Work Phone: [facility] Department Comment on above: Chronic systolic (co ngestive) heart failure (HCC) (Primary Dx); ICD (implantable cardioverter-defibrillator) battery depletion; LBBB (left bundle branch block); Subdural hematoma; VT (ventricular tachycardia); Cardiomyopathy, nonischemic (HCC); CLL (chronic lymphocytic leukemia) (HCC); Biventricular ICD (implantable cardioverter-defibrillator) in place; History of prostate cancer; Essential hypertension; Biventricular cardiac pacemaker in situ; Splenic artery aneurysm (HCC) Start: 05-24-2022 Follow-up encounter Lamine dorman MD Work Phone: [facility] Start: 05-24-2022 ICD Remote F/U Lamine mairn MD Work Phone: [facility] Department Start: 04-19-2022 Follow-up encounter Lamine dorman MD Work Phone: [facility] Start: 04-19-2022 ICD Remote F/U Lamine marin MD Work Phone: [facility] Department Start: 04-03-2022 Refill Apple Barnett MD Work Phone: Cardiology Comment on above: Rx Refills Start: 03-03-2022 Follow-up encounter Lamine dorman MD Work Phone: [facility] Start: 03-03-2022 ICD Remote F/U Lamine marin MD Work Phone: [facility] Department Start: 02-20-2022 End: 02-20-2022 Patient encounter procedure Apple Barnett MD Work Phone: Cardiology Comment on above: Chronic systolic (co ngestive) heart failure (HCC) (Primary Dx); ICD (implantable cardioverter-defibrillator) battery depletion; LBBB (left bundle branch block); Cardiomyopathy, nonischemic (HCC); VT (ventricular tachycardia); Subdural hematoma; CLL (chronic lymphocytic leukemia) (HCC); Biventricular ICD (implantable cardioverter-defibrillator) in place; Postural dizziness with presyncope; Essential hypertension; History of prostate cancer Start: 02-20-2022 End: 02-20-2022 Patient encounter procedure KENN TURCIOS APRN-NURSING UNIT CLERK [facility] Start: 12-05-2021 Follow-up encounter Lamine dorman MD Work Phone: [facility] Start: 12-05-2021 ICD Remote F/U Lamine marin MD Work Phone: [facility] Department Start: 10-17-2021 Follow-up encounter Lamine dorman MD Work Phone: [facility] Start: 10-17-2021 ICD Remote F/U Lamine marin MD Work Phone: [facility] Department Start: 08-18-2021 End: 08-18-2021 Patient encounter procedure Apple Barnett MD Work Phone: Cardiology Comment on above: Chronic systolic (co ngestive) heart failure (HCC) (Primary Dx); Chronic systolic congestive heart failure (HCC); LBBB (left bundle branch block); Cardiomyopathy, nonischemic (HCC); VT (ventricular tachycardia) (HCC); Biventricular ICD (implantable cardioverter-defibrillator) in place; Essential hypertension; CLL (chronic lymphocytic leukemia) (HCC); History of prostate cancer Start: 08-17-2021 End: 08-17-2021 Patient encounter procedure KENN TURCIOS BUYER ASSISTANT-NURSING UNIT CLERK [facility] Start: 09-30-2019 End: 09-30-2019 Patient encounter procedure Emma Ramos PA-C Work Phone: [facility] Work Phone: Start: 09-26-2019 End: 09-26-2019 Patient encounter procedure Emma HOGAN-Gerry Work Phone: [facility] Work Phone: Start: 01-23-2018 Ambulatory [facility] Facility :[facility] Start: 07-19-2017 End: 07-19-2017 Ambulatory [facility] Facility:[facility] Procedures Date Procedure Procedure Detail Performing Clinician Start: 10-13-2024 Lymphocyte percent d ifferential count Leona Parra MD Work Phone: Start: 10-13-2024 Red blood cell morphology Leona Parra MD Work Phone: Start: 10-13-2024 X-ray of chest, PA a nd lateral views Leona Parra MD Work Phone: Start: 07-09-2024 CT of abdomen without contrast Kenn Baltes GARNETT FEEDER-C Work Phone: Start: 06-23-2024 X-ray of chest, PA a nd lateral views Kenn Baltes GARNETT FEEDER-C Work Phone: Start: 08-20-2023 Viral antigen assay GARNETT FEEDER- C Kenn Baltes GARNETT FEEDER Work Phone: Start: 08-20-2023 Esophagogastroduodenoscopy GARNETT FEEDER-C Kenn Baltes GARNETT FEEDER Work Phone: Start: 08-17-2023 CT of abdomen and pe lvis with oral contrast GARNETT FEEDER-C Kenn Baltes GARNETT FEEDER Work Phone: Start: 08-16-2023 SARS-CoV-2, Influenza & RSV (PCR) GARNETT FEEDER-C Kenn Baltes GARNETT FEEDER Work Phone: Start: 08-16-2023 Plain chest X-ray GARNETT FEEDER-C Kenn Baltes GARNETT FEEDER Work Phone: Start: 08-16-2023 CT of head without contrast GARNETT FEEDER-C Kenn Baltes GARNETT FEEDER Work Phone: Start: 08-07-2023 CT angiography of ch est with contrast GARNETT FEEDER-C Kenn Baltes GARNETT FEEDER Work Phone: Start: 08-07-2023 Bacteria identified in Blood by Culture GARNETT FEEDER-C Kenn Baltes GARNETT FEEDER Work Phone: Start: 08-07-2023 SARS-CoV-2, Influenza & RSV (PCR) GARNETT FEEDER-C Kenn Baltes GARNETT FEEDER Work Phone: Start: 08-07-2023 Plain chest X-ray GARNETT FEEDER-C Kenn Baltes GARNETT FEEDER Work Phone: Start: 07-02-2023 ICD REMOTE CHECK Lamine Katz MD Work Phone: Start: 05-08-2023 Positron emission to mography with computed tomography GARNETT FEEDER-C Kenn Turcios GARNETT FEEDER Work Phone: Start: 04-20-2023 MRI of abdomen with contrast GARNETT FEEDER-C Kenn Arriagates GARNETT FEEDER Work Phone: Start: 04-12-2023 Ecg routine ecg w/le ast 12 lds i&r only [facility] Provider Start: 04-02-2023 ICD REMOTE CHECK Lamine Katz MD Work Phone: Start: 03-31-2023 Plain chest X-ray GARNETT FEEDER-C Kenn Turcios GARNETT FEEDER Work Phone: Start: 03-27-2023 Measurement of occul t blood in stool specimen using immunoassay GARNETT FEEDER-C Kenn Turcios GARNETT FEEDER Work Phone: Start: 03-14-2023 [place] operation, litholapaxy GARNETT FEEDER-C Kenn Turcios GARNETT FEEDER Work Phone: Start: 03-13-2023 Esophagogastroduodenoscopy GARNETT FEEDER-C Kenn Turcios GARNETT FEEDER Work Phone: Start: 03-12-2023 CT of abdomen and pe lvis without contrast GARNETT FEEDER-C Kenn Arriagates GARNETT FEEDER Work Phone: Start: 03-12-2023 Urine culture GARNETT FEEDER-C Kenn Arriagates GARNETT FEEDER Work Phone: Start: 03-08-2023 MRI of brain with contrast GARNETT FEEDER-C Kenn Arriagates GARNETT FEEDER Work Phone: Start: 03-06-2023 Bacteria identified in Blood by Culture GARNETT FEEDER-C Kenn Arriagates GARNETT FEEDER Work Phone: Start: 03-05-2023 US urinary tract GARNETT FEEDER-C Araseli kamara Riccardo GARNETT FEEDER Work Phone: Start: 03-04-2023 Urine culture GARNETT FEEDER-C Kenn Arriagates GARNETT FEEDER Work Phone: Start: 03-04-2023 CT of head without contrast Start: 03-04-2023 Plain chest X-ray Start: 01-18-2023 ICD CLINIC CHECK Lamine Katz MD Work Phone: Start: 01-01-2023 ICD REMOTE CHECK Lamine Katz MD Work Phone: Start: 11-08-2022 ICD CLINIC CHECK Lamine Katz MD Work Phone: Start: 09-26-2022 Antibody screen KENN SHETTY Comment on above: Order Comment: Speci men Type: BLOOD SPECIMENOrdering Facility: [facility] Address: [address] [place] [address] Performed By: #### T SCR ####CC MAIN BLOOD BANKCLIA [id number] [facility] ER [id number] [place] Start: 08-28-2022 ICD CLINIC CHECK Lamine Katz MD Work Phone: Start: 06-05-2022 ICD CLINIC CHECK Lamine Katz MD Work Phone: Start: 05-24-2022 ICD REMOTE CHECK Lamine Katz MD Work Phone: Start: 04-19-2022 ICD REMOTE CHECK Lamine Katz MD Work Phone: Start: 03-03-2022 ICD REMOTE CHECK Lamine Katz MD Work Phone: Start: 12-05-2021 ICD REMOTE CHECK Lamine Katz MD Work Phone: Start: 10-17-2021 ICD REMOTE CHECK Lamine Katz MD Work Phone: Start: 10-13-2019 Skeletal fixation procedure KENN TURCIOS BUYER ASSISTANT-NURSING UNIT CLERK Comment on above: [place] Boni Galvez MD Start: 09-30-2019 End: 09-30-2019 Blood pressure screening not performed - reason not given Emma Alfordg PA-C Work Phone: Start: 09-30-2019 End: 09-30-2019 BMI outside of normal parameters - no follow-up plan/reason not given Emma B Ramos PA-C Work Phone: Start: 09-30-2019 End: 09-30-2019 Doc fx & test/txmnt for op Emma B Armstr marilyn PA-C Work Phone: Start: 09-30-2019 End: 09-30-2019 Documentation of current medications Emma B Ramos PA-C Work Phone: Start: 09-30-2019 End: 09-30-2019 Falls plan of care not done for unspecified reasons Emma B Ramos PA-C Work Phone: Start: 09-30-2019 End: 09-30-2019 Falls risk not documented - reason not given Emma B Ramos PA-C Work Phone: Start: 09-30-2019 End: 09-30-2019 Pain assessment documented as negative - follow-up not required Emma B Ramos PA-C Work Phone: Start: 09-30-2019 End: 09-30-2019 Ptfalls assess-docd ge2>/yr Emma B Armst elvia PA-C Work Phone: Start: 09-30-2019 End: 09-30-2019 Tobacco non-user Emma B Ramos PA-C Work Phone: Start: 09-30-2019 End: 09-30-2019 WHFO CUSTOM STATIC Emma B Ramos PA-C Work Phone: Start: 09-26-2019 End: 09-26-2019 Documentation of current medications Norma Madison LPN Start: 09-26-2019 End: 09-26-2019 Blood pressure within normal parameters - no follow-up required Emma B Ramos PA-C Work Phone: Start: 09-26-2019 End: 09-26-2019 BMI outside of normal parameters - no follow-up plan/reason not given Emma B Ramos PA-C Work Phone: Start: 09-26-2019 End: 09-26-2019 Doc fx & test/txmnt for op Emma B Armstr marilyn PA-C Work Phone: Start: 09-26-2019 End: 09-26-2019 Documentation of current medications Emma B Ramos PA-C Work Phone: Start: 09-26-2019 End: 09-26-2019 Falls plan of care not done for unspecified reasons Emma B Ramos PA-C Work Phone: Start: 09-26-2019 End: 09-26-2019 Falls risk not documented - reason not given Emma B Ramos PA-C Work Phone: Start: 09-26-2019 End: 09-26-2019 Pain assessment documented as negative - follow-up not required Emma B Ramos PA-C Work Phone: Start: 09-26-2019 End: 09-26-2019 Ptfalls assess-docd ge2>/yr Emma B [place] elvia PA-C Work Phone: Start: 09-26-2019 End: 09-26-2019 Tobacco non-user Emma B Ramos PA-C Work Phone: Start: 09-26-2019 End: 09-26-2019 WHFO CUSTOM STATIC Emma B Ramos PA-C Work Phone: Colonoscopy colonoscopy Colonoscopy colonoscopy Dr. Ean Bush MD NEGATED: Highlighted rowStart: 09-30-2019 End: 09-30-2019 Documentation of current medications Norma Madison LPN NEGATED: Highlighted rowStart: 09-26-2019 End: 09-26-2019 Documentation of current medications Missy Ojeda AT Plan of Treatment Date Care Activity Detail Author Start: 09-23-2030 Urine microalbumin profile DTa P,Tdap,Td Vaccine (2 - Td or Tdap) [facility] Start: 01-13-2024 Covid-19 Vaccine ( season) Covid-19 Vaccine () [facility] Start: 01-13-2024 Influenza vaccination Influenza Vacc ine (#1) [facility] Start: 08-20-2023 Patient discharge [facility] Start: 08-17-2023 Referral to gastroenterology service [facility] Start: 08-17-2023 Following clinical p athway protocol [facility] Start: 08-17-2023 Blood chemistry [facility] Start: 08-16-2023 Following clinical p athway protocol [facility] Start: 08-16-2023 Incentive spirometry [facility] Start: 08-16-2023 Oxygen therapy [facility] Start: 08-16-2023 Ambulation without limitation [facility] Start: 08-16-2023 Assessment of risk o f venous thromboembolism [facility] Start: 08-16-2023 Insertion of cathete r into peripheral vein [facility] Start: 08-16-2023 Measuring intake and output [facility] Start: 08-16-2023 Providing care accor ding to standard [facility] Start: 08-16-2023 Referral to occupati onal therapist [facility] Start: 08-16-2023 Referral to service [facility] Start: 08-16-2023 Verification routine [facility] Start: 08-16-2023 End: 08-16-2023 [facility] Start: 08-16-2023 Hospital admission, emergency, from emergency room, medical nature [facility] Start: 08-16-2023 Admission procedure [facility] Start: 08-10-2023 Patient discharge [facility] Start: 08-08-2023 Patient referral to dietitian [facility] Start: 08-08-2023 [facility] Start: 08-08-2023 Speech therapy assessment [facility] Start: 08-08-2023 Blood chemistry [facility] Start: 08-07-2023 End: 08-07-2023 Following clinical pathway protocol [facility] Start: 08-07-2023 Assessment of risk o f venous thromboembolism [facility] Start: 08-07-2023 Elevation of affecte d extremity [facility] Start: 08-07-2023 Insertion of cathete r into peripheral vein [facility] Start: 08-07-2023 Measuring intake and output [facility] Start: 08-07-2023 Notification of physician [facility] Start: 08-07-2023 Oxygen therapy [facility] Start: 08-07-2023 Patient education [facility] Start: 08-07-2023 Providing care accor ding to standard [facility] Start: 08-07-2023 Provision of activit y privileges [facility] Start: 08-07-2023 Referral to occupati onal therapist [facility] Start: 08-07-2023 Referral to service [facility] Start: 08-07-2023 [facility] Start: 08-07-2023 Admission procedure [facility] Start: 08-07-2023 Bacteria identified in Blood by Culture Blood Culture [facility] Start: 08-07-2023 Blood culture [facility] Start: 08-07-2023 [facility] Start: 2023 DIABETES SCREEN DIABETES SCREEN [facility] Start: 05-14-2023 Advance Directive Discussion Advance Directive Discussion [facility] Start: 05-14-2023 Depression Assessment Depression Ass essment [facility] Start: 04-24-2023 Patient referral [facility] Work Phone: Start: 04-12-2023 End: 07-12-2023 Comprehensive metabolic 2000 panel - Serum or Plasma COMP METABOLIC PANEL Lab Routine HFrEF (heart failure with reduced ejection fraction) ([facility]) Expected: 04/12/2023, Expires: 07/12/2023 [facility] Work Phone: Comment on above: Expected: 04/12/2023 , Expires: 07/12/2023 Start: 04-02-2023 Patient discharge [facility] Start: 03-31-2023 Fluid restriction [facility] Start: 03-31-2023 Following clinical p athway protocol [facility] Start: 03-31-2023 Application of elast ic bandage [facility] Start: 03-31-2023 Assessment of risk o f venous thromboembolism [facility] Start: 03-31-2023 Elevation of affecte d extremity [facility] Start: 03-31-2023 Fall prevention [facility] Start: 03-31-2023 Insertion of cathete r into peripheral vein [facility] Start: 03-31-2023 Introduction of urin cesar catheter [facility] Start: 03-31-2023 Measuring intake and output [facility] Start: 03-31-2023 Notification of physician [facility] Start: 03-31-2023 Patient education [facility] Start: 03-31-2023 Providing care accor ding to standard [facility] Start: 03-31-2023 Provision of activit y privileges [facility] Start: 03-31-2023 Referral to occupati onal therapist [facility] Start: 03-31-2023 Referral to service [facility] Start: 03-31-2023 [facility] Start: 03-31-2023 Verification routine [facility] Start: 03-31-2023 Admission procedure [facility] Start: 03-31-2023 Hospital admission, emergency, from emergency room, medical nature [facility] Start: 03-31-2023 End: 03-31-2023 [facility] Start: 03-15-2023 Removal of urinary catheter [facility] Start: 03-15-2023 Patient discharge [facility] Start: 03-12-2023 [facility] Start: 03-12-2023 Following clinical p athway protocol [facility] Start: 03-12-2023 Application of intermittent pneumatic compression device [facility] Start: 03-12-2023 Admission procedure [facility] Start: 03-12-2023 Vital signs measurements [facility] Start: 03-12-2023 [facility] Start: 03-12-2023 Consultation [facility] Start: 03-12-2023 Referral to gastroenterology service [facility] Start: 03-12-2023 Blood chemistry [facility] Start: 03-12-2023 Patient referral to dietitian [facility] Start: 03-11-2023 Blood chemistry [facility] Start: 03-10-2023 Blood chemistry [facility] Start: 03-09-2023 Blood chemistry [facility] Start: 03-08-2023 Patient discharge [facility] Start: 03-08-2023 [facility] Start: 03-06-2023 Bacteria identified in Blood by Culture Blood Culture [facility] Start: 03-06-2023 End: 03-06-2023 Blood culture [facility] Start: 03-06-2023 [facility] Start: 03-05-2023 Admission procedure [facility] Start: 03-05-2023 [facility] Start: 03-05-2023 Introduction of urin cesar catheter [facility] Start: 03-05-2023 Urinary bladder resi dual urine study [facility] Start: 03-05-2023 Measuring intake and output [facility] Start: 03-04-2023 Verification routine [facility] Start: 03-04-2023 Ambulation without limitation [facility] Start: 03-04-2023 Assessment of risk o f venous thromboembolism [facility] Start: 03-04-2023 Insertion of cathete r into peripheral vein [facility] Start: 03-04-2023 Providing care accor ding to standard [facility] Start: 03-04-2023 Referral to occupati onal therapist [facility] Start: 03-04-2023 Referral to service [facility] Start: 03-04-2023 Following clinical p athway protocol [facility] Start: 03-04-2023 Verification routine [facility] Start: 03-04-2023 Admission procedure [facility] Start: 03-04-2023 Hospital admission, emergency, from emergency room, medical nature [facility] Start: 03-04-2023 Bacteria identified in Urine by Culture Urine Culture [facility] Start: 03-04-2023 End: 03-04-2023 [facility] Start: 03-04-2023 Blood chemistry [facility] Start: 01-12-2023 Covid-19 Vaccine ( season) Covid-19 Vaccine () [facility] Start: 01-12-2023 Influenza vaccination C [facility] Start: 08-21-2022 End: 02-20-2023 Echocardiography ECHO Cardiology Routine Chronic systolic (congestive) heart failure (HCC) ICD (implantable cardioverter-defibrill ator) battery depletion Expected: 08/21/2022, Expires: 02/20/2023 [facility] Work Phone: Comment on above: Expected: 08/21/2022 , Expires: 02/20/2023 Start: 05-14-2022 ADVANCE DIRECTIVE DISCUSSION ADVANCE DIRECTIVE DISCUSSION [facility] Start: 05-14-2022 DEPRESSION ASSESSMENT DEPRESSION ASS ESSMENT [facility] Start: 01-12-2022 Influenza vaccination [facility] Start: 08-18-2021 COVID-19 VACCINE (4 - Booster for Moderna series) COVID-19 VACCINE (4 - Booster for Moderna series) [facility] Start: 07-15-2021 COVID-19 VACCINE (4 - Booster for Moderna series) COVID-19 VACCINE (4 - Booster for Moderna series) [facility] Start: 07-15-2021 COVID-19 VACCINE (4 - Moderna risk series) COVID-19 VACCINE (4 - Moderna risk series) [facility] Start: 05-14-2021 ADVANCE DIRECTIVE DISCUSSION ADVANCE DIRECTIVE DISCUSSION [facility] Start: 05-14-2021 DEPRESSION ASSESSMENT DEPRESSION ASS ESSMENT [facility] Start: 09-30-2019 End: 09-30-2019 Appointment Appointment [facility] Work Phone: Start: 09-30-2019 End: 09-30-2019 Radex hand minimum 3 views XR HAND 3+ VWS-LT [facility] Work Phone: Start: 09-26-2019 End: 09-26-2019 Appointment Appointment [facility] Work Phone: Start: 09-26-2019 End: 09-26-2019 Appointment Appointment [facility] Work Phone: Start: 09-26-2019 End: 09-26-2019 Radex fingr minimum 2 views XR FINGER 2+ VWS 5TH DIGIT-RT [facility] Work Phone: Start: 09-26-2019 End: 09-26-2019 Radex hand minimum 3 views XR HAND 3+ VWS-RT [facility] Work Phone: Start: 01-01-2018 Hemoglobin A1c measurement HbA1C [facility] Start: 01-01-2018 Hemoglobin A1c/Hemoglobin.total in Blood HBA1C [facility] Start: 2013 RSV Vaccine (1 - 1-d ose 75+ series) RSV Vaccine (1 - 1-dose 75+ series) [facility] Start: 07-31-2003 PNEUMOVAX AGE 65 AND OVER WITH 5YR LOOKBACK (#1) PNEUMOVAX AGE 65 AND OVER WITH 5YR LOOKBACK (#1) [facility] Start: 1998 Hepatitis B Vaccine (1 of 3 - Risk 3-dose series) Hepatitis B Vaccine (1 of 3 - Risk 3-dose series) [facility] Start: 1998 RSV Vaccine (1 - 1-d ose 60+ series) RSV Vaccine (1 - 1-dose 60+ series) [facility] Start: 1988 SHINGRIX VACCINE (1 of 2) CARL GRIX VACCINE (1 of 2) [facility] Start: 1957 Pneumococcal Vaccine : 50+ (1 of 2 - PCV) Pneumococcal Vaccine: 50+ (1 of 2 - PCV) [facility] Start: 1957 SHINGRIX VACCINE (1 of 2) CARL GRIX VACCINE (1 of 2) [facility] Start: 1957 Urine microalbumin profile [facility] Start: 1956 Anxiety Screening Anxiety Screening [facility] Start: 1956 Depression Screening Depression Scre ening [facility] Start: 1956 Hepatitis B surface antibody level LDL CHOLESTEROL [facility] Start: 1948 3 comp foot exam completed DIABETIC FOOT EXAM [facility] Start: 1948 Diabetic foot examination Diabetic F oot Exam [facility] Start: 1948 Glaucoma screening Dilated Retinal E xam [facility] Start: 1948 Hepatitis B screening URINE ALBUMIN:CREATININE RATIO [facility] Start: 1948 Hepatitis C antibody , confirmatory test DILATED RETINAL EXAM [facility] Start: 1944 Pneumococcal Vaccine : 65+ (1 - PCV) Pneumococcal Vaccine: 65+ (1 - PCV) [facility] Start: 1944 Pneumococcal Vaccine : 65+ (1 of 2 - PCV) Pneumococcal Vaccine: 65+ (1 of 2 - PCV) [facility] Start: 1944 PNEUMOCOCCAL: 65+ (1 - PCV) PNEUMOCOCCAL: 65+ (1 - PCV) [facility] Anion gap [facility] Anion gap measurement [facility] BUN/Creatinine ratio [facility] BUN/Creatinine ratio [facility] Calcium [Mass/volume ] in Serum or Plasma [facility] Calcium [Mass/volume ] in Serum or Plasma [facility] Carbon dioxide, tota l [Moles/volume] in Serum or Plasma [facility] Carbon dioxide, tota l [Moles/volume] in Serum or Plasma [facility] CBC W Auto Different ial panel - Blood [facility] CBC W Auto Different ial panel - Blood [facility] Chloride [Moles/volu me] in Serum or Plasma [facility] Chloride [Moles/volu me] in Serum or Plasma [facility] Comprehensive metabo lic 2000 panel - Serum or Plasma [facility] Creatinine [Moles/vo lume] in Serum or Plasma [facility] Creatinine [Moles/vo lume] in Serum or Plasma [facility] End: 04-12-2024 ECG COMPLETE ECG COMPLETE ECG Routine HFrEF (heart failure with reduced ejection fraction) (HCC) 1 Occurrences starting 04/12/2023 until 04/12/2024 [facility] Work Phone: Comment on above: 1 Occurrences starti ng 04/12/2023 until 04/12/2024 ECG COMPLETE ECG COMPLETE ECG 04/12/2023 11:04 AM EST [facility] End: 04-12-2024 Echocardiography ECHO Cardiology Routine HFrEF (heart failure with reduced ejection fraction) (HCC) 1 Occurrences starting 04/12/2023 until 04/12/2024 [facility] Work Phone: Comment on above: 1 Occurrences starti ng 04/12/2023 until 04/12/2024 End: 05-03-2024 EGD - THERAPEUTIC, EUS, OR TUBE INTERVENTIONS EGD - THERAPEUTIC, EUS, OR TUBE INTERVENTIONS Endoscopy Routine Ampullary carcinoma (HCC) 1 Occurrences starting 05/03/2023 until 05/03/2024 [facility] Work Phone: Comment on above: 1 Occurrences starti ng 05/03/2023 until 05/03/2024 Erythrocyte mean corpuscular volume determination [facility] Erythrocyte mean corpuscular volume determination [facility] Ferritin [Mass/volum e] in Serum or Plasma [facility] Glucose [Mass/volume ] in Serum or Plasma [facility] Glucose [Mass/volume ] in Serum or Plasma [facility] Hematocrit [Volume Fraction] of Blood [facility] Hematocrit [Volume Fraction] of Blood [facility] Hemoglobin [Mass/vol ume] in Blood [facility] Hemoglobin [Mass/vol ume] in Blood [facility] Iron and Iron bindin g capacity panel - Serum or Plasma [facility] Lactate dehydrogenas e measurement [facility] Leukocytes [#/volume ] in Blood [facility] Leukocytes [#/volume ] in Blood [facility] Magnesium [Mass/volu me] in Serum or Plasma [facility] Mean corpuscular hemoglobin concentration determination [facility] Mean corpuscular hemoglobin concentration determination [facility] Mean corpuscular hemoglobin determination [facility] Mean corpuscular hemoglobin determination [facility] Measurement of renal function [facility] Measurement of renal function [facility] Neutrophil count [facility] Neutrophil count [facility] Neutrophil percent differential count [facility] Neutrophil percent differential count [facility] Patient Education Indwelling Uri nary Catheter Dc ED Fall Prevention [facility] Work Phone: Patient referral [facility] Work Phone: Platelets [#/volume] in Blood [facility] Platelets [#/volume] in Blood [facility] Positron emission tomography with computed tomography [facility] Potassium [Moles/vol ume] in Serum or Plasma [facility] Potassium [Moles/vol ume] in Serum or Plasma [facility] Prostate specific an tigen measurement [facility] Red blood cell count [facility] Red blood cell count [facility] Red cell distributio n width determination [facility] Red cell distributio n width determination [facility] Sodium [Moles/volume ] in Serum or Plasma [facility] Sodium [Moles/volume ] in Serum or Plasma [facility] Urea nitrogen [Mass/volume] in Serum or Plasma [facility] Urea nitrogen [Mass/volume] in Serum or Plasma [facility] Immunizations Immunization Date Immunization Notes Care Provider Segundo renteria 07-20-2022 zoster vaccine recombinant KENN BALKACIE BUYER ASSISTANT-NURSING UNIT CLERK [facility] 02-21-2022 influenza, high dose seasonal, preservative-free KENN BALKACIE BUYER ASSISTANT-NURSING UNIT CLERK [facility] 02-21-2022 influenza virus vaccine, unspecified formulation Lamine Katz MD Work Phone: [facility] 12-15-2021 zoster vaccine recombinant KENN BALKACIE BUYER ASSISTANT-NURSING UNIT CLERK [facility] 05-20-2021 COVID-19, mRNA, LNP- S, PF, 100 mcg or 50 mcg dose; Translations: [Moderna COVID-19 Vaccine] KENN BALKACIE BUYER ASSISTANT-NURSING UNIT CLERK [facility] 09-23-2020 tetanus toxoid, reduced diphtheria toxoid, and acellular pertussis vaccine, adsorbed KENN BALTES BUYER ASSISTANT-NURSING UNIT CLERK [facility] 07-14-2020 COVID-19, mRNA, LNP- S, PF, 100 mcg or 50 mcg dose; Translations: [Moderna COVID-19 Vaccine] KENN BALKACIE BUYER ASSISTANT-NURSING UNIT CLERK [facility] 06-16-2020 SARS-CoV-2 (COVID-19 ) mRNA-1273 vaccine KENN BALKACIE BUYER ASSISTANT-NURSING UNIT CLERK [facility] 04-12-2020 influenza virus vaccine, unspecified formulation KENN RICCARDO BUYER ASSISTANT-NURSING UNIT CLERK [facility] 04-12-2020 influenza, injectabl e, quadrivalent, contains preservative Apple Barnett MD Work Phone: [facility] Payers Date Payer Category Payer Medicare HUMANA MEDICARE HU[employer]NA MEDICARE PPO [id number] 2019-Present [phone] [place] [address] PPO [id number] 2019 Medicare HUMANA MEDICARE HU[employer]NA MEDICARE PPO [id number] 2019-Present [phone] [place] [address] PPO [id number] 2016 Medicare [id number] 2016 Self-pay [id number] 2014 Unknown [employer] [id number] 2003 Medicare MEDICARE PART A B [id number] 1938 Unknown [id number] [id number] 1938 Unknown [id number] .840.1.175217.3.579.2.62 1938 Unknown [id number] .0.1.917239.3.579.2.62 1938 Unknown [id number] 2.16.840.1.976095.3.579.2.627 1938 Unknown [id number] 2.16.840.1.927607.3.579.2.62 1938 Unknown [id number] 2.16.840.1.333298.3.579.2.62 1938 Unknown [id number] 2.840.1.824534.3.579.2.62 1938 Unknown [id number] 2.840.1.498259.3.579.2.62 1938 Unknown [id number] 2.840.1.155789.3.579.2.62 1938 Unknown [id number] 2.840.1.915524.3.579.2. 1938 Unknown [id number] 2.840.1.020584.3.579.2. 1938 Unknown [id number] 2.840.1.069076.3.579.2.62 1938 Unknown [id number] 2.840.1.077267.3.579.2.627 Medicare [id number] Unknown [id number] 2.840.1.092222.3.579.2.462 Unknown [id number] 2.16840.1.349653.3.579.2.462 Unknown [id number] 2.16840.1.179779.3.579.2.462 Unknown [id number] 2.16.840.1.956318.3.579.2.462 Unknown [id number] 2.16.840.1.859513.3.579.2.462 Unknown [id number] 2.16840.1.160336.3.579.2.462 Unknown [id number] 2.16840.1.622419.3.579.2.462 Unknown [id number] 2.16.840.1.529353.3.579.2.462 Unknown [id number] 2.16.840.1.691166.3.579.2.462 Unknown [id number] 2.16.840.1.739555.3.579.2.462 Unknown [id number] 2.16.840.1.312987.3.579.2.462 Unknown [id number] 2.16.840.1.200633.3.579.2.462 Unknown [id number] 2.16.840.1.489503.3.579.2.462 Unknown [id number] 2.16.840.1.918760.3.579.2.462 Unknown [id number] 2.16.840.1.154512.3.579.2.462 Unknown [id number] 2.16.840.1.946164.3.579.2.462 Unknown [id number] 2.16.840.1.093635.3.579.2.462 Unknown [id number] 2.16.840.1.942122.3.579.2.462 Unknown [id number] 2.16.840.1.498306.3.579.2.462 Unknown [id number] 2.16.840.1.117722.3.579.2.462 Unknown [id number] 2.16.840.1.797438.3.579.2.462 Unknown [id number] 2.16.840.1.157625.3.579.2.462 Social History Date Type Detail Facility Start: 03-04-2023 End: 08-16-2023 Assertion Unknown if ever smoked [facility] Work Phone: Start: 11-19-2018 End: 08-16-2023 Tobacco smoking status Never smoked tobacco (finding) [facility] Comment on above: No tobacco/smoke exp osure. Start: 1940 Sex Assigned At Male [facility] Karl Markham Start: 08-01-2021 End: 06-19-2023 Alcohol intake Current drinker of alcohol (finding) [facility] Start: 02-19-2015 History SDOH Alcohol Comment rare use [facility] Start: 07-29-2021 End: 08-08-2021 Exposure to SARS-CoV-2 (event) Unable to assess [facility] Work Phone: Start: 11-12-2021 End: 02-20-2022 Exposure to SARS-CoV-2 (event) Not sure [facility] Start: 08-28-2022 Tobacco use and exposure Smokeless tobacco non-user [facility] Start: 09-26-2022 End: 06-19-2023 History of Social function [facility] Start: 09-26-2022 End: 06-19-2023 Tobacco use panel [facility] National Score (1-100), lower number is lower risk 75 [facility] Start: 07-08-2021 Gender identity Identifies as male gender (finding) [facility] Work Phone: Start: 07-07-2021 Sexual orientation Heterosexual (fin arnie) [facility] Start: 02-05-2020 Non-smoker [facility] Start: 07-20-2024 Sex Male (finding) [facility] NEGATED: Highlighted rowStart: 09-26-2019 End: 09-26-2019 Employment detail Employment detail [facility] Work Phone: NEGATED: Highlighted rowStart: 09-30-2019 End: 09-30-2019 Employment detail Employment detail [facility] Work Phone: Medical Equipment Procedure Code Equipment Code Equipment Origin al Text Equipment Identifier Dates Coil Tornado 8-5 mm .035in [place] Embolization Fibered - [id number] Start: 08-10-2016 Comment on above: Description: splenic artery Coil Tornado 8-5 mm [place] 8.2cm Embolization Malformation Accepts .035in - [id number] Start: 08-10-2016 Comment on above: Description: splenic artery Coil Tornado 7-3 mm [place] 8cm Embolization Accepts .035in Catheter - [id number] Start: 08-10-2016 Comment on above: Description: splenic artery Particles Trmartyil l Nbca Embolization Kit Liquid System 1gm - [id number] Start: 08-10-2016 Comment on above: Description: splenic artery Device Proglide Perclose 6fr Closure Suture Mediate Knot Pusher Sterile - [id number] Start: 08-10-2016 Coil Tornado 8-5 mm [place] 8.2cm Embolization Malformation Accepts .035in - [id number] Start: 08-10-2016 Comment on above: Description: splenic artery Coil Axel 20mm .035in [place] Synthetic Fiber 14cm Embolization 2.2 Loop - [id number] Start: 08-10-2016 Comment on above: Description: splenic artery Coil Axel 14mm .035in [place] 14cm Embolization 3.2 Loop Sterile - [id number] Start: 08-10-2016 Comment on above: Description: splenic artery Coil Axel 18mm .035in [place] Synthetic Fiber 14cm Embolization 2.5 Loop - [id number] Start: 08-10-2016 Coil Axel 18mm .035in [place] Synthetic Fiber 14cm Embolization 2.5 Loop - [id number] Start: 08-10-2016 Comment on above: Description: splenic artery Coil Tornado 10- 5mm Small Standard [place] 12.5cm Embolization Accepts - [id number] Start: 08-10-2016 Comment on above: Description: splenic artery Coil Axel 18mm .035in [place] Synthetic Fiber 14cm Embolization 2.5 Loop - [id number] Start: 08-10-2016 Comment on above: Description: splenic artery Coil Tornado 8-5 mm [place] 8.2cm Embolization Malformation Accepts .035in - [id number] Start: 08-10-2016 Comment on above: Description: splenic artery Medtronic Atrial lead FDA Sta rt: 09-27-2015 Medtronic right ventricular lead FDA Start: 09-27-2015 Medtronic ventri cular lead FDA Start: 09-27-2015 Medtronic defibrillator FDA Start: 09-26-2022 Medtronic Atrial lead FDA Sta rt: 09-27-2015 Medtronic right ventricular lead FDA Start: 09-27-2015 Medtronic ventri cular lead FDA Start: 09-27-2015 Medtronic defibrillator FDA Start: 09-26-2022 Medtronic Atrial lead FDA Sta rt: 09-27-2015 Medtronic right ventricular lead FDA Start: 09-27-2015 Medtronic ventri cular lead FDA Start: 09-27-2015 Medtronic defibrillator FDA Start: 09-26-2022 Medtronic Atrial lead FDA Sta rt: 09-27-2015 Medtronic right ventricular lead FDA Start: 09-27-2015 Medtronic ventri cular lead FDA Start: 09-27-2015 Medtronic defibrillator FDA Start: 09-26-2022 Axel Embolizat ion Coils and Microcoils FDA Start: 03-17-2015 Axel Embolizat ion Coils and Microcoils FDA Start: 03-17-2015 Axel Embolizat ion Coils and Microcoils FDA Start: 03-17-2015 Axel Embolizat ion Coils and Microcoils FDA Start: 03-17-2015 Axel Embolizat ion Coils and Microcoils FDA Start: 03-17-2015 Axel Embolizat ion Coils and Microcoils FDA Start: 03-17-2015 Axel Embolizat ion Coils and Microcoils FDA Start: 03-17-2015 Axel Embolizat ion Coils and Microcoils FDA Start: 03-17-2015 Axel Embolizat ion Coils and Microcoils FDA Start: 03-17-2015 Axel Embolizat ion Coils and Microcoils FDA Start: 03-17-2015 Medtronic Atrial lead FDA Sta rt: 09-27-2015 Medtronic right ventricular lead FDA Start: 09-27-2015 Medtronic ventri cular lead FDA Start: 09-27-2015 Medtronic defibrillator FDA Start: 09-26-2022 Axel Embolizat ion Coils and Microcoils FDA Start: 03-17-2015 Axel Embolizat ion Coils and Microcoils FDA Start: 03-17-2015 Axel Embolizat ion Coils and Microcoils FDA Start: 03-17-2015 Axel Embolizat ion Coils and Microcoils FDA Start: 03-17-2015 Axel Embolizat ion Coils and Microcoils FDA Start: 03-17-2015 Axel Embolizat ion Coils and Microcoils FDA Start: 03-17-2015 Axel Embolizat ion Coils and Microcoils FDA Start: 03-17-2015 Axel Embolizat ion Coils and Microcoils FDA Start: 03-17-2015 Axel Embolizat ion Coils and Microcoils FDA Start: 03-17-2015 Axel Embolizat ion Coils and Microcoils FDA Start: 03-17-2015 Medtronic Atrial lead FDA Sta rt: 09-27-2015 Medtronic right ventricular lead FDA Start: 09-27-2015 Medtronic ventri cular lead FDA Start: 09-27-2015 Medtronic defibrillator FDA Start: 09-26-2022 Axel Embolizat ion Coils and Microcoils FDA Start: 03-17-2015 Axel Embolizat ion Coils and Microcoils FDA Start: 03-17-2015 Axel Embolizat ion Coils and Microcoils FDA Start: 03-17-2015 Axel Embolizat ion Coils and Microcoils FDA Start: 03-17-2015 Axel Embolizat ion Coils and Microcoils FDA Start: 03-17-2015 Axel Embolizat ion Coils and Microcoils FDA Start: 03-17-2015 Axel Embolizat ion Coils and Microcoils FDA Start: 03-17-2015 Axel Embolizat ion Coils and Microcoils FDA Start: 03-17-2015 Axel Embolizat ion Coils and Microcoils FDA Start: 03-17-2015 Axel Embolizat ion Coils and Microcoils FDA Start: 03-17-2015 Medtronic Atrial lead FDA Sta rt: 09-27-2015 Medtronic right ventricular lead FDA Start: 09-27-2015 Medtronic ventri cular lead FDA Start: 09-27-2015 Medtronic defibrillator FDA Start: 09-26-2022 Axel Embolizat ion Coils and Microcoils FDA Start: 03-17-2015 Axel Embolizat ion Coils and Microcoils FDA Start: 03-17-2015 Axel Embolizat ion Coils and Microcoils FDA Start: 03-17-2015 Axel Embolizat ion Coils and Microcoils FDA Start: 03-17-2015 Axel Embolizat ion Coils and Microcoils FDA Start: 03-17-2015 Axel Embolizat ion Coils and Microcoils FDA Start: 03-17-2015 Axel Embolizat ion Coils and Microcoils FDA Start: 03-17-2015 Axel Embolizat ion Coils and Microcoils FDA Start: 03-17-2015 Axel Embolizat ion Coils and Microcoils FDA Start: 03-17-2015 Axel Embolizat ion Coils and Microcoils FDA Start: 03-17-2015 Medtronic Atrial lead FDA Sta rt: 09-27-2015 Medtronic right ventricular lead FDA Start: 09-27-2015 Medtronic ventri cular lead FDA Start: 09-27-2015 Medtronic defibrillator FDA Start: 09-26-2022 Axel Embolizat ion Coils and Microcoils FDA Start: 03-17-2015 Axel Embolizat ion Coils and Microcoils FDA Start: 03-17-2015 Axle Embolizat ion Coils and Microcoils FDA Start: 03-17-2015 Axel Embolizat ion Coils and Microcoils FDA Start: 03-17-2015 Axel Embolizat ion Coils and Microcoils FDA Start: 03-17-2015 Axel Embolizat ion Coils and Microcoils FDA Start: 03-17-2015 Axel Embolizat ion Coils and Microcoils FDA Start: 03-17-2015 Axel Embolizat ion Coils and Microcoils FDA Start: 03-17-2015 Axel Embolizat ion Coils and Microcoils FDA Start: 03-17-2015 Axel Embolizat ion Coils and Microcoils FDA Start: 03-17-2015 Medtronic Atrial lead FDA Sta rt: 09-27-2015 Medtronic right ventricular lead FDA Start: 09-27-2015 Medtronic ventri cular lead FDA Start: 09-27-2015 Medtronic defibrillator FDA Start: 09-26-2022 [id number] Yuly lt Xt Hf Quad Certified Pharmacist Assistant-D [id number] Start: 09-26-2022 [id number] Capsurefix Novus [id number] Start: 09-27-2015 [id number] Edmund in Performa [id number] Start: 09-27-2015 [id number] Spr int Quattro Secure [id number] Start: 09-27-2015 Axel Embolizat ion Coils and Microcoils FDA Start: 03-17-2015 Axel Embolizat ion Coils and Microcoils FDA Start: 03-17-2015 Axel Embolizat ion Coils and Microcoils FDA Start: 03-17-2015 Axel Embolizat ion Coils and Microcoils FDA Start: 03-17-2015 Axel Embolizat ion Coils and Microcoils FDA Start: 03-17-2015 Axel Embolizat ion Coils and Microcoils FDA Start: 03-17-2015 Axel Embolizat ion Coils and Microcoils FDA Start: 03-17-2015 Axel Embolizat ion Coils and Microcoils FDA Start: 03-17-2015 Axel Embolizat ion Coils and Microcoils FDA Start: 03-17-2015 Axel Embolizat ion Coils and Microcoils FDA Start: 03-17-2015 Medtronic Atrial lead FDA Sta rt: 09-27-2015 Medtronic right ventricular lead FDA Start: 09-27-2015 Medtronic ventri cular lead FDA Start: 09-27-2015 Medtronic defibrillator FDA Start: 09-26-2022 Axel Embolizat ion Coils and Microcoils FDA Start: 03-17-2015 Axel Embolizat ion Coils and Microcoils FDA Start: 03-17-2015 Axel Embolizat ion Coils and Microcoils FDA Start: 03-17-2015 Axel Embolizat ion Coils and Microcoils FDA Start: 03-17-2015 Axel Embolizat ion Coils and Microcoils FDA Start: 03-17-2015 Axel Embolizat ion Coils and Microcoils FDA Start: 03-17-2015 Axel Embolizat ion Coils and Microcoils FDA Start: 03-17-2015 Axel Embolizat ion Coils and Microcoils FDA Start: 03-17-2015 Axel Embolizat ion Coils and Microcoils FDA Start: 03-17-2015 Axel Embolizat ion Coils and Microcoils FDA Start: 03-17-2015 Medtronic Atrial lead FDA Sta rt: 09-27-2015 Medtronic right ventricular lead FDA Start: 09-27-2015 Medtronic ventri cular lead FDA Start: 09-27-2015 Medtronic defibrillator FDA Start: 09-26-2022 Axel Embolizat ion Coils and Microcoils FDA Start: 03-17-2015 Axel Embolizat ion Coils and Microcoils FDA Start: 03-17-2015 Axel Embolizat ion Coils and Microcoils FDA Start: 03-17-2015 Axel Embolizat ion Coils and Microcoils FDA Start: 03-17-2015 Axel Embolizat ion Coils and Microcoils FDA Start: 03-17-2015 Axel Embolizat ion Coils and Microcoils FDA Start: 03-17-2015 Axel Embolizat ion Coils and Microcoils FDA Start: 03-17-2015 Axel Embolizat ion Coils and Microcoils FDA Start: 03-17-2015 Axel Embolizat ion Coils and Microcoils FDA Start: 03-17-2015 Axel Embolizat ion Coils and Microcoils FDA Start: 03-17-2015 Medtronic Atrial lead FDA Sta rt: 09-27-2015 Medtronic right ventricular lead FDA Start: 09-27-2015 Medtronic ventri cular lead FDA Start: 09-27-2015 Medtronic defibrillator FDA Start: 09-26-2022 Goals Date Patient Goal Desired Activity /State Functional Status Date Assessment Result Facility 08-20-2023 Functional status Ambulates;Up ad babar [facility] Work Phone: 08-10-2023 Functional status Bedrest [facility] Work Phone: 04-02-2023 Functional status Ambulates;Up a d babar;Bathroom Privilege [facility] Work Phone: 03-15-2023 Functional status Ambulates [facility] Work Phone: 03-08-2023 Functional status Bedrest [facility] Work Phone: 10-31-2022 Functional Status Independent Karl sandhu [facility] Mental Status Date Assessment Result Facility 08-20-2023 Cognitive function Voice/Name [facility] Work Phone: 08-16-2023 Cognitive function Level Of Cons ciousness Awake;Alert;Appropriate [facility] Work Phone: 08-10-2023 Cognitive function Voice/Name [facility] Work Phone: 04-02-2023 Cognitive function Voice/Name [facility] Work Phone: 03-31-2023 Cognitive function Level Of Cons ciousness Awake;Alert;Appropriate;Follow s Commands [facility] Work Phone: 03-15-2023 Cognitive function Level Of Cons ciousness Awake;Alert;Appropriate;Follow s Commands [facility] Work Phone: 03-14-2023 Cognitive function Voice/Name [facility] Work Phone: 03-08-2023 Cognitive function Voice/Name [facility] Work Phone: 10-31-2022 Mental Status Orientation Oriented x 4 [facility] Clinical Notes 10-16-2014 to 10-13-2024 Note Date & Type Note Facility 10-13-2024 Radiology Diagnostic study note [facility] Imaging Services [address] [place], [place] [address] Chest PA and Lateral MR#: [id number] Acct: [id number] Name: JAIME ANN Rep #: [id number] : 1940 M 84 From: Flor Grover MD PCP: Dr. Leona Parra MD Status: REG CL I Study:Chest PA and Lateral Date of Exam: 10/13/24 Exam# [id number] Ordering Dr: Wili Waters GARNETT FEEDER G[facility]ER-C PROCEDURE: CHEST PA AND LATERAL 10/13/2024 REASON FOR EXAM: COUGH, RECENT BRONCHITIS TECHNIQUE: Frontal and lateral views of the chest. COMPARISON: 06/23/2024 FINDINGS: Bibasilar subsegmental atelectasis. No definite focal consolidations. Mild pulmonary vascular congestion. Stable tmyg-rq-vxcsfbng cardiomegaly. Atherosclerotic aortic arch. Left chest pacer. No pleural effusion or pneumothorax. Extensive degenerative changes of the thoracic spine with stable multilevel compression deformities. RAD/Chest PA and Lateral IMPRESSION: Bibasilar subsegmental atelectasis. No definite focal consolidations. Mild pulmonary vascular congestion. Stable tiqs-ng-lrbegrdz cardiomegaly. Atherosclerotic Reading Location: [facility] CC: GARNETT FEEDER-C Nina Waters; Dr. Leona Parra MD ~ Manuscripts Curator: Signed [facility] 07-09-2024 Radiology Diagnostic study note [facility] Imaging Services [address] [place] [address] Abdomen without IV Contrast MR#: [id number] Acct: [id number] Name: JAIME ANN Rep #: [id number] : 1940 M 83 From: And liudmila [facility] PCP: Dr. Leona Parra MD Status: REG CL I Study:Abdomen without IV Contrast Date of Exa m: 07/09/24 Exam# [id number] Ordering Dr: Sherri Braxton NP [facility] [employer]-C PROCEDURE: Noncontrast CT of the abdomen. 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 TECHNIQUE: Contiguous unenhanced axial CT images were obtained through the abdomen. Sagittal and coronal reformats were created. COMPARISON: 08/17/2023 FINDINGS: Bones are osteopenic with degenerative changes in the spine. There is similar severe compression/vertebral plana deformity of the T12 vertebral body. There is similar posterior cortical retropulsion of T12and giukeuhg-us-kuikht central spinal canal narrowing. Evaluation of the solid organs and vascular structures is limited due to lack of intravenous contrast. Heart is not enlarged. No sizable pericardial effusion. Moderate coronary artery calcifications. Lower ribs intact. Some increased scarring or subsegmental atelectasis in the lower lobes. There is moderate enteric contrast in the stomach. Streak artifact from embolization coil in the left upper abdomen, between the posterior stomach and spleen, similar to the previous study. Multiple low-attenuation probable cysts of the liver, measuring up to 3.4 cm, not significantly changed. Probable gallstones in the gallbladder lumen without evidence of acute cholecystitis. The gallbladder undo that the common duct measures 9 mm near the level of the pancreatic head, probably not significantly different. There is a 17 mm filling defect/area of nodularity at the medial aspect 1st segment of the duodenum on image 67 of the axial images. Thisis not well evaluated on the prior study due to lack of oral contrast. No abnormally dilated bowel segments of the abdomen. Moderate colonic diverticulosis. Moderate stool in the colon. Normal appendix. The adrenal glands are unremarkable. Heterogeneous/lobulated appearance of the spleen similar to the prior study. No focal abnormality of the pancreas on the provided noncontrast images. There is similar to slightly worsened moderate dilation of the right renal collecting system and included right ureter without obstructing calculus. There is severe worsened distention of the left renal collecting system and left renal pelvis, as well as the included leftureter. The lower pelvis is not included on this study. A 3.7 cm probable proteinaceous cyst at the medial aspect of the left kidney is not significantly changed from the prior study. The abdominal aorta is normal in caliber with a moderate amount ofatherosclerotic calcification. There are either tortuous vascular structures in the upper abdomen/left retroperitoneum versus adenopathy in these locations, not significantly changed from 08/17/2023. 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 This is not well demonstrated/evaluated onthe prior study due to lack of intravenous contrast. The common duct measures 9 mm near the pancreatic head, which can be within normal limits for patient of this age. There are either tortuous vascular structures or adenopathy in the upper abdomenand left retroperitoneum, not significantly changed from the prior study. Similar moderate distention/dilation of the right renal pelvis and right ureter and worsened severe distention of the left renal pelvis and left ureter. The distal ureters are not included on this examination. No radiopaque obstructing calculus. Colonic diverticulosis, partially included. Similar lobulated heterogeneous appearance of the spleen. Embolization coil in the upper abdomen, between the posterior stomach and spleen, similar to the previousstudy. Similar hepatic cysts. One or more dose reduction techniques were used (e.g., Automated exposure control, adjustment of the mA and/or kV according to patient size, use of iterative reconstruction technique). Reading Location: [facility] CC: RENETTA Portillo; Dr. Leona Parra MD ~ Manuscripts Curator: Signed [facility] 06-24-2024 Evaluation note Diagnosis Onset Date Resolution Ampullary carcinoma chronic Febru cesar2024 2:46pm CLL (chronic lymphocytic leukemia) chronic June 24, 2024 2:46pm Iron deficiency anemia chronic Fe bruary 2024 2:46pm Prostate cancer inactive June 24, 2024 2:46pm Non-ischemic cardiomyopathy acute July 10, 2024 10:00am Cardiac 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 therapy defibrillator (MATTRESS STRIPPER-D) in place 2015 chronic July 10, 2024 10:00am CKD (chronic kidney disease) chronic July 10, 2024 10:00am Dizziness chronic July 10, 2024 10:00am Ampullary carcinoma chronic July 16, 2024 1:58pm CLL (chronic lymphocytic leukemia) chronic July 16, 2024 1:58pm Iron deficiency anemia chronic [facility] 2024 1:58pm Non-ischemic cardiomyopathy acute September 04, 2024 10:45am Cardiac 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 therapy defibrillator (MATTRESS STRIPPER-D) in place 2015 chronic September 04 10:45am LBBB (left bundle branch block) chronic September 04, 2024 10:45am Ventricular tachycardia chronic A pril 2024 10:45am Anemia acute September 04 10:46am Non-ischemic cardiomyopathy acute September 04, 2024 10:46am CLL (chronic lymphocytic leukemia) chronic September 04, 2024 10:46am Dizziness chronic September 04 10:46am Anemia acute October 02, 2024 11:24am Non-ischemic cardiomyopathy acute October 02, 2024 11:24am Cardiac 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 therapy defibrillator (MATTRESS STRIPPER-D) in place 2015 chronic October 02, 2024 11:24am Essential hypertension chronic Ma y 2024 11:24am [facility] Work Phone: 1(487) 604-705502-11-2025 Evaluation note* Diagnosis Onset Date Resolution Status Admit Date Ampullary carcinoma chronic Febru cesar2024 2:46pm CLL (chronic lymphocytic leukemia) chronic June 24, 2 025 2:46pm Iron deficiency anemia chronic Fe bruary 2024 2:46pm Prostate cancer inactive June 24, 2024 2:46pm Non-ischemic cardiomyopathy acute July 10, 2024 10:00am Cardiac 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 therapy defibrillator (MATTRESS STRIPPER-D) in place 2016 chronic July 10, 2 025 10:00am CKD (chronic kidney disease) chronic July 10, 2024 10:00am Dizziness chronic July 10, 2024 10:00am Ampullary carcinoma chronic July 16, 2024 1:58pm CLL (chronic lymphocytic leukemia) chronic July 16, 2024 1:58pm Iron deficiency anemia chronic [facility] 2024 1:58pm Non-ischemic cardiomyopathy acute September 04, 2024 10:45am Cardiac 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 therapy defibrillator (MATTRESS STRIPPER-D) in place 2015 chronic September 04, 2024 10:45am LBBB (left bundle branch block) 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 September 04, 2024 10:45am Ventricular tachycardia chronic A pril 2024 10:45am Anemia acute September 04 10:46am Non-ischemic cardiomyopathy acute September 04, 2024 10:46am CLL (chronic lymphocytic leukemia) chronic September 04, 2024 10:46am Dizziness chronic September 04 10:46am Anemia acute October 02, 2024 11:24am Non-ischemic cardiomyopathy acute October 02, 2024 11:24am Cardiac 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 therapy defibrillator (MATTRESS STRIPPER-D) in place 2016 chronic October 02, 2024 1 1:24am Essential hypertension chronic Ma y 2024 11:24am Anemia acute October 20, 2024 1:52pm Non-ischemic cardiomyopathy acute October 20, 2024 1:52pm Cardiac 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 therapy defibrillator (MATTRESS STRIPPER-D) in place 2016 chronic October 20, 2024 1 :52pm Essential hypertension chronic Ju ks 2024 1:52pm [facility] Work Phone: 1(319) 569-761302-04-2025 Evaluation note* Diagnosis Onset Date Resolution Status Admit Date CLL (chronic lymphocytic leukemia) chronic June 17 9:00am Ventricular tachycardia chronic F ebruary 2024 9:00am colonoscopy inactive June 17, 2024 9:00am Ampullary carcinoma chronic Febru cesar 2024 2:46pm CLL (chronic lymphocytic leukemia) chronic June 24, 025 2:46pm Iron deficiency anemia chronic Fe bruary 2024 2:46pm Prostate cancer inactive June 24, 2024 2:46pm Non-ischemic cardiomyopathy acute July 10, 2024 10:00am Cardiac 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 therapy defibrillator (MATTRESS STRIPPER-D) in place 2016 chronic July 10, 025 10:00am CKD (chronic kidney disease) chronic July 10, 2024 10:00am Dizziness chronic July 10, 2024 10:00am Ampullary carcinoma chronic July 16, 2024 1:58pm CLL (chronic lymphocytic leukemia) chronic July 16, 2024 1:58pm Iron deficiency anemia chronic [facility] 2024 1:58pm [facility] Work Phone: 1(429) 388-740112-17-2024 Telephone encounter Note* Telephone Encounter - Patsy Camacho - 04/29/2024 2:51 PM EST Call from patient requesting refill. Requested Prescriptions Pending Prescriptions Disp Refills sacubitril-valsartan (ENTRESTO) 49-51 mg tablet 60 tablet 11 Sig: Take 1 tablet by mouth twice daily. Patient last seen April 12, 2023 Jose Maria Camacho [facility]12-17-2024 Miscellaneous Notes* Telephone Encounter - Patsy Camacho - 04/29/2024 2:51 PM EST Call from patient requesting refill. Requested Prescriptions Pending Prescriptions Disp Refills sacubitril-valsartan (ENTRESTO) 49-51 mg tablet 60 tablet 11 Sig: Take 1 tablet by mouth twice daily. Patient last seen April 12, 2023 Jose Maria Camacho documented [facility] Note. MICRO - Microbiology PROCEDURE: Urine Culture [*1] SOURCE: Urine, Clean Catch BODY SITE: COLLECTED DATE/TIME: 01/17/2024 15:36 EDT RECEIVED DATE/TIME: 01/17/2024 19:26 EDT START DATE/TIME: 01/17/2024 19:26 EDT FREE TEXT SOURCE: FINAL REPORTS Final Report [] Verified Date/Time/Personnel: 01/18/2024 14:24 EDT 50,000 - 100,000 cfu/ml Mixed growth consistent with normal urogenital javier. Performing Locations *1: This test was performed at: [facility], [address] [place] [address], [phone] , [facility]09-05-2024 Evaluation + Plan note Future Scheduled Tests Laboratory* Basic Metabolic Panel 01/17/24 * Basic Metabolic Panel 01/01/24 * Complete Blood Count 03/26/23 [facility] 08-14-2024 Telephone encounter Note* Telephone Encounter - Manolo March RN - 12/26/2023 6:02 PM EDT Per Mr. Ann's request, I released his remote ICD transmissions/care to a local clinic [facility]08-14-2024 Miscellaneous Notes* Telephone Encounter - Manolo March RN - 12/26/2023 6:02 PM EDT Per Mr. Ann's request, I released his remote ICD transmissions/care to a local clinic * Telephone Encounter - Jael Mehta - 12/26/2023 4:43 PM EDT Pt would like to transfer care. Pt can be reached at [phone] documented in this encounter[facility]-2024 Telephone encounter Note * Telephone Encounter - Jael Mehta - 12/26/2023 4:43 PM EDT Pt would like to transfer care. Pt can be reached at [phone] [facility]07-17-2024 Note. MICRO - Microbiology PROCEDURE: Urine Culture [*1] SOURCE: Urine, Clean Catch BODY SITE: COLLECTED DATE/TIME: 11/27/2023 13:55 EDT RECEIVED DATE/TIME: 11/27/2023 18:42 EDT START DATE/TIME: 11/27/2023 18:43 EDT FREE TEXT SOURCE: FINAL REPORTS Final Report [] Verified Date/Time/Personnel: 11/28/2023 14:12 EDT 50,000 - 100,000 cfu/ml Mixed growth consistent with normal urogenital javier. Performing Locations *1: This test was performed at: [address], [facility]- , [facility] ([place])08-20-2023 Consult note Author Teressa Briceno [facility] August 20, 2023 3:32pm Note Date/Time August 20, 2023 3:32 pm [facility] Medical Records Department [address] [place] [id number] Counseling Note - Pharmacy 08/20/23 1532 MR#: [id number] Acct: [id number] Name: JAIME ANN Rep #:[id number] : 1940 83 From: Teressa Briceno PCP: RENETTA Justice Status:ADM IN Y Location: [facility] [id number] Pharmacy PA Med Reconciliation Pharmacy Service has performed discharge medication reconciliation for this patient. The patient's discharge medication list was reviewed for discrepancies and discrepancies were resolved. Medications at Discharge Home Medications cholecalciferol (vitamin D3) 25 mcg (1,000 unit) capsule (Vitamin D3) 50 mcg PO DAILY 08/09/16 carvedilol 25 mg tablet 25 mg PO BID 08/24/16 sacubitril 49 mg-valsartan 51 mg tablet (Entresto) 1 tab PO BID 08/24/22 zinc acetate 50 mg (zinc) capsule 50 mg PO DAILY 08/24/22 atorvastatin 10 mg tablet 10 mg PO DAILY 03/04/23 polysaccharide iron complex 150 mg iron capsule (Ferrex) 150 mg PO DAILY #30 caps 03/20/23 potassium chloride 10 mEq capsule,extended release 10 meq PO DAILY 08/07/23 furosemide 40 mg tablet 40 mg PO DAILY #30 tabs 08/10/23 bisacodyl 10 mg rectal suppository 10 mg MD DAILY #0 ea 08/20/23 gabapentin 100 mg capsule 100 mg PO QHS #0 caps 08/20/23 tamsulosin 0.4 mg capsule 0.4 mg PO DAILY@1730 #0 caps 08/20/23 08/20/23 1532 <Electronically signed by Teressa Briceno> Date _ Teressa Briceno Cosigner Signature (if applicable): Date CC: ~ Signed [facility] Work Phone: 1(355) 343-893304-08-2024 Discharge summary Author Kate Horton [facility] August 20, 2023 3:27pm Note Date/Time August 20, 2023 2:58 pm [facility] Medical Records Department [address] [place] [id number] Discharge Summary 08/20/23 1457 MR#: [id number] Acct: [id number] Name: JAIME ANN Rep #:[id number] : 1940 83 From: Kate Horton DO PCP: RENETTA Justice Status:ADM IN Location: [facility] [id number] Providers Date of Admission: 08/16/23 Date of Discharge: 08/20/23 Primary Care Physician: RENETTA Justice Consultations 08/17/23 18:27 Consult: Gastroenterology Routine Consulting Provider: Friend,Harpreet Reason for Consult: intractable n/v, ctap w/ po contrast pending, EGD +/- GESneeded? EMERGENT Consult: No Notified: Yes Date Notified: 08/17/23 Time Notified: 18:27 Method of Notification: via text 08/18/23 11:55 Consult: Urology Routine Consulting Provider: Janine Payne Reason for Consult: severe left and moderate right hydronephrosis EMERGENT Consult: No Notified: No Date Notified: 08/18/23 Time Notified: 11:55 Reason For Visit: N/V Diagnosis Discharge Diagnosis (1) Nausea & vomiting: Status: Acute Code(s): R11.2 - Nausea with vomiting, unspecified Qualifiers: Vomiting type: unspecified Qualified Code(s): R11.2 - Nausea with vomiting, unspecified (2) Weakness: Status: Acute Code(s): R53.1 - Weakness (3) Constipation: Status: Acute Code(s): K59.00 - Constipation, unspecified (4) Hydronephrosis: Status: Acute Code(s): N13.30 - Unspecified hydronephrosis Medications at Discharge Home Medications cholecalciferol (vitamin D3) 25 mcg (1,000 unit) capsule (Vitamin D3) 50 mcg PO DAILY 08/09/16 carvedilol 25 mg tablet 25 mg PO BID 08/24/16 sacubitril 49 mg-valsartan 51 mg tablet (Entresto) 1 tab PO BID 08/24/22 zinc acetate 50 mg (zinc) capsule 50 mg PO DAILY 08/24/22 atorvastatin 10 mg tablet 10 mg PO DAILY 03/04/23 polysaccharide iron complex 150 mg iron capsule (Ferrex) 150 mg PO DAILY #30 caps 03/20/23 potassium chloride 10 mEq capsule,extended release 10 meq PO DAILY 08/07/23 furosemide 40 mg tablet 40 mg PO DAILY #30 tabs 08/10/23 bisacodyl 10 mg rectal suppository 10 mg MD DAILY #0 ea 08/20/23 gabapentin 100 mg capsule 100 mg PO QHS #0 caps 08/20/23 tamsulosin 0.4 mg capsule 0.4 mg PO DAILY@1730 #0 caps 08/20/23 Hospital Course Procedures EGD, EKG and - (Chest x-ray/CT abdomen/CT brain) Summary of Care Provided Minutes Spent on Discharge: 37 Hospital Course: Mr. Ann is an 83-year-old white male who presented to the emergency department at [facility] on 08/16/2023 with generalized weakness, nausea, and vomiting. The patient had a recent hospitalization here from 08/07/2023 through 08/10/2023 for heart failure and was aggressively diuresed. Hedid very well and did have 1 episode of emesis on the day of discharge but indicated to us that it was not an ongoing issue. Evidently, it has been an ongoing issue and he was brought back to the emergency department due to this and generalized weakness. During that hospitalization he was complaining of drymouth so we discontinued his nortriptyline and placed him on gabapentin [id number] mg at night. The admitting physician thought that it was may be related to this however it sounds like this has been an ongoing issue prior to the initiation of gabapentin. He was having significant fatigue with exertion and had a mild dizziness failing on presentation. He was admitted to the medical floor and workup was initiated. A CT of his abdomen pelvis was obtained and he had marked distention of the bladder with severe left and moderate right hydronephrosis concerning for urinary retention, no bowel obstruction but large colonic stool burden and mild wall thickening of the gastric ascending colon that was suggestive of peristalsis. With bilateral hydronephrosis, urology was consulted and recommended continuation of Hood at the time of discharge and outpatient follow-up for further workup. He does have a history of TURP and history of retention but plan is for outpatient cystoscopy after discharge. I have asked the patient to follow-up with urology within 1 week as urology availability labs. He was placed on an aggressive bowel regimen for his constipation and we were able to get good stool output. He will be maintained on stool softeners and MiraLAX at discharge with a goal for him to be having a bowel movement every 1 to 2 days. As needed enemas and suppositories have been suggested as well for discharge. With the treatment of the above his nausea vomiting has resolved. An EGD was performed to ensure that there is no issue with his esophagus or stomach. This was performed on 08/20/2023 and found localized moderate inflammation characterized by congestion, erosions, and erythema in the gastric antrum. Biopsies were taken here and sent to pathology. The findings were consistent with chronic gastritis and no medication changes were recommended. He was asked to follow-up with gastroenterology as able for biopsy results as Dr. Hartman's availability allows after discharge. We have also asked that he follow- up with his primary care physician within 1 week afterdischarge from the longterm facility. Family was concerned about him going home due to his weakness however he did extremely well with therapy. At this point his is having issues that she has had recent back surgery and isnot able to help him so they plan [facility] until he is stable to go home again. He was started on Flomax in addition to his bowel regimen at the time of discharge. He was discharged home in stable condition on 08/20/2023. He is to continue fluid and sodium restrictionat the time of discharge. Discharge diagnoses: Nausea and vomiting-resolved Severe constipation-resolved Bilateral hydronephrosis chronic heart failure with preserved ejection fraction CKD stage IIIb CLL Chronic normocytic anemia History of bilateral hydronephrosis secondary to acute staphylococcal complicated UTI with acute urinary retention History of nephrolithiasis History of nonischemic cardiomyopathy HTN HPL History of prostate cancer History of BPH with obstruction History of orthostatic hypotension History of neuropathy Vitamin D deficiency History of subdural hematoma Physical Exam Narrative Patient said his nausea and vomiting has resolved. He is able to eat without any difficulty. Having bowel movements with no problem. Const alert, oriented x3, no apparent distress, average body habitus and no limitations; Negative for well nourished Constitutional Narrative: Elderly, white male, sitting up in bed, appears comfortable, son at bedside, nontoxic, watching television General Appearance: cooperative, comfortable, well kempt and well developed Orientation / Consciousness: awake, oriented to person, oriented to place and oriented to time Exam Limitations: no limitations Nutritional Appearance: thin HEENT normocephalic, head/scalp atraumatic and moist oral mucous membranes HEENT Narrative: Moderate hearing loss, Mallampati is 2, no thrush Eyes PERRL, EOMs intact bilaterally and conjunctivae normal Eyes Narrative: No scleral icterus Neck no lymphadenopathy, supple and no JVD Neck Narrative: Trachea midline, no thyroid enlargement Resp normal respiratory effort, no retractions, no use of accessory muscles and clearto auscultation bilaterally Auscultation: Negative for rales, rhonchi or wheezes Cardio regular rate, regular rhythm, S1 normal heart sound, S2 normal heart sound, no murmurs, no rub, no gallops and no clicks GI normal to inspection, nondistended, normoactive bowel sounds, soft to palpation and non-tender Extremity no clubbing, cyanosis or edema Extremity Narrative: Pedal pulses and radial pulses are 2+ Skin no rashes or lesions noted, no wounds, skin turgor normal and no jaundice Neuro oriented x3, CN's II-XII intact bilaterally, moves all extremities and no focal motor deficits Speech: speech normal Psych affect normal Psych Narrative: Very pleasant, jovial, interacts appropriately Medical Records Data Medical Nutrition Assessment Dietitian: Malnutrition Criteria Met Start: 08/17/23 13:12 Freq: Status: Active Protocol: Document 08/17/23 13:13 [facility] (Rec: 08/17/23 13:13 [facility] Desktop) Nutrition Malnutrition Evidence of Malnutrition Exists Yes Malnutrition (severe): Acute Illness/Injury Evidenced By Suboptimal Energy Intake ( Severe),Weight Loss (Severe) Clinical Problem Acute Disease or Injury Related Malnutrition Etiology related to GI dysfunction, therapeutic diet and inadequate energy intake Signs/Symptoms as evidenced by n/v since discharge from hospital 08/09 w / 7% wt loss and po intake meeting <75% of est nutritional needs Status Active Problem Recommendation Dietitian Recommendations/Changes Will change diet to Cardiac/ Sodium Restricted w/ Ensure Compact at meals - suggest fluid restriction if indicated by MD Available if additional diet education desired prior to d/c . Weight / BMI Weight Weight: 72.575 kg Body Mass Index (BMI) 22.9 ABG / Lab / Microbiology Data 08/20/23 04:20 08/20/23 04:20 Laboratory: Laboratory Results - last 24 hr 08/20/23 04:20: WBC 48.2 H*, RBC 3.64 L, Hgb 9.7 L, Hct 31.9 L, MCV 87.6, MCH 26.6 L, MCHC 30.4 L, RDW Std Deviation 55.8 H, RDW Coeff of Willie 17.4 H, Plt Count 213, MPV 10.6, Differential Comment SCANNED, Diff Path Review May , Sodium 144, Potassium 3.9, Chloride 109 H, Carbon Dioxide 32.0, Anion Gap 3 L, BUN 42 H, Creatinine 1.90 H, Estim Creat Clear Calc 29.18, Est GFR (MDRD) Af Amer 44 L, Est GFR (MDRD) Non-Af 36 L, BUN/Creatinine Ratio 22.1 H, Glucose 123 H, Calcium 8.8 Microbiology: Microbiology 08/16/23 12:10 Mucosa - Nose SARS-CoV-2, Influenza & RSV (PCR) - Final D/C Instructions Discharge Diet: Low fat / Low cholesterol (Sodium restriction to 2 g daily/fluidrestriction to 2 L daily) Discharge Activity: Return to Normal Activity Please Follow Up With: Janine Payne MD Meaningful Use Info Meaningful Use Diagnoses (Choose all that apply): None applicable Discharge Plan Admission Admit Date/Time: 08/16/23 13:43 Primary Reason for Your Visit: Nausea and vomiting Attending Provider: Ktae Horton Primary Care Provider: Kenn Turcios NP Consulting Providers: Lamont Castillo; Harpreet Hartman; Waylon Sanches Instructions Additional Instructions / Restrictions: 1. Hood is to stay in place until evaluated by urology Discharge Orders/Prescriptions Prescriptions: New tamsulosin 0.4 mg Capsule 0.4 mg PO DAILY@1730 Qty: 0 0RF bisacodyl 10 mg Suppository 10 mg MD DAILY Qty: 0 0RF gabapentin 100 mg Capsule 100 mg PO QHS Qty: 0 0RF Continued Entresto 49-51 mg tablet 1 tab PO BID Hold Instructions: Resume on 03/15/23. zinc acetate 50 mg (zinc) capsule 50 mg PO DAILY polysaccharide iron complex [Ferrex 150] 150 mg iron capsule 150 mg PO DAILY Qty: 30 1RF cholecalciferol (vitamin D3) [Vitamin D3] 1,000 UNIT capsule 50 mcg PO DAILY carvedilol 25 MG tablet 25 mg PO BID atorvastatin 10 mg tablet 10 mg PO DAILY potassium chloride 10 mEq capsule, extended release 10 meq PO DAILY furosemide 40 mg Tablet 40 mg PO DAILY Qty: 30 1RF Discontinued gabapentin 100 mg Capsule 200 mg PO QHS Qty: 60 1RF Referrals / Follow Up: Janine Payne MD [Med Staff - Active Staff] - Within 1 Week (Keep Hood inuntil evaluated by urology) Kenn Turcios NP, GARNETT FEEDER-C [Primary Care Provider] - Within 1 Week (After discharge from nursing facility) Disposition Disposition (needs filled in before D/C Order can be placed): [facility] Facility Charges/Coding Visit Charges Inpatient E&M: 52005 SNF Disch >30 Min 08/20/23 1527 <Electronically signed by Kate Horton DO> Cosigner Signature (if applicable): CC: RENETTA Turcios; Dr. Janine Payne MD; Dr. Kate Horton DO~ Signed [facility] Work Phone: 1(418) 923-790304-08-2024 Discharge summary Author Kate Horton [facility] August 20, 2023 2:57pm Note Date/Time August 20, 2023 2:57 pm [facility] Medical Records Department [address] [place] [address] Transfer to [facility] MR#: [id number] Acct: [id number] Name: JAIME ANN Rep #:[id number] : 1940 83 From: Kate Horton DO PCP: RENETTA Justice Status:ADM IN Certification of patient admission REQUIRED AT TIME OF ADMISSION. I CERTIFY THAT POST-HOSPITAL ECF SERVICES ARE REQUIRED TO BE GIVEN ON AN IN-PATIENT BASIS BECAUSE OF THE ABOVE NAMED PATIENT'S NEED FOR USP CARE ON A CONTINUING BASIS FOR THE CONDITION(S) FOR WHICH HE/SHE WAS RECEIVING IN-PATIENT HOSPITAL SERVICES PRIOR TO HIS/HER TRANSFER TO THE F. 08/20/23 1457<Electronically signed by Kate Horton DO> Diet Diet Order/Speech Therapy: 08/20/23 14:28 Diet: Cardiac - Heart Healthy Dietary Modifications:: Sodium Restricted Type of Dietary Supplement:: Ensure Compact Is pt able to select menu?: No Routine Orders/Code Status Enema Frequency: Daily PRN Suppository Type: Dulcolax 10mg Suppository Frequency: Daily PRN O2 Frequency: PRN Keep PO Greater than or Equal to (%): 89 Routine Lab Work: CBC (1 week) and BMP (1 week) Code Status: DNRCC-A (No intubation) Wound(s) RT INNER ARM: Wound Type: Skin Tear Suggestions for Active Care Change Position every (hours): 2 Therapies Weight Bearing: Full weight bearing Physical Therapy: Eval and Treat Occupational Therapy: Eval and Treat Problem/Diagnosis (1) Nausea & vomiting: Status: Acute Code(s): R11.2 - Nausea with vomiting, unspecified (2) Weakness: Status: Acute Code(s): R53.1 - Weakness (3) Constipation: Status: Acute Code(s): K59.00 - Constipation, unspecified (4) Hydronephrosis: Status: Acute Code(s): N13.30 - Unspecified hydronephrosis Allergies/Procedures Done in Hospital Allergies lisinopril Adverse Reaction (Unknown, Verified 08/16/23 11:36) cough Adressed with patient and he does not remeber the reaction, "it was so long ago" but he was told not to take Lisinopril Procedures: EGD and - (CT abdomen and pelvis/brain CT/chest x-ray) Type of Care/Length of Stay Estimated LOS: Convalescent Care Less Than 30 days Type of Care Needed: Skilled Rehab Potential: Good Prognosis: Good Additional Orders/Day of Discharge Day of Discharge: 08/20/23 Dietary and Speech Recommendations Dietitian Recommendations/Changes: When able to resume diet, rec Cardiac/ SodiumRestricted w/ Ensure Compact at meals - suggest fluid restriction if indicated by MD Available if additional diet education desired prior to d/c. Follow Up Care Please follow up with your Primary Care Physician in: 1 week after discharge from longterm facility Please Follow Up With: Janine Payne MD When: 1 week Discharge Plan Admission Admit Date/Time: 08/16/23 13:43 Attending Provider: Kate Horton Primary Care Provider: Kenn Turcios NP Consulting Providers: Lamont Castillo; Harpreet Hartman; Waylon Sanches Discharge Orders/Prescriptions Prescriptions: No Action Entresto 49-51 mg tablet 1 tab PO BID Hold Instructions: Resume on 03/15/23. zinc acetate 50 mg (zinc) capsule 50 mg PO DAILY polysaccharide iron complex [Ferrex 150] 150 mg iron capsule 150 mg PO DAILY Qty: 30 1RF cholecalciferol (vitamin D3) [Vitamin D3] 1,000 UNIT capsule 50 mcg PO DAILY carvedilol 25 MG tablet 25 mg PO BID atorvastatin 10 mg tablet 10 mg PO DAILY potassium chloride 10 mEq capsule, extended release 10 meq PO DAILY furosemide 40 mg Tablet 40 mg PO DAILY Qty: 30 1RF gabapentin 100 mg Capsule 200 mg PO QHS Qty: 60 1RF Referrals / Follow Up: Kenn Turcios NP, GARNETT FEEDER-C [Primary Care Provider] - (1) Nausea & vomiting Qualifiers: Vomiting type: unspecified Qualified Code(s): R11.2 - Nausea with vomiting, unspecified 08/20/23 3529 <Electronically signed by Kate Horton DO> Cosigner Signature (if applicable): CC: GARNETT FEEDER-C Kenn Turcios; Dr. Waylon Sanches DO; Dr. Lamont Castillo MD; Harpreet Hartman DO ~ [facility] Work Phone: [phone]) 732-426404-08-2024 Procedure [facility] 08-20-2023 Procedure [facility]04-07-2024 Consult note Author Harpreet Hartman [facility] August 19, 2023 2:21pm Note Date/Time August 18, 2023 3:15 pm [facility] Medical Records Department [address] [place] [address] [place] [address] Consultation - GI 08/18/23 1514 MR#: [id number] Acct: [id number] Name: JAIME ANN Rep #:[id number] : 1940 83 From: Harpreet Hartman DO PCP: RENETTA Justice Status:ADM IN Location: [facility] [id number] HPI Consult Data Date of Consult: 08/18/23 HPI Narrative Reason for Consultation: nausea and vomiting HPI Narrative: JAIME ANN, is a 83 M who presents with nausea and vomiting. He was recently admitted between 08/06 to 08/09 for acute on chronic HFrEF and had full workup done and discharged on guideline directed heart failure medications. After discharge patient feels periodic morning nausea and vomiting little amount afterhe wakes up. He was diagnosed with CLL stage 0 in 2003. He has not required therapy. He was diagnosed with Prostate Cancer stage IIA, finished Radiation therapy in July 2015 and received LHRH agonist by Dr. Payne. He [facility], found to have Iron deficiency anemia, started on Oral Iron, had nausea and vomiting so stopped. 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 MRI abdomen on 04/20/2023 showed no pancreatic mass, cysts in liver and kidneys, ?metastatic retroperitoneal node. CA19-9 on 04/17/2023 was 49. PET/CT ON 05/08/2023 was negative. He saw Surgeon at [facility]. He had an Endoscopy on 05/28/2022. He reports that the biopsy was negative. I was called to see him due to nausea vomiting. He had a CT scan of the abdomenpelvis that displayed Distended bladder with severe left and moderate right hydronephrosis concerning for urinary retention. Prosthetic radiation beads alsonoted. There was no bowel obstruction. Large colonic stool burden as can be seenwith constipation. There was also some focal mild wall thickening of the gastric ascending colon likely represents peristalsis. [facility] Medical History Back pain due to injury Cancer CKD (chronic kidney disease), stage III CLL (chronic lymphocytic leukemia) Essential hypertension HFrEF (heart failure with reduced ejection fraction) High cholesterol ICD (implantable cardioverter-defibrillator) in place Iron deficiency anemia LBBB (left bundle branch block) Myocardial infarct Non-ischemic cardiomyopathy Orthostatic hypotension Pacemaker Peripheral neuropathy Prostate cancer Restless leg syndrome Subdural hematoma Ventricular tachycardia Home Medications cholecalciferol (vitamin D3) 25 mcg (1,000 unit) capsule (Vitamin D3) 50 mcg PO DAILY 08/09/16 [History Last Taken 03/31/23] carvedilol 25 mg tablet 25 mg PO BID 08/24/16 [History Last Taken 03/04/23] sacubitril 49 mg-valsartan 51 mg tablet (Entresto) 1 tab PO BID 08/24/22 [History Last Taken 03/31/23] zinc acetate 50 mg (zinc) capsule 50 mg PO DAILY 08/24/22 [History Last Taken 03/31/23] atorvastatin 10 mg tablet 10 mg PO DAILY 03/04/23 [History Last Taken 03/30/23] polysaccharide iron complex 150 mg iron capsule (Ferrex) 150 mg PO DAILY #30 caps 03/20/23 [Rx Last Taken 03/31/23] potassium chloride 10 mEq capsule,extended release 10 meq PO DAILY 08/07/23 [History Last Taken Unknown] furosemide 40 mg tablet 40 mg PO DAILY #30 tabs 08/10/23 [Rx Last Taken Unknown] gabapentin 100 mg capsule 200 mg (2 x 100 mg) PO QHS #60 caps 08/10/23 [Rx Last Taken Unknown] Allergy/AdvReac Type Severity Reaction Status Date / Time lisinopril AdvReac Unknown cough Verified 08/16/23 11:36 Family History Mother CVA (cerebral vascular accident) Hypertension Diabetes Father Ischemic heart disease Diabetes Surgical History Cardiac 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 therapy defibrillator (MATTRESS STRIPPER-D) in place (~09/2015) History of arthroplasty of finger of left hand History of colonoscopy History of left heart catheterization (09/22/15) S/P TURP Splenic artery aneurysm Status post laser lithotripsy of ureteral calculus Social History household members: spouse Smoking Status: Never smoker alcohol intake: never substance use type: does not use caffeine: Yes Type: coffee Number of servings: 3 ROS ROS Narrative Constitutional: Reports severe fatigue and weakness. No fever. HEENT: Reports systems reviewed and no addt'l complaints, except as documented Respiratory/Chest:No acute shortness of breath or respiratory distress or wheezing. CVS: Recent admission for heart failure exacerbation. Rest described in HPI Gastrointestinal: No abdominal pain. Denies acute alteration of bowel habit. Rest as described in HPI. No hematemesis melena Genitourinary: Denies burning urination or new urinary tract symptoms Musculoskeletal: Denies acute joint pain or limited range of motion. No acute injury. Chronic arthritis Neurologic: Denies seizure-like symptoms. skin: No ulcer. No rash Endocrinology: Reports systems reviewed and no addt'l complaints, except as documented Hematologic/Lymphatic: Reports systems reviewed and no addt'l complaints, exceptas documented Rest 14 ROS are negative except as mentioned in HPI Physical Exam Const alert, oriented x3, no apparent distress and average body habitus Constitutional Narrative: no acute distress. General Appearance: cooperative and comfortable HEENT normocephalic, head/scalp atraumatic, hearing grossly normal bilaterally and nasal mucous membranes and turbinates normal Eyes PERRL, EOMs intact bilaterally and conjunctivae normal Neck full ROM Chest inspection of chest normal Resp normal respiratory effort, normal air movement, no use of accessory muscles and clear to auscultation bilaterally Cardio regular rate, regular rhythm, no murmurs and peripheral pulses 2+ throughout GI normal to inspection, nondistended, normoactive bowel sounds, soft to palpation,non-tender and non-distended no CVA tenderness Bladder / Kidney Exam: No catheter in place and bladder normal to palpation Back/Spine normal ROM Extremity normal to inspection, full ROM and no pedal edema Skin no rashes or lesions noted Neuro moves all extremities and no focal motor deficits Speech: speech normal Psych mental status grossly normal Medical Records Data Medical Nutrition Assessment Dietitian: Malnutrition Criteria Met Start: 08/17/23 13:12 Freq: Status: Active Protocol: Document 08/17/23 13:13 [facility] (Rec: 08/17/23 13:13 [facility] Desktop) Nutrition Malnutrition Evidence of Malnutrition Exists Yes Malnutrition (severe): Acute Illness/Injury Evidenced By Suboptimal Energy Intake ( Severe),Weight Loss (Severe) Clinical Problem Acute Disease or Injury Related Malnutrition Etiology related to GI dysfunction, therapeutic diet and inadequate energy intake Signs/Symptoms as evidenced by n/v since discharge from hospital 08/09 w / 7% wt loss and po intake meeting <75% of est nutritional needs Status Active Problem Recommendation Dietitian Recommendations/Changes Will change diet to Cardiac/ Sodium Restricted w/ Ensure Compact at meals - suggest fluid restriction if indicated by MD Available if additional diet education desired prior to d/c . Lab / Micro Data 08/18/23 05:30 08/18/23 05:30 Labs: Laboratory Results - last 24 hr 08/18/23 05:30: WBC 51.7 H*, RBC 3.69 L, Hgb 10.0 L, Hct 32.2 L, MCV 87.3, MCH 27.1, MCHC 31.1 L D, RDW Std Deviation 55.4 H, RDW Coeff of Willie 17.4 H, Plt Count 238, MPV 10.1, Differential Comment SCANNED, Diff Path Review September foll, Sodium 142, Potassium 3.9, Chloride 108 H, Carbon Dioxide 30.0, Anion Gap 4 L, BUN 37 H, Creatinine 1.79 H, Estim Creat Clear Calc 30.97, Est GFR (MDRD) Af Amer 47 L, Est GFR (MDRD) Non-Af 39 L, BUN/Creatinine Ratio 20.7 H, Glucose 106,Calcium 8.6 Imaging Radiology Impression Abdomen CT 08/17/23 18:26 IMPRESSION: Distended bladder with severe left and moderate right hydronephrosis concerning for urinary retention. Prosthetic radiation beads also noted. No bowel obstruction. Large colonic stool burden as can be seen with constipation. Focal mild wall thickening of the gastric ascending colon likely represents peristalsis. Electronically Signed: Eulalio Hatfield MD at 1:32 EDT , Assessment & Plan Assessment/Plan (1) Hydronephrosis: (2) Constipation: (3) Nausea & vomiting: QUALIFIERS: Vomiting type: unspecified Qualified Code(s): R11.2 -Nausea with vomiting, unspecified PLAN: Plan 82-year-old with past medical history of CLL, prostate cancer status post ration, CKD stage III and recent urinary tract infection with obstructive uropathy status post Hood and removal Urinary retention with hydronephrosis/history of prostate cancer/nausea and vomiting ? He thinks that the nausea and vomiting is due to his iron and Cipro but is also been having dizziness for the last 6 months He will undergo an upper endoscopy to make sure it is not an acute GI pathology contributing to his nausea and vomiting. On his last upper endoscopy approximately 6 months ago he was discovered to have some nodular changes in his duodenum causing a mild elevation of peristalsis with intermittent possible gastric outlet. It would make sense thathe would get this during the morning if he is building up pressure from the night. He was explained alternatives, risk, benefits include not withstanding bleeding, infection, sepsis, perforation, need for emergency to . Have an ASA of 3. Chronic systolic CHF/HTN/HLD ? Seems to be stable and not contributing to his nausea vomiting Charges/Coding Visit Charges Inpatient E&M: 07571 Init Hosp L3 08/19/23 1421 <Electronically signed by Harpreet Hartman DO> Cosigner Signature (if applicable): CC: RENETTA Trucios; Dr. Lamont Castillo MD; Harpreet Hartman DO~ Signed [facility] Work Phone: [phone]) 601-552504-07-2024 Progress note Author Waylon Sanches [facility] August 19, 2023 12:47pm Note Date/Time August 19, 2023 10:5 8am [facility] Medical Records Department [address] [place] [address] Progress Note - Hospitalist 08/19/23 1058 MR#: [id number] Acct: [id number] Name: JAIME ANN Rep #:[id number] : 1940 83 From: Waylon emerson DO PCP: Kenn Turcios GAR[facility] FEEDER-C Status:ADM IN Location: [facility] [id number] Reason for Visit Reason for Visit: Diagnoses Chronic systolic (congestive) heart failure (08/16/23) Constipation, unspecified (08/16/23) Unspecified hydronephrosis (08/16/23) Nausea with vomiting, unspecified (08/16/23) Weakness (08/16/23) Subjective Subjective No acute events overnight. Patient seen at bedside this morning. Patient and nursing staff noted that he had a large bowel movement this morning. He had Hood catheter placed yesterday afternoon and has been tolerating this without issue. He was kept n.p.o. overnight for possible scopes today, notes that he feels hungry today and denies any nausea this morning. No other acute concerns at this time. Objective Data Objective Data Vital Signs: Vital Signs Temp Pulse Resp BP Pulse Ox O2 Del Method 97.7 F L 63 16 167/77 H 97 Room Air 08/19/23 09:34 08/19/23 09:34 08/19/23 09:34 08/19/23 09:34 08/19/23 09:34 08/19/23 09:34 Oxygen Delivery Method Room Air Weight: 72.575 kg Body Mass Index (BMI) 22.9 Intake & Output: Intake and Output for Last 24 Hours 08/17/23 08/18/23 08/19/23 23:59 23:59 23:59 Intake Total 0 / 0 350 / 550 200 / 200 Output Total 375 / 375 Balance 0 / 0 350 / 550 -175 / -175 Medical Nutrition Assessment Dietitian: Malnutrition Criteria Met Start: 08/17/23 13:12 Freq: Status: Active Protocol: Document 08/17/23 13:13 [facility] (Rec: 08/17/23 13:13 [facility] Desktop) Nutrition Malnutrition Evidence of Malnutrition Exists Yes Malnutrition (severe): Acute Illness/Injury Evidenced By Suboptimal Energy Intake ( Severe),Weight Loss (Severe) Clinical Problem Acute Disease or Injury Related Malnutrition Etiology related to GI dysfunction, therapeutic diet and inadequate energy intake Signs/Symptoms as evidenced by n/v since discharge from hospital 08/09 w / 7% wt loss and po intake meeting <75% of est nutritional needs Status Active Problem Recommendation Dietitian Recommendations/Changes Will change diet to Cardiac/ Sodium Restricted w/ Ensure Compact at meals - suggest fluid restriction if indicated by MD Available if additional diet education desired prior to d/c . Lab / Micro Data 08/19/23 05:50 08/19/23 05:50 Labs: Laboratory Results - last 24 hr 08/19/23 05:50: WBC 56.7 H*, RBC 3.66 L, Hgb 9.7 L, Hct 32.0 L, MCV 87.4, MCH 26.5 L, MCHC 30.3 L, RDW Std Deviation 55.6 H, RDW Coeff of Willie 17.4 H, Plt Count 242, MPV 10.8, Differential Comment , Diff Path Review September, Sodium 143, Potassium 3.5, Chloride 109 H, Carbon Dioxide 31.0, Anion Gap 3 L, BUN 44 H, Creatinine 1.74 H, Estim Creat Clear Calc 31.86, Est GFR (MDRD) Af Amer 48 L, Est GFR (MDRD) Non-Af 40 L, BUN/Creatinine Ratio 25.3 H, Glucose 123 H, Calcium 9.0 Micro: Microbiology 08/16/23 12:10 Mucosa - Nose SARS-CoV-2, Influenza & RSV (PCR) - Final Physical Exam Const alert, oriented x3, no apparent distress and average body habitus Constitutional Narrative: Pleasant elderly male, sitting up comfortably in bed, conversing normally, no acute distress. General Appearance: cooperative and comfortable HEENT normocephalic, head/scalp atraumatic, hearing grossly normal bilaterally and nasal mucous membranes and turbinates normal Eyes PERRL, EOMs intact bilaterally and conjunctivae normal Neck full ROM Chest inspection of chest normal Resp normal respiratory effort, normal air movement, no use of accessory muscles and clear to auscultation bilaterally Cardio regular rate, regular rhythm, no murmurs and peripheral pulses 2+ throughout GI normal to inspection, nondistended, normoactive bowel sounds, soft to palpation,non-tender and non-distended no CVA tenderness Bladder / Kidney Exam: No catheter in place and bladder normal to palpation Back/Spine normal ROM Extremity normal to inspection, full ROM and no pedal edema Skin no rashes or lesions noted Neuro moves all extremities and no focal motor deficits Speech: speech normal Psych mental status grossly normal Assessment & Plan Assessment/Plan (1) Nausea & vomiting: QUALIFIERS: Vomiting type: unspecified Qualified Code(s): R11.2 -Nausea with vomiting, unspecified (2) Weakness: (3) Constipation: (4) Hydronephrosis: PLAN: Plan Patient is an 83-year-old male who presented to [facility] ED on08/16/2023 with worsening weakness at home and recurrent episodes of nausea with vomiting. 1. Recurrent episodes of nausea with vomiting suspected due to constipation Unclear etiology at this time. Reportedly has had episodes of nausea with vomiting in the mornings most days for the past few weeks prior to admission. Had similar episode a few hours after eating breakfast on morning of 08/16. Normal bowel movements during that time. No symptoms of acid reflux or dysphagia. No pain with eating or anytime after eating. Does not seem to have any offending medications on med list. CT abdomen pelvis with oral contrast on 08/16 showed large colonic stool burden likely secondary to constipation, focal mild wall thickening of gastric ascending colon likely representing peristalsis. ? GI following. Started heavy bowel regimen on 08/17 including senna/docusate 2 tablets twice daily, MiraLAX daily, Dulcolax suppository daily for 3 days. Has had a few large bowel movements with this, will continue for now. Patient okay for diet today, will make n.p.o. overnight with plan for EGD tomorrow to evaluate for possible intermittent gastric outlet obstruction. 2. Severe bilateral hydronephrosis with concern for urinary retention; history of bilateral hydronephrosis secondary to complicated UTI with nephrolithiasis CT abdomen pelvis on 08/16 showed a distended bladder with severe left and moderate right hydronephrosis concerning for urinary retention. Patient notablyhad decent urine output per nursing staff and denied any suprapubic pain, pain or discomfort with urination, CVA tenderness. Hemodynamically stable and deniedfevers or chills. UA on admit noninfectious appearing. Hood placed on 08/17, has had moderate urine output since placement. ? Urology evaluated. Unsure why patient went back into urinary retention. Recommended discharging patient with Hood catheter with close outpatient follow-up with urology. Okay to continue home Flomax and home diuretics as noted below. 3. Weakness ? PT/OT/case management following. Patient did well with therapy on 08/16, walkedseveral hundred feet with minimal assistance. However, on discussion with patient's daughter they have strong concern with him going home given his ongoing nausea with vomiting as noted above, and patient's is having back surgery soon and patient will have very minimal help at home. Currently plan for discharge to SNF even though this will require private pay. 4. HFrEF with recent hospitalization for heart failure exacerbation ? See discharge summary from 08/10/2023 for further details. Patient appeared euvolemic on admission. Chest x-ray with hyperinflation, no other abnormalities, no volume overload. BNP 616 on admit, much improved from BNP 4227 on 08/06. Continue home p.o. Lasix 40 mg daily, Coreg 25 mg twice daily, Entresto twice daily. 5. CKD stage IIIb ? Creatinine 2.05 on admit, baseline creatinine 1.8-2.2. Stable at baseline, has had adequate urine output. 6. CLL ? WBC count 57 on admit, baseline WBC count 50 to 60, leukocyte predominant. Diagnosed back in 2003, follows with Dr. Osborn in outpatient setting. Stable atbaseline. 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 Follows with Dr. Bush with oncology, last office visit 06/21/2023. 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 CA 19?9 was mildly elevated at 49 on 04/17/2023, however it improved to 34 on 06/21/2023. MRI abdomen on 04/20/2023 apparently showed no masses, PET/CT on 05/08 showed no hypermetabolic activity. Continue outpatient oncology follow-up. Chronic medical conditions: ? Chronic normocytic anemia: Hemoglobin 10.7 on admit, baseline hemoglobin 9-11. Stable at baseline. ? Hypertension: Continue home Coreg, Entresto, Lasix. ? Hyperlipidemia: Continue home statin. ? Neuropathy: Continue home gabapentin. ? History of prostate cancer: Follows with oncology, last office visit as noted above. Clinically stable, PSA normal. Continue observation. ? History of subdural hematoma DVT prophylaxis: Heparin subcu CODE STATUS: DNR CCA, DNI Expected disposition: SNF, TBD Total clinical time spent by myself addressing the patient's medical issues, reviewing all the data, and collaborating with patient's care team: 35 minutes. Charges/Coding Visit Charges Inpatient E&M: 93104 Subs Hosp L2 08/19/23 1247 <Electronically signed by Waylon Sanches DO> Cosigner Signature (if applicable): CC: ~ Signed [facility] Work Phone: 1(643) 594-934804-07-2024 Consult note Author Janine Payne [facility] August 19, 2023 8:30am Note Date/Time August 19, 2023 8:30 am [facility] Medical Records Department [address] [place] [id number] Consultation - Urology 08/19/23 0828 MR#: [id number] Acct: [id number] Name: JAIME ANN Rep #:[id number] : 1940 83 From: Janine Payne MD PCP: PO JusticeC Status:ADM IN Location: [address] HPI Consult Data Date of Consult: 08/19/23 HPI Narrative Reason for Consultation: retention HPI Narrative: JAIME ANN, is a 83 M who presents in hospital with retention of urine and bilateral hydronephrosis, hood in place, had a turp end of last year, nit sure why went back into retention, will need to be discharged w hood for outpatient work up, follow up w urology as outpatient w hood and cysto, call w questions [facility] Medical History Back pain due to injury Cancer CKD (chronic kidney disease), stage III CLL (chronic lymphocytic leukemia) Essential hypertension HFrEF (heart failure with reduced ejection fraction) High cholesterol ICD (implantable cardioverter-defibrillator) in place Iron deficiency anemia LBBB (left bundle branch block) Myocardial infarct Non-ischemic cardiomyopathy Orthostatic hypotension Pacemaker Peripheral neuropathy Prostate cancer Restless leg syndrome Subdural hematoma Ventricular tachycardia Home Medications cholecalciferol (vitamin D3) 25 mcg (1,000 unit) capsule (Vitamin D3) 50 mcg PO DAILY 08/09/16 [History Last Taken 03/31/23] carvedilol 25 mg tablet 25 mg PO BID 08/24/16 [History Last Taken 03/04/23] sacubitril 49 mg-valsartan 51 mg tablet (Entresto) 1 tab PO BID 08/24/22 [History Last Taken 03/31/23] zinc acetate 50 mg (zinc) capsule 50 mg PO DAILY 08/24/22 [History Last Taken 03/31/23] atorvastatin 10 mg tablet 10 mg PO DAILY 03/04/23 [History Last Taken 03/30/23] polysaccharide iron complex 150 mg iron capsule (Ferrex) 150 mg PO DAILY #30 caps 03/20/23 [Rx Last Taken 03/31/23] potassium chloride 10 mEq capsule,extended release 10 meq PO DAILY 08/07/23 [History Last Taken Unknown] furosemide 40 mg tablet 40 mg PO DAILY #30 tabs 08/10/23 [Rx Last Taken Unknown] gabapentin 100 mg capsule 200 mg (2 x 100 mg) PO QHS #60 caps 08/10/23 [Rx Last Taken Unknown] Allergy/AdvReac Type Severity Reaction Status Date / Time lisinopril AdvReac Unknown cough Verified 08/16/23 11:36 Family History Mother CVA (cerebral vascular accident) Hypertension Diabetes Father Ischemic heart disease Diabetes Surgical History Cardiac 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 therapy defibrillator (MATTRESS STRIPPER-D) in place (~09/2015) History of arthroplasty of finger of left hand History of colonoscopy History of left heart catheterization (09/22/15) S/P TURP Splenic artery aneurysm Status post laser lithotripsy of ureteral calculus Social History household members: spouse Smoking Status: Never smoker alcohol intake: never substance use type: does not use caffeine: Yes Type: coffee Number of servings: 3 Medical Records Data Medical Nutrition Assessment Dietitian: Malnutrition Criteria Met Start: 08/17/23 13:12 Freq: Status: Active Protocol: Document 08/17/23 13:13 SLA (Rec: 08/17/23 13:13 SLA Desktop) Nutrition Malnutrition Evidence of Malnutrition Exists Yes Malnutrition (severe): Acute Illness/Injury Evidenced By Suboptimal Energy Intake ( Severe),Weight Loss (Severe) Clinical Problem Acute Disease or Injury Related Malnutrition Etiology related to GI dysfunction, therapeutic diet and inadequate energy intake Signs/Symptoms as evidenced by n/v since discharge from hospital 08/09 w / 7% wt loss and po intake meeting <75% of est nutritional needs Status Active Problem Recommendation Dietitian Recommendations/Changes Will change diet to Cardiac/ Sodium Restricted w/ Ensure Compact at meals - suggest fluid restriction if indicated by MD Available if additional diet education desired prior to d/c . Lab / Micro Data 08/19/23 05:50 08/19/23 05:50 Labs: Laboratory Results - last 24 hr 08/19/23 05:50: WBC 56.7 H*, RBC 3.66 L, Hgb 9.7 L, Hct 32.0 L, MCV 87.4, MCH 26.5 L, MCHC 30.3 L, RDW Std Deviation 55.6 H, RDW Coeff of Willie 17.4 H, Plt Count 242, MPV 10.8, Differential Comment , Diff Path Review September, Sodium 143, Potassium 3.5, Chloride 109 H, Carbon Dioxide 31.0, Anion Gap 3 L, BUN 44 H, Creatinine 1.74 H, Estim Creat Clear Calc 31.86, Est GFR (MDRD) Af Amer 48 L, Est GFR (MDRD) Non-Af 40 L, BUN/Creatinine Ratio 25.3 H, Glucose 123 H, Calcium 9.0 08/19/23 0830 <Electronically signed by Janine Payne MD> Cosigner Signature (if applicable): CC: RENETTA Turcios; Dr. Lamont Castillo MD; Harpreet Friend, DO~ Signed [facility] Work Phone: 1(443) 388-620504-06-2024 Progress note Author Waylon Sanches [facility] August 18, 2023 12:23pm Note Date/Time August 18, 2023 11:1 6am [facility] Medical Records Department [address] [place] [address] Progress Note - Hospitalist 08/18/23 1116 MR#: [id number] Acct: [id number] Name: JAIME ANN Rep #:[id number] : 1940 83 From: Waylon emerson DO PCP: PO JusticeC Status:ADM IN Location: [facility] [id number] Reason for Visit Reason for Visit: Diagnoses Chronic systolic (congestive) heart failure (08/16/23) Nausea with vomiting, unspecified (08/16/23) Weakness (08/16/23) Subjective Subjective Patient had CT abdomen pelvis with oral contrast done yesterday evening, was found to have large colonic stool burden likely secondary to constipation, focalmild wall thickening of gastric ascending colon likely representing peristalsis,and distended bladder with severe left and moderate right hydronephrosis concerning for urinary retention. Patient seen at bedside this morning, daughter was also listening in over the phone. Patient noted that he had a small hard bowel movement this morning and he has had difficulty with having bowel movements over the past few weeks. He denied any pain or discomfort with urination or any suprapubic pain at this time. He was n.p.o. this morning for possible EGD versus small bowel follow-through study, still had a mild degree ofnausea but no episodes of vomiting, did not feel very hungry even when I saw himlater in the morning. No other acute concerns today. Objective Data Objective Data Vital Signs: Vital Signs Temp Pulse Resp BP Pulse Ox O2 Del Method 98.6 F 63 18 159/69 H 96 Room Air 08/18/23 10:00 08/18/23 10:00 08/18/23 10:00 08/18/23 10:00 08/18/23 10:00 08/18/23 10:00 Oxygen Delivery Method Room Air Weight: 72.575 kg Body Mass Index (BMI) 22.9 Intake & Output: Intake and Output for Last 24 Hours 08/16/23 08/17/23 08/18/23 23:59 23:59 23:59 Intake Total 1128.75 / 1128.75 0 / 0 Balance 1128.75 / 1128.75 0 / 0 Medical Nutrition Assessment Dietitian: Malnutrition Criteria Met Start: 08/17/23 13:12 Freq: Status: Active Protocol: Document 08/17/23 13:13 SLA (Rec: 08/17/23 13:13 [facility] Desktop) Nutrition Malnutrition Evidence of Malnutrition Exists Yes Malnutrition (severe): Acute Illness/Injury Evidenced By Suboptimal Energy Intake ( Severe),Weight Loss (Severe) Clinical Problem Acute Disease or Injury Related Malnutrition Etiology related to GI dysfunction, therapeutic diet and inadequate energy intake Signs/Symptoms as evidenced by n/v since discharge from hospital 08/09 w / 7% wt loss and po intake meeting <75% of est nutritional needs Status Active Problem Recommendation Dietitian Recommendations/Changes Will change diet to Cardiac/ Sodium Restricted w/ Ensure Compact at meals - suggest fluid restriction if indicated by MD Available if additional diet education desired prior to d/c . Lab / Micro Data 08/18/23 05:30 08/18/23 05:30 Labs: Laboratory Results - last 24 hr 08/16/23 12:00: Diff Path Review Reviewed 08/18/23 05:30: WBC 51.7 H*, RBC 3.69 L, Hgb 10.0 L, Hct 32.2 L, MCV 87.3, MCH 27.1, MCHC 31.1 L D, RDW Std Deviation 55.4 H, RDW Coeff of Willie 17.4 H, Plt Count 238, MPV 10.1, Differential Comment SCANNED, Diff Path Review May foll, Sodium 142, Potassium 3.9, Chloride 108 H, Carbon Dioxide 30.0, Anion Gap 4 L, BUN 37 H, Creatinine 1.79 H, Estim Creat Clear Calc 30.97, Est GFR (MDRD) Af Amer 47 L, Est GFR (MDRD) Non-Af 39 L, BUN/Creatinine Ratio 20.7 H, Glucose 106,Calcium 8.6 Micro: Microbiology 08/16/23 12:10 Mucosa - Nose SARS-CoV-2, Influenza & RSV (PCR) - Final Radiography Diagnostic Testing: Radiology Impression Abdomen CT 08/17/23 18:26 IMPRESSION: Distended bladder with severe left and moderate right hydronephrosis concerning for urinary retention. Prosthetic radiation beads also noted. No bowel obstruction. Large colonic stool burden as can be seen with constipation. Focal mild wall thickening of the gastric ascending colon likely represents peristalsis. Electronically Signed: Eulalio Hatfield MD at 1:32 EDT , Physical Exam Const alert, oriented x3, no apparent distress and average body habitus Constitutional Narrative: Pleasant elderly male, sitting up comfortably in bed, conversing normally, no acute distress. General Appearance: cooperative and comfortable HEENT normocephalic, head/scalp atraumatic, hearing grossly normal bilaterally and nasal mucous membranes and turbinates normal Eyes PERRL, EOMs intact bilaterally and conjunctivae normal Neck full ROM Chest inspection of chest normal Resp normal respiratory effort, normal air movement, no use of accessory muscles and clear to auscultation bilaterally Cardio regular rate, regular rhythm, no murmurs and peripheral pulses 2+ throughout GI normal to inspection, nondistended, normoactive bowel sounds, soft to palpation,non-tender and non-distended no CVA tenderness Bladder / Kidney Exam: No catheter in place and bladder normal to palpation Back/Spine normal ROM Extremity normal to inspection, full ROM and no pedal edema Skin no rashes or lesions noted Neuro moves all extremities and no focal motor deficits Speech: speech normal Psych mental status grossly normal Assessment & Plan Assessment/Plan (1) Nausea & vomiting: QUALIFIERS: Vomiting type: unspecified Qualified Code(s): R11.2 -Nausea with vomiting, unspecified (2) Weakness: (3) Constipation: (4) Hydronephrosis: PLAN: Plan Patient is an 83-year-old male who presented to [facility] ED on08/16/2023 with worsening weakness at home and recurrent episodes of nausea with vomiting. 1. Recurrent episodes of nausea with vomiting suspected due to constipation Unclear etiology at this time. Reportedly has had episodes of nausea with vomiting in the mornings most days for the past few weeks prior to admission. Had similar episode a few hours after eating breakfast on morning of 08/16. Normalbowel movements during that time. No symptoms of acid reflux or dysphagia. No pain with eating or anytime after eating. Does not seem to have any offending medications on med list. CT abdomen pelvis with oral contrast on 08/16 showed large colonic stool burden likely secondary to constipation, focal mild wall thickening of gastric ascending colon likely representing peristalsis. ? GI consulted. Started heavy bowel regimen on 08/17 including senna/docusate 2 tablets twice daily, MiraLAX daily, Dulcolax suppository daily for 3 days. Pending response, can give enemas as needed as well. Patient okay for diet, will treat constipation for now and hold on any further GI studies such as gastric emptying study or EGD for now. Appreciate GI recs. 2. Severe bilateral hydronephrosis with concern for urinary retention; history of bilateral hydronephrosis secondary to complicated UTI with nephrolithiasis CT abdomen pelvis on 08/16 showed a distended bladder with severe left and moderate right hydronephrosis concerning for urinary retention. Patient notablyhas had decent urine output per nursing staff and denies any suprapubic pain, pain or discomfort with urination, CVA tenderness. Has been hemodynamically stable and denies fevers or chills. UA on admit noninfectious appearing. ? Urology consulted. Hood placed on 08/17. Okay to continue home diuretics as noted below. Continue home Flomax. Appreciate further urology recommendations. 3. Weakness ? PT/OT/case management following. Patient did well with therapy on 08/16, walkedseveral hundred feet with minimal assistance. However, on discussion with patient's daughter they have strong concern with him going home given his ongoing nausea with vomiting as noted above, and patient's is having back surgery soon and patient will have very minimal help at home. Likely planning for SNF on discharge even if this requires private pay. Will continue to follow. 4. HFrEF with recent hospitalization for heart failure exacerbation ? See discharge summary from 08/10/2023 for further details. Patient appeared euvolemic on admission. Chest x-ray with hyperinflation, no other abnormalities, no volume overload. BNP 616 on admit, much improved from BNP 4227 on 08/06. Continue home p.o. Lasix 40 mg daily, Coreg 25 mg twice daily, Entresto twice daily. 5. CKD stage IIIb ? Creatinine 2.05 on admit, baseline creatinine 1.8-2.2. Stable at baseline. Adequate urine output reported. 6. CLL ? WBC count 57 on admit, baseline WBC count 50 to 60, leukocyte predominant. Diagnosed back in 2003, follows with Dr. Osborn in outpatient setting. Stable atbaseline. 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 Follows with Dr. Bush with oncology, last office visit 06/21/2023. 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 CA 19?9 was mildly elevated at 49 on 04/17/2023, however it improved to 34 on 06/21/2023. MRI abdomen on 04/20/2023 apparently showed no masses, PET/CT on 05/08 showed no hypermetabolic activity. Continue outpatient oncology follow-up. Chronic medical conditions: ? Chronic normocytic anemia: Hemoglobin 10.7 on admit, baseline hemoglobin 9-11. Stable at baseline. ? Hypertension: Continue home Coreg, Entresto, Lasix. ? Hyperlipidemia: Continue home statin. ? Neuropathy: Continue home gabapentin. ? History of prostate cancer: Follows with oncology, last office visit as noted above. Clinically stable, PSA normal. Continue observation. ? History of subdural hematoma DVT prophylaxis: Heparin subcu CODE STATUS: DNR CCA, DNI Expected disposition: SNF, TBD Total clinical time spent by myself addressing the patient's medical issues, reviewing all the data, and collaborating with patient's care team: 35 minutes. Charges/Coding Visit Charges Inpatient E&M: 90439 Subs Hosp L2 08/18/23 1223 <Electronically signed by Waylon Sanches DO> Cosigner Signature (if applicable): CC: ~ Signed [facility] Work Phone: [phone]) 666-434604-05-2024 Progress note Author Waylon [facility] August 17, 2023 7:46pm Note Date/Time August 17, 2023 3:59 pm [facility] Medical Records Department [address] [place] [address] Progress Note - Hospitalist 08/17/23 1559 MR#: [id number] Acct: [id number] Name: JAIME ANN Rep #:[id number] : 1940 83 From: Waylon emerson DO PCP: RENETTA Justice Status:ADM IN Location: [facility] [id number] Reason for Visit Reason for Visit: Diagnoses Chronic systolic (congestive) heart failure (08/16/23) Nausea with vomiting, unspecified (08/16/23) Weakness (08/16/23) Subjective Subjective No acute events overnight. Patient seen at bedside this morning. Sitting up comfortably in bedside chair, conversing normally, no acute distress. Patient stated that he ate some breakfast and tolerated this without issue. Denied any nausea at that time. He reported feeling somewhat weak this morning, had not worked with physical therapy yet to that point. Denied any other acute concerns. Saw patient again this afternoon and daughter was present. Was noted that patient had a significant episode of vomiting around noon. Had not eaten since breakfast and stated that he felt fairly nauseous for 15 minutes or so prior to vomiting. Has not tried eating since that episode of vomiting. Patient notablydid work with PT and OT and did quite well ambulating around the floor. In talking with daughter, she notes that the patient has had these episodes of nausea and vomiting fairly consistently over the past few weeks. He has never had this consistently before. Has had fairly normal bowel movements throughout that time. Patient states that between episodes of nausea vomiting he feels fairly well. Has been eating slightly less food than normal but initially tolerates food well, then has nausea with vomiting a few hours later. He deniesany symptoms of acid reflux. Denies any dysphagia symptoms. Denies any pain with eating or anytime after eating. No other acute concerns at this time. Objective Data Objective Data Vital Signs: Vital Signs Temp Pulse Resp BP Pulse Ox O2 Del Method 98.1 F 60 14 117/62 95 Room Air 08/17/23 14:00 08/17/23 14:00 08/17/23 14:00 08/17/23 14:00 08/17/23 14:00 08/17/23 14:00 Oxygen Delivery Method Room Air Weight: 72.575 kg Body Mass Index (BMI) 22.9 Intake & Output: Intake and Output for Last 24 Hours 08/15/23 08/16/23 08/17/23 23:59 23:59 23:59 Intake Total 1128.75 / 1128.75 0 / 0 Balance 1128.75 / 1128.75 0 / 0 Medical Nutrition Assessment Dietitian: Malnutrition Criteria Met Start: 08/17/23 13:12 Freq: Status: Active Protocol: Document 08/17/23 13:13 IVAN (Rec: 08/17/23 13:13 IVAN Desktop) Nutrition Malnutrition Evidence of Malnutrition Exists Yes Malnutrition (severe): Acute Illness/Injury Evidenced By Suboptimal Energy Intake ( Severe),Weight Loss (Severe) Clinical Problem Acute Disease or Injury Related Malnutrition Etiology related to GI dysfunction, therapeutic diet and inadequate energy intake Signs/Symptoms as evidenced by n/v since discharge from hospital 08/09 w / 7% wt loss and po intake meeting <75% of est nutritional needs Status Active Problem Recommendation Dietitian Recommendations/Changes Will change diet to Cardiac/ Sodium Restricted w/ Ensure Compact at meals - suggest fluid restriction if indicated by MD Available if additional diet education desired prior to d/c . Lab / Micro Data 08/17/23 06:10 08/17/23 06:10 Labs: Laboratory Results - last 24 hr 08/16/23 12:00: Diff Path Review Reviewed 08/17/23 06:10: WBC 55.4 H*, RBC 3.87 L, Hgb 10.1 L, Hct 34.3 L, MCV 88.6, MCH 26.1 L, MCHC 29.4 L, RDW Std Deviation 57.1 H, RDW Coeff of Willie 17.7 H, Plt Count 254, MPV 10.9, Immature Gran % (Auto) 0.300, Neut % (Auto) 9.4 L, Lymph % (Auto) 86.6 H, Campbell % (Auto) 3.0, Eos % (Auto) 0.5, Baso % (Auto) 0.2, Absolute Neuts (auto) 5.2, Absolute Lymphs (auto) 47.98 H, Nucleated RBC % 0, Differential Comment COMMENT, Diff Path Review May foll, Sodium 144, Potassium 3.5, Chloride 110 H, Carbon Dioxide 29.0, Anion Gap 5, BUN 45 H, Creatinine 1.82H, Estim Creat Clear Calc 30.46, Est GFR (MDRD) Af Amer 46 L, Est GFR (MDRD) Non-Af 38 L, BUN/Creatinine Ratio 24.7 H, Glucose 118 H, Calcium 9.1, B-Natriuretic Peptide 616.4 H Micro: Microbiology 08/16/23 12:10 Mucosa - Nose SARS-CoV-2, Influenza & RSV (PCR) - Final Physical Exam Const alert, oriented x3, no apparent distress and average body habitus Constitutional Narrative: Pleasant elderly male, sitting up comfortably in bedside chair, conversing normally, no acute distress. General Appearance: cooperative and comfortable HEENT normocephalic, head/scalp atraumatic, hearing grossly normal bilaterally and nasal mucous membranes and turbinates normal Eyes PERRL, EOMs intact bilaterally and conjunctivae normal Neck full ROM Chest inspection of chest normal Resp normal respiratory effort, normal air movement, no use of accessory muscles and clear to auscultation bilaterally Cardio regular rate, regular rhythm, no murmurs and peripheral pulses 2+ throughout GI normal to inspection, nondistended, normoactive bowel sounds, soft to palpation,non-tender and non-distended Back/Spine normal ROM Extremity normal to inspection, full ROM and no pedal edema Skin no rashes or lesions noted Neuro moves all extremities and no focal motor deficits Speech: speech normal Psych mental status grossly normal Assessment & Plan Assessment/Plan (1) Nausea & vomiting: QUALIFIERS: Vomiting type: unspecified Qualified Code(s): R11.2 -Nausea with vomiting, unspecified (2) Weakness: PLAN: Plan Patient is an 83-year-old male who presented to [facility] ED on08/16/2023 with worsening weakness at home and recurrent episodes of nausea with vomiting. 1. Recurrent episodes of nausea with vomiting Unclear etiology at this time. Reportedly has had episodes of nausea with vomiting in the mornings most days for the past few weeks prior to admission. Had similar episode a few hours after eating breakfast on morning of 08/16. Normal bowel movements during that time. No symptoms of acid reflux or dysphagia. No pain with eating or anytime after eating. Does not seem to have any offending medications on med list. ? GI consulted. CT abdomen pelvis with oral contrast ordered on 08/16. N.p.o. atmidnight for possible gastric emptying study plus or minus EGD tomorrow. 2. Weakness ? PT/OT/case management following. Patient did very well with therapy on 08/16, walked several hundred feet with minimal assistance. However, on discussion with patient's daughter they have strong concern with him going home given his recurrent episodes of nausea with vomiting as noted above, and patient's ishaving back surgery soon and patient will have very minimal help at home. Family likely planning to have patient placed in SNF on discharge, even if this requires private pay. Will continue to follow. 3. HFrEF with recent hospitalization for heart failure exacerbation ? See discharge summary from 08/10/2023 for further details. Patient appeared euvolemic on admission. Chest x-ray with hyperinflation, no other abnormalities, no volume overload. BNP 616 on admit, much improved from BNP 4227 on 08/06. Continue home p.o. Lasix 40 mg daily, Coreg 25 mg twice daily, Entresto twice daily. 4. CKD stage IIIb ? Creatinine 2.05 on admit, baseline creatinine 1.8-2.2. Stable at baseline. Adequate urine output reported. 5. CLL ? WBC count 57 on admit, baseline WBC count 52 to 62, leukocyte predominant. Diagnosed back in 2003, follows with Dr. Osborn in outpatient setting. Stable atbaseline. Chronic medical conditions: ? Chronic normocytic anemia: Hemoglobin 10.7 on admit, baseline hemoglobin 9-11. Stable at baseline. ? History of bilateral hydronephrosis secondary to complicated UTI with nephrolithiasis and urinary retention during recent hospitalization: Good urine output reported since admission. Not on any home medications for urinary retention. Stable. ? Hypertension: Continue home Coreg, Entresto, Lasix. ? Hyperlipidemia: Continue home statin. ? Neuropathy: Continue home gabapentin. ? History of prostate cancer ? History of subdural hematoma DVT prophylaxis: Heparin subcu CODE STATUS: DNR CCA, DNI Expected disposition: SNF, TBD Total clinical time spent by myself addressing the patient's medical issues, reviewing all the data, and collaborating with patient's care team: 35 minutes. Charges/Coding Visit Charges Inpatient E&M: 16307 Subs Hosp L2 08/17/231945 <Electronically signed by Waylon Sanches DO> Cosigner Signature (if applicable): CC: ~ Signed [facility] Work Phone: [phone] 694-485204-04-2024 Discharge summary Author Latesha Heredia [facility] August 16, 2023 3:45pm Note Date/Time August 16, 2023 12:0 6pm [facility] Medical Records Department [address] [place] [address] Emergency Department Summary 08/16/23 MR#: [id number] Acct: [id number] Name: JAIME ANN Rep #:[id number] : 1940 83 From: Manolo JACKSON PCP: RENETTA Justice Status:ADM IN Location: [facility] [place] [id number] HPI <RENETTA Waldrop - Last Filed: 08/16/23 13:50> History of Present Illness Chief Complaint: Weakness Narrative Narrative: Patient is a 83-year-old male with history of hypertension hyperlipidemia CHF who recently was admitted to the hospital 1 week ago for CHF exacerbation, hypoxia. Patient has been home for greater than 1 week. Per the daughter, the patient is continuing to have nausea and vomiting, patient has been having intermittent dizziness which she described as unsteadiness, however this has been ongoing for several weeks. He did see his PCP yesterday given Zofran however patient continues to feel worsening weakness. Patient denies any chest pain or shortness of breath. Per the daughter, they were very concerned with his excessive weakness in the last 24 hours and is here for evaluation. [facility] <RENETTA Waldrop - Last Filed: 08/16/23 13:50> [facility] Medical History Back pain due to injury Cancer CKD (chronic kidney disease), stage III CLL (chronic lymphocytic leukemia) Essential hypertension HFrEF (heart failure with reduced ejection fraction) High cholesterol ICD (implantable cardioverter-defibrillator) in place Iron deficiency anemia LBBB (left bundle branch block) Myocardial infarct Non-ischemic cardiomyopathy Orthostatic hypotension Pacemaker Peripheral neuropathy Prostate cancer Restless leg syndrome Subdural hematoma Ventricular tachycardia Home Medications cholecalciferol (vitamin D3) 25 mcg (1,000 unit) capsule (Vitamin D3) 50 mcg PO DAILY 08/09/16 [History Last Taken 03/31/23] carvedilol 25 mg tablet 25 mg PO BID 08/24/16 [History Last Taken 03/04/23] sacubitril 49 mg-valsartan 51 mg tablet (Entresto) 1 tab PO BID 08/24/22 [History Last Taken 03/31/23] zinc acetate 50 mg (zinc) capsule 50 mg PO DAILY 08/24/22 [History Last Taken 03/31/23] atorvastatin 10 mg tablet 10 mg PO DAILY 03/04/23 [History Last Taken 03/30/23] polysaccharide iron complex 150 mg iron capsule (Ferrex) 150 mg PO DAILY #30 caps 03/20/23 [Rx Last Taken 03/31/23] potassium chloride 10 mEq capsule,extended release 10 meq PO DAILY 08/07/23 [History Last Taken Unknown] furosemide 40 mg tablet 40 mg PO DAILY #30 tabs 08/10/23 [Rx Last Taken Unknown] gabapentin 100 mg capsule 200 mg (2 x 100 mg) PO QHS #60 caps 08/10/23 [Rx Last Taken Unknown] Allergy/AdvReac Type Severity Reaction Status Date / Time lisinopril AdvReac Unknown cough Verified 08/16/23 11:36 Family History Mother CVA (cerebral vascular accident) Hypertension Diabetes Father Ischemic heart disease Diabetes Surgical History Cardiac 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 therapy defibrillator (MATTRESS STRIPPER-D) in place (~09/2015) History of arthroplasty of finger of left hand History of colonoscopy History of left heart catheterization (09/22/15) S/P TURP Splenic artery aneurysm Status post laser lithotripsy of ureteral calculus Social History household members: spouse Smoking Status: Never smoker alcohol intake: never substance use type: does not use caffeine: Yes Type: coffee Number of servings: 3 ROS <RENETTA Waldrop - Last Filed: 08/16/23 13:50> ROS ED ROS Narrative Constitutional: Negative for fever, chills, weight loss. Positive for generalized weakness Eyes: Negative for vision loss, vision change, double vision ENT: Negative for any sore throat, ear pain, congestion Cardiovascular: Negative for any chest pain, tightness, palpitations Respiratory: Negative for any cough, sputum production, hemoptysis, dyspnea, dyspnea on exertion, orthopnea Gastrointestinal: Negative for any abdominal pain, diarrhea, constipation, bloodin stool, blood in vomit. Positive for nausea and vomiting : Negative for any urinary frequency, dysuria, retention, blood in urine Muscle skeletal: Negative for any neck pain, back pain Neurological: Negative for any headache, syncope, dizziness Skin: Negative for any rashes, itching, abrasions, lacerations Psychiatric: Negative for any depression, anxiety, stress, suicidal ideation, homicidal ideation Hematologic: Negative for any excessive bruising, easy bleeding EXAM <RENETTA Waldrop - Last Filed: 08/16/23 13:50> Physical Exam Narrative Exam Narrative: Vital signs reviewed. Patient is alert and orient x 4. HEET: Head normocephalic atraumatic, TMs clear bilaterally. Posterior pharynx is clear, dry mucous membranes. Nares clear bilaterally. Neck: Supple with no lymphadenopathy or tenderness. No signs of meningismus. Cardiac: Regular rate and rhythm no murmurs gallops or rubs, equal peripheral pulses bilaterally. Respiratory: Lungs clear to auscultation bilaterally. No chest tenderness. Abdomen: Soft, nontender, nondistended. No abdominal bruit or pulsatile masses. No hepatosplenomegaly Extremities: No peripheral edema, no signs of gross trauma or deformity. Activefull range of motion of all extremities. Neuro: Cranial nerves II through XII intact, no focal neurological deficits. Gladis-Hallpike maneuver was negative. However patient does have horizontal nystagmus. Skin: Clean dry and intact with no rash, purpura, petechiae, vesicles or pustules. Backs/flank: No CVA tenderness, no midline spinal tenderness, no deformity. Psych: Normal mood and affect. No SI, HI or acute psychosis. Const Vital Signs: 08/16/23 11:35 08/16/23 12:17 08/16/23 13:35 Temperature 98 F Temperature Source Temporal Pulse Rate 61 67 Respiratory Rate 14 18 Respiratory Effort Normal Respiratory Pattern Normal Blood Pressure 118/54 L 117/59 L Blood Pressure Mean 75 78 Pulse Ox 96 96 Oxygen Delivery Method Room Air Room Air <Dr. Latesha Heredia MD - Last Filed: 08/16/23 15:45> Physical Exam Const Vital Signs: 08/16/23 11:35 08/16/23 12:17 08/16/23 13:35 Temperature 98 F Temperature Source Temporal Pulse Rate 61 67 Respiratory Rate 14 18 Respiratory Effort Normal Respiratory Pattern Normal Blood Pressure 118/54 L 117/59 L Blood Pressure Mean 75 78 Pulse Ox 96 96 Oxygen Delivery Method Room Air Room Air [facility] <RENETTA Waldrop - Last Filed: 08/16/23 13:50> [facility] Lab Data Labs: Laboratory Results - last 24 hr 08/16/23 08/16/23 12:00 13:00 WBC 57.8 H* RBC 3.99 L Hgb 10.7 L Hct 35.5 L MCV 89.0 MCH 26.8 L MCHC 30.1 L RDW Std Deviation 57.1 H RDW Coeff of Willie 17.7 H Plt Count 272 MPV 10.1 Immature Gran % (Auto) 0.300 Neut % (Auto) 11.5 L Lymph % (Auto) 85.8 H Campbell % (Auto) 1.7 Eos % (Auto) 0.3 Baso % (Auto) 0.4 Absolute Neuts (auto) 6.7 Absolute Lymphs (auto) 49.61 H Nucleated RBC % 0 Differential Comment SCANNED Diff Path Review September Sodium 141 Potassium 3.8 Chloride 106 Carbon Dioxide 33.0 H Anion Gap 2 L BUN 54 H Creatinine 2.05 H Est GFR (MDRD) Af Amer 40 L Est GFR (MDRD) Non-Af 33 L BUN/Creatinine Ratio 26.3 H Glucose 140 H Calcium 9.0 Magnesium 2.3 Total Bilirubin 0.40 AST 19 ALT 24 Alkaline Phosphatase 87 Troponin I High Sens 17 Total Protein 5.8 L Albumin 3.3 Globulin 2.5 Albumin/Globulin Ratio 1.3 Lipase 15 Urine Color Yellow Urine Clarity Clear Urine pH 6.5 Ur Specific [place] 1.010 Urine Protein 15 H Urine Glucose (UA) Normal Urine Ketones Negative Urine Occult Blood Negative Urine Nitrite Negative Urine Bilirubin Negative Urine Urobilinogen Normal Ur Leukocyte Esterase 100 H Urine RBC 0 SEEN Urine WBC 5-10 SEEN Ur Squamous Epith Cells 0 SEEN Urine Bacteria 0 SEEN Urine Mucus 0 SEEN Radiography Diagnostic Testing: Clinical Impression(s) from Imaging Studies Brain CT 08/16/23 11:57 IMPRESSION: Chronic involutional changes of the brain. Electronically Signed: Gerson Watkins MD at 12:51 EDT , Chest X-Ray 08/16/23 12:22 IMPRESSION: Hyperinflation. No acute abnormality is seen. Electronically Signed: Gerson Watkins MD at 12:52 EDT , EKG AV dual pacemaker: Attestation: I personally reviewed and interpreted this EKG as follows: Comments: AV dual paced rhythm, rate of 60 bpm, MD interval 126 ms, QRS duration 68 ms, no acute ST elevation, no acute infarct noted. Treatment and Re-Evaluation :: Differential diagnosis includes however is not limited to: CVA, ACS, KS, dehydration, electrolyte abnormality, gastroenteritis, vertigo Patient is alert oriented x 4. Patient is in no respiratory distress. Patient presents to the emergency department with complaints of generalized weakness, nausea and vomiting, intermittent dizziness. Patient will receive a full workup. Patient received a CT scan of the brain, chest x-ray, laboratory valuesincluding a troponin. This is concerning for any ACS or KS, electrolyte abnormalities. All radiologic examinations were read, reviewed by the emergencydepartment attending. From these reads, a plan of care will be put in place. Patient will be given IV fluids, 500 cc normal saline. Patient will be reevaluated. Patient's chest x-ray showed no acute abnormality. Patient's COVID-19 influenzaand RSV [address] negative. CT scan of the brain was unremarkable. Patient's laboratory values showed an elevated white blood count at 57.8 however second Chavo to the patient's CLL, he is always above 50. Patient's hemoglobin is 10.7which is baseline. Patient's chemistries show some renal sufficiency with a creatinine of 2.05, this again is baseline for the patient. Patient's BUN is elevated at 54. Patient trying to urinate on the urinal did take 2 nurses to help him steady himself. At this time, I spoke with the patient, the patient's family. The patient and family are very nervous about the patient returning home, the patient's is currently healing from a significant back surgery and the patient's family lives greater than 1 hour away. The patient is concerned for falling, and is unsure if the patient cannot care for himself. Patient will need to be admitted to the hospital and sent to rehab facility. I spoke with the patient as well as the patient's family, they are in agreement. I spoke with hospitalist who agrees to admit. Patient is stable. <Dr. Latesha Heredia MD - Last Filed: 08/16/23 15:45> [facility] Lab Data Labs: Laboratory Results - last 24 hr 08/16/23 08/16/23 12:00 13:00 WBC 57.8 H* RBC 3.99 L Hgb 10.7 L Hct 35.5 L MCV 89.0 MCH 26.8 L MCHC 30.1 L RDW Std Deviation 57.1 H RDW Coeff of Willie 17.7 H Plt Count 272 MPV 10.1 Immature Gran % (Auto) 0.300 Neut % (Auto) 11.5 L Lymph % (Auto) 85.8 H Campbell % (Auto) 1.7 Eos % (Auto) 0.3 Baso % (Auto) 0.4 Absolute Neuts (auto) 6.7 Absolute Lymphs (auto) 49.61 H Nucleated RBC % 0 Differential Comment SCANNED Diff Path Review September Sodium 141 Potassium 3.8 Chloride 106 Carbon Dioxide 33.0 H Anion Gap 2 L BUN 54 H Creatinine 2.05 H Est GFR (MDRD) Af Amer 40 L Est GFR (MDRD) Non-Af 33 L BUN/Creatinine Ratio 26.3 H Glucose 140 H Calcium 9.0 Magnesium 2.3 Total Bilirubin 0.40 AST 19 ALT 24 Alkaline Phosphatase 87 Troponin I High Sens 17 Total Protein 5.8 L Albumin 3.3 Globulin 2.5 Albumin/Globulin Ratio 1.3 Lipase 15 Urine Color Yellow Urine Clarity Clear Urine pH 6.5 Ur Specific [place] 1.010 Urine Protein 15 H Urine Glucose (UA) Normal Urine Ketones Negative Urine Occult Blood Negative Urine Nitrite Negative Urine Bilirubin Negative Urine Urobilinogen Normal Ur Leukocyte Esterase 100 H Urine RBC 0 SEEN Urine WBC 5-10 SEEN Ur Squamous Epith Cells 0 SEEN Urine Bacteria 0 SEEN Urine Mucus 0 SEEN Radiography Diagnostic Testing: Clinical Impression(s) from Imaging Studies Brain CT 08/16/23 11:57 IMPRESSION: Chronic involutional changes of the brain. Electronically Signed: Gerson Watkins MD at 12:51 EDT , Chest X-Ray 08/16/23 12:22 IMPRESSION: Hyperinflation. No acute abnormality is seen. Electronically Signed: Gerson Watkins MD at 12:52 EDT , Treatment and Re-Evaluation Comments:: Patient seen and evaluated with ALEX. I personally interviewed and examined the patient. I was involved in all aspects of patient's orders, interpretation of results, and treatment. Patient presents secondary to generalized weakness. He had a recent hospital admission for CHF. Family states he has continued to have functional decline athome. His reportedly just had recent back surgery and she is unable to help care for him as well. Patient is concerned about falling and injuring himself. Patient sitting upright in bed no acute distress. Head and neck examination unremarkable. Heart is regular rate and rhythm. Lung sounds are clear. Abdomen is soft with no focal tenderness. Neuro exam reveals no evidence of focal deficit. CBC reveals white count of 57.8 consistent with his CLL. Hemoglobin is 10.7. 85% lymphocytes noted. Chemistry studies reveal a BUN of 54 and a creatinine of2.05. This is consistent with his prior values. LFTs and lipase are unremarkable. Urinalysis reveals no evidence of acute infection. CT scan of the head reveals chronic changes with no acute findings. Chest x-ray shows hyperinflation with no evidence of focal infiltrate per both my independent interpretation as well as radiology. Swab for COVID, influenza, and RSV is negative. EKG is paced with no evidence of ischemia. Nursing staff does note that they got the patient up to help him go to the bathroom. He required an assist of 2 secondary to unsteadiness. Family would like him placed for rehab and therapy. Hospitalist contacted. Discharge Plan Dx/Rx/DC Orders Clinical Impression: Dizziness, Weakness, Nausea & vomiting Disposition Disposition: Acute Care [facility] What to do if you have Problems For any increased pain, shortness of breath, bleeding, nausea or vomiting, chestpain, or any unexpected problems, contact your Primary Care Provider. Call [facility] ([phone]) or report to the closest Emergency Room. Call 911 if necessary. 08/16/23 1349 <Electronically signed by Manolo JACKSON> Cosigner Signature (if applicable): 08/16/23 1545 <Electronically signed by Latesha Heredia MD> CC: RENETTA Turcios ~ Signed [facility] Work Phone: [phone] 140-752904-04-2024 History and physical note Author Lamont Castillo [facility] August 16, 2023 2:38pm Note Date/Time August 16, 2023 1:43 pm [facility] Medical Records Department [address] [place] [address] H&P Exam - Hospitalist 08/16/23 1342 MR#: [id number] Acct: [id number] Name: JAIME ANN Rep #:[id number] : 1940 83 From: Lamont De Guzman PCP: RENETTA Justice Status:REG ER Location: ED HPI - General General Date of Admission: 08/16/23 Date of Service: 08/16/23 Chief Complaint: Generalized weakness, nauseated/mild vomiting in the morning. HPI Narrative JAIME ANN, is a 83 M who was recently admitted between 08/06 to 08/09 for acute on chronic HFrEF and had full workup done and discharged on guideline directed heart failure medications. After discharge patient feels periodic morning nausea and vomiting little amount after he wakes up. As per the son anddaughter who is near the patient in ED also said that he only gets vomiting morelike gagging and nauseated in the morning but not afterwards. This is even before taking medication or food or drink. No fever. Patient also complained that he feels very weak fatigued even on normal activities of daily living. He gets easily tired on walking within the home like in the morning climbed 340 steps and he felt like fatigue and almost collapsed and sat down. He did not pass out or felt like fainting or vertigo although had mild dizziness feeling. Patient denies chest pressure tightness or pain or shortness of breath on exertion or palpitation or other cardiopulmonary symptoms after discharge. Patient is being admitted for dehydration and evaluation for rehab placement Vitals in the ED within normal range. Labs and EKG reviewed and discussed assessment and plan [facility] Medical History Back pain due to injury Cancer CKD (chronic kidney disease), stage III CLL (chronic lymphocytic leukemia) Essential hypertension HFrEF (heart failure with reduced ejection fraction) High cholesterol ICD (implantable cardioverter-defibrillator) in place Iron deficiency anemia LBBB (left bundle branch block) Myocardial infarct Non-ischemic cardiomyopathy Orthostatic hypotension Pacemaker Peripheral neuropathy Prostate cancer Restless leg syndrome Subdural hematoma Ventricular tachycardia Home Medications cholecalciferol (vitamin D3) 25 mcg (1,000 unit) capsule (Vitamin D3) 50 mcg PO DAILY 08/09/16 [History Last Taken 03/31/23] carvedilol 25 mg tablet 25 mg PO BID 08/24/16 [History Last Taken 03/04/23] sacubitril 49 mg-valsartan 51 mg tablet (Entresto) 1 tab PO BID 08/24/22 [History Last Taken 03/31/23] zinc acetate 50 mg (zinc) capsule 50 mg PO DAILY 08/24/22 [History Last Taken 03/31/23] atorvastatin 10 mg tablet 10 mg PO DAILY 03/04/23 [History Last Taken 03/30/23] polysaccharide iron complex 150 mg iron capsule (Ferrex) 150 mg PO DAILY #30 caps 03/20/23 [Rx Last Taken 03/31/23] potassium chloride 10 mEq capsule,extended release 10 meq PO DAILY 08/07/23 [History Last Taken Unknown] furosemide 40 mg tablet 40 mg PO DAILY #30 tabs 08/10/23 [Rx Last Taken Unknown] gabapentin 100 mg capsule 200 mg (2 x 100 mg) PO QHS #60 caps 08/10/23 [Rx Last Taken Unknown] Allergy/AdvReac Type Severity Reaction Status Date / Time lisinopril AdvReac Unknown cough Verified 08/16/23 11:36 Family History Mother CVA (cerebral vascular accident) Hypertension Diabetes Father Ischemic heart disease Diabetes Surgical History Cardiac 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 therapy defibrillator (MATTRESS STRIPPER-D) in place (~09/2015) History of arthroplasty of finger of left hand History of colonoscopy History of left heart catheterization (09/22/15) S/P TURP Splenic artery aneurysm Status post laser lithotripsy of ureteral calculus Social History household members: spouse Smoking Status: Never smoker alcohol intake: never substance use type: does not use caffeine: Yes Type: coffee Number of servings: 3 ROS ROS Narrative Constitutional: Reports severe fatigue and weakness. No fever. HEENT: Reports systems reviewed and no addt'l complaints, except as documented Respiratory/Chest:No acute shortness of breath or respiratory distress or wheezing. CVS: Recent admission for heart failure exacerbation. Rest described in HPI Gastrointestinal: No abdominal pain. Denies acute alteration of bowel habit. Rest as described in HPI. No hematemesis melena Genitourinary: Denies burning urination or new urinary tract symptoms Musculoskeletal: Denies acute joint pain or limited range of motion. No acute injury. Chronic arthritis Neurologic: Denies seizure-like symptoms. skin: No ulcer. No rash Endocrinology: Reports systems reviewed and no addt'l complaints, except as documented Hematologic/Lymphatic: Reports systems reviewed and no addt'l complaints, exceptas documented Rest 14 ROS are negative except as mentioned in HPI Vital Signs Vital Signs Vital Signs: 08/16/23 11:35 08/16/23 12:17 08/16/23 13:35 Temperature 98 F Temperature Source Temporal Pulse Rate 61 67 Respiratory Rate 14 18 Respiratory Effort Normal Respiratory Pattern Normal Blood Pressure 118/54 L 117/59 L Blood Pressure Mean 75 78 Pulse Ox 96 96 Oxygen Delivery Method Room Air Room Air Physical Exam Narrative General: Alert, Oriented x3, Cooperative HEENT: Atraumatic, PERRLA, EOMI, Normocephalic Oral: No Gingival or Mucosal Lesions/ Ulcerations Neck: Supple, No JVD, Negative Carotid Bruits Chest wall/Lungs: Air entry diminished in bilateral lung bases. No crepitation/rhonchi Cardiovascular: Paced rhythm, left upper chest AICD.No M/G/R Abdomen: Bowel Sounds Present, Soft, Non Tender, Non-Distended : No dysuria. No renal angle tenderness. No suprapubic tenderness. Extremities: No edema, Capillary Refill Less than 3 Seconds Skin: No rashes, No breakdown Musculoskeletal: No Tenderness to Palpation of Joints or Extremities. Degenerative arthritis of knees and hip joints Neurological: Cranial nerves II-XII grossly intact, DTR 2+/4. No acute focal neurological deficit. Psych/Mental Status: Normal Affect, Appropriate. Results Lab / Micro Data 08/16/23 12:00 08/16/23 12:00 Labs: Laboratory Results - last 24 hr 08/16/23 12:00: WBC 57.8 H*, RBC 3.99 L, Hgb 10.7 L, Hct 35.5 L, MCV 89.0, MCH 26.8 L, MCHC 30.1 L, RDW Std Deviation 57.1 H, RDW Coeff of Willie 17.7 H, Plt Count 272, MPV 10.1, Immature Gran % (Auto) 0.300, Neut % (Auto) 11.5 L, Lymph %(Auto) 85.8 H, Campbell % (Auto) 1.7, Eos % (Auto) 0.3, Baso % (Auto) 0.4, Absolute Neuts (auto) 6.7, Absolute Lymphs (auto) 49.61 H, Nucleated RBC % 0, Differential Comment SCANNED, Diff Path Review September, Sodium 141, Potassium 3.8, Chloride 106, Carbon Dioxide 33.0 H, Anion Gap 2 L, BUN 54 H, Creatinine 2.05 H, Est GFR (MDRD) Af Amer 40 L, Est GFR (MDRD) Non-Af 33 L, BUN/Creatinine Ratio 26.3 H, Glucose 140 H, Calcium 9.0, Total Bilirubin 0.40, AST 19, ALT 24, Alkaline Phosphatase 87, Troponin I High Sens 17, Total Protein 5.8 L, Albumin 3.3, Globulin 2.5, Albumin/Globulin Ratio 1.3, Lipase 15 08/16/23 13:00: Urine Color Yellow, Urine Clarity Clear, Urine pH 6.5, Ur Specific Midland 1.010, Urine Protein 15 H, Urine Glucose (UA) Normal, Urine Ketones Negative, Urine Occult Blood Negative, Urine Nitrite Negative, Urine Bilirubin Negative, Urine Urobilinogen Normal, Ur Leukocyte Esterase 100 H, Urine RBC 0 SEEN, Urine WBC 5- 10 SEEN, Ur Squamous Epith Cells 0 SEEN, Urine Bacteria 0 SEEN, Urine Mucus 0 SEEN Micro: Microbiology 08/16/23 12:10 Mucosa - Nose SARS-CoV-2, Influenza & RSV (PCR) - Final Imaging Radiology Impression Brain CT 08/16/23 11:57 IMPRESSION: Chronic involutional changes of the brain. Electronically Signed: Gerson Watkins MD at 12:51 EDT , Chest X-Ray 08/16/23 12:22 IMPRESSION: Hyperinflation. No acute abnormality is seen. Electronically Signed: Gerson Watkins MD at 12:52 EDT , Assessment & Plan Assessment/Plan (1) Weakness: (2) Nausea & vomiting: QUALIFIERS: Vomiting type: unspecified Qualified Code(s): R11.2 -Nausea with vomiting, unspecified (3) Chronic HFrEF (heart failure with reduced ejection fraction): PLAN: Plan This 83-year-old gentleman being admitted for generalized fatigue and weakness nausea and vomiting. 1. Acute dehydration associated with nausea and vomiting, exact etiology unclear: Patient is being admitted on MedSurg floor. Conservative IV fluid normal saline ordered as patient recently admitted for HFrEF exacerbation. I feel mild to be gabapentin 200 mg at bedtime may be the potential cause althoughunclear. Will decrease the dose to gabapentin 100 mg at bedtime. 2. Fatigue and generalized weakness with restricted ADL to mobility/adult failure to thrive: Patient uses cane for walking but gets easily fatigued while doing ADLs. PT and OT ordered. statistics manager consulted. 3. Recent admission for acute on chronic HFrEF: Currently patient not having signs and symptoms of acute heart failure. Resume Lasix from tomorrow. Home heart failure medications including carvedilol and Entresto continued. 4. CKD stage IIIb: Patient baseline creatinine runs between 1.8-2.4. Currentlyit is 2.05 BUN 54, on baseline. BUN slightly elevated. 5. CLL: Patient follows Dr. Osborn an outpatient diagnosis in 2003. Patient chronically has elevated leukocytosis mainly lymphocytes 85%. ALC about 50,000. 6. Chronic normocytic anemia: Hemoglobin is 10.7/35% on baseline. Patient is on ferrous sulfate. 7. History of bilateral hydronephrosis secondary to acute Distaflo complicated UTI with history of nephrolithiasis and urine retention during recent admission:Patient on Flomax continued. Follows urologist as an outpatient. 8. Other multiple comorbidities include hypertension, dyslipidemia, history of prostate cancer diagnosed in 2016, history of subdural hematoma and neuropathy: Chronic conditions. Multiple comorbidities complicates the present care and expect difficult and delay recovery Living will/advanced directive/end of life care: Patient does have living will or advanced directive. Her daughter is power of representative for health. After discussion of benefits/risks procedures involved with full code, DNR CC arrest and DNR CC, the patient, her daughter and son all in agreement with DNR CC arrest with no intubation. Patient doesn't want artificial life support including intubation, tube feed, ventilator and/chest compression, central venous catheter, vasopressor and DC shock if needed Total time spent in oqth-de-bxee encounter in discussion of advanced directive 17 minutes. Microbiology Past 72 Hours 08/16/23 12:10 Mucosa - Nose SARS-CoV-2, Influenza & RSV (PCR) - Final Laboratory Results 08/16/23 12:00: WBC 57.8 H*, RBC 3.99 L, Hgb 10.7 L, Hct 35.5 L, MCV 89.0, MCH 26.8 L, MCHC 30.1 L, RDW Std Deviation 57.1 H, RDW Coeff of Willie 17.7 H, Plt Count 272, MPV 10.1, Immature Gran % (Auto) 0.300, Neut % (Auto) 11.5 L, Lymph %(Auto) 85.8 H, Campbell % (Auto) 1.7, Eos % (Auto) 0.3, Baso % (Auto) 0.4, Absolute Neuts (auto) 6.7, Absolute Lymphs (auto) 49.61 H, Nucleated RBC % 0, Differential Comment SCANNED, Diff Path Review September, Sodium 141, Potassium 3.8, Chloride 106, Carbon Dioxide 33.0 H, Anion Gap 2 L, BUN 54 H, Creatinine 2.05 H, Est GFR (MDRD) Af Amer 40 L, Est GFR (MDRD) Non-Af 33 L, BUN/Creatinine Ratio 26.3 H, Glucose 140 H, Calcium 9.0, Total Bilirubin 0.40, AST 19, ALT 24, Alkaline Phosphatase 87, Troponin I High Sens 17, Total Protein 5.8 L, Albumin 3.3, Globulin 2.5, Albumin/Globulin Ratio 1.3, Lipase 15 08/16/23 13:00: Urine Color Yellow, Urine Clarity Clear, Urine pH 6.5, Ur Specific [place] 1.010, Urine Protein 15 H, Urine Glucose (UA) Normal, Urine Ketones Negative, Urine Occult Blood Negative, Urine Nitrite Negative, Urine Bilirubin Negative, Urine Urobilinogen Normal, Ur Leukocyte Esterase 100 H, Urine RBC 0 SEEN, Urine WBC 5- 10 SEEN, Ur Squamous Epith Cells 0 SEEN, Urine Bacteria 0 SEEN, Urine Mucus 0 SEEN Clinical Impression(s) from Imaging Studies Brain CT 08/16/23 11:57 IMPRESSION: Chronic involutional changes of the brain. Chest X-Ray 08/16/23 12:22 IMPRESSION: Hyperinflation. No acute abnormality is seen. Charges/Coding Visit Charges Inpatient E&M: 76611 Init Hosp L3 Procedures Hospitalists Procedures: 21218 Advncd Care Plan 30 Min 08/16/23 1438 <Electronically signed by Lamont Castillo MD> Cosigner Signature (if applicable): CC: RENETTA Turcios; Dr. Lamont Castillo MD~ Signed [facility] Work Phone: [phone]) 752-729204-04-2024 History and physical note Author Lamont Castillo [facility] August 16, 2023 2:38pm Note Date/Time August 16, 2023 1:43 pm [facility] Medical Records Department [address] [place] [id number] H&P Exam - Hospitalist 08/16/23 1342 MR#: [id number] Acct: [id number] Name: JAIME ANN Rep #:[id number] : 1940 83 From: Lamont De Guzman PCP: RENETTA Justice Status:REG ER Location: ED HPI - General General Date of Admission: 08/16/23 Date of Service: 08/16/23 Chief Complaint: Generalized weakness, nauseated/mild vomiting in the morning. HPI Narrative JAIME ANN, is a 83 M who was recently admitted between 08/06 to 08/09 for acute on chronic HFrEF and had full workup done and discharged on guideline directed heart failure medications. After discharge patient feels periodic morning nausea and vomiting little amount after he wakes up. As per the son anddaughter who is near the patient in ED also said that he only gets vomiting morelike gagging and nauseated in the morning but not afterwards. This is even before taking medication or food or drink. No fever. Patient also complained that he feels very weak fatigued even on normal activities of daily living. He gets easily tired on walking within the home like in the morning climbed 340 steps and he felt like fatigue and almost collapsed and sat down. He did not pass out or felt like fainting or vertigo although had mild dizziness feeling. Patient denies chest pressure tightness or pain or shortness of breath on exertion or palpitation or other cardiopulmonary symptoms after discharge. Patient is being admitted for dehydration and evaluation for rehab placement Vitals in the ED within normal range. Labs and EKG reviewed and discussed assessment and plan [facility] Medical History Back pain due to injury Cancer CKD (chronic kidney disease), stage III CLL (chronic lymphocytic leukemia) Essential hypertension HFrEF (heart failure with reduced ejection fraction) High cholesterol ICD (implantable cardioverter-defibrillator) in place Iron deficiency anemia LBBB (left bundle branch block) Myocardial infarct Non-ischemic cardiomyopathy Orthostatic hypotension Pacemaker Peripheral neuropathy Prostate cancer Restless leg syndrome Subdural hematoma Ventricular tachycardia Home Medications cholecalciferol (vitamin D3) 25 mcg (1,000 unit) capsule (Vitamin D3) 50 mcg PO DAILY 08/09/16 [History Last Taken 03/31/23] carvedilol 25 mg tablet 25 mg PO BID 08/24/16 [History Last Taken 03/04/23] sacubitril 49 mg-valsartan 51 mg tablet (Entresto) 1 tab PO BID 08/24/22 [History Last Taken 03/31/23] zinc acetate 50 mg (zinc) capsule 50 mg PO DAILY 08/24/22 [History Last Taken 03/31/23] atorvastatin 10 mg tablet 10 mg PO DAILY 03/04/23 [History Last Taken 03/30/23] polysaccharide iron complex 150 mg iron capsule (Ferrex) 150 mg PO DAILY #30 caps 03/20/23 [Rx Last Taken 03/31/23] potassium chloride 10 mEq capsule,extended release 10 meq PO DAILY 08/07/23 [History Last Taken Unknown] furosemide 40 mg tablet 40 mg PO DAILY #30 tabs 08/10/23 [Rx Last Taken Unknown] gabapentin 100 mg capsule 200 mg (2 x 100 mg) PO QHS #60 caps 08/10/23 [Rx Last Taken Unknown] Allergy/AdvReac Type Severity Reaction Status Date / Time lisinopril AdvReac Unknown cough Verified 08/16/23 11:36 Family History Mother CVA (cerebral vascular accident) Hypertension Diabetes Father Ischemic heart disease Diabetes Surgical History Cardiac 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 therapy defibrillator (MATTRESS STRIPPER-D) in place (~09/2015) History of arthroplasty of finger of left hand History of colonoscopy History of left heart catheterization (09/22/15) S/P TURP Splenic artery aneurysm Status post laser lithotripsy of ureteral calculus Social History household members: spouse Smoking Status: Never smoker alcohol intake: never substance use type: does not use caffeine: Yes Type: coffee Number of servings: 3 ROS ROS Narrative Constitutional: Reports severe fatigue and weakness. No fever. HEENT: Reports systems reviewed and no addt'l complaints, except as documented Respiratory/Chest:No acute shortness of breath or respiratory distress or wheezing. CVS: Recent admission for heart failure exacerbation. Rest described in HPI Gastrointestinal: No abdominal pain. Denies acute alteration of bowel habit. Rest as described in HPI. No hematemesis melena Genitourinary: Denies burning urination or new urinary tract symptoms Musculoskeletal: Denies acute joint pain or limited range of motion. No acute injury. Chronic arthritis Neurologic: Denies seizure-like symptoms. skin: No ulcer. No rash Endocrinology: Reports systems reviewed and no addt'l complaints, except as documented Hematologic/Lymphatic: Reports systems reviewed and no addt'l complaints, exceptas documented Rest 14 ROS are negative except as mentioned in HPI Vital Signs Vital Signs Vital Signs: 08/16/23 11:35 08/16/23 12:17 08/16/23 13:35 Temperature 98 F Temperature Source Temporal Pulse Rate 61 67 Respiratory Rate 14 18 Respiratory Effort Normal Respiratory Pattern Normal Blood Pressure 118/54 L 117/59 L Blood Pressure Mean 75 78 Pulse Ox 96 96 Oxygen Delivery Method Room Air Room Air Physical Exam Narrative General: Alert, Oriented x3, Cooperative HEENT: Atraumatic, PERRLA, EOMI, Normocephalic Oral: No Gingival or Mucosal Lesions/ Ulcerations Neck: Supple, No JVD, Negative Carotid Bruits Chest wall/Lungs: Air entry diminished in bilateral lung bases. No crepitation/rhonchi Cardiovascular: Paced rhythm, left upper chest AICD.No M/G/R Abdomen: Bowel Sounds Present, Soft, Non Tender, Non-Distended : No dysuria. No renal angle tenderness. No suprapubic tenderness. Extremities: No edema, Capillary Refill Less than 3 Seconds Skin: No rashes, No breakdown Musculoskeletal: No Tenderness to Palpation of Joints or Extremities. Degenerative arthritis of knees and hip joints Neurological: Cranial nerves II-XII grossly intact, DTR 2+/4. No acute focal neurological deficit. Psych/Mental Status: Normal Affect, Appropriate. Results Lab / Micro Data 08/16/23 12:00 08/16/23 12:00 Labs: Laboratory Results - last 24 hr 08/16/23 12:00: WBC 57.8 H*, RBC 3.99 L, Hgb 10.7 L, Hct 35.5 L, MCV 89.0, MCH 26.8 L, MCHC 30.1 L, RDW Std Deviation 57.1 H, RDW Coeff of Willie 17.7 H, Plt Count 272, MPV 10.1, Immature Gran % (Auto) 0.300, Neut % (Auto) 11.5 L, Lymph %(Auto) 85.8 H, Campbell % (Auto) 1.7, Eos % (Auto) 0.3, Baso % (Auto) 0.4, Absolute Neuts (auto) 6.7, Absolute Lymphs (auto) 49.61 H, Nucleated RBC % 0, Differential Comment SCANNED, Diff Path Review September foll, Sodium 141, Potassium 3.8, Chloride 106, Carbon Dioxide 33.0 H, Anion Gap 2 L, BUN 54 H, Creatinine 2.05 H, Est GFR (MDRD) Af Amer 40 L, Est GFR (MDRD) Non-Af 33 L, BUN/Creatinine Ratio 26.3 H, Glucose 140 H, Calcium 9.0, Total Bilirubin 0.40, AST 19, ALT 24, Alkaline Phosphatase 87, Troponin I High Sens 17, Total Protein 5.8 L, Albumin 3.3, Globulin 2.5, Albumin/Globulin Ratio 1.3, Lipase 15 08/16/23 13:00: Urine Color Yellow, Urine Clarity Clear, Urine pH 6.5, Ur Specific Mid[place] 1.010, Urine Protein 15 H, Urine Glucose (UA) Normal, Urine Ketones Negative, Urine Occult Blood Negative, Urine Nitrite Negative, Urine Bilirubin Negative, Urine Urobilinogen Normal, Ur Leukocyte Esterase 100 H, Urine RBC 0 SEEN, Urine WBC 5- 10 SEEN, Ur Squamous Epith Cells 0 SEEN, Urine Bacteria 0 SEEN, Urine Mucus 0 SEEN Micro: Microbiology 08/16/23 12:10 Mucosa - Nose SARS-CoV-2, Influenza & RSV (PCR) - Final Imaging Radiology Impression Brain CT 08/16/23 11:57 IMPRESSION: Chronic involutional changes of the brain. Electronically Signed: Gerson Watkins MD at 12:51 EDT , Chest X-Ray 08/16/23 12:22 IMPRESSION: Hyperinflation. No acute abnormality is seen. Electronically Signed: Gerson Watkins MD at 12:52 EDT , Assessment & Plan Assessment/Plan (1) Weakness: (2) Nausea & vomiting: QUALIFIERS: Vomiting type: unspecified Qualified Code(s): R11.2 -Nausea with vomiting, unspecified (3) Chronic HFrEF (heart failure with reduced ejection fraction): PLAN: Plan This 83-year-old gentleman being admitted for generalized fatigue and weakness nausea and vomiting. 1. Acute dehydration associated with nausea and vomiting, exact etiology unclear: Patient is being admitted on MedSurg floor. Conservative IV fluid normal saline ordered as patient recently admitted for HFrEF exacerbation. I feel mild to be gabapentin 200 mg at bedtime may be the potential cause althoughunclear. Will decrease the dose to gabapentin 100 mg at bedtime. 2. Fatigue and generalized weakness with restricted ADL to mobility/adult failure to thrive: Patient uses cane for walking but gets easily fatigued while doing ADLs. PT and OT ordered. statistics manager consulted. 3. Recent admission for acute on chronic HFrEF: Currently patient not having signs and symptoms of acute heart failure. Resume Lasix from tomorrow. Home heart failure medications including carvedilol and Entresto continued. 4. CKD stage IIIb: Patient baseline creatinine runs between 1.8-2.4. Currentlyit is 2.05 BUN 54, on baseline. BUN slightly elevated. 5. CLL: Patient follows Dr. Osborn an outpatient diagnosis in 2003. Patient chronically has elevated leukocytosis mainly lymphocytes 85%. ALC about 50,000. 6. Chronic normocytic anemia: Hemoglobin is 10.7/35% on baseline. Patient is on ferrous sulfate. 7. History of bilateral hydronephrosis secondary to acute Distaflo complicated UTI with history of nephrolithiasis and urine retention during recent admission:Patient on Flomax continued. Follows urologist as an outpatient. 8. Other multiple comorbidities include hypertension, dyslipidemia, history of prostate cancer diagnosed in 2016, history of subdural hematoma and neuropathy: Chronic conditions. Multiple comorbidities complicates the present care and expect difficult and delay recovery Living will/advanced directive/end of life care: Patient does have living will or advanced directive. Her daughter is power of representative for health. After discussion of benefits/risks procedures involved with full code, DNR CC arrest and DNR CC, the patient, her daughter and son all in agreement with DNR CC arrest with no intubation. Patient doesn't want artificial life support including intubation, tube feed, ventilator and/chest compression, central venous catheter, vasopressor and DC shock if needed Total time spent in [id number] encounter in discussion of advanced directive 17 minutes. Microbiology Past 72 Hours 08/16/23 12:10 Mucosa - Nose SARS-CoV-2, Influenza & RSV (PCR) - Final Laboratory Results 08/16/23 12:00: WBC 57.8 H*, RBC 3.99 L, Hgb 10.7 L, Hct 35.5 L, MCV 89.0, MCH 26.8 L, MCHC 30.1 L, RDW Std Deviation 57.1 H, RDW Coeff of Willie 17.7 H, Plt Count 272, MPV 10.1, Immature Gran % (Auto) 0.300, Neut % (Auto) 11.5 L, Lymph %(Auto) 85.8 H, Campbell % (Auto) 1.7, Eos % (Auto) 0.3, Baso % (Auto) 0.4, Absolute Neuts (auto) 6.7, Absolute Lymphs (auto) 49.61 H, Nucleated RBC % 0, Differential Comment SCANNED, Diff Path Review September, Sodium 141, Potassium 3.8, Chloride 106, Carbon Dioxide 33.0 H, Anion Gap 2 L, BUN 54 H, Creatinine 2.05 H, Est GFR (MDRD) Af Amer 40 L, Est GFR (MDRD) Non-Af 33 L, BUN/Creatinine Ratio 26.3 H, Glucose 140 H, Calcium 9.0, Total Bilirubin 0.40, AST 19, ALT 24, Alkaline Phosphatase 87, Troponin I High Sens 17, Total Protein 5.8 L, Albumin 3.3, Globulin 2.5, Albumin/Globulin Ratio 1.3, Lipase 15 08/16/23 13:00: Urine Color Yellow, Urine Clarity Clear, Urine pH 6.5, Ur Specific [place] 1.010, Urine Protein 15 H, Urine Glucose (UA) Normal, Urine Ketones Negative, Urine Occult Blood Negative, Urine Nitrite Negative, Urine Bilirubin Negative, Urine Urobilinogen Normal, Ur Leukocyte Esterase 100 H, Urine RBC 0 SEEN, Urine WBC 5- 10 SEEN, Ur Squamous Epith Cells 0 SEEN, Urine Bacteria 0 SEEN, Urine Mucus 0 SEEN Clinical Impression(s) from Imaging Studies Brain CT 08/16/23 11:57 IMPRESSION: Chronic involutional changes of the brain. Chest X-Ray 08/16/23 12:22 IMPRESSION: Hyperinflation. No acute abnormality is seen. Charges/Coding Visit Charges Inpatient E&M: 38069 Init Hosp L3 Procedures Hospitalists Procedures: 82111 Advncd Care Plan 30 Min 08/16/23 1438 <Electronically signed by Lamont Castillo MD> Cosigner Signature (if applicable): CC: RENETTA Turcios; Dr. Lamont Castillo MD~ Signed [facility] Work Phone: [phone] 505-977203-29-2024 Discharge summary Author Kate Horton [facility] August 10, 2023 11:41am Note Date/Time August 10, 2023 11: 24am [facility] Medical Records Department [address] [place] [address] Discharge Summary 08/10/23 1122 MR#: [id number] Acct: [id number] Name: JAIME ANN Rep #:[id number] : 1940 83 From: Kate Hortno DO PCP: RENETTA Justice Status:ADM IN Location: [place] [id number] Providers Date of Admission: 08/07/23 Date of Discharge: 08/10/23 Primary Care Physician: RENETTA Justice Reason For Visit: CHF EXAC Diagnosis Discharge Diagnosis (1) Hypoxemia: Status: Acute Code(s): R09.02 - Hypoxemia Medications at Discharge Home Medications cholecalciferol (vitamin D3) 25 mcg (1,000 unit) capsule (Vitamin D3) 50 mcg PO DAILY 08/09/16 carvedilol 25 mg tablet 25 mg PO BID 08/24/16 glucosamine 750 [id number]-[id number] no1 644 mg-C 30 mg-jesus 1 mg tablet (Osteo Bi-Flex Triple Strength) 1 ea PO DAILY 08/24/16 sacubitril 49 mg-valsartan 51 mg tablet (Entresto) 1 tab PO BID 08/24/22 zinc acetate 50 mg (zinc) capsule 50 mg PO DAILY 08/24/22 atorvastatin 10 mg tablet 10 mg PO DAILY 03/04/23 tamsulosin 0.4 mg capsule 0.4 mg PO DAILY 30 days #30 caps 03/06/23 ondansetron 4 mg disintegrating tablet 4 mg PO Q6H PRN nausea and vomiting #10 tabs 03/15/23 polysaccharide iron complex 150 mg iron capsule (Ferrex) 150 mg PO DAILY #30 caps 03/20/23 multivitamin (Daily Multi-Vitamin tablet) 1 tab PO DAILY 08/07/23 potassium chloride 10 mEq capsule,extended release 10 meq PO DAILY 08/07/23 furosemide 40 mg tablet 40 mg PO DAILY #30 tabs 08/10/23 gabapentin 100 mg capsule 200 mg (2 x 100 mg) PO QHS #60 caps 08/10/23 Hospital Course Operations None Procedures 2-D Echocardiogram, EKG and - (Chest x-ray/CTA chest) Summary of Care Provided Minutes Spent on Discharge: 38 Hospital Course: Mr. Ann is an 83-year-old white male [facility] to shortness of breath. He reportedthat it started about 2 weeks ago but his daughter was at the bedside and feels that it happened the day prior to presentation. Upon presentation the emergencydepartment his oxygenation was stable on room air however when he would move around in bed he dropped to the 70s. He was subsequently placed on oxygen at that time. He denied any fever chills or lower extremity edema. He had previously been on diuretics but had been stopped at some point by his primary care today after for uncertain reasons. He does have a known history of cardiomyopathy with a previous echocardiogram done in 2022 that demonstrated an EF of 30% with moderately dilated LV, mild concentric LVH, indeterminate diastolic dysfunction, moderate left atrial lodgment, severe mitral valve insufficiency, mild aortic and pulmonic valve insufficiency. Vitalsigns on presentation showed a temperature of 36 ?C, heart rate was 95, blood pressure was initially 171/94 with a pulse ox of 93% on room air and a respiratory rate of 22. His CBC shows a markedly elevated white count however this is chronic and stable, he is a chronic stable anemia with a normal plateletcount and no left shift. CBC does show a significant lymphocytosis, which againis chronic and stable. His chemistry panel showed chronic stable serum creatinine elevation at 1.91 with a slightly elevated glucose at 121. His troponin was 34 and his BNP was 4227.8 which is markedly elevated when compared to previous numbers at which time he was admitted. His daughter does not think he weighs himself, watches his diet or watches his fluid intake. He was admitted to the PCU and started on IV Lasix and a repeat echocardiogram was ordered. Echocardiogram done on 08/07/2023 demonstrated an EF of 30% with stage II diastolic dysfunction, moderate concentric LVH, moderately severe eccentric mitral valve insufficiency, mild tricuspid valve insufficiency, pulmonary arterysystolic pressure of 57 mmHg and mild aortic valve insufficiency with no significant changes from previous echocardiogram done last year. He was transition from bolus Lasix to Lasix drip for about 24 hours. Had good diuresis. We then discontinued the Lasix drip and placed him on bolus IV Lasix for another 24 hours. We were able to wean him off oxygen and he had no furthershortness of breath with exertion. He was complaining of significant dry mouth and this evidently had been a problem at home per discussion with both he and his son and daughter. He was noted to be on nortriptyline for neuropathy. I discussed the side effects of nortriptyline with the patient and his family and recommended discontinuing this. They were agreed so we did and placed him on gabapentin 200 mg at at bedtime for his neuropathy. He got good resolution of his symptoms with the gabapentin and he stated his mouth was not nearly as dry being off the nortriptyline. This was discontinued at the time of discharge. We did send him on on Lasix 40 mg oral daily. He is already on goal-directed therapy for his reduced ejection fraction with carvedilol as well as Entresto. We were able to obtain a follow-up appointment with Dr. Loc Thorne on September 04, 2023 at 1:30 PM as he desires to switch his cardiology care to [facility] from [facility] as it is very taxing for he and his to drive that far for appointments. I did ask case management to start the process for procurement of previous records so that Dr. Thorne has them in his office when he follows up. Prescriptions for gabapentin and Lasix were sent to local pharmacy with 1 month refill. I have also asked him to follow-up with his primary care physician within the next week and ask that a basic metabolic profile be done in the next 5 to 7 days to reassess his renal function and electrolytes on the Lasix. Patient was able to be discharged home in stable condition on room air on 08/10/2023. We talked extensively about daily weights and taking an extra dose of Lasix if he gains more than 2 to 3 pounds in a 24-hour period, sodium restriction as well as fluid restriction prior to discharge. Discharge diagnoses: Acute hypoxia-resolved Shortness of breath-resolved Acute on chronic heart failure with preserved ejection fraction CKD stage IIIb CLL Chronic normocytic anemia History of bilateral hydronephrosis secondary to acute staphylococcal complicated UTI with acute urinary retention History of nephrolithiasis History of nonischemic cardiomyopathy HTN HPL History of prostate cancer History of BPH with obstruction History of orthostatic hypotension History of neuropathy Vitamin D deficiency History of subdural hematoma Physical Exam Narrative Pt reports that he is feeling well today. Did have some nausea this morning after he ate the for breakfast egg but that has since resolved. Denies any shortness of breath and is anxious to go home if possible. Const alert, oriented x3, no apparent distress, average body habitus, no limitations and well nourished; Negative for healthy appearing Constitutional Narrative: Elderly, white male, sitting up in bed, appears comfortable, nontoxic General Appearance: cooperative, comfortable, well kempt and well developed Orientation / Consciousness: awake, oriented to person, oriented to place and oriented to time Exam Limitations: no limitations HEENT normocephalic, head/scalp atraumatic and moist oral mucous membranes HEENT Narrative: Mild to moderate hearing loss, Mallampati is 2-3, no thrush Eyes PERRL, EOMs intact bilaterally and conjunctivae normal Eyes Narrative: No scleral icterus Neck no lymphadenopathy, supple and no JVD Neck Narrative: trachea midline, no thyroid enlargement Resp normal respiratory effort, no retractions, no use of accessory muscles and clearto auscultation bilaterally Auscultation: Negative for crackles, rhonchi or wheezes Cardio regular rate, regular rhythm, S1 normal heart sound, S2 normal heart sound, no murmurs, no rub, no gallops and no clicks GI normal to inspection, nondistended, normoactive bowel sounds, soft to palpation and non-tender Extremity no clubbing, cyanosis or edema Skin no wounds, skin turgor normal, no jaundice, no petechiae and no mottling Skin Narrative: Scattered ecchymosis Neuro oriented x3, CN's II-XII intact bilaterally, moves all extremities and no focal motor deficits Sensorium / Orientation: awake and alert Speech: speech normal Psych affect normal Psych Narrative: Very pleasant, eye contact is good Weight / BMI Weight Weight: 75.9 kg Body Mass Index (BMI) 24.0 ABG / Lab / Microbiology Data 08/10/23 06:10 08/10/23 06:10 Laboratory: Laboratory Results - last 24 hr 08/09/23 06:05: Diff Path Review Reviewed 08/09/23 15:55: Sodium 144, Potassium 4.1, Chloride 105, Carbon Dioxide 34.0 H, Anion Gap 5, BUN 52 H, Creatinine 2.19 H, Estim Creat Clear Calc 25.46, Est GFR (MDRD) Af Amer 37 L, Est GFR (MDRD) Non-Af 31 L, BUN/Creatinine Ratio 23.7 H, Glucose 93, Calcium 9.1 08/10/23 06:10: WBC 55.5 H*, RBC 3.94 L, Hgb 10.5 L, Hct 34.4 L, MCV 87.3, MCH 26.6 L, MCHC 30.5 L, RDW Std Deviation 56.9 H, RDW Coeff of Willie 17.8 H, Plt Count 253, MPV 10.2, Immature Gran % (Auto) 0.300, Neut % (Auto) 9.7 L, Lymph % (Auto) 85.7 H, Campbell % (Auto) 3.2, Eos % (Auto) 0.7, Baso % (Auto) 0.4, Absolute Neuts (auto) 5.4, Absolute Lymphs (auto) 47.53 H, Nucleated RBC % 0, Diff Path Review Reviewed, Sodium 144, Potassium 3.6, Chloride 105, Carbon Dioxide 34.0 H,Anion Gap 5, BUN 49 H, Creatinine 2.05 H, Estim Creat Clear Calc 27.20, Est GFR (MDRD) Af Amer 40 L, Est GFR (MDRD) Non-Af 33 L, BUN/Creatinine Ratio 23.9 H, Glucose 118 H, Calcium 9.1 Microbiology: Microbiology 08/07/23 13:37 Blood Culture (Wb) - Anticubital Left Blood Culture - Preliminary No growth in 48 hours. 08/07/23 13:20 Mucosa - Nose SARS-CoV-2, Influenza & RSV (PCR) - Final D/C Instructions Discharge Diet: Low fat / Low cholesterol (Limit to 2 L of fluid a day) and 2000mg Sodium Diet Discharge Activity: Return to Normal Activity Meaningful Use Info Meaningful Use Diagnoses (Choose all that apply): CHF CHF HERACLIO/ARB ordered at discharge?: Yes Documented LVEF (%): 30 Discharge Plan Admission Admit Date/Time: 08/07/23 15:19 Primary Reason for Your Visit: Shortness of breath Attending Provider: Kate Horton Primary Care Provider: Kenn Turcios NP Consulting Providers: Yovani Soto Instructions Additional Instructions / Restrictions: 1. You are found to have acute on chronic congestive heart failure at the time of your admission. At discharge please monitor your liquid intake and take in no more than 2 L daily. Also, please limit your salt intake to no more than 2 to 3 g of salt daily. 2. Please weigh yourself on a daily basis with no close on. This would be bestto do in the morning when you get up and if you gain more than 2 to 3 pounds in a 24- hour period please take 1 extra dose of Lasix at that time. And call the safety associate office. Make sure you use the same scale every day. 3. Due to your dry mouth we stopped your nortriptyline for your neuropathy. 4. Please follow-up with cardiology as noted below 5. Please call your primary care physician and ask that a basic metabolic profile be obtained in the next 5 to 7 days to recheck your kidney function and electrolyte levels with the addition of the Lasix. Discharge Orders/Prescriptions Prescriptions: New furosemide 40 mg Tablet 40 mg PO DAILY Qty: 30 1RF gabapentin 100 mg Capsule 200 mg PO QHS Qty: 60 1RF Continued Entresto 49-51 mg tablet 1 tab PO BID Hold Instructions: Resume on 03/15/23. zinc acetate 50 mg (zinc) capsule 50 mg PO DAILY polysaccharide iron complex [Ferrex 150] 150 mg iron capsule 150 mg PO DAILY Qty: 30 1RF cholecalciferol (vitamin D3) [Vitamin D3] 1,000 UNIT capsule 50 mcg PO DAILY Patient Comments: pt unsure if 25mcg or 50 mcg carvedilol 25 MG tablet 25 mg PO BID Osteo Bi-Flex Triple Strength 1 EACH tablet 1 ea PO DAILY atorvastatin 10 mg tablet 10 mg PO DAILY tamsulosin 0.4 mg Capsule 0.4 mg PO DAILY 30 Days Qty: 30 0RF ondansetron 4 mg tablet,disintegrating 4 mg PO Q6H PRN (Reason: nausea and vomiting) Qty: 10 0RF multivitamin [Daily Multi-Vitamin] Tablet 1 tab PO DAILY potassium chloride 10 mEq capsule, extended release 10 meq PO DAILY Discontinued nortriptyline 50 mg capsule 50 mg PO BID Referrals / Follow Up: Loc Thorne MD [Med Staff - Active Staff] - 09/04/23 1:30 pm Kenn Turcios NP, GARNETT FEEDER-C [Primary Care Provider] - Within 1 Week Disposition Disposition (needs filled in before D/C Order can be placed): Home, Self Care Charges/Coding Visit Charges Inpatient E&M: 97596 Disch Hosp >30min 08/10/23 1141 <Electronically signed by Kate Horton DO> Cosigner Signature (if applicable): CC: GARNETT FEEDER-C Kenn Turcios; Dr. Kate Horton DO; Dr. Loc Thorne MD~ Signed [facility] Work Phone: [phone] Progress note Author Kate Horton [facility] August 09, 2023 1:59pm Note Date/Time August 09, 2023 1:5 9pm [facility] Medical Records Department [address] [place] [address] Progress Note - Hospitalist 08/09/23 1352 MR#: [id number] Acct: [id number] Name: JAIME ANN Rep #:[id number] : 1940 83 From: Kate Horton DO PCP: RENETTA Justice Status:ADM [facility] Reason for Visit Reason for Visit: Shortness of breath Subjective Subjective Patient states he feels much better today. He he was able to move around the room and walk without any significant shortness of breath. Feels like his swelling is better. Has no complaints at this time. Family reports that he hashad ongoing issues with dry mouth and we did review his medication list. He is on nortriptyline and I suspect this is probably causing significant dry mouth. I did discuss with them discontinuing this and starting him on some low-dose gabapentin at night for his neuropathy and they were in agreement. They also will start him on some Biotene. We did discuss that if he continues to feel well we will probably be able to discharge him in the next 24 hours. Objective Data Objective Data Vital Signs: Vital Signs Temp Pulse Resp BP Pulse Ox O2 Del Method O2 Flow Rate 97.6 F L 79 16 99/63 98 Nasal Cannula 2 08/09/23 08:41 08/09/23 08:41 08/09/23 08:41 08/09/23 10:21 08/09/23 08:41 08/09/23 09:00 08/09/23 09:00 Oxygen Flow Rate (L/min) 2 Oxygen Delivery Method Nasal Cannula Weight: 76.7 kg Body Mass Index (BMI) 24.3 Intake & Output: Intake and Output for Last 24 Hours 08/07/23 08/08/23 08/09/23 23:59 23:59 23:59 Intake Total 1400 / 1400 466.62 / 466.62 Output Total 200 / 200 450 / 450 Balance -200 / -200 1400 / 1400 16.62 / 16.62 Lab / Micro Data 08/09/23 06:05 08/09/23 06:05 Labs: Laboratory Results - last 24 hr 08/07/23 13:37: Diff Path Review Reviewed 08/08/23 06:50: Diff Path Review Reviewed 08/08/23 16:17: Sodium 141, Potassium 3.6, Chloride 106, Carbon Dioxide 29.0, Anion Gap 6, BUN 45 H, Creatinine 2.00 H, Estim Creat Clear Calc 27.88, Est GFR (MDRD) Af Amer 41 L, Est GFR (MDRD) Non-Af 34 L, BUN/Creatinine Ratio 22.5 H, Glucose 110 H, Calcium 8.9 08/08/23 23:55: Sodium 143, Potassium 3.5, Chloride 106, Carbon Dioxide 31.0, Anion Gap 6, BUN 50 H, Creatinine 2.05 H, Estim Creat Clear Calc 27.20, Est GFR (MDRD) Af Amer 40 L, Est GFR (MDRD) Non-Af 33 L, BUN/Creatinine Ratio 24.4 H, Glucose 124 H, Calcium 8.6 08/09/23 06:03: Phosphorus 4.8 08/09/23 06:05: WBC 52.9 H*, RBC 3.78 L, Hgb 9.9 L, Hct 33.1 L, MCV 87.6, MCH 26.2 L, MCHC 29.9 L, RDW Std Deviation 57.1 H, RDW Coeff of Willie 18.0 H, Plt Count 244, MPV 9.7, Immature Gran % (Auto) 0.300, Neut % (Auto) 8.5 L, Lymph % (Auto) 86.6 H, Campbell % (Auto) 3.5, Eos % (Auto) 0.8, Baso % (Auto) 0.3, Absolute Neuts (auto) 4.5, Absolute Lymphs (auto) 45.76 H, Nucleated RBC % 0, Differential Comment SCANNED, Diff Path Review September, Sodium 142, Potassium 3.7, Chloride 104, Carbon Dioxide 32.0, Anion Gap 6, BUN 49 H, Creatinine 2.13 H, Estim Creat Clear Calc 26.18, Est GFR (MDRD) Af Amer 38 L, Est GFR (MDRD) Non-Af 32 L, BUN/Creatinine Ratio 23.0 H, Glucose 118 H, Calcium 8.8, Magnesium 2.1 Micro: Microbiology 08/07/23 13:37 Blood Culture (Wb) - Anticubital Left Blood Culture - Preliminary No growth in 48 hours. 08/07/23 13:20 Mucosa - Nose SARS-CoV-2, Influenza & RSV (PCR) - Final Radiography Diagnostic Testing: Radiology Impression Echocardiogram 08/07/23 16:14 Interpretation Summary The estimated ejection fraction is 30 %. Stage 2 diastolic dysfunction. Moderate concentric left ventricular hypertrophy. Moderately severe (3+) eccentric mitral valve insufficiency. Mild (1+) tricuspid valve insufficiency. Pulmonary artery systolic pressure is 57 mmHg. Mild (1+) aortic valve insufficiency. No significant change from prior echocardiogram Ordering Physician: Yovani Soto Referring Physician: Kenn Turcios Performed By: Madison Romero RDCS Physical Exam Const alert, oriented x3, no apparent distress, average body habitus and well nourished; Negative for healthy appearing Constitutional Narrative: Elderly, white male, sitting up in a chair at the bedside, appears comfortable, nontoxic, daughter and son are at the bedside General Appearance: cooperative HEENT normocephalic, head/scalp atraumatic and moist oral mucous membranes Resp normal respiratory effort, no retractions, no use of accessory muscles and clearto auscultation bilaterally Auscultation: Negative for crackles, rhonchi or wheezes Cardio regular rate, regular rhythm, S1 normal heart sound, S2 normal heart sound, no murmurs, no rub, no gallops and no clicks GI normal to inspection, nondistended, normoactive bowel sounds, soft to palpation and non-tender Extremity Extremity Narrative: Pitting edema has resolved, no cyanosis or clubbing Neuro oriented x3, moves all extremities and no focal motor deficits Speech: speech normal Psych affect normal Psych Narrative: Very pleasant, eye contact is good Assessment & Plan Assessment/Plan (1) Hypoxemia: PLAN: Plan Hypoxia and shortness of breath secondary to acute exacerbation of heart failurewith reduced ejection fraction -EF at baseline is 30% and repeat echo done today is stable when compared to previous echo from 2022 -This is a nonischemic cardiomyopathy -Continue home goal-directed therapy with carvedilol and Entresto -Will discontinue Lasix drip and place him on IV push Lasix twice daily -BNP on admission was greater than 4000 -Salt restricted diet to 2 g and fluid restrict to 1500 cc daily -Continue daily weights--> patient is down about 2 kg for his hospital stay -Accurate I's and O's--> these appear inaccurate -Will ensure patient has cardiology follow-up after discharge -Patient and family would like him to follow-up here we will arrange for records from [facility] to be transported down to [facility] -Will schedule follow-up for him at [place] cardiology CKD stage IIIb -Baseline serum creatinine appears to run between 1.9 and 2.4 -Serum creatinine is slowly trending up and is now up to 2.13 so we will stop Lasix drip and transition him to IV push Lasix -Patient did have CT angiogram due to elevated D-dimer on presentation so we will need to monitor closely especially with diuretics CLL -Continue outpatient follow-up with Dr. 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 -Management as above -Chronic left bundle branch on EKG -ICD pacer in place HTN/HPL -Continue Entresto -Continue Coreg -Continue home statin History of prostate cancer -Follows as an outpatient with oncology and urology -Diagnosis stage IIIa in 2016 History of orthostatic hypotension -No signs of any current issues History of neuropathy -Patient had been on nortriptyline for this -Patient has been having significant dry mouth -Will discontinue nortriptyline now and at the time of discharge -Hopefully this will change his severe dry mouth as he is drinking excessive amounts of water to combat this -Start gabapentin 200 mg nightly for his neuropathy Vitamin D deficiency -Continue home supplemental vitamin D History of subdural hematoma -No acute issues DVT prophylaxis -Heparin 3 times daily CODE STATUS -DNR CCA with no intubation per discussion yesterday with patient and daughter Charges/Coding Visit Charges Inpatient E&M: 10984 Subs Hosp L2 08/09/23 5896 <Electronically signed by Kate Horton DO> Cosigner Signature (if applicable): CC: ~ Signed [facility] Work Phone: [phone]) [phone] Progress note Author Kate Hortno [facility] August 08, 2023 5:17pm Note Date/Time August 08, 2023 5:0 1pm [facility] Medical Records Department [address] [place] [address] Progress Note - Hospitalist 08/08/23 1542 MR#: [id number] Acct: [id number] Name: JAIME ANN Rep #:[id number] : 1940 83 From: Kate Horton DO PCP: RENETTA Justice Status:ADM IN Location: [place] [address]- 1 Reason for Visit Reason for Visit: Shortness of breath Subjective Subjective Mr. Ann is an 83-year-old white male [facility] due to shortness of breath. He reportedthat it started about 2 weeks ago but his daughter was at the bedside and feels that it happened the day prior to presentation. Upon presentation the emergencydepartment his oxygenation was stable on room air however when he would move around in bed he dropped to the 70s. He was subsequently placed on oxygen at that time. He denied any fever chills or lower extremity edema. He had previously been on diuretics but had been stopped at some point by his primary care today after for uncertain reasons. He does have a known history of cardiomyopathy with a previous echocardiogram done in 2022 that demonstrated an EF of 30% with moderately dilated LV, mild concentric LVH, indeterminate diastolic dysfunction, moderate left atrial lodgment, severe mitral valve insufficiency, mild aortic and pulmonic valve insufficiency. Vitalsigns on presentation showed a temperature of 36 ?C, heart rate was 95, blood pressure was initially 171/94 with a pulse ox of 93% on room air and a respiratoryrate of 22. His CBC shows a markedly elevated white count however this is chronic and stable, he is a chronic stable anemia with a normal platelet count and no left shift. CBC does show a significant lymphocytosis, which again is chronic and stable. His chemistry panel showed chronic stable serum creatinine elevation at 1.91 with a slightly elevated glucose at 121. His troponin was 34 and his BNP was 4227.8 which is markedly elevated when compared to previous numbers at which time he was admitted. His daughter does not think he weighs himself, watches his diet or watches his fluid intake. He was admitted to the PCU and started on IV Lasix and a repeat echocardiogram was ordered. Today the patient states that he is feeling better overall and his breathing is improved. Objective Data Objective Data Vital Signs: Vital Signs Temp Pulse Resp BP Pulse Ox O2 Del Method O2 Flow Rate 97.3 F L 76 16 150/96 H 91 Room Air 2 08/08/23 10:33 08/08/23 10:33 08/08/23 10:33 08/08/23 10:33 08/08/23 13:23 08/08/23 13:23 08/08/23 13:23 Oxygen Flow Rate (L/min) 2 Oxygen Delivery Method Room Air Weight: 78 kg Body Mass Index (BMI) 24.6 Intake & Output: Intake and Output for Last 24 Hours 08/06/23 08/07/23 08/08/23 23:59 23:59 23:59 Intake Total 520 / 520 Output Total 200 / 200 Balance -200 / -200 520 / 520 Lab / Micro Data 08/08/23 06:50 08/08/23 06:50 Labs: Laboratory Results - last 24 hr 08/08/23 06:50: WBC 51.3 H*, RBC 3.59 L, Hgb 9.7 L, Hct 31.5 L, MCV 87.7, MCH 27.0, MCHC 30.8 L, RDW Std Deviation 56.9 H, RDW Coeff of Willie 18.0 H, Plt Count 236, MPV 10.5, Immature Gran % (Auto) 0.400, Neut % (Auto) 10.9 L, Lymph % (Auto) 84.2 H, Campbell % (Auto) 3.4, Eos % (Auto) 0.7, Baso % (Auto) 0.4, Absolute Neuts (auto) 5.6, Absolute Lymphs (auto) 43.22 H, Nucleated RBC % 0, Diff Path Review May foll, Smudge Cells 2+, Anisocytosis 2+, Sodium 141, Potassium 3.8, Chloride 108 H, Carbon Dioxide 27.0, Anion Gap 6, BUN 44 H, Creatinine 1.94 H, Estim Creat Clear Calc 28.74, Est GFR (MDRD) Af Amer 43 L, Est GFR (MDRD) Non-Af35 L, BUN/Creatinine Ratio 22.7 H, Glucose 128 H, Calcium 9.0 Micro: Microbiology 08/07/23 13:20 Mucosa - Nose SARS-CoV-2, Influenza & RSV (PCR) - Final Radiography Diagnostic Testing: Radiology Impression Echocardiogram 08/07/23 16:14 Interpretation Summary The estimated ejection fraction is 30 %. Stage 2 diastolic dysfunction. Moderate concentric left ventricular hypertrophy. Moderately severe (3+) eccentric mitral valve insufficiency. Mild (1+) tricuspid valve insufficiency. Pulmonary artery systolic pressure is 57 mmHg. Mild (1+) aortic valve insufficiency. No significant change from prior echocardiogram Ordering Physician: Yovani Soto Referring Physician: Kenn Turcios Performed By: Madison Romero, RACHANA Physical Exam Const alert, oriented x3, no apparent distress, average body habitus and well nourished; Negative for healthy appearing Constitutional Narrative: Elderly, white male, lying in bed sleeping upon my arrival however his daughter was at the bedside, he awakened quite easily HEENT head/scalp atraumatic and moist oral mucous membranes HEENT Narrative: Mallampati 2, no thrush Head and Scalp: normocephalic Eyes PERRL, EOMs intact bilaterally and conjunctivae normal Eyes Narrative: No scleral icterus Neck no lymphadenopathy, supple and No no JVD Neck Narrative: Positive JVD, trachea midline Resp normal respiratory effort, no retractions, no use of accessory muscles and No clear to auscultation bilaterally Resp Narrative: Crackles at bases bilaterally, no signs of respiratory distress at rest and patient is on room air Auscultation: crackles; Negative for rhonchi or wheezes Cardio regular rate, regular rhythm, S1 normal heart sound, S2 normal heart sound, no murmurs, no rub, no gallops and no clicks GI normal to inspection, nondistended, normoactive bowel sounds, soft to palpation and non-tender Extremity Extremity Narrative: Trace bilateral lower extremity edema, no cyanosis or clubbing Skin no wounds, skin turgor normal, no jaundice, no petechiae and no mottling Skin Narrative: Scattered ecchymosis, thin skin Neuro oriented x3, moves all extremities and no focal motor deficits Speech: speech normal Psych affect normal Psych Narrative: Very pleasant, eye contact is good Assessment & Plan Assessment/Plan (1) Hypoxemia: PLAN: Plan Hypoxia and shortness of breath secondary to acute exacerbation of heart failurewith reduced ejection fraction -EF at baseline is 30% and repeat echo done today is stable when compared to previous echo from 2022 -This is a nonischemic cardiomyopathy -Continue home goal-directed therapy with carvedilol and Entresto -Will transition from intermittent IV push diuretics to Lasix drip -BNP on admission was greater than 4000 -Salt restricted diet to 2 g and fluid restrict to 1500 cc daily -Check daily weights -Accurate I's and O's -Will ensure patient has cardiology follow-up after discharge CKD stage IIIb -Baseline serum creatinine appears to run between 1.9 and 2.4 -Stable with diuretics at this point -Patient did have CT angiogram due to elevated D-dimer on presentation so we will need to monitor closely especially with diuretics 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 -Management as above -Chronic left bundle branch on EKG -ICD pacer in place HTN/HPL -Continue Entresto -Continue Coreg -Continue home statin History of prostate cancer -Follows as an outpatient with oncology and urology -Diagnosis stage IIIa in 2016 History of orthostatic hypotension -No signs of any current issues Vitamin D deficiency -Continue home supplemental vitamin D History of subdural hematoma -No acute issues DVT prophylaxis -Heparin 3 times daily CODE STATUS -Further discussion today with patient and daughter and they have elected for DNR CCA with no intubation--> order changed to address this Charges/Coding Visit Charges Inpatient E&M: 52537 Subs Hosp 08/08/23 1717 <Electronically signed by Kate Horton DO> Cosigner Signature (if applicable): CC: ~ Signed [facility] Work Phone: [phone]) 190-813103-26-2024 History and physical note Author Yovani Soto [facility] August 07, 2023 3:58pm Note Date/Time August 07, 2023 3:5 3pm [facility] Medical Records Department [address] [place] [address] H&P Exam - Hospitalist 08/07/23 1548 MR#: [id number] Acct: [id number] Name: JAIME ANN Rep #:[id number] : 1940 83 From: Yovani Soto DO PCP: RENETTA Justice Status:ADM IN Location: [facility] [id number]- [id number] HPI - General General Date of Admission: 08/07/23 Date of Service: 08/07/23 Chief Complaint: shortness of breath. HPI Narrative JAIME ANN, is a 83 M who presents with shortness of breath. He states it began 2 weeks ago but the patient's daughter, is at bedside, stated that happened yesterday. Patient presented to the emergency room and his oxygen was okay but when he would move around in bed, dropped down to the 70s. Patient wassubsequent placed on oxygen. Denies any fever or chills. Denies any lower extremity edema. Patient had been on furosemide but had been stopped at some point by his primary care doctor. Reasoning for the discontinuation is unknown to the patient. Patient had a elevated BNP of 4000, D-dimer was elevated at 1.43. CTA of the chest showed bilateral pleural effusions and increased interstitial markings consistent with CHF. Patient did receive IV furosemide in the emergency room. [facility] Medical History Back pain due to injury CKD (chronic kidney disease), stage III CLL (chronic lymphocytic leukemia) Essential hypertension HFrEF (heart failure with reduced ejection fraction) High cholesterol Iron deficiency anemia LBBB (left bundle branch block) Non-ischemic cardiomyopathy Orthostatic hypotension Pacemaker Peripheral neuropathy Prostate cancer Restless leg syndrome Subdural hematoma Ventricular tachycardia Home Medications cholecalciferol (vitamin D3) 25 mcg (1,000 unit) capsule (Vitamin D3) 50 mcg PO DAILY 08/09/16 [History Last Taken 03/31/23] carvedilol 25 mg tablet 25 mg PO BID 08/24/16 [History Last Taken 03/04/23] glucosamine 750 la-tzeumyjjacz-rjw no1 644 mg-C 30 mg-jesus 1 mg tablet (Osteo Bi-Flex Triple Strength) 1 ea PO DAILY 08/24/16 [History Last Taken 03/31/23] sacubitril 49 mg-valsartan 51 mg tablet (Entresto) 1 tab PO BID 08/24/22 [History Last Taken 03/31/23] zinc acetate 50 mg (zinc) capsule 50 mg PO DAILY 08/24/22 [History Last Taken 03/31/23] atorvastatin 10 mg tablet 10 mg PO DAILY 03/04/23 [History Last Taken 03/30/23] tamsulosin 0.4 mg capsule 0.4 mg PO DAILY 30 days #30 caps 03/06/23 [Rx Last Taken 03/31/23] ondansetron 4 mg disintegrating tablet 4 mg PO Q6H PRN nausea and vomiting #10 tabs 03/15/23 [Rx Last Taken Unknown] polysaccharide iron complex 150 mg iron capsule (Ferrex) 150 mg PO DAILY #30 caps 03/20/23 [Rx Last Taken 03/31/23] nortriptyline 50 mg capsule 50 mg PO BID neuropathy 03/31/23 [History Last Taken 03/31/23] multivitamin (Daily Multi-Vitamin tablet) 1 tab PO DAILY 08/07/23 [History Last Taken Unknown] potassium chloride 10 mEq capsule,extended release 10 meq PO DAILY 08/07/23 [History Last Taken Unknown] Allergy/AdvReac Type Severity Reaction Status Date / Time lisinopril AdvReac Unknown cough Verified 08/07/23 12:30 Family History Mother CVA (cerebral vascular accident) Hypertension Diabetes Father Ischemic heart disease Diabetes Surgical History Cardiac 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 therapy defibrillator (MATTRESS STRIPPER-D) in place (~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 No fever or chills. All review of systems were negative except as mentioned above in the history of present illness and the other reviewof systems. Vital Signs Vital Signs Vital Signs: 08/07/23 12:30 08/07/23 12:30 08/07/23 12:33 Temperature 36.0 C L 36.5 C L Temperature Source Temporal Oral Pulse Rate 95 93 95 Respiratory Rate 22 H 22 H 23 H Respiratory Effort Respiratory Depth Respiratory Pattern Blood Pressure 171/94 H 171/94 H 179/94 H Blood Pressure Mean 119 119 122 Pulse Ox 93 94 91 Oxygen Delivery Method Room Air Room Air Room Air 08/07/23 12:41 08/07/23 13:18 08/07/23 13:23 Temperature Temperature Source Pulse Rate 84 Respiratory Rate 22 H Respiratory Effort Normal Non-Labored Respiratory Depth Normal Respiratory Pattern Normal Tachypnea Blood Pressure Blood Pressure Mean Pulse Ox Oxygen Delivery Method Room Air Room Air 08/07/23 13:33 08/07/23 14:00 08/07/23 15:05 Temperature 36.6 C 36.6 C Temperature Source Oral Oral Pulse Rate 82 83 Respiratory Rate 23 H 17 24 H Respiratory Effort Respiratory Depth Respiratory Pattern Blood Pressure 157/87 H 161/85 H Blood Pressure Mean 110 108 Pulse Ox 94 92 79 Oxygen Delivery Method Room Air Room Air 08/07/23 15:40 Temperature 36.7 C Temperature Source Pulse Rate 81 Respiratory Rate 18 Respiratory Effort Respiratory Depth Respiratory Pattern Blood Pressure 159/93 H Blood Pressure Mean 115 Pulse Ox 98 Oxygen Delivery Method Weight Weight: 80.739 kg Body Mass Index (BMI) 25.5 Physical Exam Const alert and no apparent distress General Appearance: cooperative HEENT normocephalic and head/scalp atraumatic Eyes Eyes Narrative: No icterus Neck no lymphadenopathy Neck Narrative: No thyromegaly. Patient has loose skin on his I appreciate any JVD. Resp Resp Narrative: Bibasilar wheezes. Dullness percussion in the bases bilaterally. Cardio regular rate, regular rhythm, S1 normal heart sound and S2 normal heart sound GI normal to inspection, nondistended, normoactive bowel sounds, soft to palpation,non-tender and non-distended Extremity Extremity Narrative: Trace lower extremity edema. Skin Skin Narrative: No rashes or lesions. Neuro oriented x3 and moves all extremities Sensorium / Orientation: awake and alert Psych affect normal Results Lab / Micro Data Attestation: I reviewed the patient's lab results. 08/07/23 13:37 08/07/23 13:37 Labs: Laboratory Results - last 24 hr 08/07/23 13:37: WBC 55.2 H*, RBC 3.50 L, Hgb 9.2 L, Hct 30.7 L, MCV 87.7, MCH 26.3 L, MCHC 30.0 L, RDW Std Deviation 57.8 H, RDW Coeff of Willie 18.3 H, Plt Count 236, MPV 10.4, Immature Gran % (Auto) 0.400, Neut % (Auto) 11.0 L, Lymph %(Auto) 82.7 H, Campbell % (Auto) 5.2, Eos % (Auto) 0.4, Baso % (Auto) 0.3, Absolute Neuts (auto) 6.1, Absolute Lymphs (auto) 45.68 H, Nucleated RBC % 0, Differential Comment SCANNED, Diff Path Review May foll, Smudge Cells 2+, D-Dimer Quant (PE/DVT) 1.43 H*, Sodium 143, Potassium 4.5, Chloride 110 H, Carbon Dioxide 25.0, Anion Gap 8, BUN 44 H, Creatinine 1.91 H, Estim Creat Clear Calc 29.20, Est GFR (MDRD) Af Amer 43 L, Est GFR (MDRD) Non-Af 36 L, BUN/Creatinine Ratio 23.0 H, Glucose 121 H, Lactic Acid 0.9, Calcium 9.1, Troponin I High Sens 34, B-Natriuretic Peptide 4227.8 H Micro: Microbiology 08/07/23 13:20 Mucosa - Nose SARS-CoV-2, Influenza & RSV (PCR) - Final EKG Initial EKG: EKG Rhythm Intrepretation: Ventricular Paced Imaging Radiology Impression Chest X-Ray 08/07/23 13:30 IMPRESSION: Mild cardiomegaly and the vascular congestion with CHF. Blunting of both costophrenic angles. Electronically Signed: Gerson Watkins MD at 13:48 EDT , Chest CTA 08/07/23 14:28 IMPRESSION: No evidence of bone embolism. Small bilateral pleural effusions with bibasilar atelectasis with superimposed scarring. Mild degree of increased interstitial markings suggestive of CHF. Multiple hepatic cysts. Enlarged retroperitoneal lymph nodes. Electronically Signed: Gerson Watkins MD at 15:19 EDT , Assessment & Plan Assessment/Plan (1) Acute exacerbation of CHF (congestive heart failure): PLAN: Plan Acute heart failure with reduced ejection fraction * EF 30% from 2 echocardiogram from March 2023. * Appears that the patient's weight is gone up about 3 to 4 kg since March * Continue with IV furosemide. Continue with sacubitril/valsartan. Continue with carvedilol * Caution with kidney function. Chronic kidney disease stage IIIb * Creatinine seems to be better than it was back in April where his creatinine was 2.4 at that time. It is 1.91 today. I suspect his worsening kidney function was why his furosemide was discontinued previously. * Caution with the IV furosemide but patient also had contrast with a CT angiogram. Chronic complicating medical conditions: * CLL:Following with Dr. Bush, initially diagnosed in 2003 * Chronic normocytic anemia: Stable * Recent nephrolithiasis with BL hydronephrosis secondary to acute staphylococcal complicated urinary tract infection with acute urinary retention: Required transient Hood placement, continued on Flomax, status post cystoscopy with laser intervention as well as follow-up TURP discharged on ciprofloxacin. Follow up w * Hypertension: Continue home regimen including Entresto, Coreg * Hyperlipidemia: We will continue patient on statin * Prostate cancer: Follows with Dr. Bush and urology, diagnosed stage IIa prostate cancer in 2016 status post radiation therapy, received LHRH agonist not currently on any treatment, status post recent TURP as noted. * Orthostatic hypotension: Noted historically, encourage cautious positional changes especially given diuresis as noted above, not currently on any midodrine, closely monitor, PT/OT/case management consulted for discharge planning. VTE prophylaxis with enoxaparin CODE STATUS: Addressed with the patient and his family at bedside. Patient was to be full code. Charges/Coding Visit Charges Inpatient E&M: 57604 Init Hosp L3 08/07/23 1558 <Electronically signed by Yovani Soto DO> Cosigner Signature (if applicable): CC: RENETTA Turcios; Dr. Yovani Soto DO~ Signed [facility] Work Phone: [phone]) 205-508503-26-2024 Discharge summary Author Ian Lujan [facility] August 07, 2023 3:29pm Note Date/Time August 07, 2023 1:1 6pm [facility] Medical Records Department [address] [place] [address] Emergency Department Summary 08/07/23 MR#: [id number] Acct: [id number] Name: ETHANJAIME MEHREEN Rep #:[id number] : 1940 83 From: Ian Lujan DO PCP: PO JusticeC Status:ADM IN Location: [place] [address] HPI History of Present Illness Chief Complaint: Shortness of Breath Detail of Chief Complaint: Shortness of breath Informant: patient Narrative Narrative: Patient presents with shortness of breath that started 2 days ago. Complains ofexertional dyspnea. Denies weight gain. Has had no fever. He started with a cough today. He had some sweats last night. Daughter came to visit from out [facility] today and noted that he had some increased confusion today. Patient with history of hypertension and cholesterol as well as CKD and history of CLL. Patient has a pacer and defibrillator. Patient denies any chest pain. He denies recent travel or surgery. No history of PE or DVT. [facility] Medical History Back pain due to injury CKD (chronic kidney disease), stage III CLL (chronic lymphocytic leukemia) Essential hypertension HFrEF (heart failure with reduced ejection fraction) High cholesterol Iron deficiency anemia LBBB (left bundle branch block) Non-ischemic cardiomyopathy Orthostatic hypotension Pacemaker Peripheral neuropathy Prostate cancer Restless leg syndrome Subdural hematoma Ventricular tachycardia Home Medications cholecalciferol (vitamin D3) 25 mcg (1,000 unit) capsule (Vitamin D3) 50 mcg PO DAILY 08/09/16 [History Last Taken 03/31/23] carvedilol 25 mg tablet 25 mg PO BID 08/24/16 [History Last Taken 03/04/23] glucosamine 750 oz-kplfrybnwlv-dum no1 644 mg-C 30 mg-jesus 1 mg tablet (Osteo Bi-Flex Triple Strength) 1 ea PO DAILY 08/24/16 [History Last Taken 03/31/23] sacubitril 49 mg-valsartan 51 mg tablet (Entresto) 1 tab PO BID 08/24/22 [History Last Taken 03/31/23] zinc acetate 50 mg (zinc) capsule 50 mg PO DAILY 08/24/22 [History Last Taken 03/31/23] atorvastatin 10 mg tablet 10 mg PO DAILY 03/04/23 [History Last Taken 03/30/23] tamsulosin 0.4 mg capsule 0.4 mg PO DAILY 30 days #30 caps 03/06/23 [Rx Last Taken 03/31/23] ondansetron 4 mg disintegrating tablet 4 mg PO Q6H PRN nausea and vomiting #10 tabs 03/15/23 [Rx Last Taken Unknown] polysaccharide iron complex 150 mg iron capsule (Ferrex) 150 mg PO DAILY #30 caps 03/20/23 [Rx Last Taken 03/31/23] nortriptyline 50 mg capsule 50 mg PO BID neuropathy 03/31/23 [History Last Taken 03/31/23] multivitamin (Daily Multi-Vitamin tablet) 1 tab PO DAILY 08/07/23 [History Last Taken Unknown] potassium chloride 10 mEq capsule,extended release 10 meq PO DAILY 08/07/23 [History Last Taken Unknown] Allergy/AdvReac Type Severity Reaction Status Date / Time lisinopril AdvReac Unknown cough Verified 08/07/23 12:30 Family History Mother CVA (cerebral vascular accident) Hypertension Diabetes Father Ischemic heart disease Diabetes Surgical History Cardiac 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 therapy defibrillator (MATTRESS STRIPPER-D) in place (~09/2015) History of arthroplasty of finger of left hand History of colonoscopy History of left heart catheterization (09/22/15) S/P TURP Splenic artery aneurysm Status post laser lithotripsy of ureteral calculus Social History household members: spouse Smoking Status: Never smoker alcohol intake: never substance use type: does not use caffeine: Yes Type: coffee Number of servings: 3 ROS ROS ED Review of Systems ROS Unobtainable: other Constitutional Constitutional ED: Reports lethargy; Denies chills, fever(s), sweats or weight loss Eyes Eyes: Denies blurry vision, change in vision or diplopia ENT ENT ED: Denies rhinorrhea or sore throat Cardiovascular Cardiovascular: Denies chest pain, orthopnea or racing heartbeat Respiratory/Chest Respiratory/Chest: Reports cough, dyspnea and dyspnea on exertion; Denies orthopnea or sputum Gastrointestinal Gastrointestinal: Denies abdominal pain, diarrhea, nausea or vomiting Genitourinary Genitourinary ED: Denies dysuria, hematuria or urinary frequency Musculoskeletal Musculoskeletal: Denies arthralgias, back pain, myalgias or neck pain Integumentary Denies abscess, Abrasions or rash Neurologic Neurologic: Denies headache(s) or weakness Psychiatric Psychiatric: Denies anxiety, depression or suicidal thoughts Endocrine Endocrinology: Denies polydipsia, polyphagia or polyuria Hematologic/Lymphatic Hematologic/Lymphatic: Denies easy bleeding, easy bruising or lymphadenopathy Allergic/Immunologic Allergic/Immunologic ED: Denies mouth swelling, tongue swelling or urticaria EXAM Physical Exam Const Vital Signs: 08/07/23 12:30 08/07/23 12:30 08/07/23 12:33 Temperature 96.8 F L 97.7 F L Temperature Source Temporal Oral Pulse Rate 95 93 95 Respiratory Rate 22 H 22 H 23 H Respiratory Effort Respiratory Depth Respiratory Pattern Blood Pressure 171/94 H 171/94 H 179/94 H Blood Pressure Mean 119 119 122 Pulse Ox 93 94 91 Oxygen Delivery Method Room Air Room Air Room Air 08/07/23 12:41 08/07/23 13:18 08/07/23 13:23 Temperature Temperature Source Pulse Rate 84 Respiratory Rate 22 H Respiratory Effort Normal Non-Labored Respiratory Depth Normal Respiratory Pattern Normal Tachypnea Blood Pressure Blood Pressure Mean Pulse Ox Oxygen Delivery Method Room Air Room Air 08/07/23 13:33 08/07/23 14:00 Temperature 97.8 F 97.9 F Temperature Source Oral Oral Pulse Rate 82 83 Respiratory Rate 23 H 17 Respiratory Effort Respiratory Depth Respiratory Pattern Blood Pressure 157/87 H 161/85 H Blood Pressure Mean 110 108 Pulse Ox 94 92 Oxygen Delivery Method Room Air Positive well nourished and well developed General Appearance ED: well developed and NAD HEENT Reports TM's clear and moist mucous membranes normocephalic and atraumatic; Negative for trauma or tenderness Tympanic Membrane ED: Yes TM's clear Eyes PERRL and EOMs intact bilaterally General Eye ED: Negative for pale conjunctiva or scleral icterus Neck no lymphadenopathy, supple and no JVD General: Negative for tenderness Chest Wall inspection of chest normal and palpation of chest normal Chest: Negative for tenderness Resp normal respiratory effort and clear to auscultation bilaterally Resp Narrative: Rales noted in the right base. He does have tachypnea with some mild conversational dyspnea at rest. No accessory muscle use or retractions. Effort and Inspection: Negative for respiratory distress or pain with movement Auscultation: Negative for rhonchi, wheezes or diminished lung sounds Cardio regular rate, regular rhythm, S1 normal heart sound, S2 normal heart sound and no murmurs Peripheral Pulses: pulses 2+ throughout GI normal to inspection, nondistended, normoactive bowel sounds, soft to palpation,non-tender, non-distended and no masses Back/Spine no CVA tenderness and no thoracic nor lumbar tenderness Extremity normal to inspection Extremity Narrative: Trace edema both lower extremities. Neuro oriented x3, CN's II-XII intact bilaterally, no sensory deficits noted and gait normal Sensorium / Orientation: awake, alert, oriented to person, oriented to place andoriented to time Motor Exam: strength 5/5 throughout and strength abnormal Psych mental status grossly normal Skin no rashes or lesions noted and no wounds MDM MDM MDM Narrative Medical decision making narrative: Patient presents with dyspnea. History of CLL. Denies fever. He did develop acough today. He denied having history of CHF or COPD to me. IV line established. EKG obtained showed atrially sensed ventricularly paced rhythm with rate of 81 bpm with left bundle branch block morphology. CBC with differential showed a white count of 55,000 with hemoglobin 9.2 and platelet count of 236. Chemistries unremarkable. BUN was 44 and creatinine 1.91. D-dimer elevated 1.43. BNP was elevated 4227. Troponin was 34. Did review his prior medical records and it is noted that he does have history of CHF. Patienthad an echocardiogram in March 2023 that showed an EF of 30%. Patient was given Lasix 40 mg IV and started nitro paste. With minimal movement patient desaturates O2 sats down into the 70s. Case will be discussed with hospitalist to evaluate patient for admission. I did obtain a CTA of the chest to rule out PE given his history of CLL and elevated D-dimer and dyspnea. Official report pending but on my interpretation I do not appreciate any obvious PEs and did note bilateral pleural effusions and pulmonary edema. Lab Data Attestation: I reviewed the patient's lab results. Labs: Laboratory Results - last 24 hr 08/07/23 13:37 WBC 55.2 H* RBC 3.50 L Hgb 9.2 L Hct 30.7 L MCV 87.7 MCH 26.3 L MCHC 30.0 L RDW Std Deviation 57.8 H RDW Coeff of Willie 18.3 H Plt Count 236 MPV 10.4 Immature Gran % (Auto) 0.400 Neut % (Auto) 11.0 L Lymph % (Auto) 82.7 H Campbell % (Auto) 5.2 Eos % (Auto) 0.4 Baso % (Auto) 0.3 Absolute Neuts (auto) 6.1 Absolute Lymphs (auto) 45.68 H Nucleated RBC % 0 Differential Comment SCANNED Diff Path Review May foll Smudge Cells 2+ D-Dimer Quant (PE/DVT) 1.43 H* Sodium 143 Potassium 4.5 Chloride 110 H Carbon Dioxide 25.0 Anion Gap 8 BUN 44 H Creatinine 1.91 H Estim Creat Clear Calc 29.20 Est GFR (MDRD) Af Amer 43 L Est GFR (MDRD) Non-Af 36 L BUN/Creatinine Ratio 23.0 H Glucose 121 H Lactic Acid 0.9 Calcium 9.1 Troponin I High Sens 34 B-Natriuretic Peptide 4227.8 H Radiography Diagnostic Testing: Clinical Impression(s) from Imaging Studies Chest X-Ray 08/07/23 13:30 IMPRESSION: Mild cardiomegaly and the vascular congestion with CHF. Blunting of both costophrenic angles. Electronically Signed: Gerson Watkins MD at 13:48 EDT , 1 view chest x-ray obtained interpreted by myself as cardiomegaly with pulmonarycongestion and small pleural effusions. Radiology in agreement noted cardiomegaly and vascular congestion with CHF. EKG Initial EKG: Attestation: I personally reviewed and interpreted this EKG as follows: Comments: Atrially sensed and ventricularly paced rhythm with rate of 81 bpm with left bundle branch block morphology. Discharge Plan Triage Chief Complaint: Shortness of Breath Other Complaint: Cough ED Provider: Ian Lujan Dx/Rx/DC Orders Clinical Impression: Acute exacerbation of CHF (congestive heart failure), Personal history of chronic lymphocytic leukemia, Hypoxemia, Leukocytosis Prescriptions: No Action Entresto 49-51 mg tablet 1 tab PO BID Hold Instructions: Resume on 03/15/23. zinc acetate 50 mg (zinc) capsule 50 mg PO DAILY polysaccharide iron complex [Ferrex 150] 150 mg iron capsule 150 mg PO DAILY Qty: 30 1RF cholecalciferol (vitamin D3) [Vitamin D3] 1,000 UNIT capsule 50 mcg PO DAILY Patient Comments: pt unsure if 25mcg or 50 mcg carvedilol 25 MG tablet 25 mg PO BID Osteo Bi-Flex Triple Strength 1 EACH tablet 1 ea PO DAILY atorvastatin 10 mg tablet 10 mg PO DAILY tamsulosin 0.4 mg Capsule 0.4 mg PO DAILY 30 Days Qty: 30 0RF ondansetron 4 mg tablet,disintegrating 4 mg PO Q6H PRN (Reason: nausea and vomiting) Qty: 10 0RF nortriptyline 50 mg capsule 50 mg PO BID multivitamin [Daily Multi-Vitamin] Tablet 1 tab PO DAILY potassium chloride 10 mEq capsule, extended release 10 meq PO DAILY Primary Care Provider: Kenn Turcios NP Referrals: Kenn Turcios NP, GARNETT FEEDER-C [Primary Care Provider] - Disposition Disposition: Acute Care Hospital [facility] What to do if you have Problems For any increased pain, shortness of breath, bleeding, nausea or vomiting, chestpain, or any unexpected problems, contact your Primary Care Provider. Call [facility] ([phone]) or report to the closest Emergency Room. Call 911 if necessary. 08/07/23 1529 <Electronically signed by Ian Lujan DO> Cosigner Signature (if applicable): CC: RENETTA Turcios ~ Signed [facility] Work Phone: 1(370) 284-981003-26-2024 Discharge summary Author Ian [facility] August 07, 2023 3:29pm Note Date/Time August 07, 2023 1:1 6pm [facility] Medical Records Department [address] [place] [address] Emergency Department Summary 08/07/23 MR#: [id number] Acct: [id number] Name: JAIME ANN MEHREEN Rep #:[id number] : 1940 83 From: Ian Lujan DO PCP: RENETTA Justice Status:ADM IN Location: [place] [address] HPI History of Present Illness Chief Complaint: Shortness of Breath Detail of Chief Complaint: Shortness of breath Informant: patient Narrative Narrative: Patient presents with shortness of breath that started 2 days ago. Complains ofexertional dyspnea. Denies weight gain. Has had no fever. He started with a cough today. He had some sweats last night. Daughter came to visit from out [facility] today and noted that he had some increased confusion today. Patient with history of hypertension and cholesterol as well as CKD and history of CLL. Patient has a pacer and defibrillator. Patient denies any chest pain. He denies recent travel or surgery. No history of PE or DVT. [facility] Medical History Back pain due to injury CKD (chronic kidney disease), stage III CLL (chronic lymphocytic leukemia) Essential hypertension HFrEF (heart failure with reduced ejection fraction) High cholesterol Iron deficiency anemia LBBB (left bundle branch block) Non-ischemic cardiomyopathy Orthostatic hypotension Pacemaker Peripheral neuropathy Prostate cancer Restless leg syndrome Subdural hematoma Ventricular tachycardia Home Medications cholecalciferol (vitamin D3) 25 mcg (1,000 unit) capsule (Vitamin D3) 50 mcg PO DAILY 08/09/16 [History Last Taken 03/31/23] carvedilol 25 mg tablet 25 mg PO BID 08/24/16 [History Last Taken 03/04/23] glucosamine 750 wg-ukbsadsseyh-mqs no1 644 mg-C 30 mg-jesus 1 mg tablet (Osteo Bi-Flex Triple Strength) 1 ea PO DAILY 08/24/16 [History Last Taken 03/31/23] sacubitril 49 mg-valsartan 51 mg tablet (Entresto) 1 tab PO BID 08/24/22 [History Last Taken 03/31/23] zinc acetate 50 mg (zinc) capsule 50 mg PO DAILY 08/24/22 [History Last Taken 03/31/23] atorvastatin 10 mg tablet 10 mg PO DAILY 03/04/23 [History Last Taken 03/30/23] tamsulosin 0.4 mg capsule 0.4 mg PO DAILY 30 days #30 caps 03/06/23 [Rx Last Taken 03/31/23] ondansetron 4 mg disintegrating tablet 4 mg PO Q6H PRN nausea and vomiting #10 tabs 03/15/23 [Rx Last Taken Unknown] polysaccharide iron complex 150 mg iron capsule (Ferrex) 150 mg PO DAILY #30 caps 03/20/23 [Rx Last Taken 03/31/23] nortriptyline 50 mg capsule 50 mg PO BID neuropathy 03/31/23 [History Last Taken 03/31/23] multivitamin (Daily Multi-Vitamin tablet) 1 tab PO DAILY 08/07/23 [History Last Taken Unknown] potassium chloride 10 mEq capsule,extended release 10 meq PO DAILY 08/07/23 [History Last Taken Unknown] Allergy/AdvReac Type Severity Reaction Status Date / Time lisinopril AdvReac Unknown cough Verified 08/07/23 12:30 Family History Mother CVA (cerebral vascular accident) Hypertension Diabetes Father Ischemic heart disease Diabetes Surgical History Cardiac 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 therapy defibrillator (MATTRESS STRIPPER-D) in place (~09/2015) History of arthroplasty of finger of left hand History of colonoscopy History of left heart catheterization (09/22/15) S/P TURP Splenic artery aneurysm Status post laser lithotripsy of ureteral calculus Social History household members: spouse Smoking Status: Never smoker alcohol intake: never substance use type: does not use caffeine: Yes Type: coffee Number of servings: 3 ROS ROS ED Review of Systems ROS Unobtainable: other Constitutional Constitutional ED: Reports lethargy; Denies chills, fever(s), sweats or weight loss Eyes Eyes: Denies blurry vision, change in vision or diplopia ENT ENT ED: Denies rhinorrhea or sore throat Cardiovascular Cardiovascular: Denies chest pain, orthopnea or racing heartbeat Respiratory/Chest Respiratory/Chest: Reports cough, dyspnea and dyspnea on exertion; Denies orthopnea or sputum Gastrointestinal Gastrointestinal: Denies abdominal pain, diarrhea, nausea or vomiting Genitourinary Genitourinary ED: Denies dysuria, hematuria or urinary frequency Musculoskeletal Musculoskeletal: Denies arthralgias, back pain, myalgias or neck pain Integumentary Denies abscess, Abrasions or rash Neurologic Neurologic: Denies headache(s) or weakness Psychiatric Psychiatric: Denies anxiety, depression or suicidal thoughts Endocrine Endocrinology: Denies polydipsia, polyphagia or polyuria Hematologic/Lymphatic Hematologic/Lymphatic: Denies easy bleeding, easy bruising or lymphadenopathy Allergic/Immunologic Allergic/Immunologic ED: Denies mouth swelling, tongue swelling or urticaria EXAM Physical Exam Const Vital Signs: 08/07/23 12:30 08/07/23 12:30 08/07/23 12:33 Temperature 96.8 F L 97.7 F L Temperature Source Temporal Oral Pulse Rate 95 93 95 Respiratory Rate 22 H 22 H 23 H Respiratory Effort Respiratory Depth Respiratory Pattern Blood Pressure 171/94 H 171/94 H 179/94 H Blood Pressure Mean 119 119 122 Pulse Ox 93 94 91 Oxygen Delivery Method Room Air Room Air Room Air 08/07/23 12:41 08/07/23 13:18 08/07/23 13:23 Temperature Temperature Source Pulse Rate 84 Respiratory Rate 22 H Respiratory Effort Normal Non-Labored Respiratory Depth Normal Respiratory Pattern Normal Tachypnea Blood Pressure Blood Pressure Mean Pulse Ox Oxygen Delivery Method Room Air Room Air 08/07/23 13:33 08/07/23 14:00 Temperature 97.8 F 97.9 F Temperature Source Oral Oral Pulse Rate 82 83 Respiratory Rate 23 H 17 Respiratory Effort Respiratory Depth Respiratory Pattern Blood Pressure 157/87 H 161/85 H Blood Pressure Mean 110 108 Pulse Ox 94 92 Oxygen Delivery Method Room Air Positive well nourished and well developed General Appearance ED: well developed and NAD HEENT Reports TM's clear and moist mucous membranes normocephalic and atraumatic; Negative for trauma or tenderness Tympanic Membrane ED: Yes TM's clear Eyes PERRL and EOMs intact bilaterally General Eye ED: Negative for pale conjunctiva or scleral icterus Neck no lymphadenopathy, supple and no JVD General: Negative for tenderness Chest Wall inspection of chest normal and palpation of chest normal Chest: Negative for tenderness Resp normal respiratory effort and clear to auscultation bilaterally Resp Narrative: Rales noted in the right base. He does have tachypnea with some mild conversational dyspnea at rest. No accessory muscle use or retractions. Effort and Inspection: Negative for respiratory distress or pain with movement Auscultation: Negative for rhonchi, wheezes or diminished lung sounds Cardio regular rate, regular rhythm, S1 normal heart sound, S2 normal heart sound and no murmurs Peripheral Pulses: pulses 2+ throughout GI normal to inspection, nondistended, normoactive bowel sounds, soft to palpation,non-tender, non-distended and no masses Back/Spine no CVA tenderness and no thoracic nor lumbar tenderness Extremity normal to inspection Extremity Narrative: Trace edema both lower extremities. Neuro oriented x3, CN's II-XII intact bilaterally, no sensory deficits noted and gait normal Sensorium / Orientation: awake, alert, oriented to person, oriented to place andoriented to time Motor Exam: strength 5/5 throughout and strength abnormal Psych mental status grossly normal Skin no rashes or lesions noted and no wounds MDM MDM MDM Narrative Medical decision making narrative: Patient presents with dyspnea. History of CLL. Denies fever. He did develop acough today. He denied having history of CHF or COPD to me. IV line established. EKG obtained showed atrially sensed ventricularly paced rhythm with rate of 81 bpm with left bundle branch block morphology. CBC with differential showed a white count of 55,000 with hemoglobin 9.2 and platelet count of 236. Chemistries unremarkable. BUN was 44 and creatinine 1.91. D-dimer elevated 1.43. BNP was elevated 4227. Troponin was 34. Did review his prior medical records and it is noted that he does have history of CHF. Patienthad an echocardiogram in March 2023 that showed an EF of 30%. Patient was given Lasix 40 mg IV and started nitro paste. With minimal movement patient desaturates O2 sats down into the 70s. Case will be discussed with hospitalist to evaluate patient for admission. I did obtain a CTA of the chest to rule out PE given his history of CLL and elevated D-dimer and dyspnea. Official report pending but on my interpretation I do not appreciate any obvious PEs and did note bilateral pleural effusions and pulmonary edema. Lab Data Attestation: I reviewed the patient's lab results. Labs: Laboratory Results - last 24 hr 08/07/23 13:37 WBC 55.2 H* RBC 3.50 L Hgb 9.2 L Hct 30.7 L MCV 87.7 MCH 26.3 L MCHC 30.0 L RDW Std Deviation 57.8 H RDW Coeff of Willie 18.3 H Plt Count 236 MPV 10.4 Immature Gran % (Auto) 0.400 Neut % (Auto) 11.0 L Lymph % (Auto) 82.7 H Campbell % (Auto) 5.2 Eos % (Auto) 0.4 Baso % (Auto) 0.3 Absolute Neuts (auto) 6.1 Absolute Lymphs (auto) 45.68 H Nucleated RBC % 0 Differential Comment SCANNED Diff Path Review May foll Smudge Cells 2+ D-Dimer Quant (PE/DVT) 1.43 H* Sodium 143 Potassium 4.5 Chloride 110 H Carbon Dioxide 25.0 Anion Gap 8 BUN 44 H Creatinine 1.91 H Estim Creat Clear Calc 29.20 Est GFR (MDRD) Af Amer 43 L Est GFR (MDRD) Non-Af 36 L BUN/Creatinine Ratio 23.0 H Glucose 121 H Lactic Acid 0.9 Calcium 9.1 Troponin I High Sens 34 B-Natriuretic Peptide 4227.8 H Radiography Diagnostic Testing: Clinical Impression(s) from Imaging Studies Chest X-Ray 08/07/23 13:30 IMPRESSION: Mild cardiomegaly and the vascular congestion with CHF. Blunting of both costophrenic angles. Electronically Signed: Gerson Watkins MD at 13:48 EDT Reading Location ID and State: [facility] / [place] , Service support , 1 view chest x-ray obtained interpreted by myself as cardiomegaly with pulmonarycongestion and small pleural effusions. Radiology in agreement noted cardiomegaly and vascular congestion with CHF. EKG Initial EKG: Attestation: I personally reviewed and interpreted this EKG as follows: Comments: Atrially sensed and ventricularly paced rhythm with rate of 81 bpm with left bundle branch block morphology. Discharge Plan Triage Chief Complaint: Shortness of Breath Other Complaint: Cough ED Provider: Ian Lujan Dx/Rx/DC Orders Clinical Impression: Acute exacerbation of CHF (congestive heart failure), Personal history of chronic lymphocytic leukemia, Hypoxemia, Leukocytosis Prescriptions: No Action Entresto 49-51 mg tablet 1 tab PO BID Hold Instructions: Resume on 03/15/23. zinc acetate 50 mg (zinc) capsule 50 mg PO DAILY polysaccharide iron complex [Ferrex 150] 150 mg iron capsule 150 mg PO DAILY Qty: 30 1RF cholecalciferol (vitamin D3) [Vitamin D3] 1,000 UNIT capsule 50 mcg PO DAILY Patient Comments: pt unsure if 25mcg or 50 mcg carvedilol 25 MG tablet 25 mg PO BID Osteo Bi-Flex Triple Strength 1 EACH tablet 1 ea PO DAILY atorvastatin 10 mg tablet 10 mg PO DAILY tamsulosin 0.4 mg Capsule 0.4 mg PO DAILY 30 Days Qty: 30 0RF ondansetron 4 mg tablet,disintegrating 4 mg PO Q6H PRN (Reason: nausea and vomiting) Qty: 10 0RF nortriptyline 50 mg capsule 50 mg PO BID multivitamin [Daily Multi-Vitamin] Tablet 1 tab PO DAILY potassium chloride 10 mEq capsule, extended release 10 meq PO DAILY Primary Care Provider: Kenn Turcios NP Referrals: Kenn Turcios GARNETT FEEDER, GARNETT FEEDER-C [Primary Care Provider] - Disposition Disposition: Acute Care Hospital [facility] What to do if you have Problems For any increased pain, shortness of breath, bleeding, nausea or vomiting, chestpain, or any unexpected problems, contact your Primary Care Provider. Call [facility] ([phone]) or report to the closest Emergency Room. Call 911 if necessary. 08/07/23 1529 <Electronically signed by Ian Lujan DO> Cosigner Signature (if applicable): CC: GARNETT FEEDER-C Kenn Turcios ~ Signed [facility] Work Phone: [phone] 182-973003-18-2024 Miscellaneous Notes* Telephone Encounter - Oanh Mcgraw - 2023 9:53 AM EDT Call from patient requesting refill. Requested Prescriptions Pending Prescriptions Disp Refills carvedilol (COREG) 25 mg tablet 180 tablet 3 Sig: Take 1 tablet by mouth two times a day with meals. Patient last seen 04/12/23 Oanh Mcgraw documented in [facility]24 NoteHNO ID: [id number] Author: KATE AGUIRRE MD Service: ? Author Type: Physician Type: Progress Notes Filed: 06/22/2023 14:36 Note Text: [facility] SURGERY PROGRESS NOTE Subjective INTERVAL HISTORY OF PRESENT ILLNESS: Continues to be asymptomatic and without complaints Had EGD/EUS with Dr. Pineda with biopsy of his enlarged lymph nodes and biopsy of an ampullary polyp Biopsy consistent with pyloric gland adenoma and lymph node biopsies negative for malignancy. No biliary obstruction clinically or biochemically. Objective PHYSICAL EXAM: BP 130/80 Pulse 65 Ht 5' 10" (1.78m) Wt 170 lb (77.1kg) SpO2 99% BMI 24.39 kg/(m2). Physical Exam Performed GENERAL: Alert, no distress, cooperative LUNGS: No respiratory distress ABDOMEN: Soft, nontender The remainder of the physical exam is noncontributory. 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 --Discussed with Dr. Pineda plan for endoscopic surveillance --Will defer to Dr. Pineda and if any change or worrisome features develop, happy to see him back Gypsy Aguirre MD [facility] History of Present illness Narrative* Kate Aguirre MD - 06/22/2023 2:32 PM EST [facility] SURGERY PROGRESS NOTE Subjective INTERVAL HISTORY OF PRESENT ILLNESS: Continues to be asymptomatic and without complaints Had EGD/EUS with Dr. Pineda with biopsy of his enlarged lymph nodes and biopsy of an ampullary polyp Biopsy consistent with pyloric gland adenoma and lymph node biopsies negative for malignancy. No biliary obstruction clinically or biochemically. Objective PHYSICAL EXAM: BP 130/80 Pulse 65 Ht 5' 10" (1.78m) Wt 170 lb (77.1kg) SpO2 99% BMI 24.39 kg/(m^2). Physical Exam Performed GENERAL: Alert, no distress, cooperative LUNGS: No respiratory distress ABDOMEN: Soft, nontender The remainder of the physical exam is noncontributory. 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 --Discussed with Dr. Pineda plan for endoscopic surveillance --Will defer to Dr. Pineda and if any change or worrisome features develop, happy to see him back Gypsy Aguirre MD [facility] Surgeon documented in this encounterOhio[facility]11-30-2023 NoteHNO ID: [id number] Author: Marta Patricio Service: ? Author Type: ? Type: Progress Notes Filed: 04/12/2023 12:41 PM Note Text: [facility] of Present illness Narrative* Marta Patricio - 04/12/2023 12:39 PM EST EKG documented in this encounterOhio[facility]11-30-2023 NoteHNO ID: [id number] Author: Apple Barnett MD Service: ? Author Type: Physician Type: Progress Notes Filed: 04/12/2023 2:02 PM Note Text: [facility] [place] [facility] SECTION OF HEART FAILURE and CARDIAC TRANSPLANT MEDICINE OUTPATIENT VISIT DATE April 12, 2023 OUTPATIENT VISIT TYPE Established Patient PRIMARY CARE PHYSICIAN: Kenn Turcios NP [address] [place] [address] CHIEF COMPLAINT: HF f/u NURSING INTAKE (Patient?s concerns and/or recent hospitalizations/ER visits): HF Nursing Assessment: Interim Hospitalizations and/or ER visits: 03/04/2023 UTI 03/12/2023 bladder stone; 03/31/2023 retention of fluid Chest Pain: no Skipping or irregular heartbeats: no Shortness of breath at rest: no Shortness of breath with activity: no Cough: yes Waking up in the middle of the night gasping for air: no Lightheadedness or dizziness: yes, when stand too quickly Feeling like you are going to pass out: no Actually passing out: no Poor energy level: no Unintentional weight gain: no Unintentional weight loss:yes, loss 12 lbs since last visit Swelling in your legs,feet, abdomen: no Filling up quickly when you eat: no HISTORY OF PRESENT ILLNESS: Hospitalized x 3 since last visit 1. S aureus UTI 03/04/23 2. Nephrolithiasis 03/12/23 with BL hydronephrosis secondary to acute staphyloco ccal complicated urinary tract infection with acute urinary retention. Required transient Hood placement, continued on Flomax, status post cystoscopy with laser intervention as well as follow-up TURP discharged on ciprofloxacin. 3. LUE and leg edema without DVT per 03/31/23. BNP 1597, Cr 2.09, BUN 37 Had echo on 04/02/23 locally PAST MEDICAL HISTORY Diagnosis Date Chronic lymphocytic leukemia (HCC) HTN (hypertension) Liver cyst Non-ischemic cardiomyopathy (HCC) Peripheral neuropathy Prostate cancer (HCC) s/p external radiation. no resection Splenic artery aneurysm (HCC) Subdural hematoma (HCC) summer 2015, after heart stopped and fell, s/p evacuation Ventricular tachycardia (HCC) in 1983 and 2015 PAST SURGICAL HISTORY Procedure Laterality Date MATTRESS STRIPPER ICD (ICDCRT) 09/2015 FASCT PALM W/WO Z-PLASTY TISSUE REARGMT/SKN GRFT Left 04/04/2019 Left palmar fasciectomy HAND SURGERY HX 2014 detrupens contracture PAST SURGICAL HISTORY OF Right CMC arthroplasty PAST SURGICAL HISTORY OF percutaneous splenic artery aneurysm repair VASCULAR EMBOLIZATION OR OCCLUSION ARTERIAL RSANDI SOCIAL HISTORY Social History Tobacco Use Smoking status: Never Smokeless tobacco: Never Vaping Use Vaping Use: Never used Substance Use Topics Alcohol use: Yes Comment: rare use Drug use: No FAMILY HISTORY Problem Relation Age of Onset Stroke Mother Hypertension Mother Diabetes Mother Diabetes Father Ischemic Heart Disease Father ALLERGIES: ALLERGIES Allergen Reactions Lisinopril Cough CURRENT MEDICATIONS: tamsulosin (FLOMAX) 0.4 mgTake 0.4 mg by mouth once daily.Disp: Rfl: nortriptyline (PAMELOR) 50 mg capsuleTake 50 mg by mouth twice daily.Disp: Rfl: carvedilol (COREG) 25 mg tabletTake 1 tablet by mouth twice daily with meals.Disp: 180 tabletRfl: 3 atorvastatin (LIPITOR) 20 mg tabletTake 1 tablet by mouth once daily.Disp: 90 tabletRfl: 3 sacubitril-valsartan (ENTRESTO) 49-51 mg tabletTake 1 tablet by mouth twice daily.Disp: 60 tabletRfl: 11 OTC NUTRITIONAL SUPPLEMENT2 tablets once daily. Nerve Renew Disp: Rfl: ZINC ACETATE ORALTake by mouth once daily.Disp: Rfl: MULTI-VITAMIN ORALTake by mouth.Disp: Rfl: CHOLECALCIFEROL, VITAMIN D3, (VITAMIN D3 ORAL)Take 1,000 Units by mouth once daily. Disp: Rfl: [id number] serr 1,500-400-100 mg-unit-mg tabTake 1 tablet by mouth once daily.Disp: Rfl: REVIEW OF SYSTEMS: ROS HEART FAILURE PATIENT ENTERED DATA: No flowsheet data found. PHQ-9 06/19/2017 Score 3 PROMIS Global Health - (T-Scores - the mean of general population = 50. Five points is a clinically meaningful difference.) 06/19/2017 03/04/2019 03/04/2019 Physical T-Score 47.7 - - Mental T-Score 53.3 50.8 50.8 PHYSICAL EXAMINATION: BP 113/58 (BP Site: Left Arm) Pulse 81 Ht 175.3 cm (5' 9") Wt 75.2 kg (165 lb 11.2 oz) SpO2 98% BMI 24.47 kg/m? which is 8 lbs less than last visit. General: no distress, obese, accompanied by family Skin: No clubbing, no cyanosis. Eyes: Anicteric sclerae Neck: Neck veins are not distended, no carotid bruits Lungs: Chest clear to auscultation Heart: Irregular rate and rhythm, Rate: normal, no murmur Abdomen: No HSM, normal bowel sounds Extremities: No edema Labs on 10/26/2019: Na 140, K 4.0, BUN 18, Cr 1.1, WBC 32.6, hgb 12.4, plt 276 Labs Feb 2022 Alkphos 98, LDH 249, TC 45, TTG 110, LDL 147, Hgb a1C 6.2 Labs 05/24/22: WBC 52.9, hct 33.5, hgb 10.5, plt 221, TP 5.8, ALB 3.6, ALT 24, (more content not included)...[facility]11-30-[facility] History of Present illness Narrative* Apple Barnett MD - 04/12/2023 10:01 AM EST Images from the original note were not included. [facility] SECTION OF HEART FAILURE and CARDIAC TRANSPLANT MEDICINE OUTPATIENT VISIT DATE April 12, 2023 OUTPATIENT VISIT TYPE Established Patient PRIMARY CARE PHYSICIAN: Kenn Turcios NP [address] [place] [address] CHIEF COMPLAINT: HF f/u NURSING INTAKE (Patient s concerns and/or recent hospitalizations/ER visits): HF Nursing Assessment: Interim Hospitalizations and/or ER visits: 03/04/2023 UTI 03/12/2023 bladder stone; 03/31/2023 retention of fluid Chest Pain: no Skipping or irregular heartbeats: no Shortness of breath at rest: no Shortness of breath with activity: no Cough: yes Waking up in the middle of the night gasping for air: no Lightheadedness or dizziness: yes, when stand too quickly Feeling like you are going to pass out: no Actually passing out: no Poor energy level: no Unintentional weight gain: no Unintentional weight loss:yes, loss 12 lbs since last visit Swelling in your legs,feet, abdomen: no Filling up quickly when you eat: no HISTORY OF PRESENT ILLNESS: Hospitalized x 3 since last visit 1. S aureus UTI 03/04/23 2. Nephrolithiasis 03/12/23 with BL hydronephrosis secondary to acute staphyloco ccal complicated urinary tract infection with acute urinary retention. Required transient Hood placement, continued on Flomax, status post cystoscopy with laser intervention as well as follow-up TURP discharged on ciprofloxacin. 3. LUE and leg edema without DVT per 03/31/23. BNP 1597, Cr 2.09, BUN 37 Had echo on 04/02/23 locally PAST MEDICAL HISTORY Diagnosis Date Chronic lymphocytic leukemia (HCC) HTN (hypertension) Liver cyst Non-ischemic cardiomyopathy (HCC) Peripheral neuropathy Prostate cancer (HCC) s/p external radiation. no resection Splenic artery aneurysm (HCC) Subdural hematoma (HCC) summer 2015, after heart stopped and fell, s/p evacuation Ventricular tachycardia (HCC) in 1983 and 2015 PAST SURGICAL HISTORY Procedure Laterality Date MATTRESS STRIPPER ICD (ICDCRT) 09/2015 FASCT PALM W/WO Z-PLASTY TISSUE REARGMT/SKN GRFT Left 04/04/2019 Left palmar fasciectomy HAND SURGERY HX 2014 detrupens contracture PAST SURGICAL HISTORY OF Right CMC arthroplasty PAST SURGICAL HISTORY OF percutaneous splenic artery aneurysm repair VASCULAR EMBOLIZATION OR OCCLUSION ARTERIAL RS&I SOCIAL HISTORY Social History Tobacco Use Smoking status: Never Smokeless tobacco: Never Vaping Use Vaping Use: Never used Substance Use Topics Alcohol use: Yes Comment: rare use Drug use: No FAMILY HISTORY Problem Relation Age of Onset Stroke Mother Hypertension Mother Diabetes Mother Diabetes Father Ischemic Heart Disease Father ALLERGIES: ALLERGIES Allergen Reactions Lisinopril Cough CURRENT MEDICATIONS: tamsulosin (FLOMAX) 0.4 mg^Take 0.4 mg by mouth once daily.^Disp: ^Rfl: nortriptyline (PAMELOR) 50 mg capsule^Take 50 mg by mouth twice daily.^Disp: ^Rfl: carvedilol (COREG) 25 mg tablet^Take 1 tablet by mouth twice daily with meals.^Disp: 180 tablet^Rfl: 3 atorvastatin (LIPITOR) 20 mg tablet^Take 1 tablet by mouth once daily.^Disp: 90 tablet^Rfl: 3 sacubitril-valsartan (ENTRESTO) 49-51 mg tablet^Take 1 tablet by mouth twice daily.^Disp: 60 tablet^Rfl: 11 OTC NUTRITIONAL SUPPLEMENT^2 tablets once daily. Nerve Renew ^Disp: ^Rfl: ZINC ACETATE ORAL^Take by mouth once daily.^Disp: ^Rfl: MULTI-VITAMIN ORAL^Take by mouth.^Disp: ^Rfl: CHOLECALCIFEROL, VITAMIN D3, (VITAMIN D3 ORAL)^Take 1,000 Units by mouth once daily. ^Disp: ^Rfl: [id number] serr 1,500-400-100 mg-unit-mg tab^Take 1 tablet by mouth once daily.^Disp:^Rfl: REVIEW OF SYSTEMS: ROS HEART FAILURE PATIENT ENTERED DATA: No flowsheet data found. PHQ-9 06/19/2017 Score 3 PROMIS Global Health - (T-Scores - the mean of general population = 50. Five points is a clinicallymeaningful difference.) 06/19/2017 03/04/2019 03/04/2019 Physical T-Score 47.7 - - Mental T-Score 53.3 50.8 50.8 PHYSICAL EXAMINATION: BP 113/58 (BP Site: Left Arm) Pulse 81 Ht 175.3 cm (5' 9") Wt 75.2 kg (165 lb 11.2 oz) [id number]% BMI 24.47 kg/m which is 8 lbs less than last visit. General: no distress, obese, accompanied by family Skin: No clubbing, no cyanosis. Eyes: Anicteric sclerae Neck: Neck veins are not distended, no carotid bruits Lungs: Chest clear to auscultation Heart: Irregular rate and rhythm, Rate: normal, no murmur Abdomen: No HSM, normal bowel sounds Extremities: No edema Labs on 10/26/2019: Na 140, K 4.0, BUN 18, Cr 1.1, WBC 32.6, hgb 12.4, plt 276 Labs Feb 2022 Alkphos 98, LDH 249, TC 45, TTG 110, LDL 147, Hgb a1C 6.2 Labs 05/24/22: WBC 52.9, hct 33.5, hgb 10.5, plt 221, TP 5.8, ALB 3.6, ALT 24, AST 22, Tbili 0.5, Ca9.3, Na 142, K 4.6, BUN 38, Cr 1.68, glucose 94, TSH 2.84, Component Latest Ref Rng & Units 06/27/2019 07/29/2020 09/26/2022 Protein, Total 6.3 - 8.0 g/dL 5.9 (L) 5.8 (L) Albumin 3.9 - 4.9 g/dL 4.1 4.1 Calcium 8.5 - 10.2 mg/dL 9.2 9.4 9.3 Bilirubin, Total 0.2 - 1.3 mg/dL 0.2 0.3 Alkaline Phosphatase 38 - 113 U/L 79 88 AST 14 - 40 U/L 24 27 Glucose 74 - 99 mg/dL 92 96 120 (H) BUN 9 - 24 mg/dL 32 (H) 36 (H) 35 (H) Creatinine 0.73 - 1.22 mg/dL 1.37 (H) 1.38 (H) 1.87 (H) Sodium 136 - 144 mmol/L 142 142 143 Potassium 3.7 - 5.1 mmol/L 4.2 4.7 4.5 Chloride 97 - 105 mmol/L 103 106 (H) 108 (H) CO2 22 - 30 mmol/L 28 28 28 Anion Gap 9 - 18 mmol/L 11 8 (L) 7 (L) ALT 10 - 54 U/L 16 19 eGFR- >60 60 eGFR-All Other Races . 50 49 WBC 3.70 - 11.00 k/uL 30.68 (H) 44.71 (H) RBC 4.20 - 6.00 m/uL 3.94 (L) 3.91 (L) Hemoglobin 13.0 - 17.0 g/dL 10.9 (L) 10.6 (L) Hematocrit 39.0 - 51.0 % 35.6 (L) 34.0 (L) MCV 80.0 - 100.0 fL 90.4 87.0 MCH 26.0 - 34.0 pg 27.7 27.1 MCHC 30.5 - 36.0 g/dL 30.6 31.2 RDW-CV 11.5 - 15.0 % 15.9 (H) 16.8 (H) Platelet Count 150 - 400 k/uL 245 237 MPV 9.0 - 12.7 fL 9.5 9.2 Absolute nRBC <0.01 k/uL <0.01 <0.01 eGFR >=60 mL/min/1.73m 35 (L) NT Pro BNP <450 pg/mL 661 (H) CARDIOVASCULAR MEDICINE TESTING: Echocardiogram 07/04/16 LVEF = 34 5% (2D biplane) (Visually EF appears <35%). Echo 11/23/17: LVEF = 45 5% (visual est.) Echo 02/17/21: - The left ventricle is normal in size. LVEF = 45 5% (visual est.) - Echo 10/05/22: The left ventricle is normal in size. LVEF = 48 5% (2D biplane) Left ventricular diastolic function was not evaluated due to >2+ AI and >2+ MR. The right ventricle is normal in size. Right ventricular systolic function is low normal. The left atrial cavity is mildly dilated. (3+) holosystolic mitral valve regurgitation. Regurgitant orifice area (PISA) is 0.23 cm . (2+) aortic v alve regurgitation. - Exam was compared with the prior echocardiographic exam performed on 02/17/2021. Interval progression of MR severity. ICD check 04/03/23 MULTI CHAMBER ICD REMOTE EVALUATION: PRESENTING EGM: /BiV paced BATTERY STATUS: Estimated time remaining to CONNIE is 7.3 yrs COUNTERS SINCE: 01/18/23 ATRIAL ARRHYTHMIAS: None VENTRICULAR ARRHYTHMIAS: There have been no ventricular detections. VS episode marker channels showNSVT. LEAD MEASUREMENTS: Sensing is appropriate. Review of the lead impedance trends are normal. OTHER DIAGNOSTICS: RA pacing 24.6%. BiV pacing 98.2%. VSR pace 0.5%. VS 1.3%. Possible OptiVol fluid accumulation: 23-Mar-2023 -- ongoing. FOLLOW UP: Continue Q 3 month remote transmissions and yearly in-clinic interrogations. Brianna Romano RN ECG today: Sinus rhythm paced with irregularity in HR but not concerning when reviewed by EP Abdominal CT 10/29/2017: No significant change in the vascular configuration. 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 The low-density lesions in the liver getting larger so a 3-phase CT of the liver is suggested. IMPRESSION Mr. Ann is a 81 year old male with a history of CLL, h/o prostate cancer treated withXRT, hypertension, LBBB, VT with syncope and non ischemic cardiomyopathy s/p BiV ICD in September 2015 when he was evaluated for heart failure. His admission in September of 2015 was associated with a drop in EFfrom 54% to 20% within a year in the setting of a syncopal event that was felt to be VT/VF. The etiology of this decline in EF is uncertain and may be due to tachycardia mediated due to VT, LBBB induced or viral/idiopathic. His coronary angiogram did not show obstructive coronary disease. Unfortunately, he developed a subdural hematoma, likely during the syncopal event, which required surgical drainage November 2015.Overall he has done well except for dizziness. These episodes are worse whenever his blood pressure medications are increased including Entresto. Also has poorly tolerated norvasc. Had both ENT and neuro evaluation which did not reveal another cause for dizziness. Fell on deck many months ago and on cement. Blood pressure normal today. and pt euvolemic on examination today. Here for routine evaluation after 3 hospitalizations non-cardiac (S aureus UTI, kidney stone w/ hydronephrosis, and volume overload with Cr 2.0). Now doing ok with no edema and no diuretic therapy. Not clear if he had planned TURP and patient/ not sure either. Does have urology appt soon. Will have someone read his most recent echo which is on a disc since I cannot open it up with my software. Functional NYHA class II, Stage C. LVEF 48% with asymptomatic mitral and aortic regurgitation I spent 30 minutes in this visit, with more than 50% of the time devoted to patient counseling. PLAN AND RECOMMENDATIONS: 1. Labs today 2. Continue current medications. 3. Follow-up with me in 6 months 4. Urology appt soon Apple Barnett MD April 12, 2023 11:19 AM CC MD Kenn Mensah NP ( ) Addendum: Labs Component Latest Ref Rng & Units 09/26/2022 04/12/2023 Protein, Total 6.3 - 8.0 g/dL 5.7 (L) Albumin 3.9 - 4.9 g/dL 3.9 Calcium 8.5 - 10.2 mg/dL 9.3 9.5 Bilirubin, Total 0.2 - 1.3 mg/dL 0.3 Alkaline Phosphatase 38 - 113 U/L 74 AST 14 - 40 U/L 17 ALT 10 - 54 U/L 13 Glucose 74 - 99 mg/dL 120 (H) 95 BUN 9 - 24 mg/dL 35 (H) 52 (H) Creatinine 0.73 - 1.22 mg/dL 1.87 (H) 2.33 (H) Sodium 136 - 144 mmol/L 143 144 Potassium 3.7 - 5.1 mmol/L 4.5 4.9 Chloride 97 - 105 mmol/L 108 (H) 106 (H) CO2 22 - 30 mmol/L 28 29 Anion Gap 9 - 18 mmol/L 7 (L) 9 eGFR >=60 mL/min/1.73m 35 (L) 27 (L) ARF slightly worse than discharge. They will see urology soon and I reminded them that they need toknow if he has had the planned TURP or not Apple Barnett MD April 12, 2023 2:01 PM [facility]* Diagnosis Chronic systolic (congestive) heart failure (HCC)- Primary Acute renal failure with acute tubular necrosis superimposed on stage 3 chronic kidney disease, unspecified whether stage 3a or 3b CKD (HCC) VT (ventricular tachycardia) (HCC) Paroxysmal ventricular tachycardia Type 2 diabetes mellitus with hyperosmolarity without coma, unspecified whether mcc insulin use (HCC) 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 CLL (chronic lymphocytic leukemia) (HCC) Chronic lymphoid leukemia, without mention of having achieved remission Cardiomyopathy, nonischemic (HCC) Other primary cardiomyopathies Biventricular ICD (implantable cardioverter-defibrillator) in place Automatic implantable cardiac defibrillator in situ Subdural hematoma (HCC) Subdural hemorrhage LBBB (left bundle branch block) Other left bundle branch block History of prostate cancer Personal history of malignant neoplasm of prostate Essential hypertension Unspecified essential hypertension documented in this encounter [facility]11-20-[facility]23 Consult note Author Je Moralez [facility] April 02, 2023 12:26pm Note Date/Time April 02, 2023 12:26pm [facility] Medical Records Department [address] [place] [address] Counseling Note - Pharmacy 04/02/23 1225 MR#: [id number] Acct: [id number] Name: JAIME ANN Rep #:[id number] : 1940 82 From: Je Moralez PCP: RENETTA Justice Status:ADM STEVEN Y Location: [place] [address] Pharmacy [facility] has performed discharge medication reconciliation and counseling for this patient. The patient's discharge medication list was reviewed for discrepancies and discrepancies were resolved. The patient was counseled on the following discharge medications and changes in medications for homegoing were reviewed. The Reason for Use, instructions for use, and potential side effects were reviewed for all new medications. The patient's questions regarding all of their medications were answered. 1. furosemide 40 mg PO daily 2. potassium chloride 20 mEq PO daily The patient was able to verbally demonstrate an understanding of their dischargemedications. The patient was counselled on new medications by student affairs vice president Charly. Medications at Discharge Home Medications multivitamin (Daily Multiple tablet) 1 ea PO DAILY 03/15/15 cholecalciferol (vitamin D3) 25 mcg (1,000 unit) capsule (Vitamin D3) 50 mcg PO DAILY 08/09/16 carvedilol 25 mg tablet 25 mg PO BID 08/24/16 glucosamine 750 [id number] no1 644 mg-C 30 mg-jesus 1 mg tablet (Osteo Bi-Flex Triple Strength) 1 ea PO DAILY 08/24/16 sacubitril 49 mg-valsartan 51 mg tablet (Entresto) 1 tab PO BID 08/24/22 zinc acetate 50 mg (zinc) capsule 50 mg PO DAILY 08/24/22 atorvastatin 10 mg tablet 10 mg PO DAILY 03/04/23 tamsulosin 0.4 mg capsule 0.4 mg PO DAILY 30 days #30 caps 03/06/23 ondansetron 4 mg disintegrating tablet 4 mg PO Q6H PRN nausea and vomiting #10 tabs 03/15/23 polysaccharide iron complex 150 mg iron capsule (Ferrex) 150 mg PO DAILY #30 caps 03/20/23 nortriptyline 50 mg capsule 50 mg PO BID neuropathy 03/31/23 furosemide 40 mg tablet (Lasix) 40 mg PO DAILY #30 tabs 04/02/23 potassium chloride 20 mEq tablet,extended release 20 meq PO DAILY #30 tabs 04/02/23 04/02/23 1226 <Electronically signed by Je lopez> Date _ Je Moralez Cosigner Signature (if applicable): Date CC: ~ Signed [facility] Work Phone: 1(138) 731-812611-19-2023 Progress note Author Yovani Soto [facility] April 01, 2023 2:44pm Note Date/Time April 01, 2023 9:03am [facility] Medical Records Department [address] [place] [address] Progress Note - Hospitalist 04/01/23 0843 MR#: [id number] Acct: [id number] Name: JAIME ANN Rep #:[id number] : 1940 82 From: Yovani Soto DO PCP: Kenn Turcios NP-Gerry Status:ADM STEVEN Location: [place] [address] Reason for Visit Reason for Visit: Diagnoses Localized edema (03/31/23) Subjective Subjective Still with edema in his legs and his left upper extremity. Does not have edema in his right upper extremity. Denies any history of any trauma to his left arm nor any surgery though he does have a pacemaker in his left upper chest. Objective Data Objective Data Vital Signs: Vital Signs Temp Pulse Resp BP Pulse Ox O2 Del Method 36.6 C 63 18 136/64 H 94 Room Air 04/01/23 05:15 04/01/23 05:15 04/01/23 05:15 04/01/23 05:15 04/01/23 08:17 04/01/23 08:17 Oxygen Delivery Method Room Air Weight: 82.6 kg Body Mass Index (BMI) 27.6 Intake & Output: Intake and Output for Last 24 Hours 03/30/23 03/31/23 04/01/23 23:59 23:59 23:59 Intake Total 610 / 610 200 / 200 Output Total 900 / 900 800 / 800 Balance -290 / -290 -600 / -600 Lab / Micro Data 04/01/23 06:31 04/01/23 06:31 Labs: Laboratory Results - last 24 hr 03/31/23 14:30: WBC 51.2 H*, RBC 3.00 L, Hgb 7.8 L, Hct 26.7 L, MCV 89.0, MCH 26.0 L, MCHC 29.2 L, RDW Std Deviation 63.7 H, RDW Coeff of Willie 19.9 H, Plt Count 171, MPV 9.9, Immature Gran % (Auto) 0.400, Neut % (Auto) 12.8 L, Lymph % (Auto) 82.0 H, Campbell % (Auto) 4.3, Eos % (Auto) 0.4, Baso % (Auto) 0.1, Absolute Neuts (auto) 6.6, Absolute Lymphs (auto) 41.98 H, Nucleated RBC % 0, Differential Comment COMMENT, Diff Path Review May foll, Smudge Cells 3+, [id number], Potassium 4.2, Chloride 107, Carbon Dioxide 30.0, Anion Gap 3 L, BUN 37 H, Creatinine 2.09 H, Estim Creat Clear Calc 25.45, Est GFR (MDRD) Af Amer 39 L, Est GFR (MDRD) Non-Af 32 L, BUN/Creatinine Ratio 17.7, Glucose 130 H, Calcium 8.8, Phosphorus 2.9, Magnesium 2.1, Troponin I High Sens 61, B-Natriuretic Peptide 1597.3 H 03/31/23 17:45: Troponin I High Sens 63 03/31/23 20:30: Troponin I High Sens 52 04/01/23 06:31: WBC 49.1 H*, RBC 2.85 L, Hgb 7.5 L, Hct 25.6 L, MCV 89.8, MCH 26.3 L, MCHC 29.3 L, RDW Std Deviation 63.0 H, RDW Coeff of Willie 19.4 H, Plt Count 171, MPV 10.1, Immature Gran % (Auto) 0.300, Neut % (Auto) 9.8 L, Lymph % (Auto) 87.3 H, Campbell % (Auto) 1.5, Eos % (Auto) 0.9, Baso % (Auto) 0.2, Absolute Neuts (auto) 4.9, Absolute Lymphs (auto) 42.84 H, Nucleated RBC % 0, Sodium 142,Potassium 3.7, Chloride 108 H, Carbon Dioxide 27.0, Anion Gap 7, BUN 34 H, Creatinine 2.07 H, Estim Creat Clear Calc 25.70, Est GFR (MDRD) Af Amer 40 L, Est GFR (MDRD) Non-Af 33 L, BUN/Creatinine Ratio 16.4, Glucose 99, Calcium 8.2 L, Total Bilirubin 0.40, AST 15, ALT 21, Alkaline Phosphatase 61, Total Protein 5.0 L, Albumin 2.6 L, Globulin 2.4, Albumin/Globulin Ratio 1.1, Triglycerides 73, Cholesterol 104, LDL Cholesterol 42, VLDL Cholesterol 15, HDL Cholesterol 47, TSH 3.83 H Radiography Diagnostic Testing: Radiology Impression Chest X-Ray 03/31/23 14:29 IMPRESSION: Small bilateral pleural effusions. Electronically Signed: Patrick Wagner MD at 15:52 EST Reading Location ID and State: [address] [place] [address] Tel , Service support , Rhythm Strip Rhythm Strip: Paced Rate: 63 Ectopy: None Physical Exam Cardio regular rate, regular rhythm, S1 normal heart sound and S2 normal heart sound GI normal to inspection, nondistended, normoactive bowel sounds, soft to palpation,non-tender and non-distended Extremity normal to inspection and full ROM Extremity Narrative: Nonpitting edema lower extremities. Subtle edema left upper extremity as compared to the right. Assessment & Plan Assessment/Plan (1) HFrEF (heart failure with reduced ejection fraction): PLAN: Acute with peripheral edema, pleural effusions (not enough for thoracentesis). Undergoing diuresis with furosemide 40 IV BID. Continue sacubitril/valsartan, carvedilol. Current weight 82.6, was 78 on the 7th. Fluid restrict. Duplex of upper extremity and lower extremities performed but results pending. Echo ordered, yet to be performed. PLAN: Plan Chronic complicating medical conditions: * CKD IIIB: monitor closely while on furosemide * CLL:Following with Dr. Bush, initially diagnosed in 2003 * Chronic normocytic anemia: overall trending down over the past several month. Monitor. Check iron studies, B12, folate. TSH high, will check free T4. * Recent nephrolithiasis with BL hydronephrosis secondary to acute staphyloco ccal complicated urinary tract infection with acute urinary retention: Required transient Hood placement, continued on Flomax, status post cystoscopy with laser intervention as well as follow-up TURP discharged on ciprofloxacin. Follow up w * Hypertension: Continue home regimen including Entresto, Coreg, PRN hydralazine. * Hyperlipidemia: We will continue patient on statin * Prostate cancer: Follows with Dr. Bush and urology, diagnosed stage IIa prostate cancer in 2016 status post radiation therapy, received LHRH agonist not currently on any treatment, status post recent TURP as noted. * Orthostatic hypotension: Noted historically, encourage cautious positional changes especially given diuresis as noted above, not currently on any midodrine, closely monitor, PT/OT/case management consulted for discharge planning. DVT prophylaxis: SQ heparin CODE status: Full code. Charges/Coding Visit Charges Inpatient E&M: 99838 Subs Hosp L2 04/01/23 1444 <Electronically signed by Yovani Soto DO> Cosigner Signature (if applicable): CC: ~ Signed [facility] Work Phone: [phone]) 772-237411-18-2023 Discharge summary Author Boston Jung [facility] March 31, 2023 9:47pm Note Date/Time March 31, 2023 2:35pm [facility] Medical Records Department [address] [place] [address] Emergency Department Summary 03/31/23 MR#: [id number] Acct: [id number] Name: JAIME ANN Rep #:[id number] : 1940 82 From: Boston Jung MD PCP: Kenn Baltes, GARNETT FEEDER-C Status:ADM STEVEN Location: [place] [id number] HPI History of Present Illness Chief Complaint: Edema Detail of Chief Complaint: Left arm and bilateral leg swelling Informant: patient Onset/Context/Timing Onset: Days Context: Gradual Onset Timing: Continuous Maximum Severity: Mild Narrative Narrative: 82-year-old male history of a pacemaker, chronic kidney disease and hypertension. Recently hospitalized for UTI and bladder stone removal. States that in the last 3 days he has developed swelling of his left arm and both legs. He denies any prior history. He denies being short of breath. He denies any palpitations or chest pain. Prior similar symptoms: No Recent Illness/Hospitalization: Yes [facility] Medical History Back pain due to injury Bilateral lower extremity edema Cancer CKD (chronic kidney disease) Edema of left upper extremity Essential hypertension Fall Fracture of unspecified phalanx of unspecified finger, initial encounter for closed fracture High cholesterol History of stress test Iron deficiency anemia Irregular heartbeat LBBB (left bundle branch block) Non-ischemic cardiomyopathy Orthostatic hypotension Pacemaker Peripheral neuropathy Restless leg syndrome Subdural hematoma Syncope Syncope and collapse Ventricular tachycardia Home Medications multivitamin (Daily Multiple tablet) 1 ea PO DAILY 03/15/15 [History Last Taken 03/04/23] cholecalciferol (vitamin D3) 25 mcg (1,000 unit) capsule (Vitamin D3) 1,000 unitPO DAILY 08/09/16 [History Last Taken 03/04/23] carvedilol 25 mg tablet 25 mg PO BID 08/24/16 [History Last Taken 03/04/23] glucosamine 750 [id number]-gge no1 644 mg-C 30 mg-jesus 1 mg tablet (Osteo Bi-Flex Triple Strength) 1 ea PO DAILY 08/24/16 [History Last Taken 03/04/23] sacubitril 49 mg-valsartan 51 mg tablet (Entresto) 1 tab PO BID 08/24/22 [History Last Taken 03/04/23] zinc acetate 50 mg (zinc) capsule 50 mg PO DAILY 08/24/22 [History Last Taken 03/04/23] atorvastatin 10 mg tablet 10 mg PO DAILY 03/04/23 [History Last Taken 03/03/23] tamsulosin 0.4 mg capsule 0.4 mg PO DAILY 30 days #30 caps 03/06/23 [Rx Last Taken Unknown] ondansetron 4 mg disintegrating tablet 4 mg PO Q6H PRN nausea and vomiting #10 tabs 03/15/23 [Rx Last Taken Unknown] polysaccharide iron complex 150 mg iron capsule (Ferrex) 150 mg PO DAILY #30 caps 03/20/23 [Rx Last Taken Unknown] Allergy/AdvReac Type Severity Reaction Status Date / Time lisinopril AdvReac Unknown cough Verified 03/31/23 14:00 Family History Mother CVA (cerebral vascular accident) Hypertension Diabetes Father Ischemic heart disease Diabetes Surgical History Cardiac 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 therapy defibrillator (MATTRESS STRIPPER-D) in place (~09/2015) History of arthroplasty of finger of left hand History of colonoscopy History of left heart catheterization (09/22/15) Splenic artery aneurysm Social History Smoking Status: Never smoker alcohol intake: never substance use type: does not use caffeine: Yes Type: coffee Number of servings: 3 ROS ROS ED ROS Narrative Denies shortness of breath. Denies fever. Review of Systems ROS Unobtainable: Denies due to encephalopathy Constitutional Constitutional ED: Denies chills or fever(s) Eyes Eyes: Denies blurry vision ENT ENT ED: Denies ear pain Cardiovascular Cardiovascular: Denies chest pain Respiratory/Chest Respiratory/Chest: Denies cough or dyspnea Gastrointestinal Gastrointestinal: Denies abdominal pain Genitourinary Genitourinary ED: Denies dysuria or hematuria Musculoskeletal Musculoskeletal: Denies arthralgias Integumentary Denies abscess Neurologic Neurologic: Denies headache(s) Psychiatric Psychiatric: Denies anxiety Endocrine Endocrinology: Denies cold intolerance Hematologic/Lymphatic Hematologic/Lymphatic: Reports none; Denies systems reviewed and no addt'l complaints, except as documented Allergic/Immunologic Allergic/Immunologic ED: Denies mouth swelling, tongue swelling or urticaria EXAM Physical Exam Narrative Exam Narrative: Appearing 82-year-old male. Vital signs are stable and afebrile. Sitting upright in bed. He is comfortable. He is in no distress. Family is at bedside. H EENT exam unremarkable. Neck nontender. No JVD. No lymphadenopathy. Lungs clear to auscultation bilaterally. Heart regular rhythmrate in the 70s no murmur. Chest wall nontender. Abdomen soft nontender. He is moving all 4 extremities. He has 1+ pitting edema both lower extremities which is equal symmetrical. Calves are nontender. He also swelling to his lefthand and forearm. Right upper extremity is unremarkable. He has normal motor strength. Normal range of motion. Neurologically he is awake and alert. He isanswering questions and following commands. Const Vital Signs: 03/31/23 14:01 03/31/23 14:52 Temperature 98.4 F Temperature Source Temporal Pulse Rate 77 Respiratory Rate 18 Blood Pressure 161/76 H Blood Pressure Mean 104 Pulse Ox 98 Oxygen Delivery Method Room Air Room Air Positive well nourished and well developed; Negative for obese, cachectic, contractures or unkempt General Appearance ED: well developed and NAD; Negative for unkempt, cachectic, contractures, cyanotic or diaphoretic Nutritional Appearance: Negative for cachectic or obese HEENT Reports moist mucous membranes; Denies dry mucous membranes Negative for trauma or tenderness Mouth ED: No dry mucous membranes Mouth: No dry mucous membranes Eyes PERRL and EOMs intact bilaterally General Eye ED: Negative for pale conjunctiva or scleral icterus Neck no lymphadenopathy, supple and no JVD General: Negative for tenderness Lymph Lymphatic: Negative for other Chest Wall inspection of chest normal and palpation of chest normal Chest: Negative for other Resp normal respiratory effort and clear to auscultation bilaterally Effort and Inspection: Negative for retractions Auscultation: Negative for rales, rhonchi or wheezes Cardio regular rate, regular rhythm, S1 normal heart sound, S2 normal heart sound and no murmurs Palpation: Negative for palpable S3 or palpable S4 Rate: Negative for bradycardia or tachycardic Rhythm: Negative for abnormal rhythm GI normal to inspection, nondistended, normoactive bowel sounds, non-tender, non-distended and no masses Inspection: Negative for abdominal distention Auscultation: normoactive bowel sounds Palpation: soft; Negative for tender or guarding Back/Spine no CVA tenderness General Back: Negative for CVA tenderness Cervical Spine: Negative for cervical spine tenderness Thoracic Spine / Upper Back: Negative for thoracic spinal tenderness Lumbar Spine / Lower Back: Negative for lumbar spinal tenderness Extremity Negative for normal to inspection Extremity Narrative: Edema of the left upper extremity. Bilateral lower extremity 1+ pitting edema. General Extremety ED: Yes edema General Extremity: edema Neuro oriented x3 and CN's II-XII intact bilaterally Sensorium / Orientation: alert; Negative for orientation impaired, lethargic or stuporous Motor Exam: strength 5/5 throughout; Negative for general weakness Psych mental status grossly normal Appearance: Negative for unkempt Attitude: No agitated Mood & Affect: Negative for depressed, anxious or tearful Skin no rashes or lesions noted, no wounds and skin turgor normal General Skin Exam: Negative for elasticity normal Lesions: No lesion noted Rashes: No rashes noted Trauma: Negative for abrasion Wounds: Negative for wounds noted MDM MDM MDM Narrative Medical decision making narrative: 82-year-old male with edema of his left upper and both lower extremities. He denies any history of this. He does have a history of cardiac disease and chronic kidney disease. He will be worked up for possible CHF. History & Record Review Discussion w/independent historian: Patient and Family Lab Data Attestation: I reviewed the patient's lab results. Lab results narrative: DC shows a white count of 50,000 which is the patient's baseline he has chronic leukemia. H&H is 7.8 and 26.7 he also has a chronic anemia. Platelet count 171. Electrolytes show a gap of 3. BUN and creatinine are 37 and 2.0. Glucose 130. Troponin normal at 61. BNP elevated at 1597. Chest x-ray is unremarkable. No significant congestive heart failure. No effusions. Left-sided pacemaker defibrillator. Labs: Laboratory Results - last 24 hr 03/31/23 14:30 RBC 3.00 L Hgb 7.8 L Hct 26.7 L MCV 89.0 MCH 26.0 L MCHC 29.2 L RDW Std Deviation 63.7 H RDW Coeff of Willie 19.9 H Plt Count 171 MPV 9.9 Immature Gran % (Auto) 0.400 Neut % (Auto) 12.8 L Lymph % (Auto) 82.0 H Campbell % (Auto) 4.3 Eos % (Auto) 0.4 Baso % (Auto) 0.1 Absolute Neuts (auto) 6.6 Absolute Lymphs (auto) 41.98 H Nucleated RBC % 0 Sodium 140 Potassium 4.2 Chloride 107 Carbon Dioxide 30.0 Anion Gap 3 L BUN 37 H Creatinine 2.09 H Estim Creat Clear Calc 25.45 Est GFR (MDRD) Af Amer 39 L Est GFR (MDRD) Non-Af 32 L BUN/Creatinine Ratio 17.7 Glucose 130 H Calcium 8.8 Troponin I High Sens 61 B-Natriuretic Peptide 1597.3 H Radiography Chest X-Ray - ED: 1 View, Read by ED Physician, Heart, Lungs, Mediastinum, Bony Structures, No Acute Disease and Chronic Changes Diagnostic Testing: Chest x-ray, portable, single view shows normal cardiac silhouette. Normal mediastinum. Normal lung arevalo. No CHF. No effusions. No pneumonia. Left-sided pacemaker defibrillator. Rhythm Strip Rhythm Strip: Paced Rate: 63 Ectopy: None EKG Initial EKG: Attestation: I personally reviewed and interpreted this EKG as follows: Interpretation: Paced Comments: Rhythm. Rate is 63. No acute signs of KS, ischemia or dysrhythmia. Discharge Plan Triage Chief Complaint: Edema ED Provider: Boston Jung Dx/Rx/DC Orders Prescriptions: No Action Entresto 49-51 mg tablet 1 tab PO BID Hold Instructions: Resume on 03/15/23. zinc acetate 50 mg (zinc) capsule 50 mg PO DAILY polysaccharide iron complex [Ferrex 150] 150 mg iron capsule 150 mg PO DAILY Qty: 30 1RF multivitamin [Daily Multiple] 1 EACH tablet 1 ea PO DAILY Patient Comments: SUPPLEMENT cholecalciferol (vitamin D3) [Vitamin D3] 1,000 UNIT capsule 1,000 unit PO DAILY carvedilol 25 MG tablet 25 mg PO BID Osteo Bi-Flex Triple Strength 1 EACH tablet 1 ea PO DAILY atorvastatin 10 mg tablet 10 mg PO DAILY tamsulosin 0.4 mg Capsule 0.4 mg PO DAILY 30 Days Qty: 30 0RF ondansetron 4 mg tablet,disintegrating 4 mg PO Q6H PRN (Reason: nausea and vomiting) Qty: 10 0RF Primary Care Provider: Kenn Turcios NP Referrals: Kenn Turcios NP, GARNETT FEEDER-C [Primary Care Provider] - What to do if you have Problems For any increased pain, shortness of breath, bleeding, nausea or vomiting, chestpain, or any unexpected problems, contact your Primary Care Provider. Call [facility] ([phone]) or report to the closest Emergency Room. Call 911 if necessary. 03/31/232146 <Electronically signed by Boston Jung MD> Cosigner Signature (if applicable): CC: GARNETT FEEDER-C Kenn Turcios ~ Signed [facility] Work Phone: [phone]) 200-778111-18-2023 History and physical note Author Zari Jose [facility] March 31, 2023 5:04pm Note Date/Time March 31, 2023 4:12pm [facility] Medical Records Department [address] [place] [address] H&P Exam - Hospitalist 03/31/23 1608 MR#: [id number] Acct: [id number] Name: JAIME ANN Rep #:[id number] : 1940 82 From: Zari Jose MD PCP: RENETTA Justice Status:ADM STEVEN Location: [place] [address] HPI - General General Date of Admission: 03/31/23 Date of Service: 03/31/23 Chief Complaint: Edema. HPI Narrative The patient is an 82 y/o M w/ PMHx: CLL, HTN, HLD, Hx Prostate CA, CLL followingwith Dr. Bush, CKD stage III unclear subtype, Orthostatic hypotension, HFrEF with component of recovery s/p prior AICD/pacemaker/Nonischemic cardiomyopathy, Chronic anemia/Fe deficiency anemia, RLS, Chronic peripheral neuropathy, recent admission 03/12/23-03/15/23 following evaluation for intractable nausea and emesis as well as urinary retention with eventual diagnosis of UTI and CT scan demonstrating a stone in the bladder with cystoscopy performed of the stone in addition to follow-up TURP with discharge on ciprofloxacin with resolution of nausea and emesis who now represents to the [facility] ED on 03/31/23 with history of significantly increased swelling to bilateral lower extremities as well as his left upper extremity over the last 3 days with no associated dyspnea nor chest discomfort initially seen at urgent care with referral to the ED for evaluation to be cautious. Oddly patient has notable edema in BL LE and LUE but not the RUE. He does state that he attempted to elevate these extremities but from discussions sounds as though it was not above his heart. He denies any recent calf discomfort or pain to the lower extremities or the left upper extremity. Work-up in the ED included T98.2, heart rate 70, BP 132/54, respiratory rate 14,98% on room air, CBC with WBC 51.2, hemoglobin 7.8, MCV 89, platelet 171 with significant lymphocytosis, BMP with BUN/creatinine 37/2.09, glucose 130, troponin 61, BNP 1597.3, EKG paced with rate 63. Unfortunately per discussion with ED unable to obtain duplex ultrasound at this time. [facility] Medical History (Updated 03/31/23 @ 16:[address] Zari Jose MD) Back pain due to injury CKD (chronic kidney disease), stage III CLL (chronic lymphocytic leukemia) Essential hypertension High cholesterol Iron deficiency anemia LBBB (left bundle branch block) Non-ischemic cardiomyopathy Orthostatic hypotension Pacemaker Peripheral neuropathy Prostate cancer Restless leg syndrome Subdural hematoma Ventricular tachycardia Home Medications multivitamin (Daily Multiple tablet) 1 ea PO DAILY 03/15/15 [History Last Taken 03/04/23] cholecalciferol (vitamin D3) 25 mcg (1,000 unit) capsule (Vitamin D3) 1,000 unitPO DAILY 08/09/16 [History Last Taken 03/04/23] carvedilol 25 mg tablet 25 mg PO BID 08/24/16 [History Last Taken 03/04/23] glucosamine 750 [id number] no1 644 mg-C 30 mg-jesus 1 mg tablet (Osteo Bi-Flex Triple Strength) 1 ea PO DAILY 08/24/16 [History Last Taken 03/04/23] sacubitril 49 mg-valsartan 51 mg tablet (Entresto) 1 tab PO BID 08/24/22 [History Last Taken 03/04/23] zinc acetate 50 mg (zinc) capsule 50 mg PO DAILY 08/24/22 [History Last Taken 03/04/23] atorvastatin 10 mg tablet 10 mg PO DAILY 03/04/23 [History Last Taken 03/03/23] tamsulosin 0.4 mg capsule 0.4 mg PO DAILY 30 days #30 caps 03/06/23 [Rx Last Taken Unknown] ondansetron 4 mg disintegrating tablet 4 mg PO Q6H PRN nausea and vomiting #10 tabs 03/15/23 [Rx Last Taken Unknown] polysaccharide iron complex 150 mg iron capsule (Ferrex) 150 mg PO DAILY #30 caps 03/20/23 [Rx Last Taken Unknown] Allergy/AdvReac Type Severity Reaction Status Date / Time lisinopril AdvReac Unknown cough Verified 03/31/23 14:00 Family History Mother CVA (cerebral vascular accident) Hypertension Diabetes Father Ischemic heart disease Diabetes Surgical History (Updated 03/31/23 @ 16:[address] Zari Jose MD) Cardiac 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 therapy defibrillator (MATTRESS STRIPPER-D) in place (~09/2015) History of arthroplasty of finger of left hand History of colonoscopy History of left heart catheterization (09/22/15) S/P TURP Splenic artery aneurysm Status post laser lithotripsy of ureteral calculus Social History (Updated 03/31/23 @ 16:[address] Zari Jose MD) household members: spouse Smoking Status: Never smoker alcohol intake: never substance use type: does not use caffeine: Yes Type: coffee Number of servings: 3 ROS ROS Narrative Admission Review of Systems: CONSTITUTIONAL: No weight loss, fever, chills, + weakness or fatigue. HEENT: Eyes: No visual loss, blurred vision, double vision or yellow sclerae. Ears, Nose, Throat: No hearing loss, sneezing, congestion, runny nose or sore throat. SKIN: + Very staged ecchymoses, abrasions, venous stasis skin changes. CARDIOVASCULAR: + Edema to left upper, bilateral lower extremities. No chest pain, chest pressure or chest discomfort, palpitations, orthopnea, syncopal events. RESPIRATORY: No shortness of breath, cough or sputum, wheezing, hemoptysis. GASTROINTESTINAL: No anorexia, nausea, vomiting or diarrhea, abdominal pain, melena, BRBPR. GENITOURINARY: + History of recent urinary retention with nephrolithiasis with UTI, resolved. No dysuria, frequency, urgency or retention. NEUROLOGICAL: No headache, dizziness, syncope, paralysis, ataxia, numbness or tingling in the extremities, focal weakness, change in bowel or bladder control,seizure. MUSCULOSKELETAL: + muscle, back pain, joint pain or stiffness. HEMATOLOGIC: + anemia, bleeding/bruising. LYMPHATICS: No enlarged nodes. No history of splenectomy. PSYCHIATRIC: No history of depression or anxiety. ENDOCRINOLOGIC: No reports of sweating, cold or heat intolerance. No polyuria orpolydipsia. ALLERGIES: No history of asthma, hives, eczema or rhinitis. Vital Signs Vital Signs Vital Signs: 03/31/23 14:01 03/31/23 14:52 Temperature 98.4 F Temperature Source Temporal Pulse Rate 77 Respiratory Rate 18 Blood Pressure 161/76 H Blood Pressure Mean 104 Pulse Ox 98 Oxygen Delivery Method Room Air Room Air Weight Weight: 180 lb Body Mass Index (BMI) 27.3 Physical Exam Narrative Physical Examination: General: Awake, alert, oriented x 3 and cooperative, seated upright in the ED bed in no apparent distress, denies any chest discomfort or dyspnea associated. Skin: Normal color, normal turgor, no icterus, no cyanosis except for very staged ecchymoses, venous stasis skin changes, abrasions. HEENT: AT/NC, EOMI, PERRLA, MMM, no carotid bruits or JVD noted. Lungs: CTA bilaterally, moderate effort, mild decrease BL bases, no rales, ronchi or wheezing. Heart: Regular rate and rhythm; no gallop, rub audible, + SM. Abdomen: Soft, overweight, NTTP, ND, distant normal BS, no appreciated HSM. Extremities: No cyanosis, no clubbing, bilateral pedal, right mildly greater than left likely secondary to previous injury pedal edema to proximal carl 1-2+ edema as well as left upper extremity with hand to mid forearm 1-2+ pitting edema. Neurological: Patient awake, alert, oriented as noted, cognitive function intact; pupils equally reactive to light and accommodation, cranial nerves II-XII grossly normal, moving all 4 extremities, no focal deficits, strength moderately globally decreased secondary to acute presentation underlying comorbidities Psychiatric: Affect appears fatigued, no acute evidence of depressive or anxietyfeelings. Results Lab / Micro Data 03/31/23 14:30 03/31/23 14:30 Labs: Laboratory Results - last 24 hr 03/31/23 14:30: WBC 51.2 H*, RBC 3.00 L, Hgb 7.8 L, Hct 26.7 L, MCV 89.0, MCH 26.0 L, MCHC 29.2 L, RDW Std Deviation 63.7 H, RDW Coeff of Willie 19.9 H, Plt Count 171, MPV 9.9, Immature Gran % (Auto) 0.400, Neut % (Auto) 12.8 L, Lymph % (Auto) 82.0 H, Campbell % (Auto) 4.3, Eos % (Auto) 0.4, Baso % (Auto) 0.1, Absolute Neuts (auto) 6.6, Absolute Lymphs (auto) 41.98 H, Nucleated RBC % 0, Differential Comment COMMENT, Diff Path Review May foll, Smudge Cells 3+, [id number], Potassium 4.2, Chloride 107, Carbon Dioxide 30.0, Anion Gap 3 L, BUN 37 H, Creatinine 2.09 H, Estim Creat Clear Calc 25.45, Est GFR (MDRD) Af Amer 39 L, Est GFR (MDRD) Non-Af 32 L, BUN/Creatinine Ratio 17.7, Glucose 130 H, Calcium 8.8, Troponin I High Sens 61, B-Natriuretic Peptide 1597.3 H Rhythm Strip Rhythm Strip: Paced Rate: 63 Ectopy: None Imagaing Radiology Impression Chest X-Ray 03/31/23 14:29 IMPRESSION: Small bilateral pleural effusions. Electronically Signed: Patrick Wagner MD at 15:52 EST Reading Location ID and State: [address] [place] [address] Tel , Service support , Assessment & Plan Assessment/Plan (1) Bilateral lower extremity edema: PLAN: Plan The patient is an 82 y/o M w/ PMHx: CLL, HTN, HLD, Hx Prostate CA, CLL followingwith Dr. Bush, CKD stage III unclear subtype, Orthostatic hypotension, HFrEF with component of recovery s/p prior AICD/pacemaker/Nonischemic cardiomyopathy, Chronic anemia/Fe deficiency anemia, RLS, Chronic peripheral neuropathy, recent admission 03/12/23-03/15/23 following evaluation for intractable nausea and emesis as well as urinary retention with eventual diagnosis of UTI and CT scan demonstrating a stone in the bladder with cystoscopy performed of the stone in addition to follow-up TURP with discharge on ciprofloxacin with resolution of nausea and emesis who now represents to the [facility] ED on 03/31/23 with history of significantly increased swelling to bilateral lower extremities as well as his left upper extremity over the last 3 days with no associated dyspnea nor chest discomfort initially seen at urgent care with referral to the ED for evaluation to be cautious. Oddly patient has notable edema in BL LE and LUE but not the RUE. #1. Peripheral Edema, Possibly multifactorial, atypical given only 3 extremities, concern for Acute on Chronic HFrEF w/ component of recovery/Nonischemic cardiomyopathy as well as Possible VTE: s/p pacemaker/AICD, Mmst recent [facility] ECHO noted 09/21/2015 with moderately dilated LV, severe segmental systolic dysfunction with EF 20%, septal motion consistent with IVCD, mildly enlarged LA, moderately severe MVI, mild TVI, trivial MINOR, trivial PVI, RVSP 38 mmHg, bubble study negative at that time. Most recent echocardiogram inclinic sink records at [facility] 09/2022 with EF 48% but given now 6 months out will request repeat. Will admit to PCU, maintain on cardiac telemetry, obtain cardiac enzyme series, obtain serial EKGs, continue IV lasix diuresis, monitor I/Os, maintain on intake restriction, continue medical therapyw/ asa, statin, BB, ACEI, obtain TSH and magnesium level. Duplex ultrasound bilateral lower extremities as well as left upper extremity requested to be cautious given atypical edema presentation. Will place snug Heraclio wraps with elevation. The thing to consider is given underlying cancer history may certainly consider imaging to assure there is no compression as etiology for presentation as well. PT/OT/case management consulted for discharge planning. #2. Mild Acute Renal Insufficiency on Chronic Kidney Disease Stage III, unclearsubtype per GFR trend: Admission BUN/Cr 37/2.09, baseline renal function appearsprimarily 0.6-1.9, most recently prior to this 03/20/2023 creatinine 1.74, will closely monitor given usage of judicious IV Lasix and if worsens further will hold other nephrotoxic medication and further investigate. #3. CLL: Admission CBC with a BC 51.2, hemoglobin 7.8, platelet 171 with significant lymphocytosis with known underlying CLL, following with Dr. Bush, initially diagnosed in 2003 with primarily baseline consistent WBC at least in the 40s since 2019 however since recent presentation 02/2023 level has remained in the 50s of note, encourage continued early follow-up with oncology. #4. Chronic normocytic anemia: Large component secondary to his underlying CLL,admission hemoglobin 7.8, MCV 89, baseline hemoglobin primarily 8-9, most recently prior to this presentation 03/20/2023 hemoglobin 9.2, continue to monitor and if drifts further would initiate PRBC administration, will continue trend CBC. Recent work-up included iron studies as well as vitamin B12 and folicacid and ferritin, encourage follow-up outpatient with hematology. #5. Recent nephrolithiasis with BL hydronephrosis secondary to acute staphylococcal complicated urinary tract infection with acute urinary retention:Required transient Hood placement, continued on Flomax, status post cystoscopy with laser intervention as well as follow-up TURP discharged on ciprofloxacin. #6. Hypertension: Continue home regimen including Entresto, Coreg, PRN hydralazine. #7. Hyperlipidemia: We will continue patient on statin therapy, FLP in AM. #8. Prostate cancer: Follows with Dr. Waite and urology, diagnosed stage IIa prostate cancer in 2016 status post radiation therapy, received LHRH agonist notcurrently on any treatment, status post recent TURP as noted. #9. Orthostatic hypotension: Noted historically, encourage cautious positional changes especially given diuresis as noted above, not currently on any midodrine, closely monitor, PT/OT/case management consulted for discharge planning. #10. DVT prophylaxis: Chemoprophylactic dosing of heparin, will hold on anticoagulation given hemoglobin decrease until assure need for this as again unclear reason for edema, possibly multifactorial with failure as main etiology. #11. CODE status: Patient ZAHEER is his daughter who is present and living will is currently in place. Discussed CODE status at length including difference between FULL code, DNR-CCA and DNR-CC status. Following discussions about the differences in these status, requested Full Code status. Advanced Care Planning Face to Face Time: 16 minutes. Charges/Coding Visit Charges Inpatient E&M: 48254 Init Hosp L2 Procedures Hospitalists Procedures: 37254 Advncd Care Plan 30 Min 03/31/23 1704 <Electronically signed by Zari Jose MD> Cosigner Signature (if applicable): CC: RENETTA Turcios; Dr. Zari Jose MD~ Signed [facility] Work Phone: [phone]) 744-839211-02-2023 Progress note Author Mehreen Cavazos [facility] March 15, 2023 9:22am Note Date/Time March 15, 2023 9 :20am [facility] Medical Records Department [address] [place] [id number] Progress Note - Hospitalist 03/15/23 0917 MR#: [id number] Acct: [id number] Name: JAIME ANN Rep #:[id number] : 1940 82 From: Mehreen Cavazos MD PCP: Kenn Turcios GARNETT FEEDER-Gerry Status:ADM IN Location: [facility] [place] [id number] Reason for Visit Reason for Visit: Diagnoses Malignant neoplasm of prostate (03/12/23) Chronic lymphocytic leukemia of B-cell type not having achieved remission (03/12/23) Anemia, unspecified (03/12/23) Orthostatic hypotension (03/12/23) Acute kidney failure, unspecified (03/12/23) Urinary tract infection, site not specified (03/12/23) Retention of urine, unspecified (03/12/23) Dizziness and giddiness (03/12/23) Unspecified fall, initial encounter (03/12/23) Personal history of leukemia (03/12/23) Subjective Subjective Patient seen, Underwent Cystoscopy and laser of bladder stone stone was 1 cm in size and transurethral resection of the prostate with button Olympus. Plan is for patient to be assessed for possible discharge by Dr Payne Objective Data Objective Data Vital Signs: Vital Signs Temp Pulse Resp BP Pulse Ox O2 Del Method 98.4 F 67 16 159/94 H 96 Room Air 03/15/23 08:25 03/15/23 08:25 03/15/23 08:25 03/15/23 08:25 03/15/23 05:02 03/15/23 08:25 Oxygen Delivery Method Room Air Weight: 73.9 kg Body Mass Index (BMI) 24.7 Intake & Output: Intake and Output for Last 24 Hours 03/13/23 03/14/23 03/15/23 23:59 23:59 23:59 Intake Total 2028.75 / 2328.75 2166.25 / 2366.25 1293.75 / 1293.75 Output Total 375 / 675 2900 / 3200 900 / 900 Balance 1653.75 / 1653.75 -733.75 / -833.75 393.75 / 393.75 Lab / Micro Data 03/15/23 06:40 03/15/23 06:40 Labs: Laboratory Results - last 24 hr 03/12/23 18:17: Diff Path Review Reviewed 03/14/23 05:40: Diff Path Review Reviewed 03/15/23 06:40: WBC 68.6 H*, RBC 3.22 L, Hgb 8.3 L, Hct 28.3 L, MCV 87.9, MCH 25.8 L, MCHC 29.3 L, RDW Std Deviation 59.6 H, RDW Coeff of Willie 19.0 H, Plt Count 243, MPV 9.9, Immature Gran % (Auto) 0.600, Neut % (Auto) 16.0 L, Lymph % (Auto) 80.9 H, Campbell % (Auto) 2.1, Eos % (Auto) 0.2, Baso % (Auto) 0.2, Absolute Neuts (auto) 10.9 H, Absolute Lymphs (auto) 55.55 H, Nucleated RBC % 0, Differential Comment COMMENT, Diff Path Review May foll, Sodium 144, Potassium 3.3 L, Chloride 113 H, Carbon Dioxide 22.0, Anion Gap 9, BUN 28 H, Creatinine 1.67 H, Estim Creat Clear Calc 31.86, Est GFR (MDRD) Af Amer 51 L, Est GFR (MDRD) Non-Af 42 L, BUN/Creatinine Ratio 16.8, Glucose 102, Calcium 7.5 L Micro: Microbiology 03/12/23 20:30 Urine, Clean Catch Urine Culture - Final Culture exhibits no growth. Physical Exam Narrative GENERAL: cooperative HEENT: Atraumatic; normocephalic EYES; Anicteric, Normal Conjunctiva NECK; supple, normal thyroid, RESPIRATORY: Diminished to auscultation CARDIOVASCULAR: Regular S1 S2, GI: soft, normoactive bowel sounds, : No Renal angle tenderness; EXTREMITIES: No edema, no clubbing, MUSCULOSKELETAL: no muscle wasting NEURO: Awake; no lateralizing signs. SKIN: No Rash PSYCH; Flat affect Assessment & Plan Assessment/Plan (1) Urinary retention: PLAN: Plan Patient is an 82-year-old gentleman With history of recent hospitalization with staph UTI discharged home with a Hood catheter due to urinary retention admitted with nausea vomiting and dizziness 1. Intractable nausea vomiting ? Suspected to be secondary to acute urinary tract infection. Patient had recently grown staph patient was started on ciprofloxacin repeat cultures sent. Patient also has a stone and plan is for cystolitholapaxy removal of the bladderstone and possible TURP on 03/14/[address] Payne ? 03/14/2023; Patient is scheduled to undergo cystoscopy laser bladder stones and transurethral section of prostate ? 03/15/2023; status post Cystoscopy and laser of bladder stone stone was 1 cm insize and transurethral resection of the prostate with button Olympus by Dr Payne on 03/14/2023. 2. Urinary retention ? Status post Hood catheter placement followed by urology 3. History of prostate CA ? Follows with Dr. Bush with oncology as noted above. Diagnosed with prostate cancer stage IIa in 2016, completed radiation therapy in July 2015 and receivedLHRH agonist for treatment via Dr. Payne with Urology 4. 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 Status post cardiac 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 therapy defibrillator placement. Patient is on carvedilol did continue on Entresto held given low blood pressure and impaired kidney function 5. Anemia - Secondary to chronic disorder monitoring H&H and transfuse if patient becomes symptomatic or hemoglobin falls below 7 6. Chronic lymphocytic leukemia with significant leukocytosis ? Followed by oncology 7. Chronic kidney disease stage III ? Kidney function at baseline 8. Dyslipidemia -Patient is on statin therapy, continued at home dose 9. DVT prophylaxis ? Started on SC heparin 10. Hypokalemia ? Corrected per protocol Time spent in the patient's overall evaluation,decision-making process, review of diagnostic data, adjustment of management, discussion with other providers, nursing nursing and ancillary staff involved in patient's care documentation, 35 Minutes Charges/Coding Visit Charges Inpatient E&M: 51291 Subs Hosp L2 03/15/23 0922 <Electronically signed by Mehreen Cavazos MD> Cosigner Signature (if applicable): CC: ~ Signed [facility] Work Phone: 1(285) 759-353511-02-2023 Discharge summary Author Janine Payne [facility] March 15, 2023 7:17am Note Date/Time March 15, 2023 7 :17am [facility] Medical Records Department [address] [place] [address] Discharge Summary 03/15/23 0714 MR#: [id number] Acct: [id number] Name: JAIME ANN MEHREEN Rep #:[id number] : 1940 82 From: Janine Payne MD PCP: RENETTA Justice Status:ADM IN Location: [facility] [id number] Providers Date of Admission: 03/12/23 Primary Care Physician: RENETTA Justice Consultations 03/12/23 16:46 Consult: Gastroenterology Routine Consulting Provider: Harpreet Hartman Reason for Consult: persistent nausea vomiting EMERGENT Consult: No Notified: Yes Date Notified: 03/12/23 Time Notified: 16:47 Method of Notification: Text Consult: Hospitalist Routine Consulting Provider: Braxton Powers Reason for Consult: medical management EMERGENT Consult: No Notified: Yes Date Notified: 03/12/23 Time Notified: 16:46 Method of Notification: Text Reason For Visit: NAUSEA,VOMITING,HYDRONEPHROSIS,FAILED THERAPY Diagnosis Discharge Diagnosis (1) Urinary retention: Status: Acute Code(s): R33.9 - Retention of urine, unspecified Plan: Hood out voiding trial tonight nurse instructed to replace hood if can't void Plan persistent Nausea and vomiting not feeling well hood removed for a void trial medical consult consult for nausea and vomiting will also order imaging Medications at Discharge Home Medications multivitamin (Daily Multiple tablet) 1 ea PO DAILY 03/15/15 cholecalciferol (vitamin D3) 25 mcg (1,000 unit) capsule (Vitamin D3) 1,000 unitPO DAILY 08/09/16 carvedilol 25 mg tablet 25 mg PO BID 08/24/16 glucosamine 750 [id number] no1 644 mg-C 30 mg-jesus 1 mg tablet (Osteo Bi-Flex Triple Strength) 1 ea PO DAILY 08/24/16 sacubitril 49 mg-valsartan 51 mg tablet (Entresto) 1 tab PO BID 08/24/22 zinc acetate 50 mg (zinc) capsule 50 mg PO DAILY 08/24/22 atorvastatin 10 mg tablet 10 mg PO DAILY 03/04/23 polysaccharide iron complex 150 mg iron capsule (Ferrex) 150 mg PO DAILY #30 caps 03/06/23 tamsulosin 0.4 mg capsule 0.4 mg PO DAILY 30 days #30 caps 03/06/23 ciprofloxacin HCl 500 mg tablet (Cipro) 500 mg PO BID #10 tabs 03/15/23 ondansetron 4 mg disintegrating tablet 4 mg PO Q6H PRN nausea and vomiting #10 tabs 03/15/23 Hospital Course Summary of Care Provided Minutes Spent on Discharge: 35 Hospital Course: 82-year-old male was admitted to the hospital persistent nausea vomiting UTI CT scan was done demonstrated a stone in the bladder also was seen by gastroenterology biopsies pending. Patient underwent a cystoscopy evacuation laser of the bladder stone also went TURP with a bipolar Olympus. Today we willremove the Hood catheter for voiding trial. He will be given Cipro for his UTIinfection with Staph aureus pansensitive. But he has been feeling better since admission no more nausea or vomiting. Feels ready to be discharged. So we willdischarge him home today with Cipro for the UTI for few more days, and ondansetron as necessary for nausea vomiting follow-up with me in the office andthat he will follow-up with all his other primary health care administrator. Physical Exam Const alert and oriented x3 General Appearance: cooperative HEENT normocephalic, head/scalp atraumatic, EAC's normal and TM's normal bilaterally Eyes PERRL and EOMs intact bilaterally Pupil: sluggish Neck no lymphadenopathy, supple and no JVD General: trachea midline Lymph Lymphatic: no lymphadenopathy noted, lymphedema and lymphadenopathy Resp normal respiratory effort, normal air movement and clear to auscultation bilaterally Cardio regular rate, regular rhythm and peripheral pulses 2+ throughout GI soft to palpation, non-tender and non-distended Extremity normal capillary refill and no clubbing, cyanosis or edema General Extremity: no tenderness to palpation of joints or extremities Skin no rashes or lesions noted General Skin Exam: turgor normal Lesions: no lesions Rashes: no rashes Neuro CN's II-XII intact bilaterally Speech: speech normal Motor Exam: strength 5/5 throughout; Negative for general weakness Psych thought process normal, cooperative and affect normal Appearance: appropriate Medical Records Data Attestation: I reviewed the patient's medical records Weight / BMI Weight Weight: 73.9 kg Body Mass Index (BMI) 24.7 ABG / Lab / Microbiology Data 03/14/23 05:40 03/14/23 05:40 Laboratory: Laboratory Results - last 24 hr 03/12/23 18:17: Diff Path Review Reviewed 03/14/23 05:40: Differential Comment SCANNED, Diff Path Review Reviewed, Sodium 144, Potassium 3.7, Chloride 113 H, Carbon Dioxide 21.0, Anion Gap 10, BUN 24 H,Creatinine 1.65 H, Estim Creat Clear Calc 32.24, Est GFR (MDRD) Af Amer 51 L, Est GFR (MDRD) Non-Af 42 L, BUN/Creatinine Ratio 14.5, Glucose 91, Calcium 7.5 L, Phosphorus 2.8, Magnesium 1.9 D/C Instructions Discharge Diet: No restrictions Discharge Activity: Return to Normal Activity Call your doctor if you observe: Fever of 101 or Higher Please Follow Up With: Janine Payne MD When: 2 weeks Meaningful Use Info Meaningful Use Diagnoses (Choose all that apply): None applicable Discharge Plan Admission Admit Date/Time: 03/12/23 17:08 Primary Reason for Your Visit: bladder stone, and TURP, UTI Attending Provider: Mehreen Cavazos Primary Care Provider: Kenn Turcios NP Consulting Providers: Harpreet Hartman; Braxton Powers; Janine Payne Discharge Orders/Prescriptions Prescriptions: New ciprofloxacin HCl [Cipro] 500 mg tablet 500 mg PO BID Qty: 10 0RF ondansetron 4 mg tablet,disintegrating 4 mg PO Q6H PRN (Reason: nausea and vomiting) Qty: 10 0RF Continued Entresto 49-51 mg tablet 1 tab PO BID Hold Instructions: Resume on 03/15/23. zinc acetate 50 mg (zinc) capsule 50 mg PO DAILY multivitamin [Daily Multiple] 1 EACH tablet 1 ea PO DAILY Patient Comments: SUPPLEMENT cholecalciferol (vitamin D3) [Vitamin D3] 1,000 UNIT capsule 1,000 unit PO DAILY carvedilol 25 MG tablet 25 mg PO BID Osteo Bi-Flex Triple Strength 1 EACH tablet 1 ea PO DAILY atorvastatin 10 mg tablet 10 mg PO DAILY polysaccharide iron complex [Ferrex 150] 150 mg iron Capsule 150 mg PO DAILY Qty: 30 0RF tamsulosin 0.4 mg Capsule 0.4 mg PO DAILY 30 Days Qty: 30 0RF Discontinued ciprofloxacin HCl [Cipro] 250 mg tablet 250 mg PO Q12H 7 Days Qty: 14 0RF Rx Instructions: Starting 03/07 Referrals / Follow Up: Kenn Turcios NP, GARNETT FEEDER-C [Primary Care Provider] - Janine Payne MD [Med Staff - Active Staff] - Disposition Discharge Orders: Discharge Patient (Routine); Ordered 03/15/23 Ordered By: Dr. Janine Payne 03/15/23 0717 <Electronically signed by Janine Payne MD> Cosigner Signature (if applicable): CC: RENETTA Turcios; Dr. Janine Payne MD~ Signed [facility] Work Phone: 1(257) 895-884811-01-2023 Progress note Author Harpreet Friend [facility] March 14, 2023 7:08pm Note Date/Time March 14, 2023 7 :09pm [facility] Medical Records Department [address] [place] [address] Progress Note - GI 03/14/23 190 MR#: [id number] Acct: [id number] Name: JAIME ANN Rep #:[id number] : 1940 82 From: Harpreet Hartman DO PCP: RENETTA Justice Status:ADM IN Location: [place] [id number] Subjective Subjective Patient underwent an upper endoscopy yesterday. He is scheduled to undergo urologic procedure today. His nausea is a lot better. It he was able to eat some clear liquids overnight. He denies any chest pain or shortness of breath. Objective Data Objective Data Vital Signs: Vital Signs Temp Pulse Resp BP Pulse Ox O2 Del Method 97.9 F 58 L 16 178/95 H 95 Room Air 03/14/23 17:18 03/14/23 17:18 03/14/23 17:18 03/14/23 17:18 03/14/23 17:18 03/14/23 17:18 Oxygen Delivery Method Room Air Weight: 162 lb 14.746 oz Body Mass Index (BMI) 24.7 Intake & Output: Intake and Output for Last 24 Hours 03/12/23 03/13/23 03/14/23 23:59 23:59 23:59 Intake Total 300 / 300 2028.75 / 2328.75 2166.25 / 2166.25 Output Total 500 / 500 375 / 675 2900 / 2900 Balance -200 / -200 1653.75 / 1653.75 -733.75 / -733.75 Lab / Micro Data 03/14/23 05:40 03/14/23 05:40 Labs: Laboratory Results - last 24 hr 03/12/23 18:17: Diff Path Review Reviewed 03/14/23 05:40: WBC 69.3 H*, RBC 3.48 L, Hgb 8.9 L, Hct 30.8 L, MCV 88.5, MCH 25.6 L, MCHC 28.9 L, RDW Std Deviation 59.3 H, RDW Coeff of Willie 18.9 H, Plt Count 298, MPV 9.8, Immature Gran % (Auto) 0.600, Neut % (Auto) 9.5 L, Lymph % (Auto) 88.3 H, Campbell % (Auto) 0.8, Eos % (Auto) 0.3, Baso % (Auto) 0.5, Absolute Neuts (auto) 6.7, Absolute Lymphs (auto) 61.17 H, Nucleated RBC % 0, Differential Comment SCANNED, Diff Path Review Reviewed, PT 14.2, INR 1.1, APTT 26.3, Sodium 144, Potassium 3.7, Chloride 113 H, Carbon Dioxide 21.0, Anion Gap 10, BUN 24 H, Creatinine 1.65 H, Estim Creat Clear Calc 32.24, Est GFR (MDRD) AfAmer 51 L, Est GFR (MDRD) Non-Af 42 L, BUN/Creatinine Ratio 14.5, Glucose 91, Calcium 7.5 L, Phosphorus 2.8, Magnesium 1.9 Physical Exam Narrative GENERAL: cooperative HEENT: Atraumatic; normocephalic EYES; Anicteric, Normal Conjunctiva NECK; supple, normal thyroid, RESPIRATORY: Diminished to auscultation CARDIOVASCULAR: Regular S1 S2, GI: soft, normoactive bowel sounds, : No Renal angle tenderness; EXTREMITIES: No edema, no clubbing, MUSCULOSKELETAL: no muscle wasting NEURO: Awake; no lateralizing signs. SKIN: No Rash PSYCH; Flat affect Assessment & Plan Assessment/Plan (1) Urinary retention: PLAN: Plan 82-year-old with past medical history of CLL, prostate cancer status post ration, CKD stage III and recent urinary tract infection with obstructive uropathy status post Hood and removal Urinary retention with hydronephrosis/history of prostate cancer/nausea and vomiting ? He thinks that the nausea and vomiting is due to his iron and Cipro but is also been having dizziness for the last 6 months He will undergo an upper endoscopy to make sure it is not an acute GI pathology contributing to his nausea and vomiting. If that is normal then I will treat him accordingly. He was explained alternatives, risk, benefits include not withstanding bleeding, infection, sepsis, perforation, need for emergency to . Have an ASA of 3. Chronic systolic CHF/HTN/HLD ? Seems to be stable and not contributing to his nausea vomiting 03/14- Findings from EGD include: LA Grade B (one or more mucosal breaks greater than 5 mm, not extending between the tops of two mucosal folds) esophagitis with no bleeding was found 37 to 39 cm from the incisors. Biopsies were taken with a cold forceps for histology. Verification of patient identification for the specimen was done. Estimated blood loss was minimal. No gross lesions were noted in the stomach. A small hiatal hernia was present. Localized moderately congested mucosa without active bleeding and with no stigmata of bleeding was found in the duodenal bulb. Biopsies were taken with a cold forceps for histology. Verification of patient identification for the specimen was done. Estimated blood loss was minimal. A 5 mm non-bleeding diverticulum was found in the second portion of the duodenum. Localized nodular mucosa was found in the area of the papilla. Biopsies were taken with a cold forceps for histology. Verification of patient identification for the specimen was done. Estimated blood loss was minimal. Continue supportive care as patient is getting a lot better. Await biopsy results. Charges/Coding Visit Charges Inpatient E&M: 71612 [facility] L3 03/14/23 190 <Electronically signed by Harpreet Hartman DO> Cosigner Signature (if applicable): CC: ~ Signed [facility] Work Phone: 1([phone]) 873-636311-01-2023 Procedure [facility] 03-14-2023 Progress note Author Mehreen Cavazos [facility] March 14, 2023 9:52am Note Date/Time March 14, 2023 8 :13am [facility] Medical Records Department [address] [place] [address] Progress Note - Hospitalist 03/14/23810 MR#: [id number] Acct: [id number] Name: JAIME ANN Rep #:[id number] 1940 82 From: Mehreen Cavazos MD PCP: Kenn Baltes, GARNETT FEEDER-C Status:ADM IN Location: [facility] [id number] Reason for Visit Reason for Visit: Diagnoses Malignant neoplasm of prostate (03/12/23) Chronic lymphocytic leukemia of B-cell type not having achieved remission (03/12/23) Anemia, unspecified (03/12/23) Orthostatic hypotension (03/12/23) Acute kidney failure, unspecified (03/12/23) Urinary tract infection, site not specified (03/12/23) Retention of urine, unspecified (03/12/23) Dizziness and giddiness (03/12/23) Unspecified fall, initial encounter (03/12/23) Personal history of leukemia (03/12/23) Subjective Subjective Patient is scheduled to undergo cystoscopy laser bladder stones and transurethral section of prostate Objective Data Objective Data Vital Signs: Vital Signs Temp Pulse Resp BP Pulse Ox O2 Del Method 98.2 F 62 16 173/74 H 94 Room Air 03/14/23 04:49 03/14/23 04:49 03/14/23 04:49 03/14/23 04:49 03/14/23 04:49 03/14/23 04:49 Oxygen Delivery Method Room Air Weight: 73.9 kg Body Mass Index (BMI) 24.7 Intake & Output: Intake and Output for Last 24 Hours 03/12/23 03/13/23 03/14/23 23:59 23:59 23:59 Intake Total 300 / 300 2028.75 / 2328.75 1116.25 / 1116.25 Output Total 500 / 500 375 / 675 600 / 600 Balance -200 / -200 1653.75 / 1653.75 516.25 / 516.25 Lab / Micro Data 03/14/23 05:40 03/14/23 05:40 Labs: Laboratory Results - last 24 hr 03/14/23 05:40: WBC 69.3 H*, RBC 3.48 L, Hgb 8.9 L, Hct 30.8 L, MCV 88.5, MCH 25.6 L, MCHC 28.9 L, RDW Std Deviation 59.3 H, RDW Coeff of Willie 18.9 H, Plt Count 298, MPV 9.8, Immature Gran % (Auto) 0.600, Neut % (Auto) 9.5 L, Lymph % (Auto) 88.3 H, Campbell % (Auto) 0.8, Eos % (Auto) 0.3, Baso % (Auto) 0.5, Absolute Neuts (auto) 6.7, Absolute Lymphs (auto) 61.17 H, Nucleated RBC % 0, Differential Comment SCANNED, Diff Path Review September foll, PT 14.2, INR 1.1, APTT 26.3, Sodium 144, Potassium 3.7, Chloride 113 H, Carbon Dioxide 21.0, Anion Gap 10, BUN 24 H, Creatinine 1.65 H, Estim Creat Clear Calc 32.24, Est GFR (MDRD) AfAmer 51 L, Est GFR (MDRD) Non-Af 42 L, BUN/Creatinine Ratio 14.5, Glucose 91, Calcium 7.5 L, Phosphorus 2.8, Magnesium 1.9 Physical Exam Narrative GENERAL: cooperative HEENT: Atraumatic; normocephalic EYES; Anicteric, Normal Conjunctiva NECK; supple, normal thyroid, RESPIRATORY: Diminished to auscultation CARDIOVASCULAR: Regular S1 S2, GI: soft, normoactive bowel sounds, : No Renal angle tenderness; EXTREMITIES: No edema, no clubbing, MUSCULOSKELETAL: no muscle wasting NEURO: Awake; no lateralizing signs. SKIN: No Rash PSYCH; Flat affect Assessment & Plan Assessment/Plan (1) Urinary retention: PLAN: Plan Patient is an 82-year-old gentleman With history of recent hospitalization with staph UTI discharged home with a Hood catheter due to urinary retention admitted with nausea vomiting and dizziness 1. Intractable nausea vomiting ? Suspected to be secondary to acute urinary tract infection. Patient had recently grown staph patient was started on ciprofloxacin repeat cultures sent. Patient also has a stone and plan is for cystolitholapaxy removal of the bladderstone and possible TURP on 03/14/[address] Payne ? 03/14/2023; Patient is scheduled to undergo cystoscopy laser bladder stones and transurethral section of p 2. Urinary retention ? Status post Hood catheter placement followed by urology 3. History of prostate CA ? Follows with Dr. Bush with oncology as noted above. Diagnosed with prostate cancer stage IIa in 2015, completed radiation therapy in July 2015 and receivedLHRH agonist for treatment via Dr. Payne with Urology 4. 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 Status post cardiac 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 therapy defibrillator placement. Patient is on carvedilol did continue on Entresto held given low blood pressure and impaired kidney function 5. Anemia - Secondary to chronic disorder monitoring H&H and transfuse if patient becomes symptomatic or hemoglobin falls below 7 6. Chronic lymphocytic leukemia with significant leukocytosis ? Followed by oncology 7. Chronic kidney disease stage III ? Kidney function at baseline 8. Dyslipidemia -Patient is on statin therapy, continued at home dose 9. DVT prophylaxis ? Started on SC heparin Time spent in the patient's overall evaluation,decision-making process, review of diagnostic data, adjustment of management, discussion with other providers, nursing nursing and ancillary staff involved in patient's care documentation, 35 Minutes Charges/Coding Visit Charges Inpatient E&M: 66976 Subs Hosp L2 03/14/23 0952 <Electronically signed by Mehreen Cavazos MD> Cosigner Signature (if applicable): CC: ~ Signed [facility] Work Phone: [phone]) 406-404911-01-2023 Progress note Author Janine Payne [facility] March 14, 2023 7:00am Note Date/Time March 14, 2023 7 :00am [facility] Medical Records Department [address] [place] [id number] Progress Note - Urology 03/14/23 0700 MR#: [id number] Acct: [id number] Name: JAIME ANN Rep #:[id number] : 1940 82 From: Janine Payne MD PCP: RENETTA Justice Status:ADM IN Location: [place] [address] Subjective Subjective N.p.o., plan for cystoscopy laser bladder stones and transurethral section of prostate Objective Data Objective Data Vital Signs: Vital Signs Temp Pulse Resp BP Pulse Ox O2 Del Method 98.2 F 62 16 173/74 H 94 Room Air 03/14/23 04:49 03/14/23 04:49 03/14/23 04:49 03/14/23 04:49 03/14/23 04:49 03/14/23 04:49 Oxygen Delivery Method Room Air Weight: 73.9 kg Body Mass Index (BMI) 24.7 Intake & Output: Intake and Output for Last 24 Hours 10/30/23 10/31/23 11/01/23 23:59 23:59 23:59 Intake Total 300 / 300 2028.75 / 2328.75 1116.25 / 1116.25 Output Total 500 / 500 375 / 675 600 / 600 Balance -200 / -200 1653.75 / 1653.75 516.25 / 516.25 Lab / Micro Data 03/12/23 18:17 03/12/23 18:17 03/14/23 0700 <Electronically signed by Janine Payne MD> Cosigner Signature (if applicable): CC: ~ Signed [facility] Work Phone: 1([phone]) 568-543910-31-2023 Consult note Author Harpreet Friend [facility] March 13, 2023 12:43pm Note Date/Time March 13, 2023 1 2:36pm [facility] Medical Records Department [address] [place] [address] Consultation - GI 03/12/23 2300 MR#: [id number] Acct: [id number] Name: JAIME ANN Rep #:[id number] : 1940 82 From: Harpreet Hartman DO PCP: RENETTA Justice Status:ADM IN Location: [facility] [place] [id number] HPI Consult Data Date of Consult: 03/12/23 HPI Narrative Reason for Consultation: Nausea and vomiting HPI Narrative: JAIME ANN, is a 82 M with past medical history of heart failure with recovered ejection fraction, prostate cancer s/p radiation, iron deficiency anemia and CLL who presented to [facility] ED on 03/04/2023 withworsening dizziness. Patient stated that he has felt dizzy specifically when going from sitting to standing over the past several weeks. He has history of heart failure and is on Coreg and Entresto, denies any recent changes to his medications that he is aware of. Patient denies any episodes of syncope or falls. Patient denies any specific vision changes. Denies any weakness, numbness or tingling in his extremities. Patient notes that he has been urinating quite frequently recently and often does not have very good p.o. intake at home. Patient denies any dysuria or burning with urination recently. He denies any fevers or chills currently. Denies any other acute concerns this morning. Vitals in ED notable for normotensive to mildly hypertensive BP, otherwise unremarkable. Notably did have orthostatic hypotension with 20 point drop of BPwith standing in the ED. Labs notable for WBC count 52 (close to baseline), hemoglobin 9.0, platelets 305, sodium 142, potassium 4.6, chloride 110, bicarb 26, BUN 62, creatinine 2.82, BNP 477, troponin normal. UA showed positive nitrites, 500 leukocyte esterase, greater than 100 WBCs, however 0 bacteria. Chest x-ray nonacute. CT brain without contrast showed no acute intracranial process, chronic involutional changes of the brain. During the hospitalization he had his home blood pressure medications held, IV fluids, was found to have Staph aureus UTI and retroperitoneal ultrasound demonstrated bladder stone and bilateral hydroureter and hydronephrosis. Patient had postvoid with retention and straight cath x1 and repeat in the evening showed continued retention, Hood placement with an additional 450 cc out, patient improved with Hood placement. Unclear if he had UTI leading to worsening urinary retention or if urinary retention led to UTI. He was started on tamsulosin and nortriptyline was held as it may have contributed to his urinary retention, of note does have history of prostate cancer, will DC with Hood and advise close follow-up with urology for further eval and management. Patient was discharged 03/08/2023 but reported continued feeling of being off balance despite no further significant orthostatic hypotension. Patient is very poor historian and had difficulty describing the feeling howeverafter pinning it down it seemed like objects were spinning around in front of him and he would get nauseous and it was not associated with standing up and could happen when he turned his head or looked various directions. MRI obtained which did not show acute infarct. On day of discharge patient reported that he was feeling better and was discharged on ciprofloxacin 250 mg every 12 hours. He presented back to the hospital with worsening nausea and vomiting after beingseen in the office with worsening nausea vomiting. He was discharged with a Hood and secondary to urinary retention and he followed up with urology today where the Hood was removed but he was describing his nausea and vomiting and therefore he was transferred back to the hospital as a direct admission under urology for further evaluation. [facility] Medical History (Updated 03/12/23 @ 16:32 by Sherry Avalos) Cancer CKD (chronic kidney disease) Essential hypertension Fracture of unspecified phalanx of unspecified finger, initial encounter for closed fracture Iron deficiency anemia LBBB (left bundle branch block) Non-ischemic cardiomyopathy Pacemaker Peripheral neuropathy Restless leg syndrome Subdural hematoma Syncope Syncope and collapse Ventricular tachycardia Home Medications multivitamin (Daily Multiple tablet) 1 ea PO DAILY 03/15/15 [History Last Taken 03/04/23] cholecalciferol (vitamin D3) 25 mcg (1,000 unit) capsule (Vitamin D3) 1,000 unitPO DAILY 08/09/16 [History Last Taken 03/04/23] carvedilol 25 mg tablet 25 mg PO BID 08/24/16 [History Last Taken 03/04/23] glucosamine 750 [id number] no1 644 mg-C 30 mg-jesus 1 mg tablet (Osteo Bi-Flex Triple Strength) 1 ea PO DAILY 08/24/16 [History Last Taken 03/04/23] sacubitril 49 mg-valsartan 51 mg tablet (Entresto) 1 tab PO BID 08/24/22 [History Last Taken 03/04/23] zinc acetate 50 mg (zinc) capsule 50 mg PO DAILY 08/24/22 [History Last Taken 03/04/23] atorvastatin 10 mg tablet 10 mg PO DAILY 03/04/23 [History Last Taken 03/03/23] ciprofloxacin HCl 250 mg tablet (Cipro) 250 mg PO Q12H 7 days #14 tabs 03/06/23 [Rx Last Taken Unknown] polysaccharide iron complex 150 mg iron capsule (Ferrex) 150 mg PO DAILY #30 caps 03/06/23 [Rx Last Taken Unknown] tamsulosin 0.4 mg capsule 0.4 mg PO DAILY 30 days #30 caps 03/06/23 [Rx Last Taken Unknown] Allergy/AdvReac Type Severity Reaction Status Date / Time lisinopril AdvReac Unknown cough Verified 03/05/23 11:08 Family History (Updated 08/24/22 @ 15:56 by Marely Parada) Mother CVA (cerebral vascular accident) Hypertension Diabetes Father Ischemic heart disease Diabetes Surgical History Cardiac 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 therapy defibrillator (MATTRESS STRIPPER-D) in place (~09/2015) History of arthroplasty of finger of left hand History of colonoscopy History of left heart catheterization (09/22/15) Splenic artery aneurysm Social History (Updated 08/24/22 @ 15:55 by Marely Parada) Smoking Status: Never smoker alcohol intake: never substance use type: does not use caffeine: Yes Type: coffee Number of servings: 3 ROS Constitutional Constitutional: Denies change in weight, chills, fatigue, fever(s) or weakness Eyes Eyes: Denies change in vision Cardiovascular Cardiovascular: Reports lightheadedness; Denies chest pain, edema, orthopnea, palpitations, rapid heart rate or syncope Respiratory/Chest Respiratory/Chest: Denies cough or shortness of breath at rest Gastrointestinal Gastrointestinal: Denies abdominal pain, constipation, diarrhea, nausea or vomiting Genitourinary Genitourinary: Denies burning urination or dysuria Neurologic Neurologic: Reports dizziness; Denies abnormal gait, abnormal speech, confusion,focal weakness, headache(s), numbness, paresthesias, syncope or tingling Physical Exam Narrative GENERAL: cooperative HEENT: Atraumatic; normocephalic EYES; Anicteric, Normal Conjunctiva NECK; supple, normal thyroid, RESPIRATORY: Diminished to auscultation CARDIOVASCULAR: Regular S1 S2, GI: soft, normoactive bowel sounds, : No Renal angle tenderness; EXTREMITIES: No edema, no clubbing, MUSCULOSKELETAL: no muscle wasting NEURO: Awake; no lateralizing signs. SKIN: No Rash PSYCH; Flat affect Lab / Micro Data 03/12/23 18:17 03/12/23 18:17 Labs: Laboratory Results - last 24 hr 03/12/23 18:17: WBC 69.5 H*, RBC 3.57 L, Hgb 9.4 L, Hct 31.3 L, MCV 87.7, MCH 26.3 L, MCHC 30.0 L, RDW Std Deviation 57.9 H, RDW Coeff of Willie 18.7 H, Plt Count 286, MPV 9.2, Immature Gran % (Auto) 0.600, Neut % (Auto) 13.2 L, Lymph % (Auto) 85.5 H, Campbell % (Auto) 0.5, Eos % (Auto) 0.1, Baso % (Auto) 0.1, Absolute Neuts (auto) 9.2 H, Absolute Lymphs (auto) 59.41 H, Nucleated RBC % 0, Differential Comment SEE COMMENTS, Diff Path Review May foll, Platelet Estimate ADEQUATE, RBC Morphology N CHROM, Anisocytosis RARE, Ovalocytes RARE, Sodium 143, Potassium 3.6, Chloride 110 H, Carbon Dioxide 28.0, Anion Gap 5, BUN 31 H, Creatinine 1.86 H, Estim Creat Clear Calc 28.60, Est GFR (MDRD) Af Amer 45 L, Est GFR (MDRD) Non-Af 37 L, BUN/Creatinine Ratio 16.7, Glucose 146 H, Calcium 8.4 L, Total Bilirubin 0.40, AST 23, ALT 25, Alkaline Phosphatase 80, Total Protein 5.6 L, Albumin 3.0 L, Globulin 2.6, Albumin/Globulin Ratio 1.2, Amylase 36, Lipase 12 L 03/12/23 20:30: Urine Color Yellow, Urine Clarity Clear, Urine pH 6.5, Ur Specific [place] 1.015, Urine Protein 30 H, Urine Glucose (UA) 100 H, Urine Ketones Negative, Urine Occult Blood 10 H, Urine Nitrite Negative, Urine Bilirubin Negative, Urine Urobilinogen Normal, Ur Leukocyte Esterase Negative, Urine RBC 0 SEEN, Urine WBC 0-5 SEEN, Ur Squamous Epith Cells 0 SEEN, Urine Bacteria 0 SEEN, Urine Mucus 0 SEEN Radiology Impression Abdomen/Pelvis CT 03/12/23 16:51 IMPRESSION: Findings suspicious for cystitis. Correlate with urinalysis. Mild bilateral pelviectasis with no obstructing stone seen. Retroperitoneal lymphadenopathy of uncertain etiology. 3.2 cm intermediate density cyst in the left upper renal pole it is indeterminate.. Recommend multiphase MR abdomen with and without contrast renal mass protocol. 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 Electronically Signed: Kennedy Day MD at 19:35 EDT , Assessment & Plan Assessment/Plan (1) Urinary retention: PLAN: Plan 82-year-old with past medical history of CLL, prostate cancer status post ration, CKD stage III and recent urinary tract infection with obstructive uropathy status post Hood and removal Urinary retention with hydronephrosis/history of prostate cancer/nausea and vomiting ? He thinks that the nausea and vomiting is due to his iron and Cipro but is also been having dizziness for the last 6 months He will undergo an upper endoscopy to make sure it is not an acute GI pathology contributing to his nausea and vomiting. If that is normal then I will treat him accordingly. He was explained alternatives, risk, benefits include not withstanding bleeding, infection, sepsis, perforation, need for emergency to . Have an ASA of 3. Chronic systolic CHF/HTN/HLD ? Seems to be stable and not contributing to his nausea vomiting Charges/Coding Visit Charges Inpatient E&M: 66525 Init Hosp L3 03/13/23 1243 <Electronically signed by Harpreet Hartman DO> Cosigner Signature (if applicable): CC: RENETTA Turcios; Dr. Janine Payne MD; Dr. Braxton Powers MD;Harpreet Hartman DO~ Signed [facility] Work Phone: 1(303) 627-315110-31-2023 Procedure [facility] 03-13-2023 Procedure [facility]10-31-2023 Progress note Author Mehreen Cavazos [facility] March 13, 2023 10:07am Note Date/Time March 13, 2023 1 0:03am [facility] Medical Records Department [address] [place] [address] Progress Note - Hospitalist 03/13/23 0956 MR#: [id number] Acct: [id number] Name: JAIME ANN Rep #:[id number] : 1940 82 From: Mehreen Cavazos MD PCP: RENETTA Justice Status:ADM IN Location: [place] [address] Reason for Visit Reason for Visit: Diagnoses Malignant neoplasm of prostate (03/12/23) Chronic lymphocytic leukemia of B-cell type not having achieved remission (03/12/23) Anemia, unspecified (03/12/23) Orthostatic hypotension (03/12/23) Acute kidney failure, unspecified (03/12/23) Urinary tract infection, site not specified (03/12/23) Retention of urine, unspecified (03/12/23) Dizziness and giddiness (03/12/23) Unspecified fall, initial encounter (03/12/23) Personal history of leukemia (03/12/23) Subjective Subjective Patient is an 82-year-old gentleman With history of recent hospitalization with staph UTI discharged home with a Hood catheter due to urinary retention admitted with nausea vomiting and dizziness Objective Data Objective Data Vital Signs: Vital Signs Temp Pulse Resp BP Pulse Ox O2 Del Method 98 F 61 14 177/68 H 91 Room Air 03/13/23 08:31 03/13/23 08:31 03/13/23 08:31 03/13/23 08:31 03/13/23 08:31 03/13/23 08:31 Oxygen Delivery Method Room Air Weight: 73.9 kg Body Mass Index (BMI) 24.7 Intake & Output: Intake and Output for Last 24 Hours 03/11/23 03/12/23 03/13/23 23:59 23:59 23:59 Intake Total 300 / 300 1091.25 / 1091.25 Output Total 500 / 500 375 / 375 Balance -200 / -200 716.25 / 716.25 Lab / Micro Data 03/12/23 18:17 03/12/23 18:17 Labs: Laboratory Results - last 24 hr 03/12/23 18:17: WBC 69.5 H*, RBC 3.57 L, Hgb 9.4 L, Hct 31.3 L, MCV 87.7, MCH 26.3 L, MCHC 30.0 L, RDW Std Deviation 57.9 H, RDW Coeff of Willie 18.7 H, Plt Count 286, MPV 9.2, Immature Gran % (Auto) 0.600, Neut % (Auto) 13.2 L, Lymph % (Auto) 85.5 H, Campbell % (Auto) 0.5, Eos % (Auto) 0.1, Baso % (Auto) 0.1, Absolute Neuts (auto) 9.2 H, Absolute Lymphs (auto) 59.41 H, Nucleated RBC % 0, Differential Comment SEE COMMENTS, Diff Path Review May foll, Platelet Estimate ADEQUATE, RBC Morphology N CHROM, Anisocytosis RARE, Ovalocytes RARE, Sodium 143, Potassium 3.6, Chloride 110 H, Carbon Dioxide 28.0, Anion Gap 5, BUN 31 H, Creatinine 1.86 H, Estim Creat Clear Calc 28.60, Est GFR (MDRD) Af Amer 45 L, Est GFR (MDRD) Non-Af 37 L, BUN/Creatinine Ratio 16.7, Glucose 146 H, Calcium 8.4 L, Total Bilirubin 0.40, AST 23, ALT 25, Alkaline Phosphatase 80, Total Protein 5.6 L, Albumin 3.0 L, Globulin 2.6, Albumin/Globulin Ratio 1.2, Amylase 36, Lipase 12 L 03/12/23 20:30: Urine Color Yellow, Urine Clarity Clear, Urine pH 6.5, Ur Specific Midland 1.015, Urine Protein 30 H, Urine Glucose (UA) 100 H, Urine Ketones Negative, Urine Occult Blood 10 H, Urine Nitrite Negative, Urine Bilirubin Negative, Urine Urobilinogen Normal, Ur Leukocyte Esterase Negative, Urine RBC 0 SEEN, Urine WBC 0-5 SEEN, Ur Squamous Epith Cells 0 SEEN, Urine Bacteria 0 SEEN, Urine Mucus 0 SEEN Radiography Diagnostic Testing: Radiology Impression Abdomen/Pelvis CT 03/12/23 16:51 IMPRESSION: Findings suspicious for cystitis. Correlate with urinalysis. Mild bilateral pelviectasis with no obstructing stone seen. Retroperitoneal lymphadenopathy of uncertain etiology. 3.2 cm intermediate density cyst in the left upper renal pole it is indeterminate.. Recommend multiphase MR abdomen with and without contrast renal mass protocol. 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 Electronically Signed: Kennedy Day MD at 19:35 EDT , Physical Exam Narrative GENERAL: cooperative HEENT: Atraumatic; normocephalic EYES; Anicteric, Normal Conjunctiva NECK; supple, normal thyroid, RESPIRATORY: Diminished to auscultation CARDIOVASCULAR: Regular S1 S2, GI: soft, normoactive bowel sounds, : No Renal angle tenderness; EXTREMITIES: No edema, no clubbing, MUSCULOSKELETAL: no muscle wasting NEURO: Awake; no lateralizing signs. SKIN: No Rash PSYCH; Flat affect Assessment & Plan Assessment/Plan (1) Urinary retention: PLAN: Plan Patient is an 82-year-old gentleman With history of recent hospitalization with staph UTI discharged home with a Hood catheter due to urinary retention admitted with nausea vomiting and dizziness 1. Intractable nausea vomiting ? Suspected to be secondary to acute urinary tract infection. Patient had recently grown staph patient was started on ciprofloxacin repeat cultures sent. Patient also has a stone and plan is for cystolitholapaxy removal of the bladderstone and possible TURP on 03/14/[address] Payne 2. Urinary retention ? Status post Hood catheter placement followed by urology 3. History of prostate CA ? Follows with Dr. Bush with oncology as noted above. Diagnosed with prostate cancer stage IIa in 2015, completed radiation therapy in July 2015 and receivedLHRH agonist for treatment via Dr. Payne with Urology 4. 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 Status post cardiac 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 therapy defibrillator placement. Patient is on carvedilol did continue on Entresto held given low blood pressure and impaired kidney function 5. Anemia - Secondary to chronic disorder monitoring H&H and transfuse if patient becomes symptomatic or hemoglobin falls below 7 6. Chronic lymphocytic leukemia with significant leukocytosis ? Followed by oncology 7. Chronic kidney disease stage III ? Kidney function at baseline 8. Dyslipidemia -Patient is on statin therapy, continued at home dose 9. DVT prophylaxis ? Started on SC heparin Time spent in the patient's overall evaluation,decision-making process, review of diagnostic data, adjustment of management, discussion with other providers, nursing nursing and ancillary staff involved in patient's care documentation,50 Minutes Charges/Coding Visit Charges Inpatient E&M: 97422 Subs Hosp L3 03/13/23 1007 <Electronically signed by Mehreen Cavazos MD> Cosigner Signature (if applicable): CC: ~ Signed [facility] Work Phone: 1(209) 945-313210-31-2023 Progress note Author Janine Payne [facility] March 13, 2023 7:35am Note Date/Time March 13, 2023 7 :35am [facility] Medical Records Department [address] [place] [id number] Progress Note - Urology 03/13/23 0734 MR#: [id number] Acct: [id number] Name: ETHANJAIME MICHAELS MEHREEN Rep #:[id number] : 1940 82 From: Janine Payne MD PCP: RENETTA Justice Status:ADM [id number] scan last night demonstrates a distended bladder and a bladder stone has a history of a recent UTI with Staph aureus. We will start him on antibiotics with Cipro 40 mg IV twice daily n.p.o. at midnight plan for surgery tomorrow forcystolitholapaxy removal of the bladder stone and possible TURP. Hold all bloodthinners Objective Data Objective Data Vital Signs: Vital Signs Temp Pulse Resp BP Pulse Ox O2 Del Method 97.6 F L 70 16 162/90 H 93 Room Air 03/13/23 03:38 03/13/23 03:38 03/13/23 03:38 03/13/23 03:38 03/13/23 03:38 03/13/23 03:38 Oxygen Delivery Method Room Air Weight: 73.9 kg Body Mass Index (BMI) 24.7 Intake & Output: Intake and Output for Last 24 Hours 03/11/23 03/12/23 03/13/23 23:59 23:59 23:59 Intake Total 300 / 300 1091.25 / 1091.25 Output Total 500 / 500 375 / 375 Balance -200 / -200 716.25 / 716.25 Lab / Micro Data 03/12/23 18:17 03/12/23 18:17 Labs: Laboratory Results - last 24 hr 03/12/23 18:17: WBC 69.5 H*, RBC 3.57 L, Hgb 9.4 L, Hct 31.3 L, MCV 87.7, MCH 26.3 L, MCHC 30.0 L, RDW Std Deviation 57.9 H, RDW Coeff of Willie 18.7 H, Plt Count 286, MPV 9.2, Immature Gran % (Auto) 0.600, Neut % (Auto) 13.2 L, Lymph % (Auto) 85.5 H, Campbell % (Auto) 0.5, Eos % (Auto) 0.1, Baso % (Auto) 0.1, Absolute Neuts (auto) 9.2 H, Absolute Lymphs (auto) 59.41 H, Nucleated RBC % 0, Differential Comment SEE COMMENTS, Diff Path Review May foll, Platelet Estimate ADEQUATE, RBC Morphology N CHROM, Anisocytosis RARE, Ovalocytes RARE, Sodium 143, Potassium 3.6, Chloride 110 H, Carbon Dioxide 28.0, Anion Gap 5, BUN 31 H, Creatinine 1.86 H, Estim Creat Clear Calc 28.60, Est GFR (MDRD) Af Amer 45 L, Est GFR (MDRD) Non-Af 37 L, BUN/Creatinine Ratio 16.7, Glucose 146 H, Calcium 8.4 L, Total Bilirubin 0.40, AST 23, ALT 25, Alkaline Phosphatase 80, Total Protein 5.6 L, Albumin 3.0 L, Globulin 2.6, Albumin/Globulin Ratio 1.2, Amylase 36, Lipase 12 L 03/12/23 20:30: Urine Color Yellow, Urine Clarity Clear, Urine pH 6.5, Ur Specific Midland 1.015, Urine Protein 30 H, Urine Glucose (UA) 100 H, Urine Ketones Negative, Urine Occult Blood 10 H, Urine Nitrite Negative, Urine Bilirubin Negative, Urine Urobilinogen Normal, Ur Leukocyte Esterase Negative, Urine RBC 0 SEEN, Urine WBC 0-5 SEEN, Ur Squamous Epith Cells 0 SEEN, Urine Bacteria 0 SEEN, Urine Mucus 0 SEEN Radiography Diagnostic Testing: Radiology Impression Abdomen/Pelvis CT 03/12/23 16:51 IMPRESSION: Findings suspicious for cystitis. Correlate with urinalysis. Mild bilateral pelviectasis with no obstructing stone seen. Retroperitoneal lymphadenopathy of uncertain etiology. 3.2 cm intermediate density cyst in the left upper renal pole it is indeterminate.. Recommend multiphase MR abdomen with and without contrast renal mass protocol. 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 Electronically Signed: Kennedy Day MD at 19:35 EDT , 03/13/23 0735 <Electronically signed by Janine Payne MD> Cosigner Signature (if applicable): CC: ~ Signed [facility] Work Phone: [phone]) 590-675210-30-2023 History and physical note Author Janine Payne [facility] March 12, 2023 7:31pm Note Date/Time March 12, 2023 7 :31pm [facility] Medical Records Department [address] [place] [address] History & Physical Exam 03/12/231925 MR#: [id number] Acct: [id number] Name: JAIME ANN Rep #:[id number] : 1940 82 From: Janine Payne MD PCP: Kenn Turcios, GARNETT FEEDER-C Status:ADM IN Location: [facility] [id number] History and Physical CC/HPI: 82 year old male with history of prostat e cancer presents for a hospital follow up visit He was experiencing dizziness and weakness then fell at [facility] Presented to the ER and was found to have urinary retention and a UTI Admitted and treated with IV abx He was sent home with Cipro - he has been experiencing adverse reactions of nausea, vomiting & swelling. He discontinued this medication but symptoms persist He was sent home with a hood, presents today for removal He started taking Flomax on Sunday Denies hematuria ALLERGIES:Cipro - Swelling, Vomiting, Nausea MEDICATIONS: see in patient list. PAST SURGICAL HISTORY: - 2015, 2014 Depolupron 1 3 4 Month - 2017, 2017, 2016, 2016, 2016 Hand/finger Surgery - 2019 Heart Pacemaker/ICD Initial Male VB Sounds - 2015 Laser Surgery Prostate - 2015 Patient documented to have received pneumococcal vaccination PLACE RT DEVICE/MARKER, PROS - 2015 Prostate Needle Biopsy - 2014 Transrectal Biopsy US - 2015, 2014 PAST MEDICAL HISTORY:- 06/01/2022, - 2021, - 2017, - 2016, - 2017, - 2017, - 2016, - 2016, - 2016, - 2016, - 2016, - 2016, - 2015, - 2014 Nocturia - 06/01/2022 Male erectile dysfunction, unspecified (Stable) - 2021, - 2014, - 2013 Post-traumatic bulbous urethral stricture - 2021, - 2016 Overactive bladder - 2020 Personal history of malignant neoplasm of prostate - 2020 Urge incontinence (Stable) - 2020, - 2015 Urgency of urination - 2020 Poor urinary stream - 2015, - 2015, - 2016, - 2016, - 2016, - 2015, - 2015, - 2015, - 2015, - 2013, - 2012 Urethral stricture, unspecified - 2016 Benign prostatic hyperplasia with lower urinary tract symptoms - 2015, - 2015, - 2015, - 2015, - 2015, - 2015, - 2014 Post-traumatic urethral stricture, male, meatal - 2016 Feeling of incomplete bladder emptying - 2016 Neuromuscular dysfunction of bladder, unspecified - 2015 Elevated prostate specific antigen [PSA] - 2014 Benign neoplasm of urinary organ, unspecified - 2014, - 2014, - 2013, - 2012, - 2011 Cutaneous T-cell lymphoma, unspecified, intra-abdominal lymph nodes Hyperlipidemia, unspecified Non-ST elevation (NSTEMI) myocardial infarction Polyneuropathy in diseases classified elsewhere Presence of cardiac pacemaker Secondary hypertension, unspecified FAMILY HISTORY:Diabetes - Runs in Family Hypertension - Runs in Family SOCIAL HISTORY:Marital Status: Preferred Language: Chinese; Ethnicity: Not Or ; Race: White Current Smoking Status: Patient has never smoked. Does not use smokeless tobacco. Has never drank. Does not use drugs. Drinks 2 caffeinated drinks per day. Has not had a blood transfusion REVIEW OF SYSTEMS:Constitutional: ?Gastrointestinal: ?Patient reports nausea and vomiting.Genitourinary: ?hood in place today in office . Patient reports urinary retention. VITAL SIGNS:?03/12/2023 02:23 PMWeightBP PHYSICAL EXAM:Penis:Penile hood catheter present. Experiencing N/V in office Complexity of Data: Source Of History:? Lab Test Review: ? Records Review: ? X-Ray Review: PROCEDURES: ASSESSMENT: ? ICD-10 Details PLAN: ? ? ? Document Letter(s): ? ? ?Notes: ? Experiencing persistent N/V since hospital admission, thought it was due to Cipro but has not had much improvement after discontinuing medication. Reviewed urine culture, CBC, CMP, renal US from hospital admission. Hood was removed in office however he was retaining urine prior to placement. Educated that he needs to push fluids and if he can't urinate within 6 hours he will need hood replaced. Based on his previous test results and his current symptoms in office he would benefit from hospital admission and further work up. Patient agrees with this plan. Direct admit to hospital, written orders provided. 0 Assessment & Plan Assessment/Plan (1) Urinary retention: PLAN: Hood out voiding trial tonight nurse instructed to replace hood if can't void (2) Orthostatic hypotension: (3) Fall: (4) History of chronic lymphocytic leukemia: PLAN: wbc elevated? (5) Anemia: (6) Dizziness: (7) UTI (urinary tract infection): (8) Acute kidney injury: (9) CLL (chronic lymphocytic leukemia): (10) Prostate cancer: PLAN: stabel PLAN: Plan persistent Nausea and vomiting not feeling well hood removed for a void trial medical consult consult for nausea and vomiting will also order imaging 03/12/231930 <Electronically signed by Janine Payne MD> Cosigner Signature (if applicable): CC: RENETTA Turcios; Dr. Janine Payne MD~ Signed [facility] Work Phone: 1(419) 421-532110-30-2023 Progress note Author rBaxton Powers [facility] March 12, 2023 6:23pm Note Date/Time March 12, 2023 5 :29pm [facility] Medical Records Department [address] [place] [address] Progress Note - Hospitalist 03/12/231723 MR#: [id number] Acct: [id number] Name: JAIME ANN Rep #:[id number] : 1940 82 From: Braxton canas MD PCP: RENETTA Justice Status:ADM IN Location: [facility] [id number] Subjective Subjective 82-year-old male who was recently discharged from the hospital for a staph UTI as well as his 6 months of dizziness. At that time he was found to have some orthostatic hypotension but he was not having any nausea or vomiting. He was found to have a staph UTI started on Cipro but he says that he thinks that the nausea and vomiting started because of the Cipro and the iron so he stopped taking it. He was discharged with a Hood and secondary to urinary retention and he followed up with urology today where the Hood was removed but he was describing his nausea and vomiting and therefore he was transferred back to the hospital as a direct admission under urology for further evaluation. Lab work is currently pending, but vital signs so far are unremarkable, his blood pressure is a little bit elevated. Objective Data Objective Data Vital Signs: Vital Signs Temp Pulse Resp BP Pulse Ox O2 Del Method 98.5 F 57 L 18 172/66 H 97 Room Air 03/12/23 17:03/12/23 17:01 03/12/23 17:01 03/12/23 17:01 03/12/23 17:01 03/12/23 17:01 Oxygen Delivery Method Room Air Weight: 162 lb 14.746 oz Body Mass Index (BMI) 24.7 Physical Exam Narrative General: Alert, Oriented x3, Cooperative, No apparent distress HEENT: Atraumatic, PERRLA, EOMI, Normocephalic Oral: Moist Mucosa Neck: Supple, No JVD Lungs: Diminished, Normal air movement, No rhonchi, No wheeze, No rales Cardiovascular: Regular rate, Regular Rhythm, Normal S1, Normal S2, No murmurs Abdomen: Soft, Non Tender, Non-Distended, No Hepato-splenomegaly Extremities: No edema, Capillary Refill Less than 3 Seconds Skin: No rashes, No breakdown Musculoskeletal: No Tenderness to Palpation of Joints or Extremities Neurological: Cranial nerves II-XII grossly intact, Motor Exam 5/5 strength throughout, Sensory exam intact to light touch and pain Psych/Mental Status: Normal Affect, Appropriate Assessment & Plan Assessment/Plan (1) Urinary retention: PLAN: Plan 1. Urinary retention with hydronephrosis/history of prostate cancer/nausea and vomiting ?He was a direct admission from the urologist office secondary to nausea and vomiting ? He thinks that the nausea and vomiting is due to his iron and Cipro but is also been having dizziness for the last 6 months ? We will place him on Zofran and start him on IV fluids ? Of note on his previous admission to have a Staph aureus UTI which was sensitive to Levaquin and he was discharged on Cipro, will repeat UA ? Continue with Flomax 2. Chronic systolic CHF/HTN/HLD ? Blood pressures are stable, will monitor and make adjustments as necessary ? Continue with his Coreg but will continue to hold Entresto pending a BMP to monitor his renal function as this was held on his last discharge secondary to AUGUSTO 3. CLL with normocytic anemia ? Being monitored by oncology as an outpatient DVT: SCDs Charges/Coding Visit Charges Inpatient E&M: 77421 Subs Hosp L2 03/12/231822 <Electronically signed by Braxton Powers MD> Cosigner Signature (if applicable): CC: ~ Signed [facility] Work Phone: [phone]) 397-469410-26-2023 Miscellaneous Notes* Telephone Encounter - Ananya Manzo - 03/08/2023 8:24 AM EDT Outside EP Signed, fax'd/rec'd & scanned into outside ep. Ananya Manzo [facility] Progress note Author Laura Bowman [facility] March 07, 2023 11:51am Note Date/Time March 07, 2023 1 1:51am [facility] Medical Records Department [address] [place] [address] Progress Note - Hospitalist 03/07/23 1144 MR#: [id number] Acct: [id number] Name: JAIME ANN Rep #:[id number] : 1940 82 From: Laura Bowman MD PCP: PO JusticeC Status:ADM IN Location: [place] [address] Reason for Visit Reason for Visit: Diagnoses Chronic lymphocytic leukemia of B-cell type not having achieved remission (03/05/23) Orthostatic hypotension (03/05/23) Acute kidney failure, unspecified (03/05/23) Chronic kidney disease, unspecified (03/05/23) Urinary tract infection, site not specified (03/05/23) Retention of urine, unspecified (03/05/23) Subjective Subjective Patient reports still intermittently having a feeling of unsteadiness, patient has a very difficult time describing this feeling but does not seem to be necessarily lightheaded and said sometimes he will be looking at something and it will appear to be oscillating [id number] and it will take a minute beforeeverything stays still and he will get nauseous sometimes and can happen when standing or sitting down he said this has been going on for a week and progressively worsening and is what brought him to the hospital more so than a dizziness going from sitting to standing. Objective Data Objective Data Vital Signs: Vital Signs Temp Pulse Resp BP Pulse Ox O2 Del Method 97.8 F 81 16 160/68 H 97 Room Air 03/07/23 09:30 03/07/23 09:30 03/07/23 09:30 03/07/23 09:30 03/07/23 09:30 03/07/23 09:30 Oxygen Delivery Method Room Air Weight: 76.6 kg Body Mass Index (BMI) 25.7 Intake & Output: Intake and Output for Last 24 Hours 03/05/23 03/06/23 03/07/23 23:59 23:59 23:59 Intake Total 4032.08 / 4032.08 2405 / 2645 940 / 940 Output Total 1150 / 1150 3450 / 4150 2049 Balance 2882.08 / 2882.08 -1045 / -1505 -1110 / -1110 Lab / Micro Data 03/07/23 05:17 03/07/23 05:17 Labs: Laboratory Results - last 24 hr 03/05/23 11:30: Diff Path Review Reviewed 03/06/23 05:57: Diff Path Review Reviewed 03/07/23 05:17: WBC 58.3 H*, RBC 3.46 L, Hgb 8.9 L, Hct 29.9 L, MCV 86.4, MCH 25.7 L, MCHC 29.8 L, RDW Std Deviation 55.8 H, RDW Coeff of Willie 18.0 H, Plt Count 292, MPV 9.6, Immature Gran % (Auto) 0.500, Neut % (Auto) 10.5 L, Lymph % (Auto) 85.1 H, Campbell % (Auto) 3.1, Eos % (Auto) 0.6, Baso % (Auto) 0.2, Absolute Neuts (auto) 6.1, Absolute Lymphs (auto) 49.61 H, Nucleated RBC % 0, Differential Comment SCANNED, Diff Path Review September, Sodium 143, Potassium 3.7, Chloride 110 H, Carbon Dioxide 26.0, Anion Gap 7, BUN 31 H, Creatinine 1.73 H, Estim Creat Clear Calc 30.75, Est GFR (MDRD) Af Amer 49 L, Est GFR (MDRD) Non-Af40 L, BUN/Creatinine Ratio 17.9, Glucose 103, Calcium 8.5, Phosphorus 2.9, Magnesium 1.9, Total Bilirubin 0.30, Direct Bilirubin 0.10, AST 17, ALT 16, Alkaline Phosphatase 89, C-React Prot Ext Range 15.50 H, Total Protein 5.4 L, Albumin 2.6 L, Globulin 2.8, TSH 4.48 H, Free T4 1.10 Micro: Microbiology 03/04/23 13:00 Urine, Clean Catch Urine Culture - Final Staphylococcus aureus Physical Exam Narrative General: Alert, oriented, no apparent distress HEENT: Atraumatic, normocephalic Eyes: Anicteric, normal conjunctiva, extraocular movements intact, pupils equal Neck: Supple Respiratory: Clear to auscultation bilaterally, normal respiratory effort Cardiovascular: Regular rate and rhythm GI: Soft, nontender, nondistended Extremities: No edema Musculoskeletal: Strength 5 out of 5 in right upper extremity, 5 out of 5 left upper extremity, 5 out of 5 right lower extremity, 5 out of 5 left lower extremity Neuro: No overt focal neurological deficits, cranial nerves II through XII intact, [id number] without significant difficulty bilaterally Skin: No rashes appreciated Psych: Cooperative Assessment & Plan Assessment/Plan (1) Orthostatic hypotension: PLAN: Plan Patient is an 82-year-old male with past medical history of heart failure with recovered ejection fraction, prostate cancer s/p radiation, iron deficiency anemia and CLL who presented to [facility] ED on 03/04/2023 withworsening dizziness. 1. Dizziness, orthostatic hypotension, feeling of being off balance Positive orthostatic vital signs in the ED, blood pressure dropped about 20 points with standing. Orthostatic hypotension seems like most likely cause of hisdizziness. May be secondary to overmedication. Does not seem consistent with BPPV or vertigo. Very low concern for intracranial etiology. CT brain without contrast in ED showed no acute intracranial process, chronic evolution of changes of the brain. Patient notably is on Coreg and Entresto for heart failure as noted below. ? Admit under observation status to PCU. We will give low-dose maintenance IV fluids through tomorrow morning. Recheck orthostatic vitals tomorrow. Hold home Coreg and Entresto for now, can likely restart Coreg tomorrow but would consider holding Entresto on discharge and can follow-up outpatient with cardiology to consider resuming at that time if needed. -03/05: Likely exacerbated by underlying infection, blood pressure support, PT evaluation, repeat orthostatic vital signs -03/06: Patient repeat orthostats which were not overly impressive and patient actually was hypertensive, suspect this is all still due to resolving UTI and AUGUSTO, will continue present management and have patient work with physical therapy tomorrow -03/07: Still has this feeling of being off balance that is affecting his ambulation and makes him sick, patient has difficult time describing this, will obtain further lab work-up and will attempt to obtain an MRI if pacemaker is compatible. Pending work-up may need neurology involvement if still having symptoms and no other underlying etiology found. Could be inner ear in nature but the way patient describes symptoms are not necessarily classic for that but are certainly not classic for orthostatic hypotension. Telemetry reviewed and patient does get intermittent PVCs but does not seem to string together and associated with his feeling unsteady this 2. AUGUSTO on CKD III with bilateral hydronephrosis secondary to urinary retention Presumed prerenal AUGUSTO secondary to hypovolemia from possible overmedication as noted above. BUN 62, creatinine 2.82 on admit. Baseline creatinine appears to be around 1.3-1.6. ? Follow-up BMP tomorrow after IV fluids as noted above. Urine sodium and creatinine ordered to calculate FeNa. Lower concern for postobstructive etiology as patient reports good urine output, but will order renal/bladder ultrasound for completeness sake, especially given his history of prostate cancer as noted below. -03/05: Improved slightly from yesterday, Fena 2.3% and urine sodium 57, appearsto be intrinsic in nature, especially given history of heart failure we will proceed cautiously with fluids, will consult nephrology. Patient with moderate to severe bilateral hydronephrosis and hydroureter with a bladder calculus. We will get postvoid to see if patient has any retention. No previous imaging available -03/06: Patient retaining urine x2, Hood catheter placed last night and is improving, started on tamsulosin, treat underlying UTI, will likely need to DC with Hood catheter and outpatient follow-up -03/07: Continues to improve 3. Concern for UTI- found to have staph aureus UTI UA on admit with 500 leukocyte esterase, positive nitrates, greater than 100 WBCs, however no bacteria seen. Given 1 dose of IV ceftriaxone empirically in the ED. ? We will continue empiric ceftriaxone for now. Urine culture pending. -03/05: Growing Staph aureus in urine, Rocephin switched to vancomycin while awaiting sensitivities -03/06: Blood cultures added by infectious disease. Also switch to Cipro 200 twice daily based on sensitivities and kidney function -03/07: Good urine output, continue antibiotics 4. CLL, severe leukocytosis Follows outpatient with Dr. Bush with Oncology, last known office visit was in February 2022. Diagnosed with CLL back in 2003, has not required therapy to thispoint. WBC count has consistently been in the 40s since 2019. WBC count of 52 on admit. May be slightly elevated secondary to UTI, otherwise likely close to patient's baseline. Afebrile on admit. ? Monitor CBC daily. Outpatient follow-up with oncology. 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 Heart failure with recovered ejection fraction Patient had echo from 2015 that showed an EF of 20% at that time. Has followed with [facility] cardiology since then. On review of [facility] records, patient had an echo in 09/2022 that showed an EF of 48%. He is on home Coreg 25 mg twice daily and Entresto 49-51 mg twice daily. Patient denies any recent medication changes that he is aware of. ? Holding home Coreg and Entresto for now as noted above. Given the patient's ejection fraction has recovered fairly well, may be reasonable to hold Entresto on discharge and monitor BP outpatient. Can follow-up with [facility] cardiology and determine if patient continues to need Entresto going forward. Can likely restart Coreg on discharge. -03/05: Daily weights, I's and O's, holding Entresto 6. Multifactorial normocytic anemia Previously diagnosed with iron deficiency anemia back in February 2021. Unclear if patient was taking iron supplementation for this. Hemoglobin 9.0 on admit, baseline hemoglobin appears to be around 10-11. No signs of bleeding. ? Monitor CBC daily. Repeat iron studies ordered. Vitamin B12 and folate ordered as well. -03/05: Ferritin and 90s but low iron level and saturation, suspect component ofiron depletion but also chronic disease likely secondary to CKD. Folate within normal limits and B12 actually elevated, continue to monitor, no active blood loss appreciated 7. History of prostate cancer Follows with Dr. Bush with oncology as noted above. Diagnosed with prostate cancer stage IIa in 2015, completed radiation therapy in July 2015 and receivedLHRH agonist for treatment via Dr. Payne with Urology. Not currently on any treatment, remains on observation. ? Continue outpatient follow-up. DVT prophylaxis: Heparin subcu CODE STATUS: Full code, verified Expected disposition: TBD Total clinical time spent by myself addressing the patient's medical issues, reviewing all the data, and collaborating with patient's care team: 51 minutes. Charges/Coding Visit Charges Inpatient E&M: 98482 Subs Hosp L3 03/07/23 1151 <Electronically signed by Laura Bowman MD> Cosigner Signature (if applicable): CC: ~ Signed [facility] Work Phone: 1(804) 812-451510-24-2023 Progress note Author Laura Bowman [facility] March 06, 2023 5:10pm Note Date/Time March 06, 2023 4 :54pm [facility] Medical Records Department [address] [place] [address] Progress Note - Hospitalist 03/06/23 1642 MR#: [id number] Acct: [id number] Name: JAIME ANN Rep #:[id number] : 1940 82 From: Laura Bowman MD PCP: RENETTA Justice Status:ADM IN Location: [place] [address] Reason for Visit Reason for Visit: Diagnoses Chronic lymphocytic leukemia of B-cell type not having achieved remission (03/05/23) Orthostatic hypotension (03/05/23) Acute kidney failure, unspecified (03/05/23) Chronic kidney disease, unspecified (03/05/23) Urinary tract infection, site not specified (03/05/23) Retention of urine, unspecified (03/05/23) Subjective Subjective Patient had been doing better earlier in the day but feeling a little bit unsteady and had an episode of emesis but patient very poor at describing any other associated symptoms or problems Objective Data Objective Data Vital Signs: Vital Signs Temp Pulse Resp BP Pulse Ox O2 Del Method 98.2 F 74 16 145/73 H 94 Room Air 03/06/23 16:09 03/06/23 16:09 03/06/23 16:09 03/06/23 16:09 03/06/23 16:09 03/06/23 16:09 Oxygen Delivery Method Room Air Weight: 79.3 kg Body Mass Index (BMI) 26.6 Intake & Output: Intake and Output for Last 24 Hours 10/22/23 10/23/23 10/24/23 23:59 23:59 23:59 Intake Total 750 / 1550 4032.08 / 4032.08 1185 / 1185 Output Total 1150 / 1150 2650 / 2650 Balance 750 / 1550 2882.08 / 2882.08 -1465 / -1465 Lab / Micro Data 03/06/23 05:57 03/06/23 05:57 Labs: Laboratory Results - last 24 hr 03/04/23 12:55: Diff Path Review Reviewed 03/05/23 11:30: Diff Path Review Reviewed 03/06/23 05:57: WBC 53.7 H*, RBC 3.31 L, Hgb 8.5 L, Hct 28.3 L, MCV 85.5, MCH 25.7 L, MCHC 30.0 L, RDW Std Deviation 55.1 H, RDW Coeff of Willie 17.9 H, Plt Count 265, MPV 9.6, Immature Gran % (Auto) 0.400, Neut % (Auto) 9.6 L, Lymph % (Auto) 87.2 H, Campbell % (Auto) 1.9, Eos % (Auto) 0.7, Baso % (Auto) 0.2, Absolute Neuts (auto) 5.1, Absolute Lymphs (auto) 46.86 H, Nucleated RBC % 0, Differential Comment SCANNED, Diff Path Review Reviewed, Sodium 142, Potassium 3.4 L, Chloride 111 H, Carbon Dioxide 26.0, Anion Gap 5, BUN 41 H, Creatinine 1.95 H, Estim Creat Clear Calc 27.28, Est GFR (MDRD) Af Amer 42 L, Est GFR (MDRD) Non-Af 35 L, BUN/Creatinine Ratio 21.0 H, Glucose 109 H, Calcium 8.5 Micro: Microbiology 03/04/23 13:00 Urine, Clean Catch Urine Culture - Final Staphylococcus aureus Physical Exam Narrative General: Alert, no acute distress HEENT: Atraumatic, normocephalic Eyes: Anicteric, normal conjunctiva, extraocular movements grossly intact Neck: Supple Respiratory: Clear to auscultation bilaterally, normal respiratory effort Cardiovascular: Regular rate GI: Soft, nontender, nondistended Extremities: No edema Musculoskeletal: Moving all extremities Neuro: No overt focal neurological deficits Skin: No rashes appreciated Psych: Cooperative Assessment & Plan Assessment/Plan (1) Orthostatic hypotension: PLAN: Plan Patient is an 82-year-old male with past medical history of heart failure with recovered ejection fraction, prostate cancer s/p radiation, iron deficiency anemia and CLL who presented to [facility] ED on 03/04/2023 withworsening dizziness. 1. Dizziness, orthostatic hypotension Positive orthostatic vital signs in the ED, blood pressure dropped about 20 points with standing. Orthostatic hypotension seems like most likely cause of his dizziness. May be secondary to overmedication. Does not seem consistent with BPPV or vertigo. Very low concern for intracranial etiology. CT brain without contrast in ED showed no acute intracranial process, chronic evolution of changes of the brain. Patient notably is on Coreg and Entresto for heart failure as noted below. ? Admit under observation status to PCU. We will give low-dose maintenance IV fluids through tomorrow morning. Recheck orthostatic vitals tomorrow. Hold home Coreg and Entresto for now, can likely restart Coreg tomorrow but would consider holding Entresto on discharge and can follow-up outpatient with cardiology to consider resuming at that time if needed. -03/05: Likely exacerbated by underlying infection, blood pressure support, PT evaluation, repeat orthostatic vital signs -03/06: Patient repeat orthostats which were not overly impressive and patient actually was hypertensive, suspect this is all still due to resolving UTI and AUGUSTO, will continue present management and have patient work with physical therapy tomorrow 2. AUGUSTO on CKD III with bilateral hydronephrosis secondary to urinary retention Presumed prerenal AUGUSTO secondary to hypovolemia from possible overmedication as noted above. BUN 62, creatinine 2.82 on admit. Baseline creatinine appears to be around 1.3-1.6. ? Follow-up BMP tomorrow after IV fluids as noted above. Urine sodium and creatinine ordered to calculate FeNa. Lower concern for postobstructive etiology as patient reports good urine output, but will order renal/bladder ultrasound for completeness sake, especially given his history of prostate cancer as noted below. -03/05: Improved slightly from yesterday, Fena 2.3% and urine sodium 57, appearsto be intrinsic in nature, especially given history of heart failure we will proceed cautiously with fluids, will consult nephrology. Patient with moderate to severe bilateral hydronephrosis and hydroureter with a bladder calculus. We will get postvoid to see if patient has any retention. No previous imaging available -03/06: Patient retaining urine x2, Hood catheter placed last night and is improving, started on tamsulosin, treat underlying UTI, will likely need to DC with Hood catheter and outpatient follow-up 3. Concern for UTI- found to have staph aureus UTI UA on admit with 500 leukocyte esterase, positive nitrates, greater than 100 WBCs, however no bacteria seen. Given 1 dose of IV ceftriaxone empirically in the ED. ? We will continue empiric ceftriaxone for now. Urine culture pending. -03/05: Growing Staph aureus in urine, Rocephin switched to vancomycin while awaiting sensitivities -03/06: Blood cultures added by infectious disease. Also switch to Cipro 200 twice daily based on sensitivities and kidney function 4. CLL, severe leukocytosis Follows outpatient with Dr. Bush with Oncology, last known office visit was in February 2022. Diagnosed with CLL back in 2003, has not required therapy to thispoint. WBC count has consistently been in the 40s since 2019. WBC count of 52 on admit. May be slightly elevated secondary to UTI, otherwise likely close to patient's baseline. Afebrile on admit. ? Monitor CBC daily. Outpatient follow-up with oncology. -03/05: Continue to monitor white blood cell count -03/06: Patient follows with oncology on outpatient basis 5. Heart failure with recovered ejection fraction Patient had echo from 2015 that showed an EF of 20% at that time. Has followed with [facility] cardiology since then. On review of [facility] records, patient had an echo in 09/2022 that showed an EF of 48%. He is on home Coreg 25 mg twice daily and Entresto 49-51 mg twice daily. Patient denies any recent medication changes that he is aware of. ? Holding home Coreg and Entresto for now as noted above. Given the patient's ejection fraction has recovered fairly well, may be reasonable to hold Entresto on discharge and monitor BP outpatient. Can follow-up with [facility] cardiology and determine if patient continues to need Entresto going forward. Can likely restart Coreg on discharge. -03/05: Daily weights, I's and O's, holding Entresto 6. Multifactorial normocytic anemia Previously diagnosed with iron deficiency anemia back in February 2021. Unclear if patient was taking iron supplementation for this. Hemoglobin 9.0 on admit, baseline hemoglobin appears to be around 10-11. No signs of bleeding. ? Monitor CBC daily. Repeat iron studies ordered. Vitamin B12 and folate ordered as well. -03/05: Ferritin and 90s but low iron level and saturation, suspect component ofiron depletion but also chronic disease likely secondary to CKD. Folate within normal limits and B12 actually elevated, continue to monitor, no active blood loss appreciated 7. History of prostate cancer Follows with Dr. Bush with oncology as noted above. Diagnosed with prostate cancer stage IIa in 2015, completed radiation therapy in July 2015 and receivedLHRH agonist for treatment via Dr. Payne with Urology. Not currently on any treatment, remains on observation. ? Continue outpatient follow-up. DVT prophylaxis: Heparin subcu CODE STATUS: Full code, verified Expected disposition: TBD Total clinical time spent by myself addressing the patient's medical issues, reviewing all the data, and collaborating with patient's care team: 37 minutes. Charges/Coding Visit Charges Inpatient E&M: 90217 Subs Hosp L2 03/06/23 1710 <Electronically signed by Laura Bowman MD> Cosigner Signature (if applicable): CC: ~ Signed [facility] Work Phone: [phone]) 724-163810-24-2023 Discharge summary Author Laura Bowman [facility] March 06, 2023 2:14pm Note Date/Time March 06, 2023 2 :14pm [facility] Medical Records Department [address] [place] [address] Discharge Summary 03/06/23 1409 MR#: [id number] Acct: [id number] Name: JAIME ANN MEHREEN Rep #:[id number] : 1940 82 From: Laura Bowman MD PCP: RENETTA Justice Status:ADM IN Location: [place] [id number] Providers Date of Admission: 03/05/23 Date of Discharge: 03/06/23 Primary Care Physician: RENETTA Justice Reason For Visit: ORTHOSTATIC HYPOTENSION Diagnosis Discharge Diagnosis (1) Orthostatic hypotension: Status: Acute Code(s): I95.1 - Orthostatic hypotension (2) Acute kidney injury: Status: Acute Code(s): N17.9 - Acute kidney failure, unspecified (3) CLL (chronic lymphocytic leukemia): Status: Chronic Code(s): C91.10 - Chronic lymphocytic leukemia of B-cell type not having achieved remission (4) CKD (chronic kidney disease): Status: Chronic Code(s): N18.9 - Chronic kidney disease, unspecified (5) UTI (urinary tract infection): Status: Acute Code(s): N39.0 - Urinary tract infection, site not specified (6) Urinary retention: Status: Acute Code(s): R33.9 - Retention of urine, unspecified Plan 1. Dizziness, orthostatic hypotension- resolved 2. AUGUSTO on CKD III- improving, intrinsic injury secondary to urinary retention leading to bilateral hydronephrosis 3. staph aureus UTI 4. CLL, severe leukocytosis 5. 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 Multifactorial normocytic anemia 7. History of prostate cancer 8. Urinary retention Medications at Discharge Home Medications multivitamin (Daily Multiple tablet) 1 ea PO DAILY 03/15/15 cholecalciferol (vitamin D3) 25 mcg (1,000 unit) capsule (Vitamin D3) 1,000 unitPO DAILY 08/09/16 carvedilol 25 mg tablet 25 mg PO BID 08/24/16 glucosamine 750 [id number] no1 644 mg-C 30 mg-jesus 1 mg tablet (Osteo Bi-Flex Triple Strength) 1 ea PO DAILY 08/24/16 sacubitril 49 mg-valsartan 51 mg tablet (Entresto) 1 tab PO BID 08/24/22 zinc acetate 50 mg (zinc) capsule 50 mg PO DAILY 08/24/22 atorvastatin 10 mg tablet 10 mg PO DAILY 03/04/23 ciprofloxacin HCl 250 mg tablet (Cipro) 250 mg PO Q12H 7 days #14 tabs 03/06/23 polysaccharide iron complex 150 mg iron capsule (Ferrex) 150 mg PO DAILY #30 caps 03/06/23 tamsulosin 0.4 mg capsule 0.4 mg PO DAILY 30 days #30 caps 03/06/23 Hospital Course Summary of Care Provided Minutes Spent on Discharge: 35 Hospital Course: JAIME ANN, is a 82 M with past medical history of heart failure with recovered ejection fraction, prostate cancer s/p radiation, iron deficiency anemia and CLL who presented to [facility] ED on 03/04/2023 withworsening dizziness. He was found to have orthostatic hypotension and AUGUSTO with additional concern for UTI. He had his home blood pressure medications held, IVfluids, was found to have Staph aureus UTI and retroperitoneal ultrasound demonstrated bladder stone and bilateral hydroureter and hydronephrosis. Patient had postvoid with retention and straight cath x1 and repeat in the evening showed continued retention, Hood placement with an additional 450 cc out, patient improved with Hood placement. Unclear if he had UTI leading to worsening urinary retention or if urinary retention led to UTI. We will start tamsulosin and continue to hold nortriptyline as this may cause or contribute tohis urinary retention, of note does have history of prostate cancer, will DC with Hood and advise close follow-up with urology for further eval and management. Blood cultures ordered by infectious disease physician prior to discharge, discussed and patient does not need to remain inpatient if stable andthese can be followed peripherally. Discharge instructions as follows: -You will be discharged on 7 days of ciprofloxacin 250 mg every 12 hours -You will also be discharged on tamsulosin as well as iron supplementation -Please follow-up with urology upon discharge. Please call their office to schedule hospital follow-up appointment upon discharge. -Would recommend lab work (BMP) to check your kidney function in 2 to 3 days through your primary care physician's office. Please call their office upon discharge to obtain order for lab work. -Resume Entresto in 1 week -Would recommend against nortriptyline as it can contribute to orthostatic hypotension, urinary retention, confusion, and falls -Please call your primary care provider's office upon discharge to schedule a hospital follow up within 1 week. -For any concerning signs or symptoms please call 911 or proceed to the nearest emergency department Physical Exam Narrative General: Alert, oriented, no apparent distress HEENT: Atraumatic, normocephalic Eyes: Anicteric, normal conjunctiva, extraocular movements grossly intact Neck: Supple Respiratory: Clear to auscultation bilaterally, normal respiratory effort Cardiovascular: Regular rate and rhythm GI: Soft, nontender, nondistended Extremities: No edema Musculoskeletal: Moving all extremities but does have right wrist in brace Neuro: No overt focal neurological deficits Skin: Has bruise under right thumbnail Psych: Cooperative Weight / BMI Weight Weight: 79.3 kg Body Mass Index (BMI) 26.6 ABG / Lab / Microbiology Data 03/06/23 05:57 03/06/23 05:57 Laboratory: Laboratory Results - last 24 hr 03/04/23 12:55: Diff Path Review Reviewed 03/05/23 11:30: Diff Path Review Reviewed 03/06/23 05:57: WBC 53.7 H*, RBC 3.31 L, Hgb 8.5 L, Hct 28.3 L, MCV 85.5, MCH 25.7 L, MCHC 30.0 L, RDW Std Deviation 55.1 H, RDW Coeff of Willie 17.9 H, Plt Count 265, MPV 9.6, Immature Gran % (Auto) 0.400, Neut % (Auto) 9.6 L, Lymph % (Auto) 87.2 H, Campbell % (Auto) 1.9, Eos % (Auto) 0.7, Baso % (Auto) 0.2, Absolute Neuts (auto) 5.1, Absolute Lymphs (auto) 46.86 H, Nucleated RBC % 0, Differential Comment SCANNED, Diff Path Review Reviewed, Sodium 142, Potassium 3.4 L, Chloride 111 H, Carbon Dioxide 26.0, Anion Gap 5, BUN 41 H, Creatinine 1.95 H, Estim Creat Clear Calc 27.28, Est GFR (MDRD) Af Amer 42 L, Est GFR (MDRD) Non-Af 35 L, BUN/Creatinine Ratio 21.0 H, Glucose 109 H, Calcium 8.5 Microbiology: Microbiology 03/04/23 13:00 Urine, Clean Catch Urine Culture - Final Staphylococcus aureus D/C Instructions Discharge Diet: No restrictions Meaningful Use Info Meaningful Use Diagnoses (Choose all that apply): None applicable Discharge Plan Admission Admit Date/Time: 03/05/23 16:41 Primary Reason for Your Visit: Dizziness, urinary tract infection Attending Provider: Laura Bowman Primary Care Provider: Kenn Turcios NP Consulting Providers: Waylon Sanches Instructions Patient Instructions: Indwelling Urinary Catheter Dc, ED Fall Prevention Additional Instructions / Restrictions: DISCHARGE INSTRUCTIONS PLEASE READ *Please take this with you to your next doctors appointment* -You will be discharged on 7 days of ciprofloxacin 250 mg every 12 hours -You will also be discharged on tamsulosin as well as iron supplementation -Please follow-up with urology upon discharge. Please call their office to schedule hospital follow-up appointment upon discharge. -Would recommend lab work (BMP) to check your kidney function in 2 to 3 days through your primary care physician's office. Please call their office upon discharge to obtain order for lab work. -Resume Entresto in 1 week -Would recommend against nortriptyline as it can contribute to orthostatic hypotension, urinary retention, confusion, and falls -Please call your primary care provider's office upon discharge to schedule a hospital follow up within 1 week. -For any concerning signs or symptoms please call 911 or proceed to the nearest emergency department Discharge Orders/Prescriptions Prescriptions: New ciprofloxacin HCl [Cipro] 250 mg tablet 250 mg PO Q12H 7 Days Qty: 14 0RF Rx Instructions: Starting 03/07 polysaccharide iron complex [Ferrex 150] 150 mg iron Capsule 150 mg PO DAILY Qty: 30 0RF tamsulosin 0.4 mg Capsule 0.4 mg PO DAILY 30 Days Qty: 30 0RF Continued zinc acetate 50 mg (zinc) capsule 50 mg PO DAILY multivitamin [Daily Multiple] 1 EACH tablet 1 ea PO DAILY Patient Comments: SUPPLEMENT cholecalciferol (vitamin D3) [Vitamin D3] 1,000 UNIT capsule 1,000 unit PO DAILY carvedilol 25 MG tablet 25 mg PO BID Osteo Bi-Flex Triple Strength 1 EACH tablet 1 ea PO DAILY atorvastatin 10 mg tablet 10 mg PO DAILY Held Entresto 49-51 mg tablet 1 tab PO BID Hold Instructions: Resume on 03/15/23. Discontinued nortriptyline 50 mg capsule 50 mg PO BID Referrals / Follow Up: Janine Payne MD [Med Staff - Active Staff] - Within 1 Week (New urinary retention with Hood catheter placement) Kenn Turcios NP, [facility] [Primary Care Provider] - Within 1 Week Disposition Disposition (needs filled in before D/C Order can be placed): Home, Self Care Charges/Coding Visit Charges Inpatient E&M: 63830 Disch Hosp >30min 03/06/23 1414 <Electronically signed by Laura Bowman MD> Cosigner Signature (if applicable): CC: RENETTA Turcios; Dr. Laura Bowman MD~ Signed [facility] Work Phone: [phone]) 943-269810-24-2023 Discharge summary Author Laura Bowman [facility] March 06, 2023 2:09pm Note Date/Time March 06, 2023 2 :05pm [facility] Medical Records Department [address] [place] [address] Instructions for Home/Discharge Instructions 03/06/23 1403 MR#: [id number] Acct: [id number] Name: JAIME ANN Rep #:[id number] : 1940 82 From: Laura Bowman MD PCP: Kenn Turcios NP-C Status:ADM IN Discharge Instructions Diet Discharge Diet: No restrictions Activity Discharge Activity: Return to Normal Activity Follow Up Care Test Results: Test results from this visit will be discussed in further detail at your follow- up appointment, if applicable. Discharge Plan Admission Admit Date/Time: 03/05/23 16:41 Primary Reason for Your Visit: Dizziness, urinary tract infection Attending Provider: Laura Bowman Primary Care Provider: Kenn Turcios NP Consulting Providers: Waylon Sanches Instructions Patient Instructions: Indwelling Urinary Catheter Dc, ED Fall Prevention Additional Instructions / Restrictions: DISCHARGE INSTRUCTIONS PLEASE READ *Please take this with you to your next doctors appointment* -You will be discharged on 7 days of ciprofloxacin 250 mg every 12 hours -You will also be discharged on tamsulosin as well as iron supplementation -Please follow-up with urology upon discharge. Please call their office to schedule hospital follow-up appointment upon discharge. -Would recommend lab work (BMP) to check your kidney function in 2 to 3 days through your primary care physician's office. Please call their office upon discharge to obtain order for lab work. -Resume Entresto in 1 week -Would recommend against nortriptyline as it can contribute to orthostatic hypotension, urinary retention, confusion, and falls -Please call your primary care provider's office upon discharge to schedule a hospital follow up within 1 week. -For any concerning signs or symptoms please call 911 or proceed to the nearest emergency department Discharge Orders/Prescriptions Prescriptions: New ciprofloxacin HCl [Cipro] 250 mg tablet 250 mg PO Q12H 7 Days Qty: 14 0RF Rx Instructions: Starting 03/07 polysaccharide iron complex [Ferrex 150] 150 mg iron Capsule 150 mg PO DAILY Qty: 30 0RF tamsulosin 0.4 mg Capsule 0.4 mg PO DAILY 30 Days Qty: 30 0RF Continued zinc acetate 50 mg (zinc) capsule 50 mg PO DAILY multivitamin [Daily Multiple] 1 EACH tablet 1 ea PO DAILY Patient Comments: SUPPLEMENT cholecalciferol (vitamin D3) [Vitamin D3] 1,000 UNIT capsule 1,000 unit PO DAILY carvedilol 25 MG tablet 25 mg PO BID Osteo Bi-Flex Triple Strength 1 EACH tablet 1 ea PO DAILY atorvastatin 10 mg tablet 10 mg PO DAILY Held Entresto 49-51 mg tablet 1 tab PO BID Hold Instructions: Resume on 03/15/23. Discontinued nortriptyline 50 mg capsule 50 mg PO BID Referrals / Follow Up: Janine Payne MD [Med Staff - Active Staff] - Within 1 Week (New urinary retention with Hood catheter placement) Kenn Turcios NP, NP-C [Primary Care Provider] - Within 1 Week Disposition Disposition (needs filled in before D/C Order can be placed): Home, Self Care 03/06/23 1409<Electronically signed by Laura Bowman MD>Laura Bowman MD CC: RENETTA Turcios; Dr. Waylon Sanches, DO ~ Signed [facility] Work Phone: [phone]) 207-524610-24-2023 Discharge summary Author Yovani Crenshaw [facility] March 06, 2023 12:29am Note Date/Time March 04, 2023 1 :09pm [facility] Medical Records Department [address] [place] [id number] Emergency Department Summary 03/04/23 MR#: [id number] Acct: [id number] Name: JAIME ANN Rep #:[id number] : 1940 82 From: Yovani Farrell PCP: RENETTA Justice Status:ADM IN [facility] <RENETTA Waldrop - Last Filed: 03/04/23 14:13> History of Present Illness Chief Complaint: Dizziness Narrative Narrative: Patient is an 82-year-old male with history of nonischemic cardiomyopathy, vascular tachycardia, hypertension history of prostate cancer, CLL, history of brain bleed presents to the emergency department after multiple weeks of dizziness. Per the patient as well as the patient's , he has been having worsening dizziness over the last 3 to 4 weeks. He did have a mechanical fall few weeks ago and injuring his right wrist. Today he was at [employer], he had 2 episodes of dizziness, he did fall the second time. He denies any injury from today's fall. However secondary to the ongoing dizziness he is here for evaluation. Denies any weakness to his upper or lower extremities. Denies any difficulty speaking. Patient states the dizziness is more as unsteadiness, feeling that his balance is off. He denies any spinning sensation, denies any concern for lightheadedness. [facility] <RENETTA Waldrop - Last Filed: 03/04/23 14:13> [facility] Medical History (Updated 03/04/23 @ 14:[address] Waylon Sanches, DO) CKD (chronic kidney disease) Essential hypertension Fracture of unspecified phalanx of unspecified finger, initial encounter for closed fracture Iron deficiency anemia LBBB (left bundle branch block) Non-ischemic cardiomyopathy Pacemaker Peripheral neuropathy Restless leg syndrome Subdural hematoma Syncope and collapse Ventricular tachycardia Home Medications multivitamin (Daily Multiple tablet) 1 ea PO DAILY 03/15/15 [History Last Taken 03/04/23] cholecalciferol (vitamin D3) 25 mcg (1,000 unit) capsule (Vitamin D3) 1,000 unitPO DAILY 08/09/16 [History Last Taken 03/04/23] carvedilol 25 mg tablet 25 mg PO BID 08/24/16 [History Last Taken 03/04/23] glucosamine 750 [id number]-[id number] no1 644 mg-C 30 mg-jesus 1 mg tablet (Osteo Bi-Flex Triple Strength) 1 ea PO DAILY 08/24/16 [History Last Taken 03/04/23] sacubitril 49 mg-valsartan 51 mg tablet (Entresto) 1 tab PO BID 08/24/22 [History Last Taken 03/04/23] zinc acetate 50 mg (zinc) capsule 50 mg PO DAILY 08/24/22 [History Last Taken 03/04/23] atorvastatin 10 mg tablet 10 mg PO DAILY 03/04/23 [History Last Taken 03/03/23] nortriptyline 50 mg capsule 50 mg PO BID 03/04/23 [History Last Taken 03/04/23] Allergy/AdvReac Type Severity Reaction Status Date / Time lisinopril AdvReac Unknown cough Verified 08/24/22 15:46 Family History (Updated 08/24/22 @ 15:56 by Marely Parada) Mother CVA (cerebral vascular accident) Hypertension Diabetes Father Ischemic heart disease Diabetes Surgical History Cardiac 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 therapy defibrillator (MATTRESS STRIPPER-D) in place (~09/2015) History of arthroplasty of finger of left hand History of colonoscopy History of left heart catheterization (09/22/15) Splenic artery aneurysm Social History (Updated 08/24/22 @ 15:55 by Marely aPrada) Smoking Status: Never smoker alcohol intake: never substance use type: does not use caffeine: Yes Type: coffee Number of servings: 3 ROS <RENETTA Waldrop - Last Filed: 03/04/23 14:13> ROS ED ROS Narrative Constitutional: Negative for fever, chills, weight loss, weakness Eyes: Negative for vision loss, vision change, double vision ENT: Negative for any sore throat, ear pain, congestion Cardiovascular: Negative for any chest pain, tightness, palpitations Respiratory: Negative for any cough, sputum production, hemoptysis, dyspnea, dyspnea on exertion, orthopnea Gastrointestinal: Negative for any abdominal pain, nausea, vomiting, diarrhea, constipation, blood in stool, blood in vomit : Negative for any urinary frequency, dysuria, retention, blood in urine Muscle skeletal: Negative for any muscle joint pain, stiffness, myalgias, arthralgias, neck pain, back pain Neurological: Negative for any headache, syncope, numbness or tingling. Positive for feeling of unsteadiness, worse with standing up Skin: Negative for any rashes, lumps, itching, abrasions, lacerations Psychiatric: Negative for any depression, anxiety, stress, suicidal ideation, homicidal ideation Hematologic: Negative for any easy bruising, excessive bruising, easy bleeding Allergies: Negative for any eczema, hives, rash EXAM <RENETTA Waldrop - Last Filed: 03/04/23 14:13> Physical Exam Narrative Exam Narrative: Vital signs reviewed. Patient is no obvious distress. Alert and orient x4. Patient's feels asymptomatic at this time. HEET: Head normocephalic atraumatic, TMs clear bilaterally. Posterior pharynx is clear, moist mucous membranes. Nares clear bilaterally. Neck: Supple with no lymphadenopathy or tenderness. No signs of meningismus, negative jolt sign. Cardiac: Regular rate and rhythm no murmurs gallops or rubs, equal peripheral pulses bilaterally. Respiratory: Lungs clear to auscultation bilaterally. No chest tenderness. Abdomen: Soft, nontender, nondistended. No abdominal bruit or pulsatile masses. No hepatosplenomegaly Extremities: No peripheral edema, no signs of gross trauma or deformity. Activefull range of motion of all extremities. Neuro: Cranial nerves II through XII intact, no focal neurological deficits. NIH stroke score is 0. [place] was negative. Patient did have orthostaticvital signs completed, patient did have a 20 point drop to the systolic blood pressure however heart rate remained the same. Patient denied any dizziness or unsteadiness sensation. Skin: Clean dry and intact with no rash, purpura, petechiae, vesicles or pustules. Backs/flank: No CVA tenderness, no midline spinal tenderness, no deformity. Psych: Normal mood and affect. No SI, HI or acute psychosis. Const Vital Signs: 03/04/23 12:39 03/04/23 12:40 03/04/23 13:01 Temperature 97.6 F L Temperature Source Temporal Pulse Rate 68 Respiratory Rate 16 Respiratory Effort Normal Respiratory Depth Normal Respiratory Pattern Normal Blood Pressure 161/79 H Blood Pressure [Lying] Blood Pressure [Sitting (for 1 minute prior to obtaining)] Blood Pressure [Standing (for 1 minute prior to obtaining)] Blood Pressure Mean 106 Blood Pressure Mean [Lying] Blood Pressure Mean [Sitting (for 1 minute prior to obtaining)] Blood Pressure Mean [Standing (for 1 minute prior to obtaining)] Pulse Ox 99 Oxygen Delivery Method Room Air Room Air Room Air 03/04/23 13:20 03/04/23 13:21 Temperature Temperature Source Pulse Rate 74 Respiratory Rate 97 H Respiratory Effort Respiratory Depth Respiratory Pattern Blood Pressure 132/59 H Blood Pressure [Lying] 132/59 H Blood Pressure [Sitting (for 1 minute prior to obtaining)] 113/64 Blood Pressure [Standing (for 1 minute prior to obtaining)] 112/62 Blood Pressure Mean 83 Blood Pressure Mean [Lying] 83 Blood Pressure Mean [Sitting (for 1 minute prior to obtaining)] 80 Blood Pressure Mean [Standing (for 1 minute prior to obtaining)] 78 Pulse Ox Oxygen Delivery Method Room Air <Dr. Yovani Crenshaw, DO - Last Filed: 03/04/23 15:58> Physical Exam Const Vital Signs: 03/04/23 12:39 03/04/23 12:40 03/04/23 13:01 Temperature 97.6 F L Temperature Source Temporal Pulse Rate 68 Respiratory Rate 16 Respiratory Effort Normal Respiratory Depth Normal Respiratory Pattern Normal Blood Pressure 161/79 H Blood Pressure [Lying] Blood Pressure [Sitting (for 1 minute prior to obtaining)] Blood Pressure [Standing (for 1 minute prior to obtaining)] Blood Pressure Mean 106 Blood Pressure Mean [Lying] Blood Pressure Mean [Sitting (for 1 minute prior to obtaining)] Blood Pressure Mean [Standing (for 1 minute prior to obtaining)] Pulse Ox 99 Oxygen Delivery Method Room Air Room Air Room Air 03/04/23 13:20 03/04/23 13:21 Temperature Temperature Source Pulse Rate 74 Respiratory Rate 97 H Respiratory Effort Respiratory Depth Respiratory Pattern Blood Pressure 132/59 H Blood Pressure [Lying] 132/59 H Blood Pressure [Sitting (for 1 minute prior to obtaining)] 113/64 Blood Pressure [Standing (for 1 minute prior to obtaining)] 112/62 Blood Pressure Mean 83 Blood Pressure Mean [Lying] 83 Blood Pressure Mean [Sitting (for 1 minute prior to obtaining)] 80 Blood Pressure Mean [Standing (for 1 minute prior to obtaining)] 78 Pulse Ox Oxygen Delivery Method Room Air [facility] <RENETTA Waldrop - Last Filed: 03/04/23 14:13> [facility] Lab Data Labs: Laboratory Results - last 24 hr 03/04/23 03/04/23 12:55 13:00 WBC 52.1 H* RBC 3.52 L Hgb 9.0 L Hct 30.8 L MCV 87.5 MCH 25.6 L MCHC 29.2 L RDW Std Deviation 56.0 H RDW Coeff of Willie 18.0 H Plt Count 305 MPV 9.5 Immature Gran % (Auto) 0.200 Neut % (Auto) 7.6 L Lymph % (Auto) 89.0 H Campbell % (Auto) 2.3 Eos % (Auto) 0.5 Baso % (Auto) 0.4 Absolute Neuts (auto) 3.9 Absolute Lymphs (auto) 46.39 H Nucleated RBC % 0 Diff Path Review May foll Smudge Cells 2+ Sodium 142 Potassium 4.6 Chloride 110 H Carbon Dioxide 26.0 Anion Gap 6 BUN 62 H Creatinine 2.82 H Estim Creat Clear Calc 20.13 Est GFR (MDRD) Af Amer 28 L Est GFR (MDRD) Non-Af 23 L BUN/Creatinine Ratio 22.0 H Glucose 90 Calcium 9.2 Troponin I High Sens 12 B-Natriuretic Peptide 477.2 H Urine Color Yellow Urine Clarity Turbid Urine pH 6.0 Ur Specific [place] 1.010 Urine Protein 100 H Urine Glucose (UA) Normal Urine Ketones Negative Urine Occult Blood 50 H Urine Nitrite Positive H Urine Bilirubin Negative Urine Urobilinogen Normal Ur Leukocyte Esterase 500 H Urine RBC 0 SEEN Urine WBC >100 SEEN Ur Squamous Epith Cells 0 SEEN Urine Bacteria 0 SEEN Urine Mucus 0 SEEN Radiography Diagnostic Testing: Clinical Impression(s) from Imaging Studies Chest X-Ray 03/04/23 12:59 IMPRESSION: No radiographic evidence of acute cardiopulmonary disease. Electronically Signed: Ranyd Coffey MD at 13:53 EDT , Brain CT 03/04/23 13:00 IMPRESSION: 1. No acute intracranial process. 2. Chronic involutional changes of the brain. Electronically Signed: Randy Coffey MD at 14:05 EDT , Treatment and Re-Evaluation :: Patient is in no obvious distress, vital signs are stable. Presenting to the emergency department with complaints of dizziness, which she describes as unsteadiness, difficulty keeping his balance. Differential diagnosis includes benign positional peripheral vertigo, brain tumor, dehydration, orthostatic hypotension. Patient will receive a full work-up including cardiac markers, CBC, BMP. Patient will receive 500 cc of normal saline bolus, looking for any urinary tract infection, as well as a CT scan of the brain. Patient did have orthostatic vital signs, there was a 20 point drop in the systolic blood pressure from laying to sitting however patient did not have an elevated heart rate. Patient was also asymptomatic during the orthostatic vital signs. Patient laboratory values showed a leukocytosis white blood count of 52.1, this is secondary to his CLL, he is aware that he does have elevated white blood count. Patient since 2019 has been over 20. Patient is slightly anemic with a hemoglobin 9.0, this is slightly down from his baseline of 10-11. Patient's chemistries show acute renal sufficiency with a BUN of 62 creatinine 2.8 and EGFR of 23. Patient 1 year ago showed a creatinine of 1.53 this was his baseline. Patient's proBNP was elevated at 477. Urinalysis was positive for infection with leukocytosis, nitrates, leukocyte Estrace. This was sent for culture. Patient was started IV Rocephin. He was given 500 cc of normal saline. Patient's chest x-ray, CT of the brain was grossly unremarkable. At this time, I do believe the patient needs to be admitted to the hospital, patient has acute kidney injury, dehydration, UTI. This could be likely why thepatient has been having difficulty with balance. There is no evidence of any stroke. No evidence of any central vertigo. Patient will be admitted, hospitalist accepts. <Dr. Yovani Crenshaw, DO - Last Filed: 03/04/23 15:58> [facility] Narrative Medical decision making narrative: I have personally performed a face to face assessment of the patient and have reviewed the ALEX Note. I performed a substantive portion of the visit including all aspects of the following. My ny findings include: History: Patient presents with dizziness that has been getting worse over the past several days. Patient states he feels like he is off balance. Patient states it is worse when he stands up from a seated position. Patient also thinks it may be worse when he extends his neck. Patient denies any hearing changes. Patient denies any tinnitus. Patient denies any nausea or vomiting. Patient denies any headaches. Exam: Vital signs are stable. Patient is afebrile. Patient is in no acute distress. Oral mucosa is pink and moist. Neck is supple. Trachea is midline. There is no JVD. Heart was regular rate and rhythm. Lungs are clear and equal bilaterally. Abdomen is soft. Bowel sounds are normal. There is no tenderness. Cranial nerves II through XII are intact. There are no focal motoror sensory deficits noted. Pupils are equal, round, and reactive to light bilaterally. Extraocular muscles are intact. There is no nystagmus noted. There is small some conjunctival hemorrhages on the right. Medical Decision Making: Differential diagnosis includes vertigo, labyrinthitis,stroke, intracranial bleeding, cardiac dysrhythmia, cardiac ischemia, and urinary tract infection. CT scan of the brain will be obtained to assess for intracranial bleeding. CBC will be obtained to assess for leukocytosis and anemia. Basic metabolic profile will be obtained to assess for renal function and electrolyte abnormalities. BNP will be obtained to assess for congestive heart failure. High-sensitivity troponin will be obtained to assess for cardiacischemia. 2-hour repeat high-sensitivity troponin will be obtained to assess for ongoing cardiac ischemia. Urinalysis will be obtained to assess for urinarytract infection. Chest x-ray will be obtained to assess for pneumonia. EKG will be obtained to assess for cardiac dysrhythmia and cardiac ischemia. EKG was obtained. It showed a paced rhythm with a left bundle branch block pattern. There are no acute ST or T wave changes noted. CBC was reviewed. White blood cell count was elevated at 52.1. There is a mild anemia with a hemoglobin of 9.0 and hematocrit 30.8. Platelets were normal. Basic metabolic profile was reviewed. BUN was 62 and creatinine was 2.82. This was increased from previous results. High-sensitivity troponin was reviewed and was normal at12. BNP was reviewed and was elevated at 477.2. Urinalysis was reviewed. There were positive nitrites. Leukocyte esterase was 500. There were greater than 100 white blood cells noted. Patient was started on Rocephin. Patient wasgiven IV fluids. Case was discussed with the hospitalist. She will admit the patient to her service. Patient understood and was agreeable with the plan. All questions were answered. Lab Data Labs: Laboratory Results - last 24 hr 03/04/23 03/04/23 12:55 13:00 WBC 52.1 H* RBC 3.52 L Hgb 9.0 L Hct 30.8 L MCV 87.5 MCH 25.6 L MCHC 29.2 L RDW Std Deviation 56.0 H RDW Coeff of Willie 18.0 H Plt Count 305 MPV 9.5 Immature Gran % (Auto) 0.200 Neut % (Auto) 7.6 L Lymph % (Auto) 89.0 H Campbell % (Auto) 2.3 Eos % (Auto) 0.5 Baso % (Auto) 0.4 Absolute Neuts (auto) 3.9 Absolute Lymphs (auto) 46.39 H Nucleated RBC % 0 [address] Review May foll Smudge Cells 2+ Sodium 142 Potassium 4.6 Chloride 110 H Carbon Dioxide 26.0 Anion Gap 6 BUN 62 H Creatinine 2.82 H Estim Creat Clear Calc 20.13 Est GFR (MDRD) Af Amer 28 L Est GFR (MDRD) Non-Af 23 L BUN/Creatinine Ratio 22.0 H Glucose 90 Calcium 9.2 Troponin I High Sens 12 B-Natriuretic Peptide 477.2 H Urine Color Yellow Urine Clarity Turbid Urine pH 6.0 Ur Specific [place] 1.010 Urine Protein 100 H Urine Glucose (UA) Normal Urine Ketones Negative Urine Occult Blood 50 H Urine Nitrite Positive H Urine Bilirubin Negative Urine Urobilinogen Normal Ur Leukocyte Esterase 500 H Urine RBC 0 SEEN Urine WBC >100 SEEN Ur Squamous Epith Cells 0 SEEN Urine Bacteria 0 SEEN Urine Mucus 0 SEEN Radiography Diagnostic Testing: Clinical Impression(s) from Imaging Studies Chest X-Ray 03/04/23 12:59 IMPRESSION: No radiographic evidence of acute cardiopulmonary disease. Electronically Signed: Randy Coffey MD at 13:53 EDT , Brain CT 03/04/23 13:00 IMPRESSION: 1. No acute intracranial process. 2. Chronic involutional changes of the brain. Electronically Signed: Randy Coffey MD at 14:05 EDT , Management Discussion w/another healthcare provider: Hospitalist Discharge Plan Dx/Rx/DC Orders Clinical Impression: Acute kidney injury, UTI (urinary tract infection), Dizziness, Anemia, History of chronic lymphocytic leukemia, Fall Disposition Disposition: [facility] Discharge Date/Time: 03/04/23 15:03 What to do if you have Problems For any increased pain, shortness of breath, bleeding, nausea or vomiting, chestpain, or any unexpected problems, contact your Primary Care Provider. Call [facility] ([phone]) or report to the closest Emergency Room. Call 911 if necessary. 03/06/23 0029 <Electronically signed by Yovani Crenshaw DO> Cosigner Signature (if applicable): 03/05/232110 <Electronically signed by Manolo JACKSON> CC: RENETTA Turcios ~ Signed [facility] Work Phone: 1(668) 249-382410-23-2023 Consult note Author Laura Bowman [facility] March 05, 2023 4:24pm Note Date/Time March 05, 2023 1 1:45am [facility] Medical Records Department [address] [place] [address] Pharmacokinetic/Renal -Consult 03/05/23 1145 MR#: [id number] Acct: [id number] Name: JAIME ANN Rep #:[id number] : 1940 82 From: Je Moralez PCP: RENETTA Justice Status:ADM STEVEN Y Location: [place] [address] Consult Antibiotic Management Pharmacy has been consulted to manage selected antiobiotic: Vancomycin Type of Intervention Type of Consult: New start Suspected Infection Suspected Infection: Other (SA URINARY TRACT INFECTION) Prior Doses of Antibiotics Prior Doses of Antibiotics Received/Current Regimen: Vancomycin 2000 mg loading dose given 03/05/23 @ 1131 Microbiology Microbiology: Microbiology 03/04/23 13:00 Urine, Clean Catch Urine Culture - Preliminary Staphylococcus aureus Dosing Weight Weight used for dosin kg Estimated Creatinine Clearance Estimated Creatinine Clearance: ~20 Goal Trough Goal Trough: 15-20 mcg/mL Pharmacy Plan for Drug Dosing Pharmacy Plan for Drug Dosing: Vancomycin 2000 mg IV x 1 loading dose followed by Vancomycin 750 mg IV Q24H starting 03/06/23 @ 1100 with a trough prior to the 3rd dose. Pharmacy Service will continue to monitor and adjust dosing as required. Follow-Up Labs Follow-Up Labs: Trough: Vancomycin Date/Time Labs Ordered Labs to be done on [date and time ordered]: 03/07/23 @ 1030 03/05/23 1146 <Electronically signed by Je Sanchez r> Date _ Je Moralez 03/05/23 1624 <Electronically signed by Laura Bowman MD> Cosigner Signature (if applicable): Date Laura Bowman MD CC: ~ Signed [facility] Work Phone: 1(972) 889-605210-23-2023 Progress note Author Laura Bowman [facility] March 05, 2023 2:55pm Note Date/Time March 05, 2023 1 0:21am [facility] Medical Records Department [address] [place] [address] Progress Note - Hospitalist 03/05/23 1016 MR#: [id number] Acct: [id number] Name: JAIME ANN Rep #:[id number] 1940 82 From: Laura Bowman MD PCP: PO JusticeC Status:ADM STEVEN Location: [place] [address] Reason for Visit Reason for Visit: Diagnoses Orthostatic hypotension (03/04/23) Subjective Subjective Patient feels he is urinating well, does feel slightly better today versus yesterday Objective Data Objective Data Vital Signs: Vital Signs Temp Pulse Resp BP Pulse Ox O2 Del Method 98.1 F 75 12 148/63 H 97 Room Air 03/05/23 03:10 03/05/23 03:10 03/05/23 03:10 03/05/23 03:10 03/05/23 07:55 03/05/23 07:55 Oxygen Delivery Method Room Air Weight: 78 kg Body Mass Index (BMI) 26.1 Intake & Output: Intake and Output for Last 24 Hours 03/03/23 03/04/23 03/05/23 23:59 23:59 23:59 Intake Total 750 / 1550 2993.75 / 2993.75 Balance 750 / 1550 2993.75 / 2993.75 Lab / Micro Data 03/05/23 11:30 03/05/23 11:35 Labs: Laboratory Results - last 24 hr 03/04/23 12:55: WBC 52.1 H*, RBC 3.52 L, Hgb 9.0 L, Hct 30.8 L, MCV 87.5, MCH 25.6 L, MCHC 29.2 L, RDW Std Deviation 56.0 H, RDW Coeff of Willie 18.0 H, Plt Count 305, MPV 9.5, Immature Gran % (Auto) 0.200, Neut % (Auto) 7.6 L, Lymph % (Auto) 89.0 H, Campbell % (Auto) 2.3, Eos % (Auto) 0.5, Baso % (Auto) 0.4, Absolute Neuts (auto) 3.9, Absolute Lymphs (auto) 46.39 H, Nucleated RBC % 0, Diff Path Review May foll, Smudge Cells 2+, Sodium 142, Potassium 4.6, Chloride 110 H, Carbon Dioxide 26.0, Anion Gap 6, BUN 62 H, Creatinine 2.82 H, Estim Creat ClearCalc 20.13, Est GFR (MDRD) Af Amer 28 L, Est GFR (MDRD) Non-Af 23 L, BUN/Creatinine Ratio 22.0 H, Glucose 90, Calcium 9.2, Troponin I High Sens 12, B-Natriuretic Peptide 477.2 H 03/04/23 13:00: Urine Color Yellow, Urine Clarity Turbid, Urine pH 6.0, Ur Specific [place] 1.010, Urine Protein 100 H, Urine Glucose (UA) Normal, Urine Ketones Negative, Urine Occult Blood 50 H, Urine Nitrite Positive H, Urine Bilirubin Negative, Urine Urobilinogen Normal, Ur Leukocyte Esterase 500 H, Urine RBC 0 SEEN, Urine WBC >100 SEEN, Ur Squamous Epith Cells 0 SEEN, Urine Bacteria 0 SEEN, Urine Mucus 0 SEEN 03/04/23 15:48: Iron 18 L, TIBC 263, Iron Saturation 6.8 L, Ferritin 92, Troponin I High Sens 12, Vitamin B12 > 2000 H, Folate 22.60 Micro: Microbiology 03/04/23 13:00 Urine, Clean Catch Urine Culture - Preliminary Staphylococcus aureus Radiography Diagnostic Testing: Radiology Impression Chest X-Ray 03/04/23 12:59 IMPRESSION: No radiographic evidence of acute cardiopulmonary disease. Electronically Signed: Randy Coffey MD at 13:53 EDT , Brain CT 03/04/23 13:00 IMPRESSION: 1. No acute intracranial process. 2. Chronic involutional changes of the brain. Electronically Signed: Randy Coffey MD at 14:05 EDT , Renal Ultrasound 03/05/23 09:00 IMPRESSION: Moderate to severe degree of bilateral hydronephrosis and hydroureter. Right renal cyst. Bladder calculus. Electronically Signed: Gerson Watkins MD at 10:12 EDT , Physical Exam Narrative General: Alert, oriented, no apparent distress HEENT: Atraumatic, normocephalic Eyes: Anicteric, normal conjunctiva, extraocular movements grossly intact Neck: Supple Respiratory: Clear to auscultation bilaterally, normal respiratory effort Cardiovascular: Regular rate and rhythm GI: Soft, nontender, nondistended Extremities: No edema Musculoskeletal: Moving all extremities but does have right wrist in brace Neuro: No overt focal neurological deficits Skin: Has bruise under right thumbnail Psych: Cooperative Assessment & Plan Assessment/Plan (1) Orthostatic hypotension: PLAN: Plan Patient is an 82-year-old male with past medical history of heart failure with recovered ejection fraction, prostate cancer s/p radiation, iron deficiency anemia and CLL who presented to [facility] ED on 03/04/2023 withworsening dizziness. 1. Dizziness, orthostatic hypotension Positive orthostatic vital signs in the ED, blood pressure dropped about 20 points with standing. Orthostatic hypotension seems like most likely cause of his dizziness. May be secondary to overmedication. Does not seem consistent with BPPV or vertigo. Very low concern for intracranial etiology. CT brain without contrast in ED showed no acute intracranial process, chronic evolution of changes of the brain. Patient notably is on Coreg and Entresto for heart failure as noted below. ? Admit under observation status to PCU. We will give low-dose maintenance IV fluids through tomorrow morning. Recheck orthostatic vitals tomorrow. Hold home Coreg and Entresto for now, can likely restart Coreg tomorrow but would consider holding Entresto on discharge and can follow-up outpatient with cardiology to consider resuming at that time if needed. -03/05: Likely exacerbated by underlying infection, blood pressure support, PT evaluation, repeat orthostatic vital signs 2. AUGUSTO on CKD III Presumed prerenal AUGUSTO secondary to hypovolemia from possible overmedication as noted above. BUN 62, creatinine 2.82 on admit. Baseline creatinine appears to be around 1.3-1.6. ? Follow-up BMP tomorrow after IV fluids as noted above. Urine sodium and creatinine ordered to calculate FeNa. Lower concern for postobstructive etiology as patient reports good urine output, but will order renal/bladder ultrasound for completeness sake, especially given his history of prostate cancer as noted below. -03/05: Improved slightly from yesterday, Fena 2.3% and urine sodium 57, appearsto be intrinsic in nature, especially given history of heart failure we will proceed cautiously with fluids, will consult nephrology. Patient with moderate to severe bilateral hydronephrosis and hydroureter with a bladder calculus. We will get postvoid to see if patient has any retention. No previous imaging available 3. Concern for UTI- found to have staph aureus UTI UA on admit with 500 leukocyte esterase, positive nitrates, greater than 100 WBCs, however no bacteria seen. Given 1 dose of IV ceftriaxone empirically in the ED. ? We will continue empiric ceftriaxone for now. Urine culture pending. -03/05: Growing Staph aureus in urine, Rocephin switched to vancomycin while awaiting sensitivities 4. CLL, severe leukocytosis Follows outpatient with Dr. Bush with Oncology, last known office visit was in February 2022. Diagnosed with CLL back in 2003, has not required therapy to thispoint. WBC count has consistently been in the 40s since 2019. WBC count of 52 on admit. May be slightly elevated secondary to UTI, otherwise likely close to patient's baseline. Afebrile on admit. ? Monitor CBC daily. Outpatient follow-up with oncology. -03/05: Continue to monitor white blood cell count 5. Heart failure with recovered ejection fraction Patient had echo from 2016 that showed an EF of 20% at that time. Has followed with [facility] cardiology since then. On review of [facility] records, patient had an echo in 09/2022 that showed an EF of 48%. He is on home Coreg 25 mg twice daily and Entresto 49-51 mg twice daily. Patient denies any recent medication changes that he is aware of. ? Holding home Coreg and Entresto for now as noted above. Given the patient's ejection fraction has recovered fairly well, may be reasonable to hold Entresto on discharge and monitor BP outpatient. Can follow-up with [facility] cardiology and determine if patient continues to need Entresto going forward. Can likely restart Coreg on discharge. -03/05: Daily weights, I's and O's, holding Entresto 6. Multifactorial normocytic anemia Previously diagnosed with iron deficiency anemia back in February 2021. Unclear if patient was taking iron supplementation for this. Hemoglobin 9.0 on admit, baseline hemoglobin appears to be around 10-11. No signs of bleeding. ? Monitor CBC daily. Repeat iron studies ordered. Vitamin B12 and folate ordered as well. -03/05: Ferritin and 90s but low iron level and saturation, suspect component ofiron depletion but also chronic disease likely secondary to CKD. Folate within normal limits and B12 actually elevated, continue to monitor, no active blood loss appreciated 7. History of prostate cancer Follows with Dr. Bush with oncology as noted above. Diagnosed with prostate cancer stage IIa in 2015, completed radiation therapy in July 2015 and receivedLHRH agonist for treatment via Dr. Payne with Urology. Not currently on any treatment, remains on observation. ? Continue outpatient follow-up. DVT prophylaxis: Heparin subcu CODE STATUS: Full code, verified Expected disposition: TBD Total clinical time spent by myself addressing the patient's medical issues, reviewing all the data, and collaborating with patient's care team: 37 minutes. Charges/Coding Visit Charges Inpatient E&M: 97530 Subs Hosp L2 03/05/23 2444 <Electronically signed by Laura Bowman MD> Cosigner Signature (if applicable): CC: ~ Signed [facility] Work Phone: 1(891) 305-707410-22-2023 History and physical note Author Waylon Sanches [facility] March 04, 2023 4:21pm Note Date/Time March 04, 2023 2 :31pm [facility] Medical Records Department [address] [place] [address] H&P Exam - Hospitalist 03/04/23 1429 MR#: [id number] Acct: [id number] Name: JAIME ANN Rep #:[id number] : [id number] 82 From: Waylon emerson DO PCP: Kenn Turcios [facility] Status:ADM STEVEN Location: [place] [address] HPI - General General Date of Admission: 03/04/23 Date of Service: 03/04/23 Chief Complaint: Orthostatic hypotension HPI Narrative JAIME ANN, is a 82 M with past medical history of heart failure with recovered ejection fraction, prostate cancer s/p radiation, iron deficiency anemia and CLL who presented to [facility] ED on 03/04/2023 withworsening dizziness. Patient seen at bedside in the ED, and son present. Patient sitting comfortably in bed, conversing normally, no acute distress. Patient states that he has felt dizzy specifically when going from sitting to standing over the past several weeks. Has history of heart failure and is on Coreg and Entresto, denies any recent changes to his medications that he is aware of. Patient denies any episodes of syncope or falls. Patient denies any specific vision changes. Denies any weakness, numbness or tingling in his extremities. Patient notes that he has been urinating quite frequently recentlyand often does not have very good p.o. intake at home. Patient denies any dysuria or burning with urination recently. He denies any fevers or chills currently. Denies any other acute concerns this morning. Vitals in ED notable for normotensive to mildly hypertensive BP, otherwise unremarkable. Notably did have orthostatic hypotension with 20 point drop of BPwith standing in the ED. Labs notable for WBC count 52 (close to baseline), hemoglobin 9.0, platelets 305, sodium 142, potassium 4.6, chloride 110, bicarb 26, BUN 62, creatinine 2.82, BNP 477, troponin normal. UA showed positive nitrites, 500 leukocyte esterase, greater than 100 WBCs, however 0 bacteria. Chest x-ray nonacute. CT brain without contrast showed no acute intracranial process, chronic involutional changes of the brain. [facility] Medical History (Updated 03/04/23 @ 14:[address] Waylon Sanches, DO) CKD (chronic kidney disease) Essential hypertension Fracture of unspecified phalanx of unspecified finger, initial encounter for closed fracture Iron deficiency anemia LBBB (left bundle branch block) Non-ischemic cardiomyopathy Pacemaker Peripheral neuropathy Restless leg syndrome Subdural hematoma Syncope and collapse Ventricular tachycardia Home Medications multivitamin (Daily Multiple tablet) 1 ea PO DAILY 03/15/15 [History Last Taken 03/04/23] cholecalciferol (vitamin D3) 25 mcg (1,000 unit) capsule (Vitamin D3) 1,000 unitPO DAILY 08/09/16 [History Last Taken 03/04/23] carvedilol 25 mg tablet 25 mg PO BID 08/24/16 [History Last Taken 03/04/23] glucosamine 750 [id number] no1 644 mg-C 30 mg-jesus 1 mg tablet (Osteo Bi-Flex Triple Strength) 1 ea PO DAILY 08/24/16 [History Last Taken 03/04/23] sacubitril 49 mg-valsartan 51 mg tablet (Entresto) 1 tab PO BID 08/24/22 [History Last Taken 03/04/23] zinc acetate 50 mg (zinc) capsule 50 mg PO DAILY 08/24/22 [History Last Taken 03/04/23] atorvastatin 10 mg tablet 10 mg PO DAILY 03/04/23 [History Last Taken 03/03/23] nortriptyline 50 mg capsule 50 mg PO BID 03/04/23 [History Last Taken 03/04/23] Allergy/AdvReac Type Severity Reaction Status Date / Time lisinopril AdvReac Unknown cough Verified 08/24/22 15:46 Family History (Updated 08/24/22 @ 15:56 by Marely Parada) Mother CVA (cerebral vascular accident) Hypertension Diabetes Father Ischemic heart disease Diabetes Surgical History Cardiac 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 therapy defibrillator (MATTRESS STRIPPER-D) in place (~09/2015) History of arthroplasty of finger of left hand History of colonoscopy History of left heart catheterization (09/22/15) Splenic artery aneurysm Social History (Updated 08/24/22 @ 15:55 by Marely Parada) Smoking Status: Never smoker alcohol intake: never substance use type: does not use caffeine: Yes Type: coffee Number of servings: 3 ROS Constitutional Constitutional: Denies change in weight, chills, fatigue, fever(s) or weakness Eyes Eyes: Denies change in vision Cardiovascular Cardiovascular: Reports lightheadedness; Denies chest pain, edema, orthopnea, palpitations, rapid heart rate or syncope Respiratory/Chest Respiratory/Chest: Denies cough or shortness of breath at rest Gastrointestinal Gastrointestinal: Denies abdominal pain, constipation, diarrhea, nausea or vomiting Genitourinary Genitourinary: Denies burning urination or dysuria Neurologic Neurologic: Reports dizziness; Denies abnormal gait, abnormal speech, confusion,focal weakness, headache(s), numbness, paresthesias, syncope or tingling Vital Signs Vital Signs Vital Signs: 03/04/23 12:39 03/04/23 12:40 03/04/23 13:01 Temperature 97.6 F L Temperature Source Temporal Pulse Rate 68 Respiratory Rate 16 Respiratory Effort Normal Respiratory Depth Normal Respiratory Pattern Normal Blood Pressure 161/79 H Blood Pressure [Lying] Blood Pressure [Sitting (for 1 minute prior to obtaining)] Blood Pressure [Standing (for 1 minute prior to obtaining)] Blood Pressure Mean 106 Blood Pressure Mean [Lying] Blood Pressure Mean [Sitting (for 1 minute prior to obtaining)] Blood Pressure Mean [Standing (for 1 minute prior to obtaining)] Pulse Ox 99 Oxygen Delivery Method Room Air Room Air Room Air 03/04/23 13:20 03/04/23 13:21 Temperature Temperature Source Pulse Rate 74 Respiratory Rate 97 H Respiratory Effort Respiratory Depth Respiratory Pattern Blood Pressure 132/59 H Blood Pressure [Lying] 132/59 H Blood Pressure [Sitting (for 1 minute prior to obtaining)] 113/64 Blood Pressure [Standing (for 1 minute prior to obtaining)] 112/62 Blood Pressure Mean 83 Blood Pressure Mean [Lying] 83 Blood Pressure Mean [Sitting (for 1 minute prior to obtaining)] 80 Blood Pressure Mean [Standing (for 1 minute prior to obtaining)] 78 Pulse Ox Oxygen Delivery Method Room Air Weight Weight: 79.197 kg Body Mass Index (BMI) 25.0 Physical Exam Const alert, oriented x3, no apparent distress and average body habitus Constitutional Narrative: Pleasant elderly female, sitting comfortably in bed, conversing normally, no acute distress. General Appearance: cooperative and comfortable HEENT normocephalic, head/scalp atraumatic, hearing grossly normal bilaterally, nasal mucous membranes and turbinates normal and moist oral mucous membranes Eyes PERRL, EOMs intact bilaterally and conjunctivae normal Neck full ROM, no lymphadenopathy and supple Lymph Lymphatic: no lymphadenopathy noted Chest inspection of chest normal Resp normal respiratory effort, normal air movement, no use of accessory muscles and clear to auscultation bilaterally Cardio regular rate, regular rhythm, no murmurs and peripheral pulses 2+ throughout GI normal to inspection, nondistended, normoactive bowel sounds, soft to palpation,non-tender and non-distended Back/Spine normal ROM Extremity normal to inspection, full ROM and no pedal edema Skin no rashes or lesions noted Psych mental status grossly normal Results Lab / Micro Data 03/04/23 12:55 03/04/23 12:55 Labs: Laboratory Results - last 24 hr 03/04/23 12:55: WBC 52.1 H*, RBC 3.52 L, Hgb 9.0 L, Hct 30.8 L, MCV 87.5, MCH 25.6 L, MCHC 29.2 L, RDW Std Deviation 56.0 H, RDW Coeff of Willie 18.0 H, Plt Count 305, MPV 9.5, Immature Gran % (Auto) 0.200, Neut % (Auto) 7.6 L, Lymph % (Auto) 89.0 H, Campbell % (Auto) 2.3, Eos % (Auto) 0.5, Baso % (Auto) 0.4, Absolute Neuts (auto) 3.9, Absolute Lymphs (auto) 46.39 H, Nucleated RBC % 0, Diff Path Review May foll, Smudge Cells 2+, Sodium 142, Potassium 4.6, Chloride 110 H, Carbon Dioxide 26.0, Anion Gap 6, BUN 62 H, Creatinine 2.82 H, Estim Creat ClearCalc 20.13, Est GFR (MDRD) Af Amer 28 L, Est GFR (MDRD) Non-Af 23 L, BUN/Creatinine Ratio 22.0 H, Glucose 90, Calcium 9.2, Troponin I High Sens 12, B-Natriuretic Peptide 477.2 H 03/04/23 13:00: Urine Color Yellow, Urine Clarity Turbid, Urine pH 6.0, Ur Specific [place] 1.010, Urine Protein 100 H, Urine Glucose (UA) Normal, Urine Ketones Negative, Urine Occult Blood 50 H, Urine Nitrite Positive H, Urine Bilirubin Negative, Urine Urobilinogen Normal, Ur Leukocyte Esterase 500 H, Urine RBC 0 SEEN, Urine WBC >100 SEEN, Ur Squamous Epith Cells 0 SEEN, Urine Bacteria 0 SEEN, Urine Mucus 0 SEEN Radiology Impression Chest X-Ray 03/04/23 12:59 IMPRESSION: No radiographic evidence of acute cardiopulmonary disease. Electronically Signed: Randy Coffey MD at 13:53 EDT , Brain CT 03/04/23 13:00 IMPRESSION: 1. No acute intracranial process. 2. Chronic involutional changes of the brain. Electronically Signed: Randy Coffey MD at 14:05 EDT , Assessment & Plan Assessment/Plan (1) Orthostatic hypotension: PLAN: Plan Patient is an 82-year-old male with past medical history of heart failure with recovered ejection fraction, prostate cancer s/p radiation, iron deficiency anemia and CLL who presented to [facility] ED on 03/04/2023 withworsening dizziness. 1. Dizziness, orthostatic hypotension Positive orthostatic vital signs in the ED, blood pressure dropped about 20 points with standing. Orthostatic hypotension seems like most likely cause of his dizziness. May be secondary to overmedication. Does not seem consistent with BPPV or vertigo. Very low concern for intracranial etiology. CT brain without contrast in ED showed no acute intracranial process, chronic evolution of changes of the brain. Patient notably is on Coreg and Entresto for heart failure as noted below. ? Admit under observation status to PCU. We will give low-dose maintenance IV fluids through tomorrow morning. Recheck orthopedic vitals tomorrow. Hold homeCoreg and Entresto for now, can likely restart Coreg tomorrow but would considerholding Entresto on discharge and can follow-up outpatient with cardiology to consider resuming at that time if needed. 2. AUGUSTO on CKD III Presumed prerenal AUGUSTO secondary to hypovolemia from possible overmedication as noted above. BUN 62, creatinine 2.82 on admit. Baseline creatinine appears to be around 1.3-1.6. ? Follow-up BMP tomorrow after IV fluids as noted above. Urine sodium and creatinine ordered to calculate FeNa. Lower concern for postobstructive etiology as patient reports good urine output, but will order renal/bladder ultrasound for completeness sake, especially given his history of prostate cancer asnoted below. 3. Concern for UTI UA on admit with 500 leukocyte esterase, positive nitrates, greater than 100 WBCs, however no bacteria seen. Given 1 dose of IV ceftriaxone empirically in the ED. ? We will continue empiric ceftriaxone for now. Urine culture pending. 4. CLL, severe leukocytosis Follows outpatient with Dr. Bush with Oncology, last known office visit was in February 2022. Diagnosed with CLL back in 2003, has not required therapy to thispoint. WBC count has consistently been in the 40s since 2019. WBC count of 52 on admit. May be slightly elevated secondary to UTI, otherwise likely close to patient's baseline. Afebrile on admit. ? Monitor CBC daily. Outpatient follow-up with oncology. 5. Heart failure with recovered ejection fraction Patient had echo from 2015 that showed an EF of 20% at that time. Has followed with [facility] cardiology since then. On review [facility], patient had an echo in 09/2022 that showed an EF of 48%. He is on home Coreg 25 mg twice daily and Entresto 49-51 mg twice daily. Patient denies any recent medication changes that he is aware of. ? Holding home Coreg and Entresto for now as noted above. Given the patient's ejection fraction has recovered fairly well, may be reasonable to hold Entresto on discharge and monitor BP outpatient. Can follow-up with [facility] cardiology and determine if patient continues to need Entresto going forward. Can likely restart Coreg on discharge. 6. Iron deficiency anemia Previously diagnosed with iron deficiency anemia back in February 2021. Unclear if patient was taking iron supplementation for this. Hemoglobin 9.0 on admit, baseline hemoglobin appears to be around 10-11. No signs of bleeding. ? Monitor CBC daily. Repeat iron studies ordered. Vitamin B12 and folate ordered as well. 7. History of prostate cancer Follows with Dr. Bush with oncology as noted above. Diagnosed with prostate cancer stage IIa in 2015, completed radiation therapy in July 2015 and receivedLHRH agonist for treatment via Dr. Payne with Urology. Not currently on any treatment, remains on observation. ? Continue outpatient follow-up. DVT prophylaxis: Heparin subcu CODE STATUS: Full code, verified Expected disposition: TBD Total clinical time spent by myself addressing the patient's medical issues, reviewing all the data, and collaborating with patient's care team: 55 minutes. Charges/Coding Visit Charges Inpatient E&M: 09529 Init Hosp L2 03/04/23 1621 <Electronically signed by Waylon Sanches DO> Cosigner Signature (if applicable): CC: RENETTA Turcios; Dr. Waylon Sanches DO~ Signed [facility] Work Phone: [phone]) [phone] NoteHNO ID: [id number] Author: Lamine Katz MD Service: ? Author Type: Physician Type: Progress Notes Filed: 01/18/2023 3:18 PM Note Text: EP STAFF NOTE: Please note: This note has been produced using speech recognition software and may contain errors related to that system including grammar, punctuation, spelling, gender and words and phrases that may be inappropriate Consultation initially requested by Dr. Horne 2018 for an opinion regarding management of MATTRESS STRIPPER device I have reviewed the above information and examined the patient and confirm the above with the following additions/modifications. PE: Vitals: BP 122/68 Pulse 64 Ht 175.3 cm (5' 9") Wt 79.4 kg (175 lb) SpO2 97% BMI 25.84 kg/m? Neck: no JVD. Lungs: Unlabored Heart: RRR Extremities: No peripheral edema bilaterally. DEVICE CHECK: CHB, no RV intrinsic at VVI 30 Today: PRESENTS FOR: Appt with Dr. Kazt PRESENTING EGM: /AP/Bi-V paced UNDERLYING RHYTHM: Sinus with CHB, no RV intrinsic at VVI 40bpm BATTERY STATUS: Estimated time remaining to CONNIE is 8.6 years. COUNTERS SINCE: 11/08/2022 ARRHYTHMIAS: None LEAD MEASUREMENTS: Capture and RA sensing are appropriate. The pacing outputs maintain safety margin. Review of the lead impedance trends are normal. IMPLANT SITE/ SYMPTOMS: The incision and pocket are pain-free, well healed and without signs of erosion or infection. OTHER DIAGNOSTICS: RA pacing 21.1%, Nonadaptive BiV pacing 97.3%. PROGRAMMING CHANGES MADE TODAY: RV sensing was programmed to integrated bipolar with sensitivity programmed at 0.45mV, as it was in previous device. FOLLOW UP: Pt will continue with every 3 month remote transmissions and annual in-clinic visits. Kinga Ruiz RN PROBLEM LIST: unexplained syncope in the setting of severe LV systolic dysfunction, with suspicion for ventricular tachyarrhythmia. During that hospitalization, his LVEF was found to be severely reduced at 19%. Coronary angiography during that stay demonstrated no evidence of flow-limiting coronary artery disease. 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 TTE : - The left ventricle is [...] 3+) mitral valve regurgitation. Regurgitant orifice area (PISA) is 0.21 cm?. - Exam was compared with the prior CC echocardiographic exam performed on 03/23/2016. MR appears to have increased. tibular fracture after slip and fall. TTE : - The left ventricle is dilated. Left ventricular systolic function is mildly decreased. EF = 45 ? 5% (visual est.) - The right ventricle is normal in size. Right ventricular systolic function is normal. - The left atrial cavity is mildly dilated. - Mild to moderate (1-2+) MR. - Mild to moderate (1-2+) AI. - Exam was compared with the prior CC echocardiographic exam performed on 07/04/2016 Ejection fraction and MR have improved. TTE with Dr. Barnett: - Exam indication: Evaluation of known heart failure to guide therapy - The left ventricle is normal in size. Left ventricular systolic function is mildly decreased. EF = 45 ? 5% (visual est.) - The right ventricle is normal in size. Right ventricular systolic function is low normal. - The left atrial cavity is severely dilated. - The right atrial cavity is mildly dilated. - The visualized aorta is borderline dilated with a maximal dimension of 3.8 cm. - There is moderate (2+) aortic valve regurgitation. - There are no significant valvular abnormalities. - Exam was compared with the prior echocardiographic exam performed on 11/23/2017. Similar findings. IMPRESSION / PLAN: 82 y/o with DCM, LBBB and VT with associated syncope - s/p MATTRESS STRIPPER-D . He was followed by Dr. Darden - last seen 2016. He presented to [facility] for his device . Last seen be id at time of generator change. presents for follow up No CV complaints. No CV events in past year. Looking forward to tina [facility] in [place] with zayda On OMT with Entresto and Coreg. Follows with Dr. Barnett at [facility] main - upcoming visits in September 2022 Dizziness with positional changes - chronic issues - consistent with orthostatic intolerance. No arrhythmia noted on device check. Improved with counter maneuvers prior to standing. LV lead is in a good mid lateral position. Paces with a RBBB, rightward axis. No underlying rhythm at VVI 30 Rate histogram appropriate. BiV pacing 97% No S (more content not included)...[facility]09-07-2023 History of Present illness Narrative* Lamine Katz MD - 01/18/2023 3:00 PM EDT EP STAFF NOTE: Please note: This note has been produced using speech recognition software and may contain errors related to that system including grammar, punctuation, spelling, gender and words and phrases that may be inappropriate Consultation initially requested by Dr. Horne 2018 for an opinion regarding management of MATTRESS STRIPPER device I have reviewed the above information and examined the patient and confirm the above with the following additions/modifications. PE: Vitals: BP 122/68 Pulse 64 Ht 175.3 cm (5' 9") Wt 79.4 kg (175 lb) SpO2 97% BMI 25.84 kg/m Neck: no JVD. Lungs: Unlabored Heart: RRR Extremities: No peripheral edema bilaterally. DEVICE CHECK: CHB, no RV intrinsic at VVI 30 Today: PRESENTS FOR: Appt with Dr. Katz PRESENTING EGM: /AP/Bi-V paced UNDERLYING RHYTHM: Sinus with CHB, no RV intrinsic at VVI 40bpm BATTERY STATUS: Estimated time remaining to CONNIE is 8.6 years. COUNTERS SINCE: 11/08/2022 ARRHYTHMIAS: None LEAD MEASUREMENTS: Capture and RA sensing are appropriate. The pacing outputs maintain safety margin. Review of the lead impedance trends are normal. IMPLANT SITE/ SYMPTOMS: The incision and pocket are pain-free, well healed and without signs of erosion or infection. OTHER DIAGNOSTICS: RA pacing 21.1%, Nonadaptive BiV pacing 97.3%. PROGRAMMING CHANGES MADE TODAY: RV sensing was programmed to integrated bipolar with sensitivity programmed at 0.45mV, as it was in previous device. FOLLOW UP: Pt will continue with every 3 month remote transmissions and annual in-clinic visits. Kinga Ruiz RN PROBLEM LIST: unexplained syncope in the setting of severe LV systolic dysfunction, with suspicion for ventricular tachyarrhythmia. During that hospitalization, his LVEF was found to be severely reduced at 19%. Coronary angiography during that stay demonstrated no evidence of flow-limiting coronary arterydisease. 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 TTE : - The left ventricle is mildly dilated. There is left ventricular hypertrophy. Left ventricular systolic function is moderately decreased. EF = 34 5% (2D biplane) (Visually EF appears <35%). - The right ventricle is normal in size. Right ventricular systolic function is normal. - The left atrial cavity is severely dilated. - The right atrial cavity is dilated. - There is moderate (2+ - 3+) mitral valve regurgitation. Regurgitant orifice area (PISA) is 0.21 cm . - Exam was compared with the prior echocardiographic exam performed on 03/23/2016. MR appears to have increased. tibular fracture after slip and fall. TTE : - The left ventricle is dilated. Left ventricular systolic function is mildly decreased. EF = 45 5% (visual est.) - The right ventricle is normal in size. Right ventricular systolic function is normal. - The left atrial cavity is mildly dilated. - Mild to moderate (1-2+) MR. - Mild to moderate (1-2+) AI. - Exam was compared with the prior echocardiographic exam performed on 07/04/2016 Ejection fraction and MR have improved. TTE with Dr. Barnett: - Exam indication: Evaluation of known heart failure to guide therapy - The left ventricle is normal in size. Left ventricular systolic function is mildly decreased. EF = 45 5% (visual est.) - The right ventricle is normal in size. Right ventricular systolic function is low normal. - The left atrial cavity is severely dilated. - The right atrial cavity is mildly dilated. - The visualized aorta is borderline dilated with a maximal dimension of 3.8 cm. - There is moderate (2+) aortic valve regurgitation. - There are no significant valvular abnormalities. - Exam was compared with the prior echocardiographic exam performed on 11/23/2017. Similar findings. IMPRESSION / PLAN: 82 y/o with DCM, LBBB and VT with associated syncope - s/p MATTRESS STRIPPER-D . He was followed by Dr. Darden - last seen 2016. He presented to [facility] care for his device . Last seen be id at time of generator change. presents for follow up No CV complaints. No CV events in past year. Looking forward to [employer] in [place] with zayda On OMT with Entresto and Coreg. Follows with Dr. Barnett at [facility] main - upcoming visits in September 2022 Dizziness with positional changes - chronic issues - consistent with orthostatic intolerance. No arrhythmia noted on device check. Improved with counter maneuvers prior to standing. LV lead is in a good mid lateral position. Paces with a RBBB, rightward axis. No underlying rhythm at VVI 30 Rate histogram appropriate. BiV pacing 97% No S/S of volume overload on PE. Since generator change - TTE updated by Dr. Barnett 10-05-22: - The left ventricle is normal in size. Left ventricular systolic function is mildly decreased. EF = 48 5% (2D biplane) Left ventricular diastolic function was not evaluated due to >2+ AI and >2+ MR. - The right ventricle is normal in size. Right ventricular systolic function is low normal. - The left atrial cavity is mildly dilated. - There is moderately severe (3+) holosystolic mitral valve regurgitation. Regurgitant orifice area (PISA) is 0.23 cm . - There is moderate (2+) aortic valve regurgitation. - Exam was compared with the prior echocardiographic exam performed on 02/17/2021. Interval progression of MR severity. Plan to [facility] Remotes q 3 months Annual EP visits with device check This note was created with electronic dictation and errors in syntax and meaning may have occurred. Lamine Katz MD Pager: [phone] Office: [phone] I personally examined the patient and repeated [...] the diagnosis and medical regimen Referring Physician: Jenaro Hong Jr, MD [id number] [id number] [facility] this [facility] Miscellaneous Notes* Telephone Encounter - Gordo Montalvo RN - 11/08/2022 1:47 PM EDT After reviewing all documents and 1 High rate-NS event, EGM shows one 1 second of TWOS and noise/oversensing. Patient had this back in June and patient came in 06/15/20 to have changes made and no further episodes occurred. It appears the changes (which were RV sensing from bipolar to integrated bipolar, and sensitivity from 0.30mV to 0.45mV) were not changed in the new ICD. I called patient requesting him to come back (as he was driving back home) and he said would like to wait until he comes back to see Dr. Katz in January. I did let patient and know that if patient experiences any dizziness or weird feelings like hedid back in 2020 to be seen sooner. Patient and verbally confirmed understanding. Updated Dr. Katz. MULTI LEAD ICD EVALUATION PRESENTS FOR: 4-6 week post implant device check. PRESENTING EGM: AP-/BiVP UNDERLYING RHYTHM: Sinus jaxson with CHB, rare ventricular escape at VVI 30bpm. BATTERY STATUS: Estimated time remaining to CONNIE is 8.8 years. COUNTERS SINCE: 09/26/22 ATRIAL ARRHYTHMIAS: None. VENTRICULAR ARRHYTHMIAS: There was 1 High Rate-NS episode on 10/03/22 at 12:05am for 1 second. EGM shows TWOS/lead noise, which patient previously had in previous device (in-clinic check explains fullextent 06/15/20). LEAD MEASUREMENTS: Capture and RA sensing are appropriate. The pacing outputs maintain safety margin. Review of the lead impedance trends are normal. Upon reviewing of episode, RV sensitivity is at 0.30mV, and RV sensing is bipolar (Previous device was programmed with RV sensitivity at 0.45mV, and sense polarity was integrated bipolar). IMPLANT SITE/ SYMPTOMS: The incision and pocket are pain-free, well healed and without signs of erosion or infection. OTHER DIAGNOSTICS: RA pacing 23.5%, Nonadaptive BiV pacing 96.9%. PROGRAMMING CHANGES MADE TODAY: Turned ON post-shock pacing. FOLLOW UP: After reviewing EGM and patient's programming history quite awhile after patient left, Iattempted to call patient back for programming changes. Patient reports he would like to wait untilSeptember, as he is almost home (Lives in [facility]). Telephone encounter documented in [place]. Update Dr. Katz. Continue Q3 month remotes and routine in clinic device checks. Gordo Montalvo RN documented in this encounterOhio[facility]23 Hospital Discharge instructions Patient Education 10/31/2022 12:50:30 LACERATION, All Laceration (All Closures) A laceration is a cut through the skin. This will usually require stitches (sutures) or lina if it is deep. Minor cuts may be treated with a surgical tape closure or skin glue. Home care The following guidelines will help you care for your laceration at home: Extremity, face, or trunk wounds Keep the wound clean and dry. If a bandage was applied and it becomes wet or dirty, replace it. Otherwise, leave it in place for the first 24 hours. If stitches or lina were used, clean the wound daily. After removing the bandage, wash the area with soap and water. Use a wet cotton swab to loosen and remove any blood or crust that forms. The doctor may prescribe an antibiotic cream or ointment to prevent infection. Do not stop taking this medication until you have finished the prescribed course or the doctor tells you to stop. The doctor may also prescribe medications for pain. Follow the doctor s instructions for taking these medications. You may remove the bandage to shower as usual after the first 24 hours, but do not soak the area inwater (no swimming) until the stitches or lina are removed. If surgical tape was used, keep the area clean and dry. If it becomes wet, blot it dry with a towel. If skin glue was used, do not scratch, rub, or pick at the adhesive film. Do not place tape directly over the film. Do not apply liquid, ointment, or creams to the wound while the film is in place. Do not clean the wound with peroxide and do not apply ointments. Avoid activities that cause heavy sweating until the film has fallen off. Protect the wound from prolonged exposure to sunlight or tanning lamps. You may shower as usual but do not soak the wound in water (no baths or swimming). The film will fall off by itself in 5 10 days. Scalp wounds During the first two days, you may carefully rinse your hair in the shower to remove blood, glass or dirt particles. After two days, you may shower and shampoo your hair normally. Do not soak your scalp in the tub or go swimming until the stitches or lina have been removed. Talk with your doctorbefore applying any antibiotic ointment to the wound. Mouth wounds Eat soft foods to reduce pain. If the cut is inside of your mouth, clean by rinsing after each mealand at bedtime with a mixture of equal parts water and hydrogen peroxide (do not swallow!). Or, youcan use a cotton swab to directly apply hydrogen peroxide onto the cut. Mouth wounds can be painfulwhen eating. You may use an sove-doy-kfbwmdh local numbing solution for pain relief. If this is notavailable, you may use any numbing solution for teething babies. You may apply this directly to thesores with a cotton-tip swab or with your finger. Follow-up care Follow up with your health care provider. Most skin wounds heal within ten days. Mouth and facial wounds heal within five days. However, even with proper treatment, a wound infection may sometimes occur. Therefore, you should check the wound daily for signs of infection listed below. Stitches should be removed from the face within five days; stitches and lina should be removed from other parts of the body within 7 14 days. If dissolving stitches were used in the mouth, these will fall out or dissolve without the need for removal. If tape closures were used, remove them yourself if they have not fallen off after 7 days. If skin glue was used, the film will fall off by itself in 5 10 days. When to seek medical advice Call your health care provider right away if any of these occur: Bleeding not controlled by direct pressure Signs of infection, including increasing pain in the wound, increasing wound redness or swelling, or pus coming from the wound Fever of 100.4 F (38 C) or higher, or as directed by your health care provider Stitches or lina come apart or fall out or surgical tape falls off before 7 days Wound edges re-open [phone] [employer] [facility]. [address] [place] [address]. All rights reserved. This information is not intended as a substitute for professional medical care. Always follow yourhealthcare professional's instructions. Follow Up Care 10/31/2022 10:59:48 With:KENN TURCIOS BUYER ASSISTANT-NURSING UNIT CLERK Address: [address] [facility] [place], [place] [phone] When:2-4 days With:Go to emergency room if symptoms worsen Address:Unknown When:2-4 days [facility] 06-20-2023 Note Discharge Instructions Thank you for allowing [facility] to assist you with your healthcare needs. The following is importantdischarge information regarding your hospital visit. Diagnosis from Today's Visit Laceration of thumb Laceration of finger What to Do Next Instructions from Your Care Team Cleanse with mild soap and water daily. For next 5 days apply thin film of bacitracin. Apply gauze dressing is covering. Keep covered until significant scab forms. No qualifying data available. Post Acute Orders No qualifying data available. You Need to Schedule the Following Appointments Follow Up with KENN TURCIOS When Within 2-4 days Where: [address] [facility] [place] [address]- [phone] Follow Up with Go to emergency room if symptoms worsen When Within 2-4 days Allergies lisinopril (Cough) Medications Please ask your primary doctor or pharmacist before taking any other medication not listed, including over the counter drugs, herbal medications, vitamins and or supplements as they may interact withyour home medications. What How Much When Why Instructions Last Dose Unchanged atorvastatin (atorvastatin 10 mg oral tablet) 1 tab(s) by mouth Once a day Hyperlipidemia Type 2 diabetes mellitus Duration: 90 Days Unchanged carvedilol (carvedilol 25 mg oral tablet) 1 tab(s) by mouth Two (2) times a day Hypertension Unchanged cholecalciferol (Vitamin D3 50 mcg (2000 intl units) oral capsule) 1 cap by mouth Once a day Unchanged chondroitin-glucosamine (Osteo Bi-Flex) Unchanged ferrous sulfate (ferrous sulfate 325 mg (65 mg elemental iron) oral delayed release tablet) 1 tab(s) by mouth Once a day Iron deficiency anemia Unchanged Misc Medication Something for his feet, OTC. And a cream also for his feet. Unchanged Misc Medication (Nerve Renew) 1 tab(s) by mouth Two (2) times a day Unchanged multivitamin (M.V.I. Adult) Unchanged naproxen (Aleve 220 mg oral tablet) 1 cap by mouth Every day as needed for as needed for pain Unchanged nortriptyline (nortriptyline 50 mg oral capsule) 1 cap by mouth Two (2) times a day Neuropathy Duration: 90 Days Unchanged sacubitril-valsartan (Entresto 24 mg-26 mg oral tablet) 1 tab(s) by mouth Two (2) times a day Unchanged ubiquinone (Co-Q10) 400 Milligram by mouth Once a day Unchanged zinc gluconate (zinc (as gluconate) 50 mg oral tablet) 1 tab(s) by mouth Every day Please take this list to your next doctor s visit. Bring all medications you take, including over the counter medications, herbals and other supplements with you to your doctor s visit. Patients and families are reminded to discard old lists and to update any records with all medication providers or retail pharmacies. Education Materials Laceration (All Closures) A laceration is a cut through the skin. This will usually require stitches (sutures) or lina if it is deep. Minor cuts may be treated with a surgical tape closure or skin glue. Home care The following guidelines will help you care for your laceration at home: Extremity, face, or trunk wounds Keep the wound clean and dry. If a bandage was applied and it becomes wet or dirty, replace it. Otherwise, leave it in place for the first 24 hours. If stitches or lina were used, clean the wound daily. After removing the bandage, wash the area with soap and water. Use a wet cotton swab to loosen and remove any blood or crust that forms. The doctor may prescribe an antibiotic cream or ointment to prevent infection. Do not stop taking this medication until you have finished the prescribed course or the doctor tells you to stop. The doctor may also prescribe medications for pain. Follow the doctor s instructions for taking these medications. You may remove the bandage to shower as usual after the first 24 hours, but do not soak the area inwater (no swimming) until the stitches or lina are removed. If surgical tape was used, keep the area clean and dry. If it becomes wet, blot it dry with a towel. If skin glue was used, do not scratch, rub, or pick at the adhesive film. Do not place tape directly over the film. Do not apply liquid, ointment, or creams to the wound while the film is in place. Do not clean the wound with peroxide and do not apply ointments. Avoid activities that cause heavy sweating until the film has fallen off. Protect the wound from prolonged exposure to sunlight or tanning lamps. You may shower as usual but do not soak the wound in water (no baths or swimming). The film will fall off by itself in 5 10 days. Scalp wounds During the first two days, you may carefully rinse your hair in the shower to remove blood, glass or dirt particles. After two days, you may shower and shampoo your hair normally. Do not soak your scalp in the tub or go swimming until the stitches or lina have been removed. Talk with your doctorbefore applying any antibiotic ointment to the wound. Mouth wounds Eat soft foods to reduce pain. If the cut is inside of your mouth, clean by rinsing after each mealand at bedtime with a mixture of equal parts water and hydrogen peroxide (do not swallow!). Or, youcan use a cotton swab to directly apply hydrogen peroxide onto the cut. Mouth wounds can be painfulwhen eating. You may use an xvpu-abg-zuvwqeu local numbing solution for pain relief. If this is notavailable, you may use any numbing solution for teething babies. You may apply this directly to thesores with a cotton-tip swab or with your finger. Follow-up care Follow up with your health care provider. Most skin wounds heal within ten days. Mouth and facial wounds heal within five days. However, even with proper treatment, a wound infection may sometimes occur. Therefore, you should check the wound daily for signs of infection listed below. Stitches should be removed from the face within five days; stitches and lina should be removed from other parts of the body within 7 14 days. If dissolving stitches were used in the mouth, these will fall out or dissolve without the need for removal. If tape closures were used, remove them yourself if they have not fallen off after 7 days. If skin glue was used, the film will fall off by itself in 5 10 days. When to seek medical advice Call your health care provider right away if any of these occur: Bleeding not controlled by direct pressure Signs of infection, including increasing pain in the wound, increasing wound redness or swelling, or pus coming from the wound Fever of 100.4 F (38 C) or higher, or as directed by your health care provider Stitches or lina come apart or fall out or surgical tape falls off before 7 days Wound edges re-open [phone] [employer] [facility]. [address] [place] [address]. All rights reserved. This information is not intended as a substitute for professional medical care. Always follow yourhealthcare professional's instructions. Additional Information VACCINATE! IT SAVES LIVES! Members of the community who have not yet received the COVID-19 vaccine and would like to receive it can visit one of [facility] vaccine clinics. There are many vaccine clinic locations within the [facility]. For locations and available times, please visit www.gettheshot.coronavirus.[place].gov/. It is important to note that some COVID mobile vaccine clinics are held outdoors and may be canceled in rainy or stormy conditions. To learn more about pediatric vaccinations (ages 5-11), we invite you to visit the [facility] webpage. [email or web address]/[email or web address] [email or web address] learn more about the COVID-19 vaccine, we invite you to visit the CDC website for a list of frequently asked questions. https://www.cdc.gov/coronavirus/2019-ncov/vaccines/faq.html [facility] listedplaces Patient Portal Access Instructions: Stay connected with your healthcare team and access your personal medical information anytime with the [facility] Patient Portal. If you would like a full copy of your medical records please contact the [facility] Medical Records Department Sunday through Sunday between 8a.m. and 4:30p.m. Please follow the directions below to access the portal: 1.Access the email account you provided upon [facility] the [facility].2.Look for an invitation email from [facility].3.Open the email and access the invitation link: Accept Invitation to [facility]4.Fill in the required arevalo to create your account. Sign into www.[employer] with your username and password that you created in the above steps to stay up to date. You can then view a summary of results, a summary of your visits, and the ability to download your summaries to your computer or send the information securely to a physician. Remember that your healthcare information is confidential, so carefully consider who you will allow to register on the [facility] Patient Portal for access to your information. You can also access the [facility] Patient Portal on the [employer] a[employer]. Simply click on "Health Records" under "HealthData" and then click on the [facility] logo. HOW TO SAFELY DISPOSE OF PRESCRIPTION MEDICATIONS Please use one of the following methods to safely dispose of your unused medications. 1.Use a drug disposal kit: the drug disposal pouch allows you to safely discard your old and unuseddrugs. Ask your nurse to give you one when you are discharged.2.Visit a local take-back location: Many local pharmacies and police departments have programs that collect old and unwanted prescriptiondrugs. Call your local pharmacy or go to [email or web address] to find one close to you.3.Make use of household items: Use cat litter or old coffee grounds to dispose medications if other options arenot available. Mix your drugs with these household products, seal them in an airtight container andthrow it into the garbage. Call [facility]: [phone] to be sure your drugs can be disposed of in this way. Some medicines may require a different approach.4.Never flush your medications down the toilet. IF YOU HAVE BEEN PRESCRIBED AN OPIOIDS FOR PAIN If you have been prescribed an opioid (such as hydrocodone, oxycodone or morphine), it is critical to understand the possible side effects and risks of opioid pain medications. Even when taken as directed, opioids can have several side effects including: Tolerance, meaning you might need to take more of a medication for the same pain relief. Nausea, vomiting and/or constipation. Sleepiness, dizziness, dry mouth, confusion, depression or itching. Physical dependence, meaning you have withdrawal symptoms when a medication is stopped ? this can develop within a few days. KNOW YOUR RESPONSIBILITIES It is important to know exactly how much and how often to take the opioid pain medications you are prescribed. Never take opioids in higher amounts or more often than prescribed. Do not combine opioids with alcohol or other drugs that cause drowsiness, such as benzodiazepines, also known as benzos,including diazepam and alprazolam, muscle relaxants or sleep aids. Never sell or share prescriptionopioids. This is illegal. Store opioids in a secure place and out of reach of others (including children, family, friends and visitors). The last page(s) of this document has been signed and retained as a CHART COPY Signatures Patient Education Materials LACERATION, All Medication Leaflets My discharge plan and instructions have been reviewed and explained to me and IETHAN HAROLD D understand my current condition and have read and understand these discharge instructions. I have received a written copy of the plan/instructions. If I have questions, I am aware that I should contact my doctor. 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 HISTORY: ORDERING SYSTEM PROVIDED HISTORY: Reason for Exam: pain. Laceration. FINDINGS: There is no acute fracture or dislocation. Normal osseous mineralization. Moderate joint space narrowing and osteophytosis noted of the 1st metacarpophalangeal joint. Advanced partially visible 1st carpometacarpal arthrosis also. Soft tissue irregularity of the distal aspect of the 1st digit is noted, compatible stated history of laceration. No visible radiopaque foreign body. IMPRESSION: 1. No acute osseous abnormalities. 2. Findings compatible stated history of laceration. No visible radiopaque foreign body Interpreted by: Jeremy Jimenes DO Preliminary Report By: Jeremy Jimenes DO Electronically signed By Jeremy Jimenes DO Dictated Date: 10/31/2022 11:54:18 AM Prelim Date: 10/31/2022 11:55:21 AM Sign Date: 10/31/2022 11:55:21 AM Ordering Provider: JIM OLMOS [facility]06-20-2023 Note ORIGINAL EXAMINATION: THREE XRAY VIEWS OF THE RIGHT THUMB 10/31/2022 11:38 am COMPARISON: None. HISTORY: ORDERING SYSTEM PROVIDED HISTORY: Reason for Exam: pain. Laceration. FINDINGS: There is no acute fracture or dislocation. Normal osseous mineralization. Moderate joint space narrowing and osteophytosis noted of the 1st metacarpophalangeal joint. Advanced partially visible 1st carpometacarpal arthrosis also. Soft tissue irregularity of the distal aspect of the 1st digit is noted, compatible stated history of laceration. No visible radiopaque foreign body. IMPRESSION: 1. No acute osseous abnormalities. 2. Findings compatible stated history of laceration. No visible radiopaque foreign body Interpreted by: Jeremy Jimenes DO Preliminary Report By: Jeremy Jimenes DO Electronically signed By Jreemy Jimenes DO Dictated Date: 10/31/2022 11:54:18 AM Prelim Date: 10/31/2022 11:55:21 AM Sign Date: 10/31/2022 11:55:21 AM Ordering Provider: [facility]06-02-2023 Miscellaneous Notes* Telephone Encounter - Soraida Emmanuel - 10/13/2022 12:32 PM EDT Post Implant follow up call: Date: 10/13/2022 Name: Jaime Ann Is your incision: Red: No Open: No Swollen: No Draining: No Steri Strips: fell off If the device is an ICD, have you received any shocks: No Have you received your temporary or permanent ID card: Yes Do you have your f/u appointment: Yes Appointments for Next 60 Days Date Time Provider Location Dept Phone 11/08/2022 12:45 PM [facility]ICE [facility] [phone] Any scheduling issues:No Questions moving forward: No Soraida Emmanuel [facility] NoteHNO ID: [id number] Author: Apple Barnett MD Service: ? Author Type: Physician Type: Progress Notes Filed: 10/05/2022 1:39 PM Note Text: Heart and Vascular [place] [facility] SECTION OF HEART FAILURE and CARDIAC TRANSPLANT MEDICINE OUTPATIENT VISIT DATE October 05, 2022 OUTPATIENT VISIT TYPE Established Patient PRIMARY CARE PHYSICIAN: Kenn Turcios NP [address] [place] [address] CHIEF COMPLAINT: HF f/u NURSING INTAKE (Patient?s concerns and/or recent hospitalizations/ER visits): HF Nursing Assessment: Interim Hospitalizations and/or ER visits:09/26/2022 [place] Chest Pain: no Skipping or irregular heartbeats: no Shortness of breath at rest: no Shortness of breath with activity: no Cough: no Waking up in the middle of the night gasping for air: no Lightheadedness or dizziness: yes, looking up and down Feeling like you are going to pass out: no Actually passing out: no Poor energy level: yes Unintentional weight gain: no Unintentional weight loss: no Swelling in your legs,feet, abdomen: no Filling up quickly when you eat: no HISTORY OF PRESENT ILLNESS: No new issues PAST MEDICAL HISTORY Diagnosis Date Chronic lymphocytic leukemia (HCC) HTN (hypertension) Liver cyst Non-ischemic cardiomyopathy (HCC) Peripheral neuropathy Prostate cancer (HCC) s/p external radiation. no resection Splenic artery aneurysm (HCC) Subdural hematoma (HCC) summer 2015, after heart stopped and fell, s/p evacuation Ventricular tachycardia (HCC) in 1983 and 2015 PAST SURGICAL HISTORY Procedure Laterality Date MATTRESS STRIPPER ICD (ICDCRT) 09/2015 FASCT PALM W/WO Z-PLASTY TISSUE REARGMT/SKN GRFT Left 04/04/2019 Left palmar fasciectomy HAND SURGERY HX 2014 detrupens contracture PAST SURGICAL HISTORY OF Right CMC arthroplasty PAST SURGICAL HISTORY OF percutaneous splenic artery aneurysm repair VASCULAR EMBOLIZATION OR OCCLUSION ARTERIAL RSANDI SOCIAL HISTORY Social History Tobacco Use Smoking status: Never Smokeless tobacco: Never Vaping Use Vaping Use: Never used Substance Use Topics Alcohol use: Yes Comment: rare use Drug use: No FAMILY HISTORY Problem Relation Age of Onset Stroke Mother Hypertension Mother Diabetes Mother Diabetes Father Ischemic Heart Disease Father ALLERGIES: ALLERGIES Allergen Reactions Lisinopril Cough CURRENT MEDICATIONS: nortriptyline (PAMELOR) 50 mg capsuleTake 50 mg by mouth twice daily.Disp: Rfl: carvedilol (COREG) 25 mg tabletTake 1 tablet by mouth twice daily with meals.Disp: 180 tabletRfl: 3 atorvastatin (LIPITOR) 20 mg tabletTake 1 tablet by mouth once daily.Disp: 90 tabletRfl: 3 sacubitril-valsartan (ENTRESTO) 49-51 mg tabletTake 1 tablet by mouth twice daily.Disp: 60 tabletRfl: 11 OTC NUTRITIONAL SUPPLEMENT2 tablets once daily. Nerve Renew Disp: Rfl: ZINC ACETATE ORALTake by mouth once daily.Disp: Rfl: MULTI-VITAMIN ORALTake by mouth.Disp: Rfl: CHOLECALCIFEROL, VITAMIN D3, (VITAMIN D3 ORAL)Take 1,000 Units by mouth once daily. Disp: Rfl: Coenzyme Q10 (CO Q-10) 400 mg capTake 1 capsule by mouth once daily. Disp: Rfl: ajwgfeicevh-T1-Latgwnhsp serr 1,500-400-100 mg-unit-mg tabTake 1 tablet by mouth once daily.Disp: Rfl: REVIEW OF SYSTEMS: ROS HEART FAILURE PATIENT ENTERED DATA: No flowsheet data found. PHQ-9 06/19/2017 Score 3 PROMIS Global Health - (T-Scores - the mean of general population = 50. Five points is a clinically meaningful difference.) 06/19/2017 03/04/2019 03/04/2019 Physical T-Score 47.7 - - Mental T-Score 53.3 50.8 50.8 PHYSICAL EXAMINATION: BP 154/74 (BP Site: Left Arm) Pulse 61 Ht 177.8 cm (5' 10") Wt 80.3 kg (177 lb) SpO2 99% BMI 25.40 kg/m? which is 3 lbs less than last visit. General: no distress, obese, accompanied by family Skin: No clubbing, no cyanosis. Eyes: Anicteric sclerae Neck: Neck veins are not distended, no carotid bruits Lungs: Chest clear to auscultation Heart: Rhythm: regular rate and rhythm, Rate: normal, no murmur Abdomen: No HSM, normal bowel sounds Extremities: No edema Labs on 10/26/2019: Na 140, K 4.0, BUN 18, Cr 1.1, WBC 32.6, hgb 12.4, plt 276 Labs Feb 2022 Alkphos 98, LDH 249, TC 45, TTG 110, LDL 147, Hgb a1C 6.2 Labs 05/24/22: WBC 52.9, hct 33.5, hgb 10.5, plt 221, TP 5.8, ALB 3.6, ALT 24, AST 22, Tbili 0.5, Ca 9.3, Na 142, K 4.6, BUN 38, Cr 1.68, glucose 94, TSH 2.84, Component Latest Ref Rng AND Units 07/29/2020 09/26/2022 Protein, Total 6.3 - 8.0 g/dL 5.8 (L) Albumin 3.9 - 4.9 g/dL 4.1 Calcium 8.5 - 10.2 mg/dL 9.4 9.3 Bilirubin, Total 0.2 - 1.3 mg/dL 0.3 Alkaline Phosphatase 38 - 113 U/L 88 AST 14 - 40 U/L 27 Glucose 74 - 99 mg/dL 96 120 (H) BUN 9 - 24 mg/dL 36 (H) 35 (H) Creatinine 0.73 - 1.22 mg/dL 1.38 (H) 1.87 (H) Sodium 136 - 144 mmol/L 142 143 Potassium 3.7 - 5.1 mmol/L 4.7 4.5 Chloride 97 - 105 mmol/L 106 (H) 108 (more content not included)...[facility]05-15-2023 Nurse Note* Trista Flowers RN - 09/25/2022 4:59 PM EDT THE FOLLOWING WAS EVALUATED Motivation To Learn: Interested Family/Significant Other Support: High - Very involved in pt care Cognitive Ability: Alert and oriented Patient Learns Best By: Individual Instruction The Following Influencing Factors Were Barriers To This Education Session: None The Following Physical Limitations Were Barriers To This Education Session: None Instruction Provided To: Patient Procedure: ICD Generator Change Pre-procedure information reviewed: Patient ID verified Procedure verified Physician verified Explanation of procedure Sedation level during procedure MD medication instructions from EP lab request n/a Travel instructions/restrictions Scheduling information Possible same day discharge versus overnight hospital stay Check out time Family waiting area Physician contact with family after procedure Post Procedure Expectations reviewed: Inpatient hospital stay Post procedure antiarrhythmics and anticoagulation will be discussed with Physician, nurse practitioner or Physician loan officer assistant upon discharge Instructions for transmitting EKG to Monitoring Center 3 month follow up instructions Contact number for information and questions Patient Evaluation: Verbalizes understanding Follow Up Plan: Follow up as directed by MD. Supplemental Material Given: Written Material Patient education regarding radiation exposure. Instructed By Trista Flowers RN. In Department of CARDIOLOGY. documented in this encounterOhio[facility] NoteEducation (EPSMN) JAIME ANN ([id number]) 1940 M Date Time Provider Department 09/25/22 TRISTA FLOWERS EPSMN Reason for Visit: Patient Education [91] Cmt: Visit Notes: >> Trista Flowers RN SunSeptember 25, 2022 4:59 PM Status: Signed THE FOLLOWING WAS EVALUATED Motivation To Learn: Interested Family/Significant Other Support: High - Very involved in pt care Cognitive Ability: Alert and oriented Patient Learns Best By: Individual Instruction The Following Influencing Factors Were Barriers To This Education Session: None The Following Physical Limitations Were Barriers To This Education Session: None Instruction Provided To: Patient Procedure: ICD Generator Change Pre-procedure information reviewed: Patient ID verified Procedure verified Physician verified Explanation of procedure Sedation level during procedure MD medication instructions from EP lab request n/a Travel instructions/restrictions Scheduling information Possible same day discharge versus overnight hospital stay Check out time Family waiting area Physician contact with family after procedure Post Procedure Expectations reviewed: Inpatient hospital stay Post procedure antiarrhythmics and anticoagulation will be discussed with Physician, nurse practitioner or Physician loan officer assistant upon discharge Instructions for transmitting EKG to Monitoring Center 3 month follow up instructions Contact number for information and questions Patient Evaluation: Verbalizes understanding Follow Up Plan: Follow up as directed by MD. Supplemental Material Given: Written Material Patient education regarding radiation exposure. Instructed By Trista Flowers RN. In Department of CARDIOLOGY. During your visit today, we recorded the following information about you: Allergies As of Date: 09/25/2022 Noted Allergy Reaction LISINOPRIL 07/04/2016 3 - Cough Date Reviewed: 08/28/2022 Reviewed by: Luz Srinivasan MA - Fully Assessed Prescriptions as of 09/25/2022 - carvedilol (COREG) 25 mg tablet Take 1 tablet by mouth twice daily with meals. - atorvastatin (LIPITOR) 20 mg tablet Take 1 tablet by mouth once daily. - sacubitril-valsartan (ENTRESTO) 49-51 mg tablet Take 1 tablet by mouth twice daily. - sacubitril-valsartan (ENTRESTO) 49-51 mg tablet Take 1 tablet by mouth twice daily. - OTC NUTRITIONAL SUPPLEMENT 2 tablets once daily. Nerve Renew - ZINC ACETATE ORAL Take by mouth once daily. - MULTI-VITAMIN ORAL Take by mouth. - nortriptyline (PAMELOR) 75 mg capsule Take 1 capsule by mouth twice daily. - CHOLECALCIFEROL, VITAMIN D3, (VITAMIN D3 ORAL) Take 1,000 Units by mouth once daily. - Coenzyme Q10 (CO Q-10) 400 mg cap Take 1 capsule by mouth once daily. - ktehihehvnd-C1-Wjbbhulpl serr 1,500-400-100 mg-unit-mg tab Take 1 tablet by mouth once daily. Facility-Administered Medications as of 09/25/2022 - perflutren lipid microspheres 1.3 mL in NaCl (PF) 0.9% 10 mL injection (DEFINITY) - sodium chloride 0.9 % (flush) 10 mL (BD POSIFLUSH) Encounter Status:Closed by TRISTA FLOWERS RN on 09/25/22[facility]04-17-2023 NoteHNO ID: [id number] Author: Lamine Katz MD Service: ? Author Type: Physician Type: Progress Notes Filed: 08/28/2022 11:06 AM Note Text: EP STAFF NOTE: Please note: This note has been produced using speech recognition software and may contain errors related to that system including grammar, punctuation, spelling, gender and words and phrases that may be inappropriate Consultation initially requested by Dr. Radha Hughes for an opinion regarding management of MATTRESS STRIPPER device and my final recommendations will be communicated back to the requesting physician by way of shared medical record OR letter via fax/US mail. I have reviewed the above information and examined the patient and confirm the above with the following additions/modifications. PE: Vitals: BP 150/82 Pulse 68 Ht 177.8 cm (5' 10") Wt 81.6 kg (180 lb) SpO2 98% BMI 25.83 kg/m? Neck: no JVD. Lungs: Unlabored Heart: RRR Extremities: No peripheral edema bilaterally. DEVICE CHECK: CHB, no RV intrinsic at VVI 30 Last remote : PRESENTING EGM: -AP/BiVP BATTERY STATUS: Device reached CORRECTIONAL GUARD on 07/31/2022. Device has advisory of potential for shortened CORRECTIONAL GUARD to EOS. COUNTERS SINCE: 06/05/2022 ATRIAL ARRHYTHMIAS: There have been no atrial high rate detections since the last evaluation. VENTRICULAR ARRHYTHMIAS: There have been no ventricular detections since the last evaluation. LEAD MEASUREMENTS: Sensing is appropriate. Review of the lead impedance trends are normal. OTHER DIAGNOSTICS: RA pacing 29.7%, 98.9%, VSR pace 0.2%, VS 0.9%. FOLLOW UP: Update sent to Dr. Katz. Updated patient on CORRECTIONAL GUARD status. Continue 5 week remote transmissions and yearly in-clinic interrogations. Dwain Garcia RN. PROBLEM LIST: unexplained syncope in the setting of severe LV systolic dysfunction, with suspicion for ventricular tachyarrhythmia. During that hospitalization, his LVEF was found to be severely reduced at 19%. Coronary angiography during that stay demonstrated no evidence of flow-limiting coronary artery disease. 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 TTE : - The left ventricle is [...] 3+) mitral valve regurgitation. Regurgitant orifice area (PISA) is 0.21 cm?. - Exam was compared with the prior CC echocardiographic exam performed on 03/23/2016. MR appears to have increased. tibular fracture after slip and fall. TTE : - The left ventricle is dilated. Left ventricular systolic function is mildly decreased. EF = 45 ? 5% (visual est.) - The right ventricle is normal in size. Right ventricular systolic function is normal. - The left atrial cavity is mildly dilated. - Mild to moderate (1-2+) MR. - Mild to moderate (1-2+) AI. - Exam was compared with the prior CC echocardiographic exam performed on 07/04/2016 Ejection fraction and MR have improved. IMPRESSION: 82 y/o with DCM, LBBB and VT with associated syncope - s/p MATTRESS STRIPPER-D . He was followed by Dr. Darden - last seen 2016. He presented to [facility] for his device . Last seen be id . Device reached CONNIE . Scheduled for generator change . presents for follow up No CV complaints. No CV events in past year. On OMT with Entresto and Coreg. Follows with Dr. Barnett at [facility] main - upcoming visits in September 2022 Dizziness with positional changes - chronic issues - consistent with orthostatic intolerance. No arrhythmia noted on device check. Improved with counter maneuvers prior to standing. LV lead is in a good mid lateral position. Paces with a RBBB, rightward axis. No underlying rhythm at VVI 30 Rate histogram appropriate. BiV pacing 99% No S/S of volume overload on PE. ast visit TTE with Dr. Barnett: - Exam indication: Evaluation of known heart failure to guide therapy - The left ventricle is normal in size. Left ventricular systolic function is mildly decreased. EF = 45 ? 5% (visual est.) - The right ventricle is normal in size. Right ventricular systolic function is low normal. - The left atrial cavity is severely dilated. - The right atrial cavity is mildly dilated. - The visualized aorta is borderline dilated with a maximal dimension of 3.8 cm. - There is moderate (2+) aortic valve regurgitation. - There are no significant valvular abnormalities. - Exam was compared with the prior echocardiographic exam performed on 11/23/2017. Similar findings. TANISHA (more content not included)...[facility]04-17-2023 History of Present illness Narrative* Lamine Katz MD - 08/28/2022 10:30 AM EDT EP STAFF NOTE: Please note: This note has been produced using speech recognition software and may contain errors related to that system including grammar, punctuation, spelling, gender and words and phrases that may be inappropriate Consultation initially requested by Dr. Horne 2017 for an opinion regarding management of MATTRESS STRIPPER device and my final recommendations will be communicated back to the requesting physician by way of shared medical record OR letter via fax/US mail. I have reviewed the above information and examined the patient and confirm the above with the following additions/modifications. PE: Vitals: BP 150/82 Pulse 68 Ht 177.8 cm (5' 10") Wt 81.6 kg (180 lb) SpO2 98% BMI 25.83 kg/m Neck: no JVD. Lungs: Unlabored Heart: RRR Extremities: No peripheral edema bilaterally. DEVICE CHECK: CHB, no RV intrinsic at VVI 30 Last remote : PRESENTING EGM: -AP/BiVP BATTERY STATUS: Device reached CORRECTIONAL GUARD on 07/31/2022. Device has advisory of potential for shortened RRTto EOS. COUNTERS SINCE: 06/05/2022 ATRIAL ARRHYTHMIAS: There have been no atrial high rate detections since the last evaluation. VENTRICULAR ARRHYTHMIAS: There have been no ventricular detections since the last evaluation. LEAD MEASUREMENTS: Sensing is appropriate. Review of the lead impedance trends are normal. OTHER DIAGNOSTICS: RA pacing 29.7%, 98.9%, VSR pace 0.2%, VS 0.9%. FOLLOW UP: Update sent to Dr. Katz. Updated patient on CORRECTIONAL GUARD status. Continue 5 week remote transmissions and yearly in-clinic interrogations. Dwain Garcia RN. PROBLEM LIST: unexplained syncope in the setting of severe LV systolic dysfunction, with suspicion for ventricular tachyarrhythmia. During that hospitalization, his LVEF was found to be severely reduced at 19%. Coronary angiography during that stay demonstrated no evidence of flow-limiting coronary arterydisease. 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 TTE : - The left ventricle is mildly dilated. There is left ventricular hypertrophy. Left ventricular systolic function is moderately decreased. EF = 34 5% (2D biplane) (Visually EF appears <35%). - The right ventricle is normal in size. Right ventricular systolic function is normal. - The left atrial cavity is severely dilated. - The right atrial cavity is dilated. - There is moderate (2+ - 3+) mitral valve regurgitation. Regurgitant orifice area (PISA) is 0.21 cm . - Exam was compared with the prior CC echocardiographic exam performed on 03/23/2016. MR appears to have increased. tibular fracture after slip and fall. TTE : - The left ventricle is dilated. Left ventricular systolic function is mildly decreased. EF = 45 5% (visual est.) - The right ventricle is normal in size. Right ventricular systolic function is normal. - The left atrial cavity is mildly dilated. - Mild to moderate (1-2+) MR. - Mild to moderate (1-2+) AI. - Exam was compared with the prior CC echocardiographic exam performed on 07/04/2016 Ejection fraction and MR have improved. IMPRESSION: 82 y/o with DCM, LBBB and VT with associated syncope - s/p MATTRESS STRIPPER-D . He was followed by Dr. Darden - last seen 2016. He presented to [facility] for his device . Last seen be id . Device reached CONNIE . Scheduled for generator change . presents for follow up No CV complaints. No CV events in past year. On OMT with Entresto and Coreg. Follows with Dr. Barnett at [facility] main - upcoming visits in September 2022 Dizziness with positional changes - chronic issues - consistent with orthostatic intolerance. No arrhythmia noted on device check. Improved with counter maneuvers prior to standing. LV lead is in a good mid lateral position. Paces with a RBBB, rightward axis. No underlying rhythm at VVI 30 Rate histogram appropriate. BiV pacing 99% No S/S of volume overload on PE. ast visit TTE with Dr. Barnett: - Exam indication: Evaluation of known heart failure to guide therapy - The left ventricle is normal in size. Left ventricular systolic function is mildly decreased. EF = 45 5% (visual est.) - The right ventricle is normal in size. Right ventricular systolic function is low normal. - The left atrial cavity is severely dilated. - The right atrial cavity is mildly dilated. - The visualized aorta is borderline dilated with a maximal dimension of 3.8 cm. - There is moderate (2+) aortic valve regurgitation. - There are no significant valvular abnormalities. - Exam was compared with the prior echocardiographic exam performed on 11/23/2017. Similar findings. PLAN: Generator change scheduled for 09-26-22. procedure reviewed. Battery under advisory - checked today with [employer] - battery decline has been predictable. 09-26 procedure date is acceptable. Disabled CONNIE alarm. EOS alarm remains on. He is driving to [email or web address] today - will be back for the generator change 09-26. This note was created with electronic dictation and errors in syntax and meaning may have occurred. Lamine Katz MD Pager: [phone] Office: [phone] I personally examined the patient and repeated [...] the diagnosis and medical regimen Referring Physician: Jenaro Hong Jr, MD [address] [address] documented in this encounterOhiohealth [facility]04-03-2023 Miscellaneous Notes* Telephone Encounter - John Auguste RN - 08/14/2022 1:04 PM EDT The date of 09-26-[address] Katz offered & accepted by patients' . Noted to be scheduled for OPD with Dr. Katz on 08-28-22. Instructed that patient will also need labs & CXR that day as well. Stated understanding. * Telephone Encounter - John Auguste RN - 08/14/2022 1:03 PM EDT ----- Message from Lamine Katz MD sent at 08/09/2022 6:51 PM EDT ----- EPS Lab Request: Device Patient: Jaime Ann Requested by: Lamine Katz MD Requesting Physician: Lamine Katz MD Procedure Physician: Any Procedure Requested: ICD change CPT: 98196 Multi Lead Date of Last H&P? 06-05 Indications / Dx for Procedure: CHF Procedure Time Frame: Patient's Convenience Estimated length of case: 1 HOUR Device Company: [email or web address] Potential Research Patient: No Type of Bed: SHORTSTAY (4-8 HRS) Medication to be stopped(please specify medication/timeframe): No documented in this encounterOhiohealth Nelsonville [facility] Center03-27-2023 Miscellaneous Notes* Telephone Encounter - Misty Lindsay RN - 08/07/2022 9:56 AM EDT Pt calling in to report device is has been alarming for the past week. Per 08/01/22 Remote Check: Device reached CORRECTIONAL GUARD on 07/31/2022. Device has advisory of potential for shortened CORRECTIONAL GUARD to EOS. documented in this encounterOhiohealth [facility]ville [facility] Center01-25-2023 Miscellaneous Notes* Telephone Encounter - Linnea Valle [facility] - 06/07/2022 9:36 AM EST Patient's copay was $47 for a 30 day supply with his Medicare Part D insurance. Patient was approved for efra assistance through [employer] which brought the copay to $0. Shipment has been arranged, and pt will receive medication(s) on 06/08/22 [address] [employer]. Patient expressed understanding of the information provided today and received our contact information for any questions or concerns which may arise. Thank you, Linnea Valle [facility] [phone] documented in this encounterOhiohealth Nelsonville [facility] Center01-23-2023 NoteHNO ID: [id number] Author: Apple Barnett MD Service: ? Author Type: Physician Type: Progress Notes Filed: 06/05/2022 7:53 PM Note Text: Heart [facility]ascular [facility] [facility] SECTION OF HEART FAILURE and CARDIAC TRANSPLANT MEDICINE OUTPATIENT VISIT DATE June 05, 2022 OUTPATIENT VISIT TYPE Established Patient PRIMARY CARE PHYSICIAN: Kenn Turcios NP [address] [place] [address] CHIEF COMPLAINT: HF f/u NURSING INTAKE (Patient?s concerns and/or recent hospitalizations/ER visits): HF Nursing Assessment: Interim Hospitalizations and/or ER visits:no Chest Pain: no Skipping or irregular heartbeats: no Shortness of breath at rest: no Shortness of breath with activity: no Cough: yes Waking up in the middle of the night gasping for air: no Lightheadedness or dizziness: no Feeling like you are going to pass out: no Actually passing out: no Poor energy level: yes with age Unintentional weight gain: no Unintentional weight loss: no Swelling in your legs,feet, abdomen: no Filling up quickly when you eat: no HISTORY OF PRESENT ILLNESS: No new issues PAST MEDICAL HISTORY Diagnosis Date Chronic lymphocytic leukemia (HCC) HTN (hypertension) Liver cyst Non-ischemic cardiomyopathy (HCC) Peripheral neuropathy Prostate cancer (HCC) s/p external radiation. no resection Splenic artery aneurysm (HCC) Subdural hematoma (HCC) summer 2015, after heart stopped and fell, s/p evacuation Ventricular tachycardia (HCC) in 1983 and 2015 PAST SURGICAL HISTORY Procedure Laterality Date MATTRESS STRIPPER ICD (ICDCRT) 09/2015 FASCT PALM W/WO Z-PLASTY TISSUE REARGMT/SKN GRFT Left 04/04/2019 Left palmar fasciectomy HAND SURGERY HX 2014 detrupens contracture PAST SURGICAL HISTORY OF Right CMC arthroplasty PAST SURGICAL HISTORY OF percutaneous splenic artery aneurysm repair VASCULAR EMBOLIZATION OR OCCLUSION ARTERIAL RSANDI SOCIAL HISTORY Social History Tobacco Use Smoking status: Never Smokeless tobacco: Never Vaping Use Vaping Use: Never used Substance Use Topics Alcohol use: Yes Comment: rare use Drug use: No FAMILY HISTORY Problem Relation Age of Onset Stroke Mother Hypertension Mother Diabetes Mother Diabetes Father Ischemic Heart Disease Father ALLERGIES: ALLERGIES Allergen Reactions Lisinopril Cough CURRENT MEDICATIONS: carvedilol (COREG) 25 mg tabletTake 1 tablet by mouth twice daily.Disp: 180 tabletRfl: 3 sacubitril-valsartan (ENTRESTO) 49-51 mg tabletTake 1 tablet by mouth twice daily.Disp: 180 tabletRfl: 3 OTC NUTRITIONAL SUPPLEMENT2 tablets once daily. Nerve Renew Disp: Rfl: ZINC ACETATE ORALTake by mouth once daily.Disp: Rfl: MULTI-VITAMIN ORALTake by mouth.Disp: Rfl: nortriptyline (PAMELOR) 75 mg capsuleTake 1 capsule by mouth twice daily. Disp: Rfl: CHOLECALCIFEROL, VITAMIN D3, (VITAMIN D3 ORAL)Take 1,000 Units by mouth once daily. Disp: Rfl: Coenzyme Q10 (CO Q-10) 400 mg capTake 1 capsule by mouth once daily. Disp: Rfl: [id number]-F6-[id number] serr 1,500-400-100 mg-unit-mg tabTake 1 tablet by mouth once daily.Disp: Rfl: REVIEW OF SYSTEMS: ROS HEART FAILURE PATIENT ENTERED DATA: No flowsheet data found. PHQ-9 06/19/2017 Score 3 PROMIS Global Health - (T-Scores - the mean of general population = 50. Five points is a clinically meaningful difference.) 06/19/2017 03/04/2019 03/04/2019 Physical T-Score 47.7 - - Mental T-Score 53.3 50.8 50.8 PHYSICAL EXAMINATION: BP 174/82 (BP Site: Right Arm, BP Position: Sitting, BP Cuff Size: Regular Adult) Pulse 68 Resp 15 Ht 177.8 cm (5' 10") Wt 81.6 kg (180 lb) SpO2 98% BMI 25.83 kg/m? which is 2 lbs less than last visit. General: no distress, obese, accompanied by family Skin: No clubbing, no cyanosis. Eyes: Anicteric sclerae Neck: Neck veins are not distended, no carotid bruits Lungs: Chest clear to auscultation Heart: Rhythm: regular rate and rhythm, Rate: normal, no murmur Abdomen: No HSM, normal bowel sounds Extremities: No edema Labs on 10/26/2019: Na 140, K 4.0, BUN 18, Cr 1.1, WBC 32.6, hgb 12.4, plt 276 Component Latest Ref Rng AND Units 07/29/2020 Protein, Total 6.3 - 8.0 g/dL 5.8 (L) Albumin 3.9 - 4.9 g/dL 4.1 Calcium 8.5 - 10.2 mg/dL 9.4 Bilirubin, Total 0.2 - 1.3 mg/dL 0.3 Alkaline Phosphatase 38 - 113 U/L 88 AST 14 - 40 U/L 27 Glucose 74 - 99 mg/dL 96 BUN 9 - 24 mg/dL 36 (H) Creatinine 0.73 - 1.22 mg/dL 1.38 (H) Sodium 136 - 144 mmol/L 142 Potassium 3.7 - 5.1 mmol/L 4.7 Chloride 97 - 105 mmol/L 106 (H) CO2 22 - 30 mmol/L 28 Anion Gap 9 - 18 mmol/L 8 (L) ALT 10 - 54 U/L 19 eGFR- 60 eGFR-All Other Races . 49 Neut% % 17.0 Abs Neut (ANC) 1.45 - 7.50 k/uL 5.22 Lymph% % 81.0 Abs Lymph 1.00 - 4.00 k/uL 24.85 (H) Campbell% % 0.0 Abs Campbell <0.87 k/uL 0.00 Eosin% % 1.0 Abs Eosin <0.46 k/uL 0.31 Baso% % 1.0 Abs (more content not included)...[facility]01-23-2023 History of Present illness Narrative* Apple Barnett MD - 06/05/2022 2:37 PM EST Images from the original note were not included. Heart [facility] SECTION OF HEART FAILURE and CARDIAC TRANSPLANT MEDICINE OUTPATIENT VISIT DATE June 05, 2022 OUTPATIENT VISIT TYPE Established Patient PRIMARY CARE PHYSICIAN: Kenn Turcios NP [address] [place] [address] CHIEF COMPLAINT: HF f/u NURSING INTAKE (Patient s concerns and/or recent hospitalizations/ER visits): HF Nursing Assessment: Interim Hospitalizations and/or ER visits:no Chest Pain: no Skipping or irregular heartbeats: no Shortness of breath at rest: no Shortness of breath with activity: no Cough: yes Waking up in the middle of the night gasping for air: no Lightheadedness or dizziness: no Feeling like you are going to pass out: no Actually passing out: no Poor energy level: yes with age Unintentional weight gain: no Unintentional weight loss: no Swelling in your legs,feet, abdomen: no Filling up quickly when you eat: no HISTORY OF PRESENT ILLNESS: No new issues PAST MEDICAL HISTORY Diagnosis Date Chronic lymphocytic leukemia (HCC) HTN (hypertension) Liver cyst Non-ischemic cardiomyopathy (HCC) Peripheral neuropathy Prostate cancer (HCC) s/p external radiation. no resection Splenic artery aneurysm (HCC) Subdural hematoma (HCC) summer 2015, after heart stopped and fell, s/p evacuation Ventricular tachycardia (HCC) in 1983 and 2015 PAST SURGICAL HISTORY Procedure Laterality Date MATTRESS STRIPPER ICD (ICDCRT) 09/2015 FASCT PALM W/WO Z-PLASTY TISSUE REARGMT/SKN GRFT Left 04/04/2019 Left palmar fasciectomy HAND SURGERY HX 2014 detrupens contracture PAST SURGICAL HISTORY OF Right CMC arthroplasty PAST SURGICAL HISTORY OF percutaneous splenic artery aneurysm repair VASCULAR EMBOLIZATION OR OCCLUSION ARTERIAL RS&I SOCIAL HISTORY Social History Tobacco Use Smoking status: Never Smokeless tobacco: Never Vaping Use Vaping Use: Never used Substance Use Topics Alcohol use: Yes Comment: rare use Drug use: No FAMILY HISTORY Problem Relation Age of Onset Stroke Mother Hypertension Mother Diabetes Mother Diabetes Father Ischemic Heart Disease Father ALLERGIES: ALLERGIES Allergen Reactions Lisinopril Cough CURRENT MEDICATIONS: carvedilol (COREG) 25 mg tablet^Take 1 tablet by mouth twice daily.^Disp: 180 tablet^Rfl: 3 sacubitril-valsartan (ENTRESTO) 49-51 mg tablet^Take 1 tablet by mouth twice daily.^Disp: 180 tablet^Rfl: 3 OTC NUTRITIONAL SUPPLEMENT^2 tablets once daily. Nerve Renew ^Disp: ^Rfl: ZINC ACETATE ORAL^Take by mouth once daily.^Disp: ^Rfl: MULTI-VITAMIN ORAL^Take by mouth.^Disp: ^Rfl: nortriptyline (PAMELOR) 75 mg capsule^Take 1 capsule by mouth twice daily. ^Disp: ^Rfl: CHOLECALCIFEROL, VITAMIN D3, (VITAMIN D3 ORAL)^Take 1,000 Units by mouth once daily. ^Disp: ^Rfl: Coenzyme Q10 (CO Q-10) 400 mg cap^Take 1 capsule by mouth once daily. ^Disp: ^Rfl: hlhcmycuozk-Z7-Edjwoewdi serr 1,500-400-100 mg-unit-mg tab^Take 1 tablet by mouth once daily.^Disp:^Rfl: REVIEW OF SYSTEMS: ROS HEART FAILURE PATIENT ENTERED DATA: No flowsheet data found. PHQ-9 06/19/2017 Score 3 PROMIS Global Health - (T-Scores - the mean of general population = 50. Five points is a clinicallymeaningful difference.) 06/19/2017 03/04/2019 03/04/2019 Physical T-Score 47.7 - - Mental T-Score 53.3 50.8 50.8 PHYSICAL EXAMINATION: BP 174/82 (BP Site: Right Arm, BP Position: Sitting, BP Cuff Size: Regular Adult) Pulse 68 Resp15 Ht 177.8 cm (5' 10") Wt 81.6 kg (180 lb) SpO2 98% BMI 25.83 kg/m which is 2 lbs less than last visit. General: no distress, obese, accompanied by family Skin: No clubbing, no cyanosis. Eyes: Anicteric sclerae Neck: Neck veins are not distended, no carotid bruits Lungs: Chest clear to auscultation Heart: Rhythm: regular rate and rhythm, Rate: normal, no murmur Abdomen: No HSM, normal bowel sounds Extremities: No edema Labs on 10/26/2019: Na 140, K 4.0, BUN 18, Cr 1.1, WBC 32.6, hgb 12.4, plt 276 Component Latest Ref Rng & Units 07/29/2020 Protein, Total 6.3 - 8.0 g/dL 5.8 (L) Albumin 3.9 - 4.9 g/dL 4.1 Calcium 8.5 - 10.2 mg/dL 9.4 Bilirubin, Total 0.2 - 1.3 mg/dL 0.3 Alkaline Phosphatase 38 - 113 U/L 88 AST 14 - 40 U/L 27 Glucose 74 - 99 mg/dL 96 BUN 9 - 24 mg/dL 36 (H) Creatinine 0.73 - 1.22 mg/dL 1.38 (H) Sodium 136 - 144 mmol/L 142 Potassium 3.7 - 5.1 mmol/L 4.7 Chloride 97 - 105 mmol/L 106 (H) CO2 22 - 30 mmol/L 28 Anion Gap 9 - 18 mmol/L 8 (L) ALT 10 - 54 U/L 19 eGFR- 60 eGFR-All Other Races . 49 Neut% % 17.0 Abs Neut (ANC) 1.45 - 7.50 k/uL 5.22 Lymph% % 81.0 Abs Lymph 1.00 - 4.00 k/uL 24.85 (H) Campbell% % 0.0 Abs Campbell <0.87 k/uL 0.00 Eosin% % 1.0 Abs Eosin <0.46 k/uL 0.31 Baso% % 1.0 Abs Baso <0.11 k/uL 0.31 (H) ANC(includeSEG+BAND) k/uL 5.22 Anisocytosis Present Ovalocytes Few Platelet Estimate Platelet estimate adequate Diff Type Manual Diff WBC 3.70 - 11.00 k/uL 30.68 (H) RBC 4.20 - 6.00 m/uL 3.94 (L) Hemoglobin 13.0 - 17.0 g/dL 10.9 (L) Hematocrit 39.0 - 51.0 % 35.6 (L) MCV 80.0 - 100.0 fL 90.4 MCH 26.0 - 34.0 pG 27.7 MCHC 30.5 - 36.0 g/dL 30.6 RDW-CV 11.5 - 15.0 % 15.9 (H) Platelet Count 150 - 400 k/uL 245 MPV 9.0 - 12.7 fL 9.5 Absolute nRBC <0.01 k/uL <0.01 NT Pro BNP <450 pg/mL 661 (H) Labs Feb 2022 Alkphos 98, LDH 249, TC 45, TTG 110, LDL 147, Hgb a1C 6.2 Labs 05/24/22: WBC 52.9, hct 33.5, hgb 10.5, plt 221, TP 5.8, ALB 3.6, ALT 24, AST 22, Tbili 0.5, Ca9.3, Na 142, K 4.6, BUN 38, Cr 1.68, glucose 94, TSH 2.84, CARDIOVASCULAR MEDICINE TESTING: Echocardiogram 07/04/16 LVEF = 34 5% (2D biplane) (Visually EF appears <35%). Echo 11/23/17: LVEF = 45 5% (visual est.) Echo 02/17/21: - The left ventricle is normal in size. LVEF = 45 5% (visual est.) - The right ventricle normal in size. Right ventricular systolic function is low normal. SUZAN. The visualized aorta is borderline dilated with a maximal dimension of 3.8 cm. (2+) aortic valve regurgitation. There are nosignificant valvular abnormalities. Exam was compared with the prior echocardiographic exam performed on 11/23/2017. Similar findings. ICD check 06/05/2021: MULTICHAMBER ICD EVALUATION PRESENTS FOR: OPD with Dr. Barnett, routine device check and battery assessment PRESENTING EGM: -AP/ BiV pace UNDERLYING RHYTHM: sinus arrhythmia with CHB, no RV intrinsic at VVI 30 BATTERY STATUS: Estimated time remaining to CONNIE is 2 months, device is on advisory. Alert tone demonstrated. COUNTERS SINCE: 08/01/21 ATRIAL ARRHYTHMIAS: There were no triggered episodes of atrial high rates. VENTRICULAR ARRHYTHMIAS: There have been no ventricular detections since the last evaluation. LEAD MEASUREMENTS: RA sensing is stable, no RV intrinsic at VVI 30. Capture is appropriate. The pacing outputs maintain safety margin. Review of the lead impedance trends are normal. IMPLANT SITE/ SYMPTOMS: The incision and pocket are pain-free, well healed and without signs of erosion or infection. OTHER DIAGNOSTICS: RA pacing 25%/ BiV pacing 99%, VSR paced 0.2%, VS 0.8%. PROGRAMMING CHANGES MADE TODAY: none FOLLOW UP: Continue with q5 week remotes and routine evaluation. Irma Mahmood RN Abdominal CT 10/29/2017: No significant change in the vascular configuration. 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 The low-density lesions in the liver getting larger so a 3-phase CT of the liver is suggested. IMPRESSION Mr. Ann is a 81 year old male with a history of CLL, h/o prostate cancer treated withXRT, hypertension, LBBB, VT with syncope and non ischemic cardiomyopathy s/p BiV ICD in September 2015 when he was evaluated for heart failure. His admission in September of 2015 was associated with a drop in EFfrom 54% to 20% within a year in the setting of a syncopal event that was felt to be VT/VF. The etiology of this decline in EF is uncertain and may be due to tachycardia mediated due to VT, LBBB induced or viral/idiopathic. His coronary angiogram did not show obstructive coronary disease. Unfortunately, he developed a subdural hematoma, likely during the syncopal event, which required surgical drainage November 2015.Overall he has done well except for dizziness. These episodes are worse whenever his blood pressure medications are increased including Entresto. Also has poorly tolerated norvasc. Had both ENT and neuro evaluation which did not reveal another cause for dizziness. Fell on deck many months ago and on cement. Blood pressure today high in my office today abut patient had normal bloodpressure earlier and irritated about waiting long time. Left echo lab to come to my office and waited again (pager down). For now will not change antihypertensives given history of fall and increase in Entresto last visit. Currently euvolemic on examination today. Overall doing well but cholesterolhigh and not currently on lipitor. COVID Vaccine x 3. Recent flu vaccination with complication (weakness in legs x 1 day). Functional NYHA class II, Stage C. LVEF 45% I spent 30 minutes in this visit, with more than 50% of the time devoted to patient counseling. PLAN AND RECOMMENDATIONS: 1. Restart lipitor 20 mg daiy 2. Otherwise continue current medications. 3. Follow-up with me in 3 months with echo Apple Barnett MD June 05, 2022 3:57 PM CC MD Kenn Mensah NP ( ) documented in this encounterOhio[facility]11-21-2022 Miscellaneous Notes* Telephone Encounter - Jonas Castillo - 04/03/2022 9:21 AM EST Call from patient requesting refill. Requested Prescriptions Pending Prescriptions Disp Refills carvedilol (COREG) 25 mg tablet 180 tablet 3 Sig: Take 1 tablet by mouth twice daily. Patient last seen 02/20/22 Jonas Castillo documented in this encounterOhiohealth [facility]10-10-2022 History of Present illness Narrative* Apple Barnett MD - 02/20/2022 11:04 AM EDT Images from the original note were not included. Heart and Vascular [facility] SECTION OF HEART FAILURE and CARDIAC TRANSPLANT MEDICINE OUTPATIENT VISIT DATE February 20, 2022 OUTPATIENT VISIT TYPE Established Patient PRIMARY CARE PHYSICIAN: Kenn Turcios NP [address] [place], [place] [id number] CHIEF COMPLAINT: HF F/u NURSING INTAKE (Patient s concerns and/or recent hospitalizations/ER visits): HF Nursing Assessment: Interim Hospitalizations and/or ER visits:no Chest Pain: no Skipping or irregular heartbeats: no Shortness of breath at rest: no Shortness of breath with activity: no Cough: yes from dust Waking up in the middle of the night gasping for air: no Lightheadedness or dizziness: no Feeling like you are going to pass out: no Actually passing out: no Poor energy level: fair Unintentional weight gain: no Unintentional weight loss: no Swelling in your legs,feet, abdomen: no Filling up quickly when you eat: yes HISTORY OF PRESENT ILLNESS: No new issues PAST MEDICAL HISTORY Diagnosis Date Chronic lymphocytic leukemia (HCC) HTN (hypertension) Liver cyst Non-ischemic cardiomyopathy (HCC) Peripheral neuropathy Prostate cancer (HCC) s/p external radiation. no resection Splenic artery aneurysm (HCC) Subdural hematoma (HCC) summer 2015, after heart stopped and fell, s/p evacuation Ventricular tachycardia (HCC) in 1983 and 2015 PAST SURGICAL HISTORY Procedure Laterality Date MATTRESS STRIPPER ICD (ICDCRT) 09/2015 FASCT PALM W/WO Z-PLASTY TISSUE REARGMT/SKN GRFT Left 04/04/2019 Left palmar fasciectomy HAND SURGERY HX 2014 detrupens contracture PAST SURGICAL HISTORY OF Right CMC arthroplasty PAST SURGICAL HISTORY OF percutaneous splenic artery aneurysm repair VASCULAR EMBOLIZATION OR OCCLUSION ARTERIAL RS&I SOCIAL HISTORY Social History Tobacco Use Smoking status: Never Smokeless tobacco: Never Vaping Use Vaping Use: Never used Substance Use Topics Alcohol use: Yes Comment: rare use Drug use: No FAMILY HISTORY Problem Relation Age of Onset Stroke Mother Hypertension Mother Diabetes Mother Diabetes Father Ischemic Heart Disease Father ALLERGIES: ALLERGIES Allergen Reactions Lisinopril Cough CURRENT MEDICATIONS: carvedilol (COREG) 25 mg tablet Take 1 tablet by mouth twice daily. OTC NUTRITIONAL SUPPLEMENT 2 tablets once daily. Nerve Renew sacubitril-valsartan (ENTRESTO) 24-26 mg tablet Take 1 tablet by mouth twice daily. ZINC ACETATE ORAL Take by mouth once daily. MULTI-VITAMIN ORAL Take by mouth. nortriptyline (PAMELOR) 75 mg capsule Take 1 capsule by mouth twice daily. CHOLECALCIFEROL, VITAMIN D3, (VITAMIN D3 ORAL) Take 1,000 Units by mouth once daily. Coenzyme Q10 (CO Q-10) 400 mg cap Take 1 capsule by mouth once daily. ukozbavxuqf-[id number]-Zxkgowphm serr 1,500-400-100 mg-unit-mg tab Take 1 tablet by mouth once daily. REVIEW OF SYSTEMS: ROS HEART FAILURE PATIENT ENTERED DATA: No flowsheet data found. PHQ-9 06/19/2017 Score 3 PROMIS Global Health - (T-Scores - the mean of general population = 50. Five points is a clinicallymeaningful difference.) 06/19/2017 03/04/2019 03/04/2019 Physical T-Score 47.7 - - Mental T-Score 53.3 50.8 50.8 PHYSICAL EXAMINATION: BP 144/62 (BP Site: Left Arm, BP Position: Sitting, BP Cuff Size: Regular Adult) Pulse 63 Resp 15 Ht 177.8 cm (5' 10") Wt 82.6 kg (182 lb) SpO2 97% BMI 26.11 kg/m which is 3 lbs less thanlast visit. General: no distress, obese, accompanied by family Skin: No clubbing, no cyanosis. Eyes: Anicteric sclerae Neck: Neck veins are not distended, no carotid bruits Lungs: Chest clear to auscultation Heart: Rhythm: regular rate and rhythm, Rate: normal, no murmur Abdomen: No HSM, normal bowel sounds Extremities: No edema Labs on 10/26/2019: Na 140, K 4.0, BUN 18, Cr 1.1, WBC 32.6, hgb 12.4, plt 276 Component Latest Ref Rng & Units 07/29/2020 Protein, Total 6.3 - 8.0 g/dL 5.8 (L) Albumin 3.9 - 4.9 g/dL 4.1 Calcium 8.5 - 10.2 mg/dL 9.4 Bilirubin, Total 0.2 - 1.3 mg/dL 0.3 Alkaline Phosphatase 38 - 113 U/L 88 AST 14 - 40 U/L 27 Glucose 74 - 99 mg/dL 96 BUN 9 - 24 mg/dL 36 (H) Creatinine 0.73 - 1.22 mg/dL 1.38 (H) Sodium 136 - 144 mmol/L 142 Potassium 3.7 - 5.1 mmol/L 4.7 Chloride 97 - 105 mmol/L 106 (H) CO2 22 - 30 mmol/L 28 Anion Gap 9 - 18 mmol/L 8 (L) ALT 10 - 54 U/L 19 eGFR- 60 eGFR-All Other Races . 49 WBC 3.70 - 11.00 k/uL 30.68 (H) RBC 4.20 - 6.00 m/uL 3.94 (L) Hemoglobin 13.0 - 17.0 g/dL 10.9 (L) Hematocrit 39.0 - 51.0 % 35.6 (L) MCV 80.0 - 100.0 fL 90.4 MCH 26.0 - 34.0 pG 27.7 MCHC 30.5 - 36.0 g/dL 30.6 RDW-CV 11.5 - 15.0 % 15.9 (H) Platelet Count 150 - 400 k/uL 245 MPV 9.0 - 12.7 fL 9.5 Absolute nRBC <0.01 k/uL <0.01 NT Pro BNP <450 pg/mL 661 (H) CARDIOVASCULAR MEDICINE TESTING: Echocardiogram 07/04/16 LVEF = 34 5% (2D biplane) (Visually EF appears <35%). Echo 11/23/17: LVEF = 45 5% (visual est.) Echo 02/17/21: - The left ventricle is normal in size. LVEF = 45 5% (visual est.) - The right ventricle normal in size. Right ventricular systolic function is low normal. SUZAN. The visualized aorta is borderline dilated with a maximal dimension of 3.8 cm. (2+) aortic valve regurgitation. There are nosignificant valvular abnormalities. Exam was compared with the prior echocardiographic exam performed on 11/23/2017. Similar findings. ICD check 12/05/2021: MULTI LEAD ICD REMOTE EVALUATION: PRESENTING EGM: /BV BATTERY STATUS: Estimated time remaining to CONNIE is 7 months COUNTERS SINCE 10/17/2021 ATRIAL ARRHYTHMIAS: None VENTRICULAR ARRHYTHMIAS: There have been no ventricular detections. LEAD MEASUREMENTS: Sensing is appropriate. Review of the lead impedance trends are normal. OTHER DIAGNOSTICS: Total V pacing 99.2%, VSR paced 0.1%, VS 0.7%. FOLLOW UP: Continue q7 weeks remote transmissions and yearly in-clinic interrogations. Rina Shea RN Abdominal CT 10/29/2017: No significant change in the vascular configuration. 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 The low-density lesions in the liver getting larger so a 3-phase CT of the liver is suggested. IMPRESSION Mr. Ann is a 81 year old male with a history of CLL, h/o prostate cancer treated withXRT, hypertension, LBBB, VT with syncope and non ischemic cardiomyopathy s/p BiV ICD in September 2015 when he was evaluated for heart failure. His admission in September of 2015 was associated with a drop in EFfrom 54% to 20% within a year in the setting of a syncopal event that was felt to be VT/VF. The etiology of this decline in EF is uncertain and may be due to tachycardia mediated due to VT, LBBB induced or viral/idiopathic. His coronary angiogram did not show obstructive coronary disease. Unfortunately, he developed a subdural hematoma, likely during the syncopal event, which required surgical drainage November 2015.Overall he has done well except for dizziness. These episodes are worse whenever his blood pressure medications are increased including Entresto. Also has poorly tolerated norvasc. Had both ENT and neuro evaluation which did not reveal another cause for dizziness. Fell on deck many months ago and on cement. Blood pressure today high in my office today and last visit. Will try again to raise Entresto to next dose but if any dizziness will go back on lower dose. Currently euvolemic on examination today. Overall doing well. COVID Vaccine x 3 Functional NYHA class II, Stage C. LVEF 45% I spent 30 minutes in this visit, with more than 50% of the time devoted to patient counseling. PLAN AND RECOMMENDATIONS: 1. Increase Entresto to 49-51 mg twice daily. Othewise continue current medications. will callme one week after starting higher dose Entresto to make sure ok 2. Labs locally (done this am) 3. Follow-up with me in 3 months with echo and device check Apple Barnett MD February 20, 2022 11:36 AM CC MD Kenn Mensah NP ( ) [facility] History of Present illness Narrative* Apple Barnett MD - 08/18/2021 9:28 AM EDT Images from the original note were not included. Heart and Vascular [place] [facility] SECTION OF HEART FAILURE and CARDIAC TRANSPLANT MEDICINE OUTPATIENT VISIT DATE August 18, 2021 OUTPATIENT VISIT TYPE Established Patient PRIMARY CARE PHYSICIAN: Kenn Turcios NP [address] [place] [address] CHIEF COMPLAINT: HF f/u NURSING INTAKE (Patient s concerns and/or recent hospitalizations/ER visits): HF Nursing Assessment: Interim Hospitalizations and/or ER visits:no Chest Pain: no Skipping or irregular heartbeats: yes Shortness of breath at rest: no Shortness of breath with activity: no Cough: no Waking up in the middle of the night gasping for air: no Lightheadedness or dizziness: yes,when stand up to quickly Feeling like you are going to pass out: no Actually passing out: no Poor energy level: yes Unintentional weight gain: no Unintentional weight loss: no Swelling in your legs,feet, abdomen: no Filling up quickly when you eat: no HISTORY OF PRESENT ILLNESS: Overall doing well. Positional dizziness upon standing too fast. Biggest issue is increase in WBC from 20,000 to 40,000 being reviewed by oncology PAST MEDICAL HISTORY Diagnosis Date Chronic lymphocytic leukemia (HCC) HTN (hypertension) Liver cyst Non-ischemic cardiomyopathy (HCC) Peripheral neuropathy Prostate cancer (HCC) s/p external radiation. no resection Splenic artery aneurysm (HCC) Subdural hematoma (HCC) summer 2015, after heart stopped and fell, s/p evacuation Ventricular tachycardia (HCC) in 1983 and 2015 PAST SURGICAL HISTORY Procedure Laterality Date MATTRESS STRIPPER ICD (ICDCRT) 09/2015 FASCT PALM W/WO Z-PLASTY TISSUE REARGMT/SKN GRFT Left 04/04/2019 Left palmar fasciectomy HAND SURGERY HX 2014 detrupens contracture PAST SURGICAL HISTORY OF Right CMC arthroplasty PAST SURGICAL HISTORY OF percutaneous splenic artery aneurysm repair VASCULAR EMBOLIZATION OR OCCLUSION ARTERIAL RS&I SOCIAL HISTORY Social History Tobacco Use Smoking status: Never Smoker Smokeless tobacco: Never Used Vaping Use Vaping Use: Never used Substance Use Topics Alcohol use: Yes Comment: rare use Drug use: No FAMILY HISTORY Problem Relation Age of Onset Stroke Mother Hypertension Mother Diabetes Mother Diabetes Father Ischemic Heart Disease Father ALLERGIES: ALLERGIES Allergen Reactions Lisinopril Cough CURRENT MEDICATIONS: OTC NUTRITIONAL SUPPLEMENT 2 tablets once daily. Nerve Renew sacubitril-valsartan (ENTRESTO) 24-26 mg tablet Take 1 tablet by mouth twice daily. carvedilol (COREG) 25 mg tablet Take 1 tablet by mouth twice daily. ZINC ACETATE ORAL Take by mouth once daily. MULTI-VITAMIN ORAL Take by mouth. nortriptyline (PAMELOR) 75 mg capsule Take 1 capsule by mouth twice daily. CHOLECALCIFEROL, VITAMIN D3, (VITAMIN D3 ORAL) Take 1,000 Units by mouth once daily. Coenzyme Q10 (CO Q-10) 400 mg cap Take 1 capsule by mouth once daily. bkskizdsxlq-E1-lynqptiha serr (OSTEO BI-FLEX, 5-LOXIN,) 1,500-400-100 mg-unit-mg tab Take 1 tablet by mouth once daily. REVIEW OF SYSTEMS: ROS HEART FAILURE PATIENT ENTERED DATA: No flowsheet data found. PHQ-9 06/19/2017 Score 3 PROMIS Global Health - (T-Scores - the mean of general population = 50. Five points is a clinicallymeaningful difference.) 06/19/2017 03/04/2019 03/04/2019 Physical T-Score 47.7 - - Mental T-Score 53.3 50.8 50.8 PHYSICAL EXAMINATION: BP 157/78 (BP Site: Left Arm) Pulse 62 Ht 176.5 cm (5' 9.5") Wt 84.1 kg (185 lb 6.4 oz) SpO2 99% BMI 26.99 kg/m which is 7 lbs less than last visit. (blood pressure high due to parking issues at ) General: no distress, obese, accompanied by family Skin: No clubbing, no cyanosis. Eyes: Anicteric sclerae Neck: Neck veins are not distended, no carotid bruits Lungs: Chest clear to auscultation Heart: Rhythm: regular rate and rhythm, Rate: normal, no murmur Abdomen: No HSM, normal bowel sounds Extremities: No edema Labs on 10/26/2019: Na 140, K 4.0, BUN 18, Cr 1.1, WBC 32.6, hgb 12.4, plt 276 Component Latest Ref Rng & Units 07/29/2020 Protein, Total 6.3 - 8.0 g/dL 5.8 (L) Albumin 3.9 - 4.9 g/dL 4.1 Calcium 8.5 - 10.2 mg/dL 9.4 Bilirubin, Total 0.2 - 1.3 mg/dL 0.3 Alkaline Phosphatase 38 - 113 U/L 88 AST 14 - 40 U/L 27 Glucose 74 - 99 mg/dL 96 BUN 9 - 24 mg/dL 36 (H) Creatinine 0.73 - 1.22 mg/dL 1.38 (H) Sodium 136 - 144 mmol/L 142 Potassium 3.7 - 5.1 mmol/L 4.7 Chloride 97 - 105 mmol/L 106 (H) CO2 22 - 30 mmol/L 28 Anion Gap 9 - 18 mmol/L 8 (L) ALT 10 - 54 U/L 19 eGFR- 60 eGFR-All Other Races . 49 Neut% % 17.0 Abs Neut (ANC) 1.45 - 7.50 k/uL 5.22 Lymph% % 81.0 Abs Lymph 1.00 - 4.00 k/uL 24.85 (H) Campbell% % 0.0 Abs Campbell <0.87 k/uL 0.00 Eosin% % 1.0 Abs Eosin <0.46 k/uL 0.31 Baso% % 1.0 Abs Baso <0.11 k/uL 0.31 (H) ANC(includeSEG+BAND) k/uL 5.22 Anisocytosis Present Ovalocytes Few Platelet Estimate Platelet estimate adequate Diff Type Manual Diff WBC 3.70 - 11.00 k/uL 30.68 (H) RBC 4.20 - 6.00 m/uL 3.94 (L) Hemoglobin 13.0 - 17.0 g/dL 10.9 (L) Hematocrit 39.0 - 51.0 % 35.6 (L) MCV 80.0 - 100.0 fL 90.4 MCH 26.0 - 34.0 pG 27.7 MCHC 30.5 - 36.0 g/dL 30.6 RDW-CV 11.5 - 15.0 % 15.9 (H) Platelet Count 150 - 400 k/uL 245 MPV 9.0 - 12.7 fL 9.5 Absolute nRBC <0.01 k/uL <0.01 NT Pro BNP <450 pg/mL 661 (H) CARDIOVASCULAR MEDICINE TESTING: Echocardiogram 07/04/16 LVEF = 34 5% (2D biplane) (Visually EF appears <35%). Echo 11/23/17: LVEF = 45 5% (visual est.) Echo 02/17/21: - The left ventricle is normal in size. LVEF = 45 5% (visual est.) - The right ventricle normal in size. Right ventricular systolic function is low normal. SUZAN. The visualized aorta is borderline dilated with a maximal dimension of 3.8 cm. (2+) aortic valve regurgitation. There are nosignificant valvular abnormalities. Exam was compared with the prior echocardiographic exam performed on 11/23/2017. Similar findings. ICD check 08/18/2021: MULTI LEAD ICD EVALUATION PRESENTS FOR: appt with Dr. Katz PRESENTING EGM: AP//BiVP UNDERLYING RHYTHM: sinus arrhythmia with CHB, no RV intrinsic at VVI 40 BATTERY STATUS: Estimated time remaining to CONNIE is 11 months. COUNTERS SINCE 01/24/21: ATRIAL ARRHYTHMIAS: There were 0 triggered episodes of atrial high rates. VENTRICULAR ARRHYTHMIAS: There has been 1 NSVT detection since the last evaluation. LEAD MEASUREMENTS: Capture and RA sensing are appropriate, no RV intrinsic at VVI 40. The pacing outputs maintain safety margin. Review of the lead impedance trends are normal. IMPLANT SITE/ SYMPTOMS: The incision and pocket are pain-free, well healed and without signs of erosion or infection. No arm swelling, syncope, pre-syncope or device related pocket stimulation. OTHER DIAGNOSTICS: Total V pacing 99.2%, VSR paced <0.1%, VS 0.7%. PROGRAMMING CHANGES MADE TODAY: none FOLLOW UP: appt with Dr. Katz today, otherwise patient follows remotely every 7 weeks and routinely in clinic Abdominal CT 10/29/2017: No significant change in the vascular configuration. 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 The low-density lesions in the liver getting larger so a 3-phase CT of the liver is suggested. IMPRESSION Mr. Ann is a 81 year old male with a history of CLL, h/o prostate cancer treated withXRT, hypertension, LBBB, VT with syncope and non ischemic cardiomyopathy s/p BiV ICD in September 2015 when he was evaluated for heart failure. His admission in September of 2015 was associated with a drop in EFfrom 54% to 20% within a year in the setting of a syncopal event that was felt to be VT/VF. The etiology of this decline in EF is uncertain and may be due to tachycardia mediated due to VT, LBBB induced or viral/idiopathic. His coronary angiogram did not show obstructive coronary disease. Unfortunately, he developed a subdural hematoma, likely during the syncopal event, which required surgical drainage November 2015.Overall he has done well except for dizziness. These episodes are worse whenever his blood pressure medications are increased including Entresto. Also has poorly tolerated norvasc. Had both ENT and neuro evaluation which did not reveal another cause for dizziness. Fell on deck many months ago and on cement. Blood pressure today high in my office but patient upset about parking. Currently euvolemic on examination today. Overall doing well. COVID Vaccine x 3 Functional NYHA class II, Stage C. LVEF 45% I spent 30 minutes in this visit, with more than 50% of the time devoted to patient counseling. PLAN AND RECOMMENDATIONS: 1. Continue current medications 2. Follow-up with me in 6 months Apple Barnett MD August 18, 2021 10:10 AM CC MD Kenn Mensah NP ( ) documented [facility] this encounter[facility] History of Past illness Narrative* Problem Noted Date Resolved Date Hypertension 10/16/2014 10/06/2016 Overview: Continue home amlodipine and metoprolol documented as of this encounter (statuses as of 08/18/2021) [facility] of Past illness Narrative* Problem Noted Date Resolved Date Hypertension 10/16/2014 10/06/2016 Overview: Continue home amlodipine and metoprolol documented as of this encounter (statuses as of 10/18/2021) [facility] of Past illness Narrative* Problem Noted Date Resolved Date Hypertension 10/16/2014 10/06/2016 Overview: Continue home amlodipine and metoprolol documented as of this encounter (statuses as of 12/05/2021) [facility] of Past illness Narrative* Problem Noted Date Resolved Date Hypertension 10/16/2014 10/06/2016 Overview: Continue home amlodipine and metoprolol documented as of this encounter (statuses as of 02/20/2022) [facility] of Past illness Narrative* Problem Noted Date Resolved Date Hypertension 10/16/2014 10/06/2016 Overview: Continue home amlodipine and metoprolol documented as of this encounter (statuses as of 03/08/2022) [facility] of Past illness Narrative* Problem Noted Date Resolved Date Hypertension 10/16/2014 10/06/2016 Overview: Continue home amlodipine and metoprolol documented as of this encounter (statuses as of 04/03/2022) [address]05-2015 History of Past illness Narrative* Problem Noted Date Resolved Date Hypertension 10/16/2014 10/06/2016 Overview: Continue home amlodipine and metoprolol documented as of this encounter (statuses as of 04/19/2022) [facility] of [facility] illness Narrative* Problem Noted Date Resolved Date Hypertension 10/16/2014 10/06/2016 Overview: Continue home amlodipine and metoprolol documented as of this encounter (statuses as of 05/24/2022) [facility] of [facility] Narrative* Problem Noted Date Resolved Date Hypertension 10/16/2014 10/06/2016 Overview: Continue home amlodipine and metoprolol documented as of this encounter (statuses as of 06/05/2022) [facility] Narrative* Problem Noted Date Resolved Date Hypertension 10/16/2014 10/06/2016 Overview: Continue home amlodipine and metoprolol documented as of this encounter (statuses as of 06/06/2022) [facility] Narrative* Problem Noted Date Resolved Date Hypertension 10/16/2014 10/06/2016 Overview: Continue home amlodipine and metoprolol documented as of this encounter (statuses as of 06/07/2022) [facility] of [facility] Narrative* Problem Noted Date Resolved Date Hypertension 10/16/2014 10/06/2016 Overview: Continue home amlodipine and metoprolol documented as of this encounter (statuses as of 07/10/2022) [facility] Narrative* Problem Noted Date Resolved Date Hypertension 10/16/2014 10/06/2016 Overview: Continue home amlodipine and metoprolol documented as of this encounter (statuses as of 08/09/2022) [facility] Narrative* Problem Noted Date Resolved Date Hypertension 10/16/2014 10/06/2016 Overview: Continue home amlodipine and metoprolol documented as of this encounter (statuses as of 08/14/2022) [facility] Narrative* Problem Noted Date Resolved Date Hypertension 10/16/2014 10/06/2016 Overview: Continue home amlodipine and metoprolol documented as of this encounter (statuses as of 08/28/2022) [facility] Narrative* Problem Noted Date Resolved Date Hypertension 10/16/2014 10/06/2016 Overview: Continue home amlodipine and metoprolol documented as of this encounter (statuses as of 08/28/2022) [facility] Narrative* Problem Noted Date Resolved Date Hypertension 10/16/2014 10/06/2016 Overview: Continue home amlodipine and metoprolol documented as of this encounter (statuses as of 09/26/2022) [facility] Narrative* Problem Noted Date Resolved Date Hypertension 10/16/2014 10/06/2016 Overview: Continue home amlodipine and metoprolol documented as of this encounter (statuses as of 10/13/2022) [facility] Narrative* Problem Noted Date Resolved Date Hypertension 10/16/2014 10/06/2016 Overview: Continue home amlodipine and metoprolol documented as of this encounter (statuses as of 11/09/2022) [facility] Narrative* Problem Noted Date Resolved Date Hypertension 10/16/2014 10/06/2016 Overview: Continue home amlodipine and metoprolol documented as of this encounter (statuses as of 11/09/2022) [facility] Narrative* Problem Noted Date Diagnosed Date Resolved Date Hypertension 10/16/2014 10/06/2016 Overview: Continue home amlodipine and metoprolol documented as of this encounter (statuses as of 01/05/2023) [facility] Narrative* Problem Noted Date Diagnosed Date Resolved Date Hypertension 10/16/2014 10/06/2016 Overview: Continue home amlodipine and metoprolol documented as of this encounter (statuses as of 01/19/2023) [facility] Narrative* Problem Noted Date Diagnosed Date Resolved Date Hypertension 10/16/2014 10/06/2016 Overview: Continue home amlodipine and metoprolol documented as of this encounter (statuses as of 01/19/2023) [facility] Narrative* Problem Noted Date Diagnosed Date Resolved Date Hypertension 10/16/2014 10/06/2016 Overview: Continue home amlodipine and metoprolol documented as of this encounter (statuses as of 03/08/2023) [facility] Narrative* Problem Noted Date Diagnosed Date Resolved Date Hypertension 10/16/2014 10/06/2016 Overview: Continue home amlodipine and metoprolol documented as of this encounter (statuses as of 04/04/2023) [facility] Narrative* Problem Noted Date Diagnosed Date Resolved Date Hypertension 10/16/2014 10/06/2016 Overview: Continue home amlodipine and metoprolol documented as of this encounter (statuses as of 04/12/2023) [facility] Narrative* Problem Noted Date Diagnosed Date Resolved Date Hypertension 10/16/2014 10/06/2016 Overview: Continue home amlodipine and metoprolol documented as of this encounter (statuses as of 04/12/2023) [facility] Narrative* Problem Noted Date Diagnosed Date Resolved Date Hypertension 10/16/2014 10/06/2016 Overview: Continue home amlodipine and metoprolol documented as of this encounter (statuses as of 04/25/2023) [facility] Narrative* Problem Noted Date Diagnosed Date Resolved Date Hypertension 10/16/2014 10/06/2016 Overview: Continue home amlodipine and metoprolol documented as of this encounter (statuses as of 05/04/2023) [facility] Narrative* Problem Noted Date Diagnosed Date Resolved Date Hypertension 10/16/2014 10/06/2016 Overview: Continue home amlodipine and metoprolol documented as of this encounter (statuses as of 06/22/2023) [facility] Narrative* Problem Noted Date Diagnosed Date Resolved Date Hypertension 10/16/2014 10/06/2016 Overview: Continue home amlodipine and metoprolol documented as of this encounter (statuses as of 07/07/2023) [facility] Narrative* Problem Noted Date Diagnosed Date Resolved Date Hypertension 10/16/2014 10/06/2016 Overview: Continue home amlodipine and metoprolol documented as of this encounter (statuses as of 2023) [facility] Center[facility] Author Je Moralez [facility] August 10, 2023 1:38pm Note Date/Time August 10, 2023 1:3 8pm [facility] Medical Records Department [address] [place] [address] Counseling Note - Pharmacy 08/10/23 1337 MR#: [id number] Acct: [id number] Name: JAIME ANN MEHREEN Rep #:[id number] : 1940 83 From: Je Moralez PCP: RENETTA Justice Status:ADM IN Y Location: [place] [address] Pharmacy [facility] has performed discharge medication reconciliation and counseling for this patient. The patient's discharge medication list was reviewed for discrepancies and discrepancies were resolved. The patient was counseled on the following discharge medications and changes in medications for homegoing were reviewed. The Reason for Use, instructions for use, and potential side effects were reviewed for all new medications. The patient's questions regarding all of their medications were answered. 1. Furosemide 40 mg PO daily 2. Gabapentin 200 mg PO QHS The patient was able to verbally demonstrate an understanding of their dischargemedications. Medications at Discharge Home Medications cholecalciferol (vitamin D3) 25 mcg (1,000 unit) capsule (Vitamin D3) 50 mcg PO DAILY 08/09/16 carvedilol 25 mg tablet 25 mg PO BID 08/24/16 glucosamine 750 [id number] no1 644 mg-C 30 mg-jesus 1 mg tablet (Osteo Bi-Flex Triple Strength) 1 ea PO DAILY 08/24/16 sacubitril 49 mg-valsartan 51 mg tablet (Entresto) 1 tab PO BID 08/24/22 zinc acetate 50 mg (zinc) capsule 50 mg PO DAILY 08/24/22 atorvastatin 10 mg tablet 10 mg PO DAILY 03/04/23 tamsulosin 0.4 mg capsule 0.4 mg PO DAILY 30 days #30 caps 03/06/23 ondansetron 4 mg disintegrating tablet 4 mg PO Q6H PRN nausea and vomiting #10 tabs 03/15/23 polysaccharide iron complex 150 mg iron capsule (Ferrex) 150 mg PO DAILY #30 caps 03/20/23 multivitamin (Daily Multi-Vitamin tablet) 1 tab PO DAILY 08/07/23 potassium chloride 10 mEq capsule,extended release 10 meq PO DAILY 08/07/23 furosemide 40 mg tablet 40 mg PO DAILY #30 tabs 08/10/23 gabapentin 100 mg capsule 200 mg (2 x 100 mg) PO QHS #60 caps 08/10/23 08/10/23 1338 <Electronically signed by Je lopez> Date _ Je Valdovinosigner Signature (if applicable): Date CC: ~ Signed [facility] Work Phone: Discharge summary Author Laura Bowman [facility] March 08, 2023 3:40pm Note Date/Time March 08, 2023 3 :36pm [facility] Medical Records Department [address] [place] [address] Instructions for Home/Discharge Instructions 03/08/23 1535 MR#: [id number] Acct: [id number] Name: JAIME ANN Rep #:[id number] : 1940 82 From: Laura Bowman MD PCP: PO JusticeC Status:ADM IN Discharge Instructions Diet Discharge Diet: No restrictions Activity Discharge Activity: Use Walker Follow Up Care Test Results: Test results from this visit will be discussed in further detail at your follow- up appointment, if applicable. Discharge Plan Admission Admit Date/Time: 03/05/23 16:41 Primary Reason for Your Visit: Dizziness, urinary tract infection Attending Provider: Laura Bowman Primary Care Provider: Kenn Turcios NP Consulting Providers: Waylon Sanches Instructions Patient Instructions: Indwelling Urinary Catheter Dc, ED Fall Prevention Additional Instructions / Restrictions: DISCHARGE INSTRUCTIONS PLEASE READ *Please take this with you to your next doctors appointment* -You will be discharged on ciprofloxacin 250 mg every 12 hours, you will need 1 dose tonight and then twice daily for 6 more days -You will also be discharged on tamsulosin as well as iron supplementation -Please follow-up with urology upon discharge. Please call their office to schedule hospital follow-up appointment upon discharge. -Would recommend lab work (CBC and BMP) to check your white blood cell count andkidney function in 2 to 3 days through your primary care physician's office. Please call their office upon discharge to obtain order for lab work. -Resume Entresto in 1 week -You will be discharged with a prescription for outpatient vestibular rehab and balance therapy, also advised to use a walker -Would recommend against nortriptyline as it can contribute to orthostatic hypotension, urinary retention, confusion, and falls -May be beneficial to follow-up with your hematology doctor for your CLL if you have not followed with them recently -Please call your primary care provider's office upon discharge to schedule a hospital follow up within 1 week. -For any concerning signs or symptoms please call 911 or proceed to the nearest emergency department Discharge Orders/Prescriptions Prescriptions: New ciprofloxacin HCl [Cipro] 250 mg tablet 250 mg PO Q12H 7 Days Qty: 14 0RF Rx Instructions: Starting 03/07 polysaccharide iron complex [Ferrex 150] 150 mg iron Capsule 150 mg PO DAILY Qty: 30 0RF tamsulosin 0.4 mg Capsule 0.4 mg PO DAILY 30 Days Qty: 30 0RF Continued zinc acetate 50 mg (zinc) capsule 50 mg PO DAILY multivitamin [Daily Multiple] 1 EACH tablet 1 ea PO DAILY Patient Comments: SUPPLEMENT cholecalciferol (vitamin D3) [Vitamin D3] 1,000 UNIT capsule 1,000 unit PO DAILY carvedilol 25 MG tablet 25 mg PO BID Osteo Bi-Flex Triple Strength 1 EACH tablet 1 ea PO DAILY atorvastatin 10 mg tablet 10 mg PO DAILY Held Entresto 49-51 mg tablet 1 tab PO BID Hold Instructions: Resume on 03/15/23. Discontinued nortriptyline 50 mg capsule 50 mg PO BID Referrals / Follow Up: Janine Payne MD [Med Staff - Active Staff] - Within 1 Week (New urinary retention with Hood catheter placement) Kenn Turcios NP, GARNETT FEEDER-C [Primary Care Provider] - Within 1 Week Disposition Disposition (needs filled in before D/C Order can be placed): Home, Self Care 03/08/231539<Electronically signed by Laura Bowman MD>Laura Bowman MD CC: RYANN-C Kenn Turcios; Dr. Waylon Sanches, DO ~ Signed [facility] Work Phone: Discharge summary Author Laura Bowman [facility] March 08, 2023 3:45pm Note Date/Time March 08, 2023 3 :45pm [facility] Medical Records Department [address] [place] [address] Discharge Summary 03/08/231539 MR#: [id number] Acct: [id number] Name: JAIME ANN Rep #:[id number] : 1940 82 From: Laura Bowman MD PCP: RENETTA Justice Status:ADM IN Location: [facility] [id number] Providers Date of Admission: 03/05/23 Date of Discharge: 03/08/23 Primary Care Physician: RENETTA Justice Reason For Visit: ORTHOSTATIC HYPOTENSION Diagnosis Discharge Diagnosis (1) Orthostatic hypotension: Status: Acute Code(s): I95.1 - Orthostatic hypotension Plan 1. Dizziness, orthostatic hypotension, feeling of being off balance, likely component of inner ear pathology 2. AUGUSTO on CKD III with bilateral hydronephrosis secondary to urinary retention-improving 3. staph aureus UTI 4. CLL, leukocytosis 5. Heart failure with recovered ejection fraction 6. Multifactorial normocytic anemia 7. History of prostate cancer Medications at Discharge Home Medications multivitamin (Daily Multiple tablet) 1 ea PO DAILY 03/15/15 cholecalciferol (vitamin D3) 25 mcg (1,000 unit) capsule (Vitamin D3) 1,000 unitPO DAILY 08/09/16 carvedilol 25 mg tablet 25 mg PO BID 08/24/16 glucosamine 750 [id number] no1 644 mg-C 30 mg-jesus 1 mg tablet (Osteo Bi-Flex Triple Strength) 1 ea PO DAILY 08/24/16 sacubitril 49 mg-valsartan 51 mg tablet (Entresto) 1 tab PO BID 08/24/22 zinc acetate 50 mg (zinc) capsule 50 mg PO DAILY 08/24/22 atorvastatin 10 mg tablet 10 mg PO DAILY 03/04/23 ciprofloxacin HCl 250 mg tablet (Cipro) 250 mg PO Q12H 7 days #14 tabs 03/06/23 polysaccharide iron complex 150 mg iron capsule (Ferrex) 150 mg PO DAILY #30 caps 03/06/23 tamsulosin 0.4 mg capsule 0.4 mg PO DAILY 30 days #30 caps 03/06/23 Hospital Course Summary of Care Provided Minutes Spent on Discharge: 40 Hospital Course: JAIME ANN, is a 82 M with past medical history of heart failure with recovered ejection fraction, prostate cancer s/p radiation, iron deficiency anemia and CLL who presented to [facility] ED on 03/04/2023 withworsening dizziness. He was found to have orthostatic hypotension and AUGUSTO with additional concern for UTI. He had his home blood pressure medications held, IVfluids, was found to have Staph aureus UTI and retroperitoneal ultrasound demonstrated bladder stone and bilateral hydroureter and hydronephrosis. Patient had postvoid with retention and straight cath x1 and repeat in the evening showed continued retention, Hood placement with an additional 450 cc out, patient improved with Hood placement. Unclear if he had UTI leading to worsening urinary retention or if urinary retention led to UTI. We will start tamsulosin and continue to hold nortriptyline as this may cause or contribute tohis urinary retention, of note does have history of prostate cancer, will DC with Hood and advise close follow-up with urology for further eval and management. Patient was going to be discharged 03/06/2023 but reported continued feeling of being off balance despite no further significant orthostatic hypotension. Patient is very poor historian and had difficulty describing the feeling however after pinning it down it seemed like objects werespinning around in front of him and he would get nauseous and it was not associated with standing up and could happen when he turned his head or looked various directions. Given extent of his complaints MRI obtained which did not show acute infarct. On day of discharge patient reported that he was feeling better and was still having some of the episodes but they were decreasing in frequency, suspect this is inner ear pathology. Discussed with patient and wiferegarding plan and both verbalized understanding and were okay with discharge. Discharge instructions as follows: -You will be discharged on ciprofloxacin 250 mg every 12 hours, you will need 1 dose tonight and then twice daily for 6 more days -You will also be discharged on tamsulosin as well as iron supplementation -Please follow-up with urology upon discharge. Please call their office to schedule hospital follow-up appointment upon discharge. -Would recommend lab work (CBC and BMP) to check your white blood cell count andkidney function in 2 to 3 days through your primary care physician's office. Please call their office upon discharge to obtain order for lab work. -Resume Entresto in 1 week -You will be discharged with a prescription for outpatient vestibular rehab and balance therapy, also advised to use a walker -Would recommend against nortriptyline as it can contribute to orthostatic hypotension, urinary retention, confusion, and falls -May be beneficial to follow-up with your hematology doctor for your CLL if you have not followed with them recently -Please call your primary care provider's office upon discharge to schedule a hospital follow up within 1 week. -For any concerning signs or symptoms please call 911 or proceed to the nearest emergency department Physical Exam Narrative General: Alert, no acute distress HEENT: Atraumatic, normocephalic Eyes: Anicteric, normal conjunctiva, extraocular movements grossly intact Neck: Supple Respiratory: Clear to auscultation bilaterally, normal respiratory effort Cardiovascular: Regular rate GI: Soft, nontender, nondistended Extremities: No edema Musculoskeletal: Moving all extremities Neuro: No overt focal neurological deficits Skin: No rashes appreciated Psych: Cooperative Weight / BMI Weight Weight: 76 kg Body Mass Index (BMI) 25.4 ABG / Lab / Microbiology Data 03/08/23 07:20 03/08/23 07:20 Laboratory: Laboratory Results - last 24 hr 03/07/23 05:17: Diff Path Review Reviewed 03/08/23 07:20: WBC 60.2 H*, RBC 3.50 L, Hgb 9.1 L, Hct 30.1 L, MCV 86.0, MCH 26.0 L, MCHC 30.2 L, RDW Std Deviation 55.7 H, RDW Coeff of Willie 18.2 H, Plt Count 292, MPV 9.2, Immature Gran % (Auto) 0.500, Neut % (Auto) 11.5 L, Lymph % (Auto) 85.7 H, Campbell % (Auto) 1.7, Eos % (Auto) 0.4, Baso % (Auto) 0.2, Absolute Neuts (auto) 6.9, Absolute Lymphs (auto) 51.57 H, Nucleated RBC % 0, Differential Comment SCANNED, Diff Path Review May foll, Smudge Cells 1+ H, Sodium 143, Potassium 3.8, Chloride 110 H, Carbon Dioxide 26.0, Anion Gap 7, BUN29 H, Creatinine 1.75 H, Estim Creat Clear Calc 30.40, Est GFR (MDRD) Af Amer 48L, Est GFR (MDRD) Non-Af 40 L, BUN/Creatinine Ratio 16.6, Glucose 123 H, Calcium8.7 Microbiology: Microbiology 03/06/23 08:47 Blood Culture (Wb) - Anticubital Right Blood Culture - Preliminary No growth in 48 hours. 03/06/23 08:40 Blood Culture (Wb) - Anticubital Left Blood Culture - Preliminary No growth in 48 hours. 03/04/23 13:00 Urine, Clean Catch Urine Culture - Final Staphylococcus aureus Radiography Diagnostic Testing: Radiology Impression Brain MRI 03/08/23 09:30 IMPRESSION: No evidence for acute infarct or enhancing intracranial mass. Mild chronic involutional and white matter changes. Electronically Signed: Carmen Mukherjee MD at 11:49 EDT , D/C Instructions Discharge Diet: No restrictions Discharge Activity: Use Walker Meaningful Use Info Meaningful Use Diagnoses (Choose all that apply): None applicable Discharge Plan Admission Admit Date/Time: 03/05/23 16:41 Primary Reason for Your Visit: Dizziness, urinary tract infection Attending Provider: Laura Bowman Primary Care Provider: Kenn Turcios NP Consulting Providers: Waylon Sanches Instructions Patient Instructions: Indwelling Urinary Catheter Dc, ED Fall Prevention Additional Instructions / Restrictions: DISCHARGE INSTRUCTIONS PLEASE READ *Please take this with you to your next doctors appointment* -You will be discharged on ciprofloxacin 250 mg every 12 hours, you will need 1 dose tonight and then twice daily for 6 more days -You will also be discharged on tamsulosin as well as iron supplementation -Please follow-up with urology upon discharge. Please call their office to schedule hospital follow-up appointment upon discharge. -Would recommend lab work (CBC and BMP) to check your white blood cell count andkidney function in 2 to 3 days through your primary care physician's office. Please call their office upon discharge to obtain order for lab work. -Resume Entresto in 1 week -You will be discharged with a prescription for outpatient vestibular rehab and balance therapy, also advised to use a walker -Would recommend against nortriptyline as it can contribute to orthostatic hypotension, urinary retention, confusion, and falls -May be beneficial to follow-up with your hematology doctor for your CLL if you have not followed with them recently -Please call your primary care provider's office upon discharge to schedule a hospital follow up within 1 week. -For any concerning signs or symptoms please call 911 or proceed to the nearest emergency department Discharge Orders/Prescriptions Prescriptions: New ciprofloxacin HCl [Cipro] 250 mg tablet 250 mg PO Q12H 7 Days Qty: 14 0RF Rx Instructions: Starting 03/07 polysaccharide iron complex [Ferrex 150] 150 mg iron Capsule 150 mg PO DAILY Qty: 30 0RF tamsulosin 0.4 mg Capsule 0.4 mg PO DAILY 30 Days Qty: 30 0RF Continued zinc acetate 50 mg (zinc) capsule 50 mg PO DAILY multivitamin [Daily Multiple] 1 EACH tablet 1 ea PO DAILY Patient Comments: SUPPLEMENT cholecalciferol (vitamin D3) [Vitamin D3] 1,000 UNIT capsule 1,000 unit PO DAILY carvedilol 25 MG tablet 25 mg PO BID Osteo Bi-Flex Triple Strength 1 EACH tablet 1 ea PO DAILY atorvastatin 10 mg tablet 10 mg PO DAILY Held Entresto 49-51 mg tablet 1 tab PO BID Hold Instructions: Resume on 03/15/23. Discontinued nortriptyline 50 mg capsule 50 mg PO BID Referrals / Follow Up: Janine Payne MD [Med Staff - Active Staff] - Within 1 Week (New urinary retention with Hood catheter placement) Kenn Turcios NP, NP-C [Primary Care Provider] - Within 1 Week Disposition Disposition (needs filled in before D/C Order can be placed): Home, Self Care Charges/Coding Visit Charges Inpatient E&M: 52045 Disch Hosp >30min 03/08/23 1545 <Electronically signed by Laura Bowman MD> Cosigner Signature (if applicable): CC: RENETTA Turcios; Dr. Laura Bowman MD~ Signed [facility] Work Phone: Discharge summary Author Marco Antonio Recinos [facility] April 02, 2023 2:16pm Note Date/Time April 02, 2023 2:16pm [facility] Medical Records Department [facility] [place] [address] Instructions for Home/Discharge Instructions 04/02/23 1414 MR#: [id number] Acct: [id number] Name: JAIME ANN Rep #:[id number] : 1940 82 From: Marco Antonio Recinos DO PCP: RENETTA Justice Status:ADM STEVEN Discharge Instructions Diet Discharge Diet: No restrictions Activity Weight Bearing Status: Full weight bearing Follow Up Care Test Results: Test results from this visit will be discussed in further detail at your follow- up appointment, if applicable. Discharge Plan Admission Admit Date/Time: 03/31/23 16:10 Primary Reason for Your Visit: edema Attending Provider: Marco Antonio Recinos Primary Care Provider: Kenn Turcios NP Consulting Providers: Zari Jose; Yovani Soto Instructions Additional Instructions / Restrictions: With your safety associate as scheduled Weight yourself daily, if you gain more than 5 pounds per week, notify your safety associate Discharge Orders/Prescriptions Prescriptions: New furosemide [Lasix] 40 mg tablet 40 mg PO DAILY Qty: 30 0RF potassium chloride 20 mEq tablet extended release 20 meq PO DAILY Qty: 30 0RF Continued Entresto 49-51 mg tablet 1 tab PO BID Hold Instructions: Resume on 03/15/23. zinc acetate 50 mg (zinc) capsule 50 mg PO DAILY polysaccharide iron complex [Ferrex 150] 150 mg iron capsule 150 mg PO DAILY Qty: 30 1RF multivitamin [Daily Multiple] 1 EACH tablet 1 ea PO DAILY Patient Comments: SUPPLEMENT cholecalciferol (vitamin D3) [Vitamin D3] 1,000 UNIT capsule 50 mcg PO DAILY carvedilol 25 MG tablet 25 mg PO BID Osteo Bi-Flex Triple Strength 1 EACH tablet 1 ea PO DAILY atorvastatin 10 mg tablet 10 mg PO DAILY tamsulosin 0.4 mg Capsule 0.4 mg PO DAILY 30 Days Qty: 30 0RF ondansetron 4 mg tablet,disintegrating 4 mg PO Q6H PRN (Reason: nausea and vomiting) Qty: 10 0RF nortriptyline 50 mg capsule 50 mg PO BID Referrals / Follow Up: Kenn Turcios GARNETT FEEDER, GARNETT FEEDER-C [Primary Care Provider] - Within 2 Weeks Disposition Disposition (needs filled in before D/C Order can be placed): Home, Self Care 04/02/23 1416<Electronically signed by Marco Antonio Recinos DO>Marco Antonio Recinos DO CC: RENETTA Turcios; Dr. Zari Jose MD; Dr. Yovani Soto DO ~ Signed [facility] Work Phone: Evaluation + Plan note Future Appointments Appointment Date:11/15/2021 09:30:00 AM Scheduled Provider:KENN TURCIOS APRN-NURSING UNIT CLERK Location:[facility] Appointment Type:PC OV Follow Up Diagnostic Tests Pending * .CBC Path Review 08/17/21 [facility] Evaluation + Plan note Future Appointments Appointment Date:02/21/2022 11:30:00 AM Scheduled Provider:KENN TURCIOS Location:[facility] Appointment Type:PC OV Follow Up [facility] Evaluation + Plan note Future Appointments Appointment Date:01/25/2023 11:30:00 AM Scheduled Provider:KENN TURCIOS Location:[facility] Appointment Type:PC Wellness Medicare Future Scheduled Tests Laboratory* Iron Level 05/24/22 * Complete Metabolic Panel 05/24/22 [facility] Bocandyaluation + Plan note Future Appointments Appointment Date:11/09/2022 10:00:00 AM Scheduled Provider: Location:[facility] Appointment Type:US Renal Appointment Date:01/25/2023 11:30:00 AM Scheduled Provider:KENN TURCIOS Location:[facility] Appointment Type:PC Wellness Medicare Future Scheduled Tests Laboratory* Iron Level 05/24/22 * Complete Metabolic Panel 05/24/22 Radiology* US Renal 11/09/22 [facility] Bocandyaluation + Plan note Future Appointments Appointment Date:11/09/2022 10:00:00 AM Scheduled Provider: Location:[facility] Appointment Type:US Renal Appointment Date:01/25/2023 11:30:00 AM Scheduled Provider:KENN TURCIOS Location:[facility] Appointment Type:PC Wellness Medicare Diagnostic Tests Pending * GENESIS (serum) 10/31/22 * Protein Electrophoresis Urine 10/31/22 Future Scheduled Tests Laboratory* Iron Level 05/24/22 * Complete Metabolic Panel 05/24/22 Radiology* US Renal 11/09/22 [facility] evaluation + Plan note Future Appointments Appointment Date:02/20/2023 09:30:00 AM Scheduled Provider: Location:[facility] Appointment Type:US Renal Appointment Date:04/27/2023 10:00:00 AM Scheduled Provider:KENN TURCIOS Location:[facility] Appointment Type: OV Future Scheduled Tests Laboratory* Ferritin 01/26/23 * Iron Level 01/26/23 * Iron Level 05/24/22 * Complete Blood Count 01/26/23 * Complete Metabolic Panel 05/24/22 Radiology* US Renal 02/20/23 [facility] Evaluation + Plan note Future Appointments Appointment Date:04/27/2023 10:00:00 AM Scheduled Provider:KENN TURCIOS Location:[facility] Appointment Type:PC OV Future Scheduled Tests Laboratory* Ferritin 01/26/23 * Iron Level 01/26/23 * Iron Level 05/24/22 * Complete Blood Count 01/26/23 * Complete Metabolic Panel 05/24/22 [facility] Evaluation + Plan note Future Appointments Appointment Date:07/18/2023 10:30:00 AM Scheduled Provider:KENN TURCIOS Location:[facility] Appointment Type:PC OV Future Scheduled Tests Laboratory* Iron Level 05/24/22 * Complete Blood Count 01/26/23 * Complete Blood Count 03/26/23 [facility] Evaluation + Plan note Future Appointments Appointment Date:01/17/2024 10:30:00 AM Scheduled Provider:KENN TURCIOS Location:[facility] Appointment Type:PC OV Future Scheduled Tests Laboratory* Complete Blood Count 01/26/23 * Complete Blood Count 03/26/23 [facility] Evaluation + Plan note Future Appointments Appointment Date:01/17/2024 10:30:00 AM Scheduled Provider:KENN TURCIOS Location:[facility] Appointment Type:PC OV Future Scheduled Tests Laboratory* Complete Blood Count 03/26/23 [facility] evaluation + Plan note Future Appointments Appointment Date:11/27/2023 10:00:00 AM Scheduled Provider:KENN TURCIOS Location:[facility] Appointment Type:PC OV Appointment Date:01/17/2024 10:30:00 AM Scheduled Provider:KENN TURCIOS Location:[facility] Appointment Type:PC OV Diagnostic Tests Pending * .CBC Path Review 10/02/23 Future Scheduled Tests Laboratory* Complete Blood Count 03/26/23 [facility] Evaluation note* Diagnosis Chronic systolic (congestive) heart failure (HCC)- Primary Chronic systolic congestive heart failure (HCC) Chronic systolic heart failure LBBB (left bundle branch block) Other left bundle branch block Cardiomyopathy, nonischemic (HCC) Other primary cardiomyopathies VT (ventricular tachycardia) (HCC) Paroxysmal ventricular tachycardia Biventricular ICD (implantable cardioverter-defibrillator) in place Automatic implantable cardiac defibrillator in situ Essential hypertension Unspecified essential hypertension CLL (chronic lymphocytic leukemia) (HCC) Chronic lymphoid leukemia, without mention of having achieved remission History of prostate cancer Personal history of malignant neoplasm of prostate [facility] Diagnosis Chronic systolic (congestive) heart failure (HCC)- Primary ICD (implantable cardioverter-defibrillator) battery depletion Fitting and adjustment of automatic implantable cardiac defibrillator LBBB (left bundle branch block) Other left bundle branch block Cardiomyopathy, nonischemic (HCC) Other primary cardiomyopathies VT (ventricular tachycardia) Paroxysmal ventricular tachycardia Subdural hematoma Subdural hemorrhage CLL (chronic lymphocytic leukemia) (HCC) Chronic lymphoid leukemia, without mention of having achieved remission Biventricular ICD (implantable cardioverter-defibrillator) in place Automatic implantable cardiac defibrillator in situ Postural dizziness with presyncope Essential hypertension Unspecified essential hypertension History of prostate cancer Personal history of malignant neoplasm of prostate [facility] Diagnosis Chronic systolic (congestive) heart failure (HCC)- Primary ICD (implantable cardioverter-defibrillator) battery depletion Fitting and adjustment of automatic implantable cardiac defibrillator LBBB (left bundle branch block) Other left bundle branch block Subdural hematoma Subdural hemorrhage VT (ventricular tachycardia) Paroxysmal ventricular tachycardia Cardiomyopathy, nonischemic (HCC) Other primary cardiomyopathies CLL (chronic lymphocytic leukemia) (HCC) Chronic lymphoid leukemia, without mention of having achieved remission Biventricular ICD (implantable cardioverter-defibrillator) in place Automatic implantable cardiac defibrillator in situ History of prostate cancer Personal history of malignant neoplasm of prostate Essential hypertension Unspecified essential hypertension Biventricular cardiac pacemaker in situ Cardiac pacemaker in situ 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 documented in this encounter [facility] note* Diagnosis LBBB (left bundle branch block)- Primary Other left bundle branch block VT (ventricular tachycardia) ([facility]) Paroxysmal ventricular tachycardia NICM (nonischemic cardiomyopathy) ([facility]) Other primary cardiomyopathies Chronic systolic CHF (congestive heart failure) ([facility]) Chronic systolic heart failure LBBB (left bundle branch block) Other left bundle branch block Syncope and collapse documented in this encounter [facility] note* Diagnosis CHB (complete heart block) ([facility])- Primary Atrioventricular block, complete [facility] Diagnosis Onset Date Resolution Status Acute kidney injury acute Anemia acute Dizziness acute Fall acute Orthostatic hypotension acut e UTI (urinary tract infection) acute History of chronic lymphocytic leukemia [facility] Work Phone: Evaluation note* Diagnosis Onset Date Resolution Status Acute kidney injury acute Anemia acute Dizziness acute Fall acute Orthostatic hypotension acut e Urinary retention acute UTI (urinary tract infection) acute CKD (chronic kidney disease) chronic CLL (chronic lymphocytic leukemia) chronic History of chronic lymphocytic leukemia [facility] Work Phone: Evaluation note* Diagnosis Onset Date Resolution Status Acute kidney injury acute Anemia acute Dizziness acute Fall acute Orthostatic hypotension acut e Urinary retention acute UTI (urinary tract infection) acute CKD (chronic kidney disease) chronic CLL (chronic lymphocytic leukemia) chronic History of chronic lymphocytic leukemia chronic Acute kidney injury acute Anemia acute Dizziness acute Fall acute Orthostatic hypotension acut e Urinary retention acute UTI (urinary tract infection) acute CLL (chronic lymphocytic leukemia) chronic History of chronic lymphocytic leukemia chronic Prostate cancer [facility] Work Phone: Evaluation note* Diagnosis Onset Date Resolution Status Acute kidney injury acute Anemia acute Urinary retention acute UTI (urinary tract infection) acute CKD (chronic kidney disease) chronic History of chronic lymphocytic leukemia chronic Dizziness resolved Acute kidney injury acute Anemia acute Urinary retention acute UTI (urinary tract infection) acute History of chronic lymphocytic leukemia chronic Dizziness resolved Iron deficiency anemia acute Ventricular tachycardia 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 Bilateral lower extremity edema acute Edema of left upper extremity acute Bilateral lower extremity edema acute [facility] Work Phone: Evaluation note* Diagnosis Onset Date Resolution Status Acute kidney injury acute Anemia acute Urinary retention acute UTI (urinary tract infection) acute CKD (chronic kidney disease) chronic History of chronic lymphocytic leukemia chronic Dizziness resolved Acute kidney injury acute Anemia acute Urinary retention acute UTI (urinary tract infection) acute History of chronic lymphocytic leukemia chronic Dizziness resolved Iron deficiency anemia acute Ventricular tachycardia 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 Bilateral lower extremity edema acute Edema of left upper extremity acute Bilateral lower extremity edema acute HFrEF (heart failure with reduced ejection fraction) acute [facility] Work Phone: Evaluation note* Diagnosis HFrEF (heart failure with reduced ejection fraction) (HCC)- Primary Heart failure, unspecified [facility] Diagnosis Onset Date Resolution Status Acute kidney injury acute Anemia acute Urinary retention acute UTI (urinary tract infection) acute CKD (chronic kidney disease) chronic History of chronic lymphocytic leukemia chronic Dizziness resolved Acute kidney injury acute Anemia acute Urinary retention acute UTI (urinary tract infection) acute History of chronic lymphocytic leukemia chronic Dizziness resolved Iron deficiency anemia acute Edema of left upper extremity acute Bilateral lower extremity edema resolved Bilateral lower extremity edema resolved Ampullary carcinoma acute Iron deficiency anemia acute Ventricular tachycardia 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 Ampullary carcinoma acute Iron deficiency anemia acute [facility] Work Phone: Evaluation note* Diagnosis 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 [facility] Diagnosis 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 [facility] Diagnosis Onset Date Resolution Status Ampullary carcinoma acute Iron deficiency anemia acute Ampullary carcinoma acute Iron deficiency anemia acute Ampullary carcinoma acute Iron deficiency anemia acute Ventricular tachycardia 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 Ampullary carcinoma acute Iron deficiency anemia acute Hypoxemia acute Leukocytosis acute Acute exacerbation of CHF (congestive heart failure) chronic Personal history of chronic lymphocytic leukemia [facility] Work Phone: Evaluation note* Diagnosis Onset Date Resolution Status Ampullary carcinoma acute Iron deficiency anemia acute Ampullary carcinoma acute Iron deficiency anemia acute Ventricular tachycardia 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 Ampullary carcinoma acute Iron deficiency anemia acute Hypoxemia acute Leukocytosis acute Acute exacerbation of CHF (congestive heart failure) chronic Personal history of chronic lymphocytic leukemia chronic Dizziness acute Nausea & vomiting acute Weakness acute Chronic HFrEF (heart failure with reduced ejection fraction) [facility] Work Phone: Evaluation note* Diagnosis Onset Date Resolution Status Ampullary carcinoma acute Iron deficiency anemia acute Ampullary carcinoma acute Iron deficiency anemia acute Ventricular tachycardia 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 Ampullary carcinoma acute Iron deficiency anemia acute Leukocytosis acute Acute exacerbation of CHF (congestive heart failure) resolved Hypoxemia resolved Constipation acute Dizziness acute Hydronephrosis acute Nausea & vomiting acute Weakness acute Chronic HFrEF (heart failure with reduced ejection fraction) chronic [facility] Work Phone: History and physical note Author Yovani Soto [facility] August 07, 2023 3:58pm Note Date/Time August 07, 2023 3:5 3pm [facility] Medical Records Department [address] [place] [address] H&P Exam - Hospitalist 08/07/23 1548 MR#: [id number] Acct: [id number] Name: JAIME ANN Rep #:[id number] : [id number] 83 From: Yovani Soto DO PCP: RENETTA Justice Status:ADM IN Location: [place] [address] HPI - General General Date of Admission: 08/07/23 Date of Service: 08/07/23 Chief Complaint: shortness of breath. HPI Narrative JAIME ANN, is a 83 M who presents with shortness of breath. He states it began 2 weeks ago but the patient's daughter, is at bedside, stated that happened yesterday. Patient presented to the emergency room and his oxygen was okay but when he would move around in bed, dropped down to the 70s. Patient wassubsequent placed on oxygen. Denies any fever or chills. Denies any lower extremity edema. Patient had been on furosemide but had been stopped at some point by his primary care doctor. Reasoning for the discontinuation is unknown to the patient. Patient had a elevated BNP of 4000, D-dimer was elevated at 1.43. CTA of the chest showed bilateral pleural effusions and increased interstitial markings consistent with CHF. Patient did receive IV furosemide in the emergency room. [facility] Medical History Back pain due to injury CKD (chronic kidney disease), stage III CLL (chronic lymphocytic leukemia) Essential hypertension HFrEF (heart failure with reduced ejection fraction) High cholesterol Iron deficiency anemia LBBB (left bundle branch block) Non-ischemic cardiomyopathy Orthostatic hypotension Pacemaker Peripheral neuropathy Prostate cancer Restless leg syndrome Subdural hematoma Ventricular tachycardia Home Medications cholecalciferol (vitamin D3) 25 mcg (1,000 unit) capsule (Vitamin D3) 50 mcg PO DAILY 08/09/16 [History Last Taken 03/31/23] carvedilol 25 mg tablet 25 mg PO BID 08/24/16 [History Last Taken 03/04/23] glucosamine 750 [id number] no1 644 mg-C 30 mg-jesus 1 mg tablet (Osteo Bi-Flex Triple Strength) 1 ea PO DAILY 08/24/16 [History Last Taken 03/31/23] sacubitril 49 mg-valsartan 51 mg tablet (Entresto) 1 tab PO BID 08/24/22 [History Last Taken 03/31/23] zinc acetate 50 mg (zinc) capsule 50 mg PO DAILY 08/24/22 [History Last Taken 03/31/23] atorvastatin 10 mg tablet 10 mg PO DAILY 03/04/23 [History Last Taken 03/30/23] tamsulosin 0.4 mg capsule 0.4 mg PO DAILY 30 days #30 caps 03/06/23 [Rx Last Taken 03/31/23] ondansetron 4 mg disintegrating tablet 4 mg PO Q6H PRN nausea and vomiting #10 tabs 03/15/23 [Rx Last Taken Unknown] polysaccharide iron complex 150 mg iron capsule (Ferrex) 150 mg PO DAILY #30 caps 03/20/23 [Rx Last Taken 03/31/23] nortriptyline 50 mg capsule 50 mg PO BID neuropathy 03/31/23 [History Last Taken 03/31/23] multivitamin (Daily Multi-Vitamin tablet) 1 tab PO DAILY 08/07/23 [History Last Taken Unknown] potassium chloride 10 mEq capsule,extended release 10 meq PO DAILY 08/07/23 [History Last Taken Unknown] Allergy/AdvReac Type Severity Reaction Status Date / Time lisinopril AdvReac Unknown cough Verified 08/07/23 12:30 Family History Mother CVA (cerebral vascular accident) Hypertension Diabetes Father Ischemic heart disease Diabetes Surgical History Cardiac 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 therapy defibrillator (MATTRESS STRIPPER-D) in place (~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 No fever or chills. All review of systems were negative except as mentioned above in the history of present illness and the other reviewof systems. Vital Signs Vital Signs Vital Signs: 08/07/23 12:30 08/07/23 12:30 08/07/23 12:33 Temperature 36.0 C L 36.5 C L Temperature Source Temporal Oral Pulse Rate 95 93 95 Respiratory Rate 22 H 22 H 23 H Respiratory Effort Respiratory Depth Respiratory Pattern Blood Pressure 171/94 H 171/94 H 179/94 H Blood Pressure Mean 119 119 122 Pulse Ox 93 94 91 Oxygen Delivery Method Room Air Room Air Room Air 08/07/23 12:41 08/07/23 13:18 08/07/23 13:23 Temperature Temperature Source Pulse Rate 84 Respiratory Rate 22 H Respiratory Effort Normal Non-Labored Respiratory Depth Normal Respiratory Pattern Normal Tachypnea Blood Pressure Blood Pressure Mean Pulse Ox Oxygen Delivery Method Room Air Room Air 08/07/23 13:33 08/07/23 14:00 08/07/23 15:05 Temperature 36.6 C 36.6 C Temperature Source Oral Oral Pulse Rate 82 83 Respiratory Rate 23 H 17 24 H Respiratory Effort Respiratory Depth Respiratory Pattern Blood Pressure 157/87 H 161/85 H Blood Pressure Mean 110 108 Pulse Ox 94 92 79 Oxygen Delivery Method Room Air Room Air 08/07/23 15:40 Temperature 36.7 C Temperature Source Pulse Rate 81 Respiratory Rate 18 Respiratory Effort Respiratory Depth Respiratory Pattern Blood Pressure 159/93 H Blood Pressure Mean 115 Pulse Ox 98 Oxygen Delivery Method Weight Weight: 80.739 kg Body Mass Index (BMI) 25.5 Physical Exam Const alert and no apparent distress General Appearance: cooperative HEENT normocephalic and head/scalp atraumatic Eyes Eyes Narrative: No icterus Neck no lymphadenopathy Neck Narrative: No thyromegaly. Patient has loose skin on his I appreciate any JVD. Resp Resp Narrative: Bibasilar wheezes. Dullness percussion in the bases bilaterally. Cardio regular rate, regular rhythm, S1 normal heart sound and S2 normal heart sound GI normal to inspection, nondistended, normoactive bowel sounds, soft to palpation,non-tender and non-distended Extremity Extremity Narrative: Trace lower extremity edema. Skin Skin Narrative: No rashes or lesions. Neuro oriented x3 and moves all extremities Sensorium / Orientation: awake and alert Psych affect normal Results Lab / Micro Data Attestation: I reviewed the patient's lab results. 08/07/23 13:37 08/07/23 13:37 Labs: Laboratory Results - last 24 hr 08/07/23 13:37: WBC 55.2 H*, RBC 3.50 L, Hgb 9.2 L, Hct 30.7 L, MCV 87.7, MCH 26.3 L, MCHC 30.0 L, RDW Std Deviation 57.8 H, RDW Coeff of Willie 18.3 H, Plt Count 236, MPV 10.4, Immature Gran % (Auto) 0.400, Neut % (Auto) 11.0 L, Lymph %(Auto) 82.7 H, Campbell % (Auto) 5.2, Eos % (Auto) 0.4, Baso % (Auto) 0.3, Absolute Neuts (auto) 6.1, Absolute Lymphs (auto) 45.68 H, Nucleated RBC % 0, Differential Comment SCANNED, Diff Path Review May foll, Smudge Cells 2+, D-Dimer Quant (PE/DVT) 1.43 H*, Sodium 143, Potassium 4.5, Chloride 110 H, Carbon Dioxide 25.0, Anion Gap 8, BUN 44 H, Creatinine 1.91 H, Estim Creat Clear Calc 29.20, Est GFR (MDRD) Af Amer 43 L, Est GFR (MDRD) Non-Af 36 L, BUN/Creatinine Ratio 23.0 H, Glucose 121 H, Lactic Acid 0.9, Calcium 9.1, Troponin I High Sens 34, B-Natriuretic Peptide 4227.8 H Micro: Microbiology 08/07/23 13:20 Mucosa - Nose SARS-CoV-2, Influenza & RSV (PCR) - Final EKG Initial EKG: EKG Rhythm Intrepretation: Ventricular Paced Imaging Radiology Impression Chest X-Ray 08/07/23 13:30 IMPRESSION: Mild cardiomegaly and the vascular congestion with CHF. Blunting of both costophrenic angles. Electronically Signed: Gerson Watkins MD at 13:48 EDT , Chest CTA 08/07/23 14:28 IMPRESSION: No evidence of bone embolism. Small bilateral pleural effusions with bibasilar atelectasis with superimposed scarring. Mild degree of increased interstitial markings suggestive of CHF. Multiple hepatic cysts. Enlarged retroperitoneal lymph nodes. Electronically Signed: Gerson Watkins MD at 15:19 EDT , Assessment & Plan Assessment/Plan (1) Acute exacerbation of CHF (congestive heart failure): PLAN: Plan Acute heart failure with reduced ejection fraction * EF 30% from 2 echocardiogram from March 2023. * Appears that the patient's weight is gone up about 3 to 4 kg since March * Continue with IV furosemide. Continue with sacubitril/valsartan. Continue with carvedilol * Caution with kidney function. Chronic kidney disease stage IIIb * Creatinine seems to be better than it was back in April where his creatinine was 2.4 at that time. It is 1.91 today. I suspect his worsening kidney function was why his furosemide was discontinued previously. * Caution with the IV furosemide but patient also had contrast with a CT angiogram. Chronic complicating medical conditions: * CLL:Following with Dr. Bush, initially diagnosed in 2003 * Chronic normocytic anemia: Stable * Recent nephrolithiasis with BL hydronephrosis secondary to acute staphylococcal complicated urinary tract infection with acute urinary retention: Required transient Hood placement, continued on Flomax, status post cystoscopy with laser intervention as well as follow-up TURP discharged on ciprofloxacin. Follow up w * Hypertension: Continue home regimen including Entresto, Coreg * Hyperlipidemia: We will continue patient on statin * Prostate cancer: Follows with Dr. Bush and urology, diagnosed stage IIa prostate cancer in 2016 status post radiation therapy, received LHRH agonist not currently on any treatment, status post recent TURP as noted. * Orthostatic hypotension: Noted historically, encourage cautious positional changes especially given diuresis as noted above, not currently on any midodrine, closely monitor, PT/OT/case management consulted for discharge planning. VTE prophylaxis with enoxaparin CODE STATUS: Addressed with the patient and his family at bedside. Patient was to be full code. Charges/Coding Visit Charges Inpatient E&M: 10526 Init Hosp L3 08/07/23 1558 <Electronically signed by Yovani Soto DO> Cosigner Signature (if applicable): CC: RENETTA Turcios; Dr. Yovani Soto DO~ Signed [facility] Work Phone: Hospital course Narrative No data available for this section [facility] Hospital Discharge instructions No data available for this section [facility] Hospital Discharge instructionsAmbulatory Orders* General Surgery Location: None Selected [facility] Work Phone: Progress note No data available for this section [facility] Reason for referral (narrative)* Outpatient Procedure (Routine) - Pending Review Specialty Diagnoses / Procedures Referred By Contac t Referred To Contact [facility] Diagnoses Chronic systolic (congestive) heart failure (HCC) ICD (implantable cardioverter-defibrilla tor) battery depletion Procedures ECHO ECHO TTHRC R-T 2D W/WOM-MODE COMPL SPEC&COLR D Apple Barnett MD [address] [place] [address] [facility] [address] [address] Referral ID Status Reason Start Date Expiration Date Visits Requested Visits Authorized [id number] Pending Review Auto-Generat ed Referral 08/21/2022 02/20/2023 1 1 [facility] for referral (narrative)* Outpatient Procedure (Routine) - Pending Review Specialty Diagnoses / Procedures Referred By Contac t Referred To Contact [facility] Diagnoses HFrEF (heart failure with reduced ejection fraction) (HCC) Procedures ECHO ECHO TTHRC R-T 2D W/WOM-MODE COMPL SPEC&COLR D Apple Barnett MD [address] [place] [address] [address] Referral ID Status Reason Start Date Expiration Date Visits Requested Visits Authorized [id number] Pending Review Auto-Generat ed Referral 3 04/11/2024 1 1 * Outpatient Procedure (Routine) - Authorized Specialty Diagnoses / Procedures Referred By Contac t Referred To Contact [facility] Diagnoses HFrEF (heart failure with reduced ejection fraction) (HCC) Procedures ECG COMPLETE ECG ROUTINE ECG W/LEAST 12 LDS W/I&R Apple Barnett MD [address] [place] [address] [address] Referral ID Status Reason Start Date Expiration Date Visits Requested Visits Authorized [id number] Authorized Auto-Generat ed Referral 3 04/11/2024 1 1 [facility] for referral (narrative)* Outpatient Procedure (Routine) - Pending Review Specialty Diagnoses / Procedures Referred By Contac t Referred To Contact [facility] Diagnoses Ampullary carcinoma (HCC) Procedures EGD - THERAPEUTIC, EUS, OR TUBE INTERVENTIONS EGD INTRMURAL US NEEDLE ASPIRATE/BIOPSY ESOPHAGS Kate Aguirre MD [address] [address] [facility] Disease [address] [address] Referral ID Status Reason Start Date Expiration Date Visits Requested Visits Authorized [id number] Pending Review Auto-Generat ed Referral 3 05/03/2024 1 1 [facility] for referral (narrative)No reason for referral information [facility] Work Phone: Summary Purpose Family History Relationship Condition Age at Onset Recorded Date/T jahaira mother Cerebrovascular accident (CVA) Unknown Hypertension Unknown Diabetes mellitus Unknown father Ischemic heart disease Unknown Advance Directives Documents on File Type Date Recorded 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 Advance Directive(s) 09/22/2015 10:38 AM Advance Directive Response Recorded Date/ Time Advance Directives No September 20 2:18am Living Will No March 04 12:40pm Power of Global Ceo No March 04, 2023 12:40pm Advance Directive Response Recorded Date/ Time Name of Medical Power of Global Ceo Shruthi Oswal d March 04, 2023 3:08pm Advance Directives No September 20 2:18am Living Will Yes March 04 3:08pm Power of Global Ceo Yes March 04, 2023 3:08pm Advance Directive Response Recorded Date/ Time Name of Medical Power of Global Ceo Shruthi Oswal d March 04, 2023 3:08pm Name of Medical Power of Global Ceo Christine Ethan March 12, 2023 4:19pm Advance Directives No September 20 2:18am Living Will Yes March 12 4:19pm Power of Global Ceo Yes March 12, 2023 4:19pm Advance Directive Response Recorded Date/ Time Name of Medical Power of Global Ceo Shruthi Oswal d March 04, 2023 2:08pm Name of Medical Power of Global Ceo Christine Ethan March 12, 2023 3:19pm Name of Medical Power of Global Ceo CHRISTINE- March 31, 2023 2:52pm Advance Directives No September 20 1:18am Living Will Yes March 31, 2 023 2:52pm Power of Global Ceo Yes March 31, 2023 2:52pm Advance Directive Response Recorded Date/ Time Name of Medical Power of Global Ceo Shruthi Oswal d March 04, 2023 2:08pm Name of Medical Power of Global Ceo Christine Ethan March 12, 2023 3:19pm Name of Medical Power of Global Ceo CHRISTINE-MICKY March 31, 2023 5:20pm Advance Directives No September 20 6 1:18am Living Will Yes March 31 5:20pm Power of Global Ceo Yes March 31, 2023 5:20pm Advance Directive Response Recorded Date/ Time Name of Medical Power of Global Ceo christine ann August 07, 2023 12:42pm Advance Directives No September 20 2:18am Living Will Yes August 07, 2023 12:42pm Power of Global Ceo Yes August 06 12:42pm Advance Directive Response Recorded Date/ Time Name of Medical Power of Global Ceo christine ann August 07, 2023 4:29pm Advance Directives No September 20 2:18am Living Will Yes August 07, 2023 4:29pm Power of Global Ceo Yes August 06 4:29pm Advance Directive Response Recorded Date/ Time Name of Medical Power of Global Ceo christine ann August 07, 2023 4:29pm Name of Medical Power of Global Ceo RENUKA PAIGE ER August 16, 2023 12:17pm Advance Directives No September 20 2:18am Living Will Yes August 16, 2023 12:17pm Power of Global Ceo Yes August 15 12:17pm Advance Directive Response Recorded Date/ Time Name of Medical Power of Global Ceo christine ann August 07, 2023 4:29pm Name of Medical Power of Global Ceo Renuka Paige er August 16, 2023 4:26pm Advance Directives No September 20 2:18am Living Will Yes August 16, 2023 4:26pm Power of Global Ceo Yes August 15 4:26pm Advance Directive Response Recorded Date/ Time Living Will Yes November 17, 2015 8 :34am Power of Global Ceo Yes November 17, 2015 8:34am Advance Directives No September 20 6 2:18am Advance Directive Response Recorded Date/ Time Advance Directives No September 20 2:18am Chief Complaint Chief Complaint Description Start Date right hand Preliminary chief co mplaint data, not yet signed by the author as of Chief Complaint Description Start Date bilateral hand Preliminary chief co mplaint data, not yet signed by the author as of Assessments There may be information available, but it has not been provided by the sender.There may be information available, but it has not been provided by the sender. Review of System There may be information available, but it has not been provided by the sender.There may be information available, but it has not been provided by the sender. History of Present Illness There may be information available, but it has not been provided by the sender.There may be information available, but it has not been provided by the sender. Chief Complaint and Reason for Visit Chief Complaint ORTHOSTATIC HYPOTENS ION Reason for Visit Acute kidney injury Anemia Dizziness Fall Orthostatic hypotension UTI (urinary tract infection) History of chronic lymphocytic leukemia Chief Complaint ORTHOSTATIC HYPOTENS ION ORTHOSTATIC HYPOTENSION ORTHOSTATIC HYPOTENSION ORTHOSTATIC HYPOTENSION ORTHOSTATIC HYPOTENSION ORTHOSTATIC HYPOTENSION Reason for Visit Acute kidney injury Anemia Dizziness Fall Orthostatic hypotension Urinary retention UTI (urinary tract infection) CKD (chronic kidney disease) CLL (chronic lymphocytic leukemia) History of chronic lymphocytic leukemia Chief Complaint ORTHOSTATIC HYPOTENS ION ORTHOSTATIC HYPOTENSION ORTHOSTATIC HYPOTENSION ORTHOSTATIC HYPOTENSION ORTHOSTATIC HYPOTENSION ORTHOSTATIC HYPOTENSION NAUSEA,VOMITING,HYDRONEPHROSIS,FAILED THERAPY NAUSEA,VOMITING,HYDRONEPHROSIS,FAILED THERAPY NAUSEA,VOMITING,HYDRONEPHROSIS,FAILED THERAPY NAUSEA,VOMITING,HYDRONEPHROSIS,FAILED THERAPY NAUSEA,VOMITING,HYDRONEPHROSIS,FAILED THERAPY NAUSEA,VOMITING,HYDRONEPHROSIS,FAILED THERAPY NAUSEA,VOMITING,HYDRONEPHROSIS,FAILED THERAPY Reason for Visit Acute kidney injury Anemia Dizziness Fall Orthostatic hypotension Urinary retention UTI (urinary tract infection) CKD (chronic kidney disease) CLL (chronic lymphocytic leukemia) History of chronic lymphocytic leukemia Acute kidney injury Anemia Dizziness Fall Orthostatic hypotension Urinary retention UTI (urinary tract infection) CLL (chronic lymphocytic leukemia) History of chronic lymphocytic leukemia Prostate cancer Chief Complaint ORTHOSTATIC HYPOTENS ION ORTHOSTATIC HYPOTENSION ORTHOSTATIC HYPOTENSION ORTHOSTATIC HYPOTENSION ORTHOSTATIC HYPOTENSION ORTHOSTATIC HYPOTENSION NAUSEA,VOMITING,HYDRONEPHROSIS,FAILED THERAPY NAUSEA,VOMITING,HYDRONEPHROSIS,FAILED THERAPY NAUSEA,VOMITING,HYDRONEPHROSIS,FAILED THERAPY NAUSEA,VOMITING,HYDRONEPHROSIS,FAILED THERAPY PREOP NAUSEA,VOMITING,HYDRONEPHROSIS,FAILED THERAPY NAUSEA,VOMITING,HYDRONEPHROSIS,FAILED THERAPY NAUSEA,VOMITING,HYDRONEPHROSIS,FAILED THERAPY 1YR LABS ONC/HEM SWOLLEN RIGHT HAND PEIRPHERAL EDEMA, ? HF EXAC Reason for Visit Acute kidney injury Anemia Urinary retention UTI (urinary tract infection) CKD (chronic kidney disease) History of chronic lymphocytic leukemia Dizziness Acute kidney injury Anemia Urinary retention UTI (urinary tract infection) History of chronic lymphocytic leukemia Dizziness Iron deficiency anemia Ventricular tachycardia Bilateral lower extremity edema Edema of left upper extremity Bilateral lower extremity edema Chief Complaint ORTHOSTATIC HYPOTENS ION ORTHOSTATIC HYPOTENSION ORTHOSTATIC HYPOTENSION ORTHOSTATIC HYPOTENSION ORTHOSTATIC HYPOTENSION ORTHOSTATIC HYPOTENSION NAUSEA,VOMITING,HYDRONEPHROSIS,FAILED THERAPY NAUSEA,VOMITING,HYDRONEPHROSIS,FAILED THERAPY NAUSEA,VOMITING,HYDRONEPHROSIS,FAILED THERAPY NAUSEA,VOMITING,HYDRONEPHROSIS,FAILED THERAPY PREOP NAUSEA,VOMITING,HYDRONEPHROSIS,FAILED THERAPY NAUSEA,VOMITING,HYDRONEPHROSIS,FAILED THERAPY NAUSEA,VOMITING,HYDRONEPHROSIS,FAILED THERAPY 1YR LABS ONC/HEM SWOLLEN RIGHT HAND PEIRPHERAL EDEMA, ? HF EXAC PEIRPHERAL EDEMA, ? HF EXAC Reason for Visit Acute kidney injury Anemia Urinary retention UTI (urinary tract infection) CKD (chronic kidney disease) History of chronic lymphocytic leukemia Dizziness Acute kidney injury Anemia Urinary retention UTI (urinary tract infection) History of chronic lymphocytic leukemia Dizziness Iron deficiency anemia Ventricular tachycardia Bilateral lower extremity edema Edema of left upper extremity Bilateral lower extremity edema HFrEF (heart failure with reduced ejection fraction) Chief Complaint ORTHOSTATIC HYPOTENS ION ORTHOSTATIC HYPOTENSION ORTHOSTATIC HYPOTENSION ORTHOSTATIC HYPOTENSION ORTHOSTATIC HYPOTENSION ORTHOSTATIC HYPOTENSION NAUSEA,VOMITING,HYDRONEPHROSIS,FAILED THERAPY NAUSEA,VOMITING,HYDRONEPHROSIS,FAILED THERAPY NAUSEA,VOMITING,HYDRONEPHROSIS,FAILED THERAPY NAUSEA,VOMITING,HYDRONEPHROSIS,FAILED THERAPY PREOP NAUSEA,VOMITING,HYDRONEPHROSIS,FAILED THERAPY NAUSEA,VOMITING,HYDRONEPHROSIS,FAILED THERAPY NAUSEA,VOMITING,HYDRONEPHROSIS,FAILED THERAPY 1YR LABS SWOLLEN RIGHT HAND PEIRPHERAL EDEMA, ? HF EXAC PEIRPHERAL EDEMA, ? HF EXAC PEIRPHERAL EDEMA, ? HF EXAC 4 WEEKS, LABS ONC/HEM Malignant neoplasm of ampulla of Vater 1WK NO LABS REVIEW MRI Reason for Visit Acute kidney injury Anemia Urinary retention UTI (urinary tract infection) CKD (chronic kidney disease) History of chronic lymphocytic leukemia Dizziness Acute kidney injury Anemia Urinary retention UTI (urinary tract infection) History of chronic lymphocytic leukemia Dizziness Iron deficiency anemia Edema of left upper extremity Bilateral lower extremity edema Bilateral lower extremity edema Ampullary carcinoma Iron deficiency anemia Ventricular tachycardia Ampullary carcinoma Iron deficiency anemia Chief Complaint 4 WEEKS, LABS Malignant neoplasm of ampulla of Vater 1WK NO LABS REVIEW MRI 2WKS NO LABS REVIEW PET ONC/HEM 6WKS LABS(DO NOT WAIT FOR RESULTS) CHF EXAC CHF EXAC Reason for Visit Ampullary carcinoma Iron deficiency anemia Ampullary carcinoma Iron deficiency anemia Ampullary carcinoma Iron deficiency anemia Ventricular tachycardia Ampullary carcinoma Iron deficiency anemia Hypoxemia Leukocytosis Acute exacerbation of CHF (congestive heart failure) Personal history of chronic lymphocytic leukemia Chief Complaint 4 WEEKS, LABS Malignant neoplasm of ampulla of Vater 1WK NO LABS REVIEW MRI 2WKS NO LABS REVIEW PET ONC/HEM 6WKS LABS(DO NOT WAIT FOR RESULTS) CHF EXAC CHF EXAC CHF EXAC CHF EXAC CHF EXAC Reason for Visit Ampullary carcinoma Iron deficiency anemia Ampullary carcinoma Iron deficiency anemia Ampullary carcinoma Iron deficiency anemia Ventricular tachycardia Ampullary carcinoma Iron deficiency anemia Hypoxemia Leukocytosis Acute exacerbation of CHF (congestive heart failure) Personal history of chronic lymphocytic leukemia Chief Complaint Malignant neoplasm o f ampulla of Vater 1WK NO LABS REVIEW MRI 2WKS NO LABS REVIEW PET ONC/HEM 6WKS LABS(DO NOT WAIT FOR RESULTS) CHF EXAC CHF EXAC CHF EXAC CHF EXAC CHF EXAC Weakness N/V Reason for Visit Ampullary carcinoma Iron deficiency anemia Ampullary carcinoma Iron deficiency anemia Ventricular tachycardia Ampullary carcinoma Iron deficiency anemia Hypoxemia Leukocytosis Acute exacerbation of CHF (congestive heart failure) Personal history of chronic lymphocytic leukemia Dizziness Nausea & vomiting Weakness Chronic HFrEF (heart failure with reduced ejection fraction) Chief Complaint 1WK NO LABS REVIEW M RI 2WKS NO LABS REVIEW PET ONC/HEM 6WKS LABS(DO NOT WAIT FOR RESULTS) CHF EXAC CHF EXAC CHF EXAC CHF EXAC CHF EXAC Weakness N/V N/V N/V N/V N/V N/V Reason for Visit Ampullary carcinoma Iron deficiency anemia Ampullary carcinoma Iron deficiency anemia Ventricular tachycardia Ampullary carcinoma Iron deficiency anemia Leukocytosis Acute exacerbation of CHF (congestive heart failure) Hypoxemia Constipation Dizziness Hydronephrosis Nausea & vomiting Weakness Chronic HFrEF (heart failure with reduced ejection fraction) Chief Complaint Admit Date Pacer Check Remote April 20, 2024 1 2:34am ONC/HEM June 17, 2024 9 :00am Cough June 23, 2024 4:58pm 1 YEAR LABS PRIOR June 24, 2024 2:46pm H/O MASS OF [place] OF VATER June 6:45pm referred nanette July 10 10:00am 3WKS NO LABS REVIEW CT July 16, 2024 1 :58pm Reason for Visit Admit Date CLL (chronic lymphocytic leukemia) 2024 9:00am Ventricular tachycardia June 17 9:00am colonoscopy June 17, 2024 9 :00am Ampullary carcinoma June 24, 2024 2:46pm CLL (chronic lymphocytic leukemia) 2024 2:46pm Iron deficiency anemia June 24 2:46pm Prostate cancer June 24, 2024 2:46pm Non-ischemic cardiomyopathy June 10:00am Cardiac 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 th erapy defibrillator (MATTRESS STRIPPER-D) in place July 10, 2024 10:00am CKD (chronic kidney disease) July 102024 10:00am Dizziness July 10, 2024 10:00am Ampullary carcinoma July 16, 2024 1:58 pm CLL (chronic lymphocytic leukemia) July 16, 2024 1:58pm Iron deficiency anemia July 16, 2024 1 :58pm Chief Complaint Admit Date Cough June 23, 2024 4:58pm 1 YEAR LABS PRIOR June 24, 2024 2:46pm H/O MASS OF [place] OF [place] June 6:45pm Dr genevieve fitzpatrick July 10 10:00am 3WKS NO LABS REVIEW CT July 16, 2024 1 :58pm Pacer Check Remote July 19, 2024 10:0 1pm Pacer Check Remote September 04, 2024 9:0 0am Annual In-Clinic Check/Sees MH @ 11:30 A pril 2024 10:45am 6 M FU/Sees Zulma @ September 04, 2024 10 :46am E-ORDER September 04, 2024 12: 03pm 1 M FU October 02, 2024 11:24 am EORDERS October 13, 2024 12:43 pm Reason for Visit Admit Date Ampullary carcinoma June 24, 2024 2:46pm CLL (chronic lymphocytic leukemia) 2024 2:46pm Iron deficiency anemia June 24 2:46pm Prostate cancer June 24, 2024 2:46pm Non-ischemic cardiomyopathy June 10:00am Cardiac 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 th erapy defibrillator (MATTRESS STRIPPER-D) in place July 10, 2024 10:00am CKD (chronic kidney disease) July 102024 10:00am Dizziness July 10, 2024 10:00am Ampullary carcinoma July 16, 2024 1:58 pm CLL (chronic lymphocytic leukemia) July 16, 2024 1:58pm Iron deficiency anemia July 16, 2024 1 :58pm Non-ischemic cardiomyopathy September 04, 2024 10:45am Cardiac 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 th erapy defibrillator (MATTRESS STRIPPER-D) in place September 04, 2024 10:45am LBBB (left bundle branch block) September 042024 10:45am Ventricular tachycardia September 04, 2024 10:45am Anemia September 04, 2024 10: 46am Non-ischemic cardiomyopathy September 04, 2024 10:46am CLL (chronic lymphocytic leukemia) September 04, 2024 10:46am Dizziness September 04, 2024 10: 46am Anemia October 02, 2024 11:24 am Non-ischemic cardiomyopathy October 02 11:24am Cardiac 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 th erapy defibrillator (MATTRESS STRIPPER-D) in place October 02, 2024 11:24am Essential hypertension October 02, 2024 11 :24am Chief Complaint Admit Date Cough June 23, 2024 4:58pm 1 YEAR LABS PRIOR June 24, 2024 2:46pm H/O MASS OF [place] OF [place] June 6:45pm Dr genevieve fitzpatrick fu July 10 10:00am 3WKS NO LABS REVIEW CT July 16, 2024 1 :58pm Pacer Check Remote July 19, 2024 10:0 1pm Pacer Check Remote September 04, 2024 9:0 0am Annual In-Clinic Check/Sees MH @ 11:30 A pril 2024 10:45am 6 M FU/Sees Zulma @ 11 September 04, 2024 10 :46am E-ORDER September 04, 2024 12: 03pm 1 M FU October 02, 2024 11:24 am EORDERS October 13, 2024 12:43 pm See Clinical Notes October 20, 2024 1:52p m Reason for Visit Admit Date Ampullary carcinoma June 24, 2024 2:46pm CLL (chronic lymphocytic leukemia) Febru cesar 2024 2:46pm Iron deficiency anemia June 24 2:46pm Prostate cancer June 24, 2024 2:46pm Non-ischemic cardiomyopathy June 10:00am Cardiac 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 th erapy defibrillator (MATTRESS STRIPPER-D) in place July 10, 2024 10:00am CKD (chronic kidney disease) July 102024 10:00am Dizziness July 10, 2024 10:00am Ampullary carcinoma July 16, 2024 1:58 pm CLL (chronic lymphocytic leukemia) July 16, 2024 1:58pm Iron deficiency anemia July 16, 2024 1 :58pm Non-ischemic cardiomyopathy September 04, 2024 10:45am Cardiac 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 th erapy defibrillator (MATTRESS STRIPPER-D) in place September 04, 2024 10:45am LBBB (left bundle branch block) September 042024 10:45am Ventricular tachycardia September 04, 2024 10:45am Anemia September 04, 2024 10: 46am Non-ischemic cardiomyopathy September 04, 2024 10:46am CLL (chronic lymphocytic leukemia) September 04, 2024 10:46am Dizziness September 04, 2024 10: 46am Anemia October 02, 2024 11:24 am Non-ischemic cardiomyopathy October 02 11:24am Cardiac 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 th erapy defibrillator (MATTRESS STRIPPER-D) in place October 02, 2024 11:24am Essential hypertension October 02, 2024 11 :24am Anemia October 20, 2024 1:52p m Non-ischemic cardiomyopathy October 20 1:52pm Cardiac 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 th erapy defibrillator (MATTRESS STRIPPER-D) in place October 20, 2024 1:52pm Essential hypertension October 20, 2024 1: 52pm Reason for Referral Specialty Diagnoses / Procedures Referred By Carmen tucker Referred To Contact Procedures CARDIOVASCULAR MEDICINE OP FOLLOW UP APPT ORDER Apple Barnett MD [address] [place] [address] Referral ID Status Reason Start Date Expiration Date Visits Requested Visits Authorized [id number] Ref Not Required PCP Requested Referral 10/11/2023 04/11/2024 1 1 Additional Source Comments (unrecognized sect ion and content) No Status Records FoundNo Status Records FoundNo Status Records FoundNo Status Records FoundNo Status Records FoundNo Status Records FoundNo Status Records Found INFORMATION SOURCE (unrecogn ized section and content) DATE CREATED AUTHOR 11/02/2017 [facility] DATE CREATED AUTHOR AUTHOR'S ORGANIZ ATION 07/09/2020 [facility] DATE CREATED AUTHOR AUTHOR'S ORGANIZ ATION 04/28/2023 [facility] DATE CREATED AUTHOR AUTHOR'S ORGANIZ ATION 06/24/2023 [facility] DATE CREATED AUTHOR AUTHOR'S ORGANIZ ATION 12/04/2023 [facility] ([place] DATE CREATED AUTHOR AUTHOR'S ORGANIZ ATION 01/23/2024 [facility] DATE CREATED AUTHOR AUTHOR'S ORGANIZ ATION 10/18/2024 [facility] Reason for Visit (unrecogniz ed section and content) Reason For Visit Description New/Est - 1st visit with physician 09/25 Preliminary reason f or visit data, not yet signed by the author as of right hand Reason For Visit Description Start Date Follow-up by complaint Preliminary reason f or visit data, not yet signed by the author as of bilateral hand Reason Comments Follow Up Reason Comments Follow Up Reason Comments Rx Refills Reason Comments Medication Update Entresto 49-51mg Reason Comments Patient Question Device Alarming Reason Comments Schedule Surgery MATTRESS STRIPPER - D change Reason Comments CARD Follow Up Annual No new cardiac con cerns Reason Comments Patient Education Reason Comments device survey Reason Comments Patient Update Functional Skills Tutor - Other ICD settings Reason Comments Cardiology Follow Up F/U No cardiac issu es ROOM 10Possible dehydrated not enough water Reason Comments Received Outside Medical Records Medtron ic Cardiology Form Reason Comments Refill Request Reason Comments Established Patient Est patient here to follow up on EUS Care Team (unrecognized sect ion and content) Planner/Scheduler Relationship Specialty Start Date End Date Kenn Turcios, MARCK.NURSING UNIT CLERK [address] [place] [address] PCP - General Family Practice 09/02/18 Jenaro Hong Jr. [address] [facility] [address] [place] [phone] Physician Internal Medicine 12/29/19 Apple Barnett MD [address] [place] [address] Primary Staff Physician Cardiology 02/17/21 Planner/Scheduler Relationship Specialty Start Date End Date Kenn Turcios, BUYER ASSISTANT.[facility] [place] [address] PCP - General Family Practice 09/02/18 Jenaro Hong Jr. [address] [facility] [address] [place] [address] Physician Internal Medicine 12/29/19 Apple Barnett MD [address] [place] [address] Primary Staff Physician Cardiology 02/17/21 Planner/Scheduler Relationship Specialty Start Date End Date Kenn Turcios, BUYER ASSISTANT.[facility] [address] [place] [address] (Work) PCP - General Family Practice 09/02/18 Jenaro Hong Jr., MD [address] [address] Physician Internal Medicine 12/29/19 Apple Barnett MD [address] [place] [address] Primary Staff Physician Cardiology 02/17/21 Planner/Scheduler Relationship Specialty Start Date End Date Kenn Turcios, BUYER ASSISTANT.[facility] [address] [place] [address] PCP - General Family Medicine 09/02/18 Jenaro Hong Jr., MD [address] [address] Physician Internal Medicine 12/29/19 Apple Barnett MD [address] [place] [address] Primary Staff Physician Cardiology 02/17/21 Planner/Scheduler Relationship Specialty Start Date End Date Kenn Turcios, BUYER ASSISTANT.[facility] [address] [place] [address] (Work) PCP - General Family Medicine 09/02/18 Jenaro Hong Jr., MD [address] [address] Physician Internal Medicine 12/29/19 Apple Barnett MD [address] [place], [place] [id number] Primary Staff Physician Cardiology 02/17/21 Planner/Scheduler Relationship Specialty Start Date End Date Kenn Turcios, BUYER ASSISTANT.[facility] [address] [place] [address] PCP - General Family Medicine 09/02/18 Jenaro Hong Jr., MD [address] [address] Physician Internal Medicine 12/29/19 Apple Barnett MD [address] [place] [address] Primary Staff Physician Cardiology 02/17/21 Planner/Scheduler Relationship Specialty Start Date End Date Kenn Turcios, BUYER ASSISTANT.[facility] [address] [place] [address] (Work) PCP - General Family Medicine 09/02/18 Jenaro Hong Jr., MD [address] [facility] [address] [place] [address] Physician Internal Medicine 12/29/19 Apple Barnett MD [address] [place] [address] Primary Staff Physician Cardiology 02/17/21 Planner/Scheduler Relationship Specialty Start Date End Date Kenn Turcios, BUYER ASSISTANT.[facility] [address] [place] [address] PCP - General Family Medicine 09/02/18 Jenaro Hong Jr., MD [address] [facility] [address] [place] [address] Physician Internal Medicine 12/29/19 Apple Barnett MD [address] [place] [address] Primary Staff Physician Cardiology 02/17/21 Planner/Scheduler Relationship Specialty Start Date End Date Kenn Turcios, BUYER ASSISTANT.[facility] [address] [place] [address] PCP - General Family Medicine 09/02/18 Jenaro Hong Jr., MD [address] [facility] [address] [place] [address] Physician Internal Medicine 12/29/19 Apple Barnett MD [address] [place] [address] Primary Staff Physician Cardiology 02/17/21 Planner/Scheduler Relationship Specialty Start Date End Date Kenn Turcios, BUYER ASSISTANT.[facility] [address] [place] [address] PCP - General Family Medicine 09/02/18 Jenaro Hong Jr., MD [address] [facility] [address] [place] [address] Physician Internal Medicine 12/29/19 Apple Barnett MD [address] [place] [address] Primary Staff Physician Cardiology 02/17/21 Planner/Scheduler Relationship Specialty Start Date End Date Kenn Turcios, BUYER ASSISTANT.[facility] [address] [place] [address] PCP - General Family Medicine 09/02/18 Jenaro Hong Jr., MD [address] [facility] [address] [place] [address] Physician Internal Medicine 12/29/19 Apple Barnett MD [address] [place] [address] Primary Staff Physician Cardiology 02/17/21 Planner/Scheduler Relationship Specialty Start Date End Date Kenn Turcios, BUYER ASSISTANT.[facility] [address] [place] [address] PCP - General Family Medicine 09/02/18 Jenaro Hong Jr., MD [address] [address] Physician Internal Medicine 12/29/19 Apple Barnett MD [address] [place] [address] Primary Staff Physician Cardiology 02/17/21 Planner/Scheduler Relationship Specialty Start Date End Date Kenn Turcios, BUYER ASSISTANT.[facility] [address] [place] [address] PCP - General Family Medicine 09/02/18 Jenaro Hong Jr., MD [address] [facility] [address] [place] [address] Physician Internal Medicine 12/29/19 Apple Barnett MD [address] [place] [address] Primary Staff Physician Cardiology 02/17/21 Planner/Scheduler Relationship Specialty Start Date End Date Kenn Turcios, BUYER ASSISTANT.[facility] [address] [place] [address] PCP - General Family Medicine 09/02/18 Jenaro Hong Jr., MD [address] [facility] [address] [place] [address] Physician Internal Medicine 12/29/19 Apple Barnett MD [address] [place] [address] Primary Staff Physician Cardiology 02/17/21 Planner/Scheduler Relationship Specialty Start Date End Date Kenn Turcios, BUYER ASSISTANT.[facility] [address] [place] [address] PCP - General Family Medicine 09/02/18 Jenaro Hong Jr., MD [address] [facility] [address] [place] [address] Physician Internal Medicine 12/29/19 Apple Barnett MD [address] [place] [address] Primary Staff Physician Cardiology 02/17/21 Planner/Scheduler Relationship Specialty Start Date End Date Kenn Turcios, BUYER ASSISTANT.[facility] [address] [place] [address] PCP - General Family Medicine 09/02/18 Jenaro Hong Jr., MD [address] [facility] [address] [place] [phone] Physician Internal Medicine 12/29/19 Apple Barnett MD [address] [place] [address] Primary Staff Physician Cardiology 02/17/21 Planner/Scheduler Relationship Specialty Start Date End Date Kenn Turcios, BUYER ASSISTANT.NURSING UNIT CLERK [address] [place] [address] PCP - General Family Medicine 09/02/18 Jenaro Hong Jr., MD [address] [facility] [address] [place] [address] Physician Internal Medicine 12/29/19 Apple Barnett MD [address] [place], [place] [address] Primary Staff Physician Cardiology 02/17/21 Planner/Scheduler Relationship Specialty Start Date End Date Kenn Turcios, BUYER ASSISTANT.NURSING UNIT CLERK [address] [place] [address] PCP - General Family Medicine 09/02/18 Jenaro Hong Jr., MD [address] [facility] [address] [place] [address] Physician Internal Medicine 12/29/19 Apple Barnett MD [address] [place], [place] [address] Primary Staff Physician Cardiology 02/17/21 Planner/Scheduler Relationship Specialty Start Date End Date Kenn Turcios, BUYER ASSISTANT.NURSING UNIT CLERK [address] [place] [address] PCP - General Family Medicine 09/02/18 Jenaro Hong Jr., MD [address] [facility] [address] [place] [address] Physician Internal Medicine 12/29/19 Apple Barnett MD [address] [place] [address] Primary Staff Physician Cardiology 02/17/21 Team Status: Active Member Role Status Dates Kenn Turcios GARNETT FEEDER, GARNETT FEEDER-C Family Provider Active Kenn Balkacie GARNETT FEEDER, GARNETT FEEDER-C Primary Care Provider Active Team Status: Active Member Role Status Dates Kenn Turcios GARNETT FEEDER, GARNETT FEEDER-C Primary Care Provider Active Dr. Yovani Crenshaw , DO Emergency Provider Active Dr. Waylon Sanches , DO Admit Provider, Attending Provider Active Team Status: Active Member Role Status Dates Kenn Turcios GARNETT FEEDER, GARNETT FEEDER-C Primary Care Provider Active Dr. Yovani Crenshaw , DO Emergency Provider Active Dr. Waylon Sanches , DO Admit Provi edmund, Attending Provider, Other Provider Active Team Status: Active Member Role Status Dates Kenn Turcios GARNETT FEEDER, GARNETT FEEDER-C Primary Care Provider Active Dr. Yovani Crenshaw , DO Emergency Provider Active Dr. Waylon Sanches , DO Admit Provider, Other Pro vider Active Dr. Laura Bowman MD Attending Provider, Other Provid er Active Team Status: Inactive Member Role Status Dates Kenn Turcios GARNETT FEEDER, GARNETT FEEDER-C Primary Care Provider Active Dr. Yovani Crenshaw , DO Emergency Provider Active Dr. Waylon Sanches , DO Admit Provider, Other Pro vider Active Dr. Laura Bowman MD Attending Provider Active Team Status: Active Member Role Status Dates Kenn Turcios GARNETT FEEDER, GARNETT FEEDER-C Primary Care Provider Active Dr. Janine Payne MD Admit Provider, Other Prov ider Active Dr. Harpreet Hartman , DO Other Provider Active Dr. Braxton Powers MD Attending Provider, Other Provider Active Team Status: Active Member Role Status Dates Kenn Turcios GARNETT FEEDER, GARNETT FEEDER-C Primary Care Provider Active Dr. Janine Payne MD Admit Provider, Other Prov ider Active Dr. Harpreet Hartman , DO Other Provider Active Dr. Braxton Powers MD Other Provider Active Dr. Mehreen Cavazos MD Attending Provider, Other Provid er Active Team Status: Active Member Role Status Dates Kenn Turcios GARNETT FEEDER, GARNETT FEEDER-C Primary Care Provider Active Dr. Janine Payne MD Admit Provider, Other Prov ider Active Dr. Harpreet Hartman DO Attending Provider, Other Prov ider Active Dr. Braxton Powers MD Other Provider Active Dr. Mehreen Cavazos MD Other Provider Active Team Status: Active Member Role Status Dates Kenn Turcios GARNETT FEEDER, GARNETT FEEDER-C Primary Care Provider Active Dr. Harpreet Hartman DO Attending Provider Active Team Status: Inactive Member Role Status Dates Kenn Turcios GARNETT FEEDER, GARNETT FEEDER-C Primary Care Provider Active Dr. Janine Payne MD Admit Provider, Other Prov ider Active Dr. Harpreet Hartman DO Other Provider Active Dr. Braxton Powers MD Other Provider Active Dr. Mehreen Cavazos MD Attending Provider Active Team Status: Inactive Member Role Status Dates Kenn Turcios GARNETT FEEDER, GARNETT FEEDER-C Primary Care Provider, Referring Provider Active Dr. Ean Bush MD Attending Provider Active Team Status: Active Member Role Status Dates Kenn Turcios GARNETT FEEDER, GARNETT FEEDER-C Primary Care Provider Active Dr. Maria Esther Garza MD Attending Provider Activ e Dr. Mehreen Cavazos MD Referring Provider Active Team Status: Inactive Member Role Status Dates Kenn Turcios GARNETT FEEDER, GARNETT FEEDER-C Primary Care Provider, Referring Provider Active Raymon Mccann PA, PA Attending Provider Active Team Status: Active Member Role Status Dates Dr. Ean Bush MD Attending Provider Active Dr. Janine Payne MD Referring Provider Active Kenn Turcios GARNETT FEEDER, GARNETT FEEDER-C Primary Care Provider, Family Pro vider Active Team Status: Active Member Role Status Dates Kenn Turcios GARNETT FEEDER, GARNETT FEEDER-C Primary Care Provider Active Dr. Boston Jung MD Emergency Provider Active Dr. Zari Jose MD Admit Provider, Attending Prov ider Active Team Status: Active Member Role Status Dates Kenn Turcios GARNETT FEEDER, GARNETT FEEDER-C Primary Care Provider Active Dr. Boston Jung MD Emergency Provider Active Dr. Zari Jose MD Admit Provider, Other Provider Active Dr. Yovani Soto DO Attending Provider, Other Provid er Active Team Status: Active Member Role Status Dates Kenn Riccardo GARNETT FEEDER, GARNETT FEEDER-C Primary Care Provider Active Dr. Yovani Pierce MD Attending Provider Active Team Status: Active Member Role Status Dates Kenn Turcios GARNETT FEEDER, GARNETT FEEDER-C Primary Care Provider Active Dr. Sailaja Cuevas MD Attending Provider Active Team Status: Inactive Member Role Status Dates Kenn Turcios GARNETT FEEDER, GARNETT FEEDER-C Primary Care Provider Active Dr. Boston Jung MD Emergency Provider Active Dr. Zari Jose MD Admit Provider, Other Provider Active Dr. Marco Antonio Recinos , DO Attending Provider Active Dr. Yovani Soto , DO Other Provider Active Planner/Scheduler Relationship Specialty Start Date End Date Kenn Turcios CNP [address] [place] [address] PCP - General Family Medicine 09/02/18 Jenaro Hong Jr., MD [address] [address] Physician Internal Medicine 12/29/19 Apple Barnett MD [address] [place] [address] Primary Staff Physician Cardiology 02/17/21 Planner/Scheduler Relationship Specialty Start Date End Date Kenn Turcios CNP [address] [place] [address] PCP - General Family Medicine 09/02/18 Jenaro Hong Jr., MD [address] [address] Physician Internal Medicine 12/29/19 Apple Barnett MD [address] [place] [address] Primary Staff Physician Cardiology 02/17/21 Planner/Scheduler Relationship Specialty Start Date End Date Kenn Turcios CNP [address] [place] [address] PCP - General Family Medicine 09/02/18 Jenaro Hong Jr., MD [address] [address] Physician Internal Medicine 12/29/19 Apple Barnett MD [address] [place] [address] Primary Staff Physician Cardiology 02/17/21 Planner/Scheduler Relationship Specialty Start Date End Date Kenn Turcios CNP [address] [place] [address] PCP - General Family Medicine 09/02/18 Jenaro Hong Jr., MD [address] [address] Physician Internal Medicine 12/29/19 Apple Barnett MD [address] [place] [address] Primary Staff Physician Cardiology 02/17/21 Team Status: Active Member Role Status Dates Kenn Turcios GARNETT FEEDER, GARNETT FEEDER-C Primary Care Provider Active Dr. Janine Payne MD Admit Provider, Other Prov ider Active Dr. Harpreet Hartman DO Attending Provider, Other Prov ider Active Dr. Braxton Powers MD Other Provider Active Dr. Mehreen Cavazos MD Referring Provider, Other Provid er Active Team Status: Active Member Role Status Dates Kenn Turcios GARNETT FEEDER, GARNETT FEEDER-C Primary Care Provider Active Dr. Harpreet Hartman DO Attending Provider Active Dr. Mehreen Cavazos MD Referring Provider Active Team Status: Active Member Role Status Dates Kenn Turcios GARNETT FEEDER, GARNETT FEEDER-C Primary Care Provider Active Dr. Yovani Pierce MD Attending Provider Active Dr. Zari Jose MD Referring Provider Active Team Status: Active Member Role Status Dates Kenn Turcios GARNETT FEEDER, GARNETT FEEDER-C Primary Care Provider Active Dr. Boston Jung MD Emergency Provider Active Dr. Zari Jose MD Admit Provider, Other Provider Active Dr. Marco Antonio Recinos , DO Attending Provider, Other Pro vider Active Dr. Yovani Soto , DO Other Provider Active Team Status: Inactive Member Role Status Dates Kenn Turcios GARNETT FEEDER, GARNETT FEEDER-C Primary Care Provider Active Dr. Ean Bush MD Attending Provider, Referring Pro vider Active Planner/Scheduler Relationship Specialty Start Date End Date Kenn Turcios CNP [address] [place] [address] PCP - General Family Medicine 09/02/18 Jenaro Hong Jr., MD [address] [address] Physician Internal Medicine 12/29/19 Apple Barnett MD [address] [place] [address] Primary Staff Physician Cardiology 02/17/21 Planner/Scheduler Relationship Specialty Start Date End Date Kenn Turcios CNP [address] [place] [address] PCP - General Family Medicine 09/02/18 Jenaro Hong Jr., MD [address] [address] Physician Internal Medicine 12/29/19 Apple Barnett MD [address] [place] [address] Primary Staff Physician Cardiology 02/17/21 Planner/Scheduler Relationship Specialty Start Date End Date Kenn Turcios CNP [address] [place] [id number] PCP - General Family Medicine 09/02/18 Jenaro Hong Jr., MD [address] [facility] [address] [place] [phone] Physician Internal Medicine 12/29/19 Apple Barnett MD [address] [place] [address] Primary Staff Physician Cardiology 02/17/21 Planner/Scheduler Relationship Specialty Start Date End Date Kenn Turcios CNP [address] [place] [id number] PCP - General Family Medicine 09/02/18 Jenaro Hong Jr., MD [address] [facility] [address] [place] [phone] Physician Internal Medicine 12/29/19 Apple Barnett MD [address] [place] [address] Primary Staff Physician Cardiology 02/17/21 Team Status: Active Member Role Status Dates Kenn Turcios GARNETT FEEDER, GARNETT FEEDER-C Primary Care Provider Active Dr. Ian Lujan DO Emergency Provider Active Dr. Yovani Soto DO Admit Provider, Attending Provid er, Other Provider Active Team Status: Active Member Role Status Dates Kenn Turcios GARNETT FEEDER, GARNETT FEEDER-C Primary Care Provider Active Dr. Ian Lujan DO Emergency Provider Active Dr. Yovani Soto DO Admit Provider, Attending Provid er Active Team Status: Active Member Role Status Dates Kenn Turcios GARNETT FEEDER, GARNETT FEEDER-C Primary Care Provider Active Dr. Keyana Pal MD Attending Provider Active Team Status: Active Member Role Status Dates Kenn Turcios GARNETT FEEDER, GARNETT FEEDER-C Primary Care Provider Active Dr. Ian Lujan DO Emergency Provider Active Dr. Yovani Jopperi , DO Admit Provider, Other Provider A ctive Dr. Kate Horton , DO Attending Provider, Other Provide r Active Team Status: Inactive Member Role Status Dates Kenn Turcios GARNETT FEEDER, GARNETT FEEDER-C Primary Care Provider Active Dr. Ian Lujan , DO Emergency Provider Active Dr. Yovani Soto , DO Admit Provider, Other Provider A ctive Dr. Kate Horton , DO Attending Provider Active Team Status: Active Member Role Status Dates Kenn Turcios GARNETT FEEDER, GARNETT FEEDER-C Primary Care Provider Active Dr. Latesha Heredia MD Emergency Provider Active Dr. Lamont Castillo MD Attending Provider Active Team Status: Active Member Role Status Dates Kenn Turcios GARNETT FEEDER, GARNETT FEEDER-C Primary Care Provider, Attending Provider Active Team Status: Active Member Role Status Dates Kenn Arriagakacie GARNETT FEEDER, GARNETT FEEDER-C Primary Care Provider Active Dr. Latesha Heredia MD Emergency Provider Active Dr. Lamont Castillo MD Admit Provider, Attending Provi edmund Active Team Status: Active Member Role Status Dates Kenn Turcios GARNETT FEEDER, GARNETT FEEDER-C Primary Care Provider Active Dr. Latesha Heredia MD Emergency Provider Active Dr. Lamont Castillo MD Admit Provider, Other Provider Active Dr. Waylon Sanches , DO Attending Provider, Other Provider Active Dr. Harpreet Hartman , DO Other Provider Active Team Status: Active Member Role Status Dates Kenn Riccardo GARNETT FEEDER, GARNETT FEEDER-C Primary Care Provider Active Dr. Latesha Heredia MD Emergency Provider Active Dr. Lamont Castillo MD Admit Provider, Other Provider Active Dr. Waylon Sanches , DO Other Provider Active Dr. Harpreet Hartman , DO Attending Provider, Other Prov ider Active Team Status: Active Member Role Status Dates Kenn Turcios GARNETT FEEDER, GARNETT FEEDER-C Primary Care Provider Active Dr. Latesha Heredia MD Emergency Provider Active Dr. Lamont Castillo MD Admit Provider, Other Provider Active Dr. Harpreet Hartman , DO Other Provider Active Dr. Kate Horton , DO Attending Provider, Other Provide r Active Dr. Waylon Sanches , DO Other Provider Active Team Status: Inactive Member Role Status Dates Kenn Turcios GARNETT FEEDER, GARNETT FEEDER-C Primary Care Provider Active Dr. Latesha Heredia MD Emergency Provider Active Dr. Lamont Castillo MD Admit Provider, Other Provider Active Dr. Harpreet Hartman , DO Other Provider Active Dr. Kate Horton , DO Attending Provider Active Dr. Waylon Sanches , DO Other Provider Active Planner/Scheduler Relationship Specialty Start Date End Date eKnn Turcios CNP [address] [place] [id number] PCP - General Family Medicine 09/02/18 Jenaro Hong Jr., MD [address] [facility] [address] [place] [address] Physician Internal Medicine 12/29/19 Apple Barnett MD [address] [place] [address] Primary Staff Physician Cardiology 02/17/21 Planner/Scheduler Relationship Specialty Start Date End Date Kenn Turcios CNP [address] [place] [id number] PCP - General Family Medicine 09/02/18 Jenaro Hong Jr., MD [address] [facility] [address] [place] [address] Physician Internal Medicine 12/29/19 Apple Barnett MD [address] [facility] [place] [address] Primary Staff Physician Cardiology 02/17/21 Team Status: Active Member Role Status Dates Leona Parra MD Primary Care Provider Active Team Status: Inactive Member Role Status Dates Kenn Turcios GARNETT FEEDER, GARNETT FEEDER-C Primary Care Provider Active Start: April 07, 2024 End: April 07, 2024 Dr. Janine Payne MD Attending Provider Active Start: April 07, 2024 End: April 07, 2024 Dr. Janine Payne MD Referring Provider Active Start: April 07, 2024 End: April 07, 2024 Team Status: Inactive Member Role Status Dates Kenn Turcios GARNETT FEEDER, GARNETT FEEDER-C Primary Care Provider Active Start: April 20, 2024 End: April 20, 2024 Dr. Juan Banegas MD Attending Provider Active S tart: April 20, 2024 End: April 20, 2024 Team Status: Active Member Role Status Dates Dr. Ean Bush MD Attending Provider Active S tart: June 17, 2024 Dr. Janine Payne MD Referring Provider Active Start: June 17, 2024 Kenn Turcios GARNETT FEEDER, GARNETT FEEDER-C Primary Care Provider Active Start: June 17, 2024 Kenn Turcios GARNETT FEEDER, GARNETT FEEDER-C Family Provider Active Star t: June 17, 2024 Team Status: Inactive Member Role Status Dates Leona Parra MD Primary Care Provider Active St art: June 23, 2024 End: June 23, 2024 Leona Parra MD Attending Provider Active Start : June 23, 2024 End: June 23, 2024 Leona Parra MD Referring Provider Active Start : June 23, 2024 End: June 23, 2024 Team Status: Inactive Member Role Status Dates Sherri Portillo NP, GARNETT FEEDER-C Attending Provider Active Start: June 24, 2024 End: June 24, 2024 Leona Parra MD Primary Care Provider Active St art: June 24, 2024 End: June 24, 2024 Leona Parra MD Referring Provider Active Start : June 24, 2024 End: June 24, 2024 Team Status: Inactive Member Role Status Silvia Parra MD Primary Care Provider Active St art: July 09, 2024 End: July 09, 2024 Sherri Portillo GARNETT FEEDER, GARNETT FEEDER-C Attending Provider Active Start: July 09, 2024 End: July 09, 2024 Team Status: Inactive Member Role Status Dates Kenn Turcios GARNETT FEEDER, GARNETT FEEDER-C Referring Provider Active S tart: July 10, 2024 End: July 10, 2024 Yehuda Kennedy GARNETT FEEDER, GARNETT FEEDER-C Attending Provider Active S tart: July 10, 2024 End: July 10, 2024 Leona Parra MD Primary Care Provider Active St art: July 10, 2024 End: July 10, 2024 Team Status: Inactive Member Role Status Silvia Parra MD Primary Care Provider Active St art: July 16, 2024 End: July 16, 2024 Leona Parra MD Referring Provider Active Start : July 16, 2024 End: July 16, 2024 Dr. Ean Bush MD Attending Provider Active S tart: July 16, 2024 End: July 16, 2024 Team Status: Inactive Member Role Status Silvia Parra MD Primary Care Provider Active St art: July 19, 2024 End: July 19, 2024 Dr. Juan Banegas MD Attending Provider Active S tart: July 19, 2024 End: July 19, 2024 Team Status: Inactive Member Role Status Silvia Parra MD Primary Care Provider Active St art: September 04, 2024 End: September 04, 2024 Dr. Juan Banegas MD Attending Provider Active S tart: September 04, 2024 End: September 04, 2024 Team Status: Inactive Member Role Status Silvia Parra MD Primary Care Provider Active St art: September 04, 2024 End: September 04, 2024 Leona Parra MD Referring Provider Active Start : September 04, 2024 End: September 04, 2024 Dr. Juan Banegas MD Attending Provider Active S tart: September 04, 2024 End: September 04, 2024 Team Status: Inactive Member Role Status Silvia Parra MD Primary Care Provider Active St art: September 04, 2024 End: September 04, 2024 Leona Parra MD Referring Provider Active Start : September 04, 2024 End: September 04, 2024 Dr. Loc Thorne MD Attending Provider Active Start: September 04, 2024 End: September 04, 2024 Team Status: Inactive Member Role Status Silvia Parra MD Primary Care Provider Active St art: September 04, 2024 End: September 04, 2024 Dr. Loc Thorne MD Attending Provider Active Start: September 04, 2024 End: September 04, 2024 Dr. Loc Thorne MD Referring Provider Active Start: September 04, 2024 End: September 04, 2024 Team Status: Inactive Member Role Status Silvia Parra MD Primary Care Provider Active St art: October 02, 2024 End: October 02, 2024 Leona Parra MD Referring Provider Active Start : October 02, 2024 End: October 02, 2024 Rola Blue GARNETT FEEDER, GARNETT FEEDER-C Attending Provider Active Start: October 02, 2024 End: October 02, 2024 Team Status: Inactive Member Role Status Dates Leona Parra MD Primary Care Provider Active St art: October 13, 2024 End: October 13, 2024 RENETTA Carey NP Attending Provider Active S tart: October 13, 2024 End: October 13, 2024 RENETTA Carey NP Referring Provider Active S tart: October 13, 2024 End: October 13, 2024 Team Status: Inactive Member Role Status Dates Leona Parra MD Primary Care Provider Active St art: October 20, 2024 End: October 20, 2024 Leona Parra MD Referring Provider Active Start : October 20, 2024 End: October 20, 2024 Yehuda Kennedy NP, NP-Gerry Attending Provider Active S tart: October 20, 2024 End: October 20, 2024 Source Comments (unrecognize d section and content) In the event this informatio n is protected by the Federal Confidentiality of Alcohol and Drug Abuse Patient Records regulations: The Federal rules restrict any use of the information to criminally investigate or prosecute any alcohol or drug abuse patient.[facility] CenterIn the event this information is protected by the Federal Confidentiality of Alcohol and Drug Abuse Patient Records regulations: The Federal rules restrict any use of the information to criminally investigate or prosecute any alcohol or drug abuse patient.[facility] CenterIn the event this information is protected by the Federal Confidentiality of Alcohol and Drug Abuse Patient Records regulations: The Federal rules restrict any use of the information to criminally investigate or prosecute any alcohol or drug abuse patient.[facility] CenterIn the event this information is protected by the Federal Confidentiality of Alcohol and Drug Abuse Patient Records regulations: The Federal rules restrict any use of the information to criminally investigate or prosecute any alcohol or drug abuse patient.[facility] CenterIn the event this information is protected by the Federal Confidentiality of Alcohol and Drug Abuse Patient Records regulations: The Federal rules restrict any use of the information to criminally investigate or prosecute any alcohol or drug abuse patient.[facility] CenterIn the event this information is protected by the Federal Confidentiality of Alcohol and Drug Abuse Patient Records regulations: The Federal rules restrict any use of the information to criminally investigate or prosecute any alcohol or drug abuse patient.[facility] CenterIn the event this information is protected by the Federal Confidentiality of Alcohol and Drug Abuse Patient Records regulations: The Federal rules restrict any use of the information to criminally investigate or prosecute any alcohol or drug abuse patient.[facility] CenterIn the event this information is protected by the Federal Confidentiality of Alcohol and Drug Abuse Patient Records regulations: The Federal rules restrict any use of the information to criminally investigate or prosecute any alcohol or drug abuse patient.[facility] CenterIn the event this information is protected by the Federal Confidentiality of Alcohol and Drug Abuse Patient Records regulations: The Federal rules restrict any use of the information to criminally investigate or prosecute any alcohol or drug abuse patient.[facility] CenterIn the event this information is protected by the Federal Confidentiality of Alcohol and Drug Abuse Patient Records regulations: The Federal rules restrict any use of the information to criminally investigate or prosecute any alcohol or drug abuse patient.[facility] CenterIn the event this information is protected by the Federal Confidentiality of Alcohol and Drug Abuse Patient Records regulations: The Federal rules restrict any use of the information to criminally investigate or prosecute any alcohol or drug abuse patient.[facility] CenterIn the event this information is protected by the Federal Confidentiality of Alcohol and Drug Abuse Patient Records regulations: The Federal rules restrict any use of the information to criminally investigate or prosecute any alcohol or drug abuse patient.[facility] CenterIn the event this information is protected by the Federal Confidentiality of Alcohol and Drug Abuse Patient Records regulations: The Federal rules restrict any use of the information to criminally investigate or prosecute any alcohol or drug abuse patient.[facility] CenterIn the event this information is protected by the Federal Confidentiality of Alcohol and Drug Abuse Patient Records regulations: The Federal rules restrict any use of the information to criminally investigate or prosecute any alcohol or drug abuse patient.[facility] CenterIn the event this information is protected by the Federal Confidentiality of Alcohol and Drug Abuse Patient Records regulations: The Federal rules restrict any use of the information to criminally investigate or prosecute any alcohol or drug abuse patient.[facility] CenterIn the event this information is protected by the Federal Confidentiality of Alcohol and Drug Abuse Patient Records regulations: The Federal rules restrict any use of the information to criminally investigate or prosecute any alcohol or drug abuse patient.[facility] CenterIn the event this information is protected by the Federal Confidentiality of Alcohol and Drug Abuse Patient Records regulations: The Federal rules restrict any use of the information to criminally investigate or prosecute any alcohol or drug abuse patient.[facility] CenterIn the event this information is protected by the Federal Confidentiality of Alcohol and Drug Abuse Patient Records regulations: The Federal rules restrict any use of the information to criminally investigate or prosecute any alcohol or drug abuse patient.[facility] CenterIn the event this information is protected by the Federal Confidentiality of Alcohol and Drug Abuse Patient Records regulations: The Federal rules restrict any use of the information to criminally investigate or prosecute any alcohol or drug abuse patient.[facility] CenterIn the event this information is protected by the Federal Confidentiality of Alcohol and Drug Abuse Patient Records regulations: The Federal rules restrict any use of the information to criminally investigate or prosecute any alcohol or drug abuse patient.[facility] CenterIn the event this information is protected by the Federal Confidentiality of Alcohol and Drug Abuse Patient Records regulations: The Federal rules restrict any use of the information to criminally investigate or prosecute any alcohol or drug abuse patient.[facility] CenterIn the event this information is protected by the Federal Confidentiality of Alcohol and Drug Abuse Patient Records regulations: The Federal rules restrict any use of the information to criminally investigate or prosecute any alcohol or drug abuse patient.[facility] CenterIn the event this information is protected by the Federal Confidentiality of Alcohol and Drug Abuse Patient Records regulations: The Federal rules restrict any use of the information to criminally investigate or prosecute any alcohol or drug abuse patient.[facility] CenterIn the event this information is protected by the Federal Confidentiality of Alcohol and Drug Abuse Patient Records regulations: The Federal rules restrict any use of the information to criminally investigate or prosecute any alcohol or drug abuse patient.[facility] CenterIn the event this information is protected by the Federal Confidentiality of Alcohol and Drug Abuse Patient Records regulations: The Federal rules restrict any use of the information to criminally investigate or prosecute any alcohol or drug abuse patient.[facility] CenterIn the event this information is protected by the Federal Confidentiality of Alcohol and Drug Abuse Patient Records regulations: The Federal rules restrict any use of the information to criminally investigate or prosecute any alcohol or drug abuse patient.[facility] CenterIn the event this information is protected by the Federal Confidentiality of Alcohol and Drug Abuse Patient Records regulations: The Federal rules restrict any use of the information to criminally investigate or prosecute any alcohol or drug abuse patient.[facility] CenterIn the event this information is protected by the Federal Confidentiality of Alcohol and Drug Abuse Patient Records regulations: The Federal rules restrict any use of the information to criminally investigate or prosecute any alcohol or drug abuse patient.[facility] CenterIn the event this information is protected by the Federal Confidentiality of Alcohol and Drug Abuse Patient Records regulations: The Federal rules restrict any use of the information to criminally investigate or prosecute any alcohol or drug abuse patient.[facility] CenterIn the event this information is protected by the Federal Confidentiality of Alcohol and Drug Abuse Patient Records regulations: The Federal rules restrict any use of the information to criminally investigate or prosecute any alcohol or drug abuse patient.[facility] CenterIn the event this information is protected by the Federal Confidentiality of Alcohol and Drug Abuse Patient Records regulations: The Federal rules restrict any use of the information to criminally investigate or prosecute any alcohol or drug abuse patient.[facility] CenterIn the event this information is protected by the Federal Confidentiality of Alcohol and Drug Abuse Patient Records regulations: The Federal rules restrict any use of the information to criminally investigate or prosecute any alcohol or drug abuse patient.[facility] CenterIn the event this information is protected by the Federal Confidentiality of Alcohol and Drug Abuse Patient Records regulations: The Federal rules restrict any use of the information to criminally investigate or prosecute any alcohol or drug abuse patient.[facility] CenterIn the event this information is protected by the Federal Confidentiality of Alcohol and Drug Abuse Patient Records regulations: The Federal rules restrict any use of the information to criminally investigate or prosecute any alcohol or drug abuse patient.[facility] Care Team (unrecognized sect ion and content) Care Team Personnel Name: KENN TURCIOS APRN-NURSING UNIT CLERK Position: P4 Advanced Practice Nurse Med Service: Active Provider Member Role: Primary Care Physician Address: Address: [address] [place] [address]- Name: Thomas Lanerthai Del Rosario PT Position: P3 Scheduling - Psychiatric Aides Teacher Advanced Member Role: Other Name: APPLE BARNETT Member Role: Processing Associate Address: Address: [address] [place], [place] [id number]- Name: OANH FRAGOSO MD Member Role: Athletic Equipment Custodian Address: Address: [address] [place] [address]- Name: EAN BUSH MD Member Role: Oncologist Address: Address: [address] [place] [address]- Name: JANINE PAYNE MD Position: P3 Physician - Urologist Med Service: Admitting Member Role: Urologist Address: Address: [address] [place] [address] [address] [place] [address]- Care Team Related Persons Name: SHRUTHI GUEVARA Address: [address] [place] [address] [place] Goals (unrecognized section and content) Goals may be documented in a n alternate section FOR RECORDS PERTAINING TO PATIENTS WHO ARE OR HAVE BEEN ENROLLED IN A CHEMICAL DEPENDENCY/SUBSTANCEABUSE PROGRAM, SOME INFORMATION MAY BE OMITTED. This clinical summary was aggregated from multiple sources. Caution should be exercised in using it in the provision of clinical care. This summary normalizes information from multiple sources, and as a consequence, information in this document may materially change the coding, format and clinical context of patient data. In addition, data may be omitted in some cases. CLINICAL DECISIONS SHOULD BE BASED ON THE PRIMARY CLINICAL RECORDS. [facility]. provides no warranty or guarantee of the accuracy or completeness of information in this document.
== END 2024-10-20 23:59 | disposition home or self-care (01) ==
LOC: LAB 14:52
PROVIDERS: PCP Family Medicine; Referring Provider Nurse Practitioner Gerontology; Visit Provider Nurse Practitioner Gerontology
DX: N18.9 Chronic kidney disease, unspecified (principal); Z51.81 Encounter for therapeutic drug level monitoring; Z79.899 Other long term (current) drug therapy
CPT/HCPCS: 36415; 80048

== ENCOUNTER 2024-11-15 11:26 | Emergency (ER) | payer MEDICARE, SELFPAY ==
[2024-11-15] VITALS (7 sets, daily range): BP systolic 137–157; BP diastolic 68–73; PULSE 50–64; RESP 12–24; TEMP 36.5; O2SAT 97–99; BMI 22.8
[2024-11-15 13:15] LABS: Hematocrit 31.2 % (40-54); Hemoglobin 9.9 g/dL (13.0-16.5); Immature Granulocytes Count 0.320 X10^3/uL (0.0-0.0); Mean Corp Hgb Conc 31.7 g/dL (32-36); Mean Corpuscular Volume 87.6 fL (80-94); Mean Platelet Vol. 9.9 fl (6.2-12.0); NRBC Flagged by Analyzer 0.1 % (0-5); POSITIVE DIFFERENTIAL YES; POSITIVE MORPHOLOGY YES; Platelet Count 218 K/mm3 (150-450); RBC Distribution Width CV 17.4 % (11.6-14.6); RBC Distribution Width SD 55.8 fl (35.1-43.9); Red Blood Count 3.56 M/mm3 (4.6-6.2); White Blood Count 28.1 K/mm3 (4.4-11.0)
[2024-11-15 13:16] LABS: Differential Indicated SCAN CRITERIA MET
[2024-11-15 13:25] LABS: Anion Gap 9 (5-15); BUN 46 mg/dL (4-19); BUN/Creat Ratio 26.3 RATIO (10-20); Calcium,Total 9.0 mg/dL (7.6-11.0); Carbon Dioxide 26.2 mmol/L (21.0-32.0); Chloride 107 mmol/L (98-108); Estimated Creatinine Clearance 31.09 ml/min (50-250); Glucose 118 mg/dL (70-99); Potassium 4.5 mmol/L (3.3-5.1)
[2024-11-15 13:36] LABS: Smudge Cells 1+
== END 2024-11-15 15:26 | disposition home or self-care (01) ==
PROVIDERS: Emergency Provider Emergency Medicine; PCP Family Medicine; Visit Provider Emergency Medicine
DX: J18.9 Pneumonia, unspecified organism (principal); I13.0 Hypertensive heart and chronic kidney disease with heart failure and stage 1 through stage 4 chronic kidney disease, or unspecified chronic kidney disease; I50.22 Chronic systolic (congestive) heart failure; N18.30 Chronic kidney disease, stage 3 unspecified; I25.2 Old myocardial infarction; Z95.0 Presence of cardiac pacemaker
CPT/HCPCS: 71046; 80048; 85025; 93005; 94640; 99284; A4216

== ENCOUNTER → 2024-12-11 | Outpatient (CLI) | payer MEDICARE, SELFPAY | END | disposition home or self-care (01) | LOC: PSN 09:06 | PROVIDERS: PCP Family Medicine; Referring Provider Internal Medicine Critical Care Medicine; Visit Provider Internal Medicine Critical Care Medicine | DX: R05.3 Chronic cough (principal) | CPT/HCPCS: 94060; 94726; 94729 ==

== ENCOUNTER → 2025-01-06 | Outpatient (CLI) | payer MEDICARE, SELFPAY ==
[2025-01-06 13:08] LABS: Anion Gap 9 (5-15); BUN 44 mg/dL (4-19); BUN/Creat Ratio 26.8 RATIO (10-20); Calcium,Total 9.3 mg/dL (7.6-11.0); Carbon Dioxide 27.1 mmol/L (21.0-32.0); Chloride 110 mmol/L (98-108); Glucose 91 mg/dL (70-99); Potassium 4.7 mmol/L (3.3-5.1)
[2025-01-11 00:07] LABS: Angiotensin Convert Enzyme 54 U/L (14-82); Ash, White <0.10 kU/L (Class 0); Aspirgillus flavus Negative (Neg:<1:1); Aspirgillus fumigatus Negative (Neg:<1:1); Aspirgillus niger Negative (Neg:<1:1); Black Walnut <0.10 kU/L (Class 0); Cat Hair / Dander,Stand <0.10 kU/L (Class 0); Cedar, Mountain <0.10 kU/L (Class 0); Cockroach, American <0.10 kU/L (Class 0); Dog Epithelia <0.10 kU/L (Class 0); Elm, American White <0.10 kU/L (Class 0); Mulberry, White <0.10 kU/L (Class 0); Oak, White <0.10 kU/L (Class 0); Pigweed, Rough <0.10 kU/L (Class 0); Ragweed, Short/Common <0.10 kU/L (Class 0); Sycamore, American <0.10 kU/L (Class 0)
== END | disposition home or self-care (01) ==
LOC: LAB 11:24
PROVIDERS: Nurse Practitioner Gerontology; PCP Family Medicine; Referring Provider Nurse Practitioner Family; Visit Provider Nurse Practitioner Family
DX: N18.32 Chronic kidney disease, stage 3b (principal); Z51.81 Encounter for therapeutic drug level monitoring; Z79.899 Other long term (current) drug therapy; R05.3 Chronic cough
CPT/HCPCS: 36415; 80048; 82164; 82785; 86003; 86606

== ENCOUNTER → 2025-01-13 | Outpatient (CLI) | payer MEDICARE, SELFPAY ==
--- NOTE | 2025-01-13 13:33 | CT_ITS ---
PROCEDURE: ABDOMEN/PELVIS WITH CONTRAST 01/13/2025 REASON FOR EXAM: CLL TECHNIQUE: Procedure Code: [id number] Modality: CT Procedure: ABDOMEN/PELVIS WITH CONTRAST Coronal and Sagittal reconstruction series were provided. CONTRAST: Isovue 370 VOLUME: 93 mL One or more dose reduction techniques were used (e.g., Automated exposure control, adjustment of the mA and/or kV according to patient size, use of iterative reconstruction technique. RADIATION DOSE SUMMARY: CTDlvol: 49.75 mGy DLP: 1410.04 mGycm COMPARISON: CT abdomen and pelvis without IV contrast, 07/09/2024. MRI with and without contrast, 04/20/2023. FINDINGS: Lung bases: There is stable scarring in both lung bases. There are no pleural effusions. The heart is enlarged. There is no pericardial effusion. There are pacemaker wires in both right cardiac chambers. Liver: There are multiple stable hepatic cysts. Gallbladder: There are multiple small gallstones. Spleen: Heterogeneous lobulated appearance of the spleen not significantly changed. There is a splenic hemangioma. Pancreas: Diffuse fatty atrophy. Adrenals: Normal. Kidneys: There is severe hydronephrosis bilaterally with significant ureteral ectasia extending to the bladder. There is contrast pooling in the dilated pelvicalyceal system. Bladder: There is thickening of the bladder wall and there is a large anterior bladder diverticulum. Reproductive Organs: Suspect prostatectomy and vesiculectomy. There is no free fluid in the pelvis. There is no inguinal lymphadenopathy. Bowel: There are scattered colonic diverticuli without evidence of acute inflammation. There is stool throughout the colon. Appendix: Normal. Lymph nodes: There is retroperitoneal lymphadenopathy, most significant at the level of the renal arteries. There is left periaortic lymphadenopathy measuring 3.6 x 3.2 cm (was 5.1 x 4.0 cm). There is interaortocaval lymphadenopathy, measuring 3.7 x 2.2 cm (was 4.2 x 2.2 cm). There is mild mesenteric lymphadenopathy. Vasculature: There is extensive calcific vascular disease of the abdominal aorta. Peritoneum / Retroperitoneum: Vascular embolization coil is noted in the left upper quadrant of the abdomen. There is no free fluid in the abdomen. There is an umbilical hernia, containing normal fat, measuring 1.8 cm in diameter. Bones: There is vertebral plana at T12 with a large retropulsed fragment with resultant central canal stenosis. There is severe diffuse degenerative disc disease of the lower thoracic and lumbar spine there is moderate dextroscoliosis of the lumbar spine. There is degenerative grade 1 retrolisthesis of L2 on L3 and L3 on L4. The appearance is not significantly changed since the prior exam. CT/Abdomen/Pelvis WITH Contrast IMPRESSION: 1. Significant improvement in mesenteric and retroperitoneal lymphadenopathy. 2. Severe bilateral hydronephrosis and evidence of bladder outlet obstruction. Not significantly changed. 3. Status post prostatectomy and vesiculectomy. 4. Severe degenerative disc disease of the lower thoracic and lumbar spine. T here is vertebral plana at T12 with a retropulsed fragment causing central canal stenosis. Not significantly changed. 5. Other findings as noted, not significantly changed. Reading Location: [id number]
== END | disposition home or self-care (01) ==
LOC: CT 13:28
PROVIDERS: PCP Family Medicine; Referring Provider Internal Medicine Medical Oncology; Visit Provider Internal Medicine Medical Oncology
DX: D50.9 Iron deficiency anemia, unspecified (principal); Z85.6 Personal history of leukemia
CPT/HCPCS: 74177; Q9967; A4216

== ENCOUNTER → 2025-02-05 | Outpatient (CLI) | payer MEDICARE, SELFPAY ==
--- NOTE | 2025-02-05 07:51 | CT_ITS ---
PROCEDURE: CHEST WITHOUT CONTRAST 02/05/2025 REASON FOR EXAM: 6 MONTHS COUGH TECHNIQUE: Chest CT without contrast. Coronal and Sagittal reconstruction series were provided. One or more dose reduction techniques were used (e.g., Automated exposure control, adjustment of the mA and/or kV according to patient size, use of iterative reconstruction technique RADIATION DOSE SUMMARY: CTDlvol: 12.12 mGy DLP: 466.47 mGycm COMPARISON: None. FINDINGS: Lower neck:The thyroid gland is normal. There is bilateral supraclavicular lymphadenopathy. Mediastinum:There is diffuse mediastinal and bilateral hilar lymphadenopathy, index node, a subcarinal lymph node, measuring 2.7 x 2.0 cm. Heart and thoracic aorta:The heart is enlarged. There is no pericardial effusion. There is significant calcific vascular disease of the coronary arteries and thoracic aorta. There are pacemaker leads in both right cardiac chambers. Esophagus:Normal. Upper Abdomen:There are multiple hepatic cysts. There is severe bilateral hydronephrosis. There is radiodense material in an upper pole calyx of the left kidney, may be milk of calcium. There is metallic artifact in the left upper quadrant due to therapeutic thrombosis of an abnormal vessel probably a splenic artery aneurysm. There is calcific vascular disease of the abdominal aorta. There is upper intra-abdominal and retroperitoneal lymphadenopathy, index node, a left periaortic lymph node measuring 2.3 x 2.1 cm. Chest wall:There is a pacemaker generator in the left upper chest wall. There is bilateral axillary lymphadenopathy. There is moderate wedge compression of T7 and a vertebra plana of T12 with a large retropulsed fragment with a resultant focal 50% stenosis of the spinal canal. Lungs, airways and pleura: There is moderate basilar predominant chronic interstitial lung disease with subpleural reticulation and traction bronchiectasis. There are no pulmonary nodules or masses. There are no pleural effusions. CT/Chest without Contrast IMPRESSION: 1. Diffuse cervical, axillary, mediastinal, hilar, upper intra-abdominal and r etroperitoneal lymphadenopathy. Consistent with lymphoma. 2. Calcific vascular disease. 3. Vertebral plana at T12 with a 50% stenosis of the spinal canal. 4. Other findings as noted. Reading Location: [place] [id number]
== END | disposition home or self-care (01) ==
LOC: CT 07:46
PROVIDERS: PCP Family Medicine; Referring Provider Nurse Practitioner Family; Visit Provider Nurse Practitioner Family
DX: R05.3 Chronic cough (principal)
CPT/HCPCS: 71250; 94667

== ENCOUNTER → 2025-02-11 | Outpatient (CLI) | payer MEDICARE, SELFPAY | END | disposition home or self-care (01) | LOC: LABSPEC 16:00 | PROVIDERS: PCP Family Medicine; Referring Provider Nurse Practitioner Family; Visit Provider Nurse Practitioner Family | DX: R05.3 Chronic cough (principal) | CPT/HCPCS: 87070; 87077; 87186; 87205 ==

== ENCOUNTER → 2025-02-24 | Outpatient (CLI) | payer MEDICARE, SELFPAY | END | disposition home or self-care (01) | LOC: MTLAB 09:58 | PROVIDERS: PCP Family Medicine; Referring Provider Family Medicine; Visit Provider Family Medicine | DX: E11.9 Type 2 diabetes mellitus without complications (principal) | CPT/HCPCS: 36415; 83036 ==

== ENCOUNTER 2025-04-07 12:29 | Emergency (ER) | payer MEDICARE, SELFPAY ==
[2025-04-07] VITALS (12 sets, daily range): BP systolic 122–176; BP diastolic 60–79; PULSE 60–78; RESP 13–25; TEMP 36.6–37.5; O2SAT 94–98; BMI 23.6
--- NOTE | 2025-04-07 13:16 | EKG12_ITS ---
Test Reason : DEFIB FIRING Blood Pressure : */* mmHG Vent. Rate : 69 BPM Atrial Rate : 69 BPM P-R Int : 144 ms QRS Dur : 164 ms QT Int : 470 ms P-R-T Axes : 60 187 23 degrees QTcB Int : 503 ms Atrial-sensed ventricular-paced rhythm Biventricular pacemaker detected Abnormal ECG When compared with ECG of 15-Nov-2024 11:33, Vent. rate has decreased by 4 bpm Confirmed by VEE MCKEON, SHASHANK ([id number]), copy editor CINTHIA MCGARRY ([id number]) on 04/08/2025 1:58:16 PM Referred By: Confirmed By: SHASHANK BAXTER MD
--- NOTE | 2025-04-07 13:23 | EX.ED.DYSGE1 ---
HPI History of Present Illness Chief Complaint: Chest Other Detail of Chief Complaint: Defibrillator discharge Informant: patient Narrative Narrative: Patient presents to the emergency department with defibrillator discharging. Initially was awoken about 5:30 AM with the discharge. Subsequently had a second discharge about 10:30 AM. He denies any chest pain or shortness of breath. He is not been ill. Defibrillator was placed at [facility] years ago. [facility] Medical History (Updated 04/07/25 @ 15:[address] Ian Lujan, DO) Ventricular fibrillation Chronic HFrEF (heart failure with reduced ejection fraction) Cancer ICD (implantable cardioverter-defibrillator) in place Myocardial infarct Personal history of chronic lymphocytic leukemia HFrEF (heart failure with reduced ejection fraction) CKD (chronic kidney disease), stage III Back pain due to injury High cholesterol Orthostatic hypotension Restless leg syndrome Iron deficiency anemia LBBB (left bundle branch block) Subdural hematoma Peripheral neuropathy Non-ischemic cardiomyopathy Essential hypertension Pacemaker Ventricular tachycardia CLL (chronic lymphocytic leukemia) Prostate cancer Home Medications ?Medication ?Instructions ?Recorded ?Last Taken ?Type cholecalciferol (vitamin D3) 25 50 mcg PO DAILY 08/09/16 03/31/23 History mcg (1,000 unit) capsule (Vitamin D3) zinc acetate 50 mg (zinc) capsule 50 mg PO DAILY 08/24/22 03/31/23 History atorvastatin 10 mg tablet 10 mg PO DAILY 03/04/23 03/30/23 History gabapentin 100 mg capsule 200 mg PO QAM 07/10/24 Unknown History potassium chloride 10 mEq 10 meq PO DAILY #90 caps 09/09/24 Unknown Rx capsule,extended release carvedilol 12.5 mg tablet 25 mg PO BID 10/02/24 Unknown History sacubitril 49 mg-valsartan 51 mg 1 tab PO BID Pt has large supply 10/20/24 Unknown Rx tablet (Entresto) from [facility] tabs albuterol sulfate 90 mcg/actuation 2 inh inhalation Q4H PRN shortness 11/15/24 Unknown Rx aerosol inhaler of breath or wheezing #8.5 grams oxybutynin chloride 10 mg 10 mg PO DAILY 11/17/24 Unknown History tablet,extended release 24 hr furosemide 40 mg tablet 40 mg PO QDAY 12/04/24 Unknown History solifenacin 5 mg tablet 5 mg PO QDAY 12/04/24 Unknown History budesonide-formoterol HFA 160 2 puff inhalation BID #10.2 grams 01/06/25 Unknown Rx mcg-4.5 mcg/actuation aerosol inhaler (Breyna) fluticasone propionate 50 2 spray intranasal QDAY #16 grams 01/06/25 Unknown Rx mcg/actuation nasal spray,suspension (Flonase Allergy Relief) polysaccharide iron complex 150 mg 150 mg PO DAILY #30 caps 01/20/25 Unknown Rx iron capsule (Ferrex) ipratropium bromide 42 mcg (0.06 2 spray intranasal TID #15 mL 02/03/25 Unknown Rx %) nasal spray montelukast 10 mg tablet 10 mg PO QDAY #90 tabs 02/03/25 Unknown Rx (Singulair) pep device with training #1 ea 02/03/25 Unknown Rx loratadine 10 mg tablet 10 mg PO QDAY #30 tabs 03/13/25 Unknown Rx Allergy/AdvReac Type Severity Reaction Status Date / Time lisinopril AdvReac Unknown cough Verified 04/07/25 12:31 Family History Mother CVA (cerebral vascular accident) Hypertension Diabetes Father Ischemic heart disease Diabetes Surgical History S/P TURP Status post laser lithotripsy of ureteral calculus History of left heart catheterization (09/22/15) Splenic artery aneurysm Cardiac 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 therapy defibrillator ([employer]D) in place (~09/2015) History of colonoscopy History of arthroplasty of finger of left hand Social History household members: spouse Smoking Status: Never smoker alcohol intake: never substance use type: does not use caffeine: Yes Type: coffee Number of servings: 3 ROS ROS ED Review of Systems ROS Unobtainable: other Constitutional Constitutional ED: Reports lethargy; Denies chills, fever(s), sweats or weight loss Eyes Eyes: Denies blurry vision, change in vision or diplopia ENT ENT ED: Denies rhinorrhea or sore throat Cardiovascular Cardiovascular: Reports other Details: Defibrillator discharge x 3 ; Denies chest pain, orthopnea or racing heartbeat Respiratory/Chest Respiratory/Chest: Reports dyspnea and dyspnea on exertion; Denies cough, orthopnea or sputum Gastrointestinal Gastrointestinal: Denies abdominal pain, diarrhea, nausea or vomiting Genitourinary Genitourinary ED: Denies dysuria, hematuria or urinary frequency Musculoskeletal Musculoskeletal: Denies arthralgias, back pain, myalgias or neck pain Integumentary Denies abscess, Abrasions or rash Neurologic Neurologic: Denies headache(s) or weakness Psychiatric Psychiatric: Denies anxiety, depression or suicidal thoughts Endocrine Endocrinology: Denies polydipsia, polyphagia or polyuria Hematologic/Lymphatic Hematologic/Lymphatic: Denies easy bleeding, easy bruising or lymphadenopathy Allergic/Immunologic Allergic/Immunologic ED: Denies mouth swelling, tongue swelling or urticaria EXAM Physical Exam Const Vital Signs: 04/07/25 12:31 04/07/25 12:35 04/07/25 13:26 Temperature 99.3 F H Temperature Source Oral Pulse Rate 73 Respiratory Rate 18 Respiratory Pattern Normal Blood Pressure 143/69 H Blood Pressure Mean 93 Blood Pressure Source Pulse Ox 97 Oxygen Delivery Method Room Air Room Air 04/07/25 13:40 04/07/25 13:59 04/07/25 14:07 Temperature 99.5 F H Temperature Source Oral Pulse Rate 67 66 64 Respiratory Rate 13 17 14 Respiratory Pattern Blood Pressure 135/71 H 130/79 H 127/60 H Blood Pressure Mean 92 96 82 Blood Pressure Source Monitor Pulse Ox 97 95 97 Oxygen Delivery Method Room Air Room Air 04/07/25 14:52 Temperature Temperature Source Pulse Rate 64 Respiratory Rate 14 Respiratory Pattern Blood Pressure 122/65 H Blood Pressure Mean 84 Blood Pressure Source Pulse Ox 97 Oxygen Delivery Method Room Air Positive well nourished and well developed General Appearance ED: well developed and NAD HEENT Reports TM's clear and moist mucous membranes normocephalic and atraumatic; Negative for trauma or tenderness Tympanic Membrane ED: Yes TM's clear Eyes PERRL and EOMs intact bilaterally General Eye ED: Negative for pale conjunctiva or scleral icterus Neck no lymphadenopathy, supple and no JVD General: Negative for tenderness Chest Wall inspection of chest normal and palpation of chest normal Chest: Negative for tenderness Resp normal respiratory effort and clear to auscultation bilaterally Effort and Inspection: Negative for respiratory distress or pain with movement Auscultation: Negative for rhonchi, wheezes or diminished lung sounds Cardio regular rate, regular rhythm, S1 normal heart sound, S2 normal heart sound and no murmurs Rate: regular rate Heart Sounds: murmur Peripheral Pulses: pulses 2+ throughout GI normal to inspection, nondistended, normoactive bowel sounds, soft to palpation, non-tender, non-distended and no masses Back/Spine no CVA tenderness and no thoracic nor lumbar tenderness Extremity normal to inspection General Extremety ED: Negative for edema General Extremity: Negative for edema Neuro oriented x3, CN's II-XII intact bilaterally, no sensory deficits noted and gait normal Sensorium / Orientation: awake, alert, oriented to person, oriented to place and oriented to time Motor Exam: strength 5/5 throughout and strength abnormal Psych mental status grossly normal Skin no rashes or lesions noted and no wounds MDM MDM MDM Narrative Medical decision making narrative: Patient presents to the emergency department with defibrillator discharging x 3. The pacer defibrillator was interrogated and noted that he had 3 episodes of fine V-fib that were successfully defibrillated. I discussed case with cardiology on-call Dr. Banegas who recommended amiodarone 300 mg IV. Recommended transfer to tertiary [facility] where electrophysiology is available. Patient would like to go to [facility] and will contact their transfer team. Will EKG obtained arrival showed a paced rhythm with rate of 69 bpm. Labs will be ordered and are currently pending. CBC with differential obtained showed an elevated white blood cell count of 45,000 and consistent with his history of CLL. Hemoglobin 11.5 and platelet count 299. Chemistries unremarkable. BUN 58 and creatinine 2.18. First troponin was 188 and 2-hour delta was 161. Chest x-ray unremarkable. Discussed case with [facility] Nurse practitioner covering for freight associate who was going to discuss case with the freight associate who is in the operating room. Awaiting callback from [facility] Cardiology. I spoke with Dr. Zimmerman who did not feel patient needed anything emergent from an EP standpoint but did recommend starting amiodarone 400 twice daily and felt that patient would need a cardiac evaluation including stress testing and possibly heart cath. He asked that patient come to their facility but could go to the floor under the hospitalist and they would he evaluate and treat from there. Care of patient turned over to evening physician awaiting transfer to their facility. Lab Data Attestation: I reviewed the patient's lab results. Labs: Laboratory Results - last 24 hr 04/07/25 04/07/25 12:15 14:15 WBC 45.1 H* RBC 4.26 L Hgb 11.5 L Hct 37.7 L MCV 88.5 MCH 27.0 MCHC 30.5 L RDW Std Deviation 57.1 H RDW Coeff of Willie 17.4 H Plt Count 299 MPV 10.4 Immature Gran % (Auto) 0.200 Neut % (Auto) 16.2 L Lymph % (Auto) 78.2 H [place] % (Auto) 4.4 Eos % (Auto) 0.6 Baso % (Auto) 0.4 Absolute Neuts (auto) 7.3 Absolute Lymphs (auto) 35.24 H Nucleated RBC % 0 Diff Path Review May foll Sodium 142 Potassium 4.2 Chloride 105 Carbon Dioxide 25.3 Anion Gap 12 BUN 58 H Creatinine 2.18 H Estim Creat Clear Calc 25.11 L Est GFR (MDRD) Non-Af 29 L BUN/Creatinine Ratio 26.6 H Glucose 115 H Calcium 9.7 Troponin T High Sens 188 H* Troponin T Hi Sens 2 Hr 161 H* Radiography Diagnostic Testing: Clinical Impression(s) from Imaging Studies Chest X-Ray 04/07/25 13:35 IMPRESSION: Left thoracic transvenous pacemaker/AICD device with leads appears unchanged. Metallic coils of the left upper quadrant of the abdomen are again noted. Lungs are hypoinflated, with mild areas of bibasilar atelectasis seen. No evidence of pulmonary edema. No pleural effusion is clearly seen. No pneumothorax is evident. The cardiomediastinal silhouette is remarkable for a tortuous and prominently calcified aorta. No evidence of cardiomegaly. No significant interval osseous change is noted. Reading Location: [address] Discharge Plan Triage Chief Complaint: Chest Other ED Provider: Ian Lujan Dx/Rx/DC Orders Clinical Impression: Ventricular fibrillation, Encounter for testing following appropriate discharge of implantable cardioverter-defibrillator (ICD) Prescriptions: No Action zinc acetate 50 mg (zinc) capsule 50 mg PO DAILY gabapentin 100 mg capsule 200 mg PO QAM carvedilol 12.5 mg tablet 25 mg PO BID Entresto 49-51 mg tablet 1 tab PO BID Qty: 180 3RF oxybutynin chloride 10 mg tablet extended release 24hr 10 mg PO DAILY furosemide 40 mg tablet 40 mg PO QDAY solifenacin 5 mg tablet 5 mg PO QDAY budesonide-formoterol [Breyna] 160-4.5 mcg/actuation HFA aerosol inhaler 2 puff inhalation BID Qty: 10.2 3RF fluticasone propionate [Flonase Allergy Relief] 50 mcg/actuation spray,suspension 2 spray intranasal QDAY Qty: 16 1RF Rx Instructions: administer into each nostril polysaccharide iron complex [Ferrex 150] 150 mg iron capsule 150 mg PO DAILY Qty: 30 4RF montelukast [Singulair] 10 mg tablet 10 mg PO QDAY Qty: 90 3RF (DME) pep device with training See Rx Instructions .ROUTE .MEDSUPPLY Qty: 1 0RF Rx Instructions: As directed ipratropium bromide 42 mcg (0.06 %) spray,non-aerosol 2 spray intranasal TID Qty: 15 5RF Rx Instructions: administer into each nostril loratadine 10 mg tablet 10 mg PO QDAY Qty: 30 11RF cholecalciferol (vitamin D3) [Vitamin D3] 1,000 UNIT capsule 50 mcg PO DAILY atorvastatin 10 mg tablet 10 mg PO DAILY albuterol sulfate 90 mcg/actuation HFA aerosol inhaler 2 inh inhalation Q4H PRN (Reason: shortness of breath or wheezing) Qty: 8.5 0RF potassium chloride 10 mEq capsule, extended release 10 meq PO DAILY Qty: 90 3RF Primary Care Provider: Leona Parra Referrals: Leona Parra MD [Primary Care Provider, Family Practice] Print Language: Guamanian Disposition Disposition: DC/Tx to Another Type of HCF
[2025-04-07 13:29] LABS: Hematocrit 37.7 % (40-54); Hemoglobin 11.5 g/dL (13.0-16.5); Immature Granulocytes Count 0.110 X10^3/uL (0.0-0.0); Mean Corp Hgb Conc 30.5 g/dL (32-36); Mean Corpuscular Volume 88.5 fL (80-94); Mean Platelet Vol. 10.4 fl (6.2-12.0); NRBC Flagged by Analyzer 0 % (0-5); POSITIVE COUNT YES; POSITIVE DIFFERENTIAL YES; POSITIVE MORPHOLOGY YES; Platelet Count 299 K/mm3 (150-450); RBC Distribution Width CV 17.4 % (11.6-14.6); RBC Distribution Width SD 57.1 fl (35.1-43.9); Red Blood Count 4.26 M/mm3 (4.6-6.2); White Blood Count 45.1 K/mm3 (4.4-11.0)
[2025-04-07] MEDS: 0.9% Normal Saline (1000mL) 1,000 ML 150 ML IV ×2 (13:30→22:58)
--- NOTE | 2025-04-07 13:35 | RAD_ITS ---
PROCEDURE: CHEST 1 VIEW (PORTABLE) 04/07/2025 REASON FOR EXAM: CHEST PAIN TECHNIQUE: Frontal view of the chest. COMPARISON: Chest x-ray of 11/15/2024. RAD/Chest 1 View (Portable) IMPRESSION: Left thoracic transvenous pacemaker/AICD device with leads appears unchanged. Metallic coils of the left upper quadrant of the abdomen are again noted. Lungs are hypoinflated, with mild areas of bibasilar atelectasis seen. No evidence of pulmonary edema. No pleural effusion is clearly seen. No pneumothorax is evident. The cardiomediastinal silhouette is remarkable for a tortuous and prominently c alcified aorta. No evidence of cardiomegaly. No significant interval osseous change is noted. Reading Location: [id number]
[2025-04-07] MEDS: Amiodarone 300 MG in Dextrose 5%-Water (100mL Bag) 100 ML 600 MG IV BOLUS (13:40)
[2025-04-07 14:14] LABS: Anion Gap 12 (5-15); BUN 58 mg/dL (4-19); BUN/Creat Ratio 26.6 RATIO (10-20); Calcium,Total 9.7 mg/dL (7.6-11.0); Carbon Dioxide 25.3 mmol/L (21.0-32.0); Chloride 105 mmol/L (98-108); Estimated Creatinine Clearance 25.11 ml/min (50-250); Glucose 115 mg/dL (70-99); Potassium 4.2 mmol/L (3.3-5.1)
[2025-04-07 14:16] LABS: Troponin T High Sensitivity 188 ng/L (<=22)
--- NOTE | 2025-04-07 14:16 | ED.RN ---
Critical troponin received from lab of 188. Dr. Lujan notified.
[2025-04-07 14:49] LABS: Troponin T High Sens 2 HR 161 ng/L (<=22)
--- NOTE | 2025-04-07 19:10 | PCA ---
bed assingment [facility] [id number] [phone] local squad arranged for transport
[2025-04-07 20:12] LABS: Troponin T High Sens 4 HR 145 ng/L (<=22)
== END 2025-04-07 23:45 | disposition other institution (70) ==
PROVIDERS: Emergency Provider Emergency Medicine; PCP Family Medicine; Visit Provider Emergency Medicine
DX: I49.01 Ventricular fibrillation (principal); I13.0 Hypertensive heart and chronic kidney disease with heart failure and stage 1 through stage 4 chronic kidney disease, or unspecified chronic kidney disease; I50.22 Chronic systolic (congestive) heart failure; N18.30 Chronic kidney disease, stage 3 unspecified; E78.00 Pure hypercholesterolemia, unspecified; Z95.810 Presence of automatic (implantable) cardiac defibrillator; Z04.89 Encounter for examination and observation for other specified reasons; Z79.899 Other long term (current) drug therapy; Z85.71 Personal history of Hodgkin lymphoma
CPT/HCPCS: 71045; 80048; 84484; 85025; 93005; 96361; 96365; 99285; A4216

== ENCOUNTER → 2025-04-23 | Outpatient (CLI) | payer MEDICARE, SELFPAY ==
[2025-04-23 12:41] LABS: Anion Gap 10 (5-15); BUN 61 mg/dL (4-19); BUN/Creat Ratio 21.9 RATIO (10-20); Calcium,Total 9.3 mg/dL (7.6-11.0); Carbon Dioxide 25.9 mmol/L (21.0-32.0); Chloride 103 mmol/L (98-108); Glucose 161 mg/dL (70-99); Potassium 4.5 mmol/L (3.3-5.1)
== END | disposition home or self-care (01) ==
LOC: MTLAB 10:43
PROVIDERS: PCP Family Medicine; Referring Provider Nurse Practitioner Family; Visit Provider Nurse Practitioner Family
DX: R42 Dizziness and giddiness (principal); Z51.81 Encounter for therapeutic drug level monitoring; Z79.899 Other long term (current) drug therapy
CPT/HCPCS: 36415; 80048